=== PATIENT | female | born 1970 | race African-American/Black ===

== ENCOUNTER 2016-08-04 09:28 | Inpatient (IN) | payer OTHER ==
[~2016-08-04] VITALS: Ht 162.6 cm; Wt 68.0 kg
[2016-08-04] VITALS (13 sets, daily range): BP systolic 88–131; BP diastolic 39–85
[~2016-08-04 09:28] MED LIST: ATORVASTATIN CA20 MG ORAL; CARAFATE1 G1 ORAL; CYMBALTA20 MG ORAL; DIFLUCAN100 MG ORAL; DULOXETINE HCL60 MG; GABAPENTIN300 MG; HUMALOG100 UNIT/4 SUBQ; LANTUS5 UNITS SUBQ; LEVEMIR FL100 UNIT/1 SUBQ; LEXAPRO20 MG ORAL; LISINOPRIL5 MG ORAL; Lidocaine Hcl ORAL; NORCO 5-325 TA1 EACH ORAL; NORVASC5 MG ORAL; NOVOLOG MI100 UNIT/3 SUBQ; PANTOPRAZOLE SO20 MG; PRINIVIL20 MG ORAL; PROTONIX40 M2 GT; PROTONIX40 MG ORAL; ZESTRIL10 MG ORAL; ZOFRAN4 MG ORAL
--- NOTE | 2016-08-04 09:47 | Emergency Room Report ---
History of Present Illness General Chief Complaint: Abnormal Labs Source: EMS Present Illness HPI 45 YO F presents with "high blood sugar" >500 per EMS. EMS states family called 911. Patient didnt want to go to hospital/ER. Took insulin right before EMS arrival. Patient/family not providing additional info now. Are not present in ED. Review of EMR indicates multiple previous admissions for DKA with ICU admission. Allergies: Coded Allergies: No Known Allergies (Unverified , 04/24/14) Patient History Limited by: medical condition Past Medical History: DM Past Surgical History: unable to obtain Pertinent Family History: unable to obtain Nursing Documentation-PMH Hx Hypertension: Yes Hx Pacemaker: No Hx Diabetes: Yes Hx Cancer: No Hx Gastrointestinal Problems: Yes Hx Neurological Problems: No Hx Concentration Difficulty: No Review of Systems All Other Systems: limited - Unable to obtain Physical Exam Vital Signs Date Time Temp Pulse Resp B/P Pulse Ox O2 Delivery O2 Flow Rate FiO2 08/04/16 09:10 97.0 112 21 116/58 100 Room Air Sp02 EP Interpretation: reviewed, abnormal General Appearance: normal inspection, non-toxic, mild distress, lethargic, other - Patient responds to verbal stimuli, looks at me, moans, closes eyes Head: normocephalic, atraumatic Eyes: bilateral eye EOMI, bilateral eye PERRL ENT: normal ENT inspection, hearing grossly normal, normal pharynx, no angioedema, normal voice, uvula midline, moist mucus membranes Neck: normal inspection, full range of motion, supple, no meningismus, no bony tend Respiratory: normal inspection, lungs clear, normal breath sounds, no respiratory distress, no retraction, no wheezing Cardiovascular #1: normal peripheral pulses, regular rate, rhythm, no edema, tachycardia Gastrointestinal: normal inspection, normal bowel sounds, non tender, soft, no mass, no guarding, no hernia Genitourinary: no CVA tenderness Musculoskeletal: normal inspection, back normal, normal range of motion, Dontrell' s Sign negative Neurologic: normal inspection, responsive, educational speech language clinician III-XII nml as tested Skin: normal inspection, normal color, no rash Procedures Critical Care Time Critical Care Time CC time 30 minutes Care for a 45YOF with known IDDM and multiple admissions for DKA for elevated glucose, likely DKA Patient is altered. VS stable, mild tachycardia. Afebrile DDx includes infection as cause, non-compliance Patient is disoriented, no obvious sign of trauma. Comprehensive physical exam completed, atraumatic. Unreliable history from patient. Labs include toxicology and chem panel, EKG 12 lead and constant cardiac rhythm strip monitoring, IV established. Airway adequately maintained by patient upon arrival. EKG reveals NSR with sinus tachycardia Peripheral IV access established with wide bore IV boluses running Will give empiric insulin dose given history of DKA, patient too critical to wait for delay from lab to produce CMP Physician spent 30 minutes of direct critical care time monitoring patient's respiratory, cardiac and neurological status, reassessment, review of imaging, labs and discussion with attending hospitalist. Does not include procedures Medical Decision Making Diagnostic Impression: Primary Impression: Acidosis, metabolic Additional Impressions: DKA (diabetic ketoacidoses) Qualified Codes: E13.10 - Other specified diabetes mellitus with ketoacidosis without coma PERLA (acute kidney injury) Hyperkalemia ER Course A: DKA with PERLA Labs: ABG shows metabolic acidosis. PaO2 is normal. K 6.3, AG 48. SerumCr 4. CXR: No PNA UA: No UTI - 2 amps bicarb given in ED as pH <7 - total of 4L NS bolus given - Insulin 5U given followed by insulin drip - No leuks or fever so unlikely infection as cause of DKA, likely non-compliance Patient maintaining airway in ED Becoming more awake, responsive, asking for ice chips Has wide bore IV in left and also right EJ that I placed Endorsed to Dr Hardin at 1045am for ICU EKG Diagnostic Results Rate: tachycardiac Rhythm: NSR ST Segments: no acute changes Rhythm Strip Diag. Results EP Interpretation: yes Rate: 110 Rhythm: NSR, no PVC's, no ectopy Chest X-Ray Diagnostic Results EP Interpretation: Yes Findings: no consolidation, no effusion, no pneumothorax, no acute cardiopulmonary disease Number of Views: 1 Last Vital Signs Date Time Temp Pulse Resp B/P Pulse Ox O2 Delivery O2 Flow Rate FiO2 08/04/16 09:39 97.0 21 116/58 100 Room Air 08/04/16 09:10 112 Status: improved Disposition: ADMITTED INPATIENT Condition: Critical DEDRICK EL M.D. Aug 04, 2016 09:47
[2016-08-04 10:11] LABS: ABG ALLEN TEST POSITIVE; ABG BASE EXCESS -28.7; ABG PCO2 12.5 mmHg (35.0-45.0)
[2016-08-04 10:19] LABS: MEAN CORPUSCULAR HEMOGLOBIN 29.9 PG (27.0-31.0); MEAN CORPUSCULAR HGB CONC 27.7 G/DL (32.0-36.0); MEAN CORPUSCULAR VOLUME 108 FL (80-99); MEAN PLATELET VOLUME 7.4 FL (6.5-10.1); PLATELET COUNT 369 K/UL (150-450); RED BLOOD COUNT 4.19 M/UL (4.20-5.40); RED CELL DISTRIBUTION WIDTH 17.5 % (11.6-14.8); WHITE BLOOD COUNT 10.3 K/UL (4.8-10.8)
[2016-08-04 10:27] LABS: APPEARANCE,URINE SLIGHTLY CLOUDY; KETONES,URINE 3+ (NEGATIVE); LEUKOCYTE ESTERASE ,URINE NEGATIVE (NEGATIVE); NITRITE,URINE NEGATIVE (NEGATIVE); PH,URINE 5 (4.5-8.0); PROTEIN,URINE 2+ (NEGATIVE); UROBILINOGEN,URINE NORMAL MG/DL (0.0-1.0)
[2016-08-04] MEDS ORDERED: LORazepam Inj 2mg/ml 1ml IV PRN (10:30)
[2016-08-04] MEDS ORDERED: Miralax 17gm pkt ORAL PRN (10:30)
[2016-08-04] MEDS ORDERED: Sodium Bicarbonate 8.4% 50ml Carp IV ONE (10:30)
[2016-08-04] MEDS ORDERED: DuoNeb 0.5-3(2.5)mg/3ml neb HHN PRN (10:30)
[2016-08-04] MEDS ORDERED: Nitroglycerin Subl 0.4mg tab (Bottle Of 25) SL PRN (10:30)
[2016-08-04 10:33] LABS: ALANINE AMINOTRANSFERASE 31 U/L (3-33); ALBUMIN/GLOBULIN RATIO 1.2 (1.0-2.7); ASPARTATE AMINO TRANSFERASE 27 U/L (5-40); CALCIUM 9.1 mg/dL (8.6-10.2); CHLORIDE 81 mEQ/L (98-107); GLOMERULAR FILTRATION RATE 14.8 mL/min (>60); HEMOLYSIS 4; LIPASE 30 U/L (< 60); MAGNESIUM 2.4 mg/dL (1.7-2.5); SODIUM 134 mEQ/L (135-145); TOTAL PROTEIN 7.8 g/dL (6.6-8.7)
[2016-08-04 10:39] LABS: ANION GAP 47 (5-15); BAND NEUTROPHILS % (MANUAL) 0 % (0-8); BASOPHILS % (MANUAL) 0 % (0-2); EOSINOPHILS % (MANUAL) 0 % (0-3); LYMPHOCYTES % (MANUAL) 15 % (20-45); NEUTROPHILS % (MANUAL) 84 % (45-75); PLATELET ESTIMATE ADEQUATE; PLATELET MORPHOLOGY NORMAL; TOTAL CELLS COUNTED 100
[2016-08-04 10:42] LABS: AMORPHOUS SEDIMENT,UR MODERATE /LPF; BACTERIA,URINE FEW /HPF; SQUAMOUS EPITHELIAL CELL,UR MODERATE /LPF (NONE/OCC)
[2016-08-04 10:42] LABS: POTASSIUM 6.3 mEQ/L (3.4-4.9)
[2016-08-04 10:43] LABS: FINE GRANULAR CASTS,URINE 0-2 /LPF
[2016-08-04 10:45] LABS: CARBON DIOXIDE < 6 mEQ/L (20-30)
--- NOTE | 2016-08-04 10:47 | Diagnostic Imaging Report ---
Indication: Dyspnea Comparison: 10 x 16 A single view chest radiograph was obtained. Findings: Cardiac silhouette is enlarged. Findings are stable. Pulmonary vascularity is appropriate. The diaphragmatic contour is smooth and costophrenic angles are sharp. No pleural effusions are identified. The bones are unremarkable. Impression: No acute findings
[2016-08-04] MEDS: Morphine Sulfate 4mg/ml Inj IVP PRN ×2 (11:48→15:43)
[2016-08-04] MEDS: Sucralfate 1gm tab ORAL SCH ×3 (13:28→21:30)
[2016-08-04] MEDS ORDERED: LANTUS SOL100 UNIT/1 SUBQ (14:00)
[2016-08-04] MEDS ORDERED: MELOXICAM10 GM MC (14:00)
[2016-08-04] MEDS: Insulin Rate Change 1 Each MISC PRN ×6 (17:00→22:01)
[2016-08-04] MEDS: Heparin 5000 units/ml inj SUBQ SCH (21:31)
[2016-08-04] MEDS ORDERED: Insulin Rate Change 1 Each MISC PRN (22:45)
[2016-08-04] MEDS: D5 1/2NS 1,000 ML IV SCH (22:56)
[2016-08-05] VITALS (24 sets, daily range): BP systolic 80–131; BP diastolic 26–69
[2016-08-05] MEDS: Morphine Sulfate 4mg/ml Inj IVP PRN ×4 (00:16→21:24)
[2016-08-05] MEDS: Insulin Rate Change 1 Each MISC PRN ×20 (01:18→23:05)
[2016-08-05 06:01] LABS: BASOPHILS % (AUTO) 0.4 % (0.0-2.0); EOSINOPHILS % (AUTO) 0.1 % (0.0-3.0); LYMPHOCYTES % (AUTO) 20.7 % (20.0-45.0); MEAN CORPUSCULAR HEMOGLOBIN 30.9 PG (27.0-31.0); MEAN CORPUSCULAR HGB CONC 31.6 G/DL (32.0-36.0); MEAN CORPUSCULAR VOLUME 98 FL (80-99); MEAN PLATELET VOLUME 7.4 FL (6.5-10.1); MONOCYTES % (AUTO) 8.4 % (1.0-10.0); NEUTROPHILS % (AUTO) 70.4 % (45.0-75.0); PLATELET COUNT 222 K/UL (150-450); RED CELL DISTRIBUTION WIDTH 16.8 % (11.6-14.8); WHITE BLOOD COUNT 8.9 K/UL (4.8-10.8)
[2016-08-05 06:10] LABS: ALBUMIN/GLOBULIN RATIO 1.4 (1.0-2.7); CALCIUM 6.8 mg/dL (8.6-10.2); CHOLESTEROL/HDL RATIO 2.3 (3.3-4.4); CREATININE 4.2 mg/dL (0.5-0.9); GLOMERULAR FILTRATION RATE 13.9 mL/min (>60); POTASSIUM 3.9 mEQ/L (3.4-4.9); TOTAL PROTEIN 5.3 g/dL (6.6-8.7)
[2016-08-05 06:14] LABS: BILIRUBIN,DIRECT 0.1 mg/dL (0.1-0.3); TOTAL PROTEIN 4.8 g/dL (6.6-8.7)
[2016-08-05 06:21] LABS: THYROID STIMULATING HORMONE 2.64 uIU/mL (0.300-4.500)
[2016-08-05] MEDS: D5 1/2NS 1,000 ML IV SCH (07:16)
--- NOTE | 2016-08-05 07:40 | Consultation ---
History of Present Illness General Date patient seen: Aug 05, 2016 Time patient seen: 08:00 Chief Complaint: Abnormal Labs Referring physician: Wilfred Reason for Consultation: critical care management Present Illness HPI 45 y/o female presented high blood sugar, >500 as per EMS. EMS stated that family called 911. Patient didn't want to go to hospital/ER. Patient took insulin right before EMS arrival. Patient with multiple previous admissions for DKA with ICU admission. Workup in ED revealed BS 745 ABG with metabolic acidosis elevated anion gap -29, K-6.3 Creat-4.0 afebrile, no leukocytosis, ECG with ST CXR no acute cardiopulmonary pathology UA + 3 ketones, no evidence of UTI Patient diagnosed with DKA, likely 2 to noncompliance, no evidence of any infection in ED 2 amp of bicarbonate given given 4L NS boluses administered 5 u insulin and then started on insulin drip Afterwards the patient was transferred to ICU for further management of DKA Allergies: Coded Allergies: No Known Allergies (Unverified , 04/24/14) Medication History Scheduled Amlodipine Besylate (Norvasc), 5 MG ORAL DAILY Duloxetine (Cymbalta), 20 MG ORAL DAILY, (Reported) Escitalopram Oxalate* (Lexapro*), 20 MG ORAL DAILY, (Reported) Insulin Detemir (Levemir Flexpen), 26 UNITS SUBQ BEFORE BREAKFAST Insulin Glargine (Lantus), 0 SUBQ BEDTIME, (Reported) Lisinopril (Lisinopril*), 5 MG ORAL DAILY, (Reported) Pantoprazole* (Protonix*), 40 MG ORAL DAILY, (Reported) Sucralfate* (Carafate*), 1 GM ORAL QID Scheduled PRN Hydrocodone Bit/Acetaminophen 5-325* ([place] 5-325*), 1 TAB ORAL Q4H PRN for Severe Pain (Pain Scale 7-10), (Reported) Miscellaneous Medications Insulin Lispro (Humalog), 0 SUBQ, (Reported) Meloxicam (Meloxicam), 10 GM MC, (Reported) Patient History Healthcare decision maker Resuscitation status Full Code Advanced Directive on File Past Medical/Surgical History Past Medical/Surgical History: (1) Esophageal ulcer (2) Anemia (3) Dehydration (4) Hyperosmolar coma (5) Depression (6) GERD (gastroesophageal reflux disease) (7) Diabetic gastroparesis (8) HTN (hypertension) (9) Renal failure (10) Diabetic ketoacidosis, type I (11) Diabetes type 1, uncontrolled Review of Systems Constitutional: Reports: weakness ENT: Reports: no symptoms Respiratory: Reports: no symptoms Cardiovascular: Reports: no symptoms Gastrointestinal: Reports: no symptoms Genitourinary: Reports: other - hx of renal failure in the apst Musculoskeletal: Reports: no symptoms Skin: Reports: no symptoms Psychiatric: Reports: no symptoms Endocrine: Reports: see HPI Hematologic/Lymphatic: Reports: anemia Physical Exam General Appearance: WD/WN, no apparent distress, alert Lines, tubes and drains: peripheral HEENT: normocephalic, atraumatic, anicteric, PERRL Neck: non-tender, supple Respiratory/Chest: chest wall non-tender, lungs clear, normal breath sounds, no respiratory distress, no accessory muscle use Cardiovascular/Chest: normal peripheral pulses, normal rate, regular rhythm - SR on tele , no JVD Abdomen: normal bowel sounds, non tender, soft Skin Exam: normal pigmentation, warm/dry Neurologic: no motor/sensory deficits, alert, oriented x 3, responsive Musculoskeletal: normal muscle bulk Last 24 Hour Vital Signs Date Time Temp Pulse Resp B/P Pulse Ox O2 Delivery O2 Flow Rate FiO2 08/05/16 07:00 93 17 98/46 100 Room Air 08/05/16 06:00 83 17 96/57 98 Room Air 08/05/16 05:00 88 17 103/55 98 Room Air 08/05/16 04:00 97.2 88 18 95/51 98 Room Air 08/05/16 04:00 86 08/05/16 03:00 87 17 97/44 98 Room Air 08/05/16 02:00 90 19 90/39 98 Room Air 08/05/16 01:00 92 19 90/45 100 Room Air 08/05/16 00:00 97.0 94 19 90/38 100 Room Air 08/05/16 00:00 92 08/04/16 23:00 93 19 88/45 100 Room Air 08/04/16 22:00 103 19 131/61 100 Room Air 08/04/16 21:00 96 19 129/78 100 Room Air 08/04/16 20:00 96.4 94 18 107/67 100 Room Air 08/04/16 20:00 95 08/04/16 19:00 97 19 118/58 100 Room Air 08/04/16 18:00 95 19 99/43 100 Room Air 08/04/16 17:00 93 19 104/57 100 Room Air 08/04/16 16:00 94 08/04/16 16:00 96.0 93 28 108/85 100 Room Air 08/04/16 15:50 97 19 103/55 100 Room Air 08/04/16 15:25 96.4 97 19 103/55 100 Room Air 08/04/16 13:32 98 21 102/39 100 Room Air 08/04/16 12:46 97.0 08/04/16 11:56 97.0 93 15 131/79 100 Room Air 08/04/16 10:47 97.0 105 19 102/52 100 Room Air 08/04/16 09:39 97.0 21 116/58 100 Room Air 08/04/16 09:10 97.0 112 21 116/58 100 Room Air Intake and Output 08/04/16 08/05/16 19:00 07:00 Intake Total 4478.14 ml 1595.17 ml Output Total 270 ml 95 ml Balance 4208.14 ml 1500.17 ml Intake Oral 100 ml IV Total 478.14 ml 1495.17 ml Other 4000 ml Output Urine Total 270 ml 95 ml # Bowel Movements 1 Laboratory Tests Test 08/04/16 09:38 08/04/16 10:00 08/04/16 10:24 08/05/16 04:40 White Blood Count 10.3 K/UL (4.8-10.8) 8.9 K/UL (4.8-10.8) Red Blood Count 4.19 M/UL (4.20-5.40) L 2.90 M/UL (4.20-5.40) L Hemoglobin 12.5 G/DL (12.0-16.0) 9.0 G/DL (12.0-16.0) L Hematocrit 45.3 % (37.0-47.0) 28.4 % (37.0-47.0) #L Mean Corpuscular Volume 108 FL (80-99) H 98 FL (80-99) # Mean Corpuscular Hemoglobin 29.9 PG (27.0-31.0) 30.9 PG (27.0-31.0) Mean Corpuscular Hemoglobin Concent 27.7 G/DL (32.0-36.0) L 31.6 G/DL (32.0-36.0) L Red Cell Distribution Width 17.5 % (11.6-14.8) H 16.8 % (11.6-14.8) H Platelet Count 369 K/UL (150-450) 222 K/UL (150-450) Mean Platelet Volume 7.4 FL (6.5-10.1) 7.4 FL (6.5-10.1) Neutrophils (%) (Auto) % (45.0-75.0) 70.4 % (45.0-75.0) Lymphocytes (%) (Auto) % (20.0-45.0) 20.7 % (20.0-45.0) Monocytes (%) (Auto) % (1.0-10.0) 8.4 % (1.0-10.0) Eosinophils (%) (Auto) % (0.0-3.0) 0.1 % (0.0-3.0) Basophils (%) (Auto) % (0.0-2.0) 0.4 % (0.0-2.0) Differential Total Cells Counted 100 Neutrophils % (Manual) 84 % (45-75) H Lymphocytes % (Manual) 15 % (20-45) L Monocytes % (Manual) 1 % (1-10) Eosinophils % (Manual) 0 % (0-3) Basophils % (Manual) 0 % (0-2) Band Neutrophils 0 % (0-8) Platelet Estimate Adequate Platelet Morphology Normal Red Blood Cell Morphology Normal Sodium Level 134 mEQ/L (135-145) L 141 mEQ/L (135-145) Potassium Level 6.3 mEQ/L (3.4-4.9) *H 3.9 mEQ/L (3.4-4.9) Chloride Level 81 mEQ/L (98-107) L 97 mEQ/L (98-107) L Carbon Dioxide Level < 6 mEQ/L (20-30) *L 15 mEQ/L (20-30) L Anion Gap 47 (5-15) H 29 (5-15) H Blood Urea Nitrogen 55 mg/dL (7-23) H 53 mg/dL (7-23) H Creatinine 4.0 mg/dL (0.5-0.9) H 4.2 mg/dL (0.5-0.9) H Estimat Glomerular Filtration Rate 14.8 mL/min (>60) 13.9 mL/min (>60) Glucose Level > 745 mg/dL (74-106) *H 138 mg/dL (74-106) #H Calcium Level 9.1 mg/dL (8.6-10.2) 6.8 mg/dL (8.6-10.2) #L Magnesium Level 2.4 mg/dL (1.7-2.5) Total Bilirubin 0.5 mg/dL (0.0-1.2) 0.3 mg/dL (0.0-1.2) Aspartate Amino Transf (AST/SGOT) 27 U/L (5-40) 44 U/L (5-40) H Alanine Aminotransferase (ALT/SGPT) 31 U/L (3-33) 29 U/L (3-33) Alkaline Phosphatase 115 U/L (35-104) H 73 U/L (35-104) Total Protein 7.8 g/dL (6.6-8.7) 5.3 g/dL (6.6-8.7) #L Albumin 4.4 g/dL (3.5-5.2) 3.1 g/dL (3.5-5.2) L Globulin 3.4 g/dL 2.2 g/dL Albumin/Globulin Ratio 1.2 (1.0-2.7) 1.4 (1.0-2.7) Lipase 30 U/L (< 60) Acetone Level Positive-moderate (NEGATIVE) Arterial Blood pH 6.900 (7.350-7.450) Arterial Blood Partial Pressure CO2 12.5 mmHg (35.0-45.0) *L Arterial Blood Partial Pressure O2 147.7 mmHg (75.0-100.0) H Arterial Blood HCO3 2.4 mmol/L (22.0-26.0) L Arterial Blood Oxygen Saturation 97.6 % (92.0-98.0) Arterial Blood Base Excess -28.7 Pierre Test Positive Urine Color Yellow Urine Appearance Slightly cloudy Urine pH 5 (4.5-8.0) Urine Specific [place] 1.020 (1.005-1.035) Urine Protein 2+ (NEGATIVE) H Urine Glucose (UA) 4+ (NEGATIVE) H Urine Ketones 3+ (NEGATIVE) H Urine Occult Blood Negative (NEGATIVE) Urine Nitrite Negative (NEGATIVE) Urine Bilirubin Negative (NEGATIVE) Urine Urobilinogen Normal MG/DL (0.0-1.0) Urine Leukocyte Esterase Negative (NEGATIVE) Urine RBC 2-4 /HPF (0 - 2) H Urine WBC 2-4 /HPF (0 - 2) Urine Squamous Epithelial Cells Moderate /LPF (NONE/OCC) H Urine Amorphous Sediment Moderate /LPF (NONE) H Urine Bacteria Few /HPF (NONE) Urine Fine Granular Casts 0-2 /LPF (NONE) H Urine HCG, Qualitative Negative Prothrombin Time Pending Prothromb Time International Ratio Pending Activated Partial Thromboplast Time Pending Hemoglobin A1c 11.4 % (< 6.0) H Phosphorus Level 5.0 mg/dL (2.5-4.8) H Direct Bilirubin 0.1 mg/dL (0.1-0.3) Triglycerides Level 126 mg/dL (< 150) Cholesterol Level 150 mg/dL (< 200) LDL Cholesterol 59 mg/dL (60-99) L HDL Cholesterol 66 mg/dL (> 60) H Cholesterol/HDL Ratio 2.3 (3.3-4.4) L Thyroid Stimulating Hormone (TSH) 2.640 uIU/mL (0.300-4.500) Height (Feet): 5 Height (Inches): 4.00 Weight (Pounds): 150 Medications Current Medications Medications (Trade) Dose Ordered Sig/Lizbeth Route PRN Reason Start Time Stop Time Status Last Admin Dose Admin Acetaminophen (Tylenol) 650 mg Q4H PRN ORAL T>100.5 08/04/16 10:30 09/03/16 10:29 Albuterol/ Ipratropium (DuoNeb 0.5-3(2.5)mg/3ml) 3 ml Q4H PRN HHN Shortness of Breath 08/04/16 10:30 08/09/16 10:29 Amlodipine Besylate (Norvasc) 5 mg DAILY ORAL 08/05/16 09:00 09/04/16 08:59 Dextrose (Dextrose 50%) STAT PRN IV Hypoglycemia 08/04/16 10:30 09/03/16 10:29 Dextrose/Sodium Chloride 1,000 ml @ 125 mls/hr Q8H IV 08/04/16 23:00 09/03/16 22:59 08/05/16 07:16 Duloxetine HCl (Cymbalta) 20 mg DAILY ORAL 08/05/16 09:00 09/04/16 08:59 Heparin Sodium (Porcine) (Heparin 5000 units/ml) 5,000 units EVERY 12 HOURS SUBQ 08/04/16 21:00 09/03/16 20:59 08/04/16 21:31 Insulin Human Regular (NovoLIN R) 5 units PRN PRN IV BS 200-299 08/04/16 22:45 09/03/16 22:44 08/05/16 03:18 Insulin Human Regular 10 units 10 units PRN PRN IV BS=>300 08/04/16 22:45 09/03/16 22:44 08/05/16 02:28 Insulin Human Regular/Sodium Chloride (NovoLIN R/ Sodium Chloride) 101 ml @ 0 mls/hr Q24H IV 08/05/16 00:39 09/03/16 23:29 08/05/16 00:46 Lisinopril (Zestril) 5 mg DAILY ORAL 08/05/16 09:00 09/04/16 08:59 Lorazepam (Ativan 2mg/ml 1ml) 2 mg Q2H PRN IV agitation 08/04/16 10:30 08/11/16 10:29 Miscellaneous Medication (Insulin Rate Change) 1 ea PRN PRN MISC To Patient Comfort 08/04/16 17:00 09/03/16 16:59 08/05/16 06:01 Morphine Sulfate (Morphine Sulfate) 4 mg Q4H PRN IVP Severe Pain (Pain Scale 7-10) 08/04/16 10:30 08/11/16 10:29 08/05/16 00:16 Nitroglycerin (Ntg) 0.4 mg Q5M PRN SL Prn Chest Pain 08/04/16 10:30 09/03/16 10:29 Ondansetron HCl (Zofran) 4 mg Q6H PRN IVP Nausea & Vomiting 08/04/16 10:30 09/03/16 10:29 08/04/16 11:44 Polyethylene Glycol (Miralax) 17 gm DAILYPRN PRN ORAL Constipation 08/04/16 10:30 09/03/16 10:29 Sucralfate (Carafate) 1 gm QID ORAL 08/04/16 13:00 09/03/16 12:59 08/04/16 21:30 Assessment/Plan Assessment/Plan ASSESSMENT DKA metabolic acidosis DOOC ARF/ATN with oliguria hx of renal failure in the past hyperkalemia HTN anemia non compliance PLAN OF CARE ICU insulin drip per protocol generous IVF hydration ABG this am dc insulin drip when anion gap closed and change to short and long acting insulin endo eval [id number], clearly not at goal monitor renal parameters, lytes, possibly precipitated by medications ( was on NSAIDS meloxicam and TERRA) K down to 3.9 nephro eval renal US BP management with CCB, dc TERRA, lipid panel stable anemia workup, possibly anemia of chronic renal disease DVT prophylaxis case discussed and evaluated by supervising physician Thomas (Danielle),Jossy PRADO Aug 05, 2016 07:39
[2016-08-05] MEDS: Sucralfate 1gm tab ORAL SCH ×4 (08:22→21:17)
[2016-08-05] MEDS: Heparin 5000 units/ml inj SUBQ SCH ×2 (08:26→21:18)
[2016-08-05 08:41] LABS: HEMOLYSIS 23; IRON 65 ug/dL (37-145); TOTAL IRON BINDING CAPACITY 267 ug/dL (250-400)
[2016-08-05 08:54] LABS: CALCIUM 7.1 mg/dL (8.6-10.2); GLOMERULAR FILTRATION RATE 14.8 mL/min (>60); POTASSIUM 4.5 mEQ/L (3.4-4.9)
[2016-08-05 08:55] LABS: ABG PCO2 35.8 mmHg (35.0-45.0)
[2016-08-05 08:56] LABS: ABG ALLEN TEST POSITIVE
[2016-08-05 09:00] LABS: INR 1.1 (0.9-1.1)
[2016-08-05] MEDS ORDERED: Lisinopril 2.5mg tab ORAL SCH (09:00)
[2016-08-05 09:01] LABS: FERRITIN 102 ng/mL (13-150)
--- NOTE | 2016-08-05 10:55 | Consultation ---
Consult Note Consult Note asked to eval for renal failure- 45 y/o female presented high blood sugar, >500 as per EMS. EMS stated that family called 911. Patient took insulin right before EMS arrival. Patient with multiple previous admissions for DKA with ICU admission. Workup in ED revealed BS 745 ABG with metabolic acidosis K-6.3 Creat-4.0 afebrile, no leukocytosis, CXR no acute cardiopulmonary pathology UA + 3 ketones, no evidence of UTI Patient diagnosed with DKA, likely 2 to noncompliance, no evidence of any infection patient initially managed with fluids and Insulin at ER Afterwards the patient was transferred to ICU for further management of DKA In questioning the patient she was told in the past that had lost some kidney function due to DM , know for 17 years patient interviewed, examined, data review- . Assessment/Plan status: Acute renal failure- in Mar 2016, had normal BUN and Cr Patient on NSAI ( Meloxicam) and Lisinopril 1. Diabetic type 1 2. Diabetic ketoacidosis (CC) 3. History of gastroesophageal reflux disease. 4. Depression. 5. Hypertension. 6. back pain Plan: Keep BP in check- Monitor renal parameters and Chemistries- Urine studies Avoid Nephrotoxics Per orders KYMBERLY SEAMAN Aug 05, 2016 10:55
[2016-08-05] MEDS: D5NS 1,000 ML IV SCH ×2 (11:15→19:19)
--- NOTE | 2016-08-05 13:20 | History & Physical ---
History and Physical History & Physicial Dictated for Int Med-Dr Hardin no. [id number]. CHRISTOS JACOBSEN Aug 05, 2016 13:20
[2016-08-05] MEDS ORDERED: D5NS 1000ml IV ONE (17:35)
--- NOTE | 2016-08-05 20:39 | History and Physical Report ---
DATE OF ADMISSION: 08/04/2016 CHIEF COMPLAINT: The patient is a 45-year-old female, who presents with chief complaint of elevated blood sugars. HISTORY OF PRESENT ILLNESS: The patient has a history of diabetes type 1. The patient has a history of diabetic ketoacidosis. The patient states her blood sugars began running high over the last couple of days. The patient states they have been running over 400. The patient presented to [place] emergency room. Her glucose was found to be greater than 500. The patient was admitted for diabetic ketoacidosis. PAST MEDICAL HISTORY: Significant for: 1. Type 1 diabetes. 2. Hypertension. 3. Major depression. 4. Gastroesophageal reflux disease. PAST SURGICAL HISTORY: The patient denies. ALLERGIES: No known drug allergies. CURRENT MEDICATIONS: 1. Humalog sliding scale with q.a.c. meals. 2. Levemir 18 units subcutaneously at bedtime. 3. Lisinopril 20 mg one tablet p.o. daily. 4. Cymbalta 20 mg one tablet p.o. daily. 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 The patient denies tobacco or alcohol use. REVIEW OF SYSTEMS: Constitutional: The patient denies weight loss or weight gain. The patient denies fevers or chills. HEENT: The patient denies ear or throat pain. Cardiovascular: The patient denies palpitations or chest pain. Chest: The patient denies wheeze or shortness of breath. Abdomen: The patient denies nausea, vomiting, diarrhea, or constipation. Genitourinary: The patient denies dysuria or increased frequency of urination. Neuromuscular: The patient denies seizures or generalized weakness. PHYSICAL EXAMINATION: VITAL SIGNS: Temperature 97.1, respirations 10 to 15, blood pressure 80-115/45-59, and pulse 86 to 88. GENERAL: The patient is well developed and well nourished female, in no apparent distress. HEENT: Eyes, pupils are equal and responsive to light and accommodation. Extraocular movements are intact. NECK: Supple without lymphadenopathy. CHEST: Lungs are clear to auscultation bilaterally without wheezes or rales. CARDIOVASCULAR: Regular rhythm and rate. S1 and S2 normal without murmurs, rubs, or gallops. ABDOMEN: Soft, nontender, and nondistended. Positive bowel sounds. No evidence of hepatosplenomegaly. Currently, no rebound or guarding noted. EXTREMITIES: Negative for clubbing, cyanosis, or edema. RECTAL/GENITAL: Refused. NEUROLOGIC: Cranial nerves II through XII are grossly intact without focal deficits. Motor strength is 5/5 bilaterally. Deep tendon reflexes 2+ plantar. LABORATORY STUDIES: WBC 10.3, hemoglobin 12.5, hematocrit 35.2, and platelets 369,000. Sodium 134, potassium elevated at 6.3, chloride 81, CO2 less than 6, anion gap 47 (elevated), BUN 55, creatinine 4.0, and glucose greater than 745. ASSESSMENT: This is a 45-year-old female: 1. Hyperglycemia. 2. Diabetic ketoacidosis. 3. Acute renal failure. 4. Diabetes type 1. 5. Hypertension. 6. Depression. 7. Gastroesophageal reflux disease. TREATMENT: 1. Hyperglycemia/diabetic ketoacidosis. An endocrinology consultation was obtained with Dr. Hayes. The patient's current blood sugar is 138. The patient is currently on a regular insulin drip. We will follow recommendation of Endocrinology. 2. Renal failure. A nephrology consultation was obtained with Dr. Adriano Styles. Renal failure may be secondary to acute dehydration secondary to diabetic ketoacidosis. The patient is currently receiving intravenous fluids. 3. Hypertension. Continue lisinopril as above. 4. Depression. 5. Gastroesophageal reflux disease. Anastacio Wright M.D. DR: CHEL JOB#: [id number] CC:
[2016-08-06] VITALS (20 sets, daily range): BP systolic 94–161; BP diastolic 44–89
[2016-08-06] MEDS: Insulin Rate Change 1 Each MISC PRN ×8 (00:16→07:01)
[2016-08-06] MEDS ORDERED: D5 1/2NS 1,000 ML IV SCH (02:33)
[2016-08-06 04:35] LABS: EOSINOPHILS % (AUTO) 0.7 % (0.0-3.0); LYMPHOCYTES % (AUTO) 33.5 % (20.0-45.0); MEAN CORPUSCULAR HEMOGLOBIN 30.7 PG (27.0-31.0); MEAN CORPUSCULAR VOLUME 96 FL (80-99); MEAN PLATELET VOLUME 7.1 FL (6.5-10.1); MONOCYTES % (AUTO) 6.4 % (1.0-10.0); NEUTROPHILS % (AUTO) 58.4 % (45.0-75.0); PLATELET COUNT 183 K/UL (150-450); RED CELL DISTRIBUTION WIDTH 16.7 % (11.6-14.8); WHITE BLOOD COUNT 6.1 K/UL (4.8-10.8)
[2016-08-06 05:25] LABS: ALANINE AMINOTRANSFERASE 23 U/L (3-33); ALBUMIN/GLOBULIN RATIO 1.1 (1.0-2.7); ANION GAP 21 (5-15); ASPARTATE AMINO TRANSFERASE 29 U/L (5-40); CALCIUM 6.6 mg/dL (8.6-10.2); CARBON DIOXIDE 16 mEQ/L (20-30); CHLORIDE 101 mEQ/L (98-107); GLOMERULAR FILTRATION RATE 14.8 mL/min (>60); HEMOLYSIS 14; MAGNESIUM 1.6 mg/dL (1.7-2.5); PHOSPHORUS 4.1 mg/dL (2.5-4.8); POTASSIUM 4.5 mEQ/L (3.4-4.9); SODIUM 138 mEQ/L (135-145); TOTAL PROTEIN 5.1 g/dL (6.6-8.7)
[2016-08-06 05:32] LABS: ERYTHROCYTE SEDIMENTATION RATE 26 MM/HR (0-20)
[2016-08-06 06:58] LABS: CRP QUANT < 0.3 mg/dL (< 0.5); URIC ACID 9.3 mg/dL (3.0-7.5)
[2016-08-06] MEDS: Levemir Flexpen SUBQ SCH ×2 (08:08→18:11)
[2016-08-06] MEDS: NovoLOG Insulin Flexpen SUBQ SCH ×4 (08:09→22:18)
[2016-08-06] MEDS: Morphine Sulfate 4mg/ml Inj IVP PRN ×3 (08:38→22:22)
[2016-08-06] MEDS: Sucralfate 1gm tab ORAL SCH (08:38)
[2016-08-06] MEDS: Heparin 5000 units/ml inj SUBQ SCH ×2 (08:40→22:30)
[2016-08-06 09:29] LABS: ABG PCO2 45.1 mmHg (35.0-45.0)
[2016-08-06 09:30] LABS: ABG ALLEN TEST POSITIVE
--- NOTE | 2016-08-06 10:07 | Cardiology Report ---
APPROVED REPORT EKG Measurement Heart [id number] Sinus tachycardia T wave abnormality, consider inferior ischemia Abnormal ECG
--- NOTE | 2016-08-06 10:30 | Internal Med Progress Note ---
Subjective Date of Service: Aug 06, 2016 Physician Name Christos Jacobsen Attending Physician Aries Hardin MD Current Medications Medications (Trade) Dose Ordered Sig/Lizbeth Route PRN Reason Start Time Stop Time Status Last Admin Dose Admin Acetaminophen (Tylenol) 650 mg Q4H PRN ORAL T>100.5 08/04/16 10:30 09/03/16 10:29 Albuterol/ Ipratropium (DuoNeb 0.5-3(2.5)mg/3ml) 3 ml Q4H PRN HHN Shortness of Breath 08/04/16 10:30 08/09/16 10:29 Clonidine HCl (Catapres) 0.1 mg Q4H PRN ORAL SBP>160 08/05/16 11:00 09/04/16 10:59 Dextrose STAT PRN IV Hypoglycemia 08/06/16 02:45 09/05/16 02:44 Dextrose/Sodium Chloride (D5 0.45% NS) 1,000 ml @ 60 mls/hr [id number] IV 08/06/16 02:33 09/05/16 02:32 08/06/16 02:57 Duloxetine HCl (Cymbalta) 20 mg DAILY ORAL 08/05/16 09:00 09/04/16 08:59 08/06/16 08:38 Heparin Sodium (Porcine) (Heparin 5000 units/ml) 5,000 units EVERY 12 HOURS SUBQ 08/04/16 21:00 09/03/16 20:59 08/06/16 08:40 Insulin Aspart (NovoLOG) start today at 0,800 BEFORE MEALS AND HS SUBQ 08/06/16 08:00 09/05/16 07:59 08/06/16 08:09 Insulin Detemir (Levemir) 18 units BID@0800,1800 SUBQ 08/06/16 08:00 09/05/16 07:59 08/06/16 08:08 Lorazepam (Ativan 2mg/ml 1ml) 2 mg Q2H PRN IV agitation 08/04/16 10:30 08/11/16 10:29 Morphine Sulfate (Morphine Sulfate) 4 mg Q4H PRN IVP Severe Pain (Pain Scale 7-10) 08/04/16 10:30 08/11/16 10:29 08/06/16 08:38 Nitroglycerin (Ntg) 0.4 mg Q5M PRN SL Prn Chest Pain 08/04/16 10:30 09/03/16 10:29 Ondansetron HCl (Zofran) 4 mg Q6H PRN IVP Nausea & Vomiting 08/04/16 10:30 09/03/16 10:29 08/04/16 11:44 Pantoprazole (Protonix) 40 mg DAILY ORAL 08/05/16 11:00 09/04/16 10:59 08/06/16 08:38 Polyethylene Glycol (Miralax) 17 gm DAILYPRN PRN ORAL Constipation 08/04/16 10:30 09/03/16 10:29 Sucralfate (Carafate) 1 gm QID ORAL 08/04/16 13:00 09/03/16 12:59 08/06/16 08:38 Allergies: Coded Allergies: No Known Allergies (Unverified , 04/24/14) ROS Limited/Unobtainable: No Constitutional: Reports: no symptoms HEENT: Reports: no symptoms Cardiovascular: Reports: no symptoms Respiratory: Reports: no symptoms Gastrointestinal/Abdominal: Reports: no symptoms Genitourinary: Reports: no symptoms Neurologic/Psychiatric: Reports: no symptoms Subjective 45 YO F admitted with hyperglycemia and diabetic ketoacidosis. ICU. Cover for Int Alejo-Dr Hardin Objective Last Vital Signs Date Time Temp Pulse Resp B/P Pulse Ox O2 Delivery O2 Flow Rate FiO2 08/06/16 08:00 83 08/06/16 07:01 18 Room Air 08/06/16 07:00 95/50 97 08/06/16 04:00 98.5 General Appearance: WD/WN, no apparent distress, alert EENT: PERRL/EOMI, normal ENT inspection, TMs normal Neck: non-tender, normal alignment, supple, normal inspection Cardiovascular: normal peripheral pulses, normal rate, regular rhythm, no gallop/murmur, no JVD Respiratory/Chest: chest wall non-tender, lungs clear, normal breath sounds, no respiratory distress, no accessory muscle use Abdomen: normal bowel sounds, non tender, soft, no organomegaly, no mass Extremities: normal range of motion, non-tender Neurologic: director ambulatory II-XII grossly normal, no motor/sensory deficits Skin: normal pigmentation, warm/dry Laboratory Tests Test 08/05/16 11:30 08/06/16 03:00 08/06/16 04:00 08/06/16 09:10 Urine Random Sodium 22 mmol/L White Blood Count 6.1 K/UL (4.8-10.8) Red Blood Count 2.80 M/UL (4.20-5.40) L Hemoglobin 8.6 G/DL (12.0-16.0) L Hematocrit 26.9 % (37.0-47.0) L Mean Corpuscular Volume 96 FL (80-99) Mean Corpuscular Hemoglobin 30.7 PG (27.0-31.0) Mean Corpuscular Hemoglobin Concent 32.0 G/DL (32.0-36.0) Red Cell Distribution Width 16.7 % (11.6-14.8) H Platelet Count 183 K/UL (150-450) Mean Platelet Volume 7.1 FL (6.5-10.1) Neutrophils (%) (Auto) 58.4 % (45.0-75.0) Lymphocytes (%) (Auto) 33.5 % (20.0-45.0) Monocytes (%) (Auto) 6.4 % (1.0-10.0) Eosinophils (%) (Auto) 0.7 % (0.0-3.0) Basophils (%) (Auto) 1.0 % (0.0-2.0) Erythrocyte Sedimentation Rate 26 MM/HR (0-20) H Sodium Level 138 mEQ/L (135-145) Potassium Level 4.5 mEQ/L (3.4-4.9) Chloride Level 101 mEQ/L (98-107) Carbon Dioxide Level 16 mEQ/L (20-30) L Anion Gap 21 (5-15) H Blood Urea Nitrogen 47 mg/dL (7-23) H Creatinine 4.0 mg/dL (0.5-0.9) H Estimat Glomerular Filtration Rate 14.8 mL/min (>60) Glucose Level 104 mg/dL (74-106) Uric Acid 9.3 mg/dL (3.0-7.5) H Calcium Level 6.6 mg/dL (8.6-10.2) L Phosphorus Level 4.1 mg/dL (2.5-4.8) Magnesium Level 1.6 mg/dL (1.7-2.5) L Total Bilirubin < 0.2 mg/dL (0.0-1.2) Gamma Glutamyl Transpeptidase 45 U/L (5-36) H Aspartate Amino Transf (AST/SGOT) 29 U/L (5-40) Alanine Aminotransferase (ALT/SGPT) 23 U/L (3-33) Alkaline Phosphatase 71 U/L (35-104) Total Creatine Kinase 319 U/L (26-140) H C-Reactive Protein, Quantitative < 0.3 mg/dL (< 0.5) Pro-B-Type Natriuretic Peptide 1019 pg/mL (0-125) H Total Protein 5.1 g/dL (6.6-8.7) L Albumin 2.7 g/dL (3.5-5.2) L Globulin 2.4 g/dL Albumin/Globulin Ratio 1.1 (1.0-2.7) Urine Eosinophils None seen Arterial Blood pH 7.276 (7.350-7.450) Arterial Blood Partial Pressure CO2 45.1 mmHg (35.0-45.0) H Arterial Blood Partial Pressure O2 54.3 mmHg (75.0-100.0) L Arterial Blood HCO3 20.5 mmol/L (22.0-26.0) L Arterial Blood Oxygen Saturation 86.0 % (92.0-98.0) L Arterial Blood Base Excess -6.0 Pierre Test Positive Microbiology Date/Time Source Procedure Growth Status 08/04/16 11:51 Nasal Nares MRSA Culture - Final NO METHICILLIN RESISTANT STAPH AUREUS... Complete 08/04/16 11:51 Rectum VRE Culture - Final NO VANCOMYCIN RESISTANT ENTEROCOCCUS ... Complete Intake and Output 08/05/16 08/06/16 19:00 07:00 Intake Total 1296.45 ml 1123.21 ml Output Total 85 ml 110 ml Balance 1211.45 ml 1013.21 ml IV Total 1236.45 ml 1123.21 ml Other 60 ml Output Urine Total 85 ml 110 ml Assessment/Plan Problem List: (1) Diabetes type 1, uncontrolled Assessment & Plan: Await endocrinology consult-Dr Syed covering for Dr Hayes. Reg insulin drip discontinued; cont novolog sliding scale and levemir (2) Diabetic ketoacidosis, type I (3) HTN (hypertension) Assessment & Plan: Continue prn clonidine. (4) ARF (acute renal failure) Assessment & Plan: See nephrology note. (5) GERD (gastroesophageal reflux disease) (6) Depression Assessment & Plan: Cont cymbalta. Status: not improved CHRISTOS JACOBSEN Aug 06, 2016 10:30
--- NOTE | 2016-08-06 10:54 | Diagnostic Imaging Report ---
Indication:Flank pain. Acute renal failure Technique: Grayscale and duplex Doppler imaging of the kidneys performed. Comparison: None Findings: The size, contour, and echogenicity of both kidneys are within normal limits. There is no hydronephrosis. The IVC and urinary bladder are unremarkable. Both kidneys are about 11 cm in length. Impression: Negative examination
--- NOTE | 2016-08-06 10:58 | Diagnostic Imaging Report ---
Indication: Chest Pain Comparison: 08/04/16 A single view chest radiograph was obtained. Findings: Cardiomediastinal appearance is within normal limits for age. Pulmonary vascularity is appropriate. The diaphragmatic contour is smooth and costophrenic angles are sharp. No pleural effusions are identified. The bones are unremarkable. Impression: No acute findings
--- NOTE | 2016-08-06 10:59 | Pulmonolgy Critical Care Note ---
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8 84 26 117/70 98 Room Air 08/06/16 00:00 99 08/05/16 23:00 87 26 93/50 97 Room Air 08/05/16 22:00 86 34 104/59 96 Room Air 08/05/16 21:00 84 26 104/69 97 Room Air 08/05/16 20:00 85 08/05/16 20:00 97.2 85 25 97/58 98 Room Air 08/05/16 19:21 82 18 Room Air 08/05/16 19:00 87 27 100/51 94 Room Air 08/05/16 18:00 80 24 83/26 94 Room Air 08/05/16 17:00 88 18 104/59 97 Room Air 08/05/16 16:00 90 08/05/16 16:00 97.3 90 13 123/69 99 Room Air 08/05/16 15:00 86 10 90/48 98 Room Air 08/05/16 14:00 89 14 86/42 97 Room Air 08/05/16 13:00 94 14 98/46 99 Room Air 08/05/16 12:00 88 08/05/16 12:00 97.1 86 10 80/45 98 Room Air 08/05/16 11:49 97.7 08/05/16 11:00 93 15 115/59 100 Room Air Status: awake Condition: improving HEENT: atraumatic, normocephalic Lungs: chest wall tender Heart: HR/BP stable, HR/BP unstable Abdomen: soft, non-tender, active bowel sounds, feeding tube Extremities: no C/C/E, edema Micro: Microbiology Date/Time Source Procedure Growth Status 08/04/16 11:51 Nasal Nares MRSA Culture - Final NO METHICILLIN RESISTANT STAPH AUREUS... Complete 08/04/16 11:51 Rectum VRE Culture - Final NO VANCOMYCIN RESISTANT ENTEROCOCCUS ... Complete Accucheck: 112 Critical Care - Subjective ROS Limited/Unobtainable: No ICU Day: 3 Interval Events: doing much better, eating EKG Rhythm: Sinus Rhythm Fluids: d5 1/2 60 cc hour Drips: Insulin drip I&O: Intake and Output 08/05/16 08/06/16 19:00 07:00 Intake Total 1296.45 ml 1123.21 ml Output Total 85 ml 110 ml Balance 1211.45 ml 1013.21 ml IV Total 1236.45 ml 1123.21 ml Other 60 ml Output Urine Total 85 ml 110 ml CXR: no change Labs: Laboratory Tests Test 08/05/16 11:30 08/06/16 03:00 08/06/16 04:00 08/06/16 09:10 Urine Random Sodium 22 mmol/L White Blood Count 6.1 K/UL (4.8-10.8) Red Blood Count 2.80 M/UL (4.20-5.40) L Hemoglobin 8.6 G/DL (12.0-16.0) L Hematocrit 26.9 % (37.0-47.0) L Mean Corpuscular Volume 96 FL (80-99) Mean Corpuscular Hemoglobin 30.7 PG (27.0-31.0) Mean Corpuscular Hemoglobin Concent 32.0 G/DL (32.0-36.0) Red Cell Distribution Width 16.7 % (11.6-14.8) H Platelet Count 183 K/UL (150-450) Mean Platelet Volume 7.1 FL (6.5-10.1) Neutrophils (%) (Auto) 58.4 % (45.0-75.0) Lymphocytes (%) (Auto) 33.5 % (20.0-45.0) Monocytes (%) (Auto) 6.4 % (1.0-10.0) Eosinophils (%) (Auto) 0.7 % (0.0-3.0) Basophils (%) (Auto) 1.0 % (0.0-2.0) Erythrocyte Sedimentation Rate 26 MM/HR (0-20) H Sodium Level 138 mEQ/L (135-145) Potassium Level 4.5 mEQ/L (3.4-4.9) Chloride Level 101 mEQ/L (98-107) Carbon Dioxide Level 16 mEQ/L (20-30) L Anion Gap 21 (5-15) H Blood Urea Nitrogen 47 mg/dL (7-23) H Creatinine 4.0 mg/dL (0.5-0.9) H Estimat Glomerular Filtration Rate 14.8 mL/min (>60) Glucose Level 104 mg/dL (74-106) Uric Acid 9.3 mg/dL (3.0-7.5) H Calcium Level 6.6 mg/dL (8.6-10.2) L Phosphorus Level 4.1 mg/dL (2.5-4.8) Magnesium Level 1.6 mg/dL (1.7-2.5) L Total Bilirubin < 0.2 mg/dL (0.0-1.2) Gamma Glutamyl Transpeptidase 45 U/L (5-36) H Aspartate Amino Transf (AST/SGOT) 29 U/L (5-40) Alanine Aminotransferase (ALT/SGPT) 23 U/L (3-33) Alkaline Phosphatase 71 U/L (35-104) Total Creatine Kinase 319 U/L (26-140) H C-Reactive Protein, Quantitative < 0.3 mg/dL (< 0.5) Pro-B-Type Natriuretic Peptide 1019 pg/mL (0-125) H Total Protein 5.1 g/dL (6.6-8.7) L Albumin 2.7 g/dL (3.5-5.2) L Globulin 2.4 g/dL Albumin/Globulin Ratio 1.1 (1.0-2.7) Urine Eosinophils None seen Arterial Blood pH 7.276 (7.350-7.450) Arterial Blood Partial Pressure CO2 45.1 mmHg (35.0-45.0) H Arterial Blood Partial Pressure O2 54.3 mmHg (75.0-100.0) L Arterial Blood HCO3 20.5 mmol/L (22.0-26.0) L Arterial Blood Oxygen Saturation 86.0 % (92.0-98.0) L Arterial Blood Base Excess -6.0 Pierre Test Positive VANESSA SAGASTUME Aug 06, 2016 10:59
--- NOTE | 2016-08-06 11:30 | General Progress Note ---
Assessment/Plan Status: unchanged Status Narrative Cr 4 , unchanged Assessment/Plan status: Acute renal failure- in Mar 2016, had normal BUN and Cr Patient on NSAI ( Meloxicam) and Lisinopril 1. Diabetic type 1 2. Diabetic ketoacidosis (CC) 3. History of gastroesophageal reflux disease. 4. Depression. 5. Hypertension. 6. back pain Plan: Keep BP in check- fluid challenge- Monitor renal parameters and Chemistries- Urine studies Avoid Nephrotoxics Per orders Subjective ROS Limited/Unobtainable: No Constitutional: Reports: malaise Allergies: Coded Allergies: No Known Allergies (Unverified , 04/24/14) Objective Last 24 Hour Vital Signs Date Time Temp Pulse Resp B/P Pulse Ox O2 Delivery O2 Flow Rate FiO2 08/06/16 08:00 83 08/06/16 07:01 80 18 Room Air 08/06/16 07:00 84 26 95/50 97 Room Air 08/06/16 06:00 83 26 122/66 97 Room Air 08/06/16 05:00 86 26 95/51 97 Room Air 08/06/16 04:00 88 26 97/46 97 Room Air 08/06/16 04:00 98.5 88 26 97/46 97 Room Air 08/06/16 04:00 80 08/06/16 03:00 85 26 94/44 97 Room Air 08/06/16 02:00 83 26 101/76 97 Room Air 08/06/16 01:00 84 24 94/64 97 Room Air 08/06/16 00:00 98.8 84 26 117/70 98 Room Air 08/06/16 00:00 99 08/05/16 23:00 87 26 93/50 97 Room Air 08/05/16 22:00 86 34 104/59 96 Room Air 08/05/16 21:00 84 26 104/69 97 Room Air 08/05/16 20:00 85 08/05/16 20:00 97.2 85 25 97/58 98 Room Air 08/05/16 19:21 82 18 Room Air 08/05/16 19:00 87 27 100/51 94 Room Air 08/05/16 18:00 80 24 83/26 94 Room Air 08/05/16 17:00 88 18 104/59 97 Room Air 08/05/16 16:00 90 08/05/16 16:00 97.3 90 13 123/69 99 Room Air 08/05/16 15:00 86 10 90/48 98 Room Air 08/05/16 14:00 89 14 86/42 97 Room Air 08/05/16 13:00 94 14 98/46 99 Room Air 08/05/16 12:00 88 08/05/16 12:00 97.1 86 10 80/45 98 Room Air 08/05/16 11:49 97.7 Intake and Output 08/05/16 08/06/16 19:00 07:00 Intake Total 1296.45 ml 1123.21 ml Output Total 85 ml 110 ml Balance 1211.45 ml 1013.21 ml IV Total 1236.45 ml 1123.21 ml Other 60 ml Output Urine Total 85 ml 110 ml Laboratory Tests 08/05/16 11:30: Urine Random Sodium 22 08/06/16 03:00: White Blood Count 6.1, Red Blood Count 2.80L, Hemoglobin 8.6L, Hematocrit 26.9L , Mean Corpuscular Volume 96, Mean Corpuscular Hemoglobin 30.7, Mean Corpuscular Hemoglobin Concent 32.0, Red Cell Distribution Width 16.7H, Platelet Count 183, Mean Platelet Volume 7.1, Neutrophils (%) (Auto) 58.4, Lymphocytes (%) (Auto) 33.5, Monocytes (%) (Auto) 6.4, Eosinophils (%) (Auto) 0.7, Basophils (%) (Auto) 1.0, Erythrocyte Sedimentation Rate 26H, Sodium Level 138, Potassium Level 4.5, Chloride Level 101, Carbon Dioxide Level 16L, Anion Gap 21H, Blood Urea Nitrogen 47H, Creatinine 4.0H, Estimat Glomerular Filtration Rate 14.8, Glucose Level 104, Uric Acid 9.3H, Calcium Level 6.6L, Phosphorus Level 4.1, Magnesium Level 1.6L, Total Bilirubin < 0.2, Gamma Glutamyl Transpeptidase 45H, Aspartate Amino Transf (AST/SGOT) 29, Alanine Aminotransferase (ALT/SGPT) 23, Alkaline Phosphatase 71, Total Creatine Kinase 319H, C-Reactive Protein, Quantitative < 0.3, Pro-B-Type Natriuretic Peptide 1019H, Total Protein 5.1L, Albumin 2.7L, Globulin 2.4, Albumin/Globulin Ratio 1.1 08/06/16 04:00: Urine Eosinophils None seen 08/06/16 09:10: Arterial Blood pH 7.276L, Arterial Blood Partial Pressure CO2 45.1H, Arterial Blood Partial Pressure O2 54.3L, Arterial Blood HCO3 20.5L, Arterial Blood Oxygen Saturation 86.0L, Arterial Blood Base Excess -6.0, Pierre Test Positive Height (Feet): 5 Height (Inches): 4.00 Weight (Pounds): 150 General Appearance: no apparent distress Cardiovascular: regular rhythm Respiratory/Chest: lungs clear Abdomen: soft Objective other PE not changed KYMBERLY SEAMAN Aug 06, 2016 11:30
[2016-08-06] MEDS: D5 1/2NS 1,000 ML IV SCH ×3 (12:00→19:00)
[2016-08-06] MEDS ORDERED: D5 1/2NS 1000ml IV ONE ×2 (17:12→17:23)
[2016-08-06] MEDS ORDERED: D5NS 1000ml IV ONE (17:23)
[2016-08-06] MEDS ORDERED: Miralax 17gm pkt ORAL PRN (19:00)
[2016-08-06] MEDS ORDERED: LORazepam Inj 2mg/ml 1ml IV PRN (19:00)
[2016-08-06] MEDS ORDERED: Nitroglycerin Subl 0.4mg tab (Bottle Of 25) SL PRN (19:00)
[2016-08-06] MEDS ORDERED: DuoNeb 0.5-3(2.5)mg/3ml neb HHN PRN (19:00)
[2016-08-07] VITALS: BP 154/92
[2016-08-07] MEDS: Morphine Sulfate 4mg/ml Inj IVP PRN ×4 (02:55→20:19)
[2016-08-07 03:59] VITALS: BP 148/81
[2016-08-07] MEDS: D5 1/2NS 1,000 ML IV SCH (05:22)
[2016-08-07] MEDS: NovoLOG Insulin Flexpen SUBQ SCH ×7 (06:26→21:00)
--- NOTE | 2016-08-07 06:52 | General Progress Note ---
Assessment/Plan Problem List: (1) PERLA (acute kidney injury) ICD Codes: N17.9 - Acute kidney failure, unspecified SNOMED: 34593372 (2) Diabetic ketoacidosis, type I ICD Codes: E10.10 - Ketoacidosis in patient with type 1 diabetes mellitus SNOMED: 934122975 (3) HTN (hypertension) ICD Codes: I10 - HTN (hypertension) SNOMED: 80356020 (4) Diabetic gastroparesis ICD Codes: E11.43 - Diabetic gastroparesis SNOMED: 60004957 (5) Diabetes type 1, uncontrolled ICD Codes: E10.65 - Type 1 diabetes mellitus with hyperglycemia SNOMED: 369531700, 499542582 Assessment/Plan change Levemir to 12 units bid add Novolog 5 units ac tid continue sliding scale continue IVF Subjective Allergies: Coded Allergies: No Known Allergies (Unverified , 04/24/14) All Systems: reviewed and negative except above Subjective events noted - p/w DKA evaluated by Dr Syed over the weekend she is resting now Objective Last 24 Hour Vital Signs Date Time Temp Pulse Resp B/P Pulse Ox O2 Delivery O2 Flow Rate FiO2 08/07/16 03:59 97.3 93 18 148/81 98 Room Air 08/07/16 03:25 97.3 08/07/16 00:00 97.3 87 18 154/92 94 Room Air 08/06/16 20:00 98.7 85 19 141/81 96 Room Air 08/06/16 19:00 85 18 Room Air 08/06/16 18:00 91 24 139/87 97 Room Air 08/06/16 17:38 97.0 08/06/16 17:00 98 20 160/89 97 Room Air 08/06/16 16:00 93 08/06/16 16:00 97.0 92 19 161/86 97 Room Air 08/06/16 15:00 87 20 135/78 97 Room Air 08/06/16 14:00 87 20 131/73 97 Room Air 08/06/16 13:00 84 20 142/74 97 Room Air 08/06/16 12:00 86 08/06/16 12:00 98.1 85 24 130/78 97 Room Air 08/06/16 11:00 85 24 128/67 95 Room Air 08/06/16 10:00 87 24 122/61 95 Room Air 08/06/16 09:00 89 24 126/58 95 Room Air 08/06/16 08:00 98.2 80 17 101/57 98 Room Air 08/06/16 08:00 83 08/06/16 07:01 80 18 Room Air 08/06/16 07:00 84 26 95/50 97 Room Air Intake and Output 08/06/16 08/07/16 19:00 07:00 Intake Total 890 ml Output Total 885 ml 1300 ml Balance 5 ml -1300 ml Intake Oral 150 ml IV Total 740 ml Output Urine Total 885 ml 1300 ml Laboratory Tests 08/06/16 09:10: Arterial Blood pH 7.276L, Arterial Blood Partial Pressure CO2 45.1H, Arterial Blood Partial Pressure O2 54.3L, Arterial Blood HCO3 20.5L, Arterial Blood Oxygen Saturation 86.0L, Arterial Blood Base Excess -6.0, Pierre Test Positive 08/07/16 03:20: Urine Eosinophils [Pending] Height (Feet): 5 Height (Inches): 4.00 Weight (Pounds): 150 General Appearance: no apparent distress Neck: normal alignment Cardiovascular: normal rate Respiratory/Chest: lungs clear Abdomen: normal bowel sounds Objective Current Medications Medications (Trade) Dose Ordered Sig/Lizbeth Route PRN Reason Start Time Stop Time Status Last Admin Dose Admin Acetaminophen (Tylenol) 650 mg Q4H PRN ORAL T>100.5 08/06/16 19:00 09/05/16 18:59 Albuterol/ Ipratropium (DuoNeb 0.5-3(2.5)mg/3ml) 3 ml Q4H PRN HHN Shortness of Breath 08/06/16 19:00 08/11/16 18:59 Clonidine HCl (Catapres) 0.1 mg Q4H PRN ORAL SBP>160 08/06/16 19:00 09/05/16 18:59 Dextrose (Dextrose 50%) STAT PRN IV Hypoglycemia 08/06/16 19:00 09/05/16 18:59 Dextrose/Sodium Chloride (D5 0.45% NS) 1,000 ml @ 100 mls/hr Q10H IV 08/06/16 19:00 09/05/16 18:59 08/07/16 05:22 Duloxetine HCl (Cymbalta) 20 mg DAILY ORAL 08/07/16 09:00 09/06/16 08:59 Heparin Sodium (Porcine) (Heparin 5000 units/ml) 5,000 units EVERY 12 HOURS SUBQ 08/06/16 21:00 09/05/16 20:59 08/06/16 22:30 Insulin Aspart (NovoLOG) start today at 0,800 BEFORE MEALS AND HS SUBQ 08/06/16 21:00 09/05/16 20:59 08/07/16 06:26 Insulin Detemir (Levemir) 18 units BID@0800,1800 SUBQ 08/07/16 08:00 09/06/16 07:59 Lorazepam (Ativan 2mg/ml 1ml) 2 mg Q2H PRN IV agitation 08/06/16 19:00 08/13/16 18:59 Morphine Sulfate (Morphine Sulfate) 4 mg Q4H PRN IVP Severe Pain (Pain Scale 7-10) 08/06/16 21:00 08/13/16 20:59 08/07/16 02:55 Nitroglycerin (Ntg) 0.4 mg Q5M PRN SL Prn Chest Pain 08/06/16 19:00 09/05/16 18:59 Ondansetron HCl (Zofran) 4 mg Q6H PRN IVP Nausea & Vomiting 08/06/16 19:00 09/05/16 18:59 Pantoprazole (Protonix) 40 mg BID ORAL 08/07/16 09:00 09/06/16 08:59 Polyethylene Glycol (Miralax) 17 gm DAILYPRN PRN ORAL Constipation 08/06/16 19:00 09/05/16 18:59 08/07/16 05:23 Item Value Date Time Bedside Blood Glucose 229 mg/dl H 08/07/16 06 Bedside Blood Glucose 106 mg/dl 08/06/168 Bedside Blood Glucose 105 mg/dl 08/06/161810 IVY SULLIVAN Aug 07, 2016 06:52
[2016-08-07 08:00] VITALS: BP 178/104
[2016-08-07] MEDS ORDERED: Levemir Flexpen SUBQ SCH ×2 (08:00)
[2016-08-07] MEDS: Heparin 5000 units/ml inj SUBQ SCH ×2 (08:54→20:19)
[2016-08-07 10:00] LABS: BASOPHILS % (AUTO) 1.3 % (0.0-2.0); EOSINOPHILS % (AUTO) 2.1 % (0.0-3.0); LYMPHOCYTES % (AUTO) 29.1 % (20.0-45.0); MEAN CORPUSCULAR HEMOGLOBIN 30.1 PG (27.0-31.0); MEAN CORPUSCULAR HGB CONC 31.3 G/DL (32.0-36.0); MEAN CORPUSCULAR VOLUME 96 FL (80-99); MEAN PLATELET VOLUME 7.5 FL (6.5-10.1); NEUTROPHILS % (AUTO) 59.5 % (45.0-75.0); PLATELET COUNT 166 K/UL (150-450); RED BLOOD COUNT 3.19 M/UL (4.20-5.40); RED CELL DISTRIBUTION WIDTH 16.1 % (11.6-14.8); WHITE BLOOD COUNT 4.1 K/UL (4.8-10.8)
[2016-08-07 10:14] LABS: ALANINE AMINOTRANSFERASE 31 U/L (3-33); ALBUMIN/GLOBULIN RATIO 1.2 (1.0-2.7); ANION GAP 21 (5-15); ASPARTATE AMINO TRANSFERASE 51 U/L (5-40); CALCIUM 6.7 mg/dL (8.6-10.2); CARBON DIOXIDE 19 mEQ/L (20-30); CHLORIDE 99 mEQ/L (98-107); GLOMERULAR FILTRATION RATE 32.8 mL/min (>60); HEMOLYSIS 5; MAGNESIUM 1.9 mg/dL (1.7-2.5); PHOSPHORUS 3.3 mg/dL (2.5-4.8); POTASSIUM 4.4 mEQ/L (3.4-4.9); SODIUM 139 mEQ/L (135-145); TOTAL PROTEIN 5.6 g/dL (6.6-8.7); URIC ACID 8.2 mg/dL (3.0-7.5)
--- NOTE | 2016-08-07 11:48 | General Progress Note ---
Assessment/Plan Status: stable Assessment/Plan status: Acute renal failure- Cr lower 2 in Mar 2016, had normal BUN and Cr Patient on NSAI ( Meloxicam) and Lisinopril 1. Diabetic type 1 2. Diabetic ketoacidosis (CC) 3. History of gastroesophageal reflux disease. 4. Depression. 5. Hypertension. 6. back pain Plan: Keep BP in check- add clonidine IV fluid - Monitor renal parameters and Chemistries- Urine studies Avoid Nephrotoxics Per orders Subjective ROS Limited/Unobtainable: No Allergies: Coded Allergies: No Known Allergies (Unverified , 04/24/14) Objective Last 24 Hour Vital Signs Date Time Temp Pulse Resp B/P Pulse Ox O2 Delivery O2 Flow Rate FiO2 08/07/16 10:46 178/104 08/07/16 09:17 97.3 08/07/16 08:38 88 18 Room Air 08/07/16 08:00 97.3 96 20 178/104 98 Room Air 08/07/16 03:59 97.3 93 18 148/81 98 Room Air 08/07/16 00:00 97.3 87 18 154/92 94 Room Air 08/06/16 20:00 98.7 85 19 141/81 96 Room Air 08/06/16 19:00 85 18 Room Air 08/06/16 18:00 91 24 139/87 97 Room Air 08/06/16 17:38 97.0 08/06/16 17:00 98 20 160/89 97 Room Air 08/06/16 16:00 93 08/06/16 16:00 97.0 92 19 161/86 97 Room Air 08/06/16 15:00 87 20 135/78 97 Room Air 08/06/16 14:00 87 20 131/73 97 Room Air 08/06/16 13:00 84 20 142/74 97 Room Air 08/06/16 12:00 86 08/06/16 12:00 98.1 85 24 130/78 97 Room Air Intake and Output 08/06/16 08/07/16 19:00 07:00 Intake Total 890 ml 100 ml Output Total 885 ml 1300 ml Balance 5 ml -1200 ml Intake Oral 150 ml IV Total 740 ml 100 ml Output Urine Total 885 ml 1300 ml Laboratory Tests 08/07/16 03:20: Urine Eosinophils None seen 08/07/16 09:20: White Blood Count 4.1L, Red Blood Count 3.19L, Hemoglobin 9.6L, Hematocrit 30.6L , Mean Corpuscular Volume 96, Mean Corpuscular Hemoglobin 30.1, Mean Corpuscular Hemoglobin Concent 31.3L, Red Cell Distribution Width 16.1H, Platelet Count 166, Mean Platelet Volume 7.5, Neutrophils (%) (Auto) 59.5, Lymphocytes (%) (Auto) 29.1, Monocytes (%) (Auto) 8.0, Eosinophils (%) (Auto) 2.1, Basophils (%) (Auto) 1.3, Sodium Level 139, Potassium Level 4.4, Chloride Level 99, Carbon Dioxide Level 19L, Anion Gap 21H, Blood Urea Nitrogen 40H, Creatinine 2.0H, Estimat Glomerular Filtration Rate 32.8, Glucose Level 185H, Uric Acid 8.2H, Calcium Level 6.7L, Phosphorus Level 3.3, Magnesium Level 1.9, Total Bilirubin < 0.2, Aspartate Amino Transf (AST/SGOT) 51H, Alanine Aminotransferase (ALT/SGPT) 31, Alkaline Phosphatase 89, Total Protein 5.6L, Albumin 3.1L, Globulin 2.5, Albumin/Globulin Ratio 1.2 Height (Feet): 5 Height (Inches): 4.00 Weight (Pounds): 150 General Appearance: no apparent distress Cardiovascular: normal rate Respiratory/Chest: lungs clear Abdomen: soft Objective other PE not changed KYMBERLY SEAMAN Aug 07, 2016 11:48
[2016-08-07 12:00] VITALS: BP 151/97
[2016-08-07] MEDS ORDERED: Vitamin D 50,000 units cap ORAL SCH (12:00)
[2016-08-07] MEDS ORDERED: D5 1/2NS 1,000 ML IV SCH (12:00)
[2016-08-07] MEDS ORDERED: Calcium Gluconate 10% 1 GM in NS 110 ML IVPB ONE (13:00)
[2016-08-07] MEDS: Levemir Flexpen SUBQ SCH ×2 (13:35→21:00)
--- NOTE | 2016-08-07 15:58 | Internal Med Progress Note ---
Subjective Date of Service: Aug 07, 2016 Physician Name Christos Jacobsen Attending Physician Aries Hardin MD Current Medications Medications (Trade) Dose Ordered Sig/Lizbeth Route PRN Reason Start Time Stop Time Status Last Admin Dose Admin Acetaminophen (Tylenol) 650 mg Q4H PRN ORAL T>100.5 08/06/16 19:00 09/05/16 18:59 Albuterol/ Ipratropium (DuoNeb 0.5-3(2.5)mg/3ml) 3 ml Q4H PRN HHN Shortness of Breath 08/06/16 19:00 08/11/16 18:59 Clonidine HCl (Catapres) 0.1 mg EVERY 8 HOURS ORAL 08/07/16 14:00 09/06/16 13:59 08/07/16 13:31 Clonidine HCl (Catapres) 0.1 mg Q4H PRN ORAL SBP>160 08/06/16 19:00 09/05/16 18:59 08/07/16 10:46 Dextrose (Dextrose 50%) STAT PRN IV Hypoglycemia 08/06/16 19:00 09/05/16 18:59 Dextrose/Sodium Chloride (D5 0.45% NS) 1,000 ml @ 50 mls/hr Q20H IV 08/07/16 12:00 09/06/16 11:59 08/07/16 12:28 Duloxetine HCl (Cymbalta) 20 mg DAILY ORAL 08/07/16 09:00 09/06/16 08:59 08/07/16 08:47 Ergocalciferol (Drisdol) 50,000 intlu QWEEK ORAL 08/07/16 12:00 09/06/16 11:59 08/07/16 13:31 Heparin Sodium (Porcine) (Heparin 5000 units/ml) 5,000 units EVERY 12 HOURS SUBQ 08/06/16 21:00 09/05/16 20:59 08/07/16 08:54 Insulin Aspart (NovoLOG) 5 units NOVOTIAC SUBQ 08/07/16 08:00 09/06/16 07:59 08/07/16 11:49 Insulin Aspart (NovoLOG) start today at 0,800 BEFORE MEALS AND HS SUBQ 08/06/16 21:00 09/05/16 20:59 08/07/16 11:48 Insulin Detemir 12 units 12 units BID@0800,1800 SUBQ 08/07/16 12:00 09/06/16 11:59 08/07/16 13:35 Lorazepam (Ativan 2mg/ml 1ml) 2 mg Q2H PRN IV agitation 08/06/16 19:00 08/13/16 18:59 Morphine Sulfate (Morphine Sulfate) 4 mg Q4H PRN IVP Severe Pain (Pain Scale 7-10) 08/06/16 21:00 08/13/16 20:59 08/07/16 15:17 Nitroglycerin (Ntg) 0.4 mg Q5M PRN SL Prn Chest Pain 08/06/16 19:00 09/05/16 18:59 Ondansetron HCl (Zofran) 4 mg Q6H PRN IVP Nausea & Vomiting 08/06/16 19:00 09/05/16 18:59 Pantoprazole (Protonix) 40 mg BID ORAL 08/07/16 09:00 09/06/16 08:59 08/07/16 08:47 Polyethylene Glycol (Miralax) 17 gm DAILYPRN PRN ORAL Constipation 08/06/16 19:00 09/05/16 18:59 08/07/16 05:23 Allergies: Coded Allergies: No Known Allergies (Unverified , 04/24/14) ROS Limited/Unobtainable: No Constitutional: Reports: no symptoms HEENT: Reports: no symptoms Cardiovascular: Reports: no symptoms Genitourinary: Reports: no symptoms Neurologic/Psychiatric: Reports: no symptoms Subjective 45 YO F admitted with hyperglycemia and diabetic ketoacidosis. Cover for Int Alejo -Dr Hardin Objective Last Vital Signs Date Time Temp Pulse Resp B/P Pulse Ox O2 Delivery O2 Flow Rate FiO2 08/07/16 13:31 151/97 08/07/16 12:00 97.3 91 18 95 Room Air Laboratory Tests Test 08/07/16 03:20 08/07/16 09:20 Urine Eosinophils None seen White Blood Count 4.1 K/UL (4.8-10.8) L Red Blood Count 3.19 M/UL (4.20-5.40) L Hemoglobin 9.6 G/DL (12.0-16.0) L Hematocrit 30.6 % (37.0-47.0) L Mean Corpuscular Volume 96 FL (80-99) Mean Corpuscular Hemoglobin 30.1 PG (27.0-31.0) Mean Corpuscular Hemoglobin Concent 31.3 G/DL (32.0-36.0) L Red Cell Distribution Width 16.1 % (11.6-14.8) H Platelet Count 166 K/UL (150-450) Mean Platelet Volume 7.5 FL (6.5-10.1) Neutrophils (%) (Auto) 59.5 % (45.0-75.0) Lymphocytes (%) (Auto) 29.1 % (20.0-45.0) Monocytes (%) (Auto) 8.0 % (1.0-10.0) Eosinophils (%) (Auto) 2.1 % (0.0-3.0) Basophils (%) (Auto) 1.3 % (0.0-2.0) Sodium Level 139 mEQ/L (135-145) Potassium Level 4.4 mEQ/L (3.4-4.9) Chloride Level 99 mEQ/L (98-107) Carbon Dioxide Level 19 mEQ/L (20-30) L Anion Gap 21 (5-15) H Blood Urea Nitrogen 40 mg/dL (7-23) H Creatinine 2.0 mg/dL (0.5-0.9) H Estimat Glomerular Filtration Rate 32.8 mL/min (>60) Glucose Level 185 mg/dL (74-106) H Uric Acid 8.2 mg/dL (3.0-7.5) H Calcium Level 6.7 mg/dL (8.6-10.2) L Phosphorus Level 3.3 mg/dL (2.5-4.8) Magnesium Level 1.9 mg/dL (1.7-2.5) Total Bilirubin < 0.2 mg/dL (0.0-1.2) Aspartate Amino Transf (AST/SGOT) 51 U/L (5-40) H Alanine Aminotransferase (ALT/SGPT) 31 U/L (3-33) Alkaline Phosphatase 89 U/L (35-104) Total Protein 5.6 g/dL (6.6-8.7) L Albumin 3.1 g/dL (3.5-5.2) L Globulin 2.5 g/dL Albumin/Globulin Ratio 1.2 (1.0-2.7) Intake and Output 08/06/16 08/07/16 19:00 07:00 Intake Total 890 ml 100 ml Output Total 885 ml 1300 ml Balance 5 ml -1200 ml Intake Oral 150 ml IV Total 740 ml 100 ml Output Urine Total 885 ml 1300 ml Objective General Appearance: WD/WN, no apparent distress, alert EENT: PERRL/EOMI, normal ENT inspection, TMs normal Neck: non-tender, normal alignment, supple, normal inspection Cardiovascular: normal peripheral pulses, normal rate, regular rhythm, no gallop/murmur, no JVD Respiratory/Chest: chest wall non-tender, lungs clear, normal breath sounds, no respiratory distress, no accessory muscle use Abdomen: normal bowel sounds, non tender, soft, no organomegaly, no mass Extremities: normal range of motion, non-tender Neurologic: correspondence dictator II-XII grossly normal, no motor/sensory deficits Skin: normal pigmentation, warm/dry L Assessment/Plan Problem List: (1) Diabetes type 1, uncontrolled Assessment & Plan: Await endocrinology consult-Dr Syed covering for Dr Hayes. Reg insulin drip discontinued; cont novolog sliding scale and levemir (2) Diabetic ketoacidosis, type I (3) HTN (hypertension) Assessment & Plan: Continue prn clonidine. (4) ARF (acute renal failure) Assessment & Plan: See nephrology note. (5) GERD (gastroesophageal reflux disease) (6) Depression Assessment & Plan: Cont cymbalta. Status: stable CHRISTOS JACOBSEN Aug 07, 2016 15:58
[2016-08-07 16:00] VITALS: BP 154/89
[2016-08-07] MEDS ORDERED: NS 550ML IV ONE (19:19)
[2016-08-07 20:00] VITALS: BP 141/74
--- NOTE | 2016-08-07 22:43 | Pulmonology Progress Note ---
Assessment/Plan Assessment/Plan Assessment Esophageal ulcer Anemia Dehydration Hyperosmolar coma Depression GERD (gastroesophageal reflux disease) Diabetic gastroparesis HTN (hypertension) PLAN OF CARE ICU insulin drip per protocol generous IVF hydration ABG this am monitor pH dc insulin drip when anion gap closed and change to short and long acting insulin endo eval HgA1c monitor renal parameters, Subjective ROS Limited/Unobtainable: Yes Constitutional: Reports: anorexia, fatigue Respiratory: Reports: dry cough, dyspnea at rest, shortness of breath Cardiovascular: Reports: palpitations Neurologic: Reports: confusion, weakness Allergies: Coded Allergies: No Known Allergies (Unverified , 04/24/14) Objective Last 24 Hour Vital Signs Date Time Temp Pulse Resp B/P Pulse Ox O2 Delivery O2 Flow Rate FiO2 08/07/16 21:13 141/74 08/07/16 20:00 97.5 87 18 141/74 97 Room Air 08/07/16 19:30 86 20 Room Air 21 08/07/16 16:00 97.7 89 16 154/89 99 Room Air 08/07/16 13:31 151/97 08/07/16 12:00 97.3 91 18 151/97 95 Room Air 08/07/16 10:46 178/104 08/07/16 09:17 97.3 08/07/16 08:38 88 18 Room Air 08/07/16 08:00 97.3 96 20 178/104 98 Room Air 08/07/16 03:59 97.3 93 18 148/81 98 Room Air 08/07/16 00:00 97.3 87 18 154/92 94 Room Air Intake and Output 08/06/16 08/07/16 19:00 07:00 Intake Total 890 ml 100 ml Output Total 885 ml 1300 ml Balance 5 ml -1200 ml Intake Oral 150 ml IV Total 740 ml 100 ml Output Urine Total 885 ml 1300 ml General Appearance: no acute distress HEENT: normocephalic, atraumatic, PERRL Respiratory/Chest: chest wall non-tender, normal breath sounds, no respiratory distress Breasts: no masses Cardiovascular: normal peripheral pulses, normal rate, regular rhythm, no JVD Abdomen: normal bowel sounds, soft, non tender, no organomegaly Genitourinary: normal external genitalia Extremities: no cyanosis Skin: no rash, no lesions Neurologic/Psychiatric: practice business asst II-XII grossly normal, no motor/sensory deficits, responsive, disoriented Laboratory Tests 08/07/16 03:20: Urine Eosinophils None seen 08/07/16 09:20: White Blood Count 4.1L, Red Blood Count 3.19L, Hemoglobin 9.6L, Hematocrit 30.6L , Mean Corpuscular Volume 96, Mean Corpuscular Hemoglobin 30.1, Mean Corpuscular Hemoglobin Concent 31.3L, Red Cell Distribution Width 16.1H, Platelet Count 166, Mean Platelet Volume 7.5, Neutrophils (%) (Auto) 59.5, Lymphocytes (%) (Auto) 29.1, Monocytes (%) (Auto) 8.0, Eosinophils (%) (Auto) 2.1, Basophils (%) (Auto) 1.3, Sodium Level 139, Potassium Level 4.4, Chloride Level 99, Carbon Dioxide Level 19L, Anion Gap 21H, Blood Urea Nitrogen 40H, Creatinine 2.0H, Estimat Glomerular Filtration Rate 32.8, Glucose Level 185H, Uric Acid 8.2H, Calcium Level 6.7L, Phosphorus Level 3.3, Magnesium Level 1.9, Total Bilirubin < 0.2, Aspartate Amino Transf (AST/SGOT) 51H, Alanine Aminotransferase (ALT/SGPT) 31, Alkaline Phosphatase 89, Total Protein 5.6L, Albumin 3.1L, Globulin 2.5, Albumin/Globulin Ratio 1.2 Current Medications Medications (Trade) Dose Ordered Sig/Lizbeth Route PRN Reason Start Time Stop Time Status Last Admin Dose Admin Acetaminophen (Tylenol) 650 mg Q4H PRN ORAL T>100.5 08/06/16 19:00 09/05/16 18:59 Albuterol/ Ipratropium (DuoNeb 0.5-3(2.5)mg/3ml) 3 ml Q4H PRN HHN Shortness of Breath 08/06/16 19:00 08/11/16 18:59 Clonidine HCl (Catapres) 0.1 mg EVERY 8 HOURS ORAL 08/07/16 14:00 09/06/16 13:59 08/07/16 21:13 Clonidine HCl (Catapres) 0.1 mg Q4H PRN ORAL SBP>160 08/06/16 19:00 09/05/16 18:59 08/07/16 10:46 Dextrose (Dextrose 50%) STAT PRN IV Hypoglycemia 08/06/16 19:00 09/05/16 18:59 Dextrose/Sodium Chloride (D5 0.45% NS) 1,000 ml @ 50 mls/hr Q20H IV 08/07/16 12:00 09/06/16 11:59 08/07/16 12:28 Duloxetine HCl (Cymbalta) 20 mg DAILY ORAL 08/07/16 09:00 09/06/16 08:59 08/07/16 08:47 Ergocalciferol (Drisdol) 50,000 intlu QWEEK ORAL 08/07/16 12:00 09/06/16 11:59 08/07/16 13:31 Furosemide (Lasix) 20 mg ONCE ONCE IV 08/07/16 22:30 08/07/16 22:31 UNV Heparin Sodium (Porcine) (Heparin 5000 units/ml) 5,000 units EVERY 12 HOURS SUBQ 08/06/16 21:00 09/05/16 20:59 08/07/16 20:19 Insulin Aspart (NovoLOG) 5 units NOVOTIAC SUBQ 08/07/16 08:00 09/06/16 07:59 08/07/16 16:51 Insulin Aspart (NovoLOG) start today at 0,800 BEFORE MEALS AND HS SUBQ 08/06/16 21:00 09/05/16 20:59 08/07/16 16:21 Insulin Detemir 12 units 12 units BID@0800,1800 SUBQ 08/07/16 12:00 09/06/16 11:59 08/07/16 13:35 Lorazepam (Ativan 2mg/ml 1ml) 2 mg Q2H PRN IV agitation 08/06/16 19:00 08/13/16 18:59 Morphine Sulfate (Morphine Sulfate) 4 mg Q4H PRN IVP Severe Pain (Pain Scale 7-10) 08/06/16 21:00 08/13/16 20:59 08/07/16 20:19 Nitroglycerin (Ntg) 0.4 mg Q5M PRN SL Prn Chest Pain 08/06/16 19:00 09/05/16 18:59 Ondansetron HCl (Zofran) 4 mg Q6H PRN IVP Nausea & Vomiting 2/20/17 19:00 09/05/16 18:59 Pantoprazole (Protonix) 40 mg BID ORAL 08/07/16 09:00 09/06/16 08:59 08/07/16 17:37 Polyethylene Glycol (Miralax) 17 gm DAILYPRN PRN ORAL Constipation 08/06/16 19:00 09/05/16 18:59 08/07/16 05:23 VANESSA SAGASTUME Aug 07, 2016 22:43
[2016-08-08] VITALS: BP 133/79
[2016-08-08] MEDS: Morphine Sulfate 4mg/ml Inj IVP PRN ×2 (00:22→09:23)
[2016-08-08 04:00] VITALS: BP 127/71
[2016-08-08] MEDS: NovoLOG Insulin Flexpen SUBQ SCH ×7 (06:33→21:00)
--- NOTE | 2016-08-08 06:43 | General Progress Note ---
Assessment/Plan Problem List: (1) PERLA (acute kidney injury) ICD Codes: N17.9 - Acute kidney failure, unspecified SNOMED: 12868545 (2) Diabetic ketoacidosis, type I ICD Codes: E10.10 - Ketoacidosis in patient with type 1 diabetes mellitus SNOMED: 785053186 (3) HTN (hypertension) ICD Codes: I10 - HTN (hypertension) SNOMED: 24634640 (4) Diabetic gastroparesis ICD Codes: E11.43 - Diabetic gastroparesis SNOMED: 42123850 (5) Diabetes type 1, uncontrolled ICD Codes: E10.65 - Type 1 diabetes mellitus with hyperglycemia SNOMED: 413025888, 773851157 Assessment/Plan change Levemir to 14 units qam only continue Novolog 5 units ac tid continue sliding scale continue IVF insulin pump therapy as OP Subjective Allergies: Coded Allergies: No Known Allergies (Unverified , 04/24/14) All Systems: reviewed and negative except above Subjective feeling better appetite is poor nighttime dose of Levemir was held last night due to BG of 88 this morning glucose is 118 Objective Last 24 Hour Vital Signs Date Time Temp Pulse Resp B/P Pulse Ox O2 Delivery O2 Flow Rate FiO2 08/08/16 06:32 135/79 08/08/16 04:00 97.7 78 20 127/71 98 Room Air 08/08/16 00:52 97.0 08/08/16 00:00 97.0 81 18 133/79 96 Room Air 08/07/16 21:13 141/74 08/07/16 20:00 97.5 87 18 141/74 97 Room Air 08/07/16 19:30 86 20 Room Air 21 08/07/16 16:00 97.7 89 16 154/89 99 Room Air 08/07/16 13:31 151/97 08/07/16 12:00 97.3 91 18 151/97 95 Room Air 08/07/16 10:46 178/104 08/07/16 08:38 88 18 Room Air 08/07/16 08:00 97.3 96 20 178/104 98 Room Air Intake and Output 08/07/16 08/08/16 19:00 07:00 Intake Total 880 ml 570 ml Output Total 500 ml 1650 ml Balance 380 ml -1080 ml Intake Oral 480 ml 120 ml IV Total 400 ml 450 ml Output Urine Total 500 ml 1650 ml # Voids 1 1 Laboratory Tests 08/07/16 09:20: White Blood Count 4.1L, Red Blood Count 3.19L, Hemoglobin 9.6L, Hematocrit 30.6L , Mean Corpuscular Volume 96, Mean Corpuscular Hemoglobin 30.1, Mean Corpuscular Hemoglobin Concent 31.3L, Red Cell Distribution Width 16.1H, Platelet Count 166, Mean Platelet Volume 7.5, Neutrophils (%) (Auto) 59.5, Lymphocytes (%) (Auto) 29.1, Monocytes (%) (Auto) 8.0, Eosinophils (%) (Auto) 2.1, Basophils (%) (Auto) 1.3, Sodium Level 139, Potassium Level 4.4, Chloride Level 99, Carbon Dioxide Level 19L, Anion Gap 21H, Blood Urea Nitrogen 40H, Creatinine 2.0H, Estimat Glomerular Filtration Rate 32.8, Glucose Level 185H, Uric Acid 8.2H, Calcium Level 6.7L, Phosphorus Level 3.3, Magnesium Level 1.9, Total Bilirubin < 0.2, Aspartate Amino Transf (AST/SGOT) 51H, Alanine Aminotransferase (ALT/SGPT) 31, Alkaline Phosphatase 89, Total Protein 5.6L, Albumin 3.1L, Globulin 2.5, Albumin/Globulin Ratio 1.2 08/08/16 05:00: Urine Eosinophils [Pending] Height (Feet): 5 Height (Inches): 4.00 Weight (Pounds): 150 General Appearance: no apparent distress EENT: pale conjunctivae Neck: normal alignment Cardiovascular: regular rhythm Respiratory/Chest: lungs clear Abdomen: normal bowel sounds Pelvis: normal external exam Edema: 1+ Arm (L), 1+ Arm (R), 1+ Leg (L), 1+ Leg (R), 1+ Pedal (L), 1+ Pedal ( R), 1+ Generalized Objective Current Medications Medications (Trade) Dose Ordered Sig/Lizbeth Route PRN Reason Start Time Stop Time Status Last Admin Dose Admin Acetaminophen (Tylenol) 650 mg Q4H PRN ORAL T>100.5 08/06/16 19:00 09/05/16 18:59 Albuterol/ Ipratropium (DuoNeb 0.5-3(2.5)mg/3ml) 3 ml Q4H PRN HHN Shortness of Breath 08/06/16 19:00 08/11/16 18:59 Clonidine HCl (Catapres) 0.1 mg Q4H PRN ORAL SBP>160 08/06/16 19:00 09/05/16 18:59 Dextrose (Dextrose 50%) STAT PRN IV Hypoglycemia 08/06/16 19:00 09/05/16 18:59 Dextrose/Sodium Chloride (D5 0.45% NS) 1,000 ml @ 100 mls/hr Q10H IV 08/06/16 19:00 09/05/16 18:59 08/07/16 05:22 Duloxetine HCl (Cymbalta) 20 mg DAILY ORAL 08/07/16 09:00 09/06/16 08:59 Heparin Sodium (Porcine) (Heparin 5000 units/ml) 5,000 units EVERY 12 HOURS SUBQ 08/06/16 21:00 09/05/16 20:59 08/06/16 22:30 Insulin Aspart (NovoLOG) start today at 0,800 BEFORE MEALS AND HS SUBQ 08/06/16 21:00 09/05/16 20:59 08/07/16 06:26 Insulin Detemir (Levemir) 18 units BID@0800,1800 SUBQ 08/07/16 08:00 09/06/16 07:59 Lorazepam (Ativan 2mg/ml 1ml) 2 mg Q2H PRN IV agitation 08/06/16 19:00 08/13/16 18:59 Morphine Sulfate (Morphine Sulfate) 4 mg Q4H PRN IVP Severe Pain (Pain Scale 7-10) 08/06/16 21:00 08/13/16 20:59 08/07/16 02:55 Nitroglycerin (Ntg) 0.4 mg Q5M PRN SL Prn Chest Pain 08/06/16 19:00 09/05/16 18:59 Ondansetron HCl (Zofran) 4 mg Q6H PRN IVP Nausea & Vomiting 08/06/16 19:00 09/05/16 18:59 Pantoprazole (Protonix) 40 mg BID ORAL 08/07/16 09:00 09/06/16 08:59 Polyethylene Glycol (Miralax) 17 gm DAILYPRN PRN ORAL Constipation 08/06/16 19:00 09/05/16 18:59 08/07/16 05:23 Item Value Date Time Bedside Blood Glucose 229 mg/dl H 08/07/16 06 Bedside Blood Glucose 106 mg/dl 08/06/162217 Bedside Blood Glucose 105 mg/dl 08/06/16 181 IVY SULLIVAN Aug 08, 2016 06:43
[2016-08-08 08:00] VITALS: BP 155/97
[2016-08-08 08:44] LABS: MEAN CORPUSCULAR HGB CONC 31.3 G/DL (32.0-36.0); MEAN CORPUSCULAR VOLUME 96 FL (80-99); MEAN PLATELET VOLUME 9.2 FL (6.5-10.1); RED CELL DISTRIBUTION WIDTH 15.9 % (11.6-14.8); WHITE BLOOD COUNT 5.6 K/UL (4.8-10.8)
[2016-08-08 08:45] LABS: ALBUMIN/GLOBULIN RATIO 1.2 (1.0-2.7); CALCIUM 7.3 mg/dL (8.6-10.2); CREATININE 1.2 mg/dL (0.5-0.9); GLOMERULAR FILTRATION RATE 59.1 mL/min (>60); MAGNESIUM 1.7 mg/dL (1.7-2.5); PHOSPHORUS 2.7 mg/dL (2.5-4.8); POTASSIUM 4.3 mEQ/L (3.4-4.9); TOTAL PROTEIN 5.4 g/dL (6.6-8.7); URIC ACID 6.8 mg/dL (3.0-7.5)
[2016-08-08] MEDS: Heparin 5000 units/ml inj SUBQ SCH ×2 (09:00→20:21)
[2016-08-08] MEDS: Levemir Flexpen SUBQ SCH (09:30)
--- NOTE | 2016-08-08 09:50 | General Progress Note ---
Assessment/Plan Status: stable Status Narrative Cr 1.2 Assessment/Plan status: Acute renal failure- Cr lower 2 in Mar 2016, had normal BUN and Cr Patient on NSAI ( Meloxicam) and Lisinopril 1. Diabetic type 1 2. Diabetic ketoacidosis (CC) 3. History of gastroesophageal reflux disease. 4. Depression. 5. Hypertension. 6. back pain Plan: DC Jay- PT OT- Add Norvasc- DC IV Avoid Nephrotoxics Per orders Subjective ROS Limited/Unobtainable: No Constitutional: Reports: malaise Allergies: Coded Allergies: No Known Allergies (Unverified , 04/24/14) Objective Last 24 Hour Vital Signs Date Time Temp Pulse Resp B/P Pulse Ox O2 Delivery O2 Flow Rate FiO2 08/08/16 08:00 97.5 90 18 155/97 96 Room Air 08/08/16 07:43 78 20 Room Air 08/08/16 06:32 135/79 08/08/16 04:00 97.7 78 20 127/71 98 Room Air 08/08/16 00:52 97.0 08/08/16 00:00 97.0 81 18 133/79 96 Room Air 08/07/16 21:13 141/74 08/07/16 20:00 97.5 87 18 141/74 97 Room Air 08/07/16 19:30 86 20 Room Air 08/07/16 16:00 97.7 89 16 154/89 99 Room Air 08/07/16 13:31 151/97 08/07/16 12:00 97.3 91 18 151/97 95 Room Air 08/07/16 10:46 178/104 Intake and Output 08/07/16 08/08/16 19:00 07:00 Intake Total 880 ml 570 ml Output Total 500 ml 1650 ml Balance 380 ml -1080 ml Intake Oral 480 ml 120 ml IV Total 400 ml 450 ml Output Urine Total 500 ml 1650 ml # Voids 1 1 Laboratory Tests 08/08/16 05:00: Urine Eosinophils None seen 08/08/16 07:35: White Blood Count 5.6, Red Blood Count 3.30L, Hemoglobin 9.9L, Hematocrit 31.6L , Mean Corpuscular Volume 96, Mean Corpuscular Hemoglobin 30.0, Mean Corpuscular Hemoglobin Concent 31.3L, Red Cell Distribution Width 15.9H, Platelet Count 98L, Mean Platelet Volume 9.2, Neutrophils (%) (Auto) , Lymphocytes (%) (Auto) , Monocytes (%) (Auto) , Eosinophils (%) (Auto) , Basophils (%) (Auto) , Neutrophils % (Manual) [Pending], Lymphocytes % (Manual) [Pending], Platelet Estimate [Pending], Platelet Morphology [Pending], Sodium Level 142, Potassium Level 4.3, Chloride Level 103, Carbon Dioxide Level 27, Anion Gap 12, Blood Urea Nitrogen 25H, Creatinine 1.2H, Estimat Glomerular Filtration Rate 59.1, Glucose Level 93, Uric Acid 6.8, Calcium Level 7.3L, Phosphorus Level 2.7, Magnesium Level 1.7, Total Bilirubin 0.3, Aspartate Amino Transf (AST/SGOT) 31, Alanine Aminotransferase (ALT/SGPT) 24, Alkaline Phosphatase 85, Total Protein 5.4L, Albumin 3.0L, Globulin 2.4, Albumin/ Globulin Ratio 1.2 Height (Feet): 5 Height (Inches): 4.00 Weight (Pounds): 150 General Appearance: no apparent distress Cardiovascular: normal rate Respiratory/Chest: lungs clear Abdomen: soft Objective other PE not changed KYMBERLY SEAMAN Aug 08, 2016 09:50
[2016-08-08 11:55] LABS: EOSINOPHILS % (MANUAL) 1 % (0-3); LYMPHOCYTES % (MANUAL) 33 % (20-45); NEUTROPHILS % (MANUAL) 60 % (45-75); TOTAL CELLS COUNTED 100
[2016-08-08 11:56] LABS: BAND NEUTROPHILS % (MANUAL) 0 % (0-8); BASOPHILS % (MANUAL) 0 % (0-2); PLATELET CLUMPS 1+; PLATELET ESTIMATE ADEQUATE; PLATELET MORPHOLOGY NORMAL
[2016-08-08 11:57] LABS: ANISOCYTOSIS 1+; HYPOCHROMASIA 1+
[2016-08-08 12:00] VITALS: BP 154/87
[2016-08-08 12:09] LABS: PLATELET COUNT 162 K/UL (150-450)
[2016-08-08] MEDS: Norco 5mg/325mg tab ORAL PRN (13:40)
[2016-08-08] MEDS: Docusate 100mg cap ORAL SCH ×2 (13:40→19:43)
--- NOTE | 2016-08-08 13:42 | Internal Med Progress Note ---
Subjective Date of Service: Aug 08, 2016 Physician Name Christos Jacobsen Attending Physician Aries Hardin MD Current Medications Medications (Trade) Dose Ordered Sig/Lizbeth Route PRN Reason Start Time Stop Time Status Last Admin Dose Admin Acetaminophen (Tylenol) 650 mg Q4H PRN ORAL T>100.5 08/06/16 19:00 09/05/16 18:59 Acetaminophen/ Hydrocodone Bitart ([place] 5/325) 1 tab Q4H PRN ORAL Moderate Pain (Pain Scale 4-6) 08/08/16 10:00 08/15/16 09:59 08/08/16 13:40 Albuterol/ Ipratropium (DuoNeb 0.5-3(2.5)mg/3ml) 3 ml Q4H PRN HHN Shortness of Breath 08/06/16 19:00 08/11/16 18:59 Amlodipine Besylate (Norvasc) 2.5 mg DAILY ORAL 08/08/16 10:00 09/07/16 09:59 08/08/16 10:13 Clonidine HCl (Catapres) 0.1 mg EVERY 8 HOURS ORAL 08/07/16 14:00 09/06/16 13:59 08/08/16 13:39 Clonidine HCl (Catapres) 0.1 mg Q4H PRN ORAL SBP>160 08/06/16 19:00 09/05/16 18:59 08/07/16 10:46 Dextrose (Dextrose 50%) STAT PRN IV Hypoglycemia 08/06/16 19:00 09/05/16 18:59 Docusate Sodium (Colace) 100 mg THREE TIMES A DAY ORAL 08/08/16 13:00 09/07/16 12:59 08/08/16 13:40 Duloxetine HCl (Cymbalta) 20 mg DAILY ORAL 08/07/16 09:00 09/06/16 08:59 08/08/16 09:23 Ergocalciferol (Drisdol) 50,000 intlu QWEEK ORAL 08/07/16 12:00 09/06/16 11:59 08/07/16 13:31 Heparin Sodium (Porcine) (Heparin 5000 units/ml) 5,000 units EVERY 12 HOURS SUBQ 08/06/16 21:00 09/05/16 20:59 08/07/16 20:19 Insulin Aspart (NovoLOG) 5 units NOVOTIAC SUBQ 08/07/16 08:00 09/06/16 07:59 08/08/16 11:37 Insulin Aspart (NovoLOG) start today at 0,800 BEFORE MEALS AND HS SUBQ 08/06/16 21:00 09/05/16 20:59 08/08/16 11:38 Insulin Detemir (Levemir) 14 units DAILY SUBQ 08/08/16 09:00 09/07/16 08:59 08/08/16 09:30 Ondansetron HCl (Zofran) 4 mg Q6H PRN IVP Nausea & Vomiting 08/06/16 19:00 09/05/16 18:59 Pantoprazole (Protonix) 40 mg BID ORAL 08/07/16 09:00 09/06/16 08:59 08/08/16 09:23 Polyethylene Glycol (Miralax) 17 gm DAILYPRN PRN ORAL Constipation 08/06/16 19:00 09/05/16 18:59 08/07/16 05:23 Allergies: Coded Allergies: No Known Allergies (Unverified , 04/24/14) ROS Limited/Unobtainable: No Constitutional: Reports: no symptoms HEENT: Reports: no symptoms Cardiovascular: Reports: no symptoms Respiratory: Reports: no symptoms Gastrointestinal/Abdominal: Reports: no symptoms Genitourinary: Reports: no symptoms Neurologic/Psychiatric: Reports: no symptoms Subjective 45 YO F admitted with hyperglycemia and diabetic ketoacidosis. Cover for Int Alejo -Dr Hardin Objective Last Vital Signs Date Time Temp Pulse Resp B/P Pulse Ox O2 Delivery O2 Flow Rate FiO2 08/08/16 13:39 154/87 08/08/16 12:00 97.7 87 18 96 Room Air 08/08/16 07:43 21 Laboratory Tests Test 08/08/16 05:00 08/08/16 07:35 Urine Eosinophils None seen White Blood Count 5.6 K/UL (4.8-10.8) Red Blood Count 3.30 M/UL (4.20-5.40) L Hemoglobin 9.9 G/DL (12.0-16.0) L Hematocrit 31.6 % (37.0-47.0) L Mean Corpuscular Volume 96 FL (80-99) Mean Corpuscular Hemoglobin 30.0 PG (27.0-31.0) Mean Corpuscular Hemoglobin Concent 31.3 G/DL (32.0-36.0) L Red Cell Distribution Width 15.9 % (11.6-14.8) H Platelet Count 162 K/UL (150-450) Mean Platelet Volume 9.2 FL (6.5-10.1) Neutrophils (%) (Auto) % (45.0-75.0) Lymphocytes (%) (Auto) % (20.0-45.0) Monocytes (%) (Auto) % (1.0-10.0) Eosinophils (%) (Auto) % (0.0-3.0) Basophils (%) (Auto) % (0.0-2.0) Differential Total Cells Counted 100 Neutrophils % (Manual) 60 % (45-75) Lymphocytes % (Manual) 33 % (20-45) Monocytes % (Manual) 6 % (1-10) Eosinophils % (Manual) 1 % (0-3) Basophils % (Manual) 0 % (0-2) Band Neutrophils 0 % (0-8) Platelet Estimate Adequate Platelet Morphology Normal Clumped Platelets 1+ Hypochromasia 1+ Anisocytosis 1+ Sodium Level 142 mEQ/L (135-145) Potassium Level 4.3 mEQ/L (3.4-4.9) Chloride Level 103 mEQ/L (98-107) Carbon Dioxide Level 27 mEQ/L (20-30) Anion Gap 12 (5-15) Blood Urea Nitrogen 25 mg/dL (7-23) H Creatinine 1.2 mg/dL (0.5-0.9) H Estimat Glomerular Filtration Rate 59.1 mL/min (>60) Glucose Level 93 mg/dL (74-106) Uric Acid 6.8 mg/dL (3.0-7.5) Calcium Level 7.3 mg/dL (8.6-10.2) L Phosphorus Level 2.7 mg/dL (2.5-4.8) Magnesium Level 1.7 mg/dL (1.7-2.5) Total Bilirubin 0.3 mg/dL (0.0-1.2) Aspartate Amino Transf (AST/SGOT) 31 U/L (5-40) Alanine Aminotransferase (ALT/SGPT) 24 U/L (3-33) Alkaline Phosphatase 85 U/L (35-104) Total Protein 5.4 g/dL (6.6-8.7) L Albumin 3.0 g/dL (3.5-5.2) L Globulin 2.4 g/dL Albumin/Globulin Ratio 1.2 (1.0-2.7) Intake and Output 08/07/16 08/08/16 19:00 07:00 Intake Total 880 ml 620 ml Output Total 500 ml 1650 ml Balance 380 ml -1030 ml Intake Oral 480 ml 120 ml IV Total 400 ml 500 ml Output Urine Total 500 ml 1650 ml # Voids 1 1 Objective General Appearance: WD/WN, no apparent distress, alert EENT: PERRL/EOMI, normal ENT inspection, TMs normal Neck: non-tender, normal alignment, supple, normal inspection Cardiovascular: normal peripheral pulses, normal rate, regular rhythm, no gallop/murmur, no JVD Respiratory/Chest: chest wall non-tender, lungs clear, normal breath sounds, no respiratory distress, no accessory muscle use Abdomen: normal bowel sounds, non tender, soft, no organomegaly, no mass Extremities: normal range of motion, non-tender 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 Reg insulin drip discontinued; cont novolog sliding scale and levemir (2) Diabetic ketoacidosis, type I (3) HTN (hypertension) Assessment & Plan: Continue prn clonidine. (4) ARF (acute renal failure) Assessment & Plan: See nephrology note. (5) GERD (gastroesophageal reflux disease) (6) Depression Assessment & Plan: Cont cymbalta. Status: progressing CHRISTOS JACOBSEN Aug 08, 2016 13:42
[2016-08-08 16:00] VITALS: BP 158/54
[2016-08-08 20:00] VITALS: BP 165/70
--- NOTE | 2016-08-08 21:27 | Pulmonology Progress Note ---
Assessment/Plan Assessment/Plan Assessment/Plan Assessment/Plan Assessment Esophageal ulcer Anemia Dehydration Hyperosmolar coma Depression GERD (gastroesophageal reflux disease) Diabetic gastroparesis HTN (hypertension) PLAN OF CARE ICU insulin drip per protocol generous IVF hydration ABG this am monitor pH dc insulin drip when anion gap closed and change to short and long acting insulin endo eval HgA1c monitor renal parameters, Subjective ROS Limited/Unobtainable: Yes Constitutional: Reports: anorexia, fatigue Neurologic: Reports: confusion, weakness Allergies: Coded Allergies: No Known Allergies (Unverified , 04/24/14) Objective Last 24 Hour Vital Signs Date Time Temp Pulse Resp B/P Pulse Ox O2 Delivery O2 Flow Rate FiO2 08/08/16 21:06 165/70 08/08/16 20:00 98.1 95 16 165/70 96 Room Air 08/08/16 16:00 98.2 18 158/54 96 Room Air 08/08/16 14:39 97.7 08/08/16 13:39 154/87 08/08/16 12:00 97.7 87 18 154/87 96 Room Air 08/08/16 10:13 90 155/97 08/08/16 08:00 97.5 90 18 155/97 96 Room Air 08/08/16 07:43 78 20 Room Air 21 08/08/16 06:32 135/79 08/08/16 04:00 97.7 78 20 127/71 98 Room Air 08/08/16 00:52 97.0 08/08/16 00:00 97.0 81 18 133/79 96 Room Air Intake and Output 08/07/16 08/08/16 19:00 07:00 Intake Total 880 ml 620 ml Output Total 500 ml 1650 ml Balance 380 ml -1030 ml Intake Oral 480 ml 120 ml IV Total 400 ml 500 ml Output Urine Total 500 ml 1650 ml # Voids 1 1 General Appearance: no acute distress HEENT: normocephalic, atraumatic, PERRL Respiratory/Chest: chest wall non-tender, decreased breath sounds, accessory muscle use Breasts: no masses Cardiovascular: normal peripheral pulses, normal rate, regular rhythm, no JVD Abdomen: normal bowel sounds, soft, non tender, no organomegaly, non distended Genitourinary: normal external genitalia Extremities: no cyanosis Skin: rash, lesions 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, no motor/sensory deficits Laboratory Tests 08/08/16 05:00: Urine Eosinophils None seen 08/08/16 07:35: White Blood Count 5.6, Red Blood Count 3.30L, Hemoglobin 9.9L, Hematocrit 31.6L , Mean Corpuscular Volume 96, Mean Corpuscular Hemoglobin 30.0, Mean Corpuscular Hemoglobin Concent 31.3L, Red Cell Distribution Width 15.9H, Platelet Count 162, Mean Platelet Volume 9.2, Neutrophils (%) (Auto) , Lymphocytes (%) (Auto) , Monocytes (%) (Auto) , Eosinophils (%) (Auto) , Basophils (%) (Auto) , Differential Total Cells Counted 100, Neutrophils % ( Manual) 60, Lymphocytes % (Manual) 33, Monocytes % (Manual) 6, Eosinophils % ( Manual) 1, Basophils % (Manual) 0, Band Neutrophils 0, Platelet Estimate Adequate, Platelet Morphology Normal, Clumped Platelets 1+, Hypochromasia 1+, Anisocytosis 1+, Sodium Level 142, Potassium Level 4.3, Chloride Level 103, Carbon Dioxide Level 27, Anion Gap 12, Blood Urea Nitrogen 25H, Creatinine 1.2H , Estimat Glomerular Filtration Rate 59.1, Glucose Level 93, Uric Acid 6.8, Calcium Level 7.3L, Phosphorus Level 2.7, Magnesium Level 1.7, Total Bilirubin 0.3, Aspartate Amino Transf (AST/SGOT) 31, Alanine Aminotransferase (ALT/SGPT) 24, Alkaline Phosphatase 85, Total Protein 5.4L, Albumin 3.0L, Globulin 2.4, Albumin/Globulin Ratio 1.2 Current Medications Medications (Trade) Dose Ordered Sig/Lizbeth Route PRN Reason Start Time Stop Time Status Last Admin Dose Admin Acetaminophen (Tylenol) 650 mg Q4H PRN ORAL T>100.5 08/06/16 19:00 09/05/16 18:59 Acetaminophen/ Hydrocodone Bitart ([place] 5/325) 1 tab Q4H PRN ORAL Moderate Pain (Pain Scale 4-6) 08/08/16 10:00 08/15/16 09:59 08/08/16 13:40 Albuterol/ Ipratropium (DuoNeb 0.5-3(2.5)mg/3ml) 3 ml Q4H PRN HHN Shortness of Breath 08/06/16 19:00 08/11/16 18:59 Amlodipine Besylate (Norvasc) 2.5 mg DAILY ORAL 08/08/16 10:00 09/07/16 09:59 08/08/16 10:13 Clonidine HCl (Catapres) 0.1 mg EVERY 8 HOURS ORAL 08/07/16 14:00 09/06/16 13:59 08/08/16 21:06 Clonidine HCl (Catapres) 0.1 mg Q4H PRN ORAL SBP>160 08/06/16 19:00 09/05/16 18:59 08/07/16 10:46 Dextrose (Dextrose 50%) STAT PRN IV Hypoglycemia 08/06/16 19:00 09/05/16 18:59 Docusate Sodium (Colace) 100 mg THREE TIMES A DAY ORAL 08/08/16 13:00 09/07/16 12:59 08/08/16 19:43 Duloxetine HCl (Cymbalta) 20 mg DAILY ORAL 08/07/16 09:00 09/06/16 08:59 08/08/16 09:23 Ergocalciferol (Drisdol) 50,000 intlu QWEEK ORAL 08/07/16 12:00 09/06/16 11:59 08/07/16 13:31 Heparin Sodium (Porcine) (Heparin 5000 units/ml) 5,000 units EVERY 12 HOURS SUBQ 08/06/16 21:00 09/05/16 20:59 08/08/16 20:21 Insulin Aspart (NovoLOG) 5 units NOVOTIAC SUBQ 08/07/16 08:00 09/06/16 07:59 08/08/16 11:37 Insulin Aspart (NovoLOG) start today at 0,800 BEFORE MEALS AND HS SUBQ 08/06/16 21:00 09/05/16 20:59 08/08/16 11:38 Insulin Detemir (Levemir) 14 units DAILY SUBQ 08/08/16 09:00 09/07/16 08:59 08/08/16 09:30 Ondansetron HCl (Zofran) 4 mg Q6H PRN IVP Nausea & Vomiting 08/06/16 19:00 09/05/16 18:59 Pantoprazole (Protonix) 40 mg BID ORAL 08/07/16 09:00 09/06/16 08:59 08/08/16 19:43 Polyethylene Glycol (Miralax) 17 gm DAILYPRN PRN ORAL Constipation 08/06/16 19:00 09/05/16 18:59 08/07/16 05:23 VANESSA SAGASTUME Aug 08, 2016 21:27
[2016-08-09] VITALS (7 sets, daily range): BP systolic 149–169; BP diastolic 81–96
[2016-08-09] MEDS: NovoLOG Insulin Flexpen SUBQ SCH ×7 (05:59→20:55)
[2016-08-09 07:05] LABS: BASOPHILS % (AUTO) 1.2 % (0.0-2.0); EOSINOPHILS % (AUTO) 1.3 % (0.0-3.0); MEAN CORPUSCULAR HGB CONC 31.5 G/DL (32.0-36.0); MEAN CORPUSCULAR VOLUME 95 FL (80-99); MEAN PLATELET VOLUME 8.6 FL (6.5-10.1); MONOCYTES % (AUTO) 6.4 % (1.0-10.0); NEUTROPHILS % (AUTO) 60.2 % (45.0-75.0); PLATELET COUNT 111 K/UL (150-450); RED BLOOD COUNT 3.27 M/UL (4.20-5.40); RED CELL DISTRIBUTION WIDTH 15.8 % (11.6-14.8); WHITE BLOOD COUNT 5.7 K/UL (4.8-10.8)
--- NOTE | 2016-08-09 07:23 | General Progress Note ---
Assessment/Plan Problem List: (1) PERLA (acute kidney injury) ICD Codes: N17.9 - Acute kidney failure, unspecified SNOMED: 55033860 (2) Diabetic ketoacidosis, type I ICD Codes: E10.10 - Ketoacidosis in patient with type 1 diabetes mellitus SNOMED: 853820420 (3) HTN (hypertension) ICD Codes: I10 - HTN (hypertension) SNOMED: 05109208 (4) Diabetic gastroparesis ICD Codes: E11.43 - Diabetic gastroparesis SNOMED: 51231908 (5) Diabetes type 1, uncontrolled ICD Codes: E10.65 - Type 1 diabetes mellitus with hyperglycemia SNOMED: 968785810, 415329877 Assessment/Plan continue Levemir 14 units qam only continue Novolog 5 units ac tid continue sliding scale continue IVF insulin pump therapy + CGM as OP - my office will call her after DC in order to schedule her for a visit in my insulin pump clinic Subjective Allergies: Coded Allergies: No Known Allergies (Unverified , 04/24/14) All Systems: reviewed and negative except above Subjective feeling better appetite improved Objective Last 24 Hour Vital Signs Date Time Temp Pulse Resp B/P Pulse Ox O2 Delivery O2 Flow Rate FiO2 08/09/16 06:00 149/89 08/09/16 04:00 98.2 79 20 149/89 97 Room Air 08/09/16 00:00 97.9 86 20 155/91 94 Room Air 08/08/16 21:06 165/70 08/08/16 20:00 98.1 95 16 165/70 96 Room Air 08/08/16 19:40 95 20 Room Air 21 08/08/16 16:00 98.2 18 158/54 96 Room Air 08/08/16 14:39 97.7 08/08/16 13:39 154/87 08/08/16 12:00 97.7 87 18 154/87 96 Room Air 08/08/16 10:13 90 155/97 08/08/16 08:00 97.5 90 18 155/97 96 Room Air 08/08/16 07:43 78 20 Room Air 21 Intake and Output 08/08/16 08/09/16 19:00 07:00 Intake Total 820 ml Output Total 950 ml 1000 ml Balance -130 ml -1000 ml Intake Oral 720 ml IV Total 100 ml Output Urine Total 950 ml 1000 ml Laboratory Tests 08/08/16 07:35: White Blood Count 5.6, Red Blood Count 3.30L, Hemoglobin 9.9L, Hematocrit 31.6L , Mean Corpuscular Volume 96, Mean Corpuscular Hemoglobin 30.0, Mean Corpuscular Hemoglobin Concent 31.3L, Red Cell Distribution Width 15.9H, Platelet Count 162, Mean Platelet Volume 9.2, Neutrophils (%) (Auto) , Lymphocytes (%) (Auto) , Monocytes (%) (Auto) , Eosinophils (%) (Auto) , Basophils (%) (Auto) , Differential Total Cells Counted 100, Neutrophils % ( Manual) 60, Lymphocytes % (Manual) 33, Monocytes % (Manual) 6, Eosinophils % ( Manual) 1, Basophils % (Manual) 0, Band Neutrophils 0, Platelet Estimate Adequate, Platelet Morphology Normal, Clumped Platelets 1+, Hypochromasia 1+, Anisocytosis 1+, Sodium Level 142, Potassium Level 4.3, Chloride Level 103, Carbon Dioxide Level 27, Anion Gap 12, Blood Urea Nitrogen 25H, Creatinine 1.2H , Estimat Glomerular Filtration Rate 59.1, Glucose Level 93, Uric Acid 6.8, Calcium Level 7.3L, Phosphorus Level 2.7, Magnesium Level 1.7, Total Bilirubin 0.3, Aspartate Amino Transf (AST/SGOT) 31, Alanine Aminotransferase (ALT/SGPT) 24, Alkaline Phosphatase 85, Total Protein 5.4L, Albumin 3.0L, Globulin 2.4, Albumin/Globulin Ratio 1.2 08/09/16 06:05: White Blood Count 5.7, Red Blood Count 3.27L, Hemoglobin 9.8L, Hematocrit 31.1L , Mean Corpuscular Volume 95, Mean Corpuscular Hemoglobin 30.0, Mean Corpuscular Hemoglobin Concent 31.5L, Red Cell Distribution Width 15.8H, Platelet Count 111L, Mean Platelet Volume 8.6, Neutrophils (%) (Auto) 60.2, Lymphocytes (%) (Auto) 31.0, Monocytes (%) (Auto) 6.4, Eosinophils (%) (Auto) 1.3, Basophils (%) (Auto) 1.2, Sodium Level [Pending], Potassium Level [Pending] , Chloride Level [Pending], Carbon Dioxide Level [Pending], Blood Urea Nitrogen [Pending], Creatinine [Pending], Estimat Glomerular Filtration Rate [Pending], Glucose Level [Pending], Calcium Level [Pending] Height (Feet): 5 Height (Inches): 4.00 Weight (Pounds): 150 General Appearance: no apparent distress EENT: PERRL/EOMI Neck: normal alignment Cardiovascular: normal peripheral pulses Respiratory/Chest: lungs clear Abdomen: normal bowel sounds Pelvis: normal external exam Edema: 1+ Arm (L), 1+ Arm (R), 1+ Leg (L), 1+ Leg (R), 1+ Pedal (L), 1+ Pedal ( R), 1+ Generalized Objective Current Medications Medications (Trade) Dose Ordered Sig/Lizbeth Route PRN Reason Start Time Stop Time Status Last Admin Dose Admin Acetaminophen (Tylenol) 650 mg Q4H PRN ORAL T>100.5 08/06/16 19:00 09/05/16 18:59 Acetaminophen/ Hydrocodone Bitart ([place] 5/325) 1 tab Q4H PRN ORAL Moderate Pain (Pain Scale 4-6) 08/08/16 10:00 08/15/16 09:59 08/08/16 13:40 Albuterol/ Ipratropium (DuoNeb 0.5-3(2.5)mg/3ml) 3 ml Q4H PRN HHN Shortness of Breath 08/06/16 19:00 08/11/16 18:59 Amlodipine Besylate (Norvasc) 2.5 mg DAILY ORAL 08/08/16 10:00 09/07/16 09:59 08/08/16 10:13 Clonidine HCl (Catapres) 0.1 mg EVERY 8 HOURS ORAL 08/07/16 14:00 09/06/16 13:59 08/09/16 06:00 Clonidine HCl (Catapres) 0.1 mg Q4H PRN ORAL SBP>160 08/06/16 19:00 09/05/16 18:59 08/07/16 10:46 Dextrose (Dextrose 50%) STAT PRN IV Hypoglycemia 08/06/16 19:00 09/05/16 18:59 Docusate Sodium (Colace) 100 mg THREE TIMES A DAY ORAL 08/08/16 13:00 09/07/16 12:59 08/08/16 19:43 Duloxetine HCl (Cymbalta) 20 mg DAILY ORAL 08/07/16 09:00 09/06/16 08:59 08/08/16 09:23 Ergocalciferol (Drisdol) 50,000 intlu QWEEK ORAL 08/07/16 12:00 09/06/16 11:59 08/07/16 13:31 Heparin Sodium (Porcine) (Heparin 5000 units/ml) 5,000 units EVERY 12 HOURS SUBQ 08/06/16 21:00 09/05/16 20:59 08/08/16 20:21 Insulin Aspart (NovoLOG) 5 units NOVOTIAC SUBQ 08/07/16 08:00 09/06/16 07:59 08/09/16 05:59 Insulin Aspart (NovoLOG) start today at 0,800 BEFORE MEALS AND HS SUBQ 08/06/16 21:00 09/05/16 20:59 08/09/16 06:00 Insulin Detemir (Levemir) 14 units DAILY SUBQ 08/08/16 09:00 09/07/16 08:59 08/08/16 09:30 Ondansetron HCl (Zofran) 4 mg Q6H PRN IVP Nausea & Vomiting 08/06/16 19:00 09/05/16 18:59 Pantoprazole (Protonix) 40 mg BID ORAL 08/07/16 09:00 09/06/16 08:59 08/08/16 19:43 Polyethylene Glycol (Miralax) 17 gm DAILYPRN PRN ORAL Constipation 08/06/16 19:00 09/05/16 18:59 08/07/16 05:23 Item Value Date Time Bedside Blood Glucose 118 mg/dl 08/08/16 0638 Bedside Blood Glucose 88 mg/dl 08/07/16 2100 Bedside Blood Glucose 215 mg/dl H 08/07/16 1651 Bedside Blood Glucose 211 mg/dl H 08/07/16 1335 Bedside Blood Glucose 229 mg/dl H 08/07/16 1048 Bedside Blood Glucose 196 mg/dl H 08/09/16 0609 Bedside Blood Glucose 70 mg/dl 08/08/16 2100 Bedside Blood Glucose 78 mg/dl 08/08/16 1630 Bedside Blood Glucose 113 mg/dl 08/08/16 1138 Bedside Blood Glucose 118 mg/dl 08/08/16 0930 IVY SULLIVAN Aug 09, 2016 07:23
[2016-08-09 07:25] LABS: ANION GAP 12 (5-15); CALCIUM 8.1 mg/dL (8.6-10.2); CARBON DIOXIDE 29 mEQ/L (20-30); CHLORIDE 97 mEQ/L (98-107); CREATININE 0.8 mg/dL (0.5-0.9); GLOMERULAR FILTRATION RATE > 60 mL/min (>60); HEMOLYSIS 4; POTASSIUM 4.9 mEQ/L (3.4-4.9); SODIUM 138 mEQ/L (135-145)
[2016-08-09] MEDS: Docusate 100mg cap ORAL SCH ×3 (08:20→17:12)
[2016-08-09] MEDS: Tamsulosin 0.4mg cap ORAL SCH ×2 (08:20→17:13)
[2016-08-09] MEDS: Levemir Flexpen SUBQ SCH (08:23)
[2016-08-09] MEDS: Heparin 5000 units/ml inj SUBQ SCH ×2 (09:00→20:16)
--- NOTE | 2016-08-09 09:40 | General Progress Note ---
Assessment/Plan Status: stable - renal parameters Status Narrative had urine retention after escamilla discontinued Assessment/Plan status: Acute renal failure- Cr now wnl in Mar 2016, had normal BUN and Cr Patient on NSAI ( Meloxicam) and Lisinopril 1. Diabetic type 1 2. Diabetic ketoacidosis (CC) 3. History of gastroesophageal reflux disease. 4. Depression. 5. Hypertension. 6. back pain Plan: Escamilla re inserted due to retention- trial flomax- PT OT- On Norvasc- DC IV Avoid Nephrotoxics Per orders Subjective ROS Limited/Unobtainable: No Constitutional: Reports: malaise Allergies: Coded Allergies: No Known Allergies (Unverified , 04/24/14) Objective Last 24 Hour Vital Signs Date Time Temp Pulse Resp B/P Pulse Ox O2 Delivery O2 Flow Rate FiO2 08/09/16 08:23 97.5 87 20 150/95 98 Room Air 08/09/16 08:19 95 149/89 08/09/16 07:42 95 20 Room Air 08/09/16 06:00 149/89 08/09/16 04:00 98.2 79 20 149/89 97 Room Air 08/09/16 00:00 97.9 86 20 155/91 94 Room Air 08/08/16 21:06 165/70 08/08/16 20:00 98.1 95 16 165/70 96 Room Air 08/08/16 19:40 95 20 Room Air 21 08/08/16 16:00 98.2 18 158/54 96 Room Air 08/08/16 14:39 97.7 08/08/16 13:39 154/87 08/08/16 12:00 97.7 87 18 154/87 96 Room Air 08/08/16 10:13 90 155/97 Intake and Output 08/08/16 08/09/16 19:00 07:00 Intake Total 820 ml Output Total 950 ml 1000 ml Balance -130 ml -1000 ml Intake Oral 720 ml IV Total 100 ml Output Urine Total 950 ml 1000 ml Laboratory Tests 08/09/16 06:05: White Blood Count 5.7, Red Blood Count 3.27L, Hemoglobin 9.8L, Hematocrit 31.1L , Mean Corpuscular Volume 95, Mean Corpuscular Hemoglobin 30.0, Mean Corpuscular Hemoglobin Concent 31.5L, Red Cell Distribution Width 15.8H, Platelet Count 111L, Mean Platelet Volume 8.6, Neutrophils (%) (Auto) 60.2, Lymphocytes (%) (Auto) 31.0, Monocytes (%) (Auto) 6.4, Eosinophils (%) (Auto) 1.3, Basophils (%) (Auto) 1.2, Sodium Level 138, Potassium Level 4.9, Chloride Level 97L, Carbon Dioxide Level 29, Anion Gap 12, Blood Urea Nitrogen 14, Creatinine 0.8, Estimat Glomerular Filtration Rate > 60, Glucose Level 243#H, Calcium Level 8.1L Height (Feet): 5 Height (Inches): 4.00 Weight (Pounds): 150 General Appearance: no apparent distress Respiratory/Chest: lungs clear Abdomen: soft Genitourinary/Rectal: other - escamilla had to be reinserted due to retention Objective other PE not changed KYMBERLY SEAMAN Aug 09, 2016 09:40
[2016-08-09] MEDS: Norco 5mg/325mg tab ORAL PRN (11:37)
--- NOTE | 2016-08-09 17:03 | Internal Med Progress Note ---
Subjective Date of Service: Aug 09, 2016 Physician Name Anastacio Jacobsen Attending Physician Aries Hardin MD Current Medications Medications (Trade) Dose Ordered Sig/Lizbeth Route PRN Reason Start Time Stop Time Status Last Admin Dose Admin Acetaminophen (Tylenol) 650 mg Q4H PRN ORAL T>100.5 08/06/16 19:00 09/05/16 18:59 Acetaminophen/ Hydrocodone Bitart ([place] 5/325) 1 tab Q4H PRN ORAL Moderate Pain (Pain Scale 4-6) 08/08/16 10:00 08/15/16 09:59 08/09/16 11:37 Albuterol/ Ipratropium (DuoNeb 0.5-3(2.5)mg/3ml) 3 ml Q4H PRN HHN Shortness of Breath 08/06/16 19:00 08/11/16 18:59 Amlodipine Besylate (Norvasc) 2.5 mg DAILY ORAL 08/08/16 10:00 09/07/16 09:59 08/09/16 08:19 Clonidine HCl (Catapres) 0.1 mg EVERY 8 HOURS ORAL 08/07/16 14:00 09/06/16 13:59 08/09/16 13:30 Clonidine HCl (Catapres) 0.1 mg Q4H PRN ORAL SBP>160 08/06/16 19:00 09/05/16 18:59 08/07/16 10:46 Dextrose (Dextrose 50%) STAT PRN IV Hypoglycemia 08/06/16 19:00 09/05/16 18:59 Docusate Sodium (Colace) 100 mg THREE TIMES A DAY ORAL 08/08/16 13:00 09/07/16 12:59 08/09/16 13:30 Duloxetine HCl (Cymbalta) 20 mg DAILY ORAL 08/07/16 09:00 09/06/16 08:59 08/09/16 08:20 Ergocalciferol (Drisdol) 50,000 intlu QWEEK ORAL 08/07/16 12:00 09/06/16 11:59 08/07/16 13:31 Heparin Sodium (Porcine) (Heparin 5000 units/ml) 5,000 units EVERY 12 HOURS SUBQ 08/06/16 21:00 09/05/16 20:59 08/08/16 20:21 Insulin Aspart (NovoLOG) 5 units NOVOTIAC SUBQ 08/07/16 08:00 09/06/16 07:59 08/09/16 05:59 Insulin Aspart (NovoLOG) start today at 0,800 BEFORE MEALS AND HS SUBQ 08/06/16 21:00 09/05/16 20:59 08/09/16 06:00 Insulin Detemir (Levemir) 14 units DAILY SUBQ 08/08/16 09:00 09/07/16 08:59 08/09/16 08:23 Ondansetron HCl (Zofran) 4 mg Q6H PRN IVP Nausea & Vomiting 08/06/16 19:00 09/05/16 18:59 Pantoprazole (Protonix) 40 mg BID ORAL 08/07/16 09:00 09/06/16 08:59 08/09/16 08:20 Polyethylene Glycol (Miralax) 17 gm DAILYPRN PRN ORAL Constipation 08/06/16 19:00 09/05/16 18:59 08/07/16 05:23 Tamsulosin HCl (Flomax) 0.4 mg BID ORAL 08/09/16 09:00 09/08/16 08:59 08/09/16 08:20 Allergies: Coded Allergies: No Known Allergies (Unverified , 04/24/14) ROS Limited/Unobtainable: No Constitutional: Reports: no symptoms HEENT: Reports: no symptoms Cardiovascular: Reports: no symptoms Respiratory: Reports: no symptoms Gastrointestinal/Abdominal: Reports: no symptoms Genitourinary: Reports: other - urine retention Neurologic/Psychiatric: Reports: no symptoms Subjective 45 YO F admitted with hyperglycemia and diabetic ketoacidosis. Cover for Int Med -Dr Hardin. Unable to void requiring escamilla cath. Objective Last Vital Signs Date Time Temp Pulse Resp B/P Pulse Ox O2 Delivery O2 Flow Rate FiO2 08/09/16 16:00 97.7 87 20 149/81 95 Room Air 08/09/16 07:42 21 Laboratory Tests Test 08/09/16 06:05 White Blood Count 5.7 K/UL (4.8-10.8) Red Blood Count 3.27 M/UL (4.20-5.40) L Hemoglobin 9.8 G/DL (12.0-16.0) L Hematocrit 31.1 % (37.0-47.0) L Mean Corpuscular Volume 95 FL (80-99) Mean Corpuscular Hemoglobin 30.0 PG (27.0-31.0) Mean Corpuscular Hemoglobin Concent 31.5 G/DL (32.0-36.0) L Red Cell Distribution Width 15.8 % (11.6-14.8) H Platelet Count 111 K/UL (150-450) L Mean Platelet Volume 8.6 FL (6.5-10.1) Neutrophils (%) (Auto) 60.2 % (45.0-75.0) Lymphocytes (%) (Auto) 31.0 % (20.0-45.0) Monocytes (%) (Auto) 6.4 % (1.0-10.0) Eosinophils (%) (Auto) 1.3 % (0.0-3.0) Basophils (%) (Auto) 1.2 % (0.0-2.0) Sodium Level 138 mEQ/L (135-145) Potassium Level 4.9 mEQ/L (3.4-4.9) Chloride Level 97 mEQ/L (98-107) L Carbon Dioxide Level 29 mEQ/L (20-30) Anion Gap 12 (5-15) Blood Urea Nitrogen 14 mg/dL (7-23) Creatinine 0.8 mg/dL (0.5-0.9) Estimat Glomerular Filtration Rate > 60 mL/min (>60) Glucose Level 243 mg/dL (74-106) #H Calcium Level 8.1 mg/dL (8.6-10.2) L Intake and Output 08/08/16 08/09/16 19:00 07:00 Intake Total 820 ml Output Total 950 ml 1000 ml Balance -130 ml -1000 ml Intake Oral 720 ml IV Total 100 ml Output Urine Total 950 ml 1000 ml Objective General Appearance: WD/WN, no apparent distress, alert EENT: PERRL/EOMI, normal ENT inspection, TMs normal Neck: non-tender, normal alignment, supple, normal inspection Cardiovascular: normal peripheral pulses, normal rate, regular rhythm, no gallop/murmur, no JVD Respiratory/Chest: chest wall non-tender, lungs clear, normal breath sounds, no respiratory distress, no accessory muscle use Abdomen: normal bowel sounds, non tender, soft, no organomegaly, no mass Extremities: normal range of motion, non-tender 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 Reg insulin drip discontinued; cont novolog sliding scale and levemir (2) Diabetic ketoacidosis, type I (3) HTN (hypertension) Assessment & Plan: Continue prn clonidine. (4) ARF (acute renal failure) Assessment & Plan: See nephrology note. (5) GERD (gastroesophageal reflux disease) (6) Depression Assessment & Plan: Cont cymbalta. (7) Urinary retention Assessment & Plan: Continue Escamilla cath. Status: progressing ANASTACIO JACOBSEN Aug 09, 2016 17:03
[2016-08-09] MEDS ORDERED: Milk of Magnesia 30ml Ud ORAL PRN (17:15)
--- NOTE | 2016-08-09 22:28 | Pulmonology Progress Note ---
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, 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, 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 Discussed with: nurses, consultants, window caser Subjective ROS Limited/Unobtainable: Yes Constitutional: Reports: anorexia, chills, fatigue Neurologic: Reports: confusion, weakness Endocrine: Reports: abnormal blood sugar Allergies: Coded Allergies: No Known Allergies (Unverified , 04/24/14) Objective Last 24 Hour Vital Signs Date Time Temp Pulse Resp B/P Pulse Ox O2 Delivery O2 Flow Rate FiO2 08/09/16 21:10 169/76 08/09/16 20:00 97.3 87 20 169/96 97 Room Air 08/09/16 19:53 92 20 Room Air 08/09/16 16:00 97.7 87 20 149/81 95 Room Air 08/09/16 13:30 164/96 08/09/16 12:36 97.2 08/09/16 12:10 97.2 84 20 164/96 94 Room Air 08/09/16 08:23 97.5 87 20 150/95 98 Room Air 08/09/16 08:19 95 149/89 08/09/16 07:42 95 20 Room Air 21 08/09/16 06:00 149/89 08/09/16 04:00 98.2 79 20 149/89 97 Room Air 08/09/16 00:00 97.9 86 20 155/91 94 Room Air Intake and Output 08/08/16 08/09/16 19:00 07:00 Intake Total 820 ml Output Total 950 ml 1000 ml Balance -130 ml -1000 ml Intake Oral 720 ml IV Total 100 ml Output Urine Total 950 ml 1000 ml General Appearance: no acute distress HEENT: normocephalic, atraumatic, PERRL Respiratory/Chest: chest wall non-tender, decreased breath sounds, accessory muscle use Breasts: no masses Cardiovascular: normal peripheral pulses, normal rate, regular rhythm, no JVD Abdomen: normal bowel sounds, soft, non tender, no organomegaly, non distended Genitourinary: normal external genitalia Extremities: no cyanosis Skin: no rash, no lesions 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/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: 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 normal, no motor/sensory deficits Laboratory Tests 08/09/16 06:05: White Blood Count 5.7, Red Blood Count 3.27L, Hemoglobin 9.8L, Hematocrit 31.1L , Mean Corpuscular Volume 95, Mean Corpuscular Hemoglobin 30.0, Mean Corpuscular Hemoglobin Concent 31.5L, Red Cell Distribution Width 15.8H, Platelet Count 111L, Mean Platelet Volume 8.6, Neutrophils (%) (Auto) 60.2, Lymphocytes (%) (Auto) 31.0, Monocytes (%) (Auto) 6.4, Eosinophils (%) (Auto) 1.3, Basophils (%) (Auto) 1.2, Sodium Level 138, Potassium Level 4.9, Chloride Level 97L, Carbon Dioxide Level 29, Anion Gap 12, Blood Urea Nitrogen 14, Creatinine 0.8, Estimat Glomerular Filtration Rate > 60, Glucose Level 243#H, Calcium Level 8.1L Current Medications Medications (Trade) Dose Ordered Sig/Lizbeth Route PRN Reason Start Time Stop Time Status Last Admin Dose Admin Acetaminophen (Tylenol) 650 mg Q4H PRN ORAL T>100.5 08/06/16 19:00 09/05/16 18:59 Acetaminophen/ Hydrocodone Bitart ([place] 5/325) 1 tab Q4H PRN ORAL Moderate Pain (Pain Scale 4-6) 08/08/16 10:00 08/15/16 09:59 08/09/16 11:37 Albuterol/ Ipratropium (DuoNeb 0.5-3(2.5)mg/3ml) 3 ml Q4H PRN HHN Shortness of Breath 08/06/16 19:00 08/11/16 18:59 Amlodipine Besylate (Norvasc) 2.5 mg DAILY ORAL 08/08/16 10:00 09/07/16 09:59 08/09/16 08:19 Clonidine HCl (Catapres) 0.1 mg EVERY 8 HOURS ORAL 08/07/16 14:00 09/06/16 13:59 08/09/16 21:10 Clonidine HCl (Catapres) 0.1 mg Q4H PRN ORAL SBP>160 08/06/16 19:00 09/05/16 18:59 08/07/16 10:46 Dextrose (Dextrose 50%) STAT PRN IV Hypoglycemia 08/06/16 19:00 09/05/16 18:59 Docusate Sodium (Colace) 100 mg THREE TIMES A DAY ORAL 08/08/16 13:00 09/07/16 12:59 08/09/16 17:12 Duloxetine HCl (Cymbalta) 20 mg DAILY ORAL 08/07/16 09:00 09/06/16 08:59 08/09/16 08:20 Ergocalciferol (Drisdol) 50,000 intlu QWEEK ORAL 08/07/16 12:00 09/06/16 11:59 08/07/16 13:31 Heparin Sodium (Porcine) (Heparin 5000 units/ml) 5,000 units EVERY 12 HOURS SUBQ 08/06/16 21:00 09/05/16 20:59 08/08/16 20:21 Insulin Aspart (NovoLOG) 5 units NOVOTIAC SUBQ 08/07/16 08:00 09/06/16 07:59 08/09/16 05:59 Insulin Aspart (NovoLOG) start today at 0,800 BEFORE MEALS AND HS SUBQ 08/06/16 21:00 09/05/16 20:59 08/09/16 06:00 Insulin Detemir (Levemir) 14 units DAILY SUBQ 08/08/16 09:00 09/07/16 08:59 08/09/16 08:23 Magnesium Hydroxide (Mom) 30 ml Q6H PRN ORAL Constipation 08/09/16 17:15 09/08/16 17:14 08/09/16 22:14 Ondansetron HCl (Zofran) 4 mg Q6H PRN IVP Nausea & Vomiting 08/06/16 19:00 09/05/16 18:59 Pantoprazole (Protonix) 40 mg BID ORAL 08/07/16 09:00 09/06/16 08:59 08/09/16 17:12 Polyethylene Glycol (Miralax) 17 gm DAILYPRN PRN ORAL Constipation 08/06/16 19:00 09/05/16 18:59 08/07/16 05:23 Tamsulosin HCl (Flomax) 0.4 mg BID ORAL 08/09/16 09:00 09/08/16 08:59 08/09/16 17:13 VANESSA SAGASTUME Aug 09, 2016 22:28
[2016-08-10] VITALS: BP 172/91
[2016-08-10] MEDS: Norco 5mg/325mg tab ORAL PRN ×2 (00:59→09:13)
[2016-08-10 04:00] VITALS: BP 151/83
[2016-08-10 05:31] LABS: BASOPHILS % (AUTO) 0.9 % (0.0-2.0); EOSINOPHILS % (AUTO) 1.3 % (0.0-3.0); LYMPHOCYTES % (AUTO) 18.2 % (20.0-45.0); MEAN CORPUSCULAR HEMOGLOBIN 30.2 PG (27.0-31.0); MEAN CORPUSCULAR HGB CONC 31.9 G/DL (32.0-36.0); MEAN CORPUSCULAR VOLUME 95 FL (80-99); MEAN PLATELET VOLUME 8.4 FL (6.5-10.1); MONOCYTES % (AUTO) 6.1 % (1.0-10.0); NEUTROPHILS % (AUTO) 73.4 % (45.0-75.0); PLATELET COUNT 167 K/UL (150-450); RED BLOOD COUNT 3.03 M/UL (4.20-5.40); RED CELL DISTRIBUTION WIDTH 15.7 % (11.6-14.8); WHITE BLOOD COUNT 6.2 K/UL (4.8-10.8)
[2016-08-10 05:50] LABS: ANION GAP 13 (5-15); CALCIUM 8.1 mg/dL (8.6-10.2); CARBON DIOXIDE 30 mEQ/L (20-30); CHLORIDE 93 mEQ/L (98-107); CREATININE 0.8 mg/dL (0.5-0.9); GLOMERULAR FILTRATION RATE > 60 mL/min (>60); HEMOLYSIS 0; POTASSIUM 4.5 mEQ/L (3.4-4.9); SODIUM 136 mEQ/L (135-145)
[2016-08-10] MEDS: NovoLOG Insulin Flexpen SUBQ SCH ×6 (06:34→16:50)
--- NOTE | 2016-08-10 07:51 | General Progress Note ---
Assessment/Plan Problem List: (1) PERLA (acute kidney injury) ICD Codes: N17.9 - Acute kidney failure, unspecified SNOMED: 52205718 (2) Diabetic ketoacidosis, type I ICD Codes: E10.10 - Ketoacidosis in patient with type 1 diabetes mellitus SNOMED: 388725998 (3) HTN (hypertension) ICD Codes: I10 - HTN (hypertension) SNOMED: 75104872 (4) Diabetic gastroparesis ICD Codes: E11.43 - Diabetic gastroparesis SNOMED: 75899483 (5) Diabetes type 1, uncontrolled ICD Codes: E10.65 - Type 1 diabetes mellitus with hyperglycemia SNOMED: 027933096, 399773222 Assessment/Plan continue Levemir 14 units qam only reduce Novolog to 4 units ac tid continue sliding scale insulin pump therapy + CGM as OP - my office will call her after DC in order to schedule her for a visit in my insulin pump clinic Subjective Allergies: Coded Allergies: No Known Allergies (Unverified , 04/24/14) All Systems: reviewed and negative except above Subjective events noted Objective Last 24 Hour Vital Signs Date Time Temp Pulse Resp B/P Pulse Ox O2 Delivery O2 Flow Rate FiO2 08/10/16 06:31 151/83 08/10/16 04:00 97.6 85 18 151/83 98 Room Air 08/10/16 00:00 97.9 87 18 172/91 98 Room Air 08/09/16 22:30 97.7 87 16 160/88 97 Room Air 08/09/16 21:10 169/76 08/09/16 20:00 97.3 87 20 169/96 97 Room Air 08/09/16 19:53 92 20 Room Air 21 08/09/16 16:00 97.7 87 20 149/81 95 Room Air 08/09/16 13:30 164/96 08/09/16 12:36 97.2 08/09/16 12:10 97.2 84 20 164/96 94 Room Air 08/09/16 08:23 97.5 87 20 150/95 98 Room Air 08/09/16 08:19 95 149/89 Intake and Output 08/09/16 08/10/16 19:00 07:00 Intake Total 840 ml 500 ml Output Total 2500 ml Balance 840 ml -2000 ml Intake Oral 840 ml 500 ml Output Urine Total 2500 ml Laboratory Tests 08/10/16 04:30: White Blood Count 6.2, Red Blood Count 3.03L, Hemoglobin 9.2L, Hematocrit 28.7L , Mean Corpuscular Volume 95, Mean Corpuscular Hemoglobin 30.2, Mean Corpuscular Hemoglobin Concent 31.9L, Red Cell Distribution Width 15.7H, Platelet Count 167#, Mean Platelet Volume 8.4, Neutrophils (%) (Auto) 73.4, Lymphocytes (%) (Auto) 18.2L, Monocytes (%) (Auto) 6.1, Eosinophils (%) (Auto) 1.3, Basophils (%) (Auto) 0.9, Sodium Level 136, Potassium Level 4.5, Chloride Level 93L, Carbon Dioxide Level 30, Anion Gap 13, Blood Urea Nitrogen 9, Creatinine 0.8, Estimat Glomerular Filtration Rate > 60, Glucose Level 276H, Calcium Level 8.1L Height (Feet): 5 Height (Inches): 4.00 Weight (Pounds): 150 General Appearance: no apparent distress Neck: normal alignment Cardiovascular: regular rhythm Respiratory/Chest: normal breath sounds Abdomen: normal bowel sounds Pelvis: normal external exam Edema: 1+ Arm (L), 1+ Arm (R), 1+ Leg (L), 1+ Leg (R), 1+ Pedal (L), 1+ Pedal ( R), 1+ Generalized Objective Current Medications Medications (Trade) Dose Ordered Sig/Lizbeth Route PRN Reason Start Time Stop Time Status Last Admin Dose Admin Acetaminophen (Tylenol) 650 mg Q4H PRN ORAL T>100.5 08/06/16 19:00 09/05/16 18:59 Acetaminophen/ Hydrocodone Bitart ([place] 5/325) 1 tab Q4H PRN ORAL Moderate Pain (Pain Scale 4-6) 08/08/16 10:00 08/15/16 09:59 08/10/16 00:59 Albuterol/ Ipratropium (DuoNeb 0.5-3(2.5)mg/3ml) 3 ml Q4H PRN HHN Shortness of Breath 08/06/16 19:00 08/11/16 18:59 Amlodipine Besylate (Norvasc) 2.5 mg DAILY ORAL 08/08/16 10:00 3/24/17 09:59 08/09/16 08:19 Clonidine HCl (Catapres) 0.1 mg EVERY 8 HOURS ORAL 08/07/16 14:00 09/06/16 13:59 08/10/16 06:31 Clonidine HCl (Catapres) 0.1 mg Q4H PRN ORAL SBP>160 08/06/16 19:00 09/05/16 18:59 08/07/16 10:46 Dextrose (Dextrose 50%) STAT PRN IV Hypoglycemia 08/06/16 19:00 09/05/16 18:59 Docusate Sodium (Colace) 100 mg THREE TIMES A DAY ORAL 08/08/16 13:00 09/07/16 12:59 08/09/16 17:12 Duloxetine HCl (Cymbalta) 20 mg DAILY ORAL 08/07/16 09:00 09/06/16 08:59 08/09/16 08:20 Ergocalciferol (Drisdol) 50,000 intlu QWEEK ORAL 08/07/16 12:00 09/06/16 11:59 08/07/16 13:31 Heparin Sodium (Porcine) (Heparin 5000 units/ml) 5,000 units EVERY 12 HOURS SUBQ 08/06/16 21:00 09/05/16 20:59 08/08/16 20:21 Insulin Aspart (NovoLOG) 5 units NOVOTIAC SUBQ 08/07/16 08:00 09/06/16 07:59 08/10/16 06:34 Insulin Aspart (NovoLOG) start today at 0,800 BEFORE MEALS AND HS SUBQ 08/06/16 21:00 09/05/16 20:59 08/10/16 06:35 Insulin Detemir (Levemir) 14 units DAILY SUBQ 08/08/16 09:00 09/07/16 08:59 08/09/16 08:23 Magnesium Hydroxide (Mom) 30 ml Q6H PRN ORAL Constipation 08/09/16 17:15 09/08/16 17:14 08/09/16 22:14 Ondansetron HCl (Zofran) 4 mg Q6H PRN IVP Nausea & Vomiting 08/06/16 19:00 09/05/16 18:59 Pantoprazole (Protonix) 40 mg BID ORAL 08/07/16 09:00 09/06/16 08:59 08/09/16 17:12 Polyethylene Glycol (Miralax) 17 gm DAILYPRN PRN ORAL Constipation 08/06/16 19:00 09/05/16 18:59 08/07/16 05:23 Tamsulosin HCl (Flomax) 0.4 mg BID ORAL 08/09/16 09:00 09/08/16 08:59 08/09/16 17:13 Item Value Date Time Bedside Blood Glucose 277 mg/dl H 08/10/16 0635 Bedside Blood Glucose 85 mg/dl 08/09/16 2055 Bedside Blood Glucose 80 mg/dl 08/09/16 1650 Bedside Blood Glucose 88 mg/dl 08/09/16 1138 Bedside Blood Glucose 196 mg/dl H 08/09/16 0823 Bedside Blood Glucose 196 mg/dl H 08/09/16 0609 IVY SULLIVAN Aug 10, 2016 07:51
[2016-08-10 08:00] VITALS: BP 160/92
[2016-08-10] MEDS: Docusate 100mg cap ORAL SCH ×3 (09:00→18:08)
[2016-08-10] MEDS: Tamsulosin 0.4mg cap ORAL SCH ×2 (09:00→18:09)
[2016-08-10] MEDS: Heparin 5000 units/ml inj SUBQ SCH (09:03)
[2016-08-10] MEDS: Levemir Flexpen SUBQ SCH (09:04)
--- NOTE | 2016-08-10 09:54 | General Progress Note ---
Assessment/Plan Status: stable Assessment/Plan status: Acute renal failure- Cr now wnl in Mar 2016, had normal BUN and Cr Patient on NSAI ( Meloxicam) and Lisinopril 1. Diabetic type 1 2. Diabetic ketoacidosis (CC) 3. History of gastroesophageal reflux disease. 4. Depression. 5. Hypertension. 6. back pain Plan: trial DC escamilla- ON flomax- PT OT- On Norvasc- Avoid Nephrotoxics Per orders ? Dc- fu as out patient Subjective ROS Limited/Unobtainable: No Allergies: Coded Allergies: No Known Allergies (Unverified , 04/24/14) Objective Last 24 Hour Vital Signs Date Time Temp Pulse Resp B/P Pulse Ox O2 Delivery O2 Flow Rate FiO2 08/10/16 09:01 85 151/83 08/10/16 06:31 151/83 08/10/16 04:00 97.6 85 18 151/83 98 Room Air 08/10/16 00:00 97.9 87 18 172/91 98 Room Air 08/09/16 22:30 97.7 87 16 160/88 97 Room Air 08/09/16 21:10 169/76 08/09/16 20:00 97.3 87 20 169/96 97 Room Air 08/09/16 19:53 92 20 Room Air 21 08/09/16 16:00 97.7 87 20 149/81 95 Room Air 08/09/16 13:30 164/96 08/09/16 12:36 97.2 08/09/16 12:10 97.2 84 20 164/96 94 Room Air Intake and Output 08/09/16 08/10/16 19:00 07:00 Intake Total 840 ml 500 ml Output Total 2500 ml Balance 840 ml -2000 ml Intake Oral 840 ml 500 ml Output Urine Total 2500 ml Current Medications Medications (Trade) Dose Ordered Sig/Lizbeth Route PRN Reason Start Time Stop Time Status Last Admin Dose Admin Acetaminophen (Tylenol) 650 mg Q4H PRN ORAL T>100.5 08/06/16 19:00 09/05/16 18:59 Acetaminophen/ Hydrocodone Bitart ([place] 5/325) 1 tab Q4H PRN ORAL Moderate Pain (Pain Scale 4-6) 08/08/16 10:00 08/15/16 09:59 08/10/16 09:13 Albuterol/ Ipratropium (DuoNeb 0.5-3(2.5)mg/3ml) 3 ml Q4H PRN HHN Shortness of Breath 08/06/16 19:00 08/11/16 18:59 Amlodipine Besylate (Norvasc) 2.5 mg DAILY ORAL 08/08/16 10:00 09/07/16 09:59 08/10/16 09:01 Clonidine HCl (Catapres) 0.1 mg EVERY 8 HOURS ORAL 08/07/16 14:00 09/06/16 13:59 08/10/16 06:31 Clonidine HCl (Catapres) 0.1 mg Q4H PRN ORAL SBP>160 08/06/16 19:00 09/05/16 18:59 08/07/16 10:46 Dextrose (Dextrose 50%) STAT PRN IV Hypoglycemia 08/06/16 19:00 09/05/16 18:59 Docusate Sodium (Colace) 100 mg THREE TIMES A DAY ORAL 08/08/16 13:00 09/07/16 12:59 08/10/16 09:00 Duloxetine HCl (Cymbalta) 20 mg DAILY ORAL 08/07/16 09:00 09/06/16 08:59 08/10/16 09:00 Ergocalciferol (Drisdol) 50,000 intlu QWEEK ORAL 08/07/16 12:00 09/06/16 11:59 08/07/16 13:31 Heparin Sodium (Porcine) (Heparin 5000 units/ml) 5,000 units EVERY 12 HOURS SUBQ 08/06/16 21:00 09/05/16 20:59 08/10/16 09:03 Insulin Aspart (NovoLOG) 4 units NOVOTIAC SUBQ 08/10/16 11:50 09/09/16 11:49 Insulin Aspart (NovoLOG) start today at 0,800 BEFORE MEALS AND HS SUBQ 08/06/16 21:00 09/05/16 20:59 08/10/16 06:35 Insulin Detemir (Levemir) 14 units DAILY SUBQ 08/08/16 09:00 09/07/16 08:59 08/10/16 09:04 Magnesium Hydroxide (Mom) 30 ml Q6H PRN ORAL Constipation 2/23/17 17:15 09/08/16 17:14 08/09/16 22:14 Ondansetron HCl (Zofran) 4 mg Q6H PRN IVP Nausea & Vomiting 08/06/16 19:00 09/05/16 18:59 Pantoprazole (Protonix) 40 mg BID ORAL 08/07/16 09:00 09/06/16 08:59 08/10/16 09:01 Polyethylene Glycol (Miralax) 17 gm DAILYPRN PRN ORAL Constipation 08/06/16 19:00 09/05/16 18:59 08/07/16 05:23 Tamsulosin HCl (Flomax) 0.4 mg BID ORAL 08/09/16 09:00 09/08/16 08:59 08/10/16 09:00 Laboratory Tests 08/10/16 04:30: White Blood Count 6.2, Red Blood Count 3.03L, Hemoglobin 9.2L, Hematocrit 28.7L , Mean Corpuscular Volume 95, Mean Corpuscular Hemoglobin 30.2, Mean Corpuscular Hemoglobin Concent 31.9L, Red Cell Distribution Width 15.7H, Platelet Count 167#, Mean Platelet Volume 8.4, Neutrophils (%) (Auto) 73.4, Lymphocytes (%) (Auto) 18.2L, Monocytes (%) (Auto) 6.1, Eosinophils (%) (Auto) 1.3, Basophils (%) (Auto) 0.9, Sodium Level 136, Potassium Level 4.5, Chloride Level 93L, Carbon Dioxide Level 30, Anion Gap 13, Blood Urea Nitrogen 9, Creatinine 0.8, Estimat Glomerular Filtration Rate > 60, Glucose Level 276H, Calcium Level 8.1L Height (Feet): 5 Height (Inches): 4.00 Weight (Pounds): 150 General Appearance: no apparent distress Cardiovascular: regular rhythm Respiratory/Chest: lungs clear Objective other PE not changed KYMBERLY SEAMAN Aug 10, 2016 09:54
[2016-08-10 12:00] VITALS: BP 153/83
--- NOTE | 2016-08-10 14:22 | Discharge Summary ---
Discharge Summary Hospital Course Date of Admission Aug 04, 2016 at 09:51 Date of Discharge Admitting Diagnosis hyperglycemia HPI Tricia Carpio is a 45 year old female who was admitted on Aug 04, 2016 at 09 :51 for Hyperglycemia Hospital Course The patient was seen and examined at bedside and all new and available data was reviewed in the patients chart. Last 24 Hour Vital Signs Date Time Temp Pulse Resp B/P Pulse Ox O2 Delivery O2 Flow Rate FiO2 08/10/16 13:54 153/83 08/10/16 12:00 97.7 83 18 153/83 95 Room Air 08/10/16 10:26 160/83 08/10/16 10:12 97.6 08/10/16 09:01 85 151/83 08/10/16 08:00 98.1 82 18 160/92 96 Room Air 08/10/16 06:59 84 18 Room Air 08/10/16 06:31 151/83 08/10/16 04:00 97.6 85 18 151/83 98 Room Air 08/10/16 00:00 97.9 87 18 172/91 98 Room Air 08/09/16 22:30 97.7 87 16 160/88 97 Room Air 08/09/16 21:10 169/76 08/09/16 20:00 97.3 87 20 169/96 97 Room Air 08/09/16 19:53 92 20 Room Air 21 08/09/16 16:00 97.7 87 20 149/81 95 Room Air GENERAL: The patient is a well-developed, well-nourished , in no apparent distress. HEENT: Pupils are equal and responsive to light and accommodation. Extraocular movements are intact. NECK: Supple. No lymphadenopathy. CHEST: Lungs are clear to auscultation bilaterally without wheezes or rales. CARDIOVASCULAR: Regular rhythm and rate. S1 and S2 normal without murmurs. ABDOMEN: Soft, nontender, and nondistended. Positive bowel sounds. No rebound or guarding EXTREMITIES: Negative for clubbing cyanosis or edema. RECTAL/GENITAL: Refused. NEUROLOGIC: Neurologically cranial nerves II through XII are grossly intact without focal deficits. Motor strength is 5/5 bilaterally. Labs Test 08/08/16 05:00 08/08/16 07:35 08/09/16 06:05 08/10/16 04:30 Urine Eosinophils None seen White Blood Count 5.6 K/UL (4.8-10.8) 5.7 K/UL (4.8-10.8) 6.2 K/UL (4.8-10.8) Red Blood Count 3.30 M/UL (4.20-5.40) 3.27 M/UL (4.20-5.40) 3.03 M/UL (4.20-5.40) Hemoglobin 9.9 G/DL (12.0-16.0) 9.8 G/DL (12.0-16.0) 9.2 G/DL (12.0-16.0) Hematocrit 31.6 % (37.0-47.0) 31.1 % (37.0-47.0) 28.7 % (37.0-47.0) Mean Corpuscular Volume 96 FL (80-99) 95 FL (80-99) 95 FL (80-99) Mean Corpuscular Hemoglobin 30.0 PG (27.0-31.0) 30.0 PG (27.0-31.0) 30.2 PG (27.0-31.0) Mean Corpuscular Hemoglobin Concent 31.3 G/DL (32.0-36.0) 31.5 G/DL (32.0-36.0) 31.9 G/DL (32.0-36.0) Red Cell Distribution Width 15.9 % (11.6-14.8) 15.8 % (11.6-14.8) 15.7 % (11.6-14.8) Platelet Count 162 K/UL (150-450) 111 K/UL (150-450) 167 K/UL (150-450) Mean Platelet Volume 9.2 FL (6.5-10.1) 8.6 FL (6.5-10.1) 8.4 FL (6.5-10.1) Neutrophils (%) (Auto) % (45.0-75.0) 60.2 % (45.0-75.0) 73.4 % (45.0-75.0) Lymphocytes (%) (Auto) % (20.0-45.0) 31.0 % (20.0-45.0) 18.2 % (20.0-45.0) Monocytes (%) (Auto) % (1.0-10.0) 6.4 % (1.0-10.0) 6.1 % (1.0-10.0) Eosinophils (%) (Auto) % (0.0-3.0) 1.3 % (0.0-3.0) 1.3 % (0.0-3.0) Basophils (%) (Auto) % (0.0-2.0) 1.2 % (0.0-2.0) 0.9 % (0.0-2.0) Differential Total Cells Counted 100 Neutrophils % (Manual) 60 % (45-75) Lymphocytes % (Manual) 33 % (20-45) Monocytes % (Manual) 6 % (1-10) Eosinophils % (Manual) 1 % (0-3) Basophils % (Manual) 0 % (0-2) Band Neutrophils 0 % (0-8) Platelet Estimate Adequate Platelet Morphology Normal Clumped Platelets 1+ Hypochromasia 1+ Anisocytosis 1+ Sodium Level 142 mEQ/L (135-145) 138 mEQ/L (135-145) 136 mEQ/L (135-145) Potassium Level 4.3 mEQ/L (3.4-4.9) 4.9 mEQ/L (3.4-4.9) 4.5 mEQ/L (3.4-4.9) Chloride Level 103 mEQ/L (98-107) 97 mEQ/L (98-107) 93 mEQ/L (98-107) Carbon Dioxide Level 27 mEQ/L (20-30) 29 mEQ/L (20-30) 30 mEQ/L (20-30) Anion Gap 12 (5-15) 12 (5-15) 13 (5-15) Blood Urea Nitrogen 25 mg/dL (7-23) 14 mg/dL (7-23) 9 mg/dL (7-23) Creatinine 1.2 mg/dL (0.5-0.9) 0.8 mg/dL (0.5-0.9) 0.8 mg/dL (0.5-0.9) Estimat Glomerular Filtration Rate 59.1 mL/min (>60) > 60 mL/min (>60) > 60 mL/min (>60) Glucose Level 93 mg/dL (74-106) 243 mg/dL (74-106) 276 mg/dL (74-106) Uric Acid 6.8 mg/dL (3.0-7.5) Calcium Level 7.3 mg/dL (8.6-10.2) 8.1 mg/dL (8.6-10.2) 8.1 mg/dL (8.6-10.2) Phosphorus Level 2.7 mg/dL (2.5-4.8) Magnesium Level 1.7 mg/dL (1.7-2.5) Total Bilirubin 0.3 mg/dL (0.0-1.2) Aspartate Amino Transf (AST/SGOT) 31 U/L (5-40) Alanine Aminotransferase (ALT/SGPT) 24 U/L (3-33) Alkaline Phosphatase 85 U/L (35-104) Total Protein 5.4 g/dL (6.6-8.7) Albumin 3.0 g/dL (3.5-5.2) Globulin 2.4 g/dL Albumin/Globulin Ratio 1.2 (1.0-2.7) Plan: DC home F/U with My office in 1 week (Patient was seen earlier today. Signature timestamp does not reflect patient encounter time) Aries Hardin MD Discharge Discharge Disposition Patient was discharged to Discharge Diagnoses: Aries Hardin MD Aug 10, 2016 14:22
[2016-08-10] MEDS ORDERED: Tubing IV Secondary IV ONE (15:25)
[2016-08-10] MEDS ORDERED: D5 1/2NS 1000ml IV ONE (15:25)
[2016-08-10 16:19] VITALS: BP 146/79
--- NOTE | 2016-08-10 18:31 | Internal Med Progress Note ---
Subjective Date of Service: Aug 10, 2016 Physician Name JacobsenAnastacio Attending Physician Aries Hardin MD Current Medications Medications (Trade) Dose Ordered Sig/Lizbeth Route PRN Reason Start Time Stop Time Status Last Admin Dose Admin Acetaminophen (Tylenol) 650 mg Q4H PRN ORAL T>100.5 08/06/16 19:00 09/05/16 18:59 Acetaminophen/ Hydrocodone Bitart ([place] 5/325) 1 tab Q4H PRN ORAL Moderate Pain (Pain Scale 4-6) 08/08/16 10:00 08/15/16 09:59 08/10/16 09:13 Albuterol/ Ipratropium (DuoNeb 0.5-3(2.5)mg/3ml) 3 ml Q4H PRN HHN Shortness of Breath 08/06/16 19:00 08/11/16 18:59 Amlodipine Besylate (Norvasc) 5 mg DAILY ORAL 08/11/16 09:00 09/10/16 08:59 Clonidine HCl (Catapres) 0.1 mg EVERY 8 HOURS ORAL 08/07/16 14:00 09/06/16 13:59 08/10/16 13:54 Clonidine HCl (Catapres) 0.1 mg Q4H PRN ORAL SBP>160 08/06/16 19:00 09/05/16 18:59 08/10/16 10:26 Dextrose (Dextrose 50%) STAT PRN IV Hypoglycemia 08/06/16 19:00 09/05/16 18:59 08/10/16 16:36 Docusate Sodium (Colace) 100 mg THREE TIMES A DAY ORAL 08/08/16 13:00 09/07/16 12:59 08/10/16 18:08 Duloxetine HCl (Cymbalta) 20 mg DAILY ORAL 08/07/16 09:00 09/06/16 08:59 08/10/16 09:00 Ergocalciferol (Drisdol) 50,000 intlu QWEEK ORAL 08/07/16 12:00 09/06/16 11:59 08/07/16 13:31 Heparin Sodium (Porcine) (Heparin 5000 units/ml) 5,000 units EVERY 12 HOURS SUBQ 08/06/16 21:00 09/05/16 20:59 08/10/16 09:03 Insulin Aspart (NovoLOG) 4 units NOVOTIAC SUBQ 08/10/16 11:50 09/09/16 11:49 08/10/16 11:54 Insulin Aspart (NovoLOG) start today at 0,800 BEFORE MEALS AND HS SUBQ 08/06/16 21:00 09/05/16 20:59 08/10/16 11:53 Insulin Detemir (Levemir) 14 units DAILY SUBQ 08/08/16 09:00 09/07/16 08:59 08/10/16 09:04 Magnesium Hydroxide (Mom) 30 ml Q6H PRN ORAL Constipation 08/09/16 17:15 09/08/16 17:14 08/09/16 22:14 Ondansetron HCl (Zofran) 4 mg Q6H PRN IVP Nausea & Vomiting 08/06/16 19:00 09/05/16 18:59 Pantoprazole (Protonix) 40 mg BID ORAL 08/07/16 09:00 09/06/16 08:59 08/10/16 18:09 Polyethylene Glycol (Miralax) 17 gm DAILYPRN PRN ORAL Constipation 08/06/16 19:00 09/05/16 18:59 08/07/16 05:23 Tamsulosin HCl (Flomax) 0.4 mg BID ORAL 08/09/16 09:00 09/08/16 08:59 08/10/16 18:09 Allergies: Coded Allergies: No Known Allergies (Unverified , 04/24/14) ROS Limited/Unobtainable: No Constitutional: Reports: no symptoms HEENT: Reports: no symptoms Cardiovascular: Reports: no symptoms Respiratory: Reports: no symptoms Gastrointestinal/Abdominal: Reports: no symptoms Genitourinary: Reports: no symptoms Neurologic/Psychiatric: Reports: no symptoms Subjective 45 YO F admitted with hyperglycemia and diabetic ketoacidosis. Cover for Int Med -Dr Hardin. Able to void without escamilla. Await discharge home today. Objective Last Vital Signs Date Time Temp Pulse Resp B/P Pulse Ox O2 Delivery O2 Flow Rate FiO2 08/10/16 16:19 97.9 80 19 146/79 96 Room Air 08/09/16 19:53 21 Laboratory Tests Test 08/10/16 04:30 White Blood Count 6.2 K/UL (4.8-10.8) Red Blood Count 3.03 M/UL (4.20-5.40) L Hemoglobin 9.2 G/DL (12.0-16.0) L Hematocrit 28.7 % (37.0-47.0) L Mean Corpuscular Volume 95 FL (80-99) Mean Corpuscular Hemoglobin 30.2 PG (27.0-31.0) Mean Corpuscular Hemoglobin Concent 31.9 G/DL (32.0-36.0) L Red Cell Distribution Width 15.7 % (11.6-14.8) H Platelet Count 167 K/UL (150-450) # Mean Platelet Volume 8.4 FL (6.5-10.1) Neutrophils (%) (Auto) 73.4 % (45.0-75.0) Lymphocytes (%) (Auto) 18.2 % (20.0-45.0) L Monocytes (%) (Auto) 6.1 % (1.0-10.0) Eosinophils (%) (Auto) 1.3 % (0.0-3.0) Basophils (%) (Auto) 0.9 % (0.0-2.0) Sodium Level 136 mEQ/L (135-145) Potassium Level 4.5 mEQ/L (3.4-4.9) Chloride Level 93 mEQ/L (98-107) L Carbon Dioxide Level 30 mEQ/L (20-30) Anion Gap 13 (5-15) Blood Urea Nitrogen 9 mg/dL (7-23) Creatinine 0.8 mg/dL (0.5-0.9) Estimat Glomerular Filtration Rate > 60 mL/min (>60) Glucose Level 276 mg/dL (74-106) H Calcium Level 8.1 mg/dL (8.6-10.2) L Intake and Output 08/09/16 08/10/16 19:00 07:00 Intake Total 840 ml 500 ml Output Total 2500 ml Balance 840 ml -2000 ml Intake Oral 840 ml 500 ml Output Urine Total 2500 ml Objective General Appearance: WD/WN, no apparent distress, alert EENT: PERRL/EOMI, normal ENT inspection, TMs normal Neck: non-tender, normal alignment, supple, normal inspection Cardiovascular: normal peripheral pulses, normal rate, regular rhythm, no gallop/murmur, no JVD Respiratory/Chest: chest wall non-tender, lungs clear, normal breath sounds, no respiratory distress, no accessory muscle use Abdomen: normal bowel sounds, non tender, soft, no organomegaly, no mass Extremities: normal range of motion, non-tender 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 Reg insulin drip discontinued; cont novolog sliding scale and levemir (2) Diabetic ketoacidosis, type I (3) HTN (hypertension) Assessment & Plan: Continue prn clonidine. (4) ARF (acute renal failure) Assessment & Plan: See nephrology note. (5) GERD (gastroesophageal reflux disease) (6) Depression Assessment & Plan: Cont cymbalta. (7) Urinary retention Assessment & Plan: Continue Escamilla cath. Assessment/Plan Discharge home today. F/U Dr Hayes for insulin pump ANASTACIO JACOBSEN Aug 10, 2016 18:31
== END 2016-08-10 20:15 | disposition home or self-care (01) | DRG 637 ==
LOC: EDBD 09:28 → EMR 09:47 → ICU 09:51 → EDBEDREQ 15:05 → 4W 08-06 18:43
DX: E10.10 Type 1 diabetes mellitus with ketoacidosis without coma (principal); N17.0 Acute kidney failure with tubular necrosis; K31.84 Gastroparesis; I10 Essential (primary) hypertension; F32.9 Major depressive disorder, single episode, unspecified; K21.9 Gastro-esophageal reflux disease without esophagitis; Z79.4 Long term (current) use of insulin; E87.5 Hyperkalemia; D64.9 Anemia, unspecified; Z91.19 Patient's noncompliance with other medical treatment and regimen; E10.43 Type 1 diabetes mellitus with diabetic autonomic (poly)neuropathy; R33.9 Retention of urine, unspecified
CPT/HCPCS: 36415; 36600; 71010; 76775; 80048; 80053; 80061; 80076; 81003; 81025; 82009; 82550; 82607; 82728; 82746; 82803; 82962; 82977; 83036; 83540; 83550; 83690; 83735; 83880; 84100; 84300; 84443; 84550; 85007; 85025; 85610; 85651; 85730; 86140; 87081; 89050; 93005; 94664; J1815; J2405; S5561

== ENCOUNTER 2016-08-12 13:40 | Inpatient (IN) | payer OTHER ==
[2016-08-12] VITALS (8 sets, daily range): BP systolic 123–225; BP diastolic 59–107
[~2016-08-12] VITALS: Ht 162.6 cm; Wt 54.4 kg
[~2016-08-12 13:40] MED LIST changes: +LANTUS SOL100 UNIT/1 SUBQ; +MELOXICAM10 GM MC
[2016-08-12] MEDS ORDERED: LYRICA75 M1 ORAL (13:54)
[2016-08-12] MEDS ORDERED: Oxycodone/Acetaminophen 5-325 ORAL ONE (14:30)
--- NOTE | 2016-08-12 14:50 | Emergency Room Report ---
History of Present Illness General Chief Complaint: Headache Source: Patient Present Illness HPI 45 YO F presents with 2 days severe headache to front/top of head, pressure-like , 8/10, non-radiating, some blurry vision. Took Alleve with minimal improvement. Denies focal weakness, fever/chills, neck pain/stiffness, sick contacts. has history of HTN, compliant with 2x a day Lisinopril. Took today. Just discharged from [facility] 2 days ago after admission for DKA. Patient states for that visit she had turned her insulin pump off, now has it back on. Is compliant with DM meds. Fingerstick in ED is 70 - was given juice by RN. Allergies: Coded Allergies: No Known Allergies (Unverified , 04/24/14) Patient History Past Medical History: DM, HTN Past Surgical History: none Pertinent Family History: none Social History: Denies: alcohol use, drug use, smoking Last Menstrual Period: 04/2016 Now: No Immunizations: UTD Reviewed Nursing Documentation: PMH: Agreed, PSxH: Agreed Nursing Documentation-PMH Past Medical History: No History, Except For Hx Hypertension: Yes Hx Pacemaker: No Hx Diabetes: Yes - Type 1 Hx Cancer: No Hx Gastrointestinal Problems: Yes Hx Neurological Problems: No Hx Concentration Difficulty: No Review of Systems All Other Systems: negative except mentioned in HPI Physical Exam Vital Signs Date Time Temp Pulse Resp B/P Pulse Ox O2 Delivery O2 Flow Rate FiO2 08/12/16 13:47 98.1 92 14 199/91 99 Room Air Sp02 EP Interpretation: reviewed, abnormal General Appearance: normal inspection, well appearing, alert, GCS 15, non-toxic , mild distress Head: normocephalic, atraumatic Eyes: bilateral eye EOMI, bilateral eye PERRL, bilateral eye other - vision 20/ [address] ENT: normal ENT inspection, hearing grossly normal, normal pharynx, no angioedema, normal voice Neck: normal inspection, full range of motion, supple, no bony tend Respiratory: normal inspection, lungs clear, normal breath sounds, no respiratory distress, no retraction, no wheezing Cardiovascular #1: regular rate, rhythm, no edema Gastrointestinal: normal inspection, normal bowel sounds, non tender, soft, no guarding, no hernia Genitourinary: no CVA tenderness Musculoskeletal: normal inspection, back normal, normal range of motion, Dontrell' s Sign negative Neurologic: normal inspection, alert, oriented x3, responsive, 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 Concern for hypertensive urgency and other end-organ damage. PO percocet and PO Norvasc given without much improvement in BP Plan IV access, IV hydralazine Labs ECG CT head Admit to tele EKG Diagnostic Results Rate: normal Rhythm: NSR ST Segments: no acute changes ASA given to the pt in ED: No Rhythm Strip Diag. Results EP Interpretation: yes Rate: 95 Rhythm: NSR, no PVC's, no ectopy Reevaluation Time: 15:49 Last Vital Signs Date Time Temp Pulse Resp B/P Pulse Ox O2 Delivery O2 Flow Rate FiO2 08/12/16 14:32 98.1 102 19 225/107 99 Room Air Status: improved Reevaluation Impression SerumCr and Troponin normal. Glucose 168 CT head negative for SAH on ED review BP down to 170/79 after IV hydralazine Endorsed to Dr Hardin at 350pm for tele admission Disposition: ADMITTED INPATIENT Condition: Serious Referrals: Aries Hardin MD (PCP) DEDRICK EL M.D. Aug 12, 2016 14:50
[2016-08-12 16:16] LABS: BASOPHILS % (AUTO) 2.1 % (0.0-2.0); EOSINOPHILS % (AUTO) 1.5 % (0.0-3.0); LYMPHOCYTES % (AUTO) 33.7 % (20.0-45.0); MEAN CORPUSCULAR HEMOGLOBIN 30.7 PG (27.0-31.0); MEAN CORPUSCULAR HGB CONC 32.3 G/DL (32.0-36.0); MEAN CORPUSCULAR VOLUME 95 FL (80-99); MEAN PLATELET VOLUME 6.9 FL (6.5-10.1); MONOCYTES % (AUTO) 9.9 % (1.0-10.0); NEUTROPHILS % (AUTO) 52.7 % (45.0-75.0); PLATELET COUNT 298 K/UL (150-450); RED BLOOD COUNT 3.28 M/UL (4.20-5.40); RED CELL DISTRIBUTION WIDTH 15.6 % (11.6-14.8); WHITE BLOOD COUNT 5.2 K/UL (4.8-10.8)
[2016-08-12 16:27] LABS: TROPONIN I < 0.30 ng/mL (<=0.30)
[2016-08-12 16:28] LABS: ALANINE AMINOTRANSFERASE 35 U/L (3-33); ALBUMIN/GLOBULIN RATIO 0.9 (1.0-2.7); ANION GAP 14 (5-15); ASPARTATE AMINO TRANSFERASE 64 U/L (5-40); CALCIUM 9.1 mg/dL (8.6-10.2); CARBON DIOXIDE 34 mEQ/L (20-30); CHLORIDE 91 mEQ/L (98-107); CREATININE 0.9 mg/dL (0.5-0.9); GLOMERULAR FILTRATION RATE > 60 mL/min (>60); HEMOLYSIS 178; POTASSIUM 4.9 mEQ/L (3.4-4.9); SODIUM 139 mEQ/L (135-145); TOTAL PROTEIN 6.7 g/dL (6.6-8.7)
[2016-08-12 16:38] LABS: CKMB < 1.5 ng/mL (< 3.8)
[2016-08-12] MEDS ORDERED: Enalaprilat 2.5mg/2ml Inj IV PRN (19:30)
[2016-08-12] MEDS ORDERED: Labetalol 5mg/ml 20ml vial IV PRN (19:30)
[2016-08-12] MEDS ORDERED: Miralax 17gm pkt ORAL PRN (19:30)
[2016-08-12] MEDS ORDERED: DuoNeb 0.5-3(2.5)mg/3ml neb HHN PRN (19:30)
[2016-08-12] MEDS ORDERED: Diltiazem 25mg/5ml IV PRN (19:30)
[2016-08-12] MEDS ORDERED: Nitroglycerin Subl 0.4mg tab (Bottle Of 25) SL PRN (19:30)
[2016-08-12] MEDS ORDERED: NovoLOG Insulin Flexpen SUBQ SCH (21:00)
[2016-08-12] MEDS: Sucralfate 1gm tab ORAL SCH (21:00)
[2016-08-12] MEDS: Heparin 5000 units/ml inj SUBQ SCH (21:00)
[2016-08-13] VITALS (16 sets, daily range): BP systolic 102–183; BP diastolic 47–101
[2016-08-13] MEDS ORDERED: Morphine Sulfate 2mg/ml Inj IVP SCH
[2016-08-13] MEDS: Morphine Sulfate 2mg/ml Inj IVP PRN ×3 (00:55→14:23)
[2016-08-13] MEDS: NovoLOG Insulin Flexpen SUBQ SCH ×2 (01:02→06:34)
[2016-08-13] MEDS ORDERED: MELOXICAM15 MG PO (01:42)
[2016-08-13] MEDS ORDERED: LYRICA50 MG PO (01:42)
[2016-08-13 05:41] LABS: BASOPHILS % (AUTO) 0.6 % (0.0-2.0); EOSINOPHILS % (AUTO) 0.1 % (0.0-3.0); LYMPHOCYTES % (AUTO) 22.6 % (20.0-45.0); MEAN CORPUSCULAR HEMOGLOBIN 30.6 PG (27.0-31.0); MEAN CORPUSCULAR HGB CONC 29.7 G/DL (32.0-36.0); MEAN CORPUSCULAR VOLUME 103 FL (80-99); MEAN PLATELET VOLUME 6.7 FL (6.5-10.1); MONOCYTES % (AUTO) 10.6 % (1.0-10.0); NEUTROPHILS % (AUTO) 66.1 % (45.0-75.0); PLATELET COUNT 297 K/UL (150-450); RED BLOOD COUNT 2.88 M/UL (4.20-5.40); WHITE BLOOD COUNT 4.9 K/UL (4.8-10.8)
[2016-08-13 06:15] LABS: CHOLESTEROL/HDL RATIO 3.2 (3.3-4.4); CRP QUANT 3.4 mg/dL (< 0.5)
[2016-08-13 06:17] LABS: TROPONIN I < 0.30 ng/mL (<=0.30)
[2016-08-13 06:26] LABS: THYROID STIMULATING HORMONE 1.97 uIU/mL (0.300-4.500)
[2016-08-13] MEDS ORDERED: Levemir Flexpen SUBQ SCH (06:30)
[2016-08-13 08:03] LABS: ALBUMIN/GLOBULIN RATIO 1.1 (1.0-2.7); CALCIUM 8.7 mg/dL (8.6-10.2); CREATININE 1.6 mg/dL (0.5-0.9); GLOMERULAR FILTRATION RATE 42.4 mL/min (>60); TOTAL PROTEIN 5.7 g/dL (6.6-8.7)
[2016-08-13] MEDS ORDERED: Lisinopril 20mg tab ORAL SCH (09:00)
[2016-08-13] MEDS ORDERED: Insulin Rate Change 1 Each MISC PRN (09:45)
[2016-08-13] MEDS: Sucralfate 1gm tab ORAL SCH ×4 (09:50→20:41)
[2016-08-13] MEDS: Lyrica 75mg cap ORAL SCH ×4 (09:51→17:55)
[2016-08-13] MEDS: Heparin 5000 units/ml inj SUBQ SCH ×2 (09:56→20:42)
--- NOTE | 2016-08-13 10:35 | Diagnostic Imaging Report ---
Indications: Chest pain Technique: Portable AP chest Findings: Comparison: 08/06/2016 Cardiac silhouette remains enlarged. Pulmonary vasculature remains within normal limits. Lungs and pleura remain clear. IMPRESSION: No evidence of acute disease, unchanged Stable cardiomegaly
--- NOTE | 2016-08-13 10:42 | Diagnostic Imaging Report ---
Indications: Headache for 2 days, hypertension, dizziness and blurred vision Technique: Continuous helical CT imaging of the brain was performed with nonionic exposure control on a Siemens sensation [address] scanner. Axial and coronal images were reconstructed at 5 mm slice thickness and interval. CTDI volume(s): 70 mGy Total DLP: 1277 mGy-cm Findings: Comparison: None Mild low attenuation is present in the bilateral periventricular white matter. Ventricles, cisterns, and sulci are only, diffusely prominent. No evidence of mass or hemorrhage, mass effect, midline shift, hydrocephalus, or increased intracranial pressure. Bone window images are unremarkable. Visualized paranasal sinuses and mastoid air cells are clear. IMPRESSION: No evidence of acute intracranial pathology Bilateral cerebral periventricular white matter low attenuation, nonspecific, likely chronic microvascular ischemic in nature. Mild atrophy, prominent for age. Written preliminary report placed in PACS 08/12/[address] scanner at [facility] is accredited by the [employer] and the scans are performed using protocols designed to limit radiation exposure to as low as reasonably achievable to attain images of sufficient resolution adequate for diagnostic evaluation.
[2016-08-13 11:12] LABS: CALCIUM 8.9 mg/dL (8.6-10.2); CREATININE 1.4 mg/dL (0.5-0.9); GLOMERULAR FILTRATION RATE 49.6 mL/min (>60); POTASSIUM 4.9 mEQ/L (3.4-4.9)
[2016-08-13] MEDS ORDERED: NovoLOG Insulin Flexpen SUBQ SCH (11:30)
[2016-08-13] MEDS ORDERED: Lidocaine 1% Plain 30 ml INJ ONE (11:30)
[2016-08-13] MEDS ORDERED: Heparin 2000 units/Ns 1000ml INJ ONE (11:30)
[2016-08-13] MEDS ORDERED: Sodium Bicarbonate 8.4% 50ml Inj IV ONE (11:30)
--- NOTE | 2016-08-13 11:35 | History & Physical ---
History and Physical History & Physicial Glucose = 728. Dictated for Int Med-Dr Hardin no. [id number]. CHRISTOS JACOBSEN Aug 13, 2016 11:35
--- NOTE | 2016-08-13 12:01 | Neurology Progress Note ---
Objective Physical Exam Last Vital Signs Date Time Temp Pulse Resp B/P Pulse Ox O2 Delivery O2 Flow Rate FiO2 08/13/16 11:18 98.1 95 18 146/75 97 Room Air Laboratory Tests Test 08/12/16 15:58 08/13/16 05:10 08/13/16 10:30 White Blood Count 5.2 K/UL (4.8-10.8) 4.9 K/UL (4.8-10.8) Red Blood Count 3.28 M/UL (4.20-5.40) L 2.88 M/UL (4.20-5.40) L Hemoglobin 10.1 G/DL (12.0-16.0) L 8.8 G/DL (12.0-16.0) L Hematocrit 31.2 % (37.0-47.0) L 29.7 % (37.0-47.0) L Mean Corpuscular Volume 95 FL (80-99) 103 FL (80-99) #H Mean Corpuscular Hemoglobin 30.7 PG (27.0-31.0) 30.6 PG (27.0-31.0) Mean Corpuscular Hemoglobin Concent 32.3 G/DL (32.0-36.0) 29.7 G/DL (32.0-36.0) L Red Cell Distribution Width 15.6 % (11.6-14.8) H 17.0 % (11.6-14.8) H Platelet Count 298 K/UL (150-450) 297 K/UL (150-450) Mean Platelet Volume 6.9 FL (6.5-10.1) 6.7 FL (6.5-10.1) Neutrophils (%) (Auto) 52.7 % (45.0-75.0) 66.1 % (45.0-75.0) Lymphocytes (%) (Auto) 33.7 % (20.0-45.0) 22.6 % (20.0-45.0) Monocytes (%) (Auto) 9.9 % (1.0-10.0) 10.6 % (1.0-10.0) H Eosinophils (%) (Auto) 1.5 % (0.0-3.0) 0.1 % (0.0-3.0) Basophils (%) (Auto) 2.1 % (0.0-2.0) H 0.6 % (0.0-2.0) Sodium Level 139 mEQ/L (135-145) 136 mEQ/L (135-145) 137 mEQ/L (135-145) Potassium Level 4.9 mEQ/L (3.4-4.9) 5.0 mEQ/L (3.4-4.9) H 4.9 mEQ/L (3.4-4.9) Chloride Level 91 mEQ/L (98-107) L 84 mEQ/L (98-107) L 88 mEQ/L (98-107) L Carbon Dioxide Level 34 mEQ/L (20-30) H 10 mEQ/L (20-30) L 18 mEQ/L (20-30) L Anion Gap 14 (5-15) 42 (5-15) H 31 (5-15) H Blood Urea Nitrogen 9 mg/dL (7-23) 24 mg/dL (7-23) H 22 mg/dL (7-23) Creatinine 0.9 mg/dL (0.5-0.9) 1.6 mg/dL (0.5-0.9) #H 1.4 mg/dL (0.5-0.9) H Estimat Glomerular Filtration Rate > 60 mL/min (>60) 42.4 mL/min (>60) 49.6 mL/min (>60) Glucose Level 168 mg/dL (74-106) H 728 mg/dL (74-106) #*H 435 mg/dL (74-106) #H Calcium Level 9.1 mg/dL (8.6-10.2) 8.7 mg/dL (8.6-10.2) 8.9 mg/dL (8.6-10.2) Total Bilirubin 0.4 mg/dL (0.0-1.2) 0.2 mg/dL (0.0-1.2) Aspartate Amino Transf (AST/SGOT) 64 U/L (5-40) H 49 U/L (5-40) H Alanine Aminotransferase (ALT/SGPT) 35 U/L (3-33) H 35 U/L (3-33) H Alkaline Phosphatase 120 U/L (35-104) H 114 U/L (35-104) H Total Creatine Kinase 114 U/L (26-140) Creatine Kinase MB < 1.5 ng/mL (< 3.8) Creatine Kinase MB Relative Index Troponin I < 0.30 ng/mL (<=0.30) < 0.30 ng/mL (<=0.30) Total Protein 6.7 g/dL (6.6-8.7) 5.7 g/dL (6.6-8.7) L Albumin 3.2 g/dL (3.5-5.2) L 3.1 g/dL (3.5-5.2) L Globulin 3.5 g/dL 2.6 g/dL Albumin/Globulin Ratio 0.9 (1.0-2.7) L 1.1 (1.0-2.7) Prothrombin Time 10.0 SEC (9.30-11.50) Prothromb Time International Ratio 1.0 (0.9-1.1) Activated Partial Thromboplast Time 26 SEC (23-33) C-Reactive Protein, Quantitative 3.4 mg/dL (< 0.5) H Triglycerides Level 216 mg/dL (< 150) H Cholesterol Level 181 mg/dL (< 200) LDL Cholesterol 82 mg/dL (60-99) HDL Cholesterol 56 mg/dL (> 60) Cholesterol/HDL Ratio 3.2 (3.3-4.4) L Thyroid Stimulating Hormone (TSH) 1.970 uIU/mL (0.300-4.500) Hemoglobin A1c 11.1 % (< 6.0) H Impression/Recommendations Problems: (1) Hypertensive urgency (2) Headache (3) Diabetic ketoacidosis, type I (4) HTN (hypertension) (5) Anemia Status: stable Recommendations # [id number] add asa 81mg qod consider statins. IFRAH LA Aug 13, 2016 12:01
[2016-08-13] MEDS ORDERED: Nitroglycerin Subl 0.4mg tab (Bottle Of 25) SL PRN (13:30)
[2016-08-13] MEDS ORDERED: Enalaprilat 2.5mg/2ml Inj IV PRN (13:30)
[2016-08-13] MEDS ORDERED: Labetalol 5mg/ml 20ml vial IV PRN (13:30)
[2016-08-13] MEDS ORDERED: Diltiazem 25mg/5ml IV PRN (13:30)
[2016-08-13] MEDS ORDERED: DuoNeb 0.5-3(2.5)mg/3ml neb HHN PRN (13:30)
[2016-08-13] MEDS ORDERED: Miralax 17gm pkt ORAL PRN (14:00)
[2016-08-13] MEDS: Insulin Rate Change 1 Each MISC PRN ×6 (15:00→23:59)
--- NOTE | 2016-08-13 15:28 | History and Physical Report ---
DATE OF ADMISSION: 08/12/2016 CHIEF COMPLAINT: The patient is a 45-year-old female who presents with chief complaint of headache. HISTORY OF PRESENT ILLNESS: The patient was admitted to [facility] from 08/04/2016 to 08/10/2016. The patient was admitted at that time for diabetic ketoacidosis. The patient was discharged on 08/10/2016. The patient states she has had a headache since that time. Headache is frontal. The patient denies nausea and vomiting with a headache. The patient does complain of photophobia with the headache. The patient presented to [facility]. The patient was found to have elevated blood pressure. The patient was admitted to [facility] for headache to rule out uncontrolled hypertension. REVIEW OF SYSTEMS: Constitutional: The patient denies weight loss or weight gain. The patient denies fevers or chills. HEENT: The patient complains of headache as above. The patient denies ear or throat pain. Cardiovascular: The patient denies palpitation or chest pain. Chest: The patient's denies wheezing or shortness of breath. Abdominal: The patient denies nausea, vomiting, diarrhea, or constipation. Genitourinary: The patient denies dysuria or increased frequency of urination. Neuromuscular: The patient denies seizures or generalized weakness. PAST MEDICAL HISTORY: Significant for, 1. Type 1 diabetes. 2. Hypertension. 3. Major depression. 4. Diabetic gastroparesis. 5. Gastroesophageal reflux disease. PAST SURGICAL HISTORY: The patient denies. CURRENT MEDICATIONS: 1. Lisinopril 20 mg one tablet p.o. twice daily. 2. Lantus 18 units subcutaneously every morning. 3. Humalog sliding scale. 4. Lyrica 75 mg one tablet p.o. three times daily. 5. The patient was supposed to be taking amlodipine, however, has not been taking this since discharge from the hospital on 08/10/2016. ALLERGIES: No known drug allergies. SOCIAL HISTORY: The patient is single and lives with her aunt. 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 The patient denies tobacco or alcohol use. PHYSICAL EXAMINATION: VITAL SIGNS: Temperature 98.0 to 98.2, pulse elevated at 94 to 102, respirations 16 to 18, and blood pressure 105 to 129/55 to 65. GENERAL: The patient is well-developed, well-nourished, female, in no apparent distress. HEENT: Eyes, pupils are equal and responsive to light and accommodation. Extraocular movements are intact. NECK: Supple without lymphadenopathy. CHEST: Lungs are clear to auscultation bilaterally without wheezes or rales. CARDIOVASCULAR: Regular rate. S1 and S2 are normal without murmurs, rubs, or gallops. ABDOMEN: Soft, nontender, and nondistended. Positive bowel sounds. No evidence of hepatosplenomegaly. Currently, no rebound or guarding noted. EXTREMITIES: Negative for clubbing, cyanosis, or edema. RECTAL/GENITALIA: Refused. NEUROLOGICAL: Cranial nerves II through XII are grossly intact without focal deficits. Motor strength is 5/5 bilaterally. Deep tendon reflexes are 2+ plantar. LABORATORY STUDIES: WBC 5.2, hemoglobin 10.1, hematocrit 31.2, and platelets 298,000. Sodium 139, potassium 4.9, chloride 91, CO2 34, BUN 9, creatinine 0.9, and glucose 168. Troponin less than 0.3. ASSESSMENT: This is a 45-year-old female. 1. Headache. 2. Uncontrolled hypertension. 3. Uncontrolled diabetes type 1. 4. Diabetic gastroparesis. 5. Major depression. 6. Gastroesophageal reflux disease. TREATMENT: 1. Headache. The patient has received morphine in the emergency room. The patient currently states she does not have a headache. An MRI of the brain is pending to rule out a mass or acute intracranial bleed. A Neurology consultation was obtained with Dr. Hector. 2. Uncontrolled hypertension. The patient was not taking her Norvasc at home. The patient has been restarted on lisinopril. The patient will be given hydralazine p.r.n. for systolic greater than 150 or diastolic greater than 100. 3. Diabetic gastroparesis. A Gastroenterology consultation was obtained with Dr. Patel.. 4. Major depression. 5. Gastroesophageal reflux disease. Anastacio Wright M.D. DR: REYES JOB#: [id number] CC:
[2016-08-13 16:25] LABS: CALCIUM 8.6 mg/dL (8.6-10.2); CREATININE 1.3 mg/dL (0.5-0.9); GLOMERULAR FILTRATION RATE 53.9 mL/min (>60); POTASSIUM 3.6 mEQ/L (3.4-4.9)
--- NOTE | 2016-08-13 16:48 | GI Initial Consult Note ---
History of Present Illness General Date patient seen: Aug 13, 2016 Time patient seen: 16:47 Reason for Hospitalization: Headache Referring physician: ELIZABETH BURGOS Reason for Consultation: ABDOMINAL PAIN Present Illness HPI HISTORY OF PRESENT ILLNESS: The patient was admitted to [facility] from 08/04/2016 to 08/10/2016. The patient was admitted at that time for diabetic ketoacidosis. The patient was discharged on 08/10/2016. The patient states she has had a headache since that time. Headache is frontal. The patient denies nausea and vomiting with a headache. The patient does complain of photophobia with the headache. The patient presented to [place] [facility]. The patient was found to have elevated blood pressure. The patient was admitted to [facility] for headache to rule out uncontrolled hypertension. GI CONSULT: HPI as noted above. GI consulted for abdominal pain, N&V. Pt [place] [facility] with hypertensive crisis and DKA. She presents today with anemia, abnormal LFTs, hypoalbuminemia and history of s/p EGD with esophagitis + gastritis. Pt currently resting NAD in ICU, currently on insulin gtt. DATE OF PROCEDURE: 04/22/2015 PROCEDURE: Upper endoscopy with biopsy. SUMMARY OF FINDINGS: 1. Esophagitis. 2. Gastritis, status post biopsy. RECOMMENDATIONS: 1. Reflux measures. 2. PPI and Carafate. Home Meds Active Scripts Sucralfate* (CARAFATE*) 1 Gm Tab, 1 GM ORAL QID, #30 TAB Prov:CORNELIUS DENSON 08/16/14 Insulin Detemir (LEVEMIR FLEXPEN) 100 Units/Ml Pen, 26 UNITS SUBQ BEFORE BREAKFAST, #30 EA Prov:CORNELIUS DENSON 08/16/14 Amlodipine Besylate (Norvasc) 5 Mg Tab, 5 MG ORAL DAILY, #30 TAB Prov:CORNELIUS DENSON 08/16/14 Reported Medications Meloxicam* (MELOXICAM*) 15 Mg Tablet, 15 MG PO DAILY, #30 08/13/16 Pregabalin (Lyrica) 50 Mg Capsule, 50 MG PO BID, #60 08/13/16 Pregabalin* (LYRICA*) 75 Mg Capsule, 75 MG ORAL THREE TIMES A DAY, CAP 08/12/16 Pantoprazole* (PROTONIX*) 40 Mg Tablet.dr, 40 MG ORAL DAILY, TAB 03/12/16 Insulin Lispro (HUMALOG) 100 Unit/1 Ml Cartridge, 0 SUBQ, #1 UNITS 0 Refills 04/14/15 Lisinopril (LISINOPRIL*) 5 Mg Tablet, 20 MG ORAL BID, TAB 04/14/15 Duloxetine (Cymbalta) 20 Mg Cap, 20 MG ORAL DAILY, CAP 04/14/15 Discontinued Reported Medications Insulin Glargine (LANTUS) 100 Unit/1 Ml Insuln.pen, 0 SUBQ BEDTIME, #1 EA 0 Refills 08/04/16 Meloxicam (MELOXICAM) 10 Gm Powder, 10 GM MC, GM 08/04/16 Escitalopram Oxalate* (LEXAPRO*) 20 Mg Tablet, 20 MG ORAL DAILY, #30 TAB 03/26/16 Hydrocodone Bit/Acetaminophen 5-325* (NORCO 5-325*) 1 Each Tablet, 1 TAB ORAL Q4H Y for Severe Pain (Pain Scale 7-10), #30 TAB 0 Refills 03/26/16 Med list reviewed/reconciled: Yes Allergies: Coded Allergies: No Known Allergies (Unverified , 04/24/14) Patient History History Provided By: Patient, Medical Record [facility] Narrative PAST MEDICAL HISTORY: Significant for, 1. Type 1 diabetes. 2. Hypertension. 3. Major depression. 4. Diabetic gastroparesis. 5. Gastroesophageal reflux disease. PAST SURGICAL HISTORY: The patient denies. Review of Systems All Other Systems: negative except mentioned in HPI Physical Exam Vital Signs Date Time Temp Pulse Resp B/P Pulse Ox O2 Delivery O2 Flow Rate FiO2 08/12/16 13:47 98.1 92 14 199/91 99 Room Air Sp02 EP Interpretation: reviewed Labs Laboratory Tests Test 08/13/16 05:10 08/13/16 10:30 08/13/16 15:50 White Blood Count 4.9 K/UL (4.8-10.8) Red Blood Count 2.88 M/UL (4.20-5.40) L Hemoglobin 8.8 G/DL (12.0-16.0) L Hematocrit 29.7 % (37.0-47.0) L Mean Corpuscular Volume 103 FL (80-99) #H Mean Corpuscular Hemoglobin 30.6 PG (27.0-31.0) Mean Corpuscular Hemoglobin Concent 29.7 G/DL (32.0-36.0) L Red Cell Distribution Width 17.0 % (11.6-14.8) H Platelet Count 297 K/UL (150-450) Mean Platelet Volume 6.7 FL (6.5-10.1) Neutrophils (%) (Auto) 66.1 % (45.0-75.0) Lymphocytes (%) (Auto) 22.6 % (20.0-45.0) Monocytes (%) (Auto) 10.6 % (1.0-10.0) H Eosinophils (%) (Auto) 0.1 % (0.0-3.0) Basophils (%) (Auto) 0.6 % (0.0-2.0) Prothrombin Time 10.0 SEC (9.30-11.50) Prothromb Time International Ratio 1.0 (0.9-1.1) Activated Partial Thromboplast Time 26 SEC (23-33) Sodium Level 136 mEQ/L (135-145) 137 mEQ/L (135-145) 140 mEQ/L (135-145) Potassium Level 5.0 mEQ/L (3.4-4.9) H 4.9 mEQ/L (3.4-4.9) 3.6 mEQ/L (3.4-4.9) Chloride Level 84 mEQ/L (98-107) L 88 mEQ/L (98-107) L 95 mEQ/L (98-107) L Carbon Dioxide Level 10 mEQ/L (20-30) L 18 mEQ/L (20-30) L 27 mEQ/L (20-30) Anion Gap 42 (5-15) H 31 (5-15) H 18 (5-15) H Blood Urea Nitrogen 24 mg/dL (7-23) H 22 mg/dL (7-23) 21 mg/dL (7-23) Creatinine 1.6 mg/dL (0.5-0.9) #H 1.4 mg/dL (0.5-0.9) H 1.3 mg/dL (0.5-0.9) H Estimat Glomerular Filtration Rate 42.4 mL/min (>60) 49.6 mL/min (>60) 53.9 mL/min (>60) Glucose Level 728 mg/dL (74-106) #*H 435 mg/dL (74-106) #H 171 mg/dL (74-106) #H Calcium Level 8.7 mg/dL (8.6-10.2) 8.9 mg/dL (8.6-10.2) 8.6 mg/dL (8.6-10.2) Total Bilirubin 0.2 mg/dL (0.0-1.2) Aspartate Amino Transf (AST/SGOT) 49 U/L (5-40) H Alanine Aminotransferase (ALT/SGPT) 35 U/L (3-33) H Alkaline Phosphatase 114 U/L (35-104) H Troponin I < 0.30 ng/mL (<=0.30) C-Reactive Protein, Quantitative 3.4 mg/dL (< 0.5) H Total Protein 5.7 g/dL (6.6-8.7) L Albumin 3.1 g/dL (3.5-5.2) L Globulin 2.6 g/dL Albumin/Globulin Ratio 1.1 (1.0-2.7) Triglycerides Level 216 mg/dL (< 150) H Cholesterol Level 181 mg/dL (< 200) LDL Cholesterol 82 mg/dL (60-99) HDL Cholesterol 56 mg/dL (> 60) Cholesterol/HDL Ratio 3.2 (3.3-4.4) L Thyroid Stimulating Hormone (TSH) 1.970 uIU/mL (0.300-4.500) Hemoglobin A1c 11.1 % (< 6.0) H General Appearance: no apparent distress, alert, thin EENT: normal ENT inspection Neck: full range of motion Respiratory: normal breath sounds, no respiratory distress Cardiovascular: normal rate Gastrointestinal: normal inspection, non tender, soft Rectal: deferred Musculoskeletal: normal inspection Neurologic: normal inspection, alert, oriented x3, responsive Psychiatric: normal inspection, judgement/insight normal, memory normal Skin: normal inspection, normal color, no rash Lymphatic: normal inspection, no adenopathy Current Medications Current Medications Medications (Trade) Dose Ordered Sig/Lizbeth Route PRN Reason Start Time Stop Time Status Last Admin Dose Admin Acetaminophen (Tylenol) 650 mg Q4H PRN ORAL FEVER>100.5 08/13/16 13:30 09/12/16 13:29 Albuterol/ Ipratropium (DuoNeb 0.5-3(2.5)mg/3ml) 3 ml Q4H PRN HHN Shortness of Breath 08/13/16 13:30 08/18/16 13:29 Amlodipine Besylate (Norvasc) 5 mg DAILY ORAL 08/14/16 09:00 09/13/16 08:59 Dextrose (Dextrose 50%) STAT PRN IV Hypoglycemia 08/13/16 13:30 09/12/16 13:29 Diltiazem HCl (Cardizem) 10 mg Q1H PRN IV heart rate more than 120, 08/13/16 13:30 09/12/16 13:29 Duloxetine HCl (Cymbalta) 20 mg DAILY ORAL 08/14/16 09:00 09/13/16 08:59 Enalaprilat (Vasotec) 2.5 mg Q6H PRN IV sbp more than 160 08/13/16 13:30 09/12/16 13:29 Heparin Sodium (Porcine) (Heparin 5000 units/ml) 5,000 units EVERY 12 HOURS SUBQ 08/13/16 21:00 09/12/16 20:59 Insulin Human Regular (NovoLIN R) 5 units PRN PRN IV BS 200-299 08/14/16 13:30 09/13/16 13:29 08/13/16 15:07 Insulin Human Regular (NovoLIN R) 10 units PRN PRN IV BS=>300 08/14/16 13:30 09/13/16 13:29 Insulin Human Regular/Sodium Chloride (NovoLIN R/ Sodium Chloride) 101 ml @ 0 mls/hr Q24H IV 08/14/16 14:30 09/13/16 14:29 08/13/16 15:02 Labetalol HCl (Normodyne) 20 mg Q1H PRN IV sbp more than 160 08/13/16 13:30 09/12/16 13:29 08/13/16 14:23 Lisinopril (Prinivil) 20 mg BID ORAL 08/13/16 18:00 09/12/16 17:59 Miscellaneous Medication (Insulin Rate Change) 1 ea PRN PRN MISC Hyperglycemia 08/14/16 13:30 09/13/16 13:29 08/13/16 16:00 Morphine Sulfate (Morphine Sulfate) 2 mg Q6H PRN IVP Severe Pain (Pain Scale 7-10) 08/13/16 13:30 08/20/16 13:29 08/13/16 14:23 Nitroglycerin (Ntg) 0.4 mg Q5MIN X 3 DOSES PRN SL Prn Chest Pain 08/13/16 13:30 09/12/16 13:29 Ondansetron HCl (Zofran) 4 mg Q6H PRN IVP Nausea & Vomiting 08/13/16 13:30 09/12/16 13:29 08/13/16 14:23 Pantoprazole (Protonix) 40 mg ACBREAKFAST ORAL 08/14/16 06:30 09/13/16 06:29 Polyethylene Glycol (Miralax) 17 gm DAILYPRN PRN ORAL Constipation 08/13/16 14:00 09/12/16 13:59 Pregabalin (Lyrica) 75 mg THREE TIMES A DAY ORAL 08/13/16 14:00 09/12/16 13:59 Sodium Chloride (Sodium Chloride 1000ml bag) 1,000 ml @ 75 mls/hr [id number] IV 08/13/16 14:00 09/12/16 13:59 08/13/16 14:11 Sucralfate (Carafate) 1 gm QID ORAL 08/13/16 18:00 09/12/16 17:59 Temazepam 15 mg 15 mg HSPRN PRN ORAL Insomnia 08/13/16 21:00 08/20/16 20:59 GI: Plan Problems: (1) Esophagitis (2) Gastritis (3) Hypoalbuminemia (4) Vomiting (5) Diabetic ketoacidosis, type I (6) Anemia (7) GERD (gastroesophageal reflux disease) Plan s/p EGD 04/22/15 >> esophagitis + gastritis symptomatic treatment at this time anemia work up ppi + Carafate zofran prn DM mgmt BP mgmt ADA diet fu labs Discussed with Dr. Patel. Thank you for referring this patient, we will follow. Venus Hart N.P. Aug 13, 2016 16:48
--- NOTE | 2016-08-13 17:03 | Diagnostic Imaging Report ---
Indications: Long-term central IV access required for multiple medications. Technique: The procedure indications, risks, and alternatives were explained to the patient who understands and gives consent to proceed. Procedure was performed at bedside. Strict aseptic technique was utilized, including hand washing, use of hat and mask, use of sterile gown and gloves, sterile ultrasound gel and probe cover, prepping of left arm skin with 2% chlorhexidine solution, and application of full body sterile barrier over this area.. Skin and subcutaneous soft tissues were infiltrated with 1% lidocaine and sodium bicarbonate. A small dermatotomy was made, through which the larger of two patent, adequate size left brachial veins was punctured percutaneously under direct sonographic guidance with a 21-gauge needle. Exchange was made over a 0.018 inch guidewire for a 5 Frisian peel-away sheath. A Bard Power-PICC 5 Frisian dual lumen central venous catheter was cut to 40 cm, then advanced through the sheath over the guidewire. Guidewire and sheath were removed. Both catheter ports were aspirated, then flushed with heparinized saline. Catheter was secured the skin with adhesive dressing. Patient tolerated procedure well without immediate complications. Followup chest radiograph performed. Findings: Comparison: Chest radiograph 08/12/16 Both ports aspirate and flush freely. To above PICC at SVC-right atrial junction. No other change. IMPRESSION: Bedside placement of peripherally inserted central venous catheter via left brachial vein, working well, in good position, may be used.
--- NOTE | 2016-08-13 17:34 | Cardiology Progress Note ---
Subjective Subjective [id number] htn urgency dm dka pulm htn mr tr need norvasc as well as lisnopril on dischaged encougaed to make suer she get her meds priro to leaving hospital next time Objective Last 24 Hour Vital Signs Date Time Temp Pulse Resp B/P Pulse Ox O2 Delivery O2 Flow Rate FiO2 08/13/16 17:00 89 20 114/52 100 Room Air 08/13/16 16:00 92 08/13/16 16:00 98.1 96 19 121/53 100 Room Air 08/13/16 15:00 93 18 121/50 100 Room Air 08/13/16 14:23 94 165/101 08/13/16 14:00 94 18 167/101 100 Room Air 08/13/16 13:00 98.2 101 20 183/75 100 Room Air 08/13/16 13:00 99 08/13/16 11:18 98.1 95 18 146/75 97 Room Air 08/13/16 09:51 129/65 08/13/16 09:51 90 129/65 08/13/16 09:49 90 129/65 08/13/16 08:08 101 08/13/16 07:55 98.2 94 16 105/47 96 Room Air 08/13/16 05:00 98.0 102 18 115/55 95 Room Air 08/13/16 04:00 109 08/13/16 00:11 97.5 116 19 149/83 96 Room Air 08/12/16 23:28 98.1 105 15 124/81 100 Room Air 102 08/12/16 22:22 98.1 102 15 124/81 100 Room Air 08/12/16 19:54 98.1 105 15 141/83 100 Room Air 08/12/16 18:01 98.1 100 15 123/59 100 Room Air Intake and Output 08/12/16 08/13/16 19:00 07:00 Intake Total 120 ml Balance 120 ml Intake Oral 120 ml # Voids 2 # Bowel Movements 1 Laboratory Tests Test 08/13/16 05:10 08/13/16 10:30 08/13/16 15:50 White Blood Count 4.9 K/UL (4.8-10.8) Red Blood Count 2.88 M/UL (4.20-5.40) L Hemoglobin 8.8 G/DL (12.0-16.0) L Hematocrit 29.7 % (37.0-47.0) L Mean Corpuscular Volume 103 FL (80-99) #H Mean Corpuscular Hemoglobin 30.6 PG (27.0-31.0) Mean Corpuscular Hemoglobin Concent 29.7 G/DL (32.0-36.0) L Red Cell Distribution Width 17.0 % (11.6-14.8) H Platelet Count 297 K/UL (150-450) Mean Platelet Volume 6.7 FL (6.5-10.1) Neutrophils (%) (Auto) 66.1 % (45.0-75.0) Lymphocytes (%) (Auto) 22.6 % (20.0-45.0) Monocytes (%) (Auto) 10.6 % (1.0-10.0) H Eosinophils (%) (Auto) 0.1 % (0.0-3.0) Basophils (%) (Auto) 0.6 % (0.0-2.0) Prothrombin Time 10.0 SEC (9.30-11.50) Prothromb Time International Ratio 1.0 (0.9-1.1) Activated Partial Thromboplast Time 26 SEC (23-33) Sodium Level 136 mEQ/L (135-145) 137 mEQ/L (135-145) 140 mEQ/L (135-145) Potassium Level 5.0 mEQ/L (3.4-4.9) H 4.9 mEQ/L (3.4-4.9) 3.6 mEQ/L (3.4-4.9) Chloride Level 84 mEQ/L (98-107) L 88 mEQ/L (98-107) L 95 mEQ/L (98-107) L Carbon Dioxide Level 10 mEQ/L (20-30) L 18 mEQ/L (20-30) L 27 mEQ/L (20-30) Anion Gap 42 (5-15) H 31 (5-15) H 18 (5-15) H Blood Urea Nitrogen 24 mg/dL (7-23) H 22 mg/dL (7-23) 21 mg/dL (7-23) Creatinine 1.6 mg/dL (0.5-0.9) #H 1.4 mg/dL (0.5-0.9) H 1.3 mg/dL (0.5-0.9) H Estimat Glomerular Filtration Rate 42.4 mL/min (>60) 49.6 mL/min (>60) 53.9 mL/min (>60) Glucose Level 728 mg/dL (74-106) #*H 435 mg/dL (74-106) #H 171 mg/dL (74-106) #H Calcium Level 8.7 mg/dL (8.6-10.2) 8.9 mg/dL (8.6-10.2) 8.6 mg/dL (8.6-10.2) Total Bilirubin 0.2 mg/dL (0.0-1.2) Aspartate Amino Transf (AST/SGOT) 49 U/L (5-40) H Alanine Aminotransferase (ALT/SGPT) 35 U/L (3-33) H Alkaline Phosphatase 114 U/L (35-104) H Troponin I < 0.30 ng/mL (<=0.30) C-Reactive Protein, Quantitative 3.4 mg/dL (< 0.5) H Total Protein 5.7 g/dL (6.6-8.7) L Albumin 3.1 g/dL (3.5-5.2) L Globulin 2.6 g/dL Albumin/Globulin Ratio 1.1 (1.0-2.7) Triglycerides Level 216 mg/dL (< 150) H Cholesterol Level 181 mg/dL (< 200) LDL Cholesterol 82 mg/dL (60-99) HDL Cholesterol 56 mg/dL (> 60) Cholesterol/HDL Ratio 3.2 (3.3-4.4) L Thyroid Stimulating Hormone (TSH) 1.970 uIU/mL (0.300-4.500) Hemoglobin A1c 11.1 % (< 6.0) H GIANNI JORGE Aug 13, 2016 17:34
[2016-08-13] MEDS: Lisinopril 20mg tab ORAL SCH (17:54)
--- NOTE | 2016-08-13 19:28 | Consultation ---
DATE OF CONSULTATION: 08/13/2016 NEUROLOGICAL CONSULTATION REQUESTING PHYSICIAN: Aries Hardin M.D. HISTORY OF PRESENT ILLNESS: The patient is a 45-year-old female, seen in neurological consultation to evaluate a new onset of intractable headache. According to the patient, last week she was discharged from this facility for treatment of DKA, she was discharged home she was in stable condition, but the following day, the patient started developed increasing severe bitemporal throbbing headache, checked her blood pressure, was around 208 systolic, with this she decided to sent into emergency room. On admission, she was reporting that she had turned her insulin pump off and put it back. In the emergency department, her fingerstick was 70. Vital signs was on admission, blood pressure 199/91 and repeat study was 225/107, temperature 98 degrees and pulse 102. EKG normal sinus rhythm. No PVCs. The patient was given p.o. and p.o. Norvasc with blood pressure remaining essentially unchanged. Subsequently, blood pressure systolic started to come down after IV hydralazine, blood pressure was 170/79. At that point, the patient had decline in her headache. Her diagnostic studies on admission included CBC with hemoglobin 10.1 and hematocrit 31.2 and repeat study this morning with hemoglobin down to 8.8 and hematocrit 29.7. Coagulation panel was normal. Chemistry panel on admission with an elevated AST 64, ALT 35, and alkaline phosphatase is 120. Albumin 3.2. Normal troponin. Apparently, the patient indicated she got sandwich, but her blood sugar went up to 449. She claims that insulin was not given and subsequently blood sugar become 728. Creatinine 1.6. Hemoglobin A1c 11.1. CRP 3.4. Elevated triglycerides 216. Normal TSH. Imaging studies included CAT scan of the brain without contrast, this revealed a bilateral cerebral periventricular white matter low attenuation, which is nonspecific likely chronic microvascular ischemic in nature, mild atrophy prominent for the age. Her chest x-ray, stable cardiomyopathy with no evidence of acute disease, remained unchanged from previous studies. Since admission to present, her condition gradually improved with headaches subsiding. PAST MEDICAL HISTORY: The patient has a history of diabetes, insulin-dependent with diabetic neuropathy, responding to treatment with Lyrica, history of hypertension and hyperlipidemia. MEDICATIONS: Treatment prior to admission included amlodipine, Cymbalta, insulin, lisinopril, meloxicam, pantoprazole, Lyrica 75 mg t.i.d., and Carafate. ALLERGIES: None reported. 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 No alcohol. No drug abuse. Nonsmoker. FAMILY HISTORY: Noncontributory. REVIEW OF SYSTEMS: Generalized weakness. Mild bifrontal throbbing headache. Numbness and tingling intermittently in both feet. No chest pain. No palpitations. No respiratory problems. No abdominal pain discomfort. No urine or bowel incontinence. PHYSICAL EXAMINATION: GENERAL: The patient is a well-developed and well-nourished, pleasant lady, not in acute distress, lying comfortably in bed. Her family at bedside. VITAL SIGNS: Blood pressure 149/83, heart rate of 116, afebrile and pulse oximetry 96%. HEENT: Head, normocephalic. No evidence of trauma. Eyes, ears, and throat are clear. NECK: Supple. No meningeal signs. MUSCULOSKELETAL: Unremarkable. No deformities. Peripheral pulses 1+. MENTAL STATUS: The patient is alert and oriented x3. Speech is fluent. Language is intact. No aphasia. No apraxia. Cognitive function normal. CRANIAL NERVE II: Pupils both responding to light and accommodation. Extraocular movement intact. No nystagmus. CRANIAL NERVE V: Normal corneal responses. CRANIAL NERVE VII: No facial asymmetry. CRANIAL NERVE VIII: Normal hearing. CRANIAL NERVE IX THROUGH XII: Within normal limits. MOTOR EXAMINATION: Normal muscle tone. Strength 5/5 in all extremities. No involuntary movement. Deep reflexes 1+ symmetric with downgoing toes on both sides. SENSORY EXAMINATION: Decreased response to pin stimulation both feet. Gait not tested, but reported stable. IMPRESSION: 1. Uncontrollable hypertension, poor control with hypertensive encephalopathy. 2. Insulin-dependent diabetes mellitus with diabetic ketoacidosis. 3. Hyperlipidemia. 4. History of depression. 5. History of diabetic polyneuropathy and diabetic gastroparesis. 6. Chronic anemia and abnormal liver enzymes. DISCUSSION: The patient presents with intermittent headaches usually resulting from a significant elevation of systolic blood pressure. The patient at this time presented with hypertensive urgency accompanied by severe headache, which gradually subsided as blood pressure became controlled. CAT scan of the brain revealed no acute intracranial abnormalities, presence of small vessel disease expected with a long-term hypertension and diabetes, indicative of small vessel angiography upset. In presence of multiple stroke risk factors, consider adding baby aspirin 81 mg q.i.d., if okay with GI. Diabetic polyneuropathy at this time well controlled and required no change in current management. Thank you for allowing me to see this interesting patient in neurological consultation. Bryson Hector M.D. DR: EDITH JOB#: [id number] CC:
[2016-08-13] MEDS ORDERED: D5NS 1,000 ML IV SCH (20:30)
--- NOTE | 2016-08-13 23:46 | Pulmonolgy Critical Care Note ---
Critical Care - Asmt/Plan Problems: (1) Diabetic ketoacidosis, type I (2) Hypertensive urgency (3) Headache (4) GERD (gastroesophageal reflux disease) Respiratory: monitor respiratory rate, adjust FIO2, CXR Cardiac: continue pressors Renal: F/U I&O, keep IV fluid, check electrolytes Infectious Disease: check cultures, continue antibiotics Gastrointestinal: continue feedings/current rate Endocrine: monitor blood sugar, continue sliding scale insulin Hematologic: monitor H/H, transfuse if hgb<8.5 Neurologic: PRN Ativan, PRN Morphine, keep patient comfortable Affect: PRN ativan Prophylaxis: Protonix, Heparin Time Spent (Minutes): 40 Notes Reviewed: 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, 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, renal Discussed with: nurses, consultants, correctional case 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 asset manager - Objective Last 24 Hour Vital Signs Date Time Temp Pulse Resp B/P Pulse Ox O2 Delivery O2 Flow Rate FiO2 08/13/16 23:00 87 19 102/47 99 Room Air 08/13/16 22:00 91 18 126/54 100 Room Air 08/13/16 21:05 99 17 159/80 100 Room Air 08/13/16 20:41 94 112/54 08/13/16 20:04 98.2 91 16 112/54 100 Room Air 08/13/16 20:00 92 08/13/16 19:05 97 18 Room Air 08/13/16 19:00 97 15 140/69 100 Room Air 08/13/16 18:54 98.1 08/13/16 18:04 93 19 129/91 100 Room Air 08/13/16 17:54 128/84 08/13/16 17:00 89 20 114/52 100 Room Air 08/13/16 16:00 92 08/13/16 16:00 98.1 96 19 121/53 100 Room Air 08/13/16 15:00 93 18 121/50 100 Room Air 08/13/16 14:23 94 165/101 08/13/16 14:00 94 18 167/101 100 Room Air 08/13/16 13:00 98.2 101 20 183/75 100 Room Air 08/13/16 13:00 99 08/13/16 11:18 98.1 95 18 146/75 97 Room Air 08/13/16 09:51 129/65 08/13/16 09:51 90 129/65 08/13/16 09:49 90 129/65 08/13/16 08:08 101 08/13/16 07:55 98.2 94 16 105/47 96 Room Air 08/13/16 05:00 98.0 102 18 115/55 95 Room Air 08/13/16 04:00 109 08/13/16 00:11 97.5 116 19 149/83 96 Room Air Status: awake Condition: critical HEENT: atraumatic Neck: full ROM Lungs: clear Heart: HR/BP stable Abdomen: soft, non-tender Extremities: no C/C/E Accucheck: 98 Critical Care - Subjective ROS Limited/Unobtainable: No ICU Day: 1 Interval Events: 45year old female with hx of DM, HTN, presented with 2 days severe headache to front/top of head, pressure-like, 8/10, non-radiating, some blurry vision. Her BP was elevated as well, so she called the paramedics. She was admitted to telemetry initially. Then her BS started to rise, therefore she was transferred to ICU to start insulin drip and control the bp with IV meds/ EKG Rhythm: Sinus Rhythm Fluids: NS 50 cc/hour I&O: Intake and Output 08/12/16 08/13/16 19:00 07:00 Intake Total 120 ml Balance 120 ml Intake Oral 120 ml # Voids 2 # Bowel Movements 1 CXR: VANESSA THOMAS Aug 13, 2016 23:46
[2016-08-14] VITALS (14 sets, daily range): BP systolic 103–174; BP diastolic 47–96
--- NOTE | 2016-08-14 00:28 | Consultation ---
DATE OF CONSULTATION: CARDIAC CONSULTATION CONSULTING PHYSICIAN: Jose Etienne M.D. REFERRING PHYSICIAN: REASON FOR EVALUATION: Hypertensive urgency. HISTORY OF PRESENT ILLNESS: This is a middle-aged female, who has a history of diabetes mellitus and several other medical problems. The patient has been admitted to the hospital because of diabetes and its complications including diabetic ketoacidosis. She was recently discharged from the hospital after a few days of hospitalization, went home, did have her blood pressure medications and eventually she started having some headache and blood pressure was significantly elevated. She came to the emergency room with blood pressure in the 220s or so and has been admitted to the hospital. Initially in treatment floor but because of her need for insulin drip she was transferred to intensive care unit. She really has not had any chest pain. There is two-pillow usage for comfort. No PND. No orthopnea. No palpitations. No dizziness or lightheadedness. PAST MEDICAL HISTORY: Extensive and includes diabetes with complications including diabetic ketoacidosis, esophageal ulcers, anemia, dehydration, hyperosmolar coma, gastroesophageal reflux disease, hypertension, diabetes type 1. No history of heart attack, cancer, stroke, hepatitis, or tuberculosis. No asthma, emphysema, no ulcers, otherwise no kidney or liver problems, thyroid problems. ALLERGIES: She is not allergic to any medications. SOCIAL HISTORY: She does not smoke. Does occasionally drink alcohol. There is no drug use. REVIEW OF SYSTEMS: Upper Gastrointestinal: She had diarrhea, but her blood sugar is uncontrolled. Genitourinary: Negative. Pulmonary: Negative. Constitutional: Negative. Neurologic: Negative. PHYSICAL EXAMINATION: GENERAL: Shows a middle-aged female, in no apparent distress. NECK: Supple. No jugular venous distention. No abdominojugular reflux noted. LUNGS: Clear to auscultation percussion. CARDIAC: S1 is normal. S2 is normal. Regular rate and rhythm. There is a holosystolic regurgitant murmur. No RV lifts, heaves, thrills, or gallops noted. ABDOMEN: Soft and nontender. Positive bowel sounds. EXTREMITIES: There is edema of the lower extremities, approximately 1+ bilaterally. NEUROLOGIC: Awake, alert, and responsive. LABORATORY AND DIAGNOSTIC DATA: White count of 4.9, hemoglobin 8.8, and platelet count of 297,000. PH is 7.26, pCO2 45, pO2 54, saturation of 86%, not clear if it was arterial or not. Sodium 140, potassium 3.6, chloride 95, bicarbonate 27, BUN 21, creatinine 1.3. Glucose of 171, down from 728 yesterday. Hemoglobin A1c of 11.1. Calcium is 8.6. AST and ALT of 49 and 135, and alkaline phosphatase 111, albumin of 3.1 is documented and coagulation INR 1.0 and PTT 26. Acetylcysteine was positive previously on to 18. Otherwise noted she had a x-ray of her chest that was performed yesterday that shows stable cardiomegaly and she has not had an echocardiogram recently. Her last echocardiogram was performed in 2014, and at that time, the report of ejection fraction of 55% with [id number] left ventricular hypertrophy being documented. The patient's electrocardiogram during this hospitalization has shown sinus rhythm, normal QRS axis, no ST or T wave abnormalities. Preliminary echocardiogram performed shows ejection fraction 50% to 55%, mild left ventricular hypertrophy, [id number]-[id number] mitral regurgitation, [id number] tricuspid regurgitation, pulmonary pressures in the 50s. ASSESSMENT: 1. Hypertensive urgency, poorly controlled, intermittently secondary to noncompliance with medication. 2. Diabetes mellitus with poor controlled diabetic ketoacidosis. 3. Renal insufficiency. 4. Anemia. 5. Diabetes with diabetic ketoacidosis, recurrent. 6. Mitral and tricuspid regurgitation. 7. Pulmonary hypertension. 8. Renal insufficiency. PLAN: Dr. Paredes, this patient was seen for cardiac consultation and she previously was controlled apparently on a combination of her usual TERRA inhibitors as well as another combination of medication and I suspect that she should be back on a combination of TERRA inhibitors and calcium channel blockers and Norvasc to help maintain the blood pressure adequately if possible. She is getting labetalol intermittently that the blood pressure has been controlled with. She is getting treatment for diabetic ketoacidosis at the present time. An echocardiogram has shown pulmonary hypertension. She should have a venous duplex study of the lower extremities, but I suspect the pulmonary hypertension may be related to diastolic dysfunction secondary to poorly controlled hypertension. Duration of this consultation is 45 minutes. Jose Etienne M.D. : DILLON/reese JOB#: [id number] CC:
[2016-08-14] MEDS: Insulin Rate Change 1 Each MISC PRN (03:04)
[2016-08-14 06:04] LABS: MEAN CORPUSCULAR HEMOGLOBIN 30.4 PG (27.0-31.0); MEAN CORPUSCULAR HGB CONC 31.1 G/DL (32.0-36.0); MEAN CORPUSCULAR VOLUME 98 FL (80-99); MEAN PLATELET VOLUME 6.5 FL (6.5-10.1); PLATELET COUNT 308 K/UL (150-450); RED BLOOD COUNT 2.37 M/UL (4.20-5.40)
[2016-08-14 06:26] LABS: INR 1.1 (0.9-1.1); PROTHROMBIN TIME 10.7 SEC (9.30-11.50)
[2016-08-14 06:39] LABS: TROPONIN I < 0.30 ng/mL (<=0.30)
[2016-08-14 06:53] LABS: FERRITIN 89 ng/mL (13-150)
[2016-08-14 06:54] LABS: ANION GAP 10 (5-15); CALCIUM 7.8 mg/dL (8.6-10.2); CARBON DIOXIDE 32 mEQ/L (20-30); CHLORIDE 98 mEQ/L (98-107); GLOMERULAR FILTRATION RATE > 60 mL/min (>60); HEMOLYSIS 2; POTASSIUM 3.6 mEQ/L (3.4-4.9); SODIUM 140 mEQ/L (135-145)
[2016-08-14 07:25] LABS: BASOPHILS % (AUTO) 1.1 % (0.0-2.0); EOSINOPHILS % (AUTO) 1.7 % (0.0-3.0); LYMPHOCYTES % (AUTO) 49.3 % (20.0-45.0); MEAN CORPUSCULAR HEMOGLOBIN 30.3 PG (27.0-31.0); MEAN CORPUSCULAR HGB CONC 31.7 G/DL (32.0-36.0); MEAN CORPUSCULAR VOLUME 96 FL (80-99); MEAN PLATELET VOLUME 6.3 FL (6.5-10.1); MONOCYTES % (AUTO) 9.8 % (1.0-10.0); NEUTROPHILS % (AUTO) 38.2 % (45.0-75.0); PLATELET COUNT 354 K/UL (150-450); RED BLOOD COUNT 2.82 M/UL (4.20-5.40); RED CELL DISTRIBUTION WIDTH 15.9 % (11.6-14.8); WHITE BLOOD COUNT 7.4 K/UL (4.8-10.8)
[2016-08-14 08:00] LABS: RETICULOCYTE COUNT 1.2 % (0.0-2.0)
[2016-08-14] MEDS: Sucralfate 1gm tab ORAL SCH ×4 (08:40→21:13)
[2016-08-14] MEDS: Lyrica 75mg cap ORAL SCH ×3 (08:41→18:31)
[2016-08-14] MEDS: Lisinopril 20mg tab ORAL SCH ×2 (08:42→18:30)
[2016-08-14] MEDS: Heparin 5000 units/ml inj SUBQ SCH ×2 (08:44→21:14)
[2016-08-14] MEDS: Morphine Sulfate 2mg/ml Inj IVP PRN ×3 (08:46→22:51)
[2016-08-14] MEDS ORDERED: Levemir Flexpen SUBQ SCH (09:00)
--- NOTE | 2016-08-14 09:31 | Pulmonolgy Critical Care Note ---
Critical Care - Asmt/Plan Problems: (1) Diabetic ketoacidosis, type I (2) Hypertensive urgency (3) Headache (4) GERD (gastroesophageal reflux disease) Respiratory: monitor respiratory rate Cardiac: continue to monitor HR/BP Renal: F/U I&O, keep IV fluid Gastrointestinal: continue feedings/current rate Endocrine: monitor blood sugar, d/c insulin drip, continue sliding scale insulin, oral diabetic meds Hematologic: monitor H/H Neurologic: PRN Ativan, PRN Morphine Affect: PRN ativan Disposition: transfer to Time Spent (Minutes): 40 Discussed with: nurses, consultants, casey saw operatormanager of change - Objective Last 24 Hour Vital Signs Date Time Temp Pulse Resp B/P Pulse Ox O2 Delivery O2 Flow Rate FiO2 08/14/16 09:00 93 12 152/76 95 Room Air 08/14/16 08:42 174/76 08/14/16 08:41 91 174/76 08/14/16 08:00 97.7 90 15 174/76 98 Room Air 08/14/16 08:00 91 08/14/16 07:30 95 18 Room Air 08/14/16 07:00 73 21 132/96 99 Room Air 08/14/16 06:00 85 20 134/96 99 Room Air 08/14/16 05:00 81 20 134/68 99 Room Air 08/14/16 04:00 87 08/14/16 04:00 97.6 88 19 152/77 99 Room Air 08/14/16 03:00 83 20 124/62 99 Room Air 08/14/16 02:00 82 20 125/63 99 Room Air 08/14/16 01:00 84 19 120/58 99 Room Air 08/14/16 00:00 98.1 85 20 103/47 98 Room Air 08/14/16 00:00 85 08/13/16 23:00 87 19 102/47 99 Room Air 08/13/16 22:00 91 18 126/54 100 Room Air 08/13/16 21:05 99 17 159/80 100 Room Air 08/13/16 20:41 94 112/54 08/13/16 20:04 98.2 91 16 112/54 100 Room Air 08/13/16 20:00 92 08/13/16 19:05 97 18 Room Air 08/13/16 19:00 97 15 140/69 100 Room Air 08/13/16 18:54 98.1 08/13/16 18:04 93 19 129/91 100 Room Air 08/13/16 17:54 128/84 08/13/16 17:00 89 20 114/52 100 Room Air 08/13/16 16:00 92 08/13/16 16:00 98.1 96 19 121/53 100 Room Air 08/13/16 15:00 93 18 121/50 100 Room Air 08/13/16 14:23 94 165/101 08/13/16 14:00 94 18 167/101 100 Room Air 08/13/16 13:00 98.2 101 20 183/75 100 Room Air 08/13/16 13:00 99 08/13/16 11:18 98.1 95 18 146/75 97 Room Air 08/13/16 09:51 129/65 08/13/16 09:51 90 129/65 08/13/16 09:49 90 129/65 Status: awake Condition: critical HEENT: atraumatic Neck: full ROM Lungs: clear Heart: HR/BP stable, HR/BP unstable Abdomen: soft, non-tender Extremities: no C/C/E, edema Micro: Microbiology Date/Time Source Procedure Growth Status 08/12/16 15:58 Rectum VRE Culture - Final NO VANCOMYCIN RESISTANT ENTEROCOCCUS ... Complete Accucheck: 192 Critical Care - Subjective ROS Limited/Unobtainable: No ICU Day: doing better, Bs better, anion gap closed Intubation Day: 2 Condition: critical EKG Rhythm: Sinus Rhythm Fluids: NS 50 cc.hour Drips: off insulin drip I&O: Intake and Output 08/13/16 08/14/16 18:59 06:59 Intake Total 824.14 ml 929.0 ml Balance 824.14 ml 929.0 ml Intake Oral 510 ml 100 ml IV Total 314.14 ml 829.0 ml # Voids 2 1 CXR: no changes, negative Labs: Laboratory Tests Test 08/13/16 10:30 08/13/16 15:50 08/14/16 05:00 08/14/16 06:55 Sodium Level 137 mEQ/L (135-145) 140 mEQ/L (135-145) 140 mEQ/L (135-145) Potassium Level 4.9 mEQ/L (3.4-4.9) 3.6 mEQ/L (3.4-4.9) 3.6 mEQ/L (3.4-4.9) Chloride Level 88 mEQ/L (98-107) L 95 mEQ/L (98-107) L 98 mEQ/L (98-107) Carbon Dioxide Level 18 mEQ/L (20-30) L 27 mEQ/L (20-30) 32 mEQ/L (20-30) H Anion Gap 31 (5-15) H 18 (5-15) H 10 (5-15) Blood Urea Nitrogen 22 mg/dL (7-23) 21 mg/dL (7-23) 17 mg/dL (7-23) Creatinine 1.4 mg/dL (0.5-0.9) H 1.3 mg/dL (0.5-0.9) H 1.0 mg/dL (0.5-0.9) H Estimat Glomerular Filtration Rate 49.6 mL/min (>60) 53.9 mL/min (>60) > 60 mL/min (>60) Glucose Level 435 mg/dL (74-106) #H 171 mg/dL (74-106) #H 268 mg/dL (74-106) H Hemoglobin A1c 11.1 % (< 6.0) H Calcium Level 8.9 mg/dL (8.6-10.2) 8.6 mg/dL (8.6-10.2) 7.8 mg/dL (8.6-10.2) L White Blood Count 6.0 K/UL (4.8-10.8) 7.4 K/UL (4.8-10.8) Red Blood Count 2.37 M/UL (4.20-5.40) L 2.82 M/UL (4.20-5.40) L Hemoglobin 7.2 G/DL (12.0-16.0) L 8.5 G/DL (12.0-16.0) L Hematocrit 23.1 % (37.0-47.0) L 27.0 % (37.0-47.0) L Mean Corpuscular Volume 98 FL (80-99) 96 FL (80-99) Mean Corpuscular Hemoglobin 30.4 PG (27.0-31.0) 30.3 PG (27.0-31.0) Mean Corpuscular Hemoglobin Concent 31.1 G/DL (32.0-36.0) L 31.7 G/DL (32.0-36.0) L Red Cell Distribution Width 17.0 % (11.6-14.8) H 15.9 % (11.6-14.8) H Platelet Count 308 K/UL (150-450) 354 K/UL (150-450) Mean Platelet Volume 6.5 FL (6.5-10.1) 6.3 FL (6.5-10.1) L Neutrophils (%) (Auto) % (45.0-75.0) 38.2 % (45.0-75.0) L Lymphocytes (%) (Auto) % (20.0-45.0) 49.3 % (20.0-45.0) H Monocytes (%) (Auto) % (1.0-10.0) 9.8 % (1.0-10.0) Eosinophils (%) (Auto) % (0.0-3.0) 1.7 % (0.0-3.0) Basophils (%) (Auto) % (0.0-2.0) 1.1 % (0.0-2.0) Reticulocyte Count 1.2 % (0.0-2.0) Prothrombin Time 10.7 SEC (9.30-11.50) Prothromb Time International Ratio 1.1 (0.9-1.1) Activated Partial Thromboplast Time 25 SEC (23-33) Iron Level 89 ug/dL (37-145) Total Iron Binding Capacity 235 ug/dL (250-400) L Percent Iron Saturation 38 % (15-50) Unsaturated Iron Binding 146 ug/dL (112-346) Ferritin 89 ng/mL (13-150) Troponin I < 0.30 ng/mL (<=0.30) Carcinoembryonic Antigen 2.4 ng/mL Vitamin B12 Level 506 pg/mL (211-946) Folate Pending Thyroid Stimulating Hormone (TSH) 0.950 uIU/mL (0.300-4.500) Free Thyroxine 1.14 ng/dL (0.86-1.85) VANESSA SAGASTUME Aug 14, 2016 09:31
[2016-08-14] MEDS ORDERED: Labetalol 5mg/ml 20ml vial IV PRN (11:30)
[2016-08-14] MEDS ORDERED: Diltiazem 25mg/5ml IV PRN (11:30)
[2016-08-14] MEDS ORDERED: NovoLOG Insulin Flexpen SUBQ SCH ×2 (11:30→11:50)
--- NOTE | 2016-08-14 11:38 | Consultation ---
DATE OF CONSULTATION: 08/14/2016 ENDOCRINOLOGY CONSULTATION: REFERRING PHYSICIAN: Anastacio Wright M.D. REASON FOR CONSULTATION: Diabetic ketoacidosis. HISTORY OF PRESENT ILLNESS: The patient is a 45-year-old female with type 1 diabetes due to multiple admissions to [facility] with diabetic ketoacidosis and I follow her as an outpatient for diabetes management. She was just admitted to the hospital with DKA, which resolved and then she came back with elevated blood pressure, hypertensive urgency, and recurrent DKA. PAST MEDICAL HISTORY: 1. Type 1 diabetes. 2. Gastroparesis. 3. Hypertension. MEDICATIONS: Reviewed and reconciled. SOCIAL HISTORY: No smoking. No alcohol or drug use. FAMILY HISTORY: Noncontributory. REVIEW OF SYSTEMS: As per HPI. PHYSICAL EXAMINATION: VITAL SIGNS: Blood pressure 132/96, pulse 70, respiratory rate 21, and temperature 99 degrees. HEENT: Pupils are round and reactive to light. Sclerae are anicteric. NECK: No JVD. No thyromegaly. LUNGS: Clear . HEART: Regular rate and rhythm. ABDOMEN: Positive bowel sounds. EXTREMITIES: No clubbing, cyanosis, or edema. LABORATORY AND DIAGNOSTIC DATA: WBC 16, hemoglobin 7, hematocrit 22, and platelet 308,000. Sodium 140, potassium 3.6, chloride 98, bicarbonate 33, BUN 17, creatinine 1.2, and glucose 268. Calcium 7.8. DIAGNOSES: 1. Recurrent diabetic ketoacidosis. 2. Hypertensive urgency. 3. PERLA 4. Anemia. PLAN: 1. Discontinue insulin drip since the patient's gap is closed. 2. Levemir 14 units daily. 3. NovoLog 4 units before each meal. 4. IV fluid to be changed to NS 5. Sliding scale with NovoLog insulin before meal and at bedtime. 6. I will continue to follow. Thank you, Dr. Wright, for the courtesy of this consultation. Judd Hayes M.D. DR: RIGO/castro JOB#: [id number] CC: KRISTY
[2016-08-14] MEDS: NovoLOG Insulin Flexpen SUBQ SCH ×5 (11:57→21:00)
[2016-08-14] MEDS ORDERED: Nitroglycerin Subl 0.4mg tab (Bottle Of 25) SL PRN (12:30)
[2016-08-14] MEDS ORDERED: Enalaprilat 2.5mg/2ml Inj IV PRN (12:30)
[2016-08-14] MEDS ORDERED: DuoNeb 0.5-3(2.5)mg/3ml neb HHN PRN (12:30)
--- NOTE | 2016-08-14 12:37 | GI Progress Note ---
Assessment/Plan Problems: (1) GERD (gastroesophageal reflux disease) ICD Codes: K21.9 - Gastro-esophageal reflux disease without esophagitis SNOMED: 144436247 (2) Gastritis ICD Codes: K29.70 - Gastritis, unspecified, without bleeding SNOMED: 1615946 (3) Hypoalbuminemia ICD Codes: E88.09 - Other disorders of plasma-protein metabolism, not elsewhere classified SNOMED: 780105393 (4) Esophagitis ICD Codes: K20.9 - Esophagitis, unspecified SNOMED: 42954011 (5) Anemia ICD Codes: D64.9 - Anemia, unspecified SNOMED: 844391479 Status: stable Status Narrative Discussed with Dr. Patel. 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, consider H2 zofran prn DM mgmt BP mgmt ADA diet fu labs Subjective Gastrointestinal/Abdominal: Reports: no symptoms Objective Last 24 Hour Vital Signs Date Time Temp Pulse Resp B/P Pulse Ox O2 Delivery O2 Flow Rate FiO2 08/14/16 10:05 90 12 124/56 93 Room Air 08/14/16 09:00 93 12 152/76 95 Room Air 08/14/16 08:42 174/76 08/14/16 08:41 91 174/76 08/14/16 08:00 97.7 90 15 174/76 98 Room Air 08/14/16 08:00 91 08/14/16 07:30 95 18 Room Air 08/14/16 07:00 73 21 132/96 99 Room Air 08/14/16 06:00 85 20 134/96 99 Room Air 08/14/16 05:00 81 20 134/68 99 Room Air 08/14/16 04:00 87 08/14/16 04:00 97.6 88 19 152/77 99 Room Air 08/14/16 03:00 83 20 124/62 99 Room Air 08/14/16 02:00 82 20 125/63 99 Room Air 08/14/16 01:00 84 19 120/58 99 Room Air 08/14/16 00:00 98.1 85 20 103/47 98 Room Air 08/14/16 00:00 85 08/13/16 23:00 87 19 102/47 99 Room Air 08/13/16 22:00 91 18 126/54 100 Room Air 08/13/16 21:05 99 17 159/80 100 Room Air 08/13/16 20:41 94 112/54 08/13/16 20:04 98.2 91 16 112/54 100 Room Air 08/13/16 20:00 92 08/13/16 19:05 97 18 Room Air 08/13/16 19:00 97 15 140/69 100 Room Air 08/13/16 18:54 98.1 08/13/16 18:04 93 19 129/91 100 Room Air 08/13/16 17:54 128/84 08/13/16 17:00 89 20 114/52 100 Room Air 08/13/16 16:00 92 08/13/16 16:00 98.1 96 19 121/53 100 Room Air 08/13/16 15:00 93 18 121/50 100 Room Air 08/13/16 14:23 94 165/101 08/13/16 14:00 94 18 167/101 100 Room Air 08/13/16 13:00 98.2 101 20 183/75 100 Room Air 08/13/16 13:00 99 Intake and Output 08/13/16 08/14/16 19:00 07:00 Intake Total 824.14 ml 1104.2 ml Balance 824.14 ml 1104.2 ml Intake Oral 510 ml 200 ml IV Total 314.14 ml 904.2 ml # Voids 2 2 Laboratory Tests Test 08/13/16 15:50 08/14/16 05:00 08/14/16 06:55 Sodium Level 140 mEQ/L (135-145) 140 mEQ/L (135-145) Potassium Level 3.6 mEQ/L (3.4-4.9) 3.6 mEQ/L (3.4-4.9) Chloride Level 95 mEQ/L (98-107) L 98 mEQ/L (98-107) Carbon Dioxide Level 27 mEQ/L (20-30) 32 mEQ/L (20-30) H Anion Gap 18 (5-15) H 10 (5-15) Blood Urea Nitrogen 21 mg/dL (7-23) 17 mg/dL (7-23) Creatinine 1.3 mg/dL (0.5-0.9) H 1.0 mg/dL (0.5-0.9) H Estimat Glomerular Filtration Rate 53.9 mL/min (>60) > 60 mL/min (>60) Glucose Level 171 mg/dL (74-106) #H 268 mg/dL (74-106) H Calcium Level 8.6 mg/dL (8.6-10.2) 7.8 mg/dL (8.6-10.2) L White Blood Count 6.0 K/UL (4.8-10.8) 7.4 K/UL (4.8-10.8) Red Blood Count 2.37 M/UL (4.20-5.40) L 2.82 M/UL (4.20-5.40) L Hemoglobin 7.2 G/DL (12.0-16.0) L 8.5 G/DL (12.0-16.0) L Hematocrit 23.1 % (37.0-47.0) L 27.0 % (37.0-47.0) L Mean Corpuscular Volume 98 FL (80-99) 96 FL (80-99) Mean Corpuscular Hemoglobin 30.4 PG (27.0-31.0) 30.3 PG (27.0-31.0) Mean Corpuscular Hemoglobin Concent 31.1 G/DL (32.0-36.0) L 31.7 G/DL (32.0-36.0) L Red Cell Distribution Width 17.0 % (11.6-14.8) H 15.9 % (11.6-14.8) H Platelet Count 308 K/UL (150-450) 354 K/UL (150-450) Mean Platelet Volume 6.5 FL (6.5-10.1) 6.3 FL (6.5-10.1) L Neutrophils (%) (Auto) % (45.0-75.0) 38.2 % (45.0-75.0) L Lymphocytes (%) (Auto) % (20.0-45.0) 49.3 % (20.0-45.0) H Monocytes (%) (Auto) % (1.0-10.0) 9.8 % (1.0-10.0) Eosinophils (%) (Auto) % (0.0-3.0) 1.7 % (0.0-3.0) Basophils (%) (Auto) % (0.0-2.0) 1.1 % (0.0-2.0) Reticulocyte Count 1.2 % (0.0-2.0) Prothrombin Time 10.7 SEC (9.30-11.50) Prothromb Time International Ratio 1.1 (0.9-1.1) Activated Partial Thromboplast Time 25 SEC (23-33) Iron Level 89 ug/dL (37-145) Total Iron Binding Capacity 235 ug/dL (250-400) L Percent Iron Saturation 38 % (15-50) Unsaturated Iron Binding 146 ug/dL (112-346) Ferritin 89 ng/mL (13-150) Troponin I < 0.30 ng/mL (<=0.30) Carcinoembryonic Antigen 2.4 ng/mL Vitamin B12 Level 506 pg/mL (211-946) Folate Pending Thyroid Stimulating Hormone (TSH) 0.950 uIU/mL (0.300-4.500) Free Thyroxine 1.14 ng/dL (0.86-1.85) Height (Feet): 5 Height (Inches): 4.00 Weight (Pounds): 120 General Appearance: no apparent distress, alert Cardiovascular: normal rate Respiratory/Chest: normal breath sounds, no respiratory distress Abdominal Exam: normal bowel sounds, non tender, soft Venus Hart N.P. Aug 14, 2016 12:37
[2016-08-14] MEDS ORDERED: Insulin Rate Change 1 Each MISC PRN (13:30)
[2016-08-14] MEDS ORDERED: Miralax 17gm pkt ORAL PRN (14:00)
--- NOTE | 2016-08-14 18:55 | Cardiology Report ---
APPROVED REPORT EKG Measurement Heart [id number] Normal sinus rhythm Nonspecific ST abnormality Abnormal ECG
--- NOTE | 2016-08-14 19:27 | Internal Med Progress Note ---
Subjective Date of Service: Aug 14, 2016 Physician Name Christos Jacobsen Attending Physician Aries Hardin MD Current Medications Medications (Trade) Dose Ordered Sig/Lizbeth Route PRN Reason Start Time Stop Time Status Last Admin Dose Admin Acetaminophen (Tylenol) 650 mg Q4H PRN ORAL FEVER>100.5 08/14/16 12:30 09/13/16 12:29 Albuterol/ Ipratropium (DuoNeb 0.5-3(2.5)mg/3ml) 3 ml Q4H PRN HHN Shortness of Breath 08/14/16 12:30 08/19/16 12:29 Amlodipine Besylate (Norvasc) 5 mg Q12HR ORAL 08/15/16 21:00 09/14/16 20:59 Dextrose (Dextrose 50%) STAT PRN IV Hypoglycemia 08/14/16 12:30 09/13/16 12:29 Duloxetine HCl (Cymbalta) 20 mg DAILY ORAL 08/15/16 09:00 09/14/16 08:59 Enalaprilat (Vasotec) 2.5 mg Q6H PRN IV sbp more than 160 08/14/16 12:30 09/13/16 12:29 Heparin Sodium (Porcine) (Heparin 5000 units/ml) 5,000 units EVERY 12 HOURS SUBQ 08/14/16 21:00 09/13/16 20:59 Insulin Aspart (NovoLOG) BEFORE MEALS AND HS SUBQ 08/14/16 11:30 09/13/16 11:29 08/14/16 17:17 Insulin Aspart (NovoLOG) 5 units NOVOTIAC SUBQ 08/14/16 11:50 09/13/16 11:49 08/14/16 17:16 Insulin Detemir (Levemir) 15 units DAILY SUBQ 08/15/16 09:00 09/14/16 08:59 Lisinopril (Prinivil) 20 mg BID ORAL 08/14/16 18:00 09/13/16 17:59 08/14/16 18:30 Morphine Sulfate (Morphine Sulfate) 2 mg Q6H PRN IVP Severe Pain (Pain Scale 7-10) 08/14/16 12:30 08/21/16 12:29 08/14/16 16:35 Nitroglycerin (Ntg) 0.4 mg Q5MIN X 3 DOSES PRN SL Prn Chest Pain 08/14/16 12:30 09/13/16 12:29 Ondansetron HCl (Zofran) 4 mg Q6H PRN IVP Nausea & Vomiting 08/14/16 13:30 09/13/16 13:29 Pantoprazole (Protonix) 40 mg ACBREAKFAST ORAL 08/15/16 06:30 09/14/16 06:29 Polyethylene Glycol (Miralax) 17 gm DAILYPRN PRN ORAL Constipation 08/14/16 14:00 09/13/16 13:59 Pregabalin (Lyrica) 75 mg THREE TIMES A DAY ORAL 08/14/16 13:00 09/13/16 12:59 08/14/16 18:31 Sodium Chloride (Sodium Chloride 1000ml bag) 1,000 ml @ 50 mls/hr Q20H IV 08/14/16 12:30 09/13/16 12:29 08/14/16 12:51 Sucralfate (Carafate) 1 gm QID ORAL 08/14/16 13:00 09/13/16 12:59 08/14/16 18:31 Temazepam (Restoril) 15 mg HSPRN PRN ORAL Insomnia 08/14/16 21:00 08/21/16 20:59 Allergies: Coded Allergies: No Known Allergies (Unverified , 04/24/14) ROS Limited/Unobtainable: No Constitutional: Reports: no symptoms HEENT: Reports: no symptoms Cardiovascular: Reports: no symptoms Respiratory: Reports: no symptoms Gastrointestinal/Abdominal: Reports: no symptoms Genitourinary: Reports: no symptoms Neurologic/Psychiatric: Reports: headache Subjective 45 YO F admitted with headache and diabetic ketoacidosis; Uncontrolled hypertension as well. Cover for Int Alejo-Dr Hardin. Objective Last Vital Signs Date Time Temp Pulse Resp B/P Pulse Ox O2 Delivery O2 Flow Rate FiO2 08/14/16 18:30 132/71 08/14/16 16:34 98.1 85 18 96 Room Air General Appearance: WD/WN, no apparent distress, alert EENT: normal ENT inspection Neck: non-tender, normal alignment, supple, normal inspection, abnormal alignment Cardiovascular: normal rate, regular rhythm, no gallop/murmur, no JVD Respiratory/Chest: chest wall non-tender, lungs clear, normal breath sounds, no respiratory distress, no accessory muscle use Abdomen: normal bowel sounds, non tender, soft, no organomegaly, no mass Extremities: normal range of motion Neurologic: outsole paraffiner II-XII grossly normal, no motor/sensory deficits Skin: normal pigmentation, warm/dry Laboratory Tests Test 08/14/16 05:00 08/14/16 06:55 White Blood Count 6.0 K/UL (4.8-10.8) 7.4 K/UL (4.8-10.8) Red Blood Count 2.37 M/UL (4.20-5.40) L 2.82 M/UL (4.20-5.40) L Hemoglobin 7.2 G/DL (12.0-16.0) L 8.5 G/DL (12.0-16.0) L Hematocrit 23.1 % (37.0-47.0) L 27.0 % (37.0-47.0) L Mean Corpuscular Volume 98 FL (80-99) 96 FL (80-99) Mean Corpuscular Hemoglobin 30.4 PG (27.0-31.0) 30.3 PG (27.0-31.0) Mean Corpuscular Hemoglobin Concent 31.1 G/DL (32.0-36.0) L 31.7 G/DL (32.0-36.0) L Red Cell Distribution Width 17.0 % (11.6-14.8) H 15.9 % (11.6-14.8) H Platelet Count 308 K/UL (150-450) 354 K/UL (150-450) Mean Platelet Volume 6.5 FL (6.5-10.1) 6.3 FL (6.5-10.1) L Neutrophils (%) (Auto) % (45.0-75.0) 38.2 % (45.0-75.0) L Lymphocytes (%) (Auto) % (20.0-45.0) 49.3 % (20.0-45.0) H Monocytes (%) (Auto) % (1.0-10.0) 9.8 % (1.0-10.0) Eosinophils (%) (Auto) % (0.0-3.0) 1.7 % (0.0-3.0) Basophils (%) (Auto) % (0.0-2.0) 1.1 % (0.0-2.0) Reticulocyte Count 1.2 % (0.0-2.0) Prothrombin Time 10.7 SEC (9.30-11.50) Prothromb Time International Ratio 1.1 (0.9-1.1) Activated Partial Thromboplast Time 25 SEC (23-33) Sodium Level 140 mEQ/L (135-145) Potassium Level 3.6 mEQ/L (3.4-4.9) Chloride Level 98 mEQ/L (98-107) Carbon Dioxide Level 32 mEQ/L (20-30) H Anion Gap 10 (5-15) Blood Urea Nitrogen 17 mg/dL (7-23) Creatinine 1.0 mg/dL (0.5-0.9) H Estimat Glomerular Filtration Rate > 60 mL/min (>60) Glucose Level 268 mg/dL (74-106) H Calcium Level 7.8 mg/dL (8.6-10.2) L Iron Level 89 ug/dL (37-145) Total Iron Binding Capacity 235 ug/dL (250-400) L Percent Iron Saturation 38 % (15-50) Unsaturated Iron Binding 146 ug/dL (112-346) Ferritin 89 ng/mL (13-150) Troponin I < 0.30 ng/mL (<=0.30) Carcinoembryonic Antigen 2.4 ng/mL Vitamin B12 Level 506 pg/mL (211-946) Folate Pending Thyroid Stimulating Hormone (TSH) 0.950 uIU/mL (0.300-4.500) Free Thyroxine 1.14 ng/dL (0.86-1.85) Microbiology Date/Time Source Procedure Growth Status 08/12/16 15:58 Rectum VRE Culture - Final NO VANCOMYCIN RESISTANT ENTEROCOCCUS ... Complete Intake and Output 08/13/16 08/14/16 19:00 07:00 Intake Total 824.14 ml 1104.2 ml Balance 824.14 ml 1104.2 ml Intake Oral 510 ml 200 ml IV Total 314.14 ml 904.2 ml # Voids 2 2 Assessment/Plan Problem List: (1) Hypertensive urgency Assessment & Plan: See cardiology note. Cont amlodipine and lisinopril. (2) Diabetic ketoacidosis, type I Assessment & Plan: See endocrinology note. cont levemir and novolog sliding scale. Insulin pump management as outpatient. (3) Diabetes type 1, uncontrolled (4) Diabetic gastroparesis (5) GERD (gastroesophageal reflux disease) (6) Headache Assessment & Plan: See neurology note. ?due to uncontrolled hypertesion? (7) Depression Assessment & Plan: Cont brittaalta. CHRISTOS JACOBSEN Aug 14, 2016 19:27
[2016-08-15] VITALS (8 sets, daily range): BP systolic 136–171; BP diastolic 68–92
[2016-08-15] MEDS: NovoLOG Insulin Flexpen SUBQ SCH ×7 (06:26→21:00)
--- NOTE | 2016-08-15 06:41 | General Progress Note ---
Assessment/Plan Problem List: (1) Diabetic ketoacidosis, type I ICD Codes: E10.10 - Ketoacidosis in patient with type 1 diabetes mellitus SNOMED: 151302236 (2) HTN (hypertension) ICD Codes: I10 - HTN (hypertension) SNOMED: 38441345 (3) Diabetic gastroparesis ICD Codes: E11.43 - Diabetic gastroparesis SNOMED: 35856124 (4) Diabetes type 1, uncontrolled ICD Codes: E10.65 - Type 1 diabetes mellitus with hyperglycemia SNOMED: 119532334, 300953280 Assessment/Plan increase Levemir to 18 units qam continue Novolog 5 units ac tid + SSI plan to initiate insulin pump therapy as OP Subjective Allergies: Coded Allergies: No Known Allergies (Unverified , 04/24/14) All Systems: reviewed and negative except above Subjective events noted - transferred out of icu Objective Last 24 Hour Vital Signs Date Time Temp Pulse Resp B/P Pulse Ox O2 Delivery O2 Flow Rate FiO2 08/15/16 04:00 97.5 88 21 157/81 89 Room Air 08/15/16 00:00 97.5 84 20 136/68 99 Room Air 08/14/16 20:25 98.2 80 19 134/88 99 Room Air 08/14/16 19:53 93 18 Room Air 08/14/16 18:30 132/71 08/14/16 16:34 98.1 85 18 132/71 96 Room Air 08/14/16 12:00 97.7 89 19 152/88 95 Room Air 08/14/16 10:05 90 12 124/56 93 Room Air 08/14/16 09:00 93 12 152/76 95 Room Air 08/14/16 08:42 174/76 08/14/16 08:41 91 174/76 08/14/16 08:00 97.7 90 15 174/76 98 Room Air 08/14/16 08:00 91 08/14/16 07:30 95 18 Room Air 08/14/16 07:00 73 21 132/96 99 Room Air Intake and Output 08/14/16 08/15/16 19:00 07:00 Intake Total 765 ml 1050 ml Balance 765 ml 1050 ml Intake Oral 390 ml 600 ml IV Total 375 ml 450 ml # Voids 2 2 Laboratory Tests 08/14/16 06:55: White Blood Count 7.4, Red Blood Count 2.82L, Hemoglobin 8.5L, Hematocrit 27.0L , Mean Corpuscular Volume 96, Mean Corpuscular Hemoglobin 30.3, Mean Corpuscular Hemoglobin Concent 31.7L, Red Cell Distribution Width 15.9H, Platelet Count 354, Mean Platelet Volume 6.3L, Neutrophils (%) (Auto) 38.2L, Lymphocytes (%) (Auto) 49.3H, Monocytes (%) (Auto) 9.8, Eosinophils (%) (Auto) 1.7, Basophils (%) (Auto) 1.1 08/15/16 05:00: White Blood Count [Pending], Red Blood Count [Pending], Hemoglobin [Pending], Hematocrit [Pending], Mean Corpuscular Volume [Pending], Mean Corpuscular Hemoglobin [Pending], Mean Corpuscular Hemoglobin Concent [Pending], Red Cell Distribution Width [Pending], Platelet Count [Pending], Mean Platelet Volume [ Pending], Neutrophils (%) (Auto) [Pending], Lymphocytes (%) (Auto) [Pending], Monocytes (%) (Auto) [Pending], Eosinophils (%) (Auto) [Pending], Basophils (%) (Auto) [Pending], Sodium Level [Pending], Potassium Level [Pending], Chloride Level [Pending], Carbon Dioxide Level [Pending], Blood Urea Nitrogen [Pending], Creatinine [Pending], Estimat Glomerular Filtration Rate [Pending], Glucose Level [Pending], Calcium Level [Pending], Phosphorus Level [Pending], Magnesium Level [Pending], Total Bilirubin [Pending], Aspartate Amino Transf (AST/SGOT) [ Pending], Alanine Aminotransferase (ALT/SGPT) [Pending], Alkaline Phosphatase [ Pending], Total Protein [Pending], Albumin [Pending], Globulin [Pending] Height (Feet): 5 Height (Inches): 4.00 Weight (Pounds): 120 General Appearance: no apparent distress EENT: pale conjunctivae Neck: normal alignment Cardiovascular: normal rate Respiratory/Chest: lungs clear Abdomen: normal bowel sounds Edema: 1+ Arm (L), 1+ Arm (R), 1+ Leg (L), 1+ Leg (R), 1+ Pedal (L), 1+ Pedal ( R), 1+ Generalized Objective Item Value Date Time Bedside Blood Glucose 330 mg/dl H 08/15/16 06 Bedside Blood Glucose 101 mg/dl 08/14/162111 Bedside Blood Glucose 192 mg/dl H 08/14/16 0925 Bedside Blood Glucose 92 mg/dl 08/14/16 0600 IVY SULLIVAN Aug 15, 2016 06:41
[2016-08-15 07:26] LABS: ALANINE AMINOTRANSFERASE 36 U/L (3-33); ANION GAP 9 (5-15); ASPARTATE AMINO TRANSFERASE 60 U/L (5-40); CARBON DIOXIDE 32 mEQ/L (20-30); CHLORIDE 96 mEQ/L (98-107); CREATININE 0.9 mg/dL (0.5-0.9); GLOMERULAR FILTRATION RATE > 60 mL/min (>60); HEMOLYSIS 2; MAGNESIUM 1.8 mg/dL (1.7-2.5); PHOSPHORUS 2.4 mg/dL (2.5-4.8); POTASSIUM 4.7 mEQ/L (3.4-4.9); SODIUM 137 mEQ/L (135-145); TOTAL PROTEIN 5.6 g/dL (6.6-8.7)
--- NOTE | 2016-08-15 07:54 | Cardiology Report ---
APPROVED REPORT EXAM: Two-dimensional and M-mode echocardiogram with Doppler and color Doppler. INDICATION LV function M-Mode DIMENSIONS IVSd0.9 (0.7-1.1cm)Left Atrium (MM)3.4 (1.6-4.0cm) LVDd4.5 (3.5-5.6cm)Aortic Root2.2 (2.0-3.7cm) PWd0.9 (0.7-1.1cm)Aortic Cusp Exc.1.7 (1.5-2.0cm) LVDs3.0 (2.5-4.0cm) PWs1.3 cm Normal left ventricular chamber size, systolic function and wall motion. Left ventricular ejection fraction estimated to be 60-65 %. Mild left ventricular hypertrophy by 2-D. Trivial posterior pericardial effusion. All other cardiac chamber sizes are within normal limits. Mild focal aortic valve sclerosis with adequate cusp excursion. Mildly thickened mitral valve leaflets with normal excursion. Mild mitral annulus and aortic root calcification. Pulmonic valve not well visualized. Normal tricuspid valve structure. IVC measured at 2.3 cm with slight physiologic collapse suggestive of mildly increased RA pressure. A color flow and spectral Doppler study was performed and revealed: Trace to mild mitral regurgitation. Mitral inflow indicates normal left ventricular diastolic function. Mild to moderate tricuspid regurgitation. Tricuspid systolic velocities suggests peak right ventricular systolic pressure of 53 mmHg, consistent with moderate pulmonary hypertension.
[2016-08-15 08:45] LABS: MEAN CORPUSCULAR HEMOGLOBIN 30.1 PG (27.0-31.0); MEAN CORPUSCULAR HGB CONC 30.2 G/DL (32.0-36.0); MEAN CORPUSCULAR VOLUME 100 FL (80-99); MEAN PLATELET VOLUME 6.1 FL (6.5-10.1); PLATELET COUNT 291 K/UL (150-450); RED BLOOD COUNT 2.59 M/UL (4.20-5.40); RED CELL DISTRIBUTION WIDTH 16.9 % (11.6-14.8)
[2016-08-15] MEDS ORDERED: Levemir Flexpen SUBQ SCH (09:00)
[2016-08-15] MEDS: Sucralfate 1gm tab ORAL SCH ×5 (09:21→22:02)
[2016-08-15] MEDS: Lyrica 75mg cap ORAL SCH ×3 (09:21→19:08)
[2016-08-15] MEDS: Lisinopril 20mg tab ORAL SCH ×2 (09:22→19:08)
[2016-08-15] MEDS: Levemir Flexpen SUBQ SCH (09:23)
[2016-08-15] MEDS: Heparin 5000 units/ml inj SUBQ SCH ×2 (09:24→22:04)
[2016-08-15] MEDS: Morphine Sulfate 2mg/ml Inj IVP PRN ×2 (09:38→19:13)
[2016-08-15 10:13] LABS: ANISOCYTOSIS 1+; BAND NEUTROPHILS % (MANUAL) 0 % (0-8); BASOPHILS % (MANUAL) 0 % (0-2); EOSINOPHILS % (MANUAL) 0 % (0-3); HYPOCHROMASIA 3+; LYMPHOCYTES % (MANUAL) 24 % (20-45); NEUTROPHILS % (MANUAL) 72 % (45-75); PLATELET ESTIMATE ADEQUATE; PLATELET MORPHOLOGY NORMAL; TOTAL CELLS COUNTED 100
--- NOTE | 2016-08-15 13:11 | Internal Med Progress Note ---
Subjective Date of Service: Aug 15, 2016 Physician Name Christos Jacobsen Attending Physician Aries Hardin MD Current Medications Medications (Trade) Dose Ordered Sig/Lizbeth Route PRN Reason Start Time Stop Time Status Last Admin Dose Admin Acetaminophen (Tylenol) 650 mg Q4H PRN ORAL FEVER>100.5 08/14/16 12:30 09/13/16 12:29 Albuterol/ Ipratropium (DuoNeb 0.5-3(2.5)mg/3ml) 3 ml Q4H PRN HHN Shortness of Breath 08/14/16 12:30 08/19/16 12:29 Amlodipine Besylate (Norvasc) 5 mg Q12HR ORAL 08/15/16 21:00 09/14/16 20:59 Dextrose (Dextrose 50%) STAT PRN IV Hypoglycemia 08/14/16 12:30 09/13/16 12:29 Duloxetine HCl (Cymbalta) 20 mg DAILY ORAL 08/15/16 09:00 09/14/16 08:59 Enalaprilat (Vasotec) 2.5 mg Q6H PRN IV sbp more than 160 08/14/16 12:30 09/13/16 12:29 Heparin Sodium (Porcine) (Heparin 5000 units/ml) 5,000 units EVERY 12 HOURS SUBQ 08/14/16 21:00 09/13/16 20:59 08/15/16 09:24 Insulin Aspart (NovoLOG) BEFORE MEALS AND HS SUBQ 08/14/16 11:30 09/13/16 11:29 08/15/16 12:16 Insulin Aspart (NovoLOG) 5 units NOVOTIAC SUBQ 08/14/16 11:50 09/13/16 11:49 08/15/16 12:15 Insulin Detemir (Levemir) 18 units DAILY@0630 SUBQ 08/15/16 09:00 09/14/16 08:59 08/15/16 09:23 Lisinopril (Prinivil) 20 mg BID ORAL 08/14/16 18:00 09/13/16 17:59 08/15/16 09:22 Morphine Sulfate (Morphine Sulfate) 2 mg Q6H PRN IVP Severe Pain (Pain Scale 7-10) 08/14/16 12:30 08/21/16 12:29 08/15/16 09:38 Nitroglycerin (Ntg) 0.4 mg Q5MIN X 3 DOSES PRN SL Prn Chest Pain 08/14/16 12:30 09/13/16 12:29 Ondansetron HCl (Zofran) 4 mg Q6H PRN IVP Nausea & Vomiting 08/14/16 13:30 09/13/16 13:29 Pantoprazole (Protonix) 40 mg ACBREAKFAST ORAL 08/15/16 06:30 09/14/16 06:29 08/15/16 06:27 Polyethylene Glycol (Miralax) 17 gm DAILYPRN PRN ORAL Constipation 08/14/16 14:00 09/13/16 13:59 Pregabalin (Lyrica) 75 mg THREE TIMES A DAY ORAL 08/14/16 13:00 09/13/16 12:59 08/15/16 12:17 Sodium Chloride (Sodium Chloride 1000ml bag) 1,000 ml @ 50 mls/hr Q20H IV 08/14/16 12:30 09/13/16 12:29 08/15/16 07:42 Sucralfate (Carafate) 1 gm QID ORAL 08/14/16 13:00 09/13/16 12:59 08/15/16 09:21 Temazepam (Restoril) 15 mg HSPRN PRN ORAL Insomnia 08/14/16 21:00 08/21/16 20:59 Allergies: Coded Allergies: No Known Allergies (Unverified , 04/24/14) ROS Limited/Unobtainable: No Constitutional: Reports: no symptoms HEENT: Reports: no symptoms Cardiovascular: Reports: no symptoms Respiratory: Reports: no symptoms Gastrointestinal/Abdominal: Reports: no symptoms Genitourinary: Reports: no symptoms Neurologic/Psychiatric: Reports: no symptoms Subjective 45 YO F admitted with headache and diabetic ketoacidosis; Uncontrolled hypertension as well. Cover for Int lAejo-Dr Hardin. Objective Last Vital Signs Date Time Temp Pulse Resp B/P Pulse Ox O2 Delivery O2 Flow Rate FiO2 08/15/16 09:22 156/91 08/15/16 08:00 98.1 100 16 98 Room Air Laboratory Tests Test 08/15/16 05:00 White Blood Count 7.0 K/UL (4.8-10.8) Red Blood Count 2.59 M/UL (4.20-5.40) L Hemoglobin 7.8 G/DL (12.0-16.0) L Hematocrit 25.8 % (37.0-47.0) L Mean Corpuscular Volume 100 FL (80-99) H Mean Corpuscular Hemoglobin 30.1 PG (27.0-31.0) Mean Corpuscular Hemoglobin Concent 30.2 G/DL (32.0-36.0) L Red Cell Distribution Width 16.9 % (11.6-14.8) H Platelet Count 291 K/UL (150-450) Mean Platelet Volume 6.1 FL (6.5-10.1) L Neutrophils (%) (Auto) % (45.0-75.0) Lymphocytes (%) (Auto) % (20.0-45.0) Monocytes (%) (Auto) % (1.0-10.0) Eosinophils (%) (Auto) % (0.0-3.0) Basophils (%) (Auto) % (0.0-2.0) Differential Total Cells Counted 100 Neutrophils % (Manual) 72 % (45-75) Lymphocytes % (Manual) 24 % (20-45) Monocytes % (Manual) 4 % (1-10) Eosinophils % (Manual) 0 % (0-3) Basophils % (Manual) 0 % (0-2) Band Neutrophils 0 % (0-8) Platelet Estimate Adequate Platelet Morphology Normal Hypochromasia 3+ Anisocytosis 1+ Sodium Level 137 mEQ/L (135-145) Potassium Level 4.7 mEQ/L (3.4-4.9) Chloride Level 96 mEQ/L (98-107) L Carbon Dioxide Level 32 mEQ/L (20-30) H Anion Gap 9 (5-15) Blood Urea Nitrogen 16 mg/dL (7-23) Creatinine 0.9 mg/dL (0.5-0.9) Estimat Glomerular Filtration Rate > 60 mL/min (>60) Glucose Level 381 mg/dL (74-106) #H Calcium Level 8.0 mg/dL (8.6-10.2) L Phosphorus Level 2.4 mg/dL (2.5-4.8) L Magnesium Level 1.8 mg/dL (1.7-2.5) Total Bilirubin < 0.2 mg/dL (0.0-1.2) Aspartate Amino Transf (AST/SGOT) 60 U/L (5-40) H Alanine Aminotransferase (ALT/SGPT) 36 U/L (3-33) H Alkaline Phosphatase 97 U/L (35-104) Total Protein 5.6 g/dL (6.6-8.7) L Albumin 2.9 g/dL (3.5-5.2) L Globulin 2.7 g/dL Albumin/Globulin Ratio 1.0 (1.0-2.7) Microbiology Date/Time Source Procedure Growth Status 08/12/16 15:58 Nasal Nares MRSA Culture - Final NO METHICILLIN RESISTANT STAPH AUREUS... Complete 08/12/16 15:58 Rectum VRE Culture - Final NO VANCOMYCIN RESISTANT ENTEROCOCCUS ... Complete Intake and Output 08/14/16 08/15/16 19:00 07:00 Intake Total 765 ml 1200 ml Balance 765 ml 1200 ml Intake Oral 390 ml 600 ml IV Total 375 ml 600 ml # Voids 2 2 Objective General Appearance: WD/WN, no apparent distress, alert EENT: normal ENT inspection Neck: non-tender, normal alignment, supple, normal inspection, abnormal alignment Cardiovascular: normal rate, regular rhythm, no gallop/murmur, no JVD Respiratory/Chest: chest wall non-tender, lungs clear, normal breath sounds, no respiratory distress, no accessory muscle use Abdomen: normal bowel sounds, non tender, soft, no organomegaly, no mass Extremities: normal range of motion 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 Cont amlodipine and lisinopril. (2) Diabetic ketoacidosis, type I Assessment & Plan: See endocrinology note. cont levemir and novolog sliding scale. Insulin pump management as outpatient. (3) Diabetes type 1, uncontrolled Assessment & Plan: Glucose still in 300's. See endocrinology note. Cont levemir and novolog sliding scale. Will need outpatient management of insulin pump. (4) Diabetic gastroparesis (5) GERD (gastroesophageal reflux disease) (6) Headache Assessment & Plan: See neurology note. ?due to uncontrolled hypertesion? (7) Depression Assessment & Plan: Cont cymbalta. (8) Anemia Assessment & Plan: Repeat CBC Status: progressing JACOBSEN,CHRISTOS Aug 15, 2016 13:11
--- NOTE | 2016-08-15 13:11 | GI Progress Note ---
Assessment/Plan Problems: (1) GERD (gastroesophageal reflux disease) ICD Codes: K21.9 - Gastro-esophageal reflux disease without esophagitis SNOMED: 732455880 (2) Gastritis ICD Codes: K29.70 - Gastritis, unspecified, without bleeding SNOMED: 8314136 (3) Hypoalbuminemia ICD Codes: E88.09 - Other disorders of plasma-protein metabolism, not elsewhere classified SNOMED: 731646063 (4) Esophagitis ICD Codes: K20.9 - Esophagitis, unspecified SNOMED: 58265062 (5) Anemia ICD Codes: D64.9 - Anemia, unspecified SNOMED: 835376492 Status: unchanged Status Narrative Discussed with Dr. Patel. Assessment/Plan s/p EGD 04/22/15 >> esophagitis + gastritis pt has implanted contraceptive ok for DC per GI standpoint symptomatic treatment at this time monitor H&H, transfuse prn OB stool uncollected ppi + Carafate >> recommend dc detention use of ppi, consider H2 zofran prn DM mgmt BP mgmt ADA diet fu labs Subjective Gastrointestinal/Abdominal: Reports: no symptoms Objective Last 24 Hour Vital Signs Date Time Temp Pulse Resp B/P Pulse Ox O2 Delivery O2 Flow Rate FiO2 08/15/16 09:22 156/91 08/15/16 08:00 98.1 100 16 156/91 98 Room Air 08/15/16 06:52 104 17 Room Air 08/15/16 04:00 97.5 88 21 157/81 89 Room Air 08/15/16 00:00 97.5 84 20 136/68 99 Room Air 08/14/16 20:25 98.2 80 19 134/88 99 Room Air 08/14/16 19:53 93 18 Room Air 08/14/16 18:30 132/71 08/14/16 16:34 98.1 85 18 132/71 96 Room Air Intake and Output 08/14/16 08/15/16 19:00 07:00 Intake Total 765 ml 1200 ml Balance 765 ml 1200 ml Intake Oral 390 ml 600 ml IV Total 375 ml 600 ml # Voids 2 2 Laboratory Tests Test 08/15/16 05:00 White Blood Count 7.0 K/UL (4.8-10.8) Red Blood Count 2.59 M/UL (4.20-5.40) L Hemoglobin 7.8 G/DL (12.0-16.0) L Hematocrit 25.8 % (37.0-47.0) L Mean Corpuscular Volume 100 FL (80-99) H Mean Corpuscular Hemoglobin 30.1 PG (27.0-31.0) Mean Corpuscular Hemoglobin Concent 30.2 G/DL (32.0-36.0) L Red Cell Distribution Width 16.9 % (11.6-14.8) H Platelet Count 291 K/UL (150-450) Mean Platelet Volume 6.1 FL (6.5-10.1) L Neutrophils (%) (Auto) % (45.0-75.0) Lymphocytes (%) (Auto) % (20.0-45.0) Monocytes (%) (Auto) % (1.0-10.0) Eosinophils (%) (Auto) % (0.0-3.0) Basophils (%) (Auto) % (0.0-2.0) Differential Total Cells Counted 100 Neutrophils % (Manual) 72 % (45-75) Lymphocytes % (Manual) 24 % (20-45) Monocytes % (Manual) 4 % (1-10) Eosinophils % (Manual) 0 % (0-3) Basophils % (Manual) 0 % (0-2) Band Neutrophils 0 % (0-8) Platelet Estimate Adequate Platelet Morphology Normal Hypochromasia 3+ Anisocytosis 1+ Sodium Level 137 mEQ/L (135-145) Potassium Level 4.7 mEQ/L (3.4-4.9) Chloride Level 96 mEQ/L (98-107) L Carbon Dioxide Level 32 mEQ/L (20-30) H Anion Gap 9 (5-15) Blood Urea Nitrogen 16 mg/dL (7-23) Creatinine 0.9 mg/dL (0.5-0.9) Estimat Glomerular Filtration Rate > 60 mL/min (>60) Glucose Level 381 mg/dL (74-106) #H Calcium Level 8.0 mg/dL (8.6-10.2) L Phosphorus Level 2.4 mg/dL (2.5-4.8) L Magnesium Level 1.8 mg/dL (1.7-2.5) Total Bilirubin < 0.2 mg/dL (0.0-1.2) Aspartate Amino Transf (AST/SGOT) 60 U/L (5-40) H Alanine Aminotransferase (ALT/SGPT) 36 U/L (3-33) H Alkaline Phosphatase 97 U/L (35-104) Total Protein 5.6 g/dL (6.6-8.7) L Albumin 2.9 g/dL (3.5-5.2) L Globulin 2.7 g/dL Albumin/Globulin Ratio 1.0 (1.0-2.7) Height (Feet): 5 Height (Inches): 4.00 Weight (Pounds): 120 General Appearance: no apparent distress, alert, thin Cardiovascular: normal rate Respiratory/Chest: normal breath sounds, no respiratory distress Abdominal Exam: normal bowel sounds, non tender, soft Genitourinary/Rectal: normal genital exam Extremities: normal range of motion Venus Hart N.P. Aug 15, 2016 13:11
[2016-08-15 14:17] LABS: BASOPHILS % (AUTO) 0.9 % (0.0-2.0); LYMPHOCYTES % (AUTO) 35.4 % (20.0-45.0); MEAN CORPUSCULAR HEMOGLOBIN 30.9 PG (27.0-31.0); MEAN CORPUSCULAR HGB CONC 31.2 G/DL (32.0-36.0); MEAN CORPUSCULAR VOLUME 99 FL (80-99); MEAN PLATELET VOLUME 6.3 FL (6.5-10.1); MONOCYTES % (AUTO) 5.6 % (1.0-10.0); NEUTROPHILS % (AUTO) 58.1 % (45.0-75.0); PLATELET COUNT 330 K/UL (150-450); RED BLOOD COUNT 2.69 M/UL (4.20-5.40); WHITE BLOOD COUNT 7.9 K/UL (4.8-10.8)
--- NOTE | 2016-08-15 18:56 | Cardiology Progress Note ---
Assessment/Plan Assessment/Plan 1. Hypertensive urgency, poorly controlled, intermittently secondary tononcompliance with medication. 2. Diabetes mellitus with poor controlled diabetic ketoacidosis. 3. Renal insufficiency. 4. Anemia. 5. Diabetes with diabetic ketoacidosis, recurrent. 6. Mitral and tricuspid regurgitation. 7. Pulmonary hypertension. 8. Renal insufficiency. bp is better but not optimal sepcially in light of dm will heplock ivf if bp remain elevated desptie above would add clonidine 0.1 mg bid diabtiec meds Subjective Cardiovascular: Denies: chest pain, irregular heart rate, lightheadedness Respiratory: Denies: SOB with excertion Gastrointestinal/Abdominal: Denies: abdominal pain, black stools Genitourinary: Denies: burning Objective Last 24 Hour Vital Signs Date Time Temp Pulse Resp B/P Pulse Ox O2 Delivery O2 Flow Rate FiO2 08/15/16 16:30 18 151/76 95 Room Air 08/15/16 16:00 98.1 89 20 149/76 82 Room Air 08/15/16 12:00 98.2 100 16 140/75 98 Room Air 08/15/16 09:22 156/91 08/15/16 08:00 98.1 100 16 156/91 98 Room Air 08/15/16 06:52 104 17 Room Air 08/15/16 04:00 97.5 88 21 157/81 89 Room Air 08/15/16 00:00 97.5 84 20 136/68 99 Room Air 08/14/16 20:25 98.2 80 19 134/88 99 Room Air 08/14/16 19:53 93 18 Room Air Intake and Output 08/14/16 08/15/16 19:00 07:00 Intake Total 765 ml 1200 ml Balance 765 ml 1200 ml Intake Oral 390 ml 600 ml IV Total 375 ml 600 ml # Voids 2 2 Laboratory Tests Test 08/15/16 05:00 08/15/16 13:00 08/15/16 13:40 White Blood Count 7.0 K/UL (4.8-10.8) 7.9 K/UL (4.8-10.8) Red Blood Count 2.59 M/UL (4.20-5.40) L 2.69 M/UL (4.20-5.40) L Hemoglobin 7.8 G/DL (12.0-16.0) L 8.3 G/DL (12.0-16.0) L Hematocrit 25.8 % (37.0-47.0) L 26.6 % (37.0-47.0) L Mean Corpuscular Volume 100 FL (80-99) H 99 FL (80-99) Mean Corpuscular Hemoglobin 30.1 PG (27.0-31.0) 30.9 PG (27.0-31.0) Mean Corpuscular Hemoglobin Concent 30.2 G/DL (32.0-36.0) L 31.2 G/DL (32.0-36.0) L Red Cell Distribution Width 16.9 % (11.6-14.8) H 17.0 % (11.6-14.8) H Platelet Count 291 K/UL (150-450) 330 K/UL (150-450) Mean Platelet Volume 6.1 FL (6.5-10.1) L 6.3 FL (6.5-10.1) L Neutrophils (%) (Auto) % (45.0-75.0) 58.1 % (45.0-75.0) Lymphocytes (%) (Auto) % (20.0-45.0) 35.4 % (20.0-45.0) Monocytes (%) (Auto) % (1.0-10.0) 5.6 % (1.0-10.0) Eosinophils (%) (Auto) % (0.0-3.0) 0.0 % (0.0-3.0) Basophils (%) (Auto) % (0.0-2.0) 0.9 % (0.0-2.0) Differential Total Cells Counted 100 Neutrophils % (Manual) 72 % (45-75) Lymphocytes % (Manual) 24 % (20-45) Monocytes % (Manual) 4 % (1-10) Eosinophils % (Manual) 0 % (0-3) Basophils % (Manual) 0 % (0-2) Band Neutrophils 0 % (0-8) Platelet Estimate Adequate Platelet Morphology Normal Hypochromasia 3+ Anisocytosis 1+ Sodium Level 137 mEQ/L (135-145) Potassium Level 4.7 mEQ/L (3.4-4.9) Chloride Level 96 mEQ/L (98-107) L Carbon Dioxide Level 32 mEQ/L (20-30) H Anion Gap 9 (5-15) Blood Urea Nitrogen 16 mg/dL (7-23) Creatinine 0.9 mg/dL (0.5-0.9) Estimat Glomerular Filtration Rate > 60 mL/min (>60) Glucose Level 381 mg/dL (74-106) #H Calcium Level 8.0 mg/dL (8.6-10.2) L Phosphorus Level 2.4 mg/dL (2.5-4.8) L Magnesium Level 1.8 mg/dL (1.7-2.5) Total Bilirubin < 0.2 mg/dL (0.0-1.2) Aspartate Amino Transf (AST/SGOT) 60 U/L (5-40) H Alanine Aminotransferase (ALT/SGPT) 36 U/L (3-33) H Alkaline Phosphatase 97 U/L (35-104) Total Protein 5.6 g/dL (6.6-8.7) L Albumin 2.9 g/dL (3.5-5.2) L Globulin 2.7 g/dL Albumin/Globulin Ratio 1.0 (1.0-2.7) Stool Occult Blood Pending GIANNI JORGE Aug 15, 2016 18:56
[2016-08-16] VITALS: BP 155/83
[2016-08-16 04:52] VITALS: BP_SYST 107; BP_SYST 157; BP_DIAS 44; BP_DIAS 81
[2016-08-16] MEDS: Levemir Flexpen SUBQ SCH (06:56)
[2016-08-16] MEDS: NovoLOG Insulin Flexpen SUBQ SCH ×4 (06:57→12:51)
--- NOTE | 2016-08-16 06:58 | General Progress Note ---
Assessment/Plan Problem List: (1) Diabetic ketoacidosis, type I ICD Codes: E10.10 - Ketoacidosis in patient with type 1 diabetes mellitus SNOMED: 993528124 (2) HTN (hypertension) ICD Codes: I10 - HTN (hypertension) SNOMED: 15903169 (3) Diabetic gastroparesis ICD Codes: E11.43 - Diabetic gastroparesis SNOMED: 56282652 (4) Diabetes type 1, uncontrolled ICD Codes: E10.65 - Type 1 diabetes mellitus with hyperglycemia SNOMED: 776381122, 148192096 Assessment/Plan continue Levemir 18 units qam continue Novolog 5 units ac tid + SSI plan to initiate insulin pump therapy as OP Subjective Allergies: Coded Allergies: No Known Allergies (Unverified , 04/24/14) All Systems: reviewed and negative except above Subjective events noted Objective Last 24 Hour Vital Signs Date Time Temp Pulse Resp B/P Pulse Ox O2 Delivery O2 Flow Rate FiO2 08/16/16 04:52 98.2 71 19 157/81 95 Room Air 08/16/16 00:00 97.7 87 20 155/83 90 Room Air 08/15/16 22:49 167/87 08/15/16 20:44 89 171/92 08/15/16 20:30 168/88 08/15/16 20:00 97.2 89 20 171/92 93 Room Air 08/15/16 19:30 90 20 Room Air 21 08/15/16 19:08 151/76 08/15/16 16:30 18 151/76 95 Room Air 08/15/16 16:00 98.1 89 20 149/76 82 Room Air 08/15/16 12:00 98.2 100 16 140/75 98 Room Air 08/15/16 09:22 156/91 08/15/16 08:00 98.1 100 16 156/91 98 Room Air Intake and Output 08/15/16 08/16/16 19:00 07:00 Intake Total 590 ml 60 ml Balance 590 ml 60 ml Intake Oral 240 ml 60 ml IV Total 350 ml # Voids 2 # Bowel Movements 1 Laboratory Tests 08/15/16 13:00: Stool Occult Blood [Pending] 08/15/16 13:40: White Blood Count 7.9, Red Blood Count 2.69L, Hemoglobin 8.3L, Hematocrit 26.6L , Mean Corpuscular Volume 99, Mean Corpuscular Hemoglobin 30.9, Mean Corpuscular Hemoglobin Concent 31.2L, Red Cell Distribution Width 17.0H, Platelet Count 330, Mean Platelet Volume 6.3L, Neutrophils (%) (Auto) 58.1, Lymphocytes (%) (Auto) 35.4, Monocytes (%) (Auto) 5.6, Eosinophils (%) (Auto) 0.0, Basophils (%) (Auto) 0.9 Height (Feet): 5 Height (Inches): 4.00 Weight (Pounds): 120 General Appearance: no apparent distress Neck: normal alignment Cardiovascular: normal rate Respiratory/Chest: lungs clear Abdomen: normal bowel sounds Objective Current Medications Medications (Trade) Dose Ordered Sig/Lizbeth Route PRN Reason Start Time Stop Time Status Last Admin Dose Admin Acetaminophen (Tylenol) 650 mg Q4H PRN ORAL FEVER>100.5 08/14/16 12:30 09/13/16 12:29 Albuterol/ Ipratropium (DuoNeb 0.5-3(2.5)mg/3ml) 3 ml Q4H PRN HHN Shortness of Breath 08/14/16 12:30 08/19/16 12:29 Amlodipine Besylate (Norvasc) 5 mg Q12HR ORAL 08/15/16 21:00 09/14/16 20:59 08/15/16 20:44 Clonidine HCl (Catapres) 0.1 mg Q4H PRN ORAL if systolic BP >160 08/15/16 22:15 09/14/16 22:14 08/15/16 22:49 Dextrose (Dextrose 50%) STAT PRN IV Hypoglycemia 08/14/16 12:30 09/13/16 12:29 08/15/16 19:34 Enalaprilat (Vasotec) 2.5 mg Q6H PRN IV sbp more than 160 08/14/16 12:30 09/13/16 12:29 Heparin Sodium (Porcine) (Heparin 5000 units/ml) 5,000 units EVERY 12 HOURS SUBQ 08/14/16 21:00 09/13/16 20:59 08/15/16 22:04 Insulin Aspart (NovoLOG) BEFORE MEALS AND HS SUBQ 08/14/16 11:30 09/13/16 11:29 08/15/16 17:18 Insulin Aspart (NovoLOG) 5 units NOVOTIAC SUBQ 08/14/16 11:50 09/13/16 11:49 08/15/16 17:17 Insulin Detemir (Levemir) 18 units DAILY@0630 SUBQ 08/15/16 09:00 09/14/16 08:59 08/15/16 09:23 Lisinopril (Prinivil) 20 mg BID ORAL 08/14/16 18:00 09/13/16 17:59 08/15/16 19:08 Morphine Sulfate (Morphine Sulfate) 2 mg Q4H PRN IVP Severe Pain (Pain Scale 7-10) 08/16/16 06:25 08/23/16 06:24 Nitroglycerin (Ntg) 0.4 mg Q5MIN X 3 DOSES PRN SL Prn Chest Pain 08/14/16 12:30 09/13/16 12:29 Ondansetron HCl (Zofran) 4 mg Q6H PRN IVP Nausea & Vomiting 08/14/16 13:30 09/13/16 13:29 Pantoprazole (Protonix) 40 mg ACBREAKFAST ORAL 08/15/16 06:30 09/14/16 06:29 08/15/16 06:27 Polyethylene Glycol (Miralax) 17 gm DAILYPRN PRN ORAL Constipation 08/14/16 14:00 09/13/16 13:59 Pregabalin (Lyrica) 75 mg THREE TIMES A DAY ORAL 08/14/16 13:00 09/13/16 12:59 08/15/16 19:08 Sucralfate (Carafate) 1 gm QID ORAL 08/14/16 13:00 09/13/16 12:59 08/15/16 22:02 Temazepam (Restoril) 15 mg HSPRN PRN ORAL Insomnia 08/14/16 21:00 08/21/16 20:59 Item Value Date Time Bedside Blood Glucose 277 mg/dl H 08/16/16 0656 Bedside Blood Glucose 104 mg/dl 08/15/16 2145 Bedside Blood Glucose 226 mg/dl H 08/15/16 1718 Bedside Blood Glucose 343 mg/dl H 08/15/16 1216 Bedside Blood Glucose 330 mg/dl H 08/15/16 0923 Bedside Blood Glucose 330 mg/dl H 08/15/16 0641 IVY SULLIVAN Aug 16, 2016 06:58
[2016-08-16] MEDS: Morphine Sulfate 2mg/ml Inj IVP PRN ×2 (07:51→12:48)
[2016-08-16 08:00] VITALS: BP 167/94
[2016-08-16] MEDS: Heparin 5000 units/ml inj SUBQ SCH (08:10)
[2016-08-16] MEDS: Sucralfate 1gm tab ORAL SCH ×2 (08:10→12:47)
[2016-08-16 08:16] LABS: BASOPHILS % (AUTO) 0.8 % (0.0-2.0); EOSINOPHILS % (AUTO) 1.5 % (0.0-3.0); LYMPHOCYTES % (AUTO) 19.8 % (20.0-45.0); MEAN CORPUSCULAR HEMOGLOBIN 29.7 PG (27.0-31.0); MEAN CORPUSCULAR VOLUME 99 FL (80-99); MONOCYTES % (AUTO) 4.2 % (1.0-10.0); NEUTROPHILS % (AUTO) 73.7 % (45.0-75.0); PLATELET COUNT 343 K/UL (150-450); RED BLOOD COUNT 3.13 M/UL (4.20-5.40); RED CELL DISTRIBUTION WIDTH 16.3 % (11.6-14.8); WHITE BLOOD COUNT 10.5 K/UL (4.8-10.8)
[2016-08-16] MEDS: Lisinopril 20mg tab ORAL SCH (08:18)
[2016-08-16] MEDS: Lyrica 75mg cap ORAL SCH ×2 (08:19→12:48)
[2016-08-16 08:28] LABS: ANION GAP 15 (5-15); CALCIUM 8.7 mg/dL (8.6-10.2); CARBON DIOXIDE 31 mEQ/L (20-30); CHLORIDE 93 mEQ/L (98-107); CREATININE 0.8 mg/dL (0.5-0.9); GLOMERULAR FILTRATION RATE > 60 mL/min (>60); HEMOLYSIS 0; POTASSIUM 4.1 mEQ/L (3.4-4.9); SODIUM 139 mEQ/L (135-145)
--- NOTE | 2016-08-16 10:50 | GI Progress Note ---
Assessment/Plan Problems: (1) GERD (gastroesophageal reflux disease) ICD Codes: K21.9 - Gastro-esophageal reflux disease without esophagitis SNOMED: 402394330 (2) Gastritis ICD Codes: K29.70 - Gastritis, unspecified, without bleeding SNOMED: 7638761 (3) Hypoalbuminemia ICD Codes: E88.09 - Other disorders of plasma-protein metabolism, not elsewhere classified SNOMED: 846775016 (4) Esophagitis ICD Codes: K20.9 - Esophagitis, unspecified SNOMED: 66341234 (5) Anemia ICD Codes: D64.9 - Anemia, unspecified SNOMED: 091298165 Status: stable Status Narrative Discussed with Dr. Patel. Assessment/Plan s/p EGD 04/22/15 >> esophagitis + gastritis pt has implanted contraceptive OB stool negative ok for DC per GI standpoint symptomatic treatment at this time monitor H&H, transfuse prn ppi + Carafate >> recommend dc strap cutter use of ppi, consider H2 zofran prn DM mgmt BP mgmt ADA diet ETOH cessation fu labs Subjective Gastrointestinal/Abdominal: Reports: no symptoms Objective Last 24 Hour Vital Signs Date Time Temp Pulse Resp B/P Pulse Ox O2 Delivery O2 Flow Rate FiO2 08/16/16 08:47 94 20 Room Air 08/16/16 08:18 167/94 08/16/16 08:18 101 167/94 08/16/16 08:00 97.9 101 18 167/94 91 Room Air 08/16/16 04:52 98.2 71 19 157/81 95 Room Air 08/16/16 00:00 97.7 87 20 155/83 90 Room Air 08/15/16 22:49 167/87 08/15/16 20:44 89 171/92 08/15/16 20:30 168/88 08/15/16 20:00 97.2 89 20 171/92 93 Room Air 08/15/16 19:30 90 20 Room Air 21 08/15/16 19:08 151/76 08/15/16 16:30 18 151/76 95 Room Air 08/15/16 16:00 98.1 89 20 149/76 82 Room Air 08/15/16 12:00 98.2 100 16 140/75 98 Room Air Intake and Output 08/15/16 08/16/16 19:00 07:00 Intake Total 590 ml 60 ml Balance 590 ml 60 ml Intake Oral 240 ml 60 ml IV Total 350 ml # Voids 2 # Bowel Movements 1 Laboratory Tests Test 08/15/16 13:00 08/15/16 13:40 08/16/16 07:00 Stool Occult Blood Negative (NEGATIVE) White Blood Count 7.9 K/UL (4.8-10.8) 10.5 K/UL (4.8-10.8) Red Blood Count 2.69 M/UL (4.20-5.40) L 3.13 M/UL (4.20-5.40) L Hemoglobin 8.3 G/DL (12.0-16.0) L 9.3 G/DL (12.0-16.0) L Hematocrit 26.6 % (37.0-47.0) L 30.9 % (37.0-47.0) L Mean Corpuscular Volume 99 FL (80-99) 99 FL (80-99) Mean Corpuscular Hemoglobin 30.9 PG (27.0-31.0) 29.7 PG (27.0-31.0) Mean Corpuscular Hemoglobin Concent 31.2 G/DL (32.0-36.0) L 30.0 G/DL (32.0-36.0) L Red Cell Distribution Width 17.0 % (11.6-14.8) H 16.3 % (11.6-14.8) H Platelet Count 330 K/UL (150-450) 343 K/UL (150-450) Mean Platelet Volume 6.3 FL (6.5-10.1) L 6.0 FL (6.5-10.1) L Neutrophils (%) (Auto) 58.1 % (45.0-75.0) 73.7 % (45.0-75.0) Lymphocytes (%) (Auto) 35.4 % (20.0-45.0) 19.8 % (20.0-45.0) L Monocytes (%) (Auto) 5.6 % (1.0-10.0) 4.2 % (1.0-10.0) Eosinophils (%) (Auto) 0.0 % (0.0-3.0) 1.5 % (0.0-3.0) Basophils (%) (Auto) 0.9 % (0.0-2.0) 0.8 % (0.0-2.0) Sodium Level 139 mEQ/L (135-145) Potassium Level 4.1 mEQ/L (3.4-4.9) Chloride Level 93 mEQ/L (98-107) L Carbon Dioxide Level 31 mEQ/L (20-30) H Anion Gap 15 (5-15) Blood Urea Nitrogen 12 mg/dL (7-23) Creatinine 0.8 mg/dL (0.5-0.9) Estimat Glomerular Filtration Rate > 60 mL/min (>60) Glucose Level 373 mg/dL (74-106) H Calcium Level 8.7 mg/dL (8.6-10.2) Height (Feet): 5 Height (Inches): 4.00 Weight (Pounds): 120 General Appearance: no apparent distress, alert Cardiovascular: normal rate Respiratory/Chest: normal breath sounds, no respiratory distress Abdominal Exam: normal bowel sounds, non tender, soft Extremities: normal range of motion Venus Hart N.P. Aug 16, 2016 10:50
--- NOTE | 2016-08-16 12:30 | Diagnostic Imaging Report ---
APPROVED REPORT CPT Code: 55260 Present Symptoms Lower Extremity Pain: Bilateral BILATERAL: Imaging reveals a patent deep venous system bilaterally. There is no evidence of thrombus within the femoral, popliteal or tibial segments. The greater saphenous veins are also within normal limits. Doppler indicates normal spontaneous flow within these segments.
[2016-08-16 12:35] VITALS: BP 173/89
[2016-08-16 12:47] VITALS: BP 173/89
--- NOTE | 2016-08-16 15:00 | Discharge Summary ---
Discharge Summary Hospital Course Date of Admission Aug 12, 2016 at 14:50 Date of Discharge Admitting Diagnosis hypertensive urgency HPI Tricia Carpio is a 45 year old female who was admitted on Aug 12, 2016 at 14 :50 for Hypertensive Urgency Hospital Course The patient was seen and examined at bedside and all new and available data was reviewed in the patients chart. Last 24 Hour Vital Signs Date Time Temp Pulse Resp B/P Pulse Ox O2 Delivery O2 Flow Rate FiO2 08/16/16 12:47 173/89 08/16/16 12:35 98.8 88 18 173/89 90 Room Air 08/16/16 08:47 94 20 Room Air 21 08/16/16 08:18 167/94 08/16/16 08:18 101 167/94 08/16/16 08:00 97.9 101 18 167/94 91 Room Air 08/16/16 04:52 98.2 71 19 157/81 95 Room Air 08/16/16 00:00 97.7 87 20 155/83 90 Room Air 08/15/16 22:49 167/87 08/15/16 20:44 89 171/92 08/15/16 20:30 168/88 08/15/16 20:00 97.2 89 20 171/92 93 Room Air 08/15/16 19:30 90 20 Room Air 21 08/15/16 19:08 151/76 08/15/16 16:30 18 151/76 95 Room Air 08/15/16 16:00 98.1 89 20 149/76 82 Room Air General Appearance: WD/WN, no apparent distress, alert EENT: normal ENT inspection Neck: non-tender, normal alignment, supple, normal inspection, abnormal alignment Cardiovascular: normal rate, regular rhythm, no gallop/murmur, no JVD Respiratory/Chest: chest wall non-tender, lungs clear, normal breath sounds, no respiratory distress, no accessory muscle use Abdomen: normal bowel sounds, non tender, soft, no organomegaly, no mass Extremities: normal range of motion 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 Signature timestamp does not reflect patient encounter time) Aries Hardin MD Discharge Discharge Disposition Patient was discharged to Discharge Diagnoses: Aries Hardin MD 2, 2017 15:00
[2016-08-16] MEDS ORDERED: DIOVAN160 MG ORAL (15:03)
[2016-08-16] MEDS ORDERED: NORVASC5 MG ORAL (15:03)
[2016-08-16] MEDS ORDERED: CLONIDINE0.1 MG ORAL (15:03)
[2016-08-16] MEDS ORDERED: D5NS 1000ml IV ONE (16:54)
--- NOTE | 2016-08-16 17:40 | Pulmonology Progress Note ---
Assessment/Plan Problems: (1) Diabetic ketoacidosis, type I (2) Hypertensive emergency (3) ARF (acute renal failure) (4) Depression (5) GERD (gastroesophageal reflux disease) (6) Hypoalbuminemia Assessment/Plan improving monitor bp bs better Subjective ROS Limited/Unobtainable: No Interval Events: late note for 08/15/ doing better Allergies: Coded Allergies: No Known Allergies (Unverified , 04/24/14) Objective Last 24 Hour Vital Signs Date Time Temp Pulse Resp B/P Pulse Ox O2 Delivery O2 Flow Rate FiO2 08/16/16 12:47 173/89 08/16/16 12:35 98.8 88 18 173/89 90 Room Air 08/16/16 08:47 94 20 Room Air 21 08/16/16 08:18 167/94 08/16/16 08:18 101 167/94 08/16/16 08:00 97.9 101 18 167/94 91 Room Air 08/16/16 04:52 98.2 71 19 157/81 95 Room Air 08/16/16 00:00 97.7 87 20 155/83 90 Room Air 08/15/16 22:49 167/87 08/15/16 20:44 89 171/92 08/15/16 20:30 168/88 08/15/16 20:00 97.2 89 20 171/92 93 Room Air 08/15/16 19:30 90 20 Room Air 21 08/15/16 19:08 151/76 Intake and Output 08/15/16 08/16/16 19:00 07:00 Intake Total 590 ml 60 ml Balance 590 ml 60 ml Intake Oral 240 ml 60 ml IV Total 350 ml # Voids 2 # Bowel Movements 1 General Appearance: WD/WN HEENT: normocephalic, anicteric Respiratory/Chest: chest wall non-tender, lungs clear Cardiovascular: normal peripheral pulses, normal rate Abdomen: normal bowel sounds, soft, non tender Extremities: no cyanosis Skin: no rash, no ulcers 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 grossly normal Laboratory Tests 08/16/16 07:00: White Blood Count 10.5, Red Blood Count 3.13L, Hemoglobin 9.3L, Hematocrit 30.9L , Mean Corpuscular Volume 99, Mean Corpuscular Hemoglobin 29.7, Mean Corpuscular Hemoglobin Concent 30.0L, Red Cell Distribution Width 16.3H, Platelet Count 343, Mean Platelet Volume 6.0L, Neutrophils (%) (Auto) 73.7, Lymphocytes (%) (Auto) 19.8L, Monocytes (%) (Auto) 4.2, Eosinophils (%) (Auto) 1.5, Basophils (%) (Auto) 0.8, Sodium Level 139, Potassium Level 4.1, Chloride Level 93L, Carbon Dioxide Level 31H, Anion Gap 15, Blood Urea Nitrogen 12, Creatinine 0.8, Estimat Glomerular Filtration Rate > 60, Glucose Level 373H, Calcium Level 8.7 Current Medications Medications (Trade) Dose Ordered Sig/Lizbeth Route PRN Reason Start Time Stop Time Status Last Admin Dose Admin Acetaminophen (Tylenol) 650 mg Q4H PRN ORAL FEVER>100.5 08/14/16 12:30 09/13/16 12:29 Albuterol/ Ipratropium (DuoNeb 0.5-3(2.5)mg/3ml) 3 ml Q4H PRN HHN Shortness of Breath 08/14/16 12:30 08/19/16 12:29 Amlodipine Besylate (Norvasc) 5 mg Q12HR ORAL 08/15/16 21:00 09/14/16 20:59 08/16/16 08:18 Clonidine HCl (Catapres) 0.1 mg Q4H PRN ORAL if systolic BP >160 08/15/16 22:15 09/14/16 22:14 08/16/16 12:47 Dextrose (Dextrose 50%) STAT PRN IV Hypoglycemia 08/14/16 12:30 09/13/16 12:29 08/15/16 19:34 Enalaprilat (Vasotec) 2.5 mg Q6H PRN IV sbp more than 160 08/14/16 12:30 09/13/16 12:29 Heparin Sodium (Porcine) (Heparin 5000 units/ml) 5,000 units EVERY 12 HOURS SUBQ 08/14/16 21:00 09/13/16 20:59 08/15/16 22:04 Insulin Aspart (NovoLOG) BEFORE MEALS AND HS SUBQ 08/14/16 11:30 09/13/16 11:29 08/16/16 12:51 Insulin Aspart (NovoLOG) 5 units NOVOTIAC SUBQ 08/14/16 11:50 09/13/16 11:49 08/16/16 12:50 Insulin Detemir (Levemir) 18 units DAILY@0630 SUBQ 08/15/16 09:00 09/14/16 08:59 08/16/16 06:56 Lisinopril (Prinivil) 20 mg BID ORAL 08/14/16 18:00 09/13/16 17:59 08/16/16 08:18 Morphine Sulfate (Morphine Sulfate) 2 mg Q4H PRN IVP Severe Pain (Pain Scale 7-10) 08/16/16 06:25 08/23/16 06:24 08/16/16 12:48 Nitroglycerin (Ntg) 0.4 mg Q5MIN X 3 DOSES PRN SL Prn Chest Pain 08/14/16 12:30 09/13/16 12:29 Ondansetron HCl (Zofran) 4 mg Q6H PRN IVP Nausea & Vomiting 08/14/16 13:30 09/13/16 13:29 Pantoprazole (Protonix) 40 mg ACBREAKFAST ORAL 08/15/16 06:30 09/14/16 06:29 08/16/16 07:25 Polyethylene Glycol (Miralax) 17 gm DAILYPRN PRN ORAL Constipation 08/14/16 14:00 09/13/16 13:59 Pregabalin (Lyrica) 75 mg THREE TIMES A DAY ORAL 08/14/16 13:00 09/13/16 12:59 08/16/16 12:48 Sucralfate (Carafate) 1 gm QID ORAL 08/14/16 13:00 09/13/16 12:59 08/16/16 12:47 Temazepam (Restoril) 15 mg HSPRN PRN ORAL Insomnia 08/14/16 21:00 08/21/16 20:59 VANESSA SAGASTUME Aug 16, 2016 17:40
--- NOTE | 2016-08-16 17:41 | Pulmonology Progress Note ---
Assessment/Plan Problems: (1) Diabetic ketoacidosis, type I (2) Hypertensive emergency (3) ARF (acute renal failure) (4) Depression (5) GERD (gastroesophageal reflux disease) (6) Hypoalbuminemia Assessment/Plan improving monitor bp bs better\ dc home today Subjective Interval Events: bp much better, no complains Allergies: Coded Allergies: No Known Allergies (Unverified , 04/24/14) Objective Last 24 Hour Vital Signs Date Time Temp Pulse Resp B/P Pulse Ox O2 Delivery O2 Flow Rate FiO2 08/16/16 12:47 173/89 08/16/16 12:35 98.8 88 18 173/89 90 Room Air 08/16/16 08:47 94 20 Room Air 21 08/16/16 08:18 167/94 08/16/16 08:18 101 167/94 08/16/16 08:00 97.9 101 18 167/94 91 Room Air 08/16/16 04:52 98.2 71 19 157/81 95 Room Air 08/16/16 00:00 97.7 87 20 155/83 90 Room Air 08/15/16 22:49 167/87 08/15/16 20:44 89 171/92 08/15/16 20:30 168/88 08/15/16 20:00 97.2 89 20 171/92 93 Room Air 08/15/16 19:30 90 20 Room Air 21 08/15/16 19:08 151/76 Intake and Output 08/15/16 08/16/16 19:00 07:00 Intake Total 590 ml 60 ml Balance 590 ml 60 ml Intake Oral 240 ml 60 ml IV Total 350 ml # Voids 2 # Bowel Movements 1 General Appearance: WD/WN HEENT: normocephalic Respiratory/Chest: chest wall non-tender, lungs clear Breasts: no masses Cardiovascular: normal rate Abdomen: normal bowel sounds, no organomegaly Genitourinary: normal external genitalia Extremities: no clubbing 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, no motor/sensory deficits Laboratory Tests 08/16/16 07:00: White Blood Count 10.5, Red Blood Count 3.13L, Hemoglobin 9.3L, Hematocrit 30.9L , Mean Corpuscular Volume 99, Mean Corpuscular Hemoglobin 29.7, Mean Corpuscular Hemoglobin Concent 30.0L, Red Cell Distribution Width 16.3H, Platelet Count 343, Mean Platelet Volume 6.0L, Neutrophils (%) (Auto) 73.7, Lymphocytes (%) (Auto) 19.8L, Monocytes (%) (Auto) 4.2, Eosinophils (%) (Auto) 1.5, Basophils (%) (Auto) 0.8, Sodium Level 139, Potassium Level 4.1, Chloride Level 93L, Carbon Dioxide Level 31H, Anion Gap 15, Blood Urea Nitrogen 12, Creatinine 0.8, Estimat Glomerular Filtration Rate > 60, Glucose Level 373H, Calcium Level 8.7 Current Medications Medications (Trade) Dose Ordered Sig/Lizbeth Route PRN Reason Start Time Stop Time Status Last Admin Dose Admin Acetaminophen (Tylenol) 650 mg Q4H PRN ORAL FEVER>100.5 08/14/16 12:30 09/13/16 12:29 Albuterol/ Ipratropium (DuoNeb 0.5-3(2.5)mg/3ml) 3 ml Q4H PRN HHN Shortness of Breath 08/14/16 12:30 08/19/16 12:29 Amlodipine Besylate (Norvasc) 5 mg Q12HR ORAL 08/15/16 21:00 09/14/16 20:59 08/16/16 08:18 Clonidine HCl (Catapres) 0.1 mg Q4H PRN ORAL if systolic BP >160 08/15/16 22:15 09/14/16 22:14 08/16/16 12:47 Dextrose (Dextrose 50%) STAT PRN IV Hypoglycemia 08/14/16 12:30 09/13/16 12:29 08/15/16 19:34 Enalaprilat (Vasotec) 2.5 mg Q6H PRN IV sbp more than 160 08/14/16 12:30 09/13/16 12:29 Heparin Sodium (Porcine) (Heparin 5000 units/ml) 5,000 units EVERY 12 HOURS SUBQ 08/14/16 21:00 09/13/16 20:59 08/15/16 22:04 Insulin Aspart (NovoLOG) BEFORE MEALS AND HS SUBQ 08/14/16 11:30 09/13/16 11:29 08/16/16 12:51 Insulin Aspart (NovoLOG) 5 units NOVOTIAC SUBQ 08/14/16 11:50 09/13/16 11:49 08/16/16 12:50 Insulin Detemir (Levemir) 18 units DAILY@0630 SUBQ 08/15/16 09:00 09/14/16 08:59 08/16/16 06:56 Lisinopril (Prinivil) 20 mg BID ORAL 08/14/16 18:00 09/13/16 17:59 08/16/16 08:18 Morphine Sulfate (Morphine Sulfate) 2 mg Q4H PRN IVP Severe Pain (Pain Scale 7-10) 08/16/16 06:25 08/23/16 06:24 08/16/16 12:48 Nitroglycerin (Ntg) 0.4 mg Q5MIN X 3 DOSES PRN SL Prn Chest Pain 08/14/16 12:30 09/13/16 12:29 Ondansetron HCl (Zofran) 4 mg Q6H PRN IVP Nausea & Vomiting 08/14/16 13:30 09/13/16 13:29 Pantoprazole (Protonix) 40 mg ACBREAKFAST ORAL 08/15/16 06:30 09/14/16 06:29 08/16/16 07:25 Polyethylene Glycol (Miralax) 17 gm DAILYPRN PRN ORAL Constipation 08/14/16 14:00 09/13/16 13:59 Pregabalin (Lyrica) 75 mg THREE TIMES A DAY ORAL 08/14/16 13:00 09/13/16 12:59 08/16/16 12:48 Sucralfate (Carafate) 1 gm QID ORAL 08/14/16 13:00 09/13/16 12:59 08/16/16 12:47 Temazepam (Restoril) 15 mg HSPRN PRN ORAL Insomnia 08/14/16 21:00 08/21/16 20:59 VANESSA SAGASTUME Aug 16, 2016 17:41
--- NOTE | 2016-08-16 18:48 | Internal Med Progress Note ---
Subjective Date of Service: Aug 16, 2016 Physician Name Christos Jacobsen Attending Physician Aries Hardin MD Current Medications Medications (Trade) Dose Ordered Sig/Lizbeth Route PRN Reason Start Time Stop Time Status Last Admin Dose Admin Acetaminophen (Tylenol) 650 mg Q4H PRN ORAL FEVER>100.5 08/14/16 12:30 09/13/16 12:29 Albuterol/ Ipratropium (DuoNeb 0.5-3(2.5)mg/3ml) 3 ml Q4H PRN HHN Shortness of Breath 08/14/16 12:30 08/19/16 12:29 Amlodipine Besylate (Norvasc) 5 mg Q12HR ORAL 08/15/16 21:00 09/14/16 20:59 08/16/16 08:18 Clonidine HCl (Catapres) 0.1 mg Q4H PRN ORAL if systolic BP >160 08/15/16 22:15 09/14/16 22:14 08/16/16 12:47 Dextrose (Dextrose 50%) STAT PRN IV Hypoglycemia 08/14/16 12:30 09/13/16 12:29 08/15/16 19:34 Enalaprilat (Vasotec) 2.5 mg Q6H PRN IV sbp more than 160 08/14/16 12:30 09/13/16 12:29 Heparin Sodium (Porcine) (Heparin 5000 units/ml) 5,000 units EVERY 12 HOURS SUBQ 08/14/16 21:00 09/13/16 20:59 08/15/16 22:04 Insulin Aspart (NovoLOG) BEFORE MEALS AND HS SUBQ 08/14/16 11:30 09/13/16 11:29 08/16/16 12:51 Insulin Aspart (NovoLOG) 5 units NOVOTIAC SUBQ 08/14/16 11:50 09/13/16 11:49 08/16/16 12:50 Insulin Detemir (Levemir) 18 units DAILY@0630 SUBQ 08/15/16 09:00 09/14/16 08:59 08/16/16 06:56 Lisinopril (Prinivil) 20 mg BID ORAL 08/14/16 18:00 09/13/16 17:59 08/16/16 08:18 Morphine Sulfate (Morphine Sulfate) 2 mg Q4H PRN IVP Severe Pain (Pain Scale 7-10) 08/16/16 06:25 08/23/16 06:24 08/16/16 12:48 Nitroglycerin (Ntg) 0.4 mg Q5MIN X 3 DOSES PRN SL Prn Chest Pain 08/14/16 12:30 09/13/16 12:29 Ondansetron HCl (Zofran) 4 mg Q6H PRN IVP Nausea & Vomiting 08/14/16 13:30 09/13/16 13:29 Pantoprazole (Protonix) 40 mg ACBREAKFAST ORAL 08/15/16 06:30 09/14/16 06:29 08/16/16 07:25 Polyethylene Glycol (Miralax) 17 gm DAILYPRN PRN ORAL Constipation 08/14/16 14:00 09/13/16 13:59 Pregabalin (Lyrica) 75 mg THREE TIMES A DAY ORAL 08/14/16 13:00 09/13/16 12:59 08/16/16 12:48 Sucralfate (Carafate) 1 gm QID ORAL 08/14/16 13:00 09/13/16 12:59 08/16/16 12:47 Temazepam (Restoril) 15 mg HSPRN PRN ORAL Insomnia 08/14/16 21:00 08/21/16 20:59 Allergies: Coded Allergies: No Known Allergies (Unverified , 04/24/14) ROS Limited/Unobtainable: No Constitutional: Reports: no symptoms HEENT: Reports: no symptoms Cardiovascular: Reports: no symptoms Respiratory: Reports: no symptoms Gastrointestinal/Abdominal: Reports: no symptoms Genitourinary: Reports: no symptoms Neurologic/Psychiatric: Reports: no symptoms Subjective 45 YO F admitted with headache and diabetic ketoacidosis; Uncontrolled hypertension as well. Accucheck glucoses still elevated. Cover for Int Alejo-Dr Hardin. Objective Last Vital Signs Date Time Temp Pulse Resp B/P Pulse Ox O2 Delivery O2 Flow Rate FiO2 08/16/16 12:47 173/89 08/16/16 12:35 98.8 88 18 90 Room Air 08/16/16 08:47 21 Laboratory Tests Test 08/16/16 07:00 White Blood Count 10.5 K/UL (4.8-10.8) Red Blood Count 3.13 M/UL (4.20-5.40) L Hemoglobin 9.3 G/DL (12.0-16.0) L Hematocrit 30.9 % (37.0-47.0) L Mean Corpuscular Volume 99 FL (80-99) Mean Corpuscular Hemoglobin 29.7 PG (27.0-31.0) Mean Corpuscular Hemoglobin Concent 30.0 G/DL (32.0-36.0) L Red Cell Distribution Width 16.3 % (11.6-14.8) H Platelet Count 343 K/UL (150-450) Mean Platelet Volume 6.0 FL (6.5-10.1) L Neutrophils (%) (Auto) 73.7 % (45.0-75.0) Lymphocytes (%) (Auto) 19.8 % (20.0-45.0) L Monocytes (%) (Auto) 4.2 % (1.0-10.0) Eosinophils (%) (Auto) 1.5 % (0.0-3.0) Basophils (%) (Auto) 0.8 % (0.0-2.0) Sodium Level 139 mEQ/L (135-145) Potassium Level 4.1 mEQ/L (3.4-4.9) Chloride Level 93 mEQ/L (98-107) L Carbon Dioxide Level 31 mEQ/L (20-30) H Anion Gap 15 (5-15) Blood Urea Nitrogen 12 mg/dL (7-23) Creatinine 0.8 mg/dL (0.5-0.9) Estimat Glomerular Filtration Rate > 60 mL/min (>60) Glucose Level 373 mg/dL (74-106) H Calcium Level 8.7 mg/dL (8.6-10.2) Intake and Output 08/15/16 08/16/16 19:00 07:00 Intake Total 590 ml 60 ml Balance 590 ml 60 ml Intake Oral 240 ml 60 ml IV Total 350 ml # Voids 2 # Bowel Movements 1 Objective General Appearance: WD/WN, no apparent distress, alert EENT: normal ENT inspection Neck: non-tender, normal alignment, supple, normal inspection, abnormal alignment Cardiovascular: normal rate, regular rhythm, no gallop/murmur, no JVD Respiratory/Chest: chest wall non-tender, lungs clear, normal breath sounds, no respiratory distress, no accessory muscle use Abdomen: normal bowel sounds, non tender, soft, no organomegaly, no mass Extremities: normal range of motion 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 Cont amlodipine and lisinopril. (2) Diabetic ketoacidosis, type I Assessment & Plan: See endocrinology note. cont levemir and novolog sliding scale. Insulin pump management as outpatient. (3) Diabetes type 1, uncontrolled Assessment & Plan: Glucose still in 300's. See endocrinology note. Cont levemir and novolog sliding scale. Will need outpatient management of insulin pump. (4) Diabetic gastroparesis (5) GERD (gastroesophageal reflux disease) (6) Headache Assessment & Plan: See neurology note. ?due to uncontrolled hypertesion? (7) Depression Assessment & Plan: Cont cymbalta. (8) Anemia Assessment & Plan: Stable hemoglobin Status: not improved Assessment/Plan Discharge planning: home with home health CHRISTOS JACOBSEN Aug 16, 2016 18:48
== END 2016-08-16 16:55 | disposition home or self-care (01) | DRG 304 ==
LOC: EMR 14:11 → 2E 14:50 → EDBEDREQ 21:30 → ICU 08-13 12:27 → 4W 08-14 10:46
DX: I16.0 Hypertensive urgency (principal); E10.10 Type 1 diabetes mellitus with ketoacidosis without coma; N17.9 Acute kidney failure, unspecified; K31.84 Gastroparesis; I27.2 Other secondary pulmonary hypertension; E10.43 Type 1 diabetes mellitus with diabetic autonomic (poly)neuropathy; I08.1 Rheumatic disorders of both mitral and tricuspid valves; D64.9 Anemia, unspecified; K21.9 Gastro-esophageal reflux disease without esophagitis; F32.9 Major depressive disorder, single episode, unspecified; K20.9 Esophagitis, unspecified; K29.70 Gastritis, unspecified, without bleeding; E78.5 Hyperlipidemia, unspecified; Z79.4 Long term (current) use of insulin; Z91.14 Patient's other noncompliance with medication regimen
CPT/HCPCS: 36415; 36569; 70450; 71010; 76937; 80048; 80053; 80061; 82270; 82378; 82550; 82553; 82607; 82728; 82746; 82962; 83036; 83540; 83550; 83735; 84100; 84439; 84443; 84484; 85007; 85025; 85044; 85610; 85730; 86140; 87081; 93005; 93306; 93970; 94664; J1815; J2405; S5561

== ENCOUNTER → 2016-08-30 | Outpatient (CLI) | payer OTHER ==
[~2016-08-30] MED LIST changes: +CLONIDINE0.1 MG ORAL; +DIOVAN160 MG ORAL; +LYRICA50 MG PO; +LYRICA75 M1 ORAL; +MELOXICAM15 MG PO; +ZOFRAN4 M3 ORAL
--- NOTE | 2016-08-31 14:25 | Diagnostic Imaging Report ---
Indication: COUGH Technique: Two views of the chest Comparison: 08/12/2016 Findings: Heart remains borderline enlarged. Lungs and pleural spaces are clear. The bones are unremarkable Impression: Borderline cardiomegaly. No acute process
== END | disposition home or self-care (01) ==
LOC: RAD 15:11
DX: R05 Cough (principal); R06.02 Shortness of breath
CPT/HCPCS: 71020

== ENCOUNTER → 2016-09-13 | Outpatient (CLI) | payer OTHER ==
[2016-09-13 08:39] LABS: BASOPHILS % (AUTO) 1.4 % (0.0-2.0); EOSINOPHILS % (AUTO) 2.6 % (0.0-3.0); LYMPHOCYTES % (AUTO) 39.3 % (20.0-45.0); MEAN CORPUSCULAR HEMOGLOBIN 28.8 PG (27.0-31.0); MEAN CORPUSCULAR HGB CONC 30.9 G/DL (32.0-36.0); MEAN CORPUSCULAR VOLUME 93 FL (80-99); MEAN PLATELET VOLUME 8.8 FL (6.5-10.1); MONOCYTES % (AUTO) 3.7 % (1.0-10.0); NEUTROPHILS % (AUTO) 53.1 % (45.0-75.0); PLATELET COUNT 333 K/UL (150-450); RED BLOOD COUNT 4.32 M/UL (4.20-5.40); RED CELL DISTRIBUTION WIDTH 15.3 % (11.6-14.8); WHITE BLOOD COUNT 6.1 K/UL (4.8-10.8)
[2016-09-13 09:21] LABS: ALANINE AMINOTRANSFERASE 30 U/L (3-33); ALBUMIN/GLOBULIN RATIO 1.2 (1.0-2.7); ANION GAP 19 (5-15); ASPARTATE AMINO TRANSFERASE 33 U/L (5-40); CALCIUM 10.8 mg/dL (8.6-10.2); CARBON DIOXIDE 30 mEQ/L (20-30); CHLORIDE 94 mEQ/L (98-107); CREATININE 1.1 mg/dL (0.5-0.9); GLOMERULAR FILTRATION RATE > 60 mL/min (>60); HEMOLYSIS 3; MAGNESIUM 1.9 mg/dL (1.7-2.5); PHOSPHORUS 4.4 mg/dL (2.5-4.8); POTASSIUM 4.6 mEQ/L (3.4-4.9); SODIUM 143 mEQ/L (135-145); TOTAL PROTEIN 8.9 g/dL (6.6-8.7)
[2016-09-13 09:43] LABS: BILIRUBIN,DIRECT 0.2 mg/dL (0.1-0.3)
--- NOTE | 2016-09-13 10:15 | Diagnostic Imaging Report ---
ndication: Shortness of breath Technique: IV administration nonionic contrast. Spiral acquisitions obtained from the lung bases to the lung apices. Multiplanar and 3-D reconstructions were generated. Total dose length product 724 mGycm. CTDIvol(s) 12, 63, 19, 15 mGy Comparison: None Findings: There is good quality opacification of the pulmonary arteries. No intraluminal filling defects or other findings to suggest acute pulmonary embolus demonstrated. No evidence of thoracic aortic aneurysm or dissection. Normal caliber pulmonary arteries. Normal sized right ventricle. The lungs are clear. No infiltrates, effusions, masses, or nodules. The heart is mildly enlarged. No pericardial effusion. No mediastinal or hilar mass or adenopathy. No axillary or chest wall mass or adenopathy. The liver may be enlarged. The included abdominal viscera are otherwise unremarkable Impression: Negative for acute pulmonary embolus or other acute thoracic pathology Equivocal mild hepatomegaly, incompletely visualized The CT scanner at [facility] is accredited by the [employer] and the scans are performed using protocols designed to limit radiation exposure to as low as reasonably achievable to attain images of sufficient resolution adequate for diagnostic evaluation.
== END | disposition home or self-care (01) ==
LOC: CAT 08:39
DX: R06.02 Shortness of breath (principal); I10 Essential (primary) hypertension; R60.9 Edema, unspecified; R16.0 Hepatomegaly, not elsewhere classified
CPT/HCPCS: 36415; 71275; 80053; 82248; 82607; 82746; 83735; 83880; 84100; 84443; 85025; Q9967

== ENCOUNTER 2016-10-01 14:45 | Emergency (ER) | payer OTHER ==
[~2016-10-01] VITALS: Ht 162.6 cm; Wt 54.4 kg
[~2016-10-01 14:45] MED LIST changes: -ZOFRAN4 M3 ORAL
[2016-10-01 15:10] VITALS: BP 152/80
[2016-10-01 16:24] LABS: ALBUMIN/GLOBULIN RATIO 1.2 (1.0-2.7); CALCIUM 10.1 mg/dL (8.6-10.2); CREATININE 1.5 mg/dL (0.5-0.9); GLOMERULAR FILTRATION RATE 45.7 mL/min (>60); POTASSIUM 4.5 mEQ/L (3.4-4.9); TOTAL PROTEIN 7.1 g/dL (6.6-8.7)
[2016-10-01 16:27] LABS: APPEARANCE,URINE CLEAR; KETONES,URINE 4+ (NEGATIVE); LEUKOCYTE ESTERASE ,URINE 3+ (NEGATIVE); NITRITE,URINE NEGATIVE (NEGATIVE); PH,URINE 5 (4.5-8.0); PROTEIN,URINE 2+ (NEGATIVE); UROBILINOGEN,URINE 1 MG/DL (0.0-1.0)
[2016-10-01 16:35] LABS: BASOPHILS % (AUTO) 0.7 % (0.0-2.0); LYMPHOCYTES % (AUTO) 20.3 % (20.0-45.0); MEAN CORPUSCULAR HEMOGLOBIN 30.7 PG (27.0-31.0); MEAN CORPUSCULAR HGB CONC 33.5 G/DL (32.0-36.0); MEAN CORPUSCULAR VOLUME 92 FL (80-99); MEAN PLATELET VOLUME 7.1 FL (6.5-10.1); PLATELET COUNT 157 K/UL (150-450); RED BLOOD COUNT 3.39 M/UL (4.20-5.40); RED CELL DISTRIBUTION WIDTH 14.2 % (11.6-14.8); WHITE BLOOD COUNT 9.7 K/UL (4.8-10.8)
[2016-10-01 16:39] LABS: BACTERIA,URINE FEW /HPF; ICTOTEST NEGATIVE; RBC,URINE 0-2 /HPF (0 - 2); SQUAMOUS EPITHELIAL CELL,UR FEW /LPF (NONE/OCC)
[2016-10-01] MEDS ORDERED: ZOFRAN4 M3 ORAL (16:57)
[2016-10-01 18:58] VITALS: BP 146/76
[2016-10-01 18:59] VITALS: BP 152/80
--- NOTE | 2016-10-01 20:51 | Emergency Room Report ---
History of Present Illness General Chief Complaint: Nausea, Vomiting, and Diarrhea Source: Patient Present Illness HPI The patient is a 45-year-old female with a history of insulin-dependent diabetes presenting for hyperglycemia and fatigue. The patient states that she has been noncompliant with her insulin and did not use her pump until late this afternoon. The patient took her blood sugar at home which was in the 400s and then began to use her insulin. The patient has been admitted to this hospital 2 months prior for DKA. She does admit to nausea but denies other symptoms including fever, chills, chest pain, shortness of breath, vomiting, numbness or tingling, headache, dysuria, flank pain Allergies: Coded Allergies: No Known Allergies (Unverified , 04/24/14) Patient History Past Medical History: see triage record Pertinent Family History: none Last Menstrual Period: irreg. on mirena Now: No Reviewed Nursing Documentation: PMH: Agreed, PSxH: Agreed Nursing Documentation-PMH Past Medical History: No History, Except For Hx Hypertension: Yes Hx Pacemaker: No Hx Diabetes: Yes - Type 1 Hx Cancer: No Hx Gastrointestinal Problems: Yes - reflux Hx Neurological Problems: No Hx Concentration Difficulty: No Review of Systems All Other Systems: negative except mentioned in HPI Physical Exam Vital Signs Date Time Temp Pulse Resp B/P Pulse Ox O2 Delivery O2 Flow Rate FiO2 10/01/16 14:53 98.2 99 18 152/80 100 Room Air Sp02 EP Interpretation: reviewed, normal General Appearance: no apparent distress, alert, GCS 15, non-toxic Head: normocephalic, atraumatic Eyes: bilateral eye PERRL, bilateral eye normal inspection ENT: hearing grossly normal, normal pharynx, no angioedema, normal voice Neck: full range of motion, supple/symm/no masses Respiratory: chest non-tender, lungs clear, normal breath sounds, speaking full sentences Cardiovascular #1: regular rate, rhythm, no edema Gastrointestinal: normal bowel sounds, non tender, soft, non-distended, no guarding, no rebound Genitourinary: normal inspection, no CVA tenderness Musculoskeletal: back normal, gait/station normal, normal range of motion, non- tender Neurologic: alert, oriented x3, responsive, motor strength/tone normal, sensory intact, speech normal Psychiatric: judgement/insight normal, memory normal, mood/affect normal, no suicidal/homicidal ideation Skin: normal color, no rash, warm/dry, well hydrated Lymphatic: no adenopathy Medical Decision Making PA Attestation Dr. Garcia is my supervising physician. Patient management was discussed with my supervising physician Diagnostic Impression: Primary Impression: Dehydration Additional Impression: Diabetes Qualified Codes: E10.8 - Type 1 diabetes mellitus with unspecified complications ER Course The patient is a 45-year-old female with a history of insulin-dependent diabetes presenting for hyperglycemia and fatigue Differential diagnoses considered but not limited to: DKA, hyperglycemia, acidosis, renal failure, dehydration Physical exam: No tachypnea. Normal heart rate. Afebrile A&Ox4 HEENT exam is unremarkable Abdomen is soft and nontender. Normal bowel sounds. No guarding No CVA tenderness CBC is unremarkable. Leukocytosis CMP shows elevated BUN and creatinine which are consistent with passed results. Hyperglycemia much improved Urinalysis shows 4+ ketones. No signs of infection The patient is given IV fluids and is feeling better. She'll be discharged home with a prescription for Zofran and will continue to take in plenty of fluids. She was educated about the importance of adhering to her insulin regimen and will followup with primary doctor as soon as possible Laboratory Tests Test 10/01/16 15:00 10/01/16 15:57 Urine Color Pale yellow Urine Appearance Clear Urine pH 5 (4.5-8.0) Urine Specific [place] 1.020 (1.005-1.035) Urine Protein 2+ (NEGATIVE) H Urine Glucose (UA) 4+ (NEGATIVE) H Urine Ketones 4+ (NEGATIVE) H Urine Occult Blood 1+ (NEGATIVE) H Urine Nitrite Negative (NEGATIVE) Urine Bilirubin 1+ (NEGATIVE) H Urine Ictotest Negative Urine Urobilinogen 1 MG/DL (0.0-1.0) H Urine Leukocyte Esterase 3+ (NEGATIVE) H Urine RBC 0-2 /HPF (0 - 2) Urine WBC 2-4 /HPF (0 - 2) Urine Squamous Epithelial Cells Few /LPF (NONE/OCC) Urine Bacteria Few /HPF (NONE) Urine HCG, Qualitative Negative Urine Opiates Screen Negative (NEGATIVE) Urine Barbiturates Screen Negative (NEGATIVE) Phencyclidine (PCP) Screen Negative (NEGATIVE) Urine Amphetamines Screen Negative (NEGATIVE) Urine Benzodiazepines Screen Negative (NEGATIVE) Urine Cocaine Screen Negative (NEGATIVE) Urine Marijuana (THC) Screen Negative (NEGATIVE) White Blood Count 9.7 K/UL (4.8-10.8) Red Blood Count 3.39 M/UL (4.20-5.40) L Hemoglobin 10.4 G/DL (12.0-16.0) L Hematocrit 31.1 % (37.0-47.0) L Mean Corpuscular Volume 92 FL (80-99) Mean Corpuscular Hemoglobin 30.7 PG (27.0-31.0) Mean Corpuscular Hemoglobin Concent 33.5 G/DL (32.0-36.0) Red Cell Distribution Width 14.2 % (11.6-14.8) Platelet Count 157 K/UL (150-450) Mean Platelet Volume 7.1 FL (6.5-10.1) Neutrophils (%) (Auto) 75.0 % (45.0-75.0) Lymphocytes (%) (Auto) 20.3 % (20.0-45.0) Monocytes (%) (Auto) 4.0 % (1.0-10.0) Eosinophils (%) (Auto) 0.0 % (0.0-3.0) Basophils (%) (Auto) 0.7 % (0.0-2.0) Sodium Level 135 mEQ/L (135-145) Potassium Level 4.5 mEQ/L (3.4-4.9) Chloride Level 90 mEQ/L (98-107) L Carbon Dioxide Level 24 mEQ/L (20-30) Anion Gap 21 (5-15) H Blood Urea Nitrogen 34 mg/dL (7-23) H Creatinine 1.5 mg/dL (0.5-0.9) H Estimate Glomerular Filtration Rate 45.7 mL/min (>60) Glucose Level 146 mg/dL (74-106) H Calcium Level 10.1 mg/dL (8.6-10.2) Total Bilirubin 0.7 mg/dL (0.0-1.2) Aspartate Amino Transferase (AST) 28 U/L (5-40) Alanine Aminotransferase (ALT) 35 U/L (3-33) H Alkaline Phosphatase 80 U/L (35-104) Total Protein 7.1 g/dL (6.6-8.7) Albumin 3.9 g/dL (3.5-5.2) Globulin 3.2 g/dL Albumin/Globulin Ratio 1.2 (1.0-2.7) Lipase 23 U/L (< 60) Lab Results Impression CBC is unremarkable. Leukocytosis CMP shows elevated BUN and creatinine which are consistent with passed results. Hyperglycemia much improved Urinalysis shows 4+ ketones. No signs of infection Last Vital Signs Date Time Temp Pulse Resp B/P Pulse Ox O2 Delivery O2 Flow Rate FiO2 10/01/16 18:59 98.2 78 18 152/80 100 Room Air Status: improved Disposition: HOME, SELF-CARE Condition: Improved Scripts Ondansetron* (ZOFRAN*) 4 Mg Tablet 4 MG ORAL Q6H Y for Nausea & Vomiting, #20 TAB Prov: UZAIR CORONADO 10/01/16 Patient Instructions: Insulin Treatment for Diabetes Additional Instructions: I discussed my findings with the patient. All questions and concerns have been answered. Treatment and medication compliance have been addressed. I advised the patient that they need to follow up with primary doctor as soon as possible. Return to ED if symptoms worsen, new symptoms arise, or if needed for any reason. Patient verbalized understanding of discharge instructions. UZAIR CORONADO Oct 01, 2016 20:51
== END 2016-10-01 19:02 | disposition home or self-care (01) ==
LOC: EMR 15:10
DX: E10.8 Type 1 diabetes mellitus with unspecified complications (principal); Z79.4 Long term (current) use of insulin; I10 Essential (primary) hypertension; K21.9 Gastro-esophageal reflux disease without esophagitis; E86.0 Dehydration
CPT/HCPCS: 36415; 80053; 80300; 81003; 81025; 83690; 85025; 96360; 99284; J2405

== ENCOUNTER 2016-12-05 05:13 | Inpatient (IN) | payer OTHER ==
[~2016-12-05] VITALS: Ht 160 cm; Wt 64.4 kg
[2016-12-05] VITALS (16 sets, daily range): BP systolic 107–152; BP diastolic 35–76
[~2016-12-05 05:13] MED LIST changes: +ZOFRAN4 M3 ORAL
[2016-12-05] MEDS ORDERED: HYDROmorphone 1mg/ml Carpuject IVP ONE (05:30)
--- NOTE | 2016-12-05 05:39 | Emergency Room Report ---
History of Present Illness General Chief Complaint: Abnormal Labs Source: Patient Present Illness HPI Is a 46-year-old female with a history of insulin-dependent diabetes with several admissions for DKA already. She presents with chief complaint of critically high blood sugar. Onset for one day. No relief with her insulin. She has been vomiting. Subjective fever chills. Also with diffuse abdominal pain. Pain is 10 out of 10. Similar symptom in the past. Allergies: Coded Allergies: No Known Allergies (Unverified , 04/24/14) Patient History Past Medical History: see triage record, old chart reviewed, DM Past Surgical History: other Pertinent Family History: none Social History: Denies: smoking Last Menstrual Period: n/a pt on depo Now: No Immunizations: other Reviewed Nursing Documentation: PMH: Agreed, PSxH: Agreed Nursing Documentation-PMH Hx Hypertension: Yes Hx Pacemaker: No Hx Diabetes: Yes Hx Cancer: No Hx Neurological Problems: No Hx Concentration Difficulty: No Review of Systems Eye: Denies: blurred vision, eye pain ENT: Denies: ear pain, nose congestion, throat swelling Respiratory: Denies: cough, shortness of breath Cardiovascular: Denies: chest pain, palpitations Gastrointestinal: Reports: abdominal pain, nausea, vomiting, Denies: diarrhea Musculoskeletal: Denies: back pain, joint pain Skin: Denies: rash Neurological: Denies: headache, numbness Endocrine: Denies: increased thirst, increased urine Hematologic/Lymphatic: Denies: easy bruising All Other Systems: negative except mentioned in HPI Physical Exam Vital Signs Date Time Temp Pulse Resp B/P Pulse Ox O2 Delivery O2 Flow Rate FiO2 12/05/16 05:04 98.2 120 16 149/71 97 Room Air vitals with tachycardia Sp02 EP Interpretation: reviewed, normal General Appearance: alert, moderate distress, thin, Chronically Ill Head: normocephalic, atraumatic Eyes: bilateral eye EOMI, bilateral eye PERRL ENT: hearing grossly normal, normal pharynx, dry mucus membranes Neck: full range of motion, supple, no meningismus Respiratory: chest non-tender, lungs clear, normal breath sounds Cardiovascular #1: regular rate, rhythm, no murmur, tachycardia Gastrointestinal: normal bowel sounds, non tender, no mass, no organomegaly, no bruit, non-distended Musculoskeletal: back normal, normal range of motion Neurologic: alert, oriented x3 Psychiatric: mood/affect normal Skin: warm/dry Procedures Critical Care Time Critical Care Time Critical care is mandated in this patient who presented with DKA. Patient require my urgent intervention to attenuate the risks of metabolic collapse which may lead to cardiovascular collapse and . Critical care time is 35 minutes excluding any reportable procedure. Critical care time included evaluation, multiple reevaluation, looking at old charts, interpreting laboratory and diagnostic data, discussing case with patient and family and consultants, and charting. Medical Decision Making Diagnostic Impression: Primary Impression: DKA (diabetic ketoacidoses) Qualified Codes: E10.10 - Type 1 diabetes mellitus with ketoacidosis without coma Additional Impressions: Dehydration Noncompliance ARF (acute renal failure) Qualified Codes: N17.9 - Acute kidney failure, unspecified ER Course Patient presents with DKA. ABG showed acidosis and low bicarbonate. Insulin drip started. IV fluid initiated. Patient be admitted to the ICU on insulin drip. Per patient, she hasn't been taking her insulin. Her noncompliance is causing her DKA. This has happened several times in the past. Patient will be admitted to service of Dr. Hardin. Lab Results Impression labs with DKA EKG Diagnostic Results EKG Time: 06:13 Rate: normal Rhythm: NSR ST Segments: no acute changes Rhythm Strip Diag. Results Rhythm Strip Time: 06:03 EP Interpretation: yes Rate: 100 Rhythm: NSR Chest X-Ray Diagnostic Results Chest X-Ray Ordered: Yes # of Views/Limited/Complete: 1 View Interpretation: no consolidation, no effusion, no pneumothorax Indication: Shortness of Breath Impression: No acute disease Date Electronically Signed: Dec 05, 2016 Time Electronically Signed: 06:04 Interpreting ER Physician: Onesimo Aguiar MD Last Vital Signs Date Time Temp Pulse Resp B/P Pulse Ox O2 Delivery O2 Flow Rate FiO2 12/05/16 05:15 99.1 120 16 149/71 97 Room Air Status: improved Disposition: ADMITTED INPATIENT Condition: Critical ONESIMO AGUIAR M.D. Dec 05, 2016 05:39
[2016-12-05 05:52] LABS: ABG BASE EXCESS -23.4; ABG PCO2 23.1 mmHg (35.0-45.0)
[2016-12-05 05:53] LABS: ABG ALLEN TEST POSITIVE
[2016-12-05 05:57] LABS: APPEARANCE,URINE CLEAR; KETONES,URINE 4+ (NEGATIVE); LEUKOCYTE ESTERASE ,URINE NEGATIVE (NEGATIVE); NITRITE,URINE NEGATIVE (NEGATIVE); PH,URINE 5 (4.5-8.0); UROBILINOGEN,URINE NORMAL MG/DL (0.0-1.0)
[2016-12-05 06:01] LABS: MEAN CORPUSCULAR HGB CONC 30.4 G/DL (32.0-36.0); MEAN CORPUSCULAR VOLUME 99 FL (80-99); MEAN PLATELET VOLUME 6.3 FL (6.5-10.1); PLATELET COUNT 377 K/UL (150-450); RED BLOOD COUNT 3.36 M/UL (4.20-5.40); RED CELL DISTRIBUTION WIDTH 16.5 % (11.6-14.8); WHITE BLOOD COUNT 12.7 K/UL (4.8-10.8)
[2016-12-05 06:06] LABS: ALBUMIN/GLOBULIN RATIO 1.1 (1.0-2.7); CALCIUM 8.9 mg/dL (8.6-10.2); CREATININE 2.2 mg/dL (0.5-0.9); GLOMERULAR FILTRATION RATE 29.2 mL/min (>60); POTASSIUM 5.6 mEQ/L (3.4-4.9); PROTEIN,URINE NEGATIVE (NEGATIVE); TOTAL PROTEIN 7.2 g/dL (6.6-8.7)
[2016-12-05] MEDS ORDERED: Nitroglycerin Subl 0.4mg tab (Bottle Of 25) SL PRN (07:00)
[2016-12-05] MEDS ORDERED: Morphine Sulfate 4mg/ml Inj IVP PRN (07:00)
[2016-12-05] MEDS ORDERED: Miralax 17gm pkt ORAL PRN (07:00)
[2016-12-05] MEDS ORDERED: LORazepam Inj 2mg/ml 1ml IV PRN (07:00)
[2016-12-05] MEDS ORDERED: DuoNeb 0.5-3(2.5)mg/3ml neb HHN PRN (07:00)
[2016-12-05] MEDS ORDERED: Lyrica 75mg cap ORAL SCH (09:00)
[2016-12-05 10:48] LABS: CALCIUM 8.4 mg/dL (8.6-10.2); CREATININE 2.4 mg/dL (0.5-0.9); GLOMERULAR FILTRATION RATE 26.4 mL/min (>60); POTASSIUM 4.6 mEQ/L (3.4-4.9)
[2016-12-05] MEDS ORDERED: Potassium Chloride 10 MEQ in D5 1/2NS 1,000 ML IV SCH ×2 (11:00→18:30)
[2016-12-05] MEDS: Heparin 5000 units/ml inj SUBQ SCH ×2 (11:37→21:05)
--- NOTE | 2016-12-05 12:05 | History & Physical ---
History and Physical History & Physicial Dictated for Int Med-Dr Hardin no. [id number] ICU. CHRISTOS JACOBSEN Dec 05, 2016 12:05
[2016-12-05] MEDS: Potassium Chloride 10 MEQ in D5 1/2NS 1,000 ML IV SCH ×2 (12:10→18:08)
[2016-12-05] MEDS: Lyrica 50mg cap ORAL SCH ×2 (12:45→18:13)
--- NOTE | 2016-12-05 15:02 | Diagnostic Imaging Report ---
Indication: COUGH Technique: One view of the chest Comparison: 08/30/2016 Findings: The heart is mildly enlarged. There is equivocal minimal moderate venous congestion. No focal airspace consolidation. No effusions. Impression: Cardiomegaly. Equivocal minimal pulmonary venous congestion that correlate with clinical findings Negative for infiltrate
[2016-12-05 17:21] LABS: CALCIUM 7.9 mg/dL (8.6-10.2); CREATININE 1.9 mg/dL (0.5-0.9); GLOMERULAR FILTRATION RATE 34.7 mL/min (>60)
--- NOTE | 2016-12-05 17:30 | History and Physical Report ---
DATE OF ADMISSION: 12/05/2016 CHIEF COMPLAINT: The patient is a 46-year-old female with history of insulin-dependent diabetes, who presents with chief complaint of not feeling well. HISTORY OF PRESENT ILLNESS: The patient states she ran out of her medications two days ago. The patient states she has insulin, however, "I have not been using that ". The patient also ran out of Cymbalta. Yesterday, the patient began to experience nausea and vomiting. The patient states her blood sugars were out of control. Blood sugars were running in the 400 to 500 range. The patient presented to [place] emergency room. The patient is admitted for diabetic ketoacidosis. PAST MEDICAL HISTORY: Significant for 1. Type 1 diabetes. 2. Diabetic ketoacidosis, last hospitalization at [place] was July 2016. 3. Hypertension. 4. Major depression. 5. Diabetic gastroparesis. 6. Gastroesophageal reflux disease. PAST SURGICAL HISTORY: The patient denies. CURRENT MEDICATIONS: 1. Amlodipine 10 mg one tablet p.o. daily. 2. Clonidine 0.1 mg p.o. q.4 h. p.r.n. 3. Cymbalta 20 mg one tablet p.o. daily. 4. Levemir 26 units subcutaneously before meals, breakfast. 5. Humalog sliding scale. 6. Meloxicam 15 mg one tablet p.o. daily. 7. Zofran 4 mg one tablet p.o. q.6 h. p.r.n. 8. Protonix 40 mg one tablet p.o. daily. 9. Lyrica 50 mg one tablet p.o. twice daily. 10. Carafate 1 g p.o. four times a day. 11. Diovan 160 mg one tablet p.o. twice daily. ALLERGIES: No known drug allergies. SOCIAL HISTORY: The patient is single and lives with her aunt. 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 The patient denies tobacco or alcohol use. REVIEW OF SYSTEMS: Constitutional: The patient denies weight loss or weight gain. The patient denies fevers or chills. HEENT: The patient denies ear or throat pain. The patient denies headache. Cardiovascular: The patient denies palpitations or chest pain. Chest: The patient denies wheeze or shortness of breath. Abdominal: The patient complains of nausea and vomiting as above. The patient denies constipation or diarrhea. Genitourinary: The patient denies dysuria or increased frequency of urination. Neuromuscular: The patient denies seizures or generalized weakness. PHYSICAL EXAMINATION: VITAL SIGNS: Temperature 97.1 degrees, respirations 15, pulse 100, and blood pressure 109/46. GENERAL: The patient is a well-developed and well-nourished female, in moderate distress. HEENT: Eyes, pupils are equal and responsive to light and accommodation. Extraocular movements are intact. NECK: Supple without lymphadenopathy. CHEST: Lungs are clear to auscultation bilaterally without wheezes or rales. CARDIOVASCULAR: Regular rate. S1 and S2 are normal without murmurs, rubs, or gallops. ABDOMEN: Soft, diffusely tender with positive bowel sounds. No evidence of hepatosplenomegaly. Currently, no rebound or guarding noted. EXTREMITIES: Negative for clubbing, cyanosis, or edema. NEUROLOGIC: Cranial nerves II through XII grossly intact without focal deficits. LABORATORY AND DIAGNOSTIC DATA: WBC 12.7, hemoglobin 10.1, hematocrit 33.1, and platelets 377,000. Sodium 135, potassium 5.6, chloride 84, CO2 5, BUN 28, creatinine 2.2 and glucose 799. Anion gap 45. Urinalysis showed 4+ glucose and 4+ ketones. ASSESSMENT: This is a 46-year-old female, 1. Diabetic ketoacidosis. 2. Diabetes type 1. 3. Hypertension. 4. Major depression. 5. Diabetic gastroparesis. 6. Gastroesophageal reflux disease. TREATMENT: 1. Diabetic ketoacidosis/diabetes type 1. An Endocrinology consultation has been obtained with Dr. Hayes. The patient will be admitted to the intensive care unit. The patient is being treated aggressively with intravenous fluids. We will follow recommendation of Endocrinology. 2. Hypertension. Continue Diovan as above. 3. Major depression. Continue Cymbalta as above. 4. Diabetic gastroparesis. 5. Gastroesophageal reflux. Continue Protonix as above. Anastacio Wright M.D. DR: BUCKY JOB#: [id number] CC:
[2016-12-05] MEDS: D51/2NS 1000ml IV SCH (19:34)
[2016-12-05] MEDS: Insulin Rate Change 1 Each MISC PRN ×5 (20:24→23:59)
--- NOTE | 2016-12-05 22:01 | Pulmonolgy Critical Care Note ---
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 Discussed with: nurses, consultants Critical Care - Objective Last 24 Hour Vital Signs Date Time Temp Pulse Resp B/P Pulse Ox O2 Delivery O2 Flow Rate FiO2 12/05/16 20:00 108 12/05/16 19:30 102 12 114/41 97 Room Air 12/05/16 19:30 97.5 97 11 114/41 94 Room Air 12/05/16 18:43 97.3 95 10 112/35 95 Room Air 12/05/16 18:00 96.7 94 13 109/48 99 Room Air 12/05/16 16:30 97.3 86 15 132/68 98 Room Air 12/05/16 15:00 97.9 87 11 107/42 95 Room Air 12/05/16 13:35 98.1 93 13 138/65 97 Room Air 12/05/16 12:00 97.2 96 10 152/76 97 12/05/16 11:38 92 138/70 12/05/16 10:55 97.1 94 10 131/66 99 Room Air 12/05/16 09:45 97.0 99 17 123/59 100 Room Air 12/05/16 08:26 97.1 100 15 109/46 100 Room Air 12/05/16 08:25 100 15 Room Air 12/05/16 07:15 97.2 105 18 108/42 99 Room Air 12/05/16 06:19 99.1 12/05/16 05:15 99.1 120 16 149/71 97 Room Air 12/05/16 05:04 98.2 120 16 149/71 97 Room Air Status: awake Condition: critical HEENT: atraumatic Neck: full ROM Lungs: clear, chest wall tender Heart: HR/BP stable Abdomen: soft, non-tender, active bowel sounds Extremities: no C/C/E, edema Accucheck: 341 Critical Care - Subjective ROS Limited/Unobtainable: Yes ICU Day: 1 Interval Events: pt with hx of DM presented with generalized weakness, was found to be in DKA, started on insulin drip in ER and transferred to ICU. Sputum Amount: None Fluids: de5 / NS 125 cc.hour Drips: insuline I&O: Intake and Output 12/04/16 12/05/16 19:00 07:00 Intake Total 1000 ml Balance 1000 ml Intake IV Total 1000 ml # Voids 1 CXR: no acute findings VANESSA SAGASTUME Dec 05, 2016 22:01
[2016-12-06] VITALS (15 sets, daily range): BP systolic 116–157; BP diastolic 59–81
[2016-12-06] MEDS: Insulin Rate Change 1 Each MISC PRN ×4 (01:03→05:57)
[2016-12-06] MEDS: D51/2NS 1000ml IV SCH (03:20)
[2016-12-06 06:12] LABS: CALCIUM 8.1 mg/dL (8.6-10.2); CREATININE 1.7 mg/dL (0.5-0.9); GLOMERULAR FILTRATION RATE 39.4 mL/min (>60); POTASSIUM 3.9 mEQ/L (3.4-4.9)
[2016-12-06 06:16] LABS: PROTHROMBIN TIME 10.6 SEC (9.30-11.50)
[2016-12-06 07:00] LABS: BILIRUBIN,DIRECT 0.1 mg/dL (0.1-0.3); PHOSPHORUS 1.5 mg/dL (2.5-4.8); TOTAL PROTEIN 5.9 g/dL (6.6-8.7)
--- NOTE | 2016-12-06 08:31 | Cardiology Report ---
APPROVED REPORT EKG Measurement Heart [id number] Sinus tachycardia Abnormal ECG
[2016-12-06] MEDS: Lyrica 50mg cap ORAL SCH ×2 (08:44→18:13)
[2016-12-06] MEDS: Heparin 5000 units/ml inj SUBQ SCH ×2 (08:45→21:42)
[2016-12-06] MEDS ORDERED: Levemir Flexpen SUBQ SCH (11:00)
--- NOTE | 2016-12-06 11:06 | Pulmonolgy Critical Care Note ---
Critical Care - Asmt/Plan Problems: (1) Diabetic ketoacidosis, type I (2) ARF (acute renal failure) (3) Noncompliance (4) Urinary retention Respiratory: monitor respiratory rate, adjust FIO2 Cardiac: continue to monitor HR/BP Renal: F/U I&O Infectious Disease: check cultures Gastrointestinal: continue feedings/current rate Endocrine: monitor blood sugar, d/c insulin drip, continue sliding scale insulin, other - pt used 60 units of insuline in the last 24 hours, will give half of it in long acting form Neurologic: PRN Ativan, PRN Morphine Affect: PRN ativan Discussed with: nurses, consultants, renal case managerpersonnel manager - Objective Last 24 Hour Vital Signs Date Time Temp Pulse Resp B/P Pulse Ox O2 Delivery O2 Flow Rate FiO2 12/06/16 10:00 80 10 125/59 99 Nasal Cannula 1.0 12/06/16 09:00 81 10 143/72 99 Nasal Cannula 1.0 12/06/16 08:43 82 139/70 12/06/16 08:00 99.0 83 10 139/70 99 Nasal Cannula 1.0 12/06/16 08:00 84 12/06/16 07:00 81 10 142/71 99 Room Air 12/06/16 06:54 100 Nasal Cannula 1.0 24 12/06/16 06:54 Nasal Cannula 1.0 24 12/06/16 06:54 84 24 Room Air 12/06/16 06:00 85 10 157/81 97 Room Air 12/06/16 05:00 84 10 137/75 97 Room Air 12/06/16 04:30 83 12/06/16 04:00 98.5 89 14 144/73 96 Room Air 12/06/16 03:00 89 10 139/65 96 Room Air 12/06/16 02:00 87 10 126/70 98 Room Air 12/06/16 01:00 86 13 134/68 98 Room Air 12/06/16 00:30 Nasal Cannula 2.0 28 12/06/16 00:30 97 Nasal Cannula 2.0 28 12/06/16 00:00 97.9 89 13 120/62 96 Room Air 12/06/16 00:00 87 12/05/16 23:00 89 11 112/51 93 Room Air 12/05/16 22:00 91 12 112/51 95 Room Air 12/05/16 21:00 105 12 121/46 94 Room Air 12/05/16 20:00 98.3 106 12 136/55 94 Room Air 12/05/16 20:00 108 12/05/16 19:30 102 12 114/41 97 Room Air 12/05/16 19:30 97.5 97 11 114/41 94 Room Air 12/05/16 18:43 97.3 95 10 112/35 95 Room Air 12/05/16 18:00 96.7 94 13 109/48 99 Room Air 12/05/16 16:30 97.3 86 15 132/68 98 Room Air 12/05/16 15:00 97.9 87 11 107/42 95 Room Air 12/05/16 13:35 98.1 93 13 138/65 97 Room Air 12/05/16 12:00 97.2 96 10 152/76 97 12/05/16 11:38 92 138/70 Status: awake Condition: improving HEENT: atraumatic Neck: full ROM Abdomen: soft, non-tender Extremities: no C/C/E, edema Decubiti: location Accucheck: 108 Critical Care - Subjective ROS Limited/Unobtainable: No ICU Day: 2 Interval Events: feeling better FI02: 24 Sputum Amount: None Fluids: 1/2 NS 125 cc.hour I&O: Intake and Output 12/05/16 12/06/16 19:00 07:00 Intake Total 2230 ml 1727.54 ml Output Total 600 ml 550 ml Balance 1630 ml 1177.54 ml Intake IV Total 2230 ml 1727.54 ml Output Urine Total 600 ml 550 ml # Voids 2 Labs: Laboratory Tests Test 12/05/16 16:41 12/06/16 04:05 Sodium Level 142 mEQ/L (135-145) 142 mEQ/L (135-145) Potassium Level 4.0 mEQ/L (3.4-4.9) 3.9 mEQ/L (3.4-4.9) Chloride Level 100 mEQ/L (98-107) 101 mEQ/L (98-107) Carbon Dioxide Level 19 mEQ/L (20-30) L 25 mEQ/L (20-30) Anion Gap 23 (5-15) H 16 (5-15) H Blood Urea Nitrogen 23 mg/dL (7-23) 20 mg/dL (7-23) Creatinine 1.9 mg/dL (0.5-0.9) H 1.7 mg/dL (0.5-0.9) H Estimat Glomerular Filtration Rate 34.7 mL/min (>60) 39.4 mL/min (>60) Glucose Level 126 mg/dL (74-106) H 98 mg/dL (74-106) Calcium Level 7.9 mg/dL (8.6-10.2) L 8.1 mg/dL (8.6-10.2) L Prothrombin Time 10.6 SEC (9.30-11.50) Prothromb Time International Ratio 1.0 (0.9-1.1) Activated Partial Thromboplast Time 24 SEC (23-33) Phosphorus Level 1.5 mg/dL (2.5-4.8) L Total Bilirubin 0.2 mg/dL (0.0-1.2) Direct Bilirubin 0.1 mg/dL (0.1-0.3) Aspartate Amino Transf (AST/SGOT) 17 U/L (5-40) Alanine Aminotransferase (ALT/SGPT) 19 U/L (3-33) Alkaline Phosphatase 78 U/L (35-104) Total Protein 5.9 g/dL (6.6-8.7) L Albumin 3.3 g/dL (3.5-5.2) VANESSA DE DIOS Dec 06, 2016 11:06
[2016-12-06] MEDS ORDERED: NovoLOG Insulin Flexpen SUBQ SCH (11:30)
[2016-12-06] MEDS ORDERED: Nitroglycerin Subl 0.4mg tab (Bottle Of 25) SL PRN (11:50)
[2016-12-06] MEDS ORDERED: Sodium Phosphate 30 MM in NS 275 ML IV ONE ×4 (12:00)
[2016-12-06] MEDS ORDERED: LORazepam Inj 2mg/ml 1ml IV PRN (13:00)
[2016-12-06] MEDS: D5 1/2NS 1,000 ML IV SCH ×2 (13:34→22:16)
--- NOTE | 2016-12-06 13:46 | Diagnostic Imaging Report ---
APPROVED REPORT CPT Code: 36019 Present Symptoms Shortness of breath BILATERAL: Imaging reveals a patent deep venous system bilaterally. There is no evidence of thrombus within the femoral, popliteal or tibial segments. The greater saphenous veins are also within normal limits. Doppler indicates normal spontaneous flow within these segments.
[2016-12-06] MEDS: Levemir Flexpen SUBQ SCH ×2 (14:08→16:55)
[2016-12-06] MEDS: NovoLOG Insulin Flexpen SUBQ SCH ×3 (14:09→21:43)
[2016-12-06] MEDS: Morphine Sulfate 4mg/ml Inj IVP PRN ×2 (14:14→21:44)
[2016-12-06] MEDS ORDERED: DuoNeb 0.5-3(2.5)mg/3ml neb HHN PRN (15:00)
--- NOTE | 2016-12-06 15:34 | Internal Med Progress Note ---
Subjective Date of Service: Dec 06, 2016 Physician Name Anastacio Jacobsen Attending Physician Aries Hardin MD Current Medications Medications (Trade) Dose Ordered Sig/Lizbeth Route PRN Reason Start Time Stop Time Status Last Admin Dose Admin Acetaminophen (Tylenol) 650 mg Q4H PRN ORAL Fever 12/06/16 15:00 01/05/17 14:59 Albuterol/ Ipratropium (DuoNeb 0.5-3(2.5)mg/3ml) 3 ml Q4H PRN HHN Shortness of Breath 12/06/16 15:00 12/11/16 14:59 Amlodipine Besylate (Norvasc) 10 mg DAILY ORAL 12/07/16 09:00 01/06/17 08:59 Dextrose (Dextrose 50%) STAT PRN IV Hypoglycemia 12/07/16 07:00 01/06/17 06:59 Dextrose/Sodium Chloride (D5 0.45% NS) 1,000 ml @ 125 mls/hr Q8H IV 12/06/16 13:00 01/05/17 12:59 12/06/16 13:34 Duloxetine HCl (Cymbalta) 20 mg DAILY ORAL 12/07/16 09:00 01/06/17 08:59 Heparin Sodium (Porcine) (Heparin 5000 units/ml) 5,000 units EVERY 12 HOURS SUBQ 12/06/16 21:00 01/05/17 20:59 Insulin Aspart (NovoLOG) BEFORE MEALS AND HS SUBQ 12/06/16 13:00 01/05/17 12:59 12/06/16 14:09 Insulin Detemir (Levemir) 15 units EVERY 12 HOURS SUBQ 12/06/16 13:00 01/05/17 12:59 12/06/16 14:08 Lorazepam (Ativan 2mg/ml 1ml) 2 mg Q2H PRN IV agitation 12/06/16 13:00 12/13/16 12:59 Morphine Sulfate (Morphine Sulfate) 4 mg Q4H PRN IVP Severe Pain (Pain Scale 7-10) 12/06/16 15:00 12/13/16 14:59 12/06/16 14:14 Nitroglycerin (Ntg) 0.4 mg Q5M PRN SL Prn Chest Pain 12/06/16 11:50 01/05/17 11:49 Ondansetron HCl (Zofran) 4 mg Q6H PRN IVP Nausea & Vomiting 12/06/16 13:00 01/05/17 12:59 Polyethylene Glycol (Miralax) 17 gm DAILYPRN PRN ORAL Constipation 12/07/16 07:00 01/06/17 06:59 Pregabalin (Lyrica) 50 mg BID ORAL 12/06/16 18:00 01/05/17 17:59 Sodium Phosphate 30 mm/Sodium Chloride 285 ml @ 47.5 mls/hr ONCE ONCE IV 12/06/16 12:00 12/06/16 17:59 12/06/16 13:10 Allergies: Coded Allergies: No Known Allergies (Unverified , 04/24/14) ROS Limited/Unobtainable: No Constitutional: Reports: no symptoms HEENT: Reports: no symptoms Cardiovascular: Reports: no symptoms Respiratory: Reports: no symptoms Gastrointestinal/Abdominal: Reports: no symptoms Genitourinary: Reports: no symptoms Neurologic/Psychiatric: Reports: no symptoms Subjective 46 YO F admited with diabetic ketoacidosis. ICU. Cover for Int Med-Dr Hardin. Objective Last Vital Signs Date Time Temp Pulse Resp B/P Pulse Ox O2 Delivery O2 Flow Rate FiO2 12/06/16 12:00 96 12/06/16 11:00 15 141/64 99 Nasal Cannula 1.0 12/06/16 08:00 99.0 12/06/16 06:54 24 General Appearance: WD/WN, no apparent distress, alert EENT: PERRL/EOMI, normal ENT inspection Neck: non-tender, normal alignment, supple, normal inspection Cardiovascular: normal peripheral pulses, normal rate, regular rhythm, no gallop/murmur, no JVD Respiratory/Chest: chest wall non-tender, lungs clear, normal breath sounds, no respiratory distress, no accessory muscle use Abdomen: normal bowel sounds, non tender, soft, no organomegaly, no mass Extremities: normal range of motion 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, no motor/sensory deficits Skin: normal pigmentation, warm/dry Laboratory Tests Test 12/05/16 16:41 12/06/16 04:05 Sodium Level 142 mEQ/L (135-145) 142 mEQ/L (135-145) Potassium Level 4.0 mEQ/L (3.4-4.9) 3.9 mEQ/L (3.4-4.9) Chloride Level 100 mEQ/L (98-107) 101 mEQ/L (98-107) Carbon Dioxide Level 19 mEQ/L (20-30) L 25 mEQ/L (20-30) Anion Gap 23 (5-15) H 16 (5-15) H Blood Urea Nitrogen 23 mg/dL (7-23) 20 mg/dL (7-23) Creatinine 1.9 mg/dL (0.5-0.9) H 1.7 mg/dL (0.5-0.9) H Estimat Glomerular Filtration Rate 34.7 mL/min (>60) 39.4 mL/min (>60) Glucose Level 126 mg/dL (74-106) H 98 mg/dL (74-106) Calcium Level 7.9 mg/dL (8.6-10.2) L 8.1 mg/dL (8.6-10.2) L Prothrombin Time 10.6 SEC (9.30-11.50) Prothromb Time International Ratio 1.0 (0.9-1.1) Activated Partial Thromboplast Time 24 SEC (23-33) Phosphorus Level 1.5 mg/dL (2.5-4.8) L Total Bilirubin 0.2 mg/dL (0.0-1.2) Direct Bilirubin 0.1 mg/dL (0.1-0.3) Aspartate Amino Transf (AST/SGOT) 17 U/L (5-40) Alanine Aminotransferase (ALT/SGPT) 19 U/L (3-33) Alkaline Phosphatase 78 U/L (35-104) Total Protein 5.9 g/dL (6.6-8.7) L Albumin 3.3 g/dL (3.5-5.2) L Intake and Output 12/05/16 12/06/16 19:00 07:00 Intake Total 2230 ml 1727.54 ml Output Total 600 ml 550 ml Balance 1630 ml 1177.54 ml Intake IV Total 2230 ml 1727.54 ml Output Urine Total 600 ml 550 ml # Voids 2 Assessment/Plan Problem List: (1) Diabetic ketoacidosis, type I Assessment & Plan: Await endocrinology consult. Continue levemir and novolog. Patient will require insulin pump instruction. (2) Diabetes type 1, uncontrolled Assessment & Plan: Await endocrinology consult. Continue levemir and novolog. (3) HTN (hypertension) Assessment & Plan: Cont norvasc (4) Depression Assessment & Plan: continue cymbalta. (5) Diabetic gastroparesis (6) GERD (gastroesophageal reflux disease) Status: not improved ANASTACIO JACOBSEN Dec 06, 2016 15:34
--- NOTE | 2016-12-07 03:30 | Consultation ---
DATE OF CONSULTATION: 12/06/2016 ENDOCRINOLOGY CONSULTATION CONSULTING PHYSICIAN: Judd Hayes M.D. REFERRING PHYSICIAN: Aries Hardin M.D. REASON FOR CONSULTATION: Uncontrolled diabetes, DKA. HISTORY OF PRESENT ILLNESS: The patient is a 46-year-old female, known to me from previous admissions to [facility], with DKA as well as a couple of visits that I had with her as an outpatient for the management of type 1 diabetes. The patient was admitted to the hospital with uncontrolled diabetes due to noncompliance with insulin and she was found to be in diabetic ketoacidosis, was admitted to the ICU, treated with IV fluids and IV insulin, and then was transferred to the floor to manage diabetes. PAST MEDICAL HISTORY: 1. Type 1 diabetes. 2. DKA. 3. Hypertension. 4. Depression. 5. Gastroparesis. 6. GERD. PAST SURGICAL HISTORY: None. MEDICATIONS: Reviewed and reconciled. ALLERGIES TO MEDICATIONS: None. SOCIAL HISTORY: The patient is single. Lives with her aunt. 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 Nonsmoker. No smoking, alcohol, or drug use. REVIEW OF SYSTEMS: As per HPI. PHYSICAL EXAMINATION: VITAL SIGNS: Blood pressure is 100/60, pulse of 90, and temperature of 98.2 degrees, and respiratory rate of 18. HEENT: Pupils are reactive to light and accommodation. Sclerae is anicteric. NECK: No JVD. No thyromegaly. No bruit. LUNGS: Clear. HEART: Regular rate and rhythm. ABDOMEN: Positive bowel sounds. Soft. EXTREMITIES: No clubbing, cyanosis, or edema. LABORATORY DATA: WBC 12.7, hemoglobin 10, hematocrit 32.1, and platelets of 277,000. Sodium 142, potassium 3.9, chloride 101, bicarbonate 25, BUN 20, and creatinine 1.7. A1c of 10.8. DIAGNOSES: 1. Diabetic ketoacidosis secondary to noncompliance with insulin. 2. Type 1 diabetes, out of control. 3. PERLA improved. 4. Possible diabetic gastroparesis. PLAN: 1. Continue Levemir 15 units b.i.d. 2. Add NovoLog 5 units before each meal. 3. Continue NovoLog sliding scale. 4. Continue IV hydration with normal saline at 125 mL per hour. 5. Monitor the electrolytes. I will follow the patient during the hospital stay for the management of diabetes. Thank you, Dr. Hardin, for the courtesy of this consultation. Judd Hayes M.D. DR: MERVAT JOB#: [id number] CC: KRISTY
[2016-12-07 03:46] VITALS: BP 122/73
[2016-12-07] MEDS: D5 1/2NS 1,000 ML IV SCH ×2 (05:00→06:42)
[2016-12-07] MEDS: NovoLOG Insulin Flexpen SUBQ SCH ×4 (06:08→12:20)
[2016-12-07] MEDS ORDERED: Insulin Rate Change 1 Each MISC PRN (07:00)
[2016-12-07] MEDS ORDERED: Miralax 17gm pkt ORAL PRN (07:00)
[2016-12-07 07:27] LABS: EOSINOPHILS % (AUTO) 1.6 % (0.0-3.0); LYMPHOCYTES % (AUTO) 49.9 % (20.0-45.0); MEAN CORPUSCULAR HEMOGLOBIN 30.3 PG (27.0-31.0); MEAN CORPUSCULAR HGB CONC 32.2 G/DL (32.0-36.0); MEAN CORPUSCULAR VOLUME 94 FL (80-99); MEAN PLATELET VOLUME 6.6 FL (6.5-10.1); MONOCYTES % (AUTO) 4.7 % (1.0-10.0); NEUTROPHILS % (AUTO) 42.7 % (45.0-75.0); PLATELET COUNT 256 K/UL (150-450); RED BLOOD COUNT 3.02 M/UL (4.20-5.40); RED CELL DISTRIBUTION WIDTH 15.1 % (11.6-14.8); WHITE BLOOD COUNT 5.5 K/UL (4.8-10.8)
[2016-12-07 07:54] LABS: ALANINE AMINOTRANSFERASE 26 U/L (3-33); ANION GAP 13 (5-15); ASPARTATE AMINO TRANSFERASE 46 U/L (5-40); CALCIUM 7.8 mg/dL (8.6-10.2); CARBON DIOXIDE 27 mEQ/L (20-30); CHLORIDE 100 mEQ/L (98-107); CREATININE 1.5 mg/dL (0.5-0.9); GLOMERULAR FILTRATION RATE 45.5 mL/min (>60); MAGNESIUM 1.7 mg/dL (1.7-2.5); POTASSIUM 3.7 mEQ/L (3.4-4.9); SODIUM 140 mEQ/L (135-145)
[2016-12-07 07:55] LABS: ALBUMIN/GLOBULIN RATIO 1.3 (1.0-2.7); HEMOLYSIS 2
[2016-12-07 08:30] VITALS: BP 128/68
[2016-12-07 09:34] LABS: ABG ALLEN TEST POSITIVE; ABG BASE EXCESS 0.4; ABG PCO2 44.5 mmHg (35.0-45.0)
[2016-12-07] MEDS: Lyrica 50mg cap ORAL SCH (09:48)
[2016-12-07] MEDS: Levemir Flexpen SUBQ SCH (09:49)
[2016-12-07] MEDS: Heparin 5000 units/ml inj SUBQ SCH (09:49)
[2016-12-07] MEDS ORDERED: D5 1/2NS 1000ml IV ONE ×2 (09:59→10:27)
--- NOTE | 2016-12-07 11:01 | Diagnostic Imaging Report ---
Indication: DYSPNEA Technique: One view of the chest Comparison: 617 Findings: Stable to slightly improved interstitial prominence. Heart size is borderline enlarged. No new infiltrates Impression: Borderline interstitial congestive changes, slightly improved over 2 days if real.
--- NOTE | 2016-12-07 12:13 | Pulmonology Progress Note ---
Assessment/Plan Problems: (1) Diabetic ketoacidosis, type I (2) ARF (acute renal failure) (3) Vomiting (4) HTN (hypertension) Assessment/Plan dka resolved pt refusing IV will dc home with close f/u as outpatient Subjective ROS Limited/Unobtainable: No Constitutional: Reports: no symptoms HEENT: Repors: no symptoms Respiratory: Reports: no symptoms Cardiovascular: Reports: no symptoms Allergies: Coded Allergies: No Known Allergies (Unverified , 04/24/14) Objective Last 24 Hour Vital Signs Date Time Temp Pulse Resp B/P Pulse Ox O2 Delivery O2 Flow Rate FiO2 12/07/16 09:47 83 128/68 12/07/16 08:30 97.7 83 18 128/68 93 Room Air 12/07/16 07:55 91 12/07/16 06:43 85 20 Room Air 12/07/16 06:43 Room Air 12/07/16 06:43 94 Room Air 12/07/16 04:00 88 12/07/16 03:46 98.7 80 18 122/73 94 Room Air 12/07/16 00:00 84 12/06/16 23:50 98.3 83 19 128/72 92 Room Air 12/06/16 20:22 98.5 84 18 116/65 93 Room Air 12/06/16 20:00 83 12/06/16 19:23 Nasal Cannula 2.0 28 12/06/16 19:23 97 Nasal Cannula 2.0 28 12/06/16 19:23 83 20 Nasal Cannula 2.0 28 12/06/16 16:00 99 18 135/65 Nasal Cannula 2.0 96 12/06/16 16:00 94 Intake and Output 12/06/16 12/07/16 19:00 07:00 Intake Total 853.791 ml 1375 ml Output Total 175 ml 300 ml Balance 678.791 ml 1075 ml Intake IV Total 853.791 ml 1375 ml Output Urine Total 175 ml 300 ml General Appearance: WD/WN HEENT: normocephalic, atraumatic Respiratory/Chest: chest wall non-tender, lungs clear Cardiovascular: normal peripheral pulses, normal rate Abdomen: normal bowel sounds, soft, non tender Extremities: no cyanosis Microbiology Date/Time Source Procedure Growth Status 12/05/16 10:11 Nasal Nares MRSA Culture - Final NO METHICILLIN RESISTANT STAPH AUREUS... Complete 12/05/16 10:11 Rectum VRE Culture - Final NO VANCOMYCIN RESISTANT ENTEROCOCCUS ... Complete Laboratory Tests 12/07/16 06:50: White Blood Count 5.5, Red Blood Count 3.02L, Hemoglobin 9.1L, Hematocrit 28.4L , Mean Corpuscular Volume 94, Mean Corpuscular Hemoglobin 30.3, Mean Corpuscular Hemoglobin Concent 32.2, Red Cell Distribution Width 15.1H, Platelet Count 256, Mean Platelet Volume 6.6, Neutrophils (%) (Auto) 42.7L, Lymphocytes (%) (Auto) 49.9H, Monocytes (%) (Auto) 4.7, Eosinophils (%) (Auto) 1.6, Basophils (%) (Auto) 1.0, Sodium Level 140, Potassium Level 3.7, Chloride Level 100, Carbon Dioxide Level 27, Anion Gap 13, Blood Urea Nitrogen 11, Creatinine 1.5H, Estimat Glomerular Filtration Rate 45.5, Glucose Level 75, Calcium Level 7.8L, Phosphorus Level 2.0L, Magnesium Level 1.7, Total Bilirubin < 0.2, Aspartate Amino Transf (AST/SGOT) 46H, Alanine Aminotransferase (ALT/SGPT ) 26, Alkaline Phosphatase 83, Total Protein 6.0L, Albumin 3.4L, Globulin 2.6, Albumin/Globulin Ratio 1.3 12/07/16 09:15: Arterial Blood pH 7.380, Arterial Blood Partial Pressure CO2 44.5, Arterial Blood Partial Pressure O2 60.3L, Arterial Blood HCO3 25.7, Arterial Blood Oxygen Saturation 92.1, Arterial Blood Base Excess 0.4, Pierre Test Positive Current Medications Medications (Trade) Dose Ordered Sig/Lizbeth Route PRN Reason Start Time Stop Time Status Last Admin Dose Admin Acetaminophen (Tylenol) 650 mg Q4H PRN ORAL Mild Pain/Temp > 100.5 12/07/16 15:00 01/06/17 14:59 Albuterol/ Ipratropium (DuoNeb 0.5-3(2.5)mg/3ml) 3 ml Q4H PRN HHN Shortness of Breath 12/06/16 15:00 12/11/16 14:59 Amlodipine Besylate (Norvasc) 10 mg DAILY ORAL 12/07/16 09:00 01/06/17 08:59 12/07/16 09:47 Dextrose (Dextrose 50%) STAT PRN IV Hypoglycemia 12/06/16 20:45 01/05/17 20:44 Dextrose (Dextrose 50%) STAT PRN IV Hypoglycemia 12/07/16 07:00 01/06/17 06:59 Dextrose/Sodium Chloride (D5 0.45% NS) 1,000 ml @ 125 mls/hr Q8H IV 12/06/16 13:00 01/05/17 12:59 12/07/16 06:42 Duloxetine HCl (Cymbalta) 20 mg DAILY ORAL 12/07/16 09:00 01/06/17 08:59 Heparin Sodium (Porcine) (Heparin 5000 units/ml) 5,000 units EVERY 12 HOURS SUBQ 12/06/16 21:00 01/05/17 20:59 12/07/16 09:49 Insulin Aspart (NovoLOG) BEFORE MEALS AND HS SUBQ 12/06/16 13:00 01/05/17 12:59 12/06/16 21:43 Insulin Aspart (NovoLOG) 5 units NOVOTIAC SUBQ 12/07/16 06:30 01/06/17 06:29 Insulin Detemir (Levemir) 15 units EVERY 12 HOURS SUBQ 12/06/16 13:00 01/05/17 12:59 12/07/16 09:49 Lorazepam (Ativan 2mg/ml 1ml) 2 mg Q2H PRN IV agitation 12/06/16 13:00 12/13/16 12:59 Morphine Sulfate (Morphine Sulfate) 4 mg Q4H PRN IVP Severe Pain (Pain Scale 7-10) 12/06/16 15:00 12/13/16 14:59 12/06/16 21:44 Nitroglycerin (Ntg) 0.4 mg Q5M PRN SL Prn Chest Pain 12/06/16 11:50 01/05/17 11:49 Ondansetron HCl (Zofran) 4 mg Q6H PRN IVP Nausea & Vomiting 12/06/16 13:00 01/05/17 12:59 Polyethylene Glycol (Miralax) 17 gm DAILYPRN PRN ORAL Constipation 12/07/16 07:00 01/06/17 06:59 Pregabalin (Lyrica) 50 mg BID ORAL 12/06/16 18:00 01/05/17 17:59 12/07/16 09:48 VANESSA SAGASTUME Dec 07, 2016 12:13
[2016-12-07 12:30] VITALS: BP 149/81
--- NOTE | 2016-12-07 15:38 | Discharge Summary ---
Discharge Summary Hospital Course Date of Admission Dec 05, 2016 at 06:22 Date of Discharge Dec 07, 2016 at 15:30 Admitting Diagnosis DKA HPI Tricia Carpio is a 46 year old female who was admitted on Dec 05, 2016 at 06 :22 for Diabetic ketoacidosis Hospital Course job # [id number] Discharge Discharge Disposition Patient was discharged to Home (01) Discharge Diagnoses: Aries Hardin MD Dec 07, 2016 15:38
[2016-12-07] MEDS ORDERED: Levemir Flexpen SUBQ SCH (21:00)
--- NOTE | 2016-12-08 03:00 | Discharge Summary ---
DATE OF ADMISSION: 12/05/2016 DATE OF DISCHARGE: 12/07/2016 HISTORY AND HOSPITAL COURSE: This is a 46-year-old female with past medical history significant for diabetes type 1, insulin dependent with recurrent DKA in the past, hypertension, major depression, diabetic gastroparesis, prior history of GERD, and chronic renal insufficiency, who was presented to the hospital complained about the running out of her medication for past two days. She was on insulin, however, she ran out of Cymbalta. She has complained about the nausea and vomiting. Shortly after initial evaluation, the patient noted blood glucose level and the patient was admitted to the ICU. After aggressive IV hydration, the patient was counseled with Dr. Judd Hayes from Endocrine and Dr. Chapin Paredes from Pulmonary Critical Care. The patient's status gradually improved and subsequently was discharged home today to be followed up as outpatient. FINAL DIAGNOSES: 1. Diabetes type 1. 2. Diabetic ketoacidosis. 3. Acute kidney injury on chronic kidney disease. 4. Intractable nausea ad vomiting. 5. Hypertension. 6. Shortness of breath. MEDICATION ON DISCHARGE: Continue discharge medication list. ACTIVITY: As tolerated. DIET: Cardiac diet. FOLLOWUP: Advised the patient to follow up in my office within one to two weeks. Aries Hardin M.D. DR: Yevgeniy JOB#: [id number] CC:
== END 2016-12-07 15:30 | disposition home or self-care (01) | DRG 638 ==
LOC: EDBD 05:13 → EMR 05:20 → ICU 06:22 → EDBEDREQ 17:45 → 2E 12-06 12:23
DX: E10.10 Type 1 diabetes mellitus with ketoacidosis without coma (principal); N17.9 Acute kidney failure, unspecified; E10.22 Type 1 diabetes mellitus with diabetic chronic kidney disease; K31.84 Gastroparesis; Z79.4 Long term (current) use of insulin; E10.43 Type 1 diabetes mellitus with diabetic autonomic (poly)neuropathy; I12.9 Hypertensive chronic kidney disease with stage 1 through stage 4 chronic kidney disease, or unspecified chronic kidney disease; N18.9 Chronic kidney disease, unspecified; F32.9 Major depressive disorder, single episode, unspecified; R06.02 Shortness of breath; K21.9 Gastro-esophageal reflux disease without esophagitis; Z91.14 Patient's other noncompliance with medication regimen; R33.9 Retention of urine, unspecified
CPT/HCPCS: 36415; 36600; 71010; 80048; 80053; 80076; 80300; 81003; 81025; 82803; 82962; 83036; 83690; 83735; 84100; 85025; 85610; 85730; 87081; 93005; 93970; 94664; 94760; J1815; J2405; S5561

== ENCOUNTER 2016-12-11 02:25 | Emergency (ER) | payer OTHER ==
[~2016-12-11] VITALS: Ht 160 cm; Wt 59.0 kg
[2016-12-11] MEDS ORDERED: POTASSIUM CHLO10 ME2 PO (02:46)
[2016-12-11] MEDS ORDERED: IBUPROFEN600 MG ORAL (02:46)
[2016-12-11] MEDS ORDERED: CLONIDINE1 EACH TD (02:46)
[2016-12-11] MEDS ORDERED: LEXAPRO20 MG ORAL (02:46)
[2016-12-11] MEDS ORDERED: Famotidine 20 MG/ 2ML VIAL IVP ONE (03:00)
[2016-12-11 04:05] LABS: BASOPHILS % (AUTO) 0.7 % (0.0-2.0); LYMPHOCYTES % (AUTO) 23.1 % (20.0-45.0); MEAN CORPUSCULAR HEMOGLOBIN 29.1 PG (27.0-31.0); MEAN CORPUSCULAR VOLUME 94 FL (80-99); MEAN PLATELET VOLUME 6.7 FL (6.5-10.1); MONOCYTES % (AUTO) 3.9 % (1.0-10.0); NEUTROPHILS % (AUTO) 72.3 % (45.0-75.0); PLATELET COUNT 392 K/UL (150-450); RED BLOOD COUNT 4.02 M/UL (4.20-5.40); RED CELL DISTRIBUTION WIDTH 15.4 % (11.6-14.8); WHITE BLOOD COUNT 8.9 K/UL (4.8-10.8)
--- NOTE | 2016-12-11 04:11 | Emergency Room Report ---
History of Present Illness General Chief Complaint: Nausea, Vomiting, and Diarrhea Source: Patient Present Illness HPI Is a 46-year-old female whom I admitted last week for DKA. She was just discharged. She should discharge is that she has no appetite. Still taking insulin. [place] nauseous but no vomiting. No diarrhea. She said that her blood sugar 600 today. She took her insulin and now is lower. Just doesn't feel well. Been spitting up a lot. Now complaining of reflux pain to her chest also. Allergies: Coded Allergies: No Known Allergies (Unverified , 04/24/14) Patient History Past Medical History: see triage record, old chart reviewed, DM Past Surgical History: other Pertinent Family History: none Social History: Denies: smoking Last Menstrual Period: "I HAVEN'T HAVE ONE IN A WHILE. CONTROL" Now: No Immunizations: other Reviewed Nursing Documentation: PMH: Agreed, PSxH: Agreed Nursing Documentation-PMH Hx Cardiac Problems: Yes - HTN Hx Hypertension: Yes Hx Pacemaker: No Hx Diabetes: Yes Hx Cancer: No Hx Neurological Problems: No Hx Concentration Difficulty: No Review of Systems Eye: Denies: blurred vision, eye pain ENT: Denies: ear pain, nose congestion, throat swelling Respiratory: Denies: cough, shortness of breath Cardiovascular: Denies: chest pain, palpitations Gastrointestinal: Reports: nausea, Denies: abdominal pain, diarrhea, vomiting Musculoskeletal: Denies: back pain, joint pain Skin: Denies: rash Neurological: Denies: headache, numbness Endocrine: Denies: increased thirst, increased urine Hematologic/Lymphatic: Denies: easy bruising All Other Systems: negative except mentioned in HPI Physical Exam Vital Signs Date Time Temp Pulse Resp B/P Pulse Ox O2 Delivery O2 Flow Rate FiO2 12/11/16 02:35 98.4 91 20 134/67 100 Room Air vitals normal Sp02 EP Interpretation: reviewed, normal General Appearance: well appearing, no apparent distress, alert Head: normocephalic, atraumatic Eyes: bilateral eye EOMI, bilateral eye PERRL ENT: hearing grossly normal, normal pharynx Neck: full range of motion, supple, no meningismus Respiratory: chest non-tender, lungs clear, normal breath sounds Cardiovascular #1: regular rate, rhythm, no murmur Gastrointestinal: normal bowel sounds, non tender, no mass, no organomegaly, no bruit, non-distended Musculoskeletal: back normal, gait/station normal, normal range of motion Psychiatric: mood/affect normal Skin: warm/dry Medical Decision Making Diagnostic Impression: Primary Impression: Dehydration Additional Impressions: Nausea, vomiting, and diarrhea Hypoglycemia ER Course Patient presents with dehydration and nausea. Acting bumped up again. Patient hydrated with 2 L of fluid here. No vomiting here. Better now. After hydration we'll discharge home. Pt's blood sugars have been low. She said that she hasn't been eating much. Took her insulin prior to coming in. She has no symptoms from it. She is slowly eating and drinking and blood glucose slowly coming up. Lab Results Impression labs show elevated creatinine Last Vital Signs Date Time Temp Pulse Resp B/P Pulse Ox O2 Delivery O2 Flow Rate FiO2 12/11/16 02:35 98.4 91 20 134/67 100 Room Air Status: improved Disposition: HOME, SELF-CARE Condition: Stable Scripts Ondansetron Odt* (ZOFRAN ODT*) 4 Mg Tab.rapdis 4 MG ORAL Q6H Y for Nausea & Vomiting, #20 TAB 0 Refills Prov: KURT AGUIAR M.D. 12/11/16 Referrals: VANESSA SAGASTUME (PCP) Patient Instructions: DIET, Vomiting or Diarrhea [6yr-Adult] Additional Instructions: Followup your Dr. in 2-3 days. Return if symptom worsen. Check your sugar regularly. KURT AGUIAR M.D. Dec 11, 2016 04:11
[2016-12-11 04:23] LABS: CALCIUM 9.9 mg/dL (8.6-10.2); GLOMERULAR FILTRATION RATE 32.6 mL/min (>60); POTASSIUM 3.8 mEQ/L (3.4-4.9)
[2016-12-11] MEDS ORDERED: ZOFRAN ODT4 MG ORAL (04:38)
[2016-12-11 04:46] VITALS: BP 127/68
[2016-12-11 06:53] VITALS: BP 112/76
[2016-12-11 07:07] VITALS: BP 112/76
== END 2016-12-11 07:08 | disposition home or self-care (01) ==
LOC: EMR 03:04
DX: E86.0 Dehydration (principal); R11.2 Nausea with vomiting, unspecified; R19.7 Diarrhea, unspecified; E11.649 Type 2 diabetes mellitus with hypoglycemia without coma; I10 Essential (primary) hypertension
CPT/HCPCS: 36415; 80048; 85025; 96360; 96361; 96374; 96375; 99284; J2405; S0028

== ENCOUNTER 2016-12-14 00:43 | Inpatient (IN) | payer OTHER ==
[2016-12-14] VITALS (18 sets, daily range): BP systolic 90–170; BP diastolic 39–82
[~2016-12-14] VITALS: Ht 162.6 cm; Wt 70.8 kg
[~2016-12-14 00:43] MED LIST changes: +CLONIDINE1 EACH TD; +IBUPROFEN600 MG ORAL; +POTASSIUM CHLO10 ME2 PO; +ZOFRAN ODT4 MG ORAL
--- NOTE | 2016-12-14 01:17 | Emergency Room Report ---
History of Present Illness General Chief Complaint: Abnormal Labs Source: Patient, Medical Record Present Illness HPI Is a 46-year-old female with history of noncompliance and poorly controlled diabetes. I saw her last week for DKA the patient was admitted to ICU on insulin drip. She was discharged home and I saw her on the because she felt weak and nauseous. At that time her blood sugar was 600 home and she took 16 units of Humalog. She was in the ER and had persistent hypoglycemia. She was fed and eventually discharged home. She said she still felt weak and not eating much. At 9 PM, she checked her sugar and it was critically high. She took 20 units of Humalog and probably fell asleep. She woke up 4 hours later and still not feeling well so she came here. Here blood sugars is 194. Denies any fever or chills. Decreased appetite. No nausea no vomiting. Allergies: Coded Allergies: No Known Allergies (Unverified , 04/24/14) Patient History Past Medical History: see triage record, old chart reviewed, DM Past Surgical History: other Pertinent Family History: none Social History: Denies: smoking Last Menstrual Period: unk Now: No Immunizations: other Reviewed Nursing Documentation: PMH: Agreed, PSxH: Agreed Nursing Documentation-PMH Hx Cardiac Problems: Yes - HTN Hx Hypertension: Yes Hx Pacemaker: No Hx Diabetes: Yes Hx Cancer: No Hx Neurological Problems: No Hx Concentration Difficulty: No Review of Systems Constitutional: Reports: malaise, weakness Eye: Denies: blurred vision, eye pain ENT: Denies: ear pain, nose congestion, throat swelling Respiratory: Denies: cough, shortness of breath Cardiovascular: Denies: chest pain, palpitations Gastrointestinal: Denies: abdominal pain, diarrhea, nausea, vomiting Musculoskeletal: Denies: back pain, joint pain Skin: Denies: rash Neurological: Denies: headache, numbness Endocrine: Denies: increased thirst, increased urine Hematologic/Lymphatic: Denies: easy bruising All Other Systems: negative except mentioned in HPI Physical Exam Vital Signs Date Time Temp Pulse Resp B/P Pulse Ox O2 Delivery O2 Flow Rate FiO2 12/14/16 00:46 98.1 97 18 129/61 100 Room Air vitals normal Sp02 EP Interpretation: reviewed, normal General Appearance: no apparent distress, alert, Chronically Ill Head: normocephalic, atraumatic Eyes: bilateral eye EOMI, bilateral eye PERRL ENT: hearing grossly normal, normal pharynx Neck: full range of motion, supple, no meningismus Respiratory: chest non-tender, lungs clear, normal breath sounds Cardiovascular #1: regular rate, rhythm, no murmur Gastrointestinal: normal bowel sounds, non tender, no mass, no organomegaly, no bruit, non-distended Musculoskeletal: back normal, gait/station normal, normal range of motion Psychiatric: mood/affect normal Skin: warm/dry Medical Decision Making Diagnostic Impression: Primary Impression: Acidosis, metabolic Additional Impressions: Dehydration Vomiting Qualified Codes: R11.2 - Nausea with vomiting, unspecified Diabetes type 1, uncontrolled Qualified Codes: E10.8 - Type 1 diabetes mellitus with unspecified complications; E10.65 - Type 1 diabetes mellitus with hyperglycemia PERLA (acute kidney injury) ER Course Patient presents with uncontrolled diabetes. She said she was hyperglycemic at home. Blood glucose is driving here. She very acidotic. No evidence of DKA. Patient will be hydrated and fed. Because symptom worsen since to 3 days ago, will admit for further workup. I will go ahead and put her on D5 saline with potassium. Is admitted here, patient be admitted to Dr. Hardin service. Laboratory Tests Test 12/14/16 01:16 White Blood Count 5.2 K/UL (4.8-10.8) Red Blood Count 3.64 M/UL (4.20-5.40) L Hemoglobin 10.9 G/DL (12.0-16.0) L Hematocrit 35.0 % (37.0-47.0) L Mean Corpuscular Volume 96 FL (80-99) Mean Corpuscular Hemoglobin 29.8 PG (27.0-31.0) Mean Corpuscular Hemoglobin Concent 31.0 G/DL (32.0-36.0) L Red Cell Distribution Width 16.0 % (11.6-14.8) H Platelet Count 301 K/UL (150-450) Mean Platelet Volume 6.7 FL (6.5-10.1) Neutrophils (%) (Auto) 64.5 % (45.0-75.0) Lymphocytes (%) (Auto) 24.6 % (20.0-45.0) Monocytes (%) (Auto) 9.2 % (1.0-10.0) Eosinophils (%) (Auto) 0.0 % (0.0-3.0) Basophils (%) (Auto) 1.6 % (0.0-2.0) Sodium Level 134 mEQ/L (135-145) L Potassium Level 3.8 mEQ/L (3.4-4.9) Chloride Level 87 mEQ/L (98-107) L Carbon Dioxide Level 13 mEQ/L (20-30) L Anion Gap 34 (5-15) H Blood Urea Nitrogen 27 mg/dL (7-23) H Creatinine 2.2 mg/dL (0.5-0.9) H Estimat Glomerular Filtration Rate 29.2 mL/min (>60) Glucose Level 181 mg/dL (74-106) H Calcium Level 9.5 mg/dL (8.6-10.2) Troponin I < 0.30 ng/mL (<=0.30) Lab Results Impression labs with acidosis EKG Diagnostic Results EKG Time: 02:25 Rate: normal Rhythm: NSR ST Segments: no acute changes Rhythm Strip Diag. Results Rhythm Strip Time: 02:25 EP Interpretation: yes Rate: 104 Rhythm: NSR Last Vital Signs Date Time Temp Pulse Resp B/P Pulse Ox O2 Delivery O2 Flow Rate FiO2 12/14/16 00:46 98.1 97 18 129/61 100 Room Air Status: improved Disposition: ADMITTED INPATIENT Condition: Serious KURT AGUIAR M.D. Dec 14, 2016 01:16
[2016-12-14 01:37] LABS: BASOPHILS % (AUTO) 1.6 % (0.0-2.0); LYMPHOCYTES % (AUTO) 24.6 % (20.0-45.0); MEAN CORPUSCULAR HEMOGLOBIN 29.8 PG (27.0-31.0); MEAN CORPUSCULAR VOLUME 96 FL (80-99); MEAN PLATELET VOLUME 6.7 FL (6.5-10.1); MONOCYTES % (AUTO) 9.2 % (1.0-10.0); NEUTROPHILS % (AUTO) 64.5 % (45.0-75.0); PLATELET COUNT 301 K/UL (150-450); RED BLOOD COUNT 3.64 M/UL (4.20-5.40); WHITE BLOOD COUNT 5.2 K/UL (4.8-10.8)
[2016-12-14 01:44] LABS: CALCIUM 9.5 mg/dL (8.6-10.2); CREATININE 2.2 mg/dL (0.5-0.9); GLOMERULAR FILTRATION RATE 29.2 mL/min (>60); POTASSIUM 3.8 mEQ/L (3.4-4.9)
[2016-12-14 01:45] LABS: TROPONIN I < 0.30 ng/mL (<=0.30)
[2016-12-14] MEDS ORDERED: D5 1/2NS 1,000 ML IV SCH (02:15)
[2016-12-14] MEDS ORDERED: D5 1/2NS w/KCl 20mEq 1,000 ML IV SCH (02:15)
[2016-12-14 03:47] LABS: CALCIUM 8.3 mg/dL (8.6-10.2); CREATININE 1.7 mg/dL (0.5-0.9); GLOMERULAR FILTRATION RATE 39.4 mL/min (>60); POTASSIUM 4.4 mEQ/L (3.4-4.9)
[2016-12-14] MEDS ORDERED: KCL IV ONE (03:56)
[2016-12-14] MEDS ORDERED: NS IV ONE (03:56)
[2016-12-14] MEDS ORDERED: Morphine Sulfate 4mg/ml Inj IVP ONE (04:30)
[2016-12-14] MEDS ORDERED: LEVEMIR FL100 UNIT/1 SUBQ (05:11)
[2016-12-14] MEDS ORDERED: DuoNeb 0.5-3(2.5)mg/3ml neb HHN PRN ×2 (07:00→15:00)
[2016-12-14] MEDS ORDERED: Miralax 17gm pkt ORAL PRN (07:00)
[2016-12-14] MEDS ORDERED: Morphine Sulfate 2mg/ml Inj IVP PRN (07:00)
[2016-12-14] MEDS ORDERED: Mylanta II UD 30ml ORAL PRN ×2 (07:00→13:00)
[2016-12-14] MEDS ORDERED: Nitroglycerin Subl 0.4mg tab (Bottle Of 25) SL PRN ×2 (07:00→11:30)
[2016-12-14] MEDS ORDERED: Ketorolac 30mg Inj IV PRN ×2 (07:00→19:00)
--- NOTE | 2016-12-14 08:20 | Consultation ---
History of Present Illness General Chief Complaint: Abnormal Labs Present Illness Allergies: Coded Allergies: No Known Allergies (Unverified , 04/24/14) Medication History Scheduled Amlodipine Besylate (Norvasc), 10 MG ORAL DAILY Escitalopram Oxalate* (Lexapro*), 20 MG ORAL DAILY, (Reported) Insulin Detemir (Levemir Flexpen), 18 SUBQ DAILY, (Reported) Meloxicam* (Meloxicam*), 15 MG PO DAILY, (Reported) Pantoprazole* (Protonix*), 40 MG ORAL DAILY, (Reported) Pregabalin (Lyrica), 50 MG PO BID, (Reported) Valsartan (Diovan), 160 MG ORAL BID Scheduled PRN Clonidine HCl (Clonidine HCl), 0.1 MG ORAL Q4H PRN Ibuprofen* (Motrin*), 600 MG ORAL Q6H PRN for For Pain, (Reported) Ondansetron Odt* (Zofran Odt*), 4 MG ORAL Q6H PRN for Nausea & Vomiting Miscellaneous Medications Insulin Lispro (Humalog), 0 SUBQ, (Reported) Potassium Chloride (Potassium Chloride), 10 MEQ PO, (Reported) Discontinued Medications Clonidine (Clonidine), 1 EACH TD, (Reported) Discontinued Reason: Pt stopped taking med Duloxetine (Cymbalta), 20 MG ORAL DAILY, (Reported) Discontinued Reason: Pt stopped taking med Insulin Detemir (Levemir Flexpen), 26 UNITS SUBQ BEFORE BREAKFAST Discontinued Reason: Medication dose changed Ondansetron* (Zofran*), 4 MG ORAL Q6H PRN for Nausea & Vomiting Discontinued Reason: Medication dose changed Pregabalin* (Lyrica*), 75 MG ORAL THREE TIMES A DAY, (Reported) Discontinued Reason: Medication dose changed Sucralfate* (Carafate*), 1 GM ORAL QID Discontinued Reason: Pt stopped taking med Patient History Healthcare decision maker Resuscitation status Full Code Advanced Directive on File Physical Exam Last 24 Hour Vital Signs Date Time Temp Pulse Resp B/P Pulse Ox O2 Delivery O2 Flow Rate FiO2 12/14/16 04:45 97.6 108 18 155/65 98 Room Air 12/14/16 04:39 97.4 105 19 135/59 95 Room Air 12/14/16 03:41 97.4 108 17 109/39 94 Room Air 12/14/16 02:30 97.6 108 13 161/67 97 Room Air 12/14/16 00:55 98.2 99 14 164/72 100 Room Air 12/14/16 00:46 98.1 97 18 129/61 100 Room Air Intake and Output 12/13/16 12/14/16 19:00 07:00 Intake Total 1250 ml Balance 1250 ml Intake Oral 0 ml IV Total 1250 ml Other 0 ml # Voids 1 Laboratory Tests Test 12/14/16 01:16 12/14/16 03:25 White Blood Count 5.2 K/UL (4.8-10.8) Red Blood Count 3.64 M/UL (4.20-5.40) L Hemoglobin 10.9 G/DL (12.0-16.0) L Hematocrit 35.0 % (37.0-47.0) L Mean Corpuscular Volume 96 FL (80-99) Mean Corpuscular Hemoglobin 29.8 PG (27.0-31.0) Mean Corpuscular Hemoglobin Concent 31.0 G/DL (32.0-36.0) L Red Cell Distribution Width 16.0 % (11.6-14.8) H Platelet Count 301 K/UL (150-450) Mean Platelet Volume 6.7 FL (6.5-10.1) Neutrophils (%) (Auto) 64.5 % (45.0-75.0) Lymphocytes (%) (Auto) 24.6 % (20.0-45.0) Monocytes (%) (Auto) 9.2 % (1.0-10.0) Eosinophils (%) (Auto) 0.0 % (0.0-3.0) Basophils (%) (Auto) 1.6 % (0.0-2.0) Sodium Level 134 mEQ/L (135-145) L 132 mEQ/L (135-145) L Potassium Level 3.8 mEQ/L (3.4-4.9) 4.4 mEQ/L (3.4-4.9) Chloride Level 87 mEQ/L (98-107) L 89 mEQ/L (98-107) L Carbon Dioxide Level 13 mEQ/L (20-30) L 15 mEQ/L (20-30) L Anion Gap 34 (5-15) H 28 (5-15) H Blood Urea Nitrogen 27 mg/dL (7-23) H 26 mg/dL (7-23) H Creatinine 2.2 mg/dL (0.5-0.9) H 1.7 mg/dL (0.5-0.9) H Estimat Glomerular Filtration Rate 29.2 mL/min (>60) 39.4 mL/min (>60) Glucose Level 181 mg/dL (74-106) H 338 mg/dL (74-106) #H Calcium Level 9.5 mg/dL (8.6-10.2) 8.3 mg/dL (8.6-10.2) L Troponin I < 0.30 ng/mL (<=0.30) Height (Feet): 5 Height (Inches): 4.00 Weight (Pounds): 134 Medications Current Medications Medications (Trade) Dose Ordered Sig/Lizbeth Route PRN Reason Start Time Stop Time Status Last Admin Dose Admin Acetaminophen (Tylenol) 650 mg Q4H PRN ORAL fever 12/14/16 07:00 01/13/17 06:59 Al Hydroxide/Mg Hydroxide (Mylanta II) 30 ml Q6H PRN ORAL dyspepsia 12/14/16 07:00 01/13/17 06:59 Albuterol/ Ipratropium (DuoNeb 0.5-3(2.5)mg/3ml) 3 ml Q4H PRN HHN Shortness of Breath 12/14/16 07:00 12/19/16 06:59 Amlodipine Besylate (Norvasc) 10 mg DAILY ORAL 12/14/16 09:00 01/13/17 08:59 Clonidine HCl (Catapres) 0.1 mg Q4H PRN ORAL sbp more than 160 12/14/16 06:45 01/13/17 06:44 Dextrose (Dextrose 50%) STAT PRN IV Hypoglycemia 12/14/16 07:00 01/13/17 06:59 Heparin Sodium (Porcine) (Heparin 5000 units/ml) 5,000 units EVERY 12 HOURS SUBQ 12/14/16 09:00 01/13/17 08:59 Ibuprofen (Motrin) 600 mg Q6H PRN ORAL For Pain 12/14/16 07:00 01/13/17 06:59 Insulin Aspart (NovoLOG) BEFORE MEALS AND HS SUBQ 12/14/16 11:30 01/13/17 11:29 Ketorolac Tromethamine (Toradol 30mg) 30 mg EVERY 6 HOURS PRN IV moderate pain 4-6 12/14/16 07:00 12/19/16 06:59 UNV Morphine Sulfate (Morphine Sulfate) 2 mg Q4H PRN IVP severe pain 7-10 12/14/16 07:00 12/21/16 06:59 Nitroglycerin (Ntg) 0.4 mg Q5M X 3 DOSES PRN SL Prn Chest Pain 12/14/16 07:00 01/13/17 06:59 Ondansetron HCl (Zofran) 4 mg Q6H PRN IVP Nausea & Vomiting 12/14/16 07:00 01/13/17 06:59 Pantoprazole (Protonix) 40 mg DAILY ORAL 12/14/16 09:00 01/13/17 08:59 Polyethylene Glycol (Miralax) 17 gm HSPRN PRN ORAL Constipation 12/14/16 07:00 01/13/17 06:59 Pregabalin 50 mg 50 mg BID ORAL 12/14/16 09:00 01/13/17 08:59 Sodium Chloride (Sodium Chloride 1000ml bag) 1,000 ml @ 100 mls/hr Q10H IVLG 12/14/16 08:00 01/13/17 07:59 12/14/16 08:11 Temazepam (Restoril) 15 mg HSPRN PRN ORAL Insomnia 12/14/16 07:00 12/21/16 06:59 Jossy Guzman NP (Vanchtein) Dec 14, 2016 08:20
[2016-12-14] MEDS ORDERED: Heparin 5000 units/ml inj SUBQ SCH (09:00)
[2016-12-14] MEDS ORDERED: Lyrica 50mg cap ORAL SCH (09:00)
--- NOTE | 2016-12-14 09:29 | Consultation ---
History of Present Illness General Date patient seen: Dec 14, 2016 Time patient seen: 08:00 Chief Complaint: DOOC Referring physician: dr Hardin Reason for Consultation: internal medicine Present Illness HPI 46-year-old female with history of noncompliance and poorly controlled diabetes. I Was hospitalized recently for DKA ,was in ICU on insulin drip and eventually discharged patient came back to ED on 12/11, feeling weak and nauseous , at that time her blood sugar was 600 at home and she took 16 units of Humalog. in ED had persistent hypoglycemia She was fed , blood sugar improved and she was eventually discharged home. This time she presented with c/o weakness, poor appetite At 9 PM, she checked her sugar which was critically high. She took 20 units of Humalog and fell asleep. She woke up 4 hours later and still was not feeling well, therefore she came eladio ED for evaluation Denied any fever or chills. Reported decreased appetite and nausea Workup in ED revealed elevated anion gap, low bicarbonate, UA not obtained for ketones no leukocytosis , afebrile + evidence of renal failure BUN 27 and creat 2.2 mild anemia repeated labs in 2 hrs showed still low bicarbonate, elevated anion gap and worsening glucose, K stable-4.4 patient initially was admitted to telemetry reports this am poor appetite, nausea, not able to eat breakfast BS in 300 Allergies: Coded Allergies: No Known Allergies (Unverified , 04/24/14) Medication History Scheduled Amlodipine Besylate (Norvasc), 10 MG ORAL DAILY Escitalopram Oxalate* (Lexapro*), 20 MG ORAL DAILY, (Reported) Insulin Detemir (Levemir Flexpen), 18 SUBQ DAILY, (Reported) Meloxicam* (Meloxicam*), 15 MG PO DAILY, (Reported) Pantoprazole* (Protonix*), 40 MG ORAL DAILY, (Reported) Pregabalin (Lyrica), 50 MG PO BID, (Reported) Valsartan (Diovan), 160 MG ORAL BID Scheduled PRN Clonidine HCl (Clonidine HCl), 0.1 MG ORAL Q4H PRN Ibuprofen* (Motrin*), 600 MG ORAL Q6H PRN for For Pain, (Reported) Ondansetron Odt* (Zofran Odt*), 4 MG ORAL Q6H PRN for Nausea & Vomiting Miscellaneous Medications Insulin Lispro (Humalog), 0 SUBQ, (Reported) Potassium Chloride (Potassium Chloride), 10 MEQ PO, (Reported) Discontinued Medications Clonidine (Clonidine), 1 EACH TD, (Reported) Discontinued Reason: Pt stopped taking med Duloxetine (Cymbalta), 20 MG ORAL DAILY, (Reported) Discontinued Reason: Pt stopped taking med Insulin Detemir (Levemir Flexpen), 26 UNITS SUBQ BEFORE BREAKFAST Discontinued Reason: Medication dose changed Ondansetron* (Zofran*), 4 MG ORAL Q6H PRN for Nausea & Vomiting Discontinued Reason: Medication dose changed Pregabalin* (Lyrica*), 75 MG ORAL THREE TIMES A DAY, (Reported) Discontinued Reason: Medication dose changed Sucralfate* (Carafate*), 1 GM ORAL QID Discontinued Reason: Pt stopped taking med Patient History History Provided By: Patient Healthcare decision maker Resuscitation status Full Code Advanced Directive on File Past Medical/Surgical History Past Medical/Surgical History: (1) Hyperosmolar coma (2) Anemia (3) Diabetes (4) Diabetic ketoacidosis, type I (5) GERD (gastroesophageal reflux disease) (6) Hypertensive emergency (7) ARF (acute renal failure) Review of Systems Constitutional: Reports: weakness Eye: Reports: no symptoms ENT: Reports: no symptoms Respiratory: Reports: no symptoms Cardiovascular: Reports: no symptoms Gastrointestinal: Reports: nausea Genitourinary: Reports: no symptoms Musculoskeletal: Reports: no symptoms Skin: Reports: no symptoms Psychiatric: Reports: no symptoms Neurological: Reports: no symptoms Endocrine: Reports: see HPI Hematologic/Lymphatic: Reports: anemia - mild Physical Exam General Appearance: other - ill looking AA female in mild distress Lines, tubes and drains: peripheral HEENT: normocephalic, atraumatic, anicteric Neck: non-tender, supple Respiratory/Chest: chest wall non-tender, lungs clear, no respiratory distress , no accessory muscle use Cardiovascular/Chest: normal peripheral pulses, regular rhythm, no JVD, tachycardia - 100-110 Abdomen: normal bowel sounds, non tender, soft Extremities: normal range of motion, non-tender, no calf tenderness, normal capillary refill Neurologic: no motor/sensory deficits, alert, oriented x 3, responsive Musculoskeletal: normal muscle bulk Last 24 Hour Vital Signs Date Time Temp Pulse Resp B/P Pulse Ox O2 Delivery O2 Flow Rate FiO2 6/30/17 08:24 99 103/42 12/14/16 04:45 97.6 108 18 155/65 98 Room Air 12/14/16 04:39 97.4 105 19 135/59 95 Room Air 12/14/16 03:41 97.4 108 17 109/39 94 Room Air 12/14/16 02:30 97.6 108 13 161/67 97 Room Air 12/14/16 00:55 98.2 99 14 164/72 100 Room Air 12/14/16 00:46 98.1 97 18 129/61 100 Room Air Intake and Output 12/13/16 12/14/16 19:00 07:00 Intake Total 1250 ml Balance 1250 ml Intake Oral 0 ml IV Total 1250 ml Other 0 ml # Voids 1 Laboratory Tests Test 12/14/16 01:16 12/14/16 03:25 White Blood Count 5.2 K/UL (4.8-10.8) Red Blood Count 3.64 M/UL (4.20-5.40) L Hemoglobin 10.9 G/DL (12.0-16.0) L Hematocrit 35.0 % (37.0-47.0) L Mean Corpuscular Volume 96 FL (80-99) Mean Corpuscular Hemoglobin 29.8 PG (27.0-31.0) Mean Corpuscular Hemoglobin Concent 31.0 G/DL (32.0-36.0) L Red Cell Distribution Width 16.0 % (11.6-14.8) H Platelet Count 301 K/UL (150-450) Mean Platelet Volume 6.7 FL (6.5-10.1) Neutrophils (%) (Auto) 64.5 % (45.0-75.0) Lymphocytes (%) (Auto) 24.6 % (20.0-45.0) Monocytes (%) (Auto) 9.2 % (1.0-10.0) Eosinophils (%) (Auto) 0.0 % (0.0-3.0) Basophils (%) (Auto) 1.6 % (0.0-2.0) Sodium Level 134 mEQ/L (135-145) L 132 mEQ/L (135-145) L Potassium Level 3.8 mEQ/L (3.4-4.9) 4.4 mEQ/L (3.4-4.9) Chloride Level 87 mEQ/L (98-107) L 89 mEQ/L (98-107) L Carbon Dioxide Level 13 mEQ/L (20-30) L 15 mEQ/L (20-30) L Anion Gap 34 (5-15) H 28 (5-15) H Blood Urea Nitrogen 27 mg/dL (7-23) H 26 mg/dL (7-23) H Creatinine 2.2 mg/dL (0.5-0.9) H 1.7 mg/dL (0.5-0.9) H Estimat Glomerular Filtration Rate 29.2 mL/min (>60) 39.4 mL/min (>60) Glucose Level 181 mg/dL (74-106) H 338 mg/dL (74-106) #H Calcium Level 9.5 mg/dL (8.6-10.2) 8.3 mg/dL (8.6-10.2) L Troponin I < 0.30 ng/mL (<=0.30) Height (Feet): 5 Height (Inches): 4.00 Weight (Pounds): 134 Medications Current Medications Medications (Trade) Dose Ordered Sig/Lizbeth Route PRN Reason Start Time Stop Time Status Last Admin Dose Admin Acetaminophen (Tylenol) 650 mg Q4H PRN ORAL fever 12/14/16 07:00 01/13/17 06:59 Al Hydroxide/Mg Hydroxide (Mylanta II) 30 ml Q6H PRN ORAL dyspepsia 12/14/16 07:00 01/13/17 06:59 Albuterol/ Ipratropium (DuoNeb 0.5-3(2.5)mg/3ml) 3 ml Q4H PRN HHN Shortness of Breath 12/14/16 07:00 12/19/16 06:59 Amlodipine Besylate (Norvasc) 10 mg DAILY ORAL 12/14/16 09:00 01/13/17 08:59 Clonidine HCl (Catapres) 0.1 mg Q4H PRN ORAL sbp more than 160 12/14/16 06:45 01/13/17 06:44 Dextrose (Dextrose 50%) STAT PRN IV Hypoglycemia 12/14/16 07:00 01/13/17 06:59 Heparin Sodium (Porcine) (Heparin 5000 units/ml) 5,000 units EVERY 12 HOURS SUBQ 12/14/16 09:00 01/13/17 08:59 12/14/16 08:24 Ibuprofen (Motrin) 600 mg Q12H PRN ORAL For Pain 12/14/16 09:00 01/13/17 06:59 Insulin Aspart (NovoLOG) BEFORE MEALS AND HS SUBQ 12/14/16 11:30 01/13/17 11:29 Ketorolac Tromethamine (Toradol 30mg) 30 mg Q12H PRN IV moderate pain 4-6 12/14/16 07:00 12/19/16 06:59 Morphine Sulfate (Morphine Sulfate) 2 mg Q4H PRN IVP severe pain 7-10 12/14/16 07:00 12/21/16 06:59 Nitroglycerin (Ntg) 0.4 mg Q5M X 3 DOSES PRN SL Prn Chest Pain 12/14/16 07:00 01/13/17 06:59 Ondansetron HCl (Zofran) 4 mg Q6H PRN IVP Nausea & Vomiting 12/14/16 07:00 01/13/17 06:59 Pantoprazole (Protonix) 40 mg DAILY ORAL 12/14/16 09:00 01/13/17 08:59 12/14/16 08:19 Polyethylene Glycol (Miralax) 17 gm HSPRN PRN ORAL Constipation 12/14/16 07:00 01/13/17 06:59 Pregabalin 50 mg 50 mg BID ORAL 12/14/16 09:00 01/13/17 08:59 12/14/16 08:20 Sodium Chloride (Sodium Chloride 1000ml bag) 1,000 ml @ 100 mls/hr Q10H IVLG 12/14/16 08:00 01/13/17 07:59 12/14/16 08:11 Temazepam (Restoril) 15 mg HSPRN PRN ORAL Insomnia 12/14/16 07:00 12/21/16 06:59 Assessment/Plan Assessment/Plan ASSESSMENT DKA DOOC Noncompliance acute renal failure on chronic kidney disease HTN mild anemia PLAN OF CARE transfer to ICU start on insulin gtt as per protocol until anion gap closes get stat UA generous IVF hydration endo eval last [id number] not at goal ( this month done) BP management with CCB, optimize as needed monitor renal parameters, lytes acute component of renal failure likely due to dehydration get renal US likely chronic kidney disease likely due to diabetic nephropathy monitor HH, if further trend down, will do workup for anemia encourage compline with meds a/emetic prn DVT, GI prophylaxis case discussed and evaluated by supervising physician Thomas (Danielle),Jossy PRADO Dec 14, 2016 09:29
[2016-12-14] MEDS ORDERED: NovoLOG Insulin Flexpen SUBQ SCH ×2 (11:30)
[2016-12-14] MEDS: Morphine Sulfate 2mg/ml Inj IVP PRN (12:11)
[2016-12-14 15:10] LABS: BASOPHILS % (AUTO) 0.4 % (0.0-2.0); EOSINOPHILS % (AUTO) 0.1 % (0.0-3.0); LYMPHOCYTES % (AUTO) 14.5 % (20.0-45.0); MEAN CORPUSCULAR HEMOGLOBIN 29.4 PG (27.0-31.0); MEAN CORPUSCULAR HGB CONC 29.5 G/DL (32.0-36.0); MEAN CORPUSCULAR VOLUME 100 FL (80-99); MEAN PLATELET VOLUME 6.5 FL (6.5-10.1); MONOCYTES % (AUTO) 9.7 % (1.0-10.0); NEUTROPHILS % (AUTO) 75.4 % (45.0-75.0); PLATELET COUNT 243 K/UL (150-450); RED BLOOD COUNT 3.07 M/UL (4.20-5.40); RED CELL DISTRIBUTION WIDTH 16.5 % (11.6-14.8); WHITE BLOOD COUNT 5.5 K/UL (4.8-10.8)
[2016-12-14 15:33] LABS: ALANINE AMINOTRANSFERASE 21 U/L (3-33); ALBUMIN/GLOBULIN RATIO 1.1 (1.0-2.7); ASPARTATE AMINO TRANSFERASE 10 U/L (5-40); CALCIUM 7.9 mg/dL (8.6-10.2); CHLORIDE 94 mEQ/L (98-107); CREATININE 2.1 mg/dL (0.5-0.9); GLOMERULAR FILTRATION RATE 30.9 mL/min (>60); HEMOLYSIS 4; LACTATE DEHYDROGENASE 162 U/L (135-230); MAGNESIUM 2.1 mg/dL (1.7-2.5); PHOSPHORUS 3.1 mg/dL (2.5-4.8); POTASSIUM 3.6 mEQ/L (3.4-4.9); SODIUM 134 mEQ/L (135-145)
[2016-12-14 15:40] LABS: ANION GAP 35 (5-15); CARBON DIOXIDE 5 mEQ/L (20-30)
[2016-12-14] MEDS: Insulin Rate Change 1 Each MISC PRN ×3 (16:25→23:16)
[2016-12-14] MEDS ORDERED: Sodium Bicarbonate 50ml Carp IV ONE (16:30)
[2016-12-14] MEDS ORDERED: Sodium Bicarbonate 50ml Carp ONE (16:30)
[2016-12-14] MEDS: Sodium Bicarbonate 50 ML in NS 1000ml 1,000 ML IV SCH (17:00)
--- NOTE | 2016-12-14 17:52 | History & Physical ---
History and Physical History & Physicial Dictated for Int Med-Dr Hardin no. [id number]. ICU ANN-MARIECHRISTOS Dec 14, 2016 17:52
[2016-12-14 18:06] LABS: APPEARANCE,URINE CLEAR; KETONES,URINE 4+ (NEGATIVE); LEUKOCYTE ESTERASE ,URINE 1+ (NEGATIVE); NITRITE,URINE NEGATIVE (NEGATIVE); PH,URINE 5 (4.5-8.0); PROTEIN,URINE 2+ (NEGATIVE); UROBILINOGEN,URINE NORMAL MG/DL (0.0-1.0)
[2016-12-14] MEDS: Lyrica 50mg cap ORAL SCH (18:14)
[2016-12-14 18:18] LABS: BACTERIA,URINE FEW /HPF; RBC,URINE 0-2 /HPF (0 - 2); SQUAMOUS EPITHELIAL CELL,UR FEW /LPF (NONE/OCC)
--- NOTE | 2016-12-14 18:43 | Cardiology Report ---
APPROVED REPORT EKG Measurement Heart [id number] Normal sinus rhythm Nonspecific ST and T wave abnormality Abnormal ECG
--- NOTE | 2016-12-14 21:17 | History and Physical Report ---
DATE OF ADMISSION: 12/14/2016 CHIEF COMPLAINT: The patient is a 46-year-old female with a history of type 1 diabetes, who presents with chief complaint of elevated blood sugar. HISTORY OF PRESENT ILLNESS: The patient was admitted to [facility] from 12/05/2016 through 12/08/2016. The patient was admitted with diabetic ketoacidosis. Please see history and physical and discharge summary dictated at that time. The patient presented to [place] emergency room stating her blood sugars have been running high. The patient states her blood sugar had increased over 600. The patient took 20 units of Humalog. The patient fell asleep. The patient then awoke four hours later. The patient states that her blood sugar at that time was still over 300. The patient presented to [place] emergency room. The patient was admitted for diabetic ketoacidosis. REVIEW OF SYSTEMS: Constitutional: The patient denies weight loss or gain. The patient denies fevers or chills. HEENT: The patient denies ear or throat pain. Cardiovascular: The patient denies palpitations or chest pain. Chest: The patient denies wheeze or shortness of breath. Abdominal: The patient denies nausea, vomiting, diarrhea, or constipation. Genitourinary: The patient denies dysuria or increased frequency of urination. Neuromuscular: The patient denies seizures or generalized weakness. PAST MEDICAL HISTORY: Significant for: 1. Type 1 diabetes. 2. Diabetic ketoacidosis, last hospitalization at [place] was 12/05/2016 through 12/08/2016 as above. 3. Hypertension. 4. Major depression. 5. Diabetic gastroparesis. 6. Gastroesophageal reflux disease. PAST SURGICAL HISTORY: The patient denies. CURRENT MEDICATIONS: 1. Norvasc 10 mg one tablet p.o. daily. 2. Clonidine 0.1 mg one tablet p.o. every four hours as needed. 3. Lexapro 20 mg one tablet p.o. daily. 4. Ibuprofen 600 mg one tablet p.o. q.6 hours. 5. Levemir 18 units subcutaneously at bedtime. 6. Humalog sliding scale. 7. Meloxicam 15 mg one tablet p.o. daily. 8. Protonix 40 mg one tablet p.o. daily. 9. Potassium chloride 10 mEq one tablet p.o. daily. 10. Lyrica 50 mg one tablet p.o. twice daily. 11. Diovan 160 mg one tablet p.o. twice daily. ALLERGIES: No known drug allergies. SOCIAL HISTORY: The patient is single, lives with her aunt. 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 The patient denies tobacco or alcohol use. PHYSICAL EXAMINATION: VITAL SIGNS: Temperature 98.1, respirations 18, pulse 97, and blood pressure 129/61. GENERAL: The patient is a well-developed and well-nourished female, in no apparent distress. HEENT: Eyes, pupils are equal and responsive to light and accommodation. Extraocular movements are intact. NECK: Supple. No lymphadenopathy. CHEST: Lungs are clear to auscultation bilaterally without wheezes or rales. CARDIOVASCULAR: Regular rhythm and rate. S1 and S2 are normal without murmurs, rubs, or gallops. ABDOMEN: Soft, nontender, and nondistended. Positive bowel sounds. No evidence of hepatosplenomegaly. Currently, no rebound or guarding noted. EXTREMITIES: Negative for clubbing, cyanosis, or edema. RECTAL/GENITAL: Refused. NEUROLOGIC: Cranial nerves II through XII are grossly intact without focal deficits. Motor strength is 5/5 bilaterally. Deep tendon reflexes are 2+ plantar. LABORATORY STUDIES: WBC 5.2, hemoglobin 10.9, hematocrit 35.0, and platelets 301,000. Sodium 134, potassium 3.8, chloride 87, CO2 13, BUN 27, creatinine 2.2, and glucose 181. Anion gap 34. ASSESSMENT: This is a 46-year-old female with: 1. Diabetic ketoacidosis. 2. Diabetes type 2. 3. Hypertension. 4. Major depression. 5. Diabetic gastroparesis. 6. Gastroesophageal reflux disease. TREATMENT: 1. Diabetic ketoacidosis/diabetes type 1. An Endocrinology consultation has been obtained with Dr. Hayes. The patient has been admitted to the intensive care unit. The patient is being treated aggressively with intravenous fluids. The patient has been started on an insulin drip. The patient has also been started on sodium bicarbonate. We will follow recommendations of Endocrinology. 2. Hypertension. Continue Diovan as above. 3. Major depression. Continue Cymbalta as above. 4. Diabetic gastroparesis. 5. Gastroesophageal reflux. Continue Protonix as above. Anastacio Wright M.D. DR: SABRA JOB#: [id number] CC:
[2016-12-14] MEDS: Heparin 5000 units/ml inj SUBQ SCH (21:26)
[2016-12-15] VITALS (18 sets, daily range): BP systolic 104–143; BP diastolic 56–78
[2016-12-15] MEDS: Insulin Rate Change 1 Each MISC PRN ×7 (00:15→09:59)
[2016-12-15] MEDS: Sodium Bicarbonate 50 ML in NS 1000ml 1,000 ML IV SCH ×2 (01:43→10:17)
[2016-12-15] MEDS: Morphine Sulfate 2mg/ml Inj IVP PRN ×3 (04:30→22:57)
[2016-12-15 05:21] LABS: ALBUMIN/GLOBULIN RATIO 1.2 (1.0-2.7); CALCIUM 8.1 mg/dL (8.6-10.2); CHOLESTEROL/HDL RATIO 2.4 (3.3-4.4); CREATININE 1.9 mg/dL (0.5-0.9); GLOMERULAR FILTRATION RATE 34.7 mL/min (>60); POTASSIUM 3.7 mEQ/L (3.4-4.9); TOTAL PROTEIN 6.1 g/dL (6.6-8.7)
[2016-12-15 05:34] LABS: THYROID STIMULATING HORMONE 1.19 uIU/mL (0.300-4.500)
[2016-12-15] MEDS ORDERED: Miralax 17gm pkt ORAL PRN ×2 (07:00→21:00)
[2016-12-15 08:33] LABS: BASOPHILS % (AUTO) 0.9 % (0.0-2.0); EOSINOPHILS % (AUTO) 0.8 % (0.0-3.0); LYMPHOCYTES % (AUTO) 53.7 % (20.0-45.0); MEAN CORPUSCULAR HEMOGLOBIN 29.4 PG (27.0-31.0); MEAN CORPUSCULAR VOLUME 95 FL (80-99); MEAN PLATELET VOLUME 6.2 FL (6.5-10.1); MONOCYTES % (AUTO) 6.5 % (1.0-10.0); NEUTROPHILS % (AUTO) 38.1 % (45.0-75.0); PLATELET COUNT 247 K/UL (150-450); RED BLOOD COUNT 3.46 M/UL (4.20-5.40); RED CELL DISTRIBUTION WIDTH 15.8 % (11.6-14.8); WHITE BLOOD COUNT 5.7 K/UL (4.8-10.8)
[2016-12-15 08:52] LABS: HEMOGLOBIN A1C 10.8 % (< 6.0)
[2016-12-15] MEDS: Lyrica 50mg cap ORAL SCH ×2 (09:08→17:04)
[2016-12-15] MEDS: Heparin 5000 units/ml inj SUBQ SCH ×2 (09:10→21:28)
--- NOTE | 2016-12-15 10:56 | Diagnostic Imaging Report ---
Indication:Elevated Bun and Creatinine. Technique: Grayscale and duplex Doppler imaging of the kidneys performed. Comparison: None Findings: Kidneys appear somewhat echogenic. Please correlate clinically. Renal size and contour appear normal. There is no hydronephrosis. Right kidney measures 11.5 CM left kidney 11.2 CM. Bladder wall appears slightly thick. IVC is unremarkable. Impression: Question of increased echogenicity of the kidneys. Some of this may be technical in nature due to poor scan parameters. Please correlate clinically. No evidence of obstructive nephropathy. Thickening of the urinary bladder wall suspected. Please correlate clinically for cystitis
[2016-12-15] MEDS ORDERED: NovoLOG Insulin Flexpen SUBQ SCH ×2 (13:00→16:30)
[2016-12-15] MEDS ORDERED: Levemir Flexpen SUBQ SCH (13:00)
--- NOTE | 2016-12-15 14:36 | Internal Med Progress Note ---
Subjective Date of Service: Dec 15, 2016 Physician Name Anastacio Jacobsen Attending Physician Aries Hardin MD Current Medications Medications (Trade) Dose Ordered Sig/Lizbeth Route PRN Reason Start Time Stop Time Status Last Admin Dose Admin Acetaminophen (Tylenol) 650 mg Q4H PRN ORAL fever 12/14/16 15:00 01/13/17 14:59 Al Hydroxide/Mg Hydroxide (Mylanta II) 30 ml Q6H PRN ORAL dyspepsia 12/14/16 13:00 01/13/17 12:59 Albuterol/ Ipratropium (DuoNeb 0.5-3(2.5)mg/3ml) 3 ml Q4H PRN HHN Shortness of Breath 12/14/16 15:00 12/19/16 14:59 Amlodipine Besylate (Norvasc) 10 mg DAILY ORAL 12/15/16 09:00 01/14/17 08:59 12/15/16 09:09 Clonidine HCl (Catapres) 0.1 mg Q4H PRN ORAL sbp more than 160 12/14/16 14:45 01/13/17 14:44 12/14/16 21:28 Dextrose (Dextrose 50%) PRN PRN IV HYPOGLYCEMIA 12/14/16 11:45 01/13/17 11:44 12/15/16 06:11 Dextrose (Dextrose 50%) STAT PRN IV Hypoglycemia 12/15/16 11:45 01/14/17 11:44 Escitalopram Oxalate (Lexapro) 20 mg DAILY ORAL 12/16/16 09:00 01/15/17 08:59 Heparin Sodium (Porcine) (Heparin 5000 units/ml) 5,000 units EVERY 12 HOURS SUBQ 12/14/16 21:00 01/13/17 20:59 12/15/16 09:10 Ibuprofen (Motrin) 600 mg Q12H PRN ORAL For Pain 12/14/16 21:00 01/13/17 20:59 Insulin Aspart (NovoLOG) BEFORE MEALS AND HS SUBQ 12/15/16 16:30 01/14/17 16:29 Insulin Aspart (NovoLOG) 5 units NOVOTIAC SUBQ 12/15/16 13:00 01/14/17 12:59 12/15/16 14:16 Insulin Detemir (Levemir) 18 units DAILY SUBQ 12/15/16 13:00 01/14/17 12:59 12/15/16 14:14 Insulin Human Regular (NovoLIN R) 5 units PRN PRN IV BS 200-299 12/14/16 12:00 01/13/17 11:59 12/14/16 16:26 Insulin Human Regular (NovoLIN R) 10 units PRN PRN IV BS=>300 12/14/16 12:00 01/13/17 11:59 12/14/16 15:10 Ketorolac Tromethamine (Toradol 30mg) 30 mg Q12H PRN IV moderate pain 4-6 12/14/16 19:00 12/19/16 18:59 12/14/16 21:28 Mirtazapine (Remeron) 7.5 mg BEDTIME ORAL 12/15/16 21:00 01/14/17 20:59 Miscellaneous Medication 1 ea 1 ea PRN PRN MISC Hyperglycemia 12/14/16 21:30 01/13/17 21:29 12/15/16 09:59 Morphine Sulfate (Morphine Sulfate) 2 mg Q4H PRN IVP severe pain 7-10 12/14/16 15:00 12/21/16 14:59 12/15/16 14:13 Nitroglycerin (Ntg) 0.4 mg Q5M X 3 DOSES PRN SL Prn Chest Pain 12/14/16 11:30 01/13/17 11:29 Ondansetron HCl (Zofran) 4 mg Q6H PRN IVP Nausea & Vomiting 12/14/16 13:00 01/13/17 12:59 12/14/16 18:36 Pantoprazole (Protonix) 40 mg DAILY ORAL 12/15/16 09:00 01/14/17 08:59 12/15/16 09:08 Polyethylene Glycol (Miralax) 17 gm HSPRN PRN ORAL Constipation 12/15/16 07:00 01/14/17 06:59 Pregabalin (Lyrica) 50 mg BID ORAL 12/14/16 18:00 01/13/17 17:59 12/15/16 09:08 Sodium Chloride (Sodium Chloride 1000ml bag) 1,000 ml @ 125 mls/hr Q8H IV 12/15/16 11:00 01/14/17 10:59 12/15/16 11:30 Temazepam (Restoril) 15 mg HSPRN PRN ORAL Insomnia 12/15/16 07:00 12/22/16 06:59 Allergies: Coded Allergies: No Known Allergies (Unverified , 04/24/14) ROS Limited/Unobtainable: No Constitutional: Reports: no symptoms HEENT: Reports: no symptoms Cardiovascular: Reports: no symptoms Respiratory: Reports: no symptoms Gastrointestinal/Abdominal: Reports: nausea Genitourinary: Reports: no symptoms Neurologic/Psychiatric: Reports: no symptoms Subjective 46 YO F admitted with diabetic ketoacidosis. ICU. Cover for Int Med-Dr Hardin. Off insulin drip. Objective Last Vital Signs Date Time Temp Pulse Resp B/P Pulse Ox O2 Delivery O2 Flow Rate FiO2 12/15/16 14:00 94 18 134/75 100 Nasal Cannula 2.0 12/15/16 12:00 98.2 Laboratory Tests Test 12/14/16 17:55 12/15/16 04:30 Urine Color Pale yellow Urine Appearance Clear Urine pH 5 (4.5-8.0) Urine Specific [place] 1.015 (1.005-1.035) Urine Protein 2+ (NEGATIVE) H Urine Glucose (UA) 4+ (NEGATIVE) H Urine Ketones 4+ (NEGATIVE) H Urine Occult Blood Negative (NEGATIVE) Urine Nitrite Negative (NEGATIVE) Urine Bilirubin Negative (NEGATIVE) Urine Urobilinogen Normal MG/DL (0.0-1.0) Urine Leukocyte Esterase 1+ (NEGATIVE) H Urine RBC 0-2 /HPF (0 - 2) Urine WBC 2-4 /HPF (0 - 2) Urine Squamous Epithelial Cells Few /LPF (NONE/OCC) Urine Bacteria Few /HPF (NONE) White Blood Count 5.7 K/UL (4.8-10.8) Red Blood Count 3.46 M/UL (4.20-5.40) L Hemoglobin 10.2 G/DL (12.0-16.0) L Hematocrit 32.8 % (37.0-47.0) L Mean Corpuscular Volume 95 FL (80-99) Mean Corpuscular Hemoglobin 29.4 PG (27.0-31.0) Mean Corpuscular Hemoglobin Concent 31.0 G/DL (32.0-36.0) L Red Cell Distribution Width 15.8 % (11.6-14.8) H Platelet Count 247 K/UL (150-450) Mean Platelet Volume 6.2 FL (6.5-10.1) L Neutrophils (%) (Auto) 38.1 % (45.0-75.0) L Lymphocytes (%) (Auto) 53.7 % (20.0-45.0) H Monocytes (%) (Auto) 6.5 % (1.0-10.0) Eosinophils (%) (Auto) 0.8 % (0.0-3.0) Basophils (%) (Auto) 0.9 % (0.0-2.0) Sodium Level 142 mEQ/L (135-145) Potassium Level 3.7 mEQ/L (3.4-4.9) Chloride Level 103 mEQ/L (98-107) Carbon Dioxide Level 27 mEQ/L (20-30) Anion Gap 12 (5-15) Blood Urea Nitrogen 23 mg/dL (7-23) Creatinine 1.9 mg/dL (0.5-0.9) H Estimat Glomerular Filtration Rate 34.7 mL/min (>60) Glucose Level 75 mg/dL (74-106) # Hemoglobin A1c 10.8 % (< 6.0) H Calcium Level 8.1 mg/dL (8.6-10.2) L Total Bilirubin 0.2 mg/dL (0.0-1.2) Aspartate Amino Transf (AST/SGOT) 13 U/L (5-40) Alanine Aminotransferase (ALT/SGPT) 20 U/L (3-33) Alkaline Phosphatase 88 U/L (35-104) Total Protein 6.1 g/dL (6.6-8.7) L Albumin 3.4 g/dL (3.5-5.2) L Globulin 2.7 g/dL Albumin/Globulin Ratio 1.2 (1.0-2.7) Triglycerides Level 116 mg/dL (< 150) Cholesterol Level 152 mg/dL (< 200) LDL Cholesterol 65 mg/dL (60-99) HDL Cholesterol 64 mg/dL (> 60) H Cholesterol/HDL Ratio 2.4 (3.3-4.4) L Thyroid Stimulating Hormone (TSH) 1.190 uIU/mL (0.300-4.500) Intake and Output 6/30/17 7/1/17 19:00 07:00 Intake Total 1003.41 ml 2151.7 ml Balance 1003.41 ml 2151.7 ml Intake Oral 650 ml IV Total 1003.41 ml 1501.7 ml Objective General: alert, cooperative, no distress, appears stated age Head: normocephalic, without obvious abnormality, atraumatic Eyes: conjunctivae/corneas clear. PERRL, EOM's intact Throat: lips, mucosa, and tongue normal. MMM Neck: supple, symmetrical, trachea midline, and no JVD Lungs: clear to auscultation bilaterally Heart: regular rate and rhythm, S1, S2 normal, no murmur, click, rub or gallop Abdomen: soft, non-tender, non-distended, bowel sounds normal; no masses or organomegaly Extremities: extremities normal, atraumatic, no cyanosis or edema Pulses: 2+ and symmetric Skin: skin color, texture, turgor normal; no rashes or lesions Neurologic: grossly normal, no focal deficits Assessment/Plan Problem List: (1) Hypertension Assessment & Plan: Currently hypotensive. (2) Major depression Assessment & Plan: Continue remeron and lexapro. Await psych consult. (3) Nausea & vomiting (4) Diabetic ketoacidosis, type I (5) Diabetes type 1, uncontrolled Assessment & Plan: See endocrinology note. D/C insulin drip. Continue levemir and novolog sliding scale. (6) Diabetic gastroparesis Assessment & Plan: Await GI consult. (7) GERD (gastroesophageal reflux disease) Status: progressing Assessment/Plan Transfer to Med/Surg when stable. ANASTACIO JACOBSEN Dec 15, 2016 14:36
--- NOTE | 2016-12-15 14:41 | Pulmonolgy Critical Care Note ---
Critical Care - Asmt/Plan Assessment/Plan: ASSESSMENT DKA DOOC Noncompliance acute renal failure on chronic kidney disease HTN mild anemia PLAN OF CARE in ICU dc insulin gtt start premeal insulin and long acting Levemir along with SS as needed endo follows IVF hydration continue, but change w/out CO2 [id number]-24.8 not at goal BP management with CCB, optimize as needed monitor renal parameters, lytes creat with small trend down acute component of renal failure likely due to dehydration renal US with questionable increased echogenicity of kidney , if real c/w with medical renal disease likely chronic kidney disease due to diabetic nephropathy monitor HH, encourage compliance with meds a/emetic prn DVT, GI prophylaxis transfer to [facility] floor psych seen and evaluated started on antidepressive case discussed and evaluated by supervising physician Critical Care - Objective Last 24 Hour Vital Signs Date Time Temp Pulse Resp B/P Pulse Ox O2 Delivery O2 Flow Rate FiO2 12/15/16 14:00 94 18 134/75 100 Nasal Cannula 2.0 12/15/16 13:00 92 18 104/56 100 Nasal Cannula 2.0 12/15/16 12:00 87 12/15/16 12:00 98.2 87 16 140/78 100 Nasal Cannula 2.0 12/15/16 11:00 85 18 125/70 100 Nasal Cannula 2.0 12/15/16 10:00 84 18 133/61 100 Nasal Cannula 2.0 12/15/16 09:09 88 125/61 12/15/16 09:00 84 16 125/61 100 Nasal Cannula 2.0 12/15/16 08:00 85 12/15/16 08:00 98.1 82 16 142/69 98 Nasal Cannula 2.0 12/15/16 07:00 80 16 123/57 100 Nasal Cannula 2.0 12/15/16 06:00 81 17 125/63 100 Nasal Cannula 2.0 12/15/16 05:00 98.0 12/15/16 05:00 88 16 137/59 100 Nasal Cannula 2.0 12/15/16 04:00 90 12/15/16 04:00 97.8 88 16 140/62 99 Nasal Cannula 2.0 12/15/16 03:00 83 17 139/68 99 Nasal Cannula 2.0 12/15/16 02:00 82 16 138/72 99 Nasal Cannula 2.0 12/15/16 01:00 84 16 136/70 100 Nasal Cannula 2.0 12/15/16 00:00 92 12/15/16 00:00 97.7 89 16 143/74 100 Nasal Cannula 2.0 12/14/16 23:00 88 15 130/61 100 Nasal Cannula 2.0 12/14/16 22:00 89 12 136/56 100 Nasal Cannula 2.0 12/14/16 21:58 97.6 12/14/16 21:28 180/80 12/14/16 21:00 99 12 170/77 100 Nasal Cannula 2.0 12/14/16 20:00 90 12/14/16 20:00 97.7 97 15 170/82 100 Nasal Cannula 2.0 12/14/16 19:00 91 20 136/62 100 Nasal Cannula 2.0 12/14/16 18:00 102 20 136/66 100 Nasal Cannula 2.0 12/14/16 17:00 98 20 139/73 100 Nasal Cannula 2.0 12/14/16 16:00 100 12/14/16 16:00 97.6 100 18 90/62 100 Nasal Cannula 2.0 12/14/16 15:00 92 18 101/51 100 Nasal Cannula 2.0 Objective: General Appearance: middle age AA female in no acute distress Lines, tubes and drains: peripheral HEENT: normocephalic, atraumatic, anicteric Neck: non-tender, supple Respiratory/Chest: chest wall non-tender, lungs clear, no respiratory distress , no accessory muscle use Cardiovascular/Chest: normal peripheral pulses, regular rhythm, no JVD, tachycardia - 100-110 Abdomen: normal bowel sounds, non tender, soft Extremities: normal range of motion, non-tender, no calf tenderness, normal capillary refill Neurologic: no motor/sensory deficits, alert, oriented x 3, responsive Musculoskeletal: normal muscle bulk Accucheck: 343 Critical Care - Subjective Interval Events: patient reported feeling better anion gap closed, CO2 up to 27 creat down to 1.9 BS 75 this am Condition: improving IV Access: peripheral EKG Rhythm: Sinus Rhythm Fluids: NS at 125 I&O: Intake and Output 12/14/16 12/15/16 19:00 07:00 Intake Total 1003.41 ml 2151.7 ml Balance 1003.41 ml 2151.7 ml Intake Oral 650 ml IV Total 1003.41 ml 1501.7 ml Thomas (Danielle),Jossy PRADO Dec 15, 2016 14:41
[2016-12-15] MEDS ORDERED: Ketorolac 30mg Inj IV PRN (16:00)
[2016-12-15] MEDS ORDERED: Nitroglycerin Subl 0.4mg tab (Bottle Of 25) SL PRN (16:00)
[2016-12-15] MEDS ORDERED: Mylanta II UD 30ml ORAL PRN (16:00)
[2016-12-15] MEDS ORDERED: DuoNeb 0.5-3(2.5)mg/3ml neb HHN PRN (16:00)
--- NOTE | 2016-12-15 16:02 | Consultation ---
DATE OF CONSULTATION: 12/15/2016 ENDOCRINOLOGY CONSULTATION CONSULTING PHYSICIAN: Judd Hayes M.D. REFERRING PHYSICIAN: Aries Hardin M.D. REASON FOR CONSULTATION: Recurrent diabetic ketoacidosis. HISTORY OF PRESENT ILLNESS: The patient is a 46-year-old female with a history of type 1 diabetes with multiple presentations to [facility] with diabetic ketoacidosis, last one being in November. She was discharged on bolus of insulin and she went home. In the past few days, she has not been eating breakfast. She stopped using both of her insulin, came back to the emergency room with diabetic ketoacidosis, admitted to the ICU, started on IV fluid and IV insulin and now the gap is closed. PAST MEDICAL HISTORY: 1. Type 1 diabetes. 2. DKA recurrent. 3. Hypertension. 4. Depression. 5. Gastroparesis. 6. GERD. PAST SURGICAL HISTORY: None. MEDICATIONS: Reviewed and reconciled. ALLERGIES TO MEDICATIONS: None. SOCIAL HISTORY: The patient is single. Lives with her aunt. 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 No smoking, alcohol or drug use. REVIEW OF SYSTEMS: As per HPI. FAMILY HISTORY: Negative for diabetes. PHYSICAL EXAMINATION: GENERAL: She is awake and alert. VITAL SIGNS: Blood pressure is 100/60, heart rate 80, temperature 98 degrees, and respiratory rate of 18. HEENT: Pupils are reactive to light and accommodation. Sclerae are anicteric. NECK: No JVD. No thyromegaly. No bruit. LUNGS: Clear. HEART: Regular rate and rhythm. ABDOMEN: Positive bowel sounds. Soft. EXTREMITIES: No clubbing, cyanosis, or edema. LABORATORY DATA: WBC 5, hemoglobin 9, hematocrit 28, and platelets 256,000. Sodium 140, potassium 3.7, chloride 100, bicarbonate 27, BUN 11, creatinine 1.5, and A1c of 10.8. DIAGNOSES: 1. Type 1 diabetes. 2. Diabetic ketoacidosis due to noncompliance. 3. Acute kidney injury. PLAN: 1. Discontinue insulin drip. 2. Continue IV hydration with normal saline. 3. Start Levemir 18 units daily. 4. Start NovoLog 5 units before each meal. 5. NovoLog sliding scale. 6. Continue to monitor labs. 7. Further adjustment according to the blood glucose values. Thank you, Dr. Hardin, for the courtesy of this consultation. Judd Hayes M.D. DR: KORIN JOB#: [id number] CC:
[2016-12-15] MEDS: NovoLOG Insulin Flexpen SUBQ SCH ×3 (17:06→21:00)
[2016-12-15] MEDS ORDERED: Insulin Rate Change 1 Each MISC PRN (21:30)
--- NOTE | 2016-12-16 01:46 | Consultation ---
DATE OF CONSULTATION: 12/15/2016 GASTROLOGY CONSULTATION CONSULTING PHYSICIAN: Essie Fraga M.D. CHIEF COMPLAINT: I was asked to see this patient by Dr. Aries Hardin for evaluation of nausea and vomiting. HISTORY OF PRESENT ILLNESS: The patient is a 46-year-old woman with insulin-dependent diabetes, who was in her usual state of health until she was admitted to the hospital from 12/05/2016 to 12/08/2016. She was admitted with diabetic ketoacidosis. She was discharged and now returns stating her blood sugar is very high. The patient was admitted to the intensive care unit due to her ketoacidosis physiology. She complains of acutely decreased appetite, nausea, vomiting, and gagging. She also complains of diarrhea, but denies any abdominal pain. The patient has had endoscopy a few years ago, but has not had a colonoscopy. She previously was on Protonix, but she tapered it and takes it as needed. She does have a history of gastroesophageal reflux disease and diabetic gastroparesis on her records. PAST MEDICAL HISTORY: History of type 1 diabetes mellitus, history of diabetic ketoacidosis, history of hypertension, major depression, and gastroesophageal reflux disease. PAST SURGICAL HISTORY: None. SOCIAL HISTORY: The patient is single. Lives with her aunt. 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 She denies smoking or drinking. FAMILY HISTORY: Noncontributory. REVIEW OF SYSTEMS: Otherwise negative. PHYSICAL EXAMINATION: GENERAL: This is a pleasant woman, seen in the intensive care unit. HEENT: Normocephalic and atraumatic. Sclerae anicteric. Oropharynx clear. NECK: Supple. CHEST: Clear to auscultation. CARDIOVASCULAR: Revealed a regular rate. ABDOMEN: Soft with good bowel sounds. There is no organomegaly or tenderness. EXTREMITIES: Revealed no edema. NEUROLOGIC: Grossly nonfocal. LABORATORY DATA: Noted. ASSESSMENT AND PLAN: This patient presents with symptoms of nausea and vomiting in the setting of acute diabetic ketoacidosis. Her symptoms appear to be to ketoacidosis physiology results. The patient, however, does likely to have an underlying diabetic gastroparesis and therefore is more predisposed to vomiting. The patient should be treated conservatively since her symptoms improved. I would definitely advice her to take her proton pump inhibitor on a long-term basis due to gastroesophageal reflux disease is a very high incidence in this scenario. Further recommendations are to follow. Thank you for asking me to participate in the care of this patient. Essie Fraga M.D. DR: HECTOR JOB#: [id number] CC:
[2016-12-16 04:00] VITALS: BP 159/88
[2016-12-16] MEDS: Morphine Sulfate 2mg/ml Inj IVP PRN (05:58)
[2016-12-16] MEDS: NovoLOG Insulin Flexpen SUBQ SCH ×7 (06:11→21:00)
[2016-12-16 07:24] LABS: BASOPHILS % (AUTO) 1.4 % (0.0-2.0); EOSINOPHILS % (AUTO) 2.7 % (0.0-3.0); LYMPHOCYTES % (AUTO) 45.4 % (20.0-45.0); MEAN CORPUSCULAR HEMOGLOBIN 31.1 PG (27.0-31.0); MEAN CORPUSCULAR HGB CONC 32.9 G/DL (32.0-36.0); MEAN CORPUSCULAR VOLUME 94 FL (80-99); MEAN PLATELET VOLUME 6.5 FL (6.5-10.1); MONOCYTES % (AUTO) 8.7 % (1.0-10.0); NEUTROPHILS % (AUTO) 41.9 % (45.0-75.0); PLATELET COUNT 200 K/UL (150-450); RED BLOOD COUNT 2.84 M/UL (4.20-5.40); RED CELL DISTRIBUTION WIDTH 15.6 % (11.6-14.8)
[2016-12-16 08:00] VITALS: BP 159/95
[2016-12-16 08:05] LABS: ALANINE AMINOTRANSFERASE 24 U/L (3-33); ALBUMIN/GLOBULIN RATIO 1.2 (1.0-2.7); ANION GAP 10 (5-15); ASPARTATE AMINO TRANSFERASE 55 U/L (5-40); CALCIUM 7.7 mg/dL (8.6-10.2); CARBON DIOXIDE 26 mEQ/L (20-30); CHLORIDE 106 mEQ/L (98-107); CREATININE 1.5 mg/dL (0.5-0.9); GLOMERULAR FILTRATION RATE 45.5 mL/min (>60); HEMOLYSIS 36; PHOSPHORUS 2.5 mg/dL (2.5-4.8); POTASSIUM 4.1 mEQ/L (3.4-4.9); SODIUM 142 mEQ/L (135-145); TOTAL PROTEIN 5.2 g/dL (6.6-8.7)
[2016-12-16] MEDS: Lyrica 50mg cap ORAL SCH ×2 (08:14→17:54)
[2016-12-16] MEDS: Heparin 5000 units/ml inj SUBQ SCH ×2 (08:17→20:36)
[2016-12-16] MEDS: Levemir Flexpen SUBQ SCH (08:18)
[2016-12-16 12:00] VITALS: BP 145/81
--- NOTE | 2016-12-16 12:39 | Pulmonology Progress Note ---
Assessment/Plan Assessment/Plan ASSESSMENT DKA DOOC Noncompliance acute renal failure on chronic kidney disease HTN mild anemia PLAN OF CARE [facility] floor s/p insulin gtt on premeal insulin and long acting Levemir along with SS as needed endo follows IVF hydration NaB2s-28.8 not at goal BP management with CCB, optimize as needed monitor renal parameters, lytes , creat with small trend down acute component of renal failure likely due to dehydration renal US with questionable increased echogenicity of kidney , if real c/w with medical renal disease likely chronic kidney disease due to diabetic nephropathy monitor HH, encourage compliance with meds a/emetic prn DVT, GI prophylaxis psych seen and evaluated started on antidepressive diabetic teaching by nursing case discussed and evaluated by supervising physician Subjective Allergies: Coded Allergies: No Known Allergies (Unverified , 04/24/14) Subjective afebrile, BS stable with current regimen feeling better creat down to 1.5 Objective Last 24 Hour Vital Signs Date Time Temp Pulse Resp B/P Pulse Ox O2 Delivery O2 Flow Rate FiO2 12/16/16 08:11 96 159/88 12/16/16 08:00 97.5 95 20 159/95 99 Room Air 12/16/16 06:28 97.5 12/16/16 04:00 97.5 96 18 159/88 97 Room Air 12/15/16 20:00 97.0 92 17 110/69 97 Room Air 12/15/16 16:00 97.7 93 19 125/64 94 Room Air 12/15/16 15:00 94 18 128/63 100 Nasal Cannula 2.0 12/15/16 14:40 98.2 12/15/16 14:00 94 18 134/75 100 Nasal Cannula 2.0 12/15/16 13:00 92 18 104/56 100 Nasal Cannula 2.0 Intake and Output 12/15/16 12/16/16 19:00 07:00 Intake Total 1664.02 ml 1000 ml Balance 1664.02 ml 1000 ml Intake Oral 350 ml IV Total 1314.02 ml 1000 ml # Voids 1 1 Objective General Appearance: middle age AA female in no acute distress Lines, tubes and drains: peripheral HEENT: normocephalic, atraumatic, anicteric Neck: non-tender, supple Respiratory/Chest: chest wall non-tender, lungs clear, no respiratory distress , no accessory muscle use Cardiovascular/Chest: normal peripheral pulses, regular rhythm, no JVD, Abdomen: normal bowel sounds, non tender, soft Extremities: normal range of motion, non-tender, no calf tenderness, normal capillary refill Neurologic: no motor/sensory deficits, alert, oriented x 3, responsive Musculoskeletal: normal muscle bulk Microbiology Date/Time Source Procedure Growth Status 12/14/16 04:31 Nasal Nares MRSA Culture - Final NO METHICILLIN RESISTANT STAPH AUREUS... Complete 12/14/16 04:31 Rectum VRE Culture - Final NO VANCOMYCIN RESISTANT ENTEROCOCCUS ... Complete Laboratory Tests 12/16/16 05:50: White Blood Count 5.0, Red Blood Count 2.84L, Hemoglobin 8.8L, Hematocrit 26.7L , Mean Corpuscular Volume 94, Mean Corpuscular Hemoglobin 31.1H, Mean Corpuscular Hemoglobin Concent 32.9, Red Cell Distribution Width 15.6H, Platelet Count 200, Mean Platelet Volume 6.5, Neutrophils (%) (Auto) 41.9L, Lymphocytes (%) (Auto) 45.4H, Monocytes (%) (Auto) 8.7, Eosinophils (%) (Auto) 2.7, Basophils (%) (Auto) 1.4, Sodium Level 142, Potassium Level 4.1, Chloride Level 106, Carbon Dioxide Level 26, Anion Gap 10, Blood Urea Nitrogen 19, Creatinine 1.5H, Estimat Glomerular Filtration Rate 45.5, Glucose Level 83, Calcium Level 7.7L, Phosphorus Level 2.5, Magnesium Level 2.0, Total Bilirubin < 0.2, Aspartate Amino Transf (AST/SGOT) 55H, Alanine Aminotransferase (ALT/SGPT ) 24, Alkaline Phosphatase 83, Total Protein 5.2L, Albumin 2.9L, Globulin 2.3, Albumin/Globulin Ratio 1.2 Current Medications Medications (Trade) Dose Ordered Sig/Lizbeth Route PRN Reason Start Time Stop Time Status Last Admin Dose Admin Acetaminophen (Tylenol) 650 mg Q4H PRN ORAL T>100.5 12/15/16 16:00 01/14/17 15:59 Al Hydroxide/Mg Hydroxide (Mylanta II) 30 ml Q6H PRN ORAL dyspepsia 12/15/16 16:00 01/14/17 15:59 Albuterol/ Ipratropium (DuoNeb 0.5-3(2.5)mg/3ml) 3 ml Q4H PRN HHN Shortness of Breath 12/15/16 16:00 12/20/16 15:59 Amlodipine Besylate (Norvasc) 10 mg DAILY ORAL 12/16/16 09:00 01/15/17 08:59 12/16/16 08:11 Clonidine HCl (Catapres) 0.1 mg Q4H PRN ORAL SBP>160 12/15/16 16:00 01/14/17 15:59 Dextrose (Dextrose 50%) STAT PRN IV Hypoglycemia 12/15/16 16:00 01/14/17 15:59 Escitalopram Oxalate (Lexapro) 20 mg DAILY ORAL 12/16/16 09:00 01/15/17 08:59 12/16/16 08:15 Heparin Sodium (Porcine) (Heparin 5000 units/ml) 5,000 units EVERY 12 HOURS SUBQ 12/15/16 21:00 01/14/17 20:59 12/16/16 08:17 Ibuprofen (Motrin) 600 mg Q12H PRN ORAL Mild Pain (Pain Scale 1-3) 12/15/16 16:00 01/14/17 15:59 Insulin Aspart (NovoLOG) BEFORE MEALS AND HS SUBQ 12/15/16 17:30 01/14/17 17:29 12/16/16 12:23 Insulin Aspart (NovoLOG) 5 units NOVOTIAC SUBQ 12/15/16 17:30 01/14/17 17:29 12/16/16 12:25 Insulin Detemir (Levemir) 18 units DAILY SUBQ 12/16/16 09:00 01/15/17 08:59 12/16/16 08:18 Ketorolac Tromethamine (Toradol 30mg) 30 mg Q12H PRN IV Moderate Pain (Pain Scale 4-6) 12/15/16 16:00 12/20/16 15:59 12/15/16 17:12 Mirtazapine (Remeron) 7.5 mg BEDTIME ORAL 12/15/16 21:00 01/14/17 20:59 12/15/16 21:26 Morphine Sulfate (Morphine Sulfate) 2 mg Q4H PRN IVP Severe Pain (Pain Scale 7-10) 12/15/16 16:00 12/22/16 15:59 12/16/16 05:58 Nitroglycerin (Ntg) 0.4 mg Q5M X 3 DOSES PRN SL Prn Chest Pain 12/15/16 16:00 01/14/17 15:59 Ondansetron HCl (Zofran) 4 mg Q6H PRN IVP Nausea & Vomiting 12/15/16 16:00 01/14/17 15:59 Pantoprazole (Protonix) 40 mg DAILY ORAL 12/16/16 09:00 01/15/17 08:59 12/16/16 08:15 Polyethylene Glycol (Miralax) 17 gm HSPRN PRN ORAL Constipation 12/15/16 21:00 01/14/17 20:59 Pregabalin (Lyrica) 50 mg BID ORAL 12/15/16 18:00 01/14/17 17:59 12/16/16 08:14 Sodium Chloride (Sodium Chloride 1000ml bag) 1,000 ml @ 125 mls/hr Q8H IV 12/15/16 16:00 01/14/17 15:59 12/16/16 08:09 Temazepam (Restoril) 15 mg HSPRN PRN ORAL Insomnia 12/15/16 21:00 12/22/16 20:59 Thomas ([facility])Jossy NP Dec 16, 2016 12:39
--- NOTE | 2016-12-16 12:47 | Internal Med Progress Note ---
Subjective Date of Service: Dec 16, 2016 Physician Name Christos Jacobsen Attending Physician Aries Hardin MD Current Medications Medications (Trade) Dose Ordered Sig/Lizbeth Route PRN Reason Start Time Stop Time Status Last Admin Dose Admin Acetaminophen (Tylenol) 650 mg Q4H PRN ORAL T>100.5 12/15/16 16:00 01/14/17 15:59 Al Hydroxide/Mg Hydroxide (Mylanta II) 30 ml Q6H PRN ORAL dyspepsia 12/15/16 16:00 01/14/17 15:59 Albuterol/ Ipratropium (DuoNeb 0.5-3(2.5)mg/3ml) 3 ml Q4H PRN HHN Shortness of Breath 12/15/16 16:00 12/20/16 15:59 Amlodipine Besylate (Norvasc) 10 mg DAILY ORAL 12/16/16 09:00 01/15/17 08:59 12/16/16 08:11 Clonidine HCl (Catapres) 0.1 mg Q4H PRN ORAL SBP>160 12/15/16 16:00 01/14/17 15:59 Dextrose (Dextrose 50%) STAT PRN IV Hypoglycemia 12/15/16 16:00 01/14/17 15:59 Escitalopram Oxalate (Lexapro) 20 mg DAILY ORAL 12/16/16 09:00 01/15/17 08:59 12/16/16 08:15 Heparin Sodium (Porcine) (Heparin 5000 units/ml) 5,000 units EVERY 12 HOURS SUBQ 12/15/16 21:00 01/14/17 20:59 12/16/16 08:17 Ibuprofen (Motrin) 600 mg Q12H PRN ORAL Mild Pain (Pain Scale 1-3) 12/15/16 16:00 01/14/17 15:59 Insulin Aspart (NovoLOG) BEFORE MEALS AND HS SUBQ 12/15/16 17:30 01/14/17 17:29 12/16/16 12:23 Insulin Aspart (NovoLOG) 5 units NOVOTIAC SUBQ 12/15/16 17:30 01/14/17 17:29 12/16/16 12:25 Insulin Detemir (Levemir) 18 units DAILY SUBQ 12/16/16 09:00 01/15/17 08:59 12/16/16 08:18 Ketorolac Tromethamine (Toradol 30mg) 30 mg Q12H PRN IV Moderate Pain (Pain Scale 4-6) 12/15/16 16:00 12/20/16 15:59 12/15/16 17:12 Mirtazapine (Remeron) 7.5 mg BEDTIME ORAL 12/15/16 21:00 01/14/17 20:59 12/15/16 21:26 Morphine Sulfate (Morphine Sulfate) 2 mg Q4H PRN IVP Severe Pain (Pain Scale 7-10) 12/15/16 16:00 12/22/16 15:59 12/16/16 05:58 Nitroglycerin (Ntg) 0.4 mg Q5M X 3 DOSES PRN SL Prn Chest Pain 12/15/16 16:00 01/14/17 15:59 Ondansetron HCl (Zofran) 4 mg Q6H PRN IVP Nausea & Vomiting 12/15/16 16:00 01/14/17 15:59 Pantoprazole (Protonix) 40 mg DAILY ORAL 12/16/16 09:00 01/15/17 08:59 12/16/16 08:15 Polyethylene Glycol (Miralax) 17 gm HSPRN PRN ORAL Constipation 12/15/16 21:00 01/14/17 20:59 Pregabalin (Lyrica) 50 mg BID ORAL 12/15/16 18:00 01/14/17 17:59 12/16/16 08:14 Sodium Chloride (Sodium Chloride 1000ml bag) 1,000 ml @ 125 mls/hr Q8H IV 12/15/16 16:00 01/14/17 15:59 12/16/16 08:09 Temazepam (Restoril) 15 mg HSPRN PRN ORAL Insomnia 12/15/16 21:00 12/22/16 20:59 Allergies: Coded Allergies: No Known Allergies (Unverified , 04/24/14) ROS Limited/Unobtainable: No Constitutional: Reports: no symptoms HEENT: Reports: no symptoms Cardiovascular: Reports: no symptoms Respiratory: Reports: no symptoms Gastrointestinal/Abdominal: Reports: no symptoms Genitourinary: Reports: no symptoms Neurologic/Psychiatric: Reports: no symptoms Subjective 46 YO F admitted with diabetic ketoacidosis. Cover for Int Med-Dr Wilfred. Off insulin drip. Objective Last Vital Signs Date Time Temp Pulse Resp B/P Pulse Ox O2 Delivery O2 Flow Rate FiO2 12/16/16 08:11 96 159/88 12/16/16 08:00 97.5 20 99 Room Air 12/15/16 15:00 2.0 Laboratory Tests Test 12/16/16 05:50 White Blood Count 5.0 K/UL (4.8-10.8) Red Blood Count 2.84 M/UL (4.20-5.40) L Hemoglobin 8.8 G/DL (12.0-16.0) L Hematocrit 26.7 % (37.0-47.0) L Mean Corpuscular Volume 94 FL (80-99) Mean Corpuscular Hemoglobin 31.1 PG (27.0-31.0) H Mean Corpuscular Hemoglobin Concent 32.9 G/DL (32.0-36.0) Red Cell Distribution Width 15.6 % (11.6-14.8) H Platelet Count 200 K/UL (150-450) Mean Platelet Volume 6.5 FL (6.5-10.1) Neutrophils (%) (Auto) 41.9 % (45.0-75.0) L Lymphocytes (%) (Auto) 45.4 % (20.0-45.0) H Monocytes (%) (Auto) 8.7 % (1.0-10.0) Eosinophils (%) (Auto) 2.7 % (0.0-3.0) Basophils (%) (Auto) 1.4 % (0.0-2.0) Sodium Level 142 mEQ/L (135-145) Potassium Level 4.1 mEQ/L (3.4-4.9) Chloride Level 106 mEQ/L (98-107) Carbon Dioxide Level 26 mEQ/L (20-30) Anion Gap 10 (5-15) Blood Urea Nitrogen 19 mg/dL (7-23) Creatinine 1.5 mg/dL (0.5-0.9) H Estimat Glomerular Filtration Rate 45.5 mL/min (>60) Glucose Level 83 mg/dL (74-106) Calcium Level 7.7 mg/dL (8.6-10.2) L Phosphorus Level 2.5 mg/dL (2.5-4.8) Magnesium Level 2.0 mg/dL (1.7-2.5) Total Bilirubin < 0.2 mg/dL (0.0-1.2) Aspartate Amino Transf (AST/SGOT) 55 U/L (5-40) H Alanine Aminotransferase (ALT/SGPT) 24 U/L (3-33) Alkaline Phosphatase 83 U/L (35-104) Total Protein 5.2 g/dL (6.6-8.7) L Albumin 2.9 g/dL (3.5-5.2) L Globulin 2.3 g/dL Albumin/Globulin Ratio 1.2 (1.0-2.7) Microbiology Date/Time Source Procedure Growth Status 12/14/16 04:31 Nasal Nares MRSA Culture - Final NO METHICILLIN RESISTANT STAPH AUREUS... Complete 12/14/16 04:31 Rectum VRE Culture - Final NO VANCOMYCIN RESISTANT ENTEROCOCCUS ... Complete Intake and Output 12/15/16 12/16/16 19:00 07:00 Intake Total 1664.02 ml 1000 ml Balance 1664.02 ml 1000 ml Intake Oral 350 ml IV Total 1314.02 ml 1000 ml # Voids 1 1 Objective General: alert, cooperative, no distress, appears stated age Head: normocephalic, without obvious abnormality, atraumatic Eyes: conjunctivae/corneas clear. PERRL, EOM's intact Throat: lips, mucosa, and tongue normal. MMM Neck: supple, symmetrical, trachea midline, and no JVD Lungs: clear to auscultation bilaterally Heart: regular rate and rhythm, S1, S2 normal, no murmur, click, rub or gallop Abdomen: soft, non-tender, non-distended, bowel sounds normal; no masses or organomegaly Extremities: extremities normal, atraumatic, no cyanosis or edema Pulses: 2+ and symmetric Skin: skin color, texture, turgor normal; no rashes or lesions Neurologic: grossly normal, no focal deficits Assessment/Plan Problem List: (1) Hypertension Assessment & Plan: Continue norvasc. (2) Major depression Assessment & Plan: Continue remeron and lexapro. Await psych consult. (3) Nausea & vomiting Assessment & Plan: See GI note. (4) Diabetic ketoacidosis, type I Assessment & Plan: See endocrinology note. (5) Diabetes type 1, uncontrolled Assessment & Plan: See endocrinology note. D/C insulin drip. Continue levemir and novolog sliding scale. (6) Diabetic gastroparesis Assessment & Plan: Await GI consult. (7) GERD (gastroesophageal reflux disease) Assessment & Plan: Continue protonix Assessment/Plan Transfer to Med/Surg when stable. CHRISTOS JACOBSEN Dec 16, 2016 12:47
[2016-12-16 14:26] VITALS: BP 145/81
--- NOTE | 2016-12-16 14:46 | Consultation ---
History of Present Illness General Date patient seen: Dec 15, 2016 Chief Complaint: Abnormal Labs Referring physician: dr Hardin Reason for Consultation: internal medicine Present Illness HPI The patient is a 46-year-old female with a history of type 1 diabetes, who presents with chief complaint of elevated blood sugar. The patient was admitted to [facility] from 12/05/2016 through 12/08/2016. The patient was admitted with diabetic ketoacidosis. the was seen in the icu. the pt c/o depressed mood, decrease energy, anhedonia, poor sleep. the pt was evaluated in the presence of Sylvia BAÑUELOS. the pt denied si/hi. the pt denied manic/psychotic sxs. the pt stated that she has poor support sxs. the pt stated that her family member not helpful. the pt denied SI/HI. Allergies: Coded Allergies: No Known Allergies (Unverified , 04/24/14) Medication History Scheduled Amlodipine Besylate (Norvasc), 10 MG ORAL DAILY Escitalopram Oxalate* (Lexapro*), 20 MG ORAL DAILY, (Reported) Insulin Detemir (Levemir Flexpen), 18 SUBQ DAILY, (Reported) Meloxicam* (Meloxicam*), 15 MG PO DAILY, (Reported) Pantoprazole* (Protonix*), 40 MG ORAL DAILY, (Reported) Pregabalin (Lyrica), 50 MG PO BID, (Reported) Valsartan (Diovan), 160 MG ORAL BID Scheduled PRN Clonidine HCl (Clonidine HCl), 0.1 MG ORAL Q4H PRN Ibuprofen* (Motrin*), 600 MG ORAL Q6H PRN for For Pain, (Reported) Ondansetron Odt* (Zofran Odt*), 4 MG ORAL Q6H PRN for Nausea & Vomiting Miscellaneous Medications Insulin Lispro (Humalog), 0 SUBQ, (Reported) Potassium Chloride (Potassium Chloride), 10 MEQ PO, (Reported) Discontinued Medications Clonidine (Clonidine), 1 EACH TD, (Reported) Discontinued Reason: Pt stopped taking med Duloxetine (Cymbalta), 20 MG ORAL DAILY, (Reported) Discontinued Reason: Pt stopped taking med Insulin Detemir (Levemir Flexpen), 26 UNITS SUBQ BEFORE BREAKFAST Discontinued Reason: Medication dose changed Ondansetron* (Zofran*), 4 MG ORAL Q6H PRN for Nausea & Vomiting Discontinued Reason: Medication dose changed Pregabalin* (Lyrica*), 75 MG ORAL THREE TIMES A DAY, (Reported) Discontinued Reason: Medication dose changed Sucralfate* (Carafate*), 1 GM ORAL QID Discontinued Reason: Pt stopped taking med Patient History History Provided By: Patient, Medical Record, PMD Healthcare decision maker Resuscitation status Full Code Advanced Directive on File Past Medical/Surgical History Past Medical/Surgical History: (1) Chest pain (2) esophageal u (3) Diarrhea (4) Diarrhea (5) Britney esophagitis (6) Esophageal ulcer without bleeding (7) Dysphagia (8) SOB (shortness of breath) (9) Epigastric pain (10) Chest pain (11) Non-compliance with treatment (12) Hypophosphatemia (13) Encephalopathy (14) Hypophosphatemia (15) Renal failure (16) Esophageal ulcer (17) Esophagitis (18) Gastritis (19) Hypoalbuminemia (20) DKA (diabetic ketoacidoses) (21) Depression (22) PERLA (acute kidney injury) (23) Acidosis, metabolic (24) Dehydration (25) Hyperosmolar coma (26) Anemia (27) Diabetes (28) Diabetic ketoacidosis, type I (29) GERD (gastroesophageal reflux disease) (30) Hypertensive emergency (31) Major depression (32) Hypertension (33) Diabetic gastroparesis (34) HTN (hypertension) (35) Nausea & vomiting (36) Diabetes type 1, uncontrolled (37) Diabetic ketoacidosis, type I (38) Vomiting (39) ARF (acute renal failure) (40) Urinary retention (41) Oral candidiasis Review of Systems Constitutional: Reports: malaise, weakness Psychiatric: Reports: anxiety, depressed feelings, emotional problems, prior hx Physical Exam General Appearance: no apparent distress, alert, thin Neurologic: alert, oriented x 3, responsive, depressed affect Last 24 Hour Vital Signs Date Time Temp Pulse Resp B/P Pulse Ox O2 Delivery O2 Flow Rate FiO2 12/16/16 14:26 97.7 82 20 145/81 99 Room Air 12/16/16 12:00 97.7 82 20 145/81 99 Room Air 12/16/16 08:11 96 159/88 12/16/16 08:00 97.5 95 20 159/95 99 Room Air 12/16/16 07:21 99 Nasal Cannula 2.0 12/16/16 07:21 96 16 Nasal Cannula 2.0 12/16/16 07:21 Nasal Cannula 2.0 12/16/16 06:28 97.5 12/16/16 04:00 97.5 96 18 159/88 97 Room Air 12/15/16 20:00 97.0 92 17 110/69 97 Room Air 12/15/16 16:00 97.7 93 19 125/64 94 Room Air 12/15/16 15:00 94 18 128/63 100 Nasal Cannula 2.0 12/15/16 14:40 98.2 Intake and Output 12/15/16 12/16/16 19:00 07:00 Intake Total 1664.02 ml 1000 ml Balance 1664.02 ml 1000 ml Intake Oral 350 ml IV Total 1314.02 ml 1000 ml # Voids 1 1 Laboratory Tests Test 12/16/16 05:50 White Blood Count 5.0 K/UL (4.8-10.8) Red Blood Count 2.84 M/UL (4.20-5.40) L Hemoglobin 8.8 G/DL (12.0-16.0) L Hematocrit 26.7 % (37.0-47.0) L Mean Corpuscular Volume 94 FL (80-99) Mean Corpuscular Hemoglobin 31.1 PG (27.0-31.0) H Mean Corpuscular Hemoglobin Concent 32.9 G/DL (32.0-36.0) Red Cell Distribution Width 15.6 % (11.6-14.8) H Platelet Count 200 K/UL (150-450) Mean Platelet Volume 6.5 FL (6.5-10.1) Neutrophils (%) (Auto) 41.9 % (45.0-75.0) L Lymphocytes (%) (Auto) 45.4 % (20.0-45.0) H Monocytes (%) (Auto) 8.7 % (1.0-10.0) Eosinophils (%) (Auto) 2.7 % (0.0-3.0) Basophils (%) (Auto) 1.4 % (0.0-2.0) Sodium Level 142 mEQ/L (135-145) Potassium Level 4.1 mEQ/L (3.4-4.9) Chloride Level 106 mEQ/L (98-107) Carbon Dioxide Level 26 mEQ/L (20-30) Anion Gap 10 (5-15) Blood Urea Nitrogen 19 mg/dL (7-23) Creatinine 1.5 mg/dL (0.5-0.9) H Estimat Glomerular Filtration Rate 45.5 mL/min (>60) Glucose Level 83 mg/dL (74-106) Calcium Level 7.7 mg/dL (8.6-10.2) L Phosphorus Level 2.5 mg/dL (2.5-4.8) Magnesium Level 2.0 mg/dL (1.7-2.5) Total Bilirubin < 0.2 mg/dL (0.0-1.2) Aspartate Amino Transf (AST/SGOT) 55 U/L (5-40) H Alanine Aminotransferase (ALT/SGPT) 24 U/L (3-33) Alkaline Phosphatase 83 U/L (35-104) Total Protein 5.2 g/dL (6.6-8.7) L Albumin 2.9 g/dL (3.5-5.2) L Globulin 2.3 g/dL Albumin/Globulin Ratio 1.2 (1.0-2.7) Height (Feet): 5 Height (Inches): 4.00 Weight (Pounds): 132 Medications Current Medications Medications (Trade) Dose Ordered Sig/Lizbeth Route PRN Reason Start Time Stop Time Status Last Admin Dose Admin Acetaminophen (Tylenol) 650 mg Q4H PRN ORAL T>100.5 12/15/16 16:00 01/14/17 15:59 Al Hydroxide/Mg Hydroxide (Mylanta II) 30 ml Q6H PRN ORAL dyspepsia 12/15/16 16:00 01/14/17 15:59 Albuterol/ Ipratropium (DuoNeb 0.5-3(2.5)mg/3ml) 3 ml Q4H PRN HHN Shortness of Breath 12/15/16 16:00 12/20/16 15:59 Amlodipine Besylate (Norvasc) 10 mg DAILY ORAL 12/16/16 09:00 01/15/17 08:59 12/16/16 08:11 Clonidine HCl (Catapres) 0.1 mg Q4H PRN ORAL SBP>160 12/15/16 16:00 01/14/17 15:59 Dextrose (Dextrose 50%) STAT PRN IV Hypoglycemia 12/15/16 16:00 01/14/17 15:59 Escitalopram Oxalate (Lexapro) 20 mg DAILY ORAL 12/16/16 09:00 01/15/17 08:59 12/16/16 08:15 Heparin Sodium (Porcine) (Heparin 5000 units/ml) 5,000 units EVERY 12 HOURS SUBQ 12/15/16 21:00 01/14/17 20:59 12/16/16 08:17 Ibuprofen (Motrin) 600 mg Q12H PRN ORAL Mild Pain (Pain Scale 1-3) 12/15/16 16:00 01/14/17 15:59 Insulin Aspart (NovoLOG) BEFORE MEALS AND HS SUBQ 12/15/16 17:30 01/14/17 17:29 12/16/16 12:23 Insulin Aspart (NovoLOG) 5 units NOVOTIAC SUBQ 12/15/16 17:30 01/14/17 17:29 12/16/16 12:25 Insulin Detemir (Levemir) 18 units DAILY SUBQ 12/16/16 09:00 01/15/17 08:59 12/16/16 08:18 Ketorolac Tromethamine (Toradol 30mg) 30 mg Q12H PRN IV Moderate Pain (Pain Scale 4-6) 12/15/16 16:00 12/20/16 15:59 12/15/16 17:12 Mirtazapine (Remeron) 7.5 mg BEDTIME ORAL 12/15/16 21:00 01/14/17 20:59 12/15/16 21:26 Morphine Sulfate (Morphine Sulfate) 2 mg Q4H PRN IVP Severe Pain (Pain Scale 7-10) 12/15/16 16:00 12/22/16 15:59 12/16/16 05:58 Nitroglycerin (Ntg) 0.4 mg Q5M X 3 DOSES PRN SL Prn Chest Pain 12/15/16 16:00 01/14/17 15:59 Ondansetron HCl (Zofran) 4 mg Q6H PRN IVP Nausea & Vomiting 12/15/16 16:00 01/14/17 15:59 Pantoprazole (Protonix) 40 mg DAILY ORAL 12/16/16 09:00 01/15/17 08:59 12/16/16 08:15 Polyethylene Glycol (Miralax) 17 gm HSPRN PRN ORAL Constipation 12/15/16 21:00 01/14/17 20:59 Pregabalin (Lyrica) 50 mg BID ORAL 12/15/16 18:00 01/14/17 17:59 12/16/16 08:14 Sodium Chloride (Sodium Chloride 1000ml bag) 1,000 ml @ 125 mls/hr Q8H IV 12/15/16 16:00 01/14/17 15:59 12/16/16 08:09 Temazepam (Restoril) 15 mg HSPRN PRN ORAL Insomnia 12/15/16 21:00 12/22/16 20:59 Assessment/Plan Status: stable Assessment/Plan MDD recurrent mod -Lexapro 20mg po qam -will cont to follow Elisha Hardy M.D. Dec 16, 2016 14:46
--- NOTE | 2016-12-16 15:07 | General Progress Note ---
Assessment/Plan Assessment/Plan Assessment - Resolved N/V - DKA - Azotemia - constipation - anemia Recommendations - po as tolerated - dulcolax supp - follow labs - DM control Subjective Allergies: Coded Allergies: No Known Allergies (Unverified , 04/24/14) Subjective Feels better today no N/V tolerating PO constipated Objective Last 24 Hour Vital Signs Date Time Temp Pulse Resp B/P Pulse Ox O2 Delivery O2 Flow Rate FiO2 12/16/16 14:26 97.7 82 20 145/81 99 Room Air 12/16/16 12:00 97.7 82 20 145/81 99 Room Air 12/16/16 08:11 96 159/88 12/16/16 08:00 97.5 95 20 159/95 99 Room Air 12/16/16 07:21 99 Nasal Cannula 2.0 12/16/16 07:21 96 16 Nasal Cannula 2.0 12/16/16 07:21 Nasal Cannula 2.0 12/16/16 06:28 97.5 12/16/16 04:00 97.5 96 18 159/88 97 Room Air 12/15/16 20:00 97.0 92 17 110/69 97 Room Air 12/15/16 16:00 97.7 93 19 125/64 94 Room Air Intake and Output 12/15/16 12/16/16 19:00 07:00 Intake Total 1664.02 ml 1000 ml Balance 1664.02 ml 1000 ml Intake Oral 350 ml IV Total 1314.02 ml 1000 ml # Voids 1 1 Laboratory Tests 12/16/16 05:50: White Blood Count 5.0, Red Blood Count 2.84L, Hemoglobin 8.8L, Hematocrit 26.7L , Mean Corpuscular Volume 94, Mean Corpuscular Hemoglobin 31.1H, Mean Corpuscular Hemoglobin Concent 32.9, Red Cell Distribution Width 15.6H, Platelet Count 200, Mean Platelet Volume 6.5, Neutrophils (%) (Auto) 41.9L, Lymphocytes (%) (Auto) 45.4H, Monocytes (%) (Auto) 8.7, Eosinophils (%) (Auto) 2.7, Basophils (%) (Auto) 1.4, Sodium Level 142, Potassium Level 4.1, Chloride Level 106, Carbon Dioxide Level 26, Anion Gap 10, Blood Urea Nitrogen 19, Creatinine 1.5H, Estimat Glomerular Filtration Rate 45.5, Glucose Level 83, Calcium Level 7.7L, Phosphorus Level 2.5, Magnesium Level 2.0, Total Bilirubin < 0.2, Aspartate Amino Transf (AST/SGOT) 55H, Alanine Aminotransferase (ALT/SGPT ) 24, Alkaline Phosphatase 83, Total Protein 5.2L, Albumin 2.9L, Globulin 2.3, Albumin/Globulin Ratio 1.2 Height (Feet): 5 Height (Inches): 4.00 Weight (Pounds): 132 Objective WDWN NCAT supple CTA RRR Soft NT ND no edema non focal NENA MAGAÑA Dec 16, 2016 15:07
[2016-12-16 16:33] VITALS: BP 131/74
[2016-12-16 20:00] VITALS: BP 147/77
[2016-12-16] MEDS ORDERED: Norco 5mg/325mg tab ORAL PRN (22:45)
[2016-12-16] MEDS ORDERED: Norco 10mg/325mg tab ORAL PRN (22:45)
[2016-12-17] VITALS (7 sets, daily range): BP systolic 131–159; BP diastolic 59–96
[2016-12-17] MEDS: NovoLOG Insulin Flexpen SUBQ SCH ×8 (06:16→21:40)
--- NOTE | 2016-12-17 07:30 | General Progress Note ---
Assessment/Plan Problem List: (1) Diabetic ketoacidosis, type I ICD Codes: E10.10 - Ketoacidosis in patient with type 1 diabetes mellitus SNOMED: 503112909 (2) GERD (gastroesophageal reflux disease) ICD Codes: K21.9 - Gastro-esophageal reflux disease without esophagitis SNOMED: 639084235 (3) PERLA (acute kidney injury) ICD Codes: N17.9 - Acute kidney failure, unspecified SNOMED: 94046273 (4) Diabetes type 1, uncontrolled ICD Codes: E10.65 - Type 1 diabetes mellitus with hyperglycemia SNOMED: 821732194, 637929785 Qualifiers: Qualified Codes: E10.8 - Type 1 diabetes mellitus with unspecified complications; E10.65 - Type 1 diabetes mellitus with hyperglycemia Assessment/Plan BG values improved she is Type 1 therefore labile glucose is expected - Levemir 18 units daily - Novolog 5 units ac tid + SSI Subjective Allergies: Coded Allergies: No Known Allergies (Unverified , 04/24/14) All Systems: reviewed and negative except above Subjective events noted - interval notes reviewed Objective Last 24 Hour Vital Signs Date Time Temp Pulse Resp B/P Pulse Ox O2 Delivery O2 Flow Rate FiO2 12/17/16 04:00 98.0 92 18 131/59 94 Nasal Cannula 0.5 12/17/16 00:00 98.0 86 18 141/80 97 Room Air 12/16/16 20:00 97.9 92 18 147/77 100 Nasal Cannula 4.0 12/16/16 19:46 99 Nasal Cannula 2.0 12/16/16 19:46 Nasal Cannula 2.0 12/16/16 19:45 84 16 Nasal Cannula 2.0 12/16/16 16:33 97.3 82 18 131/74 98 Nasal Cannula 1.0 12/16/16 14:26 97.7 82 20 145/81 99 Room Air 12/16/16 12:00 97.7 82 20 145/81 99 Room Air 12/16/16 08:11 96 159/88 12/16/16 08:00 97.5 95 20 159/95 99 Room Air Intake and Output 12/16/16 12/17/16 19:00 07:00 Intake Total 1445 ml Balance 1445 ml Intake Oral 320 ml IV Total 1125 ml # Voids 3 # Bowel Movements 1 Height (Feet): 5 Height (Inches): 4.00 Weight (Pounds): 132 General Appearance: no apparent distress EENT: PERRL/EOMI Neck: normal alignment Cardiovascular: normal rate Respiratory/Chest: lungs clear Abdomen: normal bowel sounds Pelvis: normal external exam Edema: no edema noted Arm (L), no edema noted Arm (R), no edema noted Leg (L), no edema noted Leg (R), no edema noted Pedal (L), no edema noted Pedal (R), no edema noted Generalized Objective Current Medications Medications (Trade) Dose Ordered Sig/Lizbeth Route PRN Reason Start Time Stop Time Status Last Admin Dose Admin Acetaminophen (Tylenol) 650 mg Q4H PRN ORAL T>100.5 12/15/16 16:00 01/14/17 15:59 Acetaminophen/ Hydrocodone Bitart (Preston 10/325) 1 ea Q4H PRN ORAL Severe Pain (Pain Scale 7-10) 12/16/16 22:45 12/23/16 22:44 Acetaminophen/ Hydrocodone Bitart (Preston 5/325) 1 tab Q4H PRN ORAL Moderate Pain (Pain Scale 4-6) 12/16/16 22:45 12/23/16 22:44 Al Hydroxide/Mg Hydroxide (Mylanta II) 30 ml Q6H PRN ORAL dyspepsia 12/15/16 16:00 01/14/17 15:59 Albuterol/ Ipratropium (DuoNeb 0.5-3(2.5)mg/3ml) 3 ml Q4H PRN HHN Shortness of Breath 12/15/16 16:00 12/20/16 15:59 Amlodipine Besylate (Norvasc) 10 mg DAILY ORAL 12/16/16 09:00 01/15/17 08:59 12/16/16 08:11 Clonidine HCl (Catapres) 0.1 mg Q4H PRN ORAL SBP>160 12/15/16 16:00 01/14/17 15:59 Dextrose (Dextrose 50%) STAT PRN IV Hypoglycemia 12/15/16 16:00 01/14/17 15:59 Escitalopram Oxalate (Lexapro) 20 mg DAILY ORAL 12/16/16 09:00 01/15/17 08:59 12/16/16 08:15 Heparin Sodium (Porcine) (Heparin 5000 units/ml) 5,000 units EVERY 12 HOURS SUBQ 12/15/16 21:00 01/14/17 20:59 12/16/16 20:36 Ibuprofen (Motrin) 600 mg Q12H PRN ORAL Mild Pain (Pain Scale 1-3) 12/15/16 16:00 01/14/17 15:59 Insulin Aspart (NovoLOG) BEFORE MEALS AND HS SUBQ 12/15/16 17:30 01/14/17 17:29 12/17/16 06:16 Insulin Aspart (NovoLOG) 5 units NOVOTIAC SUBQ 12/15/16 17:30 01/14/17 17:29 12/17/16 06:18 Insulin Detemir (Levemir) 18 units DAILY SUBQ 12/16/16 09:00 01/15/17 08:59 12/16/16 08:18 Ketorolac Tromethamine (Toradol 30mg) 30 mg Q12H PRN IV Moderate Pain (Pain Scale 4-6) 12/15/16 16:00 12/20/16 15:59 12/15/16 17:12 Mirtazapine (Remeron) 7.5 mg BEDTIME ORAL 12/15/16 21:00 01/14/17 20:59 12/16/16 20:35 Morphine Sulfate (Morphine Sulfate) 2 mg Q4H PRN IVP Severe Pain (Pain Scale 7-10) 12/15/16 16:00 12/22/16 15:59 12/16/16 05:58 Nitroglycerin (Ntg) 0.4 mg Q5M X 3 DOSES PRN SL Prn Chest Pain 12/15/16 16:00 01/14/17 15:59 Ondansetron HCl (Zofran) 4 mg Q6H PRN IVP Nausea & Vomiting 12/15/16 16:00 01/14/17 15:59 Pantoprazole (Protonix) 40 mg DAILY ORAL 12/16/16 09:00 01/15/17 08:59 12/16/16 08:15 Polyethylene Glycol (Miralax) 17 gm HSPRN PRN ORAL Constipation 12/15/16 21:00 01/14/17 20:59 Pregabalin (Lyrica) 50 mg BID ORAL 12/15/16 18:00 01/14/17 17:59 12/16/16 17:54 Temazepam (Restoril) 15 mg HSPRN PRN ORAL Insomnia 12/15/16 21:00 12/22/16 20:59 12/17/16 02:53 Item Value Date Time Bedside Blood Glucose 342 mg/dl H 12/17/16 0630 Bedside Blood Glucose 97 mg/dl 12/16/16 2100 Bedside Blood Glucose 80 mg/dl 12/16/16 1755 Bedside Blood Glucose 118 mg/dl 12/16/16 1225 Bedside Blood Glucose 79 mg/dl 12/16/16 0818 Bedside Blood Glucose 79 mg/dl 12/16/16 0611 IVY SULLIVAN Dec 17, 2016 07:30
[2016-12-17] MEDS: Lyrica 50mg cap ORAL SCH ×2 (08:45→18:46)
[2016-12-17] MEDS: Heparin 5000 units/ml inj SUBQ SCH ×3 (08:47→21:00)
[2016-12-17 08:49] LABS: BASOPHILS % (AUTO) 1.1 % (0.0-2.0); EOSINOPHILS % (AUTO) 2.3 % (0.0-3.0); LYMPHOCYTES % (AUTO) 33.9 % (20.0-45.0); MEAN CORPUSCULAR HEMOGLOBIN 30.8 PG (27.0-31.0); MEAN CORPUSCULAR HGB CONC 31.7 G/DL (32.0-36.0); MEAN CORPUSCULAR VOLUME 97 FL (80-99); MEAN PLATELET VOLUME 7.4 FL (6.5-10.1); MONOCYTES % (AUTO) 4.9 % (1.0-10.0); NEUTROPHILS % (AUTO) 57.8 % (45.0-75.0); PLATELET COUNT 237 K/UL (150-450); RED BLOOD COUNT 3.74 M/UL (4.20-5.40); WHITE BLOOD COUNT 5.2 K/UL (4.8-10.8)
[2016-12-17] MEDS: Levemir Flexpen SUBQ SCH (08:51)
[2016-12-17 08:53] LABS: CALCIUM 8.8 mg/dL (8.6-10.2); CREATININE 1.2 mg/dL (0.5-0.9); GLOMERULAR FILTRATION RATE 58.9 mL/min (>60)
[2016-12-17] MEDS ORDERED: Tubing IV Secondary IV ONE (09:04)
--- NOTE | 2016-12-17 09:05 | Internal Med Progress Note ---
Subjective Date of Service: Dec 17, 2016 Physician Name Christos Jacobsen Attending Physician Aries Hardin MD Current Medications Medications (Trade) Dose Ordered Sig/Lizbeth Route PRN Reason Start Time Stop Time Status Last Admin Dose Admin Acetaminophen (Tylenol) 650 mg Q4H PRN ORAL T>100.5 12/15/16 16:00 01/14/17 15:59 Acetaminophen/ Hydrocodone Bitart ([place] 10/325) 1 ea Q4H PRN ORAL Severe Pain (Pain Scale 7-10) 12/16/16 22:45 12/23/16 22:44 Acetaminophen/ Hydrocodone Bitart ([place] 5/325) 1 tab Q4H PRN ORAL Moderate Pain (Pain Scale 4-6) 12/16/16 22:45 12/23/16 22:44 Al Hydroxide/Mg Hydroxide (Mylanta II) 30 ml Q6H PRN ORAL dyspepsia 12/15/16 16:00 01/14/17 15:59 Albuterol/ Ipratropium (DuoNeb 0.5-3(2.5)mg/3ml) 3 ml Q4H PRN HHN Shortness of Breath 12/15/16 16:00 12/20/16 15:59 Amlodipine Besylate (Norvasc) 10 mg DAILY ORAL 12/16/16 09:00 01/15/17 08:59 12/17/16 08:44 Clonidine HCl (Catapres) 0.1 mg Q4H PRN ORAL SBP>160 12/15/16 16:00 01/14/17 15:59 Dextrose (Dextrose 50%) STAT PRN IV Hypoglycemia 12/15/16 16:00 01/14/17 15:59 Escitalopram Oxalate (Lexapro) 20 mg DAILY ORAL 12/16/16 09:00 01/15/17 08:59 12/17/16 08:44 Heparin Sodium (Porcine) (Heparin 5000 units/ml) 5,000 units EVERY 12 HOURS SUBQ 12/15/16 21:00 01/14/17 20:59 12/16/16 20:36 Ibuprofen (Motrin) 600 mg Q12H PRN ORAL Mild Pain (Pain Scale 1-3) 12/15/16 16:00 01/14/17 15:59 Insulin Aspart (NovoLOG) BEFORE MEALS AND HS SUBQ 12/15/16 17:30 01/14/17 17:29 12/17/16 06:16 Insulin Aspart (NovoLOG) 5 units NOVOTIAC SUBQ 12/15/16 17:30 01/14/17 17:29 12/17/16 06:18 Insulin Detemir (Levemir) 18 units DAILY SUBQ 12/16/16 09:00 01/15/17 08:59 12/17/16 08:51 Ketorolac Tromethamine (Toradol 30mg) 30 mg Q12H PRN IV Moderate Pain (Pain Scale 4-6) 12/15/16 16:00 12/20/16 15:59 12/15/16 17:12 Mirtazapine (Remeron) 7.5 mg BEDTIME ORAL 12/15/16 21:00 01/14/17 20:59 12/16/16 20:35 Morphine Sulfate (Morphine Sulfate) 2 mg Q4H PRN IVP Severe Pain (Pain Scale 7-10) 12/15/16 16:00 12/22/16 15:59 12/16/16 05:58 Nitroglycerin (Ntg) 0.4 mg Q5M X 3 DOSES PRN SL Prn Chest Pain 12/15/16 16:00 01/14/17 15:59 Ondansetron HCl (Zofran) 4 mg Q6H PRN IVP Nausea & Vomiting 12/15/16 16:00 01/14/17 15:59 Pantoprazole (Protonix) 40 mg DAILY ORAL 12/16/16 09:00 01/15/17 08:59 12/17/16 08:44 Polyethylene Glycol (Miralax) 17 gm HSPRN PRN ORAL Constipation 12/15/16 21:00 01/14/17 20:59 Pregabalin (Lyrica) 50 mg BID ORAL 12/15/16 18:00 01/14/17 17:59 12/17/16 08:45 Temazepam (Restoril) 15 mg HSPRN PRN ORAL Insomnia 12/15/16 21:00 12/22/16 20:59 12/17/16 02:53 Allergies: Coded Allergies: No Known Allergies (Unverified , 04/24/14) ROS Limited/Unobtainable: No Constitutional: Reports: no symptoms HEENT: Reports: no symptoms Cardiovascular: Reports: no symptoms Respiratory: Reports: no symptoms Gastrointestinal/Abdominal: Reports: no symptoms Genitourinary: Reports: no symptoms Neurologic/Psychiatric: Reports: no symptoms Subjective 46 YO F admitted with diabetic ketoacidosis. Cover for Int Alejo-Dr Hardin. Fingerstick still greater than 300 Objective Last Vital Signs Date Time Temp Pulse Resp B/P Pulse Ox O2 Delivery O2 Flow Rate FiO2 12/17/16 08:44 101 159/96 12/17/16 08:24 97.7 20 99 Room Air 12/17/16 04:00 0.5 Laboratory Tests Test 12/17/16 08:05 White Blood Count 5.2 K/UL (4.8-10.8) Red Blood Count 3.74 M/UL (4.20-5.40) L Hemoglobin 11.5 G/DL (12.0-16.0) #L Hematocrit 36.5 % (37.0-47.0) #L Mean Corpuscular Volume 97 FL (80-99) Mean Corpuscular Hemoglobin 30.8 PG (27.0-31.0) Mean Corpuscular Hemoglobin Concent 31.7 G/DL (32.0-36.0) L Red Cell Distribution Width 16.0 % (11.6-14.8) H Platelet Count 237 K/UL (150-450) Mean Platelet Volume 7.4 FL (6.5-10.1) Neutrophils (%) (Auto) 57.8 % (45.0-75.0) Lymphocytes (%) (Auto) 33.9 % (20.0-45.0) Monocytes (%) (Auto) 4.9 % (1.0-10.0) Eosinophils (%) (Auto) 2.3 % (0.0-3.0) Basophils (%) (Auto) 1.1 % (0.0-2.0) Sodium Level 142 mEQ/L (135-145) Potassium Level 4.0 mEQ/L (3.4-4.9) Chloride Level 100 mEQ/L (98-107) Carbon Dioxide Level 27 mEQ/L (20-30) Anion Gap 15 (5-15) Blood Urea Nitrogen 15 mg/dL (7-23) Creatinine 1.2 mg/dL (0.5-0.9) H Estimat Glomerular Filtration Rate 58.9 mL/min (>60) Glucose Level 331 mg/dL (74-106) #H Calcium Level 8.8 mg/dL (8.6-10.2) Intake and Output 12/16/16 12/17/16 19:00 07:00 Intake Total 1445 ml Balance 1445 ml Intake Oral 320 ml IV Total 1125 ml # Voids 3 # Bowel Movements 1 Objective General: alert, cooperative, no distress, appears stated age Head: normocephalic, without obvious abnormality, atraumatic Eyes: conjunctivae/corneas clear. PERRL, EOM's intact Throat: lips, mucosa, and tongue normal. MMM Neck: supple, symmetrical, trachea midline, and no JVD Lungs: clear to auscultation bilaterally Heart: regular rate and rhythm, S1, S2 normal, no murmur, click, rub or gallop Abdomen: soft, non-tender, non-distended, bowel sounds normal; no masses or organomegaly Extremities: extremities normal, atraumatic, no cyanosis or edema Pulses: 2+ and symmetric Skin: skin color, texture, turgor normal; no rashes or lesions Neurologic: grossly normal, no focal deficits Assessment/Plan Problem List: (1) Hypertension Assessment & Plan: Continue norvasc. (2) Major depression Assessment & Plan: Continue remeron and lexapro. See psych consult. (3) Nausea & vomiting Assessment & Plan: See GI note. (4) Diabetic ketoacidosis, type I Assessment & Plan: See endocrinology note. (5) Diabetes type 1, uncontrolled Assessment & Plan: See endocrinology note. D/C insulin drip. Continue levemir and novolog sliding scale. (6) Diabetic gastroparesis Assessment & Plan: See GI consult. (7) GERD (gastroesophageal reflux disease) Assessment & Plan: Continue protonix Status: progressing CHRISTOS JACOBSEN Dec 17, 2016 09:05
--- NOTE | 2016-12-17 13:07 | Pulmonology Progress Note ---
Assessment/Plan Problems: (1) Diabetic ketoacidosis, type I Assessment/Plan improving might go home if ok with Endo - Levemir 18 units daily - Novolog 5 units ac tid + SSI Subjective ROS Limited/Unobtainable: No Constitutional: Reports: no symptoms HEENT: Repors: no symptoms Respiratory: Reports: no symptoms Allergies: Coded Allergies: No Known Allergies (Unverified , 04/24/14) Objective Last 24 Hour Vital Signs Date Time Temp Pulse Resp B/P Pulse Ox O2 Delivery O2 Flow Rate FiO2 12/17/16 11:56 98.1 92 20 159/90 100 Nasal Cannula 2.0 12/17/16 08:44 101 159/96 12/17/16 08:40 Nasal Cannula 2.0 12/17/16 08:40 94 16 Nasal Cannula 2.0 12/17/16 08:40 98 Nasal Cannula 2.0 12/17/16 08:24 97.7 101 20 159/96 99 Room Air 12/17/16 08:00 97.7 101 20 159/96 99 Room Air 12/17/16 04:00 98.0 92 18 131/59 94 Nasal Cannula 0.5 12/17/16 00:00 98.0 86 18 141/80 97 Room Air 12/16/16 20:00 97.9 92 18 147/77 100 Nasal Cannula 4.0 12/16/16 19:46 99 Nasal Cannula 2.0 12/16/16 19:46 Nasal Cannula 2.0 12/16/16 19:45 84 16 Nasal Cannula 2.0 12/16/16 16:33 97.3 82 18 131/74 98 Nasal Cannula 1.0 12/16/16 14:26 97.7 82 20 145/81 99 Room Air Intake and Output 12/16/16 12/17/16 19:00 07:00 Intake Total 1445 ml Balance 1445 ml Intake Oral 320 ml IV Total 1125 ml # Voids 3 # Bowel Movements 1 General Appearance: WD/WN HEENT: normocephalic, atraumatic Respiratory/Chest: chest wall non-tender, lungs clear Breasts: no masses Cardiovascular: normal peripheral pulses, normal rate, regularly irregular Abdomen: normal bowel sounds, soft, non tender, no scars Skin: no rash 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 Laboratory Tests 12/17/16 08:05: White Blood Count 5.2, Red Blood Count 3.74L, Hemoglobin 11.5#L, Hematocrit 36.5 #L, Mean Corpuscular Volume 97, Mean Corpuscular Hemoglobin 30.8, Mean Corpuscular Hemoglobin Concent 31.7L, Red Cell Distribution Width 16.0H, Platelet Count 237, Mean Platelet Volume 7.4, Neutrophils (%) (Auto) 57.8, Lymphocytes (%) (Auto) 33.9, Monocytes (%) (Auto) 4.9, Eosinophils (%) (Auto) 2.3, Basophils (%) (Auto) 1.1, Sodium Level 142, Potassium Level 4.0, Chloride Level 100, Carbon Dioxide Level 27, Anion Gap 15, Blood Urea Nitrogen 15, Creatinine 1.2H, Estimat Glomerular Filtration Rate 58.9, Glucose Level 331#H, Calcium Level 8.8 Current Medications Medications (Trade) Dose Ordered Sig/Lizbeth Route PRN Reason Start Time Stop Time Status Last Admin Dose Admin Acetaminophen (Tylenol) 650 mg Q4H PRN ORAL T>100.5 12/15/16 16:00 01/14/17 15:59 Acetaminophen/ Hydrocodone Bitart ([place] 10/325) 1 ea Q4H PRN ORAL Severe Pain (Pain Scale 7-10) 12/16/16 22:45 12/23/16 22:44 Acetaminophen/ Hydrocodone Bitart ([place] 5/325) 1 tab Q4H PRN ORAL Moderate Pain (Pain Scale 4-6) 12/16/16 22:45 12/23/16 22:44 Al Hydroxide/Mg Hydroxide (Mylanta II) 30 ml Q6H PRN ORAL dyspepsia 12/15/16 16:00 01/14/17 15:59 Albuterol/ Ipratropium (DuoNeb 0.5-3(2.5)mg/3ml) 3 ml Q4H PRN HHN Shortness of Breath 12/15/16 16:00 12/20/16 15:59 Amlodipine Besylate (Norvasc) 10 mg DAILY ORAL 12/16/16 09:00 01/15/17 08:59 12/17/16 08:44 Clonidine HCl (Catapres) 0.1 mg Q4H PRN ORAL SBP>160 12/15/16 16:00 01/14/17 15:59 Dextrose (Dextrose 50%) STAT PRN IV Hypoglycemia 12/15/16 16:00 01/14/17 15:59 Escitalopram Oxalate (Lexapro) 20 mg DAILY ORAL 12/16/16 09:00 01/15/17 08:59 12/17/16 08:44 Heparin Sodium (Porcine) (Heparin 5000 units/ml) 5,000 units EVERY 12 HOURS SUBQ 12/15/16 21:00 01/14/17 20:59 12/16/16 20:36 Ibuprofen (Motrin) 600 mg Q12H PRN ORAL Mild Pain (Pain Scale 1-3) 12/15/16 16:00 01/14/17 15:59 Insulin Aspart (NovoLOG) BEFORE MEALS AND HS SUBQ 12/15/16 17:30 01/14/17 17:29 12/17/16 12:50 Insulin Aspart (NovoLOG) 5 units NOVOTIAC SUBQ 12/15/16 17:30 01/14/17 17:29 12/17/16 12:48 Insulin Detemir (Levemir) 18 units DAILY SUBQ 12/16/16 09:00 01/15/17 08:59 12/17/16 08:51 Ketorolac Tromethamine (Toradol 30mg) 30 mg Q12H PRN IV Moderate Pain (Pain Scale 4-6) 12/15/16 16:00 12/20/16 15:59 12/15/16 17:12 Mirtazapine (Remeron) 7.5 mg BEDTIME ORAL 12/15/16 21:00 01/14/17 20:59 12/16/16 20:35 Morphine Sulfate (Morphine Sulfate) 2 mg Q4H PRN IVP Severe Pain (Pain Scale 7-10) 12/15/16 16:00 12/22/16 15:59 12/16/16 05:58 Nitroglycerin (Ntg) 0.4 mg Q5M X 3 DOSES PRN SL Prn Chest Pain 12/15/16 16:00 01/14/17 15:59 Ondansetron HCl (Zofran) 4 mg Q6H PRN IVP Nausea & Vomiting 12/15/16 16:00 01/14/17 15:59 Pantoprazole (Protonix) 40 mg DAILY ORAL 12/16/16 09:00 01/15/17 08:59 12/17/16 08:44 Polyethylene Glycol (Miralax) 17 gm HSPRN PRN ORAL Constipation 12/15/16 21:00 01/14/17 20:59 Pregabalin (Lyrica) 50 mg BID ORAL 12/15/16 18:00 01/14/17 17:59 12/17/16 08:45 Temazepam (Restoril) 15 mg HSPRN PRN ORAL Insomnia 12/15/16 21:00 12/22/16 20:59 12/17/16 02:53 VANESSA SAGASTUME Dec 17, 2016 13:07
--- NOTE | 2016-12-17 13:55 | GI Progress Note ---
Assessment/Plan Problems: (1) Hypoalbuminemia ICD Codes: E88.09 - Other disorders of plasma-protein metabolism, not elsewhere classified SNOMED: 922812296 (2) Diabetic gastroparesis ICD Codes: E11.43 - Diabetic gastroparesis SNOMED: 66634902 (3) Diabetes ICD Codes: E11.9 - Type 2 diabetes mellitus without complications SNOMED: 74154826 (4) Anemia ICD Codes: D64.9 - Anemia, unspecified SNOMED: 948602001 (5) Dehydration ICD Codes: E86.0 - Dehydration SNOMED: 98440354 Status: stable Status Narrative Discussed with Dr. Patel. Assessment/Plan Assessment - Resolved N/V - DKA - Azotemia - constipation - anemia Recommendations - po as tolerated - dulcolax supp - DM control - consider reglan if patient has persistent vomiting - fu labs Subjective Gastrointestinal/Abdominal: Reports: no symptoms Subjective denies N/V/D Objective Last 24 Hour Vital Signs Date Time Temp Pulse Resp B/P Pulse Ox O2 Delivery O2 Flow Rate FiO2 12/17/16 11:56 98.1 92 20 159/90 100 Nasal Cannula 2.0 12/17/16 08:44 101 159/96 12/17/16 08:40 Nasal Cannula 2.0 12/17/16 08:40 94 16 Nasal Cannula 2.0 12/17/16 08:40 98 Nasal Cannula 2.0 12/17/16 08:24 97.7 101 20 159/96 99 Room Air 12/17/16 08:00 97.7 101 20 159/96 99 Room Air 12/17/16 04:00 98.0 92 18 131/59 94 Nasal Cannula 0.5 12/17/16 00:00 98.0 86 18 141/80 97 Room Air 12/16/16 20:00 97.9 92 18 147/77 100 Nasal Cannula 4.0 12/16/16 19:46 99 Nasal Cannula 2.0 12/16/16 19:46 Nasal Cannula 2.0 12/16/16 19:45 84 16 Nasal Cannula 2.0 12/16/16 16:33 97.3 82 18 131/74 98 Nasal Cannula 1.0 12/16/16 14:26 97.7 82 20 145/81 99 Room Air Intake and Output 12/16/16 12/17/16 19:00 07:00 Intake Total 1445 ml Balance 1445 ml Intake Oral 320 ml IV Total 1125 ml # Voids 3 # Bowel Movements 1 Laboratory Tests Test 12/17/16 08:05 White Blood Count 5.2 K/UL (4.8-10.8) Red Blood Count 3.74 M/UL (4.20-5.40) L Hemoglobin 11.5 G/DL (12.0-16.0) #L Hematocrit 36.5 % (37.0-47.0) #L Mean Corpuscular Volume 97 FL (80-99) Mean Corpuscular Hemoglobin 30.8 PG (27.0-31.0) Mean Corpuscular Hemoglobin Concent 31.7 G/DL (32.0-36.0) L Red Cell Distribution Width 16.0 % (11.6-14.8) H Platelet Count 237 K/UL (150-450) Mean Platelet Volume 7.4 FL (6.5-10.1) Neutrophils (%) (Auto) 57.8 % (45.0-75.0) Lymphocytes (%) (Auto) 33.9 % (20.0-45.0) Monocytes (%) (Auto) 4.9 % (1.0-10.0) Eosinophils (%) (Auto) 2.3 % (0.0-3.0) Basophils (%) (Auto) 1.1 % (0.0-2.0) Sodium Level 142 mEQ/L (135-145) Potassium Level 4.0 mEQ/L (3.4-4.9) Chloride Level 100 mEQ/L (98-107) Carbon Dioxide Level 27 mEQ/L (20-30) Anion Gap 15 (5-15) Blood Urea Nitrogen 15 mg/dL (7-23) Creatinine 1.2 mg/dL (0.5-0.9) H Estimat Glomerular Filtration Rate 58.9 mL/min (>60) Glucose Level 331 mg/dL (74-106) #H Calcium Level 8.8 mg/dL (8.6-10.2) Height (Feet): 5 Height (Inches): 4.00 Weight (Pounds): 132 General Appearance: no apparent distress, alert Cardiovascular: normal rate Respiratory/Chest: normal breath sounds Abdominal Exam: normal bowel sounds, non tender, soft Extremities: normal range of motion Hart,Venus Eladio N.P. Dec 17, 2016 13:55
[2016-12-17] MEDS ORDERED: NovoLOG Insulin Flexpen SUBQ ONE (22:00)
[2016-12-18] VITALS (13 sets, daily range): BP systolic 120–159; BP diastolic 54–92
[2016-12-18] MEDS: NovoLOG Insulin Flexpen SUBQ SCH ×3 (06:48→12:15)
[2016-12-18 07:19] LABS: BASOPHILS % (AUTO) 1.5 % (0.0-2.0); EOSINOPHILS % (AUTO) 2.5 % (0.0-3.0); LYMPHOCYTES % (AUTO) 27.1 % (20.0-45.0); MEAN CORPUSCULAR HEMOGLOBIN 30.2 PG (27.0-31.0); MEAN CORPUSCULAR HGB CONC 31.4 G/DL (32.0-36.0); MEAN CORPUSCULAR VOLUME 96 FL (80-99); MEAN PLATELET VOLUME 6.8 FL (6.5-10.1); MONOCYTES % (AUTO) 6.5 % (1.0-10.0); NEUTROPHILS % (AUTO) 62.4 % (45.0-75.0); PLATELET COUNT 257 K/UL (150-450); RED BLOOD COUNT 3.67 M/UL (4.20-5.40); WHITE BLOOD COUNT 5.3 K/UL (4.8-10.8)
--- NOTE | 2016-12-18 07:40 | General Progress Note ---
Assessment/Plan Problem List: (1) Diabetic ketoacidosis, type I ICD Codes: E10.10 - Ketoacidosis in patient with type 1 diabetes mellitus SNOMED: 710676542 (2) GERD (gastroesophageal reflux disease) ICD Codes: K21.9 - Gastro-esophageal reflux disease without esophagitis SNOMED: 912961947 (3) PERLA (acute kidney injury) ICD Codes: N17.9 - Acute kidney failure, unspecified SNOMED: 53792571 (4) Diabetes type 1, uncontrolled ICD Codes: E10.65 - Type 1 diabetes mellitus with hyperglycemia SNOMED: 023333315, 358786116 Qualifiers: Qualified Codes: E10.8 - Type 1 diabetes mellitus with unspecified complications; E10.65 - Type 1 diabetes mellitus with hyperglycemia Assessment/Plan BG values very high she is Type 1 therefore labile glucose is expected - increase Levemir 18 to 24 units daily - increase Novolog 5 to 8 units ac tid + SSI - she needs IVF but unfortunately multiple attempts to establish IV access were unsuccessful - no concentrated sweets Subjective Allergies: Coded Allergies: No Known Allergies (Unverified , 04/24/14) All Systems: reviewed and negative except above Subjective she feels fine - night sweats last night glucose was extremely high yesterday diet is not diabetic all scheduled insulin administered as ordered Objective Last 24 Hour Vital Signs Date Time Temp Pulse Resp B/P Pulse Ox O2 Delivery O2 Flow Rate FiO2 12/18/16 04:00 98.1 93 18 140/67 100 Room Air 12/18/16 00:00 98.4 92 18 129/68 99 Room Air 12/17/16 20:05 91 16 Nasal Cannula 2.0 12/17/16 20:05 Nasal Cannula 2.0 12/17/16 20:05 98 Nasal Cannula 2.0 12/17/16 20:00 98.8 103 18 147/88 98 Nasal Cannula 1.0 12/17/16 16:13 98.1 100 21 148/92 97 Nasal Cannula 2.0 12/17/16 11:56 98.1 92 20 159/90 100 Nasal Cannula 2.0 12/17/16 08:44 101 159/96 12/17/16 08:40 Nasal Cannula 2.0 12/17/16 08:40 94 16 Nasal Cannula 2.0 12/17/16 08:40 98 Nasal Cannula 2.0 12/17/16 08:24 97.7 101 20 159/96 99 Room Air 12/17/16 08:00 97.7 101 20 159/96 99 Room Air Intake and Output 12/17/16 12/18/16 19:00 07:00 Intake Total 1345 ml 400 ml Balance 1345 ml 400 ml Intake Oral 1345 ml 400 ml # Voids 4 3 Laboratory Tests 12/17/16 08:05: White Blood Count 5.2, Red Blood Count 3.74L, Hemoglobin 11.5#L, Hematocrit 36.5 #L, Mean Corpuscular Volume 97, Mean Corpuscular Hemoglobin 30.8, Mean Corpuscular Hemoglobin Concent 31.7L, Red Cell Distribution Width 16.0H, Platelet Count 237, Mean Platelet Volume 7.4, Neutrophils (%) (Auto) 57.8, Lymphocytes (%) (Auto) 33.9, Monocytes (%) (Auto) 4.9, Eosinophils (%) (Auto) 2.3, Basophils (%) (Auto) 1.1, Sodium Level 142, Potassium Level 4.0, Chloride Level 100, Carbon Dioxide Level 27, Anion Gap 15, Blood Urea Nitrogen 15, Creatinine 1.2H, Estimat Glomerular Filtration Rate 58.9, Glucose Level 331#H, Calcium Level 8.8 12/17/16 18:57: Glucose Level 664#*H 12/18/16 06:50: White Blood Count 5.3, Red Blood Count 3.67L, Hemoglobin 11.1L, Hematocrit 35.4L , Mean Corpuscular Volume 96, Mean Corpuscular Hemoglobin 30.2, Mean Corpuscular Hemoglobin Concent 31.4L, Red Cell Distribution Width 16.0H, Platelet Count 257, Mean Platelet Volume 6.8, Neutrophils (%) (Auto) 62.4, Lymphocytes (%) (Auto) 27.1, Monocytes (%) (Auto) 6.5, Eosinophils (%) (Auto) 2.5, Basophils (%) (Auto) 1.5, Sodium Level [Pending], Potassium Level [Pending] , Chloride Level [Pending], Carbon Dioxide Level [Pending], Blood Urea Nitrogen [Pending], Creatinine [Pending], Estimat Glomerular Filtration Rate [Pending], Glucose Level [Pending], Calcium Level [Pending] Height (Feet): 5 Height (Inches): 4.00 Weight (Pounds): 132 General Appearance: no apparent distress Neck: normal alignment Cardiovascular: normal rate Respiratory/Chest: lungs clear Abdomen: normal bowel sounds Pelvis: normal external exam Edema: no edema noted Arm (L), no edema noted Arm (R), no edema noted Leg (L), no edema noted Leg (R), no edema noted Pedal (L), no edema noted Pedal (R), no edema noted Generalized Objective Current Medications Medications (Trade) Dose Ordered Sig/Lizbeth Route PRN Reason Start Time Stop Time Status Last Admin Dose Admin Acetaminophen (Tylenol) 650 mg Q4H PRN ORAL T>100.5 12/15/16 16:00 01/14/17 15:59 Acetaminophen/ Hydrocodone Bitart ([place] 10/325) 1 ea Q4H PRN ORAL Severe Pain (Pain Scale 7-10) 12/16/16 22:45 12/23/16 22:44 Acetaminophen/ Hydrocodone Bitart ([place] 5/325) 1 tab Q4H PRN ORAL Moderate Pain (Pain Scale 4-6) 12/16/16 22:45 12/23/16 22:44 Al Hydroxide/Mg Hydroxide (Mylanta II) 30 ml Q6H PRN ORAL dyspepsia 12/15/16 16:00 01/14/17 15:59 Albuterol/ Ipratropium (DuoNeb 0.5-3(2.5)mg/3ml) 3 ml Q4H PRN HHN Shortness of Breath 12/15/16 16:00 12/20/16 15:59 Amlodipine Besylate (Norvasc) 10 mg DAILY ORAL 12/16/16 09:00 01/15/17 08:59 12/17/16 08:44 Clonidine HCl (Catapres) 0.1 mg Q4H PRN ORAL SBP>160 12/15/16 16:00 01/14/17 15:59 Dextrose (Dextrose 50%) STAT PRN IV Hypoglycemia 12/15/16 16:00 01/14/17 15:59 Docusate Sodium (Colace) 100 mg TWICE A DAY ORAL 12/18/16 09:00 01/17/17 08:59 Escitalopram Oxalate (Lexapro) 20 mg DAILY ORAL 12/16/16 09:00 01/15/17 08:59 12/17/16 08:44 Heparin Sodium (Porcine) (Heparin 5000 units/ml) 5,000 units EVERY 12 HOURS SUBQ 12/15/16 21:00 01/14/17 20:59 12/16/16 20:36 Ibuprofen (Motrin) 600 mg Q12H PRN ORAL Mild Pain (Pain Scale 1-3) 12/15/16 16:00 01/14/17 15:59 Insulin Aspart (NovoLOG) BEFORE MEALS AND HS SUBQ 12/15/16 17:30 01/14/17 17:29 12/18/16 06:48 Insulin Aspart (NovoLOG) 5 units NOVOTIAC SUBQ 12/15/16 17:30 01/14/17 17:29 12/18/16 06:49 Insulin Detemir (Levemir) 18 units DAILY SUBQ 12/16/16 09:00 01/15/17 08:59 12/17/16 08:51 Ketorolac Tromethamine (Toradol 30mg) 30 mg Q12H PRN IV Moderate Pain (Pain Scale 4-6) 12/15/16 16:00 12/20/16 15:59 12/15/16 17:12 Mirtazapine (Remeron) 7.5 mg BEDTIME ORAL 12/15/16 21:00 01/14/17 20:59 12/17/16 21:42 Morphine Sulfate (Morphine Sulfate) 2 mg Q4H PRN IVP Severe Pain (Pain Scale 7-10) 12/15/16 16:00 12/22/16 15:59 12/16/16 05:58 Nitroglycerin (Ntg) 0.4 mg Q5M X 3 DOSES PRN SL Prn Chest Pain 12/15/16 16:00 01/14/17 15:59 Ondansetron HCl (Zofran) 4 mg Q6H PRN IVP Nausea & Vomiting 12/15/16 16:00 01/14/17 15:59 Pantoprazole (Protonix) 40 mg DAILY ORAL 12/16/16 09:00 01/15/17 08:59 12/17/16 08:44 Polyethylene Glycol (Miralax) 17 gm BEDTIME ORAL 12/18/16 21:00 01/17/17 20:59 Polyethylene Glycol (Miralax) 17 gm HSPRN PRN ORAL Constipation 12/15/16 21:00 01/14/17 20:59 Pregabalin (Lyrica) 50 mg BID ORAL 12/15/16 18:00 01/14/17 17:59 12/17/16 18:46 Temazepam (Restoril) 15 mg HSPRN PRN ORAL Insomnia 12/15/16 21:00 12/22/16 20:59 12/17/16 02:53 Item Value Date Time Bedside Blood Glucose 369 mg/dl H 12/18/16 0649 Bedside Blood Glucose 478 mg/dl H 12/17/16 2300 Glucose Level 664 mg/dL *H # 12/17/16 1857 Bedside Blood Glucose 372 mg/dl H 12/17/16 1250 Bedside Blood Glucose 342 mg/dl H 12/17/16 0851 Bedside Blood Glucose 342 mg/dl H 12/17/16 0630 IVY SULLIVAN Dec 18, 2016 07:40
[2016-12-18 07:45] LABS: CALCIUM 9.4 mg/dL (8.6-10.2); CREATININE 1.2 mg/dL (0.5-0.9); GLOMERULAR FILTRATION RATE 58.9 mL/min (>60); POTASSIUM 4.8 mEQ/L (3.4-4.9)
[2016-12-18] MEDS: Heparin 5000 units/ml inj SUBQ SCH ×3 (09:00→21:00)
[2016-12-18] MEDS ORDERED: Docusate 100mg cap ORAL SCH (09:00)
[2016-12-18] MEDS: Lyrica 50mg cap ORAL SCH ×2 (09:37→17:24)
[2016-12-18] MEDS ORDERED: NovoLOG Insulin Flexpen SUBQ SCH (11:50)
[2016-12-18] MEDS ORDERED: Levemir Flexpen SUBQ SCH (12:00)
--- NOTE | 2016-12-18 12:56 | Internal Med Progress Note ---
Subjective Date of Service: Dec 18, 2016 Physician Name Anastacio Jacobsen Attending Physician Aries Hardin MD Current Medications Medications (Trade) Dose Ordered Sig/Lizbeth Route PRN Reason Start Time Stop Time Status Last Admin Dose Admin Acetaminophen (Tylenol) 650 mg Q4H PRN ORAL T>100.5 12/15/16 16:00 01/14/17 15:59 Acetaminophen/ Hydrocodone Bitart ([place] 10/325) 1 ea Q4H PRN ORAL Severe Pain (Pain Scale 7-10) 12/16/16 22:45 12/23/16 22:44 Acetaminophen/ Hydrocodone Bitart ([place] 5/325) 1 tab Q4H PRN ORAL Moderate Pain (Pain Scale 4-6) 12/16/16 22:45 12/23/16 22:44 Al Hydroxide/Mg Hydroxide (Mylanta II) 30 ml Q6H PRN ORAL dyspepsia 12/15/16 16:00 01/14/17 15:59 Albuterol/ Ipratropium (DuoNeb 0.5-3(2.5)mg/3ml) 3 ml Q4H PRN HHN Shortness of Breath 12/15/16 16:00 12/20/16 15:59 Amlodipine Besylate (Norvasc) 10 mg DAILY ORAL 12/16/16 09:00 01/15/17 08:59 12/18/16 09:37 Clonidine HCl (Catapres) 0.1 mg Q4H PRN ORAL SBP>160 12/15/16 16:00 01/14/17 15:59 Dextrose (Dextrose 50%) STAT PRN IV Hypoglycemia 12/15/16 16:00 01/14/17 15:59 Docusate Sodium (Colace) 100 mg TWICE A DAY ORAL 12/18/16 09:00 01/17/17 08:59 12/18/16 09:42 Escitalopram Oxalate (Lexapro) 20 mg DAILY ORAL 12/16/16 09:00 01/15/17 08:59 12/18/16 09:41 Heparin Sodium (Porcine) (Heparin 5000 units/ml) 5,000 units EVERY 12 HOURS SUBQ 12/15/16 21:00 01/14/17 20:59 12/16/16 20:36 Ibuprofen (Motrin) 600 mg Q12H PRN ORAL Mild Pain (Pain Scale 1-3) 12/15/16 16:00 01/14/17 15:59 Insulin Aspart (NovoLOG) BEFORE MEALS AND HS SUBQ 12/15/16 17:30 01/14/17 17:29 12/18/16 12:15 Insulin Aspart (NovoLOG) 8 units NOVOTIAC SUBQ 12/18/16 11:50 01/17/17 11:49 12/18/16 12:14 Insulin Detemir (Levemir) 24 units Q24H SUBQ 12/18/16 12:00 01/17/17 11:59 12/18/16 12:15 Ketorolac Tromethamine (Toradol 30mg) 30 mg Q12H PRN IV Moderate Pain (Pain Scale 4-6) 12/15/16 16:00 12/20/16 15:59 12/15/16 17:12 Mirtazapine (Remeron) 7.5 mg BEDTIME ORAL 12/15/16 21:00 01/14/17 20:59 12/17/16 21:42 Morphine Sulfate (Morphine Sulfate) 2 mg Q4H PRN IVP Severe Pain (Pain Scale 7-10) 12/15/16 16:00 12/22/16 15:59 12/16/16 05:58 Nitroglycerin (Ntg) 0.4 mg Q5M X 3 DOSES PRN SL Prn Chest Pain 12/15/16 16:00 01/14/17 15:59 Ondansetron HCl (Zofran) 4 mg Q6H PRN IVP Nausea & Vomiting 12/15/16 16:00 01/14/17 15:59 Pantoprazole (Protonix) 40 mg DAILY ORAL 12/16/16 09:00 01/15/17 08:59 12/18/16 09:36 Polyethylene Glycol (Miralax) 17 gm BEDTIME ORAL 12/18/16 21:00 01/17/17 20:59 Polyethylene Glycol (Miralax) 17 gm HSPRN PRN ORAL Constipation 12/15/16 21:00 01/14/17 20:59 Pregabalin (Lyrica) 50 mg BID ORAL 12/15/16 18:00 01/14/17 17:59 12/18/16 09:37 Temazepam (Restoril) 15 mg HSPRN PRN ORAL Insomnia 12/15/16 21:00 12/22/16 20:59 12/17/16 02:53 Allergies: Coded Allergies: No Known Allergies (Unverified , 04/24/14) ROS Limited/Unobtainable: No Constitutional: Reports: no symptoms HEENT: Reports: no symptoms Cardiovascular: Reports: no symptoms Respiratory: Reports: no symptoms Gastrointestinal/Abdominal: Reports: no symptoms Genitourinary: Reports: no symptoms Neurologic/Psychiatric: Reports: no symptoms Subjective 46 YO F admitted with diabetic ketoacidosis. Cover for Int Med-Dr Hardin. Fingerstick still greater than 300 Objective Last Vital Signs Date Time Temp Pulse Resp B/P Pulse Ox O2 Delivery O2 Flow Rate FiO2 12/18/16 11:49 98.1 91 20 159/92 95 Room Air 12/18/16 07:40 2.0 Laboratory Tests Test 12/17/16 18:57 12/18/16 06:50 Glucose Level 664 mg/dL (74-106) #*H 407 mg/dL (74-106) #H White Blood Count 5.3 K/UL (4.8-10.8) Red Blood Count 3.67 M/UL (4.20-5.40) L Hemoglobin 11.1 G/DL (12.0-16.0) L Hematocrit 35.4 % (37.0-47.0) L Mean Corpuscular Volume 96 FL (80-99) Mean Corpuscular Hemoglobin 30.2 PG (27.0-31.0) Mean Corpuscular Hemoglobin Concent 31.4 G/DL (32.0-36.0) L Red Cell Distribution Width 16.0 % (11.6-14.8) H Platelet Count 257 K/UL (150-450) Mean Platelet Volume 6.8 FL (6.5-10.1) Neutrophils (%) (Auto) 62.4 % (45.0-75.0) Lymphocytes (%) (Auto) 27.1 % (20.0-45.0) Monocytes (%) (Auto) 6.5 % (1.0-10.0) Eosinophils (%) (Auto) 2.5 % (0.0-3.0) Basophils (%) (Auto) 1.5 % (0.0-2.0) Sodium Level 139 mEQ/L (135-145) Potassium Level 4.8 mEQ/L (3.4-4.9) Chloride Level 94 mEQ/L (98-107) L Carbon Dioxide Level 25 mEQ/L (20-30) Anion Gap 20 (5-15) H Blood Urea Nitrogen 20 mg/dL (7-23) Creatinine 1.2 mg/dL (0.5-0.9) H Estimat Glomerular Filtration Rate 58.9 mL/min (>60) Calcium Level 9.4 mg/dL (8.6-10.2) Intake and Output 12/17/16 12/18/16 18:59 06:59 Intake Total 1345 ml 400 ml Balance 1345 ml 400 ml Intake Oral 1345 ml 400 ml # Voids 4 3 Objective General: alert, cooperative, no distress, appears stated age Head: normocephalic, without obvious abnormality, atraumatic Eyes: conjunctivae/corneas clear. PERRL, EOM's intact Throat: lips, mucosa, and tongue normal. MMM Neck: supple, symmetrical, trachea midline, and no JVD Lungs: clear to auscultation bilaterally Heart: regular rate and rhythm, S1, S2 normal, no murmur, click, rub or gallop Abdomen: soft, non-tender, non-distended, bowel sounds normal; no masses or organomegaly Extremities: extremities normal, atraumatic, no cyanosis or edema Pulses: 2+ and symmetric Skin: skin color, texture, turgor normal; no rashes or lesions Neurologic: grossly normal, no focal deficits Assessment/Plan Problem List: (1) Hypertension Assessment & Plan: Continue norvasc. (2) Major depression Assessment & Plan: Continue remeron and lexapro. See psych consult. (3) Nausea & vomiting Assessment & Plan: See GI note. (4) Diabetic ketoacidosis, type I Assessment & Plan: See endocrinology note. (5) Diabetes type 1, uncontrolled Assessment & Plan: See endocrinology note. D/C insulin drip. Continue levemir and novolog sliding scale. (6) Diabetic gastroparesis Assessment & Plan: See GI consult. (7) GERD (gastroesophageal reflux disease) Assessment & Plan: Continue protonix Status: progressing ANASTACIO JACOBSEN Dec 18, 2016 12:56
[2016-12-18] MEDS ORDERED: Insulin Rate Change 1 Each MISC PRN (13:30)
[2016-12-18] MEDS ORDERED: Nitroglycerin Subl 0.4mg tab (Bottle Of 25) SL PRN (13:45)
[2016-12-18] MEDS ORDERED: Norco 10mg/325mg tab ORAL PRN (14:45)
[2016-12-18] MEDS ORDERED: Norco 5mg/325mg tab ORAL PRN (14:45)
[2016-12-18] MEDS ORDERED: Ketorolac 30mg Inj IV PRN (16:00)
[2016-12-18] MEDS ORDERED: DuoNeb 0.5-3(2.5)mg/3ml neb HHN PRN (16:00)
[2016-12-18] MEDS ORDERED: Morphine Sulfate 2mg/ml Inj IVP PRN (16:00)
[2016-12-18] MEDS ORDERED: Mylanta II UD 30ml ORAL PRN (16:00)
[2016-12-18] MEDS: Docusate 100mg cap ORAL SCH (17:24)
[2016-12-18] MEDS: Insulin Rate Change 1 Each MISC PRN ×4 (19:02→23:57)
[2016-12-18] MEDS ORDERED: Miralax 17gm pkt ORAL PRN (21:00)
[2016-12-18] MEDS ORDERED: Miralax 17gm pkt ORAL SCH ×2 (21:00)
[2016-12-19] VITALS (17 sets, daily range): BP systolic 106–154; BP diastolic 46–99
[2016-12-19] MEDS: Insulin Rate Change 1 Each MISC PRN ×4 (02:00→06:55)
[2016-12-19 06:52] LABS: BASOPHILS % (AUTO) 0.8 % (0.0-2.0); EOSINOPHILS % (AUTO) 2.1 % (0.0-3.0); MEAN CORPUSCULAR HEMOGLOBIN 30.4 PG (27.0-31.0); MEAN CORPUSCULAR HGB CONC 31.5 G/DL (32.0-36.0); MEAN CORPUSCULAR VOLUME 97 FL (80-99); MEAN PLATELET VOLUME 6.7 FL (6.5-10.1); NEUTROPHILS % (AUTO) 46.2 % (45.0-75.0); PLATELET COUNT 246 K/UL (150-450); RED BLOOD COUNT 2.84 M/UL (4.20-5.40); RED CELL DISTRIBUTION WIDTH 15.8 % (11.6-14.8)
[2016-12-19 07:10] LABS: ALANINE AMINOTRANSFERASE 19 U/L (3-33); ALBUMIN/GLOBULIN RATIO 1.1 (1.0-2.7); ANION GAP 9 (5-15); ASPARTATE AMINO TRANSFERASE 24 U/L (5-40); CALCIUM 8.6 mg/dL (8.6-10.2); CARBON DIOXIDE 30 mEQ/L (20-30); CHLORIDE 105 mEQ/L (98-107); CREATININE 1.1 mg/dL (0.5-0.9); GLOMERULAR FILTRATION RATE > 60 mL/min (>60); POTASSIUM 4.1 mEQ/L (3.4-4.9); SODIUM 144 mEQ/L (135-145); TOTAL PROTEIN 5.3 g/dL (6.6-8.7)
[2016-12-19 07:17] LABS: HEMOLYSIS 5; IRON 84 ug/dL (37-145); TOTAL IRON BINDING CAPACITY 262 ug/dL (250-400)
--- NOTE | 2016-12-19 07:37 | General Progress Note ---
Assessment/Plan Problem List: (1) Diabetic ketoacidosis, type I ICD Codes: E10.10 - Ketoacidosis in patient with type 1 diabetes mellitus SNOMED: 515591356 (2) GERD (gastroesophageal reflux disease) ICD Codes: K21.9 - Gastro-esophageal reflux disease without esophagitis SNOMED: 569205105 (3) PERLA (acute kidney injury) ICD Codes: N17.9 - Acute kidney failure, unspecified SNOMED: 82292690 (4) Diabetes type 1, uncontrolled ICD Codes: E10.65 - Type 1 diabetes mellitus with hyperglycemia SNOMED: 641125882, 744607465 Qualifiers: Qualified Codes: E10.8 - Type 1 diabetes mellitus with unspecified complications; E10.65 - Type 1 diabetes mellitus with hyperglycemia Assessment/Plan AG is successfully closed DC insulin drip start Levemir and Novolog regimen continue IVF Subjective Allergies: Coded Allergies: No Known Allergies (Unverified , 04/24/14) All Systems: reviewed and negative except above Subjective I transferred her to ICU yesterday for recurrence of DKA Objective Last 24 Hour Vital Signs Date Time Temp Pulse Resp B/P Pulse Ox O2 Delivery O2 Flow Rate FiO2 12/19/16 07:00 82 15 106/48 98 Room Air 12/19/16 06:00 77 15 121/66 98 Room Air 12/19/16 05:00 87 15 108/61 97 Room Air 12/19/16 04:00 80 12/19/16 04:00 98.1 80 13 120/66 93 Room Air 12/19/16 03:00 88 15 128/62 97 Room Air 12/19/16 02:00 93 15 122/54 98 Room Air 12/19/16 01:00 98.5 95 13 130/99 93 Room Air 12/19/16 00:45 98.1 12/19/16 00:00 87 12/19/16 00:00 87 15 142/77 98 Room Air 12/18/16 23:00 80 15 151/75 98 Room Air 12/18/16 22:00 80 15 155/75 98 Room Air 12/18/16 21:00 94 15 151/75 98 Room Air 12/18/16 20:00 98.1 84 13 120/62 93 Room Air 12/18/16 20:00 84 12/18/16 19:36 Room Air 12/18/16 19:36 97 Room Air 12/18/16 19:36 84 16 Room Air 12/18/16 18:00 94 15 134/61 98 Room Air 12/18/16 17:00 97 14 140/70 99 Room Air 12/18/16 16:00 97.8 109 20 141/70 98 Room Air 12/18/16 16:00 101 12/18/16 15:00 98 16 139/67 99 Room Air 12/18/16 14:00 97 20 127/54 95 Room Air 12/18/16 13:01 106 12/18/16 11:49 98.1 91 20 159/92 95 Room Air 12/18/16 09:37 99 150/76 12/18/16 08:37 98.8 99 20 150/76 95 Room Air 12/18/16 07:40 99 Nasal Cannula 2.0 12/18/16 07:40 Nasal Cannula 2.0 12/18/16 07:40 99 16 Nasal Cannula 2.0 Intake and Output 12/18/16 12/19/16 19:00 07:00 Intake Total 2378.75 ml 1763.6 ml Balance 2378.75 ml 1763.6 ml Intake Oral 1605 ml 250 ml IV Total 773.75 ml 1513.6 ml # Voids 4 2 # Bowel Movements 2 Laboratory Tests 12/18/16 17:06: Stool Occult Blood [Pending] 12/19/16 06:00: White Blood Count 7.0, Red Blood Count 2.84L, Hemoglobin 8.6L, Hematocrit 27.5L , Mean Corpuscular Volume 97, Mean Corpuscular Hemoglobin 30.4, Mean Corpuscular Hemoglobin Concent 31.5L, Red Cell Distribution Width 15.8H, Platelet Count 246, Mean Platelet Volume 6.7, Neutrophils (%) (Auto) 46.2, Lymphocytes (%) (Auto) 44.0, Monocytes (%) (Auto) 7.0, Eosinophils (%) (Auto) 2.1, Basophils (%) (Auto) 0.8, Sodium Level 144, Potassium Level 4.1, Chloride Level 105, Carbon Dioxide Level 30, Anion Gap 9, Blood Urea Nitrogen 17, Creatinine 1.1H, Estimat Glomerular Filtration Rate > 60, Glucose Level 78#, Calcium Level 8.6, Iron Level 84, Total Iron Binding Capacity 262, Percent Iron Saturation 32, Unsaturated Iron Binding 178, Total Bilirubin < 0.2, Aspartate Amino Transf (AST/SGOT) 24, Alanine Aminotransferase (ALT/SGPT) 19, Alkaline Phosphatase 85, Total Protein 5.3L, Albumin 2.8L, Globulin 2.5, Albumin/ Globulin Ratio 1.1 Height (Feet): 5 Height (Inches): 4.00 Weight (Pounds): 139 General Appearance: no apparent distress Neck: normal alignment Cardiovascular: normal rate Respiratory/Chest: lungs clear Abdomen: normal bowel sounds Edema: no edema noted Arm (L), no edema noted Arm (R), no edema noted Leg (L), no edema noted Leg (R), no edema noted Pedal (L), no edema noted Pedal (R), no edema noted Generalized Objective Current Medications Medications (Trade) Dose Ordered Sig/Lizbeth Route PRN Reason Start Time Stop Time Status Last Admin Dose Admin Acetaminophen (Tylenol) 650 mg Q4H PRN ORAL T>100.5 12/18/16 16:00 01/17/17 15:59 Acetaminophen/ Hydrocodone Bitart ([place] 10/325) 1 ea Q4H PRN ORAL Severe Pain (Pain Scale 7-10) 12/18/16 14:45 12/25/16 14:44 Acetaminophen/ Hydrocodone Bitart ([place] 5/325) 1 tab Q4H PRN ORAL Moderate Pain (Pain Scale 4-6) 12/18/16 14:45 12/25/16 14:44 12/18/16 23:46 Al Hydroxide/Mg Hydroxide (Mylanta II) 30 ml Q6H PRN ORAL dyspepsia 12/18/16 16:00 01/17/17 15:59 Albuterol/ Ipratropium (DuoNeb 0.5-3(2.5)mg/3ml) 3 ml Q4H PRN HHN Shortness of Breath 12/18/16 16:00 12/23/16 15:59 Amlodipine Besylate (Norvasc) 10 mg DAILY ORAL 12/19/16 09:00 01/18/17 08:59 Clonidine HCl (Catapres) 0.1 mg Q4H PRN ORAL SBP>160 12/18/16 16:00 01/17/17 15:59 Dextrose (Dextrose 50%) STAT PRN IV Hypoglycemia 12/18/16 16:00 01/17/17 15:59 Docusate Sodium (Colace) 100 mg TWICE A DAY ORAL 12/18/16 18:00 01/17/17 17:59 Escitalopram Oxalate (Lexapro) 20 mg DAILY ORAL 12/19/16 09:00 01/18/17 08:59 Heparin Sodium (Porcine) (Heparin 5000 units/ml) 5,000 units EVERY 12 HOURS SUBQ 12/18/16 21:00 01/17/17 20:59 Ibuprofen (Motrin) 600 mg Q12H PRN ORAL Mild Pain (Pain Scale 1-3) 12/18/16 16:00 01/17/17 15:59 Insulin Human Regular (NovoLIN R) 5 units PRN PRN IV BS 200-299 12/18/16 15:15 01/17/17 15:14 12/18/16 18:06 Insulin Human Regular 10 units 10 units PRN PRN IV BS=>300 12/18/16 15:15 01/17/17 15:14 12/18/16 16:08 Insulin Human Regular/Sodium Chloride (NovoLIN R/ Sodium Chloride) 101 ml @ 0 mls/hr Q24H IV 12/18/16 18:23 01/17/17 18:09 12/18/16 18:31 Ketorolac Tromethamine (Toradol 30mg) 30 mg Q12H PRN IV Moderate Pain (Pain Scale 4-6) 12/18/16 16:00 12/23/16 15:59 Mirtazapine (Remeron) 7.5 mg BEDTIME ORAL 12/18/16 21:00 01/17/17 20:59 12/18/16 20:57 Miscellaneous Medication (Insulin Rate Change) 1 ea PRN PRN MISC Per rx protocol 12/19/16 13:30 01/18/17 13:29 12/19/16 06:55 Morphine Sulfate (Morphine Sulfate) 2 mg Q4H PRN IVP Severe Pain (Pain Scale 7-10) 12/18/16 16:00 12/25/16 15:59 Nitroglycerin (Ntg) 0.4 mg Q5M X 3 DOSES PRN SL Prn Chest Pain 12/18/16 13:45 01/17/17 13:44 Ondansetron HCl (Zofran) 4 mg Q6H PRN IVP Nausea & Vomiting 12/18/16 16:00 01/17/17 15:59 Pantoprazole (Protonix) 40 mg DAILY ORAL 12/19/16 09:00 01/18/17 08:59 Polyethylene Glycol (Miralax) 17 gm BEDTIME ORAL 12/18/16 21:00 01/17/17 20:59 Polyethylene Glycol (Miralax) 17 gm HSPRN PRN ORAL Constipation 12/18/16 21:00 01/17/17 20:59 Pregabalin (Lyrica) 50 mg BID ORAL 12/18/16 18:00 01/17/17 17:59 12/18/16 17:24 Sodium Chloride (Sodium Chloride 1000ml bag) 1,000 ml @ 125 mls/hr Q8H IV 12/18/16 15:00 01/17/17 14:59 12/19/16 05:27 Temazepam (Restoril) 15 mg HSPRN PRN ORAL Insomnia 12/18/16 21:00 12/25/16 20:59 12/19/16 02:06 Item Value Date Time Bedside Blood Glucose 122 mg/dl H 12/19/16 0658 Bedside Blood Glucose 189 mg/dl H 12/19/16 0200 Bedside Blood Glucose 134 mg/dl H 12/18/16 2200 Bedside Blood Glucose 276 mg/dl H 12/18/16 1831 Bedside Blood Glucose 199 mg/dl H 12/18/16 1215 Bedside Blood Glucose 369 mg/dl H 12/18/16 0649 IVY SULLIVAN Dec 19, 2016 07:37
[2016-12-19] MEDS: Docusate 100mg cap ORAL SCH ×2 (08:40→18:00)
[2016-12-19] MEDS: Heparin 5000 units/ml inj SUBQ SCH ×2 (08:41→21:00)
[2016-12-19] MEDS: Lyrica 50mg cap ORAL SCH ×2 (08:41→18:15)
[2016-12-19] MEDS ORDERED: NovoLOG Insulin Flexpen SUBQ SCH ×3 (08:45→11:50)
[2016-12-19] MEDS ORDERED: Levemir Flexpen SUBQ SCH (09:00)
--- NOTE | 2016-12-19 10:35 | Pulmonolgy Critical Care Note ---
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 - Objective Last 24 Hour Vital Signs Date Time Temp Pulse Resp B/P Pulse Ox O2 Delivery O2 Flow Rate FiO2 12/19/16 10:00 89 15 135/65 100 Room Air 12/19/16 09:18 96 Room Air 12/19/16 09:18 86 16 Room Air 12/19/16 09:18 Room Air 12/19/16 09:00 91 15 154/96 98 Room Air 12/19/16 08:41 86 149/74 12/19/16 08:00 98.2 84 16 149/74 100 Room Air 12/19/16 07:00 82 15 106/48 98 Room Air 12/19/16 06:00 77 15 121/66 98 Room Air 12/19/16 05:00 87 15 108/61 97 Room Air 12/19/16 04:00 80 12/19/16 04:00 98.1 80 13 120/66 93 Room Air 12/19/16 03:00 88 15 128/62 97 Room Air 12/19/16 02:00 93 15 122/54 98 Room Air 12/19/16 01:00 98.5 95 13 130/99 93 Room Air 12/19/16 00:45 98.1 12/19/16 00:00 87 12/19/16 00:00 87 15 142/77 98 Room Air 12/18/16 23:00 80 15 151/75 98 Room Air 12/18/16 22:00 80 15 155/75 98 Room Air 12/18/16 21:00 94 15 151/75 98 Room Air 12/18/16 20:00 98.1 84 13 120/62 93 Room Air 12/18/16 20:00 84 12/18/16 19:36 Room Air 12/18/16 19:36 97 Room Air 12/18/16 19:36 84 16 Room Air 12/18/16 18:00 94 15 134/61 98 Room Air 12/18/16 17:00 97 14 140/70 99 Room Air 12/18/16 16:00 97.8 109 20 141/70 98 Room Air 12/18/16 16:00 101 12/18/16 15:00 98 16 139/67 99 Room Air 12/18/16 14:00 97 20 127/54 95 Room Air 12/18/16 13:01 106 12/18/16 11:49 98.1 91 20 159/92 95 Room Air Status: awake Condition: critical HEENT: atraumatic, normocephalic Lungs: clear Heart: HR/BP stable, HR/BP unstable Abdomen: soft, non-tender, feeding tube Extremities: no C/C/E, edema Accucheck: 96 Critical Care - Subjective ROS Limited/Unobtainable: Yes ICU Day: 2 Interval Events: transferred to ICU to start insulin drip, her BS > high Sputum Amount: None Fluids: NS 125 cc.hour I&O: Intake and Output 12/18/16 12/19/16 19:00 07:00 Intake Total 2378.75 ml 1763.6 ml Balance 2378.75 ml 1763.6 ml Intake Oral 1605 ml 250 ml IV Total 773.75 ml 1513.6 ml # Voids 4 2 # Bowel Movements 2 Labs: Laboratory Tests Test 12/18/16 17:06 12/19/16 06:00 Stool Occult Blood Pending White Blood Count 7.0 K/UL (4.8-10.8) Red Blood Count 2.84 M/UL (4.20-5.40) L Hemoglobin 8.6 G/DL (12.0-16.0) L Hematocrit 27.5 % (37.0-47.0) L Mean Corpuscular Volume 97 FL (80-99) Mean Corpuscular Hemoglobin 30.4 PG (27.0-31.0) Mean Corpuscular Hemoglobin Concent 31.5 G/DL (32.0-36.0) L Red Cell Distribution Width 15.8 % (11.6-14.8) H Platelet Count 246 K/UL (150-450) Mean Platelet Volume 6.7 FL (6.5-10.1) Neutrophils (%) (Auto) 46.2 % (45.0-75.0) Lymphocytes (%) (Auto) 44.0 % (20.0-45.0) Monocytes (%) (Auto) 7.0 % (1.0-10.0) Eosinophils (%) (Auto) 2.1 % (0.0-3.0) Basophils (%) (Auto) 0.8 % (0.0-2.0) Sodium Level 144 mEQ/L (135-145) Potassium Level 4.1 mEQ/L (3.4-4.9) Chloride Level 105 mEQ/L (98-107) Carbon Dioxide Level 30 mEQ/L (20-30) Anion Gap 9 (5-15) Blood Urea Nitrogen 17 mg/dL (7-23) Creatinine 1.1 mg/dL (0.5-0.9) H Estimat Glomerular Filtration Rate > 60 mL/min (>60) Glucose Level 78 mg/dL (74-106) # Calcium Level 8.6 mg/dL (8.6-10.2) Iron Level 84 ug/dL (37-145) Total Iron Binding Capacity 262 ug/dL (250-400) Percent Iron Saturation 32 % (15-50) Unsaturated Iron Binding 178 ug/dL (112-346) Total Bilirubin < 0.2 mg/dL (0.0-1.2) Aspartate Amino Transf (AST/SGOT) 24 U/L (5-40) Alanine Aminotransferase (ALT/SGPT) 19 U/L (3-33) Alkaline Phosphatase 85 U/L (35-104) Total Protein 5.3 g/dL (6.6-8.7) L Albumin 2.8 g/dL (3.5-5.2) L Globulin 2.5 g/dL Albumin/Globulin Ratio 1.1 (1.0-2.7) VANESSA SAGASTUME Dec 19, 2016 10:35
--- NOTE | 2016-12-19 11:51 | Internal Med Progress Note ---
Subjective Physician Name AdrianaChristos Attending Physician Aries Hardin MD Current Medications Medications (Trade) Dose Ordered Sig/Lizbeth Route PRN Reason Start Time Stop Time Status Last Admin Dose Admin Acetaminophen (Tylenol) 650 mg Q4H PRN ORAL T>100.5 12/18/16 16:00 01/17/17 15:59 Acetaminophen/ Hydrocodone Bitart ([place] 10/325) 1 ea Q4H PRN ORAL Severe Pain (Pain Scale 7-10) 12/18/16 14:45 12/25/16 14:44 Acetaminophen/ Hydrocodone Bitart ([place] 5/325) 1 tab Q4H PRN ORAL Moderate Pain (Pain Scale 4-6) 12/18/16 14:45 12/25/16 14:44 12/18/16 23:46 Al Hydroxide/Mg Hydroxide (Mylanta II) 30 ml Q6H PRN ORAL dyspepsia 12/18/16 16:00 01/17/17 15:59 Albuterol/ Ipratropium (DuoNeb 0.5-3(2.5)mg/3ml) 3 ml Q4H PRN HHN Shortness of Breath 12/18/16 16:00 12/23/16 15:59 Amlodipine Besylate (Norvasc) 10 mg DAILY ORAL 12/19/16 09:00 01/18/17 08:59 12/19/16 08:41 Clonidine HCl (Catapres) 0.1 mg Q4H PRN ORAL SBP>160 12/18/16 16:00 01/17/17 15:59 Dextrose (Dextrose 50%) STAT PRN IV Hypoglycemia 12/18/16 16:00 01/17/17 15:59 Docusate Sodium (Colace) 100 mg TWICE A DAY ORAL 12/18/16 18:00 01/17/17 17:59 Escitalopram Oxalate (Lexapro) 20 mg DAILY ORAL 12/19/16 09:00 01/18/17 08:59 12/19/16 08:41 Heparin Sodium (Porcine) (Heparin 5000 units/ml) 5,000 units EVERY 12 HOURS SUBQ 12/18/16 21:00 01/17/17 20:59 Ibuprofen (Motrin) 600 mg Q12H PRN ORAL Mild Pain (Pain Scale 1-3) 12/18/16 16:00 01/17/17 15:59 Insulin Aspart (NovoLOG) BEFORE MEALS AND HS SUBQ 12/19/16 11:30 01/18/17 11:29 Insulin Aspart (NovoLOG) 8 units NOVOTIAC SUBQ 12/19/16 11:50 01/18/17 11:49 Insulin Detemir (Levemir) 24 units DAILY SUBQ 12/19/16 09:00 01/18/17 08:59 12/19/16 09:10 Ketorolac Tromethamine (Toradol 30mg) 30 mg Q12H PRN IV Moderate Pain (Pain Scale 4-6) 12/18/16 16:00 12/23/16 15:59 Mirtazapine (Remeron) 7.5 mg BEDTIME ORAL 12/18/16 21:00 01/17/17 20:59 12/18/16 20:57 Miscellaneous Medication (Insulin Rate Change) 1 ea PRN PRN MISC Per rx protocol 12/19/16 13:30 01/18/17 13:29 12/19/16 06:55 Morphine Sulfate (Morphine Sulfate) 2 mg Q4H PRN IVP Severe Pain (Pain Scale 7-10) 12/18/16 16:00 12/25/16 15:59 Nitroglycerin (Ntg) 0.4 mg Q5M X 3 DOSES PRN SL Prn Chest Pain 12/18/16 13:45 01/17/17 13:44 Ondansetron HCl (Zofran) 4 mg Q6H PRN IVP Nausea & Vomiting 12/18/16 16:00 01/17/17 15:59 Pantoprazole (Protonix) 40 mg DAILY ORAL 12/19/16 09:00 01/18/17 08:59 12/19/16 08:41 Polyethylene Glycol (Miralax) 17 gm BEDTIME ORAL 12/18/16 21:00 01/17/17 20:59 Polyethylene Glycol (Miralax) 17 gm HSPRN PRN ORAL Constipation 12/18/16 21:00 01/17/17 20:59 Pregabalin (Lyrica) 50 mg BID ORAL 12/18/16 18:00 01/17/17 17:59 12/19/16 08:41 Sodium Chloride (Sodium Chloride 1000ml bag) 1,000 ml @ 125 mls/hr Q8H IV 12/18/16 15:00 01/17/17 14:59 12/19/16 05:27 Temazepam (Restoril) 15 mg HSPRN PRN ORAL Insomnia 12/18/16 21:00 12/25/16 20:59 12/19/16 02:06 Allergies: Coded Allergies: No Known Allergies (Unverified , 04/24/14) ROS Limited/Unobtainable: No Constitutional: Reports: no symptoms HEENT: Reports: no symptoms Cardiovascular: Reports: no symptoms Respiratory: Reports: no symptoms Gastrointestinal/Abdominal: Reports: no symptoms Genitourinary: Reports: no symptoms Neurologic/Psychiatric: Reports: no symptoms Subjective 46 YO F admitted with diabetic ketoacidosis. Cover for Int Med-Dr Hardin. Fingerstick still greater than 300. ICU Objective Last Vital Signs Date Time Temp Pulse Resp B/P Pulse Ox O2 Delivery O2 Flow Rate FiO2 12/19/16 11:00 82 16 116/64 100 Room Air 12/19/16 08:00 98.2 12/18/16 07:40 2.0 Laboratory Tests Test 12/18/16 17:06 12/19/16 06:00 Stool Occult Blood Pending White Blood Count 7.0 K/UL (4.8-10.8) Red Blood Count 2.84 M/UL (4.20-5.40) L Hemoglobin 8.6 G/DL (12.0-16.0) L Hematocrit 27.5 % (37.0-47.0) L Mean Corpuscular Volume 97 FL (80-99) Mean Corpuscular Hemoglobin 30.4 PG (27.0-31.0) Mean Corpuscular Hemoglobin Concent 31.5 G/DL (32.0-36.0) L Red Cell Distribution Width 15.8 % (11.6-14.8) H Platelet Count 246 K/UL (150-450) Mean Platelet Volume 6.7 FL (6.5-10.1) Neutrophils (%) (Auto) 46.2 % (45.0-75.0) Lymphocytes (%) (Auto) 44.0 % (20.0-45.0) Monocytes (%) (Auto) 7.0 % (1.0-10.0) Eosinophils (%) (Auto) 2.1 % (0.0-3.0) Basophils (%) (Auto) 0.8 % (0.0-2.0) Sodium Level 144 mEQ/L (135-145) Potassium Level 4.1 mEQ/L (3.4-4.9) Chloride Level 105 mEQ/L (98-107) Carbon Dioxide Level 30 mEQ/L (20-30) Anion Gap 9 (5-15) Blood Urea Nitrogen 17 mg/dL (7-23) Creatinine 1.1 mg/dL (0.5-0.9) H Estimat Glomerular Filtration Rate > 60 mL/min (>60) Glucose Level 78 mg/dL (74-106) # Calcium Level 8.6 mg/dL (8.6-10.2) Iron Level 84 ug/dL (37-145) Total Iron Binding Capacity 262 ug/dL (250-400) Percent Iron Saturation 32 % (15-50) Unsaturated Iron Binding 178 ug/dL (112-346) Total Bilirubin < 0.2 mg/dL (0.0-1.2) Aspartate Amino Transf (AST/SGOT) 24 U/L (5-40) Alanine Aminotransferase (ALT/SGPT) 19 U/L (3-33) Alkaline Phosphatase 85 U/L (35-104) Total Protein 5.3 g/dL (6.6-8.7) L Albumin 2.8 g/dL (3.5-5.2) L Globulin 2.5 g/dL Albumin/Globulin Ratio 1.1 (1.0-2.7) Intake and Output 12/18/16 12/19/16 19:00 07:00 Intake Total 2378.75 ml 1763.6 ml Balance 2378.75 ml 1763.6 ml Intake Oral 1605 ml 250 ml IV Total 773.75 ml 1513.6 ml # Voids 4 2 # Bowel Movements 2 Objective General: alert, cooperative, no distress, appears stated age Head: normocephalic, without obvious abnormality, atraumatic Eyes: conjunctivae/corneas clear. PERRL, EOM's intact Throat: lips, mucosa, and tongue normal. MMM Neck: supple, symmetrical, trachea midline, and no JVD Lungs: clear to auscultation bilaterally Heart: regular rate and rhythm, S1, S2 normal, no murmur, click, rub or gallop Abdomen: soft, non-tender, non-distended, bowel sounds normal; no masses or organomegaly Extremities: extremities normal, atraumatic, no cyanosis or edema Pulses: 2+ and symmetric Skin: skin color, texture, turgor normal; no rashes or lesions Neurologic: grossly normal, no focal deficits Assessment/Plan Problem List: (1) Hypertension Assessment & Plan: Continue norvasc. (2) Major depression Assessment & Plan: Continue remeron and lexapro. See psych consult. (3) Nausea & vomiting Assessment & Plan: See GI note. (4) Diabetic ketoacidosis, type I Assessment & Plan: See endocrinology note. (5) Diabetes type 1, uncontrolled Assessment & Plan: See endocrinology note. Start insulin drip. (6) Diabetic gastroparesis Assessment & Plan: See GI consult. (7) GERD (gastroesophageal reflux disease) Assessment & Plan: Continue protonix Status: progressing Assessment/Plan Transfer to Med/Surg today. CHRISOTS JACOBESN Dec 19, 2016 11:51
[2016-12-19] MEDS ORDERED: Nitroglycerin Subl 0.4mg tab (Bottle Of 25) SL PRN (14:30)
--- NOTE | 2016-12-19 15:00 | GI Progress Note ---
Assessment/Plan Problems: (1) Hypoalbuminemia ICD Codes: E88.09 - Other disorders of plasma-protein metabolism, not elsewhere classified SNOMED: 405404254 (2) Diabetic gastroparesis ICD Codes: E11.43 - Diabetic gastroparesis SNOMED: 96928890 (3) Diabetes ICD Codes: E11.9 - Type 2 diabetes mellitus without complications SNOMED: 97016103 (4) Anemia ICD Codes: D64.9 - Anemia, unspecified SNOMED: 634461233 (5) Dehydration ICD Codes: E86.0 - Dehydration SNOMED: 07721727 Status: stable Status Narrative Discussed with Dr. Patel. Assessment/Plan Assessment - Resolved N/V - DKA >> BS controlled, pt transferred back to med surg - Azotemia - constipation - anemia Recommendations - po as tolerated - dulcolax supp - DM control - consider reglan if patient has persistent vomiting - fu labs Subjective Subjective denies N/V/D Objective Last 24 Hour Vital Signs Date Time Temp Pulse Resp B/P Pulse Ox O2 Delivery O2 Flow Rate FiO2 12/19/16 13:00 88 18 132/46 100 Room Air 12/19/16 12:00 98.5 82 14 128/46 98 Room Air 12/19/16 11:00 82 16 116/64 100 Room Air 12/19/16 10:00 89 15 135/65 100 Room Air 12/19/16 09:18 96 Room Air 12/19/16 09:18 86 16 Room Air 12/19/16 09:18 Room Air 12/19/16 09:00 91 15 154/96 98 Room Air 12/19/16 08:41 86 149/74 12/19/16 08:00 98.2 84 16 149/74 100 Room Air 12/19/16 07:00 82 15 106/48 98 Room Air 12/19/16 06:00 77 15 121/66 98 Room Air 12/19/16 05:00 87 15 108/61 97 Room Air 12/19/16 04:00 80 12/19/16 04:00 98.1 80 13 120/66 93 Room Air 12/19/16 03:00 88 15 128/62 97 Room Air 12/19/16 02:00 93 15 122/54 98 Room Air 12/19/16 01:00 98.5 95 13 130/99 93 Room Air 12/19/16 00:45 98.1 12/19/16 00:00 87 12/19/16 00:00 87 15 142/77 98 Room Air 12/18/16 23:00 80 15 151/75 98 Room Air 12/18/16 22:00 80 15 155/75 98 Room Air 12/18/16 21:00 94 15 151/75 98 Room Air 12/18/16 20:00 98.1 84 13 120/62 93 Room Air 12/18/16 20:00 84 12/18/16 19:36 Room Air 12/18/16 19:36 97 Room Air 12/18/16 19:36 84 16 Room Air 12/18/16 18:00 94 15 134/61 98 Room Air 12/18/16 17:00 97 14 140/70 99 Room Air 12/18/16 16:00 97.8 109 20 141/70 98 Room Air 12/18/16 16:00 101 12/18/16 15:00 98 16 139/67 99 Room Air Intake and Output 12/18/16 12/19/16 19:00 07:00 Intake Total 2378.75 ml 1763.6 ml Balance 2378.75 ml 1763.6 ml Intake Oral 1605 ml 250 ml IV Total 773.75 ml 1513.6 ml # Voids 4 2 # Bowel Movements 2 Laboratory Tests Test 12/18/16 17:06 12/19/16 06:00 Stool Occult Blood Pending White Blood Count 7.0 K/UL (4.8-10.8) Red Blood Count 2.84 M/UL (4.20-5.40) L Hemoglobin 8.6 G/DL (12.0-16.0) L Hematocrit 27.5 % (37.0-47.0) L Mean Corpuscular Volume 97 FL (80-99) Mean Corpuscular Hemoglobin 30.4 PG (27.0-31.0) Mean Corpuscular Hemoglobin Concent 31.5 G/DL (32.0-36.0) L Red Cell Distribution Width 15.8 % (11.6-14.8) H Platelet Count 246 K/UL (150-450) Mean Platelet Volume 6.7 FL (6.5-10.1) Neutrophils (%) (Auto) 46.2 % (45.0-75.0) Lymphocytes (%) (Auto) 44.0 % (20.0-45.0) Monocytes (%) (Auto) 7.0 % (1.0-10.0) Eosinophils (%) (Auto) 2.1 % (0.0-3.0) Basophils (%) (Auto) 0.8 % (0.0-2.0) Sodium Level 144 mEQ/L (135-145) Potassium Level 4.1 mEQ/L (3.4-4.9) Chloride Level 105 mEQ/L (98-107) Carbon Dioxide Level 30 mEQ/L (20-30) Anion Gap 9 (5-15) Blood Urea Nitrogen 17 mg/dL (7-23) Creatinine 1.1 mg/dL (0.5-0.9) H Estimat Glomerular Filtration Rate > 60 mL/min (>60) Glucose Level 78 mg/dL (74-106) # Calcium Level 8.6 mg/dL (8.6-10.2) Iron Level 84 ug/dL (37-145) Total Iron Binding Capacity 262 ug/dL (250-400) Percent Iron Saturation 32 % (15-50) Unsaturated Iron Binding 178 ug/dL (112-346) Total Bilirubin < 0.2 mg/dL (0.0-1.2) Aspartate Amino Transf (AST/SGOT) 24 U/L (5-40) Alanine Aminotransferase (ALT/SGPT) 19 U/L (3-33) Alkaline Phosphatase 85 U/L (35-104) Total Protein 5.3 g/dL (6.6-8.7) L Albumin 2.8 g/dL (3.5-5.2) L Globulin 2.5 g/dL Albumin/Globulin Ratio 1.1 (1.0-2.7) Height (Feet): 5 Height (Inches): 4.00 Weight (Pounds): 139 General Appearance: no apparent distress, alert Cardiovascular: normal rate Respiratory/Chest: normal breath sounds, no respiratory distress Abdominal Exam: normal bowel sounds, non tender, soft Extremities: normal range of motion Venus Hart N.PVenkatesh Dec 19, 2016 15:00
[2016-12-19] MEDS ORDERED: Norco 5mg/325mg tab ORAL PRN (16:00)
[2016-12-19] MEDS ORDERED: Mylanta II UD 30ml ORAL PRN (16:00)
[2016-12-19] MEDS ORDERED: Ketorolac 30mg Inj IV PRN (16:00)
[2016-12-19] MEDS ORDERED: DuoNeb 0.5-3(2.5)mg/3ml neb HHN PRN (16:00)
[2016-12-19] MEDS ORDERED: Norco 10mg/325mg tab ORAL PRN (16:00)
[2016-12-19] MEDS: NovoLOG Insulin Flexpen SUBQ SCH ×3 (16:15→20:54)
[2016-12-19] MEDS ORDERED: Miralax 17gm pkt ORAL SCH (21:00)
[2016-12-19] MEDS ORDERED: Miralax 17gm pkt ORAL PRN (21:00)
--- NOTE | 2016-12-19 22:38 | General Progress Note ---
Assessment/Plan Status: doing well, stable, progressing Assessment/Plan mdd, dm lexapro 20 mg qam Subjective Constitutional: Reports: malaise, weakness Neurologic/Psychiatric: Reports: anxiety, depressed, emotional problems Allergies: Coded Allergies: No Known Allergies (Unverified , 04/24/14) All Systems: reviewed and negative except above Objective Last 24 Hour Vital Signs Date Time Temp Pulse Resp B/P Pulse Ox O2 Delivery O2 Flow Rate FiO2 12/19/16 20:17 98.1 85 19 141/64 92 Room Air 12/19/16 19:10 Room Air 21 12/19/16 19:10 94 18 Room Air 12/19/16 19:10 97 Room Air 12/19/16 18:00 97.5 91 20 133/78 93 Room Air 12/19/16 16:00 97.5 20 133/78 93 Room Air 12/19/16 13:00 88 18 132/46 100 Room Air 12/19/16 12:00 98.5 82 14 128/46 98 Room Air 12/19/16 11:00 82 16 116/64 100 Room Air 12/19/16 10:00 89 15 135/65 100 Room Air 12/19/16 09:18 96 Room Air 12/19/16 09:18 86 16 Room Air 12/19/16 09:18 Room Air 12/19/16 09:00 91 15 154/96 98 Room Air 12/19/16 08:41 86 149/74 12/19/16 08:00 98.2 84 16 149/74 100 Room Air 12/19/16 07:00 82 15 106/48 98 Room Air 12/19/16 06:00 77 15 121/66 98 Room Air 12/19/16 05:00 87 15 108/61 97 Room Air 12/19/16 04:00 80 12/19/16 04:00 98.1 80 13 120/66 93 Room Air 12/19/16 03:00 88 15 128/62 97 Room Air 12/19/16 02:00 93 15 122/54 98 Room Air 12/19/16 01:00 98.5 95 13 130/99 93 Room Air 12/19/16 00:45 98.1 12/19/16 00:00 87 12/19/16 00:00 87 15 142/77 98 Room Air 12/18/16 23:00 80 15 151/75 98 Room Air Intake and Output 12/18/16 12/19/16 19:00 07:00 Intake Total 2378.75 ml 1763.6 ml Balance 2378.75 ml 1763.6 ml Intake Oral 1605 ml 250 ml IV Total 773.75 ml 1513.6 ml # Voids 4 2 # Bowel Movements 2 Laboratory Tests 12/19/16 06:00: White Blood Count 7.0, Red Blood Count 2.84L, Hemoglobin 8.6L, Hematocrit 27.5L , Mean Corpuscular Volume 97, Mean Corpuscular Hemoglobin 30.4, Mean Corpuscular Hemoglobin Concent 31.5L, Red Cell Distribution Width 15.8H, Platelet Count 246, Mean Platelet Volume 6.7, Neutrophils (%) (Auto) 46.2, Lymphocytes (%) (Auto) 44.0, Monocytes (%) (Auto) 7.0, Eosinophils (%) (Auto) 2.1, Basophils (%) (Auto) 0.8, Sodium Level 144, Potassium Level 4.1, Chloride Level 105, Carbon Dioxide Level 30, Anion Gap 9, Blood Urea Nitrogen 17, Creatinine 1.1H, Estimat Glomerular Filtration Rate > 60, Glucose Level 78#, Calcium Level 8.6, Iron Level 84, Total Iron Binding Capacity 262, Percent Iron Saturation 32, Unsaturated Iron Binding 178, Total Bilirubin < 0.2, Aspartate Amino Transf (AST/SGOT) 24, Alanine Aminotransferase (ALT/SGPT) 19, Alkaline Phosphatase 85, Total Protein 5.3L, Albumin 2.8L, Globulin 2.5, Albumin/ Globulin Ratio 1.1 Height (Feet): 5 Height (Inches): 4.00 Weight (Pounds): 139 General Appearance: no apparent distress, alert, thin Neurologic: alert, oriented x 3, responsive, depressed affect Elisha Hardy M.D. Dec 19, 2016 22:38
[2016-12-20] VITALS: BP 141/70
[2016-12-20] MEDS: Morphine Sulfate 2mg/ml Inj IVP PRN ×2 (02:40→15:23)
[2016-12-20 04:45] VITALS: BP 156/79
[2016-12-20] MEDS: NovoLOG Insulin Flexpen SUBQ SCH ×6 (06:24→17:15)
[2016-12-20 07:07] LABS: BASOPHILS % (AUTO) 0.6 % (0.0-2.0); EOSINOPHILS % (AUTO) 1.1 % (0.0-3.0); LYMPHOCYTES % (AUTO) 25.8 % (20.0-45.0); MEAN CORPUSCULAR HEMOGLOBIN 30.2 PG (27.0-31.0); MEAN CORPUSCULAR HGB CONC 30.3 G/DL (32.0-36.0); MEAN CORPUSCULAR VOLUME 100 FL (80-99); MEAN PLATELET VOLUME 6.5 FL (6.5-10.1); MONOCYTES % (AUTO) 5.5 % (1.0-10.0); NEUTROPHILS % (AUTO) 67.1 % (45.0-75.0); PLATELET COUNT 238 K/UL (150-450); RED BLOOD COUNT 2.97 M/UL (4.20-5.40); RED CELL DISTRIBUTION WIDTH 16.9 % (11.6-14.8); WHITE BLOOD COUNT 7.4 K/UL (4.8-10.8)
[2016-12-20 07:31] LABS: ANION GAP 8 (5-15); CALCIUM 8.4 mg/dL (8.6-10.2); CARBON DIOXIDE 32 mEQ/L (20-30); CHLORIDE 102 mEQ/L (98-107); GLOMERULAR FILTRATION RATE > 60 mL/min (>60); HEMOLYSIS 2; SODIUM 142 mEQ/L (135-145)
[2016-12-20 07:58] VITALS: BP 164/95
[2016-12-20] MEDS: Heparin 5000 units/ml inj SUBQ SCH (09:00)
[2016-12-20] MEDS: Docusate 100mg cap ORAL SCH ×3 (09:00→18:20)
[2016-12-20] MEDS ORDERED: Levemir Flexpen SUBQ SCH (09:00)
[2016-12-20] MEDS: Lyrica 50mg cap ORAL SCH ×2 (09:14→18:34)
[2016-12-20 11:38] VITALS: BP 157/83
--- NOTE | 2016-12-20 11:59 | GI Progress Note ---
Assessment/Plan Problems: (1) Hypoalbuminemia ICD Codes: E88.09 - Other disorders of plasma-protein metabolism, not elsewhere classified SNOMED: 387412761 (2) Diabetic gastroparesis ICD Codes: E11.43 - Diabetic gastroparesis SNOMED: 58574163 (3) Diabetes ICD Codes: E11.9 - Type 2 diabetes mellitus without complications SNOMED: 78757883 (4) Anemia ICD Codes: D64.9 - Anemia, unspecified SNOMED: 550645854 (5) Dehydration ICD Codes: E86.0 - Dehydration SNOMED: 66072904 Status: stable Status Narrative Discussed with Dr. Patel. Assessment/Plan Assessment - Resolved N/V - DKA >> BS controlled, pt transferred back to med surg - Azotemia - constipation - anemia Recommendations - po as tolerated - DM control - consider reglan if patient has persistent vomiting - ppi - fu labs Subjective Subjective denies N/V/D Objective Last 24 Hour Vital Signs Date Time Temp Pulse Resp B/P Pulse Ox O2 Delivery O2 Flow Rate FiO2 12/20/16 11:38 97.5 82 21 157/83 99 Room Air 12/20/16 09:14 91 164/95 12/20/16 07:58 97.5 91 21 164/95 97 Room Air 12/20/16 04:45 96.8 102 19 156/79 94 Room Air 12/20/16 00:00 97.9 84 18 141/70 91 Room Air 12/19/16 20:17 98.1 85 19 141/64 92 Room Air 12/19/16 19:10 Room Air 21 12/19/16 19:10 94 18 Room Air 12/19/16 19:10 97 Room Air 12/19/16 18:00 97.5 91 20 133/78 93 Room Air 12/19/16 16:00 97.5 20 133/78 93 Room Air 12/19/16 13:00 88 18 132/46 100 Room Air 12/19/16 12:00 98.5 82 14 128/46 98 Room Air Intake and Output 12/19/16 12/20/16 19:00 07:00 Intake Total 1321.5 ml 1500 ml Balance 1321.5 ml 1500 ml Intake Oral 320 ml IV Total 1001.5 ml 1500 ml # Voids 2 Laboratory Tests Test 12/20/16 06:10 White Blood Count 7.4 K/UL (4.8-10.8) Red Blood Count 2.97 M/UL (4.20-5.40) L Hemoglobin 9.0 G/DL (12.0-16.0) L Hematocrit 29.6 % (37.0-47.0) L Mean Corpuscular Volume 100 FL (80-99) H Mean Corpuscular Hemoglobin 30.2 PG (27.0-31.0) Mean Corpuscular Hemoglobin Concent 30.3 G/DL (32.0-36.0) L Red Cell Distribution Width 16.9 % (11.6-14.8) H Platelet Count 238 K/UL (150-450) Mean Platelet Volume 6.5 FL (6.5-10.1) Neutrophils (%) (Auto) 67.1 % (45.0-75.0) Lymphocytes (%) (Auto) 25.8 % (20.0-45.0) Monocytes (%) (Auto) 5.5 % (1.0-10.0) Eosinophils (%) (Auto) 1.1 % (0.0-3.0) Basophils (%) (Auto) 0.6 % (0.0-2.0) Sodium Level 142 mEQ/L (135-145) Potassium Level 5.0 mEQ/L (3.4-4.9) H Chloride Level 102 mEQ/L (98-107) Carbon Dioxide Level 32 mEQ/L (20-30) H Anion Gap 8 (5-15) Blood Urea Nitrogen 16 mg/dL (7-23) Creatinine 1.0 mg/dL (0.5-0.9) H Estimat Glomerular Filtration Rate > 60 mL/min (>60) Glucose Level 431 mg/dL (74-106) #H Calcium Level 8.4 mg/dL (8.6-10.2) L Height (Feet): 5 Height (Inches): 4.00 Weight (Pounds): 156 General Appearance: no apparent distress, alert Cardiovascular: normal rate Respiratory/Chest: normal breath sounds, no respiratory distress Abdominal Exam: normal bowel sounds, non tender, soft Extremities: normal range of motion Venus Hart N.PVenkatesh Dec 20, 2016 11:59
--- NOTE | 2016-12-20 13:16 | General Progress Note ---
Assessment/Plan Problem List: (1) Diabetic ketoacidosis, type I ICD Codes: E10.10 - Ketoacidosis in patient with type 1 diabetes mellitus SNOMED: 640685519 (2) GERD (gastroesophageal reflux disease) ICD Codes: K21.9 - Gastro-esophageal reflux disease without esophagitis SNOMED: 572811018 (3) PERLA (acute kidney injury) ICD Codes: N17.9 - Acute kidney failure, unspecified SNOMED: 39165258 (4) Diabetes type 1, uncontrolled ICD Codes: E10.65 - Type 1 diabetes mellitus with hyperglycemia SNOMED: 740819111, 734379981 Qualifiers: Qualified Codes: E10.8 - Type 1 diabetes mellitus with unspecified complications; E10.65 - Type 1 diabetes mellitus with hyperglycemia Assessment/Plan glucose elevated this morning - improved after correction - continue Levemir 24 units daily - continue Novolog 8 units ac tid - SSI - stable for DC home from endocrine stand point Subjective ROS Limited/Unobtainable: No Allergies: Coded Allergies: No Known Allergies (Unverified , 04/24/14) Subjective events noted - interval notes reviewed Objective Last 24 Hour Vital Signs Date Time Temp Pulse Resp B/P Pulse Ox O2 Delivery O2 Flow Rate FiO2 12/20/16 11:38 97.5 82 21 157/83 99 Room Air 12/20/16 09:14 91 164/95 12/20/16 07:58 97.5 91 21 164/95 97 Room Air 12/20/16 04:45 96.8 102 19 156/79 94 Room Air 12/20/16 00:00 97.9 84 18 141/70 91 Room Air 12/19/16 20:17 98.1 85 19 141/64 92 Room Air 12/19/16 19:10 Room Air 21 12/19/16 19:10 94 18 Room Air 12/19/16 19:10 97 Room Air 12/19/16 18:00 97.5 91 20 133/78 93 Room Air 12/19/16 16:00 97.5 20 133/78 93 Room Air Intake and Output 12/19/16 12/20/16 19:00 07:00 Intake Total 1321.5 ml 1500 ml Balance 1321.5 ml 1500 ml Intake Oral 320 ml IV Total 1001.5 ml 1500 ml # Voids 2 Laboratory Tests 12/20/16 06:10: White Blood Count 7.4, Red Blood Count 2.97L, Hemoglobin 9.0L, Hematocrit 29.6L , Mean Corpuscular Volume 100H, Mean Corpuscular Hemoglobin 30.2, Mean Corpuscular Hemoglobin Concent 30.3L, Red Cell Distribution Width 16.9H, Platelet Count 238, Mean Platelet Volume 6.5, Neutrophils (%) (Auto) 67.1, Lymphocytes (%) (Auto) 25.8, Monocytes (%) (Auto) 5.5, Eosinophils (%) (Auto) 1.1, Basophils (%) (Auto) 0.6, Sodium Level 142, Potassium Level 5.0H, Chloride Level 102, Carbon Dioxide Level 32H, Anion Gap 8, Blood Urea Nitrogen 16, Creatinine 1.0H, Estimat Glomerular Filtration Rate > 60, Glucose Level 431#H, Calcium Level 8.4L Height (Feet): 5 Height (Inches): 4.00 Weight (Pounds): 156 General Appearance: no apparent distress Neck: normal alignment Cardiovascular: normal rate Respiratory/Chest: normal breath sounds Abdomen: normal bowel sounds Pelvis: normal external exam Edema: no edema noted Arm (L), no edema noted Arm (R), no edema noted Leg (L), no edema noted Leg (R), no edema noted Pedal (L), no edema noted Pedal (R), no edema noted Generalized Objective Current Medications Medications (Trade) Dose Ordered Sig/Lizbeth Route PRN Reason Start Time Stop Time Status Last Admin Dose Admin Acetaminophen (Tylenol) 650 mg Q4H PRN ORAL T>100.5 12/19/16 16:00 01/18/17 15:59 Acetaminophen/ Hydrocodone Bitart ([place] 10/325) 1 ea Q4H PRN ORAL Severe Pain (Pain Scale 7-10) 12/19/16 16:00 12/26/16 15:59 Acetaminophen/ Hydrocodone Bitart ([place] 5/325) 1 tab Q4H PRN ORAL Moderate Pain (Pain Scale 4-6) 12/19/16 16:00 12/26/16 15:59 Al Hydroxide/Mg Hydroxide (Mylanta II) 30 ml Q6H PRN ORAL dyspepsia 12/19/16 16:00 01/18/17 15:59 Albuterol/ Ipratropium (DuoNeb 0.5-3(2.5)mg/3ml) 3 ml Q4H PRN HHN Shortness of Breath 12/19/16 16:00 12/24/16 15:59 Amlodipine Besylate (Norvasc) 10 mg DAILY ORAL 12/20/16 09:00 01/19/17 08:59 12/20/16 09:14 Clonidine HCl (Catapres) 0.1 mg Q4H PRN ORAL SBP>160 12/19/16 16:00 01/18/17 15:59 Dextrose (Dextrose 50%) STAT PRN IV Hypoglycemia 12/19/16 16:00 01/18/17 15:59 Docusate Sodium (Colace) 100 mg TWICE A DAY ORAL 12/19/16 18:00 01/18/17 17:59 Escitalopram Oxalate (Lexapro) 20 mg DAILY ORAL 12/20/16 09:00 01/19/17 08:59 12/20/16 09:25 Heparin Sodium (Porcine) (Heparin 5000 units/ml) 5,000 units EVERY 12 HOURS SUBQ 12/19/16 21:00 01/18/17 20:59 Ibuprofen (Motrin) 600 mg Q12H PRN ORAL Mild Pain (Pain Scale 1-3) 12/19/16 16:00 01/18/17 15:59 Insulin Aspart (NovoLOG) BEFORE MEALS AND HS SUBQ 12/19/16 16:30 01/18/17 16:29 12/20/16 13:09 Insulin Aspart (NovoLOG) 8 units NOVOTIAC SUBQ 12/19/16 16:50 01/18/17 16:49 12/20/16 13:08 Insulin Detemir (Levemir) 24 units DAILY SUBQ 12/20/16 09:00 01/19/17 08:59 12/20/16 09:28 Ketorolac Tromethamine (Toradol 30mg) 30 mg Q12H PRN IV Moderate Pain (Pain Scale 4-6) 12/19/16 16:00 12/24/16 15:59 Mirtazapine (Remeron) 7.5 mg BEDTIME ORAL 12/19/16 21:00 01/18/17 20:59 12/19/16 21:17 Morphine Sulfate (Morphine Sulfate) 2 mg Q4H PRN IVP Severe Pain (Pain Scale 7-10) 12/19/16 16:00 12/26/16 15:59 12/20/16 02:40 Nitroglycerin (Ntg) 0.4 mg Q5M X 3 DOSES PRN SL Prn Chest Pain 12/19/16 14:30 01/18/17 14:29 Ondansetron HCl (Zofran) 4 mg Q6H PRN IVP Nausea & Vomiting 12/19/16 16:00 01/18/17 15:59 Pantoprazole (Protonix) 40 mg DAILY ORAL 12/20/16 09:00 01/19/17 08:59 12/20/16 09:12 Polyethylene Glycol (Miralax) 17 gm BEDTIME ORAL 12/19/16 21:00 01/18/17 20:59 Polyethylene Glycol (Miralax) 17 gm DAILYPRN PRN ORAL Constipation 12/19/16 21:00 01/18/17 20:59 Pregabalin (Lyrica) 50 mg BID ORAL 12/19/16 18:00 01/18/17 17:59 12/20/16 09:14 Sodium Chloride (Sodium Chloride 1000ml bag) 1,000 ml @ 125 mls/hr Q8H IV 12/19/16 16:00 01/18/17 15:59 12/20/16 02:41 Temazepam (Restoril) 15 mg HSPRN PRN ORAL Insomnia 12/19/16 21:00 12/26/16 20:59 12/19/16 21:17 Item Value Date Time Bedside Blood Glucose 153 mg/dl H 12/20/16 1309 Bedside Blood Glucose 369 mg/dl H 12/20/16 0928 Bedside Blood Glucose 369 mg/dl H 12/20/16 0625 Bedside Blood Glucose 103 mg/dl 12/19/16 2054 Bedside Blood Glucose 109 mg/dl 12/19/16 1814 Bedside Blood Glucose 110 mg/dl 12/19/16 1150 Bedside Blood Glucose 96 mg/dl 12/19/16 0910 IVY SULLIVAN Dec 20, 2016 13:16
[2016-12-20] MEDS ORDERED: Insulin Rate Change 1 Each MISC PRN (13:30)
[2016-12-20] MEDS ORDERED: NOVOLOG100 UNITS1 SUBQ ×2 (15:33)
[2016-12-20] MEDS ORDERED: LEVEMIR FL100 UNIT/1 SUBQ (15:33)
[2016-12-20] MEDS ORDERED: MIRTAZAPINE15 M3 ORAL (15:33)
--- NOTE | 2016-12-20 15:34 | Pulmonology Progress Note ---
Assessment/Plan Problems: (1) Diabetic ketoacidosis, type I Assessment/Plan improving might go home if ok with Endo - Levemir 18 units daily - Novolog 5 units ac tid + SSI dc home Subjective ROS Limited/Unobtainable: No Constitutional: Reports: no symptoms HEENT: Repors: no symptoms Respiratory: Reports: no symptoms Cardiovascular: Reports: no symptoms Allergies: Coded Allergies: No Known Allergies (Unverified , 04/24/14) Objective Last 24 Hour Vital Signs Date Time Temp Pulse Resp B/P Pulse Ox O2 Delivery O2 Flow Rate FiO2 12/20/16 11:38 97.5 82 21 157/83 99 Room Air 12/20/16 09:14 91 164/95 12/20/16 07:58 97.5 91 21 164/95 97 Room Air 12/20/16 04:45 96.8 102 19 156/79 94 Room Air 12/20/16 00:00 97.9 84 18 141/70 91 Room Air 12/19/16 20:17 98.1 85 19 141/64 92 Room Air 12/19/16 19:10 Room Air 21 12/19/16 19:10 94 18 Room Air 12/19/16 19:10 97 Room Air 12/19/16 18:00 97.5 91 20 133/78 93 Room Air 12/19/16 16:00 97.5 20 133/78 93 Room Air Intake and Output 12/19/16 12/20/16 19:00 07:00 Intake Total 1321.5 ml 1500 ml Balance 1321.5 ml 1500 ml Intake Oral 320 ml IV Total 1001.5 ml 1500 ml # Voids 2 General Appearance: WD/WN HEENT: normocephalic Respiratory/Chest: chest wall non-tender, normal breath sounds Cardiovascular: normal peripheral pulses, normal rate Abdomen: normal bowel sounds, soft, non tender Genitourinary: normal external genitalia Extremities: no clubbing Skin: no rash Laboratory Tests 12/20/16 06:10: White Blood Count 7.4, Red Blood Count 2.97L, Hemoglobin 9.0L, Hematocrit 29.6L , Mean Corpuscular Volume 100H, Mean Corpuscular Hemoglobin 30.2, Mean Corpuscular Hemoglobin Concent 30.3L, Red Cell Distribution Width 16.9H, Platelet Count 238, Mean Platelet Volume 6.5, Neutrophils (%) (Auto) 67.1, Lymphocytes (%) (Auto) 25.8, Monocytes (%) (Auto) 5.5, Eosinophils (%) (Auto) 1.1, Basophils (%) (Auto) 0.6, Sodium Level 142, Potassium Level 5.0H, Chloride Level 102, Carbon Dioxide Level 32H, Anion Gap 8, Blood Urea Nitrogen 16, Creatinine 1.0H, Estimat Glomerular Filtration Rate > 60, Glucose Level 431#H, Calcium Level 8.4L Current Medications Medications (Trade) Dose Ordered Sig/Lizbeth Route PRN Reason Start Time Stop Time Status Last Admin Dose Admin Acetaminophen (Tylenol) 650 mg Q4H PRN ORAL T>100.5 12/19/16 16:00 01/18/17 15:59 Acetaminophen/ Hydrocodone Bitart ([place] 10/325) 1 ea Q4H PRN ORAL Severe Pain (Pain Scale 7-10) 12/19/16 16:00 12/26/16 15:59 Acetaminophen/ Hydrocodone Bitart ([place] 5/325) 1 tab Q4H PRN ORAL Moderate Pain (Pain Scale 4-6) 12/19/16 16:00 12/26/16 15:59 Al Hydroxide/Mg Hydroxide (Mylanta II) 30 ml Q6H PRN ORAL dyspepsia 12/19/16 16:00 01/18/17 15:59 Albuterol/ Ipratropium (DuoNeb 0.5-3(2.5)mg/3ml) 3 ml Q4H PRN HHN Shortness of Breath 12/19/16 16:00 12/24/16 15:59 Amlodipine Besylate (Norvasc) 10 mg DAILY ORAL 12/20/16 09:00 01/19/17 08:59 12/20/16 09:14 Clonidine HCl (Catapres) 0.1 mg Q4H PRN ORAL SBP>160 12/19/16 16:00 01/18/17 15:59 Dextrose (Dextrose 50%) STAT PRN IV Hypoglycemia 12/19/16 16:00 01/18/17 15:59 Docusate Sodium (Colace) 100 mg TWICE A DAY ORAL 12/19/16 18:00 01/18/17 17:59 Escitalopram Oxalate (Lexapro) 20 mg DAILY ORAL 12/20/16 09:00 01/19/17 08:59 12/20/16 09:25 Heparin Sodium (Porcine) (Heparin 5000 units/ml) 5,000 units EVERY 12 HOURS SUBQ 12/19/16 21:00 01/18/17 20:59 Ibuprofen (Motrin) 600 mg Q12H PRN ORAL Mild Pain (Pain Scale 1-3) 12/19/16 16:00 01/18/17 15:59 Insulin Aspart (NovoLOG) BEFORE MEALS AND HS SUBQ 12/19/16 16:30 01/18/17 16:29 12/20/16 13:09 Insulin Aspart (NovoLOG) 8 units NOVOTIAC SUBQ 12/19/16 16:50 01/18/17 16:49 12/20/16 13:08 Insulin Detemir (Levemir) 24 units DAILY SUBQ 12/20/16 09:00 01/19/17 08:59 12/20/16 09:28 Ketorolac Tromethamine (Toradol 30mg) 30 mg Q12H PRN IV Moderate Pain (Pain Scale 4-6) 12/19/16 16:00 12/24/16 15:59 Mirtazapine (Remeron) 7.5 mg BEDTIME ORAL 12/19/16 21:00 01/18/17 20:59 12/19/16 21:17 Morphine Sulfate (Morphine Sulfate) 2 mg Q4H PRN IVP Severe Pain (Pain Scale 7-10) 12/19/16 16:00 12/26/16 15:59 12/20/16 15:23 Nitroglycerin (Ntg) 0.4 mg Q5M X 3 DOSES PRN SL Prn Chest Pain 12/19/16 14:30 01/18/17 14:29 Ondansetron HCl (Zofran) 4 mg Q6H PRN IVP Nausea & Vomiting 12/19/16 16:00 01/18/17 15:59 Pantoprazole (Protonix) 40 mg DAILY ORAL 12/20/16 09:00 01/19/17 08:59 12/20/16 09:12 Polyethylene Glycol (Miralax) 17 gm BEDTIME ORAL 12/19/16 21:00 01/18/17 20:59 Polyethylene Glycol (Miralax) 17 gm DAILYPRN PRN ORAL Constipation 12/19/16 21:00 01/18/17 20:59 Pregabalin (Lyrica) 50 mg BID ORAL 12/19/16 18:00 01/18/17 17:59 12/20/16 09:14 Sodium Chloride (Sodium Chloride 1000ml bag) 1,000 ml @ 125 mls/hr Q8H IV 12/19/16 16:00 01/18/17 15:59 12/20/16 13:13 Temazepam (Restoril) 15 mg HSPRN PRN ORAL Insomnia 12/19/16 21:00 12/26/16 20:59 12/19/16 21:17 VANESSA SAGASTUME Dec 20, 2016 15:34
[2016-12-20 16:12] VITALS: BP 136/73
--- NOTE | 2016-12-20 17:11 | Internal Med Progress Note ---
Subjective Date of Service: Dec 20, 2016 Physician Name Anastacio Jacobsen Attending Physician Aries Hardin MD Current Medications Medications (Trade) Dose Ordered Sig/Lizbeth Route PRN Reason Start Time Stop Time Status Last Admin Dose Admin Acetaminophen (Tylenol) 650 mg Q4H PRN ORAL T>100.5 12/19/16 16:00 01/18/17 15:59 Acetaminophen/ Hydrocodone Bitart (Means 10/325) 1 ea Q4H PRN ORAL Severe Pain (Pain Scale 7-10) 12/19/16 16:00 12/26/16 15:59 Acetaminophen/ Hydrocodone Bitart (Means 5/325) 1 tab Q4H PRN ORAL Moderate Pain (Pain Scale 4-6) 12/19/16 16:00 12/26/16 15:59 Al Hydroxide/Mg Hydroxide (Mylanta II) 30 ml Q6H PRN ORAL dyspepsia 12/19/16 16:00 01/18/17 15:59 Albuterol/ Ipratropium (DuoNeb 0.5-3(2.5)mg/3ml) 3 ml Q4H PRN HHN Shortness of Breath 12/19/16 16:00 12/24/16 15:59 Amlodipine Besylate (Norvasc) 10 mg DAILY ORAL 12/20/16 09:00 01/19/17 08:59 12/20/16 09:14 Clonidine HCl (Catapres) 0.1 mg Q4H PRN ORAL SBP>160 12/19/16 16:00 01/18/17 15:59 Dextrose (Dextrose 50%) STAT PRN IV Hypoglycemia 12/19/16 16:00 01/18/17 15:59 Docusate Sodium (Colace) 100 mg TWICE A DAY ORAL 12/19/16 18:00 01/18/17 17:59 Escitalopram Oxalate (Lexapro) 20 mg DAILY ORAL 12/20/16 09:00 01/19/17 08:59 12/20/16 09:25 Heparin Sodium (Porcine) (Heparin 5000 units/ml) 5,000 units EVERY 12 HOURS SUBQ 12/19/16 21:00 01/18/17 20:59 Ibuprofen (Motrin) 600 mg Q12H PRN ORAL Mild Pain (Pain Scale 1-3) 12/19/16 16:00 01/18/17 15:59 Insulin Aspart (NovoLOG) BEFORE MEALS AND HS SUBQ 12/19/16 16:30 01/18/17 16:29 12/20/16 13:09 Insulin Aspart (NovoLOG) 8 units NOVOTIAC SUBQ 12/19/16 16:50 01/18/17 16:49 12/20/16 13:08 Insulin Detemir (Levemir) 24 units DAILY SUBQ 12/20/16 09:00 01/19/17 08:59 12/20/16 09:28 Ketorolac Tromethamine (Toradol 30mg) 30 mg Q12H PRN IV Moderate Pain (Pain Scale 4-6) 12/19/16 16:00 12/24/16 15:59 Mirtazapine (Remeron) 7.5 mg BEDTIME ORAL 12/19/16 21:00 01/18/17 20:59 12/19/16 21:17 Morphine Sulfate (Morphine Sulfate) 2 mg Q4H PRN IVP Severe Pain (Pain Scale 7-10) 12/19/16 16:00 12/26/16 15:59 12/20/16 15:23 Nitroglycerin (Ntg) 0.4 mg Q5M X 3 DOSES PRN SL Prn Chest Pain 12/19/16 14:30 01/18/17 14:29 Ondansetron HCl (Zofran) 4 mg Q6H PRN IVP Nausea & Vomiting 12/19/16 16:00 01/18/17 15:59 Pantoprazole (Protonix) 40 mg DAILY ORAL 12/20/16 09:00 01/19/17 08:59 12/20/16 09:12 Polyethylene Glycol (Miralax) 17 gm BEDTIME ORAL 12/19/16 21:00 01/18/17 20:59 Polyethylene Glycol (Miralax) 17 gm DAILYPRN PRN ORAL Constipation 12/19/16 21:00 01/18/17 20:59 Pregabalin (Lyrica) 50 mg BID ORAL 12/19/16 18:00 01/18/17 17:59 12/20/16 09:14 Sodium Chloride (Sodium Chloride 1000ml bag) 1,000 ml @ 125 mls/hr Q8H IV 12/19/16 16:00 01/18/17 15:59 12/20/16 13:13 Temazepam (Restoril) 15 mg HSPRN PRN ORAL Insomnia 12/19/16 21:00 12/26/16 20:59 12/19/16 21:17 Allergies: Coded Allergies: No Known Allergies (Unverified , 04/24/14) ROS Limited/Unobtainable: No Constitutional: Reports: no symptoms HEENT: Reports: no symptoms Cardiovascular: Reports: no symptoms Respiratory: Reports: no symptoms Gastrointestinal/Abdominal: Reports: no symptoms Genitourinary: Reports: no symptoms Neurologic/Psychiatric: Reports: no symptoms Subjective 46 YO F admitted with diabetic ketoacidosis. Cover for Int Med-Dr Hardin. Fingerstick still greater than 300. Await discharge home Objective Last Vital Signs Date Time Temp Pulse Resp B/P Pulse Ox O2 Delivery O2 Flow Rate FiO2 12/20/16 16:12 98.3 79 20 136/73 99 Room Air 12/19/16 19:10 21 12/18/16 07:40 2.0 Laboratory Tests Test 12/20/16 06:10 12/20/16 15:00 White Blood Count 7.4 K/UL (4.8-10.8) Red Blood Count 2.97 M/UL (4.20-5.40) L Hemoglobin 9.0 G/DL (12.0-16.0) L Hematocrit 29.6 % (37.0-47.0) L Mean Corpuscular Volume 100 FL (80-99) H Mean Corpuscular Hemoglobin 30.2 PG (27.0-31.0) Mean Corpuscular Hemoglobin Concent 30.3 G/DL (32.0-36.0) L Red Cell Distribution Width 16.9 % (11.6-14.8) H Platelet Count 238 K/UL (150-450) Mean Platelet Volume 6.5 FL (6.5-10.1) Neutrophils (%) (Auto) 67.1 % (45.0-75.0) Lymphocytes (%) (Auto) 25.8 % (20.0-45.0) Monocytes (%) (Auto) 5.5 % (1.0-10.0) Eosinophils (%) (Auto) 1.1 % (0.0-3.0) Basophils (%) (Auto) 0.6 % (0.0-2.0) Sodium Level 142 mEQ/L (135-145) Potassium Level 5.0 mEQ/L (3.4-4.9) H Chloride Level 102 mEQ/L (98-107) Carbon Dioxide Level 32 mEQ/L (20-30) H Anion Gap 8 (5-15) Blood Urea Nitrogen 16 mg/dL (7-23) Creatinine 1.0 mg/dL (0.5-0.9) H Estimat Glomerular Filtration Rate > 60 mL/min (>60) Glucose Level 431 mg/dL (74-106) #H Calcium Level 8.4 mg/dL (8.6-10.2) L Stool Occult Blood Pending Intake and Output 12/19/16 12/20/16 19:00 07:00 Intake Total 1321.5 ml 1500 ml Balance 1321.5 ml 1500 ml Intake Oral 320 ml IV Total 1001.5 ml 1500 ml # Voids 2 Objective General: alert, cooperative, no distress, appears stated age Head: normocephalic, without obvious abnormality, atraumatic Eyes: conjunctivae/corneas clear. PERRL, EOM's intact Throat: lips, mucosa, and tongue normal. MMM Neck: supple, symmetrical, trachea midline, and no JVD Lungs: clear to auscultation bilaterally Heart: regular rate and rhythm, S1, S2 normal, no murmur, click, rub or gallop Abdomen: soft, non-tender, non-distended, bowel sounds normal; no masses or organomegaly Extremities: extremities normal, atraumatic, no cyanosis or edema Pulses: 2+ and symmetric Skin: skin color, texture, turgor normal; no rashes or lesions Neurologic: grossly normal, no focal deficits Assessment/Plan Problem List: (1) Hypertension Assessment & Plan: Continue norvasc. (2) Major depression Assessment & Plan: Continue remeron and lexapro. See psych consult. (3) Nausea & vomiting Assessment & Plan: See GI note. (4) Diabetic ketoacidosis, type I Assessment & Plan: See endocrinology note. (5) Diabetes type 1, uncontrolled Assessment & Plan: See endocrinology note. D/C insulin drip; continue levemir and novolog (6) Diabetic gastroparesis Assessment & Plan: See GI consult. (7) GERD (gastroesophageal reflux disease) Assessment & Plan: Continue protonix Status: stable Assessment/Plan Discharge home today. ANASTACIO JACOBSEN Dec 20, 2016 17:11
--- NOTE | 2016-12-20 23:51 | General Progress Note ---
Assessment/Plan Status: doing well, stable Assessment/Plan mdd, dm lexapro 20 mg qam Subjective Constitutional: Reports: malaise, weakness Neurologic/Psychiatric: Reports: anxiety, depressed, emotional problems Allergies: Coded Allergies: No Known Allergies (Unverified , 04/24/14) Objective Last 24 Hour Vital Signs Date Time Temp Pulse Resp B/P Pulse Ox O2 Delivery O2 Flow Rate FiO2 12/20/16 20:01 96 Room Air 12/20/16 20:01 Room Air 21 12/20/16 20:00 95 18 Room Air 12/20/16 16:12 98.3 79 20 136/73 99 Room Air 12/20/16 11:38 97.5 82 21 157/83 99 Room Air 12/20/16 09:14 91 164/95 12/20/16 07:58 97.5 91 21 164/95 97 Room Air 12/20/16 04:45 96.8 102 19 156/79 94 Room Air 12/20/16 00:00 97.9 84 18 141/70 91 Room Air Intake and Output 12/19/16 12/20/16 19:00 07:00 Intake Total 1321.5 ml 1500 ml Balance 1321.5 ml 1500 ml Intake Oral 320 ml IV Total 1001.5 ml 1500 ml # Voids 2 Laboratory Tests 12/20/16 06:10: White Blood Count 7.4, Red Blood Count 2.97L, Hemoglobin 9.0L, Hematocrit 29.6L , Mean Corpuscular Volume 100H, Mean Corpuscular Hemoglobin 30.2, Mean Corpuscular Hemoglobin Concent 30.3L, Red Cell Distribution Width 16.9H, Platelet Count 238, Mean Platelet Volume 6.5, Neutrophils (%) (Auto) 67.1, Lymphocytes (%) (Auto) 25.8, Monocytes (%) (Auto) 5.5, Eosinophils (%) (Auto) 1.1, Basophils (%) (Auto) 0.6, Sodium Level 142, Potassium Level 5.0H, Chloride Level 102, Carbon Dioxide Level 32H, Anion Gap 8, Blood Urea Nitrogen 16, Creatinine 1.0H, Estimat Glomerular Filtration Rate > 60, Glucose Level 431#H, Calcium Level 8.4L 12/20/16 15:00: Stool Occult Blood [Pending] Height (Feet): 5 Height (Inches): 4.00 Weight (Pounds): 156 General Appearance: no apparent distress, alert Neurologic: alert, oriented x 3, responsive, depressed affect Elisha Hardy M.D. Dec 20, 2016 23:51
--- NOTE | 2016-12-21 21:15 | Discharge Summary ---
Discharge Summary Hospital Course Date of Admission Dec 14, 2016 at 02:22 Date of Discharge Dec 20, 2016 at 19:00 Admitting Diagnosis Dehydration, Uncontrolled DM HPI Tricia Carpio is a 46 year old female who was admitted on Dec 14, 2016 at 02 :22 for Dehydration/Uncontrolled Diabetes Mellitus Hospital Course [id number] Discharge Discharge Disposition Patient was discharged to Home (01) Discharge Diagnoses: Estela Anthony NP Dec 21, 2016 21:15
--- NOTE | 2016-12-22 06:45 | Discharge Summary 2 SIG ---
DATE OF ADMISSION: 12/14/2016 DATE OF DISCHARGE: 12/20/2016 CONSULTANTS: 1. Elisha Hardy M.D. 2. Chapin Paredes M.D. 3. Judd Hayes M.D. 4. Fei Patel M.D. BRIEF HOSPITAL COURSE: The patient is a 46-year-old female with a history of type 1 diabetes, who presented with complaints of elevated blood sugar. She was recently admitted to [facility] in November 2016 and diagnosed with diabetic ketoacidosis. She again presented to [facility] stating her blood sugars have been high at ED. The patient stated that her sugars have been high over 600. She took 20 units of Humalog, fell asleep, woke up four hours later, and blood sugar was still high. On arrival to ED, glucose level was 181. She was recently seen at emergency room three days prior and because of continued symptoms since three days ago, the patient was admitted for further workup and was placed on IV hydration and the patient was admitted to telemetry. The patient was initially admitted to telemetry and was transferred to ICU for insulin drip as anion gap was elevated and was started on sodium bicarbonate. Dr. Hayes was consulted. Anion gap closed. Insulin drip was discontinued and the patient was given Levemir and NovoLog. She had nausea and vomiting and also complained of diarrhea and has history of GERD and diabetic gastroparesis. Symptoms of nausea and vomiting appear to be related to ketoacidosis and due to diabetic gastroparesis is more predisposed to vomiting. She was treated conservatively with proton pump inhibitors. She came in with elevated creatinine of 2.2. Renal ultrasound showed no evidence of obstructive nephropathy with questionable increased echogenicity of the kidney. Acute renal failure likely due to dehydration improved after IV hydration. She was transferred out of ICU and was seen by Dr. Hardy for major depressive disorder and was given Lexapro 20 mg every morning. Blood glucose monitoring had been labile and insulins were adjusted. She was continued on 24 units of Levemir and 8 units before meals t.i.d. together with sliding scale. She was advised diabetic diet. She again was transferred back to ICU for recurrence of diabetic ketoacidosis on 12/18/2016 and was again restarted on insulin drip and discontinued after anion gap closed. She was continued on Levemir 18 units daily and NovoLog 5 units before meals t.i.d. together with sliding scale. The patient was discharged home. FINAL DIAGNOSES: 1. Diabetic ketoacidosis type 1. 2. Diabetes mellitus type 1, uncontrolled. 3. Diabetic gastroparesis. 4. Major depressive disorder. 5. Hypertension. 6. Gastroesophageal reflux disease. 7. Nausea and vomiting. 8. Acute kidney injury. 9. Dehydration. 10. Hypoalbuminemia. 11. Mild anemia. 12. Acute renal failure on chronic kidney disease. 13. Noncompliance. Anastacio Wright M.D. I have been assigned to dictate discharge summary on this account and I was not involved in the patient's management. Estela Anthony N.P. DR: Mika JOB#: [id number] CC:
== END 2016-12-20 19:00 | disposition home or self-care (01) | DRG 638 ==
LOC: EMR 01:05 → 2E 02:22 → EDBEDREQ 03:06 → ICU 11:33 → 3E 12-15 15:36 → ICU 12-18 12:40 → 4E 12-19 14:42
DX: E10.10 Type 1 diabetes mellitus with ketoacidosis without coma (principal); N17.9 Acute kidney failure, unspecified; K31.84 Gastroparesis; E10.22 Type 1 diabetes mellitus with diabetic chronic kidney disease; E10.43 Type 1 diabetes mellitus with diabetic autonomic (poly)neuropathy; E10.649 Type 1 diabetes mellitus with hypoglycemia without coma; F33.9 Major depressive disorder, recurrent, unspecified; E88.09 Other disorders of plasma-protein metabolism, not elsewhere classified; E86.0 Dehydration; D64.9 Anemia, unspecified; I12.9 Hypertensive chronic kidney disease with stage 1 through stage 4 chronic kidney disease, or unspecified chronic kidney disease; K59.00 Constipation, unspecified; N18.9 Chronic kidney disease, unspecified; K21.9 Gastro-esophageal reflux disease without esophagitis; Z79.4 Long term (current) use of insulin; Z91.14 Patient's other noncompliance with medication regimen
CPT/HCPCS: 36415; 76775; 80048; 80053; 80061; 81001; 82270; 82947; 82962; 83036; 83540; 83550; 83615; 83735; 84100; 84443; 84484; 85025; 87081; 93005; 94664; 94760; J1815; J2405; S5561

== ENCOUNTER 2017-03-19 08:41 | Inpatient (IN) | payer OTHER ==
[~2017-03-19] VITALS: Ht 160 cm; Wt 59.0 kg
[2017-03-19] VITALS (9 sets, daily range): BP systolic 116–186; BP diastolic 40–94
[~2017-03-19 08:41] MED LIST changes: +MIRTAZAPINE15 M3 ORAL; +NOVOLOG100 UNITS1 SUBQ
--- NOTE | 2017-03-19 09:09 | Emergency Room Report ---
History of Present Illness General Chief Complaint: Abnormal Labs Source: Patient Present Illness HPI 46-year-old female presents ED complaining of hyperglycemia. States that she checked her blood sugar this morning and it was critically high. Took 8 units of insulin. Patient has history of diabetes. States that she had a lot of stress yesterday and whenever she is stressed her sugar gets high. Patient states she feels okay. Denies any dizziness or weakness. Accu-Chek in ED 126. Patient states she's had frequent history of DKA. Denies fevers or chills. Denies nausea or vomiting. No other aggravating relieving factors. Denies any other associated symptoms Allergies: Coded Allergies: No Known Allergies (Unverified , 04/24/14) Patient History Past Medical History: DM, HTN, GERD Past Surgical History: none Pertinent Family History: none Social History: Denies: smoking, alcohol use, drug use Now: No Immunizations: UTD Reviewed Nursing Documentation: PMH: Agreed, PSxH: Agreed Nursing Documentation-PMH Hx Cardiac Problems: Yes Hx Hypertension: Yes Hx Pacemaker: No Hx Diabetes: Yes - DM type 1, DKA Hx Cancer: No Hx Gastrointestinal Problems: Yes - Diarrhea, Gastritis, dehydration Hx Neurological Problems: No Hx Concentration Difficulty: No Review of Systems All Other Systems: negative except mentioned in HPI Physical Exam Vital Signs Date Time Temp Pulse Resp B/P (MAP) Pulse Ox O2 Delivery O2 Flow Rate FiO2 03/19/17 08:43 98.1 97 20 162/84 99 Room Air Sp02 EP Interpretation: reviewed, normal General Appearance: no apparent distress, alert, GCS 15, non-toxic Head: normocephalic, atraumatic Eyes: bilateral eye normal inspection, bilateral eye PERRL ENT: hearing grossly normal, normal pharynx, no angioedema, normal voice Neck: full range of motion, supple/symm/no masses Respiratory: chest non-tender, lungs clear, normal breath sounds, speaking full sentences Cardiovascular #1: regular rate, rhythm, no edema Cardiovascular #2: 2+ carotid (R), 2+ carotid (L), 2+ radial (R), 2+ radial (L) , 2+ dorsalis pedis (R), 2+ dorsalis pedis (L) Gastrointestinal: normal bowel sounds, non tender, soft, non-distended, no guarding, no rebound Rectal: deferred Genitourinary: normal inspection, no CVA tenderness Musculoskeletal: back normal, gait/station normal, normal range of motion, non- tender Neurologic: alert, oriented x3, responsive, motor strength/tone normal, sensory intact, speech normal Psychiatric: judgement/insight normal, memory normal, mood/affect normal, no suicidal/homicidal ideation Reflexes: 3+ bicep (R), 3+ bicep (L), 3+ tricep (R), 3+ tricep (L), 3+ knee (R) , 3+ knee (L) Skin: normal color, no rash, warm/dry, well hydrated Lymphatic: no adenopathy Medical Decision Making Diagnostic Impression: Primary Impression: ARF (acute renal failure) Qualified Codes: N17.9 - Acute kidney failure, unspecified Additional Impression: Dehydration ER Course Hospital Course 46-year-old male presenting to ED with generalized weakness, critical accucheck at home Differential diagnoses include: ETOH/drug ingestion, sepsis, DKA Clinical course Patient placed on stretcher. On monitor technician. After initial history and physical I ordered labs, IV fluids, urine Patient and difficult IV access. I placed a peripheral EJ line Labs-glucose 95, Cr 1.5, bicarbonate ok. no Leukocytosis noted. acetones ketones small Patient states she still feels dehydrated and weak. We will admit for IV hydration Case discussed with Dr. Hardin and he agreed to accept the patient to his service for further care and support i. I feel this is a highly complex case requiring extensive working including EKG/Rhythm strip, Xray/CT/US, Blood/urine lab work, repeat exams while in ED, and administration of strong opiates/narcotics for pain control, admission to hospital or close patient follow up. diagnosis - ARF, dehydration admitted to floor in serious condition Labs Test 03/19/17 08:53 03/19/17 09:40 Urine Color Pale yellow Urine Appearance Clear Urine pH 5 (4.5-8.0) Urine Specific [place] 1.020 (1.005-1.035) Urine Protein 2+ (NEGATIVE) Urine Glucose (UA) 4+ (NEGATIVE) Urine Ketones 4+ (NEGATIVE) Urine Occult Blood 1+ (NEGATIVE) Urine Nitrite Negative (NEGATIVE) Urine Bilirubin Negative (NEGATIVE) Urine Urobilinogen Normal MG/DL (0.0-1.0) Urine Leukocyte Esterase 1+ (NEGATIVE) Urine RBC 0-2 /HPF (0 - 2) Urine WBC 2-4 /HPF (0 - 2) Urine Squamous Epithelial Cells Few /LPF (NONE/OCC) Urine Bacteria Few /HPF (NONE) Urine HCG, Qualitative Negative White Blood Count 6.3 K/UL (4.8-10.8) Red Blood Count 3.74 M/UL (4.20-5.40) Hemoglobin 11.3 G/DL (12.0-16.0) Hematocrit 36.7 % (37.0-47.0) Mean Corpuscular Volume 98 FL (80-99) Mean Corpuscular Hemoglobin 30.3 PG (27.0-31.0) Mean Corpuscular Hemoglobin Concent 30.9 G/DL (32.0-36.0) Red Cell Distribution Width 14.7 % (11.6-14.8) Platelet Count 259 K/UL (150-450) Mean Platelet Volume 7.4 FL (6.5-10.1) Neutrophils (%) (Auto) 65.6 % (45.0-75.0) Lymphocytes (%) (Auto) 28.1 % (20.0-45.0) Monocytes (%) (Auto) 5.3 % (1.0-10.0) Eosinophils (%) (Auto) 0.1 % (0.0-3.0) Basophils (%) (Auto) 1.0 % (0.0-2.0) Sodium Level 138 mEQ/L (135-145) Potassium Level 3.9 mEQ/L (3.4-4.9) Chloride Level 93 mEQ/L (98-107) Carbon Dioxide Level 23 mEQ/L (20-30) Anion Gap 22 (5-15) Blood Urea Nitrogen 14 mg/dL (7-23) Creatinine 1.5 mg/dL (0.5-0.9) Estimat Glomerular Filtration Rate 45.5 mL/min (>60) Glucose Level 95 mg/dL (74-106) Calcium Level 9.6 mg/dL (8.6-10.2) Magnesium Level 1.5 mg/dL (1.7-2.5) Total Bilirubin 0.4 mg/dL (0.0-1.2) Aspartate Amino Transf (AST/SGOT) 31 U/L (5-40) Alanine Aminotransferase (ALT/SGPT) 26 U/L (3-33) Alkaline Phosphatase 108 U/L (35-104) Total Protein 6.9 g/dL (6.6-8.7) Albumin 3.7 g/dL (3.5-5.2) Globulin 3.2 g/dL Albumin/Globulin Ratio 1.1 (1.0-2.7) Acetone Level Positive-small (NEGATIVE) Last Vital Signs Date Time Temp Pulse Resp B/P (MAP) Pulse Ox O2 Delivery O2 Flow Rate FiO2 03/19/17 08:43 98.1 97 20 162/84 99 Room Air Status: improved Disposition: ADMITTED INPATIENT Condition: Serious Referrals: Aries Hardin MD (PCP) MAYTE RUSSELL M.D. Mar 19, 2017 09:09
[2017-03-19 09:23] LABS: APPEARANCE,URINE CLEAR; KETONES,URINE 4+ (NEGATIVE); LEUKOCYTE ESTERASE ,URINE 1+ (NEGATIVE); NITRITE,URINE NEGATIVE (NEGATIVE); PH,URINE 5 (4.5-8.0); PROTEIN,URINE 2+ (NEGATIVE); UROBILINOGEN,URINE NORMAL MG/DL (0.0-1.0)
[2017-03-19 09:31] LABS: BACTERIA,URINE FEW /HPF; RBC,URINE 0-2 /HPF (0 - 2); SQUAMOUS EPITHELIAL CELL,UR FEW /LPF (NONE/OCC)
[2017-03-19 09:54] LABS: EOSINOPHILS % (AUTO) 0.1 % (0.0-3.0); LYMPHOCYTES % (AUTO) 28.1 % (20.0-45.0); MEAN CORPUSCULAR HEMOGLOBIN 30.3 PG (27.0-31.0); MEAN CORPUSCULAR HGB CONC 30.9 G/DL (32.0-36.0); MEAN CORPUSCULAR VOLUME 98 FL (80-99); MEAN PLATELET VOLUME 7.4 FL (6.5-10.1); MONOCYTES % (AUTO) 5.3 % (1.0-10.0); NEUTROPHILS % (AUTO) 65.6 % (45.0-75.0); PLATELET COUNT 259 K/UL (150-450); RED BLOOD COUNT 3.74 M/UL (4.20-5.40); RED CELL DISTRIBUTION WIDTH 14.7 % (11.6-14.8); WHITE BLOOD COUNT 6.3 K/UL (4.8-10.8)
[2017-03-19 10:07] LABS: ALANINE AMINOTRANSFERASE 26 U/L (3-33); ALBUMIN/GLOBULIN RATIO 1.1 (1.0-2.7); ANION GAP 22 (5-15); ASPARTATE AMINO TRANSFERASE 31 U/L (5-40); CALCIUM 9.6 mg/dL (8.6-10.2); CARBON DIOXIDE 23 mEQ/L (20-30); CHLORIDE 93 mEQ/L (98-107); CREATININE 1.5 mg/dL (0.5-0.9); GLOMERULAR FILTRATION RATE 45.5 mL/min (>60); HEMOLYSIS 4; MAGNESIUM 1.5 mg/dL (1.7-2.5); POTASSIUM 3.9 mEQ/L (3.4-4.9); SODIUM 138 mEQ/L (135-145); TOTAL PROTEIN 6.9 g/dL (6.6-8.7)
[2017-03-19] MEDS ORDERED: Ketorolac 30mg Inj IV PRN ×2 (12:45→21:00)
[2017-03-19] MEDS ORDERED: Nitroglycerin Subl 0.4mg tab SL PRN ×2 (12:45→20:30)
[2017-03-19] MEDS ORDERED: Mylanta II UD 30ml ORAL PRN (12:45)
[2017-03-19] MEDS ORDERED: Albuterol/Ipratropium 3ml neb HHN PRN ×2 (12:45→20:45)
[2017-03-19] MEDS ORDERED: Morphine Sulfate 2mg/ml Inj IVP PRN (12:45)
[2017-03-19] MEDS ORDERED: NovoLOG Insulin Flexpen SUBQ SCH (16:30)
--- NOTE | 2017-03-19 17:30 | History & Physical ---
History and Physical History & Physicial Dictated for Int Med-Dr Hardin no. [id number]. CHRISTOS JACOBSEN Mar 19, 2017 17:30
[2017-03-19] MEDS ORDERED: Lyrica 50mg cap ORAL SCH (18:00)
--- NOTE | 2017-03-19 18:21 | Consultation ---
History of Present Illness General Date patient seen: Mar 19, 2017 Chief Complaint: Abnormal Labs Referring physician: Dr Hardin Reason for Consultation: inpatient management Present Illness HPI 46-year-old female with hx of DM, recurrent DKA,presented to ED complaining of hyperglycemia. States that she checked her blood sugar this morning and it was critically high. Took 8 units of insulin. Patient states she feels okay. Denies any dizziness or weakness. Denies nausea or vomiting. No other aggravating relieving factors. Denies any other associated symptoms. She is admitted for uncontrolled DM. Allergies: Coded Allergies: No Known Allergies (Unverified , 04/24/14) Medication History Scheduled Amlodipine Besylate (Norvasc), 10 MG ORAL DAILY Escitalopram Oxalate* (Lexapro*), 20 MG ORAL DAILY, (Reported) Insulin Aspart (Novolog Flexpen), 0 UNITS SUBQ BEFORE MEALS AND HS Insulin Aspart (Novolog Flexpen), 8 UNITS SUBQ NOVOTIAC Insulin Detemir (Levemir Flexpen), 18 SUBQ DAILY, (Reported) Insulin Detemir (Levemir Flexpen), 24 UNITS SUBQ DAILY Meloxicam* (Meloxicam*), 15 MG PO DAILY, (Reported) Mirtazapine* (Mirtazapine*), 7.5 MG ORAL BEDTIME Pantoprazole* (Protonix*), 40 MG ORAL DAILY, (Reported) Pregabalin (Lyrica), 50 MG PO BID, (Reported) Valsartan (Diovan), 160 MG ORAL BID Scheduled PRN Clonidine HCl (Clonidine HCl), 0.1 MG ORAL Q4H PRN Ibuprofen* (Motrin*), 600 MG ORAL Q6H PRN for For Pain, (Reported) Ondansetron Odt* (Zofran Odt*), 4 MG ORAL Q6H PRN for Nausea & Vomiting Miscellaneous Medications Insulin Lispro (Humalog), 0 SUBQ, (Reported) Potassium Chloride (Potassium Chloride), 10 MEQ PO, (Reported) Patient History Healthcare decision maker Sarah Ryan Resuscitation status Full Code Advanced Directive on File Past Medical/Surgical History Past Medical/Surgical History: (1) Diabetes (2) Non-compliance with treatment Review of Systems All Other Systems: negative except mentioned in HPI Physical Exam General Appearance: WD/WN Lines, tubes and drains: peripheral HEENT: normocephalic, atraumatic Neck: non-tender, normal alignment Respiratory/Chest: chest wall non-tender, lungs clear Cardiovascular/Chest: normal peripheral pulses Abdomen: normal bowel sounds Genitourinary/Rectal: normal genital exam Extremities: normal range of motion Last 24 Hour Vital Signs Date Time Temp Pulse Resp B/P (MAP) Pulse Ox O2 Delivery O2 Flow Rate FiO2 03/19/17 16:00 98.1 110 17 118/56 Room Air 03/19/17 15:13 98.1 03/19/17 13:56 86 18 172/82 100 Room Air 03/19/17 13:56 86 18 172/82 100 Room Air 100 03/19/17 12:46 98.2 103 14 116/51 100 Room Air 03/19/17 10:00 97.6 91 13 186/94 100 Room Air 100 03/19/17 08:50 97.6 94 15 174/85 100 Room Air 03/19/17 08:50 94 15 Room Air 100 03/19/17 08:43 98.1 97 20 162/84 99 Room Air Intake and Output 03/19/17 03/20/17 19:00 07:00 Intake Total 2000 ml Balance 2000 ml Intake IV Total 2000 ml # Voids 1 Laboratory Tests Test 03/19/17 08:53 03/19/17 09:40 Urine Color Pale yellow Urine Appearance Clear Urine pH 5 (4.5-8.0) Urine Specific [place] 1.020 (1.005-1.035) Urine Protein 2+ (NEGATIVE) H Urine Glucose (UA) 4+ (NEGATIVE) H Urine Ketones 4+ (NEGATIVE) H Urine Occult Blood 1+ (NEGATIVE) H Urine Nitrite Negative (NEGATIVE) Urine Bilirubin Negative (NEGATIVE) Urine Urobilinogen Normal MG/DL (0.0-1.0) Urine Leukocyte Esterase 1+ (NEGATIVE) H Urine RBC 0-2 /HPF (0 - 2) Urine WBC 2-4 /HPF (0 - 2) Urine Squamous Epithelial Cells Few /LPF (NONE/OCC) Urine Bacteria Few /HPF (NONE) Urine HCG, Qualitative Negative White Blood Count 6.3 K/UL (4.8-10.8) Red Blood Count 3.74 M/UL (4.20-5.40) L Hemoglobin 11.3 G/DL (12.0-16.0) L Hematocrit 36.7 % (37.0-47.0) L Mean Corpuscular Volume 98 FL (80-99) Mean Corpuscular Hemoglobin 30.3 PG (27.0-31.0) Mean Corpuscular Hemoglobin Concent 30.9 G/DL (32.0-36.0) L Red Cell Distribution Width 14.7 % (11.6-14.8) Platelet Count 259 K/UL (150-450) Mean Platelet Volume 7.4 FL (6.5-10.1) Neutrophils (%) (Auto) 65.6 % (45.0-75.0) Lymphocytes (%) (Auto) 28.1 % (20.0-45.0) Monocytes (%) (Auto) 5.3 % (1.0-10.0) Eosinophils (%) (Auto) 0.1 % (0.0-3.0) Basophils (%) (Auto) 1.0 % (0.0-2.0) Sodium Level 138 mEQ/L (135-145) Potassium Level 3.9 mEQ/L (3.4-4.9) Chloride Level 93 mEQ/L (98-107) L Carbon Dioxide Level 23 mEQ/L (20-30) Anion Gap 22 (5-15) H Blood Urea Nitrogen 14 mg/dL (7-23) Creatinine 1.5 mg/dL (0.5-0.9) H Estimat Glomerular Filtration Rate 45.5 mL/min (>60) Glucose Level 95 mg/dL (74-106) Calcium Level 9.6 mg/dL (8.6-10.2) Magnesium Level 1.5 mg/dL (1.7-2.5) L Total Bilirubin 0.4 mg/dL (0.0-1.2) Aspartate Amino Transf (AST/SGOT) 31 U/L (5-40) Alanine Aminotransferase (ALT/SGPT) 26 U/L (3-33) Alkaline Phosphatase 108 U/L (35-104) H Total Protein 6.9 g/dL (6.6-8.7) Albumin 3.7 g/dL (3.5-5.2) Globulin 3.2 g/dL Albumin/Globulin Ratio 1.1 (1.0-2.7) Acetone Level Positive-small (NEGATIVE) Height (Feet): 5 Height (Inches): 3.00 Weight (Pounds): 130 Medications Current Medications Medications (Trade) Dose Ordered Sig/Lizbeth Route PRN Reason Start Time Stop Time Status Last Admin Dose Admin Acetaminophen (Tylenol) 650 mg Q4H PRN ORAL T>100.5 03/19/17 12:45 04/18/17 12:44 03/19/17 14:14 Al Hydroxide/Mg Hydroxide (Mylanta II) 30 ml Q6H PRN ORAL dyspepsia 03/19/17 12:45 04/18/17 12:44 Albuterol/ Ipratropium (DuoNeb 0.5-3(2.5)mg/3ml) 3 ml Q4H PRN HHN Shortness of Breath 03/19/17 12:45 03/24/17 12:44 Amlodipine Besylate (Norvasc) 10 mg DAILY ORAL 03/20/17 09:00 04/19/17 08:59 Clonidine HCl (Catapres) 0.1 mg Q4H PRN ORAL sbp more than 160 03/19/17 12:45 04/18/17 12:44 Dextrose (Dextrose 50%) STAT PRN IV Hypoglycemia 03/19/17 12:45 04/18/17 12:44 Escitalopram Oxalate (Lexapro) 10 mg DAILY ORAL 03/20/17 09:00 04/19/17 08:59 Heparin Sodium (Porcine) (Heparin 5000 units/ml) 5,000 units EVERY 12 HOURS SUBQ 03/19/17 21:00 04/18/17 20:59 Insulin Aspart (NovoLOG) BEFORE MEALS AND HS SUBQ 03/19/17 16:30 04/18/17 16:29 Insulin Detemir (Levemir) 18 units BEDTIME SUBQ 03/19/17 21:00 04/18/17 20:59 Ketorolac Tromethamine (Toradol 30mg) 30 mg Q6H PRN IV Moderate Pain (Pain Scale 4-6) 03/19/17 12:45 03/24/17 12:44 Mirtazapine (Remeron) 7.5 mg BEDTIME ORAL 03/19/17 21:00 04/18/17 20:59 Morphine Sulfate (Morphine Sulfate) 2 mg Q4H PRN IVP Severe Pain (Pain Scale 7-10) 03/19/17 12:45 03/26/17 12:44 03/19/17 15:07 Nitroglycerin (Ntg) 0.4 mg Q5M X 3 DOSES PRN SL Prn Chest Pain 03/19/17 12:45 04/18/17 12:44 Ondansetron HCl (Zofran) 4 mg Q6H PRN IVP Nausea & Vomiting 03/19/17 12:45 04/18/17 12:44 Polyethylene Glycol (Miralax) 17 gm HSPRN PRN ORAL Constipation 03/19/17 21:00 04/18/17 20:59 Pregabalin (Lyrica) 50 mg BID ORAL 03/19/17 18:00 04/18/17 17:59 Sodium Chloride 1,000 ml @ 100 mls/hr Q10H IVLG 03/19/17 15:00 04/18/17 14:59 03/19/17 15:08 Temazepam (Restoril) 15 mg HSPRN PRN ORAL Insomnia 03/19/17 21:00 03/26/17 20:59 Assessment/Plan Problem List: (1) Uncontrolled diabetes mellitus ICD Codes: E11.65 - Type 2 diabetes mellitus with hyperglycemia SNOMED: 49906272, 279819579 (2) Non-compliance with treatment ICD Codes: Z91.19 - Non-compliance with treatment SNOMED: 7798656 (3) Anemia ICD Codes: D64.9 - Anemia, unspecified SNOMED: 840831257 (4) GERD (gastroesophageal reflux disease) ICD Codes: K21.9 - Gastro-esophageal reflux disease without esophagitis SNOMED: 409859194 (5) Major depression ICD Codes: F32.9 - Major depressive disorder, single episode, unspecified SNOMED: 248996168 Assessment/Plan insulin IV fluids accucheck psych evaluation check Hem a1c VANESSA SAGASTUME Mar 19, 2017 18:21
[2017-03-19] MEDS ORDERED: Insulin Rate Change 1 Each MISC PRN ×3 (20:15→23:30)
[2017-03-19] MEDS ORDERED: Levemir Flexpen SUBQ SCH ×2 (20:30→21:00)
[2017-03-19 20:35] LABS: HEMOGLOBIN A1C 10.7 % (< 6.0)
[2017-03-19 20:56] LABS: CALCIUM 8.6 mg/dL (8.6-10.2); CREATININE 1.8 mg/dL (0.5-0.9); GLOMERULAR FILTRATION RATE 36.8 mL/min (>60); POTASSIUM 4.8 mEQ/L (3.4-4.9)
[2017-03-19] MEDS ORDERED: Miralax 17gm pkt ORAL PRN ×2 (21:00)
[2017-03-19] MEDS ORDERED: Heparin 5000 units/ml inj SUBQ SCH (21:00)
[2017-03-19] MEDS: Heparin 5000 units/ml inj SUBQ SCH (21:15)
[2017-03-19] MEDS: Morphine Sulfate 2mg/ml Inj IVP PRN (21:23)
[2017-03-20] VITALS (24 sets, daily range): BP systolic 90–166; BP diastolic 36–89
--- NOTE | 2017-03-20 01:45 | History and Physical Report ---
DATE OF ADMISSION: 03/19/2017 Chief Complaint: This is a 46-year-old, female with a history of type 1 diabetes, who presents with chief complaint of increased thirst and elevated blood sugar. History Of Present Illness: The patient has been admitted several times to [facility]. The patient was last admitted in 11/2016. Please see history and physical and discharge summary dictated at that time. The patient states she took her blood sugar last evening 03/18/2017. Blood sugar was read as critically high by her machine. The patient then took her blood sugar again this morning. Again, her blood sugar was critically high. The patient gave herself 8 units of NovoLog insulin at home. The patient then presented to [facility] emergency room. Upon arrival at [facility], her blood sugar was 126. The patient was admitted for hyperglycemia to rule out diabetic ketoacidosis. PAST MEDICAL HISTORY: Significant for 1. Type 1 diabetes. 2. Diabetic ketoacidosis, multiple times. 3. Hypertension. 4. Major depression. 5. Diabetic gastroparesis. 6. Gastroesophageal reflux disease. PAST SURGICAL HISTORY: The patient denies. CURRENT MEDICATIONS: 1. Norvasc 10 mg one tablet p.o. daily. 2. Lexapro 20 mg one tablet p.o. daily. 3. Levemir 18 units subcutaneously every morning. 4. Humalog sliding scale. 5. Meloxicam 15 mg one tablet p.o. daily. 6. Protonix 40 mg one tablet p.o. daily. 7. Lyrica 50 mg one tablet p.o. twice daily. 8. Diovan 160 mg one tablet p.o. twice daily. ALLERGIES: No known drug allergies. Social History: The patient is single and lives with her aunt. 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 The patient denies tobacco or alcohol use. Review Of Systems: Constitutional: The patient denies weight loss or weight gain. The patient denies fevers or chills. HEENT: The patient denies ear or throat pain. The patient denies headache. Cardiovascular: The patient denies palpitations or chest pain. Chest: The patient denies wheeze or shortness of breath. Abdominal: The patient denies nausea, vomiting, diarrhea, or constipation. Genitourinary: The patient denies dysuria or increased frequency of urination. Neuromuscular: The patient denies seizures or generalized weakness. PHYSICAL EXAMINATION: Vital Signs: Temperature 97.6, respirations 15, pulse 94, and blood pressure 174/85. General: The patient is a well-developed, well-nourished, thin-appearing, female, in no apparent distress. HEENT: Eyes, pupils are equal and responsive to light and accommodation. Extraocular movements are intact. NECK: Supple without lymphadenopathy. Chest: Lungs are clear to auscultation bilaterally without wheezes or rales. Cardiovascular: Regular rhythm and rate. S1 and S2 are normal without murmurs, rubs, or gallops. Abdomen: Soft, nontender, and nondistended. Positive bowel sounds. No evidence of hepatosplenomegaly. Currently, no rebound or guarding noted. EXTREMITIES: Negative for clubbing, cyanosis, or edema. RECTAL/GENITAL: Refused. Neurological: Cranial nerves II through XII are grossly intact without focal deficits. Motor strength is 5/5 bilaterally. Deep tendon reflexes are 2+ plantar. Laboratory Studies: WBC 6.2, hemoglobin 11.3, hematocrit 36.7, and platelets 259,000. Sodium 138, potassium 3.9, chloride 93, CO2 23, BUN 14, creatinine 1.5, and glucose 95. ASSESSMENT: This is a 46-year-old female. 1. Dehydration. 2. Hyperglycemia. 3. Probable diabetic ketoacidosis. 4. Diabetes type 1. 5. Hypertension. 6. Major depression. 7. Diabetic gastroparesis. 8. Gastroesophageal reflux disease. TREATMENT: 1. Dehydration/hyperglycemia/diabetic ketoacidosis. An Endocrinology consultation has been obtained with Dr. Judd Hayes. We will follow recommendation of Dr. Hayes. The patient has been placed on NovoLog sliding scale. Levemir will be reinstituted. We will follow recommendations of Endocrinology. 2. Hypertension. Continue Diovan as above. 3. Major depression. Continue Lexapro as above. 4. Diabetic gastroparesis. 5. Gastroesophageal reflux disease. Continue Protonix as above. Anastacio Wright M.D. DR: GRACY JOB#: [id number] CC:
[2017-03-20] MEDS: Morphine Sulfate 2mg/ml Inj IVP PRN ×2 (02:16→16:20)
[2017-03-20] MEDS ORDERED: Insulin Rate Change 1 Each MISC PRN (03:15)
[2017-03-20 05:55] LABS: BASOPHILS % (AUTO) 0.4 % (0.0-2.0); LYMPHOCYTES % (AUTO) 22.5 % (20.0-45.0); MEAN CORPUSCULAR HEMOGLOBIN 32.7 PG (27.0-31.0); MEAN CORPUSCULAR HGB CONC 32.9 G/DL (32.0-36.0); MEAN CORPUSCULAR VOLUME 99 FL (80-99); MEAN PLATELET VOLUME 7.6 FL (6.5-10.1); MONOCYTES % (AUTO) 9.8 % (1.0-10.0); NEUTROPHILS % (AUTO) 67.3 % (45.0-75.0); PLATELET COUNT 220 K/UL (150-450); RED BLOOD COUNT 2.99 M/UL (4.20-5.40); RED CELL DISTRIBUTION WIDTH 14.7 % (11.6-14.8); WHITE BLOOD COUNT 10.6 K/UL (4.8-10.8)
[2017-03-20 06:09] LABS: HEMOGLOBIN A1C 10.7 % (< 6.0)
[2017-03-20 06:25] LABS: MAGNESIUM 1.7 mg/dL (1.7-2.5); PHOSPHORUS 2.4 mg/dL (2.5-4.8)
[2017-03-20 06:29] LABS: ALBUMIN/GLOBULIN RATIO 1.4 (1.0-2.7); CALCIUM 8.2 mg/dL (8.6-10.2); CHOLESTEROL/HDL RATIO 2.3 (3.3-4.4); CREATININE 1.8 mg/dL (0.5-0.9); GLOMERULAR FILTRATION RATE 36.8 mL/min (>60); POTASSIUM 3.7 mEQ/L (3.4-4.9); TOTAL PROTEIN 5.6 g/dL (6.6-8.7)
[2017-03-20 06:31] LABS: THYROID STIMULATING HORMONE 0.851 uIU/mL (0.300-4.500)
[2017-03-20] MEDS: D5 1/2NS 1,000 ML IV SCH ×2 (08:34→18:07)
[2017-03-20] MEDS: Lyrica 50mg cap ORAL SCH ×2 (09:08→18:04)
[2017-03-20] MEDS: Heparin 5000 units/ml inj SUBQ SCH ×2 (09:12→21:07)
[2017-03-20] MEDS: Insulin Rate Change 1 Each MISC PRN ×11 (09:20→22:54)
[2017-03-20] MEDS ORDERED: Potassium Phosphate 30 MM in NS 275 ML IV ONE (09:30)
--- NOTE | 2017-03-20 10:22 | Pulmonology Progress Note ---
Assessment/Plan Problems: (1) Uncontrolled diabetes mellitus (2) Non-compliance with treatment (3) Anemia (4) GERD (gastroesophageal reflux disease) (5) Major depression Assessment/Plan bicarb better BS better transfer out of ICU when Ok with Endo Subjective ROS Limited/Unobtainable: No Interval Events: feeling better Constitutional: Reports: no symptoms HEENT: Repors: no symptoms Respiratory: Reports: no symptoms Allergies: Coded Allergies: No Known Allergies (Unverified , 04/24/14) Objective Last 24 Hour Vital Signs Date Time Temp Pulse Resp B/P (MAP) Pulse Ox O2 Delivery O2 Flow Rate FiO2 03/20/17 09:00 104 16 114/37 100 Room Air 03/20/17 09:00 107 114/37 03/20/17 08:06 98.2 106 16 119/36 99 Room Air 03/20/17 07:00 99 16 130/47 100 Room Air 03/20/17 06:00 101 16 135/53 100 Room Air 03/20/17 05:00 96 16 148/69 100 Room Air 03/20/17 04:00 98.1 94 18 148/69 99 Room Air 03/20/17 04:00 96 03/20/17 03:00 94 18 120/58 100 Room Air 03/20/17 02:00 90 18 131/55 100 Room Air 03/20/17 01:00 95 18 119/50 100 Room Air 03/20/17 00:00 98.1 104 18 166/72 99 Room Air 03/20/17 00:00 115 03/19/17 23:00 105 18 120/48 99 Room Air 03/19/17 22:00 110 18 120/48 99 Room Air 03/19/17 21:00 111 18 126/48 99 Room Air 03/19/17 20:00 124 03/19/17 20:00 98.2 113 18 122/40 98 Room Air 03/19/17 16:00 98.1 110 17 118/56 Room Air 03/19/17 15:13 98.1 03/19/17 13:56 86 18 172/82 100 Room Air 03/19/17 13:56 86 18 172/82 100 Room Air 100 03/19/17 12:46 98.2 103 14 116/51 100 Room Air Intake and Output 03/20/17 03/21/17 19:00 07:00 Output Total 0 ml Balance 0 ml Output Urine Total 0 ml General Appearance: WD/WN HEENT: normocephalic, anicteric Respiratory/Chest: chest wall non-tender, normal breath sounds Cardiovascular: normal peripheral pulses, normal rate Abdomen: normal bowel sounds, soft, non tender Genitourinary: normal external genitalia Skin: no ulcers 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 Lymphatic: no neck adenopathy Laboratory Tests 03/19/17 18:05: Sodium Level 135, Potassium Level 4.8, Chloride Level 87L, Carbon Dioxide Level 7*L, Anion Gap 41H, Blood Urea Nitrogen 16, Creatinine 1.8H, Estimat Glomerular Filtration Rate 36.8, Glucose Level 673*H, Hemoglobin A1c 10.7H, Calcium Level 8.6 03/20/17 04:15: Sodium Level 142, Potassium Level 3.7, Chloride Level 101, Carbon Dioxide Level 20, Anion Gap 21H, Blood Urea Nitrogen 17, Creatinine 1.8H, Estimat Glomerular Filtration Rate 36.8, Glucose Level 63#L, Hemoglobin A1c 10.7H, Calcium Level 8.2L, White Blood Count 10.6#, Red Blood Count 2.99L, Hemoglobin 9.8L, Hematocrit 29.7L, Mean Corpuscular Volume 99, Mean Corpuscular Hemoglobin 32.7H , Mean Corpuscular Hemoglobin Concent 32.9, Red Cell Distribution Width 14.7, Platelet Count 220, Mean Platelet Volume 7.6, Neutrophils (%) (Auto) 67.3, Lymphocytes (%) (Auto) 22.5, Monocytes (%) (Auto) 9.8, Eosinophils (%) (Auto) 0.0, Basophils (%) (Auto) 0.4, Phosphorus Level 2.4L, Magnesium Level 1.7, Total Bilirubin 0.4, Aspartate Amino Transf (AST/SGOT) 27, Alanine Aminotransferase (ALT/SGPT) 25, Alkaline Phosphatase 91, Total Protein 5.6L, Albumin 3.3L, Globulin 2.3, Albumin/Globulin Ratio 1.4, Triglycerides Level 109 , Cholesterol Level 151, LDL Cholesterol 63, HDL Cholesterol 66H, Cholesterol/ HDL Ratio 2.3L, Thyroid Stimulating Hormone (TSH) 0.851 Current Medications Medications (Trade) Dose Ordered Sig/Lizbeth Route PRN Reason Start Time Stop Time Status Last Admin Dose Admin Acetaminophen (Tylenol) 650 mg Q4H PRN ORAL T>100.5 03/19/17 20:45 04/18/17 12:44 Al Hydroxide/Mg Hydroxide (Mylanta II) 30 ml Q6H PRN ORAL dyspepsia 03/20/17 21:00 04/18/17 20:59 Albuterol/ Ipratropium (DuoNeb 0.5-3(2.5)mg/3ml) 3 ml Q4H PRN HHN Shortness of Breath 03/19/17 20:45 03/24/17 12:44 Amlodipine Besylate (Norvasc) 10 mg DAILY ORAL 03/20/17 09:00 04/19/17 08:59 Clonidine HCl (Catapres) 0.1 mg Q4H PRN ORAL SBP > 160 03/19/17 20:45 04/18/17 12:44 Dextrose (Dextrose 50%) PRN PRN IV HYPOGLYCEMIA 03/20/17 09:00 04/19/17 08:59 Dextrose/Sodium Chloride 1,000 ml @ 100 mls/hr Q10H IV 03/20/17 08:30 04/19/17 08:29 03/20/17 08:34 Escitalopram Oxalate (Lexapro) 10 mg DAILY ORAL 03/20/17 09:00 04/19/17 08:59 03/20/17 09:04 Heparin Sodium (Porcine) (Heparin 5000 units/ml) 5,000 units EVERY 12 HOURS SUBQ 03/19/17 21:30 04/18/17 21:29 03/20/17 09:12 Insulin Human Regular (NovoLIN R) 5 units PRN PRN IV BS 200-299 03/20/17 09:00 04/19/17 08:59 Insulin Human Regular (NovoLIN R) 10 units PRN PRN IV BS=>300 03/20/17 09:00 04/19/17 08:59 03/20/17 09:20 Insulin Human Regular 100 units/ Sodium Chloride 101 ml @ 0 mls/hr Q24H IV 03/20/17 09:00 04/19/17 08:59 03/20/17 09:04 Ketorolac Tromethamine (Toradol 30mg) 30 mg Q6H PRN IV Moderate Pain (Pain Scale 4-6) 03/19/17 21:00 03/24/17 20:59 Mirtazapine (Remeron) 7.5 mg QHS ORAL 03/19/17 22:00 04/18/17 21:59 Miscellaneous Medication (Insulin Rate Change) 1 ea PRN PRN MISC Hyperglycemia 03/20/17 09:00 04/19/17 08:59 03/20/17 09:20 Morphine Sulfate (Morphine Sulfate) 2 mg Q4H PRN IVP Severe Pain (Pain Scale 7-10) 03/19/17 20:45 03/26/17 12:44 03/20/17 02:16 Nitroglycerin (Ntg) 0.4 mg Q5M X 3 DOSES PRN SL Prn Chest Pain 03/19/17 20:30 04/18/17 12:44 Ondansetron HCl (Zofran) 4 mg Q6H PRN IVP Nausea & Vomiting 03/19/17 21:00 04/18/17 20:59 03/20/17 02:15 Polyethylene Glycol (Miralax) 17 gm HSPRN PRN ORAL Constipation 03/19/17 21:00 04/18/17 20:59 Potassium Phosphate 30 mm/ Sodium Chloride 285 ml @ 47.5 mls/hr ONCE ONCE IV 03/20/17 09:30 03/20/17 15:29 03/20/17 09:39 Pregabalin (Lyrica) 50 mg BID ORAL 03/20/17 09:00 04/18/17 17:59 03/20/17 09:08 Temazepam (Restoril) 15 mg HSPRN PRN ORAL Insomnia 03/19/17 21:00 03/26/17 20:59 VANESSA SAGASTUME Mar 20, 2017 10:22
[2017-03-20] MEDS ORDERED: NS 275ml ONE (11:05)
--- NOTE | 2017-03-20 13:13 | Internal Med Progress Note ---
Subjective Date of Service: Mar 20, 2017 Physician Name Anastacio Jacobsen Attending Physician Aries Hardin MD Current Medications Medications (Trade) Dose Ordered Sig/Lizbeth Route PRN Reason Start Time Stop Time Status Last Admin Dose Admin Acetaminophen (Tylenol) 650 mg Q4H PRN ORAL T>100.5 03/19/17 20:45 04/18/17 12:44 Al Hydroxide/Mg Hydroxide (Mylanta II) 30 ml Q6H PRN ORAL dyspepsia 03/20/17 21:00 04/18/17 20:59 Albuterol/ Ipratropium (DuoNeb 0.5-3(2.5)mg/3ml) 3 ml Q4H PRN HHN Shortness of Breath 03/19/17 20:45 03/24/17 12:44 Amlodipine Besylate (Norvasc) 10 mg DAILY ORAL 03/20/17 09:00 04/19/17 08:59 Clonidine HCl (Catapres) 0.1 mg Q4H PRN ORAL SBP > 160 03/19/17 20:45 04/18/17 12:44 Dextrose (Dextrose 50%) PRN PRN IV HYPOGLYCEMIA 03/20/17 09:00 04/19/17 08:59 Dextrose/Sodium Chloride 1,000 ml @ 100 mls/hr Q10H IV 03/20/17 08:30 04/19/17 08:29 03/20/17 08:34 Escitalopram Oxalate (Lexapro) 20 mg DAILY ORAL 03/21/17 09:00 04/20/17 08:59 Heparin Sodium (Porcine) (Heparin 5000 units/ml) 5,000 units EVERY 12 HOURS SUBQ 03/19/17 21:30 04/18/17 21:29 03/20/17 09:12 Insulin Human Regular (NovoLIN R) 5 units PRN PRN IV BS 200-299 03/20/17 09:00 04/19/17 08:59 03/20/17 10:29 Insulin Human Regular (NovoLIN R) 10 units PRN PRN IV BS=>300 03/20/17 09:00 04/19/17 08:59 03/20/17 09:20 Insulin Human Regular 100 units/ Sodium Chloride 101 ml @ 0 mls/hr Q24H IV 03/20/17 09:00 04/19/17 08:59 03/20/17 09:04 Ketorolac Tromethamine (Toradol 30mg) 30 mg Q6H PRN IV Moderate Pain (Pain Scale 4-6) 03/19/17 21:00 03/24/17 20:59 Mirtazapine (Remeron) 15 mg QHS ORAL 03/20/17 21:00 04/19/17 20:59 Miscellaneous Medication (Insulin Rate Change) 1 ea PRN PRN MISC Hyperglycemia 03/20/17 09:00 04/19/17 08:59 03/20/17 12:27 Morphine Sulfate (Morphine Sulfate) 2 mg Q4H PRN IVP Severe Pain (Pain Scale 7-10) 03/19/17 20:45 03/26/17 12:44 03/20/17 02:16 Nitroglycerin (Ntg) 0.4 mg Q5M X 3 DOSES PRN SL Prn Chest Pain 03/19/17 20:30 04/18/17 12:44 Ondansetron HCl (Zofran) 4 mg Q6H PRN IVP Nausea & Vomiting 03/19/17 21:00 04/18/17 20:59 03/20/17 02:15 Polyethylene Glycol (Miralax) 17 gm HSPRN PRN ORAL Constipation 03/19/17 21:00 04/18/17 20:59 Potassium Phosphate 30 mm/ Sodium Chloride 285 ml @ 47.5 mls/hr ONCE ONCE IV 03/20/17 09:30 03/20/17 15:29 03/20/17 09:39 Pregabalin (Lyrica) 50 mg BID ORAL 03/20/17 09:00 04/18/17 17:59 03/20/17 09:08 Temazepam (Restoril) 15 mg HSPRN PRN ORAL Insomnia 03/19/17 21:00 03/26/17 20:59 Allergies: Coded Allergies: No Known Allergies (Unverified , 04/24/14) ROS Limited/Unobtainable: No Constitutional: Reports: no symptoms HEENT: Reports: no symptoms Cardiovascular: Reports: no symptoms Respiratory: Reports: no symptoms Gastrointestinal/Abdominal: Reports: no symptoms Genitourinary: Reports: no symptoms Neurologic/Psychiatric: Reports: no symptoms Subjective 46 YO F admitted with diabetic ketoacidosis. ICU. Cover for Int Med-Dr Hardin. Currently on insulin drip Objective Last Vital Signs Date Time Temp Pulse Resp B/P (MAP) Pulse Ox O2 Delivery O2 Flow Rate FiO2 03/20/17 12:00 98.1 95 16 155/72 100 Room Air 03/19/17 13:56 100 General Appearance: WD/WN, no apparent distress, alert EENT: PERRL/EOMI, normal ENT inspection, TMs normal Neck: non-tender, normal alignment, supple, normal inspection Cardiovascular: normal peripheral pulses, normal rate, regular rhythm, no gallop/murmur, no JVD Respiratory/Chest: chest wall non-tender, lungs clear, normal breath sounds, no respiratory distress, no accessory muscle use Abdomen: normal bowel sounds, non tender, soft, no organomegaly, no mass Extremities: normal range of motion, non-tender 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, no motor/sensory deficits Laboratory Tests Test 03/19/17 18:05 03/20/17 04:15 Sodium Level 135 mEQ/L (135-145) 142 mEQ/L (135-145) Potassium Level 4.8 mEQ/L (3.4-4.9) 3.7 mEQ/L (3.4-4.9) Chloride Level 87 mEQ/L (98-107) L 101 mEQ/L (98-107) Carbon Dioxide Level 7 mEQ/L (20-30) *L 20 mEQ/L (20-30) Anion Gap 41 (5-15) H 21 (5-15) H Blood Urea Nitrogen 16 mg/dL (7-23) 17 mg/dL (7-23) Creatinine 1.8 mg/dL (0.5-0.9) H 1.8 mg/dL (0.5-0.9) H Estimat Glomerular Filtration Rate 36.8 mL/min (>60) 36.8 mL/min (>60) Glucose Level 673 mg/dL (74-106) *H 63 mg/dL (74-106) #L Hemoglobin A1c 10.7 % (< 6.0) H 10.7 % (< 6.0) H Calcium Level 8.6 mg/dL (8.6-10.2) 8.2 mg/dL (8.6-10.2) L White Blood Count 10.6 K/UL (4.8-10.8) # Red Blood Count 2.99 M/UL (4.20-5.40) L Hemoglobin 9.8 G/DL (12.0-16.0) L Hematocrit 29.7 % (37.0-47.0) L Mean Corpuscular Volume 99 FL (80-99) Mean Corpuscular Hemoglobin 32.7 PG (27.0-31.0) H Mean Corpuscular Hemoglobin Concent 32.9 G/DL (32.0-36.0) Red Cell Distribution Width 14.7 % (11.6-14.8) Platelet Count 220 K/UL (150-450) Mean Platelet Volume 7.6 FL (6.5-10.1) Neutrophils (%) (Auto) 67.3 % (45.0-75.0) Lymphocytes (%) (Auto) 22.5 % (20.0-45.0) Monocytes (%) (Auto) 9.8 % (1.0-10.0) Eosinophils (%) (Auto) 0.0 % (0.0-3.0) Basophils (%) (Auto) 0.4 % (0.0-2.0) Phosphorus Level 2.4 mg/dL (2.5-4.8) L Magnesium Level 1.7 mg/dL (1.7-2.5) Total Bilirubin 0.4 mg/dL (0.0-1.2) Aspartate Amino Transf (AST/SGOT) 27 U/L (5-40) Alanine Aminotransferase (ALT/SGPT) 25 U/L (3-33) Alkaline Phosphatase 91 U/L (35-104) Total Protein 5.6 g/dL (6.6-8.7) L Albumin 3.3 g/dL (3.5-5.2) L Globulin 2.3 g/dL Albumin/Globulin Ratio 1.4 (1.0-2.7) Triglycerides Level 109 mg/dL (< 150) Cholesterol Level 151 mg/dL (< 200) LDL Cholesterol 63 mg/dL (60-99) HDL Cholesterol 66 mg/dL (> 60) H Cholesterol/HDL Ratio 2.3 (3.3-4.4) L Thyroid Stimulating Hormone (TSH) 0.851 uIU/mL (0.300-4.500) Intake and Output 03/20/17 03/21/17 19:00 07:00 Intake Total 628.56 ml Output Total 0 ml Balance 628.56 ml Intake Oral 80 ml IV Total 548.56 ml Output Urine Total 0 ml Assessment/Plan Problem List: (1) Diabetes mellitus type 1, uncontrolled, insulin dependent Assessment & Plan: See endocrinology note. (2) Diabetic ketoacidosis, type I Assessment & Plan: See endocrinology note. Continue insulin drip. ICU status (3) HTN (hypertension) Assessment & Plan: Continue norvasc. (4) Diabetic gastroparesis (5) GERD (gastroesophageal reflux disease) (6) Major depression Assessment & Plan: Cont lexapro Status: not improved ANASTACIO JACOBSEN Mar 20, 2017 13:13
[2017-03-20] MEDS: Pantoprazole Inj IVP SCH (13:57)
[2017-03-20 15:37] LABS: CALCIUM 7.7 mg/dL (8.6-10.2); CREATININE 1.5 mg/dL (0.5-0.9); GLOMERULAR FILTRATION RATE 45.5 mL/min (>60); MAGNESIUM 1.6 mg/dL (1.7-2.5); PHOSPHORUS 4.3 mg/dL (2.5-4.8); POTASSIUM 4.6 mEQ/L (3.4-4.9)
--- NOTE | 2017-03-20 19:54 | Consultation ---
History of Present Illness General Chief Complaint: Abnormal Labs Referring physician: Dr Hardin Reason for Consultation: inpatient management Present Illness HPI 46-year-old, female with a history of type 1 diabetes, who presents with chief complaint of increased thirst and elevated blood sugar. the pt has been depressed anxious and insomnia Allergies: Coded Allergies: No Known Allergies (Unverified , 04/24/14) Medication History Scheduled Amlodipine Besylate (Norvasc), 10 MG ORAL DAILY Escitalopram Oxalate* (Lexapro*), 20 MG ORAL DAILY, (Reported) Insulin Aspart (Novolog Flexpen), 0 UNITS SUBQ BEFORE MEALS AND HS Insulin Aspart (Novolog Flexpen), 8 UNITS SUBQ NOVOTIAC Insulin Detemir (Levemir Flexpen), 18 SUBQ DAILY, (Reported) Insulin Detemir (Levemir Flexpen), 24 UNITS SUBQ DAILY Meloxicam* (Meloxicam*), 15 MG PO DAILY, (Reported) Mirtazapine* (Mirtazapine*), 7.5 MG ORAL BEDTIME Pantoprazole* (Protonix*), 40 MG ORAL DAILY, (Reported) Pregabalin (Lyrica), 50 MG PO BID, (Reported) Valsartan (Diovan), 160 MG ORAL BID Scheduled PRN Clonidine HCl (Clonidine HCl), 0.1 MG ORAL Q4H PRN Ibuprofen* (Motrin*), 600 MG ORAL Q6H PRN for For Pain, (Reported) Ondansetron Odt* (Zofran Odt*), 4 MG ORAL Q6H PRN for Nausea & Vomiting Miscellaneous Medications Insulin Lispro (Humalog), 0 SUBQ, (Reported) Potassium Chloride (Potassium Chloride), 10 MEQ PO, (Reported) Patient History History Provided By: Patient, Medical Record, PMD Healthcare decision maker Sarah Ryan Resuscitation status Full Code Advanced Directive on File Past Medical/Surgical History Past Medical/Surgical History: (1) Acidosis, metabolic (2) Hyperosmolar coma (3) Hypertensive emergency (4) Hypertension (5) Nausea & vomiting (6) Diabetes type 1, uncontrolled (7) Esophagitis (8) Dysphagia (9) Depression (10) DKA (diabetic ketoacidoses) (11) Diarrhea (12) Diarrhea (13) SOB (shortness of breath) (14) Gastritis (15) Renal failure (16) Encephalopathy (17) Hypophosphatemia (18) Hypophosphatemia (19) Esophageal ulcer (20) Epigastric pain (21) Hypoalbuminemia (22) Chest pain (23) Chest pain (24) Britney esophagitis (25) Esophageal ulcer without bleeding (26) esophageal u (27) Dehydration (28) Diabetes (29) Non-compliance with treatment (30) Anemia (31) Major depression (32) GERD (gastroesophageal reflux disease) (33) Uncontrolled diabetes mellitus (34) Diabetic ketoacidosis, type I (35) Diabetic gastroparesis (36) HTN (hypertension) (37) Diabetes mellitus type 1, uncontrolled, insulin dependent (38) Diabetic ketoacidosis, type I (39) Vomiting (40) ARF (acute renal failure) (41) Urinary retention (42) Oral candidiasis Review of Systems Psychiatric: Reports: prior hx, anxiety, depressed feelings, emotional problems Physical Exam General Appearance: no apparent distress, alert, thin Neurologic: alert, oriented x 3, responsive, depressed affect Last 24 Hour Vital Signs Date Time Temp Pulse Resp B/P (MAP) Pulse Ox O2 Delivery O2 Flow Rate FiO2 03/20/17 19:46 91 18 Room Air 21 03/20/17 19:00 94 17 99/46 98 Room Air 03/20/17 18:00 98.2 92 17 136/89 97 Room Air 03/20/17 17:00 98 17 124/48 98 Room Air 03/20/17 16:00 105 16 116/40 100 Room Air 03/20/17 15:00 94 17 103/53 100 Room Air 03/20/17 14:00 91 17 132/67 100 Room Air 03/20/17 13:00 95 16 164/82 100 Room Air 03/20/17 12:00 98.1 95 16 155/72 100 Room Air 03/20/17 11:00 96 16 134/66 100 Room Air 03/20/17 10:00 100 16 136/56 100 Room Air 03/20/17 09:00 104 16 114/37 100 Room Air 03/20/17 09:00 107 114/37 03/20/17 08:06 98.2 106 16 119/36 99 Room Air 03/20/17 07:00 99 16 130/47 100 Room Air 03/20/17 06:57 97 16 Room Air 03/20/17 06:00 101 16 135/53 100 Room Air 03/20/17 05:00 96 16 148/69 100 Room Air 03/20/17 04:00 98.1 94 18 148/69 99 Room Air 03/20/17 04:00 96 03/20/17 03:00 94 18 120/58 100 Room Air 03/20/17 02:00 90 18 131/55 100 Room Air 03/20/17 01:00 95 18 119/50 100 Room Air 03/20/17 00:00 98.1 104 18 166/72 99 Room Air 03/20/17 00:00 115 03/19/17 23:00 105 18 120/48 99 Room Air 03/19/17 22:00 110 18 120/48 99 Room Air 03/19/17 21:00 111 18 126/48 99 Room Air 03/19/17 20:00 124 03/19/17 20:00 98.2 113 18 122/40 98 Room Air Intake and Output 03/20/17 03/21/17 19:00 07:00 Intake Total 1799.11 ml Output Total 450 ml Balance 1349.11 ml Intake Oral 400 ml IV Total 1399.11 ml Output Urine Total 450 ml # Voids 1 Laboratory Tests Test 03/20/17 04:15 03/20/17 15:00 White Blood Count 10.6 K/UL (4.8-10.8) # Red Blood Count 2.99 M/UL (4.20-5.40) L Hemoglobin 9.8 G/DL (12.0-16.0) L Hematocrit 29.7 % (37.0-47.0) L Mean Corpuscular Volume 99 FL (80-99) Mean Corpuscular Hemoglobin 32.7 PG (27.0-31.0) H Mean Corpuscular Hemoglobin Concent 32.9 G/DL (32.0-36.0) Red Cell Distribution Width 14.7 % (11.6-14.8) Platelet Count 220 K/UL (150-450) Mean Platelet Volume 7.6 FL (6.5-10.1) Neutrophils (%) (Auto) 67.3 % (45.0-75.0) Lymphocytes (%) (Auto) 22.5 % (20.0-45.0) Monocytes (%) (Auto) 9.8 % (1.0-10.0) Eosinophils (%) (Auto) 0.0 % (0.0-3.0) Basophils (%) (Auto) 0.4 % (0.0-2.0) Sodium Level 142 mEQ/L (135-145) 139 mEQ/L (135-145) Potassium Level 3.7 mEQ/L (3.4-4.9) 4.6 mEQ/L (3.4-4.9) Chloride Level 101 mEQ/L (98-107) 100 mEQ/L (98-107) Carbon Dioxide Level 20 mEQ/L (20-30) 21 mEQ/L (20-30) Anion Gap 21 (5-15) H 18 (5-15) H Blood Urea Nitrogen 17 mg/dL (7-23) 14 mg/dL (7-23) Creatinine 1.8 mg/dL (0.5-0.9) H 1.5 mg/dL (0.5-0.9) H Estimat Glomerular Filtration Rate 36.8 mL/min (>60) 45.5 mL/min (>60) Glucose Level 63 mg/dL (74-106) #L 156 mg/dL (74-106) H Hemoglobin A1c 10.7 % (< 6.0) H Calcium Level 8.2 mg/dL (8.6-10.2) L 7.7 mg/dL (8.6-10.2) L Phosphorus Level 2.4 mg/dL (2.5-4.8) L 4.3 mg/dL (2.5-4.8) Magnesium Level 1.7 mg/dL (1.7-2.5) 1.6 mg/dL (1.7-2.5) L Total Bilirubin 0.4 mg/dL (0.0-1.2) Aspartate Amino Transf (AST/SGOT) 27 U/L (5-40) Alanine Aminotransferase (ALT/SGPT) 25 U/L (3-33) Alkaline Phosphatase 91 U/L (35-104) Total Protein 5.6 g/dL (6.6-8.7) L Albumin 3.3 g/dL (3.5-5.2) L Globulin 2.3 g/dL Albumin/Globulin Ratio 1.4 (1.0-2.7) Triglycerides Level 109 mg/dL (< 150) Cholesterol Level 151 mg/dL (< 200) LDL Cholesterol 63 mg/dL (60-99) HDL Cholesterol 66 mg/dL (> 60) H Cholesterol/HDL Ratio 2.3 (3.3-4.4) L Thyroid Stimulating Hormone (TSH) 0.851 uIU/mL (0.300-4.500) Height (Feet): 5 Height (Inches): 3.00 Weight (Pounds): 130 Medications Current Medications Medications (Trade) Dose Ordered Sig/Lizbeth Route PRN Reason Start Time Stop Time Status Last Admin Dose Admin Acetaminophen (Tylenol) 650 mg Q4H PRN ORAL T>100.5 03/19/17 20:45 04/18/17 12:44 Al Hydroxide/Mg Hydroxide (Mylanta II) 30 ml Q6H PRN ORAL dyspepsia 03/20/17 21:00 04/18/17 20:59 03/20/17 19:39 Albuterol/ Ipratropium (DuoNeb 0.5-3(2.5)mg/3ml) 3 ml Q4H PRN HHN Shortness of Breath 03/19/17 20:45 03/24/17 12:44 Amlodipine Besylate (Norvasc) 10 mg DAILY ORAL 03/20/17 09:00 04/19/17 08:59 Clonidine HCl (Catapres) 0.1 mg Q4H PRN ORAL SBP > 160 03/19/17 20:45 04/18/17 12:44 Dextrose (Dextrose 50%) PRN PRN IV HYPOGLYCEMIA 03/20/17 09:00 04/19/17 08:59 Dextrose/Sodium Chloride 1,000 ml @ 100 mls/hr Q10H IV 03/20/17 08:30 04/19/17 08:29 03/20/17 18:07 Escitalopram Oxalate (Lexapro) 20 mg DAILY ORAL 03/21/17 09:00 04/20/17 08:59 Heparin Sodium (Porcine) (Heparin 5000 units/ml) 5,000 units EVERY 12 HOURS SUBQ 03/19/17 21:30 04/18/17 21:29 03/20/17 09:12 Insulin Human Regular (NovoLIN R) 5 units PRN PRN IV BS 200-299 03/20/17 09:00 04/19/17 08:59 03/20/17 17:24 Insulin Human Regular (NovoLIN R) 10 units PRN PRN IV BS=>300 03/20/17 09:00 04/19/17 08:59 03/20/17 09:20 Insulin Human Regular 100 units/ Sodium Chloride 101 ml @ 0 mls/hr Q24H IV 03/20/17 09:00 04/19/17 08:59 03/20/17 09:04 Ketorolac Tromethamine (Toradol 30mg) 30 mg Q6H PRN IV Moderate Pain (Pain Scale 4-6) 03/19/17 21:00 03/24/17 20:59 Mirtazapine (Remeron) 15 mg QHS ORAL 03/20/17 21:00 04/19/17 20:59 Miscellaneous Medication (Insulin Rate Change) 1 ea PRN PRN MISC Hyperglycemia 03/20/17 09:00 04/19/17 08:59 03/20/17 17:25 Morphine Sulfate (Morphine Sulfate) 2 mg Q4H PRN IVP Severe Pain (Pain Scale 7-10) 03/19/17 20:45 03/26/17 12:44 03/20/17 16:20 Nitroglycerin (Ntg) 0.4 mg Q5M X 3 DOSES PRN SL Prn Chest Pain 03/19/17 20:30 04/18/17 12:44 Ondansetron HCl (Zofran) 4 mg Q6H PRN IVP Nausea & Vomiting 03/19/17 21:00 04/18/17 20:59 03/20/17 02:15 Pantoprazole (Protonix) 40 mg DAILY IVP 03/20/17 13:30 04/19/17 13:29 03/20/17 13:57 Polyethylene Glycol (Miralax) 17 gm HSPRN PRN ORAL Constipation 03/19/17 21:00 04/18/17 20:59 Pregabalin (Lyrica) 50 mg BID ORAL 03/20/17 09:00 04/18/17 17:59 03/20/17 18:04 Temazepam (Restoril) 15 mg HSPRN PRN ORAL Insomnia 03/19/17 21:00 03/26/17 20:59 Assessment/Plan Status: stable, progressing Assessment/Plan mdd -lexapro 20mg qhs -remeron 15mg qhs Elisha Hardy M.D. Mar 20, 2017 19:54
[2017-03-20] MEDS ORDERED: Mylanta II UD 30ml ORAL PRN (21:00)
[2017-03-21] VITALS (24 sets, daily range): BP systolic 93–156; BP diastolic 40–94
[2017-03-21] MEDS: Insulin Rate Change 1 Each MISC PRN ×9 (00:17→14:18)
[2017-03-21] MEDS: D5 1/2NS 1,000 ML IV SCH (04:13)
[2017-03-21 06:23] LABS: BASOPHILS % (AUTO) 1.1 % (0.0-2.0); EOSINOPHILS % (AUTO) 0.6 % (0.0-3.0); LYMPHOCYTES % (AUTO) 46.8 % (20.0-45.0); MEAN CORPUSCULAR HEMOGLOBIN 31.9 PG (27.0-31.0); MEAN CORPUSCULAR HGB CONC 32.6 G/DL (32.0-36.0); MEAN CORPUSCULAR VOLUME 98 FL (80-99); MEAN PLATELET VOLUME 6.7 FL (6.5-10.1); MONOCYTES % (AUTO) 5.6 % (1.0-10.0); NEUTROPHILS % (AUTO) 46.1 % (45.0-75.0); PLATELET COUNT 181 K/UL (150-450); RED BLOOD COUNT 2.88 M/UL (4.20-5.40); RED CELL DISTRIBUTION WIDTH 14.9 % (11.6-14.8); WHITE BLOOD COUNT 6.6 K/UL (4.8-10.8)
[2017-03-21 06:42] LABS: ALBUMIN/GLOBULIN RATIO 1.1 (1.0-2.7); CALCIUM 7.7 mg/dL (8.6-10.2); CREATININE 1.4 mg/dL (0.5-0.9); GLOMERULAR FILTRATION RATE 49.3 mL/min (>60); MAGNESIUM 1.4 mg/dL (1.7-2.5); PHOSPHORUS 2.5 mg/dL (2.5-4.8); POTASSIUM 3.7 mEQ/L (3.4-4.9); TOTAL PROTEIN 5.5 g/dL (6.6-8.7)
--- NOTE | 2017-03-21 08:15 | Consultation ---
DATE OF CONSULTATION: 03/20/2017 ENDOCRINOLOGY CONSULTATION CONSULTING PHYSICIAN: Judd Hayes M.D. REFERRING PHYSICIAN: Anastacio Wright M.D. REASON FOR CONSULTATION: Diabetic ketoacidosis. History Of Present Illness: The patient is a 46-year-old female with history of type 1 diabetes for many years on multiple daily injections with Levemir and NovoLog as an outpatient who also I attempted to put her on an insulin pump, which she failed to properly use, who presented to the hospital with increased test in the level of the blood sugar, was found to be in diabetic ketoacidosis. The patient was now admitted to [facility] and was contacted by Dr. Wright. I reviewed the lab and I decided to send the patient to the ICU to be treated with insulin drip and IV fluids. Insulin drip was discontinued since last time blood sugars in the 80s, but the gap is still open at 21. The patient is feeling better. PAST MEDICAL HISTORY: 1. Type 1 diabetes. 2. Diabetic ketoacidosis, multiple times. 3. Hypertension. 4. Depression. 5. Diabetic gastroparesis. 6. GERD. PAST SURGICAL HISTORY: None. MEDICATIONS: 1. Levemir 18 units subcutaneously every morning. 2. Humalog according to sliding scale. 3. Lexapro. 4. Norvasc. 5. Meloxicam. 6. Protonix. 7. Lyrica. 8. Diovan. ALLERGY TO MEDICATIONS: None. Social History: The patient is single and lives with her aunt. 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 The patient denies smoking or alcohol use. REVIEW OF SYSTEMS: As outlined in the history of present illness. PHYSICAL EXAMINATION: GENERAL: The patient is awake and alert. Vital Signs: Blood pressure is 170/80, pulse of 80, temperature 98.3, and respiratory rate of 18. HEENT: Pupils are equal and reactive to light and accommodation. Sclerae are anicteric. NECK: No JVD. No thyromegaly. No bruit. LUNGS: Clear. HEART: Regular rate and rhythm. ABDOMEN: Positive bowel sounds. Soft. EXTREMITIES: No clubbing, cyanosis, or edema. Laboratory Data: WBC 10, hemoglobin 9, hematocrit 29, and platelets of 220,000. Sodium is 142, potassium 3.7, bicarbonate 20, BUN 17, and creatinine 1.8. Anion gap 21, this is down from 41 last night. Bicarbonate last night was 7. Glucose 62. Hemoglobin A1c 10.7. TSH 0.8. DIAGNOSES: 1. Diabetic ketoacidosis. 2. Type 1 diabetes out of control. 3. Hypertension. Plan: Continue insulin drip until the gap is closed. follow electrolytes. I will convert to insulin sub Q regimen when suitable. Thank you Dr. Wright for the courtesy of this consultation. Judd Hayes M.D. DR: RIGO/NARENDRA JOB#: [id number] CC: KRISTY
[2017-03-21] MEDS: Pantoprazole Inj IVP SCH (09:29)
[2017-03-21] MEDS: Lyrica 50mg cap ORAL SCH ×2 (09:29→17:48)
[2017-03-21] MEDS: Heparin 5000 units/ml inj SUBQ SCH ×2 (09:30→20:44)
--- NOTE | 2017-03-21 10:06 | Pulmonology Progress Note ---
Assessment/Plan Problems: (1) Uncontrolled diabetes mellitus (2) Non-compliance with treatment (3) Anemia (4) GERD (gastroesophageal reflux disease) (5) Major depression Assessment/Plan bicarb better BS better transfer out of ICU when Ok with Endo anion gap resolved tachycardia resolved Subjective ROS Limited/Unobtainable: No Constitutional: Reports: no symptoms HEENT: Repors: no symptoms Respiratory: Reports: no symptoms Allergies: Coded Allergies: No Known Allergies (Unverified , 04/24/14) Objective Last 24 Hour Vital Signs Date Time Temp Pulse Resp B/P (MAP) Pulse Ox O2 Delivery O2 Flow Rate FiO2 03/21/17 09:33 96 157/78 03/21/17 09:00 95 20 156/52 98 Room Air 03/21/17 08:00 98.1 98 20 128/65 98 Room Air 03/21/17 07:00 85 16 113/49 97 Room Air 03/21/17 06:00 89 16 96/47 97 Room Air 03/21/17 05:00 90 16 109/54 97 Room Air 03/21/17 04:00 97.9 78 17 122/61 95 Room Air 03/21/17 04:00 82 03/21/17 03:00 81 15 125/61 96 Room Air 03/21/17 02:00 84 16 102/47 92 Room Air 03/21/17 01:00 101 16 108/56 99 Room Air 03/21/17 00:00 98.1 76 17 105/58 97 Room Air 03/21/17 00:00 94 03/20/17 23:00 79 16 113/59 97 Room Air 03/20/17 22:00 83 17 112/54 98 Room Air 03/20/17 21:00 89 16 94/45 97 Room Air 03/20/17 20:00 98.3 84 17 90/44 97 Room Air 03/20/17 20:00 76 03/20/17 19:46 91 18 Room Air 21 03/20/17 19:00 94 17 99/46 98 Room Air 03/20/17 18:00 98.2 92 17 136/89 97 Room Air 03/20/17 17:00 98 17 124/48 98 Room Air 03/20/17 16:00 105 16 116/40 100 Room Air 03/20/17 15:00 94 17 103/53 100 Room Air 03/20/17 14:00 91 17 132/67 100 Room Air 03/20/17 13:00 95 16 164/82 100 Room Air 03/20/17 12:00 98.1 95 16 155/72 100 Room Air 03/20/17 11:00 96 16 134/66 100 Room Air Intake and Output 03/21/17 03/22/17 19:00 07:00 Intake Total 154 ml Output Total 0 ml Balance 154 ml Intake Oral 50 ml IV Total 104 ml Output Urine Total 0 ml General Appearance: WD/WN HEENT: normocephalic, atraumatic Respiratory/Chest: chest wall non-tender, lungs clear Breasts: no masses Cardiovascular: normal peripheral pulses, normal rate Abdomen: normal bowel sounds, soft, non tender Genitourinary: normal external genitalia Extremities: no cyanosis Skin: no rash Laboratory Tests 03/20/17 15:00: Sodium Level 139, Potassium Level 4.6, Chloride Level 100, Carbon Dioxide Level 21, Anion Gap 18H, Blood Urea Nitrogen 14, Creatinine 1.5H, Estimat Glomerular Filtration Rate 45.5, Glucose Level 156H, Calcium Level 7.7L, Phosphorus Level 4.3, Magnesium Level 1.6L 03/21/17 05:05: Sodium Level 140, Potassium Level 3.7, Chloride Level 104, Carbon Dioxide Level 23, Anion Gap 13, Blood Urea Nitrogen 11, Creatinine 1.4H, Estimat Glomerular Filtration Rate 49.3, Glucose Level 91, Calcium Level 7.7L, Phosphorus Level 2.5 , Magnesium Level 1.4L, White Blood Count 6.6, Red Blood Count 2.88L, Hemoglobin 9.2L, Hematocrit 28.1L, Mean Corpuscular Volume 98, Mean Corpuscular Hemoglobin 31.9H, Mean Corpuscular Hemoglobin Concent 32.6, Red Cell Distribution Width 14.9H, Platelet Count 181, Mean Platelet Volume 6.7, Neutrophils (%) (Auto) 46.1, Lymphocytes (%) (Auto) 46.8H, Monocytes (%) (Auto) 5.6, Eosinophils (%) (Auto) 0.6, Basophils (%) (Auto) 1.1, Total Bilirubin 0.3, Aspartate Amino Transf (AST/SGOT) 33, Alanine Aminotransferase (ALT/SGPT) 23, Alkaline Phosphatase 85, Total Protein 5.5L, Albumin 2.9L, Globulin 2.6, Albumin /Globulin Ratio 1.1 Current Medications Medications (Trade) Dose Ordered Sig/Lizbeth Route PRN Reason Start Time Stop Time Status Last Admin Dose Admin Acetaminophen (Tylenol) 650 mg Q4H PRN ORAL T>100.5 03/19/17 20:45 04/18/17 12:44 Al Hydroxide/Mg Hydroxide (Mylanta II) 30 ml Q6H PRN ORAL dyspepsia 03/20/17 21:00 04/18/17 20:59 03/20/17 19:39 Albuterol/ Ipratropium (DuoNeb 0.5-3(2.5)mg/3ml) 3 ml Q4H PRN HHN Shortness of Breath 03/19/17 20:45 03/24/17 12:44 Amlodipine Besylate (Norvasc) 10 mg DAILY ORAL 03/20/17 09:00 04/19/17 08:59 03/21/17 09:33 Clonidine HCl (Catapres) 0.1 mg Q4H PRN ORAL SBP > 160 03/19/17 20:45 04/18/17 12:44 Dextrose (Dextrose 50%) PRN PRN IV HYPOGLYCEMIA 03/20/17 09:00 04/19/17 08:59 Dextrose/Sodium Chloride 1,000 ml @ 100 mls/hr Q10H IV 03/20/17 08:30 04/19/17 08:29 03/21/17 04:13 Escitalopram Oxalate (Lexapro) 20 mg DAILY ORAL 03/21/17 09:00 04/20/17 08:59 03/21/17 09:31 Heparin Sodium (Porcine) (Heparin 5000 units/ml) 5,000 units EVERY 12 HOURS SUBQ 03/19/17 21:30 04/18/17 21:29 03/21/17 09:30 Insulin Human Regular (NovoLIN R) 5 units PRN PRN IV BS 200-299 03/20/17 09:00 04/19/17 08:59 03/21/17 06:58 Insulin Human Regular (NovoLIN R) 10 units PRN PRN IV BS=>300 03/20/17 09:00 04/19/17 08:59 03/20/17 09:20 Insulin Human Regular 100 units/ Sodium Chloride 101 ml @ 0 mls/hr Q24H IV 03/20/17 09:00 04/19/17 08:59 03/20/17 09:04 Ketorolac Tromethamine (Toradol 30mg) 30 mg Q6H PRN IV Moderate Pain (Pain Scale 4-6) 03/19/17 21:00 03/24/17 20:59 Mirtazapine (Remeron) 15 mg QHS ORAL 03/20/17 21:00 04/19/17 20:59 03/20/17 21:07 Miscellaneous Medication (Insulin Rate Change) 1 ea PRN PRN MISC Hyperglycemia 03/20/17 09:00 04/19/17 08:59 03/21/17 09:19 Morphine Sulfate (Morphine Sulfate) 2 mg Q4H PRN IVP Severe Pain (Pain Scale 7-10) 03/19/17 20:45 03/26/17 12:44 03/20/17 16:20 Nitroglycerin (Ntg) 0.4 mg Q5M X 3 DOSES PRN SL Prn Chest Pain 03/19/17 20:30 04/18/17 12:44 Ondansetron HCl (Zofran) 4 mg Q6H PRN IVP Nausea & Vomiting 03/19/17 21:00 04/18/17 20:59 03/20/17 02:15 Pantoprazole (Protonix) 40 mg DAILY IVP 03/20/17 13:30 04/19/17 13:29 03/21/17 09:29 Polyethylene Glycol (Miralax) 17 gm HSPRN PRN ORAL Constipation 03/19/17 21:00 04/18/17 20:59 Pregabalin (Lyrica) 50 mg BID ORAL 03/20/17 09:00 04/18/17 17:59 03/21/17 09:29 Temazepam (Restoril) 15 mg HSPRN PRN ORAL Insomnia 03/19/17 21:00 03/26/17 20:59 VANESSA SAGASTUME Mar 21, 2017 10:06
[2017-03-21] MEDS: Morphine Sulfate 2mg/ml Inj IVP PRN (10:30)
--- NOTE | 2017-03-21 12:53 | Consultation ---
Consult Note Consult Note asked to eval for renal failure- 46 y/o female presented high blood sugar, >500 as per EMS. Patient with multiple previous admissions for DKA with ICU admission. low Co2 Creat-1.8 afebrile, no leukocytosis, CXR no acute cardiopulmonary pathology UA + Proteins, no evidence of UTI In questioning the patient she was told in the past that had lost some kidney function due to DM , know for 17 years patient interviewed, examined, data review- . Assessment/Plan status: Acute renal failure- 1. Diabetic type 1 2. h/o Diabetic ketoacidosis (CC) 3. History of gastroesophageal reflux disease. 4. Depression. 5. Hypertension. 6. back pain Plan: hydrate Keep BP in check- Monitor renal parameters and Chemistries- Urine studies Avoid Nephrotoxics stop NSAIDs Per orders KYMBERLY SEAMAN Mar 21, 2017 12:53
[2017-03-21] MEDS ORDERED: D5 1/2NS 1000ml IV ONE (15:19)
--- NOTE | 2017-03-21 15:42 | Internal Med Progress Note ---
Subjective Date of Service: Mar 21, 2017 Physician Name Anastacio Jacobsen Attending Physician Aries Hardin MD Current Medications Medications (Trade) Dose Ordered Sig/Lizbeth Route PRN Reason Start Time Stop Time Status Last Admin Dose Admin Acetaminophen (Tylenol) 650 mg Q4H PRN ORAL T>100.5 03/19/17 20:45 04/18/17 12:44 Albuterol/ Ipratropium (DuoNeb 0.5-3(2.5)mg/3ml) 3 ml Q4H PRN HHN Shortness of Breath 03/19/17 20:45 03/24/17 12:44 Amlodipine Besylate (Norvasc) 10 mg DAILY ORAL 03/20/17 09:00 04/19/17 08:59 03/21/17 09:33 Clonidine HCl (Catapres) 0.1 mg Q4H PRN ORAL SBP > 160 03/19/17 20:45 04/18/17 12:44 Dextrose (Dextrose 50%) PRN PRN IV HYPOGLYCEMIA 03/20/17 09:00 04/19/17 08:59 Escitalopram Oxalate (Lexapro) 20 mg DAILY ORAL 03/21/17 09:00 04/20/17 08:59 03/21/17 09:31 Heparin Sodium (Porcine) (Heparin 5000 units/ml) 5,000 units EVERY 12 HOURS SUBQ 03/19/17 21:30 04/18/17 21:29 03/21/17 09:30 Insulin Aspart (NovoLOG) AC+HS SUBQ 03/21/17 16:30 04/20/17 16:29 Insulin Aspart (NovoLOG) 5 units BEFORE MEALS SUBQ 03/21/17 16:30 04/20/17 16:29 Insulin Detemir (Levemir) 18 units DAILY SUBQ 03/22/17 09:00 04/21/17 08:59 Insulin Detemir (Levemir) 18 units NOW ONCE SUBQ 03/21/17 16:00 03/21/17 16:01 Mirtazapine (Remeron) 15 mg QHS ORAL 03/20/17 21:00 04/19/17 20:59 03/20/17 21:07 Morphine Sulfate (Morphine Sulfate) 2 mg Q4H PRN IVP Severe Pain (Pain Scale 7-10) 03/19/17 20:45 03/26/17 12:44 03/21/17 10:30 Nitroglycerin (Ntg) 0.4 mg Q5M X 3 DOSES PRN SL Prn Chest Pain 03/19/17 20:30 04/18/17 12:44 Ondansetron HCl (Zofran) 4 mg Q6H PRN IVP Nausea & Vomiting 03/19/17 21:00 04/18/17 20:59 03/20/17 02:15 Pantoprazole (Protonix) 40 mg EVERY 12 HOURS ORAL 03/21/17 21:00 04/20/17 20:59 Polyethylene Glycol (Miralax) 17 gm HSPRN PRN ORAL Constipation 03/19/17 21:00 04/18/17 20:59 Pregabalin (Lyrica) 50 mg BID ORAL 03/20/17 09:00 04/18/17 17:59 03/21/17 09:29 Sodium Chloride 1,000 ml @ 75 mls/hr [id number] IV 03/21/17 15:30 04/20/17 15:29 03/21/17 15:38 Temazepam (Restoril) 15 mg HSPRN PRN ORAL Insomnia 03/19/17 21:00 03/26/17 20:59 Allergies: Coded Allergies: No Known Allergies (Unverified , 04/24/14) ROS Limited/Unobtainable: No Constitutional: Reports: no symptoms HEENT: Reports: no symptoms Cardiovascular: Reports: no symptoms Respiratory: Reports: no symptoms Gastrointestinal/Abdominal: Reports: no symptoms Genitourinary: Reports: no symptoms Neurologic/Psychiatric: Reports: no symptoms Subjective 46 YO F admitted with diabetic ketoacidosis. ICU. Cover for Int Med-Dr Hardin. Currently on insulin drip. Blood glucose labile Objective Last Vital Signs Date Time Temp Pulse Resp B/P (MAP) Pulse Ox O2 Delivery O2 Flow Rate FiO2 03/21/17 15:00 92 14 123/54 94 Room Air 03/21/17 12:00 98.6 03/21/17 07:00 21 Laboratory Tests Test 03/21/17 05:05 White Blood Count 6.6 K/UL (4.8-10.8) Red Blood Count 2.88 M/UL (4.20-5.40) L Hemoglobin 9.2 G/DL (12.0-16.0) L Hematocrit 28.1 % (37.0-47.0) L Mean Corpuscular Volume 98 FL (80-99) Mean Corpuscular Hemoglobin 31.9 PG (27.0-31.0) H Mean Corpuscular Hemoglobin Concent 32.6 G/DL (32.0-36.0) Red Cell Distribution Width 14.9 % (11.6-14.8) H Platelet Count 181 K/UL (150-450) Mean Platelet Volume 6.7 FL (6.5-10.1) Neutrophils (%) (Auto) 46.1 % (45.0-75.0) Lymphocytes (%) (Auto) 46.8 % (20.0-45.0) H Monocytes (%) (Auto) 5.6 % (1.0-10.0) Eosinophils (%) (Auto) 0.6 % (0.0-3.0) Basophils (%) (Auto) 1.1 % (0.0-2.0) Sodium Level 140 mEQ/L (135-145) Potassium Level 3.7 mEQ/L (3.4-4.9) Chloride Level 104 mEQ/L (98-107) Carbon Dioxide Level 23 mEQ/L (20-30) Anion Gap 13 (5-15) Blood Urea Nitrogen 11 mg/dL (7-23) Creatinine 1.4 mg/dL (0.5-0.9) H Estimat Glomerular Filtration Rate 49.3 mL/min (>60) Glucose Level 91 mg/dL (74-106) Calcium Level 7.7 mg/dL (8.6-10.2) L Phosphorus Level 2.5 mg/dL (2.5-4.8) Magnesium Level 1.4 mg/dL (1.7-2.5) L Total Bilirubin 0.3 mg/dL (0.0-1.2) Aspartate Amino Transf (AST/SGOT) 33 U/L (5-40) Alanine Aminotransferase (ALT/SGPT) 23 U/L (3-33) Alkaline Phosphatase 85 U/L (35-104) Total Protein 5.5 g/dL (6.6-8.7) L Albumin 2.9 g/dL (3.5-5.2) L Globulin 2.6 g/dL Albumin/Globulin Ratio 1.1 (1.0-2.7) Intake and Output 03/21/17 03/22/17 19:00 07:00 Intake Total 863.06 ml Output Total 0 ml Balance 863.06 ml Intake Oral 50 ml IV Total 813.06 ml Output Urine Total 0 ml # Voids 1 # Bowel Movements 1 Objective General Appearance: WD/WN, no apparent distress, alert EENT: PERRL/EOMI, normal ENT inspection, TMs normal Neck: non-tender, normal alignment, supple, normal inspection Cardiovascular: normal peripheral pulses, normal rate, regular rhythm, no gallop/murmur, no JVD Respiratory/Chest: chest wall non-tender, lungs clear, normal breath sounds, no respiratory distress, no accessory muscle use Abdomen: normal bowel sounds, non tender, soft, no organomegaly, no mass Extremities: normal range of motion, non-tender Neurologic: etcher aircraft II-XII grossly normal, no motor/sensory deficits Assessment/Plan Problem List: (1) Diabetes mellitus type 1, uncontrolled, insulin dependent Assessment & Plan: See endocrinology note. Continue insulin drip per endo (2) Diabetic ketoacidosis, type I Assessment & Plan: See endocrinology note. Continue insulin drip. ICU status (3) HTN (hypertension) Assessment & Plan: Continue norvasc. (4) Diabetic gastroparesis (5) GERD (gastroesophageal reflux disease) (6) Major depression Assessment & Plan: Cont lexapro Status: not improved ANASTACIO JACOBSEN Mar 21, 2017 15:42
[2017-03-21] MEDS ORDERED: Levemir Flexpen SUBQ ONE (16:00)
[2017-03-21] MEDS: NovoLOG Insulin Flexpen SUBQ SCH ×2 (16:27→20:45)
[2017-03-21] MEDS ORDERED: NovoLOG Insulin Flexpen SUBQ SCH (16:30)
[2017-03-21] MEDS ORDERED: Nitroglycerin Subl 0.4mg tab SL PRN (22:15)
[2017-03-22] VITALS: BP 101/64
[2017-03-22] MEDS ORDERED: Albuterol/Ipratropium 3ml neb HHN PRN (00:45)
[2017-03-22] MEDS ORDERED: Morphine Sulfate 2mg/ml Inj IVP PRN (00:45)
[2017-03-22 04:00] VITALS: BP 167/87
[2017-03-22 04:40] VITALS: BP 143/71
[2017-03-22] MEDS: NovoLOG Insulin Flexpen SUBQ SCH ×6 (06:29→12:16)
[2017-03-22 08:00] VITALS: BP 134/71
[2017-03-22] MEDS ORDERED: Heparin 5000 units/ml inj SUBQ SCH (09:00)
[2017-03-22] MEDS ORDERED: Levemir Flexpen SUBQ SCH ×2 (09:00)
[2017-03-22] MEDS ORDERED: Lyrica 50mg cap ORAL SCH (09:00)
[2017-03-22 10:18] LABS: BASOPHILS % (AUTO) 0.5 % (0.0-2.0); LYMPHOCYTES % (AUTO) 19.8 % (20.0-45.0); MEAN CORPUSCULAR HEMOGLOBIN 30.7 PG (27.0-31.0); MEAN CORPUSCULAR HGB CONC 30.9 G/DL (32.0-36.0); MEAN CORPUSCULAR VOLUME 99 FL (80-99); MEAN PLATELET VOLUME 7.1 FL (6.5-10.1); MONOCYTES % (AUTO) 4.7 % (1.0-10.0); NEUTROPHILS % (AUTO) 73.9 % (45.0-75.0); PLATELET COUNT 186 K/UL (150-450); RED BLOOD COUNT 3.26 M/UL (4.20-5.40); RED CELL DISTRIBUTION WIDTH 15.1 % (11.6-14.8); WHITE BLOOD COUNT 6.2 K/UL (4.8-10.8)
[2017-03-22 10:39] LABS: ALANINE AMINOTRANSFERASE 36 U/L (3-33); ALBUMIN/GLOBULIN RATIO 1.3 (1.0-2.7); ANION GAP 12 (5-15); ASPARTATE AMINO TRANSFERASE 97 U/L (5-40); CALCIUM 7.9 mg/dL (8.6-10.2); CARBON DIOXIDE 25 mEQ/L (20-30); CHLORIDE 104 mEQ/L (98-107); CHOLESTEROL 158 mg/dL (< 200); CHOLESTEROL/HDL RATIO 2.5 (3.3-4.4); CREATININE 1.3 mg/dL (0.5-0.9); CRP QUANT < 0.3 mg/dL (< 0.5); GLOMERULAR FILTRATION RATE 53.7 mL/min (>60); HEMOLYSIS 3; LDL CHOLESTEROL CALC 37 mg/dL (60-99); MAGNESIUM 1.8 mg/dL (1.7-2.5); PHOSPHORUS 2.7 mg/dL (2.5-4.8); POTASSIUM 4.3 mEQ/L (3.4-4.9); SODIUM 141 mEQ/L (135-145); TOTAL PROTEIN 5.7 g/dL (6.6-8.7); URIC ACID 5.4 mg/dL (3.0-7.5)
[2017-03-22 11:48] VITALS: BP 146/72
[2017-03-22 12:00] VITALS: BP 146/72
--- NOTE | 2017-03-22 12:35 | General Progress Note ---
Assessment/Plan Status: doing well, stable Subjective Date patient seen: Mar 22, 2017 Neurologic/Psychiatric: Reports: anxiety, depressed, emotional problems Allergies: Coded Allergies: No Known Allergies (Unverified , 04/24/14) Objective Last 24 Hour Vital Signs Date Time Temp Pulse Resp B/P (MAP) Pulse Ox O2 Delivery O2 Flow Rate FiO2 03/22/17 12:00 98.5 98 19 146/72 95 Room Air 03/22/17 11:48 98.5 19 146/72 95 Room Air 03/22/17 08:39 99 134/71 03/22/17 08:00 98.1 99 19 134/71 96 Room Air 03/22/17 07:54 90 20 Room Air 21 03/22/17 04:40 143/71 03/22/17 04:00 97.9 100 18 167/87 98 Room Air 03/22/17 00:55 92 20 Room Air 03/22/17 00:00 97.4 83 16 101/64 94 Room Air 03/21/17 22:07 97.1 89 18 126/73 96 Room Air 03/21/17 21:00 78 15 124/63 97 Room Air 03/21/17 20:00 79 03/21/17 20:00 98.0 80 18 101/49 94 Room Air 03/21/17 19:20 86 15 93/47 94 Room Air 03/21/17 19:00 86 20 93/47 94 Room Air 03/21/17 18:00 96 15 132/72 99 Room Air 03/21/17 17:00 98 18 105/52 95 Room Air 03/21/17 16:00 98.1 90 18 116/63 98 Room Air 03/21/17 15:00 92 14 123/54 94 Room Air 03/21/17 14:00 96 20 99/40 94 Room Air 03/21/17 13:00 108 18 145/62 94 Room Air Intake and Output 03/22/17 03/23/17 19:00 07:00 Intake Total 615 ml Balance 615 ml Intake Oral 240 ml IV Total 375 ml # Voids 1 Laboratory Tests 03/22/17 09:25: White Blood Count 6.2, Red Blood Count 3.26L, Hemoglobin 10.0L, Hematocrit 32.4L , Mean Corpuscular Volume 99, Mean Corpuscular Hemoglobin 30.7, Mean Corpuscular Hemoglobin Concent 30.9L, Red Cell Distribution Width 15.1H, Platelet Count 186, Mean Platelet Volume 7.1, Neutrophils (%) (Auto) 73.9, Lymphocytes (%) (Auto) 19.8L, Monocytes (%) (Auto) 4.7, Eosinophils (%) (Auto) 1.0, Basophils (%) (Auto) 0.5, Sodium Level 141, Potassium Level 4.3, Chloride Level 104, Carbon Dioxide Level 25, Anion Gap 12, Blood Urea Nitrogen 8, Creatinine 1.3H, Estimat Glomerular Filtration Rate 53.7, Glucose Level 280#H, Uric Acid 5.4, Calcium Level 7.9L, Phosphorus Level 2.7, Magnesium Level 1.8, Total Bilirubin 0.3, Gamma Glutamyl Transpeptidase 53H, Aspartate Amino Transf ( AST/SGOT) 97H, Alanine Aminotransferase (ALT/SGPT) 36H, Alkaline Phosphatase 101 , Total Creatine Kinase 94, C-Reactive Protein, Quantitative < 0.3, Pro-B-Type Natriuretic Peptide 356H, Total Protein 5.7L, Albumin 3.3L, Globulin 2.4, Albumin/Globulin Ratio 1.3, Triglycerides Level 289H, Cholesterol Level 158, LDL Cholesterol 37L, HDL Cholesterol 63H, Cholesterol/HDL Ratio 2.5L Height (Feet): 5 Height (Inches): 3.00 Weight (Pounds): 130 General Appearance: no apparent distress, alert, thin Neurologic: alert, oriented x 3, responsive, depressed affect Elisha Hardy M.D. Mar 22, 2017 12:34
--- NOTE | 2017-03-22 13:16 | General Progress Note ---
Assessment/Plan Status: stable Assessment/Plan Acute renal failure- 1. Diabetic type 1 2. h/o Diabetic ketoacidosis (CC) 3. History of gastroesophageal reflux disease. 4. Depression. 5. Hypertension. 6. back pain Plan: hydrate Keep BP in check- Monitor renal parameters and Chemistries- Urine studies Avoid Nephrotoxics stop NSAIDs Per orders Subjective ROS Limited/Unobtainable: No Constitutional: Reports: malaise Allergies: Coded Allergies: No Known Allergies (Unverified , 04/24/14) Objective Last 24 Hour Vital Signs Date Time Temp Pulse Resp B/P (MAP) Pulse Ox O2 Delivery O2 Flow Rate FiO2 03/22/17 12:00 98.5 98 19 146/72 95 Room Air 03/22/17 11:48 98.5 19 146/72 95 Room Air 03/22/17 08:39 99 134/71 03/22/17 08:00 98.1 99 19 134/71 96 Room Air 03/22/17 07:54 90 20 Room Air 21 03/22/17 04:40 143/71 03/22/17 04:00 97.9 100 18 167/87 98 Room Air 03/22/17 00:55 92 20 Room Air 21 03/22/17 00:00 97.4 83 16 101/64 94 Room Air 03/21/17 22:07 97.1 89 18 126/73 96 Room Air 03/21/17 21:00 78 15 124/63 97 Room Air 03/21/17 20:00 79 03/21/17 20:00 98.0 80 18 101/49 94 Room Air 03/21/17 19:20 86 15 93/47 94 Room Air 03/21/17 19:00 86 20 93/47 94 Room Air 03/21/17 18:00 96 15 132/72 99 Room Air 03/21/17 17:00 98 18 105/52 95 Room Air 03/21/17 16:00 98.1 90 18 116/63 98 Room Air 03/21/17 15:00 92 14 123/54 94 Room Air 03/21/17 14:00 96 20 99/40 94 Room Air Intake and Output 03/22/17 03/23/17 19:00 07:00 Intake Total 615 ml Balance 615 ml Intake Oral 240 ml IV Total 375 ml # Voids 1 Laboratory Tests 03/22/17 09:25: White Blood Count 6.2, Red Blood Count 3.26L, Hemoglobin 10.0L, Hematocrit 32.4L , Mean Corpuscular Volume 99, Mean Corpuscular Hemoglobin 30.7, Mean Corpuscular Hemoglobin Concent 30.9L, Red Cell Distribution Width 15.1H, Platelet Count 186, Mean Platelet Volume 7.1, Neutrophils (%) (Auto) 73.9, Lymphocytes (%) (Auto) 19.8L, Monocytes (%) (Auto) 4.7, Eosinophils (%) (Auto) 1.0, Basophils (%) (Auto) 0.5, Sodium Level 141, Potassium Level 4.3, Chloride Level 104, Carbon Dioxide Level 25, Anion Gap 12, Blood Urea Nitrogen 8, Creatinine 1.3H, Estimat Glomerular Filtration Rate 53.7, Glucose Level 280#H, Uric Acid 5.4, Calcium Level 7.9L, Phosphorus Level 2.7, Magnesium Level 1.8, Total Bilirubin 0.3, Gamma Glutamyl Transpeptidase 53H, Aspartate Amino Transf ( AST/SGOT) 97H, Alanine Aminotransferase (ALT/SGPT) 36H, Alkaline Phosphatase 101 , Total Creatine Kinase 94, C-Reactive Protein, Quantitative < 0.3, Pro-B-Type Natriuretic Peptide 356H, Total Protein 5.7L, Albumin 3.3L, Globulin 2.4, Albumin/Globulin Ratio 1.3, Triglycerides Level 289H, Cholesterol Level 158, LDL Cholesterol 37L, HDL Cholesterol 63H, Cholesterol/HDL Ratio 2.5L Height (Feet): 5 Height (Inches): 3.00 Weight (Pounds): 130 General Appearance: no apparent distress Cardiovascular: normal rate Respiratory/Chest: lungs clear Objective no change in PE KYMBERLY SEAMAN Mar 22, 2017 13:15
--- NOTE | 2017-03-22 16:29 | Discharge Summary ---
Discharge Summary Hospital Course Date of Admission Mar 19, 2017 at 12:02 Date of Discharge Mar 22, 2017 at 14:45 Admitting Diagnosis DEHYDRATION, ARF HPI Tricia Carpio is a 46 year old female who was admitted on Mar 19, 2017 at 12: 02 for Dehydration, Acute Renal Failure Hospital Course job # [id number] Discharge Discharge Disposition Patient was discharged to Home (01) Discharge Diagnoses: Aries Hardin MD Mar 22, 2017 16:29
--- NOTE | 2017-03-22 18:52 | Pulmonology Progress Note ---
Assessment/Plan Problems: (1) Uncontrolled diabetes mellitus (2) Non-compliance with treatment (3) Anemia (4) GERD (gastroesophageal reflux disease) (5) Major depression Assessment/Plan bicarb better BS better transfer out of ICU when Ok with Endo anion gap resolved tachycardia resolved Subjective ROS Limited/Unobtainable: No Constitutional: Reports: fatigue Genitourinary: Reports: frequency Neurologic: Reports: weakness Allergies: Coded Allergies: No Known Allergies (Unverified , 04/24/14) Objective Last 24 Hour Vital Signs Date Time Temp Pulse Resp B/P (MAP) Pulse Ox O2 Delivery O2 Flow Rate FiO2 03/22/17 12:00 98.5 98 19 146/72 95 Room Air 03/22/17 11:48 98.5 19 146/72 95 Room Air 03/22/17 08:39 99 134/71 03/22/17 08:00 98.1 99 19 134/71 96 Room Air 03/22/17 07:54 90 20 Room Air 21 03/22/17 04:40 143/71 03/22/17 04:00 97.9 100 18 167/87 98 Room Air 03/22/17 00:55 92 20 Room Air 21 03/22/17 00:00 97.4 83 16 101/64 94 Room Air 03/21/17 22:07 97.1 89 18 126/73 96 Room Air 03/21/17 21:00 78 15 124/63 97 Room Air 03/21/17 20:00 79 03/21/17 20:00 98.0 80 18 101/49 94 Room Air 03/21/17 19:20 86 15 93/47 94 Room Air 03/21/17 19:00 86 20 93/47 94 Room Air Intake and Output 03/22/17 03/23/17 19:00 07:00 Intake Total 855 ml Balance 855 ml Intake Oral 480 ml IV Total 375 ml # Voids 1 General Appearance: no acute distress HEENT: normocephalic, atraumatic, anicteric, PERRL Respiratory/Chest: chest wall non-tender, lungs clear, normal breath sounds, no respiratory distress Breasts: no masses Cardiovascular: normal peripheral pulses, normal rate, regular rhythm, no JVD Abdomen: normal bowel sounds, soft, non tender, no organomegaly, non distended Genitourinary: normal external genitalia Extremities: no cyanosis Skin: no rash, no lesions 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, no motor/sensory deficits Laboratory Tests 03/22/17 09:25: White Blood Count 6.2, Red Blood Count 3.26L, Hemoglobin 10.0L, Hematocrit 32.4L , Mean Corpuscular Volume 99, Mean Corpuscular Hemoglobin 30.7, Mean Corpuscular Hemoglobin Concent 30.9L, Red Cell Distribution Width 15.1H, Platelet Count 186, Mean Platelet Volume 7.1, Neutrophils (%) (Auto) 73.9, Lymphocytes (%) (Auto) 19.8L, Monocytes (%) (Auto) 4.7, Eosinophils (%) (Auto) 1.0, Basophils (%) (Auto) 0.5, Sodium Level 141, Potassium Level 4.3, Chloride Level 104, Carbon Dioxide Level 25, Anion Gap 12, Blood Urea Nitrogen 8, Creatinine 1.3H, Estimat Glomerular Filtration Rate 53.7, Glucose Level 280#H, Uric Acid 5.4, Calcium Level 7.9L, Phosphorus Level 2.7, Magnesium Level 1.8, Total Bilirubin 0.3, Gamma Glutamyl Transpeptidase 53H, Aspartate Amino Transf ( AST/SGOT) 97H, Alanine Aminotransferase (ALT/SGPT) 36H, Alkaline Phosphatase 101 , Total Creatine Kinase 94, C-Reactive Protein, Quantitative < 0.3, Pro-B-Type Natriuretic Peptide 356H, Total Protein 5.7L, Albumin 3.3L, Globulin 2.4, Albumin/Globulin Ratio 1.3, Triglycerides Level 289H, Cholesterol Level 158, LDL Cholesterol 37L, HDL Cholesterol 63H, Cholesterol/HDL Ratio 2.5L VANESSA SAGASTUME Mar 22, 2017 18:52
[2017-03-22] MEDS ORDERED: Miralax 17gm pkt ORAL PRN (21:00)
--- NOTE | 2017-03-23 06:45 | Discharge Summary ---
DATE OF ADMISSION: 03/19/2017 DATE OF DISCHARGE: 03/22/2017 History Of Present Illness: This is a 46-year-old, very delightful, female with past medical history significant for diabetes type 1, history of hypertension with a prior history of DKA, major depression, diabetic gastroparesis with GERD, who presented to the hospital after was noted to have elevated blood glucose level. Shortly after initial evaluation, the patient was consulted with Dr. Judd Hayes from Endocrine, Dr. Adriano Styles from Nephrology, and Dr. Paredes from Pulmonary Critical Care. The patient was noted that the blood sugar was very elevated and subsequently was transferred to ICU. Throughout the hospital course, the patient's status gradually improved and subsequently shortly after that was transferred back to the floor. The patient stabilized on the medication including insulin and Levemir as well as NovoLog sliding scale. The patient was essentially discharged home today to be followed my office as well as Dr. Hayes as outpatient. FINAL DIAGNOSES: 1. Diabetes type 1, uncontrolled. 2. Diabetic ketoacidosis. 3. Hypertension. 4. Diabetic gastroparesis. 5. Gastroesophageal reflux disease. 6. Major depression. MEDICATION ON DISCHARGE: Continue discharge medication list. ACTIVITY: As tolerated. DIET: Cardiac diet. Followup: I advised the patient to follow up my office within one week. Aries Hardin M.D. DR: JAI JOB#: [id number] CC:
[2017-05-06] MEDS ORDERED: AMOXICILLI200 MG/5 M PO (00:25)
[2017-05-06] MEDS ORDERED: INSULIN (00:25)
[2017-05-06] MEDS ORDERED: HYSINGLA ER20 MG PO (00:25)
[2017-05-06] MEDS ORDERED: LISINOPRIL5 MG ORAL (00:25)
[2017-05-06] MEDS ORDERED: HYDROCHLOROTH12.5 M2 ORAL (00:25)
== END 2017-03-22 14:45 | disposition home or self-care (01) | DRG 638 ==
LOC: EMR 08:54 → 4E 12:02 → EDBEDREQ 12:58 → ICU 19:52 → 3E 03-21 22:00
DX: E10.65 Type 1 diabetes mellitus with hyperglycemia (principal); N17.9 Acute kidney failure, unspecified; K31.84 Gastroparesis; E10.43 Type 1 diabetes mellitus with diabetic autonomic (poly)neuropathy; F32.9 Major depressive disorder, single episode, unspecified; E86.0 Dehydration; M54.9 Dorsalgia, unspecified; I10 Essential (primary) hypertension; K21.9 Gastro-esophageal reflux disease without esophagitis; D64.9 Anemia, unspecified; Z79.4 Long term (current) use of insulin; Z91.14 Patient's other noncompliance with medication regimen
CPT/HCPCS: 36415; 80048; 80053; 80061; 81003; 81025; 82009; 82550; 82947; 82962; 82977; 83036; 83735; 83880; 84100; 84443; 84550; 85025; 86140; 94664; 99285; J1815; J2405; S5561

== ENCOUNTER 2017-04-25 15:26 | Inpatient (IN) | payer OTHER ==
[~2017-04-25] VITALS: Ht 162.6 cm; Wt 58.7 kg
[2017-04-25 16:00] VITALS: BP 137/66
[2017-04-25 16:38] LABS: MEAN CORPUSCULAR HEMOGLOBIN 29.8 PG (27.0-31.0); MEAN CORPUSCULAR VOLUME 100 FL (80-99); MEAN PLATELET VOLUME 7.4 FL (6.5-10.1); NEUTROPHILS % (AUTO) 77.8 % (45.0-75.0); PLATELET COUNT 292 K/UL (150-450); RED BLOOD COUNT 3.69 M/UL (4.20-5.40); WHITE BLOOD COUNT 18.8 K/UL (4.8-10.8)
[2017-04-25 16:39] LABS: BASOPHILS % (AUTO) 0.6 % (0.0-2.0); LYMPHOCYTES % (AUTO) 16.1 % (20.0-45.0); MONOCYTES % (AUTO) 5.7 % (1.0-10.0)
[2017-04-25 17:06] LABS: ANION GAP 27 mmol/L (5-15); CALCIUM 10.1 MG/DL (8.5-10.1); CARBON DIOXIDE 19 MMOL/L (21-32); CHLORIDE 98 MMOL/L (98-107); GLOMERULAR FILTRATION RATE 20.4 mL/min (>60); POTASSIUM 4.2 MMOL/L (3.5-5.1); SODIUM 144 MMOL/L (136-145)
[2017-04-25 17:11] LABS: ALANINE AMINOTRANSFERASE 108 U/L (12-78); ASPARTATE AMINO TRANSFERASE 66 U/L (15-37); LIPASE 2589 U/L (73-393); MAGNESIUM 2.5 MG/DL (1.8-2.4); TOTAL PROTEIN 7.5 G/DL (6.4-8.2)
[2017-04-25] MEDS ORDERED: Morphine Sulfate 4mg/ml Inj IVP ONE (17:30)
[2017-04-25 19:20] VITALS: BP 108/57
[2017-04-25] MEDS ORDERED: Ketorolac 30mg Inj IV PRN (19:30)
[2017-04-25] MEDS ORDERED: Miralax 17gm pkt ORAL PRN (19:30)
[2017-04-25] MEDS ORDERED: Mylanta II UD 30ml ORAL PRN (19:30)
[2017-04-25] MEDS ORDERED: Nitroglycerin Subl 0.4mg tab SL PRN (19:30)
[2017-04-25] MEDS ORDERED: Heparin 5000 units/ml inj SUBQ SCH (21:00)
--- NOTE | 2017-04-25 21:09 | Emergency Room Report ---
History of Present Illness General Chief Complaint: Abdominal Pain Source: Patient Present Illness HPI The patient is a 46-year-old female with a history of renal failure, diabetes on insulin, and GERD presenting for abdominal pain and fatigue for the past 3 days. Symptoms have been worsening. She states that she has been using her insulin as directed. She states that she has not taken in enough fluids recently. She admits to a 6/10 total body pain described as a dull ache. She doesn admit to nausea but denies vomiting. She denies other symptoms including fever, dizziness, blurred vision, neck pain or stiffness, shortness of breath, chest pain, diarrhea Allergies: Coded Allergies: No Known Allergies (Unverified , 04/24/14) Patient History Past Medical History: see triage record, DM, GERD, renal disease Pertinent Family History: none Reviewed Nursing Documentation: PMH: Agreed, PSxH: Agreed Nursing Documentation-PMH Past Medical History: No History, Except For Hx Cardiac Problems: No Hx Hypertension: Yes Hx Pacemaker: No Hx Diabetes: Yes Hx Cancer: No Hx Gastrointestinal Problems: Yes - GERD Hx Neurological Problems: No Hx Concentration Difficulty: No Review of Systems All Other Systems: negative except mentioned in HPI Physical Exam Vital Signs Date Time Temp Pulse Resp B/P (MAP) Pulse Ox O2 Delivery O2 Flow Rate FiO2 04/25/17 15:15 99.1 102 16 143/78 99 Room Air Sp02 EP Interpretation: reviewed, normal General Appearance: no apparent distress, alert, GCS 15, non-toxic Head: normocephalic, atraumatic Eyes: bilateral eye normal inspection, bilateral eye PERRL ENT: hearing grossly normal, normal pharynx, no angioedema, normal voice Neck: full range of motion, supple/symm/no masses Respiratory: chest non-tender, lungs clear, normal breath sounds, speaking full sentences Cardiovascular #1: regular rate, rhythm, no edema Gastrointestinal: normal bowel sounds, soft, non-distended, no guarding, no rebound, tenderness - epigastric Genitourinary: normal inspection, no CVA tenderness Musculoskeletal: back normal, gait/station normal, normal range of motion, non- tender Neurologic: alert, oriented x3, responsive, motor strength/tone normal, sensory intact, speech normal Psychiatric: judgement/insight normal, memory normal, mood/affect normal, no suicidal/homicidal ideation Skin: normal color, no rash, warm/dry, well hydrated Lymphatic: no adenopathy Medical Decision Making PA Attestation Dr. Garcia is my supervising physician. Patient management was discussed with my supervising physician Diagnostic Impression: Primary Impression: ARF (acute renal failure) Qualified Codes: N17.9 - Acute kidney failure, unspecified Additional Impressions: GERD (gastroesophageal reflux disease) Qualified Codes: K21.9 - Gastro-esophageal reflux disease without esophagitis Pancreatitis Qualified Codes: K85.90 - Acute pancreatitis without necrosis or infection, unspecified ER Course The patient is a 46-year-old female presenting for abdominal pain DDx considered but not limited to: ARF, GERD, gastritis, pancreatitis, appendicitis, dehydration, among others PE: Afebrile. NAD. Abdomen: Normal appearance. Non distended. No ecchymosis. Normal BS. TTP over epigastric region. No McBurney point tenderness. No guarding. No CVA tenderness Skin is warm and dry Labs: CBC shows leukocytosis CMP shows hyperglycemia, elevated BUN/creatinine, elevated AST/ALT, and significantly elevated lipase The patient is given IV fluids, Pepcid, zofran, and morphine and is feeling better ABD US unremarkable The patient will be admitted in serious but stable condition. Dr. Garcia has spoken with the admitting physician Laboratory Tests Test 04/25/17 16:20 White Blood Count 18.8 K/UL (4.8-10.8) H Red Blood Count 3.69 M/UL (4.20-5.40) L Hemoglobin 11.0 G/DL (12.0-16.0) L Hematocrit 36.8 % (37.0-47.0) L Mean Corpuscular Volume 100 FL (80-99) H Mean Corpuscular Hemoglobin 29.8 PG (27.0-31.0) Mean Corpuscular Hemoglobin Concent 30.0 G/DL (32.0-36.0) L Red Cell Distribution Width 15.0 % (11.6-14.8) H Platelet Count 292 K/UL (150-450) Mean Platelet Volume 7.4 FL (6.5-10.1) Neutrophils (%) (Auto) 77.8 % (45.0-75.0) H Lymphocytes (%) (Auto) 16.1 % (20.0-45.0) L Monocytes (%) (Auto) 5.7 % (1.0-10.0) Eosinophils (%) (Auto) 0.0 % (0.0-3.0) Basophils (%) (Auto) 0.6 % (0.0-2.0) Sodium Level 144 MMOL/L (136-145) Potassium Level 4.2 MMOL/L (3.5-5.1) Chloride Level 98 MMOL/L (98-107) Carbon Dioxide Level 19 MMOL/L (21-32) L Anion Gap 27 mmol/L (5-15) H Blood Urea Nitrogen 52 mg/dL (7-18) H Creatinine 3.0 MG/DL (0.55-1.30) H Estimate Glomerular Filtration Rate 20.4 mL/min (>60) Glucose Level 218 MG/DL (74-106) H Calcium Level 10.1 MG/DL (8.5-10.1) Magnesium Level 2.5 MG/DL (1.8-2.4) H Total Bilirubin 0.6 MG/DL (0.2-1.0) Aspartate Amino Transferase (AST) 66 U/L (15-37) H Alanine Aminotransferase (ALT) 108 U/L (12-78) H Alkaline Phosphatase 161 U/L (46-116) H Total Protein 7.5 G/DL (6.4-8.2) Albumin 3.7 G/DL (3.4-5.0) Globulin 3.8 g/dL Albumin/Globulin Ratio 1.0 (1.0-2.7) Lipase 2589 U/L (73-393) H Acetone Level Positive-large (NEGATIVE) Lab Results Impression CBC shows leukocytosis CMP shows hyperglycemia, elevated BUN/creatinine, elevated AST/ALT, and significantly elevated lipase EKG Diagnostic Results EP Interpretation: Sinus tachycardia Rate: tachycardiac - 102 Rhythm: NSR ST Segments: no acute changes ASA given to the pt in ED: No PA Scribe Text EKG was reviewed and read with my supervising physician. No acute ST segment changes are seen. Normal rate and rhythm. No acute changes. CT/MRI/US Diagnostic Results CT/MRI/US Diagnostic Results : Imaging Test Ordered: abd US Impression unremarkable Last Vital Signs Date Time Temp Pulse Resp B/P (MAP) Pulse Ox O2 Delivery O2 Flow Rate FiO2 04/25/17 20:08 98.2 04/25/17 19:20 98 20 108/57 97 Room Air Status: improved Disposition: ADMITTED INPATIENT Condition: Serious Referrals: NOT CHOSEN IPA/,REFERRING (PCP) UZAIR CORONADO Apr 25, 2017 21:09
[2017-04-25 21:33] VITALS: BP 104/55
[2017-04-25 21:41] LABS: APPEARANCE,URINE VERY CLOUDY; KETONES,URINE 4+ (NEGATIVE); LEUKOCYTE ESTERASE ,URINE 3+ (NEGATIVE); NITRITE,URINE POSITIVE (NEGATIVE); PH,URINE 5 (4.5-8.0); PROTEIN,URINE 2+ (NEGATIVE); UROBILINOGEN,URINE NORMAL MG/DL (0.0-1.0)
[2017-04-25 21:45] LABS: BACTERIA,URINE MANY /HPF; SQUAMOUS EPITHELIAL CELL,UR MANY /LPF (NONE/OCC); YEAST,URINE MODERATE /HPF
[2017-04-25 21:50] VITALS: BP 109/49
[2017-04-25] MEDS: NovoLOG Insulin Flexpen SUBQ SCH (23:35)
[2017-04-26] VITALS (18 sets, daily range): BP systolic 105–148; BP diastolic 41–70
[2017-04-26] MEDS: NovoLOG Insulin Flexpen SUBQ SCH ×4 (06:48→21:00)
[2017-04-26 08:38] LABS: MEAN CORPUSCULAR HEMOGLOBIN 29.9 PG (27.0-31.0); MEAN CORPUSCULAR HGB CONC 29.3 G/DL (32.0-36.0); MEAN CORPUSCULAR VOLUME 102 FL (80-99); MEAN PLATELET VOLUME 7.4 FL (6.5-10.1); PLATELET COUNT 255 K/UL (150-450); RED BLOOD COUNT 3.48 M/UL (4.20-5.40); RED CELL DISTRIBUTION WIDTH 15.8 % (11.6-14.8); WHITE BLOOD COUNT 14.1 K/UL (4.8-10.8)
[2017-04-26 08:49] LABS: PROTHROMBIN TIME 10.7 SEC (9.30-11.50)
[2017-04-26] MEDS ORDERED: Levemir Flexpen SUBQ SCH ×2 (09:00→11:00)
[2017-04-26] MEDS ORDERED: Lyrica 50mg cap ORAL SCH (09:00)
[2017-04-26 09:04] LABS: HEMOGLOBIN A1C 12.1 % (4.3-6.0)
[2017-04-26 09:07] LABS: ALANINE AMINOTRANSFERASE 88 U/L (12-78); ALBUMIN/GLOBULIN RATIO 0.9 (1.0-2.7); AMYLASE 1083 U/L (25-115); ANION GAP 27 mmol/L (5-15); ASPARTATE AMINO TRANSFERASE 36 U/L (15-37); CALCIUM 8.4 MG/DL (8.5-10.1); CARBON DIOXIDE 16 MMOL/L (21-32); CHLORIDE 102 MMOL/L (98-107); GLOMERULAR FILTRATION RATE 20.4 mL/min (>60); LIPASE 4320 U/L (73-393); POTASSIUM 3.9 MMOL/L (3.5-5.1); SODIUM 144 MMOL/L (136-145); THYROID STIMULATING HORMONE 2.035 uiU/mL (0.360-3.740); TOTAL PROTEIN 6.9 G/DL (6.4-8.2)
--- NOTE | 2017-04-26 09:23 | Pulmonolgy Critical Care Note ---
Critical Care - Asmt/Plan Problems: (1) ARF (acute renal failure) (2) Diabetic ketoacidosis, type I (3) Pancreatitis (4) Hypertension Respiratory: monitor respiratory rate Cardiac: continue to monitor HR/BP Renal: keep IV fluid Endocrine: monitor blood sugar, d/c insulin drip Hematologic: monitor H/H Neurologic: PRN Ativan Prophylaxis: Protonix Disposition: keep in ICU Notes Reviewed: renal Discussed with: nurses, consultants Critical Care - Objective Last 24 Hour Vital Signs Date Time Temp Pulse Resp B/P (MAP) Pulse Ox O2 Delivery O2 Flow Rate FiO2 04/26/17 08:00 98.0 83 17 128/61 96 Room Air 04/26/17 04:00 97.5 97 18 105/41 99 Room Air 04/26/17 02:41 110 04/26/17 00:51 97.2 114 18 141/55 100 Room Air 04/25/17 21:50 97.2 105 20 109/49 97 Room Air 04/25/17 21:42 98.2 109 16 104/55 96 Room Air 04/25/17 21:33 109 16 104/55 96 Room Air 04/25/17 20:08 98.2 04/25/17 19:20 98.2 98 20 108/57 97 Room Air 04/25/17 16:00 98.5 96 17 137/66 98 04/25/17 15:15 99.1 102 16 143/78 99 Room Air Status: awake Condition: critical HEENT: atraumatic Lungs: clear, chest wall tender Heart: HR/BP stable, HR/BP unstable Abdomen: non-tender, feeding tube Extremities: no C/C/E Decubiti: stage Micro: Microbiology Date/Time Source Procedure Growth Status 04/25/17 21:00 Urine,Clean Catch Urine Culture - Preliminary Resulted Accucheck: 388 Critical Care - Subjective ROS Limited/Unobtainable: No ICU Day: 1 Interval Events: Transferred to ICU with increased sugar and anion gap. Condition: critical IV Access: peripheral EKG Rhythm: Sinus Rhythm Sputum Amount: None Fluids: NS 150 cc/hour Labs: Laboratory Tests Test 04/25/17 16:20 04/25/17 21:00 04/25/17 22:50 04/26/17 07:55 White Blood Count 18.8 K/UL (4.8-10.8) H 14.1 K/UL (4.8-10.8) H Red Blood Count 3.69 M/UL (4.20-5.40) L 3.48 M/UL (4.20-5.40) L Hemoglobin 11.0 G/DL (12.0-16.0) L 10.4 G/DL (12.0-16.0) L Hematocrit 36.8 % (37.0-47.0) L 35.6 % (37.0-47.0) L Mean Corpuscular Volume 100 FL (80-99) H 102 FL (80-99) H Mean Corpuscular Hemoglobin 29.8 PG (27.0-31.0) 29.9 PG (27.0-31.0) Mean Corpuscular Hemoglobin Concent 30.0 G/DL (32.0-36.0) L 29.3 G/DL (32.0-36.0) L Red Cell Distribution Width 15.0 % (11.6-14.8) H 15.8 % (11.6-14.8) H Platelet Count 292 K/UL (150-450) 255 K/UL (150-450) Mean Platelet Volume 7.4 FL (6.5-10.1) 7.4 FL (6.5-10.1) Neutrophils (%) (Auto) 77.8 % (45.0-75.0) H % (45.0-75.0) Lymphocytes (%) (Auto) 16.1 % (20.0-45.0) L % (20.0-45.0) Monocytes (%) (Auto) 5.7 % (1.0-10.0) % (1.0-10.0) Eosinophils (%) (Auto) 0.0 % (0.0-3.0) % (0.0-3.0) Basophils (%) (Auto) 0.6 % (0.0-2.0) % (0.0-2.0) Sodium Level 144 MMOL/L (136-145) 144 MMOL/L (136-145) Potassium Level 4.2 MMOL/L (3.5-5.1) 3.9 MMOL/L (3.5-5.1) Chloride Level 98 MMOL/L (98-107) 102 MMOL/L (98-107) Carbon Dioxide Level 19 MMOL/L (21-32) L 16 MMOL/L (21-32) L Anion Gap 27 mmol/L (5-15) H 27 mmol/L (5-15) H Blood Urea Nitrogen 52 mg/dL (7-18) H 51 mg/dL (7-18) H Creatinine 3.0 MG/DL (0.55-1.30) H 3.0 MG/DL (0.55-1.30) H Estimat Glomerular Filtration Rate 20.4 mL/min (>60) 20.4 mL/min (>60) Glucose Level 218 MG/DL (74-106) H 715 MG/DL (74-106) #*H 443 MG/DL (74-106) #H Calcium Level 10.1 MG/DL (8.5-10.1) 8.4 MG/DL (8.5-10.1) L Magnesium Level 2.5 MG/DL (1.8-2.4) H Total Bilirubin 0.6 MG/DL (0.2-1.0) 0.6 MG/DL (0.2-1.0) Aspartate Amino Transf (AST/SGOT) 66 U/L (15-37) H 36 U/L (15-37) Alanine Aminotransferase (ALT/SGPT) 108 U/L (12-78) H 88 U/L (12-78) H Alkaline Phosphatase 161 U/L (46-116) H 124 U/L (46-116) H Total Protein 7.5 G/DL (6.4-8.2) 6.9 G/DL (6.4-8.2) Albumin 3.7 G/DL (3.4-5.0) 3.2 G/DL (3.4-5.0) L Globulin 3.8 g/dL 3.7 g/dL Albumin/Globulin Ratio 1.0 (1.0-2.7) 0.9 (1.0-2.7) L Lipase 2589 U/L (73-393) H 4320 U/L (73-393) H Acetone Level Positive-large (NEGATIVE) Urine Color Yellow Urine Appearance Very cloudy Urine pH 5 (4.5-8.0) Urine Specific [place] 1.025 (1.005-1.035) Urine Protein 2+ (NEGATIVE) H Urine Glucose (UA) 4+ (NEGATIVE) H Urine Ketones 4+ (NEGATIVE) H Urine Occult Blood 4+ (NEGATIVE) H Urine Nitrite Positive (NEGATIVE) H Urine Bilirubin Negative (NEGATIVE) Urine Urobilinogen Normal MG/DL (0.0-1.0) Urine Leukocyte Esterase 3+ (NEGATIVE) H Urine RBC 5-10 /HPF (0 - 2) H Urine WBC 10-15 /HPF (0 - 2) H Urine Squamous Epithelial Cells Many /LPF (NONE/OCC) H Urine Bacteria Many /HPF (NONE) H Urine Yeast Moderate /HPF (NONE) H Urine HCG, Qualitative Negative Neutrophils % (Manual) Pending Lymphocytes % (Manual) Pending Platelet Estimate Pending Platelet Morphology Pending Prothrombin Time 10.7 SEC (9.30-11.50) Prothromb Time International Ratio 1.0 (0.9-1.1) Activated Partial Thromboplast Time 22 SEC (23-33) L Hemoglobin A1c 12.1 % (4.3-6.0) H Amylase Level 1083 U/L (25-115) *H Thyroid Stimulating Hormone (TSH) 2.035 uiU/mL (0.360-3.740) VANESSA SAGASTUME Apr 26, 2017 09:23
[2017-04-26] MEDS ORDERED: Nitroglycerin Subl 0.4mg tab SL PRN (09:45)
[2017-04-26 09:51] LABS: BAND NEUTROPHILS % (MANUAL) 0 % (0-8); BASOPHILS % (MANUAL) 0 % (0-2); EOSINOPHILS % (MANUAL) 0 % (0-3); LYMPHOCYTES % (MANUAL) 9 % (20-45); NEUTROPHILS % (MANUAL) 91 % (45-75); PLATELET ESTIMATE ADEQUATE; PLATELET MORPHOLOGY NORMAL; TOTAL CELLS COUNTED 100
--- NOTE | 2017-04-26 10:25 | Diagnostic Imaging Report ---
Indication:Abdominal pain Technique: Grayscale and duplex Doppler imaging of the abdomen performed. Comparison: None Findings: The liver has an elongated right lobe which may be a Bashir's lobe or the liver may be enlarged. The aorta shows mural calcification. Portal vein is patent by Doppler examination. Pancreas is grossly unremarkable as visualized. Gallbladder is unremarkable. There is no hydronephrosis or ascites. There is is a cyst in the right kidney measuring about 1 cm. There is no biliary ductal dilatation identified. Spleen is normal in size. CBD is 3.7 mm. Impression: Possible hepatomegaly. More likely, this is a Bashir's lobe configuration. No acute findings appreciated. Right renal cyst
[2017-04-26] MEDS: Lyrica 50mg cap ORAL SCH ×2 (11:33→17:52)
[2017-04-26] MEDS: Heparin 5000 units/ml inj SUBQ SCH ×2 (11:34→21:47)
[2017-04-26] MEDS: HYDROmorphone 1mg/ml Carpuject IVP PRN ×2 (11:49→17:12)
[2017-04-26] MEDS ORDERED: Mylanta II UD 30ml ORAL PRN (13:30)
[2017-04-26] MEDS ORDERED: cefTRIAXone 1 GM in D5W 55 ML IVPB SCH ×2 (14:00→16:00)
--- NOTE | 2017-04-26 14:10 | History & Physical ---
History and Physical History & Physicial Aries Hardin MD Apr 26, 2017 14:10
[2017-04-26 15:08] LABS: CHOLESTEROL 192 MG/DL (< 200); CHOLESTEROL/HDL RATIO 2.7 (3.3-4.4)
--- NOTE | 2017-04-26 15:18 | GI Initial Consult Note ---
History of Present Illness General Date patient seen: Apr 26, 2017 Time patient seen: 10:00 Reason for Hospitalization: Abdominal Pain Referring physician: ELIZABETH BURGOS Reason for Consultation: PANCREATITIS Present Illness HPI The patient is a 46-year-old female with a history of renal failure, diabetes on insulin, and GERD presenting for abdominal pain and fatigue for the past 3 days. Symptoms have been worsening. She states that she has been using her insulin as directed. She states that she has not taken in enough fluids recently. She admits to a 6/10 total body pain described as a dull ache. She does admit to nausea but denies vomiting. She denies other symptoms including fever, dizziness, blurred vision, neck pain or stiffness, shortness of breath, chest pain, diarrhea GI consulted for pancreatitis. HPI as noted above. Pt seen on floor, awake A &Ox4 NAD with no active s/sx of N/V/D. Denies any ETOH, tobacco, drug use. C/ o of upper abdominal pain, tender to touch. Abdominal US shows Possible hepatomegaly. More likely, this is a Bashir's lobe configuration. No acute findings appreciated. She presents today with leukocytosis, anemia most likely due to renal disease, DKA, elevated pancreatic enzymes and LFTs. EGD performed as follows: DATE OF PROCEDURE: 04/22/2015 PROCEDURE: Upper endoscopy with biopsy. SUMMARY OF FINDINGS: 1. Esophagitis. 2. Gastritis, status post biopsy. RECOMMENDATIONS: 1. Reflux measures. 2. PPI and Carafate. Home Meds Active Scripts Mirtazapine* (MIRTAZAPINE*) 15 Mg Tablet, 7.5 MG ORAL BEDTIME for 30 Days, TAB Prov:ZARRABI,MIRALI 12/20/16 Insulin Detemir (LEVEMIR FLEXPEN) 100 Unit/1 Ml Insuln.pen, 24 UNITS SUBQ DAILY for 30 Days, EA Prov:ZARRABI,MIRALI 12/20/16 Insulin Aspart (Novolog Flexpen) 100 Unit/1 Ml Insuln.pen, 8 UNITS SUBQ NOVOTIAC for 30 Days, EA Prov:ZARRABI,MIRALI 12/20/16 Insulin Aspart (Novolog Flexpen) 100 Unit/1 Ml Insuln.pen, 0 UNITS SUBQ BEFORE MEALS AND HS for 30 Days, EA Prov:ZARRABI,MIRALI 12/20/16 Ondansetron Odt* (ZOFRAN ODT*) 4 Mg Tab.rapdis, 4 MG ORAL Q6H Y for Nausea & Vomiting, #20 TAB 0 Refills Prov:KURT AGUIAR M.D. 12/11/16 Valsartan (Diovan) 160 Mg Tablet, 160 MG ORAL BID, #60 TAB Prov:Elizabeth Burgos MD 08/16/16 Clonidine HCl (Clonidine HCl) 0.1 Mg Tablet, 0.1 MG ORAL Q4H Y, #30 TAB Prov:Elizabeth Burgos MD 08/16/16 Amlodipine Besylate (Norvasc) 5 Mg Tab, 10 MG ORAL DAILY, #30 TAB Prov:Elizabeth Burgos MD 08/16/16 Reported Medications Insulin Detemir (LEVEMIR FLEXPEN) 100 Unit/1 Ml Insuln.pen, 18 SUBQ DAILY, #300 UNITS 0 Refills 12/14/16 Ibuprofen* (MOTRIN*) 600 Mg Tablet, 600 MG ORAL Q6H Y for For Pain, #30 TAB 12/11/16 Escitalopram Oxalate* (LEXAPRO*) 20 Mg Tablet, 20 MG ORAL DAILY, TAB 12/11/16 Potassium Chloride (POTASSIUM CHLORIDE) 10 Meq Tab.er.prt, 10 MEQ PO, TAB 12/11/16 Meloxicam* (MELOXICAM*) 15 Mg Tablet, 15 MG PO DAILY, #30 08/13/16 Pregabalin (Lyrica) 50 Mg Capsule, 50 MG PO BID, #60 08/13/16 Pantoprazole* (PROTONIX*) 40 Mg Tablet.dr, 40 MG ORAL DAILY, TAB 03/12/16 Insulin Lispro (HUMALOG) 100 Unit/1 Ml Cartridge, 0 SUBQ, #1 UNITS 0 Refills 04/14/15 Med list reviewed/reconciled: Yes Allergies: Coded Allergies: No Known Allergies (Unverified , 04/24/14) Patient History History Provided By: Patient, Medical Record PMH Narrative Past Medical History: see triage record, DM, GERD, renal disease Pertinent Family History: none Reviewed Nursing Documentation: PMH: Agreed, PSxH: Agreed Nursing Documentation-PMH Past Medical History: No History, Except For Hx Cardiac Problems: No Hx Hypertension: Yes Hx Pacemaker: No Hx Diabetes: Yes Hx Cancer: No Hx Gastrointestinal Problems: Yes - GERD Hx Neurological Problems: No Hx Concentration Difficulty: No Social History: Denies: smoking, alcohol use, drug use, other Review of Systems All Other Systems: limited Physical Exam Vital Signs Date Time Temp Pulse Resp B/P (MAP) Pulse Ox O2 Delivery O2 Flow Rate FiO2 04/25/17 15:15 99.1 102 16 143/78 99 Room Air Sp02 EP Interpretation: reviewed, normal Labs Laboratory Tests Test 04/25/17 16:20 04/25/17 21:00 04/25/17 22:50 04/26/17 07:55 White Blood Count 18.8 K/UL (4.8-10.8) H 14.1 K/UL (4.8-10.8) H Red Blood Count 3.69 M/UL (4.20-5.40) L 3.48 M/UL (4.20-5.40) L Hemoglobin 11.0 G/DL (12.0-16.0) L 10.4 G/DL (12.0-16.0) L Hematocrit 36.8 % (37.0-47.0) L 35.6 % (37.0-47.0) L Mean Corpuscular Volume 100 FL (80-99) H 102 FL (80-99) H Mean Corpuscular Hemoglobin 29.8 PG (27.0-31.0) 29.9 PG (27.0-31.0) Mean Corpuscular Hemoglobin Concent 30.0 G/DL (32.0-36.0) L 29.3 G/DL (32.0-36.0) L Red Cell Distribution Width 15.0 % (11.6-14.8) H 15.8 % (11.6-14.8) H Platelet Count 292 K/UL (150-450) 255 K/UL (150-450) Mean Platelet Volume 7.4 FL (6.5-10.1) 7.4 FL (6.5-10.1) Neutrophils (%) (Auto) 77.8 % (45.0-75.0) H % (45.0-75.0) Lymphocytes (%) (Auto) 16.1 % (20.0-45.0) L % (20.0-45.0) Monocytes (%) (Auto) 5.7 % (1.0-10.0) % (1.0-10.0) Eosinophils (%) (Auto) 0.0 % (0.0-3.0) % (0.0-3.0) Basophils (%) (Auto) 0.6 % (0.0-2.0) % (0.0-2.0) Sodium Level 144 MMOL/L (136-145) 144 MMOL/L (136-145) Potassium Level 4.2 MMOL/L (3.5-5.1) 3.9 MMOL/L (3.5-5.1) Chloride Level 98 MMOL/L (98-107) 102 MMOL/L (98-107) Carbon Dioxide Level 19 MMOL/L (21-32) L 16 MMOL/L (21-32) L Anion Gap 27 mmol/L (5-15) H 27 mmol/L (5-15) H Blood Urea Nitrogen 52 mg/dL (7-18) H 51 mg/dL (7-18) H Creatinine 3.0 MG/DL (0.55-1.30) H 3.0 MG/DL (0.55-1.30) H Estimat Glomerular Filtration Rate 20.4 mL/min (>60) 20.4 mL/min (>60) Glucose Level 218 MG/DL (74-106) H 715 MG/DL (74-106) #*H 443 MG/DL (74-106) #H Calcium Level 10.1 MG/DL (8.5-10.1) 8.4 MG/DL (8.5-10.1) L Magnesium Level 2.5 MG/DL (1.8-2.4) H Total Bilirubin 0.6 MG/DL (0.2-1.0) 0.6 MG/DL (0.2-1.0) Aspartate Amino Transf (AST/SGOT) 66 U/L (15-37) H 36 U/L (15-37) Alanine Aminotransferase (ALT/SGPT) 108 U/L (12-78) H 88 U/L (12-78) H Alkaline Phosphatase 161 U/L (46-116) H 124 U/L (46-116) H Total Protein 7.5 G/DL (6.4-8.2) 6.9 G/DL (6.4-8.2) Albumin 3.7 G/DL (3.4-5.0) 3.2 G/DL (3.4-5.0) L Globulin 3.8 g/dL 3.7 g/dL Albumin/Globulin Ratio 1.0 (1.0-2.7) 0.9 (1.0-2.7) L Lipase 2589 U/L (73-393) H 4320 U/L (73-393) H Acetone Level Positive-large (NEGATIVE) Urine Color Yellow Urine Appearance Very cloudy Urine pH 5 (4.5-8.0) Urine Specific [place] 1.025 (1.005-1.035) Urine Protein 2+ (NEGATIVE) H Urine Glucose (UA) 4+ (NEGATIVE) H Urine Ketones 4+ (NEGATIVE) H Urine Occult Blood 4+ (NEGATIVE) H Urine Nitrite Positive (NEGATIVE) H Urine Bilirubin Negative (NEGATIVE) Urine Urobilinogen Normal MG/DL (0.0-1.0) Urine Leukocyte Esterase 3+ (NEGATIVE) H Urine RBC 5-10 /HPF (0 - 2) H Urine WBC 10-15 /HPF (0 - 2) H Urine Squamous Epithelial Cells Many /LPF (NONE/OCC) H Urine Bacteria Many /HPF (NONE) H Urine Yeast Moderate /HPF (NONE) H Urine HCG, Qualitative Negative Differential Total Cells Counted 100 Neutrophils % (Manual) 91 % (45-75) H Lymphocytes % (Manual) 9 % (20-45) L Monocytes % (Manual) 0 % (1-10) L Eosinophils % (Manual) 0 % (0-3) Basophils % (Manual) 0 % (0-2) Band Neutrophils 0 % (0-8) Platelet Estimate Adequate Platelet Morphology Normal Prothrombin Time 10.7 SEC (9.30-11.50) Prothromb Time International Ratio 1.0 (0.9-1.1) Activated Partial Thromboplast Time 22 SEC (23-33) L Hemoglobin A1c 12.1 % (4.3-6.0) H Triglycerides Level Pending Cholesterol Level Pending LDL Cholesterol Pending HDL Cholesterol Pending Cholesterol/HDL Ratio Pending Amylase Level 1083 U/L (25-115) *H Thyroid Stimulating Hormone (TSH) 2.035 uiU/mL (0.360-3.740) General Appearance: well appearing, no apparent distress, alert Head: normocephalic EENT: PERRL/EOMI, normal ENT inspection Neck: supple Respiratory: normal breath sounds, no respiratory distress Cardiovascular: normal rate Gastrointestinal: normal inspection, non tender, soft, normal bowel sounds, non -distended Rectal: deferred Genitourinary: no CVA tenderness Musculoskeletal: normal inspection, back normal Neurologic: normal inspection, alert, oriented x3, responsive Psychiatric: normal inspection, judgement/insight normal, memory normal Skin: normal inspection, normal color, no rash, warm/dry, palpation normal, well hydrated Lymphatic: normal inspection, no adenopathy Current Medications Current Medications Medications (Trade) Dose Ordered Sig/Lizbeth Route PRN Reason Start Time Stop Time Status Last Admin Dose Admin Acetaminophen (Tylenol) 650 mg Q4H PRN ORAL fever 04/26/17 11:30 05/25/17 19:29 Al Hydroxide/Mg Hydroxide (Mylanta II) 30 ml Q6H PRN ORAL dyspepsia 04/26/17 13:30 05/25/17 19:29 Amlodipine Besylate (Norvasc) 10 mg DAILY ORAL 04/26/17 10:45 05/26/17 10:44 04/26/17 11:32 Ceftriaxone Sodium 1 gm/ Dextrose 55 ml @ 110 mls/hr Q24H IVPB 04/26/17 15:00 05/03/17 14:59 UNV Clonidine HCl (Catapres) 0.1 mg Q4H PRN ORAL sbp > 160 04/26/17 11:30 05/25/17 19:29 Clonidine HCl (Catapres) 0.1 mg Q4H PRN ORAL SBP > 160 04/26/17 14:15 05/26/17 14:14 Dextrose (Dextrose 50%) STAT PRN IV Hypoglycemia 04/26/17 19:30 05/25/17 19:29 Dextrose (Dextrose 50%) STAT PRN IV Hypoglycemia 04/26/17 19:30 05/25/17 19:29 Diphenhydramine HCl (Benadryl) 25 mg Q6H PRN ORAL Itching/Pruritis 04/26/17 13:30 05/25/17 19:29 Heparin Sodium (Porcine) (Heparin 5000 units/ml) 5,000 units EVERY 12 HOURS SUBQ 04/26/17 10:45 05/25/17 10:44 04/26/17 11:34 Hydromorphone HCl (Dilaudid) 1 mg Q4H PRN IVP For Pain 04/26/17 10:30 05/03/17 10:29 04/26/17 11:49 Insulin Aspart (NovoLOG) BEFORE MEALS AND HS SUBQ 04/26/17 11:30 05/25/17 20:59 04/26/17 11:38 Insulin Detemir (Levemir) 10 units DAILY SUBQ 04/26/17 11:00 05/26/17 10:59 04/26/17 11:36 Nitroglycerin (Ntg) 0.4 mg Q 5MINS PRN SL Prn Chest Pain 04/26/17 09:45 05/25/17 19:29 Ondansetron HCl (Zofran) 4 mg Q6H PRN IVP Nausea & Vomiting 04/26/17 13:30 05/25/17 19:29 Pantoprazole (Protonix) 40 mg DAILY ORAL 04/26/17 14:30 05/26/17 14:29 Polyethylene Glycol (Miralax) 17 gm HSPRN PRN ORAL Constipation 04/26/17 19:30 05/25/17 19:29 Pregabalin (Lyrica) 50 mg BID ORAL 04/26/17 10:45 05/26/17 10:44 04/26/17 11:33 Sodium Chloride 1,000 ml @ 125 mls/hr Q8H IV 04/27/17 11:00 05/27/17 10:59 04/26/17 14:54 Temazepam (Restoril) 15 mg HSPRN PRN ORAL Insomnia 04/26/17 19:30 05/02/17 19:29 GI: Plan Problems: (1) Diabetic ketoacidosis, type I (2) GERD (gastroesophageal reflux disease) (3) Pancreatitis (4) Esophagitis (5) Anemia (6) Diabetes (7) Dehydration (8) Hypoalbuminemia Plan abdominal U/S noted >> unremarkable elevated lipase >> 4320 anemia 2/2 renal disease pancreatitis most likely due to hypertriglyceridemia given history of DM >> fu lipid panel maintain NPO + IVFs, ice chips okay adv diet as tolerated DM mgmt follow pancreatic enzymes prn transfusions ppi fu labs Discussed with Dr. Patel. Thank you for this patient referral, we will follow. Aguiar,Venus Eladio N.P. Apr 26, 2017 15:18
[2017-04-26] MEDS ORDERED: Miralax 17gm pkt ORAL PRN (19:30)
[2017-04-27] VITALS (14 sets, daily range): BP systolic 106–152; BP diastolic 61–84
--- NOTE | 2017-04-27 02:15 | History and Physical Report ---
DATE OF ADMISSION: 04/25/2017 CHIEF COMPLAINT: Abdominal pain. HISTORY OF PRESENT ILLNESS: This is a 46-year-old female with past medical history significant for diabetes type 1, insulin dependent; history of chronic kidney disease; hypertension; major depression; diabetic gastroparesis with acid reflux; and history of multiple DKA admissions, who presented to the hospital complaining about abdominal pain. The patient stated that she has been having abdominal pain and fatigueness for the past three days, progressive worsening, and she has been using her insulin as directed, but her status is not improving. She was not taking enough fluids. The pain is of 6/10 intensity and achy pain, associated with some nausea, but no vomiting. Denies any fever or chills. Denies any dizziness. Denies any neck pain. Denies any diarrhea. Denies any sick contacts. Shortly after initial evaluation in the emergency, the patient was admitted to the hospital with acute kidney injury and chronic kidney disease, possibly due to the pancreatitis. Shortly after initial evaluation, the patient was admitted to ICU with DKA as well as acute kidney injury. PAST MEDICAL HISTORY/PAST SURGICAL HISTORY: As above, history of diabetes type 1 with multiple recurrent DKA admissions, hypertension, major depression, diabetic gastroparesis, history of GERD, and chronic kidney disease. MEDICATIONS: Medications at home significant for Norvasc, Lexapro, Levemir, meloxicam, Protonix, Lyrica, and Diovan. ALLERGIES: No known drug allergies. 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 Denies any tobacco or substance abuse. FAMILY HISTORY: Noncontributory. REVIEW OF SYSTEMS: Mostly as above. Denies any dysuria, frequency, or hematuria. Complained about nausea. No vomiting. Denies any hemoptysis or hematochezia. Denies any suicidal or homicidal ideation. Denies any loss of consciousness. Complained about depression. Denies any double vision. Denies any seizure activity. Denies any bowel or urinary incontinence. PHYSICAL EXAMINATION: VITAL SIGNS: On admission, temperature 99.1, pulse of 102, respirations 16, and blood pressure 143/78. GENERAL: The patient awake, responsive, no acute distress. HEAD AND NECK: Pupils are equal and reactive to light. Anicteric. Neck was supple. No JVD. LUNGS: Good air entry. No wheezes or rales. HEART: S1 and S2. Regular rhythm. No gallops. ABDOMEN: Soft. General tenderness. No rebound tenderness. No fluid shift. EXTREMITIES: No cyanosis, clubbing, or edema. NEUROLOGIC: Cranial nerves II through XII are grossly intact. Motor is 5/5 in all extremities. Gait is intact. RECTAL: Refused and deferred. GENITOURINARY: Refused and deferred. LABORATORY AND DIAGNOSTIC DATA: Laboratory on admission, WBC of 8.8, hemoglobin 11, hematocrit 36, and platelets 292. The patient's sodium is 144, potassium 4.2, chloride 98, bicarbonate 19, BUN 52, creatinine 3.0, GFR 20, and glucose level is 218, repeat one is 715. Magnesium is 2.5. AST of 66, ALT of 108, and alkaline phosphatase is 161. TSH is 2.035. Lipase is 2589. Amylase is 1083. is positive. Urinalysis is +1 nitrite, +3 leukocytes, moderate yeast plus bacteria. PT of 10, INR 1.0, and PTT of 22. Abdominal ultrasound noted possible hepatomegaly, most likely there is Bashir's lobe configuration, no acute finding appreciated, right renal cyst, gallbladder is unremarkable, a cyst was noted in the right kidney measured 1 cm, and no hydronephrosis. ASSESSMENT: 1. Acute abdominal pain associated with nausea and vomiting, possible due to the pancreatitis. 2. Metabolic acidosis. 3. Diabetic ketoacidosis. 4. Diabetes type 1. 5. Hypertension. 6. Acute kidney injury on chronic renal insufficiency. 7. Severe dehydration and hypovolemia. 8. Diabetic gastroparesis. 9. Gastroesophageal reflux disease. 10. Major depression. 11. Anemia. PLAN: Admit the patient to ICU. We will follow up with Dr. Paredes, Pulmonary and Critical care and Dr. Hayes from Endocrine and Dr. Kulwinder Marie from Nephrology. We will follow up with Dr. Fraga from Gastroenterology, and monitor laboratory closely and IV hydration. We will advance the diet from clear liquids if patient tolerated pain medications and DKA protocol. Aries Hardin M.D. DR: Dominic JOB#: [id number] CC:
[2017-04-27 05:44] LABS: BASOPHILS % (AUTO) 0.5 % (0.0-2.0); EOSINOPHILS % (AUTO) 0.4 % (0.0-3.0); LYMPHOCYTES % (AUTO) 17.9 % (20.0-45.0); MEAN CORPUSCULAR HEMOGLOBIN 31.9 PG (27.0-31.0); MEAN CORPUSCULAR VOLUME 96 FL (80-99); MEAN PLATELET VOLUME 7.6 FL (6.5-10.1); MONOCYTES % (AUTO) 5.7 % (1.0-10.0); NEUTROPHILS % (AUTO) 75.5 % (45.0-75.0); PLATELET COUNT 185 K/UL (150-450); RED BLOOD COUNT 3.04 M/UL (4.20-5.40); RED CELL DISTRIBUTION WIDTH 15.6 % (11.6-14.8)
[2017-04-27 05:55] LABS: LIPASE 4418 U/L (73-393)
[2017-04-27] MEDS: NovoLOG Insulin Flexpen SUBQ SCH ×7 (06:29→20:34)
[2017-04-27] MEDS: HYDROmorphone 1mg/ml Carpuject IVP PRN ×2 (06:41→17:09)
--- NOTE | 2017-04-27 06:46 | Pulmonolgy Critical Care Note ---
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, renal Discussed with: nurses, consultants, rn case manager hospicemanager green - Objective Last 24 Hour Vital Signs Date Time Temp Pulse Resp B/P (MAP) Pulse Ox O2 Delivery O2 Flow Rate FiO2 04/27/17 06:00 98.2 92 146/75 04/27/17 05:00 98.5 87 126/63 04/27/17 04:00 97.7 95 145/80 04/27/17 03:00 97.3 94 128/68 04/27/17 02:00 97.6 87 114/64 04/27/17 01:00 96.7 99 26 107/61 100 2.0 04/27/17 00:00 97.7 85 25 106/61 100 2.0 04/26/17 23:00 97.8 85 16 116/64 100 2.0 04/26/17 22:00 97.3 93 18 130/70 100 2.0 04/26/17 21:00 97.9 82 22 128/64 100 Nasal Cannula 2.0 04/26/17 20:00 97.7 90 20 132/69 100 Nasal Cannula 2.0 04/26/17 19:27 88 04/26/17 19:05 100 Nasal Cannula 2.0 28 04/26/17 19:05 Nasal Cannula 2.0 28 04/26/17 19:00 84 16 114/61 100 Room Air 04/26/17 18:00 85 16 114/61 100 Room Air 04/26/17 17:00 92 21 132/58 97 Room Air 04/26/17 16:00 97.8 90 20 148/60 99 Room Air 04/26/17 15:00 98 21 132/58 97 Room Air 04/26/17 14:00 92 20 113/57 100 Room Air 04/26/17 13:00 94 21 114/55 100 Room Air 04/26/17 12:00 98.0 90 17 115/46 95 Room Air 04/26/17 11:32 96 140/62 04/26/17 11:00 88 21 124/42 100 Room Air 04/26/17 10:00 88 22 124/42 100 Room Air 04/26/17 09:00 83 22 114/49 100 Room Air 04/26/17 08:00 98.0 83 17 128/61 96 Room Air Status: awake Condition: critical HEENT: atraumatic, normocephalic Lungs: clear Heart: HR/BP stable Abdomen: soft, active bowel sounds Extremities: no C/C/E, edema Micro: Microbiology Date/Time Source Procedure Growth Status 04/25/17 21:00 Urine,Clean Catch Urine Culture - Preliminary Resulted Accucheck: 199 Critical Care - Subjective ROS Limited/Unobtainable: Yes ICU Day: 2 Condition: critical EKG Rhythm: Sinus Rhythm Sputum Amount: None Fluids: NS 125 cc/hour Drips: Insuline drip CXR: SANTO Labs: Laboratory Tests Test 04/26/17 07:55 04/27/17 04:50 White Blood Count 14.1 K/UL (4.8-10.8) H 7.0 K/UL (4.8-10.8) # Red Blood Count 3.48 M/UL (4.20-5.40) L 3.04 M/UL (4.20-5.40) L Hemoglobin 10.4 G/DL (12.0-16.0) L 9.7 G/DL (12.0-16.0) L Hematocrit 35.6 % (37.0-47.0) L 29.3 % (37.0-47.0) L Mean Corpuscular Volume 102 FL (80-99) H 96 FL (80-99) Mean Corpuscular Hemoglobin 29.9 PG (27.0-31.0) 31.9 PG (27.0-31.0) H Mean Corpuscular Hemoglobin Concent 29.3 G/DL (32.0-36.0) L 33.0 G/DL (32.0-36.0) Red Cell Distribution Width 15.8 % (11.6-14.8) H 15.6 % (11.6-14.8) H Platelet Count 255 K/UL (150-450) 185 K/UL (150-450) Mean Platelet Volume 7.4 FL (6.5-10.1) 7.6 FL (6.5-10.1) Neutrophils (%) (Auto) % (45.0-75.0) 75.5 % (45.0-75.0) H Lymphocytes (%) (Auto) % (20.0-45.0) 17.9 % (20.0-45.0) L Monocytes (%) (Auto) % (1.0-10.0) 5.7 % (1.0-10.0) Eosinophils (%) (Auto) % (0.0-3.0) 0.4 % (0.0-3.0) Basophils (%) (Auto) % (0.0-2.0) 0.5 % (0.0-2.0) Differential Total Cells Counted 100 Neutrophils % (Manual) 91 % (45-75) H Lymphocytes % (Manual) 9 % (20-45) L Monocytes % (Manual) 0 % (1-10) L Eosinophils % (Manual) 0 % (0-3) Basophils % (Manual) 0 % (0-2) Band Neutrophils 0 % (0-8) Platelet Estimate Adequate Platelet Morphology Normal Prothrombin Time 10.7 SEC (9.30-11.50) Prothromb Time International Ratio 1.0 (0.9-1.1) Activated Partial Thromboplast Time 22 SEC (23-33) L Sodium Level 144 MMOL/L (136-145) Pending Potassium Level 3.9 MMOL/L (3.5-5.1) Pending Chloride Level 102 MMOL/L (98-107) Pending Carbon Dioxide Level 16 MMOL/L (21-32) L Pending Anion Gap 27 mmol/L (5-15) H Blood Urea Nitrogen 51 mg/dL (7-18) H Pending Creatinine 3.0 MG/DL (0.55-1.30) H Pending Estimat Glomerular Filtration Rate 20.4 mL/min (>60) Pending Glucose Level 443 MG/DL (74-106) #H Pending Hemoglobin A1c 12.1 % (4.3-6.0) H Calcium Level 8.4 MG/DL (8.5-10.1) L Pending Total Bilirubin 0.6 MG/DL (0.2-1.0) Pending Aspartate Amino Transf (AST/SGOT) 36 U/L (15-37) Pending Alanine Aminotransferase (ALT/SGPT) 88 U/L (12-78) H Pending Alkaline Phosphatase 124 U/L (46-116) H Pending Total Protein 6.9 G/DL (6.4-8.2) Pending Albumin 3.2 G/DL (3.4-5.0) L Pending Globulin 3.7 g/dL Pending Albumin/Globulin Ratio 0.9 (1.0-2.7) L Triglycerides Level 139 MG/DL (0-200) Cholesterol Level 192 MG/DL (< 200) LDL Cholesterol 100 mg/dL (<100) HDL Cholesterol 70 MG/DL (40-60) H Cholesterol/HDL Ratio 2.7 (3.3-4.4) L Amylase Level 1083 U/L (25-115) *H Lipase 4320 U/L (73-393) H 4418 U/L (73-393) H Thyroid Stimulating Hormone (TSH) 2.035 uiU/mL (0.360-3.740) Phosphorus Level Pending Magnesium Level Pending Ammonia Pending VANESSA SAGASTUME Apr 27, 2017 06:46
[2017-04-27 08:10] LABS: AMMONIA 30 umol/L (11.2-31.7)
[2017-04-27 08:20] LABS: ALANINE AMINOTRANSFERASE 82 U/L (12-78); ALBUMIN/GLOBULIN RATIO 0.8 (1.0-2.7); ANION GAP 13 mmol/L (5-15); ASPARTATE AMINO TRANSFERASE 30 U/L (15-37); CARBON DIOXIDE 25 MMOL/L (21-32); CHLORIDE 109 MMOL/L (98-107); CREATININE 1.9 MG/DL (0.55-1.30); GLOMERULAR FILTRATION RATE 34.7 mL/min (>60); MAGNESIUM 1.7 MG/DL (1.8-2.4); PHOSPHORUS 2.1 MG/DL (2.5-4.9); POTASSIUM 3.9 MMOL/L (3.5-5.1); SODIUM 147 MMOL/L (136-145); TOTAL PROTEIN 6.1 G/DL (6.4-8.2)
[2017-04-27] MEDS: Heparin 5000 units/ml inj SUBQ SCH ×3 (08:35→20:43)
[2017-04-27] MEDS: Lyrica 50mg cap ORAL SCH ×2 (08:35→18:41)
[2017-04-27] MEDS ORDERED: Levemir Flexpen SUBQ SCH (09:00)
[2017-04-27 09:07] LABS: ABG PCO2 59.9 mmHg (35.0-45.0)
[2017-04-27 09:08] LABS: ABG ALLEN TEST POSITIVE; ABG BASE EXCESS 2.5
--- NOTE | 2017-04-27 11:20 | General Progress Note ---
Assessment/Plan Problem List: (1) Diabetic ketoacidosis, type I ICD Codes: E10.10 - Type 1 diabetes mellituswith ketoacidosis without coma SNOMED: 739028051 (2) Anemia ICD Codes: D64.9 - Anemia, unspecified SNOMED: 208379651 (3) Pancreatitis ICD Codes: K85.90 - Acute pancreatitis without necrosis or infection, unspecified SNOMED: 30911273 Qualifiers: Qualified Codes: K85.90 - Acute pancreatitis without necrosis or infection, unspecified Assessment/Plan ct drug screen pain control fu labs Subjective ROS Limited/Unobtainable: Yes Allergies: Coded Allergies: No Known Allergies (Unverified , 04/24/14) Subjective abd pain Objective Last 24 Hour Vital Signs Date Time Temp Pulse Resp B/P (MAP) Pulse Ox O2 Delivery O2 Flow Rate FiO2 04/27/17 10:00 81 30 111/63 100 Nasal Cannula 2.0 04/27/17 09:00 78 20 117/63 99 Nasal Cannula 2.0 04/27/17 08:36 86 111/68 04/27/17 08:00 98.1 81 19 109/63 100 Nasal Cannula 2.0 04/27/17 08:00 81 04/27/17 07:11 97.9 04/27/17 07:00 97.9 86 132/68 04/27/17 07:00 100 Nasal Cannula 2.0 28 04/27/17 07:00 Nasal Cannula 2.0 28 04/27/17 06:00 98.2 92 146/75 04/27/17 05:00 98.5 87 126/63 04/27/17 04:00 97.7 95 145/80 04/27/17 03:00 97.3 94 128/68 04/27/17 02:00 97.6 87 114/64 04/27/17 01:00 96.7 99 26 107/61 100 2.0 04/27/17 00:00 97.7 85 25 106/61 100 2.0 04/26/17 23:00 97.8 85 16 116/64 100 2.0 04/26/17 22:00 97.3 93 18 130/70 100 2.0 04/26/17 21:00 97.9 82 22 128/64 100 Nasal Cannula 2.0 04/26/17 20:00 97.7 90 20 132/69 100 Nasal Cannula 2.0 04/26/17 19:27 88 04/26/17 19:05 100 Nasal Cannula 2.0 28 04/26/17 19:05 Nasal Cannula 2.0 28 04/26/17 19:00 84 16 114/61 100 Room Air 04/26/17 18:00 85 16 114/61 100 Room Air 04/26/17 17:00 92 21 132/58 97 Room Air 04/26/17 16:00 97.8 90 20 148/60 99 Room Air 04/26/17 15:00 98 21 132/58 97 Room Air 04/26/17 14:00 92 20 113/57 100 Room Air 04/26/17 13:00 94 21 114/55 100 Room Air 04/26/17 12:00 98.0 90 17 115/46 95 Room Air 04/26/17 11:32 96 140/62 Intake and Output 04/27/17 04/28/17 19:00 07:00 Intake Total 525 ml Output Total 0 ml Balance 525 ml Intake Oral 300 ml IV Total 225 ml Output Urine Total 0 ml Laboratory Tests 04/27/17 04:50: White Blood Count 7.0#, Red Blood Count 3.04L, Hemoglobin 9.7L, Hematocrit 29.3L , Mean Corpuscular Volume 96, Mean Corpuscular Hemoglobin 31.9H, Mean Corpuscular Hemoglobin Concent 33.0, Red Cell Distribution Width 15.6H, Platelet Count 185, Mean Platelet Volume 7.6, Neutrophils (%) (Auto) 75.5H, Lymphocytes (%) (Auto) 17.9L, Monocytes (%) (Auto) 5.7, Eosinophils (%) (Auto) 0.4, Basophils (%) (Auto) 0.5, Sodium Level 147H, Potassium Level 3.9, Chloride Level 109H, Carbon Dioxide Level 25, Anion Gap 13, Blood Urea Nitrogen 33H, Creatinine 1.9H, Estimat Glomerular Filtration Rate 34.7, Glucose Level 176#H, Calcium Level 8.0L, Phosphorus Level 2.1L, Magnesium Level 1.7L, Total Bilirubin 0.3, Aspartate Amino Transf (AST/SGOT) 30, Alanine Aminotransferase ( ALT/SGPT) 82H, Alkaline Phosphatase 92, Ammonia 30, Total Protein 6.1L, Albumin 2.8L, Globulin 3.3, Albumin/Globulin Ratio 0.8L, Lipase 4418H 04/27/17 09:00: Arterial Blood pH 7.310L, Arterial Blood Partial Pressure CO2 59.9*H, Arterial Blood Partial Pressure O2 93.5, Arterial Blood HCO3 29.7H, Arterial Blood Oxygen Saturation 96.3, Arterial Blood Base Excess 2.5, Pierre Test Positive Height (Feet): 5 Height (Inches): 4.00 Weight (Pounds): 129 General Appearance: no apparent distress EENT: normal ENT inspection Neck: supple Cardiovascular: normal rate Respiratory/Chest: decreased breath sounds Abdomen: normal bowel sounds, soft, tender Extremities: non-tender JALYN BANERJEE Apr 27, 2017 11:20
[2017-04-27] MEDS ORDERED: Nitroglycerin Subl 0.4mg tab SL PRN (12:00)
[2017-04-27] MEDS ORDERED: Mylanta II UD 30ml ORAL PRN (13:30)
--- NOTE | 2017-04-27 14:40 | Internal Med Progress Note ---
Subjective Date of Service: Apr 27, 2017 Physician Name Christos Jacobsen Attending Physician Aries Hardin MD Current Medications Medications (Trade) Dose Ordered Sig/Lizbeth Route PRN Reason Start Time Stop Time Status Last Admin Dose Admin Acetaminophen (Tylenol) 650 mg Q4H PRN ORAL fever 04/27/17 15:30 05/25/17 19:29 Al Hydroxide/Mg Hydroxide (Mylanta II) 30 ml Q6H PRN ORAL dyspepsia 04/27/17 13:30 05/25/17 19:29 Amlodipine Besylate (Norvasc) 10 mg DAILY ORAL 04/28/17 09:00 05/26/17 10:44 Ceftriaxone Sodium 1 gm/ Dextrose 55 ml @ 110 mls/hr Q24H IVPB 04/27/17 16:00 05/03/17 15:59 Clonidine HCl (Catapres) 0.1 mg Q4H PRN ORAL sbp > 160 04/27/17 15:30 05/25/17 19:29 Dextrose (Dextrose 50%) STAT PRN IV Hypoglycemia 04/28/17 07:45 05/27/17 07:44 Diphenhydramine HCl (Benadryl) 25 mg Q6H PRN ORAL Itching/Pruritis 04/27/17 13:30 05/25/17 19:29 Heparin Sodium (Porcine) (Heparin 5000 units/ml) 5,000 units EVERY 12 HOURS SUBQ 04/27/17 21:00 05/25/17 10:44 Hydromorphone HCl (Dilaudid) 1 mg Q4H PRN IVP For Pain 04/27/17 14:30 05/03/17 10:29 Insulin Aspart (NovoLOG) BEFORE MEALS AND HS SUBQ 04/27/17 16:30 05/25/17 20:59 Insulin Aspart (NovoLOG) 4 units NOVOTIAC SUBQ 04/27/17 16:50 05/27/17 08:14 Insulin Detemir (Levemir) 14 units DAILY SUBQ 04/28/17 09:00 05/27/17 08:59 Nitroglycerin (Ntg) 0.4 mg Q 5MINS PRN SL Prn Chest Pain 04/27/17 12:00 05/25/17 19:29 Ondansetron HCl (Zofran) 4 mg Q6H PRN IVP Nausea & Vomiting 04/27/17 13:30 05/25/17 19:29 Pantoprazole (Protonix) 40 mg DAILY ORAL 04/28/17 09:00 05/26/17 14:29 Polyethylene Glycol (Miralax) 17 gm HSPRN PRN ORAL Constipation 04/27/17 19:30 05/25/17 19:29 Pregabalin (Lyrica) 50 mg BID ORAL 04/27/17 18:00 05/26/17 10:44 Sodium Chloride 1,000 ml @ 75 mls/hr [id number] IV 04/27/17 12:00 05/01/17 06:59 04/27/17 13:18 Temazepam (Restoril) 15 mg HSPRN PRN ORAL Insomnia 04/27/17 19:30 05/02/17 19:29 Allergies: Coded Allergies: No Known Allergies (Unverified , 04/24/14) ROS Limited/Unobtainable: No Constitutional: Reports: no symptoms HEENT: Reports: no symptoms Cardiovascular: Reports: no symptoms Respiratory: Reports: no symptoms Gastrointestinal/Abdominal: Reports: abdominal pain Genitourinary: Reports: no symptoms Neurologic/Psychiatric: Reports: no symptoms Subjective 46 YO F admitted with abdominal pain, now pancreatitis. Cover for Int Med-Dr Hardin. Objective Last Vital Signs Date Time Temp Pulse Resp B/P (MAP) Pulse Ox O2 Delivery O2 Flow Rate FiO2 04/27/17 10:00 81 30 111/63 100 Nasal Cannula 2.0 04/27/17 08:00 98.1 04/27/17 07:00 28 General Appearance: WD/WN, no apparent distress, alert EENT: PERRL/EOMI, normal ENT inspection, TMs normal Neck: non-tender, normal alignment, supple Cardiovascular: normal peripheral pulses, normal rate, regular rhythm, no gallop/murmur, no JVD Respiratory/Chest: chest wall non-tender, lungs clear, normal breath sounds, no respiratory distress, no accessory muscle use Abdomen: no organomegaly, no mass, decreased bowel sounds, tender Extremities: normal range of motion Neurologic: parachute mender II-XII grossly normal, no motor/sensory deficits Skin: normal pigmentation, warm/dry Laboratory Tests Test 04/27/17 04:50 04/27/17 09:00 04/27/17 12:45 White Blood Count 7.0 K/UL (4.8-10.8) # Red Blood Count 3.04 M/UL (4.20-5.40) L Hemoglobin 9.7 G/DL (12.0-16.0) L Hematocrit 29.3 % (37.0-47.0) L Mean Corpuscular Volume 96 FL (80-99) Mean Corpuscular Hemoglobin 31.9 PG (27.0-31.0) H Mean Corpuscular Hemoglobin Concent 33.0 G/DL (32.0-36.0) Red Cell Distribution Width 15.6 % (11.6-14.8) H Platelet Count 185 K/UL (150-450) Mean Platelet Volume 7.6 FL (6.5-10.1) Neutrophils (%) (Auto) 75.5 % (45.0-75.0) H Lymphocytes (%) (Auto) 17.9 % (20.0-45.0) L Monocytes (%) (Auto) 5.7 % (1.0-10.0) Eosinophils (%) (Auto) 0.4 % (0.0-3.0) Basophils (%) (Auto) 0.5 % (0.0-2.0) Sodium Level 147 MMOL/L (136-145) H Potassium Level 3.9 MMOL/L (3.5-5.1) Chloride Level 109 MMOL/L (98-107) H Carbon Dioxide Level 25 MMOL/L (21-32) Anion Gap 13 mmol/L (5-15) Blood Urea Nitrogen 33 mg/dL (7-18) H Creatinine 1.9 MG/DL (0.55-1.30) H Estimat Glomerular Filtration Rate 34.7 mL/min (>60) Glucose Level 176 MG/DL (74-106) #H Calcium Level 8.0 MG/DL (8.5-10.1) L Phosphorus Level 2.1 MG/DL (2.5-4.9) L Magnesium Level 1.7 MG/DL (1.8-2.4) L Total Bilirubin 0.3 MG/DL (0.2-1.0) Aspartate Amino Transf (AST/SGOT) 30 U/L (15-37) Alanine Aminotransferase (ALT/SGPT) 82 U/L (12-78) H Alkaline Phosphatase 92 U/L (46-116) Ammonia 30 umol/L (11.2-31.7) Total Protein 6.1 G/DL (6.4-8.2) L Albumin 2.8 G/DL (3.4-5.0) L Globulin 3.3 g/dL Albumin/Globulin Ratio 0.8 (1.0-2.7) L Lipase 4418 U/L (73-393) H Arterial Blood pH 7.310 (7.350-7.450) Arterial Blood Partial Pressure CO2 59.9 mmHg (35.0-45.0) *H Arterial Blood Partial Pressure O2 93.5 mmHg (75.0-100.0) Arterial Blood HCO3 29.7 mmol/L (22.0-26.0) H Arterial Blood Oxygen Saturation 96.3 % (92.0-98.0) Arterial Blood Base Excess 2.5 Pierre Test Positive Urine Opiates Screen Negative (NEGATIVE) Urine Barbiturates Screen Negative (NEGATIVE) Phencyclidine (PCP) Screen Negative (NEGATIVE) Urine Amphetamines Screen Negative (NEGATIVE) Urine Benzodiazepines Screen Negative (NEGATIVE) Urine Cocaine Screen Negative (NEGATIVE) Urine Marijuana (THC) Screen Positive (NEGATIVE) H Microbiology Date/Time Source Procedure Growth Status 04/25/17 21:00 Urine,Clean Catch Urine Culture - Preliminary Gram Negative Bacillus 1 Gram Negative Bacillus 2 Resulted Intake and Output 04/27/17 04/28/17 19:00 07:00 Intake Total 600 ml Output Total 0 ml Balance 600 ml Intake Oral 300 ml IV Total 300 ml Output Urine Total 0 ml Assessment/Plan Problem List: (1) Diabetes type 1, uncontrolled Assessment & Plan: Continue levemir and novolog sliding scale. (2) Pancreatitis Assessment & Plan: See GI note. Tolerating soft diet. (3) HTN (hypertension) Assessment & Plan: Continue norvasc (4) Diabetic gastroparesis Assessment & Plan: See GI note. (5) Renal failure (6) Major depression CHRISTOS JACOBSEN Apr 27, 2017 14:40
--- NOTE | 2017-04-27 16:04 | Consultation ---
Consult Note Assessment/Plan Renal consult dictated # [id number] CORNELIUS DENSON Apr 27, 2017 16:04
[2017-04-27] MEDS ORDERED: 1/2 NS 1000ml IV ONE (16:08)
[2017-04-27] MEDS: cefTRIAXone 1 GM in D5W 55 ML IVPB SCH (16:34)
[2017-04-27] MEDS ORDERED: Miralax 17gm pkt ORAL PRN (19:30)
--- NOTE | 2017-04-27 20:15 | Consultation ---
DATE OF CONSULTATION: 04/27/2017 ENDOCRINOLOGY CONSULTATION CONSULTING PHYSICIAN: Judd Hayes M.D. REFERRING PHYSICIAN: Aries Hardin M.D. REASON FOR CONSULTATION: Diabetic ketoacidosis. HISTORY OF PRESENT ILLNESS: The patient is a pleasant 46-year-old female, well known to me since I have been seeing her multiple times at [facility] with repetitive diabetic ketoacidosis. She has history of noncompliance with insulin and multiple admissions. Also, I have been seeing her as an outpatient for the management of type 1 diabetes and she has been nonadherent to her outpatient followups. Multiple attempts were made to put her on insulin pump as an outpatient, but she does not come for followup. The patient presented to the hospital with abdominal pain, nausea, vomiting, and was found to be in diabetic ketoacidosis and pancreatitis. Anion gap was open. She was acidotic, and the lipase was in the 1000. she was started on insulin drip and admitted to the ICU. Currently, she is feeling better. Abdominal pain has improved. PAST MEDICAL HISTORY: 1. Type 1 diabetes with multiple DKA admission. 2. Hypertension. 3. Depression. 4. Gastroparesis. 5. GERD. 6. Chronic kidney disease. MEDICATIONS AT HOME: Levemir and NovoLog. For the rest, refer to the medications reconciliation form. ALLERGIES TO MEDICATIONS: None. SOCIAL HISTORY: The patient lives at home with aunt. 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 No smoking. No alcohol or drug use. FAMILY HISTORY: Noncontributory. REVIEW OF SYSTEMS: A 12-point review of systems was performed, and the pertinent positives and negatives are as mentioned in the history of present illness. LABORATORY VALUES: Labs from today are pending. From yesterday morning, sodium 144, potassium 3.9, chloride 102, bicarbonate 16, anion gap 27, BUN 51, creatinine 3, and glucose of 443. A1c of 12.1. Lipase of 4320. PHYSICAL EXAMINATION: GENERAL: She is awake and alert. VITAL SIGNS: Blood pressure is 132/68, temperature 97.9, heart rate of 86, and respiratory rate of 18. HEENT: Pupils are equal and reactive to light. Sclerae are anicteric. NECK: No JVD . No thyromegaly. No bruit. LUNGS: Clear. HEART: Regular rate and rhythm. ABDOMEN: Positive bowel sounds. Soft. EXTREMITIES: No clubbing, cyanosis, or edema. DIAGNOSES: 1. Diabetic ketoacidosis. 2. Pancreatitis. 3. Acute kidney injury on chronic renal failure. 4. Noncompliance with medications. PLAN: 1. Insulin drip has already converted to subcutaneous insulin. Blood glucose remains within acceptable range. 2. Increase the Levemir to 14 units daily. 3. Add NovoLog 4 units before each meal. 4. Diet has been initiated. 5. Sliding scale insulin for correction. Further management according to ICU team and Dr. Hardin. Thank you, Dr. Hardin, for the courtesy of this consultation. Judd Hayes M.D. DR: RIGO/NARENDRA JOB#: [id number] CC:
[2017-04-28] VITALS: BP 133/80
--- NOTE | 2017-04-28 00:30 | Consultation ---
DATE OF CONSULTATION: 04/27/2017 NEPHROLOGY CONSULTATION CONSULTING PHYSICIAN: Kulwinder Marie M.D. REFERRING PHYSICIAN: Aries Hardin M.D. REASON FOR CONSULTATION: Acute on chronic renal failure. HISTORY OF PRESENT ILLNESS: This is a 46-year-old female with a history of diabetes mellitus. The patient was admitted initially to intensive care unit with symptoms of nausea, vomiting, and diagnosis of pancreatitis. She was also found to have diabetic ketoacidosis. I was asked to see her because of elevation of BUN and creatinine to 51 and 3.0 as of admission. The patient has been getting hydration and the BUN and creatinine have improved to 33 and 1.9 today. The patient has a history of CKD, but she does not know what her baseline is. PAST MEDICAL HISTORY: The patient has had recurrent admissions for diabetic ketoacidosis. She has a history of hypertension, depression, diabetic gastroparesis, and gastroesophageal reflux disease. MEDICATIONS: Reviewed and reconciled in the EMR. ALLERGIES: No known drug allergies. SOCIAL HISTORY: The patient lives at home with her aunt. No history of smoking or alcohol abuse. 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 REVIEW OF SYSTEMS: Asthma as above. PHYSICAL EXAMINATION: GENERAL: The patient is a 46-year-old female, in no acute distress. VITAL SIGNS: Blood pressure 118/62, pulse 77, temperature 97.3, and respiratory rate is 30. HEENT: Some pale conjunctivae. Anicteric sclerae. NECK: Supple. LUNGS: Clear to auscultation. HEART: S1 and S2 without murmurs or rubs. ABDOMEN: Soft. There is some tenderness in the left lower quadrant. EXTREMITIES: No cyanosis or edema. LABORATORY FINDINGS: The CBC shows a WBC of 7000, hematocrit is 29.3, hemoglobin is 9.7, and platelets 185,000. Chemistry panel shows serum sodium 147, potassium 3.9, chloride 109, CO2 25, BUN 33, and creatinine 1.9. Amylase is 1083. Lipase is 4320. UA shows 2+ protein, and 10 to 15 WBCs with many bacteria. Urine culture showed Gram-negatives. ASSESSMENT: This is a 46-year-old female, who was admitted with some abdominal pain, nausea, vomiting, and diagnosed with pancreatitis. She had also acute diabetic ketoacidosis. She has acute on chronic renal failure as a result of prerenal azotemia. Her chronic kidney disease may be related to her diabetes and diabetic nephropathy. She has also had urinary tract infection with Gram-negatives. She is anemic and the question is if this is related to her chronic kidney disease. She may have iron deficiency as well. PLAN: I would continue hydrating the patient. The patient is being followed by Endocrine pharmacy consultant and her insulin will be adjusted. She is on ceftriaxone for urinary tract infection. I would continue the blood pressure medications. I will also check iron panel to make sure the patient is not iron deficient. She may need to be on erythropoietin group home if she is not iron deficient and other cause of anemia is found. The following MIPS (Mer[employer]-based Incentive Payment System) measures were done. 1. Measure #1, perform hemoglobin A1c at least once in 2017. This was ordered. 2. Measure #130, I obtained updated review of the patient's current medications. 3. Measure #374, send report to referring provider. This will be done through EMR. The following improvement activities were done. 4. Implementation of use of specialists' reports back to referring clinician or group to close referral loop and this will be done through EMR. 5. Provide 07/01 access to eligible clinicians or groups, who have a real-time access to the patient's medical record done through EMR. Thank you very much, Dr. Hardin, for this consultation. Kulwinder Marie M.D. DR: ISIDRO JOB#: [id number] CC: KRISTY
[2017-04-28] MEDS: HYDROmorphone 1mg/ml Carpuject IVP PRN ×3 (02:53→17:36)
[2017-04-28 04:00] VITALS: BP 124/70
--- NOTE | 2017-04-28 06:25 | General Progress Note ---
Assessment/Plan Problem List: (1) Diabetic ketoacidosis, type I ICD Codes: E10.10 - Type 1 diabetes mellituswith ketoacidosis without coma SNOMED: 318228993 (2) Anemia ICD Codes: D64.9 - Anemia, unspecified SNOMED: 122503098 (3) Pancreatitis ICD Codes: K85.90 - Acute pancreatitis without necrosis or infection, unspecified SNOMED: 21961044 Qualifiers: Qualified Codes: K85.90 - Acute pancreatitis without necrosis or infection, unspecified Assessment/Plan ct pending drug screen pending pain control fu labs start clears Subjective ROS Limited/Unobtainable: Yes Allergies: Coded Allergies: No Known Allergies (Unverified , 04/24/14) Subjective abd pain Objective Last 24 Hour Vital Signs Date Time Temp Pulse Resp B/P (MAP) Pulse Ox O2 Delivery O2 Flow Rate FiO2 04/28/17 04:00 98.2 82 20 124/70 90 Room Air 04/28/17 03:23 98.4 04/28/17 00:00 98.4 87 20 133/80 96 Room Air 04/27/17 20:00 98.6 98 20 135/84 98 Room Air 04/27/17 19:22 Nasal Cannula 2.0 28 04/27/17 19:22 99 Nasal Cannula 2.0 28 04/27/17 16:00 98.2 82 30 152/78 100 Nasal Cannula 2.0 04/27/17 12:00 97.8 77 30 118/62 100 Nasal Cannula 2.0 04/27/17 10:00 81 30 111/63 100 Nasal Cannula 2.0 04/27/17 09:00 78 20 117/63 99 Nasal Cannula 2.0 04/27/17 08:36 86 111/68 04/27/17 08:00 98.1 81 19 109/63 100 Nasal Cannula 2.0 04/27/17 08:00 81 04/27/17 07:11 97.9 04/27/17 07:00 97.9 86 132/68 04/27/17 07:00 100 Nasal Cannula 2.0 28 04/27/17 07:00 Nasal Cannula 2.0 28 Laboratory Tests 04/27/17 09:00: Arterial Blood pH 7.310L, Arterial Blood Partial Pressure CO2 59.9*H, Arterial Blood Partial Pressure O2 93.5, Arterial Blood HCO3 29.7H, Arterial Blood Oxygen Saturation 96.3, Arterial Blood Base Excess 2.5, Pierre Test Positive 04/27/17 12:45: Urine Opiates Screen Negative, Urine Barbiturates Screen Negative, Phencyclidine (PCP) Screen Negative, Urine Amphetamines Screen Negative, Urine Benzodiazepines Screen Negative, Urine Cocaine Screen Negative, Urine Marijuana (THC) Screen PositiveH Height (Feet): 5 Height (Inches): 4.00 Weight (Pounds): 129 General Appearance: alert EENT: normal ENT inspection Neck: supple Cardiovascular: normal rate Respiratory/Chest: decreased breath sounds Abdomen: soft, hypoactive bowel sounds, tender Extremities: non-tender JALYN BANERJEE Apr 28, 2017 06:25
[2017-04-28] MEDS: NovoLOG Insulin Flexpen SUBQ SCH ×7 (06:30→20:31)
--- NOTE | 2017-04-28 06:59 | General Progress Note ---
Assessment/Plan Problem List: (1) DKA (diabetic ketoacidoses) ICD Codes: E13.10 - Other specified diabetes mellitus with ketoacidosis without coma SNOMED: 33177312, 222453263 (2) Uncontrolled diabetes mellitus ICD Codes: E11.65 - Type 2 diabetes mellitus with hyperglycemia SNOMED: 36418748, 424470822 (3) Pancreatitis ICD Codes: K85.90 - Acute pancreatitis without necrosis or infection, unspecified SNOMED: 40482601 Qualifiers: Qualified Codes: K85.90 - Acute pancreatitis without necrosis or infection, unspecified (4) ARF (acute renal failure) ICD Codes: N17.9 - ARF (acute renal failure) SNOMED: 01510538 Qualifiers: Qualified Codes: N17.9 - Acute kidney failure, unspecified Assessment/Plan NPO for CT abdomen Levemir 14 units daily Novolog 4 units ac tid + SSI discussed with Dr Patel Subjective Allergies: Coded Allergies: No Known Allergies (Unverified , 04/24/14) All Systems: reviewed and negative except above Subjective transferred to [facility] from ICU denies abdominal pain Objective Last 24 Hour Vital Signs Date Time Temp Pulse Resp B/P (MAP) Pulse Ox O2 Delivery O2 Flow Rate FiO2 04/28/17 04:00 98.2 82 20 124/70 90 Room Air 04/28/17 03:23 98.4 04/28/17 00:00 98.4 87 20 133/80 96 Room Air 04/27/17 20:00 98.6 98 20 135/84 98 Room Air 04/27/17 19:22 Nasal Cannula 2.0 28 04/27/17 19:22 99 Nasal Cannula 2.0 28 04/27/17 16:00 98.2 82 30 152/78 100 Nasal Cannula 2.0 04/27/17 12:00 97.8 77 30 118/62 100 Nasal Cannula 2.0 04/27/17 10:00 81 30 111/63 100 Nasal Cannula 2.0 04/27/17 09:00 78 20 117/63 99 Nasal Cannula 2.0 04/27/17 08:36 86 111/68 04/27/17 08:00 98.1 81 19 109/63 100 Nasal Cannula 2.0 04/27/17 08:00 81 04/27/17 07:11 97.9 04/27/17 07:00 97.9 86 132/68 04/27/17 07:00 100 Nasal Cannula 2.0 28 04/27/17 07:00 Nasal Cannula 2.0 28 Laboratory Tests 04/27/17 09:00: Arterial Blood pH 7.310L, Arterial Blood Partial Pressure CO2 59.9*H, Arterial Blood Partial Pressure O2 93.5, Arterial Blood HCO3 29.7H, Arterial Blood Oxygen Saturation 96.3, Arterial Blood Base Excess 2.5, Pierre Test Positive 04/27/17 12:45: Urine Opiates Screen Negative, Urine Barbiturates Screen Negative, Phencyclidine (PCP) Screen Negative, Urine Amphetamines Screen Negative, Urine Benzodiazepines Screen Negative, Urine Cocaine Screen Negative, Urine Marijuana (THC) Screen PositiveH Height (Feet): 5 Height (Inches): 4.00 Weight (Pounds): 129 General Appearance: no apparent distress Neck: normal alignment Cardiovascular: normal rate Respiratory/Chest: lungs clear Abdomen: normal bowel sounds Pelvis: normal external exam Edema: no edema noted Arm (L), no edema noted Arm (R), no edema noted Leg (L), no edema noted Leg (R), no edema noted Pedal (L), no edema noted Pedal (R), no edema noted Generalized Objective Current Medications Medications (Trade) Dose Ordered Sig/Lizbeth Route PRN Reason Start Time Stop Time Status Last Admin Dose Admin Acetaminophen (Tylenol) 650 mg Q4H PRN ORAL fever 04/27/17 15:30 05/25/17 19:29 Al Hydroxide/Mg Hydroxide (Mylanta II) 30 ml Q6H PRN ORAL dyspepsia 04/27/17 13:30 05/25/17 19:29 Amlodipine Besylate (Norvasc) 10 mg DAILY ORAL 04/28/17 09:00 05/26/17 10:44 Ceftriaxone Sodium 1 gm/ Dextrose 55 ml @ 110 mls/hr Q24H IVPB 04/27/17 16:00 05/03/17 15:59 04/27/17 16:34 Clonidine HCl (Catapres) 0.1 mg Q4H PRN ORAL sbp > 160 04/27/17 15:30 05/25/17 19:29 Dextrose (Dextrose 50%) STAT PRN IV Hypoglycemia 04/28/17 07:45 05/27/17 07:44 Diphenhydramine HCl (Benadryl) 25 mg Q6H PRN ORAL Itching/Pruritis 04/27/17 13:30 05/25/17 19:29 Heparin Sodium (Porcine) (Heparin 5000 units/ml) 5,000 units EVERY 12 HOURS SUBQ 04/27/17 21:00 05/25/17 10:44 Hydromorphone HCl (Dilaudid) 1 mg Q4H PRN IVP For Pain 04/27/17 14:30 05/03/17 10:29 04/28/17 02:53 Insulin Aspart (NovoLOG) BEFORE MEALS AND HS SUBQ 04/27/17 16:30 05/25/17 20:59 04/28/17 06:36 Insulin Aspart (NovoLOG) 4 units NOVOTIAC SUBQ 04/27/17 16:50 05/27/17 08:14 Insulin Detemir (Levemir) 14 units DAILY SUBQ 04/28/17 09:00 05/27/17 08:59 Nitroglycerin (Ntg) 0.4 mg Q 5MINS PRN SL Prn Chest Pain 04/27/17 12:00 05/25/17 19:29 Ondansetron HCl (Zofran) 4 mg Q6H PRN IVP Nausea & Vomiting 04/27/17 13:30 05/25/17 19:29 Pantoprazole (Protonix) 40 mg DAILY ORAL 04/28/17 09:00 05/26/17 14:29 Polyethylene Glycol (Miralax) 17 gm HSPRN PRN ORAL Constipation 04/27/17 19:30 05/25/17 19:29 Pregabalin (Lyrica) 50 mg BID ORAL 04/27/17 18:00 05/26/17 10:44 04/27/17 18:41 Sodium Chloride 1,000 ml @ 75 mls/hr [id number] IV 04/27/17 12:00 05/01/17 06:59 04/28/17 02:51 Temazepam (Restoril) 15 mg HSPRN PRN ORAL Insomnia 04/27/17 19:30 05/02/17 19:29 Item Value Date Time Bedside Blood Glucose 322 mg/dl H 04/28/17 0636 Bedside Blood Glucose 118 mg/dl 04/27/17 2034 Bedside Blood Glucose 85 mg/dl 04/27/17 1650 Bedside Blood Glucose 100 mg/dl 04/27/17 1129 Bedside Blood Glucose 199 mg/dl H 04/27/17 0834 IVY SULLIVAN Apr 28, 2017 06:59
[2017-04-28 08:00] VITALS: BP 132/75
[2017-04-28 08:25] LABS: BASOPHILS % (AUTO) 0.4 % (0.0-2.0); EOSINOPHILS % (AUTO) 0.4 % (0.0-3.0); LYMPHOCYTES % (AUTO) 24.8 % (20.0-45.0); MEAN CORPUSCULAR HEMOGLOBIN 31.3 PG (27.0-31.0); MEAN CORPUSCULAR HGB CONC 31.4 G/DL (32.0-36.0); MEAN CORPUSCULAR VOLUME 100 FL (80-99); MEAN PLATELET VOLUME 8.3 FL (6.5-10.1); NEUTROPHILS % (AUTO) 68.4 % (45.0-75.0); PLATELET COUNT 158 K/UL (150-450); RED BLOOD COUNT 2.87 M/UL (4.20-5.40); RED CELL DISTRIBUTION WIDTH 15.4 % (11.6-14.8); WHITE BLOOD COUNT 7.2 K/UL (4.8-10.8)
[2017-04-28 08:34] LABS: ANION GAP 4 mmol/L (5-15); CALCIUM 7.6 MG/DL (8.5-10.1); CARBON DIOXIDE 32 MMOL/L (21-32); CHLORIDE 104 MMOL/L (98-107); CREATININE 1.3 MG/DL (0.55-1.30); GLOMERULAR FILTRATION RATE 53.7 mL/min (>60); POTASSIUM 3.9 MMOL/L (3.5-5.1); SODIUM 140 MMOL/L (136-145)
[2017-04-28 08:49] LABS: ALANINE AMINOTRANSFERASE 54 U/L (12-78); ALBUMIN/GLOBULIN RATIO 0.8 (1.0-2.7); AMYLASE 230 U/L (25-115); ANION GAP 5 mmol/L (5-15); ASPARTATE AMINO TRANSFERASE 32 U/L (15-37); CALCIUM 7.7 MG/DL (8.5-10.1); CARBON DIOXIDE 31 MMOL/L (21-32); CHLORIDE 104 MMOL/L (98-107); CREATININE 1.3 MG/DL (0.55-1.30); CRP QUANT 2.5 mg/dL (0.00-0.90); GLOMERULAR FILTRATION RATE 53.7 mL/min (>60); MAGNESIUM 1.9 MG/DL (1.8-2.4); PHOSPHORUS 1.7 MG/DL (2.5-4.9); POTASSIUM 3.9 MMOL/L (3.5-5.1); SODIUM 140 MMOL/L (136-145)
[2017-04-28 08:58] LABS: IRON 82 ug/dL (50-175); TOTAL IRON BINDING CAPACITY 276 ug/dL (250-450)
[2017-04-28] MEDS: Heparin 5000 units/ml inj SUBQ SCH ×2 (09:00→20:28)
[2017-04-28 09:52] LABS: LIPASE 2074 U/L (73-393)
[2017-04-28 09:58] LABS: ERYTHROCYTE SEDIMENTATION RATE 50 MM/HR (0-20)
[2017-04-28] MEDS: Lyrica 50mg cap ORAL SCH ×2 (10:14→18:07)
--- NOTE | 2017-04-28 11:20 | Diagnostic Imaging Report ---
Indication: Abdominal pain Comparison: None Technique: Contiguous helical CT images through the abdomen and pelvis was performed with oral contrast only. Intravenous contrast was not administered. Axial, coronal and sagittal reconstructions were reformatted. CT Dose: Total DLP: 595 mGycm; Total CTDI volume 12.6 Findings: Lack of intravenous contrast limits evaluation. Abnormalities may be missed. The liver is enlarged in size measuring 20 cm in craniocaudal dimension. The left lobe of the liver is also enlarged extending into the left abdomen. No definite focal lesions are seen in the liver on this limited noncontrast examination. Gallbladder is mildly distended but no radiopaque gallstones are seen. Spleen is normal. Pancreas is normal. Adrenal glands are normal. Kidneys are without hydronephrosis. No urinary tract stones are seen. Urinary bladder is distended. No radiopaque bladder stone seen. There are some mildly dilated loops of proximal small bowel which are filled with oral contrast. Distal small bowel loops appear decompressed. An early small bowel obstruction cannot be entirely excluded. Transition point cannot be seen. Gas and stool seen throughout the colon. Normal appendix. No free fluid or free air. In the pelvis, an IUD is noted within the uterus. A small amount of free fluid is seen in the pelvis which is nonspecific but may be physiologic. Aorta is of normal caliber with mild calcifications. No significant lymphadenopathy. No acute osseous abnormalities. Lung bases demonstrate some hazy groundglass infiltrate in the left lung base. Impression: Hepatomegaly with diffuse fatty infiltration. There are some mildly dilated loops of proximal small bowel with decompressed distal small bowel loops. No definite transition point is seen. Nonetheless, early small bowel obstruction cannot be entirely excluded. Correlate clinically. Normal appendix. Hazy, groundglass infiltrate noted in the left lower lobe lung. Small amount of fluid in the pelvis which may be physiologic. No free air.
[2017-04-28 12:00] VITALS: BP 130/69
[2017-04-28] MEDS: Levemir Flexpen SUBQ SCH (12:43)
--- NOTE | 2017-04-28 13:53 | Internal Med Progress Note ---
Subjective Date of Service: Apr 28, 2017 Physician Name AdrianaChristos Attending Physician Aries Hardin MD Current Medications Medications (Trade) Dose Ordered Sig/Lizbeth Route PRN Reason Start Time Stop Time Status Last Admin Dose Admin Acetaminophen (Tylenol) 650 mg Q4H PRN ORAL fever 04/27/17 15:30 05/25/17 19:29 Al Hydroxide/Mg Hydroxide (Mylanta II) 30 ml Q6H PRN ORAL dyspepsia 04/27/17 13:30 05/25/17 19:29 Amlodipine Besylate (Norvasc) 10 mg DAILY ORAL 04/28/17 09:00 05/26/17 10:44 04/28/17 10:14 Ceftriaxone Sodium 1 gm/ Dextrose 55 ml @ 110 mls/hr Q24H IVPB 04/27/17 16:00 05/03/17 15:59 04/27/17 16:34 Clonidine HCl (Catapres) 0.1 mg Q4H PRN ORAL sbp > 160 04/27/17 15:30 05/25/17 19:29 Dextrose (Dextrose 50%) STAT PRN IV Hypoglycemia 04/28/17 07:45 05/27/17 07:44 Diphenhydramine HCl (Benadryl) 25 mg Q6H PRN ORAL Itching/Pruritis 04/27/17 13:30 05/25/17 19:29 Heparin Sodium (Porcine) (Heparin 5000 units/ml) 5,000 units EVERY 12 HOURS SUBQ 04/27/17 21:00 05/25/17 10:44 Hydromorphone HCl (Dilaudid) 1 mg Q4H PRN IVP For Pain 04/27/17 14:30 05/03/17 10:29 04/28/17 08:07 Insulin Aspart (NovoLOG) BEFORE MEALS AND HS SUBQ 04/27/17 16:30 05/25/17 20:59 04/28/17 06:36 Insulin Aspart (NovoLOG) 4 units NOVOTIAC SUBQ 04/27/17 16:50 05/27/17 08:14 04/28/17 12:41 Insulin Detemir (Levemir) 14 units DAILY SUBQ 04/28/17 09:00 05/27/17 08:59 04/28/17 12:43 Nitroglycerin (Ntg) 0.4 mg Q 5MINS PRN SL Prn Chest Pain 04/27/17 12:00 05/25/17 19:29 Ondansetron HCl (Zofran) 4 mg Q6H PRN IVP Nausea & Vomiting 04/27/17 13:30 05/25/17 19:29 Pantoprazole (Protonix) 40 mg DAILY ORAL 04/28/17 09:00 05/26/17 14:29 04/28/17 10:14 Polyethylene Glycol (Miralax) 17 gm HSPRN PRN ORAL Constipation 04/27/17 19:30 05/25/17 19:29 Pregabalin (Lyrica) 50 mg BID ORAL 04/27/17 18:00 05/26/17 10:44 04/28/17 10:14 Sodium Chloride 1,000 ml @ 75 mls/hr [id number] IV 04/27/17 12:00 05/01/17 06:59 04/28/17 02:51 Temazepam (Restoril) 15 mg HSPRN PRN ORAL Insomnia 04/27/17 19:30 05/02/17 19:29 Allergies: Coded Allergies: No Known Allergies (Unverified , 04/24/14) ROS Limited/Unobtainable: No Constitutional: Reports: no symptoms HEENT: Reports: no symptoms Cardiovascular: Reports: no symptoms Respiratory: Reports: no symptoms Gastrointestinal/Abdominal: Reports: abdominal pain Genitourinary: Reports: no symptoms Neurologic/Psychiatric: Reports: no symptoms Subjective 46 YO F admitted with abdominal pain, now pancreatitis. Cover for Jonathan Dhillon-Dr Hardin. Objective Last Vital Signs Date Time Temp Pulse Resp B/P (MAP) Pulse Ox O2 Delivery O2 Flow Rate FiO2 04/28/17 10:14 90 132/75 04/28/17 08:00 97.5 20 97 Room Air 04/28/17 07:00 21 04/27/17 19:22 2.0 Laboratory Tests Test 04/28/17 06:40 White Blood Count 7.2 K/UL (4.8-10.8) Red Blood Count 2.87 M/UL (4.20-5.40) L Hemoglobin 9.0 G/DL (12.0-16.0) L Hematocrit 28.6 % (37.0-47.0) L Mean Corpuscular Volume 100 FL (80-99) H Mean Corpuscular Hemoglobin 31.3 PG (27.0-31.0) H Mean Corpuscular Hemoglobin Concent 31.4 G/DL (32.0-36.0) L Red Cell Distribution Width 15.4 % (11.6-14.8) H Platelet Count 158 K/UL (150-450) Mean Platelet Volume 8.3 FL (6.5-10.1) Neutrophils (%) (Auto) 68.4 % (45.0-75.0) Lymphocytes (%) (Auto) 24.8 % (20.0-45.0) Monocytes (%) (Auto) 6.0 % (1.0-10.0) Eosinophils (%) (Auto) 0.4 % (0.0-3.0) Basophils (%) (Auto) 0.4 % (0.0-2.0) Erythrocyte Sedimentation Rate 50 MM/HR (0-20) H Sodium Level 140 MMOL/L (136-145) Potassium Level 3.9 MMOL/L (3.5-5.1) Chloride Level 104 MMOL/L (98-107) Carbon Dioxide Level 32 MMOL/L (21-32) Anion Gap 4 mmol/L (5-15) L Blood Urea Nitrogen 15 mg/dL (7-18) Creatinine 1.3 MG/DL (0.55-1.30) Estimat Glomerular Filtration Rate 53.7 mL/min (>60) Glucose Level 338 MG/DL (74-106) #H Hemoglobin A1c 12.0 % (4.3-6.0) H Calcium Level 7.6 MG/DL (8.5-10.1) L Calcium (Send out) Pending Phosphorus Level 1.7 MG/DL (2.5-4.9) L Magnesium Level 1.9 MG/DL (1.8-2.4) Iron Level 82 ug/dL (50-175) Total Iron Binding Capacity 276 ug/dL (250-450) Percent Iron Saturation 30 % (15-50) Unsaturated Iron Binding 194 ug/dL (112-346) Total Bilirubin 0.4 MG/DL (0.2-1.0) Aspartate Amino Transf (AST/SGOT) 32 U/L (15-37) Alanine Aminotransferase (ALT/SGPT) 54 U/L (12-78) Alkaline Phosphatase 99 U/L (46-116) C-Reactive Protein, Quantitative 2.5 mg/dL (0.00-0.90) H Total Protein 6.0 G/DL (6.4-8.2) L Albumin 2.6 G/DL (3.4-5.0) L Globulin 3.4 g/dL Albumin/Globulin Ratio 0.8 (1.0-2.7) L Amylase Level 230 U/L (25-115) H Lipase 2074 U/L (73-393) H Parathyroid Hormone (Intact) Pending Microbiology Date/Time Source Procedure Growth Status 04/25/17 21:00 Urine,Clean Catch Urine Culture - Final Klebsiella Pneumoniae Escherichia Coli Complete Intake and Output 04/28/17 04/29/17 19:00 07:00 Intake Total 300 ml Balance 300 ml IV Total 300 ml Objective General Appearance: WD/WN, no apparent distress, alert EENT: PERRL/EOMI, normal ENT inspection, TMs normal Neck: non-tender, normal alignment, supple Cardiovascular: normal peripheral pulses, normal rate, regular rhythm, no gallop/murmur, no JVD Respiratory/Chest: chest wall non-tender, lungs clear, normal breath sounds, no respiratory distress, no accessory muscle use Abdomen: no organomegaly, no mass, decreased bowel sounds, tender Extremities: normal range of motion Neurologic: epic manager II-XII grossly normal, no motor/sensory deficits Skin: normal pigmentation, warm/dry Assessment/Plan Problem List: (1) Diabetes type 1, uncontrolled Assessment & Plan: Continue levemir and novolog sliding scale. (2) Pancreatitis Assessment & Plan: Await CT abdomen results. See GI note. Tolerating soft diet. (3) HTN (hypertension) Assessment & Plan: Continue norvasc (4) Diabetic gastroparesis Assessment & Plan: See GI note. (5) Renal failure (6) Major depression Status: progressing CHRISTOS JACOBSEN Apr 28, 2017 13:53
[2017-04-28] MEDS ORDERED: Fluconazole 100mg tab ORAL ONE (15:00)
[2017-04-28] MEDS: cefTRIAXone 1 GM in D5W 55 ML IVPB SCH (15:29)
[2017-04-28] MEDS ORDERED: Tubing IV Secondary IV ONE (15:46)
[2017-04-28] MEDS ORDERED: NS 275ml ONE (15:46)
[2017-04-28] MEDS ORDERED: 1/2 NS 1000ml IV ONE (15:46)
[2017-04-28] MEDS ORDERED: D5 1/2NS 1000ml IV ONE (15:50)
[2017-04-28 16:00] VITALS: BP 138/80
[2017-04-28 20:00] VITALS: BP 108/65
[2017-04-28] MEDS: Clotrimazole 1% Vaginal Cr 45gm VAGIN SCH (20:30)
--- NOTE | 2017-04-28 21:18 | Pulmonology Progress Note ---
Assessment/Plan Problems: (1) Diabetic ketoacidosis, type I (2) HTN (hypertension) (3) Major depression Assessment/Plan improving advance diet check BS all consult reviewed Subjective ROS Limited/Unobtainable: No Interval Events: feeling better Allergies: Coded Allergies: No Known Allergies (Unverified , 04/24/14) Objective Last 24 Hour Vital Signs Date Time Temp Pulse Resp B/P (MAP) Pulse Ox O2 Delivery O2 Flow Rate FiO2 04/28/17 20:10 97 Room Air 04/28/17 20:10 Room Air 04/28/17 20:00 97.9 83 21 108/65 94 Room Air 04/28/17 16:00 98.1 89 19 138/80 94 Room Air 04/28/17 12:00 97.7 84 20 130/69 98 Room Air 04/28/17 10:14 90 132/75 04/28/17 08:00 97.5 90 20 132/75 97 Room Air 04/28/17 07:00 98 Room Air 04/28/17 07:00 Room Air 21 04/28/17 04:00 98.2 82 20 124/70 90 Room Air 04/28/17 03:23 98.4 04/28/17 00:00 98.4 87 20 133/80 96 Room Air Intake and Output 04/28/17 04/29/17 19:00 07:00 Intake Total 940 ml Balance 940 ml Intake Oral 240 ml IV Total 700 ml # Voids 3 Objective HEENT: atraumatic, normocephalic Lungs: clear Heart: HR/BP stable Abdomen: soft, active bowel sounds Extremities: no C/C/E, edema Laboratory Tests 04/28/17 06:40: White Blood Count 7.2, Red Blood Count 2.87L, Hemoglobin 9.0L, Hematocrit 28.6L , Mean Corpuscular Volume 100H, Mean Corpuscular Hemoglobin 31.3H, Mean Corpuscular Hemoglobin Concent 31.4L, Red Cell Distribution Width 15.4H, Platelet Count 158, Mean Platelet Volume 8.3, Neutrophils (%) (Auto) 68.4, Lymphocytes (%) (Auto) 24.8, Monocytes (%) (Auto) 6.0, Eosinophils (%) (Auto) 0.4, Basophils (%) (Auto) 0.4, Erythrocyte Sedimentation Rate 50H, Sodium Level 140, Potassium Level 3.9, Chloride Level 104, Carbon Dioxide Level 32, Anion Gap 4L, Blood Urea Nitrogen 15, Creatinine 1.3, Estimat Glomerular Filtration Rate 53.7, Glucose Level 338#H, Hemoglobin A1c 12.0H, Calcium Level 7.6L, Calcium (Send out) [Pending], Phosphorus Level 1.7L, Magnesium Level 1.9, Iron Level 82, Total Iron Binding Capacity 276, Percent Iron Saturation 30, Unsaturated Iron Binding 194, Total Bilirubin 0.4, Aspartate Amino Transf (AST/ SGOT) 32, Alanine Aminotransferase (ALT/SGPT) 54, Alkaline Phosphatase 99, C- Reactive Protein, Quantitative 2.5H, Total Protein 6.0L, Albumin 2.6L, Globulin 3.4, Albumin/Globulin Ratio 0.8L, Amylase Level 230H, Lipase 2074H, Parathyroid Hormone (Intact) [Pending] Current Medications Medications (Trade) Dose Ordered Sig/Lizbeth Route PRN Reason Start Time Stop Time Status Last Admin Dose Admin Acetaminophen (Tylenol) 650 mg Q4H PRN ORAL fever 04/27/17 15:30 05/25/17 19:29 Al Hydroxide/Mg Hydroxide (Mylanta II) 30 ml Q6H PRN ORAL dyspepsia 04/27/17 13:30 05/25/17 19:29 Amlodipine Besylate (Norvasc) 10 mg DAILY ORAL 04/28/17 09:00 05/26/17 10:44 04/28/17 10:14 Ceftriaxone Sodium 1 gm/ Dextrose 55 ml @ 110 mls/hr Q24H IVPB 04/27/17 16:00 05/03/17 15:59 04/28/17 15:29 Clonidine HCl (Catapres) 0.1 mg Q4H PRN ORAL sbp > 160 04/27/17 15:30 05/25/17 19:29 Clotrimazole (Gyne-Lotrimin) 1 applic BEDTIME VAGIN 04/28/17 21:00 05/28/17 20:59 04/28/17 20:30 Dextrose (Dextrose 50%) STAT PRN IV Hypoglycemia 04/28/17 07:45 05/27/17 07:44 Diphenhydramine HCl (Benadryl) 25 mg Q6H PRN ORAL Itching/Pruritis 04/27/17 13:30 05/25/17 19:29 Heparin Sodium (Porcine) (Heparin 5000 units/ml) 5,000 units EVERY 12 HOURS SUBQ 04/27/17 21:00 05/25/17 10:44 Hydromorphone HCl (Dilaudid) 1 mg Q4H PRN IVP For Pain 04/27/17 14:30 05/03/17 10:29 04/28/17 17:36 Insulin Aspart (NovoLOG) BEFORE MEALS AND HS SUBQ 04/27/17 16:30 05/25/17 20:59 04/28/17 20:31 Insulin Aspart (NovoLOG) 4 units NOVOTIAC SUBQ 04/27/17 16:50 05/27/17 08:14 04/28/17 17:28 Insulin Detemir (Levemir) 14 units DAILY SUBQ 04/28/17 09:00 05/27/17 08:59 04/28/17 12:43 Nitroglycerin (Ntg) 0.4 mg Q 5MINS PRN SL Prn Chest Pain 04/27/17 12:00 05/25/17 19:29 Ondansetron HCl (Zofran) 4 mg Q6H PRN IVP Nausea & Vomiting 04/27/17 13:30 05/25/17 19:29 Pantoprazole (Protonix) 40 mg DAILY ORAL 04/28/17 09:00 05/26/17 14:29 04/28/17 10:14 Polyethylene Glycol (Miralax) 17 gm HSPRN PRN ORAL Constipation 04/27/17 19:30 05/25/17 19:29 Pregabalin (Lyrica) 50 mg BID ORAL 04/27/17 18:00 05/26/17 10:44 04/28/17 18:07 Sodium Chloride 1,000 ml @ 75 mls/hr [id number] IV 04/27/17 12:00 05/01/17 06:59 04/28/17 18:55 Temazepam (Restoril) 15 mg HSPRN PRN ORAL Insomnia 04/27/17 19:30 05/02/17 19:29 VANESSA SAGASTUME Apr 28, 2017 21:17
[2017-04-29] VITALS (7 sets, daily range): BP systolic 113–171; BP diastolic 61–94
[2017-04-29] MEDS: HYDROmorphone 1mg/ml Carpuject IVP PRN ×6 (00:15→23:54)
[2017-04-29] MEDS: NovoLOG Insulin Flexpen SUBQ SCH ×7 (06:27→21:00)
[2017-04-29 07:07] LABS: BASOPHILS % (AUTO) 1.2 % (0.0-2.0); EOSINOPHILS % (AUTO) 0.5 % (0.0-3.0); LYMPHOCYTES % (AUTO) 35.9 % (20.0-45.0); MEAN CORPUSCULAR HGB CONC 31.1 G/DL (32.0-36.0); MEAN CORPUSCULAR VOLUME 100 FL (80-99); MEAN PLATELET VOLUME 7.8 FL (6.5-10.1); MONOCYTES % (AUTO) 6.6 % (1.0-10.0); NEUTROPHILS % (AUTO) 55.8 % (45.0-75.0); PLATELET COUNT 148 K/UL (150-450); RED BLOOD COUNT 3.12 M/UL (4.20-5.40); RED CELL DISTRIBUTION WIDTH 15.1 % (11.6-14.8); WHITE BLOOD COUNT 5.1 K/UL (4.8-10.8)
[2017-04-29 07:41] LABS: ALANINE AMINOTRANSFERASE 57 U/L (12-78); ALBUMIN/GLOBULIN RATIO 0.7 (1.0-2.7); AMYLASE 173 U/L (25-115); ANION GAP 7 mmol/L (5-15); ASPARTATE AMINO TRANSFERASE 29 U/L (15-37); CARBON DIOXIDE 30 MMOL/L (21-32); CHLORIDE 100 MMOL/L (98-107); GLOMERULAR FILTRATION RATE > 60 mL/min (>60); LIPASE 1073 U/L (73-393); SODIUM 137 MMOL/L (136-145); TOTAL PROTEIN 6.5 G/DL (6.4-8.2)
--- NOTE | 2017-04-29 07:52 | General Progress Note ---
Assessment/Plan Problem List: (1) DKA (diabetic ketoacidoses) ICD Codes: E13.10 - Other specified diabetes mellitus with ketoacidosis without coma SNOMED: 47280951, 872972945 (2) Uncontrolled diabetes mellitus ICD Codes: E11.65 - Type 2 diabetes mellitus with hyperglycemia SNOMED: 09768301, [id number] (3) Pancreatitis ICD Codes: K85.90 - Acute pancreatitis without necrosis or infection, unspecified SNOMED: 47475571 Qualifiers: Qualified Codes: K85.90 - Acute pancreatitis without necrosis or infection, unspecified (4) ARF (acute renal failure) ICD Codes: N17.9 - ARF (acute renal failure) SNOMED: 93202993 Qualifiers: Qualified Codes: N17.9 - Acute kidney failure, unspecified Assessment/Plan Levemir 14 units daily Novolog 4 units ac tid + SSI Subjective Allergies: Coded Allergies: No Known Allergies (Unverified , 04/24/14) All Systems: reviewed and negative except above Subjective events noted Objective Last 24 Hour Vital Signs Date Time Temp Pulse Resp B/P (MAP) Pulse Ox O2 Delivery O2 Flow Rate FiO2 04/29/17 07:42 Room Air 04/29/17 07:41 97 Room Air 04/29/17 05:13 83 143/80 04/29/17 05:08 97.3 04/29/17 04:41 97.3 92 20 168/94 98 Room Air 04/29/17 00:19 97.3 86 20 126/62 94 Room Air 04/28/17 20:10 97 Room Air 04/28/17 20:10 Room Air 04/28/17 20:00 97.9 83 21 108/65 94 Room Air 04/28/17 16:00 98.1 89 19 138/80 94 Room Air 04/28/17 12:00 97.7 84 20 130/69 98 Room Air 04/28/17 10:14 90 132/75 04/28/17 08:00 97.5 90 20 132/75 97 Room Air Intake and Output 04/29/17 04/30/17 19:00 07:00 Intake Total 75 ml Balance 75 ml IV Total 75 ml Laboratory Tests 04/29/17 05:15: White Blood Count 5.1, Red Blood Count 3.12L, Hemoglobin 9.7L, Hematocrit 31.1L , Mean Corpuscular Volume 100H, Mean Corpuscular Hemoglobin 31.0, Mean Corpuscular Hemoglobin Concent 31.1L, Red Cell Distribution Width 15.1H, Platelet Count 148L, Mean Platelet Volume 7.8, Neutrophils (%) (Auto) 55.8, Lymphocytes (%) (Auto) 35.9, Monocytes (%) (Auto) 6.6, Eosinophils (%) (Auto) 0.5, Basophils (%) (Auto) 1.2, Sodium Level 137, Potassium Level 4.0, Chloride Level 100, Carbon Dioxide Level 30, Anion Gap 7, Blood Urea Nitrogen 11, Creatinine 1.0, Estimat Glomerular Filtration Rate > 60, Glucose Level 278H, Calcium Level 8.0L, Total Bilirubin 0.5, Aspartate Amino Transf (AST/SGOT) 29, Alanine Aminotransferase (ALT/SGPT) 57, Alkaline Phosphatase 105, Total Protein 6.5, Albumin 2.7L, Globulin 3.8, Albumin/Globulin Ratio 0.7L, Amylase Level 173H , Lipase 1073H Height (Feet): 5 Height (Inches): 4.00 Weight (Pounds): 129 General Appearance: no apparent distress Neck: normal alignment Cardiovascular: normal rate Respiratory/Chest: lungs clear Abdomen: normal bowel sounds Pelvis: normal external exam Edema: 1+ Arm (L), 1+ Arm (R), 1+ Leg (L), 1+ Leg (R), 1+ Pedal (L), 1+ Pedal ( R), 1+ Generalized Objective Current Medications Medications (Trade) Dose Ordered Sig/Lizbeth Route PRN Reason Start Time Stop Time Status Last Admin Dose Admin Acetaminophen (Tylenol) 650 mg Q4H PRN ORAL fever 04/27/17 15:30 05/25/17 19:29 Al Hydroxide/Mg Hydroxide (Mylanta II) 30 ml Q6H PRN ORAL dyspepsia 04/27/17 13:30 05/25/17 19:29 Amlodipine Besylate (Norvasc) 10 mg DAILY ORAL 04/28/17 09:00 05/26/17 10:44 04/28/17 10:14 Ceftriaxone Sodium 1 gm/ Dextrose 55 ml @ 110 mls/hr Q24H IVPB 04/27/17 16:00 05/03/17 15:59 04/28/17 15:29 Clonidine HCl (Catapres) 0.1 mg Q4H PRN ORAL sbp > 160 04/27/17 15:30 05/25/17 19:29 Clotrimazole (Gyne-Lotrimin) 1 applic BEDTIME VAGIN 04/28/17 21:00 05/28/17 20:59 04/28/17 20:30 Dextrose (Dextrose 50%) STAT PRN IV Hypoglycemia 04/28/17 07:45 05/27/17 07:44 Diphenhydramine HCl (Benadryl) 25 mg Q6H PRN ORAL Itching/Pruritis 04/27/17 13:30 05/25/17 19:29 Heparin Sodium (Porcine) (Heparin 5000 units/ml) 5,000 units EVERY 12 HOURS SUBQ 04/27/17 21:00 05/25/17 10:44 Hydromorphone HCl (Dilaudid) 1 mg Q4H PRN IVP For Pain 04/27/17 14:30 05/03/17 10:29 04/29/17 04:38 Insulin Aspart (NovoLOG) BEFORE MEALS AND HS SUBQ 04/27/17 16:30 05/25/17 20:59 04/29/17 06:28 Insulin Aspart (NovoLOG) 4 units NOVOTIAC SUBQ 04/27/17 16:50 05/27/17 08:14 04/29/17 06:27 Insulin Detemir (Levemir) 14 units DAILY SUBQ 04/28/17 09:00 05/27/17 08:59 04/28/17 12:43 Nitroglycerin (Ntg) 0.4 mg Q 5MINS PRN SL Prn Chest Pain 04/27/17 12:00 05/25/17 19:29 Ondansetron HCl (Zofran) 4 mg Q6H PRN IVP Nausea & Vomiting 04/27/17 13:30 05/25/17 19:29 Pantoprazole (Protonix) 40 mg DAILY ORAL 04/28/17 09:00 05/26/17 14:29 04/28/17 10:14 Polyethylene Glycol (Miralax) 17 gm HSPRN PRN ORAL Constipation 04/27/17 19:30 05/25/17 19:29 Pregabalin (Lyrica) 50 mg BID ORAL 04/27/17 18:00 05/26/17 10:44 04/28/17 18:07 Sodium Chloride 1,000 ml @ 75 mls/hr [id number] IV 04/27/17 12:00 05/01/17 06:59 04/29/17 03:11 Temazepam (Restoril) 15 mg HSPRN PRN ORAL Insomnia 04/27/17 19:30 05/02/17 19:29 Item Value Date Time Bedside Blood Glucose 256 mg/dl H 04/29/17 0628 Bedside Blood Glucose 115 mg/dl 04/28/17 2100 Bedside Blood Glucose 325 mg/dl H 04/28/17 1728 Bedside Blood Glucose 175 mg/dl H 04/28/17 1243 Bedside Blood Glucose 322 mg/dl H 04/28/17 0636 IVY SULLIVAN Apr 29, 2017 07:52
[2017-04-29] MEDS: Lyrica 50mg cap ORAL SCH ×2 (08:42→18:45)
[2017-04-29] MEDS: Levemir Flexpen SUBQ SCH (08:46)
[2017-04-29] MEDS: Heparin 5000 units/ml inj SUBQ SCH ×2 (08:52→21:00)
--- NOTE | 2017-04-29 11:49 | Internal Med Progress Note ---
Subjective Date of Service: Apr 29, 2017 Physician Name Christos Jacobsen Attending Physician Aries Hardin MD Current Medications Medications (Trade) Dose Ordered Sig/Lizbeth Route PRN Reason Start Time Stop Time Status Last Admin Dose Admin Acetaminophen (Tylenol) 650 mg Q4H PRN ORAL fever 04/27/17 15:30 05/25/17 19:29 Al Hydroxide/Mg Hydroxide (Mylanta II) 30 ml Q6H PRN ORAL dyspepsia 04/27/17 13:30 05/25/17 19:29 Amlodipine Besylate (Norvasc) 10 mg DAILY ORAL 04/28/17 09:00 05/26/17 10:44 04/29/17 08:40 Ceftriaxone Sodium 1 gm/ Dextrose 55 ml @ 110 mls/hr Q24H IVPB 04/27/17 16:00 05/03/17 15:59 04/28/17 15:29 Clonidine HCl (Catapres) 0.1 mg Q4H PRN ORAL sbp > 160 04/27/17 15:30 05/25/17 19:29 Clotrimazole (Gyne-Lotrimin) 1 applic BEDTIME VAGIN 04/28/17 21:00 05/28/17 20:59 04/28/17 20:30 Dextrose (Dextrose 50%) STAT PRN IV Hypoglycemia 04/28/17 07:45 05/27/17 07:44 Diphenhydramine HCl (Benadryl) 25 mg Q6H PRN ORAL Itching/Pruritis 04/27/17 13:30 05/25/17 19:29 Heparin Sodium (Porcine) (Heparin 5000 units/ml) 5,000 units EVERY 12 HOURS SUBQ 04/27/17 21:00 05/25/17 10:44 Hydromorphone HCl (Dilaudid) 1 mg Q4H PRN IVP For Pain 04/27/17 14:30 05/03/17 10:29 04/29/17 09:05 Insulin Aspart (NovoLOG) BEFORE MEALS AND HS SUBQ 04/27/17 16:30 05/25/17 20:59 04/29/17 06:28 Insulin Aspart (NovoLOG) 4 units NOVOTIAC SUBQ 04/27/17 16:50 05/27/17 08:14 04/29/17 06:27 Insulin Detemir (Levemir) 14 units DAILY SUBQ 04/28/17 09:00 05/27/17 08:59 04/29/17 08:46 Nitroglycerin (Ntg) 0.4 mg Q 5MINS PRN SL Prn Chest Pain 04/27/17 12:00 05/25/17 19:29 Ondansetron HCl (Zofran) 4 mg Q6H PRN IVP Nausea & Vomiting 04/27/17 13:30 05/25/17 19:29 Pantoprazole (Protonix) 40 mg DAILY ORAL 04/28/17 09:00 05/26/17 14:29 04/29/17 08:40 Polyethylene Glycol (Miralax) 17 gm HSPRN PRN ORAL Constipation 04/27/17 19:30 05/25/17 19:29 Pregabalin (Lyrica) 50 mg BID ORAL 04/27/17 18:00 05/26/17 10:44 04/29/17 08:42 Sodium Chloride 1,000 ml @ 75 mls/hr [id number] IV 04/27/17 12:00 05/01/17 06:59 04/29/17 03:11 Temazepam (Restoril) 15 mg HSPRN PRN ORAL Insomnia 04/27/17 19:30 05/02/17 19:29 Allergies: Coded Allergies: No Known Allergies (Unverified , 04/24/14) ROS Limited/Unobtainable: No Constitutional: Reports: no symptoms HEENT: Reports: no symptoms Cardiovascular: Reports: no symptoms Respiratory: Reports: no symptoms Gastrointestinal/Abdominal: Reports: no symptoms Genitourinary: Reports: no symptoms Neurologic/Psychiatric: Reports: no symptoms Subjective 46 YO F admitted with abdominal pain, now pancreatitis. Cover for Int Alejo-Dr Hardin. Objective Last Vital Signs Date Time Temp Pulse Resp B/P (MAP) Pulse Ox O2 Delivery O2 Flow Rate FiO2 04/29/17 08:40 90 141/78 04/29/17 08:00 97.9 20 100 Room Air 04/28/17 07:00 21 04/27/17 19:22 2.0 Laboratory Tests Test 04/29/17 05:15 White Blood Count 5.1 K/UL (4.8-10.8) Red Blood Count 3.12 M/UL (4.20-5.40) L Hemoglobin 9.7 G/DL (12.0-16.0) L Hematocrit 31.1 % (37.0-47.0) L Mean Corpuscular Volume 100 FL (80-99) H Mean Corpuscular Hemoglobin 31.0 PG (27.0-31.0) Mean Corpuscular Hemoglobin Concent 31.1 G/DL (32.0-36.0) L Red Cell Distribution Width 15.1 % (11.6-14.8) H Platelet Count 148 K/UL (150-450) L Mean Platelet Volume 7.8 FL (6.5-10.1) Neutrophils (%) (Auto) 55.8 % (45.0-75.0) Lymphocytes (%) (Auto) 35.9 % (20.0-45.0) Monocytes (%) (Auto) 6.6 % (1.0-10.0) Eosinophils (%) (Auto) 0.5 % (0.0-3.0) Basophils (%) (Auto) 1.2 % (0.0-2.0) Sodium Level 137 MMOL/L (136-145) Potassium Level 4.0 MMOL/L (3.5-5.1) Chloride Level 100 MMOL/L (98-107) Carbon Dioxide Level 30 MMOL/L (21-32) Anion Gap 7 mmol/L (5-15) Blood Urea Nitrogen 11 mg/dL (7-18) Creatinine 1.0 MG/DL (0.55-1.30) Estimat Glomerular Filtration Rate > 60 mL/min (>60) Glucose Level 278 MG/DL (74-106) H Calcium Level 8.0 MG/DL (8.5-10.1) L Total Bilirubin 0.5 MG/DL (0.2-1.0) Aspartate Amino Transf (AST/SGOT) 29 U/L (15-37) Alanine Aminotransferase (ALT/SGPT) 57 U/L (12-78) Alkaline Phosphatase 105 U/L (46-116) Total Protein 6.5 G/DL (6.4-8.2) Albumin 2.7 G/DL (3.4-5.0) L Globulin 3.8 g/dL Albumin/Globulin Ratio 0.7 (1.0-2.7) L Amylase Level 173 U/L (25-115) H Lipase 1073 U/L (73-393) H Intake and Output 04/29/17 04/30/17 19:00 07:00 Intake Total 315 ml Balance 315 ml Intake Oral 240 ml IV Total 75 ml # Voids 2 Objective General Appearance: WD/WN, no apparent distress, alert EENT: PERRL/EOMI, normal ENT inspection, TMs normal Neck: non-tender, normal alignment, supple Cardiovascular: normal peripheral pulses, normal rate, regular rhythm, no gallop/murmur, no JVD Respiratory/Chest: chest wall non-tender, lungs clear, normal breath sounds, no respiratory distress, no accessory muscle use Abdomen: no organomegaly, no mass, decreased bowel sounds, tender Extremities: normal range of motion Neurologic: inspector heating and refrigeration II-XII grossly normal, no motor/sensory deficits Skin: normal pigmentation, warm/dry Assessment/Plan Problem List: (1) Diabetes type 1, uncontrolled Assessment & Plan: Continue levemir and novolog sliding scale. (2) Pancreatitis Assessment & Plan: Await CT abdomen results. See GI note. Tolerating soft diet. (3) HTN (hypertension) Assessment & Plan: Continue norvasc (4) Diabetic gastroparesis Assessment & Plan: See GI note. (5) Renal failure (6) Major depression (7) UTI (urinary tract infection) Assessment & Plan: Kleb pneumo and E.Coli. Cont ceftriaxone. Status: progressing CHRISTOS JACOBSEN Apr 29, 2017 11:49
--- NOTE | 2017-04-29 12:15 | GI Progress Note ---
Assessment/Plan Problems: (1) Vomiting ICD Codes: R11.10 - Vomiting, unspecified SNOMED: 261777761 (2) Diabetic ketoacidosis, type I ICD Codes: E10.10 - Type 1 diabetes mellituswith ketoacidosis without coma SNOMED: 851279098 (3) Hypoalbuminemia ICD Codes: E88.09 - Other disorders of plasma-protein metabolism, not elsewhere classified SNOMED: 492302939 (4) Diabetes ICD Codes: E11.9 - Type 2 diabetes mellitus without complications SNOMED: 98497216 (5) Anemia ICD Codes: D64.9 - Anemia, unspecified SNOMED: 969111757 (6) Dehydration ICD Codes: E86.0 - Dehydration SNOMED: 84777380 (7) Esophagitis ICD Codes: K20.9 - Esophagitis, unspecified SNOMED: 88030440 (8) GERD (gastroesophageal reflux disease) ICD Codes: K21.9 - Gastro-esophageal reflux disease without esophagitis SNOMED: 584966318 Qualifiers: Qualified Codes: K21.9 - Gastro-esophageal reflux disease without esophagitis (9) Pancreatitis ICD Codes: K85.90 - Acute pancreatitis without necrosis or infection, unspecified SNOMED: 24858304 Qualifiers: Qualified Codes: K85.90 - Acute pancreatitis without necrosis or infection, unspecified Status: stable Status Narrative Discussed with Dr. Patel. Assessment/Plan AP CT reviewed >> - Hepatomegaly with diffuse fatty infiltration. - Some mildly dilated loops of proximal small bowel with decompressed distal small bowel loops. - Normal appendix. - Hazy, ground glass infiltrate noted in the left lower lobe lung. - Small amount of fluid in the pelvis which may be physiologic. No free air. Utox >> marijuana positive ADA diet, tolerating IV hydration pain control fu labs dc planning Subjective Gastrointestinal/Abdominal: Reports: abdominal pain - accompanied with tenderness Objective Last 24 Hour Vital Signs Date Time Temp Pulse Resp B/P (MAP) Pulse Ox O2 Delivery O2 Flow Rate FiO2 04/29/17 08:40 90 141/78 04/29/17 08:00 97.9 104 20 159/91 100 Room Air 04/29/17 07:42 Room Air 04/29/17 07:41 97 Room Air 04/29/17 05:13 83 143/80 04/29/17 05:08 97.3 11/13/17 04:41 97.3 92 20 168/94 98 Room Air 04/29/17 00:19 97.3 86 20 126/62 94 Room Air 04/28/17 20:10 97 Room Air 04/28/17 20:10 Room Air 04/28/17 20:00 97.9 83 21 108/65 94 Room Air 04/28/17 16:00 98.1 89 19 138/80 94 Room Air Intake and Output 04/29/17 04/30/17 19:00 07:00 Intake Total 315 ml Balance 315 ml Intake Oral 240 ml IV Total 75 ml # Voids 2 Laboratory Tests Test 04/29/17 05:15 White Blood Count 5.1 K/UL (4.8-10.8) Red Blood Count 3.12 M/UL (4.20-5.40) L Hemoglobin 9.7 G/DL (12.0-16.0) L Hematocrit 31.1 % (37.0-47.0) L Mean Corpuscular Volume 100 FL (80-99) H Mean Corpuscular Hemoglobin 31.0 PG (27.0-31.0) Mean Corpuscular Hemoglobin Concent 31.1 G/DL (32.0-36.0) L Red Cell Distribution Width 15.1 % (11.6-14.8) H Platelet Count 148 K/UL (150-450) L Mean Platelet Volume 7.8 FL (6.5-10.1) Neutrophils (%) (Auto) 55.8 % (45.0-75.0) Lymphocytes (%) (Auto) 35.9 % (20.0-45.0) Monocytes (%) (Auto) 6.6 % (1.0-10.0) Eosinophils (%) (Auto) 0.5 % (0.0-3.0) Basophils (%) (Auto) 1.2 % (0.0-2.0) Sodium Level 137 MMOL/L (136-145) Potassium Level 4.0 MMOL/L (3.5-5.1) Chloride Level 100 MMOL/L (98-107) Carbon Dioxide Level 30 MMOL/L (21-32) Anion Gap 7 mmol/L (5-15) Blood Urea Nitrogen 11 mg/dL (7-18) Creatinine 1.0 MG/DL (0.55-1.30) Estimat Glomerular Filtration Rate > 60 mL/min (>60) Glucose Level 278 MG/DL (74-106) H Calcium Level 8.0 MG/DL (8.5-10.1) L Total Bilirubin 0.5 MG/DL (0.2-1.0) Aspartate Amino Transf (AST/SGOT) 29 U/L (15-37) Alanine Aminotransferase (ALT/SGPT) 57 U/L (12-78) Alkaline Phosphatase 105 U/L (46-116) Total Protein 6.5 G/DL (6.4-8.2) Albumin 2.7 G/DL (3.4-5.0) L Globulin 3.8 g/dL Albumin/Globulin Ratio 0.7 (1.0-2.7) L Amylase Level 173 U/L (25-115) H Lipase 1073 U/L (73-393) H Height (Feet): 5 Height (Inches): 4.00 Weight (Pounds): 129 General Appearance: WD/WN, no apparent distress, alert, thin Cardiovascular: normal rate Respiratory/Chest: normal breath sounds, no respiratory distress Abdominal Exam: normal bowel sounds, non tender, soft Extremities: normal range of motion, non-tender Venus Hart [email or web address] Apr 29, 2017 12:15
--- NOTE | 2017-04-29 14:38 | Nephrology Progress Note ---
Assessment/Plan Problem List: (1) CKD (chronic kidney disease) (2) ARF (acute renal failure) Assessment: improved (3) DKA (diabetic ketoacidoses) (4) HTN (hypertension) (5) Anemia Assessment: better Plan Would give glucose in IVF if ok with endo abxs follow labs 1. Measure #1, perform hemoglobin A1c at least once in 2017. This was ordered. 2. Measure #130, I obtained updated review of the patient's current medications. 3. Measure #374, send report to referring provider. This will be done through EMR. The following improvement activities were done. 4. Implementation of use of specialists' reports back to referring clinician or group to close referral loop and this will be done through EMR. 5. Provide 07/01 access to eligible clinicians or groups, who have a real-time access to the patient's medical record done through EMR. Subjective Subjective resting Objective Objective Last 24 Hour Vital Signs Date Time Temp Pulse Resp B/P (MAP) Pulse Ox O2 Delivery O2 Flow Rate FiO2 04/29/17 08:40 90 141/78 04/29/17 08:00 97.9 104 20 159/91 100 Room Air 04/29/17 07:42 Room Air 04/29/17 07:41 97 Room Air 04/29/17 05:13 83 143/80 04/29/17 05:08 97.3 04/29/17 04:41 97.3 92 20 168/94 98 Room Air 04/29/17 00:19 97.3 86 20 126/62 94 Room Air 04/28/17 20:10 97 Room Air 04/28/17 20:10 Room Air 04/28/17 20:00 97.9 83 21 108/65 94 Room Air 04/28/17 16:00 98.1 89 19 138/80 94 Room Air Intake and Output 04/29/17 04/30/17 19:00 07:00 Intake Total 315 ml Balance 315 ml Intake Oral 240 ml IV Total 75 ml # Voids 2 Laboratory Tests 04/29/17 05:15: White Blood Count 5.1, Red Blood Count 3.12L, Hemoglobin 9.7L, Hematocrit 31.1L , Mean Corpuscular Volume 100H, Mean Corpuscular Hemoglobin 31.0, Mean Corpuscular Hemoglobin Concent 31.1L, Red Cell Distribution Width 15.1H, Platelet Count 148L, Mean Platelet Volume 7.8, Neutrophils (%) (Auto) 55.8, Lymphocytes (%) (Auto) 35.9, Monocytes (%) (Auto) 6.6, Eosinophils (%) (Auto) 0.5, Basophils (%) (Auto) 1.2, Sodium Level 137, Potassium Level 4.0, Chloride Level 100, Carbon Dioxide Level 30, Anion Gap 7, Blood Urea Nitrogen 11, Creatinine 1.0, Estimat Glomerular Filtration Rate > 60, Glucose Level 278H, Calcium Level 8.0L, Total Bilirubin 0.5, Aspartate Amino Transf (AST/SGOT) 29, Alanine Aminotransferase (ALT/SGPT) 57, Alkaline Phosphatase 105, Total Protein 6.5, Albumin 2.7L, Globulin 3.8, Albumin/Globulin Ratio 0.7L, Amylase Level 173H , Lipase 1073H Height (Feet): 5 Height (Inches): 4.00 Weight (Pounds): 129 Cardiovascular: normal rate Respiratory/Chest: lungs clear Extremities: other - no edema CORNELIUS DENSON Apr 29, 2017 14:38
--- NOTE | 2017-04-29 15:10 | Pulmonology Progress Note ---
Assessment/Plan Problems: (1) Diabetic ketoacidosis, type I (2) HTN (hypertension) (3) Major depression Assessment/Plan improving advance diet check BS all consult reviewed Subjective ROS Limited/Unobtainable: No Constitutional: Reports: no symptoms HEENT: Repors: no symptoms Respiratory: Reports: no symptoms Allergies: Coded Allergies: No Known Allergies (Unverified , 04/24/14) Objective Last 24 Hour Vital Signs Date Time Temp Pulse Resp B/P (MAP) Pulse Ox O2 Delivery O2 Flow Rate FiO2 04/29/17 12:00 96.7 89 18 154/92 95 Room Air 04/29/17 08:40 90 141/78 04/29/17 08:00 97.9 104 20 159/91 100 Room Air 04/29/17 07:42 Room Air 04/29/17 07:41 97 Room Air 04/29/17 05:13 83 143/80 04/29/17 05:08 97.3 04/29/17 04:41 97.3 92 20 168/94 98 Room Air 04/29/17 00:19 97.3 86 20 126/62 94 Room Air 04/28/17 20:10 97 Room Air 04/28/17 20:10 Room Air 04/28/17 20:00 97.9 83 21 108/65 94 Room Air 04/28/17 16:00 98.1 89 19 138/80 94 Room Air Intake and Output 04/29/17 04/30/17 19:00 07:00 Intake Total 315 ml Balance 315 ml Intake Oral 240 ml IV Total 75 ml # Voids 2 Objective HEENT: atraumatic, normocephalic Lungs: clear Heart: HR/BP stable Abdomen: soft, active bowel sounds Extremities: no C/C/E, edema Laboratory Tests 04/29/17 05:15: White Blood Count 5.1, Red Blood Count 3.12L, Hemoglobin 9.7L, Hematocrit 31.1L , Mean Corpuscular Volume 100H, Mean Corpuscular Hemoglobin 31.0, Mean Corpuscular Hemoglobin Concent 31.1L, Red Cell Distribution Width 15.1H, Platelet Count 148L, Mean Platelet Volume 7.8, Neutrophils (%) (Auto) 55.8, Lymphocytes (%) (Auto) 35.9, Monocytes (%) (Auto) 6.6, Eosinophils (%) (Auto) 0.5, Basophils (%) (Auto) 1.2, Sodium Level 137, Potassium Level 4.0, Chloride Level 100, Carbon Dioxide Level 30, Anion Gap 7, Blood Urea Nitrogen 11, Creatinine 1.0, Estimat Glomerular Filtration Rate > 60, Glucose Level 278H, Calcium Level 8.0L, Total Bilirubin 0.5, Aspartate Amino Transf (AST/SGOT) 29, Alanine Aminotransferase (ALT/SGPT) 57, Alkaline Phosphatase 105, Total Protein 6.5, Albumin 2.7L, Globulin 3.8, Albumin/Globulin Ratio 0.7L, Amylase Level 173H , Lipase 1073H Current Medications Medications (Trade) Dose Ordered Sig/Lizbeth Route PRN Reason Start Time Stop Time Status Last Admin Dose Admin Acetaminophen (Tylenol) 650 mg Q4H PRN ORAL fever 04/27/17 15:30 05/25/17 19:29 Al Hydroxide/Mg Hydroxide (Mylanta II) 30 ml Q6H PRN ORAL dyspepsia 04/27/17 13:30 05/25/17 19:29 Amlodipine Besylate (Norvasc) 10 mg DAILY ORAL 04/28/17 09:00 05/26/17 10:44 04/29/17 08:40 Ceftriaxone Sodium 1 gm/ Dextrose 55 ml @ 110 mls/hr Q24H IVPB 04/27/17 16:00 05/03/17 15:59 04/28/17 15:29 Clonidine HCl (Catapres) 0.1 mg Q4H PRN ORAL sbp > 160 04/27/17 15:30 05/25/17 19:29 Clotrimazole (Gyne-Lotrimin) 1 applic BEDTIME VAGIN 04/28/17 21:00 05/28/17 20:59 04/28/17 20:30 Dextrose (Dextrose 50%) STAT PRN IV Hypoglycemia 04/28/17 07:45 05/27/17 07:44 Diphenhydramine HCl (Benadryl) 25 mg Q6H PRN ORAL Itching/Pruritis 04/27/17 13:30 05/25/17 19:29 Heparin Sodium (Porcine) (Heparin 5000 units/ml) 5,000 units EVERY 12 HOURS SUBQ 04/27/17 21:00 05/25/17 10:44 Hydromorphone HCl (Dilaudid) 1 mg Q4H PRN IVP For Pain 04/27/17 14:30 05/03/17 10:29 04/29/17 13:28 Insulin Aspart (NovoLOG) BEFORE MEALS AND HS SUBQ 04/27/17 16:30 05/25/17 20:59 04/29/17 06:28 Insulin Aspart (NovoLOG) 4 units NOVOTIAC SUBQ 04/27/17 16:50 05/27/17 08:14 04/29/17 12:18 Insulin Detemir (Levemir) 14 units DAILY SUBQ 04/28/17 09:00 05/27/17 08:59 04/29/17 08:46 Nitroglycerin (Ntg) 0.4 mg Q 5MINS PRN SL Prn Chest Pain 04/27/17 12:00 05/25/17 19:29 Ondansetron HCl (Zofran) 4 mg Q6H PRN IVP Nausea & Vomiting 04/27/17 13:30 05/25/17 19:29 Pantoprazole (Protonix) 40 mg DAILY ORAL 04/28/17 09:00 05/26/17 14:29 04/29/17 08:40 Polyethylene Glycol (Miralax) 17 gm HSPRN PRN ORAL Constipation 04/27/17 19:30 05/25/17 19:29 Pregabalin (Lyrica) 50 mg BID ORAL 04/27/17 18:00 05/26/17 10:44 04/29/17 08:42 Sodium Chloride 1,000 ml @ 75 mls/hr [id number] IV 04/27/17 12:00 05/01/17 06:59 04/29/17 03:11 Temazepam (Restoril) 15 mg HSPRN PRN ORAL Insomnia 04/27/17 19:30 05/02/17 19:29 VANESSA SAGASTUME Apr 29, 2017 15:10
[2017-04-29] MEDS: cefTRIAXone 1 GM in D5W 55 ML IVPB SCH (16:46)
[2017-04-29] MEDS: Clotrimazole 1% Vaginal Cr 45gm VAGIN SCH (21:05)
[2017-04-30] VITALS: BP 169/97
[2017-04-30] MEDS: NovoLOG Insulin Flexpen SUBQ SCH ×7 (00:05→16:48)
[2017-04-30 04:07] VITALS: BP 145/97
[2017-04-30 06:44] LABS: BASOPHILS % (AUTO) 0.5 % (0.0-2.0); EOSINOPHILS % (AUTO) 1.2 % (0.0-3.0); LYMPHOCYTES % (AUTO) 22.4 % (20.0-45.0); MEAN CORPUSCULAR HEMOGLOBIN 32.3 PG (27.0-31.0); MEAN CORPUSCULAR HGB CONC 32.6 G/DL (32.0-36.0); MEAN CORPUSCULAR VOLUME 99 FL (80-99); MEAN PLATELET VOLUME 8.5 FL (6.5-10.1); NEUTROPHILS % (AUTO) 69.9 % (45.0-75.0); PLATELET COUNT 169 K/UL (150-450); RED BLOOD COUNT 3.02 M/UL (4.20-5.40); RED CELL DISTRIBUTION WIDTH 14.7 % (11.6-14.8); WHITE BLOOD COUNT 4.9 K/UL (4.8-10.8)
[2017-04-30 07:01] LABS: ANION GAP 9 mmol/L (5-15); CALCIUM 8.6 MG/DL (8.5-10.1); CARBON DIOXIDE 31 MMOL/L (21-32); CHLORIDE 99 MMOL/L (98-107); GLOMERULAR FILTRATION RATE > 60 mL/min (>60); SODIUM 138 MMOL/L (136-145)
[2017-04-30 08:03] LABS: AMYLASE 178 U/L (25-115); LIPASE 1704 U/L (73-393)
[2017-04-30 08:31] VITALS: BP 149/90
[2017-04-30] MEDS: Heparin 5000 units/ml inj SUBQ SCH ×2 (09:00→20:29)
[2017-04-30] MEDS: Lyrica 50mg cap ORAL SCH ×2 (09:01→18:14)
[2017-04-30] MEDS: Levemir Flexpen SUBQ SCH (09:04)
[2017-04-30] MEDS: HYDROmorphone 1mg/ml Carpuject IVP PRN ×2 (09:09→16:12)
[2017-04-30 11:59] VITALS: BP 122/67
[2017-04-30] MEDS ORDERED: 1/2 NS 1000ml IV ONE (13:04)
[2017-04-30] MEDS ORDERED: Tubing IV Secondary IV ONE ×2 (13:04→14:33)
--- NOTE | 2017-04-30 15:06 | Pulmonology Progress Note ---
Assessment/Plan Problems: (1) Diabetic ketoacidosis, type I (2) HTN (hypertension) (3) Major depression Assessment/Plan improving advance diet check BS all consult reviewed Levemir 14 units daily Novolog 4 units ac tid + SSI Subjective Constitutional: Reports: no symptoms HEENT: Repors: no symptoms Respiratory: Reports: no symptoms Allergies: Coded Allergies: No Known Allergies (Unverified , 04/24/14) Objective Last 24 Hour Vital Signs Date Time Temp Pulse Resp B/P (MAP) Pulse Ox O2 Delivery O2 Flow Rate FiO2 04/30/17 11:59 97.9 89 18 122/67 95 Room Air 04/30/17 09:39 98.1 04/30/17 09:02 103 149/90 04/30/17 08:31 98.1 103 18 149/90 98 Room Air 04/30/17 07:10 98 Room Air 04/30/17 07:10 Room Air 04/30/17 04:07 97.9 100 21 145/97 94 Room Air 04/30/17 00:00 97.0 98 20 169/97 98 Room Air 04/29/17 23:54 169/92 04/29/17 20:15 97.3 96 20 171/92 96 Room Air 04/29/17 19:15 Nasal Cannula 2.0 28 04/29/17 19:15 99 Nasal Cannula 2.0 28 04/29/17 16:00 97.3 74 20 113/61 93 Room Air Intake and Output 04/30/17 05/01/17 19:00 07:00 Intake Total 650 ml Balance 650 ml Intake Oral 650 ml # Voids 3 Objective HEENT: atraumatic, normocephalic Lungs: clear Heart: HR/BP stable Abdomen: soft, active bowel sounds Extremities: no C/C/E, edema Laboratory Tests 04/30/17 05:10: White Blood Count 4.9, Red Blood Count 3.02L, Hemoglobin 9.7L, Hematocrit 29.9L , Mean Corpuscular Volume 99, Mean Corpuscular Hemoglobin 32.3H, Mean Corpuscular Hemoglobin Concent 32.6, Red Cell Distribution Width 14.7, Platelet Count 169, Mean Platelet Volume 8.5, Neutrophils (%) (Auto) 69.9, Lymphocytes (% ) (Auto) 22.4, Monocytes (%) (Auto) 6.0, Eosinophils (%) (Auto) 1.2, Basophils ( %) (Auto) 0.5, Sodium Level 138, Potassium Level 4.0, Chloride Level 99, Carbon Dioxide Level 31, Anion Gap 9, Blood Urea Nitrogen 11, Creatinine 1.0, Estimat Glomerular Filtration Rate > 60, Glucose Level 328H, Calcium Level 8.6, Phosphorus Level 2.3L, Amylase Level 178H, Lipase 1704H Current Medications Medications (Trade) Dose Ordered Sig/Lizbeth Route PRN Reason Start Time Stop Time Status Last Admin Dose Admin Acetaminophen (Tylenol) 650 mg Q4H PRN ORAL fever 04/27/17 15:30 05/25/17 19:29 Al Hydroxide/Mg Hydroxide (Mylanta II) 30 ml Q6H PRN ORAL dyspepsia 04/27/17 13:30 05/25/17 19:29 Amlodipine Besylate (Norvasc) 10 mg DAILY ORAL 04/28/17 09:00 05/26/17 10:44 04/30/17 09:02 Ceftriaxone Sodium 1 gm/ Dextrose 55 ml @ 110 mls/hr Q24H IVPB 04/27/17 16:00 05/03/17 15:59 04/29/17 16:46 Clonidine HCl (Catapres) 0.1 mg Q4H PRN ORAL sbp > 160 04/27/17 15:30 05/25/17 19:29 04/29/17 23:54 Clotrimazole (Gyne-Lotrimin) 1 applic BEDTIME VAGIN 04/28/17 21:00 05/28/17 20:59 04/29/17 21:05 Dextrose (Dextrose 50%) STAT PRN IV Hypoglycemia 04/28/17 07:45 05/27/17 07:44 04/29/17 16:07 Diphenhydramine HCl (Benadryl) 25 mg Q6H PRN ORAL Itching/Pruritis 04/27/17 13:30 05/25/17 19:29 Heparin Sodium (Porcine) (Heparin 5000 units/ml) 5,000 units EVERY 12 HOURS SUBQ 04/27/17 21:00 05/25/17 10:44 Hydromorphone HCl (Dilaudid) 1 mg Q4H PRN IVP For Pain 04/27/17 14:30 05/03/17 10:29 04/30/17 09:09 Insulin Aspart (NovoLOG) BEFORE MEALS AND HS SUBQ 04/27/17 16:30 05/25/17 20:59 04/30/17 12:15 Insulin Aspart (NovoLOG) 4 units NOVOTIAC SUBQ 04/27/17 16:50 05/27/17 08:14 04/30/17 12:14 Insulin Detemir (Levemir) 14 units DAILY SUBQ 04/28/17 09:00 05/27/17 08:59 04/30/17 09:04 Nitroglycerin (Ntg) 0.4 mg Q 5MINS PRN SL Prn Chest Pain 04/27/17 12:00 05/25/17 19:29 Ondansetron HCl (Zofran) 4 mg Q6H PRN IVP Nausea & Vomiting 04/27/17 13:30 05/25/17 19:29 Pantoprazole (Protonix) 40 mg DAILY ORAL 04/28/17 09:00 05/26/17 14:29 04/30/17 09:01 Polyethylene Glycol (Miralax) 17 gm HSPRN PRN ORAL Constipation 04/27/17 19:30 05/25/17 19:29 Pregabalin (Lyrica) 50 mg BID ORAL 04/27/17 18:00 05/26/17 10:44 04/30/17 09:01 Sodium Chloride 1,000 ml @ 75 mls/hr [id number] IV 04/27/17 12:00 05/01/17 06:59 04/30/17 06:29 Temazepam (Restoril) 15 mg HSPRN PRN ORAL Insomnia 04/27/17 19:30 05/02/17 19:29 04/30/17 02:22 VANESSA SAGASTUME Apr 30, 2017 15:06
[2017-04-30 15:21] LABS: CALCIUM 7.7 mg/dL (8.7-10.2); PTH INTACT 11 pg/mL (15-65)
[2017-04-30] MEDS: cefTRIAXone 1 GM in D5W 55 ML IVPB SCH (16:11)
[2017-04-30 16:33] VITALS: BP 148/80
--- NOTE | 2017-04-30 16:40 | Internal Med Progress Note ---
Subjective Date of Service: Apr 30, 2017 Physician Name Christos Jacobsen Attending Physician Aries Hardin MD Current Medications Medications (Trade) Dose Ordered Sig/Lizbeth Route PRN Reason Start Time Stop Time Status Last Admin Dose Admin Acetaminophen (Tylenol) 650 mg Q4H PRN ORAL fever 04/27/17 15:30 05/25/17 19:29 Al Hydroxide/Mg Hydroxide (Mylanta II) 30 ml Q6H PRN ORAL dyspepsia 04/27/17 13:30 05/25/17 19:29 Amlodipine Besylate (Norvasc) 10 mg DAILY ORAL 04/28/17 09:00 05/26/17 10:44 04/30/17 09:02 Ceftriaxone Sodium 1 gm/ Dextrose 55 ml @ 110 mls/hr Q24H IVPB 04/27/17 16:00 05/03/17 15:59 04/30/17 16:11 Clonidine HCl (Catapres) 0.1 mg Q4H PRN ORAL sbp > 160 04/27/17 15:30 05/25/17 19:29 04/29/17 23:54 Clotrimazole (Gyne-Lotrimin) 1 applic BEDTIME VAGIN 04/28/17 21:00 05/28/17 20:59 04/29/17 21:05 Dextrose (Dextrose 50%) STAT PRN IV Hypoglycemia 04/28/17 07:45 05/27/17 07:44 04/29/17 16:07 Diphenhydramine HCl (Benadryl) 25 mg Q6H PRN ORAL Itching/Pruritis 04/27/17 13:30 05/25/17 19:29 Heparin Sodium (Porcine) (Heparin 5000 units/ml) 5,000 units EVERY 12 HOURS SUBQ 04/27/17 21:00 05/25/17 10:44 Hydromorphone HCl (Dilaudid) 1 mg Q4H PRN IVP For Pain 04/27/17 14:30 05/03/17 10:29 04/30/17 16:12 Insulin Aspart (NovoLOG) BEFORE MEALS AND HS SUBQ 04/27/17 16:30 05/25/17 20:59 04/30/17 12:15 Insulin Aspart (NovoLOG) 4 units NOVOTIAC SUBQ 04/27/17 16:50 05/27/17 08:14 04/30/17 12:14 Insulin Detemir (Levemir) 14 units DAILY SUBQ 04/28/17 09:00 05/27/17 08:59 04/30/17 09:04 Nitroglycerin (Ntg) 0.4 mg Q 5MINS PRN SL Prn Chest Pain 04/27/17 12:00 05/25/17 19:29 Ondansetron HCl (Zofran) 4 mg Q6H PRN IVP Nausea & Vomiting 04/27/17 13:30 05/25/17 19:29 Pantoprazole (Protonix) 40 mg DAILY ORAL 04/28/17 09:00 05/26/17 14:29 04/30/17 09:01 Polyethylene Glycol (Miralax) 17 gm HSPRN PRN ORAL Constipation 04/27/17 19:30 05/25/17 19:29 Pregabalin (Lyrica) 50 mg BID ORAL 04/27/17 18:00 05/26/17 10:44 04/30/17 09:01 Sodium Chloride 1,000 ml @ 75 mls/hr [id number] IV 04/27/17 12:00 05/01/17 06:59 04/30/17 06:29 Temazepam (Restoril) 15 mg HSPRN PRN ORAL Insomnia 04/27/17 19:30 05/02/17 19:29 04/30/17 02:22 Allergies: Coded Allergies: No Known Allergies (Unverified , 04/24/14) ROS Limited/Unobtainable: No Constitutional: Reports: no symptoms HEENT: Reports: no symptoms Cardiovascular: Reports: no symptoms Respiratory: Reports: no symptoms Gastrointestinal/Abdominal: Reports: abdominal pain Genitourinary: Reports: no symptoms Neurologic/Psychiatric: Reports: no symptoms Subjective 46 YO F admitted with abdominal pain, now pancreatitis. Cover for Int Alejo-Dr Hardin. Objective Last Vital Signs Date Time Temp Pulse Resp B/P (MAP) Pulse Ox O2 Delivery O2 Flow Rate FiO2 04/30/17 11:59 97.9 89 18 122/67 95 Room Air 04/29/17 19:15 2.0 28 Laboratory Tests Test 04/30/17 05:10 White Blood Count 4.9 K/UL (4.8-10.8) Red Blood Count 3.02 M/UL (4.20-5.40) L Hemoglobin 9.7 G/DL (12.0-16.0) L Hematocrit 29.9 % (37.0-47.0) L Mean Corpuscular Volume 99 FL (80-99) Mean Corpuscular Hemoglobin 32.3 PG (27.0-31.0) H Mean Corpuscular Hemoglobin Concent 32.6 G/DL (32.0-36.0) Red Cell Distribution Width 14.7 % (11.6-14.8) Platelet Count 169 K/UL (150-450) Mean Platelet Volume 8.5 FL (6.5-10.1) Neutrophils (%) (Auto) 69.9 % (45.0-75.0) Lymphocytes (%) (Auto) 22.4 % (20.0-45.0) Monocytes (%) (Auto) 6.0 % (1.0-10.0) Eosinophils (%) (Auto) 1.2 % (0.0-3.0) Basophils (%) (Auto) 0.5 % (0.0-2.0) Sodium Level 138 MMOL/L (136-145) Potassium Level 4.0 MMOL/L (3.5-5.1) Chloride Level 99 MMOL/L (98-107) Carbon Dioxide Level 31 MMOL/L (21-32) Anion Gap 9 mmol/L (5-15) Blood Urea Nitrogen 11 mg/dL (7-18) Creatinine 1.0 MG/DL (0.55-1.30) Estimat Glomerular Filtration Rate > 60 mL/min (>60) Glucose Level 328 MG/DL (74-106) H Calcium Level 8.6 MG/DL (8.5-10.1) Phosphorus Level 2.3 MG/DL (2.5-4.9) L Amylase Level 178 U/L (25-115) H Lipase 1704 U/L (73-393) H Intake and Output 04/30/17 05/01/17 19:00 07:00 Intake Total 650 ml Balance 650 ml Intake Oral 650 ml # Voids 3 Objective General Appearance: WD/WN, no apparent distress, alert EENT: PERRL/EOMI, normal ENT inspection, TMs normal Neck: non-tender, normal alignment, supple Cardiovascular: normal peripheral pulses, normal rate, regular rhythm, no gallop/murmur, no JVD Respiratory/Chest: chest wall non-tender, lungs clear, normal breath sounds, no respiratory distress, no accessory muscle use Abdomen: no organomegaly, no mass, decreased bowel sounds, tender Extremities: normal range of motion 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 See endocrinology note. Await nutrition consult. (2) Pancreatitis Assessment & Plan: Await CT abdomen results. See GI note. Tolerating soft diet. (3) HTN (hypertension) Assessment & Plan: Continue norvasc (4) Diabetic gastroparesis Assessment & Plan: See GI note. (5) Renal failure (6) Major depression (7) UTI (urinary tract infection) Assessment & Plan: Kleb pneumo and E.Coli. Cont ceftriaxone. D/C home on oral macrobid Status: progressing Assessment/Plan D/C in am 05/01/17. CHRISTOS JACOBSEN Apr 30, 2017 16:40
--- NOTE | 2017-04-30 16:59 | GI Progress Note ---
Assessment/Plan Problems: (1) Vomiting ICD Codes: R11.10 - Vomiting, unspecified SNOMED: 781874444 (2) Diabetic ketoacidosis, type I ICD Codes: E10.10 - Type 1 diabetes mellituswith ketoacidosis without coma SNOMED: 359302757 (3) Hypoalbuminemia ICD Codes: E88.09 - Other disorders of plasma-protein metabolism, not elsewhere classified SNOMED: 167664672 (4) Diabetes ICD Codes: E11.9 - Type 2 diabetes mellitus without complications SNOMED: 32579077 (5) Anemia ICD Codes: D64.9 - Anemia, unspecified SNOMED: 668037381 (6) Dehydration ICD Codes: E86.0 - Dehydration SNOMED: 83154421 (7) Esophagitis ICD Codes: K20.9 - Esophagitis, unspecified SNOMED: 05010126 (8) GERD (gastroesophageal reflux disease) ICD Codes: K21.9 - Gastro-esophageal reflux disease without esophagitis SNOMED: 506945040 Qualifiers: Qualified Codes: K21.9 - Gastro-esophageal reflux disease without esophagitis (9) Pancreatitis ICD Codes: K85.90 - Acute pancreatitis without necrosis or infection, unspecified SNOMED: 39907390 Qualifiers: Qualified Codes: K85.90 - Acute pancreatitis without necrosis or infection, unspecified Status: stable Status Narrative Discussed with Dr. Patel. Assessment/Plan AP CT reviewed >> - Hepatomegaly with diffuse fatty infiltration. - Some mildly dilated loops of proximal small bowel with decompressed distal small bowel loops. - Normal appendix. - Hazy, ground glass infiltrate noted in the left lower lobe lung. - Small amount of fluid in the pelvis which may be physiologic. No free air. Utox >> marijuana positive ADA diet, tolerating IV hydration pain control fu labs dc planning Subjective Subjective abdominal pain Objective Last 24 Hour Vital Signs Date Time Temp Pulse Resp B/P (MAP) Pulse Ox O2 Delivery O2 Flow Rate FiO2 04/30/17 16:33 96.7 19 148/80 Room Air 04/30/17 11:59 97.9 89 18 122/67 95 Room Air 04/30/17 09:39 98.1 04/30/17 09:02 103 149/90 04/30/17 08:31 98.1 103 18 149/90 98 Room Air 04/30/17 07:10 98 Room Air 04/30/17 07:10 Room Air 04/30/17 04:07 97.9 100 21 145/97 94 Room Air 04/30/17 00:00 97.0 98 20 169/97 98 Room Air 04/29/17 23:54 169/92 04/29/17 20:15 97.3 96 20 171/92 96 Room Air 04/29/17 19:15 Nasal Cannula 2.0 28 04/29/17 19:15 99 Nasal Cannula 2.0 28 Intake and Output 04/30/17 05/01/17 19:00 07:00 Intake Total 650 ml Balance 650 ml Intake Oral 650 ml # Voids 3 Laboratory Tests Test 04/30/17 05:10 White Blood Count 4.9 K/UL (4.8-10.8) Red Blood Count 3.02 M/UL (4.20-5.40) L Hemoglobin 9.7 G/DL (12.0-16.0) L Hematocrit 29.9 % (37.0-47.0) L Mean Corpuscular Volume 99 FL (80-99) Mean Corpuscular Hemoglobin 32.3 PG (27.0-31.0) H Mean Corpuscular Hemoglobin Concent 32.6 G/DL (32.0-36.0) Red Cell Distribution Width 14.7 % (11.6-14.8) Platelet Count 169 K/UL (150-450) Mean Platelet Volume 8.5 FL (6.5-10.1) Neutrophils (%) (Auto) 69.9 % (45.0-75.0) Lymphocytes (%) (Auto) 22.4 % (20.0-45.0) Monocytes (%) (Auto) 6.0 % (1.0-10.0) Eosinophils (%) (Auto) 1.2 % (0.0-3.0) Basophils (%) (Auto) 0.5 % (0.0-2.0) Sodium Level 138 MMOL/L (136-145) Potassium Level 4.0 MMOL/L (3.5-5.1) Chloride Level 99 MMOL/L (98-107) Carbon Dioxide Level 31 MMOL/L (21-32) Anion Gap 9 mmol/L (5-15) Blood Urea Nitrogen 11 mg/dL (7-18) Creatinine 1.0 MG/DL (0.55-1.30) Estimat Glomerular Filtration Rate > 60 mL/min (>60) Glucose Level 328 MG/DL (74-106) H Calcium Level 8.6 MG/DL (8.5-10.1) Phosphorus Level 2.3 MG/DL (2.5-4.9) L Amylase Level 178 U/L (25-115) H Lipase 1704 U/L (73-393) H Height (Feet): 5 Height (Inches): 4.00 Weight (Pounds): 129 General Appearance: WD/WN, no apparent distress, alert, thin Cardiovascular: normal rate Respiratory/Chest: normal breath sounds, no respiratory distress Abdominal Exam: normal bowel sounds, non tender, soft Extremities: normal range of motion, non-tender Venus Hart N.P. Apr 30, 2017 16:59
[2017-04-30 20:00] VITALS: BP 119/58
[2017-04-30] MEDS: Clotrimazole 1% Vaginal Cr 45gm VAGIN SCH (21:50)
--- NOTE | 2017-04-30 22:00 | General Progress Note ---
Assessment/Plan Assessment/Plan Assessment - Enzymatic pancreatitis - Resolved vomiting - DM / DKA - Anemia Recommendations - follow labs - po as tolerated - follow symptoms - d/c planning - outpatient follow up Subjective Allergies: Coded Allergies: No Known Allergies (Unverified , 04/24/14) Subjective feels OK no abdominal pain d/w patient regarding labs and imaging Objective Last 24 Hour Vital Signs Date Time Temp Pulse Resp B/P (MAP) Pulse Ox O2 Delivery O2 Flow Rate FiO2 04/30/17 20:00 97.7 98 20 119/58 97 Room Air 04/30/17 16:33 96.7 19 148/80 Room Air 04/30/17 11:59 97.9 89 18 122/67 95 Room Air 04/30/17 09:39 98.1 04/30/17 09:02 103 149/90 04/30/17 08:31 98.1 103 18 149/90 98 Room Air 04/30/17 07:10 98 Room Air 04/30/17 07:10 Room Air 04/30/17 04:07 97.9 100 21 145/97 94 Room Air 04/30/17 00:00 97.0 98 20 169/97 98 Room Air 04/29/17 23:54 169/92 Intake and Output 04/30/17 05/01/17 19:00 07:00 Intake Total 705 ml Balance 705 ml Intake Oral 650 ml IV Total 55 ml # Voids 3 Laboratory Tests 04/30/17 05:10: White Blood Count 4.9, Red Blood Count 3.02L, Hemoglobin 9.7L, Hematocrit 29.9L , Mean Corpuscular Volume 99, Mean Corpuscular Hemoglobin 32.3H, Mean Corpuscular Hemoglobin Concent 32.6, Red Cell Distribution Width 14.7, Platelet Count 169, Mean Platelet Volume 8.5, Neutrophils (%) (Auto) 69.9, Lymphocytes (% ) (Auto) 22.4, Monocytes (%) (Auto) 6.0, Eosinophils (%) (Auto) 1.2, Basophils ( %) (Auto) 0.5, Sodium Level 138, Potassium Level 4.0, Chloride Level 99, Carbon Dioxide Level 31, Anion Gap 9, Blood Urea Nitrogen 11, Creatinine 1.0, Estimat Glomerular Filtration Rate > 60, Glucose Level 328H, Calcium Level 8.6, Phosphorus Level 2.3L, Amylase Level 178H, Lipase 1704H Height (Feet): 5 Height (Inches): 4.00 Weight (Pounds): 129 Objective WDWN AA woman NCAT supple CTA RRR soft ND NT no edema non focal NENA MAGAÑA Apr 30, 2017 22:00
[2017-05-01] VITALS: BP 158/80
[2017-05-01] MEDS: NovoLOG Insulin Flexpen SUBQ SCH ×6 (00:02→12:34)
[2017-05-01] MEDS ORDERED: NITROFURANTOIN100 M2 ORAL (00:07)
[2017-05-01] MEDS: HYDROmorphone 1mg/ml Carpuject IVP PRN ×2 (01:03→10:31)
[2017-05-01 04:00] VITALS: BP 121/63
[2017-05-01 07:09] LABS: BASOPHILS % (AUTO) 0.5 % (0.0-2.0); EOSINOPHILS % (AUTO) 1.4 % (0.0-3.0); MEAN CORPUSCULAR HEMOGLOBIN 30.6 PG (27.0-31.0); MEAN CORPUSCULAR HGB CONC 30.1 G/DL (32.0-36.0); MEAN CORPUSCULAR VOLUME 102 FL (80-99); MONOCYTES % (AUTO) 6.9 % (1.0-10.0); NEUTROPHILS % (AUTO) 65.2 % (45.0-75.0); PLATELET COUNT 195 K/UL (150-450); RED BLOOD COUNT 3.32 M/UL (4.20-5.40); RED CELL DISTRIBUTION WIDTH 15.1 % (11.6-14.8); WHITE BLOOD COUNT 5.7 K/UL (4.8-10.8)
[2017-05-01 07:24] LABS: ALANINE AMINOTRANSFERASE 42 U/L (12-78); ALBUMIN/GLOBULIN RATIO 0.8 (1.0-2.7); AMYLASE 155 U/L (25-115); ANION GAP 15 mmol/L (5-15); ASPARTATE AMINO TRANSFERASE 26 U/L (15-37); CALCIUM 9.3 MG/DL (8.5-10.1); CARBON DIOXIDE 25 MMOL/L (21-32); CHLORIDE 96 MMOL/L (98-107); CREATININE 1.1 MG/DL (0.55-1.30); GLOMERULAR FILTRATION RATE > 60 mL/min (>60); LIPASE 1740 U/L (73-393); PHOSPHORUS 3.3 MG/DL (2.5-4.9); POTASSIUM 4.5 MMOL/L (3.5-5.1); SODIUM 136 MMOL/L (136-145)
[2017-05-01 08:25] VITALS: BP 149/81
[2017-05-01] MEDS: Lyrica 50mg cap ORAL SCH (08:51)
[2017-05-01] MEDS: Heparin 5000 units/ml inj SUBQ SCH ×2 (08:53→08:59)
[2017-05-01] MEDS: Levemir Flexpen SUBQ SCH (08:54)
[2017-05-01 09:10] LABS: ERYTHROCYTE SEDIMENTATION RATE 86 MM/HR (0-20)
--- NOTE | 2017-05-01 10:35 | GI Progress Note ---
Assessment/Plan Problems: (1) Vomiting ICD Codes: R11.10 - Vomiting, unspecified SNOMED: 269917385 (2) Diabetic ketoacidosis, type I ICD Codes: E10.10 - Type 1 diabetes mellituswith ketoacidosis without coma SNOMED: 110057772 (3) Hypoalbuminemia ICD Codes: E88.09 - Other disorders of plasma-protein metabolism, not elsewhere classified SNOMED: 490789459 (4) Diabetes ICD Codes: E11.9 - Type 2 diabetes mellitus without complications SNOMED: 58591467 (5) Anemia ICD Codes: D64.9 - Anemia, unspecified SNOMED: 235833278 (6) Dehydration ICD Codes: E86.0 - Dehydration SNOMED: 39837866 (7) Esophagitis ICD Codes: K20.9 - Esophagitis, unspecified SNOMED: 66877983 (8) GERD (gastroesophageal reflux disease) ICD Codes: K21.9 - Gastro-esophageal reflux disease without esophagitis SNOMED: 454062748 Qualifiers: Qualified Codes: K21.9 - Gastro-esophageal reflux disease without esophagitis (9) Pancreatitis ICD Codes: K85.90 - Acute pancreatitis without necrosis or infection, unspecified SNOMED: 69241065 Qualifiers: Qualified Codes: K85.90 - Acute pancreatitis without necrosis or infection, unspecified Status: stable Status Narrative Discussed with Dr. Patel. Assessment/Plan AP CT reviewed >> - Hepatomegaly with diffuse fatty infiltration. - Some mildly dilated loops of proximal small bowel with decompressed distal small bowel loops. - Normal appendix. - Hazy, ground glass infiltrate noted in the left lower lobe lung. - Small amount of fluid in the pelvis which may be physiologic. No free air. Utox >> marijuana positive ADA diet, tolerating IV hydration pain control fu labs dc planning Subjective Subjective abdominal pain improved Objective Last 24 Hour Vital Signs Date Time Temp Pulse Resp B/P (MAP) Pulse Ox O2 Delivery O2 Flow Rate FiO2 05/01/17 08:51 96 149/81 05/01/17 08:25 97.9 96 18 149/81 100 Room Air 05/01/17 04:00 97.7 91 20 121/63 96 Room Air 05/01/17 01:33 97.8 05/01/17 00:00 97.8 98 20 158/80 93 Room Air 04/30/17 20:00 97.7 98 20 119/58 97 Room Air 04/30/17 19:20 99 Nasal Cannula 2.0 28 04/30/17 19:20 Nasal Cannula 2.0 28 04/30/17 16:33 96.7 19 148/80 Room Air 04/30/17 11:59 97.9 89 18 122/67 95 Room Air Laboratory Tests Test 05/01/17 04:35 White Blood Count 5.7 K/UL (4.8-10.8) Red Blood Count 3.32 M/UL (4.20-5.40) L Hemoglobin 10.2 G/DL (12.0-16.0) L Hematocrit 33.8 % (37.0-47.0) L Mean Corpuscular Volume 102 FL (80-99) H Mean Corpuscular Hemoglobin 30.6 PG (27.0-31.0) Mean Corpuscular Hemoglobin Concent 30.1 G/DL (32.0-36.0) L Red Cell Distribution Width 15.1 % (11.6-14.8) H Platelet Count 195 K/UL (150-450) Mean Platelet Volume 7.0 FL (6.5-10.1) Neutrophils (%) (Auto) 65.2 % (45.0-75.0) Lymphocytes (%) (Auto) 26.0 % (20.0-45.0) Monocytes (%) (Auto) 6.9 % (1.0-10.0) Eosinophils (%) (Auto) 1.4 % (0.0-3.0) Basophils (%) (Auto) 0.5 % (0.0-2.0) Erythrocyte Sedimentation Rate 86 MM/HR (0-20) H Sodium Level 136 MMOL/L (136-145) Potassium Level 4.5 MMOL/L (3.5-5.1) Chloride Level 96 MMOL/L (98-107) L Carbon Dioxide Level 25 MMOL/L (21-32) Anion Gap 15 mmol/L (5-15) Blood Urea Nitrogen 19 mg/dL (7-18) H Creatinine 1.1 MG/DL (0.55-1.30) Estimat Glomerular Filtration Rate > 60 mL/min (>60) Glucose Level 531 MG/DL (74-106) #*H Calcium Level 9.3 MG/DL (8.5-10.1) Phosphorus Level 3.3 MG/DL (2.5-4.9) Magnesium Level 2.0 MG/DL (1.8-2.4) Total Bilirubin 0.5 MG/DL (0.2-1.0) Aspartate Amino Transf (AST/SGOT) 26 U/L (15-37) Alanine Aminotransferase (ALT/SGPT) 42 U/L (12-78) Alkaline Phosphatase 136 U/L (46-116) H C-Reactive Protein, Quantitative 1.0 mg/dL (0.00-0.90) H Total Protein 7.0 G/DL (6.4-8.2) Albumin 3.0 G/DL (3.4-5.0) L Globulin 4.0 g/dL Albumin/Globulin Ratio 0.8 (1.0-2.7) L Amylase Level 155 U/L (25-115) H Lipase 1740 U/L (73-393) H Height (Feet): 5 Height (Inches): 4.00 Weight (Pounds): 129 General Appearance: WD/WN, no apparent distress, alert Cardiovascular: normal rate Respiratory/Chest: normal breath sounds, no respiratory distress Abdominal Exam: normal bowel sounds, non tender, soft Extremities: normal range of motion, non-tender Venus Hart N.P. May 01, 2017 10:35
[2017-05-01 11:55] VITALS: BP 147/77
--- NOTE | 2017-05-01 16:08 | Pulmonology Progress Note ---
Assessment/Plan Problems: (1) Diabetic ketoacidosis, type I (2) HTN (hypertension) (3) Major depression Assessment/Plan improving advance diet, tolerating very well check BS all consult reviewed Levemir 14 units daily Novolog 4 units ac tid + SSI dc home with close f/u as outpatient Subjective ROS Limited/Unobtainable: No Constitutional: Reports: no symptoms HEENT: Repors: no symptoms Respiratory: Reports: no symptoms Allergies: Coded Allergies: No Known Allergies (Unverified , 04/24/14) Objective Last 24 Hour Vital Signs Date Time Temp Pulse Resp B/P (MAP) Pulse Ox O2 Delivery O2 Flow Rate FiO2 05/01/17 11:55 98.1 93 18 147/77 100 Room Air 05/01/17 11:01 97.9 05/01/17 08:51 96 149/81 05/01/17 08:25 97.9 96 18 149/81 100 Room Air 05/01/17 04:00 97.7 91 20 121/63 96 Room Air 05/01/17 00:00 97.8 98 20 158/80 93 Room Air 04/30/17 20:00 97.7 98 20 119/58 97 Room Air 04/30/17 19:20 99 Nasal Cannula 2.0 28 04/30/17 19:20 Nasal Cannula 2.0 28 04/30/17 16:33 96.7 19 148/80 Room Air Objective HEENT: atraumatic, normocephalic Lungs: clear Heart: HR/BP stable Abdomen: soft, active bowel sounds Extremities: no C/C/E, edema Laboratory Tests 05/01/17 04:35: White Blood Count 5.7, Red Blood Count 3.32L, Hemoglobin 10.2L, Hematocrit 33.8L , Mean Corpuscular Volume 102H, Mean Corpuscular Hemoglobin 30.6, Mean Corpuscular Hemoglobin Concent 30.1L, Red Cell Distribution Width 15.1H, Platelet Count 195, Mean Platelet Volume 7.0, Neutrophils (%) (Auto) 65.2, Lymphocytes (%) (Auto) 26.0, Monocytes (%) (Auto) 6.9, Eosinophils (%) (Auto) 1.4, Basophils (%) (Auto) 0.5, Erythrocyte Sedimentation Rate 86H, Sodium Level 136, Potassium Level 4.5, Chloride Level 96L, Carbon Dioxide Level 25, Anion Gap 15, Blood Urea Nitrogen 19H, Creatinine 1.1, Estimat Glomerular Filtration Rate > 60, Glucose Level 531#*H, Calcium Level 9.3, Phosphorus Level 3.3, Magnesium Level 2.0, Total Bilirubin 0.5, Aspartate Amino Transf (AST/SGOT) 26, Alanine Aminotransferase (ALT/SGPT) 42, Alkaline Phosphatase 136H, C-Reactive Protein, Quantitative 1.0H, Total Protein 7.0, Albumin 3.0L, Globulin 4.0, Albumin/Globulin Ratio 0.8L, Amylase Level 155H, Lipase 1740H VANESSA SAGASTUME May 01, 2017 16:08
--- NOTE | 2017-05-01 17:15 | Discharge Summary ---
Discharge Summary Hospital Course Date of Admission Apr 25, 2017 at 18:17 Date of Discharge May 01, 2017 at 15:00 Admitting Diagnosis pancreatitis, ARF HPI Tricia Carpio is a 46 year old female who was admitted on Apr 25, 2017 at 18: 17 for Pancreatitis Hospital Course Discharge Discharge Disposition Patient was discharged to Home (01) Discharge Diagnoses: Aries Hardin MD May 01, 2017 17:15
--- NOTE | 2017-05-01 20:56 | General Progress Note ---
Assessment/Plan Assessment/Plan Assessment - Enzymatic pancreatitis, but completely nontender abd at this time - Resolved vomiting - DM / DKA - Anemia Recommendations - follow labs - po as tolerated - follow symptoms - d/c planning - outpatient follow up Subjective Allergies: Coded Allergies: No Known Allergies (Unverified , 04/24/14) Subjective feels OK no abdominal pain d/w patient regarding labs and imaging advised to f/u with me as outpt Objective Last 24 Hour Vital Signs Date Time Temp Pulse Resp B/P (MAP) Pulse Ox O2 Delivery O2 Flow Rate FiO2 05/01/17 11:55 98.1 93 18 147/77 100 Room Air 05/01/17 11:01 97.9 05/01/17 08:51 96 149/81 05/01/17 08:25 97.9 96 18 149/81 100 Room Air 05/01/17 04:00 97.7 91 20 121/63 96 Room Air 05/01/17 00:00 97.8 98 20 158/80 93 Room Air Laboratory Tests 05/01/17 04:35: White Blood Count 5.7, Red Blood Count 3.32L, Hemoglobin 10.2L, Hematocrit 33.8L , Mean Corpuscular Volume 102H, Mean Corpuscular Hemoglobin 30.6, Mean Corpuscular Hemoglobin Concent 30.1L, Red Cell Distribution Width 15.1H, Platelet Count 195, Mean Platelet Volume 7.0, Neutrophils (%) (Auto) 65.2, Lymphocytes (%) (Auto) 26.0, Monocytes (%) (Auto) 6.9, Eosinophils (%) (Auto) 1.4, Basophils (%) (Auto) 0.5, Erythrocyte Sedimentation Rate 86H, Sodium Level 136, Potassium Level 4.5, Chloride Level 96L, Carbon Dioxide Level 25, Anion Gap 15, Blood Urea Nitrogen 19H, Creatinine 1.1, Estimat Glomerular Filtration Rate > 60, Glucose Level 531#*H, Calcium Level 9.3, Phosphorus Level 3.3, Magnesium Level 2.0, Total Bilirubin 0.5, Aspartate Amino Transf (AST/SGOT) 26, Alanine Aminotransferase (ALT/SGPT) 42, Alkaline Phosphatase 136H, C-Reactive Protein, Quantitative 1.0H, Total Protein 7.0, Albumin 3.0L, Globulin 4.0, Albumin/Globulin Ratio 0.8L, Amylase Level 155H, Lipase 1740H Height (Feet): 5 Height (Inches): 4.00 Weight (Pounds): 129 Objective WDWN AA woman NCAT supple CTA RRR soft ND NT no edema non focal NENA MAGAÑA May 01, 2017 20:56
--- NOTE | 2017-05-02 06:31 | Discharge Summary ---
DATE OF ADMISSION: 04/25/2017 DATE OF DISCHARGE: 05/01/2017 HISTORY OF PRESENT ILLNESS: This is a 46-year-old, female with past medical history significant for diabetes type 1, insulin dependent, chronic kidney disease, hypertension, major depression, diabetic gastroparesis and acid reflux with a prior history of multiple DKA, who presented to the hospital complaining of abdominal pain associated with nausea and vomiting. Shortly after initial evaluation, the patient was admitted to the hospital for possible pancreatitis with acute metabolic acidosis. Throughout the hospital course, the patient was followed with Dr. Patel from Gastroenterology, Dr. Judd Hayes from Endocrine, Dr. Paredes from Pulmonary Critical Care and Dr. Kulwinder Marie from Nephrology. The patient was initially admitted to ICU. IV hydration and NPO was worked up for infection possible urinary tract infection. Urinalysis was noted for Klebsiella as well as E. coli susceptible to ceftriaxone, which she was started on initially and the patient's status improved and subsequently was discharged from ICU to medical floor. The patient was able to tolerate p.o. intake and subsequently, the patient was discharged home today to follow up my office within one week. FINAL DIAGNOSES: 1. Nausea, vomiting possibly due to pancreatitis. 2. Diabetic type 1. 3. Hypertension. 4. Diabetic gastroparesis. 5. Acute kidney injury and chronic kidney failure. 6. Major depression. 7. Urinary tract infection with Klebsiella pneumonia as well as Escherichia coli. MEDICATION ON DISCHARGE: Continue discharge medication list. ACTIVITY: As tolerated. DIET: Cardiac diabetic diet. FOLLOWUP: The patient was advised to follow up with Dr. Hayes for diabetic care. Aries Hardin M.D. DR: JAI JOB#: [id number] CC:
--- NOTE | 2017-05-05 16:19 | Cardiology Report ---
APPROVED REPORT EKG Measurement Heart [id number] Sinus tachycardia Possible Left atrial enlargement Abnormal ECG
[2017-05-06] MEDS ORDERED: HYSINGLA ER20 MG PO (00:25)
[2017-05-06] MEDS ORDERED: LISINOPRIL5 MG ORAL (00:25)
[2017-05-06] MEDS ORDERED: AMOXICILLI200 MG/5 M PO (00:25)
[2017-05-06] MEDS ORDERED: INSULIN (00:25)
[2017-05-06] MEDS ORDERED: HYDROCHLOROTH12.5 M2 ORAL (00:25)
--- NOTE | 2017-05-13 10:20 | Diagnostic Imaging Report ---
APPROVED REPORT CPT Code: 12075 Present Symptoms Comments: Pain BILATERAL: Imaging reveals a patent deep venous system bilaterally. There is no evidence of thrombus within the femoral, popliteal or tibial segments. The greater saphenous veins are also within normal limits. Doppler indicates normal spontaneous flow within these segments.
== END 2017-05-01 15:00 | disposition home or self-care (01) | DRG 438 ==
LOC: EDSEX 15:26 → EDBD 15:26 → EMR 15:55 → 3E 18:17 → EDBEDREQ 19:55 → ICU 04-26 09:15 → 4E 04-27 11:40
DX: K85.90 Acute pancreatitis without necrosis or infection, unspecified (principal); E10.10 Type 1 diabetes mellitus with ketoacidosis without coma; N17.9 Acute kidney failure, unspecified; K31.84 Gastroparesis; E10.22 Type 1 diabetes mellitus with diabetic chronic kidney disease; E88.09 Other disorders of plasma-protein metabolism, not elsewhere classified; E10.43 Type 1 diabetes mellitus with diabetic autonomic (poly)neuropathy; N39.0 Urinary tract infection, site not specified; K21.9 Gastro-esophageal reflux disease without esophagitis; D63.1 Anemia in chronic kidney disease; K20.9 Esophagitis, unspecified; E86.0 Dehydration; E78.1 Pure hyperglyceridemia; I12.9 Hypertensive chronic kidney disease with stage 1 through stage 4 chronic kidney disease, or unspecified chronic kidney disease; N18.9 Chronic kidney disease, unspecified; F32.9 Major depressive disorder, single episode, unspecified; Z79.4 Long term (current) use of insulin; Z91.14 Patient's other noncompliance with medication regimen; B96.20 Unspecified Escherichia coli [E. coli] as the cause of diseases classified elsewhere; B96.1 Klebsiella pneumoniae [K. pneumoniae] as the cause of diseases classified elsewhere
CPT/HCPCS: 36415; 36600; 74176; 76700; 80048; 80053; 80061; 80307; 81003; 81025; 82009; 82140; 82150; 82803; 82947; 82962; 83036; 83540; 83550; 83690; 83735; 83970; 84100; 84443; 85007; 85025; 85610; 85651; 85730; 86140; 87086; 87181; 93005; 93970; 94760; 99285; J1815; J2405; S5561

== ENCOUNTER 2017-05-05 14:33 | Emergency (ER) | payer OTHER ==
[~2017-05-05] VITALS: Ht 162.6 cm; Wt 54.4 kg
[~2017-05-05 14:33] MED LIST changes: +NITROFURANTOIN100 M2 ORAL
[2017-05-05] MEDS ORDERED: LEVEMIR FL100 UNIT/1 SUBQ (14:51)
--- NOTE | 2017-05-05 14:57 | Emergency Room Report ---
History of Present Illness General Chief Complaint: Abnormal Labs Source: Patient, Medical Record Present Illness HPI 46-year-old female walked in with concern for her hyperglycemia. Patient is known type I insulin-dependent diabetic, with recent admission to ICU for acute renal failure and suspected diabetic ketoacidosis. Was just discharged this past week. States she ran out of of the Levemir insulin and she takes at night , did not take last night. This morning she noted that she was feeling nauseated checked her sugar and machine read as "high". Patient gave herself short-acting insulin and machine glucose as 500. Patient took another 10 units of short-acting insulin couple hours ago and in the ER the glucose is 224. She denies chest pain, shortness of breath, abdominal pain, polyuria, dysuria or diarrhea. She is complaining of mild nausea. Patient is well-known to this hospital for repeat visits for elevated sugar, DKA, and known history of noncompliance with medication. Allergies: Coded Allergies: No Known Allergies (Unverified , 04/24/14) Patient History Past Medical History: DM Past Surgical History: none Pertinent Family History: none Social History: Denies: smoking, alcohol use, drug use Now: No Immunizations: UTD Reviewed Nursing Documentation: PMH: Agreed, PSxH: Agreed Nursing Documentation-PMH Hx Cardiac Problems: Yes Hx Hypertension: Yes Hx Pacemaker: No Hx Diabetes: Yes Hx Cancer: No Hx Gastrointestinal Problems: Yes - GERD Hx Neurological Problems: No Hx Concentration Difficulty: No Review of Systems All Other Systems: negative except mentioned in HPI Physical Exam Vital Signs Date Time Temp Pulse Resp B/P (MAP) Pulse Ox O2 Delivery O2 Flow Rate FiO2 05/05/17 14:37 97.9 113 20 162/77 99 Room Air Sp02 EP Interpretation: reviewed, normal General Appearance: normal inspection, well appearing, no apparent distress, alert, GCS 15, non-toxic Head: normocephalic, atraumatic Eyes: bilateral eye PERRL, bilateral eye EOMI ENT: normal ENT inspection, hearing grossly normal, normal voice Neck: normal inspection, full range of motion, supple, no bony tend Respiratory: normal inspection, lungs clear, normal breath sounds, no respiratory distress, no retraction, no wheezing Cardiovascular #1: regular rate, rhythm, no edema Gastrointestinal: normal inspection, normal bowel sounds, non tender, soft, no guarding, no hernia Genitourinary: no CVA tenderness Musculoskeletal: normal inspection, back normal, normal range of motion, Dontrell' s Sign negative Neurologic: normal inspection, alert, oriented x3, responsive, power transmission engineer III-XII nml as tested, motor strength/tone normal, speech normal Psychiatric: normal inspection, judgement/insight normal, mood/affect normal Skin: normal inspection, normal color, no rash Lymphatic: normal inspection, no adenopathy Medical Decision Making Diagnostic Impression: Primary Impression: Hyperglycemia Additional Impressions: PERLA (acute kidney injury) Dehydration ER Course 46-year-old female, known insulin-dependent type I diabetic, with nausea, after noncompliance with long acting insulin vital signs stable, afebrile, no focal abdominal pain or tenderness, no other symptoms. Low suspicion for DKA at this time given sugar is 224. And vital signs are stable. Patient is very well-appearing, walking to the ER, is sitting upright in stretcher, talking and cooperative. laboratory work was done and after 2 L of intravenous fluid there was a down trending in the anion gap, glucose went down to 86, and potassium remained normal, and there was also an increase in renal function after adjuration so anion gap more likely due to dehydration and to DKA Patient tolerating by mouth at discharge, was given refill of her prescription for long-acting insulin Disposition: Patient is to be discharged to home. Prescriptions given are Levemir Patient is instructed to follow up with their primary care doctor within 5 days. Strict return precautions discussed with patient such as fever, chills, worsening/severe pain, nausea, vomiting, which may indicate severe illness. Patient verbalizes understanding and agrees with plan. Please note that this Emergency Department Report was dictated using [employer] technology software, occasionally this can lead to erroneous entry secondary to interpretation by the dictation equipment Last Vital Signs Date Time Temp Pulse Resp B/P (MAP) Pulse Ox O2 Delivery O2 Flow Rate FiO2 05/05/17 14:37 97.9 113 20 162/77 99 Room Air Status: improved Disposition: HOME, SELF-CARE Condition: Improved Scripts Insulin Detemir (LEVEMIR FLEXPEN) 100 Unit/1 Ml Insuln.pen 18 UNITS SUBQ QHS, #300 UNITS 0 Refills Prov: DEDRICK EL M.D. 05/05/17 Patient Instructions: Hyperglycemia, [id number] Additional Instructions: - Take Insulin Lantus/Levemir 18U as prescribed at night - Call your doctor ahead of time for refills of medications as needed DEDRICK EL M.D. May 05, 2017 14:57
[2017-05-05 15:19] LABS: ABG PCO2 19.8 mmHg (35.0-45.0)
[2017-05-05 15:20] LABS: ABG ALLEN TEST POSITIVE; ABG BASE EXCESS -16.7
[2017-05-05 15:38] LABS: APPEARANCE,URINE CLEAR; KETONES,URINE 4+ (NEGATIVE); LEUKOCYTE ESTERASE ,URINE NEGATIVE (NEGATIVE); NITRITE,URINE NEGATIVE (NEGATIVE); PH,URINE 5 (4.5-8.0); PROTEIN,URINE 3+ (NEGATIVE); UROBILINOGEN,URINE NORMAL MG/DL (0.0-1.0)
[2017-05-05 16:13] LABS: BACTERIA,URINE OCCASIONAL /HPF; SQUAMOUS EPITHELIAL CELL,UR MODERATE /LPF (NONE/OCC); WBC,URINE 0-2 /HPF (0 - 2)
[2017-05-05 16:26] VITALS: BP 190/93
[2017-05-05 16:32] LABS: ANION GAP 26 mmol/L (5-15); BASOPHILS % (AUTO) 1.9 % (0.0-2.0); CALCIUM 9.2 MG/DL (8.5-10.1); CARBON DIOXIDE 12 MMOL/L (21-32); CHLORIDE 101 MMOL/L (98-107); CREATININE 1.8 MG/DL (0.55-1.30); GLOMERULAR FILTRATION RATE 36.8 mL/min (>60); LYMPHOCYTES % (AUTO) 26.4 % (20.0-45.0); MEAN CORPUSCULAR HEMOGLOBIN 30.8 PG (27.0-31.0); MEAN CORPUSCULAR HGB CONC 30.2 G/DL (32.0-36.0); MEAN CORPUSCULAR VOLUME 102 FL (80-99); MEAN PLATELET VOLUME 5.4 FL (6.5-10.1); MONOCYTES % (AUTO) 7.1 % (1.0-10.0); NEUTROPHILS % (AUTO) 64.6 % (45.0-75.0); PLATELET COUNT 458 K/UL (150-450); POTASSIUM 4.3 MMOL/L (3.5-5.1); RED BLOOD COUNT 3.61 M/UL (4.20-5.40); RED CELL DISTRIBUTION WIDTH 15.7 % (11.6-14.8); SODIUM 139 MMOL/L (136-145); WHITE BLOOD COUNT 7.4 K/UL (4.8-10.8)
[2017-05-05 16:36] LABS: ALANINE AMINOTRANSFERASE 56 U/L (12-78); ALBUMIN/GLOBULIN RATIO 0.8 (1.0-2.7); ASPARTATE AMINO TRANSFERASE 44 U/L (15-37); MAGNESIUM 1.9 MG/DL (1.8-2.4); TOTAL PROTEIN 8.6 G/DL (6.4-8.2)
[2017-05-05 18:30] VITALS: BP 149/49
[2017-05-05 18:32] LABS: ANION GAP 21 mmol/L (5-15); CALCIUM 7.7 MG/DL (8.5-10.1); CARBON DIOXIDE 13 MMOL/L (21-32); CHLORIDE 107 MMOL/L (98-107); CREATININE 1.5 MG/DL (0.55-1.30); GLOMERULAR FILTRATION RATE 45.5 mL/min (>60); POTASSIUM 3.6 MMOL/L (3.5-5.1); SODIUM 141 MMOL/L (136-145)
[2017-05-05 18:37] LABS: ALANINE AMINOTRANSFERASE 37 U/L (12-78); ALBUMIN/GLOBULIN RATIO 0.8 (1.0-2.7); ASPARTATE AMINO TRANSFERASE 26 U/L (15-37); TOTAL PROTEIN 6.3 G/DL (6.4-8.2)
[2017-05-05 19:48] VITALS: BP 134/48
[2017-05-05 19:49] VITALS: BP 134/48
[2017-05-06] MEDS ORDERED: HYDROCHLOROTH12.5 M2 ORAL (00:25)
[2017-05-06] MEDS ORDERED: HYSINGLA ER20 MG PO (00:25)
[2017-05-06] MEDS ORDERED: LISINOPRIL5 MG ORAL (00:25)
[2017-05-06] MEDS ORDERED: INSULIN (00:25)
[2017-05-06] MEDS ORDERED: AMOXICILLI200 MG/5 M PO (00:25)
== END 2017-05-05 20:11 | disposition home or self-care (01) ==
LOC: EMR 15:15
DX: E11.65 Type 2 diabetes mellitus with hyperglycemia (principal); N17.9 Acute kidney failure, unspecified; E86.0 Dehydration; I10 Essential (primary) hypertension; K21.9 Gastro-esophageal reflux disease without esophagitis
CPT/HCPCS: 36415; 36600; 80053; 81003; 82009; 82803; 83735; 85025; 96361; 96374; 99284

== ENCOUNTER 2017-05-06 00:27 | Inpatient (IN) | payer OTHER ==
[~2017-05-06] VITALS: Ht 162.6 cm; Wt 59.0 kg
[2017-05-06] VITALS (26 sets, daily range): BP systolic 99–189; BP diastolic 43–102
[~2017-05-06 00:27] MED LIST changes: +AMOXICILLI200 MG/5 M PO; +HYDROCHLOROTH12.5 M2 ORAL; +HYSINGLA ER20 MG PO; +INSULIN
[2017-05-06] MEDS ORDERED: NS 1000ml 1,600 ML IVLG ONE (00:30)
[2017-05-06] MEDS ORDERED: Morphine Sulfate 4mg/ml Inj IVP ONE (01:00)
--- NOTE | 2017-05-06 01:00 | Emergency Room Report ---
History of Present Illness General Chief Complaint: Generalized Weakness Source: Patient, EMS Present Illness HPI Patient was recently disposition from the hospital presents back with general discomfort shortness of breath And elevated blood glucose patient's Glucose level in the field was high Patient complains of diffuse bodyaches Decreased appetite Increased thirst Patient denies any recent fever Allergies: Coded Allergies: No Known Allergies (Unverified , 04/24/14) Patient History Past Medical History: see triage record Pertinent Family History: none Last Menstrual Period: UNK Reviewed Nursing Documentation: PMH: Agreed, PSxH: Agreed Nursing Documentation-PMH Hx Cardiac Problems: Yes Hx Hypertension: Yes Hx Pacemaker: No Hx Diabetes: Yes Hx Cancer: No Hx Gastrointestinal Problems: Yes - GERD Hx Neurological Problems: No Hx Concentration Difficulty: No Review of Systems All Other Systems: negative except mentioned in HPI Physical Exam Vital Signs Date Time Temp Pulse Resp B/P (MAP) Pulse Ox O2 Delivery O2 Flow Rate FiO2 05/06/17 00:19 97.3 108 18 159/71 100 Room Air Sp02 EP Interpretation: reviewed, normal General Appearance: mild distress - appears uncomfortable Head: normocephalic, atraumatic Eyes: bilateral eye PERRL, bilateral eye EOMI ENT: hearing grossly normal, normal pharynx Neck: full range of motion, supple Respiratory: no retraction, other - Tachypneic otherwise no obvious retractions no crackles or wheezing Cardiovascular #1: regular rate, rhythm, no edema Gastrointestinal: non tender, soft Musculoskeletal: normal inspection Neurologic: normal inspection, alert, oriented x3, responsive, materials recycler III-XII nml as tested Skin: other - dry oral mucosa Lymphatic: no adenopathy Procedures Critical Care Time Critical Care Time 40 minutes for multiple re\re evaluations Clinical findings including findings concerning for life-threatening pathology Not including procedural Medical Decision Making Diagnostic Impression: Primary Impression: Acidosis, metabolic Additional Impression: DKA (diabetic ketoacidoses) ER Course Patient's presentation is concerning for multiple differentials including but not limited to DKA, infectious pathology, acidosis Patient's chemistries very concerning CO2 low with signs of increased acidity Patient is aggressively IV hydrated Insulin along with insulin drip initiated Patient will require ICU admission And Ej is placed in the left external jugular after cleansing and appropriate peripheral IV placement Patient admitted for further care Labs Test 05/06/17 00:40 White Blood Count 7.7 K/UL (4.8-10.8) Red Blood Count 3.18 M/UL (4.20-5.40) Hemoglobin 9.8 G/DL (12.0-16.0) Hematocrit 33.1 % (37.0-47.0) Mean Corpuscular Volume 104 FL (80-99) Mean Corpuscular Hemoglobin 30.9 PG (27.0-31.0) Mean Corpuscular Hemoglobin Concent 29.7 G/DL (32.0-36.0) Red Cell Distribution Width 16.3 % (11.6-14.8) Platelet Count 477 K/UL (150-450) Mean Platelet Volume 5.7 FL (6.5-10.1) Neutrophils (%) (Auto) 76.5 % (45.0-75.0) Lymphocytes (%) (Auto) 17.0 % (20.0-45.0) Monocytes (%) (Auto) 5.8 % (1.0-10.0) Eosinophils (%) (Auto) 0.1 % (0.0-3.0) Basophils (%) (Auto) 0.7 % (0.0-2.0) Sodium Level 135 MMOL/L (136-145) Potassium Level 5.4 MMOL/L (3.5-5.1) Chloride Level 100 MMOL/L (98-107) Carbon Dioxide Level < 5 MMOL/L (21-32) Blood Urea Nitrogen 15 mg/dL (7-18) Creatinine 1.9 MG/DL (0.55-1.30) Estimat Glomerular Filtration Rate 34.7 mL/min (>60) Glucose Level 594 MG/DL (74-106) Lactic Acid Level 1.30 mmol/L (0.66-2.22) Calcium Level 8.0 MG/DL (8.5-10.1) Total Bilirubin 0.4 MG/DL (0.2-1.0) Aspartate Amino Transf (AST/SGOT) 32 U/L (15-37) Alanine Aminotransferase (ALT/SGPT) 48 U/L (12-78) Alkaline Phosphatase 124 U/L (46-116) Total Creatine Kinase 116 U/L (26-308) Creatine Kinase MB 2.3 NG/ML (0.0-3.6) Creatine Kinase MB Relative Index 1.9 Total Protein 7.7 G/DL (6.4-8.2) Albumin 3.3 G/DL (3.4-5.0) Globulin 4.4 g/dL Albumin/Globulin Ratio 0.8 (1.0-2.7) Lipase 669 U/L (73-393) Rhythm Strip Diag. Results EP Interpretation: yes Rate: 88 Rhythm: NSR, no PVC's, no ectopy Last Vital Signs Date Time Temp Pulse Resp B/P (MAP) Pulse Ox O2 Delivery O2 Flow Rate FiO2 05/06/17 00:19 97.3 108 18 159/71 100 Room Air Status: improved Disposition: ADMITTED INPATIENT Condition: Critical Referrals: Aries Hardin MD (PCP) PARISA PRASAD D.O. May 06, 2017 00:59
[2017-05-06 01:01] LABS: BASOPHILS % (AUTO) 0.7 % (0.0-2.0); EOSINOPHILS % (AUTO) 0.1 % (0.0-3.0); MEAN CORPUSCULAR HEMOGLOBIN 30.9 PG (27.0-31.0); MEAN CORPUSCULAR HGB CONC 29.7 G/DL (32.0-36.0); MEAN CORPUSCULAR VOLUME 104 FL (80-99); MEAN PLATELET VOLUME 5.7 FL (6.5-10.1); MONOCYTES % (AUTO) 5.8 % (1.0-10.0); NEUTROPHILS % (AUTO) 76.5 % (45.0-75.0); PLATELET COUNT 477 K/UL (150-450); RED BLOOD COUNT 3.18 M/UL (4.20-5.40); RED CELL DISTRIBUTION WIDTH 16.3 % (11.6-14.8); WHITE BLOOD COUNT 7.7 K/UL (4.8-10.8)
[2017-05-06] MEDS ORDERED: LORazepam Inj 2mg/ml 1ml IV ONE (01:15)
[2017-05-06 01:29] LABS: ALANINE AMINOTRANSFERASE 48 U/L (12-78); ALBUMIN/GLOBULIN RATIO 0.8 (1.0-2.7); ASPARTATE AMINO TRANSFERASE 32 U/L (15-37); CHLORIDE 100 MMOL/L (98-107); CKMB 2.3 NG/ML (0.0-3.6); CREATININE 1.9 MG/DL (0.55-1.30); GLOMERULAR FILTRATION RATE 34.7 mL/min (>60); LIPASE 669 U/L (73-393); POTASSIUM 5.4 MMOL/L (3.5-5.1); SODIUM 135 MMOL/L (136-145); TOTAL PROTEIN 7.7 G/DL (6.4-8.2)
[2017-05-06 02:02] LABS: CARBON DIOXIDE < 5 MMOL/L (21-32)
[2017-05-06 04:16] LABS: ABG ALLEN TEST POSITIVE; ABG BASE EXCESS -25.1; ABG PCO2 21.2 mmHg (35.0-45.0)
[2017-05-06 05:45] LABS: HEMOGLOBIN A1C 11.6 % (4.3-6.0)
[2017-05-06 07:21] LABS: CALCIUM 7.7 MG/DL (8.5-10.1); CHLORIDE 109 MMOL/L (98-107); CREATININE 1.6 MG/DL (0.55-1.30); GLOMERULAR FILTRATION RATE 42.3 mL/min (>60); POTASSIUM 4.4 MMOL/L (3.5-5.1); SODIUM 141 MMOL/L (136-145)
[2017-05-06 07:22] LABS: CARBON DIOXIDE < 5 MMOL/L (21-32)
[2017-05-06] MEDS: Insulin Rate Change 1 Each MISC PRN ×5 (08:09→23:03)
--- NOTE | 2017-05-06 10:02 | Consultation ---
Consult Note Consult Note asked to eval for high Cr 1.9 Know to me from her previous admissions Patient was recently disposition from the hospital presents back with general discomfort shortness of breath And elevated blood glucose patient's Glucose level in the field was high Patient complains of diffuse bodyaches Decreased appetite Increased thirst Patient denies any recent fever admitted with DKA in ICU on insulin drip Assessment/Plan Acute renal failure- Mixed dehydration and urinary retention- 1300 cc out after escamilla inserted Others: 1. Diabetic type 1 2. h/o Diabetic ketoacidosis (CC) 3. History of gastroesophageal reflux disease. 4. Depression. 5. Hypertension. 6. back pain 7. Anemia Plan: Escamilla hydrate Keep BP in check- Monitor renal parameters and Chemistries- Urine studies Avoid Nephrotoxics Per orders KYMBERLY SEAMAN May 06, 2017 10:02
[2017-05-06] MEDS ORDERED: Morphine Sulfate 2mg/ml Inj IV PRN (10:30)
--- NOTE | 2017-05-06 10:34 | Pulmonolgy Critical Care Note ---
Critical Care - Asmt/Plan Problems: (1) Diabetic ketoacidosis, type I (2) ARF (acute renal failure) (3) Diabetic gastroparesis (4) GERD (gastroesophageal reflux disease) (5) Non-compliance with treatment (6) Major depression Respiratory: monitor respiratory rate, adjust FIO2, CXR Cardiac: continue pressors, continue to monitor HR/BP Renal: F/U I&O, keep IV fluid Infectious Disease: check cultures, continue antibiotics Gastrointestinal: continue feedings/current rate Endocrine: monitor blood sugar, check TSH Hematologic: monitor H/H Neurologic: PRN Ativan Affect: PRN ativan Prophylaxis: Heparin Notes Reviewed: warper creeler, cardio, renal Discussed with: nurses, consultants, case monitorpark manager - Objective Last 24 Hour Vital Signs Date Time Temp Pulse Resp B/P (MAP) Pulse Ox O2 Delivery O2 Flow Rate FiO2 05/06/17 10:00 93 14 153/75 99 Room Air 05/06/17 09:00 73 14 114/64 99 Room Air 05/06/17 08:00 98.5 95 17 160/80 99 Room Air 05/06/17 08:00 99 05/06/17 07:00 87 20 129/71 100 Room Air 05/06/17 06:00 97.4 96 20 163/80 100 Room Air 05/06/17 05:00 99 23 157/75 100 Room Air 05/06/17 04:00 101 05/06/17 04:00 94.6 101 23 142/69 100 Room Air 05/06/17 03:45 97.3 100 17 141/68 100 Room Air 4.0 05/06/17 03:01 97.3 100 17 141/68 100 Room Air 05/06/17 02:09 102 22 131/69 100 Nasal Cannula 4.0 05/06/17 00:35 97.3 108 18 159/71 100 Room Air 05/06/17 00:19 97.3 108 18 159/71 100 Room Air Status: somnolent Condition: critical HEENT: atraumatic Lungs: clear Heart: HR/BP stable, HR/BP unstable Abdomen: soft, active bowel sounds, feeding tube Extremities: edema Decubiti: location Accucheck: 98 Critical Care - Subjective ROS Limited/Unobtainable: Yes ICU Day: 1 Condition: critical EKG Rhythm: Sinus Rhythm Fluids: 1/2 NS 125 cc/hour I&O: Intake and Output 05/06/17 05/07/17 19:00 07:00 Intake Total 251.0 ml Output Total 1465 ml Balance -1214.0 ml Intake IV Total 251.0 ml Output Urine Total 1465 ml CXR: SANTO Labs: Laboratory Tests Test 05/06/17 00:40 05/06/17 03:59 05/06/17 04:30 White Blood Count 7.7 K/UL (4.8-10.8) Red Blood Count 3.18 M/UL (4.20-5.40) L Hemoglobin 9.8 G/DL (12.0-16.0) L Hematocrit 33.1 % (37.0-47.0) L Mean Corpuscular Volume 104 FL (80-99) H Mean Corpuscular Hemoglobin 30.9 PG (27.0-31.0) Mean Corpuscular Hemoglobin Concent 29.7 G/DL (32.0-36.0) L Red Cell Distribution Width 16.3 % (11.6-14.8) H Platelet Count 477 K/UL (150-450) H Mean Platelet Volume 5.7 FL (6.5-10.1) L Neutrophils (%) (Auto) 76.5 % (45.0-75.0) H Lymphocytes (%) (Auto) 17.0 % (20.0-45.0) L Monocytes (%) (Auto) 5.8 % (1.0-10.0) Eosinophils (%) (Auto) 0.1 % (0.0-3.0) Basophils (%) (Auto) 0.7 % (0.0-2.0) Sodium Level 135 MMOL/L (136-145) L 141 MMOL/L (136-145) Potassium Level 5.4 MMOL/L (3.5-5.1) H 4.4 MMOL/L (3.5-5.1) Chloride Level 100 MMOL/L (98-107) 109 MMOL/L (98-107) H Carbon Dioxide Level < 5 MMOL/L (21-32) *L < 5 MMOL/L (21-32) *L Blood Urea Nitrogen 15 mg/dL (7-18) 15 mg/dL (7-18) Creatinine 1.9 MG/DL (0.55-1.30) H 1.6 MG/DL (0.55-1.30) H Estimat Glomerular Filtration Rate 34.7 mL/min (>60) 42.3 mL/min (>60) Glucose Level 594 MG/DL (74-106) #*H 267 MG/DL (74-106) #H Lactic Acid Level 1.30 mmol/L (0.66-2.22) Calcium Level 8.0 MG/DL (8.5-10.1) L 7.7 MG/DL (8.5-10.1) L Total Bilirubin 0.4 MG/DL (0.2-1.0) Aspartate Amino Transf (AST/SGOT) 32 U/L (15-37) Alanine Aminotransferase (ALT/SGPT) 48 U/L (12-78) Alkaline Phosphatase 124 U/L (46-116) H Total Creatine Kinase 116 U/L (26-308) Creatine Kinase MB 2.3 NG/ML (0.0-3.6) Creatine Kinase MB Relative Index 1.9 Total Protein 7.7 G/DL (6.4-8.2) Albumin 3.3 G/DL (3.4-5.0) L Globulin 4.4 g/dL Albumin/Globulin Ratio 0.8 (1.0-2.7) L Lipase 669 U/L (73-393) H Arterial Blood pH 6.978 (7.350-7.450) Arterial Blood Partial Pressure CO2 21.2 mmHg (35.0-45.0) *L Arterial Blood Partial Pressure O2 134.5 mmHg (75.0-100.0) H Arterial Blood HCO3 4.9 mmol/L (22.0-26.0) L Arterial Blood Oxygen Saturation 97.9 % (92.0-98.0) Arterial Blood Base Excess -25.1 Pierre Test Positive Hemoglobin A1c 11.6 % (4.3-6.0) H VANESSA SAGASTUME May 06, 2017 10:34
--- NOTE | 2017-05-06 10:59 | GI Initial Consult Note ---
History of Present Illness General Date patient seen: May 06, 2017 Time patient seen: 10:50 Reason for Hospitalization: Generalized Weakness Referring physician: ELIZABETH BURGOS Reason for Consultation: PANCREATITIS Present Illness HPI Patient was recently disposition from the hospital presents back with general discomfort shortness of breath And elevated blood glucose patient's Glucose level in the field was high Patient complains of diffuse bodyaches Decreased appetite Increased thirst Patient denies any recent fever GI consulted for pancreatitis. HPI as noted above. Pt seen on floor, awake A &Ox4 NAD with no active s/sx of N/V/D. Recently discharged for similar diagnosis. Denies any ETOH, tobacco, drug use. C/o of upper abdominal pain, tender to touch. She presents today with anemia most likely due to renal disease, DKA, elevated pancreatic enzymes and LFTs. EGD performed as follows: DATE OF PROCEDURE: 04/22/2015 PROCEDURE: Upper endoscopy with biopsy. SUMMARY OF FINDINGS: 1. Esophagitis. 2. Gastritis, status post biopsy. Home Meds Active Scripts Insulin Detemir (LEVEMIR FLEXPEN) 100 Unit/1 Ml Insuln.pen, 18 UNITS SUBQ QHS, # 300 UNITS 0 Refills Prov:DEDRICK EL M.D. 05/05/17 Mirtazapine* (MIRTAZAPINE*) 15 Mg Tablet, 7.5 MG ORAL BEDTIME for 30 Days, TAB Prov:ZARRABI,MIRALI 12/20/16 Insulin Detemir (LEVEMIR FLEXPEN) 100 Unit/1 Ml Insuln.pen, 24 UNITS SUBQ DAILY for 30 Days, EA Prov:ZARRABI,MIRALI 12/20/16 Insulin Aspart (Novolog Flexpen) 100 Unit/1 Ml Insuln.pen, 8 UNITS SUBQ NOVOTIAC for 30 Days, EA Prov:ZARRABI,MIRALI 12/20/16 Insulin Aspart (Novolog Flexpen) 100 Unit/1 Ml Insuln.pen, 0 UNITS SUBQ BEFORE MEALS AND HS for 30 Days, EA Prov:ZARRABI,MIRALI 12/20/16 Ondansetron Odt* (ZOFRAN ODT*) 4 Mg Tab.rapdis, 4 MG ORAL Q6H Y for Nausea & Vomiting, #20 TAB 0 Refills Prov:KURT AGUIAR M.D. 12/11/16 Valsartan (Diovan) 160 Mg Tablet, 160 MG ORAL BID, #60 TAB Prov:Elizabeth Burgos MD 08/16/16 Clonidine HCl (Clonidine HCl) 0.1 Mg Tablet, 0.1 MG ORAL Q4H Y, #30 TAB Prov:Elizabeth Burgos MD 08/16/16 Amlodipine Besylate (Norvasc) 5 Mg Tab, 10 MG ORAL DAILY, #30 TAB Prov:Elizabeth Burgos MD 08/16/16 Reported Medications Hydrocodone Bitartrate (Hysingla ER) 20 Mg Tab.er.24h, PO, TAB 05/06/17 Hydrochlorothiazide* (HYDROCHLOROTHIAZIDE*) 12.5 Mg Capsule, ORAL DAILY, CAP 05/06/17 Amoxicillin* (AMOXICILLIN*) 200 Mg/5 Ml Susp.recon, PO, ML 05/06/17 Lisinopril (LISINOPRIL*) 5 Mg Tablet, ORAL DAILY, TAB 05/06/17 [Insulin] No Conflict Check 05/06/17 Nitrofurantoin Monohyd/M-Cryst* (MACROBID 100 MG*) 100 Mg Capsule, 100 MG ORAL EVERY 12 HOURS for 5 Days, #10 CAP 05/01/17 Nitrofurantoin Monohyd/M-Cryst* (MACROBID 100 MG*) 100 Mg Capsule, 100 MG ORAL EVERY 12 HOURS for 5 Days, #10 CAP 05/01/17 Ibuprofen* (MOTRIN*) 600 Mg Tablet, 600 MG ORAL Q6H Y for For Pain, #30 TAB 12/11/16 Escitalopram Oxalate* (LEXAPRO*) 20 Mg Tablet, 20 MG ORAL DAILY, TAB 12/11/16 Potassium Chloride (POTASSIUM CHLORIDE) 10 Meq Tab.er.prt, 10 MEQ PO, TAB 12/11/16 Meloxicam* (MELOXICAM*) 15 Mg Tablet, 15 MG PO DAILY, #30 08/13/16 Pregabalin (Lyrica) 50 Mg Capsule, 50 MG PO BID, #60 08/13/16 Pantoprazole* (PROTONIX*) 40 Mg Tablet.dr, 40 MG ORAL DAILY, TAB 03/12/16 Insulin Lispro (HUMALOG) 100 Unit/1 Ml Cartridge, 0 SUBQ, #1 UNITS 0 Refills 04/14/15 Allergies: Coded Allergies: No Known Allergies (Unverified , 04/24/14) Patient History PMH Narrative Past Medical History: see triage record Pertinent Family History: none Last Menstrual Period: UNK Reviewed Nursing Documentation: PMH: Agreed, PSxH: Agreed Nursing Documentation-PMH Hx Cardiac Problems: Yes Hx Hypertension: Yes Hx Pacemaker: No Hx Diabetes: Yes Hx Cancer: No Hx Gastrointestinal Problems: Yes - GERD Hx Neurological Problems: No Hx Concentration Difficulty: No Physical Exam Vital Signs Date Time Temp Pulse Resp B/P (MAP) Pulse Ox O2 Delivery O2 Flow Rate FiO2 05/06/17 00:19 97.3 108 18 159/71 100 Room Air 05/06/17 02:09 4.0 Labs Laboratory Tests Test 05/06/17 00:40 05/06/17 03:59 05/06/17 04:30 White Blood Count 7.7 K/UL (4.8-10.8) Red Blood Count 3.18 M/UL (4.20-5.40) L Hemoglobin 9.8 G/DL (12.0-16.0) L Hematocrit 33.1 % (37.0-47.0) L Mean Corpuscular Volume 104 FL (80-99) H Mean Corpuscular Hemoglobin 30.9 PG (27.0-31.0) Mean Corpuscular Hemoglobin Concent 29.7 G/DL (32.0-36.0) L Red Cell Distribution Width 16.3 % (11.6-14.8) H Platelet Count 477 K/UL (150-450) H Mean Platelet Volume 5.7 FL (6.5-10.1) L Neutrophils (%) (Auto) 76.5 % (45.0-75.0) H Lymphocytes (%) (Auto) 17.0 % (20.0-45.0) L Monocytes (%) (Auto) 5.8 % (1.0-10.0) Eosinophils (%) (Auto) 0.1 % (0.0-3.0) Basophils (%) (Auto) 0.7 % (0.0-2.0) Sodium Level 135 MMOL/L (136-145) L 141 MMOL/L (136-145) Potassium Level 5.4 MMOL/L (3.5-5.1) H 4.4 MMOL/L (3.5-5.1) Chloride Level 100 MMOL/L (98-107) 109 MMOL/L (98-107) H Carbon Dioxide Level < 5 MMOL/L (21-32) *L < 5 MMOL/L (21-32) *L Blood Urea Nitrogen 15 mg/dL (7-18) 15 mg/dL (7-18) Creatinine 1.9 MG/DL (0.55-1.30) H 1.6 MG/DL (0.55-1.30) H Estimat Glomerular Filtration Rate 34.7 mL/min (>60) 42.3 mL/min (>60) Glucose Level 594 MG/DL (74-106) #*H 267 MG/DL (74-106) #H Lactic Acid Level 1.30 mmol/L (0.66-2.22) Calcium Level 8.0 MG/DL (8.5-10.1) L 7.7 MG/DL (8.5-10.1) L Total Bilirubin 0.4 MG/DL (0.2-1.0) Aspartate Amino Transf (AST/SGOT) 32 U/L (15-37) Alanine Aminotransferase (ALT/SGPT) 48 U/L (12-78) Alkaline Phosphatase 124 U/L (46-116) H Total Creatine Kinase 116 U/L (26-308) Creatine Kinase MB 2.3 NG/ML (0.0-3.6) Creatine Kinase MB Relative Index 1.9 Total Protein 7.7 G/DL (6.4-8.2) Albumin 3.3 G/DL (3.4-5.0) L Globulin 4.4 g/dL Albumin/Globulin Ratio 0.8 (1.0-2.7) L Lipase 669 U/L (73-393) H Arterial Blood pH 6.978 (7.350-7.450) Arterial Blood Partial Pressure CO2 21.2 mmHg (35.0-45.0) *L Arterial Blood Partial Pressure O2 134.5 mmHg (75.0-100.0) H Arterial Blood HCO3 4.9 mmol/L (22.0-26.0) L Arterial Blood Oxygen Saturation 97.9 % (92.0-98.0) Arterial Blood Base Excess -25.1 Pierre Test Positive Hemoglobin A1c 11.6 % (4.3-6.0) H Current Medications Current Medications Medications (Trade) Dose Ordered Sig/Lizbeth Route PRN Reason Start Time Stop Time Status Last Admin Dose Admin Dextrose (Dextrose 50%) PRN PRN IV HYPOGLYCEMIA 05/06/17 04:15 06/05/17 04:14 Heparin Sodium (Porcine) (Heparin 5000 units/ml) 5,000 units EVERY 12 HOURS SUBQ 05/06/17 21:00 06/05/17 20:59 Insulin Human Regular (NovoLIN R) 5 units PRN PRN IV BS 200-299 05/06/17 04:15 06/05/17 04:14 05/06/17 05:20 Insulin Human Regular (NovoLIN R) 10 units PRN PRN IV BS=>300 05/06/17 04:15 06/05/17 04:14 Insulin Human Regular 100 units/ Sodium Chloride 101 ml @ 0 mls/hr Q24H IV 05/06/17 04:30 06/05/17 04:14 05/06/17 05:00 Lansoprazole (Prevacid) 30 mg DAILY ORAL 05/06/17 10:15 06/05/17 10:14 05/06/17 10:40 Metoclopramide HCl (Reglan) 5 mg THREE TIMES A DAY ORAL 05/06/17 13:00 06/05/17 12:59 Miscellaneous Medication (Insulin Rate Change) 1 ea PRN PRN MISC Hypoglycemia 05/06/17 04:15 06/05/17 04:14 05/06/17 08:09 Morphine Sulfate (Morphine Sulfate) 2 mg Q4H PRN IV PAIN 4-10 05/06/17 10:30 05/13/17 10:29 Ondansetron HCl (Zofran) 4 mg Q6H PRN IVP Nausea & Vomiting 05/06/17 10:30 06/05/17 10:29 Sodium Chloride 999 ml @ 999 mls/hr Q1H IV 05/06/17 10:30 05/06/17 11:29 Sodium Chloride 1,000 ml @ 200 mls/hr Q5H IV 05/06/17 11:30 06/05/17 11:29 GI: Plan Problems: (1) Pancreatitis (2) Diabetic ketoacidosis, type I (3) Non-compliance with treatment (4) Diabetic gastroparesis (5) GERD (gastroesophageal reflux disease) (6) Hypoalbuminemia Plan DATE OF PROCEDURE: 04/22/2015 PROCEDURE: Upper endoscopy with biopsy. SUMMARY OF FINDINGS: 1. Esophagitis. 2. Gastritis, status post biopsy. anemia 2/2 renal disease elevated lipase maintain NPO + IVFs, ice chips okay adv diet as tolerated DM mgmt follow lipase fu utox prn transfusions ppi fu labs Discussed with Dr. Patel. Thank you for this patient referral, we will follow. Venus Aguiar N.P. May 06, 2017 10:59
[2017-05-06 12:33] LABS: ABG PCO2 24.6 mmHg (35.0-45.0)
[2017-05-06 12:34] LABS: ABG ALLEN TEST POSITIVE; ABG BASE EXCESS -15.8
[2017-05-06 12:35] LABS: BASOPHILS % (AUTO) 0.6 % (0.0-2.0); LYMPHOCYTES % (AUTO) 21.3 % (20.0-45.0); MEAN CORPUSCULAR HEMOGLOBIN 30.2 PG (27.0-31.0); MEAN CORPUSCULAR VOLUME 98 FL (80-99); MEAN PLATELET VOLUME 5.5 FL (6.5-10.1); NEUTROPHILS % (AUTO) 64.1 % (45.0-75.0); PLATELET COUNT 336 K/UL (150-450); RED BLOOD COUNT 2.85 M/UL (4.20-5.40); RED CELL DISTRIBUTION WIDTH 15.3 % (11.6-14.8); WHITE BLOOD COUNT 6.5 K/UL (4.8-10.8)
[2017-05-06 12:52] LABS: ALANINE AMINOTRANSFERASE 38 U/L (12-78); ALBUMIN/GLOBULIN RATIO 0.8 (1.0-2.7); ANION GAP 18 mmol/L (5-15); ASPARTATE AMINO TRANSFERASE 23 U/L (15-37); CALCIUM 7.5 MG/DL (8.5-10.1); CARBON DIOXIDE 13 MMOL/L (21-32); CHLORIDE 110 MMOL/L (98-107); CREATININE 1.5 MG/DL (0.55-1.30); GLOMERULAR FILTRATION RATE 45.5 mL/min (>60); MAGNESIUM 1.5 MG/DL (1.8-2.4); PHOSPHORUS 1.4 MG/DL (2.5-4.9); POTASSIUM 4.1 MMOL/L (3.5-5.1); SODIUM 141 MMOL/L (136-145); TOTAL PROTEIN 6.1 G/DL (6.4-8.2)
[2017-05-06 12:55] LABS: CHOLESTEROL 146 MG/DL (< 200); CHOLESTEROL/HDL RATIO 2.4 (3.3-4.4)
[2017-05-06 12:59] LABS: CRP QUANT < 0.4 mg/dL (0.00-0.90)
[2017-05-06 13:03] LABS: FERRITIN 129 NG/ML (8-388); URIC ACID 7.1 MG/DL (2.6-7.2)
[2017-05-06 13:18] LABS: FOLIC ACID 12.7 NG/ML (3.1-17.5); IRON 47 ug/dL (50-175); TOTAL IRON BINDING CAPACITY 280 ug/dL (250-450)
[2017-05-06] MEDS ORDERED: Insulin Rate Change 1 Each MISC PRN (16:15)
[2017-05-06] MEDS: D5 1/2NS 1,000 ML IV SCH (17:08)
--- NOTE | 2017-05-06 17:58 | Cardiology Report ---
APPROVED REPORT EKG Measurement Heart [id number] Sinus tachycardia Possible Left atrial enlargement Borderline ECG
[2017-05-06 18:23] LABS: APPEARANCE,URINE CLEAR; KETONES,URINE 3+ (NEGATIVE); LEUKOCYTE ESTERASE ,URINE NEGATIVE (NEGATIVE); NITRITE,URINE NEGATIVE (NEGATIVE); PH,URINE 5 (4.5-8.0); PROTEIN,URINE 2+ (NEGATIVE); UROBILINOGEN,URINE NORMAL MG/DL (0.0-1.0)
[2017-05-06 18:36] LABS: BACTERIA,URINE OCCASIONAL /HPF; RBC,URINE 0-2 /HPF (0 - 2); SQUAMOUS EPITHELIAL CELL,UR OCCASIONAL /LPF (NONE/OCC); WBC,URINE 0-2 /HPF (0 - 2)
[2017-05-06] MEDS ORDERED: Dyna-Hex 2% Top Sol 2oz TOPIC SCH (20:00)
--- NOTE | 2017-05-06 20:31 | History & Physical ---
History and Physical History & Physicial Dictated for Int Med-Dr Hardin no. [id number]. CHRISTOS JACOBSEN May 06, 2017 20:31
[2017-05-06] MEDS: Heparin 5000 units/ml inj SUBQ SCH ×2 (21:00→21:06)
--- NOTE | 2017-05-06 22:15 | History and Physical Report ---
DATE OF ADMISSION: 05/06/2017 CHIEF COMPLAINT: The patient is a 46-year-old female with history of type 1 diabetes, who presents with a chief complaint of elevated blood sugar. HISTORY OF PRESENT ILLNESS: The patient was admitted to [facility] from 04/25/2017 to 05/01/2017. Please see History and Physical and discharge summary dictated at that time. The patient was admitted for nausea and vomiting, secondary to pancreatitis. The patient presented to [facility] today, 05/06/2017. The patient was complaining of elevated blood sugars. The patient was also experiencing shortness of breath. Initial blood sugar in the field was high by the glucometer. The patient was admitted for hyperglycemia to rule out diabetic ketoacidosis. PAST MEDICAL HISTORY: Significant for: 1. Type 1 diabetes. 2. Hypertension. 3. Major depression. 4. Diabetic gastroparesis. 5. History of gastroesophageal reflux disease. 6. Chronic renal failure. CURRENT MEDICATIONS: 1. Amlodipine 10 mg one tablet p.o. daily. 2. Clonidine 0.1 mg one tablet p.o. p.r.n. 3. Lexapro 20 mg one tablet p.o. daily. 4. Hydrochlorothiazide 12.5 mg one tablet p.o. daily. 5. NovoLog sliding scale. 6. Levemir 24 units subcutaneously daily and 18 units subcutaneously at bedtime. 7. Lisinopril 5 mg one tablet p.o. daily. 8. Remeron 15 mg one tablet p.o. at bedtime. 9. Protonix 40 mg one tablet p.o. daily. 10. Potassium chloride 20 mEq one tablet p.o. daily. 11. Lyrica 50 mg one tablet p.o. twice daily. 12. Diovan 160 mg one tablet p.o. daily. ALLERGIES: No known drug allergies. SOCIAL HISTORY: The patient works for a [employer]. The patient denies tobacco or alcohol use. REVIEW OF SYSTEMS: CONSTITUTIONAL: The patient denies weight loss or weight gain. The patient denies fevers or chills. HEENT: The patient denies ear or throat pain. The patient denies headache. CARDIOVASCULAR: The patient denies palpitations or chest pain. CHEST: The patient complains of shortness of breath as above. The patient denies wheezes. ABDOMEN: The patient denies nausea, vomiting, diarrhea, or constipation. GENITOURINARY: The patient denies dysuria or increased frequency of urination. NEUROMUSCULAR: The patient denies seizures or generalized weakness. PHYSICAL EXAMINATION: VITAL SIGNS: Temperature is 98.7, respirations 15, pulse 90, and blood pressure 111/49. GENERAL: The patient is a well-developed and well-nourished thin-appearing female, in no apparent distress. HEENT: Eyes, pupils are equal and responsive to light and accommodation. Extraocular movements are intact. NECK: Supple without lymphadenopathy. CHEST: Lungs are clear to auscultation bilaterally without wheezes or rales. CARDIOVASCULAR: Regular rate. S1 and S2 are normal without murmurs, rubs, or gallops. ABDOMEN: Soft, nontender, and nondistended. Positive bowel sounds. No evidence of hepatosplenomegaly. Currently, no rebound or guarding noted. EXTREMITIES: Negative for clubbing, cyanosis, or edema. RECTAL/GENITAL: Refused. NEUROLOGICAL: Cranial nerves II through XII are grossly intact without focal deficits. Motor strength is 5/5 bilaterally. Deep tendon reflexes are 2+ plantar. LABORATORY STUDIES: WBC is 7.7, hemoglobin 9.8, hematocrit 33.1, and platelets 447,000. Sodium is 141, potassium 4.4, chloride 109, CO2 less than 5, BUN 15, creatinine 1.6, and glucose 267. Lactic acid is 1.3. ASSESSMENT: This is a 46-year-old female with: 1. Diabetic ketoacidosis. 2. Hyperglycemia. 3. Shortness of breath. 4. Diabetes type 1. 5. Hypertension. 6. Major depression. 7. Diabetic gastroparesis. 8. Gastroesophageal reflux disease. 9. Chronic renal failure. TREATMENT: 1. Hyperglycemia/diabetic ketoacidosis. The patient has been placed on NovoLog sliding scale. The patient was admitted to the intensive care unit. The patient has been followed in the past by Endocrinology, Dr. Hayes. Dr. Hayes has been notified. 2. Hypertension. Continue Norvasc and lisinopril as above. 3. Major depression. Continue Lexapro as above. 4. Diabetic gastroparesis. A Gastroenterology consultation has been obtained by Dr. Fei Patel. 5. Gastroesophageal reflux disease. Continue Protonix. 6. Chronic renal failure. Anastacio Wright M.D. DR: Francy JOB#: [id number] CC:
[2017-05-07] VITALS (17 sets, daily range): BP systolic 90–179; BP diastolic 35–93
[2017-05-07] MEDS: Insulin Rate Change 1 Each MISC PRN ×5 (00:17→06:55)
[2017-05-07] MEDS: D5 1/2NS 1,000 ML IV SCH (01:04)
[2017-05-07 04:26] LABS: BASOPHILS % (AUTO) 1.4 % (0.0-2.0); EOSINOPHILS % (AUTO) 0.5 % (0.0-3.0); LYMPHOCYTES % (AUTO) 30.7 % (20.0-45.0); MEAN CORPUSCULAR HEMOGLOBIN 32.4 PG (27.0-31.0); MEAN CORPUSCULAR HGB CONC 33.9 G/DL (32.0-36.0); MEAN CORPUSCULAR VOLUME 96 FL (80-99); MEAN PLATELET VOLUME 5.7 FL (6.5-10.1); MONOCYTES % (AUTO) 9.7 % (1.0-10.0); NEUTROPHILS % (AUTO) 57.7 % (45.0-75.0); PLATELET COUNT 300 K/UL (150-450); RED CELL DISTRIBUTION WIDTH 15.3 % (11.6-14.8); WHITE BLOOD COUNT 5.2 K/UL (4.8-10.8)
[2017-05-07 04:42] LABS: ALANINE AMINOTRANSFERASE 32 U/L (12-78); ALBUMIN/GLOBULIN RATIO 0.7 (1.0-2.7); AMYLASE 58 U/L (25-115); ANION GAP 11 mmol/L (5-15); ASPARTATE AMINO TRANSFERASE 26 U/L (15-37); CALCIUM 6.9 MG/DL (8.5-10.1); CARBON DIOXIDE 20 MMOL/L (21-32); CHLORIDE 108 MMOL/L (98-107); CREATININE 1.4 MG/DL (0.55-1.30); GLOMERULAR FILTRATION RATE 49.3 mL/min (>60); LIPASE 206 U/L (73-393); SODIUM 139 MMOL/L (136-145); TOTAL PROTEIN 5.3 G/DL (6.4-8.2)
[2017-05-07 05:43] LABS: ERYTHROCYTE SEDIMENTATION RATE 38 MM/HR (0-20)
[2017-05-07 07:36] LABS: CRP QUANT < 0.4 mg/dL (0.00-0.90)
[2017-05-07] MEDS ORDERED: Potassium Phosphate 20 MM in NS 275 ML IV ONE (09:00)
[2017-05-07] MEDS: Heparin 5000 units/ml inj SUBQ SCH ×2 (09:00→20:43)
--- NOTE | 2017-05-07 09:11 | Pulmonolgy Critical Care Note ---
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 Renal: F/U I&O, keep IV fluid Infectious Disease: check cultures Gastrointestinal: continue feedings/current rate Endocrine: monitor blood sugar, continue sliding scale insulin Hematologic: monitor H/H, transfuse if hgb<8.5 Neurologic: keep patient comfortable Prophylaxis: Protonix, Heparin Notes Reviewed: purchasing clerk, cardio Discussed with: nurses, consultants, 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 of case - Objective Last 24 Hour Vital Signs Date Time Temp Pulse Resp B/P (MAP) Pulse Ox O2 Delivery O2 Flow Rate FiO2 05/07/17 08:43 05/07/17 08:00 98.8 85 12 151/75 99 Room Air 05/07/17 08:00 82 05/07/17 07:30 88 14 161/65 99 Room Air 05/07/17 07:00 88 14 90/35 99 Room Air 05/07/17 06:40 98.0 05/07/17 06:00 82 14 166/70 99 Room Air 05/07/17 05:00 89 14 136/66 99 Room Air 05/07/17 04:00 90 05/07/17 04:00 98.0 88 15 107/41 98 Room Air 05/07/17 03:00 93 14 133/50 99 Room Air 05/07/17 02:00 84 14 173/86 99 Room Air 05/07/17 01:33 179/66 05/07/17 01:30 93 14 179/93 99 Room Air 05/07/17 01:00 93 14 175/66 99 Room Air 05/07/17 00:00 98.7 87 15 130/70 98 Room Air 05/07/17 00:00 84 05/06/17 23:30 89 14 148/74 99 Room Air 05/06/17 23:00 89 14 173/81 99 Room Air 05/06/17 22:00 90 14 167/80 99 Room Air 05/06/17 21:00 92 14 99/43 99 Room Air 05/06/17 20:00 92 05/06/17 20:00 98.7 91 15 136/61 98 Room Air 05/06/17 19:00 84 14 154/72 99 Room Air 05/06/17 18:00 95 14 142/69 99 Room Air 05/06/17 17:00 92 16 136/68 98 Room Air 05/06/17 16:00 98.7 90 15 111/49 98 Room Air 05/06/17 16:00 93 05/06/17 15:00 96 16 135/70 99 Room Air 05/06/17 14:12 170/86 05/06/17 14:00 94 16 170/86 99 Room Air 05/06/17 13:00 101 15 160/66 97 Room Air 05/06/17 12:00 99.2 100 15 139/55 97 Room Air 05/06/17 12:00 103 05/06/17 11:30 102 14 156/69 99 Room Air 05/06/17 11:00 109 14 189/102 99 Room Air 05/06/17 10:00 93 14 153/75 99 Room Air Status: awake Condition: critical HEENT: normocephalic Lungs: clear Heart: HR/BP stable, HR/BP unstable, regular Abdomen: non-tender, feeding tube Extremities: no C/C/E, edema Decubiti: location, stage Micro: Microbiology Date/Time Source Procedure Growth Status 05/06/17 00:55 Blood Blood Culture - Preliminary NO GROWTH AFTER 24 HOURS Resulted 05/06/17 00:40 Blood Blood Culture - Preliminary NO GROWTH AFTER 24 HOURS Resulted 05/06/17 04:45 Nasal Nares MRSA Culture - Final NO METHICILLIN RESISTANT STAPH AUREUS... Complete 05/06/17 18:00 Urine,Clean Catch Urine Culture - Preliminary NO GROWTH Resulted Accucheck: 160 Critical Care - Subjective ROS Limited/Unobtainable: No ICU Day: 2 Interval Events: feeling better, more awake Condition: critical, improving - 2 Fluids: ns 100 I&O: Intake and Output 05/07/17 05/08/17 19:00 07:00 Output Total 160 ml Balance -160 ml Output Urine Total 160 ml Labs: Laboratory Tests Test 05/06/17 12:15 05/06/17 12:25 05/06/17 18:00 05/07/17 03:45 White Blood Count 6.5 K/UL (4.8-10.8) 5.2 K/UL (4.8-10.8) Red Blood Count 2.85 M/UL (4.20-5.40) L 2.70 M/UL (4.20-5.40) L Hemoglobin 8.6 G/DL (12.0-16.0) L 8.8 G/DL (12.0-16.0) L Hematocrit 27.8 % (37.0-47.0) L 25.9 % (37.0-47.0) L Mean Corpuscular Volume 98 FL (80-99) 96 FL (80-99) Mean Corpuscular Hemoglobin 30.2 PG (27.0-31.0) 32.4 PG (27.0-31.0) H Mean Corpuscular Hemoglobin Concent 31.0 G/DL (32.0-36.0) L 33.9 G/DL (32.0-36.0) Red Cell Distribution Width 15.3 % (11.6-14.8) H 15.3 % (11.6-14.8) H Platelet Count 336 K/UL (150-450) 300 K/UL (150-450) Mean Platelet Volume 5.5 FL (6.5-10.1) L 5.7 FL (6.5-10.1) L Neutrophils (%) (Auto) 64.1 % (45.0-75.0) 57.7 % (45.0-75.0) Lymphocytes (%) (Auto) 21.3 % (20.0-45.0) 30.7 % (20.0-45.0) Monocytes (%) (Auto) 14.0 % (1.0-10.0) H 9.7 % (1.0-10.0) Eosinophils (%) (Auto) 0.0 % (0.0-3.0) 0.5 % (0.0-3.0) Basophils (%) (Auto) 0.6 % (0.0-2.0) 1.4 % (0.0-2.0) Sodium Level 141 MMOL/L (136-145) 139 MMOL/L (136-145) Potassium Level 4.1 MMOL/L (3.5-5.1) 3.0 MMOL/L (3.5-5.1) L Chloride Level 110 MMOL/L (98-107) H 108 MMOL/L (98-107) H Carbon Dioxide Level 13 MMOL/L (21-32) L 20 MMOL/L (21-32) L Anion Gap 18 mmol/L (5-15) H 11 mmol/L (5-15) Blood Urea Nitrogen 12 mg/dL (7-18) 7 mg/dL (7-18) Creatinine 1.5 MG/DL (0.55-1.30) H 1.4 MG/DL (0.55-1.30) H Estimat Glomerular Filtration Rate 45.5 mL/min (>60) 49.3 mL/min (>60) Glucose Level 186 MG/DL (74-106) H 131 MG/DL (74-106) H Uric Acid 7.1 MG/DL (2.6-7.2) Calcium Level 7.5 MG/DL (8.5-10.1) L 6.9 MG/DL (8.5-10.1) L Phosphorus Level 1.4 MG/DL (2.5-4.9) L 1.0 MG/DL (2.5-4.9) L Magnesium Level 1.5 MG/DL (1.8-2.4) L 1.0 MG/DL (1.8-2.4) L Iron Level 47 ug/dL (50-175) L Total Iron Binding Capacity 280 ug/dL (250-450) Percent Iron Saturation 17 % (15-50) Unsaturated Iron Binding 233 ug/dL (112-346) Ferritin 129 NG/ML (8-388) Total Bilirubin 0.3 MG/DL (0.2-1.0) 0.4 MG/DL (0.2-1.0) Aspartate Amino Transf (AST/SGOT) 23 U/L (15-37) 26 U/L (15-37) Alanine Aminotransferase (ALT/SGPT) 38 U/L (12-78) 32 U/L (12-78) Alkaline Phosphatase 89 U/L (46-116) 79 U/L (46-116) C-Reactive Protein, Quantitative < 0.4 mg/dL (0.00-0.90) < 0.4 mg/dL (0.00-0.90) Total Protein 6.1 G/DL (6.4-8.2) L 5.3 G/DL (6.4-8.2) L Albumin 2.7 G/DL (3.4-5.0) L 2.2 G/DL (3.4-5.0) L Globulin 3.4 g/dL 3.1 g/dL Albumin/Globulin Ratio 0.8 (1.0-2.7) L 0.7 (1.0-2.7) L Triglycerides Level 148 MG/DL (30-150) Cholesterol Level 146 MG/DL (< 200) LDL Cholesterol 68 mg/dL (<100) HDL Cholesterol 62 MG/DL (40-60) H Cholesterol/HDL Ratio 2.4 (3.3-4.4) L Vitamin B12 Level 650 PG/ML (193-986) Folate 12.7 NG/ML (3.1-17.5) Arterial Blood pH 7.235 (7.350-7.450) Arterial Blood Partial Pressure CO2 24.6 mmHg (35.0-45.0) *L Arterial Blood Partial Pressure O2 76.5 mmHg (75.0-100.0) Arterial Blood HCO3 10.2 mmol/L (22.0-26.0) L Arterial Blood Oxygen Saturation 95.2 % (92.0-98.0) Arterial Blood Base Excess -15.8 Pierre Test Positive Urine Color Pale yellow Urine Appearance Clear Urine pH 5 (4.5-8.0) Urine Specific [place] 1.005 (1.005-1.035) Urine Protein 2+ (NEGATIVE) H Urine Glucose (UA) Negative (NEGATIVE) Urine Ketones 3+ (NEGATIVE) H Urine Occult Blood Negative (NEGATIVE) Urine Nitrite Negative (NEGATIVE) Urine Bilirubin Negative (NEGATIVE) Urine Urobilinogen Normal MG/DL (0.0-1.0) Urine Leukocyte Esterase Negative (NEGATIVE) Urine RBC 0-2 /HPF (0 - 2) Urine WBC 0-2 /HPF (0 - 2) Urine Squamous Epithelial Cells Occasional /LPF Urine Bacteria Occasional /HPF (NONE) Urine Opiates Screen Negative (NEGATIVE) Urine Barbiturates Screen Negative (NEGATIVE) Phencyclidine (PCP) Screen Negative (NEGATIVE) Urine Amphetamines Screen Negative (NEGATIVE) Urine Benzodiazepines Screen Negative (NEGATIVE) Urine Cocaine Screen Negative (NEGATIVE) Urine Marijuana (THC) Screen Negative (NEGATIVE) Erythrocyte Sedimentation Rate 38 MM/HR (0-20) H Amylase Level 58 U/L (25-115) Lipase 206 U/L (73-393) VANESSA SAGASTUME May 07, 2017 09:11
[2017-05-07] MEDS ORDERED: Potassium Phosphate 30 MM in NS 275 ML IV ONE (11:00)
--- NOTE | 2017-05-07 11:10 | Nephrology Progress Note ---
Assessment/Plan Problem List: (1) Urinary retention (2) ARF (acute renal failure) (3) Dehydration (4) Diabetic ketoacidosis, type I Assessment status; 1. Diabetic type 1 2. h/o Diabetic ketoacidosis (CC) 3. History of gastroesophageal reflux disease. 4. Depression. 5. Hypertension. 6. back pain 7. Anemia Plan Plan: Jay hydrate- mag and phos and K supplement as needed Keep BP in check- Monitor renal parameters and Chemistries- Urine studies Avoid Nephrotoxics Per orders Subjective ROS Limited/Unobtainable: No Constitutional: Reports: other - stronger Objective Objective Last 24 Hour Vital Signs Date Time Temp Pulse Resp B/P (MAP) Pulse Ox O2 Delivery O2 Flow Rate FiO2 05/07/17 10:00 108 14 122/48 100 Room Air 05/07/17 09:29 161/68 05/07/17 09:00 101 14 161/68 100 Room Air 05/07/17 08:43 05/07/17 08:00 98.8 85 12 151/75 99 Room Air 05/07/17 08:00 82 05/07/17 07:30 88 14 161/65 99 Room Air 05/07/17 07:00 88 14 90/35 99 Room Air 05/07/17 06:40 98.0 05/07/17 06:00 82 14 166/70 99 Room Air 05/07/17 05:00 89 14 136/66 99 Room Air 05/07/17 04:00 90 05/07/17 04:00 98.0 88 15 107/41 98 Room Air 05/07/17 03:00 93 14 133/50 99 Room Air 05/07/17 02:00 84 14 173/86 99 Room Air 05/07/17 01:33 179/66 05/07/17 01:30 93 14 179/93 99 Room Air 05/07/17 01:00 93 14 175/66 99 Room Air 05/07/17 00:00 98.7 87 15 130/70 98 Room Air 05/07/17 00:00 84 05/06/17 23:30 89 14 148/74 99 Room Air 05/06/17 23:00 89 14 173/81 99 Room Air 05/06/17 22:00 90 14 167/80 99 Room Air 05/06/17 21:00 92 14 99/43 99 Room Air 05/06/17 20:00 92 05/06/17 20:00 98.7 91 15 136/61 98 Room Air 05/06/17 19:00 84 14 154/72 99 Room Air 05/06/17 18:00 95 14 142/69 99 Room Air 05/06/17 17:00 92 16 136/68 98 Room Air 05/06/17 16:00 98.7 90 15 111/49 98 Room Air 05/06/17 16:00 93 05/06/17 15:00 96 16 135/70 99 Room Air 05/06/17 14:12 170/86 05/06/17 14:00 94 16 170/86 99 Room Air 05/06/17 13:00 101 15 160/66 97 Room Air 05/06/17 12:00 99.2 100 15 139/55 97 Room Air 05/06/17 12:00 103 05/06/17 11:30 102 14 156/69 99 Room Air Intake and Output 05/07/17 05/08/17 19:00 07:00 Intake Total 470 ml Output Total 285 ml Balance 185 ml Intake Oral 450 ml Other 20 ml Output Urine Total 285 ml Laboratory Tests 05/06/17 12:15: White Blood Count 6.5, Red Blood Count 2.85L, Hemoglobin 8.6L, Hematocrit 27.8L , Mean Corpuscular Volume 98, Mean Corpuscular Hemoglobin 30.2, Mean Corpuscular Hemoglobin Concent 31.0L, Red Cell Distribution Width 15.3H, Platelet Count 336, Mean Platelet Volume 5.5L, Neutrophils (%) (Auto) 64.1, Lymphocytes (%) (Auto) 21.3, Monocytes (%) (Auto) 14.0H, Eosinophils (%) (Auto) 0.0, Basophils (%) (Auto) 0.6, Sodium Level 141, Potassium Level 4.1, Chloride Level 110H, Carbon Dioxide Level 13L, Anion Gap 18H, Blood Urea Nitrogen 12, Creatinine 1.5H, Estimat Glomerular Filtration Rate 45.5, Glucose Level 186H, Uric Acid 7.1, Calcium Level 7.5L, Phosphorus Level 1.4L, Magnesium Level 1.5L, Iron Level 47L, Total Iron Binding Capacity 280, Percent Iron Saturation 17, Unsaturated Iron Binding 233, Ferritin 129, Total Bilirubin 0.3, Aspartate Amino Transf (AST/SGOT) 23, Alanine Aminotransferase (ALT/SGPT) 38, Alkaline Phosphatase 89, C-Reactive Protein, Quantitative < 0.4, Total Protein 6.1L, Albumin 2.7L, Globulin 3.4, Albumin/Globulin Ratio 0.8L, Triglycerides Level 148 , Cholesterol Level 146, LDL Cholesterol 68, HDL Cholesterol 62H, Cholesterol/ HDL Ratio 2.4L, Vitamin B12 Level 650, Folate 12.7 05/06/17 12:25: Arterial Blood pH 7.235*L, Arterial Blood Partial Pressure CO2 24.6*L, Arterial Blood Partial Pressure O2 76.5, Arterial Blood HCO3 10.2L, Arterial Blood Oxygen Saturation 95.2, Arterial Blood Base Excess -15.8, Pierre Test Positive 05/06/17 18:00: Urine Color Pale yellow, Urine Appearance Clear, Urine pH 5, Urine Specific [place] 1.005, Urine Protein 2+H, Urine Glucose (UA) Negative, Urine Ketones 3+H , Urine Occult Blood Negative, Urine Nitrite Negative, Urine Bilirubin Negative , Urine Urobilinogen Normal, Urine Leukocyte Esterase Negative, Urine RBC 0-2, Urine WBC 0-2, Urine Squamous Epithelial Cells Occasional, Urine Bacteria Occasional, Urine Opiates Screen Negative, Urine Barbiturates Screen Negative, Phencyclidine (PCP) Screen Negative, Urine Amphetamines Screen Negative, Urine Benzodiazepines Screen Negative, Urine Cocaine Screen Negative, Urine Marijuana (THC) Screen Negative 05/07/17 03:45: White Blood Count 5.2, Red Blood Count 2.70L, Hemoglobin 8.8L, Hematocrit 25.9L , Mean Corpuscular Volume 96, Mean Corpuscular Hemoglobin 32.4H, Mean Corpuscular Hemoglobin Concent 33.9, Red Cell Distribution Width 15.3H, Platelet Count 300, Mean Platelet Volume 5.7L, Neutrophils (%) (Auto) 57.7, Lymphocytes (%) (Auto) 30.7, Monocytes (%) (Auto) 9.7, Eosinophils (%) (Auto) 0.5, Basophils (%) (Auto) 1.4, Sodium Level 139, Potassium Level 3.0L, Chloride Level 108H, Carbon Dioxide Level 20L, Anion Gap 11, Blood Urea Nitrogen 7, Creatinine 1.4H, Estimat Glomerular Filtration Rate 49.3, Glucose Level 131H, Calcium Level 6.9L, Phosphorus Level 1.0L, Magnesium Level 1.0L, Total Bilirubin 0.4, Aspartate Amino Transf (AST/SGOT) 26, Alanine Aminotransferase ( ALT/SGPT) 32, Alkaline Phosphatase 79, C-Reactive Protein, Quantitative < 0.4, Total Protein 5.3L, Albumin 2.2L, Globulin 3.1, Albumin/Globulin Ratio 0.7L, Erythrocyte Sedimentation Rate 38H, Amylase Level 58, Lipase 206 Height (Feet): 5 Height (Inches): 4.00 Weight (Pounds): 129 General Appearance: no apparent distress Cardiovascular: regular rhythm Respiratory/Chest: lungs clear Abdomen: soft Objective no change in PE KYMBERLY SEAMAN May 07, 2017 11:10
[2017-05-07] MEDS ORDERED: NovoLOG Insulin Flexpen SUBQ SCH ×3 (11:30→11:50)
[2017-05-07] MEDS: Potassium Phosphate 30 MM in NS 275 ML IV ONE ×2 (12:40→14:05)
[2017-05-07] MEDS ORDERED: Phospha 250 Neutral tab ORAL SCH (13:00)
[2017-05-07] MEDS: Phospha 250 Neutral tab ORAL SCH ×2 (14:06→17:12)
--- NOTE | 2017-05-07 15:23 | GI Progress Note ---
Assessment/Plan Problems: (1) Diabetic ketoacidosis, type I ICD Codes: E10.10 - Type 1 diabetes mellituswith ketoacidosis without coma SNOMED: 891229751 (2) Dehydration ICD Codes: E86.0 - Dehydration SNOMED: 03500784 (3) Hypoalbuminemia ICD Codes: E88.09 - Other disorders of plasma-protein metabolism, not elsewhere classified SNOMED: 738517959 (4) Pancreatitis ICD Codes: K85.90 - Acute pancreatitis without necrosis or infection, unspecified SNOMED: 57191483 (5) Non-compliance with treatment ICD Codes: Z91.19 - Non-compliance with treatment SNOMED: 2646980 (6) Diabetic gastroparesis ICD Codes: E11.43 - Diabetic gastroparesis SNOMED: 20047498 (7) GERD (gastroesophageal reflux disease) ICD Codes: K21.9 - Gastro-esophageal reflux disease without esophagitis SNOMED: 585353530 (8) DKA (diabetic ketoacidoses) ICD Codes: E13.10 - Other specified diabetes mellitus with ketoacidosis without coma SNOMED: 18116754, 891534045 Status: stable Status Narrative Discussed with Dr. Patel. Assessment/Plan DATE OF PROCEDURE: 04/22/2015 PROCEDURE: Upper endoscopy with biopsy. SUMMARY OF FINDINGS: 1. Esophagitis. 2. Gastritis, status post biopsy. anemia 2/2 renal disease elevated lipase utox negative adv diet as tolerated DM mgmt follow lipase prn transfusions ppi fu labs Subjective Gastrointestinal/Abdominal: Reports: abdominal pain Objective Last 24 Hour Vital Signs Date Time Temp Pulse Resp B/P (MAP) Pulse Ox O2 Delivery O2 Flow Rate FiO2 05/07/17 12:00 80 16 110/50 100 Room Air 05/07/17 11:30 94 13 112/54 98 Room Air 05/07/17 11:00 95 14 103/49 100 Room Air 05/07/17 10:00 108 14 122/48 100 Room Air 05/07/17 09:29 161/68 05/07/17 09:00 101 14 161/68 100 Room Air 05/07/17 08:43 05/07/17 08:00 98.8 85 12 151/75 99 Room Air 05/07/17 08:00 82 05/07/17 07:30 88 14 161/65 99 Room Air 05/07/17 07:00 88 14 90/35 99 Room Air 05/07/17 06:40 98.0 05/07/17 06:00 82 14 166/70 99 Room Air 05/07/17 05:00 89 14 136/66 99 Room Air 05/07/17 04:00 90 05/07/17 04:00 98.0 88 15 107/41 98 Room Air 05/07/17 03:00 93 14 133/50 99 Room Air 05/07/17 02:00 84 14 173/86 99 Room Air 05/07/17 01:33 179/66 05/07/17 01:30 93 14 179/93 99 Room Air 05/07/17 01:00 93 14 175/66 99 Room Air 05/07/17 00:00 98.7 87 15 130/70 98 Room Air 05/07/17 00:00 84 05/06/17 23:30 89 14 148/74 99 Room Air 05/06/17 23:00 89 14 173/81 99 Room Air 05/06/17 22:00 90 14 167/80 99 Room Air 05/06/17 21:00 92 14 99/43 99 Room Air 05/06/17 20:00 92 05/06/17 20:00 98.7 91 15 136/61 98 Room Air 05/06/17 19:00 84 14 154/72 99 Room Air 05/06/17 18:00 95 14 142/69 99 Room Air 05/06/17 17:00 92 16 136/68 98 Room Air 05/06/17 16:00 98.7 90 15 111/49 98 Room Air 05/06/17 16:00 93 Intake and Output 05/07/17 05/08/17 19:00 07:00 Intake Total 787.5 ml Output Total 325 ml Balance 462.5 ml Intake Oral 570 ml IV Total 197.5 ml Other 20 ml Output Urine Total 325 ml Laboratory Tests Test 05/06/17 18:00 05/07/17 03:45 Urine Color Pale yellow Urine Appearance Clear Urine pH 5 (4.5-8.0) Urine Specific [place] 1.005 (1.005-1.035) Urine Protein 2+ (NEGATIVE) H Urine Glucose (UA) Negative (NEGATIVE) Urine Ketones 3+ (NEGATIVE) H Urine Occult Blood Negative (NEGATIVE) Urine Nitrite Negative (NEGATIVE) Urine Bilirubin Negative (NEGATIVE) Urine Urobilinogen Normal MG/DL (0.0-1.0) Urine Leukocyte Esterase Negative (NEGATIVE) Urine RBC 0-2 /HPF (0 - 2) Urine WBC 0-2 /HPF (0 - 2) Urine Squamous Epithelial Cells Occasional /LPF Urine Bacteria Occasional /HPF (NONE) Urine Opiates Screen Negative (NEGATIVE) Urine Barbiturates Screen Negative (NEGATIVE) Phencyclidine (PCP) Screen Negative (NEGATIVE) Urine Amphetamines Screen Negative (NEGATIVE) Urine Benzodiazepines Screen Negative (NEGATIVE) Urine Cocaine Screen Negative (NEGATIVE) Urine Marijuana (THC) Screen Negative (NEGATIVE) White Blood Count 5.2 K/UL (4.8-10.8) Red Blood Count 2.70 M/UL (4.20-5.40) L Hemoglobin 8.8 G/DL (12.0-16.0) L Hematocrit 25.9 % (37.0-47.0) L Mean Corpuscular Volume 96 FL (80-99) Mean Corpuscular Hemoglobin 32.4 PG (27.0-31.0) H Mean Corpuscular Hemoglobin Concent 33.9 G/DL (32.0-36.0) Red Cell Distribution Width 15.3 % (11.6-14.8) H Platelet Count 300 K/UL (150-450) Mean Platelet Volume 5.7 FL (6.5-10.1) L Neutrophils (%) (Auto) 57.7 % (45.0-75.0) Lymphocytes (%) (Auto) 30.7 % (20.0-45.0) Monocytes (%) (Auto) 9.7 % (1.0-10.0) Eosinophils (%) (Auto) 0.5 % (0.0-3.0) Basophils (%) (Auto) 1.4 % (0.0-2.0) Erythrocyte Sedimentation Rate 38 MM/HR (0-20) H Sodium Level 139 MMOL/L (136-145) Potassium Level 3.0 MMOL/L (3.5-5.1) L Chloride Level 108 MMOL/L (98-107) H Carbon Dioxide Level 20 MMOL/L (21-32) L Anion Gap 11 mmol/L (5-15) Blood Urea Nitrogen 7 mg/dL (7-18) Creatinine 1.4 MG/DL (0.55-1.30) H Estimat Glomerular Filtration Rate 49.3 mL/min (>60) Glucose Level 131 MG/DL (74-106) H Calcium Level 6.9 MG/DL (8.5-10.1) L Phosphorus Level 1.0 MG/DL (2.5-4.9) L Magnesium Level 1.0 MG/DL (1.8-2.4) L Total Bilirubin 0.4 MG/DL (0.2-1.0) Aspartate Amino Transf (AST/SGOT) 26 U/L (15-37) Alanine Aminotransferase (ALT/SGPT) 32 U/L (12-78) Alkaline Phosphatase 79 U/L (46-116) C-Reactive Protein, Quantitative < 0.4 mg/dL (0.00-0.90) Total Protein 5.3 G/DL (6.4-8.2) L Albumin 2.2 G/DL (3.4-5.0) L Globulin 3.1 g/dL Albumin/Globulin Ratio 0.7 (1.0-2.7) L Amylase Level 58 U/L (25-115) Lipase 206 U/L (73-393) Microbiology Date/Time Source Procedure Growth Status 05/06/17 18:00 Urine,Clean Catch Urine Culture - Preliminary NO GROWTH Resulted Height (Feet): 5 Height (Inches): 4.00 Weight (Pounds): 129 General Appearance: WD/WN, no apparent distress, alert Cardiovascular: normal rate Respiratory/Chest: normal breath sounds, no respiratory distress Abdominal Exam: normal bowel sounds, non tender, soft Extremities: normal range of motion, non-tender Venus Hart N.PVenkatesh May 07, 2017 15:23
--- NOTE | 2017-05-07 15:44 | Internal Med Progress Note ---
Subjective Date of Service: May 07, 2017 Physician Name Christos Wright Attending Physician Aries Hardin MD Current Medications Medications (Trade) Dose Ordered Sig/Lizbeth Route PRN Reason Start Time Stop Time Status Last Admin Dose Admin Dextrose (Dextrose 50%) STAT PRN IV Hypoglycemia 05/08/17 13:00 06/06/17 12:59 Heparin Sodium (Porcine) (Heparin 5000 units/ml) 5,000 units EVERY 12 HOURS SUBQ 05/07/17 21:00 06/05/17 20:59 Insulin Aspart (NovoLOG) BEFORE MEALS AND HS SUBQ 05/07/17 16:30 06/06/17 11:29 Insulin Aspart (NovoLOG) 4 units NOVOTIAC SUBQ 05/07/17 16:50 06/06/17 11:49 Insulin Detemir (Levemir) 18 units BEDTIME SUBQ 05/07/17 21:00 06/06/17 20:59 Metoclopramide HCl (Reglan) 5 mg TIAC ORAL 05/07/17 16:30 06/06/17 16:29 Morphine Sulfate (Morphine Sulfate) 2 mg Q4H PRN IV PAIN 4-10 05/07/17 13:00 05/13/17 12:59 Ondansetron HCl (Zofran) 4 mg Q6H PRN IVP Nausea & Vomiting 05/07/17 13:00 06/05/17 12:59 Pantoprazole (Protonix) 40 mg ACBREAKFAST ORAL 05/08/17 06:30 06/06/17 08:59 Phosphorus (Phospha 250 Neutral) 500 mg THREE TIMES A DAY ORAL 05/07/17 13:00 06/06/17 12:59 05/07/17 14:06 Potassium Phosphate 30 mm/ Sodium Chloride 285 ml @ 47.5 mls/hr ONCE ONCE IV 05/07/17 13:00 05/07/17 18:59 05/07/17 14:05 Potassium Chloride (K-Dur) 40 meq DAILY ORAL 05/08/17 09:00 06/06/17 09:59 Sodium Chloride 1,000 ml @ 50 mls/hr Q20H IV 05/07/17 13:00 06/06/17 12:59 05/07/17 12:40 Allergies: Coded Allergies: No Known Allergies (Unverified , 04/24/14) ROS Limited/Unobtainable: No Constitutional: Reports: no symptoms HEENT: Reports: no symptoms Cardiovascular: Reports: no symptoms Respiratory: Reports: no symptoms Gastrointestinal/Abdominal: Reports: no symptoms Genitourinary: Reports: no symptoms Neurologic/Psychiatric: Reports: no symptoms Subjective 46 YO type I diabetic admitted with hyperglycemia. Cover for Int Alejo-Dr Hardin. Objective Last Vital Signs Date Time Temp Pulse Resp B/P (MAP) Pulse Ox O2 Delivery O2 Flow Rate FiO2 05/07/17 12:00 80 16 110/50 100 Room Air 05/07/17 08:00 98.8 05/06/17 03:45 4.0 General Appearance: WD/WN, no apparent distress, alert EENT: PERRL/EOMI, normal ENT inspection Neck: non-tender, normal alignment, supple Cardiovascular: normal peripheral pulses, normal rate, regular rhythm, no gallop/murmur, no JVD Respiratory/Chest: chest wall non-tender, lungs clear, normal breath sounds, no respiratory distress, no accessory muscle use Abdomen: normal bowel sounds, non tender, soft, no organomegaly, no mass Extremities: normal range of motion 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, no motor/sensory deficits Skin: normal pigmentation, warm/dry Laboratory Tests Test 05/06/17 18:00 05/07/17 03:45 Urine Color Pale yellow Urine Appearance Clear Urine pH 5 (4.5-8.0) Urine Specific Collins 1.005 (1.005-1.035) Urine Protein 2+ (NEGATIVE) H Urine Glucose (UA) Negative (NEGATIVE) Urine Ketones 3+ (NEGATIVE) H Urine Occult Blood Negative (NEGATIVE) Urine Nitrite Negative (NEGATIVE) Urine Bilirubin Negative (NEGATIVE) Urine Urobilinogen Normal MG/DL (0.0-1.0) Urine Leukocyte Esterase Negative (NEGATIVE) Urine RBC 0-2 /HPF (0 - 2) Urine WBC 0-2 /HPF (0 - 2) Urine Squamous Epithelial Cells Occasional /LPF Urine Bacteria Occasional /HPF (NONE) Urine Opiates Screen Negative (NEGATIVE) Urine Barbiturates Screen Negative (NEGATIVE) Phencyclidine (PCP) Screen Negative (NEGATIVE) Urine Amphetamines Screen Negative (NEGATIVE) Urine Benzodiazepines Screen Negative (NEGATIVE) Urine Cocaine Screen Negative (NEGATIVE) Urine Marijuana (THC) Screen Negative (NEGATIVE) White Blood Count 5.2 K/UL (4.8-10.8) Red Blood Count 2.70 M/UL (4.20-5.40) L Hemoglobin 8.8 G/DL (12.0-16.0) L Hematocrit 25.9 % (37.0-47.0) L Mean Corpuscular Volume 96 FL (80-99) Mean Corpuscular Hemoglobin 32.4 PG (27.0-31.0) H Mean Corpuscular Hemoglobin Concent 33.9 G/DL (32.0-36.0) Red Cell Distribution Width 15.3 % (11.6-14.8) H Platelet Count 300 K/UL (150-450) Mean Platelet Volume 5.7 FL (6.5-10.1) L Neutrophils (%) (Auto) 57.7 % (45.0-75.0) Lymphocytes (%) (Auto) 30.7 % (20.0-45.0) Monocytes (%) (Auto) 9.7 % (1.0-10.0) Eosinophils (%) (Auto) 0.5 % (0.0-3.0) Basophils (%) (Auto) 1.4 % (0.0-2.0) Erythrocyte Sedimentation Rate 38 MM/HR (0-20) H Sodium Level 139 MMOL/L (136-145) Potassium Level 3.0 MMOL/L (3.5-5.1) L Chloride Level 108 MMOL/L (98-107) H Carbon Dioxide Level 20 MMOL/L (21-32) L Anion Gap 11 mmol/L (5-15) Blood Urea Nitrogen 7 mg/dL (7-18) Creatinine 1.4 MG/DL (0.55-1.30) H Estimat Glomerular Filtration Rate 49.3 mL/min (>60) Glucose Level 131 MG/DL (74-106) H Calcium Level 6.9 MG/DL (8.5-10.1) L Phosphorus Level 1.0 MG/DL (2.5-4.9) L Magnesium Level 1.0 MG/DL (1.8-2.4) L Total Bilirubin 0.4 MG/DL (0.2-1.0) Aspartate Amino Transf (AST/SGOT) 26 U/L (15-37) Alanine Aminotransferase (ALT/SGPT) 32 U/L (12-78) Alkaline Phosphatase 79 U/L (46-116) C-Reactive Protein, Quantitative < 0.4 mg/dL (0.00-0.90) Total Protein 5.3 G/DL (6.4-8.2) L Albumin 2.2 G/DL (3.4-5.0) L Globulin 3.1 g/dL Albumin/Globulin Ratio 0.7 (1.0-2.7) L Amylase Level 58 U/L (25-115) Lipase 206 U/L (73-393) Microbiology Date/Time Source Procedure Growth Status 05/06/17 00:55 Blood Blood Culture - Preliminary NO GROWTH AFTER 24 HOURS Resulted 05/06/17 00:40 Blood Blood Culture - Preliminary NO GROWTH AFTER 24 HOURS Resulted 05/06/17 04:45 Nasal Nares MRSA Culture - Final NO METHICILLIN RESISTANT STAPH AUREUS... Complete 05/06/17 18:00 Urine,Clean Catch Urine Culture - Preliminary NO GROWTH Resulted Intake and Output 05/07/17 05/08/17 19:00 07:00 Intake Total 787.5 ml Output Total 325 ml Balance 462.5 ml Intake Oral 570 ml IV Total 197.5 ml Other 20 ml Output Urine Total 325 ml Assessment/Plan Problem List: (1) Hyperglycemia Assessment & Plan: Improving. Cont levemir and novolog sliding scale (2) DKA (diabetic ketoacidosis) Assessment & Plan: Await endocrinology consult. Continue levemir and novolog sliding scale. (3) Diabetic nephropathy Assessment & Plan: see nephrology note. (4) Renal insufficiency Assessment & Plan: See nephrology note. (5) SOB (shortness of breath) (6) Diabetes mellitus type 1, uncontrolled, insulin dependent (7) Hypertension (8) Renal failure (9) Diabetic gastroparesis (10) GERD (gastroesophageal reflux disease) (11) Major depression Status: CHRISTOS Delgado May 07, 2017 15:44
[2017-05-07] MEDS ORDERED: D5 1/2NS 1000ml IV ONE (16:01)
[2017-05-07] MEDS ORDERED: 1/2 NS 1000ml IV ONE (16:01)
[2017-05-07] MEDS: NovoLOG Insulin Flexpen SUBQ SCH ×3 (17:13→20:44)
[2017-05-07] MEDS ORDERED: Levemir Flexpen SUBQ SCH ×2 (21:00)
[2017-05-08] VITALS (7 sets, daily range): BP systolic 127–169; BP diastolic 65–96
[2017-05-08] MEDS: Morphine Sulfate 2mg/ml Inj IV PRN ×4 (00:10→20:40)
[2017-05-08] MEDS: NovoLOG Insulin Flexpen SUBQ SCH ×7 (05:04→20:44)
[2017-05-08 05:33] LABS: BASOPHILS % (AUTO) 0.8 % (0.0-2.0); EOSINOPHILS % (AUTO) 0.2 % (0.0-3.0); LYMPHOCYTES % (AUTO) 25.3 % (20.0-45.0); MEAN CORPUSCULAR HEMOGLOBIN 30.7 PG (27.0-31.0); MEAN CORPUSCULAR HGB CONC 30.5 G/DL (32.0-36.0); MEAN CORPUSCULAR VOLUME 101 FL (80-99); MEAN PLATELET VOLUME 5.8 FL (6.5-10.1); MONOCYTES % (AUTO) 7.6 % (1.0-10.0); NEUTROPHILS % (AUTO) 66.2 % (45.0-75.0); PLATELET COUNT 343 K/UL (150-450); RED BLOOD COUNT 3.34 M/UL (4.20-5.40); RED CELL DISTRIBUTION WIDTH 15.8 % (11.6-14.8); WHITE BLOOD COUNT 8.1 K/UL (4.8-10.8)
[2017-05-08 05:39] LABS: ALANINE AMINOTRANSFERASE 47 U/L (12-78); ALBUMIN/GLOBULIN RATIO 0.7 (1.0-2.7); ANION GAP 26 mmol/L (5-15); ASPARTATE AMINO TRANSFERASE 70 U/L (15-37); CALCIUM 7.7 MG/DL (8.5-10.1); CHLORIDE 101 MMOL/L (98-107); CREATININE 1.7 MG/DL (0.55-1.30); GLOMERULAR FILTRATION RATE 39.4 mL/min (>60); MAGNESIUM 1.9 MG/DL (1.8-2.4); PHOSPHORUS 3.3 MG/DL (2.5-4.9); POTASSIUM 4.5 MMOL/L (3.5-5.1); SODIUM 134 MMOL/L (136-145); TOTAL PROTEIN 6.5 G/DL (6.4-8.2)
[2017-05-08 05:46] LABS: CARBON DIOXIDE 8 MMOL/L (21-32)
--- NOTE | 2017-05-08 07:17 | General Progress Note ---
Assessment/Plan Problem List: (1) DKA (diabetic ketoacidoses) ICD Codes: E13.10 - Other specified diabetes mellitus with ketoacidosis without coma SNOMED: 71256399, 270223378 (2) Diabetes type 1, uncontrolled ICD Codes: E10.65 - Type 1 diabetes mellitus with hyperglycemia SNOMED: 152865136, 914748265 (3) HTN (hypertension) ICD Codes: I10 - HTN (hypertension) SNOMED: 98076444 Assessment/Plan change Levemir 18 units to every am continue Novolog 4 units ac tid + SSI continue IVF Subjective Allergies: Coded Allergies: No Known Allergies (Unverified , 04/24/14) All Systems: reviewed and negative except above Subjective elevated glucose this morning after she had a sandwich and she did not receive Levemir last night last night BG was in 80s Objective Last 24 Hour Vital Signs Date Time Temp Pulse Resp B/P (MAP) Pulse Ox O2 Delivery O2 Flow Rate FiO2 05/08/17 04:00 98.1 101 20 127/68 98 Room Air 05/08/17 00:41 98.1 05/08/17 00:00 98.2 101 20 143/78 99 Room Air 05/07/17 20:00 98.1 92 20 133/75 97 Room Air 05/07/17 12:00 80 16 110/50 100 Room Air 05/07/17 11:30 94 13 112/54 98 Room Air 05/07/17 11:00 95 14 103/49 100 Room Air 05/07/17 10:00 108 14 122/48 100 Room Air 05/07/17 09:29 161/68 05/07/17 09:00 101 14 161/68 100 Room Air 05/07/17 08:43 05/07/17 08:00 98.8 85 12 151/75 99 Room Air 05/07/17 08:00 82 05/07/17 07:30 88 14 161/65 99 Room Air Laboratory Tests 05/08/17 04:50: White Blood Count 8.1#, Red Blood Count 3.34L, Hemoglobin 10.2L, Hematocrit 33.5L, Mean Corpuscular Volume 101H, Mean Corpuscular Hemoglobin 30.7, Mean Corpuscular Hemoglobin Concent 30.5L, Red Cell Distribution Width 15.8H, Platelet Count 343, Mean Platelet Volume 5.8L, Neutrophils (%) (Auto) 66.2, Lymphocytes (%) (Auto) 25.3, Monocytes (%) (Auto) 7.6, Eosinophils (%) (Auto) 0.2, Basophils (%) (Auto) 0.8, Sodium Level 134L, Potassium Level 4.5, Chloride Level 101, Carbon Dioxide Level 8*L, Anion Gap 26H, Blood Urea Nitrogen 14, Creatinine 1.7H, Estimat Glomerular Filtration Rate 39.4, Glucose Level 616#*H, Calcium Level 7.7L, Phosphorus Level 3.3, Magnesium Level 1.9, Total Bilirubin 0.5, Aspartate Amino Transf (AST/SGOT) 70H, Alanine Aminotransferase (ALT/SGPT) 47, Alkaline Phosphatase 131H, Total Protein 6.5, Albumin 2.7L, Globulin 3.8, Albumin/Globulin Ratio 0.7L Height (Feet): 5 Height (Inches): 4.00 Weight (Pounds): 135 General Appearance: no apparent distress Neck: normal alignment Cardiovascular: normal rate Respiratory/Chest: lungs clear Abdomen: normal bowel sounds Objective Current Medications Medications (Trade) Dose Ordered Sig/Lizbeth Route PRN Reason Start Time Stop Time Status Last Admin Dose Admin Dextrose (Dextrose 50%) STAT PRN IV Hypoglycemia 05/08/17 13:00 06/06/17 12:59 Heparin Sodium (Porcine) (Heparin 5000 units/ml) 5,000 units EVERY 12 HOURS SUBQ 05/07/17 21:00 06/05/17 20:59 Insulin Aspart (NovoLOG) BEFORE MEALS AND HS SUBQ 05/07/17 16:30 06/06/17 11:29 05/08/17 05:04 Insulin Aspart (NovoLOG) 4 units NOVOTIAC SUBQ 05/07/17 16:50 06/06/17 11:49 05/08/17 05:05 Insulin Detemir (Levemir) 18 units BEDTIME SUBQ 05/07/17 21:00 06/06/17 20:59 Metoclopramide HCl (Reglan) 5 mg TIAC ORAL 05/07/17 16:30 06/06/17 16:29 05/08/17 05:31 Morphine Sulfate (Morphine Sulfate) 2 mg Q4H PRN IV PAIN 4-10 05/07/17 13:00 05/13/17 12:59 05/08/17 00:10 Ondansetron HCl (Zofran) 4 mg Q6H PRN IVP Nausea & Vomiting 05/07/17 13:00 06/05/17 12:59 Pantoprazole (Protonix) 40 mg ACBREAKFAST ORAL 05/08/17 06:30 06/06/17 08:59 05/08/17 05:31 Phosphorus (Phospha 250 Neutral) 500 mg THREE TIMES A DAY ORAL 05/07/17 13:00 06/06/17 12:59 05/07/17 17:12 Potassium Chloride (K-Dur) 40 meq DAILY ORAL 05/08/17 09:00 06/06/17 09:59 Sodium Chloride 1,000 ml @ 50 mls/hr Q20H IV 05/07/17 13:00 06/06/17 12:59 05/07/17 12:40 Item Value Date Time Bedside Blood Glucose Critically High Result 05/08/17 0604 Bedside Blood Glucose 88 mg/dl 05/07/17 2044 Bedside Blood Glucose 146 mg/dl H 05/07/17 1714 Bedside Blood Glucose 339 mg/dl H 05/07/17 1147 Bedside Blood Glucose 160 mg/dl H 05/07/17 0800 Bedside Blood Glucose 210 mg/dl H 05/07/17 0657 IVY SULLIVAN May 08, 2017 07:17
[2017-05-08] MEDS: Heparin 5000 units/ml inj SUBQ SCH ×2 (09:00→20:41)
[2017-05-08] MEDS: Phospha 250 Neutral tab ORAL SCH ×3 (10:18→16:59)
[2017-05-08] MEDS: Levemir Flexpen SUBQ SCH (10:20)
--- NOTE | 2017-05-08 11:13 | GI Progress Note ---
Assessment/Plan Problems: (1) Diabetic ketoacidosis, type I ICD Codes: E10.10 - Type 1 diabetes mellituswith ketoacidosis without coma SNOMED: 548549375 (2) Dehydration ICD Codes: E86.0 - Dehydration SNOMED: 59616923 (3) Hypoalbuminemia ICD Codes: E88.09 - Other disorders of plasma-protein metabolism, not elsewhere classified SNOMED: 156839366 (4) Pancreatitis ICD Codes: K85.90 - Acute pancreatitis without necrosis or infection, unspecified SNOMED: 77326705 (5) Non-compliance with treatment ICD Codes: Z91.19 - Non-compliance with treatment SNOMED: 2125811 (6) Diabetic gastroparesis ICD Codes: E11.43 - Diabetic gastroparesis SNOMED: 24449780 (7) GERD (gastroesophageal reflux disease) ICD Codes: K21.9 - Gastro-esophageal reflux disease without esophagitis SNOMED: 081848934 (8) DKA (diabetic ketoacidoses) ICD Codes: E13.10 - Other specified diabetes mellitus with ketoacidosis without coma SNOMED: 29858199, 170951372 Status: unchanged Status Narrative Discussed with Dr. Patel. Assessment/Plan DATE OF PROCEDURE: 04/22/2015 PROCEDURE: Upper endoscopy with biopsy. SUMMARY OF FINDINGS: 1. Esophagitis. 2. Gastritis, status post biopsy. anemia 2/2 renal disease elevated lipase utox negative adv diet as tolerated DM mgmt follow lipase prn transfusions ppi fu labs Subjective Gastrointestinal/Abdominal: Reports: abdominal pain Objective Last 24 Hour Vital Signs Date Time Temp Pulse Resp B/P (MAP) Pulse Ox O2 Delivery O2 Flow Rate FiO2 05/08/17 08:12 98.4 83 18 140/83 100 05/08/17 04:00 98.1 101 20 127/68 98 Room Air 05/08/17 00:41 98.1 05/08/17 00:00 98.2 101 20 143/78 99 Room Air 05/07/17 20:00 98.1 92 20 133/75 97 Room Air 05/07/17 12:00 80 16 110/50 100 Room Air 05/07/17 11:30 94 13 112/54 98 Room Air Intake and Output 05/08/17 05/09/17 19:00 07:00 Intake Total 410 ml Balance 410 ml Intake Oral 360 ml IV Total 50 ml Laboratory Tests Test 05/08/17 04:50 White Blood Count 8.1 K/UL (4.8-10.8) # Red Blood Count 3.34 M/UL (4.20-5.40) L Hemoglobin 10.2 G/DL (12.0-16.0) L Hematocrit 33.5 % (37.0-47.0) L Mean Corpuscular Volume 101 FL (80-99) H Mean Corpuscular Hemoglobin 30.7 PG (27.0-31.0) Mean Corpuscular Hemoglobin Concent 30.5 G/DL (32.0-36.0) L Red Cell Distribution Width 15.8 % (11.6-14.8) H Platelet Count 343 K/UL (150-450) Mean Platelet Volume 5.8 FL (6.5-10.1) L Neutrophils (%) (Auto) 66.2 % (45.0-75.0) Lymphocytes (%) (Auto) 25.3 % (20.0-45.0) Monocytes (%) (Auto) 7.6 % (1.0-10.0) Eosinophils (%) (Auto) 0.2 % (0.0-3.0) Basophils (%) (Auto) 0.8 % (0.0-2.0) Sodium Level 134 MMOL/L (136-145) L Potassium Level 4.5 MMOL/L (3.5-5.1) Chloride Level 101 MMOL/L (98-107) Carbon Dioxide Level 8 MMOL/L (21-32) *L Anion Gap 26 mmol/L (5-15) H Blood Urea Nitrogen 14 mg/dL (7-18) Creatinine 1.7 MG/DL (0.55-1.30) H Estimat Glomerular Filtration Rate 39.4 mL/min (>60) Glucose Level 616 MG/DL (74-106) #*H Calcium Level 7.7 MG/DL (8.5-10.1) L Phosphorus Level 3.3 MG/DL (2.5-4.9) Magnesium Level 1.9 MG/DL (1.8-2.4) Total Bilirubin 0.5 MG/DL (0.2-1.0) Aspartate Amino Transf (AST/SGOT) 70 U/L (15-37) H Alanine Aminotransferase (ALT/SGPT) 47 U/L (12-78) Alkaline Phosphatase 131 U/L (46-116) H Total Protein 6.5 G/DL (6.4-8.2) Albumin 2.7 G/DL (3.4-5.0) L Globulin 3.8 g/dL Albumin/Globulin Ratio 0.7 (1.0-2.7) L Height (Feet): 5 Height (Inches): 4.00 Weight (Pounds): 135 General Appearance: WD/WN, no apparent distress, alert, thin Cardiovascular: normal rate Respiratory/Chest: normal breath sounds, no respiratory distress Abdominal Exam: normal bowel sounds, non tender, soft Extremities: normal range of motion, non-tender Venus Hart NShahla May 08, 2017 11:13
--- NOTE | 2017-05-08 11:37 | Internal Med Progress Note ---
Subjective Date of Service: May 08, 2017 Physician Name Anastacio Jacobsen Attending Physician Aries Hardin MD Current Medications Medications (Trade) Dose Ordered Sig/Lizbeth Route PRN Reason Start Time Stop Time Status Last Admin Dose Admin Dextrose (Dextrose 50%) STAT PRN IV Hypoglycemia 05/08/17 13:00 06/06/17 12:59 Heparin Sodium (Porcine) (Heparin 5000 units/ml) 5,000 units EVERY 12 HOURS SUBQ 05/07/17 21:00 06/05/17 20:59 Insulin Aspart (NovoLOG) BEFORE MEALS AND HS SUBQ 05/07/17 16:30 06/06/17 11:29 05/08/17 05:04 Insulin Aspart (NovoLOG) 4 units NOVOTIAC SUBQ 05/07/17 16:50 06/06/17 11:49 05/08/17 05:05 Insulin Detemir (Levemir) 18 units DAILY SUBQ 05/08/17 09:00 06/06/17 20:59 05/08/17 10:20 Metoclopramide HCl (Reglan) 5 mg TIAC ORAL 05/07/17 16:30 06/06/17 16:29 05/08/17 05:31 Morphine Sulfate (Morphine Sulfate) 2 mg Q4H PRN IV PAIN 4-10 05/07/17 13:00 05/13/17 12:59 05/08/17 09:17 Ondansetron HCl (Zofran) 4 mg Q6H PRN IVP Nausea & Vomiting 05/07/17 13:00 06/05/17 12:59 Pantoprazole (Protonix) 40 mg ACBREAKFAST ORAL 05/08/17 06:30 06/06/17 08:59 05/08/17 05:31 Phosphorus (Phospha 250 Neutral) 500 mg THREE TIMES A DAY ORAL 05/07/17 13:00 06/06/17 12:59 05/08/17 10:18 Potassium Chloride (K-Dur) 40 meq DAILY ORAL 05/08/17 09:00 06/06/17 09:59 05/08/17 10:17 Sodium Chloride 1,000 ml @ 50 mls/hr Q20H IV 05/07/17 13:00 06/06/17 12:59 05/08/17 09:17 Allergies: Coded Allergies: No Known Allergies (Unverified , 04/24/14) ROS Limited/Unobtainable: No Constitutional: Reports: no symptoms HEENT: Reports: no symptoms Cardiovascular: Reports: no symptoms Respiratory: Reports: no symptoms Gastrointestinal/Abdominal: Reports: no symptoms Genitourinary: Reports: no symptoms Neurologic/Psychiatric: Reports: no symptoms Subjective 46 YO type I diabetic admitted with hyperglycemia. Uncontrolled - Blood glucose >600 this am. Cover for Int Med-Dr Hardin. Objective Last Vital Signs Date Time Temp Pulse Resp B/P (MAP) Pulse Ox O2 Delivery O2 Flow Rate FiO2 05/08/17 08:12 98.4 83 18 140/83 100 05/08/17 04:00 Room Air 05/06/17 03:45 4.0 Laboratory Tests Test 05/08/17 04:50 White Blood Count 8.1 K/UL (4.8-10.8) # Red Blood Count 3.34 M/UL (4.20-5.40) L Hemoglobin 10.2 G/DL (12.0-16.0) L Hematocrit 33.5 % (37.0-47.0) L Mean Corpuscular Volume 101 FL (80-99) H Mean Corpuscular Hemoglobin 30.7 PG (27.0-31.0) Mean Corpuscular Hemoglobin Concent 30.5 G/DL (32.0-36.0) L Red Cell Distribution Width 15.8 % (11.6-14.8) H Platelet Count 343 K/UL (150-450) Mean Platelet Volume 5.8 FL (6.5-10.1) L Neutrophils (%) (Auto) 66.2 % (45.0-75.0) Lymphocytes (%) (Auto) 25.3 % (20.0-45.0) Monocytes (%) (Auto) 7.6 % (1.0-10.0) Eosinophils (%) (Auto) 0.2 % (0.0-3.0) Basophils (%) (Auto) 0.8 % (0.0-2.0) Sodium Level 134 MMOL/L (136-145) L Potassium Level 4.5 MMOL/L (3.5-5.1) Chloride Level 101 MMOL/L (98-107) Carbon Dioxide Level 8 MMOL/L (21-32) *L Anion Gap 26 mmol/L (5-15) H Blood Urea Nitrogen 14 mg/dL (7-18) Creatinine 1.7 MG/DL (0.55-1.30) H Estimat Glomerular Filtration Rate 39.4 mL/min (>60) Glucose Level 616 MG/DL (74-106) #*H Calcium Level 7.7 MG/DL (8.5-10.1) L Phosphorus Level 3.3 MG/DL (2.5-4.9) Magnesium Level 1.9 MG/DL (1.8-2.4) Total Bilirubin 0.5 MG/DL (0.2-1.0) Aspartate Amino Transf (AST/SGOT) 70 U/L (15-37) H Alanine Aminotransferase (ALT/SGPT) 47 U/L (12-78) Alkaline Phosphatase 131 U/L (46-116) H Total Protein 6.5 G/DL (6.4-8.2) Albumin 2.7 G/DL (3.4-5.0) L Globulin 3.8 g/dL Albumin/Globulin Ratio 0.7 (1.0-2.7) L Microbiology Date/Time Source Procedure Growth Status 05/06/17 00:55 Blood Blood Culture - Preliminary NO GROWTH AFTER 48 HOURS Resulted 05/06/17 00:40 Blood Blood Culture - Preliminary NO GROWTH AFTER 48 HOURS Resulted 05/06/17 04:45 Nasal Nares MRSA Culture - Final NO METHICILLIN RESISTANT STAPH AUREUS... Complete 05/06/17 18:00 Urine,Clean Catch Urine Culture - Preliminary NO GROWTH AFTER 24 HOURS Resulted 05/06/17 04:45 Rectal Mucosa VRE Culture - Final Enterococcus Faecium - Vre Complete Intake and Output 05/08/17 05/09/17 19:00 07:00 Intake Total 410 ml Balance 410 ml Intake Oral 360 ml IV Total 50 ml Objective General Appearance: WD/WN, no apparent distress, alert EENT: PERRL/EOMI, normal ENT inspection Neck: non-tender, normal alignment, supple Cardiovascular: normal peripheral pulses, normal rate, regular rhythm, no gallop/murmur, no JVD Respiratory/Chest: chest wall non-tender, lungs clear, normal breath sounds, no respiratory distress, no accessory muscle use Abdomen: normal bowel sounds, non tender, soft, no organomegaly, no mass Extremities: normal range of motion 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 Cont levemir and novolog sliding scale. (2) DKA (diabetic ketoacidosis) Assessment & Plan: See endocrinology consult-adjust levemir and novolog sliding scale. (3) Diabetic nephropathy Assessment & Plan: see nephrology note. (4) Renal insufficiency Assessment & Plan: See nephrology note. (5) SOB (shortness of breath) (6) Diabetes mellitus type 1, uncontrolled, insulin dependent (7) Hypertension (8) Renal failure (9) Diabetic gastroparesis (10) GERD (gastroesophageal reflux disease) (11) Major depression Status: not improved ANASTACIO JACOBSEN May 08, 2017 11:37
--- NOTE | 2017-05-08 11:41 | Nephrology Progress Note ---
Assessment/Plan Problem List: (1) Urinary retention (2) ARF (acute renal failure) (3) Dehydration (4) Diabetic ketoacidosis, type I Assessment agian BS up- Bicarb low Cr up again to 1.7 1. Diabetic type 1 2. h/o Diabetic ketoacidosis (CC) 3. History of gastroesophageal reflux disease. 4. Depression. 5. Hypertension. 6. back pain 7. Anemia Plan Plan: Jay hydrate- mag and phos and K supplement as needed Keep BP in check- Monitor renal parameters and Chemistries- Urine studies Avoid Nephrotoxics Per orders Subjective ROS Limited/Unobtainable: No Constitutional: Reports: malaise Objective Objective Last 24 Hour Vital Signs Date Time Temp Pulse Resp B/P (MAP) Pulse Ox O2 Delivery O2 Flow Rate FiO2 05/08/17 08:12 98.4 83 18 140/83 100 05/08/17 04:00 98.1 101 20 127/68 98 Room Air 05/08/17 00:41 98.1 05/08/17 00:00 98.2 101 20 143/78 99 Room Air 05/07/17 20:00 98.1 92 20 133/75 97 Room Air 05/07/17 12:00 80 16 110/50 100 Room Air Intake and Output 05/08/17 05/09/17 19:00 07:00 Intake Total 410 ml Balance 410 ml Intake Oral 360 ml IV Total 50 ml Laboratory Tests 05/08/17 04:50: White Blood Count 8.1#, Red Blood Count 3.34L, Hemoglobin 10.2L, Hematocrit 33.5L, Mean Corpuscular Volume 101H, Mean Corpuscular Hemoglobin 30.7, Mean Corpuscular Hemoglobin Concent 30.5L, Red Cell Distribution Width 15.8H, Platelet Count 343, Mean Platelet Volume 5.8L, Neutrophils (%) (Auto) 66.2, Lymphocytes (%) (Auto) 25.3, Monocytes (%) (Auto) 7.6, Eosinophils (%) (Auto) 0.2, Basophils (%) (Auto) 0.8, Sodium Level 134L, Potassium Level 4.5, Chloride Level 101, Carbon Dioxide Level 8*L, Anion Gap 26H, Blood Urea Nitrogen 14, Creatinine 1.7H, Estimat Glomerular Filtration Rate 39.4, Glucose Level 616#*H, Calcium Level 7.7L, Phosphorus Level 3.3, Magnesium Level 1.9, Total Bilirubin 0.5, Aspartate Amino Transf (AST/SGOT) 70H, Alanine Aminotransferase (ALT/SGPT) 47, Alkaline Phosphatase 131H, Total Protein 6.5, Albumin 2.7L, Globulin 3.8, Albumin/Globulin Ratio 0.7L Height (Feet): 5 Height (Inches): 4.00 Weight (Pounds): 135 General Appearance: no apparent distress Objective no change in PE KYMBERLY SEAMAN May 08, 2017 11:41
--- NOTE | 2017-05-08 13:44 | Pulmonology Progress Note ---
Assessment/Plan Problems: (1) Diabetic ketoacidosis, type I (2) ARF (acute renal failure) (3) HTN (hypertension) (4) Hypertension (5) Diabetic nephropathy (6) Major depression Assessment/Plan continue IV fluids adjust insulin check electrolytes in am eating well, no nausea. Subjective ROS Limited/Unobtainable: No Constitutional: Reports: no symptoms HEENT: Repors: no symptoms Allergies: Coded Allergies: No Known Allergies (Unverified , 04/24/14) Objective Last 24 Hour Vital Signs Date Time Temp Pulse Resp B/P (MAP) Pulse Ox O2 Delivery O2 Flow Rate FiO2 05/08/17 12:59 98.3 97 18 150/90 99 05/08/17 08:12 98.4 83 18 140/83 100 05/08/17 04:00 98.1 101 20 127/68 98 Room Air 05/08/17 00:41 98.1 05/08/17 00:00 98.2 101 20 143/78 99 Room Air 05/07/17 20:00 98.1 92 20 133/75 97 Room Air Intake and Output 05/08/17 05/09/17 19:00 07:00 Intake Total 770 ml Output Total 1300 ml Balance -530 ml Intake Oral 720 ml IV Total 50 ml Output Urine Total 1300 ml # Bowel Movements 3 Objective General Appearance: WD/WN HEENT: normocephalic, anicteric Cardiovascular: normal peripheral pulses, normal rate Abdomen: normal bowel sounds, no organomegaly Genitourinary: normal external genitalia Extremities: no clubbing Skin: no lesions Lymphatic: no neck adenopathy Microbiology Date/Time Source Procedure Growth Status 05/06/17 00:55 Blood Blood Culture - Preliminary NO GROWTH AFTER 48 HOURS Resulted 05/06/17 00:40 Blood Blood Culture - Preliminary NO GROWTH AFTER 48 HOURS Resulted 05/06/17 04:45 Nasal Nares MRSA Culture - Final NO METHICILLIN RESISTANT STAPH AUREUS... Complete 05/06/17 18:00 Urine,Clean Catch Urine Culture - Preliminary NO GROWTH AFTER 24 HOURS Resulted 05/06/17 04:45 Rectal Mucosa VRE Culture - Final Enterococcus Faecium - Vre Complete Laboratory Tests 05/08/17 04:50: White Blood Count 8.1#, Red Blood Count 3.34L, Hemoglobin 10.2L, Hematocrit 33.5L, Mean Corpuscular Volume 101H, Mean Corpuscular Hemoglobin 30.7, Mean Corpuscular Hemoglobin Concent 30.5L, Red Cell Distribution Width 15.8H, Platelet Count 343, Mean Platelet Volume 5.8L, Neutrophils (%) (Auto) 66.2, Lymphocytes (%) (Auto) 25.3, Monocytes (%) (Auto) 7.6, Eosinophils (%) (Auto) 0.2, Basophils (%) (Auto) 0.8, Sodium Level 134L, Potassium Level 4.5, Chloride Level 101, Carbon Dioxide Level 8*L, Anion Gap 26H, Blood Urea Nitrogen 14, Creatinine 1.7H, Estimat Glomerular Filtration Rate 39.4, Glucose Level 616#*H, Calcium Level 7.7L, Phosphorus Level 3.3, Magnesium Level 1.9, Total Bilirubin 0.5, Aspartate Amino Transf (AST/SGOT) 70H, Alanine Aminotransferase (ALT/SGPT) 47, Alkaline Phosphatase 131H, Total Protein 6.5, Albumin 2.7L, Globulin 3.8, Albumin/Globulin Ratio 0.7L Current Medications Medications (Trade) Dose Ordered Sig/Lizbeth Route PRN Reason Start Time Stop Time Status Last Admin Dose Admin Dextrose (Dextrose 50%) STAT PRN IV Hypoglycemia 05/08/17 13:00 06/06/17 12:59 Heparin Sodium (Porcine) (Heparin 5000 units/ml) 5,000 units EVERY 12 HOURS SUBQ 05/07/17 21:00 06/05/17 20:59 Insulin Aspart (NovoLOG) BEFORE MEALS AND HS SUBQ 05/07/17 16:30 06/06/17 11:29 05/08/17 11:44 Insulin Aspart (NovoLOG) 4 units NOVOTIAC SUBQ 05/07/17 16:50 06/06/17 11:49 05/08/17 11:42 Insulin Detemir (Levemir) 18 units DAILY SUBQ 05/08/17 09:00 06/06/17 20:59 05/08/17 10:20 Metoclopramide HCl (Reglan) 5 mg TIAC ORAL 05/07/17 16:30 06/06/17 16:29 05/08/17 11:55 Morphine Sulfate (Morphine Sulfate) 2 mg Q4H PRN IV PAIN 4-10 05/07/17 13:00 05/13/17 12:59 05/08/17 09:17 Ondansetron HCl (Zofran) 4 mg Q6H PRN IVP Nausea & Vomiting 05/07/17 13:00 06/05/17 12:59 Pantoprazole (Protonix) 40 mg ACBREAKFAST ORAL 05/08/17 06:30 06/06/17 08:59 05/08/17 05:31 Phosphorus (Phospha 250 Neutral) 250 mg THREE TIMES A DAY ORAL 05/08/17 13:00 06/07/17 12:59 05/08/17 12:28 Sodium Chloride 1,000 ml @ 100 mls/hr Q10H IV 05/08/17 12:00 06/07/17 11:59 05/08/17 11:54 Tamsulosin HCl (Flomax) 0.4 mg BEDTIME ORAL 05/08/17 21:00 06/07/17 20:59 VANESSA SAGASTUME May 08, 2017 13:44
[2017-05-08] MEDS: Tamsulosin 0.4mg cap ORAL SCH (20:40)
[2017-05-09] VITALS: BP 147/81
[2017-05-09 04:39] VITALS: BP 137/72
[2017-05-09] MEDS: Morphine Sulfate 2mg/ml Inj IV PRN ×2 (05:05→11:51)
[2017-05-09] MEDS: NovoLOG Insulin Flexpen SUBQ SCH ×7 (05:06→21:24)
--- NOTE | 2017-05-09 05:15 | General Progress Note ---
Assessment/Plan Problem List: (1) Diabetic ketoacidosis, type I ICD Codes: E10.10 - Type 1 diabetes mellituswith ketoacidosis without coma SNOMED: 592119690 (2) HTN (hypertension) ICD Codes: I10 - HTN (hypertension) SNOMED: 82633220 (3) Hypertension ICD Codes: I10 - Essential (primary) hypertension SNOMED: 29588851 (4) Anemia ICD Codes: D64.9 - Anemia, unspecified SNOMED: 968191493 (5) Esophagitis ICD Codes: K20.9 - Esophagitis, unspecified SNOMED: 20082556 (6) Gastritis ICD Codes: K29.70 - Gastritis, unspecified, without bleeding SNOMED: 9006067 Assessment/Plan ppi daily management of DKA per primary team fu labs Subjective ROS Limited/Unobtainable: Yes Allergies: Coded Allergies: No Known Allergies (Unverified , 04/24/14) Subjective no event over night Objective Last 24 Hour Vital Signs Date Time Temp Pulse Resp B/P (MAP) Pulse Ox O2 Delivery O2 Flow Rate FiO2 05/09/17 04:39 97.8 94 20 137/72 100 05/09/17 00:00 97.3 86 18 147/81 99 Room Air 05/09/17 00:00 99 Room Air 05/08/17 21:10 97.0 05/08/17 20:00 97.0 85 18 137/65 94 Room Air 05/08/17 20:00 94 Room Air 05/08/17 18:23 86 137/71 05/08/17 16:59 169/96 05/08/17 16:07 97.5 91 20 169/96 95 Room Air 05/08/17 12:59 98.3 97 18 150/90 99 05/08/17 08:12 98.4 83 18 140/83 100 Height (Feet): 5 Height (Inches): 4.00 Weight (Pounds): 135 General Appearance: alert EENT: normal ENT inspection Neck: supple Cardiovascular: normal rate Respiratory/Chest: decreased breath sounds Abdomen: normal bowel sounds, non tender, soft Extremities: non-tender JALYN BANERJEE May 09, 2017 05:15
[2017-05-09 07:20] LABS: ALANINE AMINOTRANSFERASE 35 U/L (12-78); ALBUMIN/GLOBULIN RATIO 0.7 (1.0-2.7); ANION GAP 15 mmol/L (5-15); ASPARTATE AMINO TRANSFERASE 25 U/L (15-37); CALCIUM 7.5 MG/DL (8.5-10.1); CARBON DIOXIDE 16 MMOL/L (21-32); CHLORIDE 106 MMOL/L (98-107); CREATININE 1.1 MG/DL (0.55-1.30); GLOMERULAR FILTRATION RATE > 60 mL/min (>60); MAGNESIUM 1.5 MG/DL (1.8-2.4); PHOSPHORUS 2.4 MG/DL (2.5-4.9); POTASSIUM 3.3 MMOL/L (3.5-5.1); SODIUM 137 MMOL/L (136-145); TOTAL PROTEIN 5.6 G/DL (6.4-8.2); URIC ACID 3.9 MG/DL (2.6-7.2)
[2017-05-09 07:22] LABS: BASOPHILS % (AUTO) 0.8 % (0.0-2.0); LYMPHOCYTES % (AUTO) 31.1 % (20.0-45.0); MEAN CORPUSCULAR HEMOGLOBIN 31.9 PG (27.0-31.0); MEAN CORPUSCULAR HGB CONC 33.1 G/DL (32.0-36.0); MEAN CORPUSCULAR VOLUME 96 FL (80-99); MEAN PLATELET VOLUME 6.4 FL (6.5-10.1); MONOCYTES % (AUTO) 4.5 % (1.0-10.0); NEUTROPHILS % (AUTO) 62.7 % (45.0-75.0); PLATELET COUNT 275 K/UL (150-450); RED BLOOD COUNT 2.78 M/UL (4.20-5.40); RED CELL DISTRIBUTION WIDTH 15.1 % (11.6-14.8); WHITE BLOOD COUNT 5.8 K/UL (4.8-10.8)
--- NOTE | 2017-05-09 07:22 | General Progress Note ---
Assessment/Plan Problem List: (1) DKA (diabetic ketoacidoses) ICD Codes: E13.10 - Other specified diabetes mellitus with ketoacidosis without coma SNOMED: 20080982, 055290224 (2) Diabetes type 1, uncontrolled ICD Codes: E10.65 - Type 1 diabetes mellitus with hyperglycemia SNOMED: 859182938, 572178985 (3) HTN (hypertension) ICD Codes: I10 - HTN (hypertension) SNOMED: 20071750 Assessment/Plan AG re opened yesterday since she missed Levemir the day before she is feeing better received scheduled insulin and IVF continue current regimen of Levemir and Novolog follow am lab results - still pending Subjective Allergies: Coded Allergies: No Known Allergies (Unverified , 04/24/14) All Systems: reviewed and negative except above Subjective feeling better wants to go home having breakfast appetite is good Objective Last 24 Hour Vital Signs Date Time Temp Pulse Resp B/P (MAP) Pulse Ox O2 Delivery O2 Flow Rate FiO2 05/09/17 05:35 97.8 05/09/17 04:39 97.8 94 20 137/72 100 05/09/17 00:00 97.3 86 18 147/81 99 Room Air 05/09/17 00:00 99 Room Air 05/08/17 20:00 97.0 85 18 137/65 94 Room Air 05/08/17 20:00 94 Room Air 05/08/17 18:23 86 137/71 05/08/17 16:59 169/96 05/08/17 16:07 97.5 91 20 169/96 95 Room Air 05/08/17 12:59 98.3 97 18 150/90 99 05/08/17 08:12 98.4 83 18 140/83 100 Laboratory Tests 05/09/17 04:40: White Blood Count [Pending], Red Blood Count [Pending], Hemoglobin [Pending], Hematocrit [Pending], Mean Corpuscular Volume [Pending], Mean Corpuscular Hemoglobin [Pending], Mean Corpuscular Hemoglobin Concent [Pending], Red Cell Distribution Width [Pending], Platelet Count [Pending], Mean Platelet Volume [ Pending], Neutrophils (%) (Auto) [Pending], Lymphocytes (%) (Auto) [Pending], Monocytes (%) (Auto) [Pending], Eosinophils (%) (Auto) [Pending], Basophils (%) (Auto) [Pending], Sodium Level [Pending], Potassium Level [Pending], Chloride Level [Pending], Carbon Dioxide Level [Pending], Blood Urea Nitrogen [Pending], Creatinine [Pending], Estimat Glomerular Filtration Rate [Pending], Glucose Level [Pending], Uric Acid [Pending], Calcium Level [Pending], Phosphorus Level [Pending], Magnesium Level [Pending], Total Bilirubin [Pending], Aspartate Amino Transf (AST/SGOT) [Pending], Alanine Aminotransferase (ALT/SGPT) [Pending] , Alkaline Phosphatase [Pending], Total Protein [Pending], Albumin [Pending], Globulin [Pending] Height (Feet): 5 Height (Inches): 4.00 Weight (Pounds): 142 General Appearance: no apparent distress EENT: PERRL/EOMI Neck: normal alignment Cardiovascular: normal rate Respiratory/Chest: lungs clear Abdomen: normal bowel sounds Pelvis: normal external exam Edema: no edema noted Arm (L), no edema noted Arm (R), no edema noted Leg (L), no edema noted Leg (R), no edema noted Pedal (L), no edema noted Pedal (R), no edema noted Generalized Objective Current Medications Medications (Trade) Dose Ordered Sig/Lizbeth Route PRN Reason Start Time Stop Time Status Last Admin Dose Admin Clonidine HCl (Catapres) 0.1 mg Q4H PRN ORAL SBP>160 05/08/17 16:00 06/07/17 15:59 05/08/17 16:59 Dextrose (Dextrose 50%) STAT PRN IV Hypoglycemia 05/08/17 13:00 06/06/17 12:59 Heparin Sodium (Porcine) (Heparin 5000 units/ml) 5,000 units EVERY 12 HOURS SUBQ 05/07/17 21:00 06/05/17 20:59 Insulin Aspart (NovoLOG) BEFORE MEALS AND HS SUBQ 05/07/17 16:30 06/06/17 11:29 05/09/17 05:06 Insulin Aspart (NovoLOG) 4 units NOVOTIAC SUBQ 05/07/17 16:50 06/06/17 11:49 05/09/17 05:07 Insulin Detemir (Levemir) 18 units DAILY SUBQ 05/08/17 09:00 06/06/17 20:59 05/08/17 10:20 Metoclopramide HCl (Reglan) 5 mg TIAC ORAL 05/07/17 16:30 06/06/17 16:29 05/09/17 05:04 Morphine Sulfate (Morphine Sulfate) 2 mg Q4H PRN IV PAIN 4-10 05/07/17 13:00 05/13/17 12:59 05/09/17 05:05 Ondansetron HCl (Zofran) 4 mg Q6H PRN IVP Nausea & Vomiting 05/07/17 13:00 06/05/17 12:59 Pantoprazole (Protonix) 40 mg ACBREAKFAST ORAL 05/08/17 06:30 06/06/17 08:59 05/09/17 05:04 Phosphorus (Phospha 250 Neutral) 250 mg THREE TIMES A DAY ORAL 05/08/17 13:00 06/07/17 12:59 05/08/17 16:59 Sodium Chloride 1,000 ml @ 100 mls/hr Q10H IV 05/08/17 12:00 06/07/17 11:59 05/09/17 02:01 Tamsulosin HCl (Flomax) 0.4 mg BEDTIME ORAL 05/08/17 21:00 06/07/17 20:59 05/08/17 20:40 Temazepam (Restoril) 15 mg HSPRN PRN ORAL Insomnia 05/08/17 18:45 05/15/17 18:44 05/08/17 22:17 Item Value Date Time Bedside Blood Glucose 363 mg/dl H 05/09/17 0622 Bedside Blood Glucose 182 mg/dl H 05/08/17 2123 Bedside Blood Glucose 90 mg/dl 05/08/17 1630 Bedside Blood Glucose 348 mg/dl H 05/08/17 1144 Bedside Blood Glucose 347 mg/dl H 05/08/17 1020 IVY SULLIVAN May 09, 2017 07:22
[2017-05-09 08:31] VITALS: BP 152/87
[2017-05-09] MEDS: Heparin 5000 units/ml inj SUBQ SCH ×2 (09:00→20:44)
[2017-05-09] MEDS: Levemir Flexpen SUBQ SCH (09:25)
--- NOTE | 2017-05-09 09:27 | Nephrology Progress Note ---
Assessment/Plan Problem List: (1) Urinary retention (2) ARF (acute renal failure) (3) Dehydration (4) Diabetic ketoacidosis, type I Assessment BS better- Acidosis improved 1. Diabetic type 1 2. h/o Diabetic ketoacidosis (CC) 3. History of gastroesophageal reflux disease. 4. Depression. 5. Hypertension. 6. back pain 7. Anemia Plan Plan: Jay hydrate- mag and phos and K supplement as needed Keep BP in check- Monitor renal parameters and Chemistries- Urine studies Avoid Nephrotoxics Per orders Subjective ROS Limited/Unobtainable: No Constitutional: Reports: malaise Objective Objective Last 24 Hour Vital Signs Date Time Temp Pulse Resp B/P (MAP) Pulse Ox O2 Delivery O2 Flow Rate FiO2 05/09/17 08:31 97.4 90 20 152/87 99 05/09/17 05:35 97.8 05/09/17 04:39 97.8 94 20 137/72 100 05/09/17 00:00 97.3 86 18 147/81 99 Room Air 05/09/17 00:00 99 Room Air 05/08/17 20:00 97.0 85 18 137/65 94 Room Air 05/08/17 20:00 94 Room Air 05/08/17 18:23 86 137/71 05/08/17 16:59 169/96 05/08/17 16:07 97.5 91 20 169/96 95 Room Air 05/08/17 12:59 98.3 97 18 150/90 99 Intake and Output 05/09/17 05/10/17 19:00 07:00 Intake Total 360 ml Balance 360 ml Intake Oral 360 ml Laboratory Tests 05/09/17 04:40: White Blood Count 5.8, Red Blood Count 2.78L, Hemoglobin 8.9L, Hematocrit 26.9L , Mean Corpuscular Volume 96, Mean Corpuscular Hemoglobin 31.9H, Mean Corpuscular Hemoglobin Concent 33.1, Red Cell Distribution Width 15.1H, Platelet Count 275, Mean Platelet Volume 6.4L, Neutrophils (%) (Auto) 62.7, Lymphocytes (%) (Auto) 31.1, Monocytes (%) (Auto) 4.5, Eosinophils (%) (Auto) 1.0, Basophils (%) (Auto) 0.8, Sodium Level 137, Potassium Level 3.3L, Chloride Level 106, Carbon Dioxide Level 16L, Anion Gap 15, Blood Urea Nitrogen 11, Creatinine 1.1, Estimat Glomerular Filtration Rate > 60, Glucose Level 364#H, Uric Acid 3.9, Calcium Level 7.5L, Phosphorus Level 2.4L, Magnesium Level 1.5L, Total Bilirubin 0.4, Aspartate Amino Transf (AST/SGOT) 25, Alanine Aminotransferase (ALT/SGPT) 35, Alkaline Phosphatase 98, Total Protein 5.6L, Albumin 2.3L, Globulin 3.3, Albumin/Globulin Ratio 0.7L Height (Feet): 5 Height (Inches): 4.00 Weight (Pounds): 142 General Appearance: no apparent distress Objective no change in PE KYMBERLY SEAMAN May 09, 2017 09:27
[2017-05-09] MEDS ORDERED: Potassium Phosphate 30 MM in NS 275 ML IV ONE (10:00)
--- NOTE | 2017-05-09 11:21 | Pulmonology Progress Note ---
Assessment/Plan Problems: (1) Diabetic ketoacidosis, type I (2) ARF (acute renal failure) (3) HTN (hypertension) (4) Hypertension (5) Diabetic nephropathy (6) Major depression Assessment/Plan continue IV fluids BS better today Bicarb higher supplement K, phos, mag adjust insulin check electrolytes in am eating well, no nausea. Subjective ROS Limited/Unobtainable: No Interval Events: doing better Allergies: Coded Allergies: No Known Allergies (Unverified , 04/24/14) Objective Last 24 Hour Vital Signs Date Time Temp Pulse Resp B/P (MAP) Pulse Ox O2 Delivery O2 Flow Rate FiO2 05/09/17 08:31 97.4 90 20 152/87 99 05/09/17 05:35 97.8 05/09/17 04:39 97.8 94 20 137/72 100 05/09/17 00:00 97.3 86 18 147/81 99 Room Air 05/09/17 00:00 99 Room Air 05/08/17 20:00 97.0 85 18 137/65 94 Room Air 05/08/17 20:00 94 Room Air 05/08/17 18:23 86 137/71 05/08/17 16:59 169/96 05/08/17 16:07 97.5 91 20 169/96 95 Room Air 05/08/17 12:59 98.3 97 18 150/90 99 Intake and Output 05/09/17 05/10/17 19:00 07:00 Intake Total 360 ml Balance 360 ml Intake Oral 360 ml Objective General Appearance: WD/WN HEENT: normocephalic, anicteric Cardiovascular: normal peripheral pulses, normal rate Abdomen: normal bowel sounds, no organomegaly Genitourinary: normal external genitalia Extremities: no clubbing Skin: no lesions Lymphatic: no neck adenopathy Microbiology Date/Time Source Procedure Growth Status 05/06/17 18:00 Urine,Clean Catch Urine Culture - Final NO GROWTH AFTER 48 HOURS Complete Laboratory Tests 05/09/17 04:40: White Blood Count 5.8, Red Blood Count 2.78L, Hemoglobin 8.9L, Hematocrit 26.9L , Mean Corpuscular Volume 96, Mean Corpuscular Hemoglobin 31.9H, Mean Corpuscular Hemoglobin Concent 33.1, Red Cell Distribution Width 15.1H, Platelet Count 275, Mean Platelet Volume 6.4L, Neutrophils (%) (Auto) 62.7, Lymphocytes (%) (Auto) 31.1, Monocytes (%) (Auto) 4.5, Eosinophils (%) (Auto) 1.0, Basophils (%) (Auto) 0.8, Sodium Level 137, Potassium Level 3.3L, Chloride Level 106, Carbon Dioxide Level 16L, Anion Gap 15, Blood Urea Nitrogen 11, Creatinine 1.1, Estimat Glomerular Filtration Rate > 60, Glucose Level 364#H, Uric Acid 3.9, Calcium Level 7.5L, Phosphorus Level 2.4L, Magnesium Level 1.5L, Total Bilirubin 0.4, Aspartate Amino Transf (AST/SGOT) 25, Alanine Aminotransferase (ALT/SGPT) 35, Alkaline Phosphatase 98, Total Protein 5.6L, Albumin 2.3L, Globulin 3.3, Albumin/Globulin Ratio 0.7L Current Medications Medications (Trade) Dose Ordered Sig/Lizbeth Route PRN Reason Start Time Stop Time Status Last Admin Dose Admin Clonidine HCl (Catapres) 0.1 mg Q4H PRN ORAL SBP>160 05/08/17 16:00 06/07/17 15:59 05/08/17 16:59 Dextrose (Dextrose 50%) STAT PRN IV Hypoglycemia 05/08/17 13:00 06/06/17 12:59 Heparin Sodium (Porcine) (Heparin 5000 units/ml) 5,000 units EVERY 12 HOURS SUBQ 05/07/17 21:00 06/05/17 20:59 Insulin Aspart (NovoLOG) BEFORE MEALS AND HS SUBQ 05/07/17 16:30 06/06/17 11:29 05/09/17 05:06 Insulin Aspart (NovoLOG) 4 units NOVOTIAC SUBQ 05/07/17 16:50 06/06/17 11:49 05/09/17 05:07 Insulin Detemir (Levemir) 18 units DAILY SUBQ 05/08/17 09:00 06/06/17 20:59 05/09/17 09:25 Magnesium Sulfate 100 ml @ 100 mls/hr Q1H IVPB 05/09/17 09:30 05/09/17 12:29 05/09/17 09:29 Metoclopramide HCl (Reglan) 5 mg TIAC ORAL 05/07/17 16:30 06/06/17 16:29 05/09/17 05:04 Morphine Sulfate (Morphine Sulfate) 2 mg Q4H PRN IV PAIN 4-10 05/07/17 13:00 05/13/17 12:59 05/09/17 05:05 Ondansetron HCl (Zofran) 4 mg Q6H PRN IVP Nausea & Vomiting 05/07/17 13:00 06/05/17 12:59 Pantoprazole (Protonix) 40 mg ACBREAKFAST ORAL 05/08/17 06:30 06/06/17 08:59 05/09/17 05:04 Potassium Phosphate 30 mm/ Sodium Chloride 285 ml @ 47.5 mls/hr ONCE ONCE IV 05/09/17 10:00 05/09/17 15:59 Sodium Chloride 1,000 ml @ 100 mls/hr Q10H IV 05/08/17 12:00 06/07/17 11:59 05/09/17 02:01 Tamsulosin HCl (Flomax) 0.4 mg BEDTIME ORAL 05/08/17 21:00 06/07/17 20:59 05/08/17 20:40 Temazepam (Restoril) 15 mg HSPRN PRN ORAL Insomnia 05/08/17 18:45 05/15/17 18:44 05/08/17 22:17 VANESSA SAGASTUME May 09, 2017 11:21
[2017-05-09 11:41] VITALS: BP 182/102
--- NOTE | 2017-05-09 12:36 | Internal Med Progress Note ---
Subjective Date of Service: May 09, 2017 Physician Name AdrianaChristos Attending Physician Aries Hardin MD Current Medications Medications (Trade) Dose Ordered Sig/Lizbeth Route PRN Reason Start Time Stop Time Status Last Admin Dose Admin Clonidine HCl (Catapres) 0.1 mg Q4H PRN ORAL SBP>160 05/08/17 16:00 06/07/17 15:59 05/09/17 11:33 Dextrose (Dextrose 50%) STAT PRN IV Hypoglycemia 05/08/17 13:00 06/06/17 12:59 Heparin Sodium (Porcine) (Heparin 5000 units/ml) 5,000 units EVERY 12 HOURS SUBQ 05/07/17 21:00 06/05/17 20:59 Insulin Aspart (NovoLOG) BEFORE MEALS AND HS SUBQ 05/07/17 16:30 06/06/17 11:29 05/09/17 11:53 Insulin Aspart (NovoLOG) 4 units NOVOTIAC SUBQ 05/07/17 16:50 06/06/17 11:49 05/09/17 11:55 Insulin Detemir (Levemir) 18 units DAILY SUBQ 05/08/17 09:00 06/06/17 20:59 05/09/17 09:25 Metoclopramide HCl (Reglan) 5 mg TIAC ORAL 05/07/17 16:30 06/06/17 16:29 05/09/17 11:33 Morphine Sulfate (Morphine Sulfate) 2 mg Q4H PRN IV PAIN 4-10 05/07/17 13:00 05/13/17 12:59 05/09/17 11:51 Ondansetron HCl (Zofran) 4 mg Q6H PRN IVP Nausea & Vomiting 05/07/17 13:00 06/05/17 12:59 Pantoprazole (Protonix) 40 mg ACBREAKFAST ORAL 05/08/17 06:30 06/06/17 08:59 05/09/17 05:04 Potassium Phosphate 30 mm/ Sodium Chloride 285 ml @ 47.5 mls/hr ONCE ONCE IV 05/09/17 10:00 05/09/17 15:59 05/09/17 11:32 Sodium Chloride 1,000 ml @ 100 mls/hr Q10H IV 05/08/17 12:00 06/07/17 11:59 05/09/17 02:01 Tamsulosin HCl (Flomax) 0.4 mg BEDTIME ORAL 05/08/17 21:00 06/07/17 20:59 05/08/17 20:40 Temazepam (Restoril) 15 mg HSPRN PRN ORAL Insomnia 05/08/17 18:45 05/15/17 18:44 05/08/17 22:17 Allergies: Coded Allergies: No Known Allergies (Unverified , 04/24/14) ROS Limited/Unobtainable: No Constitutional: Reports: no symptoms HEENT: Reports: no symptoms Cardiovascular: Reports: no symptoms Respiratory: Reports: no symptoms Gastrointestinal/Abdominal: Reports: no symptoms Genitourinary: Reports: no symptoms Neurologic/Psychiatric: Reports: no symptoms Subjective 46 YO type I diabetic admitted with hyperglycemia. Uncontrolled - Blood glucose >300 this am. Cover for Int Med-Dr Hardin. Objective Last Vital Signs Date Time Temp Pulse Resp B/P (MAP) Pulse Ox O2 Delivery O2 Flow Rate FiO2 05/09/17 11:41 97.5 85 20 182/102 97 Room Air 05/06/17 03:45 4.0 Laboratory Tests Test 05/09/17 04:40 White Blood Count 5.8 K/UL (4.8-10.8) Red Blood Count 2.78 M/UL (4.20-5.40) L Hemoglobin 8.9 G/DL (12.0-16.0) L Hematocrit 26.9 % (37.0-47.0) L Mean Corpuscular Volume 96 FL (80-99) Mean Corpuscular Hemoglobin 31.9 PG (27.0-31.0) H Mean Corpuscular Hemoglobin Concent 33.1 G/DL (32.0-36.0) Red Cell Distribution Width 15.1 % (11.6-14.8) H Platelet Count 275 K/UL (150-450) Mean Platelet Volume 6.4 FL (6.5-10.1) L Neutrophils (%) (Auto) 62.7 % (45.0-75.0) Lymphocytes (%) (Auto) 31.1 % (20.0-45.0) Monocytes (%) (Auto) 4.5 % (1.0-10.0) Eosinophils (%) (Auto) 1.0 % (0.0-3.0) Basophils (%) (Auto) 0.8 % (0.0-2.0) Sodium Level 137 MMOL/L (136-145) Potassium Level 3.3 MMOL/L (3.5-5.1) L Chloride Level 106 MMOL/L (98-107) Carbon Dioxide Level 16 MMOL/L (21-32) L Anion Gap 15 mmol/L (5-15) Blood Urea Nitrogen 11 mg/dL (7-18) Creatinine 1.1 MG/DL (0.55-1.30) Estimat Glomerular Filtration Rate > 60 mL/min (>60) Glucose Level 364 MG/DL (74-106) #H Uric Acid 3.9 MG/DL (2.6-7.2) Calcium Level 7.5 MG/DL (8.5-10.1) L Phosphorus Level 2.4 MG/DL (2.5-4.9) L Magnesium Level 1.5 MG/DL (1.8-2.4) L Total Bilirubin 0.4 MG/DL (0.2-1.0) Aspartate Amino Transf (AST/SGOT) 25 U/L (15-37) Alanine Aminotransferase (ALT/SGPT) 35 U/L (12-78) Alkaline Phosphatase 98 U/L (46-116) Total Protein 5.6 G/DL (6.4-8.2) L Albumin 2.3 G/DL (3.4-5.0) L Globulin 3.3 g/dL Albumin/Globulin Ratio 0.7 (1.0-2.7) L Microbiology Date/Time Source Procedure Growth Status 05/06/17 18:00 Urine,Clean Catch Urine Culture - Final NO GROWTH AFTER 48 HOURS Complete Intake and Output 05/09/17 05/10/17 19:00 07:00 Intake Total 360 ml Balance 360 ml Intake Oral 360 ml Objective General Appearance: WD/WN, no apparent distress, alert EENT: PERRL/EOMI, normal ENT inspection Neck: non-tender, normal alignment, supple Cardiovascular: normal peripheral pulses, normal rate, regular rhythm, no gallop/murmur, no JVD Respiratory/Chest: chest wall non-tender, lungs clear, normal breath sounds, no respiratory distress, no accessory muscle use Abdomen: normal bowel sounds, non tender, soft, no organomegaly, no mass Extremities: normal range of motion Neurologic: speeder frame tender II-XII grossly normal, no motor/sensory deficits Skin: normal pigmentation, warm/dry Assessment/Plan Problem List: (1) Hyperglycemia Assessment & Plan: Uncontrolled; am glucose>300. Cont levemir and novolog sliding scale. See endocrinology note. (2) DKA (diabetic ketoacidosis) Assessment & Plan: See endocrinology consult-adjust levemir and novolog sliding scale. (3) Diabetic nephropathy Assessment & Plan: see nephrology note. (4) Renal insufficiency Assessment & Plan: See nephrology note. (5) SOB (shortness of breath) (6) Diabetes mellitus type 1, uncontrolled, insulin dependent (7) Hypertension (8) Renal failure (9) Diabetic gastroparesis (10) GERD (gastroesophageal reflux disease) (11) Major depression Status: progressing Assessment/Plan Discharge planning CHRISTOS JACOBSEN May 09, 2017 12:36
[2017-05-09 15:39] VITALS: BP 132/68
[2017-05-09] MEDS ORDERED: D5 1/2NS 1000ml IV ONE (15:41)
[2017-05-09] MEDS ORDERED: Tubing IV Secondary IV ONE ×2 (15:41→16:37)
[2017-05-09] MEDS ORDERED: NS 275ml ONE (15:41)
[2017-05-09 20:00] VITALS: BP 159/92
[2017-05-09] MEDS: Norco 5mg/325mg tab ORAL PRN (21:21)
[2017-05-09] MEDS: Tamsulosin 0.4mg cap ORAL SCH (21:21)
[2017-05-10] VITALS: BP 136/81
[2017-05-10] MEDS: Morphine Sulfate 2mg/ml Inj IV PRN ×2 (01:14→08:10)
[2017-05-10 03:22] VITALS: BP 161/92
--- NOTE | 2017-05-10 06:05 | General Progress Note ---
Assessment/Plan Problem List: (1) Diabetic ketoacidosis, type I ICD Codes: E10.10 - Type 1 diabetes mellituswith ketoacidosis without coma SNOMED: 135256895 (2) HTN (hypertension) ICD Codes: I10 - HTN (hypertension) SNOMED: 14095626 (3) Hypertension ICD Codes: I10 - Essential (primary) hypertension SNOMED: 85975377 (4) Anemia ICD Codes: D64.9 - Anemia, unspecified SNOMED: 596428472 (5) Esophagitis ICD Codes: K20.9 - Esophagitis, unspecified SNOMED: 77816820 (6) Gastritis ICD Codes: K29.70 - Gastritis, unspecified, without bleeding SNOMED: 4830671 Assessment/Plan ppi daily management of DKA per primary team fu labs dc planning pending monitor H&H Subjective ROS Limited/Unobtainable: Yes Allergies: Coded Allergies: No Known Allergies (Unverified , 04/24/14) Subjective no event over night Objective Last 24 Hour Vital Signs Date Time Temp Pulse Resp B/P (MAP) Pulse Ox O2 Delivery O2 Flow Rate FiO2 05/10/17 04:27 161/92 05/10/17 03:22 98.1 99 20 161/92 97 Room Air 05/10/17 01:51 98.2 05/10/17 00:00 98.2 99 21 136/81 99 Room Air 05/09/17 20:00 97.6 85 21 159/92 100 Room Air 05/09/17 15:39 98.0 83 20 132/68 97 05/09/17 12:21 97.5 05/09/17 11:41 97.5 85 20 182/102 97 Room Air 05/09/17 11:33 182/102 05/09/17 08:31 97.4 90 20 152/87 99 Height (Feet): 5 Height (Inches): 4.00 Weight (Pounds): 142 General Appearance: no apparent distress EENT: normal ENT inspection Neck: supple Cardiovascular: normal rate Respiratory/Chest: decreased breath sounds Abdomen: normal bowel sounds, non tender, soft Extremities: non-tender JALYN BANERJEE May 10, 2017 06:05
--- NOTE | 2017-05-10 06:26 | General Progress Note ---
Assessment/Plan Problem List: (1) DKA (diabetic ketoacidoses) ICD Codes: E13.10 - Other specified diabetes mellitus with ketoacidosis without coma SNOMED: 99041714, 329752901 (2) Diabetes type 1, uncontrolled ICD Codes: E10.65 - Type 1 diabetes mellitus with hyperglycemia SNOMED: 017002709, 013708135 (3) HTN (hypertension) ICD Codes: I10 - HTN (hypertension) SNOMED: 86780974 Assessment/Plan glycemic control improved continue current regimen of Levemir and Novolog follow am lab results Subjective Allergies: Coded Allergies: No Known Allergies (Unverified , 04/24/14) All Systems: reviewed and negative except above Subjective events noted Objective Last 24 Hour Vital Signs Date Time Temp Pulse Resp B/P (MAP) Pulse Ox O2 Delivery O2 Flow Rate FiO2 05/10/17 04:27 161/92 05/10/17 03:22 98.1 99 20 161/92 97 Room Air 05/10/17 01:51 98.2 05/10/17 00:00 98.2 99 21 136/81 99 Room Air 05/09/17 20:00 97.6 85 21 159/92 100 Room Air 05/09/17 15:39 98.0 83 20 132/68 97 05/09/17 12:21 97.5 05/09/17 11:41 97.5 85 20 182/102 97 Room Air 05/09/17 11:33 182/102 05/09/17 08:31 97.4 90 20 152/87 99 Height (Feet): 5 Height (Inches): 4.00 Weight (Pounds): 146 General Appearance: no apparent distress Neck: normal alignment Cardiovascular: normal rate Respiratory/Chest: lungs clear Abdomen: normal bowel sounds Pelvis: normal external exam Edema: no edema noted Arm (L), no edema noted Arm (R), no edema noted Leg (L), no edema noted Leg (R), no edema noted Pedal (L), no edema noted Pedal (R), no edema noted Generalized Objective Current Medications Medications (Trade) Dose Ordered Sig/Lizbeth Route PRN Reason Start Time Stop Time Status Last Admin Dose Admin Acetaminophen/ Hydrocodone Bitart ([place] 5/325) 1 tab Q4H PRN ORAL Moderate Pain (Pain Scale 4-6) 05/09/17 20:45 05/16/17 20:44 05/09/17 21:21 Clonidine HCl (Catapres) 0.1 mg Q4H PRN ORAL SBP>160 05/08/17 16:00 06/07/17 15:59 05/10/17 04:27 Dextrose (Dextrose 50%) STAT PRN IV Hypoglycemia 05/08/17 13:00 06/06/17 12:59 05/09/17 16:02 Heparin Sodium (Porcine) (Heparin 5000 units/ml) 5,000 units EVERY 12 HOURS SUBQ 05/07/17 21:00 06/05/17 20:59 Insulin Aspart (NovoLOG) BEFORE MEALS AND HS SUBQ 05/07/17 16:30 06/06/17 11:29 05/09/17 21:24 Insulin Aspart (NovoLOG) 4 units NOVOTIAC SUBQ 05/07/17 16:50 06/06/17 11:49 05/09/17 11:55 Insulin Detemir (Levemir) 18 units DAILY SUBQ 05/08/17 09:00 06/06/17 20:59 05/09/17 09:25 Metoclopramide HCl (Reglan) 5 mg TIAC ORAL 05/07/17 16:30 06/06/17 16:29 05/09/17 17:15 Morphine Sulfate (Morphine Sulfate) 2 mg Q4H PRN IV Severe Pain (Pain Scale 7-10) 05/09/17 21:00 05/13/17 12:59 05/10/17 01:14 Ondansetron HCl (Zofran) 4 mg Q6H PRN IVP Nausea & Vomiting 05/07/17 13:00 06/05/17 12:59 Pantoprazole (Protonix) 40 mg ACBREAKFAST ORAL 05/08/17 06:30 06/06/17 08:59 05/09/17 05:04 Sodium Chloride 1,000 ml @ 100 mls/hr Q10H IV 05/08/17 12:00 06/07/17 11:59 05/09/17 17:40 Tamsulosin HCl (Flomax) 0.4 mg BEDTIME ORAL 05/08/17 21:00 06/07/17 20:59 05/09/17 21:21 Temazepam (Restoril) 15 mg HSPRN PRN ORAL Insomnia 05/08/17 18:45 05/15/17 18:44 05/08/17 22:17 Item Value Date Time Bedside Blood Glucose 116 mg/dl 05/09/172123 Bedside Blood Glucose 73 mg/dl 05/09/17 1650 Bedside Blood Glucose 199 mg/dl H 05/09/17 1155 IVY SULLIVAN May 10, 2017 06:26
[2017-05-10] MEDS: NovoLOG Insulin Flexpen SUBQ SCH ×7 (06:47→20:47)
[2017-05-10 07:15] LABS: BASOPHILS % (AUTO) 0.7 % (0.0-2.0); EOSINOPHILS % (AUTO) 0.6 % (0.0-3.0); LYMPHOCYTES % (AUTO) 28.9 % (20.0-45.0); MEAN CORPUSCULAR HGB CONC 33.8 G/DL (32.0-36.0); MEAN CORPUSCULAR VOLUME 95 FL (80-99); MEAN PLATELET VOLUME 6.5 FL (6.5-10.1); MONOCYTES % (AUTO) 5.2 % (1.0-10.0); NEUTROPHILS % (AUTO) 64.6 % (45.0-75.0); PLATELET COUNT 269 K/UL (150-450); RED CELL DISTRIBUTION WIDTH 15.3 % (11.6-14.8); WHITE BLOOD COUNT 6.4 K/UL (4.8-10.8)
[2017-05-10 07:23] LABS: ALANINE AMINOTRANSFERASE 27 U/L (12-78); ALBUMIN/GLOBULIN RATIO 0.7 (1.0-2.7); ANION GAP 10 mmol/L (5-15); ASPARTATE AMINO TRANSFERASE 21 U/L (15-37); CALCIUM 8.1 MG/DL (8.5-10.1); CARBON DIOXIDE 24 MMOL/L (21-32); CHLORIDE 107 MMOL/L (98-107); CREATININE 1.2 MG/DL (0.55-1.30); GLOMERULAR FILTRATION RATE 58.9 mL/min (>60); POTASSIUM 3.9 MMOL/L (3.5-5.1); SODIUM 141 MMOL/L (136-145); TOTAL PROTEIN 5.9 G/DL (6.4-8.2)
[2017-05-10 07:35] LABS: PHOSPHORUS 2.8 MG/DL (2.5-4.9)
[2017-05-10] MEDS: Heparin 5000 units/ml inj SUBQ SCH ×3 (08:12→20:47)
[2017-05-10 08:19] VITALS: BP 190/104
[2017-05-10] MEDS: Levemir Flexpen SUBQ SCH (08:24)
--- NOTE | 2017-05-10 09:18 | Nephrology Progress Note ---
Assessment/Plan Problem List: (1) Urinary retention (2) ARF (acute renal failure) (3) Dehydration (4) Diabetic ketoacidosis, type I Assessment BS better- Acidosis improved 1. Diabetic type 1 2. h/o Diabetic ketoacidosis (CC) 3. History of gastroesophageal reflux disease. 4. Depression. 5. Hypertension. 6. back pain 7. Anemia Plan Plan: Jay discontinued- voiding well start Zestril for high BP DC IV fluid- mag and phos and K supplement as needed Keep BP in check- Monitor renal parameters and Chemistries- Urine studies IV Iron once Avoid Nephrotoxics Per orders Subjective ROS Limited/Unobtainable: No Constitutional: Reports: malaise Objective Objective Last 24 Hour Vital Signs Date Time Temp Pulse Resp B/P (MAP) Pulse Ox O2 Delivery O2 Flow Rate FiO2 05/10/17 08:19 97.9 92 18 190/104 98 Room Air 05/10/17 08:11 190/104 05/10/17 04:27 161/92 05/10/17 03:22 98.1 99 20 161/92 97 Room Air 05/10/17 01:51 98.2 05/10/17 00:00 98.2 99 21 136/81 99 Room Air 05/09/17 20:00 97.6 85 21 159/92 100 Room Air 05/09/17 15:39 98.0 83 20 132/68 97 05/09/17 12:21 97.5 05/09/17 11:41 97.5 85 20 182/102 97 Room Air 05/09/17 11:33 182/102 Intake and Output 05/10/17 05/11/17 19:00 07:00 Intake Total 240 ml Balance 240 ml Intake Oral 240 ml Laboratory Tests 05/10/17 06:20: White Blood Count 6.4, Red Blood Count 2.70L, Hemoglobin 8.6L, Hematocrit 25.5L , Mean Corpuscular Volume 95, Mean Corpuscular Hemoglobin 32.0H, Mean Corpuscular Hemoglobin Concent 33.8, Red Cell Distribution Width 15.3H, Platelet Count 269, Mean Platelet Volume 6.5, Neutrophils (%) (Auto) 64.6, Lymphocytes (%) (Auto) 28.9, Monocytes (%) (Auto) 5.2, Eosinophils (%) (Auto) 0.6, Basophils (%) (Auto) 0.7, Sodium Level 141, Potassium Level 3.9, Chloride Level 107, Carbon Dioxide Level 24, Anion Gap 10, Blood Urea Nitrogen 12, Creatinine 1.2, Estimat Glomerular Filtration Rate 58.9, Glucose Level 302H, Calcium Level 8.1L, Phosphorus Level 2.8, Magnesium Level 2.0, Total Bilirubin 0.2, Aspartate Amino Transf (AST/SGOT) 21, Alanine Aminotransferase (ALT/SGPT) 27, Alkaline Phosphatase 95, Total Protein 5.9L, Albumin 2.4L, Globulin 3.5, Albumin/Globulin Ratio 0.7L Height (Feet): 5 Height (Inches): 4.00 Weight (Pounds): 146 General Appearance: no apparent distress Objective no change in PE KYMBERLY SEAMAN May 10, 2017 09:18
[2017-05-10] MEDS ORDERED: Lisinopril 10mg tab ORAL ONE (10:00)
[2017-05-10] MEDS ORDERED: Iron Sucrose 200 MG in NS 110 ML IV ONE (11:00)
--- NOTE | 2017-05-10 11:35 | Pulmonology Progress Note ---
Assessment/Plan Problems: (1) Diabetic ketoacidosis, type I (2) ARF (acute renal failure) (3) HTN (hypertension) (4) Hypertension (5) Diabetic nephropathy (6) Major depression Assessment/Plan continue IV fluids BS better today Bicarb higher, normal now supplement K, phos, mag adjust insulin check electrolytes in am eating well, no nausea. dc planning if ok with Endo Subjective ROS Limited/Unobtainable: No Interval Events: eating well, feeling better Constitutional: Reports: no symptoms Allergies: Coded Allergies: No Known Allergies (Unverified , 04/24/14) Objective Last 24 Hour Vital Signs Date Time Temp Pulse Resp B/P (MAP) Pulse Ox O2 Delivery O2 Flow Rate FiO2 05/10/17 10:13 190/104 05/10/17 08:19 97.9 92 18 190/104 98 Room Air 05/10/17 08:11 190/104 05/10/17 04:27 161/92 05/10/17 03:22 98.1 99 20 161/92 97 Room Air 05/10/17 01:51 98.2 05/10/17 00:00 98.2 99 21 136/81 99 Room Air 05/09/17 20:00 97.6 85 21 159/92 100 Room Air 05/09/17 15:39 98.0 83 20 132/68 97 05/09/17 12:21 97.5 05/09/17 11:41 97.5 85 20 182/102 97 Room Air Intake and Output 05/10/17 05/11/17 19:00 07:00 Intake Total 240 ml Balance 240 ml Intake Oral 240 ml Objective General Appearance: WD/WN HEENT: normocephalic, anicteric Cardiovascular: normal peripheral pulses, normal rate Abdomen: normal bowel sounds, no organomegaly Genitourinary: normal external genitalia Extremities: no clubbing Skin: no lesions Lymphatic: no neck adenopathy Laboratory Tests 05/10/17 06:20: White Blood Count 6.4, Red Blood Count 2.70L, Hemoglobin 8.6L, Hematocrit 25.5L , Mean Corpuscular Volume 95, Mean Corpuscular Hemoglobin 32.0H, Mean Corpuscular Hemoglobin Concent 33.8, Red Cell Distribution Width 15.3H, Platelet Count 269, Mean Platelet Volume 6.5, Neutrophils (%) (Auto) 64.6, Lymphocytes (%) (Auto) 28.9, Monocytes (%) (Auto) 5.2, Eosinophils (%) (Auto) 0.6, Basophils (%) (Auto) 0.7, Sodium Level 141, Potassium Level 3.9, Chloride Level 107, Carbon Dioxide Level 24, Anion Gap 10, Blood Urea Nitrogen 12, Creatinine 1.2, Estimat Glomerular Filtration Rate 58.9, Glucose Level 302H, Calcium Level 8.1L, Phosphorus Level 2.8, Magnesium Level 2.0, Total Bilirubin 0.2, Aspartate Amino Transf (AST/SGOT) 21, Alanine Aminotransferase (ALT/SGPT) 27, Alkaline Phosphatase 95, Total Protein 5.9L, Albumin 2.4L, Globulin 3.5, Albumin/Globulin Ratio 0.7L Current Medications Medications (Trade) Dose Ordered Sig/Lizbeth Route PRN Reason Start Time Stop Time Status Last Admin Dose Admin Acetaminophen/ Hydrocodone Bitart ([place] 5/325) 1 tab Q4H PRN ORAL Moderate Pain (Pain Scale 4-6) 05/09/17 20:45 05/16/17 20:44 05/09/17 21:21 Clonidine HCl (Catapres) 0.1 mg Q4H PRN ORAL SBP>160 05/08/17 16:00 06/07/17 15:59 05/10/17 08:11 Dextrose (Dextrose 50%) STAT PRN IV Hypoglycemia 05/08/17 13:00 06/06/17 12:59 05/09/17 16:02 Heparin Sodium (Porcine) (Heparin 5000 units/ml) 5,000 units EVERY 12 HOURS SUBQ 05/07/17 21:00 06/05/17 20:59 Insulin Aspart (NovoLOG) BEFORE MEALS AND HS SUBQ 05/07/17 16:30 06/06/17 11:29 05/10/17 06:47 Insulin Aspart (NovoLOG) 4 units NOVOTIAC SUBQ 05/07/17 16:50 06/06/17 11:49 05/10/17 06:47 Insulin Detemir (Levemir) 18 units DAILY SUBQ 05/08/17 09:00 06/06/17 20:59 05/10/17 08:24 Lisinopril (Zestril) 10 mg DAILY ORAL 05/11/17 09:00 06/10/17 08:59 Metoclopramide HCl (Reglan) 5 mg TIAC ORAL 05/07/17 16:30 06/06/17 16:29 05/10/17 10:56 Morphine Sulfate (Morphine Sulfate) 2 mg Q4H PRN IV Severe Pain (Pain Scale 7-10) 05/09/17 21:00 05/13/17 12:59 05/10/17 08:10 Ondansetron HCl (Zofran) 4 mg Q6H PRN IVP Nausea & Vomiting 05/07/17 13:00 06/05/17 12:59 Pantoprazole (Protonix) 40 mg ACBREAKFAST ORAL 05/08/17 06:30 06/06/17 08:59 05/10/17 06:45 Tamsulosin HCl (Flomax) 0.4 mg BEDTIME ORAL 05/08/17 21:00 06/07/17 20:59 05/09/17 21:21 Temazepam (Restoril) 15 mg HSPRN PRN ORAL Insomnia 05/08/17 18:45 05/15/17 18:44 05/08/17 22:17 VANESSA SAGASTUME May 10, 2017 11:35
[2017-05-10 12:29] VITALS: BP 137/72
[2017-05-10] MEDS ORDERED: Glucagon 1mg Inj IM PRN (13:45)
--- NOTE | 2017-05-10 13:48 | Internal Med Progress Note ---
Subjective Date of Service: May 10, 2017 Physician Name Anastacio Jacobsen Attending Physician Aries Hardin MD Current Medications Medications (Trade) Dose Ordered Sig/Lizbeth Route PRN Reason Start Time Stop Time Status Last Admin Dose Admin Acetaminophen/ Hydrocodone Bitart ([place] 5/325) 1 tab Q4H PRN ORAL Moderate Pain (Pain Scale 4-6) 05/09/17 20:45 05/16/17 20:44 05/09/17 21:21 Clonidine HCl (Catapres) 0.1 mg Q4H PRN ORAL SBP>160 05/08/17 16:00 06/07/17 15:59 05/10/17 08:11 Dextrose (Dextrose 50%) STAT PRN IV Hypoglycemia 05/08/17 13:00 06/06/17 12:59 05/09/17 16:02 Glucagon (Glucagon) 1 mg PRN PRN IM Hypoglycemia 05/10/17 13:45 06/09/17 13:44 UNV Heparin Sodium (Porcine) (Heparin 5000 units/ml) 5,000 units EVERY 12 HOURS SUBQ 05/07/17 21:00 06/05/17 20:59 Insulin Aspart (NovoLOG) BEFORE MEALS AND HS SUBQ 05/07/17 16:30 06/06/17 11:29 05/10/17 06:47 Insulin Aspart (NovoLOG) 4 units NOVOTIAC SUBQ 05/07/17 16:50 06/06/17 11:49 05/10/17 06:47 Insulin Detemir (Levemir) 18 units DAILY SUBQ 05/08/17 09:00 06/06/17 20:59 05/10/17 08:24 Lisinopril (Zestril) 10 mg DAILY ORAL 05/11/17 09:00 06/10/17 08:59 Metoclopramide HCl (Reglan) 5 mg TIAC ORAL 05/07/17 16:30 06/06/17 16:29 05/10/17 10:56 Morphine Sulfate (Morphine Sulfate) 2 mg Q4H PRN IV Severe Pain (Pain Scale 7-10) 05/09/17 21:00 05/13/17 12:59 05/10/17 08:10 Ondansetron HCl (Zofran) 4 mg Q6H PRN IVP Nausea & Vomiting 05/07/17 13:00 06/05/17 12:59 Pantoprazole (Protonix) 40 mg ACBREAKFAST ORAL 05/08/17 06:30 06/06/17 08:59 05/10/17 06:45 Tamsulosin HCl (Flomax) 0.4 mg BEDTIME ORAL 05/08/17 21:00 06/07/17 20:59 05/09/17 21:21 Temazepam (Restoril) 15 mg HSPRN PRN ORAL Insomnia 05/08/17 18:45 05/15/17 18:44 05/08/17 22:17 Allergies: Coded Allergies: No Known Allergies (Unverified , 04/24/14) Subjective 46 YO type I diabetic admitted with hyperglycemia. Hypoglycemia-Blood glucose 44 this am. Cover for Int Med-Dr Hardin. Objective Last Vital Signs Date Time Temp Pulse Resp B/P (MAP) Pulse Ox O2 Delivery O2 Flow Rate FiO2 05/10/17 12:29 97.1 87 18 137/72 99 Room Air 05/06/17 03:45 4.0 Laboratory Tests Test 05/10/17 06:20 White Blood Count 6.4 K/UL (4.8-10.8) Red Blood Count 2.70 M/UL (4.20-5.40) L Hemoglobin 8.6 G/DL (12.0-16.0) L Hematocrit 25.5 % (37.0-47.0) L Mean Corpuscular Volume 95 FL (80-99) Mean Corpuscular Hemoglobin 32.0 PG (27.0-31.0) H Mean Corpuscular Hemoglobin Concent 33.8 G/DL (32.0-36.0) Red Cell Distribution Width 15.3 % (11.6-14.8) H Platelet Count 269 K/UL (150-450) Mean Platelet Volume 6.5 FL (6.5-10.1) Neutrophils (%) (Auto) 64.6 % (45.0-75.0) Lymphocytes (%) (Auto) 28.9 % (20.0-45.0) Monocytes (%) (Auto) 5.2 % (1.0-10.0) Eosinophils (%) (Auto) 0.6 % (0.0-3.0) Basophils (%) (Auto) 0.7 % (0.0-2.0) Sodium Level 141 MMOL/L (136-145) Potassium Level 3.9 MMOL/L (3.5-5.1) Chloride Level 107 MMOL/L (98-107) Carbon Dioxide Level 24 MMOL/L (21-32) Anion Gap 10 mmol/L (5-15) Blood Urea Nitrogen 12 mg/dL (7-18) Creatinine 1.2 MG/DL (0.55-1.30) Estimat Glomerular Filtration Rate 58.9 mL/min (>60) Glucose Level 302 MG/DL (74-106) H Calcium Level 8.1 MG/DL (8.5-10.1) L Phosphorus Level 2.8 MG/DL (2.5-4.9) Magnesium Level 2.0 MG/DL (1.5-2.4) Total Bilirubin 0.2 MG/DL (0.2-1.0) Aspartate Amino Transf (AST/SGOT) 21 U/L (15-37) Alanine Aminotransferase (ALT/SGPT) 27 U/L (12-78) Alkaline Phosphatase 95 U/L (46-116) Total Protein 5.9 G/DL (6.4-8.2) L Albumin 2.4 G/DL (3.4-5.0) L Globulin 3.5 g/dL Albumin/Globulin Ratio 0.7 (1.0-2.7) L Intake and Output 05/10/17 05/11/17 19:00 07:00 Intake Total 240 ml Balance 240 ml Intake Oral 240 ml Objective General Appearance: WD/WN, no apparent distress, alert EENT: PERRL/EOMI, normal ENT inspection Neck: non-tender, normal alignment, supple Cardiovascular: normal peripheral pulses, normal rate, regular rhythm, no gallop/murmur, no JVD Respiratory/Chest: chest wall non-tender, lungs clear, normal breath sounds, no respiratory distress, no accessory muscle use Abdomen: normal bowel sounds, non tender, soft, no organomegaly, no mass Extremities: normal range of motion 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 Cont levemir and novolog sliding scale. See endocrinology note. (2) DKA (diabetic ketoacidosis) Assessment & Plan: See endocrinology consult-adjust levemir and novolog sliding scale. (3) Diabetic nephropathy Assessment & Plan: see nephrology note. (4) Renal insufficiency Assessment & Plan: See nephrology note. (5) SOB (shortness of breath) (6) Diabetes mellitus type 1, uncontrolled, insulin dependent (7) Hypertension (8) Renal failure (9) Diabetic gastroparesis (10) GERD (gastroesophageal reflux disease) (11) Major depression Status: not improved Assessment/Plan Discharge planning ANASTACIO JACOBSEN May 10, 2017 13:48
[2017-05-10 16:00] VITALS: BP 153/89
[2017-05-10 20:00] VITALS: BP 148/75
[2017-05-10] MEDS: Norco 5mg/325mg tab ORAL PRN (20:50)
[2017-05-10] MEDS: Tamsulosin 0.4mg cap ORAL SCH (20:50)
[2017-05-11] VITALS (7 sets, daily range): BP systolic 137–193; BP diastolic 69–108
[2017-05-11] MEDS: Norco 5mg/325mg tab ORAL PRN ×3 (02:34→22:02)
--- NOTE | 2017-05-11 06:44 | General Progress Note ---
Assessment/Plan Problem List: (1) DKA (diabetic ketoacidoses) ICD Codes: E13.10 - Other specified diabetes mellitus with ketoacidosis without coma SNOMED: 58001637, 422503893 (2) Diabetes type 1, uncontrolled ICD Codes: E10.65 - Type 1 diabetes mellitus with hyperglycemia SNOMED: 650335609, 830184942 (3) HTN (hypertension) ICD Codes: I10 - HTN (hypertension) SNOMED: 13963106 Assessment/Plan hypoglycemia yesterday reduce Levemir to 15 units daily reduce Novolog to 3 units ac tid + SSI Subjective Allergies: Coded Allergies: No Known Allergies (Unverified , 04/24/14) All Systems: reviewed and negative except above Subjective events noted Objective Last 24 Hour Vital Signs Date Time Temp Pulse Resp B/P (MAP) Pulse Ox O2 Delivery O2 Flow Rate FiO2 05/11/17 04:21 187/95 05/11/17 04:00 97.7 99 20 187/95 97 Room Air 05/11/17 03:33 98.1 05/11/17 00:00 98.1 100 18 188/100 98 Room Air 05/10/17 23:48 188/98 05/10/17 20:00 98.1 85 20 148/75 97 Room Air 05/10/17 16:00 97.2 84 18 153/89 97 Room Air 05/10/17 12:29 97.1 87 18 137/72 99 Room Air 05/10/17 10:13 190/104 05/10/17 08:19 97.9 92 18 190/104 98 Room Air 05/10/17 08:11 190/104 Height (Feet): 5 Height (Inches): 4.00 Weight (Pounds): 146 General Appearance: no apparent distress EENT: normal ENT inspection Neck: normal alignment Cardiovascular: normal rate Respiratory/Chest: lungs clear Edema: no edema noted Arm (L), no edema noted Arm (R), no edema noted Leg (L), no edema noted Leg (R), no edema noted Pedal (L), no edema noted Pedal (R), no edema noted Generalized Objective Current Medications Medications (Trade) Dose Ordered Sig/Lizbeth Route PRN Reason Start Time Stop Time Status Last Admin Dose Admin Acetaminophen/ Hydrocodone Bitart ([place] 5/325) 1 tab Q4H PRN ORAL Moderate Pain (Pain Scale 4-6) 05/09/17 20:45 05/16/17 20:44 05/11/17 02:34 Clonidine HCl (Catapres) 0.1 mg Q4H PRN ORAL SBP>160 05/08/17 16:00 06/07/17 15:59 05/11/17 04:21 Dextrose (Dextrose 50%) STAT PRN IV Hypoglycemia 05/08/17 13:00 06/06/17 12:59 05/09/17 16:02 Glucagon (Glucagon) 1 mg PRN PRN IM Hypoglycemia 05/10/17 13:45 06/09/17 13:44 05/10/17 13:53 Heparin Sodium (Porcine) (Heparin 5000 units/ml) 5,000 units EVERY 12 HOURS SUBQ 05/07/17 21:00 06/05/17 20:59 Insulin Aspart (NovoLOG) BEFORE MEALS AND HS SUBQ 05/07/17 16:30 06/06/17 11:29 05/10/17 16:48 Insulin Aspart (NovoLOG) 4 units NOVOTIAC SUBQ 05/07/17 16:50 06/06/17 11:49 05/10/17 16:54 Insulin Detemir (Levemir) 18 units DAILY SUBQ 05/08/17 09:00 06/06/17 20:59 05/10/17 08:24 Lisinopril (Zestril) 10 mg DAILY ORAL 05/11/17 09:00 06/10/17 08:59 Metoclopramide HCl (Reglan) 5 mg TIAC ORAL 05/07/17 16:30 06/06/17 16:29 05/10/17 16:47 Morphine Sulfate (Morphine Sulfate) 2 mg Q4H PRN IV Severe Pain (Pain Scale 7-10) 05/09/17 21:00 05/13/17 12:59 05/10/17 08:10 Ondansetron HCl (Zofran) 4 mg Q6H PRN IVP Nausea & Vomiting 05/07/17 13:00 06/05/17 12:59 Pantoprazole (Protonix) 40 mg ACBREAKFAST ORAL 05/08/17 06:30 06/06/17 08:59 05/10/17 06:45 Tamsulosin HCl (Flomax) 0.4 mg BEDTIME ORAL 05/08/17 21:00 06/07/17 20:59 05/10/17 20:50 Temazepam (Restoril) 15 mg HSPRN PRN ORAL Insomnia 05/08/17 18:45 05/15/17 18:44 05/08/17 22:17 Item Value Date Time Bedside Blood Glucose 73 mg/dl 05/10/17 2047 Bedside Blood Glucose 136 mg/dl H 05/10/17 1707 Bedside Blood Glucose 44 mg/dl L 05/10/17 1150 Bedside Blood Glucose 162 mg/dl H 05/10/17 0824 IVY SULLIVAN May 11, 2017 06:44
[2017-05-11] MEDS: NovoLOG Insulin Flexpen SUBQ SCH ×7 (07:30→20:50)
--- NOTE | 2017-05-11 07:39 | General Progress Note ---
Assessment/Plan Problem List: (1) Diabetic ketoacidosis, type I ICD Codes: E10.10 - Type 1 diabetes mellituswith ketoacidosis without coma SNOMED: 687566175 (2) HTN (hypertension) ICD Codes: I10 - HTN (hypertension) SNOMED: 73115089 (3) Hypertension ICD Codes: I10 - Essential (primary) hypertension SNOMED: 17948519 (4) Anemia ICD Codes: D64.9 - Anemia, unspecified SNOMED: 983750934 (5) Esophagitis ICD Codes: K20.9 - Esophagitis, unspecified SNOMED: 90629185 (6) Gastritis ICD Codes: K29.70 - Gastritis, unspecified, without bleeding SNOMED: 4352074 Assessment/Plan ppi daily management of DKA per primary team fu labs dc planning pending monitor H&H Subjective ROS Limited/Unobtainable: Yes Allergies: Coded Allergies: No Known Allergies (Unverified , 04/24/14) Subjective no event over night Objective Last 24 Hour Vital Signs Date Time Temp Pulse Resp B/P (MAP) Pulse Ox O2 Delivery O2 Flow Rate FiO2 05/11/17 04:21 187/95 05/11/17 04:00 97.7 99 20 187/95 97 Room Air 05/11/17 03:33 98.1 05/11/17 00:00 98.1 100 18 188/100 98 Room Air 05/10/17 23:48 188/98 05/10/17 20:00 98.1 85 20 148/75 97 Room Air 05/10/17 16:00 97.2 84 18 153/89 97 Room Air 05/10/17 12:29 97.1 87 18 137/72 99 Room Air 05/10/17 10:13 190/104 05/10/17 08:19 97.9 92 18 190/104 98 Room Air 05/10/17 08:11 190/104 Laboratory Tests 05/11/17 06:44: White Blood Count [Pending], Red Blood Count [Pending], Hemoglobin [Pending], Hematocrit [Pending], Mean Corpuscular Volume [Pending], Mean Corpuscular Hemoglobin [Pending], Mean Corpuscular Hemoglobin Concent [Pending], Red Cell Distribution Width [Pending], Platelet Count [Pending], Mean Platelet Volume [ Pending], Neutrophils (%) (Auto) [Pending], Lymphocytes (%) (Auto) [Pending], Monocytes (%) (Auto) [Pending], Eosinophils (%) (Auto) [Pending], Basophils (%) (Auto) [Pending], Sodium Level [Pending], Potassium Level [Pending], Chloride Level [Pending], Carbon Dioxide Level [Pending], Blood Urea Nitrogen [Pending], Creatinine [Pending], Estimat Glomerular Filtration Rate [Pending], Glucose Level [Pending], Calcium Level [Pending], Phosphorus Level [Pending], Magnesium Level [Pending], Total Bilirubin [Pending], Aspartate Amino Transf (AST/SGOT) [ Pending], Alanine Aminotransferase (ALT/SGPT) [Pending], Alkaline Phosphatase [ Pending], Total Protein [Pending], Albumin [Pending], Globulin [Pending] Height (Feet): 5 Height (Inches): 4.00 Weight (Pounds): 138 General Appearance: alert EENT: normal ENT inspection Neck: supple Cardiovascular: normal rate Respiratory/Chest: decreased breath sounds Abdomen: normal bowel sounds, non tender, soft Extremities: non-tender JALYN BANERJEE May 11, 2017 07:39
[2017-05-11 07:43] LABS: BASOPHILS % (AUTO) 0.6 % (0.0-2.0); EOSINOPHILS % (AUTO) 0.4 % (0.0-3.0); LYMPHOCYTES % (AUTO) 27.5 % (20.0-45.0); MEAN CORPUSCULAR HEMOGLOBIN 31.6 PG (27.0-31.0); MEAN CORPUSCULAR VOLUME 96 FL (80-99); MEAN PLATELET VOLUME 6.7 FL (6.5-10.1); MONOCYTES % (AUTO) 5.2 % (1.0-10.0); NEUTROPHILS % (AUTO) 66.3 % (45.0-75.0); PLATELET COUNT 267 K/UL (150-450); RED CELL DISTRIBUTION WIDTH 15.9 % (11.6-14.8); WHITE BLOOD COUNT 5.8 K/UL (4.8-10.8)
[2017-05-11 08:23] LABS: ALANINE AMINOTRANSFERASE 30 U/L (12-78); ALBUMIN/GLOBULIN RATIO 0.7 (1.0-2.7); ANION GAP 8 mmol/L (5-15); ASPARTATE AMINO TRANSFERASE 26 U/L (15-37); CALCIUM 8.2 MG/DL (8.5-10.1); CARBON DIOXIDE 28 MMOL/L (21-32); CHLORIDE 101 MMOL/L (98-107); CREATININE 0.9 MG/DL (0.55-1.30); GLOMERULAR FILTRATION RATE > 60 mL/min (>60); MAGNESIUM 1.5 MG/DL (1.8-2.4); PHOSPHORUS 2.3 MG/DL (2.5-4.9); POTASSIUM 3.8 MMOL/L (3.5-5.1); SODIUM 137 MMOL/L (136-145); TOTAL PROTEIN 5.7 G/DL (6.4-8.2)
[2017-05-11] MEDS: Lisinopril 10mg tab ORAL SCH (09:00)
--- NOTE | 2017-05-11 09:18 | Nephrology Progress Note ---
Assessment/Plan Problem List: (1) Urinary retention (2) ARF (acute renal failure) (3) Dehydration (4) Diabetic ketoacidosis, type I Assessment BS better- Acidosis improved BP up 1. Diabetic type 1 2. h/o Diabetic ketoacidosis (CC) 3. History of gastroesophageal reflux disease. 4. Depression. 5. Hypertension. 6. back pain 7. Anemia Plan Plan: PO Phos and Mag Increase lisinopril add Lopressor Jay discontinued- voiding well DC IV fluid- mag and phos and K supplement as needed Keep BP in check- Monitor renal parameters and Chemistries- Urine studies IV Iron once Avoid Nephrotoxics Per orders Subjective ROS Limited/Unobtainable: No Objective Objective Last 24 Hour Vital Signs Date Time Temp Pulse Resp B/P (MAP) Pulse Ox O2 Delivery O2 Flow Rate FiO2 05/11/17 08:00 97.9 88 19 160/95 Room Air 05/11/17 04:21 187/95 05/11/17 04:00 97.7 99 20 187/95 97 Room Air 05/11/17 03:33 98.1 05/11/17 00:00 98.1 100 18 188/100 98 Room Air 05/10/17 23:48 188/98 05/10/17 20:00 98.1 85 20 148/75 97 Room Air 05/10/17 16:00 97.2 84 18 153/89 97 Room Air 05/10/17 12:29 97.1 87 18 137/72 99 Room Air 05/10/17 10:13 190/104 Laboratory Tests 05/11/17 06:44: White Blood Count 5.8, Red Blood Count 2.70L, Hemoglobin 8.5L, Hematocrit 25.9L , Mean Corpuscular Volume 96, Mean Corpuscular Hemoglobin 31.6H, Mean Corpuscular Hemoglobin Concent 33.0, Red Cell Distribution Width 15.9H, Platelet Count 267, Mean Platelet Volume 6.7, Neutrophils (%) (Auto) 66.3, Lymphocytes (%) (Auto) 27.5, Monocytes (%) (Auto) 5.2, Eosinophils (%) (Auto) 0.4, Basophils (%) (Auto) 0.6, Sodium Level 137, Potassium Level 3.8, Chloride Level 101, Carbon Dioxide Level 28, Anion Gap 8, Blood Urea Nitrogen 12, Creatinine 0.9, Estimat Glomerular Filtration Rate > 60, Glucose Level 390H, Calcium Level 8.2L, Phosphorus Level 2.3L, Magnesium Level 1.5L, Total Bilirubin 0.4, Aspartate Amino Transf (AST/SGOT) 26, Alanine Aminotransferase ( ALT/SGPT) 30, Alkaline Phosphatase 93, Total Protein 5.7L, Albumin 2.4L, Globulin 3.3, Albumin/Globulin Ratio 0.7L Height (Feet): 5 Height (Inches): 4.00 Weight (Pounds): 138 General Appearance: no apparent distress Objective no change in PE KYMBERLY SEAMAN May 11, 2017 09:18
[2017-05-11] MEDS: Heparin 5000 units/ml inj SUBQ SCH ×2 (09:32→20:50)
[2017-05-11] MEDS ORDERED: Metoprolol Tartrate 12.5mg TAB ORAL ONE (09:35)
[2017-05-11] MEDS: Levemir Flexpen SUBQ SCH (09:38)
[2017-05-11] MEDS: Lisinopril 20mg tab ORAL SCH (09:41)
[2017-05-11] MEDS ORDERED: Potassium Phosphate 30 MM in NS 275 ML IV ONE (09:45)
--- NOTE | 2017-05-11 13:50 | Internal Med Progress Note ---
Subjective Date of Service: May 11, 2017 Physician Name Anastacio Jacobsen Attending Physician Aries Hardin MD Current Medications Medications (Trade) Dose Ordered Sig/Lizbeth Route PRN Reason Start Time Stop Time Status Last Admin Dose Admin Acetaminophen/ Hydrocodone Bitart ([place] 5/325) 1 tab Q4H PRN ORAL Moderate Pain (Pain Scale 4-6) 05/09/17 20:45 05/16/17 20:44 05/11/17 09:43 Clonidine HCl (Catapres) 0.1 mg Q4H PRN ORAL SBP>160 05/08/17 16:00 06/07/17 15:59 05/11/17 04:21 Dextrose (Dextrose 50%) STAT PRN IV Hypoglycemia 05/08/17 13:00 06/06/17 12:59 05/09/17 16:02 Glucagon (Glucagon) 1 mg PRN PRN IM Hypoglycemia 05/10/17 13:45 06/09/17 13:44 05/10/17 13:53 Heparin Sodium (Porcine) (Heparin 5000 units/ml) 5,000 units EVERY 12 HOURS SUBQ 05/07/17 21:00 06/05/17 20:59 Insulin Aspart (NovoLOG) BEFORE MEALS AND HS SUBQ 05/07/17 16:30 06/06/17 11:29 05/11/17 11:26 Insulin Aspart (NovoLOG) 3 units NOVOTIAC SUBQ 05/11/17 07:30 06/10/17 07:29 Insulin Detemir (Levemir) 15 units DAILY SUBQ 05/11/17 09:00 06/10/17 08:59 05/11/17 09:38 Lisinopril (Prinivil) 20 mg DAILY ORAL 05/11/17 10:00 06/10/17 09:59 05/11/17 09:41 Magnesium Oxide (Mag-Ox 400mg) 400 mg THREE TIMES A DAY ORAL 05/11/17 13:00 06/10/17 12:59 Metoclopramide HCl (Reglan) 5 mg TIAC ORAL 05/07/17 16:30 06/06/17 16:29 05/11/17 11:24 Metoprolol Tartrate (Lopressor) 12.5 mg Q12HR ORAL 05/11/17 21:00 06/10/17 20:59 Morphine Sulfate (Morphine Sulfate) 2 mg Q4H PRN IV Severe Pain (Pain Scale 7-10) 05/09/17 21:00 05/13/17 12:59 05/10/17 08:10 Ondansetron HCl (Zofran) 4 mg Q6H PRN IVP Nausea & Vomiting 05/07/17 13:00 06/05/17 12:59 Pantoprazole (Protonix) 40 mg ACBREAKFAST ORAL 05/08/17 06:30 06/06/17 08:59 05/11/17 07:43 Phosphorus (Phospha 250 Neutral) 250 mg THREE TIMES A DAY ORAL 05/11/17 13:00 06/10/17 12:59 Tamsulosin HCl (Flomax) 0.4 mg BEDTIME ORAL 05/08/17 21:00 06/07/17 20:59 05/10/17 20:50 Temazepam (Restoril) 15 mg HSPRN PRN ORAL Insomnia 05/08/17 18:45 05/15/17 18:44 05/08/17 22:17 Allergies: Coded Allergies: No Known Allergies (Unverified , 04/24/14) ROS Limited/Unobtainable: No Constitutional: Reports: no symptoms HEENT: Reports: no symptoms Cardiovascular: Reports: no symptoms Respiratory: Reports: no symptoms Gastrointestinal/Abdominal: Reports: no symptoms Genitourinary: Reports: no symptoms Neurologic/Psychiatric: Reports: no symptoms Subjective 46 YO type I diabetic admitted with hyperglycemia. Labile Blood glucose - 44 yesterday; 365 this am. Cover for Int Med-Dr Hardin. Objective Last Vital Signs Date Time Temp Pulse Resp B/P (MAP) Pulse Ox O2 Delivery O2 Flow Rate FiO2 05/11/17 10:42 97.9 05/11/17 09:41 160/95 05/11/17 09:37 88 05/11/17 08:00 19 Room Air 05/11/17 04:00 97 05/06/17 03:45 4.0 Laboratory Tests Test 05/11/17 06:44 White Blood Count 5.8 K/UL (4.8-10.8) Red Blood Count 2.70 M/UL (4.20-5.40) L Hemoglobin 8.5 G/DL (12.0-16.0) L Hematocrit 25.9 % (37.0-47.0) L Mean Corpuscular Volume 96 FL (80-99) Mean Corpuscular Hemoglobin 31.6 PG (27.0-31.0) H Mean Corpuscular Hemoglobin Concent 33.0 G/DL (32.0-36.0) Red Cell Distribution Width 15.9 % (11.6-14.8) H Platelet Count 267 K/UL (150-450) Mean Platelet Volume 6.7 FL (6.5-10.1) Neutrophils (%) (Auto) 66.3 % (45.0-75.0) Lymphocytes (%) (Auto) 27.5 % (20.0-45.0) Monocytes (%) (Auto) 5.2 % (1.0-10.0) Eosinophils (%) (Auto) 0.4 % (0.0-3.0) Basophils (%) (Auto) 0.6 % (0.0-2.0) Sodium Level 137 MMOL/L (136-145) Potassium Level 3.8 MMOL/L (3.5-5.1) Chloride Level 101 MMOL/L (98-107) Carbon Dioxide Level 28 MMOL/L (21-32) Anion Gap 8 mmol/L (5-15) Blood Urea Nitrogen 12 mg/dL (7-18) Creatinine 0.9 MG/DL (0.55-1.30) Estimat Glomerular Filtration Rate > 60 mL/min (>60) Glucose Level 390 MG/DL (74-106) H Calcium Level 8.2 MG/DL (8.5-10.1) L Phosphorus Level 2.3 MG/DL (2.5-4.9) L Magnesium Level 1.5 MG/DL (1.8-2.4) L Total Bilirubin 0.4 MG/DL (0.2-1.0) Aspartate Amino Transf (AST/SGOT) 26 U/L (15-37) Alanine Aminotransferase (ALT/SGPT) 30 U/L (12-78) Alkaline Phosphatase 93 U/L (46-116) Total Protein 5.7 G/DL (6.4-8.2) L Albumin 2.4 G/DL (3.4-5.0) L Globulin 3.3 g/dL Albumin/Globulin Ratio 0.7 (1.0-2.7) L Objective General Appearance: WD/WN, no apparent distress, alert EENT: PERRL/EOMI, normal ENT inspection Neck: non-tender, normal alignment, supple Cardiovascular: normal peripheral pulses, normal rate, regular rhythm, no gallop/murmur, no JVD Respiratory/Chest: chest wall non-tender, lungs clear, normal breath sounds, no respiratory distress, no accessory muscle use Abdomen: normal bowel sounds, non tender, soft, no organomegaly, no mass Extremities: normal range of motion Neurologic: medical research associate II-XII grossly normal, no motor/sensory deficits Skin: normal pigmentation, warm/dry Assessment/Plan Problem List: (1) Hyperglycemia Assessment & Plan: Labile. Cont levemir and novolog sliding scale. See endocrinology note. (2) DKA (diabetic ketoacidosis) Assessment & Plan: See endocrinology consult-adjust levemir and novolog sliding scale. (3) Diabetic nephropathy Assessment & Plan: see nephrology note. (4) Renal insufficiency Assessment & Plan: See nephrology note. (5) SOB (shortness of breath) (6) Diabetes mellitus type 1, uncontrolled, insulin dependent (7) Hypertension (8) Renal failure (9) Diabetic gastroparesis (10) GERD (gastroesophageal reflux disease) (11) Major depression Status: not improved Assessment/Plan Discharge planning ANASTACIO JACOBSEN May 11, 2017 13:50
[2017-05-11] MEDS: Phospha 250 Neutral tab ORAL SCH ×2 (13:59→17:00)
[2017-05-11] MEDS: Magnesium Oxide 400mg tab ORAL SCH ×2 (14:00→17:00)
--- NOTE | 2017-05-11 16:19 | Pulmonology Progress Note ---
Assessment/Plan Problems: (1) Diabetic ketoacidosis, type I (2) ARF (acute renal failure) (3) HTN (hypertension) (4) Hypertension (5) Diabetic nephropathy (6) Major depression Assessment/Plan continue IV fluids BS better today Bicarb higher, normal now supplement K, phos, mag adjust insulin check electrolytes in am eating well, no nausea. dc planning if ok with Endo Subjective ROS Limited/Unobtainable: No Interval Events: doing better Allergies: Coded Allergies: No Known Allergies (Unverified , 04/24/14) Objective Last 24 Hour Vital Signs Date Time Temp Pulse Resp B/P (MAP) Pulse Ox O2 Delivery O2 Flow Rate FiO2 05/11/17 12:00 98.6 18 137/72 100 Room Air 05/11/17 10:42 97.9 05/11/17 09:41 160/95 05/11/17 09:37 88 160/95 05/11/17 08:00 97.9 88 19 160/95 Room Air 05/11/17 04:21 187/95 05/11/17 04:00 97.7 99 20 187/95 97 Room Air 05/11/17 00:00 98.1 100 18 188/100 98 Room Air 05/10/17 23:48 188/98 05/10/17 20:00 98.1 85 20 148/75 97 Room Air Intake and Output 05/11/17 05/12/17 19:00 07:00 Intake Total 590 ml Balance 590 ml Intake Oral 590 ml # Voids 1 Objective General Appearance: WD/WN HEENT: normocephalic, anicteric Cardiovascular: normal peripheral pulses, normal rate Abdomen: normal bowel sounds, no organomegaly Genitourinary: normal external genitalia Extremities: no clubbing Skin: no lesions Lymphatic: no neck adenopathy Laboratory Tests 05/11/17 06:44: White Blood Count 5.8, Red Blood Count 2.70L, Hemoglobin 8.5L, Hematocrit 25.9L , Mean Corpuscular Volume 96, Mean Corpuscular Hemoglobin 31.6H, Mean Corpuscular Hemoglobin Concent 33.0, Red Cell Distribution Width 15.9H, Platelet Count 267, Mean Platelet Volume 6.7, Neutrophils (%) (Auto) 66.3, Lymphocytes (%) (Auto) 27.5, Monocytes (%) (Auto) 5.2, Eosinophils (%) (Auto) 0.4, Basophils (%) (Auto) 0.6, Sodium Level 137, Potassium Level 3.8, Chloride Level 101, Carbon Dioxide Level 28, Anion Gap 8, Blood Urea Nitrogen 12, Creatinine 0.9, Estimat Glomerular Filtration Rate > 60, Glucose Level 390H, Calcium Level 8.2L, Phosphorus Level 2.3L, Magnesium Level 1.5L, Total Bilirubin 0.4, Aspartate Amino Transf (AST/SGOT) 26, Alanine Aminotransferase ( ALT/SGPT) 30, Alkaline Phosphatase 93, Total Protein 5.7L, Albumin 2.4L, Globulin 3.3, Albumin/Globulin Ratio 0.7L Current Medications Medications (Trade) Dose Ordered Sig/Lizbeth Route PRN Reason Start Time Stop Time Status Last Admin Dose Admin Acetaminophen/ Hydrocodone Bitart ([place] 5/325) 1 tab Q4H PRN ORAL Moderate Pain (Pain Scale 4-6) 05/09/17 20:45 05/16/17 20:44 05/11/17 09:43 Clonidine HCl (Catapres) 0.1 mg Q4H PRN ORAL SBP>160 05/08/17 16:00 06/07/17 15:59 05/11/17 04:21 Dextrose (Dextrose 50%) STAT PRN IV Hypoglycemia 05/08/17 13:00 06/06/17 12:59 05/09/17 16:02 Glucagon (Glucagon) 1 mg PRN PRN IM Hypoglycemia 05/10/17 13:45 06/09/17 13:44 05/10/17 13:53 Heparin Sodium (Porcine) (Heparin 5000 units/ml) 5,000 units EVERY 12 HOURS SUBQ 05/07/17 21:00 06/05/17 20:59 Insulin Aspart (NovoLOG) BEFORE MEALS AND HS SUBQ 05/07/17 16:30 06/06/17 11:29 05/11/17 11:26 Insulin Aspart (NovoLOG) 3 units NOVOTIAC SUBQ 05/11/17 07:30 06/10/17 07:29 Insulin Detemir (Levemir) 15 units DAILY SUBQ 05/11/17 09:00 06/10/17 08:59 05/11/17 09:38 Lisinopril (Prinivil) 20 mg DAILY ORAL 05/11/17 10:00 06/10/17 09:59 05/11/17 09:41 Magnesium Oxide (Mag-Ox 400mg) 400 mg THREE TIMES A DAY ORAL 05/11/17 13:00 06/10/17 12:59 05/11/17 14:00 Metoclopramide HCl (Reglan) 5 mg TIAC ORAL 05/07/17 16:30 06/06/17 16:29 05/11/17 11:24 Metoprolol Tartrate (Lopressor) 12.5 mg Q12HR ORAL 05/11/17 21:00 06/10/17 20:59 Morphine Sulfate (Morphine Sulfate) 2 mg Q4H PRN IV Severe Pain (Pain Scale 7-10) 05/09/17 21:00 05/13/17 12:59 05/10/17 08:10 Ondansetron HCl (Zofran) 4 mg Q6H PRN IVP Nausea & Vomiting 05/07/17 13:00 06/05/17 12:59 Pantoprazole (Protonix) 40 mg ACBREAKFAST ORAL 05/08/17 06:30 06/06/17 08:59 05/11/17 07:43 Phosphorus (Phospha 250 Neutral) 250 mg THREE TIMES A DAY ORAL 05/11/17 13:00 06/10/17 12:59 05/11/17 13:59 Tamsulosin HCl (Flomax) 0.4 mg BEDTIME ORAL 05/08/17 21:00 06/07/17 20:59 05/10/17 20:50 Temazepam (Restoril) 15 mg HSPRN PRN ORAL Insomnia 05/08/17 18:45 05/15/17 18:44 05/08/17 22:17 VANESSA SAGASTUME May 11, 2017 16:19
[2017-05-11] MEDS: Metoprolol Tartrate 12.5mg TAB ORAL SCH (20:52)
[2017-05-11] MEDS: Tamsulosin 0.4mg cap ORAL SCH (20:52)
[2017-05-12] VITALS: BP 190/111
[2017-05-12] MEDS: NovoLOG Insulin Flexpen SUBQ SCH ×8 (05:40→20:17)
--- NOTE | 2017-05-12 06:55 | General Progress Note ---
Assessment/Plan Problem List: (1) DKA (diabetic ketoacidoses) ICD Codes: E13.10 - Other specified diabetes mellitus with ketoacidosis without coma SNOMED: 08474996, 369727583 (2) Diabetes type 1, uncontrolled ICD Codes: E10.65 - Type 1 diabetes mellitus with hyperglycemia SNOMED: 313936994, 027801451 (3) HTN (hypertension) ICD Codes: I10 - HTN (hypertension) SNOMED: 71552072 Assessment/Plan VILLAFANA is most likely due to uncontrolled HTN continue Levemir 15 units daily continue Novolog 3 units ac tid + SSI Subjective Allergies: Coded Allergies: No Known Allergies (Unverified , 04/24/14) All Systems: reviewed and negative except above Subjective events noted complaining if VILLAFANA Objective Last 24 Hour Vital Signs Date Time Temp Pulse Resp B/P (MAP) Pulse Ox O2 Delivery O2 Flow Rate FiO2 05/12/17 04:55 195/110 05/12/17 00:13 190/111 05/12/17 00:00 98.3 88 20 190/111 96 Room Air 05/11/17 21:30 183/105 05/11/17 20:52 96 193/108 05/11/17 20:01 193/108 05/11/17 20:00 97.9 96 21 193/108 95 Room Air 05/11/17 16:00 98.0 82 18 142/69 98 Room Air 05/11/17 12:00 98.6 18 137/72 100 Room Air 05/11/17 10:42 97.9 05/11/17 09:41 160/95 05/11/17 09:37 88 160/95 05/11/17 08:00 97.9 88 19 160/95 Room Air Height (Feet): 5 Height (Inches): 4.00 Weight (Pounds): 133 General Appearance: no apparent distress Neck: normal alignment Cardiovascular: normal rate Respiratory/Chest: lungs clear Abdomen: normal bowel sounds Objective Current Medications Medications (Trade) Dose Ordered Sig/Lizbeth Route PRN Reason Start Time Stop Time Status Last Admin Dose Admin Acetaminophen/ Hydrocodone Bitart ([place] 5/325) 1 tab Q4H PRN ORAL Moderate Pain (Pain Scale 4-6) 05/09/17 20:45 05/16/17 20:44 05/11/17 22:02 Clonidine HCl (Catapres) 0.1 mg Q4H PRN ORAL SBP>160 05/08/17 16:00 06/07/17 15:59 05/12/17 04:55 Dextrose (Dextrose 50%) STAT PRN IV Hypoglycemia 05/08/17 13:00 06/06/17 12:59 05/09/17 16:02 Glucagon (Glucagon) 1 mg PRN PRN IM Hypoglycemia 05/10/17 13:45 06/09/17 13:44 05/10/17 13:53 Heparin Sodium (Porcine) (Heparin 5000 units/ml) 5,000 units EVERY 12 HOURS SUBQ 05/07/17 21:00 06/05/17 20:59 Insulin Aspart (NovoLOG) BEFORE MEALS AND HS SUBQ 05/07/17 16:30 06/06/17 11:29 05/12/17 05:40 Insulin Aspart (NovoLOG) 3 units NOVOTIAC SUBQ 05/11/17 07:30 06/10/17 07:29 Insulin Detemir (Levemir) 15 units DAILY SUBQ 05/11/17 09:00 06/10/17 08:59 05/11/17 09:38 Lisinopril (Prinivil) 20 mg DAILY ORAL 05/11/17 10:00 06/10/17 09:59 05/11/17 09:41 Magnesium Oxide (Mag-Ox 400mg) 400 mg THREE TIMES A DAY ORAL 05/11/17 13:00 06/10/17 12:59 05/11/17 17:00 Metoclopramide HCl (Reglan) 5 mg TIAC ORAL 05/07/17 16:30 06/06/17 16:29 05/12/17 05:37 Metoprolol Tartrate (Lopressor) 12.5 mg Q12HR ORAL 05/11/17 21:00 06/10/17 20:59 05/11/17 20:52 Morphine Sulfate (Morphine Sulfate) 2 mg Q4H PRN IV Severe Pain (Pain Scale 7-10) 05/09/17 21:00 05/13/17 12:59 05/10/17 08:10 Ondansetron HCl (Zofran) 4 mg Q6H PRN IVP Nausea & Vomiting 05/07/17 13:00 06/05/17 12:59 Pantoprazole (Protonix) 40 mg ACBREAKFAST ORAL 05/08/17 06:30 06/06/17 08:59 05/12/17 05:37 Phosphorus (Phospha 250 Neutral) 250 mg THREE TIMES A DAY ORAL 05/11/17 13:00 06/10/17 12:59 05/11/17 17:00 Tamsulosin HCl (Flomax) 0.4 mg BEDTIME ORAL 05/08/17 21:00 06/07/17 20:59 05/11/17 20:52 Temazepam (Restoril) 15 mg HSPRN PRN ORAL Insomnia 05/08/17 18:45 05/15/17 18:44 05/08/17 22:17 Item Value Date Time Bedside Blood Glucose 301 mg/dl H 05/12/17 0540 Bedside Blood Glucose 77 mg/dl 05/11/17 2100 Bedside Blood Glucose 73 mg/dl 05/11/17 1650 Bedside Blood Glucose 251 mg/dl H 05/11/17 1130 Bedside Blood Glucose 369 mg/dl H 05/11/17 0938 IVY SULLIVAN May 12, 2017 06:55
--- NOTE | 2017-05-12 07:16 | General Progress Note ---
Assessment/Plan Problem List: (1) Diabetic ketoacidosis, type I ICD Codes: E10.10 - Type 1 diabetes mellituswith ketoacidosis without coma SNOMED: 083589285 (2) HTN (hypertension) ICD Codes: I10 - HTN (hypertension) SNOMED: 69367763 (3) Hypertension ICD Codes: I10 - Essential (primary) hypertension SNOMED: 11750796 (4) Anemia ICD Codes: D64.9 - Anemia, unspecified SNOMED: 377478867 (5) Esophagitis ICD Codes: K20.9 - Esophagitis, unspecified SNOMED: 70168843 (6) Gastritis ICD Codes: K29.70 - Gastritis, unspecified, without bleeding SNOMED: 7836774 (7) Constipation ICD Codes: K59.00 - Constipation, unspecified SNOMED: 95356480 Assessment/Plan ppi daily management of DKA per primary team fu labs dc planning pending monitor H&H add colace, miralax and dulcolax Subjective ROS Limited/Unobtainable: Yes Allergies: Coded Allergies: No Known Allergies (Unverified , 04/24/14) Subjective no event over night c/o constipation Objective Last 24 Hour Vital Signs Date Time Temp Pulse Resp B/P (MAP) Pulse Ox O2 Delivery O2 Flow Rate FiO2 05/12/17 04:55 195/110 05/12/17 00:13 190/111 05/12/17 00:00 98.3 88 20 190/111 96 Room Air 05/11/17 21:30 183/105 05/11/17 20:52 96 193/108 05/11/17 20:01 193/108 05/11/17 20:00 97.9 96 21 193/108 95 Room Air 05/11/17 16:00 98.0 82 18 142/69 98 Room Air 05/11/17 12:00 98.6 18 137/72 100 Room Air 05/11/17 10:42 97.9 05/11/17 09:41 160/95 05/11/17 09:37 88 160/95 05/11/17 08:00 97.9 88 19 160/95 Room Air Height (Feet): 5 Height (Inches): 4.00 Weight (Pounds): 133 General Appearance: alert EENT: normal ENT inspection Neck: supple Cardiovascular: normal rate Respiratory/Chest: lungs clear Abdomen: normal bowel sounds, non tender, soft Extremities: non-tender JALYN BANERJEE May 12, 2017 07:16
[2017-05-12 07:46] LABS: BASOPHILS % (AUTO) 0.8 % (0.0-2.0); EOSINOPHILS % (AUTO) 1.1 % (0.0-3.0); LYMPHOCYTES % (AUTO) 39.6 % (20.0-45.0); MEAN CORPUSCULAR HEMOGLOBIN 29.6 PG (27.0-31.0); MEAN CORPUSCULAR HGB CONC 31.2 G/DL (32.0-36.0); MEAN CORPUSCULAR VOLUME 95 FL (80-99); MEAN PLATELET VOLUME 6.5 FL (6.5-10.1); MONOCYTES % (AUTO) 6.5 % (1.0-10.0); PLATELET COUNT 263 K/UL (150-450); RED BLOOD COUNT 2.89 M/UL (4.20-5.40); RED CELL DISTRIBUTION WIDTH 15.8 % (11.6-14.8); WHITE BLOOD COUNT 5.8 K/UL (4.8-10.8)
[2017-05-12 07:49] VITALS: BP 174/94
[2017-05-12] MEDS: Magnesium Oxide 400mg tab ORAL SCH ×3 (08:14→17:27)
[2017-05-12] MEDS: Heparin 5000 units/ml inj SUBQ SCH ×2 (08:14→20:19)
[2017-05-12] MEDS: HydrALAZINE 50mg tab ORAL SCH ×4 (08:15→23:51)
[2017-05-12] MEDS: Phospha 250 Neutral tab ORAL SCH ×3 (08:15→17:27)
[2017-05-12] MEDS: Lisinopril 20mg tab ORAL SCH (08:16)
[2017-05-12] MEDS: Metoprolol Tartrate 12.5mg TAB ORAL SCH ×2 (08:19→20:15)
[2017-05-12] MEDS: Levemir Flexpen SUBQ SCH (08:20)
[2017-05-12 08:30] LABS: ALANINE AMINOTRANSFERASE 26 U/L (12-78); ALBUMIN/GLOBULIN RATIO 0.7 (1.0-2.7); ANION GAP 10 mmol/L (5-15); ASPARTATE AMINO TRANSFERASE 21 U/L (15-37); CALCIUM 8.6 MG/DL (8.5-10.1); CARBON DIOXIDE 30 MMOL/L (21-32); CHLORIDE 102 MMOL/L (98-107); CREATININE 1.1 MG/DL (0.55-1.30); GLOMERULAR FILTRATION RATE > 60 mL/min (>60); SODIUM 142 MMOL/L (136-145); TOTAL PROTEIN 6.1 G/DL (6.4-8.2)
[2017-05-12 08:36] LABS: MAGNESIUM 1.4 MG/DL (1.8-2.4); PHOSPHORUS 2.8 MG/DL (2.5-4.9)
[2017-05-12] MEDS: Lactulose 20gm/30ml UDC ORAL SCH ×2 (09:00→17:30)
[2017-05-12 11:52] VITALS: BP 153/83
[2017-05-12] MEDS: Norco 5mg/325mg tab ORAL PRN ×2 (12:00→20:16)
[2017-05-12] MEDS: Docusate 100mg cap ORAL SCH ×2 (12:00→17:29)
--- NOTE | 2017-05-12 13:58 | Internal Med Progress Note ---
Subjective Date of Service: May 12, 2017 Physician Name Anastacio Jacobsen Attending Physician Aries Hardin MD Current Medications Medications (Trade) Dose Ordered Sig/Lizbeth Route PRN Reason Start Time Stop Time Status Last Admin Dose Admin Acetaminophen/ Hydrocodone Bitart ([place] 5/325) 1 tab Q4H PRN ORAL Moderate Pain (Pain Scale 4-6) 05/09/17 20:45 05/16/17 20:44 05/12/17 12:00 Clonidine HCl (Catapres) 0.1 mg Q4H PRN ORAL SBP>160 05/08/17 16:00 06/07/17 15:59 05/12/17 04:55 Dextrose (Dextrose 50%) STAT PRN IV Hypoglycemia 05/08/17 13:00 06/06/17 12:59 05/09/17 16:02 Docusate Sodium (Colace) 100 mg TWICE A DAY ORAL 05/12/17 09:00 06/11/17 08:59 05/12/17 12:00 Glucagon (Glucagon) 1 mg PRN PRN IM Hypoglycemia 05/10/17 13:45 06/09/17 13:44 05/10/17 13:53 Heparin Sodium (Porcine) (Heparin 5000 units/ml) 5,000 units EVERY 12 HOURS SUBQ 05/07/17 21:00 06/05/17 20:59 05/12/17 08:14 Hydralazine HCl (Apresoline) 50 mg Q6HR ORAL 05/12/17 08:00 06/11/17 07:59 05/12/17 12:00 Insulin Aspart (NovoLOG) BEFORE MEALS AND HS SUBQ 05/07/17 16:30 06/06/17 11:29 05/12/17 05:40 Insulin Aspart (NovoLOG) 3 units NOVOTIAC SUBQ 05/11/17 07:30 06/10/17 07:29 05/12/17 08:22 Insulin Detemir (Levemir) 15 units DAILY SUBQ 05/11/17 09:00 06/10/17 08:59 05/12/17 08:20 Lactulose (Cephulac) 30 gm BID ORAL 05/12/17 09:00 06/11/17 08:59 Lisinopril (Prinivil) 20 mg DAILY ORAL 05/11/17 10:00 06/10/17 09:59 05/12/17 08:16 Magnesium Oxide (Mag-Ox 400mg) 400 mg THREE TIMES A DAY ORAL 05/11/17 13:00 06/10/17 12:59 05/12/17 12:01 Metoclopramide HCl (Reglan) 5 mg TIAC ORAL 05/07/17 16:30 06/06/17 16:29 05/12/17 12:00 Metoprolol Tartrate (Lopressor) 12.5 mg Q12HR ORAL 05/11/17 21:00 06/10/17 20:59 05/12/17 08:19 Morphine Sulfate (Morphine Sulfate) 2 mg Q4H PRN IV Severe Pain (Pain Scale 7-10) 05/09/17 21:00 05/13/17 12:59 05/10/17 08:10 Ondansetron HCl (Zofran) 4 mg Q6H PRN IVP Nausea & Vomiting 05/07/17 13:00 06/05/17 12:59 Pantoprazole (Protonix) 40 mg ACBREAKFAST ORAL 05/08/17 06:30 06/06/17 08:59 05/12/17 05:37 Phosphorus (Phospha 250 Neutral) 250 mg THREE TIMES A DAY ORAL 05/11/17 13:00 06/10/17 12:59 05/12/17 12:01 Polyethylene Glycol (Miralax) 17 gm BEDTIME ORAL 05/12/17 21:00 06/11/17 20:59 Tamsulosin HCl (Flomax) 0.4 mg BEDTIME ORAL 05/08/17 21:00 06/07/17 20:59 05/11/17 20:52 Temazepam (Restoril) 15 mg HSPRN PRN ORAL Insomnia 05/08/17 18:45 05/15/17 18:44 05/08/17 22:17 Allergies: Coded Allergies: No Known Allergies (Unverified , 04/24/14) ROS Limited/Unobtainable: No Constitutional: Reports: no symptoms HEENT: Reports: no symptoms Cardiovascular: Reports: no symptoms Respiratory: Reports: no symptoms Gastrointestinal/Abdominal: Reports: no symptoms Genitourinary: Reports: no symptoms Subjective 46 YO type I diabetic admitted with hyperglycemia. Labile Blood glucose - 301 yesterday; 64 this am. Cover for Int Med-Dr Hardin. Objective Last Vital Signs Date Time Temp Pulse Resp B/P (MAP) Pulse Ox O2 Delivery O2 Flow Rate FiO2 05/12/17 12:59 98.3 05/12/17 12:00 153/83 05/12/17 11:52 85 19 95 Room Air 05/06/17 03:45 4.0 Laboratory Tests Test 05/12/17 07:03 White Blood Count 5.8 K/UL (4.8-10.8) Red Blood Count 2.89 M/UL (4.20-5.40) L Hemoglobin 8.6 G/DL (12.0-16.0) L Hematocrit 27.5 % (37.0-47.0) L Mean Corpuscular Volume 95 FL (80-99) Mean Corpuscular Hemoglobin 29.6 PG (27.0-31.0) Mean Corpuscular Hemoglobin Concent 31.2 G/DL (32.0-36.0) L Red Cell Distribution Width 15.8 % (11.6-14.8) H Platelet Count 263 K/UL (150-450) Mean Platelet Volume 6.5 FL (6.5-10.1) Neutrophils (%) (Auto) 52.0 % (45.0-75.0) Lymphocytes (%) (Auto) 39.6 % (20.0-45.0) Monocytes (%) (Auto) 6.5 % (1.0-10.0) Eosinophils (%) (Auto) 1.1 % (0.0-3.0) Basophils (%) (Auto) 0.8 % (0.0-2.0) Sodium Level 142 MMOL/L (136-145) Potassium Level 3.0 MMOL/L (3.5-5.1) L Chloride Level 102 MMOL/L (98-107) Carbon Dioxide Level 30 MMOL/L (21-32) Anion Gap 10 mmol/L (5-15) Blood Urea Nitrogen 11 mg/dL (7-18) Creatinine 1.1 MG/DL (0.55-1.30) Estimat Glomerular Filtration Rate > 60 mL/min (>60) Glucose Level 182 MG/DL (74-106) #H Calcium Level 8.6 MG/DL (8.5-10.1) Phosphorus Level 2.8 MG/DL (2.5-4.9) Magnesium Level 1.4 MG/DL (1.8-2.4) L Total Bilirubin 0.2 MG/DL (0.2-1.0) Aspartate Amino Transf (AST/SGOT) 21 U/L (15-37) Alanine Aminotransferase (ALT/SGPT) 26 U/L (12-78) Alkaline Phosphatase 97 U/L (46-116) Total Protein 6.1 G/DL (6.4-8.2) L Albumin 2.6 G/DL (3.4-5.0) L Globulin 3.5 g/dL Albumin/Globulin Ratio 0.7 (1.0-2.7) L Objective General Appearance: WD/WN, no apparent distress, alert EENT: PERRL/EOMI, normal ENT inspection Neck: non-tender, normal alignment, supple Cardiovascular: normal peripheral pulses, normal rate, regular rhythm, no gallop/murmur, no JVD Respiratory/Chest: chest wall non-tender, lungs clear, normal breath sounds, no respiratory distress, no accessory muscle use Abdomen: normal bowel sounds, non tender, soft, no organomegaly, no mass Extremities: normal range of motion Neurologic: sight effects specialist II-XII grossly normal, no motor/sensory deficits Skin: normal pigmentation, warm/dry Assessment/Plan Problem List: (1) Hyperglycemia Assessment & Plan: Labile. Cont levemir and novolog sliding scale. See endocrinology note. (2) DKA (diabetic ketoacidosis) Assessment & Plan: See endocrinology consult-adjust levemir and novolog sliding scale. (3) Diabetic nephropathy Assessment & Plan: see nephrology note. (4) Renal insufficiency Assessment & Plan: See nephrology note. (5) SOB (shortness of breath) (6) Diabetes mellitus type 1, uncontrolled, insulin dependent (7) Hypertension (8) Renal failure (9) Diabetic gastroparesis (10) GERD (gastroesophageal reflux disease) (11) Major depression Status: not improved Assessment/Plan Discharge planning ANASTACIO JACOBSEN May 12, 2017 13:58
--- NOTE | 2017-05-12 14:14 | Pulmonology Progress Note ---
Assessment/Plan Problems: (1) Diabetic ketoacidosis, type I (2) ARF (acute renal failure) (3) HTN (hypertension) (4) Hypertension (5) Diabetic nephropathy (6) Major depression Assessment/Plan improving BS better today Bicarb higher, normal now supplement K, phos, mag adjust insulin check electrolytes in am eating well, no nausea. dc planning if ok with Endo Subjective ROS Limited/Unobtainable: No Allergies: Coded Allergies: No Known Allergies (Unverified , 04/24/14) Objective Last 24 Hour Vital Signs Date Time Temp Pulse Resp B/P (MAP) Pulse Ox O2 Delivery O2 Flow Rate FiO2 05/12/17 12:59 98.3 05/12/17 12:00 153/83 05/12/17 11:52 98.3 85 19 153/83 95 Room Air 05/12/17 08:19 79 174/94 05/12/17 08:16 174/94 05/12/17 08:15 174/94 05/12/17 07:49 98.2 79 19 174/94 96 Room Air 05/12/17 04:55 195/110 05/12/17 00:13 190/111 05/12/17 00:00 98.3 88 20 190/111 96 Room Air 05/11/17 21:30 183/105 05/11/17 20:52 96 193/108 05/11/17 20:01 193/108 05/11/17 20:00 97.9 96 21 193/108 95 Room Air 05/11/17 16:00 98.0 82 18 142/69 98 Room Air Objective General Appearance: WD/WN HEENT: normocephalic, anicteric Cardiovascular: normal peripheral pulses, normal rate Abdomen: normal bowel sounds, no organomegaly Genitourinary: normal external genitalia Extremities: no clubbing Skin: no lesions Lymphatic: no neck adenopathy Laboratory Tests 05/12/17 07:03: White Blood Count 5.8, Red Blood Count 2.89L, Hemoglobin 8.6L, Hematocrit 27.5L , Mean Corpuscular Volume 95, Mean Corpuscular Hemoglobin 29.6, Mean Corpuscular Hemoglobin Concent 31.2L, Red Cell Distribution Width 15.8H, Platelet Count 263, Mean Platelet Volume 6.5, Neutrophils (%) (Auto) 52.0, Lymphocytes (%) (Auto) 39.6, Monocytes (%) (Auto) 6.5, Eosinophils (%) (Auto) 1.1, Basophils (%) (Auto) 0.8, Sodium Level 142, Potassium Level 3.0L, Chloride Level 102, Carbon Dioxide Level 30, Anion Gap 10, Blood Urea Nitrogen 11, Creatinine 1.1, Estimat Glomerular Filtration Rate > 60, Glucose Level 182#H, Calcium Level 8.6, Phosphorus Level 2.8, Magnesium Level 1.4L, Total Bilirubin 0.2, Aspartate Amino Transf (AST/SGOT) 21, Alanine Aminotransferase (ALT/SGPT) 26, Alkaline Phosphatase 97, Total Protein 6.1L, Albumin 2.6L, Globulin 3.5, Albumin/Globulin Ratio 0.7L Current Medications Medications (Trade) Dose Ordered Sig/Lizbeth Route PRN Reason Start Time Stop Time Status Last Admin Dose Admin Acetaminophen/ Hydrocodone Bitart ([place] 5/325) 1 tab Q4H PRN ORAL Moderate Pain (Pain Scale 4-6) 05/09/17 20:45 05/16/17 20:44 05/12/17 12:00 Clonidine HCl (Catapres) 0.1 mg Q4H PRN ORAL SBP>160 05/08/17 16:00 06/07/17 15:59 05/12/17 04:55 Dextrose (Dextrose 50%) STAT PRN IV Hypoglycemia 05/08/17 13:00 06/06/17 12:59 05/09/17 16:02 Docusate Sodium (Colace) 100 mg TWICE A DAY ORAL 05/12/17 09:00 06/11/17 08:59 05/12/17 12:00 Glucagon (Glucagon) 1 mg PRN PRN IM Hypoglycemia 05/10/17 13:45 06/09/17 13:44 05/10/17 13:53 Heparin Sodium (Porcine) (Heparin 5000 units/ml) 5,000 units EVERY 12 HOURS SUBQ 05/07/17 21:00 06/05/17 20:59 05/12/17 08:14 Hydralazine HCl (Apresoline) 50 mg Q6HR ORAL 05/12/17 08:00 06/11/17 07:59 05/12/17 12:00 Insulin Aspart (NovoLOG) BEFORE MEALS AND HS SUBQ 05/07/17 16:30 06/06/17 11:29 05/12/17 05:40 Insulin Aspart (NovoLOG) 3 units NOVOTIAC SUBQ 05/11/17 07:30 06/10/17 07:29 05/12/17 08:22 Insulin Detemir (Levemir) 15 units DAILY SUBQ 05/11/17 09:00 06/10/17 08:59 05/12/17 08:20 Lactulose (Cephulac) 30 gm BID ORAL 05/12/17 09:00 06/11/17 08:59 Lisinopril (Prinivil) 20 mg DAILY ORAL 05/11/17 10:00 06/10/17 09:59 05/12/17 08:16 Magnesium Oxide (Mag-Ox 400mg) 400 mg THREE TIMES A DAY ORAL 05/11/17 13:00 06/10/17 12:59 05/12/17 12:01 Metoclopramide HCl (Reglan) 5 mg TIAC ORAL 05/07/17 16:30 06/06/17 16:29 05/12/17 12:00 Metoprolol Tartrate (Lopressor) 12.5 mg Q12HR ORAL 05/11/17 21:00 06/10/17 20:59 05/12/17 08:19 Morphine Sulfate (Morphine Sulfate) 2 mg Q4H PRN IV Severe Pain (Pain Scale 7-10) 05/09/17 21:00 05/13/17 12:59 05/10/17 08:10 Ondansetron HCl (Zofran) 4 mg Q6H PRN IVP Nausea & Vomiting 05/07/17 13:00 06/05/17 12:59 Pantoprazole (Protonix) 40 mg ACBREAKFAST ORAL 05/08/17 06:30 06/06/17 08:59 05/12/17 05:37 Phosphorus (Phospha 250 Neutral) 250 mg THREE TIMES A DAY ORAL 05/11/17 13:00 06/10/17 12:59 05/12/17 12:01 Polyethylene Glycol (Miralax) 17 gm BEDTIME ORAL 05/12/17 21:00 06/11/17 20:59 Tamsulosin HCl (Flomax) 0.4 mg BEDTIME ORAL 05/08/17 21:00 06/07/17 20:59 05/11/17 20:52 Temazepam (Restoril) 15 mg HSPRN PRN ORAL Insomnia 05/08/17 18:45 05/15/17 18:44 05/08/17 22:17 VANESSA SAGASTUME May 12, 2017 14:14
[2017-05-12 16:17] VITALS: BP 148/74
[2017-05-12] MEDS: Losartan 50mg tab ORAL SCH (16:35)
[2017-05-12 20:13] VITALS: BP 170/90
[2017-05-12] MEDS: Tamsulosin 0.4mg cap ORAL SCH (20:15)
[2017-05-12] MEDS ORDERED: Miralax 17gm pkt ORAL SCH (21:00)
[2017-05-12 21:30] VITALS: BP 168/94
[2017-05-13 00:06] VITALS: BP 160/92
[2017-05-13 04:00] VITALS: BP 181/96
[2017-05-13] MEDS: Norco 5mg/325mg tab ORAL PRN ×2 (04:29→12:12)
[2017-05-13] MEDS: HydrALAZINE 50mg tab ORAL SCH ×2 (06:24→12:20)
[2017-05-13] MEDS: NovoLOG Insulin Flexpen SUBQ SCH ×4 (06:26→11:57)
--- NOTE | 2017-05-13 07:04 | General Progress Note ---
Assessment/Plan Problem List: (1) DKA (diabetic ketoacidoses) ICD Codes: E13.10 - Other specified diabetes mellitus with ketoacidosis without coma SNOMED: 71860057, 839419612 (2) Diabetes type 1, uncontrolled ICD Codes: E10.65 - Type 1 diabetes mellitus with hyperglycemia SNOMED: 503175631, 834777844 (3) HTN (hypertension) ICD Codes: I10 - HTN (hypertension) SNOMED: 97032673 Assessment/Plan glucose elevated today after she had crackers and grapes continue Levemir 15 units daily continue Novolog 3 units ac tid + SSI Subjective Allergies: Coded Allergies: No Known Allergies (Unverified , 04/24/14) All Systems: reviewed and negative except above Subjective events noted glucose elevated today after she had crackers and grapes Objective Last 24 Hour Vital Signs Date Time Temp Pulse Resp B/P (MAP) Pulse Ox O2 Delivery O2 Flow Rate FiO2 05/13/17 06:24 131/63 05/13/17 04:28 181/96 05/13/17 04:00 98.1 94 20 181/96 99 Room Air 05/13/17 00:06 98.2 84 19 160/92 97 Room Air 05/12/17 23:51 160/92 05/12/17 21:30 168/94 05/12/17 20:15 86 170/90 05/12/17 20:15 170/90 05/12/17 20:13 98.4 86 20 170/90 95 Room Air 05/12/17 17:27 144/76 05/12/17 16:35 148/74 05/12/17 16:17 84 148/74 05/12/17 12:59 98.3 05/12/17 12:00 153/83 05/12/17 11:52 98.3 85 19 153/83 95 Room Air 05/12/17 08:19 79 174/94 05/12/17 08:16 174/94 05/12/17 08:15 174/94 05/12/17 07:49 98.2 79 19 174/94 96 Room Air Laboratory Tests 05/13/17 04:50: White Blood Count [Pending], Red Blood Count [Pending], Hemoglobin [Pending], Hematocrit [Pending], Mean Corpuscular Volume [Pending], Mean Corpuscular Hemoglobin [Pending], Mean Corpuscular Hemoglobin Concent [Pending], Red Cell Distribution Width [Pending], Platelet Count [Pending], Mean Platelet Volume [ Pending], Neutrophils (%) (Auto) [Pending], Lymphocytes (%) (Auto) [Pending], Monocytes (%) (Auto) [Pending], Eosinophils (%) (Auto) [Pending], Basophils (%) (Auto) [Pending], Sodium Level [Pending], Potassium Level [Pending], Chloride Level [Pending], Carbon Dioxide Level [Pending], Blood Urea Nitrogen [Pending], Creatinine [Pending], Estimat Glomerular Filtration Rate [Pending], Glucose Level [Pending], Calcium Level [Pending] Height (Feet): 5 Height (Inches): 4.00 Weight (Pounds): 130 General Appearance: no apparent distress Neck: normal alignment Cardiovascular: normal rate Respiratory/Chest: lungs clear Abdomen: non tender Objective Current Medications Medications (Trade) Dose Ordered Sig/Lizbeth Route PRN Reason Start Time Stop Time Status Last Admin Dose Admin Acetaminophen/ Hydrocodone Bitart ([place] 5/325) 1 tab Q4H PRN ORAL Moderate Pain (Pain Scale 4-6) 05/09/17 20:45 05/16/17 20:44 05/13/17 04:29 Clonidine HCl (Catapres) 0.1 mg Q4H PRN ORAL SBP>160 05/08/17 16:00 06/07/17 15:59 05/13/17 04:28 Dextrose (Dextrose 50%) STAT PRN IV Hypoglycemia 05/08/17 13:00 06/06/17 12:59 05/09/17 16:02 Docusate Sodium (Colace) 100 mg TWICE A DAY ORAL 05/12/17 09:00 06/11/17 08:59 05/12/17 12:00 Glucagon (Glucagon) 1 mg PRN PRN IM Hypoglycemia 05/10/17 13:45 06/09/17 13:44 05/10/17 13:53 Heparin Sodium (Porcine) (Heparin 5000 units/ml) 5,000 units EVERY 12 HOURS SUBQ 05/07/17 21:00 06/05/17 20:59 05/12/17 08:14 Hydralazine HCl (Apresoline) 50 mg Q6HR ORAL 05/12/17 08:00 06/11/17 07:59 05/13/17 06:24 Insulin Aspart (NovoLOG) BEFORE MEALS AND HS SUBQ 05/07/17 16:30 06/06/17 11:29 05/13/17 06:26 Insulin Aspart (NovoLOG) 3 units NOVOTIAC SUBQ 05/11/17 07:30 06/10/17 07:29 05/13/17 06:27 Insulin Detemir (Levemir) 15 units DAILY SUBQ 05/11/17 09:00 06/10/17 08:59 05/12/17 08:20 Lactulose (Cephulac) 30 gm BID ORAL 05/12/17 09:00 06/11/17 08:59 05/12/17 17:30 Lisinopril (Prinivil) 20 mg DAILY ORAL 05/11/17 10:00 06/10/17 09:59 05/12/17 08:16 Losartan Potassium (Cozaar) 50 mg DAILY ORAL 05/12/17 15:15 06/11/17 15:14 05/12/17 16:35 Magnesium Oxide (Mag-Ox 400mg) 400 mg THREE TIMES A DAY ORAL 05/11/17 13:00 06/10/17 12:59 05/12/17 17:27 Metoclopramide HCl (Reglan) 5 mg TIAC ORAL 05/07/17 16:30 06/06/17 16:29 05/13/17 06:23 Metoprolol Tartrate (Lopressor) 12.5 mg Q12HR ORAL 05/11/17 21:00 06/10/17 20:59 05/12/17 20:15 Morphine Sulfate (Morphine Sulfate) 2 mg Q4H PRN IV Severe Pain (Pain Scale 7-10) 05/09/17 21:00 05/13/17 12:59 05/10/17 08:10 Ondansetron HCl (Zofran) 4 mg Q6H PRN IVP Nausea & Vomiting 05/07/17 13:00 06/05/17 12:59 Pantoprazole (Protonix) 40 mg ACBREAKFAST ORAL 05/08/17 06:30 06/06/17 08:59 05/13/17 06:23 Phosphorus (Phospha 250 Neutral) 250 mg THREE TIMES A DAY ORAL 05/11/17 13:00 06/10/17 12:59 05/12/17 17:27 Polyethylene Glycol (Miralax) 17 gm BEDTIME ORAL 05/12/17 21:00 06/11/17 20:59 Tamsulosin HCl (Flomax) 0.4 mg BEDTIME ORAL 05/08/17 21:00 06/07/17 20:59 05/12/17 20:15 Temazepam (Restoril) 15 mg HSPRN PRN ORAL Insomnia 05/08/17 18:45 05/15/17 18:44 05/08/17 22:17 Item Value Date Time Bedside Blood Glucose 425 mg/dl H 05/13/17 0630 Bedside Blood Glucose 162 mg/dl H 05/12/17 2100 Bedside Blood Glucose 90 mg/dl 05/12/17 1636 Bedside Blood Glucose 64 mg/dl L 05/12/17 1150 Bedside Blood Glucose 301 mg/dl H 05/12/17 0822 Bedside Blood Glucose 301 mg/dl H 05/12/17 0630 IVY SULLIVAN May 13, 2017 07:04
[2017-05-13 07:06] LABS: BASOPHILS % (AUTO) 1.2 % (0.0-2.0); EOSINOPHILS % (AUTO) 0.8 % (0.0-3.0); LYMPHOCYTES % (AUTO) 32.9 % (20.0-45.0); MEAN CORPUSCULAR HEMOGLOBIN 31.3 PG (27.0-31.0); MEAN CORPUSCULAR VOLUME 98 FL (80-99); MEAN PLATELET VOLUME 6.7 FL (6.5-10.1); MONOCYTES % (AUTO) 5.9 % (1.0-10.0); NEUTROPHILS % (AUTO) 59.2 % (45.0-75.0); PLATELET COUNT 220 K/UL (150-450); RED BLOOD COUNT 2.91 M/UL (4.20-5.40); RED CELL DISTRIBUTION WIDTH 16.4 % (11.6-14.8); WHITE BLOOD COUNT 5.7 K/UL (4.8-10.8)
[2017-05-13 07:24] LABS: ANION GAP 11 mmol/L (5-15); CALCIUM 8.9 MG/DL (8.5-10.1); CARBON DIOXIDE 28 MMOL/L (21-32); CHLORIDE 97 MMOL/L (98-107); GLOMERULAR FILTRATION RATE > 60 mL/min (>60); POTASSIUM 4.4 MMOL/L (3.5-5.1); SODIUM 136 MMOL/L (136-145)
[2017-05-13] MEDS: Phospha 250 Neutral tab ORAL SCH ×2 (08:29→13:33)
[2017-05-13] MEDS: Magnesium Oxide 400mg tab ORAL SCH ×2 (08:30→13:33)
[2017-05-13] MEDS: Lisinopril 20mg tab ORAL SCH (08:30)
[2017-05-13] MEDS: Metoprolol Tartrate 12.5mg TAB ORAL SCH (08:31)
[2017-05-13] MEDS: Losartan 50mg tab ORAL SCH (08:31)
[2017-05-13] MEDS: Levemir Flexpen SUBQ SCH (08:37)
[2017-05-13 08:44] VITALS: BP 136/75
[2017-05-13] MEDS: Lactulose 20gm/30ml UDC ORAL SCH (08:57)
[2017-05-13] MEDS: Docusate 100mg cap ORAL SCH (08:58)
[2017-05-13] MEDS: Heparin 5000 units/ml inj SUBQ SCH (08:58)
--- NOTE | 2017-05-13 10:33 | GI Progress Note ---
Assessment/Plan Problems: (1) Diabetic ketoacidosis, type I ICD Codes: E10.10 - Type 1 diabetes mellituswith ketoacidosis without coma SNOMED: 491095507 (2) Dehydration ICD Codes: E86.0 - Dehydration SNOMED: 21359971 (3) Hypoalbuminemia ICD Codes: E88.09 - Other disorders of plasma-protein metabolism, not elsewhere classified SNOMED: 258235741 (4) Pancreatitis ICD Codes: K85.90 - Acute pancreatitis without necrosis or infection, unspecified SNOMED: 85885256 (5) Non-compliance with treatment ICD Codes: Z91.19 - Non-compliance with treatment SNOMED: 5735004 (6) Diabetic gastroparesis ICD Codes: E11.43 - Diabetic gastroparesis SNOMED: 76276646 (7) GERD (gastroesophageal reflux disease) ICD Codes: K21.9 - Gastro-esophageal reflux disease without esophagitis SNOMED: 455082358 (8) DKA (diabetic ketoacidoses) ICD Codes: E13.10 - Other specified diabetes mellitus with ketoacidosis without coma SNOMED: 98774420, 047904291 Status: stable Status Narrative Discussed with Dr. Patel. Assessment/Plan DATE OF PROCEDURE: 04/22/2015 PROCEDURE: Upper endoscopy with biopsy. SUMMARY OF FINDINGS: 1. Esophagitis. 2. Gastritis, status post biopsy. anemia 2/2 renal disease elevated lipase utox negative ppi daily management of DKA per primary team fu labs dc planning pending monitor H&H bowel regime >> colace, miralax and dulcolax Subjective Subjective feels better Objective Last 24 Hour Vital Signs Date Time Temp Pulse Resp B/P (MAP) Pulse Ox O2 Delivery O2 Flow Rate FiO2 05/13/17 08:53 96.2 05/13/17 08:44 91 136/75 99 Room Air 05/13/17 08:31 136/75 05/13/17 08:31 91 136/75 05/13/17 08:30 136/75 05/13/17 06:24 131/63 05/13/17 04:28 181/96 05/13/17 04:00 98.1 94 20 181/96 99 Room Air 05/13/17 00:06 98.2 84 19 160/92 97 Room Air 05/12/17 23:51 160/92 11/26/17 21:30 168/94 05/12/17 20:15 86 170/90 05/12/17 20:15 170/90 05/12/17 20:13 98.4 86 20 170/90 95 Room Air 05/12/17 17:27 144/76 05/12/17 16:35 148/74 05/12/17 16:17 84 148/74 05/12/17 12:59 98.3 05/12/17 12:00 153/83 05/12/17 11:52 98.3 85 19 153/83 95 Room Air Laboratory Tests Test 05/13/17 04:50 White Blood Count 5.7 K/UL (4.8-10.8) Red Blood Count 2.91 M/UL (4.20-5.40) L Hemoglobin 9.1 G/DL (12.0-16.0) L Hematocrit 28.4 % (37.0-47.0) L Mean Corpuscular Volume 98 FL (80-99) Mean Corpuscular Hemoglobin 31.3 PG (27.0-31.0) H Mean Corpuscular Hemoglobin Concent 32.0 G/DL (32.0-36.0) Red Cell Distribution Width 16.4 % (11.6-14.8) H Platelet Count 220 K/UL (150-450) Mean Platelet Volume 6.7 FL (6.5-10.1) Neutrophils (%) (Auto) 59.2 % (45.0-75.0) Lymphocytes (%) (Auto) 32.9 % (20.0-45.0) Monocytes (%) (Auto) 5.9 % (1.0-10.0) Eosinophils (%) (Auto) 0.8 % (0.0-3.0) Basophils (%) (Auto) 1.2 % (0.0-2.0) Sodium Level 136 MMOL/L (136-145) Potassium Level 4.4 MMOL/L (3.5-5.1) Chloride Level 97 MMOL/L (98-107) L Carbon Dioxide Level 28 MMOL/L (21-32) Anion Gap 11 mmol/L (5-15) Blood Urea Nitrogen 14 mg/dL (7-18) Creatinine 1.0 MG/DL (0.55-1.30) Estimat Glomerular Filtration Rate > 60 mL/min (>60) Glucose Level 423 MG/DL (74-106) #H Calcium Level 8.9 MG/DL (8.5-10.1) Height (Feet): 5 Height (Inches): 4.00 Weight (Pounds): 130 General Appearance: WD/WN, no apparent distress, alert, thin Cardiovascular: normal rate Respiratory/Chest: normal breath sounds, no respiratory distress Abdominal Exam: normal bowel sounds, non tender, soft Extremities: normal range of motion, non-tender Venus Hart N.P. May 13, 2017 10:33
[2017-05-13] MEDS ORDERED: NOVOLOG100 UNITS1 SUBQ (11:03)
[2017-05-13] MEDS ORDERED: LEVEMIR FL100 UNIT/1 SUBQ (11:03)
--- NOTE | 2017-05-13 11:06 | Internal Med Progress Note ---
Subjective Date of Service: May 13, 2017 Physician Name Anastacio Jacobsen Attending Physician Aries Hardin MD Current Medications Medications (Trade) Dose Ordered Sig/Lizbeth Route PRN Reason Start Time Stop Time Status Last Admin Dose Admin Acetaminophen/ Hydrocodone Bitart ([place] 5/325) 1 tab Q4H PRN ORAL Moderate Pain (Pain Scale 4-6) 05/09/17 20:45 05/16/17 20:44 05/13/17 04:29 Clonidine HCl (Catapres) 0.1 mg Q4H PRN ORAL SBP>160 05/08/17 16:00 06/07/17 15:59 05/13/17 04:28 Dextrose (Dextrose 50%) STAT PRN IV Hypoglycemia 05/08/17 13:00 06/06/17 12:59 05/09/17 16:02 Docusate Sodium (Colace) 100 mg TWICE A DAY ORAL 05/12/17 09:00 06/11/17 08:59 05/12/17 12:00 Glucagon (Glucagon) 1 mg PRN PRN IM Hypoglycemia 05/10/17 13:45 06/09/17 13:44 05/10/17 13:53 Heparin Sodium (Porcine) (Heparin 5000 units/ml) 5,000 units EVERY 12 HOURS SUBQ 05/07/17 21:00 06/05/17 20:59 05/12/17 08:14 Hydralazine HCl (Apresoline) 50 mg Q6HR ORAL 05/12/17 08:00 06/11/17 07:59 05/13/17 06:24 Insulin Aspart (NovoLOG) BEFORE MEALS AND HS SUBQ 05/07/17 16:30 06/06/17 11:29 05/13/17 06:26 Insulin Aspart (NovoLOG) 3 units NOVOTIAC SUBQ 05/11/17 07:30 06/10/17 07:29 05/13/17 06:27 Insulin Detemir (Levemir) 15 units DAILY SUBQ 05/11/17 09:00 06/10/17 08:59 05/13/17 08:37 Lactulose (Cephulac) 30 gm BID ORAL 05/12/17 09:00 06/11/17 08:59 05/12/17 17:30 Lisinopril (Prinivil) 20 mg DAILY ORAL 05/11/17 10:00 06/10/17 09:59 05/13/17 08:30 Losartan Potassium (Cozaar) 50 mg DAILY ORAL 05/12/17 15:15 06/11/17 15:14 05/13/17 08:31 Magnesium Oxide (Mag-Ox 400mg) 400 mg THREE TIMES A DAY ORAL 05/11/17 13:00 06/10/17 12:59 05/13/17 08:30 Metoclopramide HCl (Reglan) 5 mg TIAC ORAL 05/07/17 16:30 06/06/17 16:29 05/13/17 06:23 Metoprolol Tartrate (Lopressor) 12.5 mg Q12HR ORAL 05/11/17 21:00 06/10/17 20:59 05/13/17 08:31 Morphine Sulfate (Morphine Sulfate) 2 mg Q4H PRN IV Severe Pain (Pain Scale 7-10) 05/09/17 21:00 05/13/17 12:59 05/10/17 08:10 Ondansetron HCl (Zofran) 4 mg Q6H PRN IVP Nausea & Vomiting 05/07/17 13:00 06/05/17 12:59 Pantoprazole (Protonix) 40 mg ACBREAKFAST ORAL 05/08/17 06:30 06/06/17 08:59 05/13/17 06:23 Phosphorus (Phospha 250 Neutral) 250 mg THREE TIMES A DAY ORAL 05/11/17 13:00 06/10/17 12:59 05/13/17 08:29 Polyethylene Glycol (Miralax) 17 gm BEDTIME ORAL 05/12/17 21:00 06/11/17 20:59 Tamsulosin HCl (Flomax) 0.4 mg BEDTIME ORAL 05/08/17 21:00 06/07/17 20:59 05/12/17 20:15 Temazepam (Restoril) 15 mg HSPRN PRN ORAL Insomnia 05/08/17 18:45 05/15/17 18:44 05/08/17 22:17 Allergies: Coded Allergies: No Known Allergies (Unverified , 04/24/14) ROS Limited/Unobtainable: No Constitutional: Reports: no symptoms HEENT: Reports: no symptoms Cardiovascular: Reports: no symptoms Respiratory: Reports: no symptoms Gastrointestinal/Abdominal: Reports: no symptoms Genitourinary: Reports: no symptoms Neurologic/Psychiatric: Reports: no symptoms Subjective 46 YO type I diabetic admitted with hyperglycemia. Better glucose control. Cover for Int Med-Dr Hardin. Objective Last Vital Signs Date Time Temp Pulse Resp B/P (MAP) Pulse Ox O2 Delivery O2 Flow Rate FiO2 05/13/17 08:53 96.2 05/13/17 08:44 91 136/75 99 Room Air 05/13/17 04:00 20 05/06/17 03:45 4.0 Laboratory Tests Test 05/13/17 04:50 White Blood Count 5.7 K/UL (4.8-10.8) Red Blood Count 2.91 M/UL (4.20-5.40) L Hemoglobin 9.1 G/DL (12.0-16.0) L Hematocrit 28.4 % (37.0-47.0) L Mean Corpuscular Volume 98 FL (80-99) Mean Corpuscular Hemoglobin 31.3 PG (27.0-31.0) H Mean Corpuscular Hemoglobin Concent 32.0 G/DL (32.0-36.0) Red Cell Distribution Width 16.4 % (11.6-14.8) H Platelet Count 220 K/UL (150-450) Mean Platelet Volume 6.7 FL (6.5-10.1) Neutrophils (%) (Auto) 59.2 % (45.0-75.0) Lymphocytes (%) (Auto) 32.9 % (20.0-45.0) Monocytes (%) (Auto) 5.9 % (1.0-10.0) Eosinophils (%) (Auto) 0.8 % (0.0-3.0) Basophils (%) (Auto) 1.2 % (0.0-2.0) Sodium Level 136 MMOL/L (136-145) Potassium Level 4.4 MMOL/L (3.5-5.1) Chloride Level 97 MMOL/L (98-107) L Carbon Dioxide Level 28 MMOL/L (21-32) Anion Gap 11 mmol/L (5-15) Blood Urea Nitrogen 14 mg/dL (7-18) Creatinine 1.0 MG/DL (0.55-1.30) Estimat Glomerular Filtration Rate > 60 mL/min (>60) Glucose Level 423 MG/DL (74-106) #H Calcium Level 8.9 MG/DL (8.5-10.1) Objective General Appearance: WD/WN, no apparent distress, alert EENT: PERRL/EOMI, normal ENT inspection Neck: non-tender, normal alignment, supple Cardiovascular: normal peripheral pulses, normal rate, regular rhythm, no gallop/murmur, no JVD Respiratory/Chest: chest wall non-tender, lungs clear, normal breath sounds, no respiratory distress, no accessory muscle use Abdomen: normal bowel sounds, non tender, soft, no organomegaly, no mass Extremities: normal range of motion 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 Cont levemir and novolog sliding scale. See endocrinology note. (2) DKA (diabetic ketoacidosis) Assessment & Plan: See endocrinology consult-adjust levemir and novolog sliding scale. (3) Diabetic nephropathy Assessment & Plan: see nephrology note. (4) Renal insufficiency Assessment & Plan: See nephrology note. (5) SOB (shortness of breath) (6) Diabetes mellitus type 1, uncontrolled, insulin dependent (7) Hypertension Assessment & Plan: D/C lisinopril; start valsartan (8) Renal failure (9) Diabetic gastroparesis (10) GERD (gastroesophageal reflux disease) (11) Major depression Status: stable Assessment/Plan Discharge home today. ANASTACIO JACOBSEN May 13, 2017 11:06
--- NOTE | 2017-05-13 11:10 | Nephrology Progress Note ---
Assessment/Plan Problem List: (1) Urinary retention (2) ARF (acute renal failure) (3) Dehydration (4) Diabetic ketoacidosis, type I Assessment BS better- Acidosis improved BP up 1. Diabetic type 1 2. h/o Diabetic ketoacidosis (CC) 3. History of gastroesophageal reflux disease. 4. Depression. 5. Hypertension. 6. back pain 7. Anemia Plan Plan: PO Phos and Mag Increase lisinopril add Lopressor Jay discontinued- voiding well DC IV fluid- mag and phos and K supplement as needed Keep BP in check- Monitor renal parameters and Chemistries- Urine studies IV Iron once Avoid Nephrotoxics Per orders Subjective ROS Limited/Unobtainable: No Constitutional: Reports: malaise, weakness Objective Objective Last 24 Hour Vital Signs Date Time Temp Pulse Resp B/P (MAP) Pulse Ox O2 Delivery O2 Flow Rate FiO2 05/13/17 08:53 96.2 05/13/17 08:44 91 136/75 99 Room Air 05/13/17 08:31 136/75 05/13/17 08:31 91 136/75 05/13/17 08:30 136/75 05/13/17 06:24 131/63 05/13/17 04:28 181/96 05/13/17 04:00 98.1 94 20 181/96 99 Room Air 05/13/17 00:06 98.2 84 19 160/92 97 Room Air 05/12/17 23:51 160/92 05/12/17 21:30 168/94 05/12/17 20:15 86 170/90 05/12/17 20:15 170/90 05/12/17 20:13 98.4 86 20 170/90 95 Room Air 05/12/17 17:27 144/76 05/12/17 16:35 148/74 05/12/17 16:17 84 148/74 05/12/17 12:59 98.3 05/12/17 12:00 153/83 05/12/17 11:52 98.3 85 19 153/83 95 Room Air Laboratory Tests 05/13/17 04:50: White Blood Count 5.7, Red Blood Count 2.91L, Hemoglobin 9.1L, Hematocrit 28.4L , Mean Corpuscular Volume 98, Mean Corpuscular Hemoglobin 31.3H, Mean Corpuscular Hemoglobin Concent 32.0, Red Cell Distribution Width 16.4H, Platelet Count 220, Mean Platelet Volume 6.7, Neutrophils (%) (Auto) 59.2, Lymphocytes (%) (Auto) 32.9, Monocytes (%) (Auto) 5.9, Eosinophils (%) (Auto) 0.8, Basophils (%) (Auto) 1.2, Sodium Level 136, Potassium Level 4.4, Chloride Level 97L, Carbon Dioxide Level 28, Anion Gap 11, Blood Urea Nitrogen 14, Creatinine 1.0, Estimat Glomerular Filtration Rate > 60, Glucose Level 423#H, Calcium Level 8.9 Height (Feet): 5 Height (Inches): 4.00 Weight (Pounds): 130 General Appearance: no apparent distress Objective no change in PE KYMBERLY SEAMAN May 13, 2017 11:10
[2017-05-13 12:00] VITALS: BP 129/69
[2017-05-13 12:20] VITALS: BP 153/75
--- NOTE | 2017-05-13 13:36 | Pulmonology Progress Note ---
Assessment/Plan Problems: (1) Diabetic ketoacidosis, type I (2) ARF (acute renal failure) (3) HTN (hypertension) (4) Hypertension (5) Diabetic nephropathy (6) Major depression Assessment/Plan improving BS better today Bicarb higher, normal now supplement K, phos, mag adjust insulin check electrolytes in am eating well, no nausea. dc planning for today Subjective ROS Limited/Unobtainable: No Constitutional: Reports: no symptoms HEENT: Repors: no symptoms Respiratory: Reports: no symptoms Allergies: Coded Allergies: No Known Allergies (Unverified , 04/24/14) Objective Last 24 Hour Vital Signs Date Time Temp Pulse Resp B/P (MAP) Pulse Ox O2 Delivery O2 Flow Rate FiO2 05/13/17 12:20 153/75 05/13/17 12:00 97.7 81 19 129/69 99 05/13/17 08:53 96.2 05/13/17 08:44 91 136/75 99 Room Air 05/13/17 08:31 136/75 05/13/17 08:31 91 136/75 05/13/17 08:30 136/75 05/13/17 06:24 131/63 05/13/17 04:28 181/96 05/13/17 04:00 98.1 94 20 181/96 99 Room Air 05/13/17 00:06 98.2 84 19 160/92 97 Room Air 05/12/17 23:51 160/92 05/12/17 21:30 168/94 05/12/17 20:15 86 170/90 05/12/17 20:15 170/90 05/12/17 20:13 98.4 86 20 170/90 95 Room Air 05/12/17 17:27 144/76 05/12/17 16:35 148/74 05/12/17 16:17 84 148/74 Objective General Appearance: WD/WN HEENT: normocephalic, anicteric Cardiovascular: normal peripheral pulses, normal rate Abdomen: normal bowel sounds, no organomegaly Genitourinary: normal external genitalia Extremities: no clubbing Skin: no lesions Lymphatic: no neck adenopathy Laboratory Tests 05/13/17 04:50: White Blood Count 5.7, Red Blood Count 2.91L, Hemoglobin 9.1L, Hematocrit 28.4L , Mean Corpuscular Volume 98, Mean Corpuscular Hemoglobin 31.3H, Mean Corpuscular Hemoglobin Concent 32.0, Red Cell Distribution Width 16.4H, Platelet Count 220, Mean Platelet Volume 6.7, Neutrophils (%) (Auto) 59.2, Lymphocytes (%) (Auto) 32.9, Monocytes (%) (Auto) 5.9, Eosinophils (%) (Auto) 0.8, Basophils (%) (Auto) 1.2, Sodium Level 136, Potassium Level 4.4, Chloride Level 97L, Carbon Dioxide Level 28, Anion Gap 11, Blood Urea Nitrogen 14, Creatinine 1.0, Estimat Glomerular Filtration Rate > 60, Glucose Level 423#H, Calcium Level 8.9, Magnesium Level 1.7L Current Medications Medications (Trade) Dose Ordered Sig/Lizbeth Route PRN Reason Start Time Stop Time Status Last Admin Dose Admin Acetaminophen/ Hydrocodone Bitart ([place] 5/325) 1 tab Q4H PRN ORAL Moderate Pain (Pain Scale 4-6) 05/09/17 20:45 05/16/17 20:44 05/13/17 12:12 Clonidine HCl (Catapres) 0.1 mg Q4H PRN ORAL SBP>160 05/08/17 16:00 06/07/17 15:59 05/13/17 04:28 Dextrose (Dextrose 50%) STAT PRN IV Hypoglycemia 05/08/17 13:00 06/06/17 12:59 05/09/17 16:02 Docusate Sodium (Colace) 100 mg TWICE A DAY ORAL 05/12/17 09:00 06/11/17 08:59 05/12/17 12:00 Glucagon (Glucagon) 1 mg PRN PRN IM Hypoglycemia 05/10/17 13:45 06/09/17 13:44 05/10/17 13:53 Heparin Sodium (Porcine) (Heparin 5000 units/ml) 5,000 units EVERY 12 HOURS SUBQ 05/07/17 21:00 06/05/17 20:59 05/12/17 08:14 Hydralazine HCl (Apresoline) 50 mg Q6HR ORAL 05/12/17 08:00 06/11/17 07:59 05/13/17 12:20 Insulin Aspart (NovoLOG) BEFORE MEALS AND HS SUBQ 05/07/17 16:30 06/06/17 11:29 05/13/17 11:57 Insulin Aspart (NovoLOG) 3 units NOVOTIAC SUBQ 05/11/17 07:30 06/10/17 07:29 05/13/17 11:55 Insulin Detemir (Levemir) 15 units DAILY SUBQ 05/11/17 09:00 06/10/17 08:59 05/13/17 08:37 Lactulose (Cephulac) 30 gm BID ORAL 05/12/17 09:00 06/11/17 08:59 05/12/17 17:30 Lisinopril (Prinivil) 20 mg DAILY ORAL 05/11/17 10:00 06/10/17 09:59 05/13/17 08:30 Losartan Potassium (Cozaar) 50 mg DAILY ORAL 05/12/17 15:15 06/11/17 15:14 05/13/17 08:31 Magnesium Oxide (Mag-Ox 400mg) 400 mg THREE TIMES A DAY ORAL 05/11/17 13:00 06/10/17 12:59 05/13/17 08:30 Metoclopramide HCl (Reglan) 5 mg TIAC ORAL 05/07/17 16:30 06/06/17 16:29 05/13/17 12:01 Metoprolol Tartrate (Lopressor) 12.5 mg Q12HR ORAL 05/11/17 21:00 06/10/17 20:59 05/13/17 08:31 Ondansetron HCl (Zofran) 4 mg Q6H PRN IVP Nausea & Vomiting 05/07/17 13:00 06/05/17 12:59 Pantoprazole (Protonix) 40 mg ACBREAKFAST ORAL 05/08/17 06:30 06/06/17 08:59 05/13/17 06:23 Phosphorus (Phospha 250 Neutral) 250 mg THREE TIMES A DAY ORAL 05/11/17 13:00 06/10/17 12:59 05/13/17 08:29 Polyethylene Glycol (Miralax) 17 gm BEDTIME ORAL 05/12/17 21:00 06/11/17 20:59 Tamsulosin HCl (Flomax) 0.4 mg BEDTIME ORAL 05/08/17 21:00 06/07/17 20:59 05/12/17 20:15 Temazepam (Restoril) 15 mg HSPRN PRN ORAL Insomnia 05/08/17 18:45 05/15/17 18:44 05/08/17 22:17 VANESSA SAGASTUME May 13, 2017 13:36
--- NOTE | 2017-05-15 08:20 | Discharge Summary ---
Discharge Summary Hospital Course Date of Admission May 06, 2017 at 00:39 Date of Discharge May 13, 2017 at 16:00 Admitting Diagnosis hyperglycemia HPI Tricia Carpio is a 46 year old female who was admitted on May 06, 2017 at 00 :39 for Hyperglycemia Hospital Course dc summary #[id number] Discharge Medications New Medications: Insulin Aspart (Novolog Flexpen) 100 Unit/1 Ml Insuln.pen 3 UNITS SUBQ NOVOTIAC for 30 Days, EA Insulin Detemir (Levemir Flexpen) 100 Unit/1 Ml Insuln.pen 15 UNITS SUBQ DAILY for 30 Days, EA Continued Medications: Amlodipine Besylate (Norvasc) 5 Mg Tab 10 MG ORAL DAILY, #30 TAB Clonidine HCl (Clonidine HCl) 0.1 Mg Tablet 0.1 MG ORAL Q4H PRN, #30 TAB Escitalopram Oxalate* (Lexapro*) 20 Mg Tablet 20 MG ORAL DAILY, TAB Hydrochlorothiazide* (Hydrochlorothiazide*) 12.5 Mg Capsule Unknown Dose ORAL DAILY, CAP Hydrocodone Bitartrate (Hysingla ER) 20 Mg Tab.er.24h Unknown Dose PO, TAB Ibuprofen* (Motrin*) 600 Mg Tablet 600 MG ORAL Q6H PRN for For Pain, #30 TAB Insulin Aspart (Novolog Flexpen) 100 Unit/1 Ml Insuln.pen 0 UNITS SUBQ BEFORE MEALS AND HS for 30 Days, EA Insulin Aspart (Novolog Flexpen) 100 Unit/1 Ml Insuln.pen 8 UNITS SUBQ NOVOTIAC for 30 Days, EA Meloxicam* (Meloxicam*) 15 Mg Tablet 15 MG PO DAILY, #30 Mirtazapine* (Mirtazapine*) 15 Mg Tablet 7.5 MG ORAL BEDTIME for 30 Days, TAB Ondansetron Odt* (Zofran Odt*) 4 Mg Tab.rapdis 4 MG ORAL Q6H PRN for Nausea & Vomiting, #20 TAB 0 Refills Pantoprazole* (Protonix*) 40 Mg Tablet.dr 40 MG ORAL DAILY, TAB Potassium Chloride (Potassium Chloride) 10 Meq Tab.er.prt 10 MEQ PO, TAB Pregabalin (Lyrica) 50 Mg Capsule 50 MG PO BID, #60 Valsartan (Diovan) 160 Mg Tablet 160 MG ORAL BID, #60 TAB [Insulin] () Discontinued Medications: Amoxicillin* (Amoxicillin*) 200 Mg/5 Ml Susp.recon Unknown Dose PO, ML Insulin Detemir (Levemir Flexpen) 100 Unit/1 Ml Insuln.pen 24 UNITS SUBQ DAILY for 30 Days, EA Insulin Detemir (Levemir Flexpen) 100 Unit/1 Ml Insuln.pen 18 UNITS SUBQ QHS, #300 UNITS 0 Refills Insulin Lispro (Humalog) 100 Unit/1 Ml Cartridge 0 SUBQ, #1 UNITS 0 Refills Lisinopril (Lisinopril*) 5 Mg Tablet Unknown Dose ORAL DAILY, TAB Nitrofurantoin Monohyd/M-Cryst* (Macrobid 100 Mg*) 100 Mg Capsule 100 MG ORAL EVERY 12 HOURS for 5 Days, #10 CAP Nitrofurantoin Monohyd/M-Cryst* (Macrobid 100 Mg*) 100 Mg Capsule 100 MG ORAL EVERY 12 HOURS for 5 Days, #10 CAP Discharge Condition Upon Discharge: stable Discharge Disposition Patient was discharged home Discharge Diagnoses: Discharge Instructions Discharge Instructions Special Instructions I have been assigned to complete a D/C Summary on this account. I was not involved in the patient management Jossy Guzman NP (Vanchtein) May 15, 2017 08:20
--- NOTE | 2017-05-16 01:00 | Discharge Summary 2 SIG ---
DATE OF ADMISSION: 05/06/2017 DATE OF DISCHARGE: 05/13/2017 REASON FOR ADMISSION: 46 years old female with history of diabetes mellitus type 1, hypertension, GERD, depression, and noncompliance with medications, presented with a complaint of elevated blood sugar. Blood sugar on admission -594 with evidence of severe metabolic acidosis on ABG and chemistry. The patient was found to be in diabetic ketoacidosis and acute renal failure and admitted for further management. HOSPITAL COURSE: The patient was initially admitted to ICU. The patient was started on insulin drip as per protocol. The patient was provided with aggressive IV hydration. Electrolytes and renal parameters were closely monitored. Radiological Health Specialist, sba underwriter, and drug abuse technician followed this patient closely. When anion gap was closed, insulin drip was discontinued, and the patient was started on regimen of long-acting and short-acting insulin as well as a sliding scale of insulin as needed. Dose of the insulin was titrated as per Head Of Strategy. Hemoglobin A1c-11.6, clearly not at goal. The patient was educated on diabetic diet and compliance with medication regimen and importance of close follow up with primary medical doctor upon discharge. Blood sugar was stable prior to discharge. Renal parameters and electrolytes were closely monitored. According to campaign coordinator, acute renal failure was likely secondary to dehydration as well as urinary retention. Ajy catheter was placed with immediate yield of 1300 mL of urine. The patient was aggressively hydrated. Acute renal failure resolved. Prior to discharge, BUN -14 and creatinine - 1.0. Electrolytes ( phosphorus and magnesium) were replaced as needed. Blood pressure was managed with TERRA inhibitor and beta-ramona. Dose was titrated to keep blood pressure under control. The patient had evidence of anemia. Anemia workup revealed evidence of anemia of chronic disease and low iron. One dose of IV iron was given. Antidepressive medication was continued. GI closely followed the patient. The patient initially with nausea and vomiting, likely related to diabetic ketoacidosis. The patient had an EGD done on 04/22/2017, which revealed gastritis and esophagitis. The patient initially was NPO and then started on diet as tolerated. Diet slowly advanced and patient was able to tolerate diet. Initially, the patient had elevated lipase - 669. Lipase was closely followed up, down to 206. Mild pancreatitis was likely precipitated by nausea, vomiting, and DKA. GI started on PPI daily. Hemoglobin and hematocrit were closely monitored. No need for transfusion on this admission. Bowel regimen was instituted. The patient was educated on compliance with medications. The patient was stable for discharge. FINAL DIAGNOSES: 1. Diabetic ketoacidosis. 2. Diabetes mellitus, type 1. 3. Acute renal failure secondary to dehydration and urinary retention, resolved. 4. Dehydration. 5. Urinary retention. 6. Hypertension. 7. Diabetic nephropathy. 8. Depression. 9. Esophagitis. 10. Gastritis. 11. Anemia of chronic disease. 12. Electrolyte imbalance. DISCHARGE MEDICATIONS: See medication reconciliation list. DISCHARGE INSTRUCTIONS: The patient was discharged home. Follow up with the primary medical doctor. The patient was counseled on compliance with medication regimen and diabetic diet. Aries Hardin M.D. I have been assigned to dictate discharge summary on this account and I was not involved in the patient's management. Jossy TorresSt. Peter'S Health PartnersBianca N.PVenkatesh DR: Zechariah JOB#: [id number] CC: KRISTY
== END 2017-05-13 16:00 | disposition home or self-care (01) | DRG 637 ==
LOC: EDBD 00:27 → EMR 00:35 → ICU 00:39 → EDBEDREQ 02:09 → EDBEDREQSVC 02:09 → EDBEDREQ 02:11 → ENRESERV 02:15 → EDBEDREQ 02:23 → 4E 05-07 12:00
DX: E10.10 Type 1 diabetes mellitus with ketoacidosis without coma (principal); K85.90 Acute pancreatitis without necrosis or infection, unspecified; N17.9 Acute kidney failure, unspecified; E10.21 Type 1 diabetes mellitus with diabetic nephropathy; Z79.4 Long term (current) use of insulin; Z91.14 Patient's other noncompliance with medication regimen; E86.0 Dehydration; R33.9 Retention of urine, unspecified; F32.9 Major depressive disorder, single episode, unspecified; K29.70 Gastritis, unspecified, without bleeding; D63.8 Anemia in other chronic diseases classified elsewhere; E87.8 Other disorders of electrolyte and fluid balance, not elsewhere classified; K21.0 Gastro-esophageal reflux disease with esophagitis; I12.9 Hypertensive chronic kidney disease with stage 1 through stage 4 chronic kidney disease, or unspecified chronic kidney disease; E10.22 Type 1 diabetes mellitus with diabetic chronic kidney disease; N18.9 Chronic kidney disease, unspecified; E88.09 Other disorders of plasma-protein metabolism, not elsewhere classified; M54.9 Dorsalgia, unspecified
CPT/HCPCS: 36415; 36600; 80048; 80053; 80061; 80307; 81003; 82150; 82550; 82553; 82607; 82728; 82746; 82803; 82962; 83036; 83540; 83550; 83605; 83690; 83735; 84100; 84550; 85025; 85651; 86140; 87040; 87081; 87086; 93005; 99291; C9399; J1815; J2405; J8499; S5561

== ENCOUNTER 2017-05-25 22:50 | Inpatient (IN) | payer OTHER ==
[~2017-05-25] VITALS: Ht 157.5 cm; Wt 55.3 kg
[2017-05-25 22:56] VITALS: BP 133/97
[2017-05-25] MEDS ORDERED: D5NS 1,000 ML IV SCH (23:15)
[2017-05-25 23:59] LABS: ANION GAP 7 mmol/L (5-15); CALCIUM 9.3 MG/DL (8.5-10.1); CARBON DIOXIDE 34 MMOL/L (21-32); CHLORIDE 106 MMOL/L (98-107); CREATININE 1.1 MG/DL (0.55-1.30); GLOMERULAR FILTRATION RATE > 60 mL/min (>60); POTASSIUM 4.4 MMOL/L (3.5-5.1); SODIUM 147 MMOL/L (136-145)
[2017-05-26 00:02] LABS: BASOPHILS % (AUTO) 0.9 % (0.0-2.0); EOSINOPHILS % (AUTO) 2.1 % (0.0-3.0); LYMPHOCYTES % (AUTO) 51.4 % (20.0-45.0); MEAN CORPUSCULAR HEMOGLOBIN 31.1 PG (27.0-31.0); MEAN CORPUSCULAR VOLUME 100 FL (80-99); MONOCYTES % (AUTO) 2.2 % (1.0-10.0); NEUTROPHILS % (AUTO) 43.3 % (45.0-75.0); PLATELET COUNT 292 K/UL (150-450); RED BLOOD COUNT 4.08 M/UL (4.20-5.40); RED CELL DISTRIBUTION WIDTH 15.4 % (11.6-14.8); WHITE BLOOD COUNT 5.9 K/UL (4.8-10.8)
[2017-05-26 00:03] LABS: ALANINE AMINOTRANSFERASE 58 U/L (12-78); ALBUMIN/GLOBULIN RATIO 0.8 (1.0-2.7); ASPARTATE AMINO TRANSFERASE 79 U/L (15-37); MAGNESIUM 2.2 MG/DL (1.8-2.4); TOTAL PROTEIN 8.3 G/DL (6.4-8.2)
[2017-05-26] MEDS ORDERED: AMOXICILLIN500 MG ORAL (00:10)
[2017-05-26] MEDS ORDERED: HYDROCHLOROTHIA25 MG ORAL (00:10)
[2017-05-26] MEDS ORDERED: NORCO 5-325 TA1 EAC1 ORAL (00:10)
[2017-05-26 00:56] VITALS: BP 133/87
[2017-05-26 00:57] LABS: APPEARANCE,URINE CLEAR; KETONES,URINE NEGATIVE (NEGATIVE); LEUKOCYTE ESTERASE ,URINE 1+ (NEGATIVE); NITRITE,URINE NEGATIVE (NEGATIVE); PH,URINE 7 (4.5-8.0); PROTEIN,URINE 3+ (NEGATIVE); UROBILINOGEN,URINE NORMAL MG/DL (0.0-1.0)
--- NOTE | 2017-05-26 01:07 | Emergency Room Report ---
History of Present Illness General Chief Complaint: Altered Level of Consciousness Source: Patient, EMS Present Illness HPI 46-year-old female presents ED for evaluation. Patient brought in for altered mental status tonight. Accu-Chek was critically low. Patient has history of diabetes and has an insulin pump. Upon arrival patient is more alert and oriented. Patient was given glucose on route. Patient states she feels okay. Denies any fevers or chills. Denies any chest pain or shortness of breath. Denies nausea or vomiting. No other aggravating relieving factors. Denies any other associated symptoms Allergies: Coded Allergies: No Known Allergies (Unverified , 04/24/14) Patient History Past Medical History: DM, HTN, GERD Pertinent Family History: none Social History: Denies: smoking, alcohol use, drug use Now: No Immunizations: UTD Reviewed Nursing Documentation: PMH: Agreed, PSxH: Agreed Nursing Documentation-PMH Past Medical History: No History, Except For Hx Cardiac Problems: Yes Hx Hypertension: Yes Hx Pacemaker: No Hx Diabetes: Yes Hx Cancer: No Hx Gastrointestinal Problems: Yes - GERD Hx Neurological Problems: No Hx Concentration Difficulty: No Review of Systems All Other Systems: negative except mentioned in HPI Physical Exam Vital Signs Date Time Temp Pulse Resp B/P (MAP) Pulse Ox O2 Delivery O2 Flow Rate FiO2 05/25/17 22:52 97.5 94 12 133/97 97 Room Air Sp02 EP Interpretation: reviewed, normal General Appearance: alert, GCS 15, non-toxic, lethargic Head: normocephalic, atraumatic Eyes: bilateral eye normal inspection, bilateral eye PERRL ENT: hearing grossly normal, normal pharynx, no angioedema, normal voice Neck: full range of motion, supple/symm/no masses Respiratory: chest non-tender, lungs clear, normal breath sounds, speaking full sentences Cardiovascular #1: regular rate, rhythm, no edema Cardiovascular #2: 2+ carotid (R), 2+ carotid (L), 2+ radial (R), 2+ radial (L) , 2+ dorsalis pedis (R), 2+ dorsalis pedis (L) Gastrointestinal: normal bowel sounds, non tender, soft, non-distended, no guarding, no rebound Rectal: deferred Genitourinary: normal inspection, no CVA tenderness Musculoskeletal: back normal, gait/station normal, normal range of motion, non- tender Neurologic: alert, oriented x3, responsive, motor strength/tone normal, sensory intact, speech normal Psychiatric: judgement/insight normal, memory normal, mood/affect normal, no suicidal/homicidal ideation Reflexes: 3+ bicep (R), 3+ bicep (L), 3+ tricep (R), 3+ tricep (L), 3+ knee (R) , 3+ knee (L) Skin: normal color, no rash, warm/dry, well hydrated Lymphatic: no adenopathy Medical Decision Making Diagnostic Impression: Primary Impression: Altered level of consciousness Additional Impression: Hypoglycemia ER Course Hospital Course 46-year-old female presenting to ED with generalized weakness, low FS in field Differential diagnoses include: dehyration, sepsis, hypoglycemia Clinical course Patient placed on stretcher. On cardiac rn. After initial history and physical I ordered labs, D5 NS Labs-glucose 117, electrolytes ok, no leukocytosis, hb/hct stable Because insulin pump is not functioning properly, it is possible that she can again become hypoglycemic. Patient recommended to be admitted. Patient agrees to plan. Case discussed with Dr. Hardin and he agreed to accept the patient to his service for further care and support i. I feel this is a highly complex case requiring extensive working including EKG/Rhythm strip, Xray/CT/US, Blood/urine lab work, repeat exams while in ED, and administration of strong opiates/narcotics for pain control, admission to hospital or close patient follow up. diagnosis - hypoglycemia, ALOC admitted to floor in serious condition Labs Test 05/25/17 23:20 05/26/17 00:23 White Blood Count 5.9 K/UL (4.8-10.8) Red Blood Count 4.08 M/UL (4.20-5.40) Hemoglobin 12.7 G/DL (12.0-16.0) Hematocrit 41.0 % (37.0-47.0) Mean Corpuscular Volume 100 FL (80-99) Mean Corpuscular Hemoglobin 31.1 PG (27.0-31.0) Mean Corpuscular Hemoglobin Concent 31.0 G/DL (32.0-36.0) Red Cell Distribution Width 15.4 % (11.6-14.8) Platelet Count 292 K/UL (150-450) Mean Platelet Volume 8.0 FL (6.5-10.1) Neutrophils (%) (Auto) 43.3 % (45.0-75.0) Lymphocytes (%) (Auto) 51.4 % (20.0-45.0) Monocytes (%) (Auto) 2.2 % (1.0-10.0) Eosinophils (%) (Auto) 2.1 % (0.0-3.0) Basophils (%) (Auto) 0.9 % (0.0-2.0) Sodium Level 147 MMOL/L (136-145) Potassium Level 4.4 MMOL/L (3.5-5.1) Chloride Level 106 MMOL/L (98-107) Carbon Dioxide Level 34 MMOL/L (21-32) Anion Gap 7 mmol/L (5-15) Blood Urea Nitrogen 32 mg/dL (7-18) Creatinine 1.1 MG/DL (0.55-1.30) Estimat Glomerular Filtration Rate > 60 mL/min (>60) Glucose Level 117 MG/DL (74-106) Calcium Level 9.3 MG/DL (8.5-10.1) Magnesium Level 2.2 MG/DL (1.8-2.4) Total Bilirubin 0.4 MG/DL (0.2-1.0) Aspartate Amino Transf (AST/SGOT) 79 U/L (15-37) Alanine Aminotransferase (ALT/SGPT) 58 U/L (12-78) Alkaline Phosphatase 122 U/L (46-116) Total Protein 8.3 G/DL (6.4-8.2) Albumin 3.6 G/DL (3.4-5.0) Globulin 4.7 g/dL Albumin/Globulin Ratio 0.8 (1.0-2.7) Human Chorionic Gonadotropin, Qual Negative Acetone Level Negative (NEGATIVE) Last Vital Signs Date Time Temp Pulse Resp B/P (MAP) Pulse Ox O2 Delivery O2 Flow Rate FiO2 05/25/17 22:56 97.5 118 12 133/97 97 Room Air Status: improved Disposition: ADMITTED INPATIENT Condition: Serious Referrals: Aries Hardin MD (PCP) MAYTE RUSSELL M.D. May 26, 2017 01:07
[2017-05-26 01:10] LABS: BACTERIA,URINE OCCASIONAL /HPF; SQUAMOUS EPITHELIAL CELL,UR OCCASIONAL /LPF (NONE/OCC)
[2017-05-26 01:50] VITALS: BP 148/97
[2017-05-26] MEDS ORDERED: Norco 5mg/325mg tab ORAL PRN (03:30)
[2017-05-26 04:00] VITALS: BP 157/95
[2017-05-26] MEDS ORDERED: Amoxicillin 500mg cap ORAL SCH ×2 (06:00→12:00)
[2017-05-26] MEDS: NovoLOG Insulin Flexpen SUBQ SCH ×4 (06:34→21:00)
[2017-05-26 08:05] LABS: BASOPHILS % (AUTO) 0.9 % (0.0-2.0); EOSINOPHILS % (AUTO) 0.2 % (0.0-3.0); LYMPHOCYTES % (AUTO) 16.7 % (20.0-45.0); MEAN CORPUSCULAR HEMOGLOBIN 31.4 PG (27.0-31.0); MEAN CORPUSCULAR HGB CONC 31.1 G/DL (32.0-36.0); MEAN CORPUSCULAR VOLUME 101 FL (80-99); MEAN PLATELET VOLUME 7.8 FL (6.5-10.1); MONOCYTES % (AUTO) 3.9 % (1.0-10.0); NEUTROPHILS % (AUTO) 78.4 % (45.0-75.0); PLATELET COUNT 296 K/UL (150-450); RED BLOOD COUNT 3.81 M/UL (4.20-5.40); RED CELL DISTRIBUTION WIDTH 15.4 % (11.6-14.8); WHITE BLOOD COUNT 4.3 K/UL (4.8-10.8)
[2017-05-26 08:32] LABS: ALANINE AMINOTRANSFERASE 57 U/L (12-78); ALBUMIN/GLOBULIN RATIO 0.8 (1.0-2.7); ANION GAP 11 mmol/L (5-15); ASPARTATE AMINO TRANSFERASE 58 U/L (15-37); CALCIUM 9.3 MG/DL (8.5-10.1); CARBON DIOXIDE 30 MMOL/L (21-32); CHLORIDE 103 MMOL/L (98-107); CREATININE 1.1 MG/DL (0.55-1.30); GLOMERULAR FILTRATION RATE > 60 mL/min (>60); PHOSPHORUS 3.7 MG/DL (2.5-4.9); POTASSIUM 4.7 MMOL/L (3.5-5.1); SODIUM 144 MMOL/L (136-145); TOTAL PROTEIN 8.1 G/DL (6.4-8.2)
[2017-05-26] MEDS: Meloxicam 15 MG TAB ORAL SCH (09:45)
[2017-05-26] MEDS: Irbesartan 150mg tablet ORAL SCH ×2 (09:45→17:49)
[2017-05-26] MEDS ORDERED: NS 500ML ONE (10:02)
[2017-05-26] MEDS ORDERED: TRESIBA FL100 UNIT/1 SQ (13:08)
[2017-05-26] MEDS ORDERED: NOVOLOG100 UNIT/3 SUBQ (13:12)
[2017-05-26] MEDS: Heparin 5000 units/ml inj SUBQ SCH ×2 (14:00→22:20)
[2017-05-26] MEDS ORDERED: Levemir Flexpen SUBQ ONE (15:00)
[2017-05-26 16:00] VITALS: BP 148/80
--- NOTE | 2017-05-26 17:38 | Consultation ---
History of Present Illness General Date patient seen: May 26, 2017 Chief Complaint: Altered Level of Consciousness Referring physician: Dr. Hardin Reason for Consultation: Abnormal breathing and alteration of mental status Present Illness HPI Patient is a 46 yo gentle lady with pmhx DM I GERD HTN CKD who presents to [facility] with complaint of confusion and irregular breathing. The patients family is by the bedside consisting of mother and cousins, who give a history in which their loved one the patient was observed progressively declining with respect to her mentation and breathing. The patient was brought to the hospital to examine her serious medical condition. History has been obtained by discussions with patients family members, the patient at this time appears very lethargic and disoriented, does not appear to know where he is. The patient is able to give a limited history in which she says she was struggling to operate the insulin pump she was given by her doctor, that she wasn't sure if the insulin was being given by the pump before and after meals. I was asked to evaluate the patient from a pulmonary point of view and internal medicine point of view. A chest radiograph has been requested to address her breathing complaint, however she does not appear to be in any respiratory distress and oxygen saturation is adequate in the high ninety percentile. Patient is being admitted with administration of IV fluids and insulin per sliding scale for hyperglycemia. Allergies: Coded Allergies: No Known Allergies (Unverified , 04/24/14) Medication History Scheduled Amlodipine Besylate (Norvasc), 10 MG ORAL DAILY Amoxicillin* (Amoxil*), 500 MG ORAL Q6HR, (Reported) Escitalopram Oxalate* (Lexapro*), 20 MG ORAL DAILY, (Reported) Hydrochlorothiazide* (Hydrochlorothiazide*), Unknown Dose ORAL DAILY, (Reported) Hydrochlorothiazide* (Hydrochlorothiazide*), 25 MG ORAL DAILY, (Reported) Insulin Aspart (Novolog Flexpen), 8 UNITS SUBQ NOVOTIAC Insulin Aspart (Novolog Flexpen), 3 UNITS SUBQ NOVOTIAC Insulin Aspart* (Novolog*), 0 SUBQ BEFORE MEALS, (Reported) Insulin Degludec (Tresiba Flextouch U-100), 15 UNIT SQ DAILY, (Reported) Meloxicam* (Meloxicam*), 15 MG PO DAILY, (Reported) Mirtazapine* (Mirtazapine*), 7.5 MG ORAL BEDTIME Pantoprazole* (Protonix*), 40 MG ORAL DAILY, (Reported) Pregabalin (Lyrica), 50 MG PO BID, (Reported) Valsartan (Diovan), 160 MG ORAL BID Scheduled PRN Clonidine HCl (Clonidine HCl), 0.1 MG ORAL Q4H PRN Hydrocodone Bit/Acetaminophen 5-325* ([place] 5-325 Tablet*), 1 TAB ORAL Q4H PRN for For Pain, (Reported) Ibuprofen* (Motrin*), 600 MG ORAL Q6H PRN for For Pain, (Reported) Ondansetron Odt* (Zofran Odt*), 4 MG ORAL Q6H PRN for Nausea & Vomiting Miscellaneous Medications Hydrocodone Bitartrate ([place] ER), Unknown Dose PO, (Reported) Potassium Chloride (Potassium Chloride), 10 MEQ PO, (Reported) [Insulin], (Reported) Patient History Healthcare decision maker Resuscitation status Full Code Advanced Directive on File No Past Medical/Surgical History Past Medical/Surgical History: (1) Major depression (2) GERD (gastroesophageal reflux disease) (3) HTN (hypertension) (4) Diabetes mellitus type 1, uncontrolled, insulin dependent (5) Hypertension (6) CKD (chronic kidney disease) (7) Uncontrolled diabetes mellitus (8) Non-compliance with treatment (9) Esophagitis (10) Constipation (11) Dehydration (12) Hyperkalemia (13) Anemia (14) Dysphagia (15) Diabetic ketoacidosis, type I (16) DKA (diabetic ketoacidoses) (17) Diarrhea (18) SOB (shortness of breath) (19) Gastritis (20) Hyperglycemia (21) Pancreatitis (22) Renal failure (23) Renal insufficiency (24) Encephalopathy (25) Hypophosphatemia (26) Esophageal ulcer (27) Hyperosmolar coma (28) Epigastric pain (29) Hypoalbuminemia (30) UTI (urinary tract infection) (31) Chest pain (32) Diabetic gastroparesis (33) Diabetic nephropathy (34) Britney esophagitis (35) Acidosis, metabolic (36) DKA (diabetic ketoacidosis) (37) Nausea & vomiting (38) Hypertensive emergency (39) Esophageal ulcer without bleeding (40) Diabetes type 1, uncontrolled (41) Vomiting (42) ARF (acute renal failure) (43) Oral candidiasis Review of Systems Constitutional: Reports: malaise, weakness Respiratory: Reports: shortness of breath Psychiatric: Reports: prior hx, depressed feelings, emotional problems Neurological: Reports: other - altered mental status Physical Exam General Appearance: WD/WN, lethargic, confused, mild distress Lines, tubes and drains: peripheral HEENT: normocephalic, atraumatic, anicteric, PERRL Neck: non-tender, normal alignment, supple, normal inspection Respiratory/Chest: chest wall non-tender, lungs clear, normal breath sounds, no respiratory distress, no accessory muscle use Breasts: no masses Cardiovascular/Chest: normal peripheral pulses, normal rate, regular rhythm Abdomen: normal bowel sounds, non tender, soft, no organomegaly, no mass Genitourinary/Rectal: normal genital exam, normal rectal exam Extremities: normal range of motion, non-tender, normal inspection, no calf tenderness Skin Exam: normal pigmentation, warm/dry 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, responsive, disoriented Last 24 Hour Vital Signs Date Time Temp Pulse Resp B/P (MAP) Pulse Ox O2 Delivery O2 Flow Rate FiO2 05/26/17 16:00 97.5 95 18 148/80 97 05/26/17 09:45 157/95 05/26/17 09:45 96 157/95 05/26/17 04:00 97.0 96 21 157/95 100 05/26/17 01:50 97.0 98 21 148/97 100 05/26/17 01:30 97.5 88 11 132/87 99 Room Air 05/26/17 00:56 97.8 88 11 133/87 99 Room Air 05/25/17 22:56 97.5 118 12 133/97 97 Room Air 05/25/17 22:52 97.5 94 12 133/97 97 Room Air Intake and Output 05/26/17 05/27/17 19:00 07:00 Intake Total 525 ml Balance 525 ml Intake IV Total 525 ml Laboratory Tests Test 05/25/17 23:20 05/26/17 00:23 05/26/17 06:40 White Blood Count 5.9 K/UL (4.8-10.8) 4.3 K/UL (4.8-10.8) L Red Blood Count 4.08 M/UL (4.20-5.40) L 3.81 M/UL (4.20-5.40) L Hemoglobin 12.7 G/DL (12.0-16.0) 12.0 G/DL (12.0-16.0) Hematocrit 41.0 % (37.0-47.0) 38.5 % (37.0-47.0) Mean Corpuscular Volume 100 FL (80-99) H 101 FL (80-99) H Mean Corpuscular Hemoglobin 31.1 PG (27.0-31.0) H 31.4 PG (27.0-31.0) H Mean Corpuscular Hemoglobin Concent 31.0 G/DL (32.0-36.0) L 31.1 G/DL (32.0-36.0) L Red Cell Distribution Width 15.4 % (11.6-14.8) H 15.4 % (11.6-14.8) H Platelet Count 292 K/UL (150-450) 296 K/UL (150-450) Mean Platelet Volume 8.0 FL (6.5-10.1) 7.8 FL (6.5-10.1) Neutrophils (%) (Auto) 43.3 % (45.0-75.0) L 78.4 % (45.0-75.0) H Lymphocytes (%) (Auto) 51.4 % (20.0-45.0) H 16.7 % (20.0-45.0) L Monocytes (%) (Auto) 2.2 % (1.0-10.0) 3.9 % (1.0-10.0) Eosinophils (%) (Auto) 2.1 % (0.0-3.0) 0.2 % (0.0-3.0) Basophils (%) (Auto) 0.9 % (0.0-2.0) 0.9 % (0.0-2.0) Sodium Level 147 MMOL/L (136-145) H 144 MMOL/L (136-145) Potassium Level 4.4 MMOL/L (3.5-5.1) 4.7 MMOL/L (3.5-5.1) Chloride Level 106 MMOL/L (98-107) 103 MMOL/L (98-107) Carbon Dioxide Level 34 MMOL/L (21-32) H 30 MMOL/L (21-32) Anion Gap 7 mmol/L (5-15) 11 mmol/L (5-15) Blood Urea Nitrogen 32 mg/dL (7-18) H 29 mg/dL (7-18) H Creatinine 1.1 MG/DL (0.55-1.30) 1.1 MG/DL (0.55-1.30) Estimat Glomerular Filtration Rate > 60 mL/min (>60) > 60 mL/min (>60) Glucose Level 117 MG/DL (74-106) H 429 MG/DL (74-106) #H Calcium Level 9.3 MG/DL (8.5-10.1) 9.3 MG/DL (8.5-10.1) Magnesium Level 2.2 MG/DL (1.8-2.4) Total Bilirubin 0.4 MG/DL (0.2-1.0) 0.5 MG/DL (0.2-1.0) Aspartate Amino Transf (AST/SGOT) 79 U/L (15-37) H 58 U/L (15-37) H Alanine Aminotransferase (ALT/SGPT) 58 U/L (12-78) 57 U/L (12-78) Alkaline Phosphatase 122 U/L (46-116) H 135 U/L (46-116) H Total Protein 8.3 G/DL (6.4-8.2) H 8.1 G/DL (6.4-8.2) Albumin 3.6 G/DL (3.4-5.0) 3.5 G/DL (3.4-5.0) Globulin 4.7 g/dL 4.6 g/dL Albumin/Globulin Ratio 0.8 (1.0-2.7) L 0.8 (1.0-2.7) L Human Chorionic Gonadotropin, Qual Negative Acetone Level Negative (NEGATIVE) Urine Color Pale yellow Urine Appearance Clear Urine pH 7 (4.5-8.0) Urine Specific [place] 1.015 (1.005-1.035) Urine Protein 3+ (NEGATIVE) H Urine Glucose (UA) 1+ (NEGATIVE) H Urine Ketones Negative (NEGATIVE) Urine Occult Blood 1+ (NEGATIVE) H Urine Nitrite Negative (NEGATIVE) Urine Bilirubin Negative (NEGATIVE) Urine Urobilinogen Normal MG/DL (0.0-1.0) Urine Leukocyte Esterase 1+ (NEGATIVE) H Urine RBC 2-4 /HPF (0 - 2) H Urine WBC 5-10 /HPF (0 - 2) H Urine Squamous Epithelial Cells Occasional /LPF Urine Bacteria Occasional /HPF (NONE) Phosphorus Level 3.7 MG/DL (2.5-4.9) Height (Feet): 5 Height (Inches): 2.00 Weight (Pounds): 122 Medications Current Medications Medications (Trade) Dose Ordered Sig/Lizbeth Route PRN Reason Start Time Stop Time Status Last Admin Dose Admin Acetaminophen/ Hydrocodone Bitart ([place] 5/325) 1 tab Q4H PRN ORAL PAIN 4-10 05/26/17 10:00 06/02/17 09:59 Amlodipine Besylate (Norvasc) 10 mg DAILY ORAL 05/26/17 09:00 06/25/17 08:59 05/26/17 09:45 Clonidine HCl (Catapres) 0.1 mg Q4H PRN ORAL For High Blood Pressure 05/26/17 03:30 06/25/17 03:29 Dextrose (Dextrose 50%) STAT PRN IV Hypoglycemia 05/26/17 03:30 06/25/17 03:29 Escitalopram Oxalate (Lexapro) 20 mg DAILY ORAL 05/26/17 09:00 06/25/17 08:59 05/26/17 09:45 Heparin Sodium (Porcine) (Heparin 5000 units/ml) 5,000 units EVERY 8 HOURS SUBQ 05/26/17 14:00 06/25/17 13:59 Hydrochlorothiazide (Hydrodiuril) 25 mg DAILY ORAL 05/26/17 09:00 06/25/17 08:59 Ibuprofen (Motrin) 600 mg Q6H PRN ORAL Mild Pain (Pain Scale 1-3) 05/26/17 09:30 06/25/17 09:29 Insulin Aspart (NovoLOG) BEFORE MEALS AND HS SUBQ 05/26/17 06:30 06/25/17 06:29 05/26/17 16:55 Irbesartan (Avapro) 150 mg BID ORAL 05/26/17 09:00 06/25/17 08:59 05/26/17 09:45 Meloxicam (Mobic) 15 mg DAILY ORAL 05/26/17 09:00 06/25/17 08:59 05/26/17 09:45 Mirtazapine (Remeron) 7.5 mg BEDTIME ORAL 05/26/17 21:00 06/25/17 20:59 Pantoprazole (Protonix) 40 mg DAILY ORAL 05/26/17 09:00 06/25/17 08:59 05/26/17 09:45 Sodium Chloride 1,000 ml @ 75 mls/hr [id number] IV 05/26/17 02:45 06/25/17 02:44 05/26/17 03:07 Assessment/Plan Status: stable, progressing Assessment/Plan Acute Hypoglycemia Altered mental status Diabetes mellitus type 1, poorly controlled, insulin dependent Possible defective insulin pump History of Major depression HTN CKD Plan IVF hydration and electrolyte replacement Insulin per sliding scale for hyperglycemia NPO Chest x ray ordered for tomorow Supplemental oxygen as needed for SOB VANESSA SAGASTUME May 26, 2017 17:38
--- NOTE | 2017-05-26 18:16 | History & Physical ---
History and Physical History & Physicial Aries Hardin MD May 26, 2017 18:16
[2017-05-26 20:00] VITALS: BP 100/54
[2017-05-26] MEDS: Norco 5mg/325mg tab ORAL PRN (20:05)
--- NOTE | 2017-05-26 21:46 | History and Physical Report ---
DATE OF ADMISSION: 05/25/2017 CHIEF COMPLAINT: Altered mental status and loss of consciousness. HISTORY OF PRESENT ILLNESS: This is a 46-year-old very unfortunate female with past medical history significant for diabetes type 1, hypertension, GERD, chronic kidney disease who presented to the hospital after she was found to be in altered mental status. Per family members, the patient's blood glucose level was checked and was noted to be in 20 to 30. The patient subsequently received glucose en route to the hospital and the patient's status improved, became more alert. Upon arrival to the ER, the patient denies any fever or chills. Denies chest pain, nausea or vomiting. Denies any dysuria or frequency. She said that she did not eat enough food and she gave herself her regular insulin dosage. She used to be on her insulin pump, however, she is not compliant with that. PAST MEDICAL HISTORY AND PAST SURGICAL HISTORY: As above. History of diabetes type 1, hypertension, chronic kidney disease, history of GERD. MEDICATIONS: Medications at home are significant for Norvasc 10 mg daily, clonidine 0.1 mg q.4 h. p.r.n. for systolic greater than 160, Lexapro 20 mg daily, hydrochlorothiazide 25 mg p.o. daily, [place] 5/325 mg q.6 h. p.r.n., ibuprofen 600 mg q.6 h. p.r.n., insulin Aspart 8 units subcutaneously before each meal. The patient on , meloxicam 50 mg daily, mirtazapine 7.5 mg daily, Zofran ODT 4 mg q.6 h. p.r.n., Protonix 40 mg daily, potassium chloride 10 mEq daily, Lyrica 50 mg twice a day, and Diovan 160 mg twice a day. ALLERGIES: No known drug allergies. SOCIAL HISTORY: Denies any smoking, alcohol, or drugs. FAMILY HISTORY: Noncontributory. REVIEW OF SYSTEMS: Mostly as above. Denies any dysuria, frequency, or hematuria. Denies any hemoptysis. Just complaining of weakness. Positive loss of consciousness. Denies any suicidal or homicidal ideation. Denies any double vision. Denies any fall or head trauma. PHYSICAL EXAMINATION: VITAL SIGNS: Vital signs on admission are significant for temperature 97.5 degrees, pulse 94, respirations 12, and blood pressure 132/97. GENERAL: The patient awake, responsive, in no acute distress. HEAD AND NECK: Pupils are reactive to light. Extraocular movements are intact. Neck was supple. No JVD. LUNGS: Good air entry. No wheezing or rales. HEART: Reveals S1 and S2. Regular rhythm. No gallops. ABDOMEN: Soft, nondistended, and nontender. Positive bowel sounds. EXTREMITIES: No cyanosis, clubbing, or edema. NEUROLOGIC: Cranial nerves II through XII are grossly intact. Motor is 5/5 in all extremities. Gait is intact. LABORATORY DATA: On admission from the ER, WBC of 5.9, hemoglobin 12, hematocrit of 41, platelet 292. The patient's beta HCG is negative. Sodium 147, potassium 4.4, chloride 106, bicarbonate 34, BUN 32, and creatinine 1.1, GFR greater than 60, glucose 117, calcium 9.3. AST 79, and ALT of 58. Acetone level was negative. Urinalysis, +3 protein, +1 glucose, negative ketones, negative nitrites, +1 leukocyte esterase, 5-10 WBCs. ASSESSMENT: 1. Altered mental status, most likely secondary to toxic metabolic encephalopathy as a result of the hypoglycemia. 2. Diabetic type 1. 3. Hypertension. 4. Chronic kidney disease. 5. Gastroesophageal reflux disease. PLAN: Admit the patient to medical/surgical. We will follow up laboratories. IV hydration. Accu-Chek with sliding scale. Discussed case with Dr. Judd Hayes from Endocrine, Dr. Chapin Paredes for Pulmonary Critical Care. If the patient's status improve, consider discharge home. Advised the patient to follow up in the office in one week. DVT prophylaxis. Heparin subcutaneous. Code Status is Full Code. Aries Hardin M.D. DR: Wolf JOB#: [id number] CC:
[2017-05-27 04:00] VITALS: BP 155/85
[2017-05-27] MEDS: Heparin 5000 units/ml inj SUBQ SCH ×3 (06:00→21:18)
[2017-05-27] MEDS: NovoLOG Insulin Flexpen SUBQ SCH ×7 (06:30→21:17)
[2017-05-27] MEDS: Norco 5mg/325mg tab ORAL PRN ×2 (06:38→12:45)
[2017-05-27 07:09] LABS: ANION GAP 8 mmol/L (5-15); CALCIUM 8.7 MG/DL (8.5-10.1); CARBON DIOXIDE 29 MMOL/L (21-32); CHLORIDE 104 MMOL/L (98-107); CREATININE 1.1 MG/DL (0.55-1.30); GLOMERULAR FILTRATION RATE > 60 mL/min (>60); POTASSIUM 4.6 MMOL/L (3.5-5.1); SODIUM 140 MMOL/L (136-145)
[2017-05-27 08:00] VITALS: BP 151/86
[2017-05-27] MEDS: Irbesartan 150mg tablet ORAL SCH ×2 (09:01→18:49)
[2017-05-27] MEDS: Lyrica 50mg cap ORAL SCH ×2 (09:02→18:50)
[2017-05-27] MEDS: Meloxicam 15 MG TAB ORAL SCH (09:02)
[2017-05-27] MEDS: Levemir Flexpen SUBQ SCH (09:35)
--- NOTE | 2017-05-27 11:31 | Internal Med Progress Note ---
Subjective Date of Service: May 27, 2017 Physician Name Anastacio Jacobsen Attending Physician Aries Hardin MD Current Medications Medications (Trade) Dose Ordered Sig/Lizbeth Route PRN Reason Start Time Stop Time Status Last Admin Dose Admin Acetaminophen/ Hydrocodone Bitart ([place] 5/325) 1 tab Q4H PRN ORAL PAIN 4-10 05/26/17 10:00 06/02/17 09:59 05/27/17 06:38 Amlodipine Besylate (Norvasc) 10 mg DAILY ORAL 05/26/17 09:00 06/25/17 08:59 05/27/17 09:05 Clonidine HCl (Catapres) 0.1 mg Q4H PRN ORAL For High Blood Pressure 05/26/17 03:30 06/25/17 03:29 Dextrose (Dextrose 50%) STAT PRN IV Hypoglycemia 05/26/17 03:30 06/25/17 03:29 05/26/17 21:44 Escitalopram Oxalate (Lexapro) 20 mg DAILY ORAL 05/26/17 09:00 06/25/17 08:59 05/27/17 09:02 Heparin Sodium (Porcine) (Heparin 5000 units/ml) 5,000 units EVERY 8 HOURS SUBQ 05/26/17 14:00 06/25/17 13:59 05/26/17 22:20 Hydrochlorothiazide (Hydrodiuril) 25 mg DAILY ORAL 05/26/17 09:00 06/25/17 08:59 05/27/17 09:08 Ibuprofen (Motrin) 600 mg Q6H PRN ORAL Mild Pain (Pain Scale 1-3) 05/26/17 09:30 06/25/17 09:29 Insulin Aspart (NovoLOG) BEFORE MEALS AND HS SUBQ 05/26/17 06:30 06/25/17 06:29 05/26/17 16:55 Insulin Aspart (NovoLOG) 4 units NOVOTIAC SUBQ 05/27/17 06:30 06/26/17 06:29 Insulin Detemir (Levemir) 15 units Q24H SUBQ 05/27/17 09:00 06/26/17 08:59 05/27/17 09:35 Irbesartan (Avapro) 150 mg BID ORAL 05/26/17 09:00 06/25/17 08:59 05/27/17 09:01 Meloxicam (Mobic) 15 mg DAILY ORAL 05/26/17 09:00 06/25/17 08:59 05/27/17 09:02 Mirtazapine (Remeron) 7.5 mg BEDTIME ORAL 05/26/17 21:00 06/25/17 20:59 05/26/17 22:20 Pantoprazole (Protonix) 40 mg DAILY ORAL 05/26/17 09:00 06/25/17 08:59 05/27/17 09:05 Pregabalin (Lyrica) 50 mg BID ORAL 05/27/17 09:00 06/26/17 08:59 05/27/17 09:02 Allergies: Coded Allergies: No Known Allergies (Unverified , 04/24/14) ROS Limited/Unobtainable: No Constitutional: Reports: no symptoms HEENT: Reports: no symptoms Cardiovascular: Reports: no symptoms Respiratory: Reports: no symptoms Gastrointestinal/Abdominal: Reports: no symptoms Genitourinary: Reports: no symptoms Neurologic/Psychiatric: Reports: no symptoms Subjective 46 YO F with diabetes type I, admitted with hypoglycemia and altered mental status. Cover for Int Med-Dr Hardin Objective Last Vital Signs Date Time Temp Pulse Resp B/P (MAP) Pulse Ox O2 Delivery O2 Flow Rate FiO2 05/27/17 09:05 81 151/86 05/27/17 08:00 97.9 20 98 05/27/17 04:00 Room Air Laboratory Tests Test 05/27/17 06:10 Sodium Level 140 MMOL/L (136-145) Potassium Level 4.6 MMOL/L (3.5-5.1) Chloride Level 104 MMOL/L (98-107) Carbon Dioxide Level 29 MMOL/L (21-32) Anion Gap 8 mmol/L (5-15) Blood Urea Nitrogen 38 mg/dL (7-18) H Creatinine 1.1 MG/DL (0.55-1.30) Estimat Glomerular Filtration Rate > 60 mL/min (>60) Glucose Level 119 MG/DL (74-106) #H Calcium Level 8.7 MG/DL (8.5-10.1) Intake and Output 05/27/17 05/28/17 19:00 07:00 # Bowel Movements 1 Objective PHYSICAL EXAMINATION: GENERAL: The patient awake, responsive, in no acute distress. HEAD AND NECK: Pupils are reactive to light. Extraocular movements are intact. Neck was supple. No JVD. LUNGS: Good air entry. No wheezing or rales. HEART: Reveals S1 and S2. Regular rhythm. No gallops. ABDOMEN: Soft, nondistended, and nontender. Positive bowel sounds. EXTREMITIES: No cyanosis, clubbing, or edema. NEUROLOGIC: Cranial nerves II through XII are grossly intact. Motor is 5/5 in all extremities. Gait is intact. Assessment/Plan Problem List: (1) Diabetes mellitus type 1, uncontrolled, insulin dependent Assessment & Plan: Labile. Continue levemir and novolog sliding scale. See endocrinology note. (2) Hypoglycemia (3) HTN (hypertension) Assessment & Plan: Continue norvasc (4) ARF (acute renal failure) (5) GERD (gastroesophageal reflux disease) (6) Major depression Assessment & Plan: Continue remeron and lexapro. Status: not improved ANASTACIO JACOBSEN May 27, 2017 11:31
--- NOTE | 2017-05-27 11:43 | Diagnostic Imaging Report ---
Indication: Chest pain Technique: One view of the chest Comparison: 12/07/2016 Findings: Lungs and pleural spaces are clear. Heart size is borderline enlarged. Previously demonstrated interstitial congestive changes are no longer evident. Impression: No acute process Borderline cardiomegaly
[2017-05-27 12:00] VITALS: BP 150/78
[2017-05-27 16:00] VITALS: BP 122/74
--- NOTE | 2017-05-27 16:14 | Pulmonology Progress Note ---
Assessment/Plan Problems: (1) Hypoglycemia (2) Diabetes mellitus type 1, uncontrolled, insulin dependent (3) Altered level of consciousness (4) Major depression Assessment/Plan improving BS controlled dc planning in process Subjective ROS Limited/Unobtainable: No Constitutional: Reports: no symptoms HEENT: Repors: no symptoms Respiratory: Reports: no symptoms Allergies: Coded Allergies: No Known Allergies (Unverified , 04/24/14) Objective Last 24 Hour Vital Signs Date Time Temp Pulse Resp B/P (MAP) Pulse Ox O2 Delivery O2 Flow Rate FiO2 05/27/17 13:45 98.1 05/27/17 12:00 98.1 87 20 150/78 97 05/27/17 09:05 81 151/86 05/27/17 09:01 151/86 05/27/17 08:00 97.9 81 20 151/86 98 05/27/17 04:00 98.1 84 18 155/85 98 05/27/17 04:00 Room Air 05/27/17 00:00 Room Air 05/26/17 20:00 Room Air 05/26/17 20:00 98.1 86 18 100/54 97 05/26/17 17:49 148/80 Intake and Output 05/27/17 05/28/17 19:00 07:00 # Bowel Movements 1 General Appearance: WD/WN HEENT: normocephalic, atraumatic Respiratory/Chest: chest wall non-tender, lungs clear Breasts: no masses Cardiovascular: normal rate Abdomen: normal bowel sounds, soft, non tender Genitourinary: normal external genitalia Extremities: no cyanosis Laboratory Tests 05/27/17 06:10: Sodium Level 140, Potassium Level 4.6, Chloride Level 104, Carbon Dioxide Level 29, Anion Gap 8, Blood Urea Nitrogen 38H, Creatinine 1.1, Estimat Glomerular Filtration Rate > 60, Glucose Level 119#H, Calcium Level 8.7 Current Medications Medications (Trade) Dose Ordered Sig/Lizbeth Route PRN Reason Start Time Stop Time Status Last Admin Dose Admin Acetaminophen/ Hydrocodone Bitart ([place] 5/325) 1 tab Q4H PRN ORAL PAIN 4-10 05/26/17 10:00 06/02/17 09:59 05/27/17 12:45 Amlodipine Besylate (Norvasc) 10 mg DAILY ORAL 05/26/17 09:00 06/25/17 08:59 05/27/17 09:05 Clonidine HCl (Catapres) 0.1 mg Q4H PRN ORAL For High Blood Pressure 05/26/17 03:30 06/25/17 03:29 Dextrose (Dextrose 50%) STAT PRN IV Hypoglycemia 05/27/17 13:30 06/26/17 13:29 Escitalopram Oxalate (Lexapro) 20 mg DAILY ORAL 05/26/17 09:00 06/25/17 08:59 05/27/17 09:02 Heparin Sodium (Porcine) (Heparin 5000 units/ml) 5,000 units EVERY 8 HOURS SUBQ 05/26/17 14:00 06/25/17 13:59 05/26/17 22:20 Hydrochlorothiazide (Hydrodiuril) 25 mg DAILY ORAL 05/26/17 09:00 06/25/17 08:59 05/27/17 09:08 Ibuprofen (Motrin) 600 mg Q6H PRN ORAL Mild Pain (Pain Scale 1-3) 05/26/17 09:30 06/25/17 09:29 Insulin Aspart (NovoLOG) BEFORE MEALS AND HS SUBQ 05/26/17 06:30 06/25/17 06:29 05/27/17 12:44 Insulin Aspart (NovoLOG) DAILY SUBQ 05/28/17 09:00 06/27/17 08:59 Insulin Aspart (NovoLOG) 4 units NOVOTIAC SUBQ 05/27/17 06:30 06/26/17 06:29 05/27/17 12:43 Insulin Detemir (Levemir) 15 units Q24H SUBQ 05/27/17 09:00 06/26/17 08:59 05/27/17 09:35 Irbesartan (Avapro) 150 mg BID ORAL 05/26/17 09:00 06/25/17 08:59 05/27/17 09:01 Meloxicam (Mobic) 15 mg DAILY ORAL 05/26/17 09:00 06/25/17 08:59 05/27/17 09:02 Mirtazapine (Remeron) 7.5 mg BEDTIME ORAL 05/26/17 21:00 06/25/17 20:59 05/26/17 22:20 Pantoprazole (Protonix) 40 mg DAILY ORAL 05/26/17 09:00 06/25/17 08:59 05/27/17 09:05 Pregabalin (Lyrica) 50 mg BID ORAL 05/27/17 09:00 06/26/17 08:59 05/27/17 09:02 VANESSA SAGASTUME May 27, 2017 16:14
[2017-05-27] MEDS ORDERED: NovoLOG Insulin Flexpen SUBQ SCH (16:45)
[2017-05-27] MEDS ORDERED: Sodium Chloride 500ML 500 ML IV ONE (17:10)
[2017-05-27] MEDS ORDERED: Sodium Chloride 500ML 550 ML IV ONE (17:30)
[2017-05-27] MEDS: Sodium Chloride 500ML 1,000 ML IV SCH (18:51)
[2017-05-27 20:00] VITALS: BP 105/64
[2017-05-28] VITALS: BP 120/68
[2017-05-28 04:00] VITALS: BP 125/60
[2017-05-28] MEDS: NovoLOG Insulin Flexpen SUBQ SCH ×7 (06:01→20:22)
[2017-05-28] MEDS: Heparin 5000 units/ml inj SUBQ SCH ×3 (06:02→20:24)
--- NOTE | 2017-05-28 06:12 | General Progress Note ---
Assessment/Plan Problem List: (1) Non-compliance with treatment ICD Codes: Z91.19 - Non-compliance with treatment SNOMED: 0194475 (2) Uncontrolled diabetes mellitus ICD Codes: E11.65 - Type 2 diabetes mellitus with hyperglycemia SNOMED: 50285851, 593572184 (3) CKD (chronic kidney disease) ICD Codes: N18.9 - Chronic kidney disease, unspecified SNOMED: 266095377 (4) Hypertension ICD Codes: I10 - Essential (primary) hypertension SNOMED: 82539601 Assessment/Plan glucose very labile - Levermir 15 units qam - Novolog 4 units ac tid + SSI - initiate insulin pump therapy as OP as planned - [employer] rep (Ramila) has left message for her in order to set up a pump training date Subjective Allergies: Coded Allergies: No Known Allergies (Unverified , 04/24/14) All Systems: reviewed and negative except above Subjective admitted with hypoglycemia hx of brittle T1DM Objective Last 24 Hour Vital Signs Date Time Temp Pulse Resp B/P (MAP) Pulse Ox O2 Delivery O2 Flow Rate FiO2 05/28/17 04:00 96 Room Air 05/28/17 04:00 97.9 78 18 125/60 05/28/17 00:00 97.9 75 19 120/68 97 05/28/17 00:00 97 Room Air 05/27/17 20:00 96 Room Air 05/27/17 20:00 97.7 79 18 105/64 96 05/27/17 18:49 122/74 05/27/17 16:00 97.3 86 20 122/74 96 05/27/17 13:45 98.1 05/27/17 12:00 98.1 87 20 150/78 97 05/27/17 09:05 81 151/86 05/27/17 09:01 151/86 05/27/17 08:00 97.9 81 20 151/86 98 Laboratory Tests 05/27/17 06:10: Sodium Level 140, Potassium Level 4.6, Chloride Level 104, Carbon Dioxide Level 29, Anion Gap 8, Blood Urea Nitrogen 38H, Creatinine 1.1, Estimat Glomerular Filtration Rate > 60, Glucose Level 119#H, Calcium Level 8.7 05/27/17 16:35: Glucose Level 723#*H Height (Feet): 5 Height (Inches): 2.00 Weight (Pounds): 122 General Appearance: no apparent distress Neck: normal alignment Cardiovascular: normal rate Respiratory/Chest: lungs clear Abdomen: normal bowel sounds Objective Current Medications Medications (Trade) Dose Ordered Sig/Lzibeth Route PRN Reason Start Time Stop Time Status Last Admin Dose Admin Acetaminophen/ Hydrocodone Bitart ([place] 5/325) 1 tab Q4H PRN ORAL PAIN 4-10 05/26/17 10:00 06/02/17 09:59 05/27/17 12:45 Amlodipine Besylate (Norvasc) 10 mg DAILY ORAL 05/26/17 09:00 06/25/17 08:59 05/27/17 09:05 Clonidine HCl (Catapres) 0.1 mg Q4H PRN ORAL For High Blood Pressure 05/26/17 03:30 06/25/17 03:29 Dextrose (Dextrose 50%) STAT PRN IV Hypoglycemia 05/27/17 13:30 06/26/17 13:29 05/27/17 23:28 Escitalopram Oxalate (Lexapro) 20 mg DAILY ORAL 05/26/17 09:00 06/25/17 08:59 05/27/17 09:02 Heparin Sodium (Porcine) (Heparin 5000 units/ml) 5,000 units EVERY 8 HOURS SUBQ 05/26/17 14:00 06/25/17 13:59 05/28/17 06:02 Hydrochlorothiazide (Hydrodiuril) 25 mg DAILY ORAL 05/26/17 09:00 06/25/17 08:59 05/27/17 09:08 Ibuprofen (Motrin) 600 mg Q6H PRN ORAL Mild Pain (Pain Scale 1-3) 05/26/17 09:30 06/25/17 09:29 Insulin Aspart (NovoLOG) AFTERBREAKFAST SUBQ 05/28/17 10:00 06/27/17 09:59 Insulin Aspart (NovoLOG) BEFORE MEALS AND HS SUBQ 05/26/17 06:30 06/25/17 06:29 05/28/17 06:01 Insulin Aspart (NovoLOG) 4 units NOVOTIAC SUBQ 05/27/17 06:30 06/26/17 06:29 05/28/17 06:01 Insulin Detemir (Levemir) 15 units Q24H SUBQ 05/27/17 09:00 06/26/17 08:59 05/27/17 09:35 Irbesartan (Avapro) 150 mg BID ORAL 05/26/17 09:00 06/25/17 08:59 05/27/17 18:49 Meloxicam (Mobic) 15 mg DAILY ORAL 05/26/17 09:00 06/25/17 08:59 05/27/17 09:02 Mirtazapine (Remeron) 7.5 mg BEDTIME ORAL 05/26/17 21:00 06/25/17 20:59 05/27/17 21:14 Pantoprazole (Protonix) 40 mg DAILY ORAL 05/26/17 09:00 06/25/17 08:59 05/27/17 09:05 Pregabalin (Lyrica) 50 mg BID ORAL 05/27/17 09:00 06/26/17 08:59 05/27/17 18:50 Sodium Chloride 1,000 ml @ 75 mls/hr [id number] IV 05/27/17 18:00 06/26/17 17:59 05/27/17 18:51 Item Value Date Time Bedside Blood Glucose 426 mg/dl H 05/28/17 0601 Bedside Blood Glucose 20 mg/dl L 05/27/17 2328 Bedside Blood Glucose 245 mg/dl H 05/27/17 2145 Bedside Blood Glucose 430 mg/dl H 05/27/17 1830 Bedside Blood Glucose 499 mg/dl H 05/27/17 1244 IVY SULLIVAN May 28, 2017 06:12
[2017-05-28 06:44] LABS: EOSINOPHILS % (AUTO) 1.3 % (0.0-3.0); LYMPHOCYTES % (AUTO) 37.7 % (20.0-45.0); MEAN CORPUSCULAR HEMOGLOBIN 32.2 PG (27.0-31.0); MEAN CORPUSCULAR HGB CONC 31.7 G/DL (32.0-36.0); MEAN CORPUSCULAR VOLUME 102 FL (80-99); MEAN PLATELET VOLUME 8.5 FL (6.5-10.1); MONOCYTES % (AUTO) 3.9 % (1.0-10.0); PLATELET COUNT 210 K/UL (150-450); RED BLOOD COUNT 2.96 M/UL (4.20-5.40); RED CELL DISTRIBUTION WIDTH 15.2 % (11.6-14.8); WHITE BLOOD COUNT 4.1 K/UL (4.8-10.8)
[2017-05-28 07:37] LABS: ALANINE AMINOTRANSFERASE 53 U/L (12-78); ALBUMIN/GLOBULIN RATIO 0.8 (1.0-2.7); ANION GAP 8 mmol/L (5-15); ASPARTATE AMINO TRANSFERASE 47 U/L (15-37); CARBON DIOXIDE 27 MMOL/L (21-32); CHLORIDE 102 MMOL/L (98-107); CREATININE 1.4 MG/DL (0.55-1.30); GLOMERULAR FILTRATION RATE 49.3 mL/min (>60); POTASSIUM 5.4 MMOL/L (3.5-5.1); SODIUM 137 MMOL/L (136-145); TOTAL PROTEIN 6.5 G/DL (6.4-8.2)
[2017-05-28 07:38] LABS: MAGNESIUM 2.2 MG/DL (1.8-2.4); PHOSPHORUS 4.3 MG/DL (2.5-4.9)
[2017-05-28 08:00] VITALS: BP 101/52
[2017-05-28 08:18] LABS: CALCIUM 8.5 MG/DL (8.5-10.1)
[2017-05-28] MEDS: Sodium Chloride 500ML 1,000 ML IV SCH ×2 (08:47→20:40)
[2017-05-28] MEDS: Lyrica 50mg cap ORAL SCH ×2 (08:51→17:28)
[2017-05-28] MEDS: Meloxicam 15 MG TAB ORAL SCH (08:52)
[2017-05-28] MEDS: Irbesartan 150mg tablet ORAL SCH ×2 (08:53→17:28)
[2017-05-28] MEDS: Levemir Flexpen SUBQ SCH (08:57)
[2017-05-28] MEDS ORDERED: NovoLOG Insulin Flexpen SUBQ SCH ×2 (09:00→10:00)
[2017-05-28 12:00] VITALS: BP 140/80
[2017-05-28] MEDS: Norco 5mg/325mg tab ORAL PRN ×2 (12:34→20:22)
[2017-05-28] MEDS ORDERED: Sodium Polystyrene Sulfonate 15gm Powder ORAL ONE (14:30)
[2017-05-28 16:00] VITALS: BP 103/68
--- NOTE | 2017-05-28 16:40 | Pulmonology Progress Note ---
Assessment/Plan Problems: (1) Hypoglycemia (2) Diabetes mellitus type 1, uncontrolled, insulin dependent (3) Altered level of consciousness (4) Major depression Assessment/Plan hem lower repeat h/h in am BS very fluctuating - Levermir 15 units qam - Novolog 4 units ac tid + SSI Subjective ROS Limited/Unobtainable: No Constitutional: Reports: no symptoms HEENT: Repors: no symptoms Respiratory: Reports: no symptoms Cardiovascular: Reports: no symptoms Allergies: Coded Allergies: No Known Allergies (Unverified , 04/24/14) Objective Last 24 Hour Vital Signs Date Time Temp Pulse Resp B/P (MAP) Pulse Ox O2 Delivery O2 Flow Rate FiO2 05/28/17 16:00 97.7 71 20 103/68 97 05/28/17 12:00 97.3 80 20 140/80 97 05/28/17 08:53 101/52 05/28/17 08:48 Room Air 05/28/17 08:47 83 101/52 05/28/17 08:00 98.0 83 20 101/52 96 05/28/17 04:00 96 Room Air 05/28/17 04:00 97.9 78 18 125/60 05/28/17 00:00 97.9 75 19 120/68 97 05/28/17 00:00 97 Room Air 05/27/17 20:00 96 Room Air 05/27/17 20:00 97.7 79 18 105/64 96 05/27/17 18:49 122/74 Intake and Output 05/28/17 05/29/17 19:00 07:00 Intake Total 300 ml Balance 300 ml IV Total 300 ml General Appearance: WD/WN HEENT: normocephalic, atraumatic Respiratory/Chest: chest wall non-tender, lungs clear, normal breath sounds Breasts: no masses Cardiovascular: normal peripheral pulses Abdomen: normal bowel sounds, soft, non tender Genitourinary: normal external genitalia Extremities: no cyanosis Skin: no rash 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, no motor/sensory deficits Lymphatic: no neck adenopathy Microbiology Date/Time Source Procedure Growth Status 05/26/17 00:20 Nasal Nares MRSA Culture - Final Staphylococcus Aureus - Mrsa Complete Laboratory Tests 05/28/17 04:50: White Blood Count 4.1L, Red Blood Count 2.96L, Hemoglobin 9.5L, Hematocrit 30.1L , Mean Corpuscular Volume 102H, Mean Corpuscular Hemoglobin 32.2H, Mean Corpuscular Hemoglobin Concent 31.7L, Red Cell Distribution Width 15.2H, Platelet Count 210, Mean Platelet Volume 8.5, Neutrophils (%) (Auto) 56.0, Lymphocytes (%) (Auto) 37.7, Monocytes (%) (Auto) 3.9, Eosinophils (%) (Auto) 1.3, Basophils (%) (Auto) 1.0, Sodium Level 137, Potassium Level 5.4H, Chloride Level 102, Carbon Dioxide Level 27, Anion Gap 8, Blood Urea Nitrogen 47H, Creatinine 1.4H, Estimat Glomerular Filtration Rate 49.3, Glucose Level 473#H, Calcium Level 8.5, Phosphorus Level 4.3, Magnesium Level 2.2, Total Bilirubin 0.5, Aspartate Amino Transf (AST/SGOT) 47H, Alanine Aminotransferase (ALT/SGPT) 53, Alkaline Phosphatase 102, Total Protein 6.5, Albumin 2.9L, Globulin 3.6, Albumin/Globulin Ratio 0.8L Current Medications Medications (Trade) Dose Ordered Sig/Lizbeth Route PRN Reason Start Time Stop Time Status Last Admin Dose Admin Acetaminophen/ Hydrocodone Bitart ([place] 5/325) 1 tab Q4H PRN ORAL PAIN 4-10 05/26/17 10:00 06/02/17 09:59 05/28/17 12:34 Amlodipine Besylate (Norvasc) 10 mg DAILY ORAL 05/29/17 09:00 06/25/17 08:59 Clonidine HCl (Catapres) 0.1 mg Q4H PRN ORAL For High Blood Pressure 05/26/17 03:30 06/25/17 03:29 Dextrose (Dextrose 50%) STAT PRN IV Hypoglycemia 05/27/17 13:30 06/26/17 13:29 05/27/17 23:28 Escitalopram Oxalate (Lexapro) 20 mg DAILY ORAL 05/26/17 09:00 06/25/17 08:59 05/28/17 08:52 Heparin Sodium (Porcine) (Heparin 5000 units/ml) 5,000 units EVERY 8 HOURS SUBQ 05/26/17 14:00 06/25/17 13:59 05/28/17 14:38 Hydrochlorothiazide (Hydrodiuril) 25 mg DAILY ORAL 05/26/17 09:00 06/25/17 08:59 05/27/17 09:08 Ibuprofen (Motrin) 600 mg Q6H PRN ORAL Mild Pain (Pain Scale 1-3) 05/26/17 09:30 06/25/17 09:29 Insulin Aspart (NovoLOG) AFTERBREAKFAST SUBQ 05/28/17 10:00 06/27/17 09:59 Insulin Aspart (NovoLOG) BEFORE MEALS AND HS SUBQ 05/26/17 06:30 06/25/17 06:29 05/28/17 06:01 Insulin Aspart (NovoLOG) 4 units NOVOTIAC SUBQ 05/27/17 06:30 06/26/17 06:29 05/28/17 12:38 Insulin Detemir (Levemir) 15 units Q24H SUBQ 05/27/17 09:00 06/26/17 08:59 05/28/17 08:57 Irbesartan (Avapro) 150 mg BID ORAL 05/26/17 09:00 06/25/17 08:59 05/28/17 08:53 Meloxicam (Mobic) 15 mg DAILY ORAL 05/26/17 09:00 06/25/17 08:59 05/28/17 08:52 Mirtazapine (Remeron) 7.5 mg BEDTIME ORAL 05/26/17 21:00 06/25/17 20:59 05/27/17 21:14 Pantoprazole (Protonix) 40 mg DAILY ORAL 05/26/17 09:00 06/25/17 08:59 05/28/17 08:51 Pregabalin (Lyrica) 50 mg BID ORAL 05/27/17 09:00 06/26/17 08:59 05/28/17 08:51 Sodium Chloride 1,000 ml @ 75 mls/hr [id number] IV 05/27/17 18:00 06/26/17 17:59 05/28/17 08:47 VANESSA SAGASTUME May 28, 2017 16:40
--- NOTE | 2017-05-28 18:41 | Internal Med Progress Note ---
Subjective Date of Service: May 28, 2017 Physician Name Christos Jacobsen Attending Physician Aries Hardin MD Current Medications Medications (Trade) Dose Ordered Sig/Lizbeth Route PRN Reason Start Time Stop Time Status Last Admin Dose Admin Acetaminophen/ Hydrocodone Bitart ([place] 5/325) 1 tab Q4H PRN ORAL PAIN 4-10 05/26/17 10:00 06/02/17 09:59 05/28/17 12:34 Amlodipine Besylate (Norvasc) 10 mg DAILY ORAL 05/29/17 09:00 06/25/17 08:59 Clonidine HCl (Catapres) 0.1 mg Q4H PRN ORAL For High Blood Pressure 05/26/17 03:30 06/25/17 03:29 Dextrose (Dextrose 50%) STAT PRN IV Hypoglycemia 05/27/17 13:30 06/26/17 13:29 05/27/17 23:28 Escitalopram Oxalate (Lexapro) 20 mg DAILY ORAL 05/26/17 09:00 06/25/17 08:59 05/28/17 08:52 Heparin Sodium (Porcine) (Heparin 5000 units/ml) 5,000 units EVERY 8 HOURS SUBQ 05/26/17 14:00 06/25/17 13:59 05/28/17 14:38 Hydrochlorothiazide (Hydrodiuril) 25 mg DAILY ORAL 05/26/17 09:00 06/25/17 08:59 05/27/17 09:08 Ibuprofen (Motrin) 600 mg Q6H PRN ORAL Mild Pain (Pain Scale 1-3) 05/26/17 09:30 06/25/17 09:29 Insulin Aspart (NovoLOG) AFTERBREAKFAST SUBQ 05/28/17 10:00 06/27/17 09:59 Insulin Aspart (NovoLOG) BEFORE MEALS AND HS SUBQ 05/26/17 06:30 06/25/17 06:29 05/28/17 06:01 Insulin Aspart (NovoLOG) 4 units NOVOTIAC SUBQ 05/27/17 06:30 06/26/17 06:29 05/28/17 12:38 Insulin Detemir (Levemir) 15 units Q24H SUBQ 05/27/17 09:00 06/26/17 08:59 05/28/17 08:57 Irbesartan (Avapro) 150 mg BID ORAL 05/26/17 09:00 06/25/17 08:59 05/28/17 17:28 Meloxicam (Mobic) 15 mg DAILY ORAL 05/26/17 09:00 06/25/17 08:59 05/28/17 08:52 Mirtazapine (Remeron) 7.5 mg BEDTIME ORAL 05/26/17 21:00 06/25/17 20:59 05/27/17 21:14 Pantoprazole (Protonix) 40 mg DAILY ORAL 05/26/17 09:00 06/25/17 08:59 05/28/17 08:51 Pregabalin (Lyrica) 50 mg BID ORAL 05/27/17 09:00 06/26/17 08:59 05/28/17 17:28 Sodium Chloride 1,000 ml @ 75 mls/hr [id number] IV 05/27/17 18:00 06/26/17 17:59 05/28/17 08:47 Allergies: Coded Allergies: No Known Allergies (Unverified , 04/24/14) ROS Limited/Unobtainable: No Constitutional: Reports: no symptoms HEENT: Reports: no symptoms Cardiovascular: Reports: no symptoms Respiratory: Reports: no symptoms Gastrointestinal/Abdominal: Reports: no symptoms Genitourinary: Reports: no symptoms Neurologic/Psychiatric: Reports: no symptoms Subjective 46 YO F with diabetes type I, admitted with hypoglycemia and altered mental status. Cover for Int Alejo-Dr Hardin Objective Last Vital Signs Date Time Temp Pulse Resp B/P (MAP) Pulse Ox O2 Delivery O2 Flow Rate FiO2 05/28/17 17:28 103/68 05/28/17 16:00 97.7 71 20 97 05/28/17 08:48 Room Air Laboratory Tests Test 05/28/17 04:50 White Blood Count 4.1 K/UL (4.8-10.8) L Red Blood Count 2.96 M/UL (4.20-5.40) L Hemoglobin 9.5 G/DL (12.0-16.0) L Hematocrit 30.1 % (37.0-47.0) L Mean Corpuscular Volume 102 FL (80-99) H Mean Corpuscular Hemoglobin 32.2 PG (27.0-31.0) H Mean Corpuscular Hemoglobin Concent 31.7 G/DL (32.0-36.0) L Red Cell Distribution Width 15.2 % (11.6-14.8) H Platelet Count 210 K/UL (150-450) Mean Platelet Volume 8.5 FL (6.5-10.1) Neutrophils (%) (Auto) 56.0 % (45.0-75.0) Lymphocytes (%) (Auto) 37.7 % (20.0-45.0) Monocytes (%) (Auto) 3.9 % (1.0-10.0) Eosinophils (%) (Auto) 1.3 % (0.0-3.0) Basophils (%) (Auto) 1.0 % (0.0-2.0) Sodium Level 137 MMOL/L (136-145) Potassium Level 5.4 MMOL/L (3.5-5.1) H Chloride Level 102 MMOL/L (98-107) Carbon Dioxide Level 27 MMOL/L (21-32) Anion Gap 8 mmol/L (5-15) Blood Urea Nitrogen 47 mg/dL (7-18) H Creatinine 1.4 MG/DL (0.55-1.30) H Estimat Glomerular Filtration Rate 49.3 mL/min (>60) Glucose Level 473 MG/DL (74-106) #H Calcium Level 8.5 MG/DL (8.5-10.1) Phosphorus Level 4.3 MG/DL (2.5-4.9) Magnesium Level 2.2 MG/DL (1.8-2.4) Total Bilirubin 0.5 MG/DL (0.2-1.0) Aspartate Amino Transf (AST/SGOT) 47 U/L (15-37) H Alanine Aminotransferase (ALT/SGPT) 53 U/L (12-78) Alkaline Phosphatase 102 U/L (46-116) Total Protein 6.5 G/DL (6.4-8.2) Albumin 2.9 G/DL (3.4-5.0) L Globulin 3.6 g/dL Albumin/Globulin Ratio 0.8 (1.0-2.7) L Microbiology Date/Time Source Procedure Growth Status 05/26/17 00:20 Nasal Nares MRSA Culture - Final Staphylococcus Aureus - Mrsa Complete Intake and Output 05/28/17 05/29/17 19:00 07:00 Intake Total 300 ml Balance 300 ml IV Total 300 ml Objective PHYSICAL EXAMINATION: GENERAL: The patient awake, responsive, in no acute distress. HEAD AND NECK: Pupils are reactive to light. Extraocular movements are intact. Neck was supple. No JVD. LUNGS: Good air entry. No wheezing or rales. HEART: Reveals S1 and S2. Regular rhythm. No gallops. ABDOMEN: Soft, nondistended, and nontender. Positive bowel sounds. EXTREMITIES: No cyanosis, clubbing, or edema. NEUROLOGIC: Cranial nerves II through XII are grossly intact. Motor is 5/5 in all extremities. Gait is intact. Assessment/Plan Problem List: (1) Diabetes mellitus type 1, uncontrolled, insulin dependent Assessment & Plan: Labile; 65-426. Continue levemir and novolog sliding scale. See endocrinology note. (2) Hypoglycemia (3) HTN (hypertension) Assessment & Plan: Continue norvasc (4) ARF (acute renal failure) (5) GERD (gastroesophageal reflux disease) (6) Major depression Assessment & Plan: Continue remeron and lexapro. Status: progressing CHRISTOS JACOBSEN May 28, 2017 18:41
[2017-05-28 20:00] VITALS: BP 110/59
--- NOTE | 2017-05-28 22:09 | Consultation ---
History of Present Illness General Date patient seen: May 27, 2017 Chief Complaint: Altered Level of Consciousness Present Illness HPI 46-year-old female with past medical history significant for diabetes type 1, hypertension, GERD, chronic kidney disease who presented to the hospital after she was found to be in altered mental status. the pt pw anxiety and insomnia. mild depressive sxs Allergies: Coded Allergies: No Known Allergies (Unverified , 04/24/14) Medication History Scheduled Amlodipine Besylate (Norvasc), 10 MG ORAL DAILY Amoxicillin* (Amoxil*), 500 MG ORAL Q6HR, (Reported) Escitalopram Oxalate* (Lexapro*), 20 MG ORAL DAILY, (Reported) Hydrochlorothiazide* (Hydrochlorothiazide*), Unknown Dose ORAL DAILY, (Reported) Hydrochlorothiazide* (Hydrochlorothiazide*), 25 MG ORAL DAILY, (Reported) Insulin Aspart (Novolog Flexpen), 8 UNITS SUBQ NOVOTIAC Insulin Aspart (Novolog Flexpen), 3 UNITS SUBQ NOVOTIAC Insulin Aspart* (Novolog*), 0 SUBQ BEFORE MEALS, (Reported) Insulin Degludec (Tresiba Flextouch U-100), 15 UNIT SQ DAILY, (Reported) Meloxicam* (Meloxicam*), 15 MG PO DAILY, (Reported) Mirtazapine* (Mirtazapine*), 7.5 MG ORAL BEDTIME Pantoprazole* (Protonix*), 40 MG ORAL DAILY, (Reported) Pregabalin (Lyrica), 50 MG PO BID, (Reported) Valsartan (Diovan), 160 MG ORAL BID Scheduled PRN Clonidine HCl (Clonidine HCl), 0.1 MG ORAL Q4H PRN Hydrocodone Bit/Acetaminophen 5-325* ([place] 5-325 Tablet*), 1 TAB ORAL Q4H PRN for For Pain, (Reported) Ibuprofen* (Motrin*), 600 MG ORAL Q6H PRN for For Pain, (Reported) Ondansetron Odt* (Zofran Odt*), 4 MG ORAL Q6H PRN for Nausea & Vomiting Miscellaneous Medications Hydrocodone Bitartrate ([place] ER), Unknown Dose PO, (Reported) Potassium Chloride (Potassium Chloride), 10 MEQ PO, (Reported) [Insulin], (Reported) Discontinued Medications Insulin Aspart (Novolog Flexpen), 0 UNITS SUBQ BEFORE MEALS AND HS Discontinued Reason: MD discontinued med Insulin Detemir (Levemir Flexpen), 15 UNITS SUBQ DAILY Discontinued Reason: MD discontinued med Patient History History Provided By: Patient, Medical Record, PMD Healthcare decision maker Resuscitation status Full Code Advanced Directive on File No Past Medical/Surgical History Past Medical/Surgical History: (1) Dysphagia (2) Depression (3) Diarrhea (4) Diarrhea (5) Encephalopathy (6) Hypophosphatemia (7) Hypophosphatemia (8) Esophageal ulcer (9) Hyperosmolar coma (10) Epigastric pain (11) Chest pain (12) Chest pain (13) Britney esophagitis (14) Nausea & vomiting (15) Esophageal ulcer without bleeding (16) Hypertensive emergency (17) esophageal u (18) Anemia (19) Diabetes (20) UTI (urinary tract infection) (21) DKA (diabetic ketoacidoses) (22) Acidosis, metabolic (23) Hyperkalemia (24) Diabetic gastroparesis (25) Pancreatitis (26) Hypoalbuminemia (27) Dehydration (28) Diabetic ketoacidosis, type I (29) SOB (shortness of breath) (30) Hyperglycemia (31) Renal failure (32) Renal insufficiency (33) Diabetic nephropathy (34) DKA (diabetic ketoacidosis) (35) Diabetes type 1, uncontrolled (36) Esophagitis (37) Anemia (38) Gastritis (39) Constipation (40) Altered level of consciousness (41) Hypoglycemia (42) Major depression (43) GERD (gastroesophageal reflux disease) (44) HTN (hypertension) (45) Diabetes mellitus type 1, uncontrolled, insulin dependent (46) Hypertension (47) Uncontrolled diabetes mellitus (48) Non-compliance with treatment (49) CKD (chronic kidney disease) (50) Diabetic ketoacidosis, type I (51) Vomiting (52) ARF (acute renal failure) (53) Urinary retention (54) Oral candidiasis Review of Systems Psychiatric: Reports: prior hx, anxiety, depressed feelings, emotional problems Physical Exam General Appearance: WD/WN, no apparent distress, alert Neurologic: alert, oriented x 3, responsive, depressed affect Last 24 Hour Vital Signs Date Time Temp Pulse Resp B/P (MAP) Pulse Ox O2 Delivery O2 Flow Rate FiO2 05/28/17 21:23 97.7 05/28/17 20:00 98 Room Air 05/28/17 20:00 97.7 75 20 110/59 98 Room Air 05/28/17 17:28 103/68 05/28/17 16:00 97.7 71 20 103/68 97 05/28/17 12:00 97.3 80 20 140/80 97 05/28/17 08:53 101/52 05/28/17 08:48 Room Air 05/28/17 08:47 83 101/52 05/28/17 08:00 98.0 83 20 101/52 96 05/28/17 04:00 96 Room Air 05/28/17 04:00 97.9 78 18 125/60 05/28/17 00:00 97.9 75 19 120/68 97 05/28/17 00:00 97 Room Air Intake and Output 05/28/17 05/29/17 19:00 07:00 Intake Total 615 ml 150 ml Balance 615 ml 150 ml Intake Oral 240 ml IV Total 375 ml 150 ml # Voids 4 Laboratory Tests Test 05/28/17 04:50 White Blood Count 4.1 K/UL (4.8-10.8) L Red Blood Count 2.96 M/UL (4.20-5.40) L Hemoglobin 9.5 G/DL (12.0-16.0) L Hematocrit 30.1 % (37.0-47.0) L Mean Corpuscular Volume 102 FL (80-99) H Mean Corpuscular Hemoglobin 32.2 PG (27.0-31.0) H Mean Corpuscular Hemoglobin Concent 31.7 G/DL (32.0-36.0) L Red Cell Distribution Width 15.2 % (11.6-14.8) H Platelet Count 210 K/UL (150-450) Mean Platelet Volume 8.5 FL (6.5-10.1) Neutrophils (%) (Auto) 56.0 % (45.0-75.0) Lymphocytes (%) (Auto) 37.7 % (20.0-45.0) Monocytes (%) (Auto) 3.9 % (1.0-10.0) Eosinophils (%) (Auto) 1.3 % (0.0-3.0) Basophils (%) (Auto) 1.0 % (0.0-2.0) Sodium Level 137 MMOL/L (136-145) Potassium Level 5.4 MMOL/L (3.5-5.1) H Chloride Level 102 MMOL/L (98-107) Carbon Dioxide Level 27 MMOL/L (21-32) Anion Gap 8 mmol/L (5-15) Blood Urea Nitrogen 47 mg/dL (7-18) H Creatinine 1.4 MG/DL (0.55-1.30) H Estimat Glomerular Filtration Rate 49.3 mL/min (>60) Glucose Level 473 MG/DL (74-106) #H Calcium Level 8.5 MG/DL (8.5-10.1) Phosphorus Level 4.3 MG/DL (2.5-4.9) Magnesium Level 2.2 MG/DL (1.8-2.4) Total Bilirubin 0.5 MG/DL (0.2-1.0) Aspartate Amino Transf (AST/SGOT) 47 U/L (15-37) H Alanine Aminotransferase (ALT/SGPT) 53 U/L (12-78) Alkaline Phosphatase 102 U/L (46-116) Total Protein 6.5 G/DL (6.4-8.2) Albumin 2.9 G/DL (3.4-5.0) L Globulin 3.6 g/dL Albumin/Globulin Ratio 0.8 (1.0-2.7) L Height (Feet): 5 Height (Inches): 2.00 Weight (Pounds): 122 Medications Current Medications Medications (Trade) Dose Ordered Sig/Lizbeth Route PRN Reason Start Time Stop Time Status Last Admin Dose Admin Acetaminophen/ Hydrocodone Bitart ([place] 5/325) 1 tab Q4H PRN ORAL PAIN 4-10 05/26/17 10:00 06/02/17 09:59 05/28/17 20:22 Amlodipine Besylate (Norvasc) 10 mg DAILY ORAL 05/29/17 09:00 06/25/17 08:59 Clonidine HCl (Catapres) 0.1 mg Q4H PRN ORAL For High Blood Pressure 05/26/17 03:30 06/25/17 03:29 Dextrose (Dextrose 50%) STAT PRN IV Hypoglycemia 05/27/17 13:30 06/26/17 13:29 05/27/17 23:28 Escitalopram Oxalate (Lexapro) 20 mg DAILY ORAL 05/26/17 09:00 06/25/17 08:59 05/28/17 08:52 Heparin Sodium (Porcine) (Heparin 5000 units/ml) 5,000 units EVERY 8 HOURS SUBQ 05/26/17 14:00 06/25/17 13:59 05/28/17 20:24 Hydrochlorothiazide (Hydrodiuril) 25 mg DAILY ORAL 05/26/17 09:00 06/25/17 08:59 05/27/17 09:08 Ibuprofen (Motrin) 600 mg Q6H PRN ORAL Mild Pain (Pain Scale 1-3) 05/26/17 09:30 06/25/17 09:29 Insulin Aspart (NovoLOG) AFTERBREAKFAST SUBQ 05/28/17 10:00 06/27/17 09:59 Insulin Aspart (NovoLOG) BEFORE MEALS AND HS SUBQ 05/26/17 06:30 06/25/17 06:29 05/28/17 06:01 Insulin Aspart (NovoLOG) 4 units NOVOTIAC SUBQ 05/27/17 06:30 06/26/17 06:29 05/28/17 12:38 Insulin Detemir (Levemir) 15 units Q24H SUBQ 05/27/17 09:00 06/26/17 08:59 05/28/17 08:57 Irbesartan (Avapro) 150 mg BID ORAL 05/26/17 09:00 06/25/17 08:59 05/28/17 17:28 Meloxicam (Mobic) 15 mg DAILY ORAL 05/26/17 09:00 06/25/17 08:59 05/28/17 08:52 Mirtazapine (Remeron) 7.5 mg BEDTIME ORAL 05/26/17 21:00 06/25/17 20:59 05/28/17 20:22 Pantoprazole (Protonix) 40 mg DAILY ORAL 05/26/17 09:00 06/25/17 08:59 05/28/17 08:51 Pregabalin (Lyrica) 50 mg BID ORAL 05/27/17 09:00 06/26/17 08:59 05/28/17 17:28 Sodium Chloride 1,000 ml @ 75 mls/hr [id number] IV 05/27/17 18:00 06/26/17 17:59 05/28/17 08:47 Assessment/Plan Status: stable Assessment/Plan anxiety d/o depression dm -remeron 7.5mg qhs -lexapro 20mg Elisha West M.D. May 28, 2017 22:09
--- NOTE | 2017-05-28 22:09 | General Progress Note ---
Assessment/Plan Status: stable Subjective Date patient seen: May 28, 2017 Neurologic/Psychiatric: Reports: anxiety, depressed, emotional problems Allergies: Coded Allergies: No Known Allergies (Unverified , 04/24/14) Objective Last 24 Hour Vital Signs Date Time Temp Pulse Resp B/P (MAP) Pulse Ox O2 Delivery O2 Flow Rate FiO2 05/28/17 21:23 97.7 05/28/17 20:00 98 Room Air 05/28/17 20:00 97.7 75 20 110/59 98 Room Air 05/28/17 17:28 103/68 05/28/17 16:00 97.7 71 20 103/68 97 05/28/17 12:00 97.3 80 20 140/80 97 05/28/17 08:53 101/52 05/28/17 08:48 Room Air 05/28/17 08:47 83 101/52 05/28/17 08:00 98.0 83 20 101/52 96 05/28/17 04:00 96 Room Air 05/28/17 04:00 97.9 78 18 125/60 05/28/17 00:00 97.9 75 19 120/68 97 05/28/17 00:00 97 Room Air Intake and Output 05/28/17 05/29/17 19:00 07:00 Intake Total 615 ml 150 ml Balance 615 ml 150 ml Intake Oral 240 ml IV Total 375 ml 150 ml # Voids 4 Laboratory Tests 05/28/17 04:50: White Blood Count 4.1L, Red Blood Count 2.96L, Hemoglobin 9.5L, Hematocrit 30.1L , Mean Corpuscular Volume 102H, Mean Corpuscular Hemoglobin 32.2H, Mean Corpuscular Hemoglobin Concent 31.7L, Red Cell Distribution Width 15.2H, Platelet Count 210, Mean Platelet Volume 8.5, Neutrophils (%) (Auto) 56.0, Lymphocytes (%) (Auto) 37.7, Monocytes (%) (Auto) 3.9, Eosinophils (%) (Auto) 1.3, Basophils (%) (Auto) 1.0, Sodium Level 137, Potassium Level 5.4H, Chloride Level 102, Carbon Dioxide Level 27, Anion Gap 8, Blood Urea Nitrogen 47H, Creatinine 1.4H, Estimat Glomerular Filtration Rate 49.3, Glucose Level 473#H, Calcium Level 8.5, Phosphorus Level 4.3, Magnesium Level 2.2, Total Bilirubin 0.5, Aspartate Amino Transf (AST/SGOT) 47H, Alanine Aminotransferase (ALT/SGPT) 53, Alkaline Phosphatase 102, Total Protein 6.5, Albumin 2.9L, Globulin 3.6, Albumin/Globulin Ratio 0.8L Height (Feet): 5 Height (Inches): 2.00 Weight (Pounds): 122 General Appearance: no apparent distress, alert Neurologic: alert, oriented x 3, responsive, depressed affect Elisha Hardy M.D. May 28, 2017 22:09
[2017-05-29] VITALS: BP 119/64
[2017-05-29 04:00] VITALS: BP 134/73
[2017-05-29] MEDS: Sodium Chloride 500ML 1,000 ML IV SCH ×2 (04:08→23:23)
[2017-05-29] MEDS: NovoLOG Insulin Flexpen SUBQ SCH ×7 (06:04→21:00)
[2017-05-29] MEDS: Heparin 5000 units/ml inj SUBQ SCH ×3 (06:07→21:09)
[2017-05-29 07:12] LABS: BASOPHILS % (AUTO) 1.5 % (0.0-2.0); EOSINOPHILS % (AUTO) 2.2 % (0.0-3.0); MEAN CORPUSCULAR HEMOGLOBIN 30.4 PG (27.0-31.0); MEAN CORPUSCULAR HGB CONC 29.8 G/DL (32.0-36.0); MEAN CORPUSCULAR VOLUME 102 FL (80-99); MEAN PLATELET VOLUME 8.1 FL (6.5-10.1); MONOCYTES % (AUTO) 4.8 % (1.0-10.0); NEUTROPHILS % (AUTO) 42.6 % (45.0-75.0); PLATELET COUNT 216 K/UL (150-450); RED BLOOD COUNT 2.96 M/UL (4.20-5.40); RED CELL DISTRIBUTION WIDTH 15.4 % (11.6-14.8); WHITE BLOOD COUNT 4.8 K/UL (4.8-10.8)
[2017-05-29 07:28] LABS: ALANINE AMINOTRANSFERASE 56 U/L (12-78); ALBUMIN/GLOBULIN RATIO 0.7 (1.0-2.7); ANION GAP 8 mmol/L (5-15); ASPARTATE AMINO TRANSFERASE 73 U/L (15-37); CARBON DIOXIDE 28 MMOL/L (21-32); CHLORIDE 105 MMOL/L (98-107); CREATININE 1.4 MG/DL (0.55-1.30); GLOMERULAR FILTRATION RATE 49.3 mL/min (>60); MAGNESIUM 2.1 MG/DL (1.8-2.4); PHOSPHORUS 3.1 MG/DL (2.5-4.9); POTASSIUM 4.7 MMOL/L (3.5-5.1); SODIUM 140 MMOL/L (136-145); TOTAL PROTEIN 6.5 G/DL (6.4-8.2)
[2017-05-29 08:34] VITALS: BP 104/55
[2017-05-29] MEDS: Meloxicam 15 MG TAB ORAL SCH (10:00)
[2017-05-29] MEDS: Lyrica 50mg cap ORAL SCH ×2 (10:02→17:28)
[2017-05-29] MEDS: Levemir Flexpen SUBQ SCH (10:10)
[2017-05-29] MEDS: Norco 5mg/325mg tab ORAL PRN ×2 (10:21→21:05)
[2017-05-29] MEDS: Irbesartan 150mg tablet ORAL SCH ×2 (10:21→17:29)
[2017-05-29 12:00] VITALS: BP 153/87
--- NOTE | 2017-05-29 13:00 | Internal Med Progress Note ---
Subjective Date of Service: May 29, 2017 Physician Name Christos Jacobsen Attending Physician Aries Hardin MD Current Medications Medications (Trade) Dose Ordered Sig/Lizbeth Route PRN Reason Start Time Stop Time Status Last Admin Dose Admin Acetaminophen/ Hydrocodone Bitart ([place] 5/325) 1 tab Q4H PRN ORAL PAIN 4-10 05/26/17 10:00 06/02/17 09:59 05/29/17 10:21 Amlodipine Besylate (Norvasc) 10 mg DAILY ORAL 05/29/17 09:00 06/25/17 08:59 05/29/17 10:00 Clonidine HCl (Catapres) 0.1 mg Q4H PRN ORAL For High Blood Pressure 05/26/17 03:30 06/25/17 03:29 Dextrose (Dextrose 50%) STAT PRN IV Hypoglycemia 05/27/17 13:30 06/26/17 13:29 05/27/17 23:28 Escitalopram Oxalate (Lexapro) 20 mg DAILY ORAL 05/26/17 09:00 06/25/17 08:59 05/29/17 10:22 Heparin Sodium (Porcine) (Heparin 5000 units/ml) 5,000 units EVERY 8 HOURS SUBQ 05/26/17 14:00 06/25/17 13:59 05/29/17 06:07 Hydrochlorothiazide (Hydrodiuril) 25 mg DAILY ORAL 05/26/17 09:00 06/25/17 08:59 05/29/17 10:00 Ibuprofen (Motrin) 600 mg Q6H PRN ORAL Mild Pain (Pain Scale 1-3) 05/26/17 09:30 06/25/17 09:29 Insulin Aspart (NovoLOG) AFTERBREAKFAST SUBQ 05/28/17 10:00 06/27/17 09:59 Insulin Aspart (NovoLOG) BEFORE MEALS AND HS SUBQ 05/26/17 06:30 06/25/17 06:29 05/29/17 11:47 Insulin Aspart (NovoLOG) 4 units NOVOTIAC SUBQ 05/27/17 06:30 06/26/17 06:29 05/29/17 11:46 Insulin Detemir (Levemir) 15 units Q24H SUBQ 05/27/17 09:00 06/26/17 08:59 05/29/17 10:10 Irbesartan (Avapro) 150 mg BID ORAL 05/26/17 09:00 06/25/17 08:59 05/29/17 10:21 Meloxicam (Mobic) 15 mg DAILY ORAL 05/26/17 09:00 06/25/17 08:59 05/29/17 10:00 Mirtazapine (Remeron) 7.5 mg BEDTIME ORAL 05/26/17 21:00 06/25/17 20:59 05/28/17 20:22 Pantoprazole (Protonix) 40 mg DAILY ORAL 05/26/17 09:00 06/25/17 08:59 05/29/17 10:00 Pregabalin (Lyrica) 50 mg BID ORAL 05/27/17 09:00 06/26/17 08:59 05/29/17 10:02 Sodium Chloride 1,000 ml @ 75 mls/hr [id number] IV 05/27/17 18:00 06/26/17 17:59 05/29/17 04:08 Allergies: Coded Allergies: No Known Allergies (Unverified , 04/24/14) ROS Limited/Unobtainable: No Constitutional: Reports: no symptoms HEENT: Reports: no symptoms Cardiovascular: Reports: no symptoms Respiratory: Reports: no symptoms Gastrointestinal/Abdominal: Reports: no symptoms Genitourinary: Reports: no symptoms Neurologic/Psychiatric: Reports: no symptoms Subjective 46 YO F with diabetes type I, admitted with hypoglycemia and altered mental status. Cover for Int Alejo-Dr Hardin Objective Last Vital Signs Date Time Temp Pulse Resp B/P (MAP) Pulse Ox O2 Delivery O2 Flow Rate FiO2 05/29/17 12:00 97.9 83 16 153/87 100 05/29/17 08:34 Room Air Laboratory Tests Test 05/29/17 06:00 White Blood Count 4.8 K/UL (4.8-10.8) Red Blood Count 2.96 M/UL (4.20-5.40) L Hemoglobin 9.0 G/DL (12.0-16.0) L Hematocrit 30.2 % (37.0-47.0) L Mean Corpuscular Volume 102 FL (80-99) H Mean Corpuscular Hemoglobin 30.4 PG (27.0-31.0) Mean Corpuscular Hemoglobin Concent 29.8 G/DL (32.0-36.0) L Red Cell Distribution Width 15.4 % (11.6-14.8) H Platelet Count 216 K/UL (150-450) Mean Platelet Volume 8.1 FL (6.5-10.1) Neutrophils (%) (Auto) 42.6 % (45.0-75.0) L Lymphocytes (%) (Auto) 49.0 % (20.0-45.0) H Monocytes (%) (Auto) 4.8 % (1.0-10.0) Eosinophils (%) (Auto) 2.2 % (0.0-3.0) Basophils (%) (Auto) 1.5 % (0.0-2.0) Sodium Level 140 MMOL/L (136-145) Potassium Level 4.7 MMOL/L (3.5-5.1) Chloride Level 105 MMOL/L (98-107) Carbon Dioxide Level 28 MMOL/L (21-32) Anion Gap 8 mmol/L (5-15) Blood Urea Nitrogen 46 mg/dL (7-18) H Creatinine 1.4 MG/DL (0.55-1.30) H Estimat Glomerular Filtration Rate 49.3 mL/min (>60) Glucose Level 407 MG/DL (74-106) H Calcium Level 8.0 MG/DL (8.5-10.1) L Phosphorus Level 3.1 MG/DL (2.5-4.9) Magnesium Level 2.1 MG/DL (1.8-2.4) Total Bilirubin 0.2 MG/DL (0.2-1.0) Aspartate Amino Transf (AST/SGOT) 73 U/L (15-37) H Alanine Aminotransferase (ALT/SGPT) 56 U/L (12-78) Alkaline Phosphatase 111 U/L (46-116) Total Protein 6.5 G/DL (6.4-8.2) Albumin 2.7 G/DL (3.4-5.0) L Globulin 3.8 g/dL Albumin/Globulin Ratio 0.7 (1.0-2.7) L Objective PHYSICAL EXAMINATION: GENERAL: The patient awake, responsive, in no acute distress. HEAD AND NECK: Pupils are reactive to light. Extraocular movements are intact. Neck was supple. No JVD. LUNGS: Good air entry. No wheezing or rales. HEART: Reveals S1 and S2. Regular rhythm. No gallops. ABDOMEN: Soft, nondistended, and nontender. Positive bowel sounds. EXTREMITIES: No cyanosis, clubbing, or edema. NEUROLOGIC: Cranial nerves II through XII are grossly intact. Motor is 5/5 in all extremities. Gait is intact. Assessment/Plan Problem List: (1) Diabetes mellitus type 1, uncontrolled, insulin dependent Assessment & Plan: Labile; 280-407. Continue levemir and novolog sliding scale. See endocrinology note. (2) Hypoglycemia (3) HTN (hypertension) Assessment & Plan: Continue norvasc (4) ARF (acute renal failure) (5) GERD (gastroesophageal reflux disease) (6) Major depression Assessment & Plan: Continue remeron and lexapro. Status: progressing Assessment/Plan Discharge planning CHRISTOS JACOBSEN May 29, 2017 13:00
[2017-05-29 16:25] VITALS: BP 123/60
--- NOTE | 2017-05-29 17:47 | Pulmonology Progress Note ---
Assessment/Plan Problems: (1) Hypoglycemia (2) Diabetes mellitus type 1, uncontrolled, insulin dependent (3) Altered level of consciousness (4) Major depression Assessment/Plan all noted one more day in hospital repeat h/h in am BS very fluctuating - Levermir 15 units qam - Novolog 4 units ac tid + SSI Subjective ROS Limited/Unobtainable: No Allergies: Coded Allergies: No Known Allergies (Unverified , 04/24/14) Objective Last 24 Hour Vital Signs Date Time Temp Pulse Resp B/P (MAP) Pulse Ox O2 Delivery O2 Flow Rate FiO2 05/29/17 17:29 123/60 05/29/17 16:25 98.1 79 18 123/60 96 Room Air 05/29/17 12:00 97.9 83 16 153/87 100 05/29/17 11:20 97.7 05/29/17 10:21 104/55 05/29/17 10:00 83 104/55 05/29/17 08:34 97.7 83 14 104/55 100 Room Air 05/29/17 04:00 95 Room Air 05/29/17 04:00 97.3 80 20 134/73 95 Room Air 05/29/17 00:00 98 Room Air 05/29/17 00:00 97.3 72 20 119/64 98 Room Air 05/28/17 20:00 98 Room Air 05/28/17 20:00 97.7 75 20 110/59 98 Room Air General Appearance: WD/WN HEENT: normocephalic Respiratory/Chest: chest wall non-tender Cardiovascular: normal peripheral pulses, normal rate Abdomen: normal bowel sounds, no organomegaly Genitourinary: normal external genitalia Skin: no rash, no ulcers 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 Laboratory Tests 05/29/17 06:00: White Blood Count 4.8, Red Blood Count 2.96L, Hemoglobin 9.0L, Hematocrit 30.2L , Mean Corpuscular Volume 102H, Mean Corpuscular Hemoglobin 30.4, Mean Corpuscular Hemoglobin Concent 29.8L, Red Cell Distribution Width 15.4H, Platelet Count 216, Mean Platelet Volume 8.1, Neutrophils (%) (Auto) 42.6L, Lymphocytes (%) (Auto) 49.0H, Monocytes (%) (Auto) 4.8, Eosinophils (%) (Auto) 2.2, Basophils (%) (Auto) 1.5, Sodium Level 140, Potassium Level 4.7, Chloride Level 105, Carbon Dioxide Level 28, Anion Gap 8, Blood Urea Nitrogen 46H, Creatinine 1.4H, Estimat Glomerular Filtration Rate 49.3, Glucose Level 407H, Calcium Level 8.0L, Phosphorus Level 3.1, Magnesium Level 2.1, Total Bilirubin 0.2, Aspartate Amino Transf (AST/SGOT) 73H, Alanine Aminotransferase (ALT/SGPT) 56, Alkaline Phosphatase 111, Total Protein 6.5, Albumin 2.7L, Globulin 3.8, Albumin/Globulin Ratio 0.7L Current Medications Medications (Trade) Dose Ordered Sig/Lizbeth Route PRN Reason Start Time Stop Time Status Last Admin Dose Admin Acetaminophen/ Hydrocodone Bitart ([place] 5/325) 1 tab Q4H PRN ORAL PAIN 4-10 05/26/17 10:00 06/02/17 09:59 05/29/17 10:21 Amlodipine Besylate (Norvasc) 10 mg DAILY ORAL 05/29/17 09:00 06/25/17 08:59 05/29/17 10:00 Clonidine HCl (Catapres) 0.1 mg Q4H PRN ORAL For High Blood Pressure 05/26/17 03:30 06/25/17 03:29 Dextrose (Dextrose 50%) STAT PRN IV Hypoglycemia 05/27/17 13:30 06/26/17 13:29 05/27/17 23:28 Escitalopram Oxalate (Lexapro) 20 mg DAILY ORAL 05/26/17 09:00 06/25/17 08:59 05/29/17 10:22 Heparin Sodium (Porcine) (Heparin 5000 units/ml) 5,000 units EVERY 8 HOURS SUBQ 05/26/17 14:00 06/25/17 13:59 05/29/17 06:07 Hydrochlorothiazide (Hydrodiuril) 25 mg DAILY ORAL 05/26/17 09:00 06/25/17 08:59 05/29/17 10:00 Ibuprofen (Motrin) 600 mg Q6H PRN ORAL Mild Pain (Pain Scale 1-3) 05/26/17 09:30 06/25/17 09:29 Insulin Aspart (NovoLOG) AFTERBREAKFAST SUBQ 05/28/17 10:00 06/27/17 09:59 Insulin Aspart (NovoLOG) BEFORE MEALS AND HS SUBQ 05/26/17 06:30 06/25/17 06:29 05/29/17 16:54 Insulin Aspart (NovoLOG) 4 units NOVOTIAC SUBQ 05/27/17 06:30 06/26/17 06:29 05/29/17 16:53 Insulin Detemir (Levemir) 15 units Q24H SUBQ 05/27/17 09:00 06/26/17 08:59 05/29/17 10:10 Irbesartan (Avapro) 150 mg BID ORAL 05/26/17 09:00 06/25/17 08:59 05/29/17 17:29 Meloxicam (Mobic) 15 mg DAILY ORAL 05/26/17 09:00 06/25/17 08:59 05/29/17 10:00 Mirtazapine (Remeron) 7.5 mg BEDTIME ORAL 05/26/17 21:00 06/25/17 20:59 05/28/17 20:22 Pantoprazole (Protonix) 40 mg DAILY ORAL 05/26/17 09:00 06/25/17 08:59 05/29/17 10:00 Pregabalin (Lyrica) 50 mg BID ORAL 05/27/17 09:00 06/26/17 08:59 05/29/17 17:28 Sodium Chloride 1,000 ml @ 75 mls/hr [id number] IV 05/27/17 18:00 06/26/17 17:59 05/29/17 04:08 VANESSA SAGASTUME May 29, 2017 17:47
[2017-05-29] MEDS ORDERED: NS 500ML ONE (18:07)
[2017-05-29 20:00] VITALS: BP 124/67
--- NOTE | 2017-05-29 21:30 | Progress Note ---
DATE: 05/29/2017 SUBJECTIVE: The patient is doing well. Still complaints of depression and anxiety. MENTAL STATUS EXAMINATION: Mood is dysphoric. Affect is constricted. Congruent with mood. Thought process is concrete. Thought content, no suicidal or homicidal ideation. ASSESSMENT: 1. Major depressive disorder. 2. Anxiety. PLAN: 1. We will continue the Remeron. 2. We will continue the Lexapro. 3. We will continue to follow and readjust the medications. Elisha Hardy M.D. DR: ROJAS JOB#: [id number] CC:
[2017-05-30] VITALS: BP 118/66
[2017-05-30 04:00] VITALS: BP 129/72
[2017-05-30] MEDS: Heparin 5000 units/ml inj SUBQ SCH ×3 (05:59→22:00)
[2017-05-30] MEDS: NovoLOG Insulin Flexpen SUBQ SCH ×7 (06:02→20:39)
[2017-05-30 07:21] LABS: EOSINOPHILS % (AUTO) 3.5 % (0.0-3.0); LYMPHOCYTES % (AUTO) 39.5 % (20.0-45.0); MEAN CORPUSCULAR HEMOGLOBIN 31.6 PG (27.0-31.0); MEAN CORPUSCULAR HGB CONC 31.8 G/DL (32.0-36.0); MEAN CORPUSCULAR VOLUME 99 FL (80-99); MEAN PLATELET VOLUME 8.9 FL (6.5-10.1); MONOCYTES % (AUTO) 7.8 % (1.0-10.0); NEUTROPHILS % (AUTO) 48.3 % (45.0-75.0); PLATELET COUNT 220 K/UL (150-450); RED BLOOD COUNT 2.76 M/UL (4.20-5.40); RED CELL DISTRIBUTION WIDTH 14.8 % (11.6-14.8); WHITE BLOOD COUNT 4.3 K/UL (4.8-10.8)
[2017-05-30 07:40] LABS: ANION GAP 3 mmol/L (5-15); CALCIUM 8.3 MG/DL (8.5-10.1); CARBON DIOXIDE 34 MMOL/L (21-32); CHLORIDE 110 MMOL/L (98-107); CREATININE 1.2 MG/DL (0.55-1.30); GLOMERULAR FILTRATION RATE 58.9 mL/min (>60); POTASSIUM 4.4 MMOL/L (3.5-5.1); SODIUM 147 MMOL/L (136-145)
[2017-05-30 08:43] VITALS: BP 171/82
[2017-05-30] MEDS: Irbesartan 150mg tablet ORAL SCH ×2 (08:50→18:04)
[2017-05-30] MEDS: Meloxicam 15 MG TAB ORAL SCH (08:51)
[2017-05-30] MEDS: Lyrica 50mg cap ORAL SCH ×2 (08:51→18:04)
[2017-05-30] MEDS: Levemir Flexpen SUBQ SCH (08:59)
[2017-05-30 12:05] VITALS: BP 156/91
[2017-05-30] MEDS: Norco 5mg/325mg tab ORAL PRN ×2 (13:35→23:44)
[2017-05-30] MEDS ORDERED: NS 500ML ONE (15:14)
[2017-05-30] MEDS ORDERED: Tubing IV Secondary IV ONE (15:14)
[2017-05-30 16:12] VITALS: BP 119/70
--- NOTE | 2017-05-30 17:01 | Pulmonology Progress Note ---
Assessment/Plan Problems: (1) Hypoglycemia (2) Diabetes mellitus type 1, uncontrolled, insulin dependent (3) Altered level of consciousness (4) Major depression Assessment/Plan endocrin note reviewed repeat h/h in am BS very fluctuating - Levermir 15 units qam - Novolog 4 units ac tid + SSI Subjective ROS Limited/Unobtainable: No Constitutional: Reports: no symptoms HEENT: Repors: no symptoms Allergies: Coded Allergies: No Known Allergies (Unverified , 04/24/14) Objective Last 24 Hour Vital Signs Date Time Temp Pulse Resp B/P (MAP) Pulse Ox O2 Delivery O2 Flow Rate FiO2 05/30/17 16:12 97.2 72 20 119/70 98 05/30/17 14:34 97.2 05/30/17 12:05 97.9 86 20 156/91 99 05/30/17 08:51 86 171/82 05/30/17 08:50 171/82 05/30/17 08:43 97.5 86 20 171/82 95 05/30/17 04:00 97.2 72 20 129/72 100 Room Air 05/30/17 04:00 Room Air 05/30/17 00:00 Room Air 05/30/17 00:00 97.7 72 18 118/66 96 Room Air 05/29/17 20:00 Room Air 05/29/17 20:00 97.0 77 16 124/67 99 Room Air 05/29/17 17:29 123/60 Intake and Output 05/30/17 05/31/17 18:59 06:59 Intake Total 915 ml Balance 915 ml Intake Oral 840 ml IV Total 75 ml General Appearance: WD/WN HEENT: normocephalic Respiratory/Chest: chest wall non-tender, lungs clear Cardiovascular: normal peripheral pulses, normal rate Abdomen: normal bowel sounds, soft, non tender Extremities: no cyanosis, no clubbing 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 Laboratory Tests 05/30/17 05:20: White Blood Count 4.3L, Red Blood Count 2.76L, Hemoglobin 8.7L, Hematocrit 27.4L , Mean Corpuscular Volume 99, Mean Corpuscular Hemoglobin 31.6H, Mean Corpuscular Hemoglobin Concent 31.8L, Red Cell Distribution Width 14.8, Platelet Count 220, Mean Platelet Volume 8.9, Neutrophils (%) (Auto) 48.3, Lymphocytes (%) (Auto) 39.5, Monocytes (%) (Auto) 7.8, Eosinophils (%) (Auto) 3.5H, Basophils (%) (Auto) 1.0, Sodium Level 147H, Potassium Level 4.4, Chloride Level 110H, Carbon Dioxide Level 34H, Anion Gap 3L, Blood Urea Nitrogen 35H, Creatinine 1.2, Estimat Glomerular Filtration Rate 58.9, Glucose Level 111#H, Calcium Level 8.3L Current Medications Medications (Trade) Dose Ordered Sig/Lizbeth Route PRN Reason Start Time Stop Time Status Last Admin Dose Admin Acetaminophen/ Hydrocodone Bitart ([place] 5/325) 1 tab Q4H PRN ORAL PAIN 4-10 05/26/17 10:00 06/02/17 09:59 05/30/17 13:35 Amlodipine Besylate (Norvasc) 10 mg DAILY ORAL 05/29/17 09:00 06/25/17 08:59 05/30/17 08:51 Clonidine HCl (Catapres) 0.1 mg Q4H PRN ORAL For High Blood Pressure 05/26/17 03:30 06/25/17 03:29 Dextrose (Dextrose 50%) STAT PRN IV Hypoglycemia 05/27/17 13:30 06/26/17 13:29 05/27/17 23:28 Escitalopram Oxalate (Lexapro) 20 mg DAILY ORAL 05/26/17 09:00 06/25/17 08:59 05/30/17 08:51 Heparin Sodium (Porcine) (Heparin 5000 units/ml) 5,000 units EVERY 8 HOURS SUBQ 05/26/17 14:00 06/25/17 13:59 05/29/17 06:07 Hydrochlorothiazide (Hydrodiuril) 25 mg DAILY ORAL 05/26/17 09:00 06/25/17 08:59 05/30/17 08:51 Ibuprofen (Motrin) 600 mg Q6H PRN ORAL Mild Pain (Pain Scale 1-3) 05/26/17 09:30 06/25/17 09:29 Insulin Aspart (NovoLOG) AFTERBREAKFAST SUBQ 05/28/17 10:00 06/27/17 09:59 Insulin Aspart (NovoLOG) BEFORE MEALS AND HS SUBQ 05/26/17 06:30 06/25/17 06:29 05/30/17 11:38 Insulin Aspart (NovoLOG) 4 units NOVOTIAC SUBQ 05/27/17 06:30 06/26/17 06:29 05/30/17 11:37 Insulin Detemir (Levemir) 15 units Q24H SUBQ 05/27/17 09:00 06/26/17 08:59 05/30/17 08:59 Irbesartan (Avapro) 150 mg BID ORAL 05/26/17 09:00 06/25/17 08:59 05/30/17 08:50 Meloxicam (Mobic) 15 mg DAILY ORAL 05/26/17 09:00 06/25/17 08:59 05/30/17 08:51 Mirtazapine (Remeron) 7.5 mg BEDTIME ORAL 05/26/17 21:00 06/25/17 20:59 05/29/17 21:03 Pantoprazole (Protonix) 40 mg DAILY ORAL 05/26/17 09:00 06/25/17 08:59 05/30/17 08:51 Pregabalin (Lyrica) 50 mg BID ORAL 05/27/17 09:00 06/26/17 08:59 05/30/17 08:51 Sodium Chloride 1,000 ml @ 75 mls/hr [id number] IV 05/30/17 11:00 06/29/17 10:59 05/30/17 11:40 VANESSA SAGASTUME May 30, 2017 17:01
--- NOTE | 2017-05-30 18:44 | Internal Med Progress Note ---
Subjective Date of Service: May 30, 2017 Physician Name Christos Jacobsen Attending Physician Aries Hardin MD Current Medications Medications (Trade) Dose Ordered Sig/Lizbeth Route PRN Reason Start Time Stop Time Status Last Admin Dose Admin Acetaminophen/ Hydrocodone Bitart ([place] 5/325) 1 tab Q4H PRN ORAL PAIN 4-10 05/26/17 10:00 06/02/17 09:59 05/30/17 13:35 Amlodipine Besylate (Norvasc) 10 mg DAILY ORAL 05/29/17 09:00 06/25/17 08:59 05/30/17 08:51 Clonidine HCl (Catapres) 0.1 mg Q4H PRN ORAL For High Blood Pressure 05/26/17 03:30 06/25/17 03:29 Dextrose (Dextrose 50%) STAT PRN IV Hypoglycemia 05/27/17 13:30 06/26/17 13:29 05/27/17 23:28 Escitalopram Oxalate (Lexapro) 20 mg DAILY ORAL 05/26/17 09:00 06/25/17 08:59 05/30/17 08:51 Heparin Sodium (Porcine) (Heparin 5000 units/ml) 5,000 units EVERY 8 HOURS SUBQ 05/26/17 14:00 06/25/17 13:59 05/29/17 06:07 Hydrochlorothiazide (Hydrodiuril) 25 mg DAILY ORAL 05/26/17 09:00 06/25/17 08:59 05/30/17 08:51 Ibuprofen (Motrin) 600 mg Q6H PRN ORAL Mild Pain (Pain Scale 1-3) 05/26/17 09:30 06/25/17 09:29 Insulin Aspart (NovoLOG) AFTERBREAKFAST SUBQ 05/28/17 10:00 06/27/17 09:59 Insulin Aspart (NovoLOG) BEFORE MEALS AND HS SUBQ 05/26/17 06:30 06/25/17 06:29 05/30/17 11:38 Insulin Aspart (NovoLOG) 4 units NOVOTIAC SUBQ 05/27/17 06:30 06/26/17 06:29 05/30/17 18:06 Insulin Detemir (Levemir) 15 units Q24H SUBQ 05/27/17 09:00 06/26/17 08:59 05/30/17 08:59 Irbesartan (Avapro) 150 mg BID ORAL 05/26/17 09:00 06/25/17 08:59 05/30/17 18:04 Meloxicam (Mobic) 15 mg DAILY ORAL 05/26/17 09:00 06/25/17 08:59 05/30/17 08:51 Mirtazapine (Remeron) 7.5 mg BEDTIME ORAL 05/26/17 21:00 06/25/17 20:59 05/29/17 21:03 Pantoprazole (Protonix) 40 mg DAILY ORAL 05/26/17 09:00 06/25/17 08:59 05/30/17 08:51 Pregabalin (Lyrica) 50 mg BID ORAL 05/27/17 09:00 06/26/17 08:59 05/30/17 18:04 Sodium Chloride 1,000 ml @ 75 mls/hr [id number] IV 05/30/17 11:00 06/29/17 10:59 05/30/17 11:40 Allergies: Coded Allergies: No Known Allergies (Unverified , 04/24/14) ROS Limited/Unobtainable: No Constitutional: Reports: no symptoms HEENT: Reports: no symptoms Cardiovascular: Reports: no symptoms Respiratory: Reports: no symptoms Gastrointestinal/Abdominal: Reports: no symptoms Genitourinary: Reports: no symptoms Neurologic/Psychiatric: Reports: no symptoms Subjective 46 YO F with diabetes type I, admitted with hypoglycemia and altered mental status. Cover for Int Alejo-Dr Hardin Objective Last Vital Signs Date Time Temp Pulse Resp B/P (MAP) Pulse Ox O2 Delivery O2 Flow Rate FiO2 05/30/17 18:04 119/70 05/30/17 16:12 97.2 72 20 98 05/30/17 04:00 Room Air Laboratory Tests Test 05/30/17 05:20 White Blood Count 4.3 K/UL (4.8-10.8) L Red Blood Count 2.76 M/UL (4.20-5.40) L Hemoglobin 8.7 G/DL (12.0-16.0) L Hematocrit 27.4 % (37.0-47.0) L Mean Corpuscular Volume 99 FL (80-99) Mean Corpuscular Hemoglobin 31.6 PG (27.0-31.0) H Mean Corpuscular Hemoglobin Concent 31.8 G/DL (32.0-36.0) L Red Cell Distribution Width 14.8 % (11.6-14.8) Platelet Count 220 K/UL (150-450) Mean Platelet Volume 8.9 FL (6.5-10.1) Neutrophils (%) (Auto) 48.3 % (45.0-75.0) Lymphocytes (%) (Auto) 39.5 % (20.0-45.0) Monocytes (%) (Auto) 7.8 % (1.0-10.0) Eosinophils (%) (Auto) 3.5 % (0.0-3.0) H Basophils (%) (Auto) 1.0 % (0.0-2.0) Sodium Level 147 MMOL/L (136-145) H Potassium Level 4.4 MMOL/L (3.5-5.1) Chloride Level 110 MMOL/L (98-107) H Carbon Dioxide Level 34 MMOL/L (21-32) H Anion Gap 3 mmol/L (5-15) L Blood Urea Nitrogen 35 mg/dL (7-18) H Creatinine 1.2 MG/DL (0.55-1.30) Estimat Glomerular Filtration Rate 58.9 mL/min (>60) Glucose Level 111 MG/DL (74-106) #H Calcium Level 8.3 MG/DL (8.5-10.1) L Intake and Output 05/30/17 05/31/17 19:00 07:00 Intake Total 1275 ml Balance 1275 ml Intake Oral 1200 ml IV Total 75 ml # Voids 3 Objective PHYSICAL EXAMINATION: GENERAL: The patient awake, responsive, in no acute distress. HEAD AND NECK: Pupils are reactive to light. Extraocular movements are intact. Neck was supple. No JVD. LUNGS: Good air entry. No wheezing or rales. HEART: Reveals S1 and S2. Regular rhythm. No gallops. ABDOMEN: Soft, nondistended, and nontender. Positive bowel sounds. EXTREMITIES: No cyanosis, clubbing, or edema. NEUROLOGIC: Cranial nerves II through XII are grossly intact. Motor is 5/5 in all extremities. Gait is intact. Assessment/Plan Problem List: (1) Diabetes mellitus type 1, uncontrolled, insulin dependent Assessment & Plan: Labile; 66-427. Continue levemir and novolog sliding scale. See endocrinology note. (2) Hypoglycemia (3) HTN (hypertension) Assessment & Plan: Continue norvasc (4) ARF (acute renal failure) (5) GERD (gastroesophageal reflux disease) (6) Major depression Assessment & Plan: Continue remeron and lexapro. Status: progressing Assessment/Plan Discharge planning CHRISTOS JACOBSEN May 30, 2017 18:44
[2017-05-30 20:00] VITALS: BP 127/71
[2017-05-31] VITALS: BP 131/71
[2017-05-31 04:00] VITALS: BP 135/74
[2017-05-31] MEDS: Heparin 5000 units/ml inj SUBQ SCH ×3 (06:00→20:53)
[2017-05-31] MEDS: NovoLOG Insulin Flexpen SUBQ SCH ×7 (06:19→20:53)
[2017-05-31 07:19] LABS: ANION GAP 9 mmol/L (5-15); CALCIUM 8.6 MG/DL (8.5-10.1); CARBON DIOXIDE 28 MMOL/L (21-32); CHLORIDE 104 MMOL/L (98-107); CREATININE 1.1 MG/DL (0.55-1.30); GLOMERULAR FILTRATION RATE > 60 mL/min (>60); POTASSIUM 4.7 MMOL/L (3.5-5.1); SODIUM 141 MMOL/L (136-145)
[2017-05-31 07:28] LABS: BASOPHILS % (AUTO) 0.3 % (0.0-2.0); EOSINOPHILS % (AUTO) 2.3 % (0.0-3.0); LYMPHOCYTES % (AUTO) 37.5 % (20.0-45.0); MEAN CORPUSCULAR HGB CONC 30.4 G/DL (32.0-36.0); MEAN CORPUSCULAR VOLUME 102 FL (80-99); MEAN PLATELET VOLUME 7.8 FL (6.5-10.1); MONOCYTES % (AUTO) 4.4 % (1.0-10.0); NEUTROPHILS % (AUTO) 55.5 % (45.0-75.0); PLATELET COUNT 238 K/UL (150-450); RED BLOOD COUNT 2.91 M/UL (4.20-5.40); RED CELL DISTRIBUTION WIDTH 15.2 % (11.6-14.8); WHITE BLOOD COUNT 4.4 K/UL (4.8-10.8)
[2017-05-31 08:00] VITALS: BP 160/83
--- NOTE | 2017-05-31 08:37 | Pulmonology Progress Note ---
Assessment/Plan Assessment/Plan ASSESSMENT acute metabolic encephalopathy 2 to hypoglycemia -resolved hypoglycemia -resolved DM OOC Noncompliance HTN anemia of chronic disease GERD chronic kidney disease MDD Anxiety PLAN OF CARE MS floor on Levemir and Novolog as per endo per endo will initiate insulin pump as planned after dc psych follows psych med regimen optimized as per psych BP management with CCB and ARB, optimize further as needed DVT GI prophylaxis anemia w/up done on prev admission, c/w anemia of chronic disease, stool OB x 2 was negative, CEA WNL encourage compliance with medication regimen dc plan case discussed and evaluated by supervising physician Subjective Allergies: Coded Allergies: No Known Allergies (Unverified , 04/24/14) Subjective BS very labile, 433 this am and 66 last night mental status stable Objective Last 24 Hour Vital Signs Date Time Temp Pulse Resp B/P (MAP) Pulse Ox O2 Delivery O2 Flow Rate FiO2 05/31/17 04:00 98.8 88 18 135/74 95 05/31/17 04:00 Room Air 05/31/17 00:00 Room Air 05/31/17 00:00 98.9 77 18 131/71 94 05/30/17 20:00 98.2 74 20 127/71 95 05/30/17 20:00 Room Air 05/30/17 18:04 119/70 05/30/17 16:12 97.2 72 20 119/70 98 05/30/17 14:34 97.2 05/30/17 12:05 97.9 86 20 156/91 99 05/30/17 08:51 86 171/82 05/30/17 08:50 171/82 05/30/17 08:43 97.5 86 20 171/82 95 General Appearance: no acute distress HEENT: normocephalic, atraumatic, anicteric, mucous membranes moist Respiratory/Chest: lungs clear, normal breath sounds, no respiratory distress Cardiovascular: normal rate Abdomen: normal bowel sounds, soft, non tender, non distended Extremities: no edema, pedal pulses normal Neurologic/Psychiatric: no motor/sensory deficits, alert, oriented x 3, responsive Musculoskeletal: normal muscle bulk Laboratory Tests 05/31/17 06:10: White Blood Count 4.4L, Red Blood Count 2.91L, Hemoglobin 9.0L, Hematocrit 29.7L , Mean Corpuscular Volume 102H, Mean Corpuscular Hemoglobin 31.0, Mean Corpuscular Hemoglobin Concent 30.4L, Red Cell Distribution Width 15.2H, Platelet Count 238, Mean Platelet Volume 7.8, Neutrophils (%) (Auto) 55.5, Lymphocytes (%) (Auto) 37.5, Monocytes (%) (Auto) 4.4, Eosinophils (%) (Auto) 2.3, Basophils (%) (Auto) 0.3, Sodium Level 141, Potassium Level 4.7, Chloride Level 104, Carbon Dioxide Level 28, Anion Gap 9, Blood Urea Nitrogen 29H, Creatinine 1.1, Estimat Glomerular Filtration Rate > 60, Glucose Level 458#H, Calcium Level 8.6 Current Medications Medications (Trade) Dose Ordered Sig/Lizbeth Route PRN Reason Start Time Stop Time Status Last Admin Dose Admin Acetaminophen/ Hydrocodone Bitart ([place] 5/325) 1 tab Q4H PRN ORAL PAIN 4-10 05/26/17 10:00 06/02/17 09:59 05/30/17 23:44 Amlodipine Besylate (Norvasc) 10 mg DAILY ORAL 05/29/17 09:00 06/25/17 08:59 05/30/17 08:51 Clonidine HCl (Catapres) 0.1 mg Q4H PRN ORAL For High Blood Pressure 05/26/17 03:30 06/25/17 03:29 Dextrose (Dextrose 50%) STAT PRN IV Hypoglycemia 05/27/17 13:30 06/26/17 13:29 05/27/17 23:28 Escitalopram Oxalate (Lexapro) 20 mg DAILY ORAL 05/26/17 09:00 06/25/17 08:59 05/30/17 08:51 Heparin Sodium (Porcine) (Heparin 5000 units/ml) 5,000 units EVERY 8 HOURS SUBQ 05/26/17 14:00 06/25/17 13:59 05/29/17 06:07 Hydrochlorothiazide (Hydrodiuril) 25 mg DAILY ORAL 05/26/17 09:00 06/25/17 08:59 05/30/17 08:51 Ibuprofen (Motrin) 600 mg Q6H PRN ORAL Mild Pain (Pain Scale 1-3) 05/26/17 09:30 06/25/17 09:29 Insulin Aspart (NovoLOG) AFTERBREAKFAST SUBQ 05/28/17 10:00 06/27/17 09:59 Insulin Aspart (NovoLOG) BEFORE MEALS AND HS SUBQ 05/26/17 06:30 06/25/17 06:29 05/31/17 06:19 Insulin Aspart (NovoLOG) 4 units NOVOTIAC SUBQ 05/27/17 06:30 06/26/17 06:29 05/31/17 06:20 Insulin Detemir (Levemir) 15 units Q24H SUBQ 05/27/17 09:00 06/26/17 08:59 05/30/17 08:59 Irbesartan (Avapro) 150 mg BID ORAL 05/26/17 09:00 06/25/17 08:59 05/30/17 18:04 Meloxicam (Mobic) 15 mg DAILY ORAL 05/26/17 09:00 06/25/17 08:59 05/30/17 08:51 Mirtazapine (Remeron) 7.5 mg BEDTIME ORAL 05/26/17 21:00 06/25/17 20:59 05/30/17 20:34 Pantoprazole (Protonix) 40 mg DAILY ORAL 05/26/17 09:00 06/25/17 08:59 05/30/17 08:51 Pregabalin (Lyrica) 50 mg BID ORAL 05/27/17 09:00 06/26/17 08:59 05/30/17 18:04 Sodium Chloride 1,000 ml @ 75 mls/hr [id number] IV 05/30/17 11:00 06/29/17 10:59 05/31/17 00:03 Jossy Guzman NP ([facility]) May 31, 2017 08:37
[2017-05-31] MEDS: Meloxicam 15 MG TAB ORAL SCH (08:49)
[2017-05-31] MEDS: Irbesartan 150mg tablet ORAL SCH ×2 (08:49→17:41)
[2017-05-31] MEDS: Lyrica 50mg cap ORAL SCH ×2 (08:49→17:42)
[2017-05-31] MEDS: Levemir Flexpen SUBQ SCH (08:52)
[2017-05-31] MEDS: Norco 5mg/325mg tab ORAL PRN ×3 (08:57→18:47)
[2017-05-31 12:00] VITALS: BP 150/81
[2017-05-31 15:39] VITALS: BP 133/70
--- NOTE | 2017-05-31 19:29 | Internal Med Progress Note ---
Subjective Date of Service: May 31, 2017 Physician Name Christos Jacobsen Attending Physician Aries Hardin MD Current Medications Medications (Trade) Dose Ordered Sig/Lizbeth Route PRN Reason Start Time Stop Time Status Last Admin Dose Admin Acetaminophen/ Hydrocodone Bitart ([place] 5/325) 1 tab Q4H PRN ORAL PAIN 4-10 05/26/17 10:00 06/02/17 09:59 05/31/17 18:47 Amlodipine Besylate (Norvasc) 10 mg DAILY ORAL 05/29/17 09:00 06/25/17 08:59 05/31/17 08:54 Clonidine HCl (Catapres) 0.1 mg Q4H PRN ORAL For High Blood Pressure 05/26/17 03:30 06/25/17 03:29 Dextrose (Dextrose 50%) STAT PRN IV Hypoglycemia 05/27/17 13:30 06/26/17 13:29 05/27/17 23:28 Escitalopram Oxalate (Lexapro) 20 mg DAILY ORAL 05/26/17 09:00 06/25/17 08:59 05/31/17 08:49 Heparin Sodium (Porcine) (Heparin 5000 units/ml) 5,000 units EVERY 8 HOURS SUBQ 05/26/17 14:00 06/25/17 13:59 05/29/17 06:07 Hydrochlorothiazide (Hydrodiuril) 25 mg DAILY ORAL 05/26/17 09:00 06/25/17 08:59 05/31/17 08:49 Ibuprofen (Motrin) 600 mg Q6H PRN ORAL Mild Pain (Pain Scale 1-3) 05/26/17 09:30 06/25/17 09:29 Insulin Aspart (NovoLOG) AFTERBREAKFAST SUBQ 05/28/17 10:00 06/27/17 09:59 Insulin Aspart (NovoLOG) BEFORE MEALS AND HS SUBQ 05/26/17 06:30 06/25/17 06:29 05/31/17 14:12 Insulin Aspart (NovoLOG) 4 units NOVOTIAC SUBQ 05/27/17 06:30 06/26/17 06:29 05/31/17 17:38 Insulin Detemir (Levemir) 15 units Q24H SUBQ 05/27/17 09:00 06/26/17 08:59 05/31/17 08:52 Irbesartan (Avapro) 150 mg BID ORAL 05/26/17 09:00 06/25/17 08:59 05/31/17 17:41 Meloxicam (Mobic) 15 mg DAILY ORAL 05/26/17 09:00 06/25/17 08:59 05/31/17 08:49 Mirtazapine (Remeron) 7.5 mg BEDTIME ORAL 05/26/17 21:00 06/25/17 20:59 05/30/17 20:34 Pantoprazole (Protonix) 40 mg DAILY ORAL 05/26/17 09:00 06/25/17 08:59 05/31/17 08:49 Pregabalin (Lyrica) 50 mg BID ORAL 05/27/17 09:00 06/26/17 08:59 05/31/17 17:42 Sodium Chloride 1,000 ml @ 75 mls/hr [id number] IV 05/30/17 11:00 06/29/17 10:59 05/31/17 14:10 Allergies: Coded Allergies: No Known Allergies (Unverified , 04/24/14) ROS Limited/Unobtainable: No Constitutional: Reports: no symptoms HEENT: Reports: no symptoms Cardiovascular: Reports: no symptoms Respiratory: Reports: no symptoms Gastrointestinal/Abdominal: Reports: no symptoms Genitourinary: Reports: no symptoms Neurologic/Psychiatric: Reports: no symptoms Subjective 46 YO F with diabetes type I, admitted with hypoglycemia and altered mental status. Cover for Int Alejo-Dr Hardin Objective Last Vital Signs Date Time Temp Pulse Resp B/P (MAP) Pulse Ox O2 Delivery O2 Flow Rate FiO2 05/31/17 17:41 133/70 05/31/17 15:39 98.2 79 18 95 Room Air Laboratory Tests Test 05/31/17 06:10 White Blood Count 4.4 K/UL (4.8-10.8) L Red Blood Count 2.91 M/UL (4.20-5.40) L Hemoglobin 9.0 G/DL (12.0-16.0) L Hematocrit 29.7 % (37.0-47.0) L Mean Corpuscular Volume 102 FL (80-99) H Mean Corpuscular Hemoglobin 31.0 PG (27.0-31.0) Mean Corpuscular Hemoglobin Concent 30.4 G/DL (32.0-36.0) L Red Cell Distribution Width 15.2 % (11.6-14.8) H Platelet Count 238 K/UL (150-450) Mean Platelet Volume 7.8 FL (6.5-10.1) Neutrophils (%) (Auto) 55.5 % (45.0-75.0) Lymphocytes (%) (Auto) 37.5 % (20.0-45.0) Monocytes (%) (Auto) 4.4 % (1.0-10.0) Eosinophils (%) (Auto) 2.3 % (0.0-3.0) Basophils (%) (Auto) 0.3 % (0.0-2.0) Sodium Level 141 MMOL/L (136-145) Potassium Level 4.7 MMOL/L (3.5-5.1) Chloride Level 104 MMOL/L (98-107) Carbon Dioxide Level 28 MMOL/L (21-32) Anion Gap 9 mmol/L (5-15) Blood Urea Nitrogen 29 mg/dL (7-18) H Creatinine 1.1 MG/DL (0.55-1.30) Estimat Glomerular Filtration Rate > 60 mL/min (>60) Glucose Level 458 MG/DL (74-106) #H Calcium Level 8.6 MG/DL (8.5-10.1) Intake and Output 05/31/17 06/01/17 19:00 07:00 Intake Total 240 ml Balance 240 ml Intake Oral 240 ml Objective PHYSICAL EXAMINATION: GENERAL: The patient awake, responsive, in no acute distress. HEAD AND NECK: Pupils are reactive to light. Extraocular movements are intact. Neck was supple. No JVD. LUNGS: Good air entry. No wheezing or rales. HEART: Reveals S1 and S2. Regular rhythm. No gallops. ABDOMEN: Soft, nondistended, and nontender. Positive bowel sounds. EXTREMITIES: No cyanosis, clubbing, or edema. NEUROLOGIC: Cranial nerves II through XII are grossly intact. Motor is 5/5 in all extremities. Gait is intact. Assessment/Plan Problem List: (1) Diabetes mellitus type 1, uncontrolled, insulin dependent Assessment & Plan: Labile; 57-458. Continue levemir and novolog sliding scale. See endocrinology note. (2) Hypoglycemia (3) HTN (hypertension) Assessment & Plan: Continue norvasc (4) ARF (acute renal failure) (5) GERD (gastroesophageal reflux disease) (6) Major depression Assessment & Plan: Continue remeron and lexapro. Assessment/Plan Discharge planning CHRISTOS JACOBSEN May 31, 2017 19:29
[2017-05-31 20:00] VITALS: BP 139/79
[2017-06-01] VITALS: BP 136/77
[2017-06-01] MEDS: Norco 5mg/325mg tab ORAL PRN ×3 (05:21→19:23)
[2017-06-01] MEDS: Heparin 5000 units/ml inj SUBQ SCH ×3 (05:49→21:51)
[2017-06-01] MEDS: NovoLOG Insulin Flexpen SUBQ SCH ×8 (06:27→23:43)
--- NOTE | 2017-06-01 07:13 | General Progress Note ---
Assessment/Plan Problem List: (1) Non-compliance with treatment ICD Codes: Z91.19 - Non-compliance with treatment SNOMED: 6141147 (2) Uncontrolled diabetes mellitus ICD Codes: E11.65 - Type 2 diabetes mellitus with hyperglycemia SNOMED: 90225875, 061075694 (3) CKD (chronic kidney disease) ICD Codes: N18.9 - Chronic kidney disease, unspecified SNOMED: 634351265 (4) Hypertension ICD Codes: I10 - Essential (primary) hypertension SNOMED: 22995167 Assessment/Plan glucose very labile - Levermir 15 units qam - Novolog 4 units ac tid + SSI - initiate insulin pump therapy as OP as planned - [employer] rep (Ramila) has contacted her in order to set up a pump training date Subjective Allergies: Coded Allergies: No Known Allergies (Unverified , 04/24/14) All Systems: reviewed and negative except above Subjective feeling better glucose elevated this morning due to snack: sandwich and apple juice Objective Last 24 Hour Vital Signs Date Time Temp Pulse Resp B/P (MAP) Pulse Ox O2 Delivery O2 Flow Rate FiO2 06/01/17 00:00 97.5 77 18 136/77 97 Room Air 05/31/17 20:00 97.3 72 18 139/79 96 Room Air 05/31/17 17:41 133/70 05/31/17 15:39 98.2 79 18 133/70 95 Room Air 05/31/17 15:15 98.2 05/31/17 12:00 98.2 83 18 150/81 98 Room Air 05/31/17 08:54 88 135/74 05/31/17 08:49 135/74 05/31/17 08:00 98.8 95 18 160/83 99 Room Air Height (Feet): 5 Height (Inches): 2.00 Weight (Pounds): 122 General Appearance: no apparent distress Neck: non-tender Cardiovascular: normal rate Respiratory/Chest: lungs clear Abdomen: normal bowel sounds Edema: no edema noted Arm (L), no edema noted Arm (R), no edema noted Leg (L), no edema noted Leg (R), no edema noted Pedal (L), no edema noted Pedal (R), no edema noted Generalized Objective Current Medications Medications (Trade) Dose Ordered Sig/Lizbeth Route PRN Reason Start Time Stop Time Status Last Admin Dose Admin Acetaminophen/ Hydrocodone Bitart ([place] 5/325) 1 tab Q4H PRN ORAL PAIN 4-10 05/26/17 10:00 06/02/17 09:59 06/01/17 05:21 Amlodipine Besylate (Norvasc) 10 mg DAILY ORAL 05/29/17 09:00 06/25/17 08:59 05/31/17 08:54 Clonidine HCl (Catapres) 0.1 mg Q4H PRN ORAL For High Blood Pressure 05/26/17 03:30 06/25/17 03:29 Dextrose (Dextrose 50%) STAT PRN IV Hypoglycemia 05/27/17 13:30 06/26/17 13:29 05/27/17 23:28 Escitalopram Oxalate (Lexapro) 20 mg DAILY ORAL 05/26/17 09:00 06/25/17 08:59 05/31/17 08:49 Heparin Sodium (Porcine) (Heparin 5000 units/ml) 5,000 units EVERY 8 HOURS SUBQ 05/26/17 14:00 06/25/17 13:59 05/29/17 06:07 Hydrochlorothiazide (Hydrodiuril) 25 mg DAILY ORAL 05/26/17 09:00 06/25/17 08:59 05/31/17 08:49 Ibuprofen (Motrin) 600 mg Q6H PRN ORAL Mild Pain (Pain Scale 1-3) 05/26/17 09:30 06/25/17 09:29 Insulin Aspart (NovoLOG) AFTERBREAKFAST SUBQ 05/28/17 10:00 06/27/17 09:59 Insulin Aspart (NovoLOG) BEFORE MEALS AND HS SUBQ 05/26/17 06:30 06/25/17 06:29 06/01/17 06:27 Insulin Aspart (NovoLOG) 4 units NOVOTIAC SUBQ 05/27/17 06:30 06/26/17 06:29 06/01/17 06:28 Insulin Detemir (Levemir) 15 units Q24H SUBQ 05/27/17 09:00 06/26/17 08:59 05/31/17 08:52 Irbesartan (Avapro) 150 mg BID ORAL 05/26/17 09:00 06/25/17 08:59 05/31/17 17:41 Meloxicam (Mobic) 15 mg DAILY ORAL 05/26/17 09:00 06/25/17 08:59 05/31/17 08:49 Mirtazapine (Remeron) 7.5 mg BEDTIME ORAL 05/26/17 21:00 06/25/17 20:59 05/31/17 20:51 Pantoprazole (Protonix) 40 mg DAILY ORAL 05/26/17 09:00 06/25/17 08:59 05/31/17 08:49 Pregabalin (Lyrica) 50 mg BID ORAL 05/27/17 09:00 06/26/17 08:59 05/31/17 17:42 Sodium Chloride 1,000 ml @ 75 mls/hr [id number] IV 05/30/17 11:00 06/29/17 10:59 06/01/17 02:40 Item Value Date Time Bedside Blood Glucose 377 mg/dl H 06/01/17 0630 Bedside Blood Glucose 83 mg/dl 05/31/17 2100 Bedside Blood Glucose 57 mg/dl L 05/31/17 1738 Bedside Blood Glucose 352 mg/dl H 05/31/17 1412 Bedside Blood Glucose 433 mg/dl H 05/31/17 0852 IVY SULLIVAN Jun 01, 2017 07:13
[2017-06-01 07:49] LABS: BASOPHILS % (AUTO) 1.1 % (0.0-2.0); LYMPHOCYTES % (AUTO) 31.1 % (20.0-45.0); MEAN CORPUSCULAR HEMOGLOBIN 32.5 PG (27.0-31.0); MEAN CORPUSCULAR HGB CONC 32.1 G/DL (32.0-36.0); MEAN CORPUSCULAR VOLUME 101 FL (80-99); MEAN PLATELET VOLUME 8.6 FL (6.5-10.1); MONOCYTES % (AUTO) 4.8 % (1.0-10.0); PLATELET COUNT 235 K/UL (150-450); RED BLOOD COUNT 2.72 M/UL (4.20-5.40); RED CELL DISTRIBUTION WIDTH 15.5 % (11.6-14.8); WHITE BLOOD COUNT 6.1 K/UL (4.8-10.8)
[2017-06-01 08:00] VITALS: BP 141/80
[2017-06-01 08:17] LABS: ANION GAP 10 mmol/L (5-15); CALCIUM 8.6 MG/DL (8.5-10.1); CARBON DIOXIDE 26 MMOL/L (21-32); CHLORIDE 103 MMOL/L (98-107); CREATININE 1.3 MG/DL (0.55-1.30); GLOMERULAR FILTRATION RATE 53.7 mL/min (>60); POTASSIUM 4.4 MMOL/L (3.5-5.1); SODIUM 139 MMOL/L (136-145)
[2017-06-01] MEDS: Irbesartan 150mg tablet ORAL SCH ×2 (10:23→18:18)
[2017-06-01] MEDS: Meloxicam 15 MG TAB ORAL SCH (10:26)
[2017-06-01] MEDS: Lyrica 50mg cap ORAL SCH ×2 (10:26→18:19)
[2017-06-01] MEDS: Levemir Flexpen SUBQ SCH (10:29)
[2017-06-01 11:41] VITALS: BP 152/78
--- NOTE | 2017-06-01 12:42 | Pulmonology Progress Note ---
Assessment/Plan Assessment/Plan ASSESSMENT acute metabolic encephalopathy 2 to hypoglycemia -resolved hypoglycemia -resolved DM OOC Noncompliance HTN anemia of chronic disease GERD chronic kidney disease MDD Anxiety PLAN OF CARE MS floor on Levemir and Novolog as per endo per endo will initiate insulin pump as planned after dc psych follows psych med regimen optimized as per psych BP management with CCB and ARB, optimize further as needed DVT GI prophylaxis anemia w/up done on prev admission, c/w anemia of chronic disease, stool OB x 2 negative, CEA WNL encourage compliance with medication regimen dc plan per PMD and endo case discussed and evaluated by supervising physician Subjective Allergies: Coded Allergies: No Known Allergies (Unverified , 04/24/14) Subjective BS very labile, 57 before dinner yesterday, this am stable mental status stable Objective Last 24 Hour Vital Signs Date Time Temp Pulse Resp B/P (MAP) Pulse Ox O2 Delivery O2 Flow Rate FiO2 06/01/17 11:41 97.9 75 19 152/78 94 Room Air 06/01/17 10:34 76 145/81 06/01/17 10:23 145/81 06/01/17 08:00 97.0 86 19 141/80 95 Room Air 06/01/17 00:00 97.5 77 18 136/77 97 Room Air 05/31/17 20:00 97.3 72 18 139/79 96 Room Air 05/31/17 17:41 133/70 05/31/17 15:39 98.2 79 18 133/70 95 Room Air 05/31/17 15:15 98.2 Intake and Output 06/01/17 06/02/17 19:00 07:00 Intake Total 300 ml Balance 300 ml IV Total 300 ml Objective General Appearance: no acute distress HEENT: normocephalic, atraumatic, anicteric, mucous membranes moist Respiratory/Chest: lungs clear, normal breath sounds, no respiratory distress Cardiovascular: normal rate Abdomen: normal bowel sounds, soft, non tender, non distended Extremities: no edema, pedal pulses normal Neurologic/Psychiatric: no motor/sensory deficits, alert, oriented x 3, responsive Musculoskeletal: normal muscle bulk Laboratory Tests 06/01/17 06:50: White Blood Count 6.1, Red Blood Count 2.72L, Hemoglobin 8.8L, Hematocrit 27.6L , Mean Corpuscular Volume 101H, Mean Corpuscular Hemoglobin 32.5H, Mean Corpuscular Hemoglobin Concent 32.1, Red Cell Distribution Width 15.5H, Platelet Count 235, Mean Platelet Volume 8.6, Neutrophils (%) (Auto) 61.0, Lymphocytes (%) (Auto) 31.1, Monocytes (%) (Auto) 4.8, Eosinophils (%) (Auto) 2.0, Basophils (%) (Auto) 1.1, Sodium Level 139, Potassium Level 4.4, Chloride Level 103, Carbon Dioxide Level 26, Anion Gap 10, Blood Urea Nitrogen 30H, Creatinine 1.3, Estimat Glomerular Filtration Rate 53.7, Glucose Level 389H, Calcium Level 8.6 Current Medications Medications (Trade) Dose Ordered Sig/Lizbeth Route PRN Reason Start Time Stop Time Status Last Admin Dose Admin Acetaminophen/ Hydrocodone Bitart ([place] 5/325) 1 tab Q4H PRN ORAL PAIN 4-10 05/26/17 10:00 06/02/17 09:59 06/01/17 05:21 Amlodipine Besylate (Norvasc) 10 mg DAILY ORAL 05/29/17 09:00 06/25/17 08:59 06/01/17 10:34 Clonidine HCl (Catapres) 0.1 mg Q4H PRN ORAL For High Blood Pressure 05/26/17 03:30 06/25/17 03:29 Dextrose (Dextrose 50%) STAT PRN IV Hypoglycemia 05/27/17 13:30 06/26/17 13:29 05/27/17 23:28 Escitalopram Oxalate (Lexapro) 20 mg DAILY ORAL 05/26/17 09:00 06/25/17 08:59 06/01/17 10:25 Heparin Sodium (Porcine) (Heparin 5000 units/ml) 5,000 units EVERY 8 HOURS SUBQ 05/26/17 14:00 06/25/17 13:59 05/29/17 06:07 Hydrochlorothiazide (Hydrodiuril) 25 mg DAILY ORAL 05/26/17 09:00 06/25/17 08:59 06/01/17 10:25 Ibuprofen (Motrin) 600 mg Q6H PRN ORAL Mild Pain (Pain Scale 1-3) 05/26/17 09:30 06/25/17 09:29 Insulin Aspart (NovoLOG) AFTERBREAKFAST SUBQ 05/28/17 10:00 06/27/17 09:59 Insulin Aspart (NovoLOG) BEFORE MEALS AND HS SUBQ 05/26/17 06:30 06/25/17 06:29 06/01/17 12:16 Insulin Aspart (NovoLOG) 4 units NOVOTIAC SUBQ 05/27/17 06:30 06/26/17 06:29 06/01/17 12:17 Insulin Detemir (Levemir) 15 units Q24H SUBQ 05/27/17 09:00 06/26/17 08:59 06/01/17 10:29 Irbesartan (Avapro) 150 mg BID ORAL 05/26/17 09:00 06/25/17 08:59 06/01/17 10:23 Meloxicam (Mobic) 15 mg DAILY ORAL 05/26/17 09:00 06/25/17 08:59 06/01/17 10:26 Mirtazapine (Remeron) 7.5 mg BEDTIME ORAL 05/26/17 21:00 06/25/17 20:59 05/31/17 20:51 Pantoprazole (Protonix) 40 mg DAILY ORAL 05/26/17 09:00 06/25/17 08:59 06/01/17 10:26 Pregabalin (Lyrica) 50 mg BID ORAL 05/27/17 09:00 06/26/17 08:59 06/01/17 10:26 Sodium Chloride 1,000 ml @ 75 mls/hr [id number] IV 05/30/17 11:00 06/29/17 10:59 06/01/17 02:40 Jossy Guzman NP ([facility]) Jun 01, 2017 12:42
--- NOTE | 2017-06-01 15:53 | Internal Med Progress Note ---
Subjective Date of Service: Jun 01, 2017 Physician Name Christos Jacobsen Attending Physician Aries Hardin MD Current Medications Medications (Trade) Dose Ordered Sig/Lizbeth Route PRN Reason Start Time Stop Time Status Last Admin Dose Admin Acetaminophen/ Hydrocodone Bitart ([place] 5/325) 1 tab Q4H PRN ORAL PAIN 4-10 05/26/17 10:00 06/02/17 09:59 06/01/17 14:05 Amlodipine Besylate (Norvasc) 10 mg DAILY ORAL 05/29/17 09:00 06/25/17 08:59 06/01/17 10:34 Clonidine HCl (Catapres) 0.1 mg Q4H PRN ORAL For High Blood Pressure 05/26/17 03:30 06/25/17 03:29 Dextrose (Dextrose 50%) STAT PRN IV Hypoglycemia 05/27/17 13:30 06/26/17 13:29 05/27/17 23:28 Escitalopram Oxalate (Lexapro) 20 mg DAILY ORAL 05/26/17 09:00 06/25/17 08:59 06/01/17 10:25 Heparin Sodium (Porcine) (Heparin 5000 units/ml) 5,000 units EVERY 8 HOURS SUBQ 05/26/17 14:00 06/25/17 13:59 05/29/17 06:07 Hydrochlorothiazide (Hydrodiuril) 25 mg DAILY ORAL 05/26/17 09:00 06/25/17 08:59 06/01/17 10:25 Ibuprofen (Motrin) 600 mg Q6H PRN ORAL Mild Pain (Pain Scale 1-3) 05/26/17 09:30 06/25/17 09:29 Insulin Aspart (NovoLOG) AFTERBREAKFAST SUBQ 05/28/17 10:00 06/27/17 09:59 Insulin Aspart (NovoLOG) BEFORE MEALS AND HS SUBQ 05/26/17 06:30 06/25/17 06:29 06/01/17 12:16 Insulin Aspart (NovoLOG) 4 units NOVOTIAC SUBQ 05/27/17 06:30 06/26/17 06:29 06/01/17 12:17 Insulin Detemir (Levemir) 15 units Q24H SUBQ 05/27/17 09:00 06/26/17 08:59 06/01/17 10:29 Irbesartan (Avapro) 150 mg BID ORAL 05/26/17 09:00 06/25/17 08:59 06/01/17 10:23 Meloxicam (Mobic) 15 mg DAILY ORAL 05/26/17 09:00 06/25/17 08:59 06/01/17 10:26 Mirtazapine (Remeron) 7.5 mg BEDTIME ORAL 05/26/17 21:00 06/25/17 20:59 05/31/17 20:51 Pantoprazole (Protonix) 40 mg DAILY ORAL 05/26/17 09:00 06/25/17 08:59 06/01/17 10:26 Pregabalin (Lyrica) 50 mg BID ORAL 05/27/17 09:00 06/26/17 08:59 06/01/17 10:26 Sodium Chloride 1,000 ml @ 75 mls/hr [id number] IV 05/30/17 11:00 06/29/17 10:59 06/01/17 02:40 Allergies: Coded Allergies: No Known Allergies (Unverified , 04/24/14) ROS Limited/Unobtainable: No Constitutional: Reports: no symptoms HEENT: Reports: no symptoms Cardiovascular: Reports: no symptoms Respiratory: Reports: no symptoms Gastrointestinal/Abdominal: Reports: no symptoms Genitourinary: Reports: no symptoms Neurologic/Psychiatric: Reports: no symptoms Subjective 46 YO F with diabetes type I, admitted with hypoglycemia and altered mental status. Cover for Int Alejo-Dr Hardin Objective Last Vital Signs Date Time Temp Pulse Resp B/P (MAP) Pulse Ox O2 Delivery O2 Flow Rate FiO2 06/01/17 15:04 97.9 06/01/17 11:41 75 19 152/78 94 Room Air Laboratory Tests Test 06/01/17 06:50 White Blood Count 6.1 K/UL (4.8-10.8) Red Blood Count 2.72 M/UL (4.20-5.40) L Hemoglobin 8.8 G/DL (12.0-16.0) L Hematocrit 27.6 % (37.0-47.0) L Mean Corpuscular Volume 101 FL (80-99) H Mean Corpuscular Hemoglobin 32.5 PG (27.0-31.0) H Mean Corpuscular Hemoglobin Concent 32.1 G/DL (32.0-36.0) Red Cell Distribution Width 15.5 % (11.6-14.8) H Platelet Count 235 K/UL (150-450) Mean Platelet Volume 8.6 FL (6.5-10.1) Neutrophils (%) (Auto) 61.0 % (45.0-75.0) Lymphocytes (%) (Auto) 31.1 % (20.0-45.0) Monocytes (%) (Auto) 4.8 % (1.0-10.0) Eosinophils (%) (Auto) 2.0 % (0.0-3.0) Basophils (%) (Auto) 1.1 % (0.0-2.0) Sodium Level 139 MMOL/L (136-145) Potassium Level 4.4 MMOL/L (3.5-5.1) Chloride Level 103 MMOL/L (98-107) Carbon Dioxide Level 26 MMOL/L (21-32) Anion Gap 10 mmol/L (5-15) Blood Urea Nitrogen 30 mg/dL (7-18) H Creatinine 1.3 MG/DL (0.55-1.30) Estimat Glomerular Filtration Rate 53.7 mL/min (>60) Glucose Level 389 MG/DL (74-106) H Calcium Level 8.6 MG/DL (8.5-10.1) Intake and Output 06/01/17 06/02/17 19:00 07:00 Intake Total 900 ml Balance 900 ml Intake Oral 600 ml IV Total 300 ml Objective PHYSICAL EXAMINATION: GENERAL: The patient awake, responsive, in no acute distress. HEAD AND NECK: Pupils are reactive to light. Extraocular movements are intact. Neck was supple. No JVD. LUNGS: Good air entry. No wheezing or rales. HEART: Reveals S1 and S2. Regular rhythm. No gallops. ABDOMEN: Soft, nondistended, and nontender. Positive bowel sounds. EXTREMITIES: No cyanosis, clubbing, or edema. NEUROLOGIC: Cranial nerves II through XII are grossly intact. Motor is 5/5 in all extremities. Gait is intact. Assessment/Plan Problem List: (1) Diabetes mellitus type 1, uncontrolled, insulin dependent Assessment & Plan: Better Control . Continue levemir and novolog sliding scale. See endocrinology note. (2) Hypoglycemia (3) HTN (hypertension) Assessment & Plan: Continue norvasc (4) ARF (acute renal failure) (5) GERD (gastroesophageal reflux disease) (6) Major depression Assessment & Plan: Continue remeron and lexapro. Assessment/Plan Discharge planning CHRISTOS JACOBSEN Jun 01, 2017 15:53
[2017-06-01 16:00] VITALS: BP 119/66
[2017-06-01 18:22] VITALS: BP 151/89
[2017-06-01 20:00] VITALS: BP 159/87
[2017-06-02] VITALS: BP 115/57
[2017-06-02 04:00] VITALS: BP 133/72
[2017-06-02] MEDS: Heparin 5000 units/ml inj SUBQ SCH ×2 (06:00→14:00)
[2017-06-02] MEDS: NovoLOG Insulin Flexpen SUBQ SCH ×6 (06:12→16:37)
[2017-06-02] MEDS: Norco 5mg/325mg tab ORAL PRN (06:16)
[2017-06-02 07:43] LABS: ANION GAP 5 mmol/L (5-15); BASOPHILS % (AUTO) 1.3 % (0.0-2.0); CALCIUM 8.9 MG/DL (8.5-10.1); CARBON DIOXIDE 31 MMOL/L (21-32); CHLORIDE 104 MMOL/L (98-107); CREATININE 1.2 MG/DL (0.55-1.30); EOSINOPHILS % (AUTO) 3.3 % (0.0-3.0); GLOMERULAR FILTRATION RATE 58.9 mL/min (>60); LYMPHOCYTES % (AUTO) 40.7 % (20.0-45.0); MEAN CORPUSCULAR HEMOGLOBIN 31.1 PG (27.0-31.0); MEAN CORPUSCULAR HGB CONC 30.8 G/DL (32.0-36.0); MEAN CORPUSCULAR VOLUME 101 FL (80-99); MEAN PLATELET VOLUME 7.6 FL (6.5-10.1); MONOCYTES % (AUTO) 7.9 % (1.0-10.0); NEUTROPHILS % (AUTO) 46.8 % (45.0-75.0); PLATELET COUNT 260 K/UL (150-450); POTASSIUM 4.6 MMOL/L (3.5-5.1); RED BLOOD COUNT 2.96 M/UL (4.20-5.40); RED CELL DISTRIBUTION WIDTH 15.5 % (11.6-14.8); SODIUM 140 MMOL/L (136-145)
[2017-06-02] MEDS: Lyrica 50mg cap ORAL SCH ×2 (08:18→18:09)
[2017-06-02] MEDS: Meloxicam 15 MG TAB ORAL SCH (08:22)
[2017-06-02] MEDS: Irbesartan 150mg tablet ORAL SCH ×2 (08:29→18:09)
[2017-06-02 08:46] VITALS: BP 134/75
[2017-06-02] MEDS: Levemir Flexpen SUBQ SCH (09:21)
--- NOTE | 2017-06-02 09:41 | Pulmonology Progress Note ---
Assessment/Plan Assessment/Plan ASSESSMENT acute metabolic encephalopathy 2 to hypoglycemia -resolved hypoglycemia -resolved DM OOC Noncompliance HTN anemia of chronic disease GERD chronic kidney disease MDD Anxiety PLAN OF CARE MS floor on Levemir and Novolog as per endo per endo will initiate insulin pump as planned after dc psych follows psych med regimen optimized as per psych BP management with CCB and ARB, optimize further as needed DVT GI prophylaxis anemia w/up done on prev admission, c/w anemia of chronic disease, stool OB x 2 was negative, CEA WNL encourage compliance with medication regimen dc plan as per PMD case discussed and evaluated by supervising physician Subjective Allergies: Coded Allergies: No Known Allergies (Unverified , 04/24/14) Subjective BS still labile, mental status stable Objective Last 24 Hour Vital Signs Date Time Temp Pulse Resp B/P (MAP) Pulse Ox O2 Delivery O2 Flow Rate FiO2 06/02/17 08:46 98.2 75 19 134/75 95 Room Air 06/02/17 08:29 134/75 06/02/17 08:23 75 134/75 06/02/17 07:15 97.3 06/02/17 04:00 97.3 69 20 133/72 96 Room Air 06/02/17 00:00 96.8 72 18 115/57 91 Room Air 06/01/17 20:00 96.4 85 18 159/87 92 Room Air 06/01/17 18:22 83 151/89 06/01/17 18:18 151/89 06/01/17 16:00 98.2 81 18 119/66 93 Room Air 06/01/17 11:41 97.9 75 19 152/78 94 Room Air 06/01/17 10:34 76 145/81 06/01/17 10:23 145/81 Objective General Appearance: no acute distress HEENT: normocephalic, atraumatic, anicteric, mucous membranes moist Respiratory/Chest: lungs clear, normal breath sounds, no respiratory distress Cardiovascular: normal rate Abdomen: normal bowel sounds, soft, non tender, non distended Extremities: no edema, pedal pulses normal Neurologic/Psychiatric: no motor/sensory deficits, alert, oriented x 3, responsive Musculoskeletal: normal muscle bulk Laboratory Tests 06/02/17 04:55: White Blood Count 5.0, Red Blood Count 2.96L, Hemoglobin 9.2L, Hematocrit 29.9L , Mean Corpuscular Volume 101H, Mean Corpuscular Hemoglobin 31.1H, Mean Corpuscular Hemoglobin Concent 30.8L, Red Cell Distribution Width 15.5H, Platelet Count 260, Mean Platelet Volume 7.6, Neutrophils (%) (Auto) 46.8, Lymphocytes (%) (Auto) 40.7, Monocytes (%) (Auto) 7.9, Eosinophils (%) (Auto) 3.3H, Basophils (%) (Auto) 1.3, Sodium Level 140, Potassium Level 4.6, Chloride Level 104, Carbon Dioxide Level 31, Anion Gap 5, Blood Urea Nitrogen 34H, Creatinine 1.2, Estimat Glomerular Filtration Rate 58.9, Glucose Level 257#H, Calcium Level 8.9 Current Medications Medications (Trade) Dose Ordered Sig/Lizbeth Route PRN Reason Start Time Stop Time Status Last Admin Dose Admin Acetaminophen/ Hydrocodone Bitart ([place] 5/325) 1 tab Q4H PRN ORAL PAIN 4-10 05/26/17 10:00 06/02/17 09:59 06/02/17 06:16 Amlodipine Besylate (Norvasc) 10 mg DAILY ORAL 05/29/17 09:00 06/25/17 08:59 06/02/17 08:23 Clonidine HCl (Catapres) 0.1 mg Q4H PRN ORAL For High Blood Pressure 05/26/17 03:30 06/25/17 03:29 Dextrose (Dextrose 50%) STAT PRN IV Hypoglycemia 05/27/17 13:30 06/26/17 13:29 05/27/17 23:28 Escitalopram Oxalate (Lexapro) 20 mg DAILY ORAL 05/26/17 09:00 06/25/17 08:59 06/02/17 08:21 Heparin Sodium (Porcine) (Heparin 5000 units/ml) 5,000 units EVERY 8 HOURS SUBQ 05/26/17 14:00 06/25/17 13:59 05/29/17 06:07 Hydrochlorothiazide (Hydrodiuril) 25 mg DAILY ORAL 05/26/17 09:00 06/25/17 08:59 06/02/17 08:18 Ibuprofen (Motrin) 600 mg Q6H PRN ORAL Mild Pain (Pain Scale 1-3) 05/26/17 09:30 06/25/17 09:29 Insulin Aspart (NovoLOG) AFTERBREAKFAST SUBQ 05/28/17 10:00 06/27/17 09:59 Insulin Aspart (NovoLOG) BEFORE MEALS AND HS SUBQ 05/26/17 06:30 06/25/17 06:29 06/02/17 06:12 Insulin Aspart (NovoLOG) 4 units NOVOTIAC SUBQ 05/27/17 06:30 06/26/17 06:29 06/02/17 06:13 Insulin Detemir (Levemir) 15 units Q24H SUBQ 05/27/17 09:00 06/26/17 08:59 06/02/17 09:21 Irbesartan (Avapro) 150 mg BID ORAL 05/26/17 09:00 06/25/17 08:59 06/02/17 08:29 Meloxicam (Mobic) 15 mg DAILY ORAL 05/26/17 09:00 06/25/17 08:59 06/02/17 08:22 Mirtazapine (Remeron) 7.5 mg BEDTIME ORAL 05/26/17 21:00 06/25/17 20:59 06/01/17 20:58 Pantoprazole (Protonix) 40 mg DAILY ORAL 05/26/17 09:00 06/25/17 08:59 06/02/17 08:19 Pregabalin (Lyrica) 50 mg BID ORAL 05/27/17 09:00 06/26/17 08:59 06/02/17 08:18 Sodium Chloride 1,000 ml @ 75 mls/hr [id number] IV 05/30/17 11:00 06/29/17 10:59 06/02/17 06:16 [facility] system[facility] Valenzuela NP Jun 02, 2017 09:41
[2017-06-02 11:51] VITALS: BP 121/72
--- NOTE | 2017-06-02 15:34 | Internal Med Progress Note ---
Subjective Date of Service: Jun 02, 2017 Physician Name Anastacio Jacobsen Attending Physician Aries Hardin MD Current Medications Medications (Trade) Dose Ordered Sig/Lizbeth Route PRN Reason Start Time Stop Time Status Last Admin Dose Admin Amlodipine Besylate (Norvasc) 10 mg DAILY ORAL 05/29/17 09:00 06/25/17 08:59 06/02/17 08:23 Clonidine HCl (Catapres) 0.1 mg Q4H PRN ORAL For High Blood Pressure 05/26/17 03:30 06/25/17 03:29 Dextrose (Dextrose 50%) STAT PRN IV Hypoglycemia 05/27/17 13:30 06/26/17 13:29 05/27/17 23:28 Escitalopram Oxalate (Lexapro) 20 mg DAILY ORAL 05/26/17 09:00 06/25/17 08:59 06/02/17 08:21 Heparin Sodium (Porcine) (Heparin 5000 units/ml) 5,000 units EVERY 8 HOURS SUBQ 05/26/17 14:00 06/25/17 13:59 05/29/17 06:07 Hydrochlorothiazide (Hydrodiuril) 25 mg DAILY ORAL 05/26/17 09:00 06/25/17 08:59 06/02/17 08:18 Ibuprofen (Motrin) 600 mg Q6H PRN ORAL Mild Pain (Pain Scale 1-3) 05/26/17 09:30 06/25/17 09:29 Insulin Aspart (NovoLOG) AFTERBREAKFAST SUBQ 05/28/17 10:00 06/27/17 09:59 Insulin Aspart (NovoLOG) BEFORE MEALS AND HS SUBQ 05/26/17 06:30 06/25/17 06:29 06/02/17 06:12 Insulin Aspart (NovoLOG) 4 units NOVOTIAC SUBQ 05/27/17 06:30 06/26/17 06:29 06/02/17 06:13 Insulin Detemir (Levemir) 15 units Q24H SUBQ 05/27/17 09:00 06/26/17 08:59 06/02/17 09:21 Irbesartan (Avapro) 150 mg BID ORAL 05/26/17 09:00 06/25/17 08:59 06/02/17 08:29 Meloxicam (Mobic) 15 mg DAILY ORAL 05/26/17 09:00 06/25/17 08:59 06/02/17 08:22 Mirtazapine (Remeron) 7.5 mg BEDTIME ORAL 05/26/17 21:00 06/25/17 20:59 06/01/17 20:58 Pantoprazole (Protonix) 40 mg DAILY ORAL 05/26/17 09:00 06/25/17 08:59 06/02/17 08:19 Pregabalin (Lyrica) 50 mg BID ORAL 05/27/17 09:00 06/26/17 08:59 06/02/17 08:18 Sodium Chloride 1,000 ml @ 75 mls/hr [id number] IV 05/30/17 11:00 06/29/17 10:59 06/02/17 06:16 Allergies: Coded Allergies: No Known Allergies (Unverified , 04/24/14) ROS Limited/Unobtainable: No Constitutional: Reports: no symptoms HEENT: Reports: no symptoms Cardiovascular: Reports: no symptoms Respiratory: Reports: no symptoms Gastrointestinal/Abdominal: Reports: no symptoms Genitourinary: Reports: no symptoms Neurologic/Psychiatric: Reports: no symptoms Subjective 46 YO F with diabetes type I, admitted with hypoglycemia and altered mental status. Cover for Int Med-Dr Hardin Objective Last Vital Signs Date Time Temp Pulse Resp B/P (MAP) Pulse Ox O2 Delivery O2 Flow Rate FiO2 06/02/17 11:51 97.8 73 18 121/72 95 06/02/17 08:46 Room Air Laboratory Tests Test 06/02/17 04:55 White Blood Count 5.0 K/UL (4.8-10.8) Red Blood Count 2.96 M/UL (4.20-5.40) L Hemoglobin 9.2 G/DL (12.0-16.0) L Hematocrit 29.9 % (37.0-47.0) L Mean Corpuscular Volume 101 FL (80-99) H Mean Corpuscular Hemoglobin 31.1 PG (27.0-31.0) H Mean Corpuscular Hemoglobin Concent 30.8 G/DL (32.0-36.0) L Red Cell Distribution Width 15.5 % (11.6-14.8) H Platelet Count 260 K/UL (150-450) Mean Platelet Volume 7.6 FL (6.5-10.1) Neutrophils (%) (Auto) 46.8 % (45.0-75.0) Lymphocytes (%) (Auto) 40.7 % (20.0-45.0) Monocytes (%) (Auto) 7.9 % (1.0-10.0) Eosinophils (%) (Auto) 3.3 % (0.0-3.0) H Basophils (%) (Auto) 1.3 % (0.0-2.0) Sodium Level 140 MMOL/L (136-145) Potassium Level 4.6 MMOL/L (3.5-5.1) Chloride Level 104 MMOL/L (98-107) Carbon Dioxide Level 31 MMOL/L (21-32) Anion Gap 5 mmol/L (5-15) Blood Urea Nitrogen 34 mg/dL (7-18) H Creatinine 1.2 MG/DL (0.55-1.30) Estimat Glomerular Filtration Rate 58.9 mL/min (>60) Glucose Level 257 MG/DL (74-106) #H Calcium Level 8.9 MG/DL (8.5-10.1) Intake and Output 06/02/17 06/03/17 19:00 07:00 Intake Total 300 ml Balance 300 ml IV Total 300 ml Objective PHYSICAL EXAMINATION: GENERAL: The patient awake, responsive, in no acute distress. HEAD AND NECK: Pupils are reactive to light. Extraocular movements are intact. Neck was supple. No JVD. LUNGS: Good air entry. No wheezing or rales. HEART: Reveals S1 and S2. Regular rhythm. No gallops. ABDOMEN: Soft, nondistended, and nontender. Positive bowel sounds. EXTREMITIES: No cyanosis, clubbing, or edema. NEUROLOGIC: Cranial nerves II through XII are grossly intact. Motor is 5/5 in all extremities. Gait is intact. Assessment/Plan Problem List: (1) Diabetes mellitus type 1, uncontrolled, insulin dependent Assessment & Plan: Better Control . Continue levemir and novolog sliding scale. See endocrinology note. (2) Hypoglycemia (3) HTN (hypertension) Assessment & Plan: Continue norvasc (4) ARF (acute renal failure) (5) GERD (gastroesophageal reflux disease) (6) Major depression Assessment & Plan: Continue remeron and lexapro. Status: stable Assessment/Plan Discharge home today ANASTACIO JACOBSEN Jun 02, 2017 15:34
[2017-06-02 16:07] VITALS: BP 149/77
--- NOTE | 2017-06-02 16:54 | General Progress Note ---
Assessment/Plan Problem List: (1) Non-compliance with treatment ICD Codes: Z91.19 - Non-compliance with treatment SNOMED: 9904426 (2) Uncontrolled diabetes mellitus ICD Codes: E11.65 - Type 2 diabetes mellitus with hyperglycemia SNOMED: 61551212, 048716122 (3) CKD (chronic kidney disease) ICD Codes: N18.9 - Chronic kidney disease, unspecified SNOMED: 497587595 (4) Hypertension ICD Codes: I10 - Essential (primary) hypertension SNOMED: 03586012 Assessment/Plan glucose very labile but improved today - Levermir 15 units qam - Novolog 4 units ac tid + SSI - initiate insulin pump therapy as OP as planned - [employer] (Ramila) has contacted her in order to set up a pump training date Subjective Allergies: Coded Allergies: No Known Allergies (Unverified , 04/24/14) All Systems: reviewed and negative except above Subjective events noted Objective Last 24 Hour Vital Signs Date Time Temp Pulse Resp B/P (MAP) Pulse Ox O2 Delivery O2 Flow Rate FiO2 06/02/17 16:38 Room Air 06/02/17 16:07 98.0 72 18 149/77 95 06/02/17 11:51 97.8 73 18 121/72 95 06/02/17 08:46 98.2 75 19 134/75 95 Room Air 06/02/17 08:29 134/75 06/02/17 08:23 75 134/75 06/02/17 07:15 97.3 06/02/17 04:00 97.3 69 20 133/72 96 Room Air 06/02/17 00:00 96.8 72 18 115/57 91 Room Air 06/01/17 20:00 96.4 85 18 159/87 92 Room Air 06/01/17 18:22 83 151/89 06/01/17 18:18 151/89 Intake and Output 06/02/17 06/03/17 19:00 07:00 Intake Total 300 ml Balance 300 ml IV Total 300 ml Laboratory Tests 06/02/17 04:55: White Blood Count 5.0, Red Blood Count 2.96L, Hemoglobin 9.2L, Hematocrit 29.9L , Mean Corpuscular Volume 101H, Mean Corpuscular Hemoglobin 31.1H, Mean Corpuscular Hemoglobin Concent 30.8L, Red Cell Distribution Width 15.5H, Platelet Count 260, Mean Platelet Volume 7.6, Neutrophils (%) (Auto) 46.8, Lymphocytes (%) (Auto) 40.7, Monocytes (%) (Auto) 7.9, Eosinophils (%) (Auto) 3.3H, Basophils (%) (Auto) 1.3, Sodium Level 140, Potassium Level 4.6, Chloride Level 104, Carbon Dioxide Level 31, Anion Gap 5, Blood Urea Nitrogen 34H, Creatinine 1.2, Estimat Glomerular Filtration Rate 58.9, Glucose Level 257#H, Calcium Level 8.9 Height (Feet): 5 Height (Inches): 2.00 Weight (Pounds): 122 General Appearance: no apparent distress EENT: PERRL/EOMI Neck: non-tender Cardiovascular: normal rate Respiratory/Chest: chest wall non-tender Abdomen: normal bowel sounds Pelvis: normal external exam Edema: no edema noted Arm (L), no edema noted Arm (R), no edema noted Leg (L), no edema noted Leg (R), no edema noted Pedal (L), no edema noted Pedal (R), no edema noted Generalized Objective Current Medications Medications (Trade) Dose Ordered Sig/Lizbeth Route PRN Reason Start Time Stop Time Status Last Admin Dose Admin Amlodipine Besylate (Norvasc) 10 mg DAILY ORAL 05/29/17 09:00 06/25/17 08:59 06/02/17 08:23 Clonidine HCl (Catapres) 0.1 mg Q4H PRN ORAL For High Blood Pressure 05/26/17 03:30 06/25/17 03:29 Dextrose (Dextrose 50%) STAT PRN IV Hypoglycemia 05/27/17 13:30 06/26/17 13:29 05/27/17 23:28 Escitalopram Oxalate (Lexapro) 20 mg DAILY ORAL 05/26/17 09:00 06/25/17 08:59 06/02/17 08:21 Heparin Sodium (Porcine) (Heparin 5000 units/ml) 5,000 units EVERY 8 HOURS SUBQ 05/26/17 14:00 06/25/17 13:59 05/29/17 06:07 Hydrochlorothiazide (Hydrodiuril) 25 mg DAILY ORAL 05/26/17 09:00 06/25/17 08:59 06/02/17 08:18 Ibuprofen (Motrin) 600 mg Q6H PRN ORAL Mild Pain (Pain Scale 1-3) 05/26/17 09:30 06/25/17 09:29 06/02/17 16:09 Insulin Aspart (NovoLOG) AFTERBREAKFAST SUBQ 05/28/17 10:00 06/27/17 09:59 Insulin Aspart (NovoLOG) BEFORE MEALS AND HS SUBQ 05/26/17 06:30 06/25/17 06:29 06/02/17 06:12 Insulin Aspart (NovoLOG) 4 units NOVOTIAC SUBQ 05/27/17 06:30 06/26/17 06:29 06/02/17 06:13 Insulin Detemir (Levemir) 15 units Q24H SUBQ 05/27/17 09:00 06/26/17 08:59 06/02/17 09:21 Irbesartan (Avapro) 150 mg BID ORAL 05/26/17 09:00 06/25/17 08:59 06/02/17 08:29 Meloxicam (Mobic) 15 mg DAILY ORAL 05/26/17 09:00 06/25/17 08:59 06/02/17 08:22 Mirtazapine (Remeron) 7.5 mg BEDTIME ORAL 05/26/17 21:00 06/25/17 20:59 06/01/17 20:58 Pantoprazole (Protonix) 40 mg DAILY ORAL 05/26/17 09:00 06/25/17 08:59 06/02/17 08:19 Pregabalin (Lyrica) 50 mg BID ORAL 05/27/17 09:00 06/26/17 08:59 06/02/17 08:18 Sodium Chloride 1,000 ml @ 75 mls/hr [id number] IV 05/30/17 11:00 06/29/17 10:59 06/02/17 06:16 Item Value Date Time Bedside Blood Glucose 57 mg/dl L 06/02/17 1637 Bedside Blood Glucose 100 mg/dl 06/02/17 1150 Bedside Blood Glucose 103 mg/dl 06/02/17 0921 Bedside Blood Glucose 247 mg/dl H 06/02/17 0615 Bedside Blood Glucose 263 mg/dl H 06/01/17 2345 IVY SULLIVAN Jun 02, 2017 16:54
[2017-06-02 18:09] VITALS: BP 149/77
--- NOTE | 2017-06-04 08:22 | Discharge Summary ---
Discharge Summary Hospital Course Date of Admission May 25, 2017 at 23:53 Date of Discharge Jun 02, 2017 at 19:00 Admitting Diagnosis hypoglycemia HPI Tricia Carpio is a 46 year old female who was admitted on May 25, 2017 at 23: 53 for Hypoglycemia Hospital Course dc summary #[id number] Discharge Medications Continued Medications: Amlodipine Besylate (Norvasc) 5 Mg Tab 10 MG ORAL DAILY, #30 TAB Clonidine HCl (Clonidine HCl) 0.1 Mg Tablet 0.1 MG ORAL Q4H PRN, #30 TAB Escitalopram Oxalate* (Lexapro*) 20 Mg Tablet 20 MG ORAL DAILY, TAB Hydrochlorothiazide* (Hydrochlorothiazide*) 25 Mg Tablet 25 MG ORAL DAILY, TAB Hydrocodone Bit/Acetaminophen 5-325* (Fenton 5-325 Tablet*) 1 Each Tablet 1 TAB ORAL Q4H PRN for For Pain, TAB Ibuprofen* (Motrin*) 600 Mg Tablet 600 MG ORAL Q6H PRN for For Pain Insulin Aspart* (Novolog*) 100 Unit/1 Ml Insuln.pen 0 SUBQ BEFORE MEALS, #1 EA 0 Refills per sliding scale Insulin Degludec (Tresiba Flextouch U-100) 100 Unit/1 Ml Insuln.pen 15 UNIT SQ DAILY, EA Meloxicam* (Meloxicam*) 15 Mg Tablet 15 MG PO DAILY Mirtazapine* (Mirtazapine*) 15 Mg Tablet 7.5 MG ORAL BEDTIME for 30 Days, TAB Ondansetron Odt* (Zofran Odt*) 4 Mg Tab.rapdis 4 MG ORAL Q6H PRN for Nausea & Vomiting, #20 TAB 0 Refills Pantoprazole* (Protonix*) 40 Mg Tablet.dr 40 MG ORAL DAILY, TAB Pregabalin (Lyrica) 50 Mg Capsule 50 MG PO BID, #60 Valsartan (Diovan) 160 Mg Tablet 160 MG ORAL BID, #60 TAB Discontinued Medications: Insulin Aspart (Novolog Flexpen) 100 Unit/1 Ml Insuln.pen 0 UNITS SUBQ BEFORE MEALS AND HS for 30 Days, EA Insulin Detemir (Levemir Flexpen) 100 Unit/1 Ml Insuln.pen 15 UNITS SUBQ DAILY for 30 Days, EA Discharge Condition Upon Discharge: stable Discharge Disposition Patient was discharged to Home (01) Discharge Diagnoses: Thomas (Vanchina),Jossy PRADO Jun 04, 2017 08:22
--- NOTE | 2017-06-05 03:45 | Discharge Summary 2 SIG ---
DATE OF ADMISSION: 05/25/2017 DATE OF DISCHARGE: 06/02/2017 REASON FOR ADMISSION: 46-year-old female with past medical history significant for diabetes mellitus type 1, uncontrolled; hypertension; GERD; and chronic kidney disease, presented to the hospital after she was found with altered mental status. Glucose was in 20 to 30 as per the family member. The patient subsequently received glucose in route to the hospital. Her mental status improved.and she became more alert. Upon arrival in the emergency department, the patient denied any fever, chills, chest pain, nausea, vomiting, or dysuria. She reported not eating enough food and give herself a regular dose of insulin. Upon evaluation in ED, no leukocytosis. Stable hemoglobin and hematocrit. BUN -32 and creatinine -1.1. Glucose- 117 at that time. AST- 79 and ALT -58. Acetone level negative. Urinalysis revealed +2 protein, +1 glucose, negative for ketones, many nitrites, +1 leukocyte esterase, and 5 to 10 WBC. The patient was admitted with altered mental status secondary to toxic metabolic encephalopathy as a result of hypoglycemia, diabetes mellitus type 1, hypertension, chronic kidney disease, and GERD. HOSPITAL COURSE: The patient was admitted. The patient was started on aggressive IV hydration. Blood sugar management was provided initially with sliding scale of insulin. Endocrinology consult was requested. DVT prophylaxis provided. Blood sugar was quite labile and master rigger titrated antiglycemic regimen. The patient was on the Levemir and NovoLog. Psychiatrist seen the patient for depression and anxiety and optimized psychiatric medication regimen. Blood pressure was managed with calcium-channel ramona and ARB and was stable. Anemia workup was done on the previous admission and was consistent with anemia of chronic disease. Stool OB x2 at that time was negative. CEA was within normal limits. Renal parameters were closely monitored, electrolyte corrected as needed and nephrotoxics were avoided. The patient was encouraged on compliance with medication regimen. The patient was required to stay for few additional days since glucose was very labile until final titration was done. Per master rigger, the patient will be initiated on insulin pump therapy as outpatient. [employer] billing customer service representative was contacted in order to set up training date. Patient was encouraged on compliance with medication regimen and follow up as outpatient for training session . DISCHARGE DIAGNOSES: 1. Acute metabolic encephalopathy secondary to hypoglycemia, resolved. 2. Hypoglycemia, resolved. 3. Diabetes mellitus, out of control. 4. Noncompliance. 5. Hypertension 6. Chronic kidney disease. 7. Anemia of chronic disease. 8. Major depressive disorder. 9. Anxiety. 10. Gastroesophageal reflux disease. DISCHARGE MEDICATIONS: See medication reconciliation list. DISCHARGE INSTRUCTIONS: The patient was discharged home. Follow up with primary medical doctor and master rigger. Follow up with training date by [employer] to initiate insulin pump. Aries Hardin M.D. Jossy TorresSmallpox HospitalBianca N.PVenkatesh DR: Zechariah JOB#: [id number] CC: KRISTY
== END 2017-06-02 19:00 | disposition home or self-care (01) | DRG 637 ==
LOC: EDBD 22:50 → EMR 23:05 → EDBEDREQ 23:12 → 4E 23:53 → EDBEDREQ 05-26 00:02
DX: E10.649 Type 1 diabetes mellitus with hypoglycemia without coma (principal); G93.41 Metabolic encephalopathy; Z79.4 Long term (current) use of insulin; F32.9 Major depressive disorder, single episode, unspecified; F41.9 Anxiety disorder, unspecified; D63.8 Anemia in other chronic diseases classified elsewhere; K21.9 Gastro-esophageal reflux disease without esophagitis; I12.9 Hypertensive chronic kidney disease with stage 1 through stage 4 chronic kidney disease, or unspecified chronic kidney disease; E10.22 Type 1 diabetes mellitus with diabetic chronic kidney disease; N18.9 Chronic kidney disease, unspecified; Z91.19 Patient's noncompliance with other medical treatment and regimen
CPT/HCPCS: 36415; 71010; 80048; 80053; 81003; 82009; 82947; 82962; 83735; 84100; 84703; 85025; 87081; 99285; J1815; S5561

== ENCOUNTER 2017-07-15 08:01 | Emergency (ER) | payer OTHER ==
[~2017-07-15] VITALS: Ht 165.1 cm; Wt 63.5 kg
[~2017-07-15 08:01] MED LIST changes: +AMOXICILLIN500 MG ORAL; +HYDROCHLOROTHIA25 MG ORAL; +NORCO 5-325 TA1 EAC1 ORAL; +NOVOLOG100 UNIT/3 SUBQ; +TRESIBA FL100 UNIT/1 SQ
[2017-07-15] MEDS ORDERED: LISINOPRIL2.5 MG ORAL (08:03)
[2017-07-15 08:05] VITALS: BP 142/62
--- NOTE | 2017-07-15 08:22 | Emergency Room Report ---
History of Present Illness General Chief Complaint: Abnormal Labs Source: Patient, Medical Record, EMS Present Illness HPI 46-year-old female, history of diabetes with insulin pump, presenting with altered mental status and low glucose. EMS states that family member called, patient was altered, found her glucose to be 30 in the field, was given glucagon but not dextrose. Patient is currently awake alert, oriented x3, just states that she is cold. Her glucose is now 89. She is denying any fever chills chest pain shortness of breath or abdominal pain. Denies any recent drug use Allergies: Coded Allergies: No Known Allergies (Unverified , 04/24/14) Patient History Past Medical History: see triage record Past Surgical History: none Pertinent Family History: none Reviewed Nursing Documentation: PMH: Agreed, PSxH: Agreed Nursing Documentation-PMH Past Medical History: No History, Except For Hx Cardiac Problems: Yes Hx Hypertension: Yes Hx Pacemaker: No Hx Diabetes: Yes Hx Cancer: No Hx Gastrointestinal Problems: Yes - GERD Hx Neurological Problems: No Hx Concentration Difficulty: No Review of Systems All Other Systems: negative except mentioned in HPI Physical Exam Vital Signs Date Time Temp Pulse Resp B/P (MAP) Pulse Ox O2 Delivery O2 Flow Rate FiO2 07/15/17 07:59 98.1 67 16 153/82 98 Room Air Sp02 EP Interpretation: reviewed, normal General Appearance: alert, GCS 15, non-toxic, mild distress Head: normocephalic, atraumatic Eyes: bilateral eye normal inspection, bilateral eye PERRL, bilateral eye EOMI ENT: normal ENT inspection, normal pharynx, normal voice, moist mucus membranes Neck: normal inspection, full range of motion, supple Respiratory: normal inspection, lungs clear, normal breath sounds, no respiratory distress, no retraction, no wheezing, speaking full sentences, chest symmetrical Cardiovascular #1: normal inspection, regular rate, rhythm, normal capillary refill Cardiovascular #2: 2+ radial (R), 2+ radial (L) Gastrointestinal: normal inspection, non tender, soft, non-distended, no guarding Musculoskeletal: normal inspection, back normal, normal range of motion, non- tender Neurologic: normal inspection, alert, oriented x3, responsive, motor strength/ tone normal, sensory intact, normal gait, speech normal Psychiatric: normal inspection, judgement/insight normal, memory normal Skin: normal inspection, normal color, no rash, warm/dry, well hydrated, normal turgor Medical Decision Making Diagnostic Impression: Primary Impression: Hypoglycemia ER Course 46-year-old female, altered mental status, hypoglycemia Now currently awake alert oriented x3 DDX: Hypoglycemia Infectious cause Dehydration Plan: Obtain labs, ua, ucx, CXR, EKG Dextrose ER course: Patient has remained oriented x3 tolerated PO repeat BGM now >100 insulin pump was turned off upon arrival now bgm 433 I spoke to patient's bilingual operator, Dr. Yoon, he states that patient was just seen in the office last Saturday. Patient is not checking her glucose frequently and not so was unable to change settings. Patient is awake alert, not in acute distress, recommended returning on an insulin pump again and observe Patient's insulin pump has remained on for the last 2 hours accuchecks have been normal ~220 and 240 she has remained stable, awake, conversing with family at bedside will dc home Disposition: Patient is to be discharged to home. instructed to see Dr Yoon in 3-4 days without fail Please note that this Emergency Department Report was dictated using [employer] fine wire technology software, occasionally this can lead to erroneous entry secondary to interpretation by the dictation equipment EKG Diagnostic Results EP Interpretation: Yes Rate: normal Rhythm: NSR ST Segments: No acute changes ASA given to patient: No Rhythm Strip EP Interpretation: Yes Rate: 90 Rhythm: NSR, no PVCs, no ectopy Chest X-ray CXR: Ordered: Yes 1 view Indication: Altered mental status EP interpretation: Yes Interpretation: No consolidation, no effusion, no PTX, no acute cardiopulmonary disease Impression: No acute disease Electronically signed by Jaime Hoffman MD Laboratory Tests Test 07/15/17 08:35 07/15/17 12:30 White Blood Count 5.8 K/UL (4.8-10.8) Red Blood Count 4.09 M/UL (4.20-5.40) L Hemoglobin 12.3 G/DL (12.0-16.0) Hematocrit 39.8 % (37.0-47.0) Mean Corpuscular Volume 97 FL (80-99) Mean Corpuscular Hemoglobin 30.0 PG (27.0-31.0) Mean Corpuscular Hemoglobin Concent 30.8 G/DL (32.0-36.0) L Red Cell Distribution Width 14.0 % (11.6-14.8) Platelet Count 341 K/UL (150-450) Mean Platelet Volume 7.4 FL (6.5-10.1) Neutrophils (%) (Auto) % (45.0-75.0) Lymphocytes (%) (Auto) % (20.0-45.0) Monocytes (%) (Auto) % (1.0-10.0) Eosinophils (%) (Auto) % (0.0-3.0) Basophils (%) (Auto) % (0.0-2.0) Differential Total Cells Counted 100 Neutrophils % (Manual) 34 % (45-75) L Lymphocytes % (Manual) 54 % (20-45) H Monocytes % (Manual) 9 % (1-10) Eosinophils % (Manual) 3 % (0-3) Basophils % (Manual) 0 % (0-2) Band Neutrophils 0 % (0-8) Platelet Estimate Adequate Platelet Morphology Normal Red Blood Cell Morphology Normal Sodium Level 146 MMOL/L (136-145) H Potassium Level 4.5 MMOL/L (3.5-5.1) Chloride Level 105 MMOL/L (98-107) Carbon Dioxide Level 31 MMOL/L (21-32) Anion Gap 10 mmol/L (5-15) Blood Urea Nitrogen 22 mg/dL (7-18) H Creatinine 1.1 MG/DL (0.55-1.30) Estimate Glomerular Filtration Rate > 60 mL/min (>60) Glucose Level 191 MG/DL (74-106) H Calcium Level 9.6 MG/DL (8.5-10.1) Total Bilirubin 0.3 MG/DL (0.2-1.0) Aspartate Amino Transferase (AST) 38 U/L (15-37) H Alanine Aminotransferase (ALT) 53 U/L (12-78) Alkaline Phosphatase 103 U/L (46-116) Troponin I 0.000 ng/mL (0.000-0.056) Total Protein 8.3 G/DL (6.4-8.2) H Albumin 3.8 G/DL (3.4-5.0) Globulin 4.5 g/dL Albumin/Globulin Ratio 0.8 (1.0-2.7) L Urine Color Pale yellow Urine Appearance Clear Urine pH 6.5 (4.5-8.0) Urine Specific [place] 1.015 (1.005-1.035) Urine Protein 1+ (NEGATIVE) H Urine Glucose (UA) 4+ (NEGATIVE) H Urine Ketones Negative (NEGATIVE) Urine Occult Blood Negative (NEGATIVE) Urine Nitrite Negative (NEGATIVE) Urine Bilirubin Negative (NEGATIVE) Urine Urobilinogen Normal MG/DL (0.0-1.0) Urine Leukocyte Esterase 1+ (NEGATIVE) H Urine RBC 0-2 /HPF (0 - 2) Urine WBC 2-4 /HPF (0 - 2) Urine Squamous Epithelial Cells Few /LPF (NONE/OCC) Urine Bacteria Occasional /HPF (NONE) Urine Opiates Screen Pending Urine Barbiturates Screen Pending Phencyclidine (PCP) Screen Pending Urine Amphetamines Screen Pending Urine Benzodiazepines Screen Pending Urine Cocaine Screen Pending Urine Marijuana (THC) Screen Pending Last Vital Signs Date Time Temp Pulse Resp B/P (MAP) Pulse Ox O2 Delivery O2 Flow Rate FiO2 07/15/17 07:59 98.1 67 16 153/82 98 Room Air Disposition: HOME, SELF-CARE Condition: Improved Jaime Hoffman M.D. Jul 15, 2017 08:22
[2017-07-15 08:53] LABS: HEMATOCRIT 39.8 % (37.0-47.0); HEMOGLOBIN 12.3 G/DL (12.0-16.0); MEAN CORPUSCULAR VOLUME 97 FL (80-99); PLATELET COUNT 341 K/UL (150-450); RED BLOOD COUNT 4.09 M/UL (4.20-5.40); WHITE BLOOD COUNT 5.8 K/UL (4.8-10.8)
[2017-07-15 09:00] VITALS: BP 105/76
[2017-07-15 09:20] LABS: ANION GAP 10 mmol/L (5-15); BLOOD UREA NITROGEN 22 mg/dL (7-18); CALCIUM 9.6 MG/DL (8.5-10.1); CARBON DIOXIDE 31 MMOL/L (21-32); CHLORIDE 105 MMOL/L (98-107); CREATININE 1.1 MG/DL (0.55-1.30); POTASSIUM 4.5 MMOL/L (3.5-5.1); SODIUM 146 MMOL/L (136-145)
[2017-07-15 09:25] LABS: ALANINE AMINOTRANSFERASE 53 U/L (12-78); ALBUMIN 3.8 G/DL (3.4-5.0); ALBUMIN/GLOBULIN RATIO 0.8 (1.0-2.7); ALKALINE PHOSPHATASE 103 U/L (46-116); ASPARTATE AMINO TRANSFERASE 38 U/L (15-37); BILIRUBIN,TOTAL 0.3 MG/DL (0.2-1.0)
[2017-07-15] MEDS ORDERED: HUMALOG INSULIN PUMP (09:48)
--- NOTE | 2017-07-15 10:02 | Diagnostic Imaging Report ---
Indication: Chest pain Technique: One view of the chest Comparison: 05/27/2017 Findings: The heart is borderline enlarged. The lungs and pleural spaces are clear except for minimal left lateral basilar atelectasis Impression: Borderline cardiomegaly. No acute process
[2017-07-15 10:17] VITALS: BP 139/74
[2017-07-15 11:07] VITALS: BP 169/89
[2017-07-15 12:29] VITALS: BP 138/77
[2017-07-15 13:00] LABS: APPEARANCE,URINE CLEAR; BILIRUBIN, URINE NEGATIVE (NEGATIVE); COLOR,URINE PALE YELLOW; GLUCOSE, URINE (UA) 4+ (NEGATIVE); KETONES,URINE NEGATIVE (NEGATIVE); LEUKOCYTE ESTERASE ,URINE 1+ (NEGATIVE); NITRITE,URINE NEGATIVE (NEGATIVE); PH,URINE 6.5 (4.5-8.0); PROTEIN,URINE 1+ (NEGATIVE); UROBILINOGEN,URINE NORMAL MG/DL (0.0-1.0)
[2017-07-15 14:14] VITALS: BP 147/74
--- NOTE | 2017-07-17 19:22 | Cardiology Report ---
APPROVED REPORT EKG Measurement Heart [id number] Normal sinus rhythm Cannot rule out Anterior infarct, age undetermined Abnormal ECG
== END 2017-07-15 14:19 | disposition home or self-care (01) ==
LOC: EDBD 08:01 → EMR 08:31
DX: E11.649 Type 2 diabetes mellitus with hypoglycemia without coma (principal); R41.82 Altered mental status, unspecified; I10 Essential (primary) hypertension; K21.9 Gastro-esophageal reflux disease without esophagitis
CPT/HCPCS: 36415; 71045; 80053; 80307; 81003; 82962; 84484; 85007; 85025; 93005; 99284

== ENCOUNTER 2017-08-06 09:37 | Inpatient (IN) | payer OTHER ==
[~2017-08-06] VITALS: Ht 154.9 cm; Wt 49.9 kg
[~2017-08-06 09:37] MED LIST changes: +HUMALOG INSULIN PUMP; +LISINOPRIL2.5 MG ORAL
[2017-08-06 09:59] VITALS: BP 120/63
[2017-08-06 10:24] LABS: HEMATOCRIT 41.3 % (37.0-47.0); HEMOGLOBIN 13.3 G/DL (12.0-16.0); MEAN CORPUSCULAR VOLUME 94 FL (80-99); PLATELET COUNT 347 K/UL (150-450); RED BLOOD COUNT 4.37 M/UL (4.20-5.40); RED CELL DISTRIBUTION WIDTH 13.5 % (11.6-14.8)
[2017-08-06 10:43] LABS: ANION GAP 16 mmol/L (5-15); BLOOD UREA NITROGEN 35 mg/dL (7-18); CALCIUM 9.5 MG/DL (8.5-10.1); CARBON DIOXIDE 24 MMOL/L (21-32); CHLORIDE 92 MMOL/L (98-107); CREATININE 2.2 MG/DL (0.55-1.30); SODIUM 132 MMOL/L (136-145)
[2017-08-06] MEDS ORDERED: Acetaminophen 500mg (ES) tab ORAL ONE (10:45)
[2017-08-06 10:53] LABS: ALANINE AMINOTRANSFERASE 44 U/L (12-78); ALBUMIN 4.1 G/DL (3.4-5.0); ALBUMIN/GLOBULIN RATIO 0.8 (1.0-2.7); ALKALINE PHOSPHATASE 108 U/L (46-116); ASPARTATE AMINO TRANSFERASE 37 U/L (15-37); BILIRUBIN,TOTAL 1.2 MG/DL (0.2-1.0)
[2017-08-06 10:54] LABS: BILIRUBIN,DIRECT 0.1 MG/DL (0.0-0.3)
--- NOTE | 2017-08-06 10:58 | Emergency Room Report ---
History of Present Illness General Chief Complaint: General Complaint Source: Patient Present Illness HPI 46-year-old female, history of diabetes, presenting with nausea and vomiting for 2 days. Also stating that her blood sugar is high. When 6 episodes of nonbilious nonbloody vomiting. Associated with epigastric pain. No diarrhea. No fever no chills has been compliant with her insulin Allergies: Coded Allergies: No Known Allergies (Unverified , 04/24/14) Patient History Past Medical History: see triage record Past Surgical History: none Pertinent Family History: none Last Menstrual Period: Mirena IUD Now: No Reviewed Nursing Documentation: PMH: Agreed, PSxH: Agreed Nursing Documentation-PMH Hx Hypertension: Yes Hx Pacemaker: No Hx Diabetes: Yes Hx Cancer: No Hx Gastrointestinal Problems: Yes - GERD Hx Neurological Problems: No Hx Concentration Difficulty: No Review of Systems All Other Systems: negative except mentioned in HPI Physical Exam Vital Signs Date Time Temp Pulse Resp B/P (MAP) Pulse Ox O2 Delivery O2 Flow Rate FiO2 08/06/17 09:42 97.8 103 20 120/63 99 Room Air 97.9 Sp02 EP Interpretation: reviewed, normal General Appearance: alert, GCS 15, non-toxic, mild distress Head: normocephalic, atraumatic Eyes: bilateral eye normal inspection, bilateral eye PERRL, bilateral eye EOMI ENT: normal ENT inspection, normal pharynx, normal voice, moist mucus membranes Neck: normal inspection, full range of motion, supple Respiratory: normal inspection, lungs clear, normal breath sounds, no respiratory distress, no retraction, no wheezing, speaking full sentences, chest symmetrical Cardiovascular #1: normal inspection, regular rate, rhythm, no edema, normal capillary refill Cardiovascular #2: 2+ radial (R), 2+ radial (L) Gastrointestinal: normal inspection, non tender, soft, non-distended, no guarding Musculoskeletal: normal inspection, back normal, normal range of motion, non- tender Neurologic: normal inspection, alert, oriented x3, responsive, motor strength/ tone normal, sensory intact, normal gait, speech normal Psychiatric: normal inspection, judgement/insight normal, memory normal Skin: normal inspection, normal color, no rash, warm/dry, well hydrated, normal turgor Medical Decision Making Diagnostic Impression: Primary Impression: Intractable nausea and vomiting Additional Impressions: Hyperglycemia Hypotension ER Course 46-year-old female with nausea vomiting and epigastric pain DDX: Gastritis, cholecystitis, DKA, UT Abdomen very soft and nontender, no CT at this time Plan: Obtain labs, ua, IV fluids ER course: Patient has been monitored during ED stay given fluids zofran no further vomiting episodes no DKA on labs +acute renal failure borderline hypotension given fluids Disposition: Patient is to be admitted to [facility] D/W hospitalist Dr Hardin Please note that this Emergency Department Report was dictated using [employer] trainee technology software, occasionally this can lead to erroneous entry secondary to interpretation by the dictation equipment. Rhythm Strip EP Interpretation: Yes Rate: 86 Rhythm: NSR, no PVCs, no ectopy EKG Diagnostic Results EP Interpretation: Yes Rate: normal Rhythm: NSR ST Segments:prolonged QT ASA given to patient: No Laboratory Tests Test 08/06/17 10:09 08/06/17 11:39 White Blood Count 12.0 K/UL (4.8-10.8) H Red Blood Count 4.37 M/UL (4.20-5.40) Hemoglobin 13.3 G/DL (12.0-16.0) Hematocrit 41.3 % (37.0-47.0) Mean Corpuscular Volume 94 FL (80-99) Mean Corpuscular Hemoglobin 30.3 PG (27.0-31.0) Mean Corpuscular Hemoglobin Concent 32.1 G/DL (32.0-36.0) Red Cell Distribution Width 13.5 % (11.6-14.8) Platelet Count 347 K/UL (150-450) Mean Platelet Volume 8.6 FL (6.5-10.1) Neutrophils (%) (Auto) % (45.0-75.0) Lymphocytes (%) (Auto) % (20.0-45.0) Monocytes (%) (Auto) % (1.0-10.0) Eosinophils (%) (Auto) % (0.0-3.0) Basophils (%) (Auto) % (0.0-2.0) Differential Total Cells Counted 100 Neutrophils % (Manual) 90 % (45-75) H Lymphocytes % (Manual) 6 % (20-45) L Monocytes % (Manual) 4 % (1-10) Eosinophils % (Manual) 0 % (0-3) Basophils % (Manual) 0 % (0-2) Band Neutrophils 0 % (0-8) Platelet Estimate Adequate Platelet Morphology Normal Red Blood Cell Morphology Normal Sodium Level 132 MMOL/L (136-145) L Potassium Level 4.0 MMOL/L (3.5-5.1) Chloride Level 92 MMOL/L (98-107) L Carbon Dioxide Level 24 MMOL/L (21-32) Anion Gap 16 mmol/L (5-15) H Blood Urea Nitrogen 35 mg/dL (7-18) H Creatinine 2.2 MG/DL (0.55-1.30) H Estimate Glomerular Filtration Rate 29.2 mL/min (>60) Glucose Level 361 MG/DL (74-106) H Calcium Level 9.5 MG/DL (8.5-10.1) Total Bilirubin 1.2 MG/DL (0.2-1.0) H Direct Bilirubin 0.1 MG/DL (0.0-0.3) Aspartate Amino Transferase (AST) 37 U/L (15-37) Alanine Aminotransferase (ALT) 44 U/L (12-78) Alkaline Phosphatase 108 U/L (46-116) Total Protein 9.1 G/DL (6.4-8.2) H Albumin 4.1 G/DL (3.4-5.0) Globulin 5.0 g/dL Albumin/Globulin Ratio 0.8 (1.0-2.7) L Lipase 143 U/L (73-393) Acetone Level Positive-small (NEGATIVE) Arterial Blood pH 7.375 (7.350-7.450) Arterial Blood Partial Pressure CO2 38.0 mmHg (35.0-45.0) Arterial Blood Partial Pressure O2 74.1 mmHg (75.0-100.0) L Arterial Blood HCO3 21.7 mmol/L (22.0-26.0) L Arterial Blood Oxygen Saturation 94.7 % (92.0-98.0) Arterial Blood Base Excess -3.1 Pierre Test Positive Last Vital Signs Date Time Temp Pulse Resp B/P (MAP) Pulse Ox O2 Delivery O2 Flow Rate FiO2 08/06/17 10:42 97.9 08/06/17 09:59 20 120/63 99 Room Air 08/06/17 09:42 103 Disposition: ADMITTED INPATIENT Condition: Serious Referrals: Aries Hardin MD (PCP) Jaime Hoffman M.D.b 20, 2018 10:58
[2017-08-06 12:34] VITALS: BP 85/37
[2017-08-06 13:17] VITALS: BP 92/34
--- NOTE | 2017-08-06 13:26 | Diagnostic Imaging Report ---
Indication: Chest pain Technique: One view of the chest Comparison: 07/15/2017 Findings: Better inspiration currently. The heart remains borderline enlarged. Lungs and pleural spaces are clear. Impression: Borderline cardiomegaly. No acute process
[2017-08-06] MEDS ORDERED: Miralax 17gm pkt ORAL PRN (15:00)
[2017-08-06] MEDS ORDERED: Mylanta II UD 30ml ORAL PRN (15:00)
[2017-08-06] MEDS ORDERED: Nitroglycerin Subl 0.4mg tab SL PRN (15:00)
[2017-08-06] MEDS ORDERED: Ketorolac 30mg Inj IV PRN (15:00)
[2017-08-06] MEDS: Morphine Sulfate 4mg/ml Inj IVP PRN (15:43)
[2017-08-06 16:00] VITALS: BP 91/41
[2017-08-06] MEDS: NovoLOG Insulin Flexpen SUBQ SCH ×2 (16:52→22:39)
--- NOTE | 2017-08-06 16:59 | History & Physical ---
History and Physical History & Physicial Dictated for Int Med-Dr Hardin no. [id number]. CHRISTOS JACOBSEN Aug 06, 2017 16:59
--- NOTE | 2017-08-06 17:46 | Consultation ---
Consult Note Consult Note asked to eval for renal failure- known to me from previous admissions 46-year-old female, history of diabetes, presenting with nausea and vomiting for 2 days. Also stating that her blood sugar is high. When 6 episodes of nonbilious nonbloody vomiting. Associated with epigastric pain. No diarrhea. No fever no chills has been compliant with her insulin Now: No Hx Hypertension: Yes Hx Diabetes: Yes Hx Gastrointestinal Problems: Yes - GERD examined data reviewed Assessment/Plan Renal failure ? acute- ? underlying diabetic kidney disease - Nausea with vomiting. - Hyperglycemia. - Diabetes type 1. - Hyponatremia. - Hypertension. presents with hypotension - Diabetic nephropathy. - Gastroesophageal reflux disease. Plan: IV fluids ordered monitor renal parameters Keep BP over 100 syst Keep BS in check avoid nephrotoxics KYMBERLY SEAMAN Aug 06, 2017 17:46
[2017-08-06 20:00] VITALS: BP 112/58
[2017-08-06] MEDS ORDERED: Levemir Flexpen SUBQ ONE (21:00)
[2017-08-06] MEDS: Heparin 5000 units/ml inj SUBQ SCH (21:00)
--- NOTE | 2017-08-06 22:15 | History and Physical Report ---
DATE OF ADMISSION: 08/06/2017 CHIEF COMPLAINT: The patient is a 46-year-old female with history of type 1 diabetes, presents with a chief complaint of nausea, vomiting, and hyperglycemia. HISTORY OF PRESENT ILLNESS: The patient was admitted to [facility] in May 2017. Please see history and physical and discharge summary dictated at that time. The patient states history of the present illness began approximately one-half days ago. The patient states her insulin pump, "must not be working." The patient states her blood sugars have been running high for the past [id number]-half. The patient began to experience nausea and vomiting. The patient presented to [place] emergency room. Initial blood sugar in the emergency room was 361. The patient is admitted for hyperglycemia to rule out diabetic ketoacidosis. PAST MEDICAL HISTORY: Significant for, 1. Type 1 diabetes. 2. Hypertension. 3. Gastroesophageal reflux disease. 4. Diabetic nephropathy. 5. History of pancreatitis. PAST SURGICAL HISTORY: The patient denies. CURRENT MEDICATIONS: 1. Lantus insulin 18 units subcutaneously q.a.m. 2. Norvasc 10 mg p.o. daily. 3. Lexapro 20 mg p.o. daily. 4. Hydrochlorothiazide 25 mg p.o. daily. 5. Regular insulin sliding scale per insulin pump. 6. Tresiba 15 units subcutaneously daily. 7. Meloxicam 15 mg p.o. daily. 8. Protonix 40 mg p.o. daily. 9. Lyrica 50 mg p.o. twice daily. 10. Diovan 160 mg p.o. twice daily. ALLERGIES: No known drug allergies. SOCIAL HISTORY: The patient is single and lives with her aunt. 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 The patient denies tobacco use. The patient admits to social alcohol use. PHYSICAL EXAMINATION: VITAL SIGNS: Temperature 97.9, respirations 20, pulse 103, and blood pressure 120/63. GENERAL: The patient is a well-developed and well-nourished female, who is in moderate distress. HEENT: Eyes, pupils equal and responsive to light and accommodation. Extraocular movements are intact. NECK: Supple without lymphadenopathy. CHEST: Lungs are clear to auscultation bilaterally without wheezes or rales. CARDIOVASCULAR: Regular rhythm and rate. S1 and S2 are normal without murmurs, rubs, or gallops. ABDOMEN: Soft, nontender, and nondistended. Positive bowel sounds. No evidence of hepatosplenomegaly. Currently, no rebound or guarding noted. EXTREMITIES: Negative for clubbing, cyanosis, or edema. RECTAL/GENITAL: Refused. NEUROLOGIC: Cranial nerves II through XII are grossly intact without focal deficits. Motor strength is 5/5 bilaterally. Deep tendon reflexes are 2+ plantar. LABORATORY STUDIES: WBC 12.3, hemoglobin 13.3, hematocrit 41.3, and platelets 347,000. Sodium 132, potassium 4.0, chloride 92, CO2 24, BUN 35, creatinine 2.2, and glucose 361. Serum lipase was normal at 143. ASSESSMENT: This is a 46-year-old female. 1. Nausea with vomiting. 2. Hyperglycemia. 3. Diabetes type 1. 4. Hyponatremia. 5. Acute on chronic renal failure. 6. Hypertension. 7. Diabetic nephropathy. 8. Gastroesophageal reflux disease. TREATMENT: 1. Diabetes type 1/hyperglycemia. An Endocrinology consultation has been obtained with Dr. Hayes. The patient has been started on NovoLog sliding scale. We will follow recommendations of Endocrinology. 2. Hyponatremia. This is probably secondary to hyperglycemia as above. The patient is currently receiving intravenous fluids. 3. Acute on chronic renal failure. The patient has a history of diabetic nephropathy. A Nephrology consultation was obtained with Dr. Styles. 4. Hypertension. Continue Diovan, amlodipine, and hydrochlorothiazide as above. 5. Diabetic nephropathy. 6. Gastroesophageal reflux disease. Anastacio Wright M.D. DR: CRISTIANA JOB#: [id number] CC:
[2017-08-07] VITALS (7 sets, daily range): BP systolic 80–146; BP diastolic 40–78
[2017-08-07 01:05] LABS: BILIRUBIN, URINE NEGATIVE (NEGATIVE); COLOR,URINE PALE YELLOW; GLUCOSE, URINE (UA) 4+ (NEGATIVE); KETONES,URINE 3+ (NEGATIVE); LEUKOCYTE ESTERASE ,URINE 1+ (NEGATIVE); NITRITE,URINE NEGATIVE (NEGATIVE); PH,URINE 5 (4.5-8.0); PROTEIN,URINE 2+ (NEGATIVE); UROBILINOGEN,URINE NORMAL MG/DL (0.0-1.0)
[2017-08-07 01:16] LABS: APPEARANCE,URINE CLOUDY
[2017-08-07] MEDS: Morphine Sulfate 4mg/ml Inj IVP PRN ×3 (01:44→22:54)
--- NOTE | 2017-08-07 05:46 | General Progress Note ---
Assessment/Plan Problem List: (1) Diabetes mellitus type 1, uncontrolled, insulin dependent ICD Codes: E10.65 - Type 1 diabetes mellitus with hyperglycemia SNOMED: 69552925, 540364894 (2) GERD (gastroesophageal reflux disease) ICD Codes: K21.9 - Gastro-esophageal reflux disease without esophagitis SNOMED: 334990290 (3) Anemia ICD Codes: D64.9 - Anemia, unspecified SNOMED: 757133118 Assessment/Plan discontinue insulin pump start Levemir and Novolog regimen will contact [employer] in order to trouble shoot the pump follow am labs - pending continue iV hydration Subjective Allergies: Coded Allergies: No Known Allergies (Unverified , 04/24/14) All Systems: reviewed and negative except above Subjective patient is well known to me on insulin pump therapy as OP Objective Last 24 Hour Vital Signs Date Time Temp Pulse Resp B/P (MAP) Pulse Ox O2 Delivery O2 Flow Rate FiO2 08/07/17 00:00 97.9 89 20 115/48 99 97.9 08/06/17 20:00 97.8 87 21 112/58 96 97.8 08/06/17 16:13 98.2 08/06/17 16:00 98.2 100 20 91/41 100 98.2 08/06/17 14:09 98.7 20 92/34 99 Room Air 98.7 08/06/17 13:17 98.7 20 92/34 99 Room Air 98.7 08/06/17 12:34 99.4 20 85/37 99 Room Air 99.4 08/06/17 11:36 97.9 08/06/17 10:42 97.9 08/06/17 09:59 97.9 20 120/63 99 Room Air 97.9 08/06/17 09:42 97.8 103 20 120/63 99 Room Air 97.9 Intake and Output 08/06/17 08/07/17 19:00 07:00 Intake Total 220 ml 900 ml Balance 220 ml 900 ml Intake Oral 120 ml IV Total 100 ml 900 ml # Voids 1 Laboratory Tests 08/06/17 10:09: White Blood Count 12.0H, Red Blood Count 4.37, Hemoglobin 13.3, Hematocrit 41.3 , Mean Corpuscular Volume 94, Mean Corpuscular Hemoglobin 30.3, Mean Corpuscular Hemoglobin Concent 32.1, Red Cell Distribution Width 13.5, Platelet Count 347, Mean Platelet Volume 8.6, Neutrophils (%) (Auto) , Lymphocytes (%) ( Auto) , Monocytes (%) (Auto) , Eosinophils (%) (Auto) , Basophils (%) (Auto) , Differential Total Cells Counted 100, Neutrophils % (Manual) 90H, Lymphocytes % (Manual) 6L, Monocytes % (Manual) 4, Eosinophils % (Manual) 0, Basophils % ( Manual) 0, Band Neutrophils 0, Platelet Estimate Adequate, Platelet Morphology Normal, Red Blood Cell Morphology Normal, Sodium Level 132L, Potassium Level 4.0 , Chloride Level 92L, Carbon Dioxide Level 24, Anion Gap 16H, Blood Urea Nitrogen 35H, Creatinine 2.2H, Estimat Glomerular Filtration Rate 29.2, Glucose Level 361H, Calcium Level 9.5, Total Bilirubin 1.2H, Direct Bilirubin 0.1, Aspartate Amino Transf (AST/SGOT) 37, Alanine Aminotransferase (ALT/SGPT) 44, Alkaline Phosphatase 108, C-Reactive Protein, Quantitative 1.7H, Total Protein 9.1H, Albumin 4.1, Globulin 5.0, Albumin/Globulin Ratio 0.8L, Lipase 143, Acetone Level Positive-small 08/06/17 11:39: Arterial Blood pH 7.375, Arterial Blood Partial Pressure CO2 38.0, Arterial Blood Partial Pressure O2 74.1L, Arterial Blood HCO3 21.7L, Arterial Blood Oxygen Saturation 94.7, Arterial Blood Base Excess -3.1, Pierre Test Positive 08/07/17 00:30: Urine Color Pale yellow, Urine Appearance Cloudy, Urine pH 5, Urine Specific [place] 1.020, Urine Protein 2+H, Urine Glucose (UA) 4+H, Urine Ketones 3+H, Urine Occult Blood Negative, Urine Nitrite Negative, Urine Bilirubin Negative, Urine Urobilinogen Normal, Urine Leukocyte Esterase 1+H, Urine RBC 0-2, Urine WBC 5-10H, Urine Squamous Epithelial Cells ModerateH, Urine Calcium Oxalate Crystals Moderate, Urine Bacteria ManyH, Urine Random Sodium 39 Height (Feet): 5 Height (Inches): 1.00 Weight (Pounds): 110 General Appearance: no apparent distress Neck: normal alignment Cardiovascular: normal rate Respiratory/Chest: lungs clear Abdomen: normal bowel sounds Objective Current Medications Medications (Trade) Dose Ordered Sig/Lizbeth Route PRN Reason Start Time Stop Time Status Last Admin Dose Admin Acetaminophen (Tylenol) 650 mg Q4H PRN ORAL fever 08/06/17 15:00 09/05/17 14:59 Albuterol/ Ipratropium (Albuterol/ Ipratropium) 3 ml Q4H PRN HHN Shortness of Breath 08/06/17 15:00 08/11/17 14:59 Clonidine HCl (Catapres Tab) 0.1 mg Q4H PRN ORAL SBP > 160 08/06/17 15:00 09/05/17 14:59 Dextrose (Dextrose 50%) STAT PRN IV Hypoglycemia 08/06/17 15:00 09/05/17 14:59 Heparin Sodium (Porcine) (Heparin 5000 units/ml) 5,000 units EVERY 12 HOURS SUBQ 08/06/17 21:00 09/05/17 20:59 Insulin Aspart (NovoLOG) BEFORE MEALS AND HS SUBQ 08/06/17 16:30 09/05/17 16:29 08/06/17 22:39 Insulin Aspart (NovoLOG) 15 units NOVOTIAC ONCE SUBQ 08/07/17 06:30 08/07/17 06:31 Morphine Sulfate (Morphine Sulfate) 2 mg Q4H PRN IVP severe pain 7-10 08/06/17 15:00 08/13/17 14:59 08/07/17 01:44 Nitroglycerin (Ntg) 0.4 mg Q5M X 3 DOSES PRN SL Prn Chest Pain 08/06/17 15:00 09/05/17 14:59 Ondansetron HCl (Zofran) 4 mg Q6H PRN IVP Nausea & Vomiting 08/06/17 15:00 09/05/17 14:59 08/06/17 15:44 Pantoprazole (Protonix) 40 mg Q12HR ORAL 08/06/17 21:00 09/05/17 20:59 08/06/17 21:31 Polyethylene Glycol (Miralax) 17 gm HSPRN PRN ORAL Constipation 08/06/17 15:00 09/05/17 14:59 Sodium Chloride 1,000 ml @ 100 mls/hr Q10H IVLG 08/06/17 16:00 09/05/17 15:59 08/07/17 01:44 Temazepam (Restoril) 15 mg HSPRN PRN ORAL Insomnia 08/06/17 15:00 08/13/17 14:59 Item Value Date Time Bedside Blood Glucose 351 mg/dl H 08/06/17 2349 Bedside Blood Glucose 351 mg/dl H 08/06/17 2239 Bedside Blood Glucose 397 mg/dl H 08/06/17 0958 IVY SULLIVAN Aug 07, 2017 05:45
[2017-08-07] MEDS: NovoLOG Insulin Flexpen SUBQ SCH ×7 (06:25→20:59)
[2017-08-07] MEDS ORDERED: NovoLOG Insulin Flexpen SUBQ ONE (06:30)
[2017-08-07 07:36] LABS: BASOPHILS % (AUTO) 0.7 % (0.0-2.0); EOSINOPHILS % (AUTO) 0.1 % (0.0-3.0); HEMATOCRIT 31.8 % (37.0-47.0); HEMOGLOBIN 10.6 G/DL (12.0-16.0); LYMPHOCYTES % (AUTO) 27.9 % (20.0-45.0); MEAN CORPUSCULAR VOLUME 93 FL (80-99); MONOCYTES % (AUTO) 6.5 % (1.0-10.0); NEUTROPHILS % (AUTO) 64.9 % (45.0-75.0); PLATELET COUNT 293 K/UL (150-450); RED BLOOD COUNT 3.41 M/UL (4.20-5.40); WHITE BLOOD COUNT 9.1 K/UL (4.8-10.8)
[2017-08-07 07:45] LABS: PHOSPHORUS 4.1 MG/DL (2.5-4.9)
[2017-08-07 07:48] LABS: ALANINE AMINOTRANSFERASE 23 U/L (12-78); ALBUMIN 3.2 G/DL (3.4-5.0); ALBUMIN/GLOBULIN RATIO 0.9 (1.0-2.7); ALKALINE PHOSPHATASE 73 U/L (46-116); ANION GAP 9 mmol/L (5-15); ASPARTATE AMINO TRANSFERASE 20 U/L (15-37); BILIRUBIN,TOTAL 0.7 MG/DL (0.2-1.0); BLOOD UREA NITROGEN 44 mg/dL (7-18); CALCIUM 8.3 MG/DL (8.5-10.1); CARBON DIOXIDE 30 MMOL/L (21-32); CHLORIDE 100 MMOL/L (98-107); CHOLESTEROL 171 MG/DL (< 200); CREATININE 3.3 MG/DL (0.55-1.30); HDL CHOLESTEROL 77 MG/DL (40-60); POTASSIUM 4.1 MMOL/L (3.5-5.1); SODIUM 138 MMOL/L (136-145); TRIGLYCERIDES 106 MG/DL (30-150)
[2017-08-07] MEDS: Levemir Flexpen SUBQ SCH (08:11)
[2017-08-07] MEDS: Heparin 5000 units/ml inj SUBQ SCH ×2 (08:12→21:00)
--- NOTE | 2017-08-07 13:56 | Nephrology Progress Note ---
Assessment/Plan Problem List: (1) ARF (acute renal failure) (2) Vomiting (3) Anemia (4) Hypotension Assessment Renal failure ? acute- ? underlying diabetic kidney disease Cr addie - Nausea with vomiting. - Hyperglycemia. - Diabetes type 1. - Hyponatremia. - Hypertension. presents with hypotension - Diabetic nephropathy. - Gastroesophageal reflux disease. - Anemia Plan Plan: Jay IV fluids ordered monitor renal parameters Keep BP over 100 syst Keep BS in check avoid nephrotoxics Subjective ROS Limited/Unobtainable: No Constitutional: Reports: malaise Objective Objective Last 24 Hour Vital Signs Date Time Temp Pulse Resp B/P (MAP) Pulse Ox O2 Delivery O2 Flow Rate FiO2 08/07/17 12:15 98.6 91 20 124/55 97 Room Air 98.6 08/07/17 08:11 98.4 93 21 146/78 99 Room Air 98.4 08/07/17 06:21 99/43 08/07/17 04:00 97.7 61 21 80/40 92 97.7 08/07/17 00:00 97.9 89 20 115/48 99 97.9 08/06/17 20:00 97.8 87 21 112/58 96 97.8 08/06/17 16:13 98.2 08/06/17 16:00 98.2 100 20 91/41 100 98.2 08/06/17 14:09 98.7 20 92/34 99 Room Air 98.7 Intake and Output 08/06/17 08/07/17 19:00 07:00 Intake Total 220 ml 1100 ml Balance 220 ml 1100 ml Intake Oral 120 ml IV Total 100 ml 1100 ml # Voids 1 2 Laboratory Tests 08/07/17 00:30: Urine Color Pale yellow, Urine Appearance Cloudy, Urine pH 5, Urine Specific [place] 1.020, Urine Protein 2+H, Urine Glucose (UA) 4+H, Urine Ketones 3+H, Urine Occult Blood Negative, Urine Nitrite Negative, Urine Bilirubin Negative, Urine Urobilinogen Normal, Urine Leukocyte Esterase 1+H, Urine RBC 0-2, Urine WBC 5-10H, Urine Squamous Epithelial Cells ModerateH, Urine Calcium Oxalate Crystals Moderate, Urine Bacteria ManyH, Urine Random Sodium 39 08/07/17 06:00: White Blood Count 9.1, Red Blood Count 3.41L, Hemoglobin 10.6L, Hematocrit 31.8L , Mean Corpuscular Volume 93, Mean Corpuscular Hemoglobin 31.1H, Mean Corpuscular Hemoglobin Concent 33.4, Red Cell Distribution Width 14.0, Platelet Count 293, Mean Platelet Volume 8.4, Neutrophils (%) (Auto) 64.9, Lymphocytes (% ) (Auto) 27.9, Monocytes (%) (Auto) 6.5, Eosinophils (%) (Auto) 0.1, Basophils ( %) (Auto) 0.7, Sodium Level 138, Potassium Level 4.1, Chloride Level 100, Carbon Dioxide Level 30, Anion Gap 9, Blood Urea Nitrogen 44H, Creatinine 3.3H, Estimat Glomerular Filtration Rate 18.3, Glucose Level 72#L, Hemoglobin A1c 11.3H, Uric Acid 7.4H, Calcium Level 8.3L, Phosphorus Level 4.1, Magnesium Level 2.1, Total Bilirubin 0.7, Gamma Glutamyl Transpeptidase 23, Aspartate Amino Transf (AST/SGOT) 20, Alanine Aminotransferase (ALT/SGPT) 23, Alkaline Phosphatase 73, Pro-B-Type Natriuretic Peptide 894H, Total Protein 6.8, Albumin 3.2L, Globulin 3.6, Albumin/Globulin Ratio 0.9L, Triglycerides Level 106, Cholesterol Level 171, LDL Cholesterol 85, HDL Cholesterol 77H, Cholesterol/HDL Ratio 2.2L, Thyroid Stimulating Hormone (TSH) 1.145, Cortisol AM Sample [Pending ] Height (Feet): 5 Height (Inches): 1.00 Weight (Pounds): 110 General Appearance: no apparent distress Cardiovascular: tachycardia Respiratory/Chest: decreased breath sounds Abdomen: soft, distended KYMBERLY SEAMAN Aug 07, 2017 13:56
[2017-08-07] MEDS ORDERED: Sodium Chloride 500ML 500 ML IV ONE (14:00)
[2017-08-07 14:11] LABS: APPEARANCE,URINE CLEAR; BILIRUBIN, URINE NEGATIVE (NEGATIVE); GLUCOSE, URINE (UA) 3+ (NEGATIVE); KETONES,URINE 2+ (NEGATIVE); LEUKOCYTE ESTERASE ,URINE 1+ (NEGATIVE); NITRITE,URINE NEGATIVE (NEGATIVE); PH,URINE 5 (4.5-8.0); PROTEIN,URINE 2+ (NEGATIVE); UROBILINOGEN,URINE NORMAL MG/DL (0.0-1.0)
[2017-08-07 14:17] LABS: COLOR,URINE YELLOW
--- NOTE | 2017-08-07 15:13 | Cardiology Report ---
APPROVED REPORT EKG Measurement Heart [id number] Normal sinus rhythm Possible Left atrial enlargement Left ventricular hypertrophy Nonspecific T wave abnormality Prolonged QT Abnormal ECG
--- NOTE | 2017-08-07 15:22 | Consultation ---
History of Present Illness General Date patient seen: Aug 06, 2017 Chief Complaint: General Complaint Reason for Consultation: inpatient management Present Illness HPI 46-year-old female, history of diabetes, recurrent DKA in the past, presented to ER with nausea and vomiting for 2 days. Also stating that her blood sugar is high. she had 6 episodes of nonbilious nonbloody vomiting. Associated with epigastric pain. No diarrhea. No fever no chills has been compliant with her insulin. she is admitted for uncontrolled diabetes. Allergies: Coded Allergies: No Known Allergies (Unverified , 04/24/14) Medication History Scheduled Amlodipine Besylate (Norvasc), 10 MG ORAL DAILY Escitalopram Oxalate* (Lexapro*), 20 MG ORAL DAILY, (Reported) Hydrochlorothiazide* (Hydrochlorothiazide*), 25 MG ORAL DAILY, (Reported) Insulin Aspart (Novolog Flexpen), 8 UNITS SUBQ NOVOTIAC Insulin Aspart* (Novolog*), 0 SUBQ BEFORE MEALS, (Reported) Insulin Degludec (Tresiba Flextouch U-100), 15 UNIT SQ DAILY, (Reported) Meloxicam* (Meloxicam*), 15 MG PO DAILY, (Reported) Pantoprazole* (Protonix*), 40 MG ORAL DAILY, (Reported) Pregabalin (Lyrica), 50 MG PO BID, (Reported) Valsartan (Diovan), 160 MG ORAL BID Scheduled PRN Hydrocodone Bit/Acetaminophen 5-325* (Buford 5-325 Tablet*), 1 TAB ORAL Q4H PRN for For Pain, (Reported) Miscellaneous Medications [Humalog Insulin pump], (Reported) Discontinued Medications Amoxicillin* (Amoxil*), 500 MG ORAL Q6HR, (Reported) Discontinued Reason: Pt stopped taking med Clonidine HCl (Clonidine HCl), 0.1 MG ORAL Q4H PRN Discontinued Reason: Pt stopped taking med Hydrocodone Bitartrate (Hysingla ER), Unknown Dose PO, (Reported) Discontinued Reason: MD discontinued med Ibuprofen* (Motrin*), 600 MG ORAL Q6H PRN for For Pain, (Reported) Discontinued Reason: Pt stopped taking med Lisinopril* (Lisinopril*), 2.5 MG ORAL DAILY, (Reported) Discontinued Reason: MD discontinued med Mirtazapine* (Mirtazapine*), 7.5 MG ORAL BEDTIME Discontinued Reason: Therapy completed Ondansetron Odt* (Zofran Odt*), 4 MG ORAL Q6H PRN for Nausea & Vomiting Discontinued Reason: Therapy completed Potassium Chloride (Potassium Chloride), 10 MEQ PO, (Reported) Discontinued Reason: Pt stopped taking med [Insulin], (Reported) Discontinued Reason: Pt stopped taking med Patient History Healthcare decision maker Resuscitation status Full Code Advanced Directive on File No Review of Systems Gastrointestinal: Reports: abdominal pain, nausea, vomiting Physical Exam General Appearance: cachetic Lines, tubes and drains: peripheral HEENT: normocephalic, atraumatic Neck: non-tender, supple Respiratory/Chest: chest wall non-tender, lungs clear Breasts: no masses Abdomen: normal bowel sounds, no organomegaly Genitourinary/Rectal: normal genital exam Last 24 Hour Vital Signs Date Time Temp Pulse Resp B/P (MAP) Pulse Ox O2 Delivery O2 Flow Rate FiO2 08/07/17 12:15 98.6 91 20 124/55 97 Room Air 98.6 08/07/17 08:11 98.4 93 21 146/78 99 Room Air 98.4 08/07/17 06:21 99/43 08/07/17 04:00 97.7 61 21 80/40 92 97.7 08/07/17 00:00 97.9 89 20 115/48 99 97.9 08/06/17 20:00 97.8 87 21 112/58 96 97.8 08/06/17 16:13 98.2 08/06/17 16:00 98.2 100 20 91/41 100 98.2 Intake and Output 08/06/17 08/07/17 19:00 07:00 Intake Total 220 ml 1100 ml Balance 220 ml 1100 ml Intake Oral 120 ml IV Total 100 ml 1100 ml # Voids 1 2 Laboratory Tests Test 08/07/17 00:30 08/07/17 06:00 08/07/17 13:30 Urine Color Pale yellow Yellow Urine Appearance Cloudy Clear Urine pH 5 (4.5-8.0) 5 (4.5-8.0) Urine Specific [place] 1.020 (1.005-1.035) 1.020 (1.005-1.035) Urine Protein 2+ (NEGATIVE) H 2+ (NEGATIVE) H Urine Glucose (UA) 4+ (NEGATIVE) H 3+ (NEGATIVE) H Urine Ketones 3+ (NEGATIVE) H 2+ (NEGATIVE) H Urine Occult Blood Negative (NEGATIVE) Negative (NEGATIVE) Urine Nitrite Negative (NEGATIVE) Negative (NEGATIVE) Urine Bilirubin Negative (NEGATIVE) Negative (NEGATIVE) Urine Urobilinogen Normal MG/DL (0.0-1.0) Normal MG/DL (0.0-1.0) Urine Leukocyte Esterase 1+ (NEGATIVE) H 1+ (NEGATIVE) H Urine RBC 0-2 /HPF (0 - 2) 0-2 /HPF (0 - 2) Urine WBC 5-10 /HPF (0 - 2) H 2-4 /HPF (0 - 2) Urine Squamous Epithelial Cells Moderate /LPF (NONE/OCC) H Few /LPF (NONE/OCC) Urine Calcium Oxalate Crystals Moderate /LPF (NONE) Urine Bacteria Many /HPF (NONE) H Few /HPF (NONE) Urine Random Sodium 39 MEQ/L (20-110) White Blood Count 9.1 K/UL (4.8-10.8) Red Blood Count 3.41 M/UL (4.20-5.40) L Hemoglobin 10.6 G/DL (12.0-16.0) L Hematocrit 31.8 % (37.0-47.0) L Mean Corpuscular Volume 93 FL (80-99) Mean Corpuscular Hemoglobin 31.1 PG (27.0-31.0) H Mean Corpuscular Hemoglobin Concent 33.4 G/DL (32.0-36.0) Red Cell Distribution Width 14.0 % (11.6-14.8) Platelet Count 293 K/UL (150-450) Mean Platelet Volume 8.4 FL (6.5-10.1) Neutrophils (%) (Auto) 64.9 % (45.0-75.0) Lymphocytes (%) (Auto) 27.9 % (20.0-45.0) Monocytes (%) (Auto) 6.5 % (1.0-10.0) Eosinophils (%) (Auto) 0.1 % (0.0-3.0) Basophils (%) (Auto) 0.7 % (0.0-2.0) Sodium Level 138 MMOL/L (136-145) Potassium Level 4.1 MMOL/L (3.5-5.1) Chloride Level 100 MMOL/L (98-107) Carbon Dioxide Level 30 MMOL/L (21-32) Anion Gap 9 mmol/L (5-15) Blood Urea Nitrogen 44 mg/dL (7-18) H Creatinine 3.3 MG/DL (0.55-1.30) H Estimat Glomerular Filtration Rate 18.3 mL/min (>60) Glucose Level 72 MG/DL (74-106) #L Hemoglobin A1c 11.3 % (4.3-6.0) H Uric Acid 7.4 MG/DL (2.6-7.2) H Calcium Level 8.3 MG/DL (8.5-10.1) L Phosphorus Level 4.1 MG/DL (2.5-4.9) Magnesium Level 2.1 MG/DL (1.8-2.4) Total Bilirubin 0.7 MG/DL (0.2-1.0) Gamma Glutamyl Transpeptidase 23 U/L (5-85) Aspartate Amino Transf (AST/SGOT) 20 U/L (15-37) Alanine Aminotransferase (ALT/SGPT) 23 U/L (12-78) Alkaline Phosphatase 73 U/L (46-116) C-Reactive Protein, Quantitative 1.3 mg/dL (0.00-0.90) H Pro-B-Type Natriuretic Peptide 894 pg/mL (0-125) H Total Protein 6.8 G/DL (6.4-8.2) Albumin 3.2 G/DL (3.4-5.0) L Globulin 3.6 g/dL Albumin/Globulin Ratio 0.9 (1.0-2.7) L Triglycerides Level 106 MG/DL (30-150) Cholesterol Level 171 MG/DL (< 200) LDL Cholesterol 85 mg/dL (<100) HDL Cholesterol 77 MG/DL (40-60) H Cholesterol/HDL Ratio 2.2 (3.3-4.4) L Thyroid Stimulating Hormone (TSH) 1.145 uiU/mL (0.358-3.740) Cortisol AM Sample Pending Urine HCG, Qualitative Negative Height (Feet): 5 Height (Inches): 1.00 Weight (Pounds): 110 Medications Current Medications Medications (Trade) Dose Ordered Sig/Lizbeth Route PRN Reason Start Time Stop Time Status Last Admin Dose Admin Acetaminophen (Tylenol) 650 mg Q4H PRN ORAL fever 08/06/17 15:00 09/05/17 14:59 Albuterol/ Ipratropium (Albuterol/ Ipratropium) 3 ml Q4H PRN HHN Shortness of Breath 08/06/17 15:00 08/11/17 14:59 Clonidine HCl (Catapres Tab) 0.1 mg Q4H PRN ORAL SBP > 160 08/06/17 15:00 09/05/17 14:59 Dextrose (Dextrose 50%) STAT PRN IV Hypoglycemia 08/07/17 05:45 09/06/17 05:44 Heparin Sodium (Porcine) (Heparin 5000 units/ml) 5,000 units EVERY 12 HOURS SUBQ 08/06/17 21:00 09/05/17 20:59 Insulin Aspart (NovoLOG) BEFORE MEALS AND HS SUBQ 08/06/17 16:30 09/05/17 16:29 08/07/17 12:17 Insulin Aspart (NovoLOG) 5 units NOVOTIAC SUBQ 08/07/17 06:30 09/06/17 06:29 08/07/17 12:18 Insulin Detemir (Levemir) 15 units DAILY SUBQ 08/07/17 09:00 09/06/17 08:59 Morphine Sulfate (Morphine Sulfate) 2 mg Q4H PRN IVP severe pain 7-10 08/06/17 15:00 08/13/17 14:59 08/07/17 01:44 Nitroglycerin (Ntg) 0.4 mg Q5M X 3 DOSES PRN SL Prn Chest Pain 08/06/17 15:00 09/05/17 14:59 Ondansetron HCl (Zofran) 4 mg Q6H PRN IVP Nausea & Vomiting 08/06/17 15:00 09/05/17 14:59 08/06/17 15:44 Pantoprazole (Protonix) 40 mg Q12HR ORAL 08/06/17 21:00 09/05/17 20:59 08/07/17 08:12 Polyethylene Glycol (Miralax) 17 gm HSPRN PRN ORAL Constipation 08/06/17 15:00 09/05/17 14:59 Sodium Chloride 1,000 ml @ 150 mls/hr Q6H40M IVLG 2/21/18 14:00 09/06/17 13:59 Temazepam (Restoril) 15 mg HSPRN PRN ORAL Insomnia 08/06/17 15:00 08/13/17 14:59 Assessment/Plan Problem List: (1) Uncontrolled diabetes mellitus ICD Codes: E11.65 - Type 2 diabetes mellitus with hyperglycemia SNOMED: 38818856, 345556388 (2) Renal insufficiency ICD Codes: N28.9 - Disorder of kidney and ureter, unspecified SNOMED: 786342538, 166157931 (3) Encephalopathy ICD Codes: G93.40 - Encephalopathy, unspecified SNOMED: 86769362, 775519626 (4) Major depression ICD Codes: F32.9 - Major depressive disorder, single episode, unspecified SNOMED: 116685643 (5) HTN (hypertension) ICD Codes: I10 - HTN (hypertension) SNOMED: 06020058 Assessment/Plan iv fluids symptomatic treatment sliding scale watch renal parameters renal evaluation VANESSA SAGASTUME Aug 07, 2017 15:22
--- NOTE | 2017-08-07 15:25 | Pulmonology Progress Note ---
Assessment/Plan Problems: (1) Uncontrolled diabetes mellitus (2) Renal insufficiency (3) Encephalopathy (4) Major depression (5) HTN (hypertension) Assessment/Plan sliding scale, slightly better iv fluids check electrolytes f/u renal and endo recommendations symptomatic treatment Subjective ROS Limited/Unobtainable: No Constitutional: Reports: no symptoms HEENT: Repors: no symptoms Respiratory: Reports: no symptoms Allergies: Coded Allergies: No Known Allergies (Unverified , 04/24/14) Objective Last 24 Hour Vital Signs Date Time Temp Pulse Resp B/P (MAP) Pulse Ox O2 Delivery O2 Flow Rate FiO2 08/07/17 12:15 98.6 91 20 124/55 97 Room Air 98.6 08/07/17 08:11 98.4 93 21 146/78 99 Room Air 98.4 08/07/17 06:21 99/43 08/07/17 04:00 97.7 61 21 80/40 92 97.7 08/07/17 00:00 97.9 89 20 115/48 99 97.9 08/06/17 20:00 97.8 87 21 112/58 96 97.8 08/06/17 16:13 98.2 08/06/17 16:00 98.2 100 20 91/41 100 98.2 Intake and Output 08/06/17 08/07/17 19:00 07:00 Intake Total 220 ml 1100 ml Balance 220 ml 1100 ml Intake Oral 120 ml IV Total 100 ml 1100 ml # Voids 1 2 Objective General Appearance: cachetic Lines, tubes and drains: peripheral HEENT: normocephalic, atraumatic Neck: non-tender, supple Respiratory/Chest: chest wall non-tender, lungs clear Breasts: no masses Abdomen: normal bowel sounds, no organomegaly Genitourinary/Rectal: normal genital exam Laboratory Tests 08/07/17 00:30: Urine Color Pale yellow, Urine Appearance Cloudy, Urine pH 5, Urine Specific [place] 1.020, Urine Protein 2+H, Urine Glucose (UA) 4+H, Urine Ketones 3+H, Urine Occult Blood Negative, Urine Nitrite Negative, Urine Bilirubin Negative, Urine Urobilinogen Normal, Urine Leukocyte Esterase 1+H, Urine RBC 0-2, Urine WBC 5-10H, Urine Squamous Epithelial Cells ModerateH, Urine Calcium Oxalate Crystals Moderate, Urine Bacteria ManyH, Urine Random Sodium 39 08/07/17 06:00: White Blood Count 9.1, Red Blood Count 3.41L, Hemoglobin 10.6L, Hematocrit 31.8L , Mean Corpuscular Volume 93, Mean Corpuscular Hemoglobin 31.1H, Mean Corpuscular Hemoglobin Concent 33.4, Red Cell Distribution Width 14.0, Platelet Count 293, Mean Platelet Volume 8.4, Neutrophils (%) (Auto) 64.9, Lymphocytes (% ) (Auto) 27.9, Monocytes (%) (Auto) 6.5, Eosinophils (%) (Auto) 0.1, Basophils ( %) (Auto) 0.7, Sodium Level 138, Potassium Level 4.1, Chloride Level 100, Carbon Dioxide Level 30, Anion Gap 9, Blood Urea Nitrogen 44H, Creatinine 3.3H, Estimat Glomerular Filtration Rate 18.3, Glucose Level 72#L, Hemoglobin A1c 11.3H, Uric Acid 7.4H, Calcium Level 8.3L, Phosphorus Level 4.1, Magnesium Level 2.1, Total Bilirubin 0.7, Gamma Glutamyl Transpeptidase 23, Aspartate Amino Transf (AST/SGOT) 20, Alanine Aminotransferase (ALT/SGPT) 23, Alkaline Phosphatase 73, C-Reactive Protein, Quantitative 1.3H, Pro-B-Type Natriuretic Peptide 894H, Total Protein 6.8, Albumin 3.2L, Globulin 3.6, Albumin/Globulin Ratio 0.9L, Triglycerides Level 106, Cholesterol Level 171, LDL Cholesterol 85, HDL Cholesterol 77H, Cholesterol/HDL Ratio 2.2L, Thyroid Stimulating Hormone ( TSH) 1.145, Cortisol AM Sample [Pending] 08/07/17 13:30: Urine Color Yellow, Urine Appearance Clear, Urine pH 5, Urine Specific [place] 1.020, Urine Protein 2+H, Urine Glucose (UA) 3+H, Urine Ketones 2+H, Urine Occult Blood Negative, Urine Nitrite Negative, Urine Bilirubin Negative, Urine Urobilinogen Normal, Urine Leukocyte Esterase 1+H, Urine RBC 0-2, Urine WBC 2-4 , Urine Squamous Epithelial Cells Few, Urine Bacteria Few, Urine HCG, Qualitative Negative Current Medications Medications (Trade) Dose Ordered Sig/Lizbeth Route PRN Reason Start Time Stop Time Status Last Admin Dose Admin Acetaminophen (Tylenol) 650 mg Q4H PRN ORAL fever 08/06/17 15:00 09/05/17 14:59 Albuterol/ Ipratropium (Albuterol/ Ipratropium) 3 ml Q4H PRN HHN Shortness of Breath 08/06/17 15:00 08/11/17 14:59 Clonidine HCl (Catapres Tab) 0.1 mg Q4H PRN ORAL SBP > 160 08/06/17 15:00 09/05/17 14:59 Dextrose (Dextrose 50%) STAT PRN IV Hypoglycemia 08/07/17 05:45 09/06/17 05:44 Heparin Sodium (Porcine) (Heparin 5000 units/ml) 5,000 units EVERY 12 HOURS SUBQ 08/06/17 21:00 09/05/17 20:59 Insulin Aspart (NovoLOG) BEFORE MEALS AND HS SUBQ 08/06/17 16:30 09/05/17 16:29 08/07/17 12:17 Insulin Aspart (NovoLOG) 5 units NOVOTIAC SUBQ 08/07/17 06:30 09/06/17 06:29 08/07/17 12:18 Insulin Detemir (Levemir) 15 units DAILY SUBQ 08/07/17 09:00 09/06/17 08:59 Morphine Sulfate (Morphine Sulfate) 2 mg Q4H PRN IVP severe pain 7-10 08/06/17 15:00 08/13/17 14:59 08/07/17 01:44 Nitroglycerin (Ntg) 0.4 mg Q5M X 3 DOSES PRN SL Prn Chest Pain 08/06/17 15:00 09/05/17 14:59 Ondansetron HCl (Zofran) 4 mg Q6H PRN IVP Nausea & Vomiting 08/06/17 15:00 09/05/17 14:59 08/06/17 15:44 Pantoprazole (Protonix) 40 mg Q12HR ORAL 08/06/17 21:00 09/05/17 20:59 08/07/17 08:12 Polyethylene Glycol (Miralax) 17 gm HSPRN PRN ORAL Constipation 08/06/17 15:00 09/05/17 14:59 Sodium Chloride 1,000 ml @ 150 mls/hr Q6H40M IVLG 08/07/17 14:00 09/06/17 13:59 Temazepam (Restoril) 15 mg HSPRN PRN ORAL Insomnia 08/06/17 15:00 08/13/17 14:59 VANESSA SAGASTUME Aug 07, 2017 15:25
--- NOTE | 2017-08-07 17:19 | Internal Med Progress Note ---
Subjective Date of Service: Aug 07, 2017 Physician Name JacobsenAnastacio Attending Physician Aries Hardin MD Current Medications Medications (Trade) Dose Ordered Sig/Lizbeth Route PRN Reason Start Time Stop Time Status Last Admin Dose Admin Acetaminophen (Tylenol) 650 mg Q4H PRN ORAL fever 08/06/17 15:00 09/05/17 14:59 Albuterol/ Ipratropium (Albuterol/ Ipratropium) 3 ml Q4H PRN HHN Shortness of Breath 08/06/17 15:00 08/11/17 14:59 Clonidine HCl (Catapres Tab) 0.1 mg Q4H PRN ORAL SBP > 160 08/06/17 15:00 09/05/17 14:59 Dextrose (Dextrose 50%) STAT PRN IV Hypoglycemia 08/07/17 05:45 09/06/17 05:44 Heparin Sodium (Porcine) (Heparin 5000 units/ml) 5,000 units EVERY 12 HOURS SUBQ 08/06/17 21:00 09/05/17 20:59 Insulin Aspart (NovoLOG) BEFORE MEALS AND HS SUBQ 08/06/17 16:30 09/05/17 16:29 08/07/17 17:05 Insulin Aspart (NovoLOG) 5 units NOVOTIAC SUBQ 08/07/17 06:30 09/06/17 06:29 08/07/17 12:18 Insulin Detemir (Levemir) 15 units DAILY SUBQ 08/07/17 09:00 09/06/17 08:59 Morphine Sulfate (Morphine Sulfate) 2 mg Q4H PRN IVP severe pain 7-10 08/06/17 15:00 08/13/17 14:59 08/07/17 01:44 Nitroglycerin (Ntg) 0.4 mg Q5M X 3 DOSES PRN SL Prn Chest Pain 08/06/17 15:00 09/05/17 14:59 Ondansetron HCl (Zofran) 4 mg Q6H PRN IVP Nausea & Vomiting 08/06/17 15:00 09/05/17 14:59 08/06/17 15:44 Pantoprazole (Protonix) 40 mg Q12HR ORAL 08/06/17 21:00 09/05/17 20:59 08/07/17 08:12 Polyethylene Glycol (Miralax) 17 gm HSPRN PRN ORAL Constipation 08/06/17 15:00 09/05/17 14:59 Sodium Chloride 1,000 ml @ 150 mls/hr Q6H40M IVLG 08/07/17 14:00 09/06/17 13:59 08/07/17 15:56 Temazepam (Restoril) 15 mg HSPRN PRN ORAL Insomnia 08/06/17 15:00 08/13/17 14:59 Allergies: Coded Allergies: No Known Allergies (Unverified , 04/24/14) ROS Limited/Unobtainable: No Constitutional: Reports: no symptoms HEENT: Reports: no symptoms Cardiovascular: Reports: no symptoms Respiratory: Reports: no symptoms Gastrointestinal/Abdominal: Reports: no symptoms Genitourinary: Reports: no symptoms Neurologic/Psychiatric: Reports: no symptoms Subjective 46 YO F admitted with nausea, vomiting and hyperglycemia due to malfunction of insulin pump. Cover for Int Med-Dr Hardin. Objective Last Vital Signs Date Time Temp Pulse Resp B/P (MAP) Pulse Ox O2 Delivery O2 Flow Rate FiO2 08/07/17 16:00 98.4 81 20 93/40 98.4 08/07/17 12:15 97 Room Air General Appearance: WD/WN, alert, mild distress EENT: PERRL/EOMI, normal ENT inspection Neck: non-tender, normal alignment, supple, normal inspection Cardiovascular: normal peripheral pulses, normal rate, regular rhythm, no gallop/murmur, no JVD Respiratory/Chest: chest wall non-tender, lungs clear, normal breath sounds, no respiratory distress, no accessory muscle use Abdomen: normal bowel sounds, non tender, soft, no organomegaly, no mass Extremities: normal range of motion, non-tender 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, no motor/sensory deficits Skin: normal pigmentation, warm/dry Laboratory Tests Test 08/07/17 00:30 08/07/17 06:00 08/07/17 13:30 Urine Color Pale yellow Yellow Urine Appearance Cloudy Clear Urine pH 5 (4.5-8.0) 5 (4.5-8.0) Urine Specific [place] 1.020 (1.005-1.035) 1.020 (1.005-1.035) Urine Protein 2+ (NEGATIVE) H 2+ (NEGATIVE) H Urine Glucose (UA) 4+ (NEGATIVE) H 3+ (NEGATIVE) H Urine Ketones 3+ (NEGATIVE) H 2+ (NEGATIVE) H Urine Occult Blood Negative (NEGATIVE) Negative (NEGATIVE) Urine Nitrite Negative (NEGATIVE) Negative (NEGATIVE) Urine Bilirubin Negative (NEGATIVE) Negative (NEGATIVE) Urine Urobilinogen Normal MG/DL (0.0-1.0) Normal MG/DL (0.0-1.0) Urine Leukocyte Esterase 1+ (NEGATIVE) H 1+ (NEGATIVE) H Urine RBC 0-2 /HPF (0 - 2) 0-2 /HPF (0 - 2) Urine WBC 5-10 /HPF (0 - 2) H 2-4 /HPF (0 - 2) Urine Squamous Epithelial Cells Moderate /LPF (NONE/OCC) H Few /LPF (NONE/OCC) Urine Calcium Oxalate Crystals Moderate /LPF (NONE) Urine Bacteria Many /HPF (NONE) H Few /HPF (NONE) Urine Random Sodium 39 MEQ/L (20-110) White Blood Count 9.1 K/UL (4.8-10.8) Red Blood Count 3.41 M/UL (4.20-5.40) L Hemoglobin 10.6 G/DL (12.0-16.0) L Hematocrit 31.8 % (37.0-47.0) L Mean Corpuscular Volume 93 FL (80-99) Mean Corpuscular Hemoglobin 31.1 PG (27.0-31.0) H Mean Corpuscular Hemoglobin Concent 33.4 G/DL (32.0-36.0) Red Cell Distribution Width 14.0 % (11.6-14.8) Platelet Count 293 K/UL (150-450) Mean Platelet Volume 8.4 FL (6.5-10.1) Neutrophils (%) (Auto) 64.9 % (45.0-75.0) Lymphocytes (%) (Auto) 27.9 % (20.0-45.0) Monocytes (%) (Auto) 6.5 % (1.0-10.0) Eosinophils (%) (Auto) 0.1 % (0.0-3.0) Basophils (%) (Auto) 0.7 % (0.0-2.0) Sodium Level 138 MMOL/L (136-145) Potassium Level 4.1 MMOL/L (3.5-5.1) Chloride Level 100 MMOL/L (98-107) Carbon Dioxide Level 30 MMOL/L (21-32) Anion Gap 9 mmol/L (5-15) Blood Urea Nitrogen 44 mg/dL (7-18) H Creatinine 3.3 MG/DL (0.55-1.30) H Estimat Glomerular Filtration Rate 18.3 mL/min (>60) Glucose Level 72 MG/DL (74-106) #L Hemoglobin A1c 11.3 % (4.3-6.0) H Uric Acid 7.4 MG/DL (2.6-7.2) H Calcium Level 8.3 MG/DL (8.5-10.1) L Phosphorus Level 4.1 MG/DL (2.5-4.9) Magnesium Level 2.1 MG/DL (1.8-2.4) Total Bilirubin 0.7 MG/DL (0.2-1.0) Gamma Glutamyl Transpeptidase 23 U/L (5-85) Aspartate Amino Transf (AST/SGOT) 20 U/L (15-37) Alanine Aminotransferase (ALT/SGPT) 23 U/L (12-78) Alkaline Phosphatase 73 U/L (46-116) C-Reactive Protein, Quantitative 1.3 mg/dL (0.00-0.90) H Pro-B-Type Natriuretic Peptide 894 pg/mL (0-125) H Total Protein 6.8 G/DL (6.4-8.2) Albumin 3.2 G/DL (3.4-5.0) L Globulin 3.6 g/dL Albumin/Globulin Ratio 0.9 (1.0-2.7) L Triglycerides Level 106 MG/DL (30-150) Cholesterol Level 171 MG/DL (< 200) LDL Cholesterol 85 mg/dL (<100) HDL Cholesterol 77 MG/DL (40-60) H Cholesterol/HDL Ratio 2.2 (3.3-4.4) L Thyroid Stimulating Hormone (TSH) 1.145 uiU/mL (0.358-3.740) Cortisol AM Sample Pending Urine HCG, Qualitative Negative Intake and Output 08/06/17 08/07/17 19:00 07:00 Intake Total 220 ml 1100 ml Balance 220 ml 1100 ml Intake Oral 120 ml IV Total 100 ml 1100 ml # Voids 1 2 Assessment/Plan Problem List: (1) Hyponatremia Assessment & Plan: See nephrology note. Cont norm saline IV fluids. (2) Intractable nausea and vomiting Assessment & Plan: Resolved. continue zofran (3) Hyperglycemia Assessment & Plan: Due to malfunction of insulin pump. D/C insulin pump per endocrinology. Start levemir and novolog sliding scale. (4) ARF (acute renal failure) (5) Diabetic ketoacidosis, type I (6) Diabetes mellitus type 1, uncontrolled, insulin dependent Assessment & Plan: See endocrinology note. (7) HTN (hypertension) Assessment & Plan: stable (8) Diabetic nephropathy (9) Renal failure Assessment & Plan: Due to dehydration due to DKA. see nephrology note. Status: not improved ANASTACIO JACOBSEN Aug 07, 2017 17:19
[2017-08-08] VITALS: BP 104/55
[2017-08-08 04:00] VITALS: BP 152/74
[2017-08-08] MEDS: NovoLOG Insulin Flexpen SUBQ SCH ×7 (06:19→20:52)
[2017-08-08 07:31] LABS: BASOPHILS % (AUTO) 0.4 % (0.0-2.0); EOSINOPHILS % (AUTO) 0.1 % (0.0-3.0); HEMATOCRIT 34.8 % (37.0-47.0); HEMOGLOBIN 10.9 G/DL (12.0-16.0); LYMPHOCYTES % (AUTO) 10.5 % (20.0-45.0); MEAN CORPUSCULAR VOLUME 100 FL (80-99); MONOCYTES % (AUTO) 5.7 % (1.0-10.0); NEUTROPHILS % (AUTO) 83.2 % (45.0-75.0); PLATELET COUNT 211 K/UL (150-450); RED CELL DISTRIBUTION WIDTH 14.6 % (11.6-14.8); WHITE BLOOD COUNT 7.7 K/UL (4.8-10.8)
[2017-08-08 07:57] LABS: ALANINE AMINOTRANSFERASE 33 U/L (12-78); ALBUMIN/GLOBULIN RATIO 0.8 (1.0-2.7); ALKALINE PHOSPHATASE 91 U/L (46-116); ANION GAP 18 mmol/L (5-15); ASPARTATE AMINO TRANSFERASE 32 U/L (15-37); BILIRUBIN,TOTAL 0.5 MG/DL (0.2-1.0); BLOOD UREA NITROGEN 28 mg/dL (7-18); CALCIUM 7.9 MG/DL (8.5-10.1); CARBON DIOXIDE 18 MMOL/L (21-32); CHLORIDE 99 MMOL/L (98-107); CREATININE 1.7 MG/DL (0.55-1.30); FERRITIN 58 NG/ML (8-388); GAMMA GLUTAMYL TRANSPEPTIDASE 26 U/L (5-85); PHOSPHORUS 2.7 MG/DL (2.5-4.9); POTASSIUM 4.5 MMOL/L (3.5-5.1); SODIUM 134 MMOL/L (136-145)
[2017-08-08 08:13] LABS: % IRON SATURATION 13 % (15-50); IRON 39 ug/dL (50-175); TOTAL IRON BINDING CAPACITY 298 ug/dL (250-450)
[2017-08-08 08:20] VITALS: BP 132/67
[2017-08-08] MEDS: Heparin 5000 units/ml inj SUBQ SCH ×3 (09:00→20:43)
[2017-08-08] MEDS: Levemir Flexpen SUBQ SCH (09:39)
[2017-08-08] MEDS: Morphine Sulfate 4mg/ml Inj IVP PRN ×2 (09:45→16:13)
--- NOTE | 2017-08-08 11:35 | Nephrology Progress Note ---
Assessment/Plan Problem List: (1) ARF (acute renal failure) (2) Vomiting (3) Anemia (4) Hypotension Assessment Renal failure ? acute- ? underlying diabetic kidney disease Cr addie - Nausea with vomiting. - Hyperglycemia. - Diabetes type 1. - Hyponatremia. - Hypertension. presents with hypotension - Diabetic nephropathy. - Gastroesophageal reflux disease. - Anemia Plan Plan: Jay IV fluids ordered, rate decreased monitor renal parameters Keep BP over 100 syst Keep BS in check avoid nephrotoxics Subjective ROS Limited/Unobtainable: No Constitutional: Reports: malaise Objective Objective Last 24 Hour Vital Signs Date Time Temp Pulse Resp B/P (MAP) Pulse Ox O2 Delivery O2 Flow Rate FiO2 08/08/17 08:20 97.9 90 17 132/67 Room Air 97.9 08/08/17 04:00 98.5 97 18 152/74 96 Room Air 98.5 08/08/17 00:00 97.5 84 20 104/55 93 97.5 08/07/17 20:12 82 18 Room Air 08/07/17 20:00 97.7 88 20 112/63 96 97.7 08/07/17 19:13 98.4 08/07/17 16:00 98.4 81 20 93/40 98.4 08/07/17 12:15 98.6 91 20 124/55 97 Room Air 98.6 Intake and Output 08/07/17 08/08/17 19:00 07:00 Intake Total 2710 ml 1650 ml Output Total 1300 ml Balance 2710 ml 350 ml Intake Oral 960 ml IV Total 1750 ml 1650 ml Output Urine Total 1300 ml # Voids 2 Laboratory Tests 08/07/17 13:30: Urine Color Yellow, Urine Appearance Clear, Urine pH 5, Urine Specific [place] 1.020, Urine Protein 2+H, Urine Glucose (UA) 3+H, Urine Ketones 2+H, Urine Occult Blood Negative, Urine Nitrite Negative, Urine Bilirubin Negative, Urine Urobilinogen Normal, Urine Leukocyte Esterase 1+H, Urine RBC 0-2, Urine WBC 2-4 , Urine Squamous Epithelial Cells Few, Urine Bacteria Few, Urine HCG, Qualitative Negative 08/07/17 23:00: Urine Opiates Screen PositiveH, Urine Barbiturates Screen Negative, Phencyclidine (PCP) Screen Negative, Urine Amphetamines Screen Negative, Urine Benzodiazepines Screen Negative, Urine Cocaine Screen Negative, Urine Marijuana (THC) Screen Negative 08/08/17 06:47: White Blood Count 7.7, Red Blood Count 3.50L, Hemoglobin 10.9L, Hematocrit 34.8L , Mean Corpuscular Volume 100H, Mean Corpuscular Hemoglobin 31.1H, Mean Corpuscular Hemoglobin Concent 31.3L, Red Cell Distribution Width 14.6, Platelet Count 211, Mean Platelet Volume 7.8, Neutrophils (%) (Auto) 83.2H, Lymphocytes (%) (Auto) 10.5L, Monocytes (%) (Auto) 5.7, Eosinophils (%) (Auto) 0.1, Basophils (%) (Auto) 0.4, Sodium Level 134L, Potassium Level 4.5, Chloride Level 99, Carbon Dioxide Level 18L, Anion Gap 18H, Blood Urea Nitrogen 28H, Creatinine 1.7H, Estimat Glomerular Filtration Rate 39.4, Glucose Level 532#*H, Calcium Level 7.9L, Phosphorus Level 2.7, Magnesium Level 1.8, Iron Level 39L, Total Iron Binding Capacity 298, Percent Iron Saturation 13L, Unsaturated Iron Binding 259, Ferritin 58, Total Bilirubin 0.5, Gamma Glutamyl Transpeptidase 26 , Aspartate Amino Transf (AST/SGOT) 32, Alanine Aminotransferase (ALT/SGPT) 33, Alkaline Phosphatase 91, Pro-B-Type Natriuretic Peptide 473H, Total Protein 6.9 , Albumin 3.0L, Globulin 3.9, Albumin/Globulin Ratio 0.8L, Vitamin B12 Level 1781H, Folate 17.2 Height (Feet): 5 Height (Inches): 1.00 Weight (Pounds): 110 General Appearance: no apparent distress, lethargic Cardiovascular: tachycardia Respiratory/Chest: decreased breath sounds Abdomen: soft KYMBERLY SEAMAN Aug 08, 2017 11:35
[2017-08-08 12:20] VITALS: BP 147/78
--- NOTE | 2017-08-08 12:38 | Consultation ---
History of Present Illness General Date patient seen: Aug 07, 2017 Chief Complaint: General Complaint Reason for Consultation: inpatient management Present Illness HPI 46-year-old female with history of type 1 diabetes, presents with a chief complaint of nausea, vomiting, and hyperglycemia. the pt has anxiety and depression. Insomnia Allergies: Coded Allergies: No Known Allergies (Unverified , 04/24/14) Medication History Scheduled Amlodipine Besylate (Norvasc), 10 MG ORAL DAILY Escitalopram Oxalate* (Lexapro*), 20 MG ORAL DAILY, (Reported) Hydrochlorothiazide* (Hydrochlorothiazide*), 25 MG ORAL DAILY, (Reported) Insulin Aspart (Novolog Flexpen), 8 UNITS SUBQ NOVOTIAC Insulin Aspart* (Novolog*), 0 SUBQ BEFORE MEALS, (Reported) Insulin Degludec (Tresiba Flextouch U-100), 15 UNIT SQ DAILY, (Reported) Meloxicam* (Meloxicam*), 15 MG PO DAILY, (Reported) Pantoprazole* (Protonix*), 40 MG ORAL DAILY, (Reported) Pregabalin (Lyrica), 50 MG PO BID, (Reported) Valsartan (Diovan), 160 MG ORAL BID Scheduled PRN Hydrocodone Bit/Acetaminophen 5-325* ([place] 5-325 Tablet*), 1 TAB ORAL Q4H PRN for For Pain, (Reported) Miscellaneous Medications [Humalog Insulin pump], (Reported) Discontinued Medications Amoxicillin* (Amoxil*), 500 MG ORAL Q6HR, (Reported) Discontinued Reason: Pt stopped taking med Clonidine HCl (Clonidine HCl), 0.1 MG ORAL Q4H PRN Discontinued Reason: Pt stopped taking med Hydrocodone Bitartrate ([place] ER), Unknown Dose PO, (Reported) Discontinued Reason: MD discontinued med Ibuprofen* (Motrin*), 600 MG ORAL Q6H PRN for For Pain, (Reported) Discontinued Reason: Pt stopped taking med Lisinopril* (Lisinopril*), 2.5 MG ORAL DAILY, (Reported) Discontinued Reason: MD discontinued med Mirtazapine* (Mirtazapine*), 7.5 MG ORAL BEDTIME Discontinued Reason: Therapy completed Ondansetron Odt* (Zofran Odt*), 4 MG ORAL Q6H PRN for Nausea & Vomiting Discontinued Reason: Therapy completed Potassium Chloride (Potassium Chloride), 10 MEQ PO, (Reported) Discontinued Reason: Pt stopped taking med [Insulin], (Reported) Discontinued Reason: Pt stopped taking med Patient History Limited by: medical condition History Provided By: Patient, Medical Record, PMD Healthcare decision maker Resuscitation status Full Code Advanced Directive on File No Past Medical/Surgical History Past Medical/Surgical History: (1) Hypertension (2) Non-compliance with treatment (3) CKD (chronic kidney disease) (4) Esophagitis (5) Constipation (6) Dehydration (7) Hyperkalemia (8) Anemia (9) Dysphagia (10) Depression (11) Diabetes (12) Diabetic ketoacidosis, type I (13) DKA (diabetic ketoacidoses) (14) Diarrhea (15) Diarrhea (16) SOB (shortness of breath) (17) Gastritis (18) Pancreatitis (19) Hypophosphatemia (20) Hypophosphatemia (21) Esophageal ulcer (22) Hyperosmolar coma (23) Epigastric pain (24) Hypoalbuminemia (25) UTI (urinary tract infection) (26) Chest pain (27) Chest pain (28) Diabetic gastroparesis (29) Britney esophagitis (30) Acidosis, metabolic (31) DKA (diabetic ketoacidosis) (32) Nausea & vomiting (33) Esophageal ulcer without bleeding (34) Diabetes type 1, uncontrolled (35) Hypertensive emergency (36) esophageal u (37) Hypotension (38) Hyperglycemia (39) Anemia (40) GERD (gastroesophageal reflux disease) (41) Diabetes mellitus type 1, uncontrolled, insulin dependent (42) Major depression (43) Renal insufficiency (44) Encephalopathy (45) HTN (hypertension) (46) Uncontrolled diabetes mellitus (47) Hyponatremia (48) Renal failure (49) Diabetic nephropathy (50) Intractable nausea and vomiting (51) Diabetic ketoacidosis, type I (52) Vomiting (53) ARF (acute renal failure) (54) Urinary retention (55) Oral candidiasis Review of Systems Psychiatric: Reports: see HPI, prior hx, anxiety, depressed feelings, emotional problems Physical Exam General Appearance: no apparent distress, alert Neurologic: alert, oriented x 3, responsive, depressed affect Last 24 Hour Vital Signs Date Time Temp Pulse Resp B/P (MAP) Pulse Ox O2 Delivery O2 Flow Rate FiO2 08/08/17 08:20 97.9 90 17 132/67 Room Air 97.9 08/08/17 04:00 98.5 97 18 152/74 96 Room Air 98.5 08/08/17 00:00 97.5 84 20 104/55 93 97.5 08/07/17 20:12 82 18 Room Air 08/07/17 20:00 97.7 88 20 112/63 96 97.7 08/07/17 19:13 98.4 08/07/17 16:00 98.4 81 20 93/40 98.4 Intake and Output 08/07/17 08/08/17 19:00 07:00 Intake Total 2710 ml 1650 ml Output Total 1300 ml Balance 2710 ml 350 ml Intake Oral 960 ml IV Total 1750 ml 1650 ml Output Urine Total 1300 ml # Voids 2 Laboratory Tests Test 08/07/17 13:30 08/07/17 23:00 08/08/17 06:47 Urine Color Yellow Urine Appearance Clear Urine pH 5 (4.5-8.0) Urine Specific [place] 1.020 (1.005-1.035) Urine Protein 2+ (NEGATIVE) H Urine Glucose (UA) 3+ (NEGATIVE) H Urine Ketones 2+ (NEGATIVE) H Urine Occult Blood Negative (NEGATIVE) Urine Nitrite Negative (NEGATIVE) Urine Bilirubin Negative (NEGATIVE) Urine Urobilinogen Normal MG/DL (0.0-1.0) Urine Leukocyte Esterase 1+ (NEGATIVE) H Urine RBC 0-2 /HPF (0 - 2) Urine WBC 2-4 /HPF (0 - 2) Urine Squamous Epithelial Cells Few /LPF (NONE/OCC) Urine Bacteria Few /HPF (NONE) Urine HCG, Qualitative Negative Urine Opiates Screen Positive (NEGATIVE) H Urine Barbiturates Screen Negative (NEGATIVE) Phencyclidine (PCP) Screen Negative (NEGATIVE) Urine Amphetamines Screen Negative (NEGATIVE) Urine Benzodiazepines Screen Negative (NEGATIVE) Urine Cocaine Screen Negative (NEGATIVE) Urine Marijuana (THC) Screen Negative (NEGATIVE) White Blood Count 7.7 K/UL (4.8-10.8) Red Blood Count 3.50 M/UL (4.20-5.40) L Hemoglobin 10.9 G/DL (12.0-16.0) L Hematocrit 34.8 % (37.0-47.0) L Mean Corpuscular Volume 100 FL (80-99) H Mean Corpuscular Hemoglobin 31.1 PG (27.0-31.0) H Mean Corpuscular Hemoglobin Concent 31.3 G/DL (32.0-36.0) L Red Cell Distribution Width 14.6 % (11.6-14.8) Platelet Count 211 K/UL (150-450) Mean Platelet Volume 7.8 FL (6.5-10.1) Neutrophils (%) (Auto) 83.2 % (45.0-75.0) H Lymphocytes (%) (Auto) 10.5 % (20.0-45.0) L Monocytes (%) (Auto) 5.7 % (1.0-10.0) Eosinophils (%) (Auto) 0.1 % (0.0-3.0) Basophils (%) (Auto) 0.4 % (0.0-2.0) Sodium Level 134 MMOL/L (136-145) L Potassium Level 4.5 MMOL/L (3.5-5.1) Chloride Level 99 MMOL/L (98-107) Carbon Dioxide Level 18 MMOL/L (21-32) L Anion Gap 18 mmol/L (5-15) H Blood Urea Nitrogen 28 mg/dL (7-18) H Creatinine 1.7 MG/DL (0.55-1.30) H Estimat Glomerular Filtration Rate 39.4 mL/min (>60) Glucose Level 532 MG/DL (74-106) #*H Calcium Level 7.9 MG/DL (8.5-10.1) L Phosphorus Level 2.7 MG/DL (2.5-4.9) Magnesium Level 1.8 MG/DL (1.8-2.4) Iron Level 39 ug/dL (50-175) L Total Iron Binding Capacity 298 ug/dL (250-450) Percent Iron Saturation 13 % (15-50) L Unsaturated Iron Binding 259 ug/dL (112-346) Ferritin 58 NG/ML (8-388) Total Bilirubin 0.5 MG/DL (0.2-1.0) Gamma Glutamyl Transpeptidase 26 U/L (5-85) Aspartate Amino Transf (AST/SGOT) 32 U/L (15-37) Alanine Aminotransferase (ALT/SGPT) 33 U/L (12-78) Alkaline Phosphatase 91 U/L (46-116) Pro-B-Type Natriuretic Peptide 473 pg/mL (0-125) H Total Protein 6.9 G/DL (6.4-8.2) Albumin 3.0 G/DL (3.4-5.0) L Globulin 3.9 g/dL Albumin/Globulin Ratio 0.8 (1.0-2.7) L Vitamin B12 Level 1781 PG/ML (193-986) H Folate 17.2 NG/ML (8.6-58.9) Height (Feet): 5 Height (Inches): 1.00 Weight (Pounds): 110 Medications Current Medications Medications (Trade) Dose Ordered Sig/Lizbeth Route PRN Reason Start Time Stop Time Status Last Admin Dose Admin Acetaminophen (Tylenol) 650 mg Q4H PRN ORAL fever 08/06/17 15:00 09/05/17 14:59 Albuterol/ Ipratropium (Albuterol/ Ipratropium) 3 ml Q4H PRN HHN Shortness of Breath 08/06/17 15:00 08/11/17 14:59 Amlodipine Besylate (Norvasc) 10 mg DAILY ORAL 08/09/17 09:00 09/08/17 08:59 Clonidine HCl (Catapres Tab) 0.1 mg Q4H PRN ORAL SBP > 160 08/06/17 15:00 09/05/17 14:59 Dextrose (Dextrose 50%) STAT PRN IV Hypoglycemia 08/07/17 05:45 09/06/17 05:44 Heparin Sodium (Porcine) (Heparin 5000 units/ml) 5,000 units EVERY 12 HOURS SUBQ 08/06/17 21:00 09/05/17 20:59 08/08/17 09:40 Insulin Aspart (NovoLOG) BEFORE MEALS AND HS SUBQ 08/06/17 16:30 09/05/17 16:29 08/08/17 12:08 Insulin Aspart (NovoLOG) 5 units NOVOTIAC SUBQ 08/07/17 06:30 09/06/17 06:29 08/08/17 12:06 Insulin Detemir (Levemir) 15 units DAILY SUBQ 08/07/17 09:00 09/06/17 08:59 08/08/17 09:39 Lansoprazole (Prevacid) 30 mg BID ORAL 08/08/17 18:00 09/07/17 17:59 UNV Morphine Sulfate (Morphine Sulfate) 2 mg Q4H PRN IVP severe pain 7-10 08/06/17 15:00 08/13/17 14:59 08/08/17 09:45 Nitroglycerin (Ntg) 0.4 mg Q5M X 3 DOSES PRN SL Prn Chest Pain 08/06/17 15:00 09/05/17 14:59 Non-Formulary Medication (Non-Formulary Med) 1 ea DAILY ORAL 08/09/17 09:00 09/08/17 08:59 UNV Ondansetron HCl (Zofran) 4 mg Q6H PRN IVP Nausea & Vomiting 08/06/17 15:00 09/05/17 14:59 08/06/17 15:44 Polyethylene Glycol (Miralax) 17 gm HSPRN PRN ORAL Constipation 08/06/17 15:00 09/05/17 14:59 Pregabalin (Lyrica) 50 mg BID ORAL 08/08/17 18:00 09/07/17 17:59 Sodium Chloride 1,000 ml @ 75 mls/hr [id number] IVLG 08/08/17 14:00 09/07/17 13:59 Temazepam (Restoril) 15 mg HSPRN PRN ORAL Insomnia 08/06/17 15:00 08/13/17 14:59 Assessment/Plan Status: stable, progressing Assessment/Plan mdd remeron 7.5 mg qhs Elisha Hardy M.D. Aug 08, 2017 12:37
--- NOTE | 2017-08-08 12:38 | General Progress Note ---
Assessment/Plan Status: stable Assessment/Plan Assessment/Plan Status: stable, progressing Assessment/Plan mdd remeron 7.5 mg qhs Subjective Date patient seen: Aug 08, 2017 Neurologic/Psychiatric: Reports: anxiety, depressed, emotional problems Allergies: Coded Allergies: No Known Allergies (Unverified , 04/24/14) Objective Last 24 Hour Vital Signs Date Time Temp Pulse Resp B/P (MAP) Pulse Ox O2 Delivery O2 Flow Rate FiO2 08/08/17 08:20 97.9 90 17 132/67 Room Air 97.9 08/08/17 04:00 98.5 97 18 152/74 96 Room Air 98.5 08/08/17 00:00 97.5 84 20 104/55 93 97.5 08/07/17 20:12 82 18 Room Air 08/07/17 20:00 97.7 88 20 112/63 96 97.7 08/07/17 19:13 98.4 08/07/17 16:00 98.4 81 20 93/40 98.4 Intake and Output 08/07/17 08/08/17 19:00 07:00 Intake Total 2710 ml 1650 ml Output Total 1300 ml Balance 2710 ml 350 ml Intake Oral 960 ml IV Total 1750 ml 1650 ml Output Urine Total 1300 ml # Voids 2 Laboratory Tests 08/07/17 13:30: Urine Color Yellow, Urine Appearance Clear, Urine pH 5, Urine Specific [place] 1.020, Urine Protein 2+H, Urine Glucose (UA) 3+H, Urine Ketones 2+H, Urine Occult Blood Negative, Urine Nitrite Negative, Urine Bilirubin Negative, Urine Urobilinogen Normal, Urine Leukocyte Esterase 1+H, Urine RBC 0-2, Urine WBC 2-4 , Urine Squamous Epithelial Cells Few, Urine Bacteria Few, Urine HCG, Qualitative Negative 08/07/17 23:00: Urine Opiates Screen PositiveH, Urine Barbiturates Screen Negative, Phencyclidine (PCP) Screen Negative, Urine Amphetamines Screen Negative, Urine Benzodiazepines Screen Negative, Urine Cocaine Screen Negative, Urine Marijuana (THC) Screen Negative 08/08/17 06:47: White Blood Count 7.7, Red Blood Count 3.50L, Hemoglobin 10.9L, Hematocrit 34.8L , Mean Corpuscular Volume 100H, Mean Corpuscular Hemoglobin 31.1H, Mean Corpuscular Hemoglobin Concent 31.3L, Red Cell Distribution Width 14.6, Platelet Count 211, Mean Platelet Volume 7.8, Neutrophils (%) (Auto) 83.2H, Lymphocytes (%) (Auto) 10.5L, Monocytes (%) (Auto) 5.7, Eosinophils (%) (Auto) 0.1, Basophils (%) (Auto) 0.4, Sodium Level 134L, Potassium Level 4.5, Chloride Level 99, Carbon Dioxide Level 18L, Anion Gap 18H, Blood Urea Nitrogen 28H, Creatinine 1.7H, Estimat Glomerular Filtration Rate 39.4, Glucose Level 532#*H, Calcium Level 7.9L, Phosphorus Level 2.7, Magnesium Level 1.8, Iron Level 39L, Total Iron Binding Capacity 298, Percent Iron Saturation 13L, Unsaturated Iron Binding 259, Ferritin 58, Total Bilirubin 0.5, Gamma Glutamyl Transpeptidase 26 , Aspartate Amino Transf (AST/SGOT) 32, Alanine Aminotransferase (ALT/SGPT) 33, Alkaline Phosphatase 91, Pro-B-Type Natriuretic Peptide 473H, Total Protein 6.9 , Albumin 3.0L, Globulin 3.9, Albumin/Globulin Ratio 0.8L, Vitamin B12 Level 1781H, Folate 17.2 Height (Feet): 5 Height (Inches): 1.00 Weight (Pounds): 110 General Appearance: no apparent distress, alert Neurologic: alert, oriented x 3, responsive, depressed affect Elisha Hardy M.D. Aug 08, 2017 12:38
[2017-08-08 16:06] VITALS: BP 140/89
--- NOTE | 2017-08-08 16:36 | Pulmonology Progress Note ---
Assessment/Plan Problems: (1) Uncontrolled diabetes mellitus (2) Renal insufficiency (3) Encephalopathy (4) Major depression (5) HTN (hypertension) Assessment/Plan renal function better sliding scale, slightly better iv fluids check electrolytes f/u renal and endo recommendations symptomatic treatment Subjective ROS Limited/Unobtainable: No Constitutional: Reports: no symptoms HEENT: Repors: no symptoms Respiratory: Reports: no symptoms Allergies: Coded Allergies: No Known Allergies (Unverified , 04/24/14) Objective Last 24 Hour Vital Signs Date Time Temp Pulse Resp B/P (MAP) Pulse Ox O2 Delivery O2 Flow Rate FiO2 08/08/17 16:06 97.1 91 21 140/89 99 Room Air 97.1 08/08/17 12:20 98.4 92 18 147/78 98 Room Air 98.4 08/08/17 08:20 97.9 90 17 132/67 Room Air 97.9 08/08/17 06:42 84 16 Room Air 08/08/17 04:00 98.5 97 18 152/74 96 Room Air 98.5 08/08/17 00:00 97.5 84 20 104/55 93 97.5 08/07/17 20:12 82 18 Room Air 08/07/17 20:00 97.7 88 20 112/63 96 97.7 08/07/17 19:13 98.4 Intake and Output 08/07/17 08/08/17 19:00 07:00 Intake Total 2710 ml 1650 ml Output Total 1300 ml Balance 2710 ml 350 ml Intake Oral 960 ml IV Total 1750 ml 1650 ml Output Urine Total 1300 ml # Voids 2 Objective General Appearance: cachetic Lines, tubes and drains: peripheral HEENT: normocephalic, atraumatic Neck: non-tender, supple Respiratory/Chest: chest wall non-tender, lungs clear Breasts: no masses Abdomen: normal bowel sounds, no organomegaly Genitourinary/Rectal: normal genital exam Microbiology Date/Time Source Procedure Growth Status 08/07/17 00:30 Urine,Clean Catch Urine Culture - Preliminary NO GROWTH Resulted Laboratory Tests 08/07/17 23:00: Urine Opiates Screen PositiveH, Urine Barbiturates Screen Negative, Phencyclidine (PCP) Screen Negative, Urine Amphetamines Screen Negative, Urine Benzodiazepines Screen Negative, Urine Cocaine Screen Negative, Urine Marijuana (THC) Screen Negative 08/08/17 06:47: White Blood Count 7.7, Red Blood Count 3.50L, Hemoglobin 10.9L, Hematocrit 34.8L , Mean Corpuscular Volume 100H, Mean Corpuscular Hemoglobin 31.1H, Mean Corpuscular Hemoglobin Concent 31.3L, Red Cell Distribution Width 14.6, Platelet Count 211, Mean Platelet Volume 7.8, Neutrophils (%) (Auto) 83.2H, Lymphocytes (%) (Auto) 10.5L, Monocytes (%) (Auto) 5.7, Eosinophils (%) (Auto) 0.1, Basophils (%) (Auto) 0.4, Sodium Level 134L, Potassium Level 4.5, Chloride Level 99, Carbon Dioxide Level 18L, Anion Gap 18H, Blood Urea Nitrogen 28H, Creatinine 1.7H, Estimat Glomerular Filtration Rate 39.4, Glucose Level 532#*H, Calcium Level 7.9L, Phosphorus Level 2.7, Magnesium Level 1.8, Iron Level 39L, Total Iron Binding Capacity 298, Percent Iron Saturation 13L, Unsaturated Iron Binding 259, Ferritin 58, Total Bilirubin 0.5, Gamma Glutamyl Transpeptidase 26 , Aspartate Amino Transf (AST/SGOT) 32, Alanine Aminotransferase (ALT/SGPT) 33, Alkaline Phosphatase 91, Pro-B-Type Natriuretic Peptide 473H, Total Protein 6.9 , Albumin 3.0L, Globulin 3.9, Albumin/Globulin Ratio 0.8L, Vitamin B12 Level 1781H, Folate 17.2 Current Medications Medications (Trade) Dose Ordered Sig/Lizbeth Route PRN Reason Start Time Stop Time Status Last Admin Dose Admin Acetaminophen (Tylenol) 650 mg Q4H PRN ORAL fever 08/06/17 15:00 09/05/17 14:59 Albuterol/ Ipratropium (Albuterol/ Ipratropium) 3 ml Q4H PRN HHN Shortness of Breath 08/06/17 15:00 08/11/17 14:59 Amlodipine Besylate (Norvasc) 10 mg DAILY ORAL 08/09/17 09:00 09/08/17 08:59 Clonidine HCl (Catapres Tab) 0.1 mg Q4H PRN ORAL SBP > 160 08/06/17 15:00 09/05/17 14:59 Dextrose (Dextrose 50%) STAT PRN IV Hypoglycemia 08/07/17 05:45 09/06/17 05:44 Heparin Sodium (Porcine) (Heparin 5000 units/ml) 5,000 units EVERY 12 HOURS SUBQ 08/06/17 21:00 09/05/17 20:59 Insulin Aspart (NovoLOG) BEFORE MEALS AND HS SUBQ 08/06/17 16:30 09/05/17 16:29 08/08/17 12:08 Insulin Aspart (NovoLOG) 5 units NOVOTIAC SUBQ 08/07/17 06:30 09/06/17 06:29 08/08/17 12:06 Insulin Detemir (Levemir) 15 units DAILY SUBQ 08/07/17 09:00 09/06/17 08:59 08/08/17 09:39 Irbesartan (Avapro) 150 mg Q12HR ORAL 08/08/17 21:00 09/07/17 20:59 Lansoprazole (Prevacid) 30 mg BID ORAL 08/08/17 18:00 09/07/17 17:59 Mirtazapine (Remeron) 7.5 mg BEDTIME ORAL 08/08/17 21:00 09/07/17 20:59 Morphine Sulfate (Morphine Sulfate) 2 mg Q4H PRN IVP severe pain 7-10 08/06/17 15:00 08/13/17 14:59 08/08/17 16:13 Nitroglycerin (Ntg) 0.4 mg Q5M X 3 DOSES PRN SL Prn Chest Pain 08/06/17 15:00 09/05/17 14:59 Ondansetron HCl (Zofran) 4 mg Q6H PRN IVP Nausea & Vomiting 08/06/17 15:00 09/05/17 14:59 08/06/17 15:44 Polyethylene Glycol (Miralax) 17 gm HSPRN PRN ORAL Constipation 08/06/17 15:00 09/05/17 14:59 Pregabalin (Lyrica) 50 mg BID ORAL 08/08/17 18:00 09/07/17 17:59 Sodium Chloride 1,000 ml @ 75 mls/hr [id number] IVLG 08/08/17 14:00 09/07/17 13:59 08/08/17 16:15 Temazepam (Restoril) 15 mg HSPRN PRN ORAL Insomnia 08/06/17 15:00 08/13/17 14:59 VANESSA SAGASTUME Aug 08, 2017 16:36
--- NOTE | 2017-08-08 17:42 | Internal Med Progress Note ---
Subjective Date of Service: Aug 08, 2017 Physician Name Christos Jacobsen Attending Physician Aries Hardin MD Current Medications Medications (Trade) Dose Ordered Sig/Lizbeth Route PRN Reason Start Time Stop Time Status Last Admin Dose Admin Acetaminophen (Tylenol) 650 mg Q4H PRN ORAL fever 08/06/17 15:00 09/05/17 14:59 Albuterol/ Ipratropium (Albuterol/ Ipratropium) 3 ml Q4H PRN HHN Shortness of Breath 08/06/17 15:00 08/11/17 14:59 Amlodipine Besylate (Norvasc) 10 mg DAILY ORAL 08/09/17 09:00 09/08/17 08:59 Clonidine HCl (Catapres Tab) 0.1 mg Q4H PRN ORAL SBP > 160 08/06/17 15:00 09/05/17 14:59 Dextrose (Dextrose 50%) STAT PRN IV Hypoglycemia 08/07/17 05:45 09/06/17 05:44 Heparin Sodium (Porcine) (Heparin 5000 units/ml) 5,000 units EVERY 12 HOURS SUBQ 08/06/17 21:00 09/05/17 20:59 Insulin Aspart (NovoLOG) BEFORE MEALS AND HS SUBQ 08/06/17 16:30 09/05/17 16:29 08/08/17 17:13 Insulin Aspart (NovoLOG) 5 units NOVOTIAC SUBQ 08/07/17 06:30 09/06/17 06:29 08/08/17 17:12 Insulin Detemir (Levemir) 15 units DAILY SUBQ 08/07/17 09:00 09/06/17 08:59 08/08/17 09:39 Irbesartan (Avapro) 150 mg Q12HR ORAL 08/08/17 21:00 09/07/17 20:59 Lansoprazole (Prevacid) 30 mg BID ORAL 08/08/17 18:00 09/07/17 17:59 Mirtazapine (Remeron) 7.5 mg BEDTIME ORAL 08/08/17 21:00 09/07/17 20:59 Morphine Sulfate (Morphine Sulfate) 2 mg Q4H PRN IVP severe pain 7-10 08/06/17 15:00 08/13/17 14:59 08/08/17 16:13 Nitroglycerin (Ntg) 0.4 mg Q5M X 3 DOSES PRN SL Prn Chest Pain 08/06/17 15:00 09/05/17 14:59 Ondansetron HCl (Zofran) 4 mg Q6H PRN IVP Nausea & Vomiting 08/06/17 15:00 09/05/17 14:59 08/06/17 15:44 Polyethylene Glycol (Miralax) 17 gm HSPRN PRN ORAL Constipation 08/06/17 15:00 09/05/17 14:59 Pregabalin (Lyrica) 50 mg BID ORAL 08/08/17 18:00 09/07/17 17:59 Sodium Chloride 1,000 ml @ 75 mls/hr [id number] IVLG 08/08/17 14:00 09/07/17 13:59 08/08/17 16:15 Temazepam (Restoril) 15 mg HSPRN PRN ORAL Insomnia 08/06/17 15:00 08/13/17 14:59 Allergies: Coded Allergies: No Known Allergies (Unverified , 04/24/14) ROS Limited/Unobtainable: No Constitutional: Reports: no symptoms HEENT: Reports: no symptoms Cardiovascular: Reports: no symptoms Respiratory: Reports: no symptoms Gastrointestinal/Abdominal: Reports: no symptoms Genitourinary: Reports: no symptoms Neurologic/Psychiatric: Reports: no symptoms Subjective 46 YO F admitted with nausea, vomiting and hyperglycemia due to malfunction of insulin pump. Accucheck = 134-261. Cover for Int Alejo-Dr Hardin. Objective Last Vital Signs Date Time Temp Pulse Resp B/P (MAP) Pulse Ox O2 Delivery O2 Flow Rate FiO2 08/08/17 16:06 97.1 91 21 140/89 99 Room Air 97.1 Laboratory Tests Test 08/07/17 23:00 08/08/17 06:47 Urine Opiates Screen Positive (NEGATIVE) H Urine Barbiturates Screen Negative (NEGATIVE) Phencyclidine (PCP) Screen Negative (NEGATIVE) Urine Amphetamines Screen Negative (NEGATIVE) Urine Benzodiazepines Screen Negative (NEGATIVE) Urine Cocaine Screen Negative (NEGATIVE) Urine Marijuana (THC) Screen Negative (NEGATIVE) White Blood Count 7.7 K/UL (4.8-10.8) Red Blood Count 3.50 M/UL (4.20-5.40) L Hemoglobin 10.9 G/DL (12.0-16.0) L Hematocrit 34.8 % (37.0-47.0) L Mean Corpuscular Volume 100 FL (80-99) H Mean Corpuscular Hemoglobin 31.1 PG (27.0-31.0) H Mean Corpuscular Hemoglobin Concent 31.3 G/DL (32.0-36.0) L Red Cell Distribution Width 14.6 % (11.6-14.8) Platelet Count 211 K/UL (150-450) Mean Platelet Volume 7.8 FL (6.5-10.1) Neutrophils (%) (Auto) 83.2 % (45.0-75.0) H Lymphocytes (%) (Auto) 10.5 % (20.0-45.0) L Monocytes (%) (Auto) 5.7 % (1.0-10.0) Eosinophils (%) (Auto) 0.1 % (0.0-3.0) Basophils (%) (Auto) 0.4 % (0.0-2.0) Sodium Level 134 MMOL/L (136-145) L Potassium Level 4.5 MMOL/L (3.5-5.1) Chloride Level 99 MMOL/L (98-107) Carbon Dioxide Level 18 MMOL/L (21-32) L Anion Gap 18 mmol/L (5-15) H Blood Urea Nitrogen 28 mg/dL (7-18) H Creatinine 1.7 MG/DL (0.55-1.30) H Estimat Glomerular Filtration Rate 39.4 mL/min (>60) Glucose Level 532 MG/DL (74-106) #*H Calcium Level 7.9 MG/DL (8.5-10.1) L Phosphorus Level 2.7 MG/DL (2.5-4.9) Magnesium Level 1.8 MG/DL (1.8-2.4) Iron Level 39 ug/dL (50-175) L Total Iron Binding Capacity 298 ug/dL (250-450) Percent Iron Saturation 13 % (15-50) L Unsaturated Iron Binding 259 ug/dL (112-346) Ferritin 58 NG/ML (8-388) Total Bilirubin 0.5 MG/DL (0.2-1.0) Gamma Glutamyl Transpeptidase 26 U/L (5-85) Aspartate Amino Transf (AST/SGOT) 32 U/L (15-37) Alanine Aminotransferase (ALT/SGPT) 33 U/L (12-78) Alkaline Phosphatase 91 U/L (46-116) Pro-B-Type Natriuretic Peptide 473 pg/mL (0-125) H Total Protein 6.9 G/DL (6.4-8.2) Albumin 3.0 G/DL (3.4-5.0) L Globulin 3.9 g/dL Albumin/Globulin Ratio 0.8 (1.0-2.7) L Vitamin B12 Level 1781 PG/ML (193-986) H Folate 17.2 NG/ML (8.6-58.9) Microbiology Date/Time Source Procedure Growth Status 08/07/17 00:30 Urine,Clean Catch Urine Culture - Preliminary NO GROWTH Resulted Intake and Output 08/07/17 08/08/17 19:00 07:00 Intake Total 2710 ml 1650 ml Output Total 1300 ml Balance 2710 ml 350 ml Intake Oral 960 ml IV Total 1750 ml 1650 ml Output Urine Total 1300 ml # Voids 2 Objective General Appearance: WD/WN, alert, mild distress EENT: PERRL/EOMI, normal ENT inspection Neck: non-tender, normal alignment, supple, normal inspection Cardiovascular: normal peripheral pulses, normal rate, regular rhythm, no gallop/murmur, no JVD Respiratory/Chest: chest wall non-tender, lungs clear, normal breath sounds, no respiratory distress, no accessory muscle use Abdomen: normal bowel sounds, non tender, soft, no organomegaly, no mass Extremities: normal range of motion, non-tender 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 Cont norm saline IV fluids. (2) Intractable nausea and vomiting Assessment & Plan: Resolved. continue zofran (3) Hyperglycemia Assessment & Plan: Due to malfunction of insulin pump. D/C insulin pump per endocrinology. Start levemir and novolog sliding scale. (4) ARF (acute renal failure) (5) Diabetic ketoacidosis, type I Assessment & Plan: Better control. [id number] (6) Diabetes mellitus type 1, uncontrolled, insulin dependent Assessment & Plan: See endocrinology note. (7) HTN (hypertension) Assessment & Plan: stable (8) Diabetic nephropathy (9) Renal failure Assessment & Plan: Due to dehydration due to DKA. see nephrology note. Status: progressing CHRISTOS JACOBSEN Aug 08, 2017 17:42
[2017-08-08] MEDS: Lyrica 50mg cap ORAL SCH (18:40)
[2017-08-08 20:00] VITALS: BP 131/75
[2017-08-08] MEDS: Irbesartan 150mg tablet ORAL SCH (20:42)
[2017-08-09] VITALS: BP 169/95
[2017-08-09] MEDS: Morphine Sulfate 4mg/ml Inj IVP PRN ×3 (00:36→21:54)
[2017-08-09 04:00] VITALS: BP 185/106
[2017-08-09] MEDS: NovoLOG Insulin Flexpen SUBQ SCH ×7 (06:10→21:50)
[2017-08-09 06:34] LABS: BASOPHILS % (AUTO) 1.1 % (0.0-2.0); EOSINOPHILS % (AUTO) 0.5 % (0.0-3.0); HEMATOCRIT 31.7 % (37.0-47.0); HEMOGLOBIN 10.5 G/DL (12.0-16.0); LYMPHOCYTES % (AUTO) 38.4 % (20.0-45.0); MEAN CORPUSCULAR VOLUME 95 FL (80-99); MONOCYTES % (AUTO) 8.7 % (1.0-10.0); NEUTROPHILS % (AUTO) 51.3 % (45.0-75.0); PLATELET COUNT 187 K/UL (150-450); RED BLOOD COUNT 3.35 M/UL (4.20-5.40); RED CELL DISTRIBUTION WIDTH 14.1 % (11.6-14.8); WHITE BLOOD COUNT 4.6 K/UL (4.8-10.8)
[2017-08-09 07:04] LABS: ANION GAP 9 mmol/L (5-15); BLOOD UREA NITROGEN 16 mg/dL (7-18); CALCIUM 8.1 MG/DL (8.5-10.1); CARBON DIOXIDE 28 MMOL/L (21-32); CHLORIDE 100 MMOL/L (98-107); CREATININE 1.4 MG/DL (0.55-1.30); POTASSIUM 4.2 MMOL/L (3.5-5.1); SODIUM 137 MMOL/L (136-145)
--- NOTE | 2017-08-09 07:21 | General Progress Note ---
Assessment/Plan Problem List: (1) Diabetes mellitus type 1, uncontrolled, insulin dependent ICD Codes: E10.65 - Type 1 diabetes mellitus with hyperglycemia SNOMED: 64321526, 567316224 (2) GERD (gastroesophageal reflux disease) ICD Codes: K21.9 - Gastro-esophageal reflux disease without esophagitis SNOMED: 471803092 (3) Anemia ICD Codes: D64.9 - Anemia, unspecified SNOMED: 967923840 Assessment/Plan continue Levemir 15 units daily continue Novolog 5 units ac tid + NISS resume insulin pump therapy + sensor as OP Subjective Allergies: Coded Allergies: No Known Allergies (Unverified , 04/24/14) All Systems: reviewed and negative except above Subjective she is doing better I asked [employer] CDE - to call Tricia trouble shooting of insulin pump was discussed and she will be started on sensor next week this morning glucose elevated due to late snack Objective Last 24 Hour Vital Signs Date Time Temp Pulse Resp B/P (MAP) Pulse Ox O2 Delivery O2 Flow Rate FiO2 08/09/17 05:05 185/106 08/09/17 04:00 98.3 90 18 185/106 93 Room Air 98.3 08/09/17 01:05 169/95 08/09/17 00:00 98.3 91 18 169/95 96 Room Air 98.3 08/08/17 20:42 131/75 08/08/17 20:15 80 16 Room Air 08/08/17 20:00 98.7 87 18 131/75 96 Room Air 98.7 08/08/17 16:06 97.1 91 21 140/89 99 Room Air 97.1 08/08/17 12:20 98.4 92 18 147/78 98 Room Air 98.4 08/08/17 08:20 97.9 90 17 132/67 Room Air 97.9 Intake and Output 08/08/17 08/09/17 19:00 07:00 Intake Total 1455 ml 975 ml Output Total 400 ml 3600 ml Balance 1055 ml -2625 ml Intake Oral 480 ml 150 ml IV Total 975 ml 825 ml Output Urine Total 400 ml 3600 ml Laboratory Tests 08/09/17 05:50: White Blood Count 4.6L, Red Blood Count 3.35L, Hemoglobin 10.5L, Hematocrit 31.7L, Mean Corpuscular Volume 95, Mean Corpuscular Hemoglobin 31.3H, Mean Corpuscular Hemoglobin Concent 33.1, Red Cell Distribution Width 14.1, Platelet Count 187, Mean Platelet Volume 8.5, Neutrophils (%) (Auto) 51.3, Lymphocytes (% ) (Auto) 38.4, Monocytes (%) (Auto) 8.7, Eosinophils (%) (Auto) 0.5, Basophils ( %) (Auto) 1.1, Sodium Level 137, Potassium Level 4.2, Chloride Level 100, Carbon Dioxide Level 28, Anion Gap 9, Blood Urea Nitrogen 16, Creatinine 1.4H, Estimat Glomerular Filtration Rate 49.3, Glucose Level 434H, Calcium Level 8.1L Height (Feet): 5 Height (Inches): 1.00 Weight (Pounds): 110 General Appearance: no apparent distress Neck: normal alignment Respiratory/Chest: lungs clear Abdomen: normal bowel sounds Pelvis: normal external exam Objective Current Medications Medications (Trade) Dose Ordered Sig/Lizbeth Route PRN Reason Start Time Stop Time Status Last Admin Dose Admin Acetaminophen (Tylenol) 650 mg Q4H PRN ORAL fever 08/06/17 15:00 09/05/17 14:59 Albuterol/ Ipratropium (Albuterol/ Ipratropium) 3 ml Q4H PRN HHN Shortness of Breath 08/06/17 15:00 08/11/17 14:59 Amlodipine Besylate (Norvasc) 10 mg DAILY ORAL 08/09/17 09:00 09/08/17 08:59 Clonidine HCl (Catapres Tab) 0.1 mg Q4H PRN ORAL SBP > 160 08/06/17 15:00 09/05/17 14:59 08/09/17 05:05 Dextrose (Dextrose 50%) STAT PRN IV Hypoglycemia 08/07/17 05:45 09/06/17 05:44 Heparin Sodium (Porcine) (Heparin 5000 units/ml) 5,000 units EVERY 12 HOURS SUBQ 08/06/17 21:00 09/05/17 20:59 Insulin Aspart (NovoLOG) BEFORE MEALS AND HS SUBQ 08/06/17 16:30 09/05/17 16:29 08/09/17 06:10 Insulin Aspart (NovoLOG) 5 units NOVOTIAC SUBQ 08/07/17 06:30 09/06/17 06:29 08/09/17 06:10 Insulin Detemir (Levemir) 15 units DAILY SUBQ 08/07/17 09:00 09/06/17 08:59 08/08/17 09:39 Irbesartan (Avapro) 150 mg Q12HR ORAL 08/08/17 21:00 09/07/17 20:59 08/08/17 20:42 Lansoprazole (Prevacid) 30 mg BID ORAL 08/08/17 18:00 09/07/17 17:59 08/08/17 18:40 Mirtazapine (Remeron) 7.5 mg BEDTIME ORAL 08/08/17 21:00 09/07/17 20:59 08/08/17 20:41 Morphine Sulfate (Morphine Sulfate) 2 mg Q4H PRN IVP severe pain 7-10 08/06/17 15:00 08/13/17 14:59 08/09/17 00:36 Nitroglycerin (Ntg) 0.4 mg Q5M X 3 DOSES PRN SL Prn Chest Pain 08/06/17 15:00 09/05/17 14:59 Ondansetron HCl (Zofran) 4 mg Q6H PRN IVP Nausea & Vomiting 08/06/17 15:00 09/05/17 14:59 08/06/17 15:44 Polyethylene Glycol (Miralax) 17 gm HSPRN PRN ORAL Constipation 08/06/17 15:00 09/05/17 14:59 Pregabalin (Lyrica) 50 mg BID ORAL 08/08/17 18:00 09/07/17 17:59 08/08/17 18:40 Sodium Chloride 1,000 ml @ 75 mls/hr [id number] IVLG 08/08/17 14:00 09/07/17 13:59 08/08/17 16:15 Temazepam (Restoril) 15 mg HSPRN PRN ORAL Insomnia 08/06/17 15:00 08/13/17 14:59 Item Value Date Time Bedside Blood Glucose 400 mg/dl H 08/09/17 0610 Bedside Blood Glucose 155 mg/dl H 08/08/17 2052 Bedside Blood Glucose 134 mg/dl H 08/08/17 1713 Bedside Blood Glucose 261 mg/dl H 08/08/17 1208 Bedside Blood Glucose 313 mg/dl H 08/08/17 0939 Bedside Blood Glucose 504 mg/dl H 08/08/17 0619 IVY SULLIVAN Aug 09, 2017 07:21
[2017-08-09 08:00] VITALS: BP 137/78
[2017-08-09] MEDS: Heparin 5000 units/ml inj SUBQ SCH ×2 (09:00→21:00)
[2017-08-09] MEDS: Irbesartan 150mg tablet ORAL SCH ×2 (09:56→21:40)
[2017-08-09] MEDS: Lyrica 50mg cap ORAL SCH ×2 (09:57→18:09)
[2017-08-09] MEDS: Levemir Flexpen SUBQ SCH (10:00)
[2017-08-09 12:00] VITALS: BP 180/99
--- NOTE | 2017-08-09 14:12 | Nephrology Progress Note ---
Assessment/Plan Problem List: (1) ARF (acute renal failure) (2) Vomiting (3) Anemia (4) Hypotension Assessment Renal failure ? acute- ? underlying diabetic kidney disease Cr addie - Nausea with vomiting. - Hyperglycemia. - Diabetes type 1. - Hyponatremia. - Hypertension. presents with hypotension - Diabetic nephropathy. - Gastroesophageal reflux disease. - Anemia Plan Plan: DC Jay DC IV fluids Add TTS 3 and Lopressor monitor renal parameters Keep BP over 100 syst Keep BS in check avoid nephrotoxics Subjective ROS Limited/Unobtainable: No Constitutional: Reports: other - stronger Objective Objective Last 24 Hour Vital Signs Date Time Temp Pulse Resp B/P (MAP) Pulse Ox O2 Delivery O2 Flow Rate FiO2 08/09/17 12:29 98.2 08/09/17 12:00 98.2 87 20 180/99 96 98.2 08/09/17 12:00 180/99 08/09/17 11:59 97.8 08/09/17 09:57 94 185/106 08/09/17 09:56 185/106 08/09/17 08:00 97.8 80 18 137/78 99 97.8 08/09/17 07:22 94 18 Room Air 21 08/09/17 05:05 185/106 08/09/17 04:00 98.3 90 18 185/106 93 Room Air 98.3 08/09/17 01:05 169/95 08/09/17 00:00 98.3 91 18 169/95 96 Room Air 98.3 08/08/17 20:42 131/75 08/08/17 20:15 80 16 Room Air 08/08/17 20:00 98.7 87 18 131/75 96 Room Air 98.7 08/08/17 16:06 97.1 91 21 140/89 99 Room Air 97.1 Intake and Output 08/08/17 08/09/17 19:00 07:00 Intake Total 1455 ml 1050 ml Output Total 400 ml 3600 ml Balance 1055 ml -2550 ml Intake Oral 480 ml 150 ml IV Total 975 ml 900 ml Output Urine Total 400 ml 3600 ml Laboratory Tests 08/09/17 05:50: White Blood Count 4.6L, Red Blood Count 3.35L, Hemoglobin 10.5L, Hematocrit 31.7L, Mean Corpuscular Volume 95, Mean Corpuscular Hemoglobin 31.3H, Mean Corpuscular Hemoglobin Concent 33.1, Red Cell Distribution Width 14.1, Platelet Count 187, Mean Platelet Volume 8.5, Neutrophils (%) (Auto) 51.3, Lymphocytes (% ) (Auto) 38.4, Monocytes (%) (Auto) 8.7, Eosinophils (%) (Auto) 0.5, Basophils ( %) (Auto) 1.1, Sodium Level 137, Potassium Level 4.2, Chloride Level 100, Carbon Dioxide Level 28, Anion Gap 9, Blood Urea Nitrogen 16, Creatinine 1.4H, Estimat Glomerular Filtration Rate 49.3, Glucose Level 434H, Calcium Level 8.1L Height (Feet): 5 Height (Inches): 1.00 Weight (Pounds): 110 General Appearance: no apparent distress Cardiovascular: tachycardia Respiratory/Chest: decreased breath sounds Abdomen: soft KYMBERLY SEAMAN Aug 09, 2017 14:12
[2017-08-09] MEDS ORDERED: Metoprolol Tartrate 12.5mg TAB ORAL ONE (14:30)
--- NOTE | 2017-08-09 15:23 | Pulmonology Progress Note ---
Assessment/Plan Problems: (1) Uncontrolled diabetes mellitus (2) Renal insufficiency (3) Encephalopathy (4) Major depression (5) HTN (hypertension) Assessment/Plan BP still [place], SBP was 19=80 renal function better sliding scale, slightly better iv fluids check electrolytes f/u renal and endo recommendations symptomatic treatment Subjective ROS Limited/Unobtainable: No Constitutional: Reports: no symptoms HEENT: Repors: no symptoms Respiratory: Reports: no symptoms Allergies: Coded Allergies: No Known Allergies (Unverified , 04/24/14) Objective Last 24 Hour Vital Signs Date Time Temp Pulse Resp B/P (MAP) Pulse Ox O2 Delivery O2 Flow Rate FiO2 08/09/17 12:29 98.2 08/09/17 12:00 98.2 87 20 180/99 96 98.2 08/09/17 12:00 180/99 08/09/17 11:59 97.8 08/09/17 09:57 94 185/106 08/09/17 09:56 185/106 08/09/17 08:00 97.8 80 18 137/78 99 97.8 08/09/17 07:22 94 18 Room Air 21 08/09/17 05:05 185/106 08/09/17 04:00 98.3 90 18 185/106 93 Room Air 98.3 08/09/17 01:05 169/95 08/09/17 00:00 98.3 91 18 169/95 96 Room Air 98.3 08/08/17 20:42 131/75 08/08/17 20:15 80 16 Room Air 08/08/17 20:00 98.7 87 18 131/75 96 Room Air 98.7 08/08/17 16:06 97.1 91 21 140/89 99 Room Air 97.1 Intake and Output 08/08/17 08/09/17 19:00 07:00 Intake Total 1455 ml 1050 ml Output Total 400 ml 3600 ml Balance 1055 ml -2550 ml Intake Oral 480 ml 150 ml IV Total 975 ml 900 ml Output Urine Total 400 ml 3600 ml Objective General Appearance: cachetic Lines, tubes and drains: peripheral HEENT: normocephalic, atraumatic Neck: non-tender, supple Respiratory/Chest: chest wall non-tender, lungs clear Breasts: no masses Abdomen: normal bowel sounds, no organomegaly Genitourinary/Rectal: normal genital exam Microbiology Date/Time Source Procedure Growth Status 08/07/17 00:30 Urine,Clean Catch Urine Culture - Preliminary Lactobacillus Species Resulted Laboratory Tests 08/09/17 05:50: White Blood Count 4.6L, Red Blood Count 3.35L, Hemoglobin 10.5L, Hematocrit 31.7L, Mean Corpuscular Volume 95, Mean Corpuscular Hemoglobin 31.3H, Mean Corpuscular Hemoglobin Concent 33.1, Red Cell Distribution Width 14.1, Platelet Count 187, Mean Platelet Volume 8.5, Neutrophils (%) (Auto) 51.3, Lymphocytes (% ) (Auto) 38.4, Monocytes (%) (Auto) 8.7, Eosinophils (%) (Auto) 0.5, Basophils ( %) (Auto) 1.1, Sodium Level 137, Potassium Level 4.2, Chloride Level 100, Carbon Dioxide Level 28, Anion Gap 9, Blood Urea Nitrogen 16, Creatinine 1.4H, Estimat Glomerular Filtration Rate 49.3, Glucose Level 434H, Calcium Level 8.1L Current Medications Medications (Trade) Dose Ordered Sig/Lizbeth Route PRN Reason Start Time Stop Time Status Last Admin Dose Admin Acetaminophen (Tylenol) 650 mg Q4H PRN ORAL fever 08/06/17 15:00 09/05/17 14:59 Albuterol/ Ipratropium (Albuterol/ Ipratropium) 3 ml Q4H PRN HHN Shortness of Breath 08/06/17 15:00 08/11/17 14:59 Amlodipine Besylate (Norvasc) 10 mg DAILY ORAL 08/10/17 09:00 09/09/17 08:59 Clonidine HCl (Catapres TTS-3) 1 patch QWEEK TDERMAL 08/09/17 15:00 09/08/17 14:59 Clonidine HCl (Catapres Tab) 0.1 mg Q4H PRN ORAL SBP > 160 08/06/17 15:00 09/05/17 14:59 08/09/17 12:00 Dextrose (Dextrose 50%) STAT PRN IV Hypoglycemia 08/07/17 05:45 09/06/17 05:44 Heparin Sodium (Porcine) (Heparin 5000 units/ml) 5,000 units EVERY 12 HOURS SUBQ 08/06/17 21:00 09/05/17 20:59 Insulin Aspart (NovoLOG) BEFORE MEALS AND HS SUBQ 08/06/17 16:30 09/05/17 16:29 08/09/17 12:02 Insulin Aspart (NovoLOG) 5 units NOVOTIAC SUBQ 08/07/17 06:30 09/06/17 06:29 08/09/17 12:03 Insulin Detemir (Levemir) 15 units DAILY SUBQ 08/07/17 09:00 09/06/17 08:59 08/09/17 10:00 Irbesartan (Avapro) 150 mg Q12HR ORAL 08/09/17 21:00 09/08/17 20:59 Lansoprazole (Prevacid) 30 mg BID ORAL 08/08/17 18:00 09/07/17 17:59 08/09/17 10:00 Metoprolol Tartrate (Lopressor) 12.5 mg Q12HR ORAL 08/09/17 21:00 09/08/17 20:59 Mirtazapine (Remeron) 7.5 mg BEDTIME ORAL 08/08/17 21:00 09/07/17 20:59 08/08/17 20:41 Morphine Sulfate (Morphine Sulfate) 2 mg Q4H PRN IVP severe pain 7-10 08/06/17 15:00 08/13/17 14:59 08/09/17 11:59 Nitroglycerin (Ntg) 0.4 mg Q5M X 3 DOSES PRN SL Prn Chest Pain 08/06/17 15:00 09/05/17 14:59 Ondansetron HCl (Zofran) 4 mg Q6H PRN IVP Nausea & Vomiting 08/06/17 15:00 09/05/17 14:59 08/06/17 15:44 Polyethylene Glycol (Miralax) 17 gm HSPRN PRN ORAL Constipation 08/06/17 15:00 09/05/17 14:59 Pregabalin (Lyrica) 50 mg BID ORAL 08/08/17 18:00 09/07/17 17:59 08/09/17 09:57 Temazepam (Restoril) 15 mg HSPRN PRN ORAL Insomnia 08/06/17 15:00 08/13/17 14:59 VANESSA SAGASTUME Aug 09, 2017 15:23
[2017-08-09 16:00] VITALS: BP 146/84
--- NOTE | 2017-08-09 16:04 | Internal Med Progress Note ---
Subjective Date of Service: Aug 09, 2017 Physician Name Christos Jacobsen Attending Physician Aries Hardin MD Current Medications Medications (Trade) Dose Ordered Sig/Lizbeth Route PRN Reason Start Time Stop Time Status Last Admin Dose Admin Acetaminophen (Tylenol) 650 mg Q4H PRN ORAL fever 08/06/17 15:00 09/05/17 14:59 Albuterol/ Ipratropium (Albuterol/ Ipratropium) 3 ml Q4H PRN HHN Shortness of Breath 08/06/17 15:00 08/11/17 14:59 Amlodipine Besylate (Norvasc) 10 mg DAILY ORAL 08/10/17 09:00 09/09/17 08:59 Clonidine HCl (Catapres TTS-3) 1 patch QWEEK TDERMAL 08/09/17 15:00 09/08/17 14:59 08/09/17 15:31 Clonidine HCl (Catapres Tab) 0.1 mg Q4H PRN ORAL SBP > 160 08/06/17 15:00 09/05/17 14:59 08/09/17 12:00 Dextrose (Dextrose 50%) STAT PRN IV Hypoglycemia 08/07/17 05:45 09/06/17 05:44 Heparin Sodium (Porcine) (Heparin 5000 units/ml) 5,000 units EVERY 12 HOURS SUBQ 08/06/17 21:00 09/05/17 20:59 Insulin Aspart (NovoLOG) BEFORE MEALS AND HS SUBQ 08/06/17 16:30 09/05/17 16:29 08/09/17 12:02 Insulin Aspart (NovoLOG) 5 units NOVOTIAC SUBQ 08/07/17 06:30 09/06/17 06:29 08/09/17 12:03 Insulin Detemir (Levemir) 15 units DAILY SUBQ 08/07/17 09:00 09/06/17 08:59 08/09/17 10:00 Irbesartan (Avapro) 150 mg Q12HR ORAL 08/09/17 21:00 09/08/17 20:59 Lansoprazole (Prevacid) 30 mg BID ORAL 08/08/17 18:00 09/07/17 17:59 08/09/17 10:00 Metoprolol Tartrate (Lopressor) 12.5 mg Q12HR ORAL 08/09/17 21:00 09/08/17 20:59 Mirtazapine (Remeron) 7.5 mg BEDTIME ORAL 08/08/17 21:00 09/07/17 20:59 08/08/17 20:41 Morphine Sulfate (Morphine Sulfate) 2 mg Q4H PRN IVP severe pain 7-10 08/06/17 15:00 08/13/17 14:59 08/09/17 11:59 Nitroglycerin (Ntg) 0.4 mg Q5M X 3 DOSES PRN SL Prn Chest Pain 08/06/17 15:00 09/05/17 14:59 Ondansetron HCl (Zofran) 4 mg Q6H PRN IVP Nausea & Vomiting 08/06/17 15:00 09/05/17 14:59 08/06/17 15:44 Polyethylene Glycol (Miralax) 17 gm HSPRN PRN ORAL Constipation 08/06/17 15:00 09/05/17 14:59 Pregabalin (Lyrica) 50 mg BID ORAL 08/08/17 18:00 09/07/17 17:59 08/09/17 09:57 Temazepam (Restoril) 15 mg HSPRN PRN ORAL Insomnia 08/06/17 15:00 08/13/17 14:59 Allergies: Coded Allergies: No Known Allergies (Unverified , 04/24/14) ROS Limited/Unobtainable: No Constitutional: Reports: no symptoms HEENT: Reports: no symptoms Cardiovascular: Reports: no symptoms Respiratory: Reports: no symptoms Gastrointestinal/Abdominal: Reports: no symptoms Genitourinary: Reports: no symptoms Neurologic/Psychiatric: Reports: no symptoms Subjective 46 YO F admitted with nausea, vomiting and hyperglycemia due to malfunction of insulin pump. Accucheck labile [id number]. Cover for Int Alejo-Dr Hardin. Objective Last Vital Signs Date Time Temp Pulse Resp B/P (MAP) Pulse Ox O2 Delivery O2 Flow Rate FiO2 08/09/17 15:31 180/99 08/09/17 15:30 87 08/09/17 12:29 98.2 08/09/17 12:00 20 96 08/09/17 07:22 Room Air 21 Laboratory Tests Test 08/09/17 05:50 White Blood Count 4.6 K/UL (4.8-10.8) L Red Blood Count 3.35 M/UL (4.20-5.40) L Hemoglobin 10.5 G/DL (12.0-16.0) L Hematocrit 31.7 % (37.0-47.0) L Mean Corpuscular Volume 95 FL (80-99) Mean Corpuscular Hemoglobin 31.3 PG (27.0-31.0) H Mean Corpuscular Hemoglobin Concent 33.1 G/DL (32.0-36.0) Red Cell Distribution Width 14.1 % (11.6-14.8) Platelet Count 187 K/UL (150-450) Mean Platelet Volume 8.5 FL (6.5-10.1) Neutrophils (%) (Auto) 51.3 % (45.0-75.0) Lymphocytes (%) (Auto) 38.4 % (20.0-45.0) Monocytes (%) (Auto) 8.7 % (1.0-10.0) Eosinophils (%) (Auto) 0.5 % (0.0-3.0) Basophils (%) (Auto) 1.1 % (0.0-2.0) Sodium Level 137 MMOL/L (136-145) Potassium Level 4.2 MMOL/L (3.5-5.1) Chloride Level 100 MMOL/L (98-107) Carbon Dioxide Level 28 MMOL/L (21-32) Anion Gap 9 mmol/L (5-15) Blood Urea Nitrogen 16 mg/dL (7-18) Creatinine 1.4 MG/DL (0.55-1.30) H Estimat Glomerular Filtration Rate 49.3 mL/min (>60) Glucose Level 434 MG/DL (74-106) H Calcium Level 8.1 MG/DL (8.5-10.1) L Microbiology Date/Time Source Procedure Growth Status 08/07/17 00:30 Urine,Clean Catch Urine Culture - Preliminary Lactobacillus Species Resulted Intake and Output 08/08/17 08/09/17 19:00 07:00 Intake Total 1455 ml 1050 ml Output Total 400 ml 3600 ml Balance 1055 ml -2550 ml Intake Oral 480 ml 150 ml IV Total 975 ml 900 ml Output Urine Total 400 ml 3600 ml Objective General Appearance: WD/WN, alert, mild distress EENT: PERRL/EOMI, normal ENT inspection Neck: non-tender, normal alignment, supple, normal inspection Cardiovascular: normal peripheral pulses, normal rate, regular rhythm, no gallop/murmur, no JVD Respiratory/Chest: chest wall non-tender, lungs clear, normal breath sounds, no respiratory distress, no accessory muscle use Abdomen: normal bowel sounds, non tender, soft, no organomegaly, no mass Extremities: normal range of motion, non-tender Neurologic: member [employer] II-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 Cont norm saline IV fluids. (2) Intractable nausea and vomiting Assessment & Plan: Resolved. continue zofran (3) Hyperglycemia Assessment & Plan: Due to malfunction of insulin pump. D/C insulin pump per endocrinology. Start levemir and novolog sliding scale. (4) ARF (acute renal failure) (5) Diabetic ketoacidosis, type I Assessment & Plan: Better control. [id number]=[phone] (6) Diabetes mellitus type 1, uncontrolled, insulin dependent Assessment & Plan: See endocrinology note. (7) HTN (hypertension) Assessment & Plan: stable (8) Diabetic nephropathy (9) Renal failure Assessment & Plan: Due to dehydration due to DKA. see nephrology note. Status: not improved CHRISTOS JACOBSEN Aug 09, 2017 16:04
--- NOTE | 2017-08-09 18:59 | General Progress Note ---
Assessment/Plan Status: stable, progressing Assessment/Plan Assessment/Plan Status: stable, progressing Assessment/Plan mdd remeron 7.5 mg qhs Subjective Date patient seen: Aug 09, 2017 Neurologic/Psychiatric: Reports: anxiety, depressed, emotional problems Allergies: Coded Allergies: No Known Allergies (Unverified , 04/24/14) Objective Last 24 Hour Vital Signs Date Time Temp Pulse Resp B/P (MAP) Pulse Ox O2 Delivery O2 Flow Rate FiO2 08/09/17 16:00 97.9 91 20 146/84 98 97.9 08/09/17 15:31 180/99 08/09/17 15:30 87 180/99 08/09/17 12:29 98.2 08/09/17 12:00 98.2 87 20 180/99 96 98.2 08/09/17 12:00 180/99 08/09/17 11:59 97.8 08/09/17 09:57 94 185/106 08/09/17 09:56 185/106 08/09/17 08:00 97.8 80 18 137/78 99 97.8 08/09/17 07:22 94 18 Room Air 21 08/09/17 05:05 185/106 08/09/17 04:00 98.3 90 18 185/106 93 Room Air 98.3 08/09/17 01:05 169/95 08/09/17 00:00 98.3 91 18 169/95 96 Room Air 98.3 08/08/17 20:42 131/75 08/08/17 20:15 80 16 Room Air 08/08/17 20:00 98.7 87 18 131/75 96 Room Air 98.7 Intake and Output 08/08/17 08/09/17 19:00 07:00 Intake Total 1455 ml 1050 ml Output Total 400 ml 3600 ml Balance 1055 ml -2550 ml Intake Oral 480 ml 150 ml IV Total 975 ml 900 ml Output Urine Total 400 ml 3600 ml Laboratory Tests 08/09/17 05:50: White Blood Count 4.6L, Red Blood Count 3.35L, Hemoglobin 10.5L, Hematocrit 31.7L, Mean Corpuscular Volume 95, Mean Corpuscular Hemoglobin 31.3H, Mean Corpuscular Hemoglobin Concent 33.1, Red Cell Distribution Width 14.1, Platelet Count 187, Mean Platelet Volume 8.5, Neutrophils (%) (Auto) 51.3, Lymphocytes (% ) (Auto) 38.4, Monocytes (%) (Auto) 8.7, Eosinophils (%) (Auto) 0.5, Basophils ( %) (Auto) 1.1, Sodium Level 137, Potassium Level 4.2, Chloride Level 100, Carbon Dioxide Level 28, Anion Gap 9, Blood Urea Nitrogen 16, Creatinine 1.4H, Estimat Glomerular Filtration Rate 49.3, Glucose Level 434H, Calcium Level 8.1L 08/09/17 16:55: Glucose Level 669#*H Height (Feet): 5 Height (Inches): 1.00 Weight (Pounds): 110 General Appearance: no apparent distress, alert Neurologic: alert, oriented x 3, responsive, depressed affect Elisha Hardy M.D. Aug 09, 2017 18:58
[2017-08-09 20:00] VITALS: BP 127/72
[2017-08-09] MEDS: Metoprolol Tartrate 12.5mg TAB ORAL SCH (21:41)
[2017-08-09] MEDS: Albuterol/Ipratropium 3ml neb HHN PRN (22:18)
[2017-08-10] VITALS: BP 119/52
[2017-08-10 04:00] VITALS: BP 146/88
[2017-08-10] MEDS: Albuterol/Ipratropium 3ml neb HHN PRN (04:03)
[2017-08-10] MEDS: Morphine Sulfate 4mg/ml Inj IVP PRN (04:12)
[2017-08-10 05:55] LABS: BASOPHILS % (AUTO) 0.7 % (0.0-2.0); EOSINOPHILS % (AUTO) 0.4 % (0.0-3.0); LYMPHOCYTES % (AUTO) 17.9 % (20.0-45.0); MEAN CORPUSCULAR VOLUME 98 FL (80-99); MONOCYTES % (AUTO) 5.5 % (1.0-10.0); NEUTROPHILS % (AUTO) 75.5 % (45.0-75.0); PLATELET COUNT 196 K/UL (150-450); RED BLOOD COUNT 3.59 M/UL (4.20-5.40); RED CELL DISTRIBUTION WIDTH 13.9 % (11.6-14.8); WHITE BLOOD COUNT 7.1 K/UL (4.8-10.8)
[2017-08-10 06:15] LABS: ALANINE AMINOTRANSFERASE 28 U/L (12-78); ALBUMIN 2.9 G/DL (3.4-5.0); ALBUMIN/GLOBULIN RATIO 0.7 (1.0-2.7); ALKALINE PHOSPHATASE 113 U/L (46-116); ANION GAP 21 mmol/L (5-15); ASPARTATE AMINO TRANSFERASE 18 U/L (15-37); BILIRUBIN,TOTAL 0.5 MG/DL (0.2-1.0); BLOOD UREA NITROGEN 26 mg/dL (7-18); CARBON DIOXIDE 19 MMOL/L (21-32); CHLORIDE 93 MMOL/L (98-107); CREATININE 1.7 MG/DL (0.55-1.30); PHOSPHORUS 4.4 MG/DL (2.5-4.9); POTASSIUM 4.4 MMOL/L (3.5-5.1); SODIUM 133 MMOL/L (136-145)
[2017-08-10] MEDS: NovoLOG Insulin Flexpen SUBQ SCH ×7 (06:22→20:31)
[2017-08-10 08:00] VITALS: BP 117/57
[2017-08-10] MEDS: Heparin 5000 units/ml inj SUBQ SCH ×2 (09:00→20:31)
[2017-08-10] MEDS ORDERED: NovoLOG Insulin Flexpen SUBQ ONE (09:45)
[2017-08-10] MEDS: Irbesartan 150mg tablet ORAL SCH (09:53)
[2017-08-10] MEDS: Metoprolol Tartrate 12.5mg TAB ORAL SCH ×2 (09:54→20:31)
[2017-08-10] MEDS: Lyrica 50mg cap ORAL SCH ×2 (09:55→17:11)
[2017-08-10] MEDS: Levemir Flexpen SUBQ SCH ×2 (10:01→17:16)
--- NOTE | 2017-08-10 10:06 | Pulmonology Progress Note ---
Assessment/Plan Problems: (1) Uncontrolled diabetes mellitus (2) Renal insufficiency (3) Encephalopathy (4) Major depression (5) HTN (hypertension) Assessment/Plan monitor BP still [place], SBP was 19=80 renal function better sliding scale, BS very labile slightly better iv fluids check electrolytes f/u renal and endo recommendations symptomatic treatment Subjective ROS Limited/Unobtainable: No Constitutional: Reports: no symptoms HEENT: Repors: no symptoms Respiratory: Reports: no symptoms Allergies: Coded Allergies: No Known Allergies (Unverified , 04/24/14) Objective Last 24 Hour Vital Signs Date Time Temp Pulse Resp B/P (MAP) Pulse Ox O2 Delivery O2 Flow Rate FiO2 08/10/17 09:55 96 117/57 08/10/17 09:54 96 117/57 08/10/17 09:53 117/57 08/10/17 08:00 97.7 96 20 117/57 97 97.7 08/10/17 07:50 92 20 Room Air 21 08/10/17 04:42 98.1 08/10/17 04:27 89 16 98 Room Air 21 08/10/17 04:12 98.1 08/10/17 04:03 85 16 94 Room Air 21 08/10/17 04:00 98.8 103 18 146/88 100 98.8 08/10/17 00:00 98.1 90 19 119/52 94 98.1 08/09/17 22:19 81 16 93 Room Air 21 08/09/17 22:19 84 16 95 Room Air 21 08/09/17 21:54 97.9 08/09/17 21:41 82 127/72 08/09/17 21:40 127/72 08/09/17 20:00 98.5 82 19 127/72 98 98.5 08/09/17 19:30 90 20 Room Air 21 08/09/17 16:00 97.9 91 20 146/84 98 97.9 08/09/17 15:31 180/99 08/09/17 15:30 87 180/99 08/09/17 12:00 98.2 87 20 180/99 96 98.2 08/09/17 12:00 180/99 08/09/17 11:59 97.8 Intake and Output 08/09/17 08/10/17 19:00 07:00 Intake Total 1040 ml 240 ml Balance 1040 ml 240 ml Intake Oral 1040 ml 240 ml # Voids 2 3 Objective General Appearance: cachetic Lines, tubes and drains: peripheral HEENT: normocephalic, atraumatic Neck: non-tender, supple Respiratory/Chest: chest wall non-tender, lungs clear Breasts: no masses Abdomen: normal bowel sounds, no organomegaly Genitourinary/Rectal: normal genital exam Microbiology Date/Time Source Procedure Growth Status 08/09/17 16:58 Nasal Nares Left Influenza Types A,B Antigen (STEPH) - Final Complete Laboratory Tests 08/09/17 16:55: Glucose Level 669#*H 08/10/17 05:45: Glucose Level 640*H, White Blood Count 7.1#, Red Blood Count 3.59L, Hemoglobin 11.0L, Hematocrit 35.0L, Mean Corpuscular Volume 98, Mean Corpuscular Hemoglobin 30.5, Mean Corpuscular Hemoglobin Concent 31.3L, Red Cell Distribution Width 13.9, Platelet Count 196, Mean Platelet Volume 8.6, Neutrophils (%) (Auto) 75.5H, Lymphocytes (%) (Auto) 17.9L, Monocytes (%) (Auto ) 5.5, Eosinophils (%) (Auto) 0.4, Basophils (%) (Auto) 0.7, Sodium Level 133L, Potassium Level 4.4, Chloride Level 93L, Carbon Dioxide Level 19L, Anion Gap 21H , Blood Urea Nitrogen 26H, Creatinine 1.7H, Estimat Glomerular Filtration Rate 39.4, Calcium Level 9.0, Phosphorus Level 4.4, Magnesium Level 1.6L, Total Bilirubin 0.5, Aspartate Amino Transf (AST/SGOT) 18, Alanine Aminotransferase ( ALT/SGPT) 28, Alkaline Phosphatase 113, Total Protein 6.9, Albumin 2.9L, Globulin 4.0, Albumin/Globulin Ratio 0.7L Current Medications Medications (Trade) Dose Ordered Sig/Lizbeth Route PRN Reason Start Time Stop Time Status Last Admin Dose Admin Acetaminophen (Tylenol) 650 mg Q4H PRN ORAL fever 08/06/17 15:00 09/05/17 14:59 Albuterol/ Ipratropium (Albuterol/ Ipratropium) 3 ml Q4H PRN HHN Shortness of Breath 08/06/17 15:00 08/11/17 14:59 08/10/17 04:03 Amlodipine Besylate (Norvasc) 10 mg DAILY ORAL 08/10/17 09:00 09/09/17 08:59 08/10/17 09:55 Clonidine HCl (Catapres TTS-3) 1 patch QWEEK TDERMAL 08/09/17 15:00 09/08/17 14:59 08/09/17 15:31 Clonidine HCl (Catapres Tab) 0.1 mg Q4H PRN ORAL SBP > 160 08/06/17 15:00 09/05/17 14:59 08/09/17 12:00 Dextrose (Dextrose 50%) STAT PRN IV Hypoglycemia 08/07/17 05:45 09/06/17 05:44 Heparin Sodium (Porcine) (Heparin 5000 units/ml) 5,000 units EVERY 12 HOURS SUBQ 08/06/17 21:00 09/05/17 20:59 Insulin Aspart (NovoLOG) BEFORE MEALS AND HS SUBQ 08/06/17 16:30 09/05/17 16:29 08/10/17 06:22 Insulin Aspart (NovoLOG) 5 units NOVOTIAC SUBQ 08/07/17 06:30 09/06/17 06:29 08/10/17 07:07 Insulin Detemir (Levemir) 15 units DAILY SUBQ 08/07/17 09:00 09/06/17 08:59 08/10/17 10:01 Irbesartan (Avapro) 150 mg Q12HR ORAL 08/09/17 21:00 09/08/17 20:59 08/10/17 09:53 Lansoprazole (Prevacid) 30 mg BID ORAL 08/08/17 18:00 09/07/17 17:59 08/10/17 09:53 Metoprolol Tartrate (Lopressor) 12.5 mg Q12HR ORAL 08/09/17 21:00 09/08/17 20:59 08/10/17 09:54 Mirtazapine (Remeron) 7.5 mg BEDTIME ORAL 08/08/17 21:00 09/07/17 20:59 08/09/17 21:42 Morphine Sulfate (Morphine Sulfate) 2 mg Q4H PRN IVP severe pain 7-10 08/06/17 15:00 08/13/17 14:59 08/10/17 04:12 Nitroglycerin (Ntg) 0.4 mg Q5M X 3 DOSES PRN SL Prn Chest Pain 08/06/17 15:00 09/05/17 14:59 Ondansetron HCl (Zofran) 4 mg Q6H PRN IVP Nausea & Vomiting 08/06/17 15:00 09/05/17 14:59 08/06/17 15:44 Oseltamivir Phosphate (Tamiflu) 30 mg BID ORAL 08/09/17 18:00 08/14/17 09:01 08/09/17 18:09 Polyethylene Glycol (Miralax) 17 gm HSPRN PRN ORAL Constipation 08/06/17 15:00 09/05/17 14:59 Pregabalin (Lyrica) 50 mg BID ORAL 08/08/17 18:00 09/07/17 17:59 08/10/17 09:55 Temazepam (Restoril) 15 mg HSPRN PRN ORAL Insomnia 08/06/17 15:00 08/13/17 14:59 VANESSA SAGASTUME Aug 10, 2017 10:06
[2017-08-10] MEDS ORDERED: Tubing IV Secondary IV ONE (11:03)
--- NOTE | 2017-08-10 11:54 | Nephrology Progress Note ---
Assessment/Plan Problem List: (1) ARF (acute renal failure) (2) Vomiting (3) Anemia (4) Hypotension Assessment Renal failure ? acute- ? underlying diabetic kidney disease Cr addie today 1.7 BS high - Nausea with vomiting. - Hyperglycemia. - Diabetes type 1. - Hyponatremia. - Hypertension. presents with hypotension - Diabetic nephropathy. - Gastroesophageal reflux disease. - Anemia Plan Plan: DC Volsartan One liter saline TTS 3 and Lopressor monitor renal parameters Keep BP over 100 syst Keep BS in check avoid nephrotoxics Objective Objective Last 24 Hour Vital Signs Date Time Temp Pulse Resp B/P (MAP) Pulse Ox O2 Delivery O2 Flow Rate FiO2 08/10/17 09:55 96 117/57 08/10/17 09:54 96 117/57 08/10/17 09:53 117/57 08/10/17 08:00 97.7 96 20 117/57 97 97.7 08/10/17 07:50 92 20 Room Air 21 08/10/17 04:42 98.1 08/10/17 04:27 89 16 98 Room Air 21 08/10/17 04:12 98.1 08/10/17 04:03 85 16 94 Room Air 21 08/10/17 04:00 98.8 103 18 146/88 100 98.8 08/10/17 00:00 98.1 90 19 119/52 94 98.1 08/09/17 22:19 81 16 93 Room Air 21 08/09/17 22:19 84 16 95 Room Air 21 08/09/17 21:54 97.9 08/09/17 21:41 82 127/72 08/09/17 21:40 127/72 08/09/17 20:00 98.5 82 19 127/72 98 98.5 08/09/17 19:30 90 20 Room Air 21 08/09/17 16:00 97.9 91 20 146/84 98 97.9 08/09/17 15:31 180/99 08/09/17 15:30 87 180/99 08/09/17 12:00 98.2 87 20 180/99 96 98.2 08/09/17 12:00 180/99 08/09/17 11:59 97.8 Intake and Output 08/09/17 08/10/17 19:00 07:00 Intake Total 1040 ml 240 ml Balance 1040 ml 240 ml Intake Oral 1040 ml 240 ml # Voids 2 3 Laboratory Tests 08/09/17 16:55: Glucose Level 669#*H 08/10/17 05:45: Glucose Level 640*H, White Blood Count 7.1#, Red Blood Count 3.59L, Hemoglobin 11.0L, Hematocrit 35.0L, Mean Corpuscular Volume 98, Mean Corpuscular Hemoglobin 30.5, Mean Corpuscular Hemoglobin Concent 31.3L, Red Cell Distribution Width 13.9, Platelet Count 196, Mean Platelet Volume 8.6, Neutrophils (%) (Auto) 75.5H, Lymphocytes (%) (Auto) 17.9L, Monocytes (%) (Auto ) 5.5, Eosinophils (%) (Auto) 0.4, Basophils (%) (Auto) 0.7, Sodium Level 133L, Potassium Level 4.4, Chloride Level 93L, Carbon Dioxide Level 19L, Anion Gap 21H , Blood Urea Nitrogen 26H, Creatinine 1.7H, Estimat Glomerular Filtration Rate 39.4, Calcium Level 9.0, Phosphorus Level 4.4, Magnesium Level 1.6L, Total Bilirubin 0.5, Aspartate Amino Transf (AST/SGOT) 18, Alanine Aminotransferase ( ALT/SGPT) 28, Alkaline Phosphatase 113, Total Protein 6.9, Albumin 2.9L, Globulin 4.0, Albumin/Globulin Ratio 0.7L Height (Feet): 5 Height (Inches): 1.00 Weight (Pounds): 110 KYMBERLY SEAMAN Aug 10, 2017 11:54
[2017-08-10 12:00] VITALS: BP 117/60
--- NOTE | 2017-08-10 14:00 | Internal Med Progress Note ---
Subjective Date of Service: Aug 10, 2017 Physician Name Christos Jacobsen Attending Physician Aries Hardin MD Current Medications Medications (Trade) Dose Ordered Sig/Lizbeth Route PRN Reason Start Time Stop Time Status Last Admin Dose Admin Acetaminophen (Tylenol) 650 mg Q4H PRN ORAL fever 08/06/17 15:00 09/05/17 14:59 Albuterol/ Ipratropium (Albuterol/ Ipratropium) 3 ml Q4H PRN HHN Shortness of Breath 08/06/17 15:00 08/11/17 14:59 08/10/17 04:03 Amlodipine Besylate (Norvasc) 10 mg DAILY ORAL 08/10/17 09:00 09/09/17 08:59 08/10/17 09:55 Clonidine HCl (Catapres TTS-3) 1 patch QWEEK TDERMAL 08/09/17 15:00 09/08/17 14:59 08/09/17 15:31 Clonidine HCl (Catapres Tab) 0.1 mg Q4H PRN ORAL SBP > 160 08/06/17 15:00 09/05/17 14:59 08/09/17 12:00 Dextrose (Dextrose 50%) STAT PRN IV Hypoglycemia 08/07/17 05:45 09/06/17 05:44 Heparin Sodium (Porcine) (Heparin 5000 units/ml) 5,000 units EVERY 12 HOURS SUBQ 08/06/17 21:00 09/05/17 20:59 Insulin Aspart (NovoLOG) BEFORE MEALS AND HS SUBQ 08/06/17 16:30 09/05/17 16:29 08/10/17 12:31 Insulin Aspart (NovoLOG) 5 units NOVOTIAC SUBQ 08/07/17 06:30 09/06/17 06:29 08/10/17 12:32 Insulin Detemir (Levemir) 15 units DAILY SUBQ 08/07/17 09:00 09/06/17 08:59 08/10/17 10:01 Lansoprazole (Prevacid) 30 mg BID ORAL 08/08/17 18:00 09/07/17 17:59 08/10/17 09:53 Metoprolol Tartrate (Lopressor) 12.5 mg Q12HR ORAL 08/09/17 21:00 09/08/17 20:59 08/10/17 09:54 Mirtazapine (Remeron) 7.5 mg BEDTIME ORAL 08/08/17 21:00 09/07/17 20:59 08/09/17 21:42 Morphine Sulfate (Morphine Sulfate) 2 mg Q4H PRN IVP severe pain 7-10 08/06/17 15:00 08/13/17 14:59 08/10/17 04:12 Nitroglycerin (Ntg) 0.4 mg Q5M X 3 DOSES PRN SL Prn Chest Pain 08/06/17 15:00 09/05/17 14:59 Ondansetron HCl (Zofran) 4 mg Q6H PRN IVP Nausea & Vomiting 08/06/17 15:00 09/05/17 14:59 08/06/17 15:44 Oseltamivir Phosphate (Tamiflu) 30 mg BID ORAL 08/09/17 18:00 08/14/17 09:01 08/10/17 10:14 Polyethylene Glycol (Miralax) 17 gm HSPRN PRN ORAL Constipation 08/06/17 15:00 09/05/17 14:59 Pregabalin (Lyrica) 50 mg BID ORAL 08/08/17 18:00 09/07/17 17:59 08/10/17 09:55 Sodium Chloride 1,000 ml @ 75 mls/hr [id number] IV 08/10/17 12:00 09/09/17 11:59 08/10/17 12:33 Temazepam (Restoril) 15 mg HSPRN PRN ORAL Insomnia 08/06/17 15:00 08/13/17 14:59 Allergies: Coded Allergies: No Known Allergies (Unverified , 04/24/14) ROS Limited/Unobtainable: No Constitutional: Reports: no symptoms HEENT: Reports: no symptoms Cardiovascular: Reports: no symptoms Respiratory: Reports: no symptoms Gastrointestinal/Abdominal: Reports: no symptoms Genitourinary: Reports: no symptoms Neurologic/Psychiatric: Reports: no symptoms Subjective 46 YO F admitted with nausea, vomiting and hyperglycemia due to malfunction of insulin pump. Accucheck=-590. Cover for Int Med-Dr Hardin. Objective Last Vital Signs Date Time Temp Pulse Resp B/P (MAP) Pulse Ox O2 Delivery O2 Flow Rate FiO2 08/10/17 12:00 98.7 94 20 117/60 96 98.7 08/10/17 07:50 Room Air 21 Laboratory Tests Test 08/09/17 16:55 08/10/17 05:45 08/10/17 12:40 Glucose Level 669 MG/DL (74-106) #*H 640 MG/DL (74-106) *H 590 MG/DL (74-106) *H White Blood Count 7.1 K/UL (4.8-10.8) # Red Blood Count 3.59 M/UL (4.20-5.40) L Hemoglobin 11.0 G/DL (12.0-16.0) L Hematocrit 35.0 % (37.0-47.0) L Mean Corpuscular Volume 98 FL (80-99) Mean Corpuscular Hemoglobin 30.5 PG (27.0-31.0) Mean Corpuscular Hemoglobin Concent 31.3 G/DL (32.0-36.0) L Red Cell Distribution Width 13.9 % (11.6-14.8) Platelet Count 196 K/UL (150-450) Mean Platelet Volume 8.6 FL (6.5-10.1) Neutrophils (%) (Auto) 75.5 % (45.0-75.0) H Lymphocytes (%) (Auto) 17.9 % (20.0-45.0) L Monocytes (%) (Auto) 5.5 % (1.0-10.0) Eosinophils (%) (Auto) 0.4 % (0.0-3.0) Basophils (%) (Auto) 0.7 % (0.0-2.0) Sodium Level 133 MMOL/L (136-145) L Potassium Level 4.4 MMOL/L (3.5-5.1) Chloride Level 93 MMOL/L (98-107) L Carbon Dioxide Level 19 MMOL/L (21-32) L Anion Gap 21 mmol/L (5-15) H Blood Urea Nitrogen 26 mg/dL (7-18) H Creatinine 1.7 MG/DL (0.55-1.30) H Estimat Glomerular Filtration Rate 39.4 mL/min (>60) Calcium Level 9.0 MG/DL (8.5-10.1) Phosphorus Level 4.4 MG/DL (2.5-4.9) Magnesium Level 1.6 MG/DL (1.8-2.4) L Total Bilirubin 0.5 MG/DL (0.2-1.0) Aspartate Amino Transf (AST/SGOT) 18 U/L (15-37) Alanine Aminotransferase (ALT/SGPT) 28 U/L (12-78) Alkaline Phosphatase 113 U/L (46-116) Total Protein 6.9 G/DL (6.4-8.2) Albumin 2.9 G/DL (3.4-5.0) L Globulin 4.0 g/dL Albumin/Globulin Ratio 0.7 (1.0-2.7) L Microbiology Date/Time Source Procedure Growth Status 08/09/17 16:58 Nasal Nares Left Influenza Types A,B Antigen (STEPH) - Final Complete Intake and Output 08/09/17 08/10/17 19:00 07:00 Intake Total 1040 ml 240 ml Balance 1040 ml 240 ml Intake Oral 1040 ml 240 ml # Voids 2 3 Objective General Appearance: WD/WN, alert, mild distress EENT: PERRL/EOMI, normal ENT inspection Neck: non-tender, normal alignment, supple, normal inspection Cardiovascular: normal peripheral pulses, normal rate, regular rhythm, no gallop/murmur, no JVD Respiratory/Chest: chest wall non-tender, lungs clear, normal breath sounds, no respiratory distress, no accessory muscle use Abdomen: normal bowel sounds, non tender, soft, no organomegaly, no mass Extremities: normal range of motion, non-tender 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 Cont norm saline IV fluids. (2) Intractable nausea and vomiting Assessment & Plan: Resolved. continue zofran (3) Hyperglycemia Assessment & Plan: Due to malfunction of insulin pump. D/C insulin pump per endocrinology. Start levemir and novolog sliding scale. (4) ARF (acute renal failure) (5) Diabetic ketoacidosis, type I Assessment & Plan: Uncontrolled. [id number] endocrinology note. (6) Diabetes mellitus type 1, uncontrolled, insulin dependent Assessment & Plan: See endocrinology note. (7) HTN (hypertension) Assessment & Plan: stable (8) Diabetic nephropathy (9) Renal failure Assessment & Plan: Due to dehydration due to DKA. see nephrology note. Status: not improved CHRISTOS JACOBSEN Aug 10, 2017 13:59
--- NOTE | 2017-08-10 14:10 | General Progress Note ---
Assessment/Plan Problem List: (1) Diabetes mellitus type 1, uncontrolled, insulin dependent ICD Codes: E10.65 - Type 1 diabetes mellitus with hyperglycemia SNOMED: 59911358, 548147977 (2) GERD (gastroesophageal reflux disease) ICD Codes: K21.9 - Gastro-esophageal reflux disease without esophagitis SNOMED: 933515110 (3) Anemia ICD Codes: D64.9 - Anemia, unspecified SNOMED: [id number] Assessment/Plan change Levemir to 12 units bid change Novolog to 8 units ac tid + NISS continue IVF resume insulin pump therapy + sensor as OP Subjective Allergies: Coded Allergies: No Known Allergies (Unverified , 04/24/14) All Systems: reviewed and negative except above Subjective events noted Objective Last 24 Hour Vital Signs Date Time Temp Pulse Resp B/P (MAP) Pulse Ox O2 Delivery O2 Flow Rate FiO2 08/10/17 12:00 98.7 94 20 117/60 96 98.7 08/10/17 09:55 96 117/57 08/10/17 09:54 96 117/57 08/10/17 09:53 117/57 08/10/17 08:00 97.7 96 20 117/57 97 97.7 08/10/17 07:50 92 20 Room Air 21 08/10/17 04:42 98.1 08/10/17 04:27 89 16 98 Room Air 21 08/10/17 04:12 98.1 08/10/17 04:03 85 16 94 Room Air 21 08/10/17 04:00 98.8 103 18 146/88 100 98.8 08/10/17 00:00 98.1 90 19 119/52 94 98.1 08/09/17 22:19 81 16 93 Room Air 21 08/09/17 22:19 84 16 95 Room Air 21 08/09/17 21:54 97.9 08/09/17 21:41 82 127/72 08/09/17 21:40 127/72 08/09/17 20:00 98.5 82 19 127/72 98 98.5 08/09/17 19:30 90 20 Room Air 21 08/09/17 16:00 97.9 91 20 146/84 98 97.9 08/09/17 15:31 180/99 08/09/17 15:30 87 180/99 Intake and Output 08/09/17 08/10/17 19:00 07:00 Intake Total 1040 ml 240 ml Balance 1040 ml 240 ml Intake Oral 1040 ml 240 ml # Voids 2 3 Laboratory Tests 08/09/17 16:55: Glucose Level 669#*H 08/10/17 05:45: Glucose Level 640*H, White Blood Count 7.1#, Red Blood Count 3.59L, Hemoglobin 11.0L, Hematocrit 35.0L, Mean Corpuscular Volume 98, Mean Corpuscular Hemoglobin 30.5, Mean Corpuscular Hemoglobin Concent 31.3L, Red Cell Distribution Width 13.9, Platelet Count 196, Mean Platelet Volume 8.6, Neutrophils (%) (Auto) 75.5H, Lymphocytes (%) (Auto) 17.9L, Monocytes (%) (Auto ) 5.5, Eosinophils (%) (Auto) 0.4, Basophils (%) (Auto) 0.7, Sodium Level 133L, Potassium Level 4.4, Chloride Level 93L, Carbon Dioxide Level 19L, Anion Gap 21H , Blood Urea Nitrogen 26H, Creatinine 1.7H, Estimat Glomerular Filtration Rate 39.4, Calcium Level 9.0, Phosphorus Level 4.4, Magnesium Level 1.6L, Total Bilirubin 0.5, Aspartate Amino Transf (AST/SGOT) 18, Alanine Aminotransferase ( ALT/SGPT) 28, Alkaline Phosphatase 113, Total Protein 6.9, Albumin 2.9L, Globulin 4.0, Albumin/Globulin Ratio 0.7L 08/10/17 12:40: Glucose Level 590*H Height (Feet): 5 Height (Inches): 1.00 Weight (Pounds): 110 General Appearance: no apparent distress Neck: normal alignment Cardiovascular: normal rate Respiratory/Chest: lungs clear Abdomen: non tender Pelvis: normal external exam Edema: no edema noted Arm (L), no edema noted Arm (R), no edema noted Leg (L), no edema noted Leg (R), no edema noted Pedal (L), no edema noted Pedal (R), no edema noted Generalized Objective Current Medications Medications (Trade) Dose Ordered Sig/Lizbeth Route PRN Reason Start Time Stop Time Status Last Admin Dose Admin Acetaminophen (Tylenol) 650 mg Q4H PRN ORAL fever 08/06/17 15:00 09/05/17 14:59 Albuterol/ Ipratropium (Albuterol/ Ipratropium) 3 ml Q4H PRN HHN Shortness of Breath 08/06/17 15:00 08/11/17 14:59 08/10/17 04:03 Amlodipine Besylate (Norvasc) 10 mg DAILY ORAL 08/10/17 09:00 09/09/17 08:59 08/10/17 09:55 Clonidine HCl (Catapres TTS-3) 1 patch QWEEK TDERMAL 08/09/17 15:00 09/08/17 14:59 08/09/17 15:31 Clonidine HCl (Catapres Tab) 0.1 mg Q4H PRN ORAL SBP > 160 08/06/17 15:00 09/05/17 14:59 08/09/17 12:00 Dextrose (Dextrose 50%) STAT PRN IV Hypoglycemia 08/07/17 05:45 09/06/17 05:44 Heparin Sodium (Porcine) (Heparin 5000 units/ml) 5,000 units EVERY 12 HOURS SUBQ 08/06/17 21:00 09/05/17 20:59 Insulin Aspart (NovoLOG) BEFORE MEALS AND HS SUBQ 08/06/17 16:30 09/05/17 16:29 08/10/17 12:31 Insulin Aspart (NovoLOG) 5 units NOVOTIAC SUBQ 08/07/17 06:30 09/06/17 06:29 08/10/17 12:32 Insulin Detemir (Levemir) 15 units DAILY SUBQ 08/07/17 09:00 09/06/17 08:59 08/10/17 10:01 Lansoprazole (Prevacid) 30 mg BID ORAL 08/08/17 18:00 09/07/17 17:59 08/10/17 09:53 Metoprolol Tartrate (Lopressor) 12.5 mg Q12HR ORAL 08/09/17 21:00 09/08/17 20:59 08/10/17 09:54 Mirtazapine (Remeron) 7.5 mg BEDTIME ORAL 08/08/17 21:00 09/07/17 20:59 08/09/17 21:42 Morphine Sulfate (Morphine Sulfate) 2 mg Q4H PRN IVP severe pain 7-10 08/06/17 15:00 08/13/17 14:59 08/10/17 04:12 Nitroglycerin (Ntg) 0.4 mg Q5M X 3 DOSES PRN SL Prn Chest Pain 08/06/17 15:00 09/05/17 14:59 Ondansetron HCl (Zofran) 4 mg Q6H PRN IVP Nausea & Vomiting 08/06/17 15:00 09/05/17 14:59 08/06/17 15:44 Oseltamivir Phosphate (Tamiflu) 30 mg BID ORAL 08/09/17 18:00 08/14/17 09:01 08/10/17 10:14 Polyethylene Glycol (Miralax) 17 gm HSPRN PRN ORAL Constipation 08/06/17 15:00 09/05/17 14:59 Pregabalin (Lyrica) 50 mg BID ORAL 08/08/17 18:00 09/07/17 17:59 08/10/17 09:55 Sodium Chloride 1,000 ml @ 75 mls/hr [id number] IV 08/10/17 12:00 09/09/17 11:59 08/10/17 12:33 Temazepam (Restoril) 15 mg HSPRN PRN ORAL Insomnia 08/06/17 15:00 08/13/17 14:59 Item Value Date Time Bedside Blood Glucose 400 mg/dl H 08/10/17 1232 Bedside Blood Glucose 649 mg/dl H 08/10/17 1002 Bedside Blood Glucose Critically High Result 08/10/17 0630 Bedside Blood Glucose 226 mg/dl H 08/09/17 2325 Bedside Blood Glucose 226 mg/dl H 08/09/17 2150 Bedside Blood Glucose 669 mg/dl H 08/09/17 1749 Bedside Blood Glucose 223 mg/dl H 08/09/17 1203 Bedside Blood Glucose 400 mg/dl H 08/09/17 1000 IVY SULLIVAN Aug 10, 2017 14:10
[2017-08-10] MEDS ORDERED: Norco 5mg/325mg tab ORAL PRN (14:30)
[2017-08-10] MEDS ORDERED: HYDROcodone/Acetamin 10/325 tab ORAL PRN (14:30)
[2017-08-10] MEDS ORDERED: Morphine Sulfate 4mg/ml Inj IVP PRN (14:30)
[2017-08-10] MEDS: guaiFENesin w/Codeine 5ml Liq ud ORAL PRN (15:31)
[2017-08-10 16:00] VITALS: BP 129/59
[2017-08-10 20:00] VITALS: BP 102/50
[2017-08-11] VITALS: BP 111/55
[2017-08-11] MEDS: guaiFENesin w/Codeine 5ml Liq ud ORAL PRN ×3 (00:05→20:54)
[2017-08-11 04:00] VITALS: BP 148/77
[2017-08-11] MEDS: NovoLOG Insulin Flexpen SUBQ SCH ×7 (05:52→20:37)
--- NOTE | 2017-08-11 07:10 | General Progress Note ---
Assessment/Plan Problem List: (1) Diabetes mellitus type 1, uncontrolled, insulin dependent ICD Codes: E10.65 - Type 1 diabetes mellitus with hyperglycemia SNOMED: 52271256, 234583011 (2) GERD (gastroesophageal reflux disease) ICD Codes: K21.9 - Gastro-esophageal reflux disease without esophagitis SNOMED: 894345372 (3) Anemia ICD Codes: D64.9 - Anemia, unspecified SNOMED: 081246786 Assessment/Plan continue Levemir 12 units bid continue Novolog to 8 units ac tid + NISS continue IVF resume insulin pump therapy + sensor as OP Subjective Allergies: Coded Allergies: No Known Allergies (Unverified , 04/24/14) All Systems: reviewed and negative except above Subjective events noted fasting glucose improved Objective Last 24 Hour Vital Signs Date Time Temp Pulse Resp B/P (MAP) Pulse Ox O2 Delivery O2 Flow Rate FiO2 08/11/17 04:00 98.2 87 18 148/77 94 Room Air 98.2 08/11/17 00:00 98.0 78 21 111/55 91 98.0 08/10/17 20:31 74 102/50 08/10/17 20:00 98.0 74 21 102/50 94 98.0 08/10/17 17:10 99.0 08/10/17 16:00 99.0 87 20 129/59 97 99.0 08/10/17 15:32 98.7 08/10/17 12:00 98.7 94 20 117/60 96 98.7 08/10/17 09:55 96 117/57 08/10/17 09:54 96 117/57 08/10/17 09:53 117/57 08/10/17 08:00 97.7 96 20 117/57 97 97.7 08/10/17 07:50 92 20 Room Air 21 Intake and Output 08/10/17 08/11/17 19:00 07:00 Intake Total 480 ml 240 ml Balance 480 ml 240 ml Intake Oral 480 ml 240 ml # Voids 3 1 Laboratory Tests 08/10/17 12:40: Glucose Level 590*H 08/11/17 06:25: Glucose Level [Pending], White Blood Count [Pending], Red Blood Count [Pending] , Hemoglobin [Pending], Hematocrit [Pending], Mean Corpuscular Volume [Pending] , Mean Corpuscular Hemoglobin [Pending], Mean Corpuscular Hemoglobin Concent [ Pending], Red Cell Distribution Width [Pending], Platelet Count [Pending], Mean Platelet Volume [Pending], Neutrophils (%) (Auto) [Pending], Lymphocytes (%) ( Auto) [Pending], Monocytes (%) (Auto) [Pending], Eosinophils (%) (Auto) [Pending ], Basophils (%) (Auto) [Pending], Sodium Level [Pending], Potassium Level [ Pending], Chloride Level [Pending], Carbon Dioxide Level [Pending], Blood Urea Nitrogen [Pending], Creatinine [Pending], Estimat Glomerular Filtration Rate [ Pending], Calcium Level [Pending], Phosphorus Level [Pending], Magnesium Level [ Pending], Total Bilirubin [Pending], Aspartate Amino Transf (AST/SGOT) [Pending] , Alanine Aminotransferase (ALT/SGPT) [Pending], Alkaline Phosphatase [Pending] , Total Protein [Pending], Albumin [Pending], Globulin [Pending] Height (Feet): 5 Height (Inches): 1.00 Weight (Pounds): 110 General Appearance: no apparent distress Neck: normal alignment Cardiovascular: normal rate Respiratory/Chest: lungs clear Abdomen: normal bowel sounds Objective Current Medications Medications (Trade) Dose Ordered Sig/Lizbeth Route PRN Reason Start Time Stop Time Status Last Admin Dose Admin Acetaminophen (Tylenol) 650 mg Q4H PRN ORAL fever 08/06/17 15:00 09/05/17 14:59 Acetaminophen/ Hydrocodone Bitart ([place] 10/325) 1 tab Q4H PRN ORAL Severe Pain (Pain Scale 7-10) 08/10/17 14:30 08/17/17 14:29 Acetaminophen/ Hydrocodone Bitart ([place] 5/325) 1 tab Q4H PRN ORAL Moderate Pain (Pain Scale 4-6) 08/10/17 14:30 08/17/17 14:29 08/10/17 15:32 Albuterol/ Ipratropium (Albuterol/ Ipratropium) 3 ml Q4H PRN HHN Shortness of Breath 08/06/17 15:00 08/11/17 14:59 08/10/17 04:03 Amlodipine Besylate (Norvasc) 10 mg DAILY ORAL 08/10/17 09:00 09/09/17 08:59 08/10/17 09:55 Cetylpyridinium Chloride (Cepacol) 1 lozg Q2H PRN DC SORE THROAT 08/10/17 14:30 09/09/17 14:29 Clonidine HCl (Catapres TTS-3) 1 patch QWEEK TDERMAL 08/09/17 15:00 09/08/17 14:59 08/09/17 15:31 Clonidine HCl (Catapres Tab) 0.1 mg Q4H PRN ORAL SBP > 160 08/06/17 15:00 09/05/17 14:59 08/09/17 12:00 Dextrose (Dextrose 50%) STAT PRN IV Hypoglycemia 08/07/17 05:45 09/06/17 05:44 Guaifenesin/ Codeine Phosphate (Robitussin with codeine) 5 ml Q6H PRN ORAL For Cough 08/10/17 14:30 09/09/17 14:29 08/11/17 06:13 Heparin Sodium (Porcine) (Heparin 5000 units/ml) 5,000 units EVERY 12 HOURS SUBQ 08/06/17 21:00 09/05/17 20:59 Insulin Aspart (NovoLOG) BEFORE MEALS AND HS SUBQ 08/06/17 16:30 09/05/17 16:29 08/11/17 05:52 Insulin Aspart (NovoLOG) 8 units NOVOTIAC SUBQ 08/10/17 16:50 09/09/17 16:49 08/11/17 05:53 Insulin Detemir (Levemir) 12 units BID SUBQ 08/10/17 18:00 09/06/17 08:59 08/10/17 17:16 Lansoprazole (Prevacid) 30 mg BID ORAL 08/08/17 18:00 09/07/17 17:59 08/10/17 17:11 Metoprolol Tartrate (Lopressor) 12.5 mg Q12HR ORAL 08/09/17 21:00 09/08/17 20:59 08/10/17 09:54 Mirtazapine (Remeron) 7.5 mg BEDTIME ORAL 08/08/17 21:00 09/07/17 20:59 08/10/17 20:32 Morphine Sulfate (Morphine Sulfate) 2 mg Q4H PRN IVP severe pain 7-10 08/10/17 14:30 08/17/17 14:29 Nitroglycerin (Ntg) 0.4 mg Q5M X 3 DOSES PRN SL Prn Chest Pain 08/06/17 15:00 09/05/17 14:59 Ondansetron HCl (Zofran) 4 mg Q6H PRN IVP Nausea & Vomiting 08/06/17 15:00 09/05/17 14:59 08/06/17 15:44 Polyethylene Glycol (Miralax) 17 gm HSPRN PRN ORAL Constipation 08/06/17 15:00 09/05/17 14:59 Pregabalin (Lyrica) 50 mg BID ORAL 08/08/17 18:00 09/07/17 17:59 08/10/17 17:11 Temazepam (Restoril) 15 mg HSPRN PRN ORAL Insomnia 08/06/17 15:00 08/13/17 14:59 Item Value Date Time Bedside Blood Glucose 192 mg/dl H 08/11/17 0615 Bedside Blood Glucose 71 mg/dl 08/10/17 2100 Bedside Blood Glucose 188 mg/dl H 08/10/17 1716 Bedside Blood Glucose 400 mg/dl H 08/10/17 1232 Bedside Blood Glucose 649 mg/dl H 08/10/17 1002 Bedside Blood Glucose Critically High Result 08/10/17 0630 IVY SULLIVAN Aug 11, 2017 07:10
[2017-08-11 07:38] LABS: BASOPHILS % (AUTO) 0.8 % (0.0-2.0); EOSINOPHILS % (AUTO) 0.6 % (0.0-3.0); HEMATOCRIT 31.1 % (37.0-47.0); HEMOGLOBIN 10.1 G/DL (12.0-16.0); LYMPHOCYTES % (AUTO) 19.5 % (20.0-45.0); MEAN CORPUSCULAR VOLUME 93 FL (80-99); MONOCYTES % (AUTO) 7.1 % (1.0-10.0); PLATELET COUNT 198 K/UL (150-450); RED BLOOD COUNT 3.34 M/UL (4.20-5.40); RED CELL DISTRIBUTION WIDTH 13.6 % (11.6-14.8); WHITE BLOOD COUNT 6.1 K/UL (4.8-10.8)
[2017-08-11 07:48] LABS: ALANINE AMINOTRANSFERASE 22 U/L (12-78); ALBUMIN 2.4 G/DL (3.4-5.0); ALBUMIN/GLOBULIN RATIO 0.7 (1.0-2.7); ALKALINE PHOSPHATASE 77 U/L (46-116); ANION GAP 6 mmol/L (5-15); ASPARTATE AMINO TRANSFERASE 13 U/L (15-37); BILIRUBIN,TOTAL 0.2 MG/DL (0.2-1.0); BLOOD UREA NITROGEN 26 mg/dL (7-18); CALCIUM 8.7 MG/DL (8.5-10.1); CARBON DIOXIDE 30 MMOL/L (21-32); CHLORIDE 102 MMOL/L (98-107); CREATININE 1.4 MG/DL (0.55-1.30); PHOSPHORUS 3.4 MG/DL (2.5-4.9); POTASSIUM 3.4 MMOL/L (3.5-5.1); SODIUM 138 MMOL/L (136-145)
[2017-08-11 08:00] VITALS: BP 103/65
[2017-08-11] MEDS: Heparin 5000 units/ml inj SUBQ SCH ×2 (08:55→20:40)
[2017-08-11] MEDS: Levemir Flexpen SUBQ SCH ×2 (08:56→18:21)
[2017-08-11] MEDS: Lyrica 50mg cap ORAL SCH ×2 (08:57→18:20)
[2017-08-11] MEDS: Metoprolol Tartrate 12.5mg TAB ORAL SCH ×2 (08:58→20:37)
--- NOTE | 2017-08-11 11:27 | Nephrology Progress Note ---
Assessment/Plan Problem List: (1) ARF (acute renal failure) (2) Vomiting (3) Anemia (4) Hypotension Assessment Renal failure ? acute- ? underlying diabetic kidney disease Cr addie today 1.4 BS improved - Nausea with vomiting. - Hyperglycemia. - Diabetes type 1. - Hyponatremia. - Hypertension. presents with hypotension - Diabetic nephropathy. - Gastroesophageal reflux disease. - Anemia Plan Plan: DC Volsartan Down on Norvasc TTS 3 and Lopressor continue monitor renal parameters Keep BP over 100 syst Keep BS in check avoid nephrotoxics Subjective ROS Limited/Unobtainable: No Constitutional: Reports: other - stronger Objective Objective Last 24 Hour Vital Signs Date Time Temp Pulse Resp B/P (MAP) Pulse Ox O2 Delivery O2 Flow Rate FiO2 08/11/17 08:59 84 103/65 08/11/17 08:58 84 103/65 08/11/17 08:26 94 18 Room Air 21 08/11/17 08:00 98.4 84 20 103/65 93 98.4 08/11/17 04:00 98.2 87 18 148/77 94 Room Air 98.2 08/11/17 00:00 98.0 78 21 111/55 91 98.0 08/10/17 20:31 74 102/50 08/10/17 20:00 98.0 74 21 102/50 94 98.0 08/10/17 17:10 99.0 08/10/17 16:00 99.0 87 20 129/59 97 99.0 08/10/17 15:32 98.7 08/10/17 12:00 98.7 94 20 117/60 96 98.7 Intake and Output 08/10/17 08/11/17 19:00 07:00 Intake Total 480 ml 240 ml Balance 480 ml 240 ml Intake Oral 480 ml 240 ml # Voids 3 1 Laboratory Tests 08/10/17 12:40: Glucose Level 590*H 08/11/17 06:25: Glucose Level 194#H, White Blood Count 6.1, Red Blood Count 3.34L, Hemoglobin 10.1L, Hematocrit 31.1L, Mean Corpuscular Volume 93, Mean Corpuscular Hemoglobin 30.1, Mean Corpuscular Hemoglobin Concent 32.4, Red Cell Distribution Width 13.6, Platelet Count 198, Mean Platelet Volume 7.5, Neutrophils (%) (Auto) 72.0, Lymphocytes (%) (Auto) 19.5L, Monocytes (%) (Auto) 7.1, Eosinophils (%) (Auto) 0.6, Basophils (%) (Auto) 0.8, Sodium Level 138, Potassium Level 3.4L, Chloride Level 102, Carbon Dioxide Level 30, Anion Gap 6, Blood Urea Nitrogen 26H, Creatinine 1.4H, Estimat Glomerular Filtration Rate 49.3, Calcium Level 8.7, Phosphorus Level 3.4, Magnesium Level 1.6L, Total Bilirubin 0.2, Aspartate Amino Transf (AST/SGOT) 13L, Alanine Aminotransferase ( ALT/SGPT) 22, Alkaline Phosphatase 77, Total Protein 5.9L, Albumin 2.4L, Globulin 3.5, Albumin/Globulin Ratio 0.7L Height (Feet): 5 Height (Inches): 1.00 Weight (Pounds): 110 General Appearance: no apparent distress Cardiovascular: regular rhythm Respiratory/Chest: decreased breath sounds Abdomen: soft KYMBERLY SEAMAN Aug 11, 2017 11:26
[2017-08-11 12:00] VITALS: BP 139/69
--- NOTE | 2017-08-11 14:57 | Internal Med Progress Note ---
Subjective Date of Service: Aug 11, 2017 Physician Name JacobsenChristos Attending Physician Aries Hardin MD Current Medications Medications (Trade) Dose Ordered Sig/Lizbeth Route PRN Reason Start Time Stop Time Status Last Admin Dose Admin Acetaminophen (Tylenol) 650 mg Q4H PRN ORAL fever 08/06/17 15:00 09/05/17 14:59 Acetaminophen/ Hydrocodone Bitart ([place] 10/325) 1 tab Q4H PRN ORAL Severe Pain (Pain Scale 7-10) 08/10/17 14:30 08/17/17 14:29 Acetaminophen/ Hydrocodone Bitart ([place] 5/325) 1 tab Q4H PRN ORAL Moderate Pain (Pain Scale 4-6) 08/10/17 14:30 08/17/17 14:29 08/10/17 15:32 Albuterol/ Ipratropium (Albuterol/ Ipratropium) 3 ml Q4H PRN HHN Shortness of Breath 08/06/17 15:00 08/11/17 14:59 08/10/17 04:03 Amlodipine Besylate (Norvasc) 5 mg DAILY ORAL 08/12/17 09:00 09/11/17 08:59 Cetylpyridinium Chloride (Cepacol) 1 lozg Q2H PRN DC SORE THROAT 08/10/17 14:30 09/09/17 14:29 Clonidine HCl (Catapres TTS-3) 1 patch QWEEK TDERMAL 08/09/17 15:00 09/08/17 14:59 08/09/17 15:31 Dextrose (Dextrose 50%) STAT PRN IV Hypoglycemia 08/07/17 05:45 09/06/17 05:44 Guaifenesin/ Codeine Phosphate (Robitussin with codeine) 5 ml Q6H PRN ORAL For Cough 08/10/17 14:30 09/09/17 14:29 08/11/17 06:13 Heparin Sodium (Porcine) (Heparin 5000 units/ml) 5,000 units EVERY 12 HOURS SUBQ 08/06/17 21:00 09/05/17 20:59 08/11/17 08:55 Insulin Aspart (NovoLOG) BEFORE MEALS AND HS SUBQ 08/06/17 16:30 09/05/17 16:29 08/11/17 11:59 Insulin Aspart (NovoLOG) 8 units NOVOTIAC SUBQ 08/10/17 16:50 09/09/17 16:49 08/11/17 12:00 Insulin Detemir (Levemir) 12 units BID SUBQ 08/10/17 18:00 09/06/17 08:59 08/11/17 08:56 Lansoprazole (Prevacid) 30 mg BID ORAL 08/08/17 18:00 09/07/17 17:59 08/11/17 08:54 Metoprolol Tartrate (Lopressor) 12.5 mg Q12HR ORAL 08/09/17 21:00 09/08/17 20:59 08/10/17 09:54 Mirtazapine (Remeron) 7.5 mg BEDTIME ORAL 08/08/17 21:00 09/07/17 20:59 08/10/17 20:32 Morphine Sulfate (Morphine Sulfate) 2 mg Q4H PRN IVP severe pain 7-10 08/10/17 14:30 08/17/17 14:29 Nitroglycerin (Ntg) 0.4 mg Q5M X 3 DOSES PRN SL Prn Chest Pain 08/06/17 15:00 09/05/17 14:59 Ondansetron HCl (Zofran) 4 mg Q6H PRN IVP Nausea & Vomiting 08/06/17 15:00 09/05/17 14:59 08/06/17 15:44 Polyethylene Glycol (Miralax) 17 gm HSPRN PRN ORAL Constipation 08/06/17 15:00 09/05/17 14:59 Pregabalin (Lyrica) 50 mg BID ORAL 08/08/17 18:00 09/07/17 17:59 08/11/17 08:57 Temazepam (Restoril) 15 mg HSPRN PRN ORAL Insomnia 08/06/17 15:00 08/13/17 14:59 Allergies: Coded Allergies: No Known Allergies (Unverified , 04/24/14) ROS Limited/Unobtainable: No Constitutional: Reports: no symptoms HEENT: Reports: no symptoms Cardiovascular: Reports: no symptoms Respiratory: Reports: no symptoms Gastrointestinal/Abdominal: Reports: no symptoms Genitourinary: Reports: no symptoms Neurologic/Psychiatric: Reports: no symptoms Subjective 46 YO F admitted with nausea, vomiting and hyperglycemia due to malfunction of insulin pump. Accucheck improved 160-192. Cover for Int Med-Dr Hardin. Objective Last Vital Signs Date Time Temp Pulse Resp B/P (MAP) Pulse Ox O2 Delivery O2 Flow Rate FiO2 08/11/17 12:00 98.5 87 20 139/69 94 98.5 08/11/17 08:26 Room Air 21 Laboratory Tests Test 08/11/17 06:25 White Blood Count 6.1 K/UL (4.8-10.8) Red Blood Count 3.34 M/UL (4.20-5.40) L Hemoglobin 10.1 G/DL (12.0-16.0) L Hematocrit 31.1 % (37.0-47.0) L Mean Corpuscular Volume 93 FL (80-99) Mean Corpuscular Hemoglobin 30.1 PG (27.0-31.0) Mean Corpuscular Hemoglobin Concent 32.4 G/DL (32.0-36.0) Red Cell Distribution Width 13.6 % (11.6-14.8) Platelet Count 198 K/UL (150-450) Mean Platelet Volume 7.5 FL (6.5-10.1) Neutrophils (%) (Auto) 72.0 % (45.0-75.0) Lymphocytes (%) (Auto) 19.5 % (20.0-45.0) L Monocytes (%) (Auto) 7.1 % (1.0-10.0) Eosinophils (%) (Auto) 0.6 % (0.0-3.0) Basophils (%) (Auto) 0.8 % (0.0-2.0) Sodium Level 138 MMOL/L (136-145) Potassium Level 3.4 MMOL/L (3.5-5.1) L Chloride Level 102 MMOL/L (98-107) Carbon Dioxide Level 30 MMOL/L (21-32) Anion Gap 6 mmol/L (5-15) Blood Urea Nitrogen 26 mg/dL (7-18) H Creatinine 1.4 MG/DL (0.55-1.30) H Estimat Glomerular Filtration Rate 49.3 mL/min (>60) Glucose Level 194 MG/DL (74-106) #H Calcium Level 8.7 MG/DL (8.5-10.1) Phosphorus Level 3.4 MG/DL (2.5-4.9) Magnesium Level 1.6 MG/DL (1.8-2.4) L Total Bilirubin 0.2 MG/DL (0.2-1.0) Aspartate Amino Transf (AST/SGOT) 13 U/L (15-37) L Alanine Aminotransferase (ALT/SGPT) 22 U/L (12-78) Alkaline Phosphatase 77 U/L (46-116) Total Protein 5.9 G/DL (6.4-8.2) L Albumin 2.4 G/DL (3.4-5.0) L Globulin 3.5 g/dL Albumin/Globulin Ratio 0.7 (1.0-2.7) L Microbiology Date/Time Source Procedure Growth Status 08/09/17 16:58 Nasal Nares Left Influenza Types A,B Antigen (STEPH) - Final Complete Intake and Output 08/10/17 08/11/17 19:00 07:00 Intake Total 480 ml 240 ml Balance 480 ml 240 ml Intake Oral 480 ml 240 ml # Voids 3 1 Objective General Appearance: WD/WN, alert, mild distress EENT: PERRL/EOMI, normal ENT inspection Neck: non-tender, normal alignment, supple, normal inspection Cardiovascular: normal peripheral pulses, normal rate, regular rhythm, no gallop/murmur, no JVD Respiratory/Chest: chest wall non-tender, lungs clear, normal breath sounds, no respiratory distress, no accessory muscle use Abdomen: normal bowel sounds, non tender, soft, no organomegaly, no mass Extremities: normal range of motion, non-tender 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 Cont norm saline IV fluids. (2) Intractable nausea and vomiting Assessment & Plan: Resolved. continue zofran (3) Hyperglycemia Assessment & Plan: Due to malfunction of insulin pump. D/C insulin pump per endocrinology. Start levemir and novolog sliding scale. (4) ARF (acute renal failure) (5) Diabetic ketoacidosis, type I Assessment & Plan: Uncontrolled. Accucheck stable. See endocrinology note. (6) Diabetes mellitus type 1, uncontrolled, insulin dependent Assessment & Plan: See endocrinology note. (7) HTN (hypertension) Assessment & Plan: stable (8) Diabetic nephropathy (9) Renal failure Assessment & Plan: Due to dehydration due to DKA. see nephrology note. Status: progressing CHRISTOS JACOBSEN Aug 11, 2017 14:57
[2017-08-11] MEDS ORDERED: Levofloxacin 500mg tab ORAL ONE (15:00)
[2017-08-11 16:00] VITALS: BP 145/74
--- NOTE | 2017-08-11 17:37 | Pulmonology Progress Note ---
Assessment/Plan Problems: (1) Uncontrolled diabetes mellitus (2) Renal insufficiency (3) Encephalopathy (4) Major depression (5) HTN (hypertension) Assessment/Plan monitor BP still [place], SBP was 19=80 renal function better sliding scale, BS very labile slightly better iv fluids check electrolytes f/u renal and endo recommendations symptomatic treatment Subjective Allergies: Coded Allergies: No Known Allergies (Unverified , 04/24/14) Objective Last 24 Hour Vital Signs Date Time Temp Pulse Resp B/P (MAP) Pulse Ox O2 Delivery O2 Flow Rate FiO2 08/11/17 16:00 97.4 77 18 145/74 98 Room Air 97.4 08/11/17 12:00 98.5 87 20 139/69 94 98.5 08/11/17 08:59 84 103/65 08/11/17 08:58 84 103/65 08/11/17 08:26 94 18 Room Air 21 08/11/17 08:00 98.4 84 20 103/65 93 98.4 08/11/17 04:00 98.2 87 18 148/77 94 Room Air 98.2 08/11/17 00:00 98.0 78 21 111/55 91 98.0 08/10/17 20:31 74 102/50 08/10/17 20:00 98.0 74 21 102/50 94 98.0 Intake and Output 08/10/17 08/11/17 19:00 07:00 Intake Total 480 ml 240 ml Balance 480 ml 240 ml Intake Oral 480 ml 240 ml # Voids 3 1 Objective General Appearance: cachetic Lines, tubes and drains: peripheral HEENT: normocephalic, atraumatic Neck: non-tender, supple Respiratory/Chest: chest wall non-tender, lungs clear Breasts: no masses Abdomen: normal bowel sounds, no organomegaly Genitourinary/Rectal: normal genital exam Microbiology Date/Time Source Procedure Growth Status 08/09/17 16:58 Nasal Nares Left Influenza Types A,B Antigen (STEPH) - Final Complete Laboratory Tests 08/11/17 06:25: White Blood Count 6.1, Red Blood Count 3.34L, Hemoglobin 10.1L, Hematocrit 31.1L , Mean Corpuscular Volume 93, Mean Corpuscular Hemoglobin 30.1, Mean Corpuscular Hemoglobin Concent 32.4, Red Cell Distribution Width 13.6, Platelet Count 198, Mean Platelet Volume 7.5, Neutrophils (%) (Auto) 72.0, Lymphocytes (% ) (Auto) 19.5L, Monocytes (%) (Auto) 7.1, Eosinophils (%) (Auto) 0.6, Basophils (%) (Auto) 0.8, Sodium Level 138, Potassium Level 3.4L, Chloride Level 102, Carbon Dioxide Level 30, Anion Gap 6, Blood Urea Nitrogen 26H, Creatinine 1.4H, Estimat Glomerular Filtration Rate 49.3, Glucose Level 194#H, Calcium Level 8.7 , Phosphorus Level 3.4, Magnesium Level 1.6L, Total Bilirubin 0.2, Aspartate Amino Transf (AST/SGOT) 13L, Alanine Aminotransferase (ALT/SGPT) 22, Alkaline Phosphatase 77, Total Protein 5.9L, Albumin 2.4L, Globulin 3.5, Albumin/ Globulin Ratio 0.7L Current Medications Medications (Trade) Dose Ordered Sig/Lizbeth Route PRN Reason Start Time Stop Time Status Last Admin Dose Admin Acetaminophen (Tylenol) 650 mg Q4H PRN ORAL fever 08/06/17 15:00 09/05/17 14:59 Acetaminophen/ Hydrocodone Bitart ([place] 10/325) 1 tab Q4H PRN ORAL Severe Pain (Pain Scale 7-10) 08/10/17 14:30 08/17/17 14:29 Acetaminophen/ Hydrocodone Bitart ([place] 5/325) 1 tab Q4H PRN ORAL Moderate Pain (Pain Scale 4-6) 08/10/17 14:30 08/17/17 14:29 08/10/17 15:32 Amlodipine Besylate (Norvasc) 5 mg DAILY ORAL 08/12/17 09:00 09/11/17 08:59 Cetylpyridinium Chloride (Cepacol) 1 lozg Q2H PRN DC SORE THROAT 08/10/17 14:30 09/09/17 14:29 Clonidine HCl (Catapres TTS-3) 1 patch QWEEK TDERMAL 08/09/17 15:00 09/08/17 14:59 08/09/17 15:31 Dextrose (Dextrose 50%) STAT PRN IV Hypoglycemia 08/07/17 05:45 09/06/17 05:44 Guaifenesin/ Codeine Phosphate (Robitussin with codeine) 5 ml Q6H PRN ORAL For Cough 08/10/17 14:30 09/09/17 14:29 08/11/17 06:13 Heparin Sodium (Porcine) (Heparin 5000 units/ml) 5,000 units EVERY 12 HOURS SUBQ 08/06/17 21:00 09/05/17 20:59 08/11/17 08:55 Insulin Aspart (NovoLOG) BEFORE MEALS AND HS SUBQ 08/06/17 16:30 09/05/17 16:29 08/11/17 11:59 Insulin Aspart (NovoLOG) 8 units NOVOTIAC SUBQ 08/10/17 16:50 09/09/17 16:49 08/11/17 12:00 Insulin Detemir (Levemir) 12 units BID SUBQ 08/10/17 18:00 09/06/17 08:59 08/11/17 08:56 Lansoprazole (Prevacid) 30 mg BID ORAL 08/08/17 18:00 09/07/17 17:59 08/11/17 08:54 Levofloxacin (Levaquin) 500 mg Q24H ORAL 08/13/17 15:15 08/20/17 15:14 Metoprolol Tartrate (Lopressor) 12.5 mg Q12HR ORAL 08/09/17 21:00 09/08/17 20:59 08/10/17 09:54 Mirtazapine (Remeron) 7.5 mg BEDTIME ORAL 08/08/17 21:00 09/07/17 20:59 08/10/17 20:32 Morphine Sulfate (Morphine Sulfate) 2 mg Q4H PRN IVP severe pain 7-10 08/10/17 14:30 08/17/17 14:29 Nitroglycerin (Ntg) 0.4 mg Q5M X 3 DOSES PRN SL Prn Chest Pain 08/06/17 15:00 09/05/17 14:59 Ondansetron HCl (Zofran) 4 mg Q6H PRN IVP Nausea & Vomiting 08/06/17 15:00 09/05/17 14:59 08/06/17 15:44 Polyethylene Glycol (Miralax) 17 gm HSPRN PRN ORAL Constipation 08/06/17 15:00 09/05/17 14:59 Pregabalin (Lyrica) 50 mg BID ORAL 08/08/17 18:00 09/07/17 17:59 08/11/17 08:57 Temazepam (Restoril) 15 mg HSPRN PRN ORAL Insomnia 08/06/17 15:00 08/13/17 14:59 VANESSA SAGASTUME Aug 11, 2017 17:37
[2017-08-11 20:00] VITALS: BP 143/83
[2017-08-12] VITALS: BP 120/71
[2017-08-12] MEDS: NovoLOG Insulin Flexpen SUBQ SCH ×8 (06:12→20:28)
[2017-08-12 08:00] VITALS: BP 140/86
[2017-08-12 08:53] LABS: BASOPHILS % (AUTO) 0.7 % (0.0-2.0); EOSINOPHILS % (AUTO) 0.7 % (0.0-3.0); HEMATOCRIT 29.4 % (37.0-47.0); HEMOGLOBIN 9.7 G/DL (12.0-16.0); LYMPHOCYTES % (AUTO) 26.5 % (20.0-45.0); MEAN CORPUSCULAR VOLUME 93 FL (80-99); MONOCYTES % (AUTO) 6.6 % (1.0-10.0); NEUTROPHILS % (AUTO) 65.5 % (45.0-75.0); PLATELET COUNT 192 K/UL (150-450); RED BLOOD COUNT 3.14 M/UL (4.20-5.40); RED CELL DISTRIBUTION WIDTH 13.8 % (11.6-14.8)
[2017-08-12] MEDS: Heparin 5000 units/ml inj SUBQ SCH ×2 (09:00→20:20)
[2017-08-12 09:25] LABS: ALANINE AMINOTRANSFERASE 14 U/L (12-78); ALBUMIN 2.3 G/DL (3.4-5.0); ALBUMIN/GLOBULIN RATIO 0.6 (1.0-2.7); ALKALINE PHOSPHATASE 76 U/L (46-116); ANION GAP 3 mmol/L (5-15); ASPARTATE AMINO TRANSFERASE 20 U/L (15-37); BILIRUBIN,TOTAL 0.2 MG/DL (0.2-1.0); BLOOD UREA NITROGEN 14 mg/dL (7-18); CALCIUM 8.5 MG/DL (8.5-10.1); CARBON DIOXIDE 35 MMOL/L (21-32); CHLORIDE 104 MMOL/L (98-107); CREATININE 1.1 MG/DL (0.55-1.30); PHOSPHORUS 2.5 MG/DL (2.5-4.9); POTASSIUM 3.1 MMOL/L (3.5-5.1); SODIUM 142 MMOL/L (136-145)
[2017-08-12] MEDS: Metoprolol Tartrate 12.5mg TAB ORAL SCH ×2 (09:44→20:23)
[2017-08-12] MEDS: Lyrica 50mg cap ORAL SCH ×2 (09:45→18:13)
[2017-08-12] MEDS: Levemir Flexpen SUBQ SCH ×2 (09:50→18:14)
--- NOTE | 2017-08-12 10:55 | Nephrology Progress Note ---
Assessment/Plan Problem List: (1) ARF (acute renal failure) (2) Vomiting (3) Anemia (4) Hypotension Assessment Renal failure ? acute- ? underlying diabetic kidney disease Cr addie today 1.1 BS improved - Nausea with vomiting. - Hyperglycemia. - Diabetes type 1. - Hyponatremia. - Hypertension. presents with hypotension - Diabetic nephropathy. - Gastroesophageal reflux disease. - Anemia Plan Plan: K and Mag supplement Down on Norvasc TTS 3 and Lopressor continue monitor renal parameters Keep BP over 100 syst Keep BS in check avoid nephrotoxics Subjective ROS Limited/Unobtainable: No Constitutional: Reports: malaise Objective Objective Last 24 Hour Vital Signs Date Time Temp Pulse Resp B/P (MAP) Pulse Ox O2 Delivery O2 Flow Rate FiO2 08/12/17 09:44 90 140/86 08/12/17 09:44 90 140/86 08/12/17 08:00 97.2 90 18 140/86 97.2 08/12/17 07:49 95 20 Room Air 21 08/12/17 00:00 98.4 82 21 120/71 94 98.4 08/11/17 20:37 93 143/83 08/11/17 20:00 98.2 93 18 143/83 96 Room Air 98.2 08/11/17 19:00 96 20 Room Air 21 08/11/17 16:00 97.4 77 18 145/74 98 Room Air 97.4 08/11/17 12:00 98.5 87 20 139/69 94 98.5 Intake and Output 08/11/17 08/12/17 19:00 07:00 Intake Total 240 ml 480 ml Balance 240 ml 480 ml Intake Oral 240 ml 480 ml # Voids 3 2 Laboratory Tests 08/12/17 07:25: White Blood Count 6.0, Red Blood Count 3.14L, Hemoglobin 9.7L, Hematocrit 29.4L , Mean Corpuscular Volume 93, Mean Corpuscular Hemoglobin 30.7, Mean Corpuscular Hemoglobin Concent 32.9, Red Cell Distribution Width 13.8, Platelet Count 192, Mean Platelet Volume 7.6, Neutrophils (%) (Auto) 65.5, Lymphocytes (% ) (Auto) 26.5, Monocytes (%) (Auto) 6.6, Eosinophils (%) (Auto) 0.7, Basophils ( %) (Auto) 0.7, Sodium Level 142, Potassium Level 3.1L, Chloride Level 104, Carbon Dioxide Level 35H, Anion Gap 3L, Blood Urea Nitrogen 14, Creatinine 1.1, Estimat Glomerular Filtration Rate > 60, Glucose Level 71#L, Calcium Level 8.5, Phosphorus Level 2.5, Magnesium Level 1.6L, Total Bilirubin 0.2, Aspartate Amino Transf (AST/SGOT) 20, Alanine Aminotransferase (ALT/SGPT) 14, Alkaline Phosphatase 76, Total Protein 6.0L, Albumin 2.3L, Globulin 3.7, Albumin/ Globulin Ratio 0.6L Height (Feet): 5 Height (Inches): 1.00 Weight (Pounds): 110 General Appearance: no apparent distress Objective no change KYMBERLY SEAMAN Aug 12, 2017 10:55
--- NOTE | 2017-08-12 10:57 | Psych Consult Progress Note ---
Psych Consult Progress Note Consult 08/10/17 the pt is doing well. some anxiety and depression Vital Signs Last 24 Hour Vital Signs Date Time Temp Pulse Resp B/P (MAP) Pulse Ox O2 Delivery O2 Flow Rate FiO2 08/12/17 09:44 90 140/86 08/12/17 09:44 90 140/86 08/12/17 08:00 97.2 90 18 140/86 97.2 08/12/17 07:49 95 20 Room Air 21 08/12/17 00:00 98.4 82 21 120/71 94 98.4 08/11/17 20:37 93 143/83 08/11/17 20:00 98.2 93 18 143/83 96 Room Air 98.2 08/11/17 19:00 96 20 Room Air 21 08/11/17 16:00 97.4 77 18 145/74 98 Room Air 97.4 08/11/17 12:00 98.5 87 20 139/69 94 98.5 Labs Laboratory Tests Test 08/12/17 07:25 White Blood Count 6.0 K/UL (4.8-10.8) Red Blood Count 3.14 M/UL (4.20-5.40) L Hemoglobin 9.7 G/DL (12.0-16.0) L Hematocrit 29.4 % (37.0-47.0) L Mean Corpuscular Volume 93 FL (80-99) Mean Corpuscular Hemoglobin 30.7 PG (27.0-31.0) Mean Corpuscular Hemoglobin Concent 32.9 G/DL (32.0-36.0) Red Cell Distribution Width 13.8 % (11.6-14.8) Platelet Count 192 K/UL (150-450) Mean Platelet Volume 7.6 FL (6.5-10.1) Neutrophils (%) (Auto) 65.5 % (45.0-75.0) Lymphocytes (%) (Auto) 26.5 % (20.0-45.0) Monocytes (%) (Auto) 6.6 % (1.0-10.0) Eosinophils (%) (Auto) 0.7 % (0.0-3.0) Basophils (%) (Auto) 0.7 % (0.0-2.0) Sodium Level 142 MMOL/L (136-145) Potassium Level 3.1 MMOL/L (3.5-5.1) L Chloride Level 104 MMOL/L (98-107) Carbon Dioxide Level 35 MMOL/L (21-32) H Anion Gap 3 mmol/L (5-15) L Blood Urea Nitrogen 14 mg/dL (7-18) Creatinine 1.1 MG/DL (0.55-1.30) Estimat Glomerular Filtration Rate > 60 mL/min (>60) Glucose Level 71 MG/DL (74-106) #L Calcium Level 8.5 MG/DL (8.5-10.1) Phosphorus Level 2.5 MG/DL (2.5-4.9) Magnesium Level 1.6 MG/DL (1.8-2.4) L Total Bilirubin 0.2 MG/DL (0.2-1.0) Aspartate Amino Transf (AST/SGOT) 20 U/L (15-37) Alanine Aminotransferase (ALT/SGPT) 14 U/L (12-78) Alkaline Phosphatase 76 U/L (46-116) Total Protein 6.0 G/DL (6.4-8.2) L Albumin 2.3 G/DL (3.4-5.0) L Globulin 3.7 g/dL Albumin/Globulin Ratio 0.6 (1.0-2.7) L Medications Current Medications Medications (Trade) Dose Ordered Sig/Lizbeth Route PRN Reason Start Time Stop Time Status Last Admin Dose Admin Acetaminophen (Tylenol) 650 mg Q4H PRN ORAL fever 08/06/17 15:00 09/05/17 14:59 Acetaminophen/ Hydrocodone Bitart ([place] 5/325) 1 tab Q4H PRN ORAL Moderate Pain (Pain Scale 4-6) 08/10/17 14:30 08/17/17 14:29 08/10/17 15:32 Amlodipine Besylate (Norvasc) 5 mg DAILY ORAL 08/12/17 09:00 09/11/17 08:59 08/12/17 09:44 Cetylpyridinium Chloride (Cepacol) 1 lozg Q2H PRN DC SORE THROAT 08/10/17 14:30 09/09/17 14:29 Clonidine HCl (Catapres TTS-3) 1 patch QWEEK TDERMAL 08/09/17 15:00 09/08/17 14:59 08/09/17 15:31 Dextrose (Dextrose 50%) STAT PRN IV Hypoglycemia 08/07/17 05:45 09/06/17 05:44 Guaifenesin/ Codeine Phosphate (Robitussin with codeine) 10 ml Q6H PRN ORAL For Cough 08/12/17 14:30 09/11/17 14:29 Heparin Sodium (Porcine) (Heparin 5000 units/ml) 5,000 units EVERY 12 HOURS SUBQ 08/06/17 21:00 09/05/17 20:59 08/11/17 08:55 Insulin Aspart (NovoLOG) BEFORE MEALS AND HS SUBQ 08/06/17 16:30 09/05/17 16:29 08/11/17 20:37 Insulin Aspart (NovoLOG) 8 units NOVOTIAC SUBQ 08/10/17 16:50 09/09/17 16:49 08/12/17 06:18 Insulin Detemir (Levemir) 12 units BID SUBQ 08/10/17 18:00 09/06/17 08:59 08/12/17 09:50 Lansoprazole (Prevacid) 30 mg BID ORAL 08/08/17 18:00 09/07/17 17:59 08/12/17 09:44 Levofloxacin (Levaquin) 500 mg Q24H ORAL 08/13/17 15:15 08/20/17 15:14 Magnesium Sulfate 100 ml @ 100 mls/hr Q1H IVPB 08/12/17 11:00 08/12/17 14:59 UNV Metoprolol Tartrate (Lopressor) 12.5 mg Q12HR ORAL 08/09/17 21:00 09/08/17 20:59 08/12/17 09:44 Mirtazapine (Remeron) 7.5 mg BEDTIME ORAL 08/08/17 21:00 09/07/17 20:59 08/11/17 20:37 Morphine Sulfate (Morphine Sulfate) 2 mg Q4H PRN IVP severe pain 7-10 08/10/17 14:30 08/17/17 14:29 Nitroglycerin (Ntg) 0.4 mg Q5M X 3 DOSES PRN SL Prn Chest Pain 08/06/17 15:00 09/05/17 14:59 Ondansetron HCl (Zofran) 4 mg Q6H PRN IVP Nausea & Vomiting 08/06/17 15:00 09/05/17 14:59 08/06/17 15:44 Polyethylene Glycol (Miralax) 17 gm HSPRN PRN ORAL Constipation 08/06/17 15:00 09/05/17 14:59 Potassium Chloride 50 meq/ Sodium Chloride 575 ml @ 115 mls/hr ONCE ONCE IVPB 08/12/17 12:00 08/12/17 16:59 Pregabalin (Lyrica) 50 mg BID ORAL 08/08/17 18:00 09/07/17 17:59 08/12/17 09:45 Temazepam (Restoril) 15 mg HSPRN PRN ORAL Insomnia 08/06/17 15:00 08/13/17 14:59 Problems: (1) Hypotension Status: Acute (2) Hyperglycemia (3) Anemia Status: Acute (4) GERD (gastroesophageal reflux disease) (5) Diabetes mellitus type 1, uncontrolled, insulin dependent (6) Major depression Status: Chronic Assessment & Plan: Assessment/Plan mdd remeron 7.5 mg qhs (7) Renal insufficiency (8) Encephalopathy (9) HTN (hypertension) Status: Acute (10) Uncontrolled diabetes mellitus (11) Hyponatremia (12) Renal failure Status: Acute (13) Diabetic nephropathy (14) Intractable nausea and vomiting Status: Acute (15) Esophagitis (16) Constipation (17) Dehydration Status: Acute (18) Hyperkalemia (19) Anemia (20) Dysphagia Status: Acute (21) Depression (22) Diabetes Status: Acute (23) Diabetic ketoacidosis, type I Status: Acute (24) DKA (diabetic ketoacidoses) (25) Diarrhea Status: Acute (26) Diarrhea Status: Acute (27) SOB (shortness of breath) Status: Acute (28) Gastritis (29) Pancreatitis (30) Hypophosphatemia Status: Acute (31) Hypophosphatemia (32) Esophageal ulcer Status: Acute (33) Hyperosmolar coma Status: Acute (34) Epigastric pain Status: Acute (35) Hypoalbuminemia (36) UTI (urinary tract infection) (37) Chest pain Status: Acute (38) Chest pain Status: Acute (39) Hypertension (40) Diabetic gastroparesis Status: Acute (41) Britney esophagitis Status: Acute (42) Acidosis, metabolic (43) DKA (diabetic ketoacidosis) (44) Nausea & vomiting (45) Esophageal ulcer without bleeding Status: Acute (46) Non-compliance with treatment Status: Acute (47) CKD (chronic kidney disease) (48) Diabetes type 1, uncontrolled Status: Acute (49) Hypertensive emergency (50) esophageal u Status: Acute (51) Diabetic ketoacidosis, type I Status: Acute (52) Vomiting Status: Acute (53) ARF (acute renal failure) Status: Acute (54) Urinary retention Status: Acute (55) Oral candidiasis Status: Acute Elisha Hardy M.D. Aug 12, 2017 10:57
--- NOTE | 2017-08-12 11:17 | Internal Med Progress Note ---
Subjective Date of Service: Aug 12, 2017 Physician Name Christos Jacobsen Attending Physician Aries Hardin MD Current Medications Medications (Trade) Dose Ordered Sig/Lizbeth Route PRN Reason Start Time Stop Time Status Last Admin Dose Admin Acetaminophen (Tylenol) 650 mg Q4H PRN ORAL fever 08/06/17 15:00 09/05/17 14:59 Acetaminophen/ Hydrocodone Bitart ([place] 5/325) 1 tab Q4H PRN ORAL Moderate Pain (Pain Scale 4-6) 08/10/17 14:30 08/17/17 14:29 08/10/17 15:32 Amlodipine Besylate (Norvasc) 5 mg DAILY ORAL 08/12/17 09:00 09/11/17 08:59 08/12/17 09:44 Cetylpyridinium Chloride (Cepacol) 1 lozg Q2H PRN DC SORE THROAT 08/10/17 14:30 09/09/17 14:29 Clonidine HCl (Catapres TTS-3) 1 patch QWEEK TDERMAL 08/09/17 15:00 09/08/17 14:59 08/09/17 15:31 Dextrose (Dextrose 50%) STAT PRN IV Hypoglycemia 08/07/17 05:45 09/06/17 05:44 Guaifenesin/ Codeine Phosphate (Robitussin with codeine) 10 ml Q6H PRN ORAL For Cough 08/12/17 14:30 09/11/17 14:29 Heparin Sodium (Porcine) (Heparin 5000 units/ml) 5,000 units EVERY 12 HOURS SUBQ 08/06/17 21:00 09/05/17 20:59 08/11/17 08:55 Insulin Aspart (NovoLOG) BEFORE MEALS AND HS SUBQ 08/06/17 16:30 09/05/17 16:29 08/11/17 20:37 Insulin Aspart (NovoLOG) 8 units NOVOTIAC SUBQ 08/10/17 16:50 09/09/17 16:49 08/12/17 06:18 Insulin Detemir (Levemir) 12 units BID SUBQ 08/10/17 18:00 09/06/17 08:59 08/12/17 09:50 Lansoprazole (Prevacid) 30 mg BID ORAL 08/08/17 18:00 09/07/17 17:59 08/12/17 09:44 Levofloxacin (Levaquin) 500 mg Q24H ORAL 08/13/17 15:15 08/20/17 15:14 Magnesium Sulfate 100 ml @ 100 mls/hr Q1H IVPB 08/12/17 11:00 08/12/17 14:59 Metoprolol Tartrate (Lopressor) 12.5 mg Q12HR ORAL 08/09/17 21:00 09/08/17 20:59 08/12/17 09:44 Mirtazapine (Remeron) 7.5 mg BEDTIME ORAL 08/08/17 21:00 09/07/17 20:59 08/11/17 20:37 Morphine Sulfate (Morphine Sulfate) 2 mg Q4H PRN IVP severe pain 7-10 08/10/17 14:30 08/17/17 14:29 Nitroglycerin (Ntg) 0.4 mg Q5M X 3 DOSES PRN SL Prn Chest Pain 08/06/17 15:00 09/05/17 14:59 Ondansetron HCl (Zofran) 4 mg Q6H PRN IVP Nausea & Vomiting 08/06/17 15:00 09/05/17 14:59 08/06/17 15:44 Polyethylene Glycol (Miralax) 17 gm HSPRN PRN ORAL Constipation 08/06/17 15:00 09/05/17 14:59 Potassium Chloride 50 meq/ Sodium Chloride 575 ml @ 115 mls/hr ONCE ONCE IVPB 08/12/17 12:00 08/12/17 16:59 Pregabalin (Lyrica) 50 mg BID ORAL 08/08/17 18:00 09/07/17 17:59 08/12/17 09:45 Temazepam (Restoril) 15 mg HSPRN PRN ORAL Insomnia 08/06/17 15:00 08/13/17 14:59 Allergies: Coded Allergies: No Known Allergies (Unverified , 04/24/14) ROS Limited/Unobtainable: No Constitutional: Reports: no symptoms HEENT: Reports: no symptoms Cardiovascular: Reports: no symptoms Respiratory: Reports: cough Gastrointestinal/Abdominal: Reports: no symptoms Genitourinary: Reports: no symptoms Neurologic/Psychiatric: Reports: no symptoms Subjective 46 YO F admitted with nausea, vomiting and hyperglycemia due to malfunction of insulin pump. Accucheck improved 92-104. Cover for Int Med-Dr Hardin. Objective Last Vital Signs Date Time Temp Pulse Resp B/P (MAP) Pulse Ox O2 Delivery O2 Flow Rate FiO2 08/12/17 09:44 90 140/86 08/12/17 08:00 97.2 18 97.2 08/12/17 07:49 Room Air 21 08/12/17 00:00 94 Laboratory Tests Test 08/12/17 07:25 White Blood Count 6.0 K/UL (4.8-10.8) Red Blood Count 3.14 M/UL (4.20-5.40) L Hemoglobin 9.7 G/DL (12.0-16.0) L Hematocrit 29.4 % (37.0-47.0) L Mean Corpuscular Volume 93 FL (80-99) Mean Corpuscular Hemoglobin 30.7 PG (27.0-31.0) Mean Corpuscular Hemoglobin Concent 32.9 G/DL (32.0-36.0) Red Cell Distribution Width 13.8 % (11.6-14.8) Platelet Count 192 K/UL (150-450) Mean Platelet Volume 7.6 FL (6.5-10.1) Neutrophils (%) (Auto) 65.5 % (45.0-75.0) Lymphocytes (%) (Auto) 26.5 % (20.0-45.0) Monocytes (%) (Auto) 6.6 % (1.0-10.0) Eosinophils (%) (Auto) 0.7 % (0.0-3.0) Basophils (%) (Auto) 0.7 % (0.0-2.0) Sodium Level 142 MMOL/L (136-145) Potassium Level 3.1 MMOL/L (3.5-5.1) L Chloride Level 104 MMOL/L (98-107) Carbon Dioxide Level 35 MMOL/L (21-32) H Anion Gap 3 mmol/L (5-15) L Blood Urea Nitrogen 14 mg/dL (7-18) Creatinine 1.1 MG/DL (0.55-1.30) Estimat Glomerular Filtration Rate > 60 mL/min (>60) Glucose Level 71 MG/DL (74-106) #L Calcium Level 8.5 MG/DL (8.5-10.1) Phosphorus Level 2.5 MG/DL (2.5-4.9) Magnesium Level 1.6 MG/DL (1.8-2.4) L Total Bilirubin 0.2 MG/DL (0.2-1.0) Aspartate Amino Transf (AST/SGOT) 20 U/L (15-37) Alanine Aminotransferase (ALT/SGPT) 14 U/L (12-78) Alkaline Phosphatase 76 U/L (46-116) Total Protein 6.0 G/DL (6.4-8.2) L Albumin 2.3 G/DL (3.4-5.0) L Globulin 3.7 g/dL Albumin/Globulin Ratio 0.6 (1.0-2.7) L Microbiology Date/Time Source Procedure Growth Status 08/09/17 16:58 Nasal Nares Left Influenza Types A,B Antigen (STEPH) - Final Complete Intake and Output 08/11/17 08/12/17 19:00 07:00 Intake Total 240 ml 480 ml Balance 240 ml 480 ml Intake Oral 240 ml 480 ml # Voids 3 2 Objective General Appearance: WD/WN, alert, mild distress EENT: PERRL/EOMI, normal ENT inspection Neck: non-tender, normal alignment, supple, normal inspection Cardiovascular: normal peripheral pulses, normal rate, regular rhythm, no gallop/murmur, no JVD Respiratory/Chest: chest wall non-tender, lungs clear, normal breath sounds, no respiratory distress, no accessory muscle use Abdomen: normal bowel sounds, non tender, soft, no organomegaly, no mass Extremities: normal range of motion, non-tender 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 Cont norm saline IV fluids. (2) Intractable nausea and vomiting Assessment & Plan: Resolved. continue zofran (3) Hyperglycemia Assessment & Plan: Due to malfunction of insulin pump. D/C insulin pump per endocrinology. Start levemir and novolog sliding scale. (4) ARF (acute renal failure) (5) Diabetic ketoacidosis, type I Assessment & Plan: Uncontrolled. Accucheck stable. See endocrinology note. (6) Diabetes mellitus type 1, uncontrolled, insulin dependent Assessment & Plan: See endocrinology note. (7) HTN (hypertension) Assessment & Plan: stable (8) Diabetic nephropathy (9) Renal failure Assessment & Plan: Due to dehydration due to DKA. see nephrology note. (10) Cough Assessment & Plan: await chest xray. Continue levaquin Status: progressing Assessment/Plan Discharge planning CHRISTOS JACOBSEN Aug 12, 2017 11:17
[2017-08-12 12:00] VITALS: BP 152/80
[2017-08-12] MEDS ORDERED: Potassium Chloride 50 MEQ in Sodium Chloride 500ML 550 ML IVPB ONE (12:00)
--- NOTE | 2017-08-12 12:20 | Diagnostic Imaging Report ---
Indication: Cough Comparison: 08/06/2017 2 views of the chest obtained. There is a suggestion of mild interstitial edema with prominent pulmonary vascularity and heart size. Lung volumes are low. Please correlate clinically. Bones are unremarkable. IMPRESSION: Query mild CHF
[2017-08-12] MEDS: Losartan 50mg tab ORAL SCH ×2 (13:12→20:23)
[2017-08-12] MEDS ORDERED: guaiFENesin w/Codeine 5ml Liq ud ORAL PRN (14:30)
[2017-08-12 16:15] VITALS: BP 123/67
--- NOTE | 2017-08-12 17:51 | General Progress Note ---
Assessment/Plan Problem List: (1) Diabetes mellitus type 1, uncontrolled, insulin dependent ICD Codes: E10.65 - Type 1 diabetes mellitus with hyperglycemia SNOMED: 85500186, 859972891 (2) GERD (gastroesophageal reflux disease) ICD Codes: K21.9 - Gastro-esophageal reflux disease without esophagitis SNOMED: 335261838 (3) Anemia ICD Codes: D64.9 - Anemia, unspecified SNOMED: 384256751 Assessment/Plan continue Levemir 12 units bid continue Novolog to 8 units ac tid + NISS continue IVF resume insulin pump therapy + sensor as OP Subjective Allergies: Coded Allergies: No Known Allergies (Unverified , 04/24/14) All Systems: reviewed and negative except above Subjective events noted fasting glucose improved Objective Last 24 Hour Vital Signs Date Time Temp Pulse Resp B/P (MAP) Pulse Ox O2 Delivery O2 Flow Rate FiO2 08/12/17 16:15 97.9 83 18 123/67 94 Room Air 97.9 08/12/17 13:12 152/80 08/12/17 12:00 98.6 89 18 152/80 95 98.6 08/12/17 09:44 90 140/86 08/12/17 09:44 90 140/86 08/12/17 08:00 97.2 90 18 140/86 97.2 08/12/17 07:49 95 20 Room Air 21 08/12/17 00:00 98.4 82 21 120/71 94 98.4 08/11/17 20:37 93 143/83 08/11/17 20:00 98.2 93 18 143/83 96 Room Air 98.2 08/11/17 19:00 96 20 Room Air 21 Intake and Output 08/11/17 08/12/17 19:00 07:00 Intake Total 240 ml 480 ml Balance 240 ml 480 ml Intake Oral 240 ml 480 ml # Voids 3 2 Laboratory Tests 08/12/17 07:25: White Blood Count 6.0, Red Blood Count 3.14L, Hemoglobin 9.7L, Hematocrit 29.4L , Mean Corpuscular Volume 93, Mean Corpuscular Hemoglobin 30.7, Mean Corpuscular Hemoglobin Concent 32.9, Red Cell Distribution Width 13.8, Platelet Count 192, Mean Platelet Volume 7.6, Neutrophils (%) (Auto) 65.5, Lymphocytes (% ) (Auto) 26.5, Monocytes (%) (Auto) 6.6, Eosinophils (%) (Auto) 0.7, Basophils ( %) (Auto) 0.7, Sodium Level 142, Potassium Level 3.1L, Chloride Level 104, Carbon Dioxide Level 35H, Anion Gap 3L, Blood Urea Nitrogen 14, Creatinine 1.1, Estimat Glomerular Filtration Rate > 60, Glucose Level 71#L, Calcium Level 8.5, Phosphorus Level 2.5, Magnesium Level 1.6L, Total Bilirubin 0.2, Aspartate Amino Transf (AST/SGOT) 20, Alanine Aminotransferase (ALT/SGPT) 14, Alkaline Phosphatase 76, Total Protein 6.0L, Albumin 2.3L, Globulin 3.7, Albumin/ Globulin Ratio 0.6L Height (Feet): 5 Height (Inches): 1.00 Weight (Pounds): 110 General Appearance: no apparent distress Neck: normal alignment Cardiovascular: normal rate Respiratory/Chest: decreased breath sounds Abdomen: normal bowel sounds Pelvis: normal external exam Objective Current Medications Medications (Trade) Dose Ordered Sig/Lizbeth Route PRN Reason Start Time Stop Time Status Last Admin Dose Admin Acetaminophen (Tylenol) 650 mg Q4H PRN ORAL fever 08/06/17 15:00 09/05/17 14:59 Acetaminophen/ Hydrocodone Bitart ([place] 5/325) 1 tab Q4H PRN ORAL Moderate Pain (Pain Scale 4-6) 08/10/17 14:30 08/17/17 14:29 08/10/17 15:32 Amlodipine Besylate (Norvasc) 10 mg DAILY ORAL 08/13/17 09:00 09/12/17 08:59 Cetylpyridinium Chloride (Cepacol) 1 lozg Q2H PRN DC SORE THROAT 08/10/17 14:30 09/09/17 14:29 Dextrose (Dextrose 50%) STAT PRN IV Hypoglycemia 08/07/17 05:45 09/06/17 05:44 Guaifenesin/ Codeine Phosphate (Robitussin with codeine) 10 ml Q6H PRN ORAL For Cough 08/12/17 14:30 09/11/17 14:29 Heparin Sodium (Porcine) (Heparin 5000 units/ml) 5,000 units EVERY 12 HOURS SUBQ 08/06/17 21:00 09/05/17 20:59 2/25/18 08:55 Insulin Aspart (NovoLOG) BEFORE MEALS AND HS SUBQ 08/06/17 16:30 09/05/17 16:29 08/12/17 12:08 Insulin Aspart (NovoLOG) 8 units NOVOTIAC SUBQ 08/10/17 16:50 09/09/17 16:49 08/12/17 17:34 Insulin Detemir (Levemir) 12 units BID SUBQ 08/10/17 18:00 09/06/17 08:59 08/12/17 09:50 Lansoprazole (Prevacid) 30 mg BID ORAL 08/08/17 18:00 09/07/17 17:59 08/12/17 09:44 Levofloxacin (Levaquin) 500 mg Q24H ORAL 08/13/17 15:15 08/20/17 15:14 Losartan Potassium (Cozaar) 50 mg EVERY 12 HOURS ORAL 08/12/17 12:00 09/11/17 11:59 08/12/17 13:12 Metoprolol Tartrate (Lopressor) 12.5 mg Q12HR ORAL 08/09/17 21:00 09/08/17 20:59 08/12/17 09:44 Mirtazapine (Remeron) 7.5 mg BEDTIME ORAL 08/08/17 21:00 09/07/17 20:59 08/11/17 20:37 Morphine Sulfate (Morphine Sulfate) 2 mg Q4H PRN IVP severe pain 7-10 08/10/17 14:30 08/17/17 14:29 Nitroglycerin (Ntg) 0.4 mg Q5M X 3 DOSES PRN SL Prn Chest Pain 08/06/17 15:00 09/05/17 14:59 Ondansetron HCl (Zofran) 4 mg Q6H PRN IVP Nausea & Vomiting 08/06/17 15:00 09/05/17 14:59 08/06/17 15:44 Polyethylene Glycol (Miralax) 17 gm HSPRN PRN ORAL Constipation 08/06/17 15:00 09/05/17 14:59 Pregabalin (Lyrica) 50 mg BID ORAL 08/08/17 18:00 09/07/17 17:59 08/12/17 09:45 Temazepam (Restoril) 15 mg HSPRN PRN ORAL Insomnia 08/06/17 15:00 08/13/17 14:59 Item Value Date Time Bedside Blood Glucose 105 mg/dl 08/12/17 1734 Bedside Blood Glucose 169 mg/dl H 08/12/17 1208 Bedside Blood Glucose 104 mg/dl 08/12/17 0950 Bedside Blood Glucose 92 mg/dl 08/12/17 0618 Bedside Blood Glucose 311 mg/dl H 08/11/17 2100 Bedside Blood Glucose 61 mg/dl L 08/11/17 1821 Bedside Blood Glucose 160 mg/dl H 08/11/17 1200 IVY SULLIVAN Aug 12, 2017 17:51
[2017-08-12 20:00] VITALS: BP 165/94
[2017-08-13] VITALS: BP 153/80
[2017-08-13 04:00] VITALS: BP 128/60
[2017-08-13] MEDS: NovoLOG Insulin Flexpen SUBQ SCH ×6 (06:30→17:33)
[2017-08-13 07:03] LABS: EOSINOPHILS % (AUTO) 1.4 % (0.0-3.0); HEMATOCRIT 31.7 % (37.0-47.0); HEMOGLOBIN 10.4 G/DL (12.0-16.0); LYMPHOCYTES % (AUTO) 40.1 % (20.0-45.0); MEAN CORPUSCULAR VOLUME 93 FL (80-99); NEUTROPHILS % (AUTO) 48.5 % (45.0-75.0); PLATELET COUNT 175 K/UL (150-450); RED CELL DISTRIBUTION WIDTH 13.8 % (11.6-14.8); WHITE BLOOD COUNT 4.6 K/UL (4.8-10.8)
[2017-08-13 07:05] LABS: ANION GAP 2 mmol/L (5-15); BLOOD UREA NITROGEN 17 mg/dL (7-18); CALCIUM 8.8 MG/DL (8.5-10.1); CARBON DIOXIDE 36 MMOL/L (21-32); CHLORIDE 102 MMOL/L (98-107); CREATININE 0.9 MG/DL (0.55-1.30); POTASSIUM 4.1 MMOL/L (3.5-5.1); SODIUM 140 MMOL/L (136-145)
[2017-08-13 08:00] VITALS: BP 172/97
[2017-08-13] MEDS: Losartan 50mg tab ORAL SCH (08:44)
[2017-08-13] MEDS: Lyrica 50mg cap ORAL SCH ×2 (08:45→17:39)
[2017-08-13] MEDS: Levemir Flexpen SUBQ SCH ×2 (08:52→17:40)
[2017-08-13] MEDS: Metoprolol Tartrate 12.5mg TAB ORAL SCH (08:58)
[2017-08-13] MEDS: Heparin 5000 units/ml inj SUBQ SCH (09:00)
[2017-08-13 12:00] VITALS: BP 133/82
--- NOTE | 2017-08-13 14:50 | Nephrology Progress Note ---
Assessment/Plan Problem List: (1) ARF (acute renal failure) (2) Vomiting (3) Anemia (4) Hypotension Assessment Renal failure ? acute- ? underlying diabetic kidney disease Cr addie today 1.1 BS improved - Nausea with vomiting. - Hyperglycemia. - Diabetes type 1. - Hyponatremia. - Hypertension. presents with hypotension - Diabetic nephropathy. - Gastroesophageal reflux disease. - Anemia Plan Plan: K and Mag supplement Down on Norvasc TTS 3 and Lopressor continue monitor renal parameters Keep BP over 100 syst Keep BS in check avoid nephrotoxics Subjective ROS Limited/Unobtainable: No Constitutional: Reports: malaise Objective Objective Last 24 Hour Vital Signs Date Time Temp Pulse Resp B/P (MAP) Pulse Ox O2 Delivery O2 Flow Rate FiO2 08/13/17 12:00 97.6 83 20 133/82 96 Room Air 97.6 08/13/17 08:58 94 172/97 08/13/17 08:45 94 172/97 08/13/17 08:44 172/94 08/13/17 08:00 97.8 86 20 172/97 94 97.8 08/13/17 07:53 82 18 Room Air 21 08/13/17 04:00 97.6 73 20 128/60 95 97.6 08/13/17 00:00 97.3 80 18 153/80 96 97.3 08/12/17 20:23 165/94 08/12/17 20:23 91 165/94 08/12/17 20:00 97.3 91 18 165/94 96 97.3 08/12/17 19:11 97 18 Room Air 21 08/12/17 16:15 97.9 83 18 123/67 94 Room Air 97.9 Intake and Output 08/12/17 08/13/17 19:00 07:00 Intake Total 940 ml 400 ml Balance 940 ml 400 ml Intake Oral 840 ml IV Total 100 ml 400 ml # Voids 3 3 # Bowel Movements 1 Current Medications Medications (Trade) Dose Ordered Sig/Lizbeth Route PRN Reason Start Time Stop Time Status Last Admin Dose Admin Acetaminophen (Tylenol) 650 mg Q4H PRN ORAL fever 08/06/17 15:00 09/05/17 14:59 Acetaminophen/ Hydrocodone Bitart ([place] 5/325) 1 tab Q4H PRN ORAL Moderate Pain (Pain Scale 4-6) 08/10/17 14:30 08/17/17 14:29 08/10/17 15:32 Amlodipine Besylate (Norvasc) 10 mg DAILY ORAL 08/13/17 09:00 09/12/17 08:59 08/13/17 08:45 Cetylpyridinium Chloride (Cepacol) 1 lozg Q2H PRN DC SORE THROAT 08/10/17 14:30 09/09/17 14:29 Dextrose (Dextrose 50%) STAT PRN IV Hypoglycemia 08/07/17 05:45 09/06/17 05:44 08/12/17 19:40 Guaifenesin/ Codeine Phosphate (Robitussin with codeine) 10 ml Q6H PRN ORAL For Cough 08/12/17 14:30 09/11/17 14:29 08/12/17 18:14 Heparin Sodium (Porcine) (Heparin 5000 units/ml) 5,000 units EVERY 12 HOURS SUBQ 08/06/17 21:00 09/05/17 20:59 08/11/17 08:55 Insulin Aspart (NovoLOG) BEFORE MEALS AND HS SUBQ 08/06/17 16:30 09/05/17 16:29 08/13/17 12:27 Insulin Aspart (NovoLOG) 8 units NOVOTIAC SUBQ 08/10/17 16:50 09/09/17 16:49 08/13/17 12:27 Insulin Detemir (Levemir) 12 units BID SUBQ 08/10/17 18:00 09/06/17 08:59 08/13/17 08:52 Lansoprazole (Prevacid) 30 mg BID ORAL 08/08/17 18:00 09/07/17 17:59 08/13/17 08:45 Levofloxacin (Levaquin) 500 mg Q24H ORAL 08/13/17 15:15 08/20/17 15:14 Losartan Potassium (Cozaar) 50 mg EVERY 12 HOURS ORAL 08/12/17 12:00 09/11/17 11:59 08/13/17 08:44 Metoprolol Tartrate (Lopressor) 12.5 mg Q12HR ORAL 08/09/17 21:00 09/08/17 20:59 08/13/17 08:58 Mirtazapine (Remeron) 7.5 mg BEDTIME ORAL 08/08/17 21:00 09/07/17 20:59 08/12/17 20:23 Morphine Sulfate (Morphine Sulfate) 2 mg Q4H PRN IVP severe pain 7-10 08/10/17 14:30 08/17/17 14:29 Nitroglycerin (Ntg) 0.4 mg Q5M X 3 DOSES PRN SL Prn Chest Pain 08/06/17 15:00 09/05/17 14:59 Ondansetron HCl (Zofran) 4 mg Q6H PRN IVP Nausea & Vomiting 08/06/17 15:00 09/05/17 14:59 08/06/17 15:44 Polyethylene Glycol (Miralax) 17 gm HSPRN PRN ORAL Constipation 08/06/17 15:00 09/05/17 14:59 Pregabalin (Lyrica) 50 mg BID ORAL 08/08/17 18:00 09/07/17 17:59 08/13/17 08:45 Temazepam (Restoril) 15 mg HSPRN PRN ORAL Insomnia 08/06/17 15:00 08/13/17 14:59 Laboratory Tests 08/13/17 05:35: White Blood Count 4.6L, Red Blood Count 3.40L, Hemoglobin 10.4L, Hematocrit 31.7L, Mean Corpuscular Volume 93, Mean Corpuscular Hemoglobin 30.7, Mean Corpuscular Hemoglobin Concent 32.9, Red Cell Distribution Width 13.8, Platelet Count 175, Mean Platelet Volume 7.0, Neutrophils (%) (Auto) 48.5, Lymphocytes (% ) (Auto) 40.1, Monocytes (%) (Auto) 9.0, Eosinophils (%) (Auto) 1.4, Basophils ( %) (Auto) 1.0, Sodium Level 140, Potassium Level 4.1, Chloride Level 102, Carbon Dioxide Level 36H, Anion Gap 2L, Blood Urea Nitrogen 17, Creatinine 0.9, Estimat Glomerular Filtration Rate > 60, Glucose Level 141H, Calcium Level 8.8 Height (Feet): 5 Height (Inches): 1.00 Weight (Pounds): 110 General Appearance: no apparent distress Objective no change KYMBERLY SEAMAN Aug 13, 2017 14:50
[2017-08-13] MEDS ORDERED: Levofloxacin 500mg tab ORAL SCH (15:15)
[2017-08-13 15:49] VITALS: BP 133/74
--- NOTE | 2017-08-13 15:50 | Pulmonology Progress Note ---
Assessment/Plan Problems: (1) Uncontrolled diabetes mellitus (2) Renal insufficiency (3) Encephalopathy (4) Major depression (5) HTN (hypertension) Assessment/Plan monitor BP, getting better renal function better sliding scale, BS very labile check electrolytes f/u renal and endo recommendations symptomatic treatment Subjective ROS Limited/Unobtainable: No Interval Events: late note for 08/12 Constitutional: Reports: no symptoms HEENT: Repors: no symptoms Respiratory: Reports: no symptoms Allergies: Coded Allergies: No Known Allergies (Unverified , 04/24/14) Objective Last 24 Hour Vital Signs Date Time Temp Pulse Resp B/P (MAP) Pulse Ox O2 Delivery O2 Flow Rate FiO2 08/13/17 12:00 97.6 83 20 133/82 96 Room Air 97.6 08/13/17 08:58 94 172/97 08/13/17 08:45 94 172/97 08/13/17 08:44 172/94 08/13/17 08:00 97.8 86 20 172/97 94 97.8 08/13/17 07:53 82 18 Room Air 21 08/13/17 04:00 97.6 73 20 128/60 95 97.6 08/13/17 00:00 97.3 80 18 153/80 96 97.3 08/12/17 20:23 165/94 08/12/17 20:23 91 165/94 08/12/17 20:00 97.3 91 18 165/94 96 97.3 08/12/17 19:11 97 18 Room Air 21 08/12/17 16:15 97.9 83 18 123/67 94 Room Air 97.9 Intake and Output 08/12/17 08/13/17 19:00 07:00 Intake Total 940 ml 400 ml Balance 940 ml 400 ml Intake Oral 840 ml IV Total 100 ml 400 ml # Voids 3 3 # Bowel Movements 1 Objective General Appearance: cachetic Lines, tubes and drains: peripheral HEENT: normocephalic, atraumatic Neck: non-tender, supple Respiratory/Chest: chest wall non-tender, lungs clear Breasts: no masses Abdomen: normal bowel sounds, no organomegaly Genitourinary/Rectal: normal genital exam Laboratory Tests 08/13/17 05:35: White Blood Count 4.6L, Red Blood Count 3.40L, Hemoglobin 10.4L, Hematocrit 31.7L, Mean Corpuscular Volume 93, Mean Corpuscular Hemoglobin 30.7, Mean Corpuscular Hemoglobin Concent 32.9, Red Cell Distribution Width 13.8, Platelet Count 175, Mean Platelet Volume 7.0, Neutrophils (%) (Auto) 48.5, Lymphocytes (% ) (Auto) 40.1, Monocytes (%) (Auto) 9.0, Eosinophils (%) (Auto) 1.4, Basophils ( %) (Auto) 1.0, Sodium Level 140, Potassium Level 4.1, Chloride Level 102, Carbon Dioxide Level 36H, Anion Gap 2L, Blood Urea Nitrogen 17, Creatinine 0.9, Estimat Glomerular Filtration Rate > 60, Glucose Level 141H, Calcium Level 8.8 Current Medications Medications (Trade) Dose Ordered Sig/Lizbeth Route PRN Reason Start Time Stop Time Status Last Admin Dose Admin Acetaminophen (Tylenol) 650 mg Q4H PRN ORAL fever 08/06/17 15:00 09/05/17 14:59 Acetaminophen/ Hydrocodone Bitart ([place] 5/325) 1 tab Q4H PRN ORAL Moderate Pain (Pain Scale 4-6) 08/10/17 14:30 08/17/17 14:29 08/10/17 15:32 Amlodipine Besylate (Norvasc) 10 mg DAILY ORAL 08/13/17 09:00 09/12/17 08:59 08/13/17 08:45 Cetylpyridinium Chloride (Cepacol) 1 lozg Q2H PRN DC SORE THROAT 08/10/17 14:30 09/09/17 14:29 Dextrose (Dextrose 50%) STAT PRN IV Hypoglycemia 08/07/17 05:45 09/06/17 05:44 08/12/17 19:40 Guaifenesin/ Codeine Phosphate (Robitussin with codeine) 10 ml Q6H PRN ORAL For Cough 08/12/17 14:30 09/11/17 14:29 08/12/17 18:14 Heparin Sodium (Porcine) (Heparin 5000 units/ml) 5,000 units EVERY 12 HOURS SUBQ 08/06/17 21:00 09/05/17 20:59 08/11/17 08:55 Insulin Aspart (NovoLOG) BEFORE MEALS AND HS SUBQ 08/06/17 16:30 09/05/17 16:29 08/13/17 12:27 Insulin Aspart (NovoLOG) 8 units NOVOTIAC SUBQ 08/10/17 16:50 09/09/17 16:49 08/13/17 12:27 Insulin Detemir (Levemir) 12 units BID SUBQ 08/10/17 18:00 09/06/17 08:59 08/13/17 08:52 Lansoprazole (Prevacid) 30 mg BID ORAL 08/08/17 18:00 09/07/17 17:59 08/13/17 08:45 Levofloxacin (Levaquin) 500 mg Q24H ORAL 08/13/17 15:15 08/20/17 15:14 Losartan Potassium (Cozaar) 50 mg EVERY 12 HOURS ORAL 08/12/17 12:00 09/11/17 11:59 08/13/17 08:44 Metoprolol Tartrate (Lopressor) 12.5 mg Q12HR ORAL 08/09/17 21:00 09/08/17 20:59 08/13/17 08:58 Mirtazapine (Remeron) 7.5 mg BEDTIME ORAL 08/08/17 21:00 09/07/17 20:59 08/12/17 20:23 Morphine Sulfate (Morphine Sulfate) 2 mg Q4H PRN IVP severe pain 7-10 08/10/17 14:30 08/17/17 14:29 Nitroglycerin (Ntg) 0.4 mg Q5M X 3 DOSES PRN SL Prn Chest Pain 08/06/17 15:00 09/05/17 14:59 Ondansetron HCl (Zofran) 4 mg Q6H PRN IVP Nausea & Vomiting 08/06/17 15:00 09/05/17 14:59 08/06/17 15:44 Polyethylene Glycol (Miralax) 17 gm HSPRN PRN ORAL Constipation 08/06/17 15:00 09/05/17 14:59 Pregabalin (Lyrica) 50 mg BID ORAL 08/08/17 18:00 09/07/17 17:59 08/13/17 08:45 VANESSA SAGASTUME Aug 13, 2017 15:50
[2017-08-13 15:51] VITALS: BP 137/70
--- NOTE | 2017-08-13 17:28 | Internal Med Progress Note ---
Subjective Date of Service: Aug 13, 2017 Physician Name Christos Jacobsen Attending Physician Aries Hardin MD Current Medications Medications (Trade) Dose Ordered Sig/Lizbeth Route PRN Reason Start Time Stop Time Status Last Admin Dose Admin Acetaminophen (Tylenol) 650 mg Q4H PRN ORAL fever 08/06/17 15:00 09/05/17 14:59 Acetaminophen/ Hydrocodone Bitart ([place] 5/325) 1 tab Q4H PRN ORAL Moderate Pain (Pain Scale 4-6) 08/10/17 14:30 08/17/17 14:29 08/10/17 15:32 Amlodipine Besylate (Norvasc) 10 mg DAILY ORAL 08/13/17 09:00 09/12/17 08:59 08/13/17 08:45 Cetylpyridinium Chloride (Cepacol) 1 lozg Q2H PRN DC SORE THROAT 08/10/17 14:30 09/09/17 14:29 Dextrose (Dextrose 50%) STAT PRN IV Hypoglycemia 08/07/17 05:45 09/06/17 05:44 08/12/17 19:40 Guaifenesin/ Codeine Phosphate (Robitussin with codeine) 10 ml Q6H PRN ORAL For Cough 08/12/17 14:30 09/11/17 14:29 08/12/17 18:14 Heparin Sodium (Porcine) (Heparin 5000 units/ml) 5,000 units EVERY 12 HOURS SUBQ 08/06/17 21:00 09/05/17 20:59 08/11/17 08:55 Insulin Aspart (NovoLOG) BEFORE MEALS AND HS SUBQ 08/06/17 16:30 09/05/17 16:29 08/13/17 12:27 Insulin Aspart (NovoLOG) 8 units NOVOTIAC SUBQ 08/10/17 16:50 09/09/17 16:49 08/13/17 12:27 Insulin Detemir (Levemir) 12 units BID SUBQ 08/10/17 18:00 09/06/17 08:59 08/13/17 08:52 Lansoprazole (Prevacid) 30 mg BID ORAL 08/08/17 18:00 09/07/17 17:59 08/13/17 08:45 Levofloxacin (Levaquin) 500 mg Q24H ORAL 2/27/18 15:15 08/20/17 15:14 08/13/17 15:54 Losartan Potassium (Cozaar) 50 mg EVERY 12 HOURS ORAL 08/12/17 12:00 09/11/17 11:59 08/13/17 08:44 Metoprolol Tartrate (Lopressor) 12.5 mg Q12HR ORAL 08/09/17 21:00 09/08/17 20:59 08/13/17 08:58 Mirtazapine (Remeron) 7.5 mg BEDTIME ORAL 08/08/17 21:00 09/07/17 20:59 08/12/17 20:23 Morphine Sulfate (Morphine Sulfate) 2 mg Q4H PRN IVP severe pain 7-10 08/10/17 14:30 08/17/17 14:29 Nitroglycerin (Ntg) 0.4 mg Q5M X 3 DOSES PRN SL Prn Chest Pain 08/06/17 15:00 09/05/17 14:59 Ondansetron HCl (Zofran) 4 mg Q6H PRN IVP Nausea & Vomiting 08/06/17 15:00 09/05/17 14:59 08/06/17 15:44 Polyethylene Glycol (Miralax) 17 gm HSPRN PRN ORAL Constipation 08/06/17 15:00 09/05/17 14:59 Pregabalin (Lyrica) 50 mg BID ORAL 08/08/17 18:00 09/07/17 17:59 08/13/17 08:45 Allergies: Coded Allergies: No Known Allergies (Unverified , 04/24/14) ROS Limited/Unobtainable: No Constitutional: Reports: no symptoms HEENT: Reports: no symptoms Cardiovascular: Reports: no symptoms Respiratory: Reports: no symptoms Gastrointestinal/Abdominal: Reports: no symptoms Genitourinary: Reports: no symptoms Subjective 46 YO F admitted with nausea, vomiting and hyperglycemia due to malfunction of insulin pump. Accucheck improved 92-104. Cover for Int Med-Dr Hardin. Await discharge home. Objective Last Vital Signs Date Time Temp Pulse Resp B/P (MAP) Pulse Ox O2 Delivery O2 Flow Rate FiO2 08/13/17 15:51 98.3 82 23 137/70 99 Room Air 98.3 08/13/17 07:53 21 Laboratory Tests Test 2/27/18 05:35 White Blood Count 4.6 K/UL (4.8-10.8) L Red Blood Count 3.40 M/UL (4.20-5.40) L Hemoglobin 10.4 G/DL (12.0-16.0) L Hematocrit 31.7 % (37.0-47.0) L Mean Corpuscular Volume 93 FL (80-99) Mean Corpuscular Hemoglobin 30.7 PG (27.0-31.0) Mean Corpuscular Hemoglobin Concent 32.9 G/DL (32.0-36.0) Red Cell Distribution Width 13.8 % (11.6-14.8) Platelet Count 175 K/UL (150-450) Mean Platelet Volume 7.0 FL (6.5-10.1) Neutrophils (%) (Auto) 48.5 % (45.0-75.0) Lymphocytes (%) (Auto) 40.1 % (20.0-45.0) Monocytes (%) (Auto) 9.0 % (1.0-10.0) Eosinophils (%) (Auto) 1.4 % (0.0-3.0) Basophils (%) (Auto) 1.0 % (0.0-2.0) Sodium Level 140 MMOL/L (136-145) Potassium Level 4.1 MMOL/L (3.5-5.1) Chloride Level 102 MMOL/L (98-107) Carbon Dioxide Level 36 MMOL/L (21-32) H Anion Gap 2 mmol/L (5-15) L Blood Urea Nitrogen 17 mg/dL (7-18) Creatinine 0.9 MG/DL (0.55-1.30) Estimat Glomerular Filtration Rate > 60 mL/min (>60) Glucose Level 141 MG/DL (74-106) H Calcium Level 8.8 MG/DL (8.5-10.1) Intake and Output 08/12/17 08/13/17 19:00 07:00 Intake Total 940 ml 400 ml Balance 940 ml 400 ml Intake Oral 840 ml IV Total 100 ml 400 ml # Voids 3 3 # Bowel Movements 1 Objective General Appearance: WD/WN, alert, mild distress EENT: PERRL/EOMI, normal ENT inspection Neck: non-tender, normal alignment, supple, normal inspection Cardiovascular: normal peripheral pulses, normal rate, regular rhythm, no gallop/murmur, no JVD Respiratory/Chest: chest wall non-tender, lungs clear, normal breath sounds, no respiratory distress, no accessory muscle use Abdomen: normal bowel sounds, non tender, soft, no organomegaly, no mass Extremities: normal range of motion, non-tender 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 Cont norm saline IV fluids. (2) Intractable nausea and vomiting Assessment & Plan: Resolved. continue zofran (3) Hyperglycemia Assessment & Plan: Due to malfunction of insulin pump. D/C insulin pump per endocrinology. Start levemir and novolog sliding scale. (4) ARF (acute renal failure) (5) Diabetic ketoacidosis, type I Assessment & Plan: Uncontrolled. Accucheck stable. See endocrinology note. (6) Diabetes mellitus type 1, uncontrolled, insulin dependent Assessment & Plan: See endocrinology note. (7) HTN (hypertension) Assessment & Plan: stable (8) Diabetic nephropathy (9) Renal failure Assessment & Plan: Due to dehydration due to DKA. see nephrology note. (10) Cough Assessment & Plan: await chest xray. Continue levaquin Assessment/Plan Discharge home today CHRISTOS JACOBSEN Aug 13, 2017 17:28
--- NOTE | 2017-08-13 18:08 | General Progress Note ---
Assessment/Plan Problem List: (1) Hypotension ICD Codes: I95.9 - Hypotension, unspecified SNOMED: 60073753, 638135829 (2) Hyperglycemia ICD Codes: R73.9 - Hyperglycemia, unspecified SNOMED: 58982133 (3) Anemia ICD Codes: D64.9 - Anemia, unspecified SNOMED: 985453540 (4) GERD (gastroesophageal reflux disease) ICD Codes: K21.9 - Gastro-esophageal reflux disease without esophagitis SNOMED: 624363380 (5) Diabetes mellitus type 1, uncontrolled, insulin dependent ICD Codes: E10.65 - Type 1 diabetes mellitus with hyperglycemia SNOMED: 89203459, 977997647 (6) Major depression Assessment & Plan: Assessment/Plan mdd remeron 7.5 mg qhs ICD Codes: F32.9 - Major depressive disorder, single episode, unspecified SNOMED: 550583263 (7) Renal insufficiency ICD Codes: N28.9 - Disorder of kidney and ureter, unspecified SNOMED: 995963082, 845496855 (8) Encephalopathy ICD Codes: G93.40 - Encephalopathy, unspecified SNOMED: 11396955, 620441219 (9) HTN (hypertension) ICD Codes: I10 - HTN (hypertension) SNOMED: 91343901 (10) Uncontrolled diabetes mellitus ICD Codes: E11.65 - Type 2 diabetes mellitus with hyperglycemia SNOMED: 49900852, 164114269 (11) Hyponatremia ICD Codes: E87.1 - Hypo-osmolality and hyponatremia SNOMED: 95573965 (12) Renal failure ICD Codes: N19 - Unspecified kidney failure SNOMED: 23157998 (13) Diabetic nephropathy ICD Codes: E11.21 - Type 2 diabetes mellitus with diabetic nephropathy SNOMED: 38433826, 623014573 (14) Intractable nausea and vomiting ICD Codes: R11.2 - Nausea with vomiting, unspecified SNOMED: 684668620, 629746983 (15) Esophagitis ICD Codes: K20.9 - Esophagitis, unspecified SNOMED: 90120064 (16) Constipation ICD Codes: K59.00 - Constipation, unspecified SNOMED: 23562027 (17) Dehydration ICD Codes: E86.0 - Dehydration SNOMED: 84238293 (18) Hyperkalemia ICD Codes: E87.5 - Hyperkalemia SNOMED: 50024853 (19) Anemia ICD Codes: D64.9 - Anemia, unspecified SNOMED: 728907577 (20) Dysphagia ICD Codes: R13.10 - Dysphagia, unspecified SNOMED: 67429670, 951339867 (21) Depression ICD Codes: F32.9 - Major depressive disorder, single episode, unspecified SNOMED: 41349245 (22) Diabetes ICD Codes: E11.9 - Type 2 diabetes mellitus without complications SNOMED: 12662016 (23) Diabetic ketoacidosis, type I ICD Codes: E10.10 - Ketoacidosis in patient with type 1 diabetes mellitus SNOMED: 310621094 (24) DKA (diabetic ketoacidoses) ICD Codes: E13.10 - Other specified diabetes mellitus with ketoacidosis without coma SNOMED: 87560424, 752719936 (25) Diarrhea ICD Codes: R19.7 - Diarrhea, unspecified SNOMED: 23260469 (26) Diarrhea ICD Codes: R19.7 - Diarrhea, unspecified SNOMED: 82658418 (27) SOB (shortness of breath) ICD Codes: R06.02 - Shortness of breath SNOMED: 858342728 (28) Gastritis ICD Codes: K29.70 - Gastritis, unspecified, without bleeding SNOMED: 1006038 (29) Pancreatitis ICD Codes: K85.90 - Acute pancreatitis without necrosis or infection, unspecified SNOMED: 45187303 (30) Hypophosphatemia ICD Codes: E83.39 - Hypophosphatemia SNOMED: 7755219 (31) Hypophosphatemia ICD Codes: E83.39 - Other disorders of phosphorus metabolism SNOMED: 7460128 (32) Esophageal ulcer ICD Codes: K22.10 - Esophageal ulcer SNOMED: 24576670 (33) Hyperosmolar coma ICD Codes: E11.01 - Diabetes mellitus with hyperosmolar coma SNOMED: 67168246 (34) Epigastric pain ICD Codes: R10.13 - Epigastric pain SNOMED: 22391631 (35) Hypoalbuminemia ICD Codes: E88.09 - Other disorders of plasma-protein metabolism, not elsewhere classified SNOMED: 876830957 (36) UTI (urinary tract infection) ICD Codes: N39.0 - Urinary tract infection, site not specified SNOMED: 19666741 (37) Chest pain ICD Codes: R07.9 - Chest pain SNOMED: 95645608 (38) Chest pain ICD Codes: R07.9 - Chest pain SNOMED: 07979200 (39) Hypertension ICD Codes: I10 - Essential (primary) hypertension SNOMED: 00859740 (40) Diabetic gastroparesis ICD Codes: E11.43 - Diabetic gastroparesis SNOMED: 12883782 (41) Britney esophagitis ICD Codes: B37.81 - Candidiasis of esophagus SNOMED: 31411460 (42) Acidosis, metabolic ICD Codes: E87.2 - Acidosis SNOMED: 79580372 (43) DKA (diabetic ketoacidosis) ICD Codes: E13.10 - Other specified diabetes mellitus with ketoacidosis without coma SNOMED: 94227391, 101141036 (44) Nausea & vomiting ICD Codes: R11.2 - Nausea with vomiting, unspecified SNOMED: 63346475 (45) Esophageal ulcer without bleeding ICD Codes: K22.10 - Esophageal ulcer without bleeding SNOMED: 57686810 (46) Non-compliance with treatment ICD Codes: Z91.19 - Non-compliance with treatment SNOMED: 7033974 (47) CKD (chronic kidney disease) ICD Codes: N18.9 - Chronic kidney disease, unspecified SNOMED: 709315487 (48) Diabetes type 1, uncontrolled ICD Codes: E10.65 - Type 1 diabetes mellitus with hyperglycemia SNOMED: 047714775, 946052474 (49) Hypertensive emergency ICD Codes: I16.1 - Hypertensive emergency SNOMED: 575026894882521 (50) esophageal u (51) Diabetic ketoacidosis, type I ICD Codes: E10.10 - Type 1 diabetes mellituswith ketoacidosis without coma SNOMED: 335850004 (52) Vomiting ICD Codes: R11.10 - Vomiting, unspecified SNOMED: 990564999 (53) ARF (acute renal failure) ICD Codes: N17.9 - ARF (acute renal failure) SNOMED: 65618935 (54) Urinary retention ICD Codes: R33.9 - Urinary retention SNOMED: 484293912 (55) Oral candidiasis ICD Codes: B37.0 - Oral candidiasis SNOMED: 06015540 Assessment/Plan Assessment/Plan Status: stable, progressing Assessment/Plan mdd remeron 7.5 mg qhs Subjective Date patient seen: Aug 13, 2017 Neurologic/Psychiatric: Reports: anxiety, depressed, emotional problems Allergies: Coded Allergies: No Known Allergies (Unverified , 04/24/14) Objective Last 24 Hour Vital Signs Date Time Temp Pulse Resp B/P (MAP) Pulse Ox O2 Delivery O2 Flow Rate FiO2 08/13/17 15:51 98.3 82 23 137/70 99 Room Air 98.3 08/13/17 12:00 97.6 83 20 133/82 96 Room Air 97.6 08/13/17 08:58 94 172/97 08/13/17 08:45 94 172/97 08/13/17 08:44 172/94 08/13/17 08:00 97.8 86 20 172/97 94 97.8 08/13/17 07:53 82 18 Room Air 21 08/13/17 04:00 97.6 73 20 128/60 95 97.6 08/13/17 00:00 97.3 80 18 153/80 96 97.3 08/12/17 20:23 165/94 08/12/17 20:23 91 165/94 08/12/17 20:00 97.3 91 18 165/94 96 97.3 08/12/17 19:11 97 18 Room Air 21 Intake and Output 08/12/17 08/13/17 19:00 07:00 Intake Total 940 ml 400 ml Balance 940 ml 400 ml Intake Oral 840 ml IV Total 100 ml 400 ml # Voids 3 3 # Bowel Movements 1 Laboratory Tests 08/13/17 05:35: White Blood Count 4.6L, Red Blood Count 3.40L, Hemoglobin 10.4L, Hematocrit 31.7L, Mean Corpuscular Volume 93, Mean Corpuscular Hemoglobin 30.7, Mean Corpuscular Hemoglobin Concent 32.9, Red Cell Distribution Width 13.8, Platelet Count 175, Mean Platelet Volume 7.0, Neutrophils (%) (Auto) 48.5, Lymphocytes (% ) (Auto) 40.1, Monocytes (%) (Auto) 9.0, Eosinophils (%) (Auto) 1.4, Basophils ( %) (Auto) 1.0, Sodium Level 140, Potassium Level 4.1, Chloride Level 102, Carbon Dioxide Level 36H, Anion Gap 2L, Blood Urea Nitrogen 17, Creatinine 0.9, Estimat Glomerular Filtration Rate > 60, Glucose Level 141H, Calcium Level 8.8 Height (Feet): 5 Height (Inches): 1.00 Weight (Pounds): 110 General Appearance: no apparent distress, alert Neurologic: alert, oriented x 3, responsive, depressed affect Elisha Hardy M.D. Aug 13, 2017 18:08
--- NOTE | 2017-08-13 18:12 | Psych Consult Progress Note ---
Psych Consult Progress Note Consult 08/11/17 Vital Signs Last 24 Hour Vital Signs Date Time Temp Pulse Resp B/P (MAP) Pulse Ox O2 Delivery O2 Flow Rate FiO2 08/13/17 15:51 98.3 82 23 137/70 99 Room Air 98.3 08/13/17 12:00 97.6 83 20 133/82 96 Room Air 97.6 08/13/17 08:58 94 172/97 08/13/17 08:45 94 172/97 08/13/17 08:44 172/94 08/13/17 08:00 97.8 86 20 172/97 94 97.8 08/13/17 07:53 82 18 Room Air 21 08/13/17 04:00 97.6 73 20 128/60 95 97.6 08/13/17 00:00 97.3 80 18 153/80 96 97.3 08/12/17 20:23 165/94 08/12/17 20:23 91 165/94 08/12/17 20:00 97.3 91 18 165/94 96 97.3 08/12/17 19:11 97 18 Room Air 21 Labs Laboratory Tests Test 08/13/17 05:35 White Blood Count 4.6 K/UL (4.8-10.8) L Red Blood Count 3.40 M/UL (4.20-5.40) L Hemoglobin 10.4 G/DL (12.0-16.0) L Hematocrit 31.7 % (37.0-47.0) L Mean Corpuscular Volume 93 FL (80-99) Mean Corpuscular Hemoglobin 30.7 PG (27.0-31.0) Mean Corpuscular Hemoglobin Concent 32.9 G/DL (32.0-36.0) Red Cell Distribution Width 13.8 % (11.6-14.8) Platelet Count 175 K/UL (150-450) Mean Platelet Volume 7.0 FL (6.5-10.1) Neutrophils (%) (Auto) 48.5 % (45.0-75.0) Lymphocytes (%) (Auto) 40.1 % (20.0-45.0) Monocytes (%) (Auto) 9.0 % (1.0-10.0) Eosinophils (%) (Auto) 1.4 % (0.0-3.0) Basophils (%) (Auto) 1.0 % (0.0-2.0) Sodium Level 140 MMOL/L (136-145) Potassium Level 4.1 MMOL/L (3.5-5.1) Chloride Level 102 MMOL/L (98-107) Carbon Dioxide Level 36 MMOL/L (21-32) H Anion Gap 2 mmol/L (5-15) L Blood Urea Nitrogen 17 mg/dL (7-18) Creatinine 0.9 MG/DL (0.55-1.30) Estimat Glomerular Filtration Rate > 60 mL/min (>60) Glucose Level 141 MG/DL (74-106) H Calcium Level 8.8 MG/DL (8.5-10.1) Medications Current Medications Medications (Trade) Dose Ordered Sig/Lizbeth Route PRN Reason Start Time Stop Time Status Last Admin Dose Admin Acetaminophen (Tylenol) 650 mg Q4H PRN ORAL fever 08/06/17 15:00 09/05/17 14:59 Acetaminophen/ Hydrocodone Bitart ([place] 5/325) 1 tab Q4H PRN ORAL Moderate Pain (Pain Scale 4-6) 08/10/17 14:30 08/17/17 14:29 08/10/17 15:32 Amlodipine Besylate (Norvasc) 10 mg DAILY ORAL 08/13/17 09:00 09/12/17 08:59 08/13/17 08:45 Cetylpyridinium Chloride (Cepacol) 1 lozg Q2H PRN DC SORE THROAT 08/10/17 14:30 09/09/17 14:29 Dextrose (Dextrose 50%) STAT PRN IV Hypoglycemia 08/07/17 05:45 09/06/17 05:44 08/12/17 19:40 Guaifenesin/ Codeine Phosphate (Robitussin with codeine) 10 ml Q6H PRN ORAL For Cough 08/12/17 14:30 09/11/17 14:29 08/12/17 18:14 Heparin Sodium (Porcine) (Heparin 5000 units/ml) 5,000 units EVERY 12 HOURS SUBQ 08/06/17 21:00 09/05/17 20:59 08/11/17 08:55 Insulin Aspart (NovoLOG) BEFORE MEALS AND HS SUBQ 08/06/17 16:30 09/05/17 16:29 08/13/17 12:27 Insulin Aspart (NovoLOG) 8 units NOVOTIAC SUBQ 08/10/17 16:50 09/09/17 16:49 08/13/17 17:33 Insulin Detemir (Levemir) 12 units BID SUBQ 08/10/17 18:00 09/06/17 08:59 08/13/17 08:52 Lansoprazole (Prevacid) 30 mg BID ORAL 08/08/17 18:00 09/07/17 17:59 08/13/17 17:39 Levofloxacin (Levaquin) 500 mg Q24H ORAL 08/13/17 15:15 08/20/17 15:14 08/13/17 15:54 Losartan Potassium (Cozaar) 50 mg EVERY 12 HOURS ORAL 08/12/17 12:00 09/11/17 11:59 08/13/17 08:44 Metoprolol Tartrate (Lopressor) 12.5 mg Q12HR ORAL 08/09/17 21:00 09/08/17 20:59 08/13/17 08:58 Mirtazapine (Remeron) 7.5 mg BEDTIME ORAL 08/08/17 21:00 09/07/17 20:59 08/12/17 20:23 Morphine Sulfate (Morphine Sulfate) 2 mg Q4H PRN IVP severe pain 7-10 08/10/17 14:30 08/17/17 14:29 Nitroglycerin (Ntg) 0.4 mg Q5M X 3 DOSES PRN SL Prn Chest Pain 08/06/17 15:00 09/05/17 14:59 Ondansetron HCl (Zofran) 4 mg Q6H PRN IVP Nausea & Vomiting 08/06/17 15:00 09/05/17 14:59 08/06/17 15:44 Polyethylene Glycol (Miralax) 17 gm HSPRN PRN ORAL Constipation 08/06/17 15:00 09/05/17 14:59 Pregabalin (Lyrica) 50 mg BID ORAL 08/08/17 18:00 09/07/17 17:59 08/13/17 17:39 Problems: (1) Hypotension Status: Acute (2) Hyperglycemia (3) Anemia Status: Acute (4) GERD (gastroesophageal reflux disease) (5) Diabetes mellitus type 1, uncontrolled, insulin dependent (6) Major depression Status: Chronic Assessment & Plan: Assessment/Plan mdd remeron 7.5 mg qhs (7) Renal insufficiency (8) Encephalopathy (9) HTN (hypertension) Status: Acute (10) Uncontrolled diabetes mellitus (11) Hyponatremia (12) Renal failure Status: Acute (13) Diabetic nephropathy (14) Intractable nausea and vomiting Status: Acute (15) Esophagitis (16) Constipation (17) Dehydration Status: Acute (18) Hyperkalemia (19) Anemia (20) Dysphagia Status: Acute (21) Depression (22) Diabetes Status: Acute (23) Diabetic ketoacidosis, type I Status: Acute (24) DKA (diabetic ketoacidoses) (25) Diarrhea Status: Acute (26) Diarrhea Status: Acute (27) SOB (shortness of breath) Status: Acute (28) Gastritis (29) Pancreatitis (30) Hypophosphatemia Status: Acute (31) Hypophosphatemia (32) Esophageal ulcer Status: Acute (33) Hyperosmolar coma Status: Acute (34) Epigastric pain Status: Acute (35) Hypoalbuminemia (36) UTI (urinary tract infection) (37) Chest pain Status: Acute (38) Chest pain Status: Acute (39) Hypertension (40) Diabetic gastroparesis Status: Acute (41) Britney esophagitis Status: Acute (42) Acidosis, metabolic (43) DKA (diabetic ketoacidosis) (44) Nausea & vomiting (45) Esophageal ulcer without bleeding Status: Acute (46) Non-compliance with treatment Status: Acute (47) CKD (chronic kidney disease) (48) Diabetes type 1, uncontrolled Status: Acute (49) Hypertensive emergency (50) esophageal u Status: Acute (51) Diabetic ketoacidosis, type I Status: Acute (52) Vomiting Status: Acute (53) ARF (acute renal failure) Status: Acute (54) Urinary retention Status: Acute (55) Oral candidiasis Status: Acute Elisha Hardy M.D. Aug 13, 2017 18:12
[2017-08-13] MEDS ORDERED: NS 275ml ONE (19:03)
[2017-08-13] MEDS ORDERED: Tubing IV Secondary IV ONE (19:03)
--- NOTE | 2017-08-15 13:30 | Discharge Summary ---
Discharge Summary Hospital Course Date of Admission Aug 06, 2017 at 12:48 Date of Discharge Aug 13, 2017 at 19:04 Admitting Diagnosis -nausea/vomiting/ARF-xferable HPI Tricia Carpio is a 46 year old female who was admitted on Aug 06, 2017 at 12 :48 for Nausea,Vomiting,Acute Renal Failure Hospital Course [id number] Discharge Discharge Disposition Patient was discharged to Home with Home Health(06) Discharge Diagnoses: Estela Anthony NP Aug 15, 2017 13:30
--- NOTE | 2017-08-16 08:00 | Discharge Summary 2 SIG ---
DATE OF ADMISSION: 08/06/2017 DATE OF DISCHARGE: 08/13/2017 CONSULTANTS: 1. Elisha Hardy M.D. 2. Chapin Paredes M.D. 3. Adriano Styles M.D. 4. Judd Hayes M.D. BRIEF HOSPITAL COURSE: The patient is a 46-year-old female with history of type 1 diabetes, who presented with chief complaint of nausea, vomiting, and hyperglycemia. Symptoms began approximately one and a half day prior to admission where the patient stated that her insulin pump was not working and blood sugars had been running high for the past day and a half. She then experienced nausea with vomiting. She presented to [facility] where initial blood sugar in the emergency was 361. She was admitted for hyperglycemia to rule out diabetic ketoacidosis. She has medical history significant for type 1 diabetes mellitus, hypertension, GERD, diabetic nephropathy, and history of pancreatitis. She was seen by nonfarm animal caretaker. The patient came in with an insulin pump that was nonfunctional. Insulin pump was turned off and the patient was given Levemir and NovoLog regimen SQ. She had elevated creatinine level, probably acute renal failure with underlying diabetic kidney disease. She was given IV hydration. She had elevated blood pressure and antihypertensives were titrated. She was placed on clonidine-TTS patch. She was diagnosed with depression and was given Remeron. Blood glucose checks improved. Visto was contacted for outpatient sensor for the insulin pump. She was eventually restarted back on insulin pump and was given Levemir 12 units b.i.d. with NovoLog 8 units before meals t.i.d. together with insulin sliding scale. She was tolerating diet well. Creatinine improved. She was eventually discharged home with home health. FINAL DIAGNOSES: 1. Intractable nausea and vomiting secondary to hyperglycemia due to diabetic ketoacidosis, type 1, uncontrolled. 2. Diabetes type 1, out of control. 3. Hypertension. 4. Acute renal failure. 5. Diabetic nephropathy. 6. Hypertension. 7. Hyperglycemia. 8. Intractable nausea and vomiting. 9. Cough. 10. Major depressive disorder. 11. Hyponatremia. 12. Encephalopathy. 13. GERD. DISPOSITION: The patient was discharged home with home health. DISCHARGE MEDICATIONS: Refer to medication list. DISCHARGE INSTRUCTIONS: Follow up with Dr. Hayes as an outpatient for outpatient sensor of insulin pump. Anastacio Wright M.D. I have been assigned to dictate discharge summary on this account and I was not involved in the patient's management. Estela Anthony N.P. DR: FLORIDALMA JOB#: [id number] CC: KRISTY
== END 2017-08-13 19:04 | disposition home health service (06) | DRG 919 ==
LOC: EMR 09:56 → EDBEDREQ 12:12 → 4E 12:48 → EDBEDREQ 13:15
DX: T85.614A Breakdown (mechanical) of insulin pump, initial encounter (principal); G93.40 Encephalopathy, unspecified; E10.10 Type 1 diabetes mellitus with ketoacidosis without coma; N17.9 Acute kidney failure, unspecified; E87.1 Hypo-osmolality and hyponatremia; E10.22 Type 1 diabetes mellitus with diabetic chronic kidney disease; T38.3X6A Underdosing of insulin and oral hypoglycemic [antidiabetic] drugs, initial encounter; Y84.8 Other medical procedures as the cause of abnormal reaction of the patient, or of later complication, without mention of misadventure at the time of the procedure; I12.9 Hypertensive chronic kidney disease with stage 1 through stage 4 chronic kidney disease, or unspecified chronic kidney disease; N18.9 Chronic kidney disease, unspecified; K21.9 Gastro-esophageal reflux disease without esophagitis; F32.9 Major depressive disorder, single episode, unspecified; G47.00 Insomnia, unspecified; D64.9 Anemia, unspecified
CPT/HCPCS: 36415; 36600; 71045; 71046; 80048; 80053; 80061; 80307; 81001; 81003; 81025; 82009; 82248; 82533; 82607; 82728; 82746; 82803; 82947; 82962; 82977; 83036; 83540; 83550; 83690; 83735; 83880; 84100; 84300; 84443; 84550; 85007; 85025; 86140; 86710; 87086; 93005; 94640; 94664; 99285; J1815; J2405; J7620; S5561

== ENCOUNTER 2017-09-05 07:30 | Emergency (ER) | payer OTHER ==
[~2017-09-05] VITALS: Ht 162.6 cm; Wt 63.5 kg
[2017-09-05 07:33] VITALS: BP 149/85
[2017-09-05] MEDS ORDERED: Sodium Chloride 500ML 500 ML IV ONE (07:37)
[2017-09-05] MEDS ORDERED: LEVEMIR FL100 UNIT/1 SUBQ (08:10)
--- NOTE | 2017-09-05 08:13 | Emergency Room Report ---
History of Present Illness General Chief Complaint: Altered Level of Consciousness Source: Patient, EMS Present Illness HPI Patient was brought in by paramedics for altered mental status Upon arrival she was found to be hypoglycemic After several rounds of glucagon Patient has improved up to 84 glucose Denies any headache denies any chest pain or shortness of breath Denies any change with medications Denies any recent fall or trauma Patient has had several visits to the ER with difficulty and showing her blood glucose Allergies: Coded Allergies: No Known Allergies (Unverified , 04/24/14) Patient History Past Medical History: see triage record Past Surgical History: none Pertinent Family History: none Last Menstrual Period: last month Reviewed Nursing Documentation: PMH: Agreed; PSxH: Agreed Nursing Documentation-PMH Past Medical History: No History, Except For Hx Cardiac Problems: Yes Hx Hypertension: Yes Hx Pacemaker: No Hx Diabetes: Yes Hx Cancer: No Hx Gastrointestinal Problems: No Hx Neurological Problems: No Hx Concentration Difficulty: No Review of Systems All Other Systems: negative except mentioned in HPI Physical Exam Vital Signs Date Time Temp Pulse Resp B/P (MAP) Pulse Ox O2 Delivery O2 Flow Rate FiO2 09/05/17 07:23 98.6 91 20 167/86 99 Room Air 98.6 Sp02 EP Interpretation: reviewed, normal General Appearance: well appearing, no apparent distress Head: normocephalic, atraumatic Eyes: bilateral eye PERRL, bilateral eye EOMI ENT: hearing grossly normal, normal pharynx, uvula midline Neck: full range of motion, supple, no meningismus, no bony tend Respiratory: lungs clear, normal breath sounds, no rhonchi, no respiratory distress, no retraction, no accessory muscle use Cardiovascular #1: normal peripheral pulses, regular rate, rhythm, no edema, no gallop, no JVD, no murmur Gastrointestinal: normal bowel sounds, non tender, soft, no organomegaly, non- distended, no guarding, no hernia, no pulsatile mass, no rebound Genitourinary: no CVA tenderness Musculoskeletal: normal inspection Neurologic: oriented x3, responsive, fibrous wallboard inspector III-XII nml as tested, motor strength/ tone normal, sensory intact Skin: normal color, no rash, warm/dry, palpation normal Lymphatic: normal inspection, no adenopathy Medical Decision Making Diagnostic Impression: Primary Impression: Hypoglycemia ER Course And the patient's history exam and presentation multiple differentials considered Patient's complex requiring blood work and imaging study Patient's glucose is starting to improve Patient is awake and alert She reports that she thinks she did not eat the right amount of food last night only had crackers and soup At this time it is recommended for the patient to be admitted in her labile glucose With a danger of possible hypoglycemic episode leading to altered mental status and possible Further stabilization required however patient is awake alert family is at bedside and patient is choosing to leave AGAINST MEDICAL ADVICE Labs Test 09/05/17 08:00 09/05/17 08:13 White Blood Count 4.0 K/UL (4.8-10.8) Red Blood Count 4.68 M/UL (4.20-5.40) Hemoglobin 14.0 G/DL (12.0-16.0) Hematocrit 44.6 % (37.0-47.0) Mean Corpuscular Volume 95 FL (80-99) Mean Corpuscular Hemoglobin 29.9 PG (27.0-31.0) Mean Corpuscular Hemoglobin Concent 31.4 G/DL (32.0-36.0) Red Cell Distribution Width 14.7 % (11.6-14.8) Platelet Count 340 K/UL (150-450) Mean Platelet Volume 7.6 FL (6.5-10.1) Neutrophils (%) (Auto) 47.9 % (45.0-75.0) Lymphocytes (%) (Auto) 44.4 % (20.0-45.0) Monocytes (%) (Auto) 3.9 % (1.0-10.0) Eosinophils (%) (Auto) 2.4 % (0.0-3.0) Basophils (%) (Auto) 1.4 % (0.0-2.0) Sodium Level 144 MMOL/L (136-145) Potassium Level 4.8 MMOL/L (3.5-5.1) Chloride Level 105 MMOL/L (98-107) Carbon Dioxide Level 32 MMOL/L (21-32) Anion Gap 8 mmol/L (5-15) Blood Urea Nitrogen 18 mg/dL (7-18) Creatinine 0.9 MG/DL (0.55-1.30) Estimat Glomerular Filtration Rate > 60 mL/min (>60) Glucose Level 116 MG/DL (74-106) Calcium Level 9.0 MG/DL (8.5-10.1) Total Bilirubin 0.6 MG/DL (0.2-1.0) Aspartate Amino Transf (AST/SGOT) 49 U/L (15-37) Alanine Aminotransferase (ALT/SGPT) 43 U/L (12-78) Alkaline Phosphatase 104 U/L (46-116) Total Creatine Kinase 108 U/L (26-308) Creatine Kinase MB 0.7 NG/ML (0.0-3.6) Creatine Kinase MB Relative Index 0.6 Total Protein 8.4 G/DL (6.4-8.2) Albumin 3.4 G/DL (3.4-5.0) Globulin 5.0 g/dL Albumin/Globulin Ratio 0.7 (1.0-2.7) Lipase 147 U/L (73-393) Urine Color Pale yellow Urine Appearance Clear Urine pH 8 (4.5-8.0) Urine Specific [place] 1.015 (1.005-1.035) Urine Protein 3+ (NEGATIVE) Urine Glucose (UA) 1+ (NEGATIVE) Urine Ketones Negative (NEGATIVE) Urine Occult Blood 1+ (NEGATIVE) Urine Nitrite Negative (NEGATIVE) Urine Bilirubin Negative (NEGATIVE) Urine Urobilinogen Normal MG/DL (0.0-1.0) Urine Leukocyte Esterase 1+ (NEGATIVE) Urine RBC 0-2 /HPF (0 - 2) Urine WBC 2-4 /HPF (0 - 2) Urine Squamous Epithelial Cells Few /LPF (NONE/OCC) Urine Bacteria Few /HPF (NONE) Urine Opiates Screen Negative (NEGATIVE) Urine Barbiturates Screen Negative (NEGATIVE) Phencyclidine (PCP) Screen Negative (NEGATIVE) Urine Amphetamines Screen Negative (NEGATIVE) Urine Benzodiazepines Screen Negative (NEGATIVE) Urine Cocaine Screen Negative (NEGATIVE) Urine Marijuana (THC) Screen Negative (NEGATIVE) Rhythm Strip Diag. Results EP Interpretation: yes Rate: 92 Rhythm: NSR, no PVC's, no ectopy Chest X-Ray Diagnostic Results Chest X-Ray Diagnostic Results : Chest X-Ray Ordered: Yes # of Views/Limited/Complete: 1 View Indication: Chest Pain EP Interpretation: Yes Interpretation: no consolidation, no effusion, no pneumothorax Impression: No acute disease PA Scribe Text Ali Groverehdor, DO Last Vital Signs Date Time Temp Pulse Resp B/P (MAP) Pulse Ox O2 Delivery O2 Flow Rate FiO2 3/22/18 07:23 98.6 91 20 167/86 99 Room Air 98.6 Status: improved Disposition: AGAINST MEDICAL ADVICE Condition: Improved Referrals: Aries Hardin MD (PCP) Rosmery Muñoz DO Sep 05, 2017 08:13
[2017-09-05 08:22] LABS: BASOPHILS % (AUTO) 1.4 % (0.0-2.0); EOSINOPHILS % (AUTO) 2.4 % (0.0-3.0); HEMATOCRIT 44.6 % (37.0-47.0); LYMPHOCYTES % (AUTO) 44.4 % (20.0-45.0); MEAN CORPUSCULAR VOLUME 95 FL (80-99); MONOCYTES % (AUTO) 3.9 % (1.0-10.0); NEUTROPHILS % (AUTO) 47.9 % (45.0-75.0); PLATELET COUNT 340 K/UL (150-450); RED BLOOD COUNT 4.68 M/UL (4.20-5.40); RED CELL DISTRIBUTION WIDTH 14.7 % (11.6-14.8)
[2017-09-05 08:31] LABS: ANION GAP 8 mmol/L (5-15); BLOOD UREA NITROGEN 18 mg/dL (7-18); CARBON DIOXIDE 32 MMOL/L (21-32); CHLORIDE 105 MMOL/L (98-107); CREATININE 0.9 MG/DL (0.55-1.30); POTASSIUM 4.8 MMOL/L (3.5-5.1); SODIUM 144 MMOL/L (136-145)
[2017-09-05 08:38] LABS: APPEARANCE,URINE CLEAR; BILIRUBIN, URINE NEGATIVE (NEGATIVE); COLOR,URINE PALE YELLOW; GLUCOSE, URINE (UA) 1+ (NEGATIVE); KETONES,URINE NEGATIVE (NEGATIVE); LEUKOCYTE ESTERASE ,URINE 1+ (NEGATIVE); NITRITE,URINE NEGATIVE (NEGATIVE); PH,URINE 8 (4.5-8.0); PROTEIN,URINE 3+ (NEGATIVE); UROBILINOGEN,URINE NORMAL MG/DL (0.0-1.0)
[2017-09-05 08:43] VITALS: BP 136/98
[2017-09-05 08:44] LABS: ALANINE AMINOTRANSFERASE 43 U/L (12-78); ALBUMIN 3.4 G/DL (3.4-5.0); ALBUMIN/GLOBULIN RATIO 0.7 (1.0-2.7); ALKALINE PHOSPHATASE 104 U/L (46-116); ASPARTATE AMINO TRANSFERASE 49 U/L (15-37); BILIRUBIN,TOTAL 0.6 MG/DL (0.2-1.0); CKMB 0.7 NG/ML (0.0-3.6); CREATINE KINASE 108 U/L (26-308)
[2017-09-05 09:25] VITALS: BP 136/98
--- NOTE | 2017-09-05 10:18 | Diagnostic Imaging Report ---
Indication: Chest pain Technique: One view of the chest Comparison: 08/12/2017 Findings: Suboptimal inspiration with bilateral basilar atelectatic changes. Equivocal mild interstitial edema is again demonstrated. Pleural spaces are clear. There is no focal airspace consolidation Impression: Hypoventilatory exam Equivocal interstitial congestive changes
== END 2017-09-05 09:51 | disposition left against medical advice (07) ==
LOC: EDBD 07:30 → EMR 07:51 → UNDOADMIN 07:56 → 4W 07:56 → EDBEDREQ 08:28 → EMR 09:51
DX: E11.649 Type 2 diabetes mellitus with hypoglycemia without coma (principal); R41.82 Altered mental status, unspecified; I10 Essential (primary) hypertension
CPT/HCPCS: 36415; 71045; 80053; 80307; 81003; 82550; 82553; 82962; 83690; 84484; 85025; 93005; 96374; 96375; 99284

== ENCOUNTER 2017-11-05 13:24 | Inpatient (IN) | payer OTHER ==
[~2017-11-05] VITALS: Ht 160 cm; Wt 59.0 kg
[2017-11-05] MEDS ORDERED: Tylenol #3 tab (300mg/30mg) ORAL ONE (14:15)
[2017-11-05] MEDS ORDERED: Ketorolac 60mg Inj IM ONE (14:15)
[2017-11-05] MEDS ORDERED: Isovue-370 150ml vial INJ PRN (14:30)
--- NOTE | 2017-11-05 14:46 | Emergency Room Report ---
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 Denies any fall or trauma Denies any focal weakness Allergies: Coded Allergies: No Known Allergies (Unverified , 04/24/14) Patient History Past Medical History: see triage record Pertinent Family History: none Last Menstrual Period: 10/02/17 Now: No Reviewed Nursing Documentation: PMH: Agreed; PSxH: Agreed Nursing Documentation-PMH Hx Cardiac Problems: Yes - Neurophathy Hx Hypertension: Yes Hx Pacemaker: No Hx Diabetes: Yes Hx Cancer: No Hx Gastrointestinal Problems: No Hx Neurological Problems: No Hx Concentration Difficulty: No Review of Systems All Other Systems: negative except mentioned in HPI Physical Exam Vital Signs Date Time Temp Pulse Resp B/P (MAP) Pulse Ox O2 Delivery O2 Flow Rate FiO2 11/05/17 13:38 97.9 112 165/88 Room Air 97.9 Sp02 EP Interpretation: reviewed, normal General Appearance: mild distress - Appears uncomfortable Head: normocephalic, atraumatic Eyes: bilateral eye PERRL, bilateral eye EOMI ENT: hearing grossly normal, normal pharynx, TMs + canals normal, uvula midline Neck: full range of motion, supple, no meningismus, no bony tend Respiratory: lungs clear, normal breath sounds, no rhonchi, no respiratory distress, no retraction, no accessory muscle use Cardiovascular #1: normal peripheral pulses, no edema, no gallop, no JVD, no murmur, tachycardia Gastrointestinal: normal bowel sounds, non tender, soft, no mass, no organomegaly, non-distended, no guarding, no hernia, no pulsatile mass, no rebound Genitourinary: no CVA tenderness Musculoskeletal: normal inspection Neurologic: oriented x3, responsive, client coordinator III-XII nml as tested, motor strength/ tone normal, sensory intact Psychiatric: mood/affect normal Skin: normal color, no rash, warm/dry, palpation normal Lymphatic: normal inspection, no adenopathy Medical Decision Making Diagnostic Impression: Primary Impression: Hyperglycemia Additional Impression: ARF (acute renal failure) ER Course Upon initial evaluation patient has multiple differentials considered The initial complaints were concerning for possible vascular pathology Initial blood work reveal significant elevated glucose patient's kidney function is Also abnormal compared to usual Patient receiving further hydration IV insulin requiring admission for further care Patient does not show signs of acidosis and therefore ICU admission was not warranted Labs Test 11/05/17 14:49 White Blood Count 3.2 K/UL (4.8-10.8) Red Blood Count 3.40 M/UL (4.20-5.40) Hemoglobin 10.2 G/DL (12.0-16.0) Hematocrit 30.6 % (37.0-47.0) Mean Corpuscular Volume 90 FL (80-99) Mean Corpuscular Hemoglobin 29.9 PG (27.0-31.0) Mean Corpuscular Hemoglobin Concent 33.3 G/DL (32.0-36.0) Red Cell Distribution Width 13.6 % (11.6-14.8) Platelet Count 193 K/UL (150-450) Mean Platelet Volume 8.2 FL (6.5-10.1) Neutrophils (%) (Auto) 69.6 % (45.0-75.0) Lymphocytes (%) (Auto) 25.5 % (20.0-45.0) Monocytes (%) (Auto) 3.6 % (1.0-10.0) Eosinophils (%) (Auto) 0.1 % (0.0-3.0) Basophils (%) (Auto) 1.2 % (0.0-2.0) Sodium Level 131 MMOL/L (136-145) Potassium Level 4.4 MMOL/L (3.5-5.1) Chloride Level 93 MMOL/L (98-107) Carbon Dioxide Level 24 MMOL/L (21-32) Anion Gap 14 mmol/L (5-15) Blood Urea Nitrogen 21 mg/dL (7-18) Creatinine 1.7 MG/DL (0.55-1.30) Estimat Glomerular Filtration Rate 39.3 mL/min (>60) Glucose Level 821 MG/DL (74-106) Calcium Level 9.5 MG/DL (8.5-10.1) Total Bilirubin 0.7 MG/DL (0.2-1.0) Aspartate Amino Transf (AST/SGOT) 25 U/L (15-37) Alanine Aminotransferase (ALT/SGPT) 37 U/L (12-78) Alkaline Phosphatase 155 U/L (46-116) Total Protein 8.4 G/DL (6.4-8.2) Albumin 3.6 G/DL (3.4-5.0) Globulin 4.8 g/dL Albumin/Globulin Ratio 0.8 (1.0-2.7) Lipase 177 U/L (73-393) Rhythm Strip Diag. Results EP Interpretation: yes Rate: 110 Rhythm: no PVC's, no ectopy, other - Tachycardia Last Vital Signs Date Time Temp Pulse Resp B/P (MAP) Pulse Ox O2 Delivery O2 Flow Rate FiO2 11/05/17 13:38 97.9 112 165/88 Room Air 97.9 Status: improved Disposition: ADMITTED INPATIENT Condition: Critical Rosmery Muñoz DO November 05, 2017 14:46
[2017-11-05 15:00] VITALS: BP 202/100
[2017-11-05 15:23] LABS: HEMATOCRIT 30.6 % (37.0-47.0); HEMOGLOBIN 10.2 G/DL (12.0-16.0); MEAN CORPUSCULAR VOLUME 90 FL (80-99); PLATELET COUNT 193 K/UL (150-450); RED CELL DISTRIBUTION WIDTH 13.6 % (11.6-14.8); WHITE BLOOD COUNT 3.2 K/UL (4.8-10.8)
[2017-11-05 15:30] LABS: BASOPHILS % (AUTO) 1.2 % (0.0-2.0); EOSINOPHILS % (AUTO) 0.1 % (0.0-3.0); LYMPHOCYTES % (AUTO) 25.5 % (20.0-45.0); MONOCYTES % (AUTO) 3.6 % (1.0-10.0); NEUTROPHILS % (AUTO) 69.6 % (45.0-75.0)
[2017-11-05 15:49] LABS: ALANINE AMINOTRANSFERASE 37 U/L (12-78); ALBUMIN 3.6 G/DL (3.4-5.0); ALBUMIN/GLOBULIN RATIO 0.8 (1.0-2.7); ALKALINE PHOSPHATASE 155 U/L (46-116); ANION GAP 14 mmol/L (5-15); ASPARTATE AMINO TRANSFERASE 25 U/L (15-37); BILIRUBIN,TOTAL 0.7 MG/DL (0.2-1.0); BLOOD UREA NITROGEN 21 mg/dL (7-18); CALCIUM 9.5 MG/DL (8.5-10.1); CARBON DIOXIDE 24 MMOL/L (21-32); CHLORIDE 93 MMOL/L (98-107); CREATININE 1.7 MG/DL (0.55-1.30); POTASSIUM 4.4 MMOL/L (3.5-5.1); SODIUM 131 MMOL/L (136-145)
--- NOTE | 2017-11-05 17:24 | Diagnostic Imaging Report ---
Indication: Chest pain Technique: One view of the chest Comparison: 09/05/2017 Findings: Inspiration is improved from the prior exam. Lungs and pleural spaces are clear. Heart size is normal Impression: No acute process
[2017-11-05 18:42] VITALS: BP 158/78
[2017-11-05 20:00] VITALS: BP 132/77
[2017-11-05] MEDS: Heparin 5000 units/ml inj SUBQ SCH (23:24)
[2017-11-05] MEDS: NovoLOG Insulin Flexpen SUBQ SCH (23:30)
[2017-11-05] MEDS ORDERED: NovoLOG Insulin Flexpen SUBQ ONE (23:30)
[2017-11-06 00:04] VITALS: BP 146/79
[2017-11-06 04:00] VITALS: BP 126/76
[2017-11-06] MEDS: Heparin 5000 units/ml inj SUBQ SCH ×3 (06:28→21:01)
[2017-11-06] MEDS: NovoLOG Insulin Flexpen SUBQ SCH ×4 (06:29→21:01)
[2017-11-06] MEDS ORDERED: NovoLOG Insulin Flexpen SUBQ SCH (06:30)
[2017-11-06 07:46] LABS: BASOPHILS % (AUTO) 0.8 % (0.0-2.0); EOSINOPHILS % (AUTO) 1.3 % (0.0-3.0); HEMATOCRIT 30.8 % (37.0-47.0); LYMPHOCYTES % (AUTO) 44.2 % (20.0-45.0); MEAN CORPUSCULAR VOLUME 91 FL (80-99); MONOCYTES % (AUTO) 3.5 % (1.0-10.0); NEUTROPHILS % (AUTO) 50.2 % (45.0-75.0); PLATELET COUNT 220 K/UL (150-450); RED BLOOD COUNT 3.37 M/UL (4.20-5.40); WHITE BLOOD COUNT 6.6 K/UL (4.8-10.8)
[2017-11-06 08:16] LABS: ALANINE AMINOTRANSFERASE 28 U/L (12-78); ALBUMIN 2.8 G/DL (3.4-5.0); ALBUMIN/GLOBULIN RATIO 0.8 (1.0-2.7); ALKALINE PHOSPHATASE 103 U/L (46-116); ASPARTATE AMINO TRANSFERASE 16 U/L (15-37); BILIRUBIN,TOTAL 0.3 MG/DL (0.2-1.0); BLOOD UREA NITROGEN 18 mg/dL (7-18); CALCIUM 8.9 MG/DL (8.5-10.1); CARBON DIOXIDE 30 MMOL/L (21-32); CHLORIDE 105 MMOL/L (98-107); CREATININE 1.4 MG/DL (0.55-1.30); PHOSPHORUS 3.2 MG/DL (2.5-4.9); SODIUM 141 MMOL/L (136-145)
[2017-11-06 09:00] VITALS: BP 128/71
[2017-11-06] MEDS ORDERED: Acetaminophen 500mg (ES) tab ORAL PRN (11:45)
[2017-11-06 12:00] VITALS: BP 117/72
[2017-11-06] MEDS ORDERED: Norco 5mg/325mg tab ORAL PRN (12:45)
[2017-11-06] MEDS ORDERED: Meloxicam 15 MG TAB ORAL SCH (14:00)
--- NOTE | 2017-11-06 14:39 | Consultation ---
History of Present Illness General Date patient seen: November 07, 2017 Chief Complaint: Pain Present Illness HPI 47 year old female with hx of labile DM presented to ER with complaints of neck and shoulder pain. Her BS that day was initially 40 then she ate something and her BS shoot up to 800. She is admitted for uncontrolled diabetes. Allergies: Coded Allergies: No Known Allergies (Unverified , 04/24/14) Medication History Scheduled Amlodipine Besylate (Norvasc), 10 MG ORAL DAILY Escitalopram Oxalate* (Lexapro*), 20 MG ORAL DAILY, (Reported) Insulin Detemir (Levemir Flexpen), 18 UNITS SUBQ DAILY, (Reported) Meloxicam* (Meloxicam*), 15 MG PO DAILY, (Reported) Pantoprazole* (Protonix*), 40 MG ORAL DAILY, (Reported) Pregabalin (Lyrica), 50 MG PO BID, (Reported) Valsartan (Diovan), 160 MG ORAL BID Scheduled PRN Hydrocodone Bit/Acetaminophen 5-325* ([place] 5-325 Tablet*), 1 TAB ORAL Q4H PRN for For Pain, (Reported) Patient History Healthcare decision maker Resuscitation status Full Code Advanced Directive on File No Past Medical/Surgical History Past Medical/Surgical History: (1) Major depression (2) CKD (chronic kidney disease) (3) Diabetic gastroparesis (4) GERD (gastroesophageal reflux disease) (5) Anemia Review of Systems All Other Systems: negative except mentioned in HPI Physical Exam General Appearance: WD/WN Lines, tubes and drains: peripheral HEENT: normocephalic, atraumatic Neck: non-tender, normal alignment Respiratory/Chest: chest wall non-tender, lungs clear Breasts: no masses Cardiovascular/Chest: normal peripheral pulses, normal rate Abdomen: normal bowel sounds, non tender Genitourinary/Rectal: normal genital exam Extremities: non-tender Skin Exam: warm/dry Neurologic: non acoustic operator II-XII grossly normal Last 24 Hour Vital Signs Date Time Temp Pulse Resp B/P (MAP) Pulse Ox O2 Delivery O2 Flow Rate FiO2 11/06/17 14:00 99.0 11/06/17 13:01 99.0 11/06/17 13:00 85 128/71 11/06/17 12:00 98.1 72 20 117/72 97 Room Air 98.1 11/06/17 11:40 99.0 11/06/17 09:00 99.0 85 16 128/71 97 Room Air 99.0 11/06/17 04:00 98.1 87 20 126/76 98 98.1 11/06/17 00:04 98.2 88 20 146/79 99 98.2 11/05/17 20:00 97.7 86 20 132/77 100 97.7 11/05/17 19:44 97.9 92 20 135/85 100 Room Air 97.9 11/05/17 18:42 95 18 158/78 100 Room Air 11/05/17 15:45 160/80 11/05/17 15:00 101 17 202/100 100 Room Air Intake and Output 11/05/17 11/06/17 19:00 07:00 Intake Total 600 ml Balance 600 ml Intake Oral 600 ml # Voids 1 3 Laboratory Tests Test 11/05/17 14:49 11/06/17 05:10 White Blood Count 3.2 K/UL (4.8-10.8) L 6.6 K/UL (4.8-10.8) # Red Blood Count 3.40 M/UL (4.20-5.40) L 3.37 M/UL (4.20-5.40) L Hemoglobin 10.2 G/DL (12.0-16.0) L 10.0 G/DL (12.0-16.0) L Hematocrit 30.6 % (37.0-47.0) L 30.8 % (37.0-47.0) L Mean Corpuscular Volume 90 FL (80-99) 91 FL (80-99) Mean Corpuscular Hemoglobin 29.9 PG (27.0-31.0) 29.6 PG (27.0-31.0) Mean Corpuscular Hemoglobin Concent 33.3 G/DL (32.0-36.0) 32.5 G/DL (32.0-36.0) Red Cell Distribution Width 13.6 % (11.6-14.8) 14.0 % (11.6-14.8) Platelet Count 193 K/UL (150-450) 220 K/UL (150-450) Mean Platelet Volume 8.2 FL (6.5-10.1) 8.4 FL (6.5-10.1) Neutrophils (%) (Auto) 69.6 % (45.0-75.0) 50.2 % (45.0-75.0) Lymphocytes (%) (Auto) 25.5 % (20.0-45.0) 44.2 % (20.0-45.0) Monocytes (%) (Auto) 3.6 % (1.0-10.0) 3.5 % (1.0-10.0) Eosinophils (%) (Auto) 0.1 % (0.0-3.0) 1.3 % (0.0-3.0) Basophils (%) (Auto) 1.2 % (0.0-2.0) 0.8 % (0.0-2.0) Sodium Level 131 MMOL/L (136-145) L 141 MMOL/L (136-145) # Potassium Level 4.4 MMOL/L (3.5-5.1) 4.0 MMOL/L (3.5-5.1) Chloride Level 93 MMOL/L (98-107) L 105 MMOL/L (98-107) Carbon Dioxide Level 24 MMOL/L (21-32) 30 MMOL/L (21-32) Anion Gap 14 mmol/L (5-15) Blood Urea Nitrogen 21 mg/dL (7-18) H 18 mg/dL (7-18) Creatinine 1.7 MG/DL (0.55-1.30) H 1.4 MG/DL (0.55-1.30) H Estimat Glomerular Filtration Rate 39.3 mL/min (>60) 49.1 mL/min (>60) Glucose Level 821 MG/DL (74-106) *H 272 MG/DL (74-106) #H Calcium Level 9.5 MG/DL (8.5-10.1) 8.9 MG/DL (8.5-10.1) Total Bilirubin 0.7 MG/DL (0.2-1.0) 0.3 MG/DL (0.2-1.0) Aspartate Amino Transf (AST/SGOT) 25 U/L (15-37) 16 U/L (15-37) Alanine Aminotransferase (ALT/SGPT) 37 U/L (12-78) 28 U/L (12-78) Alkaline Phosphatase 155 U/L (46-116) H 103 U/L (46-116) Total Protein 8.4 G/DL (6.4-8.2) H 6.5 G/DL (6.4-8.2) Albumin 3.6 G/DL (3.4-5.0) 2.8 G/DL (3.4-5.0) L Globulin 4.8 g/dL 3.7 g/dL Albumin/Globulin Ratio 0.8 (1.0-2.7) L 0.8 (1.0-2.7) L Lipase 177 U/L (73-393) Phosphorus Level 3.2 MG/DL (2.5-4.9) Magnesium Level 2.0 MG/DL (1.8-2.4) Height (Feet): 5 Height (Inches): 3.00 Weight (Pounds): 130 Medications Current Medications Medications (Trade) Dose Ordered Sig/Lizbeth Route PRN Reason Start Time Stop Time Status Last Admin Dose Admin Acetaminophen (Tylenol) 500 mg Q4H PRN ORAL Mild Pain/Temp > 100.5 11/06/17 11:45 12/06/17 11:44 11/06/17 11:40 Acetaminophen/ Hydrocodone Bitart ([place] 5/325) 1 tab Q4H PRN ORAL pain 4-10 11/06/17 12:45 11/13/17 12:44 11/06/17 13:01 Amlodipine Besylate (Norvasc) 10 mg DAILY ORAL 11/07/17 09:00 12/07/17 08:59 Clonidine HCl (Catapres Tab) 0.1 mg Q4H PRN ORAL For High Blood Pressure 11/05/17 21:45 12/05/17 21:44 Dextrose (Dextrose 50%) 25 ml STAT PRN IV Hypoglycemia 11/05/17 21:45 12/05/17 21:44 Dextrose (Dextrose 50%) 50 ml STAT PRN IV Hypoglycemia 11/05/17 21:45 12/05/17 21:44 Heparin Sodium (Porcine) (Heparin 5000 units/ml) 5,000 units EVERY 8 HOURS SUBQ 11/05/17 22:00 12/05/17 21:59 11/06/17 06:28 Insulin Aspart (NovoLOG) BEFORE MEALS AND HS SUBQ 11/05/17 23:30 12/05/17 23:29 11/06/17 12:06 Insulin Detemir (Levemir) 18 units DAILY SUBQ 11/06/17 14:00 12/06/17 13:59 Iopamidol (Isovue-370 150ml) 150 ml NOW PRN INJ Radiology Procedure 11/05/17 14:30 11/07/17 14:20 Meloxicam (Mobic) 15 mg DAILY ORAL 11/07/17 09:00 12/07/17 08:59 Meloxicam (Mobic) 15 mg ONCE ORAL 11/06/17 14:00 11/06/17 15:00 11/06/17 14:11 Pantoprazole (Protonix) 40 mg DAILY ORAL 11/07/17 09:00 12/07/17 08:59 Pregabalin (Lyrica) 50 mg BID ORAL 11/07/17 09:00 12/07/17 08:59 Sodium Chloride 1,000 ml @ 100 mls/hr Q10H IV 11/05/17 23:30 12/05/17 23:29 11/06/17 08:45 Assessment/Plan Problem List: (1) Diabetes type 1, uncontrolled ICD Codes: E10.65 - Type 1 diabetes mellitus with hyperglycemia SNOMED: 189342203, 171868146 (2) GERD (gastroesophageal reflux disease) ICD Codes: K21.9 - Gastro-esophageal reflux disease without esophagitis SNOMED: 838800696 (3) Anemia ICD Codes: D64.9 - Anemia, unspecified SNOMED: 772743575 (4) Non-compliance with treatment ICD Codes: Z91.19 - Non-compliance with treatment SNOMED: 7664319 (5) CKD (chronic kidney disease) ICD Codes: N18.9 - Chronic kidney disease, unspecified SNOMED: 622019137 (6) Major depression ICD Codes: F32.9 - Major depressive disorder, single episode, unspecified SNOMED: 212160025 (7) Diabetic gastroparesis ICD Codes: E11.43 - Diabetic gastroparesis SNOMED: 04859946 Assessment/Plan sliding scale diabetic diet symptomatic treatment dvt prophylaxis Chapin Paredes MD November 06, 2017 14:39
[2017-11-06] MEDS: Levemir Flexpen SUBQ SCH (15:22)
[2017-11-06 15:34] VITALS: BP 128/71
--- NOTE | 2017-11-06 16:43 | Cardiology Report ---
APPROVED REPORT EKG Measurement Heart [id number] Sinus tachycardia Possible Left atrial enlargement Borderline ECG
[2017-11-06 19:47] VITALS: BP 135/79
--- NOTE | 2017-11-06 19:49 | History & Physical ---
History and Physical History & Physicial Dictated for Int Med-Dr Hardin no. [id number]. Anastacio Wright MD November 06, 2017 19:49
[2017-11-06 20:35] LABS: APPEARANCE,URINE VERY CLOUDY; BILIRUBIN, URINE NEGATIVE (NEGATIVE); COLOR,URINE PALE YELLOW; GLUCOSE, URINE (UA) 4+ (NEGATIVE); KETONES,URINE 1+ (NEGATIVE); LEUKOCYTE ESTERASE ,URINE 3+ (NEGATIVE); NITRITE,URINE NEGATIVE (NEGATIVE); PH,URINE 5 (4.5-8.0); PROTEIN,URINE 3+ (NEGATIVE); UROBILINOGEN,URINE NORMAL MG/DL (0.0-1.0)
[2017-11-06] MEDS ORDERED: Lyrica 50mg cap ORAL SCH (21:00)
--- NOTE | 2017-11-06 22:30 | History and Physical Report ---
DATE OF ADMISSION: 11/05/2017 CHIEF COMPLAINT: The patient is a 47-year-old female, who presents with chief complaint of neck pain and shoulder pain. HISTORY OF PRESENT ILLNESS: The patient has a history of type 1 diabetes. The patient was last admitted to [facility] in 04/2018. Please see history and physical and discharge summary dictated at that time. The patient presented to [facility] with complaint of neck pain. Neck pain radiated to the left shoulder. The patient also has some chest pain. The patient was admitted for neck pain and shoulder pain to rule out acute coronary syndrome. PAST MEDICAL HISTORY: Significant for 1. Type 1 diabetes. 2. Hypertension. 3. Gastroesophageal reflux disease. 4. Diabetic nephropathy. 5. History of pancreatitis. PAST SURGICAL HISTORY: The patient denies. CURRENT MEDICATIONS: 1. Amlodipine 10 mg p.o. daily. 2. Lexapro 20 mg p.o. daily. 3. Perry 5/325 mg 1 tablet p.o. q.4 h. p.r.n. 4. Levemir 18 units subcutaneously daily. 5. Meloxicam 15 mg p.o. daily. 6. Protonix 40 mg p.o. daily. 7. Lyrica 50 mg p.o. twice daily. 8. Diovan 160 mg p.o. twice daily. ALLERGIES: No known drug allergies. SOCIAL HISTORY: The patient is single and lives with her aunt. 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 The patient denies tobacco use. The patient has occasional alcohol use. REVIEW OF SYSTEMS: CONSTITUTIONAL: The patient denies weight loss or weight gain. The patient denies fevers or chills. HEENT: The patient denies ear or throat pain. The patient denies headache. CARDIOVASCULAR: The patient denies palpitations or chest pain. CHEST: The patient denies wheeze or shortness of breath. ABDOMEN: The patient denies nausea, vomiting, diarrhea, or constipation. GENITOURINARY: The patient denies dysuria or increased frequency of urination. NEUROMUSCULAR: The patient complains of neck pain and left shoulder pain as above. The patient denies seizures or generalized weakness. PHYSICAL EXAMINATION: GENERAL: The patient is a well-developed and well-nourished female, in no apparent distress. VITAL SIGNS: Temperature 98.1 degrees, respirations 20, pulse 72 and blood pressure 117/72. HEENT: Pupils equal and responsive to light and accommodation. Extraocular movements intact. NECK: Supple without lymphadenopathy. CHEST: Lungs are clear to auscultation bilaterally without wheezes or rales. CARDIOVASCULAR: Regular rhythm and rate. S1 and S2 are normal without murmurs, rubs, or gallops. ABDOMEN: Soft, nontender, and nondistended. Positive bowel sounds. No evidence of hepatosplenomegaly. Currently, no rebound or guarding noted. EXTREMITIES: Negative for clubbing, cyanosis, or edema. RECTAL/GENITAL: Refused. NEUROLOGICAL: Cranial nerves II through XII grossly intact without focal deficits. Motor strength is 5/5 bilaterally. Deep tendon reflexes are 2+ plantar. LABORATORY AND DIAGNOSTIC DATA: WBC 3.2, hemoglobin 10.2, hematocrit 30.6 and platelets 119,000. Sodium 131, potassium 4.4, chloride 93, CO2 24, BUN 29, creatinine 1.7 and glucose elevated 821. Chest x-ray was within normal limits. ASSESSMENT: This is a 47-year-old female 1. Uncontrolled type 1 diabetes. 2. Cervical spine pain. 3. Left shoulder pain. 4. Hypertension. 5. Gastroesophageal reflux disease. 6. Diabetic nephropathy. TREATMENT: 1. Uncontrolled type 1 diabetes. An Endocrinology consultation will be obtained with Dr. Hayes. We will follow recommendations of Endocrinology. The patient has been placed on a NovoLog sliding scale. Continue Levemir as above. 2. Left shoulder pain/cervical spine pain. 3. Hypertension. Continue Diovan as above. 4. Gastroesophageal reflux disease. 5. Diabetic nephropathy. Anastacio Wright M.D. DR: BUCKY JOB#: [id number] CC:
[2017-11-07] VITALS: BP 115/65
[2017-11-07 04:00] VITALS: BP 119/66
[2017-11-07] MEDS: NovoLOG Insulin Flexpen SUBQ SCH ×4 (06:38→21:10)
[2017-11-07] MEDS: Heparin 5000 units/ml inj SUBQ SCH ×3 (06:40→21:10)
[2017-11-07 08:00] VITALS: BP 139/81
[2017-11-07] MEDS ORDERED: Lyrica 50mg cap ORAL SCH (09:00)
[2017-11-07 09:01] LABS: BASOPHILS % (AUTO) 1.1 % (0.0-2.0); HEMATOCRIT 31.2 % (37.0-47.0); HEMOGLOBIN 10.3 G/DL (12.0-16.0); MEAN CORPUSCULAR VOLUME 91 FL (80-99); MONOCYTES % (AUTO) 4.4 % (1.0-10.0); NEUTROPHILS % (AUTO) 40.5 % (45.0-75.0); PLATELET COUNT 217 K/UL (150-450); RED BLOOD COUNT 3.44 M/UL (4.20-5.40); RED CELL DISTRIBUTION WIDTH 13.7 % (11.6-14.8); WHITE BLOOD COUNT 4.9 K/UL (4.8-10.8)
[2017-11-07 09:15] LABS: INR 0.9 (0.9-1.1)
[2017-11-07 09:47] LABS: % IRON SATURATION 34 % (15-50); IRON 84 ug/dL (50-175); LACTATE DEHYDROGENASE 169 U/L (81-234); TOTAL IRON BINDING CAPACITY 250 ug/dL (250-450)
[2017-11-07 09:51] LABS: ALANINE AMINOTRANSFERASE 26 U/L (12-78); ALBUMIN 2.7 G/DL (3.4-5.0); ALBUMIN/GLOBULIN RATIO 0.7 (1.0-2.7); ALKALINE PHOSPHATASE 78 U/L (46-116); ANION GAP 10 mmol/L (5-15); ASPARTATE AMINO TRANSFERASE 14 U/L (15-37); BILIRUBIN,TOTAL 0.2 MG/DL (0.2-1.0); BLOOD UREA NITROGEN 16 mg/dL (7-18); CALCIUM 8.4 MG/DL (8.5-10.1); CARBON DIOXIDE 24 MMOL/L (21-32); CHLORIDE 106 MMOL/L (98-107); CREATININE 1.2 MG/DL (0.55-1.30); PHOSPHORUS 2.4 MG/DL (2.5-4.9); POTASSIUM 3.8 MMOL/L (3.5-5.1); SODIUM 140 MMOL/L (136-145)
[2017-11-07] MEDS: Meloxicam 15 MG TAB ORAL SCH (09:58)
[2017-11-07] MEDS: Lyrica 50mg cap ORAL SCH ×2 (09:59→17:55)
[2017-11-07] MEDS: Levemir Flexpen SUBQ SCH (10:00)
[2017-11-07 12:00] VITALS: BP 149/76
--- NOTE | 2017-11-07 15:36 | Pulmonology Progress Note ---
Assessment/Plan Problems: (1) Diabetes type 1, uncontrolled (2) GERD (gastroesophageal reflux disease) (3) Anemia (4) Non-compliance with treatment (5) CKD (chronic kidney disease) (6) Major depression (7) Diabetic gastroparesis Assessment/Plan sliding scale diabetic diet symptomatic treatment dvt prophylaxis BS still more than 250 endo called Subjective ROS Limited/Unobtainable: No Constitutional: Reports: no symptoms HEENT: Repors: no symptoms Allergies: Coded Allergies: No Known Allergies (Unverified , 04/24/14) Objective Last 24 Hour Vital Signs Date Time Temp Pulse Resp B/P (MAP) Pulse Ox O2 Delivery O2 Flow Rate FiO2 11/07/17 12:00 98.1 86 19 149/76 98 98.1 11/07/17 09:58 88 139/81 11/07/17 08:00 97.7 88 20 139/81 97 97.7 11/07/17 04:00 97.6 81 18 119/66 100 97.6 11/07/17 00:00 97.7 85 18 115/65 100 97.7 11/06/17 19:47 97.5 88 18 135/79 96 97.5 Intake and Output 11/06/17 11/07/17 19:00 07:00 Intake Total 775 ml 560 ml Balance 775 ml 560 ml Intake Oral 675 ml 260 ml IV Total 100 ml 300 ml # Voids 2 General Appearance: WD/WN, no acute distress Respiratory/Chest: chest wall non-tender, lungs clear Cardiovascular: normal peripheral pulses, normal rate, regular rhythm Abdomen: normal bowel sounds, no organomegaly Skin: no rash 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 Microbiology Date/Time Source Procedure Growth Status 11/06/17 10:25 Urine,Clean Catch Urine Culture - Preliminary Gram Negative Bacillus 1 Resulted Laboratory Tests 11/07/17 08:25: White Blood Count 4.9, Red Blood Count 3.44L, Hemoglobin 10.3L, Hematocrit 31.2L , Mean Corpuscular Volume 91, Mean Corpuscular Hemoglobin 29.8, Mean Corpuscular Hemoglobin Concent 33.0, Red Cell Distribution Width 13.7, Platelet Count 217, Mean Platelet Volume 8.3, Neutrophils (%) (Auto) 40.5L, Lymphocytes ( %) (Auto) 52.0H, Monocytes (%) (Auto) 4.4, Eosinophils (%) (Auto) 2.0, Basophils (%) (Auto) 1.1, Differential Total Cells Counted 100, Neutrophils % ( Manual) 40L, Lymphocytes % (Manual) 53H, Monocytes % (Manual) 4, Eosinophils % ( Manual) 2, Basophils % (Manual) 1, Band Neutrophils 0, Platelet Estimate Adequate, Platelet Morphology Normal, Hypochromasia 1+, Anisocytosis 1+, Erythrocyte Sedimentation Rate 31H, Reticulocyte Count 1.6, Prothrombin Time 9.4 , Prothromb Time International Ratio 0.9, Activated Partial Thromboplast Time 25 , Sodium Level 140, Potassium Level 3.8, Chloride Level 106, Carbon Dioxide Level 24, Anion Gap 10, Blood Urea Nitrogen 16, Creatinine 1.2, Estimat Glomerular Filtration Rate 58.7, Glucose Level 248H, Calcium Level 8.4L, Phosphorus Level 2.4L, Magnesium Level 1.7L, Iron Level 84, Total Iron Binding Capacity 250, Percent Iron Saturation 34, Unsaturated Iron Binding 166, Total Bilirubin 0.2, Aspartate Amino Transf (AST/SGOT) 14L, Alanine Aminotransferase ( ALT/SGPT) 26, Alkaline Phosphatase 78, Lactate Dehydrogenase 169, Total Protein 6.5, Albumin 2.7L, Globulin 3.8, Albumin/Globulin Ratio 0.7L, Carcinoembryonic Antigen [Pending], Vitamin B12 Level 800, Folate 13.6 11/07/17 09:00: Stool Occult Blood Negative Current Medications Medications (Trade) Dose Ordered Sig/Lizbeth Route PRN Reason Start Time Stop Time Status Last Admin Dose Admin Acetaminophen (Tylenol) 500 mg Q4H PRN ORAL Mild Pain/Temp > 100.5 11/06/17 11:45 12/06/17 11:44 11/06/17 11:40 Acetaminophen/ Hydrocodone Bitart ([place] 5/325) 1 tab Q4H PRN ORAL pain 4-10 11/06/17 12:45 11/13/17 12:44 11/06/17 13:01 Amlodipine Besylate (Norvasc) 10 mg DAILY ORAL 11/07/17 09:00 12/07/17 08:59 11/07/17 09:58 Clonidine HCl (Catapres Tab) 0.1 mg Q4H PRN ORAL For High Blood Pressure 11/05/17 21:45 12/05/17 21:44 Dextrose (Dextrose 50%) 25 ml STAT PRN IV Hypoglycemia 11/05/17 21:45 12/05/17 21:44 Dextrose (Dextrose 50%) 50 ml STAT PRN IV Hypoglycemia 11/05/17 21:45 12/05/17 21:44 Heparin Sodium (Porcine) (Heparin 5000 units/ml) 5,000 units EVERY 8 HOURS SUBQ 11/05/17 22:00 12/05/17 21:59 11/07/17 06:40 Insulin Aspart (NovoLOG) BEFORE MEALS AND HS SUBQ 11/05/17 23:30 12/05/17 23:29 11/07/17 12:01 Insulin Detemir (Levemir) 18 units DAILY SUBQ 11/06/17 14:00 12/06/17 13:59 11/07/17 10:00 Meloxicam (Mobic) 15 mg DAILY ORAL 11/07/17 09:00 12/07/17 08:59 11/07/17 09:58 Pantoprazole (Protonix) 40 mg DAILY ORAL 11/07/17 09:00 12/07/17 08:59 11/07/17 09:58 Pregabalin (Lyrica) 50 mg BID ORAL 11/07/17 09:00 12/07/17 08:59 11/07/17 09:59 Sodium Chloride 1,000 ml @ 100 mls/hr Q10H IV 11/05/17 23:30 12/05/17 23:29 11/07/17 13:26 Chapin Paredes MD November 07, 2017 15:36
[2017-11-07 16:00] VITALS: BP 161/92
--- NOTE | 2017-11-07 19:39 | Internal Med Progress Note ---
Subjective Date of Service: November 07, 2017 Physician Name Anastacio Wright Attending Physician Aries Hardin MD Current Medications Medications (Trade) Dose Ordered Sig/Lizbeth Route PRN Reason Start Time Stop Time Status Last Admin Dose Admin Acetaminophen (Tylenol) 500 mg Q4H PRN ORAL Mild Pain/Temp > 100.5 11/06/17 11:45 12/06/17 11:44 11/06/17 11:40 Acetaminophen/ Hydrocodone Bitart ([place] 5/325) 1 tab Q4H PRN ORAL pain 4-10 11/06/17 12:45 11/13/17 12:44 11/06/17 13:01 Amlodipine Besylate (Norvasc) 10 mg DAILY ORAL 11/07/17 09:00 12/07/17 08:59 11/07/17 09:58 Clonidine HCl (Catapres Tab) 0.1 mg Q4H PRN ORAL For High Blood Pressure 11/05/17 21:45 12/05/17 21:44 Dextrose (Dextrose 50%) 25 ml STAT PRN IV Hypoglycemia 11/05/17 21:45 12/05/17 21:44 Dextrose (Dextrose 50%) 25 ml STAT PRN IV Hypoglycemia 11/07/17 18:30 12/07/17 18:29 Dextrose (Dextrose 50%) 50 ml STAT PRN IV Hypoglycemia 11/05/17 21:45 12/05/17 21:44 Dextrose (Dextrose 50%) 50 ml STAT PRN IV Hypoglycemia 11/07/17 18:30 12/07/17 18:29 Heparin Sodium (Porcine) (Heparin 5000 units/ml) 5,000 units EVERY 8 HOURS SUBQ 11/05/17 22:00 12/05/17 21:59 11/07/17 15:40 Insulin Aspart (NovoLOG) BEFORE MEALS AND HS SUBQ 11/05/17 23:30 12/05/17 23:29 11/07/17 16:58 Insulin Aspart (NovoLOG) 4 units NOVOTIAC SUBQ 11/08/17 06:30 12/08/17 06:29 Insulin Detemir (Levemir) 18 units DAILY SUBQ 11/06/17 14:00 12/06/17 13:59 11/07/17 10:00 Meloxicam (Mobic) 15 mg DAILY ORAL 11/07/17 09:00 12/07/17 08:59 11/07/17 09:58 Pantoprazole (Protonix) 40 mg DAILY ORAL 11/07/17 09:00 12/07/17 08:59 11/07/17 09:58 Pregabalin (Lyrica) 50 mg BID ORAL 11/07/17 09:00 12/07/17 08:59 11/07/17 17:55 Sodium Chloride 1,000 ml @ 100 mls/hr Q10H IV 11/05/17 23:30 12/05/17 23:29 11/07/17 13:26 Allergies: Coded Allergies: No Known Allergies (Unverified , 04/24/14) ROS Limited/Unobtainable: No Constitutional: Reports: no symptoms HEENT: Reports: no symptoms Cardiovascular: Reports: no symptoms Respiratory: Reports: no symptoms Genitourinary: Reports: no symptoms Neurologic/Psychiatric: Reports: no symptoms Subjective 47 YO F admitted with neck and shoulder pain. Now uncontrolled diabetes with DKA. Await endicrinology consult. Cover for Int Alejo-Dr Hardin Objective Last Vital Signs Date Time Temp Pulse Resp B/P (MAP) Pulse Ox O2 Delivery O2 Flow Rate FiO2 11/07/17 16:00 98.1 90 18 161/92 100 98.1 11/06/17 12:00 Room Air General Appearance: WD/WN, no apparent distress, alert, mild distress EENT: PERRL/EOMI, normal ENT inspection, pharynx normal Neck: non-tender, normal alignment, supple, normal inspection Cardiovascular: normal peripheral pulses, normal rate, regular rhythm, no gallop/murmur, no JVD Respiratory/Chest: chest wall non-tender, lungs clear, normal breath sounds, no respiratory distress, no accessory muscle use Abdomen: normal bowel sounds, non tender, soft, no organomegaly, no mass 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, no motor/sensory deficits Skin: normal pigmentation, warm/dry Laboratory Tests Test 11/07/17 08:25 11/07/17 09:00 White Blood Count 4.9 K/UL (4.8-10.8) Red Blood Count 3.44 M/UL (4.20-5.40) L Hemoglobin 10.3 G/DL (12.0-16.0) L Hematocrit 31.2 % (37.0-47.0) L Mean Corpuscular Volume 91 FL (80-99) Mean Corpuscular Hemoglobin 29.8 PG (27.0-31.0) Mean Corpuscular Hemoglobin Concent 33.0 G/DL (32.0-36.0) Red Cell Distribution Width 13.7 % (11.6-14.8) Platelet Count 217 K/UL (150-450) Mean Platelet Volume 8.3 FL (6.5-10.1) Neutrophils (%) (Auto) 40.5 % (45.0-75.0) L Lymphocytes (%) (Auto) 52.0 % (20.0-45.0) H Monocytes (%) (Auto) 4.4 % (1.0-10.0) Eosinophils (%) (Auto) 2.0 % (0.0-3.0) Basophils (%) (Auto) 1.1 % (0.0-2.0) Differential Total Cells Counted 100 Neutrophils % (Manual) 40 % (45-75) L Lymphocytes % (Manual) 53 % (20-45) H Monocytes % (Manual) 4 % (1-10) Eosinophils % (Manual) 2 % (0-3) Basophils % (Manual) 1 % (0-2) Band Neutrophils 0 % (0-8) Platelet Estimate Adequate Platelet Morphology Normal Hypochromasia 1+ Anisocytosis 1+ Erythrocyte Sedimentation Rate 31 MM/HR (0-20) H Reticulocyte Count 1.6 % (0.0-2.0) Prothrombin Time 9.4 SEC (9.30-11.50) Prothromb Time International Ratio 0.9 (0.9-1.1) Activated Partial Thromboplast Time 25 SEC (23-33) Sodium Level 140 MMOL/L (136-145) Potassium Level 3.8 MMOL/L (3.5-5.1) Chloride Level 106 MMOL/L (98-107) Carbon Dioxide Level 24 MMOL/L (21-32) Anion Gap 10 mmol/L (5-15) Blood Urea Nitrogen 16 mg/dL (7-18) Creatinine 1.2 MG/DL (0.55-1.30) Estimat Glomerular Filtration Rate 58.7 mL/min (>60) Glucose Level 248 MG/DL (74-106) H Calcium Level 8.4 MG/DL (8.5-10.1) L Phosphorus Level 2.4 MG/DL (2.5-4.9) L Magnesium Level 1.7 MG/DL (1.8-2.4) L Iron Level 84 ug/dL (50-175) Total Iron Binding Capacity 250 ug/dL (250-450) Percent Iron Saturation 34 % (15-50) Unsaturated Iron Binding 166 ug/dL (112-346) Total Bilirubin 0.2 MG/DL (0.2-1.0) Aspartate Amino Transf (AST/SGOT) 14 U/L (15-37) L Alanine Aminotransferase (ALT/SGPT) 26 U/L (12-78) Alkaline Phosphatase 78 U/L (46-116) Lactate Dehydrogenase 169 U/L (81-234) Total Protein 6.5 G/DL (6.4-8.2) Albumin 2.7 G/DL (3.4-5.0) L Globulin 3.8 g/dL Albumin/Globulin Ratio 0.7 (1.0-2.7) L Carcinoembryonic Antigen Pending Vitamin B12 Level 800 PG/ML (193-986) Folate 13.6 NG/ML (8.6-58.9) Stool Occult Blood Negative (NEGATIVE) Microbiology Date/Time Source Procedure Growth Status 11/06/17 10:25 Urine,Clean Catch Urine Culture - Preliminary Gram Negative Bacillus 1 Resulted Intake and Output 11/06/17 11/07/17 19:00 07:00 Intake Total 775 ml 560 ml Balance 775 ml 560 ml Intake Oral 675 ml 260 ml IV Total 100 ml 300 ml # Voids 2 Assessment/Plan Problem List: (1) HTN (hypertension) Assessment & Plan: Continue norvasc (2) Diabetes mellitus type 1, uncontrolled, insulin dependent Assessment & Plan: Continue levemir and novolog sliding scale. Await endocrinology recs (3) Renal insufficiency (4) Diabetic ketoacidosis, type I (5) GERD (gastroesophageal reflux disease) (6) Hyperglycemia Status: not improved Anastacio Wright MD November 07, 2017 19:39
[2017-11-07 20:25] VITALS: BP 148/79
--- NOTE | 2017-11-07 23:30 | Consultation ---
DATE OF CONSULTATION: 11/07/2017 ENDOCRINOLOGY CONSULTATION CONSULTING PHYSICIAN: Judd Hayes M.D. REFERRING PHYSICIAN: Aries Hardin M.D. REASON FOR CONSULTATION: Diabetes management. HISTORY OF PRESENT ILLNESS: The patient is a 47-year-old female, well known to me due to numerous previous admission to [facility] with diabetes out of control and DKA. I also follow her as an outpatient for management of type 1 diabetes, although she does not show up for her followups. The patient has been started on Medtronic 670G model with sensor, which she uses off and on. When she was off of it, she uses the insulin injection Levemir 18 units daily and NovoLog sliding scale. The patient presented to the hospital with a glucose of 800, was in mild DKA, admitted for observation and treatment. Today's laboratories did not show any anion gap. I was called to manage diabetes. PAST MEDICAL HISTORY: 1. Hypertension. 2. Diabetes type 1. 3. Chronic kidney disease. 4. Gastroparesis. FAMILY HISTORY: Noncontributory. SOCIAL HISTORY: She smokes cigarettes. No alcohol or drug use. REVIEW OF SYSTEMS: As per history of present illness. PHYSICAL EXAMINATION: GENERAL: She is awake and alert. VITAL SIGNS: Blood pressure is 170/80, pulse of 80, temperature 98.2 degrees, and respiratory rate 18. HEENT: Pupils are equal and reactive to light and accommodation. Sclerae is anicteric. NECK: No JVD. No thyromegaly. No bruit. LUNGS: Clear. HEART: Regular rate and rhythm. ABDOMEN: Positive bowel sounds. EXTREMITIES: No clubbing, cyanosis, or edema. LABORATORY AND DIAGNOSTIC DATA: Laboratory values, sodium 140, potassium 3.8, chloride 106, bicarbonate 24, BUN 25, creatinine 1.2, and glucose 248. DIAGNOSIS: 1. Type 1 diabetes out of control. 2. Hypertension. PLAN: 1. Continue Levemir 18 units daily. 2. Add NovoLog 4 units before each meal. 3. Continue NovoLog sliding scale. 4. Blood pressure control. 5. Resume insulin pump therapy as an outpatient. Thank you, Dr. Hardin, for the courtesy of this consultation. Judd Hayes M.D. DR: JUAN PABLO JOB#: [id number] CC: KRISTY
[2017-11-08 00:39] VITALS: BP 134/72
[2017-11-08 04:00] VITALS: BP 141/81
[2017-11-08] MEDS: Heparin 5000 units/ml inj SUBQ SCH ×2 (06:00→14:00)
[2017-11-08] MEDS: NovoLOG Insulin Flexpen SUBQ SCH ×4 (06:03→12:22)
--- NOTE | 2017-11-08 06:44 | General Progress Note ---
Assessment/Plan Problem List: (1) Uncontrolled diabetes mellitus ICD Codes: E11.65 - Type 2 diabetes mellitus with hyperglycemia SNOMED: 30486385, 329722455 (2) Renal failure ICD Codes: N19 - Unspecified kidney failure SNOMED: 82185456 (3) DKA (diabetic ketoacidoses) ICD Codes: E13.10 - Other specified diabetes mellitus with ketoacidosis without coma SNOMED: 13659482, [id number] Assessment/Plan continue Levemir 18 units daily continue Novolog 4 units ac tid + NISS resume insulin pump therapy as OP Subjective Allergies: Coded Allergies: No Known Allergies (Unverified , 04/24/14) All Systems: reviewed and negative except above Subjective events noted Objective Last 24 Hour Vital Signs Date Time Temp Pulse Resp B/P (MAP) Pulse Ox O2 Delivery O2 Flow Rate FiO2 11/08/17 04:00 98.0 85 18 141/81 100 Room Air 98.0 11/08/17 00:40 Room Air 11/08/17 00:39 97.7 87 17 134/72 99 97.7 11/07/17 20:26 Room Air 11/07/17 20:25 98.2 86 18 148/79 98 98.2 11/07/17 16:00 98.1 90 18 161/92 100 98.1 11/07/17 12:00 98.1 86 19 149/76 98 98.1 11/07/17 09:58 88 139/81 11/07/17 08:00 97.7 88 20 139/81 97 97.7 Intake and Output 11/07/17 11/08/17 19:00 07:00 Intake Total 1750 ml 1400 ml Balance 1750 ml 1400 ml Intake Oral 750 ml 300 ml IV Total 1000 ml 1100 ml # Voids 6 4 Laboratory Tests 11/07/17 08:25: White Blood Count 4.9, Red Blood Count 3.44L, Hemoglobin 10.3L, Hematocrit 31.2L , Mean Corpuscular Volume 91, Mean Corpuscular Hemoglobin 29.8, Mean Corpuscular Hemoglobin Concent 33.0, Red Cell Distribution Width 13.7, Platelet Count 217, Mean Platelet Volume 8.3, Neutrophils (%) (Auto) 40.5L, Lymphocytes ( %) (Auto) 52.0H, Monocytes (%) (Auto) 4.4, Eosinophils (%) (Auto) 2.0, Basophils (%) (Auto) 1.1, Differential Total Cells Counted 100, Neutrophils % ( Manual) 40L, Lymphocytes % (Manual) 53H, Monocytes % (Manual) 4, Eosinophils % ( Manual) 2, Basophils % (Manual) 1, Band Neutrophils 0, Platelet Estimate Adequate, Platelet Morphology Normal, Hypochromasia 1+, Anisocytosis 1+, Erythrocyte Sedimentation Rate 31H, Reticulocyte Count 1.6, Prothrombin Time 9.4 , Prothromb Time International Ratio 0.9, Activated Partial Thromboplast Time 25 , Sodium Level 140, Potassium Level 3.8, Chloride Level 106, Carbon Dioxide Level 24, Anion Gap 10, Blood Urea Nitrogen 16, Creatinine 1.2, Estimat Glomerular Filtration Rate 58.7, Glucose Level 248H, Calcium Level 8.4L, Phosphorus Level 2.4L, Magnesium Level 1.7L, Iron Level 84, Total Iron Binding Capacity 250, Percent Iron Saturation 34, Unsaturated Iron Binding 166, Total Bilirubin 0.2, Aspartate Amino Transf (AST/SGOT) 14L, Alanine Aminotransferase ( ALT/SGPT) 26, Alkaline Phosphatase 78, Lactate Dehydrogenase 169, Total Protein 6.5, Albumin 2.7L, Globulin 3.8, Albumin/Globulin Ratio 0.7L, Carcinoembryonic Antigen [Pending], Vitamin B12 Level 800, Folate 13.6 11/07/17 09:00: Stool Occult Blood Negative Height (Feet): 5 Height (Inches): 3.00 Weight (Pounds): 130 General Appearance: no apparent distress Neck: normal alignment Cardiovascular: normal rate Respiratory/Chest: lungs clear Abdomen: normal bowel sounds Edema: no edema noted Arm (L), no edema noted Arm (R), no edema noted Leg (L), no edema noted Leg (R), no edema noted Pedal (L), no edema noted Pedal (R), no edema noted Generalized Objective Current Medications Medications (Trade) Dose Ordered Sig/Lizbeth Route PRN Reason Start Time Stop Time Status Last Admin Dose Admin Acetaminophen (Tylenol) 500 mg Q4H PRN ORAL Mild Pain/Temp > 100.5 11/06/17 11:45 12/06/17 11:44 11/06/17 11:40 Acetaminophen/ Hydrocodone Bitart ([place] 5/325) 1 tab Q4H PRN ORAL pain 4-10 11/06/17 12:45 11/13/17 12:44 11/06/17 13:01 Amlodipine Besylate (Norvasc) 10 mg DAILY ORAL 11/07/17 09:00 12/07/17 08:59 11/07/17 09:58 Clonidine HCl (Catapres Tab) 0.1 mg Q4H PRN ORAL For High Blood Pressure 11/05/17 21:45 12/05/17 21:44 Dextrose (Dextrose 50%) 25 ml STAT PRN IV Hypoglycemia 11/05/17 21:45 12/05/17 21:44 Dextrose (Dextrose 50%) 25 ml STAT PRN IV Hypoglycemia 11/07/17 18:30 12/07/17 18:29 Dextrose (Dextrose 50%) 50 ml STAT PRN IV Hypoglycemia 11/05/17 21:45 12/05/17 21:44 Dextrose (Dextrose 50%) 50 ml STAT PRN IV Hypoglycemia 11/07/17 18:30 12/07/17 18:29 Heparin Sodium (Porcine) (Heparin 5000 units/ml) 5,000 units EVERY 8 HOURS SUBQ 11/05/17 22:00 12/05/17 21:59 11/07/17 15:40 Insulin Aspart (NovoLOG) BEFORE MEALS AND HS SUBQ 11/05/17 23:30 12/05/17 23:29 11/08/17 06:03 Insulin Aspart (NovoLOG) 4 units NOVOTIAC SUBQ 11/08/17 06:30 12/08/17 06:29 11/08/17 06:04 Insulin Detemir (Levemir) 18 units DAILY SUBQ 11/06/17 14:00 12/06/17 13:59 11/07/17 10:00 Meloxicam (Mobic) 15 mg DAILY ORAL 11/07/17 09:00 12/07/17 08:59 11/07/17 09:58 Pantoprazole (Protonix) 40 mg DAILY ORAL 11/07/17 09:00 12/07/17 08:59 11/07/17 09:58 Pregabalin (Lyrica) 50 mg BID ORAL 11/07/17 09:00 12/07/17 08:59 11/07/17 17:55 Sodium Chloride 1,000 ml @ 100 mls/hr Q10H IV 11/05/17 23:30 12/05/17 23:29 11/08/17 00:07 Item Value Date Time Bedside Blood Glucose 133 mg/dl H 11/08/17 0630 Bedside Blood Glucose 211 mg/dl H 11/07/17 2110 Bedside Blood Glucose 130 mg/dl H 11/07/17 1658 Bedside Blood Glucose 278 mg/dl H 11/07/17 1201 Bedside Blood Glucose 386 mg/dl H 11/07/17 1000 Bedside Blood Glucose 386 mg/dl H 11/07/17 0638 IVY SULLIVAN November 08, 2017 06:44
[2017-11-08 07:42] LABS: HEMATOCRIT 29.6 % (37.0-47.0); HEMOGLOBIN 9.7 G/DL (12.0-16.0); MEAN CORPUSCULAR VOLUME 90 FL (80-99); PLATELET COUNT 218 K/UL (150-450); RED BLOOD COUNT 3.29 M/UL (4.20-5.40); RED CELL DISTRIBUTION WIDTH 13.7 % (11.6-14.8); WHITE BLOOD COUNT 5.1 K/UL (4.8-10.8)
[2017-11-08 08:00] VITALS: BP 139/84
[2017-11-08 08:00] LABS: ANION GAP 8 mmol/L (5-15); BLOOD UREA NITROGEN 16 mg/dL (7-18); CALCIUM 8.3 MG/DL (8.5-10.1); CARBON DIOXIDE 27 MMOL/L (21-32); CHLORIDE 107 MMOL/L (98-107); POTASSIUM 3.7 MMOL/L (3.5-5.1); SODIUM 142 MMOL/L (136-145)
[2017-11-08] MEDS: Lyrica 50mg cap ORAL SCH (08:41)
[2017-11-08] MEDS: Meloxicam 15 MG TAB ORAL SCH (08:41)
[2017-11-08] MEDS: Levemir Flexpen SUBQ SCH (08:42)
[2017-11-08 12:06] VITALS: BP 156/92
--- NOTE | 2017-11-08 14:55 | Pulmonology Progress Note ---
Assessment/Plan Problems: (1) Diabetes type 1, uncontrolled (2) GERD (gastroesophageal reflux disease) (3) Anemia (4) Non-compliance with treatment (5) CKD (chronic kidney disease) (6) Major depression (7) Diabetic gastroparesis Assessment/Plan sliding scale diabetic diet symptomatic treatment dvt pt wants to go home today, she will turn on her insulin pump Subjective ROS Limited/Unobtainable: No Constitutional: Reports: no symptoms HEENT: Repors: no symptoms Respiratory: Reports: no symptoms Allergies: Coded Allergies: No Known Allergies (Unverified , 04/24/14) Objective Last 24 Hour Vital Signs Date Time Temp Pulse Resp B/P (MAP) Pulse Ox O2 Delivery O2 Flow Rate FiO2 11/08/17 12:06 98.1 88 21 156/92 96 Room Air 98.1 11/08/17 08:40 87 139/84 11/08/17 08:00 98.1 87 20 139/84 96 Room Air 98.1 11/08/17 04:00 98.0 85 18 141/81 100 Room Air 98.0 11/08/17 00:40 Room Air 11/08/17 00:39 97.7 87 17 134/72 99 97.7 11/07/17 20:26 Room Air 11/07/17 20:25 98.2 86 18 148/79 98 98.2 11/07/17 16:00 98.1 90 18 161/92 100 98.1 Intake and Output 11/07/17 11/08/17 19:00 07:00 Intake Total 1750 ml 1500 ml Balance 1750 ml 1500 ml Intake Oral 750 ml 300 ml IV Total 1000 ml 1200 ml # Voids 6 4 General Appearance: WD/WN HEENT: normocephalic, atraumatic Respiratory/Chest: chest wall non-tender, normal breath sounds Breasts: no masses Cardiovascular: normal peripheral pulses Abdomen: normal bowel sounds, soft, non tender Extremities: no cyanosis, no clubbing 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 Microbiology Date/Time Source Procedure Growth Status 11/06/17 10:25 Urine,Clean Catch Urine Culture - Final Escherichia Coli Complete Laboratory Tests 11/08/17 06:00: White Blood Count 5.1, Red Blood Count 3.29L, Hemoglobin 9.7L, Hematocrit 29.6L , Mean Corpuscular Volume 90, Mean Corpuscular Hemoglobin 29.4, Mean Corpuscular Hemoglobin Concent 32.7, Red Cell Distribution Width 13.7, Platelet Count 218, Mean Platelet Volume 8.3, Neutrophils (%) (Auto) , Lymphocytes (%) ( Auto) , Monocytes (%) (Auto) , Eosinophils (%) (Auto) , Basophils (%) (Auto) , Differential Total Cells Counted 100, Neutrophils % (Manual) 36L, Lymphocytes % (Manual) 52H, Monocytes % (Manual) 5, Eosinophils % (Manual) 5H, Basophils % ( Manual) 1, Band Neutrophils 1, Platelet Estimate Adequate, Platelet Morphology Normal, Red Blood Cell Morphology Normal, Sodium Level 142, Potassium Level 3.7 , Chloride Level 107, Carbon Dioxide Level 27, Anion Gap 8, Blood Urea Nitrogen 16, Creatinine 1.0, Estimat Glomerular Filtration Rate > 60, Glucose Level 149#H , Calcium Level 8.3L Current Medications Medications (Trade) Dose Ordered Sig/Lizbeth Route PRN Reason Start Time Stop Time Status Last Admin Dose Admin Acetaminophen (Tylenol) 500 mg Q4H PRN ORAL Mild Pain/Temp > 100.5 11/06/17 11:45 12/06/17 11:44 11/06/17 11:40 Acetaminophen/ Hydrocodone Bitart ([place] 5/325) 1 tab Q4H PRN ORAL pain 4-10 11/06/17 12:45 11/13/17 12:44 11/06/17 13:01 Amlodipine Besylate (Norvasc) 10 mg DAILY ORAL 11/07/17 09:00 12/07/17 08:59 11/08/17 08:40 Clonidine HCl (Catapres Tab) 0.1 mg Q4H PRN ORAL For High Blood Pressure 11/05/17 21:45 12/05/17 21:44 Dextrose (Dextrose 50%) 25 ml STAT PRN IV Hypoglycemia 11/05/17 21:45 12/05/17 21:44 Dextrose (Dextrose 50%) 25 ml STAT PRN IV Hypoglycemia 11/07/17 18:30 12/07/17 18:29 Dextrose (Dextrose 50%) 50 ml STAT PRN IV Hypoglycemia 11/05/17 21:45 12/05/17 21:44 Dextrose (Dextrose 50%) 50 ml STAT PRN IV Hypoglycemia 11/07/17 18:30 12/07/17 18:29 Heparin Sodium (Porcine) (Heparin 5000 units/ml) 5,000 units EVERY 8 HOURS SUBQ 11/05/17 22:00 12/05/17 21:59 11/07/17 15:40 Insulin Aspart (NovoLOG) BEFORE MEALS AND HS SUBQ 11/05/17 23:30 12/05/17 23:29 11/08/17 12:19 Insulin Aspart (NovoLOG) 4 units NOVOTIAC SUBQ 11/08/17 06:30 12/08/17 06:29 11/08/17 12:22 Insulin Detemir (Levemir) 18 units DAILY SUBQ 11/06/17 14:00 12/06/17 13:59 11/08/17 08:42 Meloxicam (Mobic) 15 mg DAILY ORAL 11/07/17 09:00 12/07/17 08:59 11/08/17 08:41 Pantoprazole (Protonix) 40 mg DAILY ORAL 11/07/17 09:00 12/07/17 08:59 11/08/17 08:40 Pregabalin (Lyrica) 50 mg BID ORAL 11/07/17 09:00 12/07/17 08:59 11/08/17 08:41 Sodium Chloride 1,000 ml @ 100 mls/hr Q10H IV 11/05/17 23:30 12/05/17 23:29 11/08/17 11:30 Chapin Paredes MD November 08, 2017 14:55
--- NOTE | 2017-11-08 23:38 | Internal Med Progress Note ---
Subjective Physician Name Aries Hardin Attending Physician Aries Hardin MD Allergies: Coded Allergies: No Known Allergies (Unverified , 04/24/14) Subjective awake, alert, responsive, NAD Objective Last Vital Signs Date Time Temp Pulse Resp B/P (MAP) Pulse Ox O2 Delivery O2 Flow Rate FiO2 11/08/17 12:06 98.1 88 21 156/92 96 Room Air 98.1 Laboratory Tests Test 11/08/17 06:00 White Blood Count 5.1 K/UL (4.8-10.8) Red Blood Count 3.29 M/UL (4.20-5.40) L Hemoglobin 9.7 G/DL (12.0-16.0) L Hematocrit 29.6 % (37.0-47.0) L Mean Corpuscular Volume 90 FL (80-99) Mean Corpuscular Hemoglobin 29.4 PG (27.0-31.0) Mean Corpuscular Hemoglobin Concent 32.7 G/DL (32.0-36.0) Red Cell Distribution Width 13.7 % (11.6-14.8) Platelet Count 218 K/UL (150-450) Mean Platelet Volume 8.3 FL (6.5-10.1) Neutrophils (%) (Auto) % (45.0-75.0) Lymphocytes (%) (Auto) % (20.0-45.0) Monocytes (%) (Auto) % (1.0-10.0) Eosinophils (%) (Auto) % (0.0-3.0) Basophils (%) (Auto) % (0.0-2.0) Differential Total Cells Counted 100 Neutrophils % (Manual) 36 % (45-75) L Lymphocytes % (Manual) 52 % (20-45) H Monocytes % (Manual) 5 % (1-10) Eosinophils % (Manual) 5 % (0-3) H Basophils % (Manual) 1 % (0-2) Band Neutrophils 1 % (0-8) Platelet Estimate Adequate Platelet Morphology Normal Red Blood Cell Morphology Normal Sodium Level 142 MMOL/L (136-145) Potassium Level 3.7 MMOL/L (3.5-5.1) Chloride Level 107 MMOL/L (98-107) Carbon Dioxide Level 27 MMOL/L (21-32) Anion Gap 8 mmol/L (5-15) Blood Urea Nitrogen 16 mg/dL (7-18) Creatinine 1.0 MG/DL (0.55-1.30) Estimat Glomerular Filtration Rate > 60 mL/min (>60) Glucose Level 149 MG/DL (74-106) #H Calcium Level 8.3 MG/DL (8.5-10.1) L Microbiology Date/Time Source Procedure Growth Status 11/06/17 10:25 Urine,Clean Catch Urine Culture - Final Escherichia Coli Complete Intake and Output 11/07/17 11/08/17 19:00 07:00 Intake Total 1750 ml 1500 ml Balance 1750 ml 1500 ml Intake Oral 750 ml 300 ml IV Total 1000 ml 1200 ml # Voids 6 4 Objective General: No acute distress, awake and alert HEENT: NCAT, sclera anicteric, PERRL, EOMI. Neck: Supple, no significant jugular venous distention, Lungs: Good inspiratory effort, no accessory muscle use, clear to auscultation bilaterally, no Wheeze or Rales. Heart: Regular rate and rhythm, normal S1/S2, no murmurs Abdomen: soft, nontender, nondistended. Normoactive bowel sounds. / Rectal: Refused and deferred. Extremities: No Cyanosis , clubbing or edema. Neuro: A&O x 3, Able to move all extremities Skin: warm, no rashes or lesions Psych: Normal mood and affect Assessment/Plan Assessment/Plan (1) Diabetes type 1, uncontrolled (2) GERD (gastroesophageal reflux disease) (3) Anemia (4) Non-compliance with treatment (5) CKD (chronic kidney disease) (6) Major depression (7) Diabetic gastroparesis (8) UTI Plan: Monitor BS Insulin Pump DC home soon Aries Hardin MD November 08, 2017 23:38
--- NOTE | 2017-11-09 16:17 | Discharge Summary ---
Discharge Summary Discharge Summary _ DATE OF ADMISSION: 11/05/2017 DATE OF DISCHARGE: 11/08/2017 REASON FOR ADMISSION: 47 years old female with past medical history of hypertension, diabetes mellitus with history of diabetes ketoacidosis, chronic kidney disease, gastroparesis, presented to emergency department for evalaution. Vital signs revealed tachycardia 112, blood pressure was elevated 165/88. Laboratory workup revealed no leukocytosis. Hemoglobin 10.2, hematocrit 30.6. Glucose 821. Stable potassium. BUN 21 and creatinine 1.7. Chest x-ray revealed no acute cardiopulmonary pathology . Patient was using insulin pump off and on while at home. When was not using pump, was on Levemir and short-acting insulin pre-meal. Patient was admitted with diagnosis of acute renal failure, hyperglycemia diabetes mellitus type 1 out of control ,hypertension . CONSULTANTS: pulmonary/hyperbaric tech Dr. Paredes boot lace cutter machine Dr. Hayes [facility] COURSE: Patient admitted. Patient started on the aggressive IV hydration. Blood sugar was managed with long-acting Levemir and short-acting pre-meal NovoLog s well as sliding scale of insulin as needed. Clay Puddler closely follow. Blood sugar stabilized. Renal parameters and electrolytes were closely monitored. Nephrotoxins were avoided. Electrolytes were corrected as needed. Prior to discharge BUN down to 16 ,creatinine down to 1.0. Acute renal failure resolved, likely due to dehydration Blood pressure was managed with calcium channel ramona and remained stable. Patient was on DVT and GI prophylaxis. Pain management was addressed, and pain was controlled. Antiemetics were on board as needed , patient was able to tolerate diet. Anemia workup revealed stable iron ,B12 and folate, and was consistent with anemia of chronic disease. Stool for occult blood was negative. Hemoglobin and hematocrit remained at the baseline, no trend down. Urinalysis with evidence of UTI, urine culture revealed Escherichia coli. However patient reported no urinary complaints, no frequency, no burning on urination, no suprapubic pain, no leukocytosis, no fever, likely asymptomatic bacteriuria. No antibiotics were started, closely monitor and observe. Patient stabilized and was stable for discharge home. FINAL DIAGNOSES: Diabetes mellitus type 1 out of control Acute renal failure, resolved Hypertension Diabetic gastroparesis Anemia GERD Major depression DISCHARGE MEDICATIONS: See Medication Reconciliation list. DISCHARGE INSTRUCTIONS: Patient was discharged home. Encourage compliance with medication regimen. Follow up with primary care provider in one week I have been assigned to dictate discharge summary for this account. I was not involved in the patient's management. Jossy Guzman NP November 09, 2017 16:17
== END 2017-11-08 17:00 | disposition home or self-care (01) | DRG 638 ==
LOC: EDBEDREQ 16:11 → EMR 16:30 → 4W 16:33 → EDBEDREQ 17:00
DX: E10.65 Type 1 diabetes mellitus with hyperglycemia (principal); N17.9 Acute kidney failure, unspecified; E10.21 Type 1 diabetes mellitus with diabetic nephropathy; M25.512 Pain in left shoulder; M54.2 Cervicalgia; K21.9 Gastro-esophageal reflux disease without esophagitis; F32.9 Major depressive disorder, single episode, unspecified; I12.9 Hypertensive chronic kidney disease with stage 1 through stage 4 chronic kidney disease, or unspecified chronic kidney disease; N18.9 Chronic kidney disease, unspecified; E10.22 Type 1 diabetes mellitus with diabetic chronic kidney disease; Z96.41 Presence of insulin pump (external) (internal); E10.43 Type 1 diabetes mellitus with diabetic autonomic (poly)neuropathy; K31.84 Gastroparesis; R00.0 Tachycardia, unspecified; D63.1 Anemia in chronic kidney disease; Z91.14 Patient's other noncompliance with medication regimen; Z72.0 Tobacco use; Z79.4 Long term (current) use of insulin
CPT/HCPCS: 36415; 71045; 80048; 80053; 81003; 81025; 82270; 82378; 82607; 82746; 82962; 83540; 83550; 83615; 83690; 83735; 84100; 85007; 85025; 85044; 85060; 85610; 85651; 85730; 87086; 87181; 93005; 99285; J1815; S5561